=== PATIENT | female | born 1950 | race Caucasian/White ===

== ENCOUNTER → 2020-04-23 10:49 | Outpatient (BNVA) | payer MEDICARE, OTHER, SELFPAY | PROVIDERS: PCP Internal Medicine; Referring Provider Internal Medicine; Visit Provider Internal Medicine | DX: M81.0 Age-related osteoporosis without current pathological fracture (principal); E21.3 Hyperparathyroidism, unspecified; E04.2 Nontoxic multinodular goiter; E55.9 Vitamin D deficiency, unspecified | CPT/HCPCS: Q3014 ==

== ENCOUNTER 2020-04-24 13:07 | Outpatient (REF) | payer MEDICARE, OTHER, SELFPAY ==
[2020-04-24 15:12] LABS: Blood Urea Nitrogen 21 mg/dL (9-16); Calcium 9.2 mg/dL (8.4-10.2); Estimated Glomerular Filt Rate 49
[2020-04-24 15:36] LABS: Vitamin D 25-OH Total 39.5 ng/mL (>30)
[2020-04-25 20:37] LABS: Calcium (PTHI) 9.7 mg/dL (8.6-10.4); PTHI 46 pg/mL (14-64)
== END 2020-04-24 13:08 | disposition home or self-care (01) ==
LOC: HO.LAB 13:07
PROVIDERS: PCP Internal Medicine; Visit Provider Internal Medicine
DX: M81.0 Age-related osteoporosis without current pathological fracture (principal); E55.9 Vitamin D deficiency, unspecified
CPT/HCPCS: 82040; 82306; 82310; 82565; 83970; 84520

== ENCOUNTER 2020-05-16 15:36 | Outpatient (REF) | payer MEDICARE, OTHER, SELFPAY ==
--- NOTE | 2020-05-16 15:40 | MM_ITS ---
EXAMINATION: MM SCREENING DIGITAL BREAST TOMOSYNTHESIS, BILATERAL CLINICAL INFORMATION: Screening. Asymptomatic. The lifetime risk of breast cancer based on the Tyrer-Cuzick Model is 4.7%. COMPARISON: Mammography: May 11, 2019 and studies dating back to April 29, 2013 TECHNIQUE: Digital breast tomosynthesis is performed in both the craniocaudal and mediolateral oblique views along with computer-aided detection (CAD). Synthesized 2D images are generated from the tomosynthesis. FINDINGS: The breasts are extremely dense, which lowers the sensitivity of mammography (ACR BI-RADS breast composition Category d). There are no significant masses, abnormal calcifications, or other abnormalities. MM/MM tomosynthesis screening BI IMPRESSION: There are no significant changes from prior study. ASSESSMENT: BI-RADS 1: Negative RECOMMENDATION: Routine annual mammography screening. This patient's information was entered into a reminder system with a target due date for their next mammogram.
== END 2020-05-16 15:37 | disposition home or self-care (01) ==
LOC: HO.MAMMO 15:36
PROVIDERS: PCP Internal Medicine; Visit Provider Internal Medicine
DX: Z12.31 Encounter for screening mammogram for malignant neoplasm of breast (principal)
CPT/HCPCS: 77063; 77067

== ENCOUNTER 2020-05-21 12:10 | Outpatient (REF) | payer MEDICARE, OTHER, SELFPAY ==
[2020-05-21 13:12] LABS: Blood Urea Nitrogen 20 mg/dL (9-16); Estimated Glomerular Filt Rate 55
== END 2020-05-21 12:11 | disposition home or self-care (01) ==
LOC: HO.MDS 12:10
PROVIDERS: PCP Internal Medicine; Visit Provider Internal Medicine
DX: M81.0 Age-related osteoporosis without current pathological fracture (principal)
CPT/HCPCS: 82565; 84520; 96365; J3489

== ENCOUNTER 2020-10-18 10:48 | Outpatient (REF) | payer MEDICARE, OTHER, SELFPAY ==
[2020-10-18 11:32] LABS: MANUAL DIFF FLAG NO
[2020-10-18 11:36] LABS: Basophils Percent Auto 0.8 % (0-2); Eosinophils Absolute Auto 0.1 X10*3/uL (0.0-0.4); Eosinophils Percent Auto 1.6 % (0-4); Hematocrit 45.1 % (37-47); Hemoglobin 14.7 g/dl (12.0-16.0); Imm Gran Abs Auto 0.01 X10*3/uL (0.00-0.03); Imm Gran Pct Auto 0.2 % (0.0-0.4); Lymphocytes Absolute Auto 1.8 X10*3/uL (1.2-4.9); Lymphocytes Percent Auto 37.6 % (20-40); Mean Corpuscular HGB Conc 32.6 g/dl (31.0-35.0); Mean Corpuscular Hemoglobin 29.6 pg (27.0-33.0); Mean Corpuscular Volume 90.9 fL (80-98); Mean Platelet Volume 10.7 fL (9.4-12.3); Monocytes Absolute Auto 0.3 X10*3/uL (0.1-1.2); Monocytes Percent Auto 6.5 % (2-11); Neutrophils Absolute Auto 2.6 X10*3/uL (2.0-8.3); Neutrophils Percent Auto 53.3 % (45-73); Platelet Count 210 X10*3/uL (160-400); Red Blood Count 4.96 X10*6/uL (4.20-5.50); Red Cell Distribution Width 14.8 % (11.0-16.0); White Blood Count 4.9 X10*3/uL (4.8-10.8)
[2020-10-18 12:25] LABS: TSH reflex Free T4 3.83 uIU/mL (0.32-4.0)
[2020-10-18 12:27] LABS: Vitamin D 25-OH Total 35.7 ng/mL (>30)
[2020-10-18 12:40] LABS: Alanine Aminotransferase 26 U/L (0-31); Alkaline Phosphatase 75 U/L (39-117); Anion Gap 13 (12-20); Aspartate Amino Transferase 23 U/L (5-31); Bilirubin Total 0.5 mg/dL (0.0-1.0); Blood Urea Nitrogen 17 mg/dL (9-16); Calcium 9.9 mg/dL (8.4-10.2); Carbon Dioxide 29 mmol/L (22-29); Cholesterol 219 mg/dL; Estimated Glomerular Filt Rate 49; Glucose Fasting 90 mg/dL (60-99); HDL Cholesterol 58 mg/dL; LDL Cholesterol Calculated 132 mg/dl; Potassium 4.6 mmol/L (3.3-5.1); Sodium 140 mmol/L (135-145); Total Protein 7.2 g/dL (6.5-8.0); Triglycerides 145 mg/dL
[2020-10-18 12:45] LABS: Chloride 103 mmol/L (96-108); Folate > 20.0 ng/mL (> or = 4.0); Vitamin B12 1356 pg/mL (200-900)
[2020-10-19 14:22] LABS: Calcium (PTHI) 9.7 mg/dL (8.6-10.4); PTHI 51 pg/mL (14-64)
[2020-10-22 14:46] LABS: Vitamin D 25-OH, D2 <4 ng/mL; Vitamin D 25-OH, D3 40 ng/mL; Vitamin D 25-OH, Total 40 ng/mL (30-100)
== END 2020-10-18 10:49 | disposition home or self-care (01) ==
LOC: HO.LAB 10:48
PROVIDERS: Absent Provider Internal Medicine; PCP Internal Medicine; Visit Provider Internal Medicine
DX: D64.9 Anemia, unspecified (principal); M81.0 Age-related osteoporosis without current pathological fracture; E78.5 Hyperlipidemia, unspecified; E04.2 Nontoxic multinodular goiter; R53.83 Other fatigue; E55.9 Vitamin D deficiency, unspecified
CPT/HCPCS: 36415; 80053; 80061; 82306; 82607; 82746; 83970; 84100; 84443; 85025

== ENCOUNTER 2020-10-19 12:42 | Outpatient (REF) | payer MEDICARE, OTHER, SELFPAY ==
[2020-10-24 17:27] LABS: N-Telopeptide 13 (see note); NTXCreaRU 71 mg/dL (20-275)
== END 2020-10-19 12:43 | disposition home or self-care (01) ==
LOC: HO.LNP 12:42
PROVIDERS: Visit Provider Internal Medicine
DX: M81.0 Age-related osteoporosis without current pathological fracture (principal)
CPT/HCPCS: 82523

== ENCOUNTER → 2020-10-22 12:14 | Outpatient (BNVA) | payer MEDICARE, OTHER, SELFPAY | PROVIDERS: PCP Internal Medicine; Visit Provider Internal Medicine | DX: Z13.89 Encounter for screening for other disorder (principal) | CPT/HCPCS: Q3014 ==

== ENCOUNTER 2020-12-06 08:22 | Outpatient (REF) | payer MEDICARE, OTHER, SELFPAY ==
--- NOTE | ~2020-12-06 | US_ITS ---
EXAMINATION: US COMPLETE ABDOMEN WITH LIVER ELASTOGRAPHY CLINICAL INFORMATION: Abdominal distention COMPARISON: Previous CT of the abdomen and pelvis June 2018 TECHNIQUE: Real-time imaging of the abdominal viscera. Noninvasive ultrasound liver fibrosis assessment is performed using Sophia ElastPQ point quantification shear wave elastography (pSWE) with a C5-2 MHz transducer. Multiple elastography samples are obtained. FINDINGS: PANCREAS: The visualized pancreatic head and body are normal in appearance. The remainder of the pancreas is obscured from visualization by the overlying bowel gas. ABDOMINAL AORTA: The proximal, middle, and distal aortic segments are normal in caliber. INFERIOR VENA CAVA: Visualized portions are normal. LIVER: Normal. The liver demonstrates normal size, contour and echogenicity. No focal lesion or intrahepatic biliary duct dilatation. The right lobe measures 13.6 cm in length. The left lobe measures 8.5 cm in length. Portal flow is normal/hepatopedal. Shear wave liver elastography median stiffness is 1.2 m/s (reference: normal median stiffness is 1.3 m/s or less). IQR/median stiffness to assess sampling precision is 0.2 (reference: good quality data set is IQR/median stiffness of 0.15 or less). GALLBLADDER: Normal. The gallbladder is physiologically distended without evidence of stones, sludge, polyps, wall thickening or pericholecystic fluid. COMMON BILE DUCT: Normal in caliber measuring 0.4 cm in diameter. RIGHT KIDNEY: There is renal cortical thinning. There are multiple echogenic foci questionable for cyst wall interfaces 4 microcystic kidney disease.. The kidney measures 8.7 cm in maximum dimension. LEFT KIDNEY: There is renal cortical thinning. There are multiple echogenic foci questionable for cyst wall interfaces or microcystic kidney disease. The kidney measures 9.2 cm in maximum dimension. SPLEEN: Normal. The spleen measures 7.6 cm in maximum dimension. FREE FLUID: None. US/US abdomen comp w elastography IMPRESSION: 1. Impression: Normal-appearing liver. Small kidneys with bilateral renal cortical thinning and question microcystic kidney disease. Limited visualization of the pancreas. 2. Liver elastography: Slightly limited due to sampling. Normal liver stiffness. REFERENCE: Society of Radiologists in Ultrasound Liver Stiffness Thresholds (2020): LIVER STIFFNESS THRESHOLDS: *Liver Stiffness equal or less than 1.3 m/s: High probability of being normal. *Liver Stiffness less than 1.7 m/s: In the absence of other known clinical signs, rules out compensated advanced chronic liver disease. *Liver Stiffness 1.7-2.1 m/s: Suggestive of compensated advanced chronic liver disease but need further test for confirmation. *Liver Stiffness over 2.1 m/s: Rules in compensated advanced chronic liver disease. *Liver Stiffness over 2.4 m/s: Suggestive of clinically significant portal hypertension. QUALITY OF DATA SET: *IQR/Median value equal or less than 0.15 implies a quality data set. *IQR/Median value over 0.15 implies a poor quality data set. SIGNIFICANT CHANGE FROM PRIOR EXAM: Significant change if liver stiffness measurement is 10% or greater from prior exam. OTHER CONSIDERATIONS: The stage of liver fibrosis may be overestimated in the setting of acute hepatitis, liver inflammation, elevated liver function tests, hepatic vascular congestion, obstructive cholestasis, non-fasting state, and infiltrative diseases such as amyloidosis and lymphoma. In some patients with NAFLD, the liver stiffness thresholds for compensated advanced chronic liver disease may be lower. In causes other than viral hepatitis and NAFLD, liver stiffness thresholds are not well established.
== END 2020-12-06 08:23 | disposition home or self-care (01) ==
LOC: HO.US 08:22
PROVIDERS: Visit Provider Internal Medicine
DX: R14.0 Abdominal distension (gaseous) (principal)
CPT/HCPCS: 76705; 76981

== ENCOUNTER 2021-01-03 12:39 | Outpatient (REF) | payer MEDICARE, OTHER, SELFPAY ==
--- NOTE | ~2021-01-03 | MM_ITS ---
EXAMINATION: BONE DENSITOMETRY CLINICAL INDICATION: Age-related osteoporosis without current pathological fracture. Vertebral augmentation L2. COMPARISON: Previous BD dated 03/16/2018 and baseline BD dated 01/05/2000. CT lumbar spine 07/09/2018. TECHNIQUE: Using a [employer] DXA System (software version: 13.1) manufactured by [employer], dual-energy x-ray absorptiometry was performed of the lumbar spine and left hip. The images are of good technical quality. Summary results are attached. FINDINGS: AP SPINE L1-L4 (excluding L2): The data of L1-L4 has been changed to exclude the L2 vertebral body, because vertebral augmentation at this level may cause overestimation of lumbar spine density. Current: BMD 1.048 g/cm2, Z-score 0.4, T-score -1.0, normal, 11.1% increase from previous, 2.1% increase from baseline (<5% change is not significant). Prior: BMD 0.943 g/cm2. Baseline: BMD 1.026 g/cm2. LEFT FEMUR, NECK: Current: BMD 0.611 g/cm2, Z-score -1.6, T-score -3.1, osteoporosis. Prior: BMD 0.538 g/cm2. Baseline: BMD 0.602 g/cm2. LEFT FEMUR, TOTAL: Current: BMD 0.768 g/cm2, Z-score -0.7, T-score -1.9, osteopenia, 4.8% increase from previous, 0.4% decrease from baseline (<5% change is not significant). Prior: BMD 0.733 g/cm2. Baseline: BMD 0.771 g/cm2. IDENTIFIED RISK FACTORS: Osteoporosis, menopause. HISTORY OF FRACTURE: None listed. MEDICATIONS: None listed. MM/XR DEXA axial skeleton IMPRESSION: 1. DIAGNOSIS: Osteoporosis based on the lowest T-score value of -3.1 in the femoral neck applying World Health Organization criteria. 2. 10-YEAR FRACTURE RISK PREDICTION, FRAX: Major osteoporotic fracture (clinical spine, forearm, hip or shoulder) 10.4%. Hip fracture 3.3%. 3. Treatment Recommendations: NOF guidelines recommend consideration for treatment in postmenopausal women and men age 50 and older presenting with the following: -A hip or vertebral (clinical or morphometric) fracture. -T-score less than or equal to -2.5 at the femoral neck or spine after appropriate evaluation to exclude secondary causes. -Low bone mass at the hip or spine and a 10-year fracture probability by FRAX of greater than or equal to 3% for hip fracture or greater than or equal to 20% for major osteoporotic fracture based on the [place] adapted WHO algorithm. 4. Other Recommendations: All treatment decisions require clinical judgment and consideration of individual patient factors, including patient preferences, comorbidities, previous drug use, risk factors not captured in the FRAX model (e.g. frailty, falls, vitamin D deficiency, increased bone turnover, interval significant decline in bone density) and possible under or overestimation of fracture risk by FRAX. Additional medical evaluation for secondary cause of low bone mineral density may be appropriate. FUTURE SCAN RECOMMENDATION: People with diagnosed cases of osteoporosis or at high risk for fracture should have regular bone mineral density tests. For patients eligible for Medicare, routine testing is allowed once every 2 years. The testing frequency can be increased to one year for patients who have rapidly progressing disease, those who are receiving or discontinuing medical therapy to restore bone mass, or have additional risk factors.
== END 2021-01-03 12:40 | disposition home or self-care (01) ==
LOC: HO.MAMMO 12:39
PROVIDERS: Visit Provider Internal Medicine
DX: Z13.820 Encounter for screening for osteoporosis (principal); M81.0 Age-related osteoporosis without current pathological fracture; Z78.0 Asymptomatic menopausal state
CPT/HCPCS: 77080

== ENCOUNTER 2021-01-11 13:38 | Emergency (ER) | payer MEDICARE, OTHER, SELFPAY ==
--- NOTE | ~2021-01-11 | CT_ITS ---
EXAMINATION: CT BRAIN AND CT CERVICAL SPINE WITHOUT CONTRAST. CLINICAL INFORMATION: Fall, pain left side. Headache COMPARISON: None TECHNIQUE: 5 mm thin axial and reformatted 2 mm thin sagittal and coronal images of brain were obtained. Subsequently axial 3 mm thin and reformatted 2 mm thin sagittal and coronal images of cervical spine were obtained. DLP 955. FINDINGS: Brain: There is no acute intra-axial, extra-axial bleed, masses or midline shift. There is no acute infarct in evolution. There is a punctate right basal ganglia lacunar infarct of indeterminate age. The lateral ventricles are symmetrical in size and configuration without enlargement. The [place] to white matter differentiation is maintained normal. There is mild hypodensity in the periventricular white matter of both frontal lobes likely chronic small vessel ischemic changes. Bone windows reveal no calvarial abnormality. Bilateral paranasal sinuses and mastoid air cells are well-aerated. Cervical spine: There is normal cervical lordosis. The vertebral heights, alignment and disc heights are normal. The craniovertebral junction and the C1-C2 alignment is normal. There is no visible acute fracture, dislocation or lytic process seen. The prevertebral and paravertebral soft tissues are normal. A prominent left external jugular vein is noted. The left jugular vein is small and hypoblastic. There is mild left apical scarring or atelectasis. CT/CT cervical spine wo con IMPRESSION: No acute intracranial process seen. There is no acute fracture, dislocation or subluxation in cervical spine. Mild left apical pleural thickening.
--- NOTE | ~2021-01-11 | CT_ITS ---
EXAMINATION: CT BRAIN AND CT CERVICAL SPINE WITHOUT CONTRAST. CLINICAL INFORMATION: Fall, pain left side. Headache COMPARISON: None TECHNIQUE: 5 mm thin axial and reformatted 2 mm thin sagittal and coronal images of brain were obtained. Subsequently axial 3 mm thin and reformatted 2 mm thin sagittal and coronal images of cervical spine were obtained. DLP 955. FINDINGS: Brain: There is no acute intra-axial, extra-axial bleed, masses or midline shift. There is no acute infarct in evolution. There is a punctate right basal ganglia lacunar infarct of indeterminate age. The lateral ventricles are symmetrical in size and configuration without enlargement. The medina to white matter differentiation is maintained normal. There is mild hypodensity in the periventricular white matter of both frontal lobes likely chronic small vessel ischemic changes. Bone windows reveal no calvarial abnormality. Bilateral paranasal sinuses and mastoid air cells are well-aerated. Cervical spine: There is normal cervical lordosis. The vertebral heights, alignment and disc heights are normal. The craniovertebral junction and the C1-C2 alignment is normal. There is no visible acute fracture, dislocation or lytic process seen. The prevertebral and paravertebral soft tissues are normal. A prominent left external jugular vein is noted. The left jugular vein is small and hypoblastic. There is mild left apical scarring or atelectasis. CT/CT head/brain wo con IMPRESSION: No acute intracranial process seen. There is no acute fracture, dislocation or subluxation in cervical spine. Mild left apical pleural thickening.
[2021-01-11 13:57] VITALS: BP 122/82; BP 135/85; PULSE 92; PULSE 95; RESP 16; TEMP 36.6; O2SAT 96; BMI 32.1
--- NOTE | 2021-01-11 14:01 | ED_ITS ---
HPI - Fall General Chief Complaint: Fall Stated Complaint: M Fall Head lac Time Seen by Provider: 01/11/21 14:00 Source: patient and EMS Mode of arrival: EMS Limitations: no limitations History of Present Illness HPI Narrative: 70 y/o female with history of depression and osteoporosis presents to the ED from home via EMS with headache and laceration after she sustained a mechanical fall at home just [employer]. She reports tripping on the grass, falling down and hitting the left side of her head on a cement block in her yard. She reports a laceration that was bleeding initially but has since stopped. She did not lose consciousness. She is not blood thinners. She did not sustain any other injuries. She was able to get up after the fall. MD complaint: fall Onset (ago): minute(s) (30) Fall from: standing Fall witnessed: yes, by bystander Place fall occurred: home Loss of consciousness: none Prolonged down time: no Symptoms prior to fall: none Context: tripped/slipped Location of injury: head Severity: moderate Quality: aching Associated symptoms (after fall): headache Related Data Home Medications Medication Instructions Recorded Confirmed donepezil 5 mg tablet 5 mg PO BEDTIME 04/23/20 10/29/20 memantine 5 mg tablet 5 mg PO BID 04/23/20 10/29/20 doxepin 25 mg capsule 75 mg PO BEDTIME cap 10/22/20 10/29/20 lorazepam 0.5 mg tablet 1 mg PO TID PRN tab 10/22/20 10/29/20 thiamine HCl (vitamin B1) 100 mg 100 mg PO BID tab 10/22/20 10/29/20 tablet vortioxetine 10 mg tablet 20 mg PO DAILY tab 10/22/20 10/29/20 (Trintellix) zolpidem 5 mg tablet 12.5 mg PO BEDTIME PRN tab 10/22/20 10/29/20 Previous Rx's Medication Instructions Recorded zoledronic acid 5 mg/100 mL in See Rx Instructions IV ONCE #100 ml 04/26/20 mannitol 5 %-water intravenous piggybck (Reclast) nystatin 100,000 unit/gram topical 1 appl TOPICAL DAILY 30 Days #30 g 06/04/20 cream Allergies Allergy/AdvReac Type Severity Reaction Status Date / Time risperidone [From Risperdal] Allergy Intermediate UNKNOWN Verified 10/29/20 13:59 Sulfa (Sulfonamide Allergy Intermediate rash Verified 10/29/20 13:59 Antibiotics) From BENADRYL Allergy Intermediate DIZZY Uncoded 10/29/20 13:59 Review of Systems Constitutional: Constitutional: Denies chills, Denies fever(s), Denies frequent falls and Reports headache(s) Eyes: Eyes: Denies no additional eye complaints ENT: Denies vertigo, Denies dizziness, Reports headache(s), Denies mouth pain and Denies neck pain Cardiovascular: Cardiovascular: Denies chest pain and Denies syncope Respiratory: Respiratory: Denies cough and Denies pain on inspiration Gastrointestinal: Gastrointestinal: Denies abdominal pain, Denies nausea and Denies vomiting Musculoskeletal: Musculoskeletal: Denies back pain, Denies myalgias, Denies arthralgias, Denies limited range of motion and Denies neck pain Integumentary/Breasts: Skin/Breast: Denies lesions Neurologic: Denies confusion, Denies vertigo, Denies dizziness, Denies syncope, Denies frequent falls, Reports headache(s), Denies focal weakness and Denies memory loss Psychiatric: Psychiatric: Denies confusion and Denies memory loss Hematologic/Lymphatic: Hematologic/Lymphatic: Denies easy bleeding and Denies easy bruising PMFSH Past Medical History Attestation statement: The following information was validated with the patient. Medical History Abdominal distention Depression with anxiety Hyperparathyroidism Multinodular thyroid Osteoporosis Vitamin D deficiency Weight gain Surgical History Hx of section Hx of colonoscopy Hx of kyphoplasty Family History Family History Father Myocardial infarction CVD (cardiovascular disease) Mother Dementia Alzheimer disease Social History Social History Alcohol intake: never Advance Directives: No Advance Directives Information Provided: Yes Physical Exam Vital Signs: Vital Signs: Last Vital Signs Temp 98 F 01/11/21 13:57 Pulse 95 01/11/21 13:57 Resp 16 01/11/21 13:57 BP 135/85 01/11/21 13:57 Pulse Ox 96 01/11/21 13:57 Body Mass Index 32.1 Appearance: Alert. Oriented X3. No acute distress. Head: normocephalic, 1.5 cm laceration in the left parietal area without active bleeidng, no palpable skull fracture. Eyes: Pupils equal, round and reactive to light. EOMI, no nystagmus, no facial deformity, no tenderness ENT: Pharynx normal. Neck: Normal inspection. Neck supple. CVS: Normal heart rate and rhythm. Pulses normal. Respiratory: No respiratory distress. Breath sounds normal. Abdomen: Soft and nontender. +BS x4 Skin: Skin warm and dry. Normal skin color. Normal skin turgor. No rashes. Extremities: Atraumatic. No joint deformity or tenderness. pelvis is stable and nontender. No lower extremity edema. Neuro: Oriented X 3. No motor deficit. No sensory deficit. Const: General: No confusion Orientation/consciousness: No confusion Neuro: General: No confusion Course Course Course Narrative: 70 y/o female presenting with left sided headache and small scalp laceration s/p mechanical fall. Will require a few nell for closure. She is not on anticoagulation, however given headache will get CT head/neck to r/o traumatic injury. No other injuries or complaints. Reevaluation(s) Reevaluation #1: CT scan without acute traumatic injuries. C-spine cleared. No neck pain. She is stable for d/c home with outpatient follow up. Wound care d iscussed. Procedures Laceration Laceration 1: Site: scalp Side (If applicable): left Size (cm): 3 Description: linear Depth: simple, single layer Pre-repair: irrigated extensively Skin layer closed with: other (3 nell) MDM - Fall Medical Records Attestation: I reviewed the patient's medical records. Critical Care Time Critical Care Time Critical Care Time: No Discharge Plan Discharge Clinical Impression: Laceration of scalp Qualifiers: Encounter type: initial encounter Qualified Code(s): S01.01XA - Laceration without foreign body of scalp, initial encounter Fall Qualifiers: Encounter type: initial encounter Qualified Code(s): W19.XXXA - Unspecified fa ll, initial encounter Patient Disposition: Home, Self-Care Instructions: Fall Prevention for Older Adults (ED), Staple Care (ED), Head Laceration (ED) Additional Instructions: Your CT scans were normal. 3 nell were placed to close the small wound on your scalp. They will need to be removed in 10 days. Come back to the ER for this or see your doctor. Take tylenol and/or motrin as needed for pain. Use ice to the area several times per day as needed for pain. If you develop new or worsening symptoms call 911 or come back to the ER for further evaluation. Prescriptions: No Action zoledronic [id number] [Reclast] 5 mg/100 mL piggyback See Rx Instructions IV ONCE Qty: 100 RF: 0 nystatin 100,000 unit/gram cream 1 appl topical DAILY 30 Days Qty: 30 RF: 1 thiamine HCl (vitamin B1) 100 mg tablet 100 mg PO BID RF: 0 doxepin 25 mg capsule 75 mg PO BEDTIME RF: 0 donepezil 5 mg tablet 5 mg PO BEDTIME RF: 0 memantine 5 mg tablet 5 mg PO BID RF: 0 lorazepam 0.5 mg tablet 1 mg PO TID PRNRF: 0 Trintellix 10 mg tablet 20 mg PO DAILY RF: 0 zolpidem 5 mg tablet 12.5 mg PO BEDTIME PRNRF: 0
[2021-01-11] MEDS: Diphth,Pertus(ACell),Tet Adult 0.5 ML SYRINGE IM (15:59)
== END 2021-01-11 16:06 | disposition home or self-care (01) ==
PROVIDERS: Emergency Provider Emergency Medicine Emergency Medical Services; PCP Internal Medicine
DX: S01.01XA Laceration without foreign body of scalp, initial encounter (principal); R51.9 Headache, unspecified; W01.198A Fall on same level from slipping, tripping and stumbling with subsequent striking against other object, initial encounter; Y93.9 Activity, unspecified; Y92.096 Garden or yard of other non-institutional residence as the place of occurrence of the external cause; Y99.9 Unspecified external cause status
CPT/HCPCS: 12002; 70450; 72125; 90471; 90715; 99283; 99284

== ENCOUNTER 2021-01-14 14:53 | Outpatient (REF) | payer MEDICARE, OTHER, SELFPAY ==
--- NOTE | ~2021-01-14 | US_ITS ---
EXAMINATION: US THYROID CLINICAL INFORMATION: Nontoxic multinodular goiter. COMPARISON: Ultrasound soft tissue head/neck thyroid dated 01/24/2020 and 12/15/2018. TECHNIQUE: Linear transducer grayscale and color Doppler examination with attention to the region of the thyroid. FINDINGS: SIZE: Measurements of the thyroid lobes and nodules are given in sagittal, anteroposterior and transverse dimensions respectively. Right Thyroid Lobe: 4.0 x 1.3 x 1.4 cm, volume 3.9 mL. Previously 3.8 x 1.1 x 1.3 cm, volume 2.9 mL. Parenchyma: The gland echotexture is homogeneous. Thyroid vascularity is normal. Left Thyroid Lobe: 3.0 x 1.1 x 1.5 cm, volume 2.5 mL. Previously 3.7 x 1.3 x 1.3 cm, volume 3.4 mL. Parenchyma: The gland echotexture is homogeneous. Thyroid vascularity is normal. Isthmus: 0.26 cm in maximum AP dimension. Previously 0.2 cm. Estimated total number of nodules greater than or equal to 1 cm: 0. [employer] nodules are described as follows: 1. Location: Right inferior. Size: 0.16 x 0.13 x 0.20 cm, volume 0.002 mL. Previously: 0.2 x 0.2 x 0.2 cm, volume 0.004 mL. Nodule characteristics: Composition: Cystic(0). ACR TI-RADS total points: 0 Previous: n/a ACR TI-RADS category: 1 Previous: n/a Significant change in size (>/= 20% in 2 dimensions and minimal increase of 2 mm or 50% or greater increase in volume): No Change in features: No Change in ACR TI-RADS risk category: No NODES: No lymphadenopathy is seen in the tissue surrounding the thyroid gland. US/US thyroid IMPRESSION: 1. There is a normal-sized thyroid gland with normal echogenicity and echotexture. 2. There is no significant change in the right inferior thyroid nodule. TR1. ACR TI-RADS RECOMMENDATION REFERENCE: Ultrasound-guided fine-needle aspiration, followup ultrasound, no further follow up. * TR1 (0 point) and TR 2 (2 points): No FNA or follow up * TR3 (3 points): FNA if more than or equal to 2.5 cm in maximum dimension, followup ultrasound in 1, 3 and 5 years if 1.5 to 2.4 cm in maximum dimension. * TR4 (4-6 points): FNA if more than or equal to 1.5 cm in maximum dimension, followup ultrasound in 1, 2, 3 and 5 years if 1 to 1.4 cm in maximum dimension. * TR5 (more than or equal to 7 points): FNA if more than or equal to 1 cm in maximum dimension, followup ultrasound every year for 5 years if 0.5 to 0.9 cm in maximum dimension. * TR3, TR4 or TR5 nodules that are below the size threshold for follow up receive no follow up.
== END 2021-01-14 14:54 | disposition home or self-care (01) ==
LOC: HO.US 14:53
PROVIDERS: Visit Provider Internal Medicine
DX: E04.2 Nontoxic multinodular goiter (principal)
CPT/HCPCS: 76536

== ENCOUNTER → 2021-05-07 11:45 | Outpatient (REF) | payer MEDICARE, OTHER, SELFPAY ==
--- NOTE | 2021-05-07 11:52 | ECG_ITS ---
Test Reason : on cloxepin Blood Pressure : / mmHG Vent. Rate : 076 BPM Atrial Rate : 076 BPM P-R Int : 156 ms QRS Dur : 076 ms QT Int : 364 ms P-R-T Axes : 064 027 052 degrees QTc Int : 409 ms Normal sinus rhythm Normal ECG When compared with ECG of 04-MAR-2019 12:41, T wave amplitude has decreased in Lateral leads Referred By: Broderick Willett Electronically Signed By:BRENDA GRIFFIN MD
[2021-05-07 14:32] LABS: Alanine Aminotransferase 27 U/L (0-31); Albumin Level 3.9 g/dL (3.5-5.0); Alkaline Phosphatase 77 U/L (39-117); Anion Gap 13 (12-20); Aspartate Amino Transferase 23 U/L (5-31); Bilirubin Total 0.4 mg/dL (0.0-1.0); Blood Urea Nitrogen 15 mg/dL (9-16); Calcium 9.7 mg/dL (8.4-10.2); Carbon Dioxide 25 mmol/L (22-29); Chloride 104 mmol/L (96-108); Estimated Glomerular Filt Rate 48; Glucose Random 109 mg/dL (60-115); Phosphorus 2.9 mg/dL (2.7-4.5); Potassium 4.2 mmol/L (3.3-5.1); Sodium 138 mmol/L (135-145); Total Protein 7.1 g/dL (6.5-8.0)
[2021-05-07 14:38] LABS: Free T4 (Free Thyroxine) 0.89 ng/dL (0.71-1.85); Thyroid Stimulating Hormone 4.92 uIU/mL (0.32-4.0); Vitamin D 25-OH Total 37.2 ng/mL (>30)
[2021-05-08 13:41] LABS: Calcium (PTHI) 9.4 mg/dL (8.6-10.4); PTHI 39 pg/mL (14-64)
== END ==
LOC: HO.CARD 11:45
PROVIDERS: Absent Provider Psychiatry & Neurology Psychiatry; PCP Internal Medicine; Visit Provider Internal Medicine
DX: F33.41 Major depressive disorder, recurrent, in partial remission (principal); M81.0 Age-related osteoporosis without current pathological fracture; E04.2 Nontoxic multinodular goiter; E55.9 Vitamin D deficiency, unspecified; Z79.899 Other long term (current) drug therapy
CPT/HCPCS: 36415; 80053; 82306; 83970; 84100; 84439; 84443; 93005

== ENCOUNTER 2021-05-08 14:02 | Outpatient (REF) | payer MEDICARE, OTHER, SELFPAY ==
[2021-05-14 06:11] LABS: N-Telopeptide 10 (see note); NTXCreaRU 63 mg/dL (20-275)
== END 2021-05-08 14:03 | disposition home or self-care (01) ==
LOC: HO.LNP 14:02
PROVIDERS: Visit Provider Internal Medicine
DX: M81.0 Age-related osteoporosis without current pathological fracture (principal)
CPT/HCPCS: 82523

== ENCOUNTER 2021-05-21 13:24 | Outpatient (REF) | payer MEDICARE, OTHER, SELFPAY ==
--- NOTE | ~2021-05-21 | MM_ITS ---
EXAMINATION: MM SCREENING DIGITAL BREAST TOMOSYNTHESIS, BILATERAL CLINICAL INFORMATION: Screening. Asymptomatic. The lifetime risk of breast cancer based on the Tyrer-Cuzick Model is 4%. COMPARISON: Mammography: 05/16/2020, 05/11/2019, 03/20/2017 TECHNIQUE: Digital breast tomosynthesis is performed in both the craniocaudal and mediolateral oblique views along with computer-aided detection (CAD). Synthesized 2D images are generated from the tomosynthesis. FINDINGS: The breasts are heterogeneously dense, which may obscure small masses (ACR BI-RADS breast composition Category c). There are no significant masses, abnormal calcifications, or other abnormalities. Parenchymal pattern is similar to prior studies. No developing density. No significant changes. MM/MM tomosynthesis screening BI IMPRESSION: No mammographic evidence of malignancy. ASSESSMENT: BI-RADS 1: Negative RECOMMENDATION: Routine annual mammography screening. This patient's information was entered into a reminder system with a target due date for their next mammogram.
== END 2021-05-21 13:25 | disposition home or self-care (01) ==
LOC: HO.MAMMO 13:24
PROVIDERS: Visit Provider Internal Medicine
DX: Z12.31 Encounter for screening mammogram for malignant neoplasm of breast (principal)
CPT/HCPCS: 77063; 77067

== ENCOUNTER → 2021-06-05 12:43 | Outpatient (BNVA) | payer MEDICARE, OTHER, SELFPAY | PROVIDERS: PCP Internal Medicine; Visit Provider Internal Medicine | DX: Z13.89 Encounter for screening for other disorder (principal) | CPT/HCPCS: Q3014 ==

== ENCOUNTER 2021-07-19 13:51 | Outpatient (REF) | payer MEDICARE, OTHER, SELFPAY ==
[2021-07-19 15:25] LABS: Alanine Aminotransferase 29 U/L (0-31); Albumin Level 3.9 g/dL (3.5-5.0); Alkaline Phosphatase 75 U/L (39-117); Anion Gap 12 (12-20); Aspartate Amino Transferase 24 U/L (5-31); Bilirubin Total 0.4 mg/dL (0.0-1.0); Blood Urea Nitrogen 16 mg/dL (9-16); Calcium 9.7 mg/dL (8.4-10.2); Carbon Dioxide 24 mmol/L (22-29); Chloride 106 mmol/L (96-108); Estimated Glomerular Filt Rate 56; Glucose Random 120 mg/dL (60-115); Potassium 4.2 mmol/L (3.3-5.1); Sodium 138 mmol/L (135-145); Total Protein 7.2 g/dL (6.5-8.0)
[2021-07-19 15:29] LABS: Phosphorus 2.6 mg/dL (2.7-4.5)
[2021-07-19 15:47] LABS: Free T4 (Free Thyroxine) 0.94 ng/dL (0.71-1.85); Vitamin D 25-OH Total 33.5 ng/mL (>30)
[2021-07-23 13:56] LABS: Calcium (PTHI) 9.8 mg/dL (8.6-10.4); PTHI 50 pg/mL (14-64)
== END 2021-07-19 13:52 | disposition home or self-care (01) ==
LOC: HO.LAB 13:51
PROVIDERS: PCP Internal Medicine; Visit Provider Internal Medicine
DX: E55.9 Vitamin D deficiency, unspecified (principal); M81.0 Age-related osteoporosis without current pathological fracture; E03.9 Hypothyroidism, unspecified; E04.2 Nontoxic multinodular goiter
CPT/HCPCS: 36415; 80053; 82306; 83970; 84075; 84100; 84439; 84443

== ENCOUNTER 2021-07-20 09:48 | Outpatient (REF) | payer MEDICARE, OTHER, SELFPAY ==
[2021-07-24 17:45] LABS: N-Telopeptide 7 (see note); NTXCreaRU 41 mg/dL (20-275)
== END 2021-07-20 09:49 | disposition home or self-care (01) ==
LOC: HO.LNP 09:48
PROVIDERS: Visit Provider Internal Medicine
DX: E55.9 Vitamin D deficiency, unspecified (principal)
CPT/HCPCS: 82523

== ENCOUNTER → 2021-08-08 13:10 | Outpatient (BNVA) | payer MEDICARE, OTHER, SELFPAY | PROVIDERS: PCP Internal Medicine; Visit Provider Internal Medicine | DX: Z13.89 Encounter for screening for other disorder (principal) ==

== ENCOUNTER 2021-09-30 10:48 | Outpatient (REF) | payer MEDICARE, OTHER, SELFPAY ==
[2021-09-30 12:00] LABS: Estimated Average Glucose 120 mg/dL; Hemoglobin A1C 150.4791 umol/L; Hemoglobin A1c % 5.8 %
[2021-09-30 12:35] LABS: Cholesterol 226 mg/dL; Glucose Fasting 94 mg/dL (60-99); HDL Cholesterol 54 mg/dL; LDL Cholesterol Calculated 143 mg/dl; Triglycerides 149 mg/dL
== END 2021-09-30 10:49 | disposition home or self-care (01) ==
LOC: HO.LAB 10:48
PROVIDERS: PCP Internal Medicine; Visit Provider Nurse Practitioner Family
DX: Z00.00 Encounter for general adult medical examination without abnormal findings (principal); E11.9 Type 2 diabetes mellitus without complications; R63.5 Abnormal weight gain; E78.00 Pure hypercholesterolemia, unspecified
CPT/HCPCS: 36415; 80061; 82947; 83036

== ENCOUNTER 2021-10-29 11:45 | Outpatient (REF) | payer MEDICARE, OTHER, SELFPAY ==
[2021-10-29 13:51] LABS: Free T4 (Free Thyroxine) 1.01 ng/dL (0.71-1.85); Thyroid Stimulating Hormone 1.55 uIU/mL (0.32-4.0)
== END 2021-10-29 11:46 | disposition home or self-care (01) ==
LOC: HO.LAB 11:45
PROVIDERS: PCP Internal Medicine; Visit Provider Internal Medicine
DX: E03.9 Hypothyroidism, unspecified (principal); E04.2 Nontoxic multinodular goiter
CPT/HCPCS: 36415; 84439; 84443

== ENCOUNTER 2021-12-05 13:25 | Outpatient (REF) | payer MEDICARE, SELFPAY ==
[2021-12-05 15:43] LABS: Alanine Aminotransferase 26 U/L (0-31); Alkaline Phosphatase 84 U/L (39-117); Anion Gap 13 (12-20); Aspartate Amino Transferase 24 U/L (5-31); Bilirubin Total 0.4 mg/dL (0.0-1.0); Blood Urea Nitrogen 17 mg/dL (9-16); Calcium 9.7 mg/dL (8.4-10.2); Carbon Dioxide 27 mmol/L (22-29); Chloride 104 mmol/L (96-108); Estimated Glomerular Filt Rate 51; Glucose Random 89 mg/dL (60-115); Phosphorus 3.4 mg/dL (2.7-4.5); Potassium 4.5 mmol/L (3.3-5.1); Sodium 139 mmol/L (135-145); Total Protein 7.4 g/dL (6.5-8.0)
[2021-12-05 16:07] LABS: Free T4 (Free Thyroxine) 1.04 ng/dL (0.71-1.85); Thyroid Stimulating Hormone 1.66 uIU/mL (0.32-4.0); Vitamin D 25-OH Total 37.4 ng/mL (>30)
[2021-12-06 09:03] LABS: Calcium (PTHI) 9.8 mg/dL (8.6-10.4); PTHI 44 pg/mL (16-77)
[2021-12-07 22:22] LABS: Prot Elec - Albumin 3.7 g/dL (3.8-4.8); Prot Elec - Alpha1 0.3 g/dL (0.2-0.3); Prot Elec - Alpha2 0.9 g/dL (0.5-0.9); Prot Elec - Beta 1 0.5 g/dL (0.4-0.6); Prot Elec - Beta 2 0.6 g/dL (0.2-0.5); Prot Elec - Gamma 1.1 g/dL (0.8-1.7); Prot Elec - Total Protein 7.1 g/dL (6.1-8.1)
[2021-12-09 15:32] LABS: Alkaline Phosphatase Bone 9.1 mcg/L (5.6-29.0)
== END 2021-12-05 13:26 | disposition home or self-care (01) ==
LOC: HO.LAB 13:25
PROVIDERS: PCP Internal Medicine; Visit Provider Internal Medicine
DX: M81.0 Age-related osteoporosis without current pathological fracture (principal); E04.2 Nontoxic multinodular goiter; E55.9 Vitamin D deficiency, unspecified
CPT/HCPCS: 36415; 80053; 82306; 83970; 84075; 84100; 84165; 84439; 84443; Q3014

== ENCOUNTER 2021-12-12 14:07 | Outpatient (REF) | payer MEDICARE, SELFPAY ==
[2021-12-18 14:52] LABS: N-Telopeptide 22 (see note); NTXCreaRU 53 mg/dL (20-275)
== END 2021-12-12 14:08 | disposition home or self-care (01) ==
LOC: HO.LNP 14:07
PROVIDERS: Visit Provider Internal Medicine
DX: M81.0 Age-related osteoporosis without current pathological fracture (principal)
CPT/HCPCS: 82523

== ENCOUNTER 2022-01-31 15:18 | Outpatient (REF) | payer MEDICARE, SELFPAY ==
--- NOTE | 2022-01-31 15:32 | ECG_ITS ---
Test Reason : F33.41 Blood Pressure : / mmHG Vent. Rate : 075 BPM Atrial Rate : 075 BPM P-R Int : 146 ms QRS Dur : 074 ms QT Int : 384 ms P-R-T Axes : 041 011 044 degrees QTc Int : 428 ms Normal sinus rhythm Normal ECG When compared with ECG of 07-MAY-2021 11:59, No significant change was found Referred By: Broderick Willett Electronically Signed By:REMA MONTEMAYOR
[2022-01-31 16:22] LABS: Appearance Urine Clear; Color Urine Yellow; Glucose Urine UA Negative (Negative); Leukocyte Esterase Urine Trace (Negative); Nitrite Urine Negative (Negative); Specific Gravity - Urine 1.015 (1.005-1.025); Urine Blood Negative (Negative); Urine Ketones Negative (Negative); Urine Protein Negative (Neg-Trace)
[2022-01-31 16:25] LABS: Estimated Average Glucose 117 mg/dL; Hemoglobin A1c % 5.7 %
[2022-01-31 16:48] LABS: Alanine Aminotransferase 23 U/L (0-31); Albumin Level 3.8 g/dL (3.5-5.0); Alkaline Phosphatase 82 U/L (39-117); Anion Gap 17 (12-20); Aspartate Amino Transferase 21 U/L (5-31); Bilirubin Total 0.4 mg/dL (0.0-1.0); Blood Urea Nitrogen 17 mg/dL (9-16); Calcium 9.2 mg/dL (8.4-10.2); Carbon Dioxide 23 mmol/L (22-29); Chloride 105 mmol/L (96-108); Estimated Glomerular Filt Rate 54; Glucose Random 99 mg/dL (60-115); Potassium 4.5 mmol/L (3.3-5.1); Sodium 140 mmol/L (135-145); Total Protein 7.3 g/dL (6.5-8.0)
[2022-01-31 17:08] LABS: Thyroid Stimulating Hormone 1.68 uIU/mL (0.32-4.0)
[2022-01-31 17:08] LABS: Bacteria Urine None Seen (None Seen); Hyaline Casts Urine 0-2 /LPF (0-2); RBC Urine 0-2 /HPF (0-2); Squamous Epithelial Cell Urine 0-2 /HPF (0-2); WBC Urine 0-5 /HPF (0-5)
[2022-01-31 17:21] LABS: Folate > 20.0 ng/mL (> or = 4.0); Vitamin B12 1184 pg/mL (200-900)
== END 2022-01-31 15:19 | disposition home or self-care (01) ==
LOC: HO.LAB 15:18
PROVIDERS: PCP Internal Medicine; Visit Provider Psychiatry & Neurology Psychiatry
DX: F33.41 Major depressive disorder, recurrent, in partial remission (principal)
CPT/HCPCS: 36415; 80053; 81001; 81003; 82607; 82746; 83036; 84443; 93005

== ENCOUNTER → 2022-03-04 12:06 | Outpatient (BNVA) | payer MEDICARE, OTHER, SELFPAY | PROVIDERS: Visit Provider Psychiatry & Neurology Psychiatry | DX: F33.2 Major depressive disorder, recurrent severe without psychotic features (principal); Z79.899 Other long term (current) drug therapy | CPT/HCPCS: 90833; 99212 ==

== ENCOUNTER → 2022-03-25 15:06 | Outpatient (BNVA) | payer MEDICARE, OTHER, SELFPAY | PROVIDERS: PCP Internal Medicine; Visit Provider Psychiatry & Neurology Psychiatry | DX: F33.2 Major depressive disorder, recurrent severe without psychotic features (principal); F41.1 Generalized anxiety disorder | CPT/HCPCS: 90833; 99212 ==

== ENCOUNTER → 2022-04-09 13:36 | Outpatient (BNVA) | payer MEDICARE, SELFPAY | PROVIDERS: PCP Internal Medicine; Visit Provider Psychiatry & Neurology Psychiatry | DX: F41.1 Generalized anxiety disorder (principal); F33.2 Major depressive disorder, recurrent severe without psychotic features | CPT/HCPCS: 90833; 99212 ==

== ENCOUNTER → 2022-04-11 12:52 | Outpatient (REF) | payer MEDICARE, SELFPAY ==
[2022-04-11 13:06] LABS: MANUAL DIFF FLAG NO
--- NOTE | 2022-04-11 13:09 | ECG_ITS ---
Test Reason : F33.2 Blood Pressure : / mmHG Vent. Rate : 075 BPM Atrial Rate : 075 BPM P-R Int : 150 ms QRS Dur : 072 ms QT Int : 368 ms P-R-T Axes : 056 031 047 degrees QTc Int : 410 ms Normal sinus rhythm Normal ECG When compared with ECG of 31-JAN-2022 15:36, No significant change was found Referred By: Broderick Willett Electronically Signed By:BRENDA GRIFFIN MD
[2022-04-11 13:24] LABS: Basophils Percent Auto 0.5 % (0-2); Eosinophils Absolute Auto 0.1 X10*3/uL (0.0-0.4); Eosinophils Percent Auto 0.9 % (0-4); Hemoglobin 14.4 g/dl (12.0-16.0); Imm Gran Abs Auto 0.02 X10*3/uL (0.00-0.03); Imm Gran Pct Auto 0.3 % (0.0-0.4); Lymphocytes Absolute Auto 1.5 X10*3/uL (1.2-4.9); Lymphocytes Percent Auto 25.8 % (20-40); Mean Corpuscular Hemoglobin 28.6 pg (27.0-33.0); Mean Corpuscular Volume 89.5 fL (80.0-98.0); Mean Platelet Volume 10.6 fL (9.4-12.3); Monocytes Absolute Auto 0.4 X10*3/uL (0.1-1.2); Monocytes Percent Auto 6.1 % (2-11); Neutrophils Absolute Auto 3.9 x10*3/uL (2.0-8.3); Neutrophils Percent Auto 66.4 % (45-73); Platelet Count 210 X10*3/uL (160-400); Red Blood Count 5.03 X10*6/uL (4.20-5.50); Red Cell Distribution Width 15.7 % (11.0-16.0); White Blood Count 5.9 X10*3/uL (4.8-10.8)
[2022-04-11 13:37] LABS: Alanine Aminotransferase 23 U/L (0-31); Alkaline Phosphatase 81 U/L (39-117); Anion Gap 15 (12-20); Aspartate Amino Transferase 20 U/L (5-31); Bilirubin Total 0.4 mg/dL (0.0-1.0); Blood Urea Nitrogen 19 mg/dL (9-16); Calcium 9.6 mg/dL (8.4-10.2); Carbon Dioxide 23 mmol/L (22-29); Chloride 105 mmol/L (96-108); Estimated Glomerular Filt Rate 49; Glucose Random 113 mg/dL (60-115); Potassium 4.2 mmol/L (3.3-5.1); Sodium 139 mmol/L (135-145); Total Protein 7.4 g/dL (6.5-8.0)
[2022-04-11 14:03] LABS: TSH reflex Free T4 2.65 uIU/mL (0.32-4.0)
[2022-04-11 14:04] LABS: Appearance Urine Clear; Color Urine Dark Yellow; Glucose Urine UA Negative (Negative); Leukocyte Esterase Urine Small (1+) (Negative); Nitrite Urine Negative (Negative); Specific Gravity - Urine 1.025 (1.005-1.025); UMIC TRIGGER UA YES; Urine Blood Negative (Negative); Urine Ketones Trace mg/dL (Negative); Urine Protein Negative (Neg-Trace)
[2022-04-11 14:28] LABS: Bacteria Urine None Seen (None Seen); Hyaline Casts Urine 0-2 /LPF (0-2); RBC Urine 0-2 /HPF (0-2); WBC Urine 0-5 /HPF (0-5)
== END ==
LOC: HO.CARD 12:52
PROVIDERS: PCP Internal Medicine; Visit Provider Psychiatry & Neurology Psychiatry
DX: Z01.818 Encounter for other preprocedural examination (principal); F33.2 Major depressive disorder, recurrent severe without psychotic features
CPT/HCPCS: 36415; 80053; 81001; 81003; 84443; 85025; 93005

== ENCOUNTER 2022-04-17 11:25 | Outpatient (RCR) | payer MEDICARE, SELFPAY | END 2022-06-07 23:59 | disposition home or self-care (01) | LOC: HO.PTMS 11:25 | PROVIDERS: Visit Provider Psychiatry & Neurology Psychiatry | DX: F32.A Depression, unspecified (principal) ==

== ENCOUNTER → 2022-04-28 12:07 | Outpatient (BNVA) | payer MEDICARE, OTHER, SELFPAY | PROVIDERS: PCP Internal Medicine; Visit Provider Psychiatry & Neurology Psychiatry | DX: F33.2 Major depressive disorder, recurrent severe without psychotic features (principal); F41.1 Generalized anxiety disorder | CPT/HCPCS: 99212 ==

== ENCOUNTER 2022-05-22 13:41 | Outpatient (REF) | payer MEDICARE, SELFPAY ==
--- NOTE | ~2022-05-22 | MM_ITS ---
EXAMINATION: MM SCREENING DIGITAL BREAST TOMOSYNTHESIS, BILATERAL CLINICAL INFORMATION: Screening. Asymptomatic. The lifetime risk of breast cancer based on the Tyrer-Cuzick Model is 5%. COMPARISON: Mammography: May 21, 2021 and studies dating back to July 30, 2015 TECHNIQUE: Digital breast tomosynthesis is performed in both the craniocaudal and mediolateral oblique views along with computer-aided detection (CAD). Synthesized 2D images are generated from the tomosynthesis. FINDINGS: The breasts are extremely dense, which lowers the sensitivity of mammography (ACR BI-RADS breast composition Category d). There are no significant masses, abnormal calcifications, or other abnormalities. MM/MM tomosynthesis screening BI IMPRESSION: No significant changes ASSESSMENT: BI-RADS 1: Negative RECOMMENDATION: Routine annual mammography screening. This patient's information was entered into a reminder system with a target due date for their next mammogram.
== END 2022-05-22 13:42 | disposition home or self-care (01) ==
LOC: HO.MAMMO 13:41
PROVIDERS: PCP Internal Medicine; Visit Provider Internal Medicine
DX: Z12.31 Encounter for screening mammogram for malignant neoplasm of breast (principal)
CPT/HCPCS: 77063; 77067

== ENCOUNTER → 2022-05-29 13:43 | Outpatient (BNVA) | payer MEDICARE, OTHER, SELFPAY | PROVIDERS: PCP Internal Medicine; Visit Provider Psychiatry & Neurology Psychiatry | DX: F41.1 Generalized anxiety disorder (principal); F33.42 Major depressive disorder, recurrent, in full remission | CPT/HCPCS: 99212 ==

== ENCOUNTER → 2022-06-11 13:43 | Outpatient (BNVA) | payer MEDICARE, SELFPAY | PROVIDERS: PCP Internal Medicine; Visit Provider Internal Medicine | DX: M81.0 Age-related osteoporosis without current pathological fracture (principal); E04.2 Nontoxic multinodular goiter; E55.9 Vitamin D deficiency, unspecified | CPT/HCPCS: 99212 ==

== ENCOUNTER 2022-07-22 15:42 | Emergency (ER) | payer MEDICARE, OTHER, SELFPAY ==
--- NOTE | ~2022-07-22 | CT_ITS ---
EXAMINATION: CT HEAD WITHOUT CONTRAST CT CERVICAL SPINE WITHOUT CONTRAST CLINICAL INFORMATION: Fall, head strike. COMPARISON: CT head and cervical spine 01/11/2021. TECHNIQUE: Contiguous axial imaging was performed from the skull base to vertex without intravenous administration of contrast. Contiguous axial imaging was performed from the upper chest through the skull base without intravenous administration of contrast. Coronal and sagittal reformats were obtained at the acquisition workstation. This CT examination was performed using dose optimization techniques as appropriate, variously including the following: *Automated exposure control *Adjustment of mA and/or kV according to patient size (this includes techniques or standardized protocols for targeted exams where dose is matched to indication/reason for exam; i.e. extremities or head) *Use of iterative reconstruction technique DLP: 548 and 347 mGy-cm FINDINGS: Head: There is no evidence of acute intracranial hemorrhage or edematous territorial infarction. A few foci of hypoattenuation in the periventricular and deep white matter are consistent with mild microangiopathy. Pearson-white matter differentiation is preserved. Proportional prominence of the ventricles and sulcal spaces. No evidence for obstructive hydrocephalus. No abnormal mass effect or midline shift. No extra-axial fluid collections. No acute soft tissue or osseous abnormalities. The mastoid air cells and paranasal sinuses are clear. Cervical Spine: The atlantooccipital and atlantoaxial articulations remain well aligned. Straightening of the normal cervical lordosis. Otherwise, there is anatomic alignment of the vertebral bodies and posterior elements. No evidence of acute fracture or subluxation. Mild to moderate multilevel cervical spondylosis. There is no prevertebral soft tissue swelling. The thyroid gland and remaining cervical soft tissues are normal in appearance. The lung apices demonstrate no abnormalities. CT/CT cervical spine wo IV con IMPRESSION: 1. No acute intracranial pathology. 2. No acute cervical spinal fractures or traumatic subluxation.
--- NOTE | 2022-07-22 16:13 | ED.FALL ---
HPI - Fall General Chief Complaint: Fall <Gladis Sebastian CNP - Last Filed: 07/22/22 20:17> Stated Complaint: Fell yesterday/ headache <Gladis Sebastian CNP - Last Filed: 07/22/22 20:17> Time Seen by Provider: 07/22/22 16:25 <Gladis Sebastian CNP - Last Filed: 07/22/22 20:17> Source: patient <DANTE Murray - Last Filed: 07/22/22 18:54> Mode of arrival: ambulatory <DANTE Murray - Last Filed: 07/22/22 18:54> Limitations: no limitations <DANTE Murray Last Filed: 07/22/22 18:54> History of Present Illness HPI Narrative: 71 yo female presents to the ER for evaluation of right sided headache after she fell and hit her head while cleaning the bathroom yesterday. She states she slipped on uneven tile and hit her head on the sink. She did not lose consciousness. She is not on anticoagulation. She reports no other injuries. She reports a throbbing right sided headache and left sided neck pain today. Worse with movement. She did not take any meds today. No weakness, numbness, tingling or difficulty ambulating. <DANTE Murray - Last Filed: 07/22/22 18:54> MD complaint: fall <DANTE Murray - Last Filed: 07/22/22 18:54> Onset (ago): day(s) (1) <DANTE Murray - Last Filed: 07/22/22 18:54> Fall from: standing <DANTE Murray Last Filed: 07/22/22 18:54> Fall witnessed: no <DANTE Murray Last Filed: 07/22/22 18:54> Place fall occurred: home <DANTE Murray Last Filed: 07/22/22 18:54> Loss of consciousness: none <DANTE Murray Last Filed: 07/22/22 18:54> Prolonged down time: no <DANTE Murray Last Filed: 07/22/22 18:54> Symptoms prior to fall: none <DANTE Murray - Last Filed: 07/22/22 18:54> Context: tripped/slipped <DANTE Murray - Last Filed: 07/22/22 18:54> Location of injury: head <DANTE Murray Last Filed: 07/22/22 18:54> Severity: moderate <DANTE Murray Last Filed: 07/22/22 18:54> Quality: aching <DANTE Murray - Last Filed: 07/22/22 18:54> Associated symptoms (after fall): headache and neck pain <DANTE Murray Last Filed: 07/22/22 18:54> Related Data Home Medications: Home Medications Medication Instructions Recorded Confirmed memantine 5 mg tablet 5 mg PO BID 04/23/20 06/11/22 thiamine HCl (vitamin B1) 100 mg 100 mg PO BID 10/22/20 06/11/22 tablet folic acid 1 mg tablet 1 mg PO DAILY 11/18/21 06/11/22 Previous Rx's Medication Instructions Recorded denosumab 60 mg/mL subcutaneous 60 mg subcut [id number] #1 mL 06/19/21 syringe levothyroxine 25 mcg tablet 25 mcg PO DAILY 30 days #30 tabs 01/29/22 vortioxetine 20 mg tablet 20 mg PO DAILY #90 tabs 03/27/22 (Trintellix) levomefolate 15 mg-algal oil 1 cap PO DAILY #30 caps 04/09/22 90.314 mg capsule (Deplin (algal oil)) levomefolate calcium 15 mg tablet 15 mg PO DAILY #30 tabs 04/10/22 donepezil 5 mg tablet 5 mg PO BEDTIME #90 tabs 05/22/22 lumateperone 10.5 mg capsule 10.5 mg PO DAILY #30 caps 05/29/22 (Caplyta) doxepin 25 mg capsule 125 mg PO BEDTIME 30 days #150 caps 06/15/22 lorazepam 0.5 mg tablet See Rx Instructions .Route 07/07/22 .COMPLEX #90 tabs zolpidem 6.25 mg tablet,extended 6.25 mg PO BEDTIME #30 tabs 07/09/22 release,multiphase <Gladis Ingris Barcome, FITTING ROOM ASSOCIATE - Last Filed: 07/22/22 20:17> Allergies/Adverse Reactions: Allergies Allergy/AdvReac Type Severity Reaction Status Date / Time risperidone [From Risperdal] Allergy Intermediate UNKNOWN Verified 07/22/22 16:18 Sulfa (Sulfonamide Allergy Intermediate rash Verified 07/22/22 16:18 Antibiotics) From BENADRYL Allergy Intermediate DIZZY Uncoded 06/11/22 13:52 <Gladis Sebastian CNP - Last Filed: 07/22/22 20:17> Review of Systems Review of Systems: Yes all other systems are reviewed and are negative <DANTE Murray - Last Filed: 07/22/22 18:54> [facility] Past Medical History Medical History: Medical History Abdominal distention Abnormal serum protein electrophoresis Depression with anxiety Depression, major, severe recurrence POONAM (generalized anxiety disorder) Hyperparathyroidism Hypothyroidism Major depression, recurrent, full remission Mild recurrent major depression Multinodular thyroid Obesity (BMI 30-39.9) Osteoporosis Vitamin D deficiency Weight gain <Gladis Sebastian CNP - Last Filed: 07/22/22 20:17> Surgical History: Surgical History Hx of section Hx of colonoscopy Hx of kyphoplasty <Gladis Sebastian CNP - Last Filed: 07/22/22 20:17> Family History Family History: Family History Father Myocardial infarction CVD (cardiovascular disease) Mother Dementia Alzheimer disease Other Mental health disorder <Gladis Sebastian CNP - Last Filed: 07/22/22 20:17> Social History Social History: Social History Household Members: Spouse Housing: House Alcohol intake: never Patient Tobacco Use Status: Never used Tobacco e-Cigarette/Vaping Use: Never Used Second Hand Smoke Exposure: No Advance Directives: No Advance Directives Information Provided: No service: No Current occupational status: unemployed Cognitive needs: No Hearing needs: No <Gladis Sebastian CNP - Last Filed: 07/22/22 20:17> Physical Exam Vital Signs: Vital Signs: Last Vital Signs Temp 97.8 F 07/22/22 18:16 Pulse 74 07/22/22 18:16 Resp 16 07/22/22 18:16 BP 138/73 07/22/22 18:16 Pulse Ox 98 07/22/22 18:16 O2 Del Method 07/22/22 18:16 BMI result Body Mass Index 26.4 <Gladis Sebastian CNP - Last Filed: 07/22/22 20:17> Vital Signs: Last Vital Signs Temp 97.8 F 07/22/22 18:16 Pulse 74 07/22/22 18:16 Resp 16 07/22/22 18:16 BP 138/73 07/22/22 18:16 Pulse Ox 98 07/22/22 18:16 O2 Del Method 07/22/22 18:16 BMI result Body Mass Index 26.4 <DANTE Murray - Last Filed: 07/22/22 18:54> Appearance: Alert. Oriented X3. No acute distress. Head: normocephalic, atraumatic. mild tenderness to right parietal area, no swelling Eyes: Pupils equal, round and reactive to light. ENT: Pharynx normal. Neck: Normal inspection. Neck supple. soft tissue tenderness of the left lateral area, no midline tenderness CVS: Normal heart rate and rhythm. Pulses normal. Respiratory: No respiratory distress. Breath sounds normal. Abdomen: Soft and nontender. +BS x4 Skin: Skin warm and dry. Normal skin color. Normal skin turgor. No rashes. Extremities: No lower extremity edema. Neuro: Oriented X 3. No motor deficit. No sensory deficit <DANTE Murray - Last Filed: 07/22/22 18:54> Course Course Course Narrative: This is an RME: Additional HPI, ROS, PE not included below will be deferred to primary provider. Patient is a 71-year-old female who presents emergency department for evaluation after a fall. Patient states yesterday while in the bathroom, had a mechanical fall, tripped over something on the floor and she struck her head on the cabinet door. Denies any precipitating symptoms. Denies any loss of consciousness or use of anticoagulants. She has had a persistent headache, to right posterior head, since this event, denies vision changes but reports pressure behind both eyes. Diffuse neck pain. Did not take any medication to help with the pain. PE: no midline cervical spine tenderness, step-off, deformities. No focal neurological deficits at this time. Plan: CT head/ cervical spine <Gladis Sebastian CNP - Last Filed: 07/22/22 20:17> Reevaluation(s) Reevaluation #1: CT of the head reveals no acute intracranial pathology, cervical spine without fracture/subluxation. Reviewed these findings with patient. At this time she is stable for discharge home. Discussed the use of acetaminophen as needed for pain. Outpatient follow-up with primary care provider. Reviewed worrisome signs and symptoms that would warrant re-evaluation in the emergency department. <Gladis Sebastian CNP - Last Filed: 07/22/22 20:17> CT pending <DANTE Murray - Last Filed: 07/22/22 18:54> Time: 20:13 <Gladis Sebastian CNP - Last Filed: 07/22/22 20:17> Medications Administered Discontinued Medications Generic Name Dose Route Start Last Admin Trade Name Freq PRN Reason Stop Dose Admin Acetaminophen 975 mg 07/22/22 17:13 07/22/22 17:54 Acetaminophen 325 Mg Tablet PO 07/22/22 17:14 975 mg ONCE ONE Administration <Gladis Sebastian CNP - Last Filed: 07/22/22 20:17> Medications Administered Discontinued Medications Generic Name Dose Route Start Last Admin Trade Name Freq PRN Reason Stop Dose Admin Acetaminophen 975 mg 07/22/22 17:13 07/22/22 17:54 Acetaminophen 325 Mg Tablet PO 07/22/22 17:14 975 mg ONCE ONE Administration <DANTE Murray - Last Filed: 07/22/22 18:54> Medical Decision Making Differential Diagnosis Differential Diagnoses: The differential diagnosis associated with the presentation includes <DANTE Murray - Last Filed: 07/22/22 18:54> concussion without loc, close head injury, cervical strain, doubt ICH/SAH/epidural hematoma, doubt traumatic c-spine subluxation <DANTE Murray - Last Filed: 07/22/22 18:54> Independent Interpretation I performed an independent interpretation of an: CT Scan <Gladis Sebastian CNP - Last Filed: 07/22/22 20:17> Radiology Impression Discussion of test interpretation with radiology: I have reviewed the radiologist's reading. <Gladis Sebasitan CNP - Last Filed: 07/22/22 20:17> Radiologist Impression: CT/CT head/brain wo IV con IMPRESSION: 1.? No acute intracranial pathology. 2.? No acute cervical spinal fractures or traumatic subluxation. <Gladis Sebastian CNP - Last Filed: 07/22/22 20:17> External Record Review External record reviewed: Outpatient record, Prior outpatient labs and Prior outpatient radiology <DANTE Murray - Last Filed: 07/22/22 18:54> Prescription Management I considered prescription management with: Pain Medication <DANTE Murray - Last Filed: 07/22/22 18:54> Discharge Plan Discharge Clinical Impression: Closed head injury, Concussion <Gladis Sebastian CNP - Last Filed: 07/22/22 20:17> Patient Disposition: Home, Self-Care <Gladis Sebastian CNP - Last Filed: 07/22/22 20:17> Instructions: Head Injury (ED) <Gladis Sebastian CNP - Last Filed: 07/22/22 20:17> Additional Instructions: CT imaging today was normal. There is no sign of bleeding, fracture, or injury to the neck. Please be sure to rest over the next few days. You can take Tylenol 500 mg, 2 tablets (1,000mg) every 4-6 hours as needed for pain, but not to exceed 3 doses daily (3,000mg).? Contact your primary care provider to arrange for follow-up. You may return back to emergency department any new or worsening symptoms or concerns. <Gladis Sebastian CNP - Last Filed: 07/22/22 20:17> Prescriptions: No Action denosumab 60 mg/mL syringe 60 mg subcut [id number] Qty: 1 2RF levothyroxine 25 mcg tablet 25 mcg PO DAILY 30 Days Qty: 30 11RF Trintellix 20 mg tablet 20 mg PO DAILY Qty: 90 1RF levomefolate calcium 15 mg tablet 15 mg PO DAILY Qty: 30 3RF donepezil 5 mg tablet 5 mg PO BEDTIME Qty: 90 1RF doxepin 25 mg capsule 125 mg PO BEDTIME 30 Days Qty: 150 2RF lorazepam 0.5 mg tablet See Rx Instructions .ROUTE .COMPLEX Qty: 90 0RF Rx Instructions: take 1/2 to one tab up to 3 times daily as needed for anxiety, try to use only 1/2 tab; zolpidem 6.25 mg tablet,ext release multiphase 6.25 mg PO BEDTIME Qty: 30 0RF thiamine HCl (vitamin B1) 100 mg tablet 100 mg PO BID folic acid 1 mg tablet 1 mg PO DAILY memantine 5 mg tablet 5 mg PO BID levomefolate-algal oil [Deplin (algal oil)] 15-90.314 mg capsule 1 cap PO DAILY Qty: 30 2RF Caplyta 10.5 mg capsule 10.5 mg PO DAILY Qty: 30 2RF <Gladis Sebastian CNP - Last Filed: 07/22/22 20:17> Referrals: Brittany Tinajero MD [Primary Care Provider] - <Gladis Sebastian CNP - Last Filed: 07/22/22 20:17>
[2022-07-22 16:14] VITALS: BP 137/80; PULSE 92; RESP 18; TEMP 36.6; O2SAT 93; BMI 26.4
[2022-07-22] MEDS: Acetaminophen 325 MG TABLET 975 MG PO (17:54)
[2022-07-22 18:16] VITALS: BP 138/73; PULSE 74; RESP 16; TEMP 36.6; O2SAT 98
== END 2022-07-22 20:24 | disposition home or self-care (01) ==
PROVIDERS: Emergency Provider Student in an Organized Health Care Education/Training Program; PCP Internal Medicine
DX: S09.90XA Unspecified injury of head, initial encounter (principal); R51.9 Headache, unspecified; M54.2 Cervicalgia; W01.0XXA Fall on same level from slipping, tripping and stumbling without subsequent striking against object, initial encounter; Y93.9 Activity, unspecified; Y92.9 Unspecified place or not applicable; Y99.9 Unspecified external cause status; Z79.899 Other long term (current) drug therapy
CPT/HCPCS: 70450; 72125; 99283; 99284

== ENCOUNTER → 2022-07-31 13:43 | Outpatient (BNVA) | payer MEDICARE, OTHER, SELFPAY | PROVIDERS: PCP Internal Medicine; Visit Provider Psychiatry & Neurology Psychiatry | DX: F33.42 Major depressive disorder, recurrent, in full remission (principal); F41.1 Generalized anxiety disorder; G47.00 Insomnia, unspecified | CPT/HCPCS: 99212 ==

== ENCOUNTER → 2022-10-17 12:05 | Outpatient (BNVA) | payer MEDICARE, OTHER, SELFPAY | PROVIDERS: PCP Internal Medicine; Visit Provider Psychiatry & Neurology Psychiatry ==

== ENCOUNTER 2022-11-21 08:11 | Outpatient (REF) | payer MEDICARE, SELFPAY ==
[2022-11-21 08:27] LABS: MANUAL DIFF FLAG NO
--- NOTE | 2022-11-21 08:37 | ECG_ITS ---
Test Reason : ANXIETY Blood Pressure : / mmHG Vent. Rate : 083 BPM Atrial Rate : 083 BPM P-R Int : 154 ms QRS Dur : 074 ms QT Int : 356 ms P-R-T Axes : 060 019 054 degrees QTc Int : 418 ms Normal sinus rhythm Low voltage QRS Borderline ECG When compared with ECG of 11-APR-2022 13:05, No significant change was found Referred By: Broderick Willett Electronically Signed By:NIK ALBRIGHT MD
[2022-11-21 09:06] LABS: Basophils Absolute Auto 0.1 X10*3/uL (0.0-0.2); Basophils Percent Auto 0.7 % (0-2); Eosinophils Absolute Auto 0.1 X10*3/uL (0.0-0.4); Eosinophils Percent Auto 1.6 % (0-4); Hematocrit 44.8 % (37.0-47.0); Hemoglobin 14.6 g/dl (12.0-16.0); Imm Gran Abs Auto 0.02 X10*3/uL (0.00-0.03); Imm Gran Pct Auto 0.3 % (0.0-0.4); Lymphocytes Absolute Auto 2.2 X10*3/uL (1.2-4.9); Lymphocytes Percent Auto 32.3 % (20-40); Mean Corpuscular HGB Conc 32.6 g/dl (31.0-35.0); Mean Corpuscular Hemoglobin 29.3 pg (27.0-33.0); Monocytes Absolute Auto 0.4 X10*3/uL (0.1-1.2); Monocytes Percent Auto 5.7 % (2-11); Neutrophils Percent Auto 59.4 % (45-73); Platelet Count 202 X10*3/uL (160-400); Red Blood Count 4.98 X10*6/uL (4.20-5.50); Red Cell Distribution Width 15.1 % (11.0-16.0); White Blood Count 6.7 X10*3/uL (4.8-10.8)
[2022-11-21 09:26] LABS: Appearance Urine Clear; Color Urine Yellow; Glucose Urine UA Negative (Negative); Leukocyte Esterase Urine Moderate (2+) (Negative); Nitrite Urine Negative (Negative); Specific Gravity - Urine 1.015 (1.005-1.025); UMIC TRIGGER UA YES; Urine Blood Negative (Negative); Urine Ketones Negative (Negative); Urine Protein Negative (Neg-Trace)
[2022-11-21 09:31] LABS: Bacteria Urine None Seen (None Seen); Hyaline Casts Urine 0-2 /LPF (0-2); RBC Urine 0-2 /HPF (0-2); Squamous Epithelial Cell Urine 0-2 /HPF (0-2)
[2022-11-21 09:46] LABS: Alanine Aminotransferase 26 U/L (0-31); Albumin Level 3.8 g/dL (3.5-5.0); Alkaline Phosphatase 71 U/L (39-117); Anion Gap 16 (12-20); Aspartate Amino Transferase 21 U/L (5-31); Bilirubin Total 0.5 mg/dL (0.0-1.0); Blood Urea Nitrogen 17 mg/dL (9-16); Calcium 10.1 mg/dL (8.4-10.2); Carbon Dioxide 22 mmol/L (22-29); Chloride 105 mmol/L (96-108); Estimated Glomerular Filt Rate 46; Glucose Random 131 mg/dL (60-115); Potassium 3.8 mmol/L (3.3-5.1); Sodium 139 mmol/L (135-145); Total Protein 7.6 g/dL (6.5-8.0)
[2022-11-21 10:02] LABS: Valproate < 12.5 mcg/mL (50.0-100.0)
== END 2022-11-21 08:12 | disposition home or self-care (01) ==
LOC: HO.LAB 08:11
PROVIDERS: PCP Internal Medicine; Visit Provider Psychiatry & Neurology Psychiatry
DX: F33.2 Major depressive disorder, recurrent severe without psychotic features (principal); G47.00 Insomnia, unspecified; R41.0 Disorientation, unspecified; F41.1 Generalized anxiety disorder; Z79.899 Other long term (current) drug therapy
CPT/HCPCS: 36415; 80053; 80164; 81001; 85025; 93005

== ENCOUNTER 2023-01-02 11:44 | Outpatient (AMB) | payer MEDICARE, SELFPAY ==
--- NOTE | 2023-01-02 12:09 | A.OFFPSYCH_ITS ---
Intake Intake Visit Reasons: depression Allergies risperidone [From Risperdal] Allergy (Intermediate, Verified 01/29/23 12:00) UNKNOWN Sulfa (Sulfonamide Antibiotics) Allergy (Intermediate, Verified 01/29/23 12:00) rash From BENADRYL Allergy (Intermediate, Uncoded 01/29/23 12:00) DIZZY Medication List - Last Reconciled 01/02/23 by Broderick Willett MD denosumab 60 mg subcut [id number] donepezil 5 mg PO BEDTIME doxepin 125 mg (5 x 25 mg) PO BEDTIME 30 days folic acid 1 mg PO DAILY levomefolate calcium 15 mg PO DAILY levomefolate-algal oil 15-90.314 mg (Deplin (algal oil)) 1 cap PO DAILY levothyroxine 25 mcg PO DAILY 30 days lorazepam take 1/2 to one tab up to 3 times daily as needed for anxiety, try to use only 1/2 tab; lumateperone (Caplyta) 10.5 mg PO DAILY memantine 5 mg PO BID thiamine HCl (vitamin B1) 100 mg PO BID 90 days vortioxetine (Trintellix) 20 mg PO DAILY zolpidem ER 6.25 mg PO BEDTIME HPI- Psychiatric Chief Complaint: depression HPI Narrative: Patient seen in psychiatric follow-up the patient states she is feeling more like herself. Going out for walks more generally getting along well with her whom she states periodically can become crampy especially around issues related to his diabetes patient did not get her last injection of Prolia and comes with some questions about this. She does have a history of spinal fracture. Patient's mood has generally been stable good able to enjoy things more motivation and energy feeling generally much more like herself no new medical concerns according to the patient Past Psychiatric History: Patient with long history of recurrent depression with multiple prior psychiatric hospitalizations. 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 no classic bipolar symptoms past de pressive psychotic episodes not for a number of years Mental Status Exam Mental Status Exam Narrative: Mental Status Exam Narrative: Appearance: Casually dressed Behavior: Cooperative appropriate psychomotor: Within normal limits Speech: Normal volume and prosody Thought proccess logical and goal-directed Thought content: Future oriented no self-harming thoughts Mood: Euthymic Affect: Appropriate to mood full affect SI:denies HI:denies VH/AH:none Delusions: None Insight/judgment: Good insight and judgment Memory/cog: Generally intact some difficulty at times with short-term memory but generally knows her medications her conditions alert Assessment and Plan Assessment & Plan (1) Major depression, recurrent, full remission: Status: Acute Code(s): F33.42 - Major depressive disorder, recurrent, in full remission (2) POONAM (generalized anxiety disorder): Status: Acute Code(s): F41.1 - Generalized anxiety disorder (3) Osteoporosis: Status: Acute Qualifiers: Osteoporosis type: unspecified Presence of current pathological fracture: unspecified Qualified Code(s): M81.0 - Age-related osteoporosis without current pathological fracture Code(s): M81.0 - Age-related osteoporosis without current pathological fracture Plan After discussing with patient that this was not my field of expertise discussed risks since she has a history of osteoporosis history of past spinal fracture and was unable to tolerate Fosamax that Prolia was certainly an option and that she should 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 Patient was given a handout regarding this questions answered from [employer] online in asked her to discuss this further with her primary care physician but that she certainly seemed a candidate that would benefit from from treatment for osteoporosis especially given her history of spinal fracture. Continue Trintellix captyla trying again taper down on lorazepam doxepin at bedtime patient has required antipsychotics for augmentation for treatment of depression no evidence of adve rse effect on cognition prior EKG in November was unremarkable QTC unremarkable on doxepin Patient has generally been stable on a combination of Trintellix and captyla has required ECT in the past which we have been trying to avoid most recently because of cognitive side effects. 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 Patient denies gait disturbance which should be monitored on a combination of doxepin lorazepam and intermittent Ambien. When depressed she does have significant sleep disturbance and have discussed sleep hygiene Counseling and coordination of Care Pt. Self Management counseling: Med illness tx adherence and Behavior activation Medication management counseling: Effectiveness, Side effects and Dosing range Diagnosis and Prognosis Counseling: Adequacy of current interventions Details: I spent [38] minutes reviewing the record, seeing the patient and documenting in the medical record. Counseling provided to the patient/caregiver as outlined below. Addressed patient/caregiver concerns regarding current medication regime including effective adherence. Addressed patient/caregiver concerns regarding diagnosis and prognosis including accuracy of diagnosis, prognosis over time, impact of diagnosis. Addressed patient/caregiver concerns regarding impact of recent stressors. [facility] Medical History Abdominal distention Abnormal serum protein electrophoresis Depression with anxiety Depression, major, severe recurrence POONAM (generalized anxiety disorder) Hyperparathyroidism Hypothyroidism Major depression, recurrent, full remission Mild recurrent major depression Multinodular thyroid Obesity (BMI 30-39.9) Osteoporosis Preoperative examination Vitamin D deficiency Weight gain Surgical History Hx of section Hx of colonoscopy Hx of kyphoplasty Family History Father Myocardial infarction CVD (cardiovascular disease) Mother Dementia Alzheimer disease Other Mental health disorder Social History Household Members: Spouse Housing: House Alcohol intake: never Patient Tobacco Use Status: Never used Tobacco e-Cigarette/Vaping Use: Never Used Second Hand Smoke Exposure: No service: No Current occupational status: unemployed Cognitive needs: No Hearing needs: No Social History: Patient disabled has 1 son. Chronic anxiety has an intermittent difficult relationship with her mostly has not worked Substance History: None Trauma History: None noted Coding Level of Care Code Est Pt Level 3 (72634) Therapy 30m w/E&M (12072) Diagnoses Major depression, recurrent, full remission F33.42 POONAM (generalized anxiety disorder) F41.1 Osteoporosis M81.0 Osteoporosis type: unspecified Presence of current pathological fracture: unspecified
== END 2023-01-02 12:26 | disposition home or self-care (01) ==
LOC: HO.HOP 11:44
PROVIDERS: PCP Internal Medicine; Visit Provider Psychiatry & Neurology Psychiatry
DX: F33.42 Major depressive disorder, recurrent, in full remission (principal); F41.1 Generalized anxiety disorder; M81.0 Age-related osteoporosis without current pathological fracture
CPT/HCPCS: 90833; 99213

== ENCOUNTER → 2023-01-02 11:44 | Outpatient (BNVA) | payer MEDICARE, OTHER, SELFPAY | PROVIDERS: PCP Internal Medicine; Visit Provider Psychiatry & Neurology Psychiatry | DX: F33.42 Major depressive disorder, recurrent, in full remission (principal); M81.0 Age-related osteoporosis without current pathological fracture; F41.1 Generalized anxiety disorder | CPT/HCPCS: 90833; 99212 ==

== ENCOUNTER 2023-01-06 13:52 | Outpatient (REF) | payer MEDICARE, OTHER, SELFPAY ==
--- NOTE | ~2023-01-06 | MM_ITS ---
EXAMINATION: BONE DENSITOMETRY CLINICAL INDICATION: Age-related osteoporosis without current pathological fracture. COMPARISON: Previous BD dated 01/03/2021 and baseline BD dated 01/04/2009. TECHNIQUE: Using a [employer] DXA System (software version: 13.1) manufactured by [employer], dual-energy x-ray absorptiometry was performed of the lumbar spine and left hip. The images are of good technical quality. Summary results are attached. FINDINGS: LEFT FEMUR, NECK: Current: BMD 0.608 g/cm2, Z-score -1.5, T-score -3.1, osteoporosis. Prior: BMD 0.611 g/cm2. Baseline: BMD 0.602 g/cm2. LEFT FEMUR, TOTAL: Current: BMD 0.808 g/cm2, Z-score -0.3, T-score -1.6, osteopenia, 5.2% increase from previous, 4.8% increase from baseline (<5% change is not significant). Prior: BMD 0.768 g/cm2. Baseline: BMD 0.771 g/cm2. AP SPINE L1-L4 (excluding L2): The data of L1-L4 has been changed to exclude the L2 vertebral body, because metallic artifact at this level may cause overestimation of lumbar spine density. Current: BMD 1.133 g/cm2, Z-score 1.1, T-score -0.3, normal, 8.1% increase from previous, 10.4% increase from baseline (<5% change is not significant). Prior: BMD 1.048 g/cm2. Baseline: BMD 1.026 g/cm2. IDENTIFIED RISK FACTORS: Menopause, recurrent falls. HISTORY OF FRACTURE: None listed. MEDICATIONS: Calcium, vitamin D. MM/XR DEXA axial skeleton IMPRESSION: 1. DIAGNOSIS: Osteoporosis based on the lowest T-score value of -3.1 in the femoral neck applying World Health Organization criteria. 2. 10-YEAR FRACTURE RISK PREDICTION, FRAX: According to the guidelines, FRAX calculation should only be performed on patients in the osteopenia bone density category. Therefore, FRAX was not performed on this patient. 3. Treatment Recommendations: NOF guidelines recommend consideration for treatment in postmenopausal women and men age 50 and older presenting with the following: -A hip or vertebral (clinical or morphometric) fracture. -T-score less than or equal to -2.5 at the femoral neck or spine after appropriate evaluation to exclude secondary causes. -Low bone mass at the hip or spine and a 10-year fracture probability by FRAX of greater than or equal to 3% for hip fracture or greater than or equal to 20% for major osteoporotic fracture based on the [place] adapted WHO algorithm. 4. Other Recommendations: All treatment decisions require clinical judgment and consideration of individual patient factors, including patient preferences, comorbidities, previous drug use, risk factors not captured in the FRAX model (e.g. frailty, falls, vitamin D deficiency, increased bone turnover, interval significant decline in bone density) and possible under or overestimation of fracture risk by FRAX. Additional medical evaluation for secondary cause of low bone mineral density may be appropriate. FUTURE SCAN RECOMMENDATION: People with diagnosed cases of osteoporosis or at high risk for fracture should have regular bone mineral density tests. For patients eligible for Medicare, routine testing is allowed once every 2 years. The testing frequency can be increased to one year for patients who have rapidly progressing disease, those who are receiving or discontinuing medical therapy to restore bone mass, or have additional risk factors.
== END 2023-01-06 13:53 | disposition home or self-care (01) ==
LOC: HO.MAMMO 13:52
PROVIDERS: PCP Internal Medicine; Visit Provider Nurse Practitioner Family
DX: Z13.820 Encounter for screening for osteoporosis (principal); Z78.0 Asymptomatic menopausal state; M81.0 Age-related osteoporosis without current pathological fracture
CPT/HCPCS: 77080

== ENCOUNTER → 2023-01-06 14:00 | Outpatient (BNV) | payer MEDICARE, SELFPAY | PROVIDERS: PCP Internal Medicine; Visit Provider Radiology Diagnostic Radiology | DX: M81.0 Age-related osteoporosis without current pathological fracture (principal) | CPT/HCPCS: 77080 ==

== ENCOUNTER 2023-01-29 11:48 | Emergency (ER) | payer MEDICARE, OTHER, SELFPAY ==
--- NOTE | ~2023-01-29 | CT_ITS ---
EXAMINATION: CT HEAD WITHOUT CONTRAST CLINICAL INFORMATION: New onset of headache COMPARISON: 07/22/2022 TECHNIQUE: Contiguous axial imaging was performed from the skull base to vertex without intravenous administration of contrast. This CT examination was performed using dose optimization techniques as appropriate, variously including the following: *Automated exposure control *Adjustment of mA and/or kV according to patient size (this includes techniques or standardized protocols for targeted exams where dose is matched to indication/reason for exam; i.e. extremities or head) *Use of iterative reconstruction technique DLP: 519 mGy-cm FINDINGS: There is no evidence of acute intracranial hemorrhage or territorial infarction. No abnormal mass effect or midline shift is seen. Pearson to white matter differentiation is well preserved. No extra-axial fluid collections are identified. The ventricles are normal in size. 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 The osseous structures and soft tissues are normal. The mastoid air cells and visualized portions of the paranasal sinuses are well-aerated. CT/CT head/brain wo IV con IMPRESSION: No acute intracranial pathology.
--- NOTE | ~2023-01-29 | XR_ITS ---
EXAMINATION: XR CHEST CLINICAL INFORMATION: Pain COMPARISON: June 29, 2018 TECHNIQUE: 2 views of the chest were obtained. FINDINGS: There is no evidence of acute parenchymal disease, pneumothorax, or pleural effusion. Heart normal size. No evidence of pulmonary edema. Multiple vertebral body compression fractures are present which appear to have been present previously involving superior endplates of T11 and T12 as well as being status post vertebroplasty of L2. XR/XR chest 2V IMPRESSION: No acute disease.
[2023-01-29 12:00] VITALS: BP 161/80; PULSE 94; RESP 19; TEMP 36.6; O2SAT 100; BMI 30.4
--- NOTE | 2023-01-29 12:01 | ECG_ITS ---
Test Reason : PAIN Blood Pressure : / mmHG Vent. Rate : 087 BPM Atrial Rate : 087 BPM P-R Int : 156 ms QRS Dur : 074 ms QT Int : 356 ms P-R-T Axes : 042 004 032 degrees QTc Int : 428 ms Normal sinus rhythm Low voltage QRS Inferior infarct , age undetermined Abnormal ECG When compared with ECG of 21-NOV-2022 08:39, Inferior infarct is now Present Referred By: Armen Martinez Electronically Signed By:REMA MONTEMAYOR
--- NOTE | 2023-01-29 12:02 | ED_ITS ---
HPI - General Adult General Chief complaint: General Medical Stated complaint: headache 2xdays, ear pain Time Seen by Provider: 01/29/23 16:15 Source: patient Mode of arrival: ambulatory Limitations: no limitations History of Present Illness HPI narrative: 72-year-old female with history of major depression presents with headache. The headache started 3 days ago. It is generalized. Started gradually increased in significance over the course the past few days. She describes the pain as needed 10. Is a pressure pain. It does not associated with nausea vomiting, vision changes. She denies any fevers but has had some subjective chills. She has had bilateral ear pain. She has had no numbness, tingling or generalized weakness. She does describe some generalized myalgias and fatigue, in her low back and upper back. She denies any neck stiffness. Pain was not sudden in onset. She has also had a cough but no shortness of breath. She describes a chest discomfort but not pain or pressure. There is no increase in exertion. She does describe some mild photo and phonophobia. Related Data Previous Rx's Medication Instructions Recorded denosumab 60 mg/mL subcutaneous 60 mg subcut [id number] #1 mL 06/19/21 syringe levothyroxine 25 mcg tablet 25 mcg PO DAILY 30 days #30 tabs 01/29/22 levomefolate 15 mg-algal oil 1 cap PO DAILY #30 caps 04/09/22 90.314 mg capsule (Deplin (algal oil)) levomefolate calcium 15 mg tablet 15 mg PO DAILY #30 tabs 04/10/22 memantine 5 mg tablet 5 mg PO BID #180 tabs 08/29/22 lumateperone 10.5 mg capsule 10.5 mg PO DAILY #30 caps 10/31/22 (Caplyta) donepezil 5 mg tablet 5 mg PO BEDTIME #90 tabs 11/13/22 doxepin 25 mg capsule 125 mg PO BEDTIME 30 days #150 caps 11/17/22 folic acid 1 mg tablet 1 mg PO DAILY #90 tabs 11/25/22 zolpidem 6.25 mg tablet,extended 6.25 mg PO BEDTIME #30 tabs 12/05/22 release,multiphase lorazepam 0.5 mg tablet See Rx Instructions .Route 12/10/22 .COMPLEX #90 tabs thiamine HCl (vitamin B1) 100 mg 100 mg PO BID 90 days #180 tabs 12/22/22 tablet vortioxetine 20 mg tablet 20 mg PO DAILY #90 tabs 01/23/23 (Trintellix) nzzelwfnid-byxagtuaifump-kjwjowpy 1 cap PO Q8H PRN pain #7 caps 01/29/23 50 mg-300 mg-40 mg capsule (Fioricet) Allergies Allergy/AdvReac Type Severity Reaction Status Date / Time risperidone [From Risperdal] Allergy Intermediate UNKNOWN Verified 01/29/23 12:00 Sulfa (Sulfonamide Allergy Intermediate rash Verified 01/29/23 12:00 Antibiotics) From BENADRYL Allergy Intermediate DIZZY Uncoded 01/29/23 12:00 Review of Systems Review of Systems: CONSTITUTIONAL: Denies weight loss, fever + chills. HEENT: Denies changes in vision and hearing. RESPIRATORY: + SOB and cough. CV: Denies palpitations no CP. GI: Denies abdominal pain, nausea, vomiting and diarrhea. : Denies dysuria and urinary frequency. MSK: Denies myalgia and joint pain. SKIN: Denies rash and pruritus. NEUROLOGICAL: + headache - syncope. PSYCHIATRIC: Denies recent changes in mood. Denies anxiety and depression. All other ROS are negative unless in HPI PMFSH Past Medical History Medical History Abdominal distention Abnormal serum protein electrophoresis Depression with anxiety Depression, major, severe recurrence POONAM (generalized anxiety disorder) Hyperparathyroidism Hypothyroidism Major depression, recurrent, full remission Mild recurrent major depression Multinodular thyroid Obesity (BMI 30-39.9) Osteoporosis Preoperative examination Vitamin D deficiency Weight gain Surgical History Hx of section Hx of colonoscopy Hx of kyphoplasty Family History Family History Father Myocardial infarction CVD (cardiovascular disease) Mother Dementia Alzheimer disease Other Mental health disorder Social History Social History Household Members: Spouse Housing: House Alcohol intake: never Patient Tobacco Use Status: Never used Tobacco Smoked in Last 30 Days: No e-Cigarette/Vaping Use: Never Used Second Hand Smoke Exposure: No Use of substances other than those prescribed or required for medical reasons: No Advance Directives: No Advance Directives Information Provided: No service: No Current occupational status: unemployed Cognitive needs: No Hearing needs: No Physical Exam ED Vital Signs: Vital Signs - 24 hr 01/29/23 12:00 01/29/23 16:15 01/29/23 18:34 Temperature 98 F Pulse Rate 94 104 H 66 Respiratory Rate 19 18 12 Blood Pressure 161/80 H 115/79 120/66 Pulse Oximetry 100 99 95 Oxygen Delivery Method Room Air Room Air Room Air BMI result Body Mass Index 30.4 GEN: Well developed, no acute distress, alert, oriented HEENT: Normocephalic, atraumatic, normal external ears, nose appears normal, no oropharyngeal edema or exudates, TM clear bilaterally Eyes: Normal to appearance Neck: Supple, no lymphadenopathy Respiratory: Talks in complete sentences, no respiratory distress, clear to auscultation bilaterally Cardiovascular: Regular rate and rhythm, no murmurs rubs or gallops Abdomen: Soft, nontender, nondistended, no guarding, no rebound Back: No CVA tenderness Extremities: No clubbing cyanosis or edema Neurologic: No focal neurologic deficits, cranial nerves 2-12 intact, strength is 5/5 bilaterally Skin: No rash Course Course Course Narrative: RME- 72-year-old female presents for evaluation of headache cough, chest tightness. Plan for cardiac workup, chest x-ray, COVID swab. Vitals are stable, patient is well-appearing Reevaluation(s) Reevaluation #1: Patient's headache is a 4/10. Discussed all results. She will be discharged at this time. I will provide her with some headache medications. Medications Administered Discontinued Medications Generic Name Dose Route Start Last Admin Trade Name Juan PRN Reason Stop Dose Admin Acetaminophen 975 mg 01/29/23 16:21 01/29/23 17:55 Acetaminophen 325 Mg Tablet PO 01/29/23 16:22 975 mg ONCE ONE Administration Sodium Chloride 1,000 mls @ 999 mls/hr 01/29/23 16:30 01/29/23 17:55 Ns IV 01/29/23 17:30 999 mls/hr .Q1H1M BARRY Administration Ketorolac Tromethamine 15 mg 01/29/23 16:21 01/29/23 17:55 Ketorolac Tromethamine 15 Mg/Ml Vial IVPUSH 01/29/23 16:22 15 mg ONCE ONE Administration Metoclopramide HCl 10 mg 01/29/23 16:21 01/29/23 17:55 Metoclopramide Hcl 10 Mg/2 Ml Vial IVPUSH 01/29/23 16:22 10 mg ONCE ONE Administration Medical Decision Making Medical Decision Making [facility] Narrative: Patient presents with multiple complaints. One of her complaint is a headache. It is gradual in onset. She has no neck pain or stiffness. There are no meningeal signs. She is afebrile. Differential diagnosis includes tension headache, migraine headache, cluster headache, sinus headache. Doubt temporal arteritis, subarachnoid hemorrhage, meningitis. Plan will be to treat her symptomatically. She does not have a history of headaches. Will obtain a CT scan of the head to rule out mass effect is a possible other etiology. Patient does not clearly warrant an lumbar puncture. Patient also complains of some generalized myalgias, cough, sore throat, bilateral ear pain. Examination is unremarkable. This suggests that the ov erall etiology of her symptoms is likely a viral illness. I doubt COVID although that test has already been ordered. Will follow up on her routine laboratory testing and symptomatic relief. Differential Diagnosis Differential Diagnoses: The differential diagnosis associated with the presentation includes (See above) Admission/Observation Consideration of admission/observation: Escalation of care including admission/observation considered Lab Data [facility] Lab Attestation statement: I reviewed the patient's lab results. 01/29/23 12:25 01/29/23 12:25 Labs: Lab Results 01/29/23 01/29/23 01/29/23 Range/Units 12:25 12:25 12:25 WBC 6.0 (4.8-10.8) X10*3/uL RBC 5.00 (4.20-5.50) X10*6/uL Hgb 14.9 (12.0-16.0) g/dl Hct 44.5 (37.0-47.0) % MCV 89.0 (80.0-98.0) fL MCH 29.8 (27.0-33.0) pg MCHC 33.5 (31.0-35.0) g/dl RDW 14.8 (11.0-16.0) % Plt Count 190 (160-400) X10*3/uL MPV 10.6 (9.4-12.3) fL Immature Gran % (Auto) 0.5 H (0.0-0.4) % Neut % (Auto) 68.1 (45-73) % Lymph % (Auto) 23.6 (20-40) % Carolina % (Auto) 6.5 (2-11) % Eos % (Auto) 0.8 (0-4) % Baso % (Auto) 0.5 (0-2) % Lymph # (Auto) 1.4 (1.2-4.9) X10*3/uL Carolina # (Auto) 0.4 (0.1-1.2) X10*3/uL Eos # (Auto) 0.1 (0.0-0.4) X10*3/uL Baso # (Auto) 0.0 (0.0-0.2) X10*3/uL Abs Immat Gran (auto) 0.03 (0.00-0.03) X10*3/uL Absolute Neuts (auto) 4.1 (2.0-8.3) x10*3/uL Absolute Nucleated RBC 0.000 (0.0-0.012) X10*3/uL Nucleated RBC % (auto) 0.0 (0.0-0.2) /100WBC Sodium 137 (135-145) mmol/L Potassium 4.2 (3.3-5.1) mmol/L Chloride 106 (96-108) mmol/L Carbon Dioxide 25 (22-29) mmol/L Anion Gap 10 L (12-20) BUN 19 H (9-16) mg/dL Creatinine 1.11 (0.5-1.4) mg/dL Estim Creat Clear Calc 42.4 Estimated GFR 48 Random Glucose 117 H (60-115) mg/dL Calcium 10.1 (8.4-10.2) mg/dL Total Bilirubin 0.3 (0.0-1.0) mg/dL AST 21 (5-31) U/L ALT 24 (0-31) U/L Alkaline Phosphatase 71 (39-117) U/L Troponin I High Sens < 2.7 (<3.5-17.0) ng/L Total Protein 7.6 (6.5-8.0) g/dL Albumin 3.8 (3.5-5.0) g/dL Lipase 34 (8-78) U/L COVID-19 (EMILIANA) (Negative) COVID-19 Clin Com 01/29/23 Range/Units 12:25 WBC (4.8-10.8) X10*3/uL RBC (4.20-5.50) X10*6/uL Hgb (12.0-16.0) g/dl Hct (37.0-47.0) % MCV (80.0-98.0) fL MCH (27.0-33.0) pg MCHC (31.0-35.0) g/dl RDW (11.0-16.0) % Plt Count (160-400) X10*3/uL MPV (9.4-12.3) fL Immature Gran % (Auto) (0.0-0.4) % Neut % (Auto) (45-73) % Lymph % (Auto) (20-40) % Carolina % (Auto) (2-11) % Eos % (Auto) (0-4) % Baso % (Auto) (0-2) % Lymph # (Auto) (1.2-4.9) X10*3/uL Carolina # (Auto) (0.1-1.2) X10*3/uL Eos # (Auto) (0.0-0.4) X10*3/uL Baso # (Auto) (0.0-0.2) X10*3/uL Abs Immat Gran (auto) (0.00-0.03) X10*3/uL Absolute Neuts (auto) (2.0-8.3) x10*3/uL Absolute Nucleated RBC (0.0-0.012) X10*3/uL Nucleated RBC % (auto) (0.0-0.2) /100WBC Sodium (135-145) mmol/L Potassium (3.3-5.1) mmol/L Chloride (96-108) mmol/L Carbon Dioxide (22-29) mmol/L Anion Gap (12-20) BUN (9-16) mg/dL Creatinine (0.5-1.4) mg/dL Estim Creat Clear Calc Estimated GFR Random Glucose (60-115) mg/dL Calcium (8.4-10.2) mg/dL Total Bilirubin (0.0-1.0) mg/dL AST (5-31) U/L ALT (0-31) U/L Alkaline Phosphatase (39-117) U/L Troponin I High Sens (<3.5-17.0) ng/L Total Protein (6.5-8.0) g/dL Albumin (3.5-5.0) g/dL Lipase (8-78) U/L COVID-19 (EMILIANA) Negative (Negative) COVID-19 Clin Com See Note Independent Interpretation I performed an independent interpretation of an: EKG (Normal sinus rhythm heart rate 87, nonspecific T-wave changes, no acute ST elevations depressions, normal intervals, Q-waves noted in 3 and AVF suggestive of a possible old inferior wall TX), Plain X-Ray (Chest: No acute cardiopulmonary disease) and CT Scan (Head: NAD) Radiology Impression Discussion of test interpretation with radiology: I have reviewed the radio logist's reading. Radiologist Impression: CT/CT head/brain wo IV con IMPRESSION: No acute intracranial pathology. ? Dictated By: Pacheco Rodriguez MD Discharge Plan Discharge Clinical Impression: Acute headache Patient Disposition: Home, Self-Care Instructions: Acute Headache (ED) Prescriptions: New ruelwdbtrh-xsznybqkjeuqn-cfvq [Fioricet] 50-300-40 mg capsule 1 cap PO Q8H PRN (Reason: pain) Qty: 7 0RF No Action denosumab 60 mg/mL syringe 60 mg subcut [id number] Qty: 1 2RF levothyroxine 25 mcg tablet 25 mcg PO DAILY 30 Days Qty: 30 11RF levomefolate calcium 15 mg tablet 15 mg PO DAILY Qty: 30 3RF memantine 5 mg tablet 5 mg PO BID Qty: 180 1RF Caplyta 10.5 mg capsule 10.5 mg PO DAILY Qty: 30 2RF donepezil 5 mg tablet 5 mg PO BEDTIME Qty: 90 1RF doxepin 25 mg capsule 125 mg PO BEDTIME 30 Days Qty: 150 2RF folic acid 1 mg tablet 1 mg PO DAILY Qty: 90 1RF zolpidem 6.25 mg tablet,ext release multiphase 6.25 mg PO BEDTIME Qty: 30 2RF lorazepam 0.5 mg tablet See Rx Instructions .ROUTE .COMPLEX Qty: 90 1RF Rx Instructions: take 1/2 to one tab up to 3 times daily as needed for anxiety, try to use only 1/2 tab; thiamine HCl (vitamin B1) 100 mg tablet 100 mg PO BID 90 Days Qty: 180 1RF Trintellix 20 mg tablet 20 mg PO DAILY Qty: 90 1RF levomefolate-algal oil [Deplin (algal oil)] 15-90.314 mg capsule 1 cap PO DAILY Qty: 30 2RF Referrals: Brittany Tinajero MD [Primary Care Provider] - 5 days
[2023-01-29 12:34] LABS: MANUAL DIFF FLAG NO
[2023-01-29 12:42] LABS: Basophils Percent Auto 0.5 % (0-2); Eosinophils Absolute Auto 0.1 X10*3/uL (0.0-0.4); Eosinophils Percent Auto 0.8 % (0-4); Hematocrit 44.5 % (37.0-47.0); Hemoglobin 14.9 g/dl (12.0-16.0); Imm Gran Abs Auto 0.03 X10*3/uL (0.00-0.03); Imm Gran Pct Auto 0.5 % (0.0-0.4); Lymphocytes Absolute Auto 1.4 X10*3/uL (1.2-4.9); Lymphocytes Percent Auto 23.6 % (20-40); Mean Corpuscular HGB Conc 33.5 g/dl (31.0-35.0); Mean Corpuscular Hemoglobin 29.8 pg (27.0-33.0); Mean Platelet Volume 10.6 fL (9.4-12.3); Monocytes Absolute Auto 0.4 X10*3/uL (0.1-1.2); Monocytes Percent Auto 6.5 % (2-11); Neutrophils Absolute Auto 4.1 x10*3/uL (2.0-8.3); Neutrophils Percent Auto 68.1 % (45-73); Platelet Count 190 X10*3/uL (160-400); Red Cell Distribution Width 14.8 % (11.0-16.0)
[2023-01-29 12:54] LABS: Alanine Aminotransferase 24 U/L (0-31); Albumin Level 3.8 g/dL (3.5-5.0); Alkaline Phosphatase 71 U/L (39-117); Anion Gap 10 (12-20); Aspartate Amino Transferase 21 U/L (5-31); Bilirubin Total 0.3 mg/dL (0.0-1.0); Blood Urea Nitrogen 19 mg/dL (9-16); Calcium 10.1 mg/dL (8.4-10.2); Carbon Dioxide 25 mmol/L (22-29); Chloride 106 mmol/L (96-108); Creatinine Clr Calc Pharmacy 42.4; Estimated Glomerular Filt Rate 48; Glucose Random 117 mg/dL (60-115); Lipase 34 U/L (8-78); Potassium 4.2 mmol/L (3.3-5.1); Sodium 137 mmol/L (135-145); Total Protein 7.6 g/dL (6.5-8.0)
[2023-01-29 12:56] LABS: COVID-19 Test Negative (Negative); IDNOW Serial# BCCEAD1C
[2023-01-29 13:02] LABS: Troponin-I High Sensitivity < 2.7 ng/L (<3.5-17.0)
[2023-01-29 16:15] VITALS: BP 115/79; PULSE 104; RESP 18; O2SAT 99
--- NOTE | 2023-01-29 17:35 | PC.NURSE ---
pt a difficult poke. second nurse attempting IV placement at this time
[2023-01-29] MEDS: Acetaminophen 325 MG TABLET 975 MG PO (17:55)
[2023-01-29] MEDS: Metoclopramide HCl 10 MG/2 ML VIAL IVPUSH (17:55)
[2023-01-29] MEDS: 0.9 % Sodium Chloride 1,000 ML 999 ML IV (17:55)
[2023-01-29] MEDS: Ketorolac Tromethamine 15 MG/ML VIAL IVPUSH (17:55)
[2023-01-29 18:34] VITALS: BP 120/66; PULSE 66; RESP 12; O2SAT 95
== END 2023-01-29 20:40 | disposition home or self-care (01) ==
PROVIDERS: Physician Assistant; Emergency Provider Emergency Medicine; PCP Internal Medicine
DX: R51.9 Headache, unspecified (principal); Z20.822 Contact with and (suspected) exposure to COVID-19; R06.02 Shortness of breath
CPT/HCPCS: 70450; 71046; 80053; 83690; 84484; 85025; 87635; 93005; 96374; 96375; 99284; 99285; J1885; J2765

== ENCOUNTER 2023-02-14 11:29 | Emergency (ER) | payer MEDICARE, OTHER, SELFPAY ==
--- NOTE | ~2023-02-14 | CT_ITS ---
EXAMINATION: CT HEAD WITHOUT CONTRAST CLINICAL INFORMATION: Headache. COMPARISON: CT brain dated 01/29/2023. TECHNIQUE: Contiguous axial imaging was performed from the skull base to vertex without intravenous administration of contrast. Multiplanar reformatted images are submitted. This CT examination was performed using dose optimization techniques as appropriate, variously including the following: *Automated exposure control *Adjustment of mA and/or kV according to patient size (this includes techniques or standardized protocols for targeted exams where dose is matched to indication/reason for exam; i.e. extremities or head) *Use of iterative reconstruction technique DLP: 566 mGy-cm FINDINGS: There is no intracranial hemorrhage, hydrocephalus, extra-axial surface collection, midline shift, or other herniation pattern. Pearson to white matter differentiation is diffusely maintained without evidence of an evolved acute territorial infarct. There is stable mild patchy low attenuation change in the periventricular and subcortical white matter spaces. The basilar cisterns are preserved. No significant soft tissue abnormality. No acute osseous abnormality. The paranasal sinuses and the mastoid air cells are well aerated. CT/CT head/brain wo IV con IMPRESSION: 1. No acute intracranial abnormality. 2. There is stable mild patchy low attenuation change in the periventricular and subcortical white matter spaces, commonly associated with chronic microangiopathy.
--- NOTE | ~2023-02-14 | XR_ITS ---
EXAMINATION: XR CHEST CLINICAL INFORMATION: Coughing. COMPARISON: Chest radiographs dated 01/29/2023. TECHNIQUE: Frontal view of the chest was obtained. FINDINGS: The heart, great vessels, pulmonary vasculature and mediastinum are normal. Lung volumes are rather diminished, with some crowding of the bronchovascular and pulmonary parenchymal markings. There is stable mild elevation the right hemidiaphragm. There is mild pulmonary vascular congestion, without overt pulmonary edema. No infiltrate, effusion or pneumothorax is seen. There is no acute osseous abnormality. XR/XR chest 1V IMPRESSION: 1. There is mild pulmonary vascular congestion, without overt congestive pulmonary edema. 2. No focal infiltrate is seen. 3. Lung volumes are mildly diminished.
[2023-02-14 11:47] VITALS: BP 115/76; PULSE 100; RESP 19; TEMP 36.6; O2SAT 93; BMI 30.2
[2023-02-14 14:57] VITALS: BP 126/81; PULSE 90; RESP 16; TEMP 36.6; O2SAT 95
--- NOTE | 2023-02-14 15:01 | PC.NURSE ---
pt a&ox3, vss, pt comes in d/t headache that started 4 days ago. pt also verbalizing bilateral eye pain, neck stiffness, and cough. pt denies n/v/d/blurry vision. pt states that she came here a few days ago for the same issue but still doesn't feel good. pt takes tylenol w/o any relief. pt verbalizes that she has hx of depression and takes medication for it - pt states that she noticed that headache resolves after taking antidepressant but soon comes back afterwards.
--- NOTE | 2023-02-14 15:26 | ED_ITS ---
HPI - Headache General Chief Complaint: Headache Stated Complaint: headache Time Seen by Provider: 02/14/23 15:22 Source: patient Mode of arrival: ambulatory Limitations: no limitations History of Present Illness HPI Narrative: 72-year-old female with history of major depression presents with headache. The headache started 3 days ago. It is generalized. Started gradually increased in significance over the course the past few days. She describes the pain as needed 10. Is a pressure pain. It does not associated with nausea vomiting, vision changes. She denies any fevers but has had some subjective chills. She has had bilateral ear pain. She has had no numbness, tingling or generalized weakness. She does describe some generalized myalgias and fatigue, in her low back and upper back. She denies any neck stiffness. Pain was not sudden in onset. She has also had a cough but no shortness of breath. She describes a chest discomfort but not pain or pressure. There is no increase in exertion. She does describe some mild photo and phonophobia. Patient was seen and evaluated for similar presentation 2 weeks ago. Related Data Previous Rx's Medication Instructions Recorded denosumab 60 mg/mL subcutaneous 60 mg subcut [id number] #1 mL 06/19/21 syringe levothyroxine 25 mcg tablet 25 mcg PO DAILY 30 days #30 tabs 01/29/22 levomefolate 15 mg-algal oil 1 cap PO DAILY #30 caps 04/09/22 90.314 mg capsule (Deplin (algal oil)) levomefolate calcium 15 mg tablet 15 mg PO DAILY #30 tabs 04/10/22 memantine 5 mg tablet 5 mg PO BID #180 tabs 08/29/22 donepezil 5 mg tablet 5 mg PO BEDTIME #90 tabs 11/13/22 doxepin 25 mg capsule 125 mg (5 x 25 mg) PO BEDTIME 30 11/17/22 days #150 caps folic acid 1 mg tablet 1 mg PO DAILY #90 tabs 11/25/22 zolpidem 6.25 mg tablet,extended 6.25 mg PO BEDTIME #30 tabs 12/05/22 release,multiphase thiamine HCl (vitamin B1) 100 mg 100 mg PO BID 90 days #180 tabs 12/22/22 tablet vortioxetine 20 mg tablet 20 mg PO DAILY #90 tabs 01/23/23 (Trintellix) qajpdspmeo-yjkkegnkrzwic-iwbnnfsz 1 cap PO Q8H PRN pain #7 caps 01/29/23 50 mg-300 mg-40 mg capsule (Fioricet) lorazepam 0.5 mg tablet See Rx Instructions .Route 01/30/23 .COMPLEX #90 tabs lumateperone 10.5 mg capsule 10.5 mg PO DAILY #30 caps 01/30/23 (Caplyta) Allergies Allergy/AdvReac Type Severity Reaction Status Date / Time risperidone [From Risperdal] Allergy Intermediate UNKNOWN Verified 02/14/23 11:47 Sulfa (Sulfonamide Allergy Intermediate rash Verified 02/14/23 11:47 Antibiotics) From BENADRYL Allergy Intermediate DIZZY Uncoded 02/14/23 11:47 Review of Systems 2 Review of Systems: All other systems are reviewed and are negative Constitutional: Reports as per HPI and Reports no additional constitutional complaints Eyes: Reports as per HPI and Reports no additional eye complaints Reports system reviewed and no additional complaints, except as documented Cardiovascular: Reports as per HPI and Reports no additional cardiovascular complaints Respiratory: Reports as per HPI and Reports no additional respiratory complaints Gastrointestinal: Reports as per HPI and Reports no additional gastrointestinal complaints Genitourinary: Reports no additional female genitourinary complaints Musculoskeletal: Reports no additional musculoskeletal complaints Skin/Breast: Reports system reviewed and no additional complaints, except as docu Psychiatric: Reports no additional psychiatric complaints Endocrine: Reports no additional endocrine complaints Hematologic/Lymphatic: Reports no additional hematologic/lymphatic complaints Allergic/Immunologic: Reports no additional allergic/immunologic complaints Reports system reviewed and no additional complaints, except as documented and Reports Abnormal speech present [facility] Past Medical History Medical History Major depression, recurrent, full remission Obesity (BMI 30-39.9) Preoperative examination Depression, major, severe recurrence Abnormal serum protein electrophoresis POONAM (generalized anxiety disorder) Mild recurrent major depression Hypothyroidism Depression with anxiety Abdominal distention Weight gain Hyperparathyroidism Multinodular thyroid Vitamin D deficiency Osteoporosis Surgical History Hx of colonoscopy Hx of kyphoplasty Hx of section Family History Family History Father Myocardial infarction CVD (cardiovascular disease) Mother Dementia Alzheimer disease Other Mental health disorder Social History Social History Household Members: Spouse Housing: House Alcohol intake: never Patient Tobacco Use Status: Never used Tobacco Smoked in Last 30 Days: No e-Cigarette/Vaping Use: Never Used Second Hand Smoke Exposure: No Use of substances other than those prescribed or required for medical reasons: No Advance Directives: No service: No Current occupational status: unemployed Cognitive needs: No Hearing needs: No Physical Exam 2 Vital Signs: Vital Signs: Last Vital Signs Temp 97.8 F 02/14/23 14:57 Pulse 90 02/14/23 14:57 Resp 16 02/14/23 14:57 BP 126/81 02/14/23 14:57 Pulse Ox 95 02/14/23 14:57 O2 Del Method Room Air 02/14/23 14:57 BMI result Body Mass Index 30.2 Vital signs have been reviewed and appear to be correct. Blood pressure elevated. Heart rate normal. Respiratory rate normal. Temperature normal. Oxygen saturation normal. Appearance: Alert. Oriented X3. No acute distress. Head: Normal external exam. Normocephalic. Atraumatic. No Price signs noted. No raccoon eyes noted Eyes: PERRLA. EOMI. Conjunctiva and sclera normal. Eyelids normal. ENT: TM's Normal. Pharynx normal. Uvula midline. Moist mucous membranes. No trismus noted. No drooling noted. No muffled voice noted. Neck: Normal inspection. Neck supple. FROM. No adenopathy. Thyroid Normal. No meningeal signs. No neck mass noted. CVS: Normal heart rate and rhythm. Heart sound normal. No murmurs noted. Pulses normal throughout. Respiratory: No respiratory distress. Painless inspiration. Breath sounds normal. No wheezes/rales/rhonchi noted. Chest nontender. No accessory muscle usage noted or decreased air movement noted. Abdomen: Soft and nontender. Bowel sounds normal in all 4 quadrants. No distention noted. No organomegaly noted. No visible injury noted. Back: No CVA tenderness. Full range of motion noted. Skin: Skin warm and dry. Normal skin color. Normal skin turgor. No rashes/lesions/lacerations noted. Extremities: No lower extremity edema. Extremities exhibit normal range of motion. Extremities nontender. Neuro: Oriented X 3. Cranial nerve exam: II-XII are grossly intact No motor deficit. No sensory deficit. Reflexes normal. Course Course Course Narrative: A 72-year-old female came in for headache x1 week, patient was seen in the emergency department 2 weeks ago for similar symptoms, patient has a normal neuro exam, was unremarkable head CT, symptoms improved after IV fluid and 1 oxycodone. No nausea, no vomiting, no stiff neck, no photophobia now. Patient was instructed to follow up with PCP. Coughing negative viral panel and chest x-ray for pneumonia. Medications Administered Discontinued Medications Generic Name Dose Route Start Last Admin Trade Name Freq PRN Reason Stop Dose Admin Sodium Chloride 1,000 mls @ 999 mls/hr 02/14/23 15:29 02/14/23 16:50 Ns IV 02/14/23 16:29 Infused .Q1H1M ONE Infusion Medical Decision Making Differential Diagnosis Differential Diagnoses: The differential diagnosis associated with the presentation includes (Tension headache, viral syndrome, pneumonia, dehydration, electrolyte abnormality, severe anemia) Lab Data 02/14/23 15:48 02/14/23 15:47 Labs: Lab Results 02/14/23 02/14/23 Range/Units 15:47 15:48 WBC 8.2 (4.8-10.8) X10*3/uL RBC 5.32 (4.20-5.50) X10*6/uL Hgb 15.7 (12.0-16.0) g/dl Hct 47.5 H (37.0-47.0) % MCV 89.3 (80.0-98.0) fL MCH 29.5 (27.0-33.0) pg MCHC 33.1 (31.0-35.0) g/dl RDW 15.1 (11.0-16.0) % Plt Count 213 (160-400) X10*3/uL MPV 11.1 (9.4-12.3) fL Immature Gran % (Auto) 0.4 (0.0-0.4) % Neut % (Auto) 78.7 H (45-73) % Lymph % (Auto) 16.1 L (20-40) % Nelson % (Auto) 4.2 (2-11) % Eos % (Auto) 0.2 (0-4) % Baso % (Auto) 0.4 (0-2) % Lymph # (Auto) 1.3 (1.2-4.9) X10*3/uL Nelson # (Auto) 0.3 (0.1-1.2) X10*3/uL Eos # (Auto) 0.0 (0.0-0.4) X10*3/uL Baso # (Auto) 0.0 (0.0-0.2) X10*3/uL Abs Immat Gran (auto) 0.03 (0.00-0.03) X10*3/uL Absolute Neuts (auto) 6.5 (2.0-8.3) x10*3/uL Absolute Nucleated RBC 0.000 (0.0-0.012) X10*3/uL Nucleated RBC % (auto) 0.0 (0.0-0.2) /100WBC Troponin I High Sens < 2.7 (<3.5-17.0) ng/L B-Natriuretic Peptide < 10 (<100) pg/mL Independent Interpretation I performed an independent interpretation of an: EKG (Normal sinus rhythm at 75 beats per minutes, for normal intervals, no ST-T changes, no change from previous EKG.), Plain X-Ray (Chest: No acute intrathoracic pathology.) and CT Scan (Head:. No acute intracranial abnormality. 2. There is stable mild patchy low attenuation change in the periventricular and subcortical white matter spaces, commonly associated with chronic microangiopathy. ) Radiology Impression Discussion of test interpretation with radiology: I have reviewed the radiologist's reading. Discharge Plan Discharge Clinical Impression: Tension headache Patient Disposition: Home, Self-Care Instructions: Tension Headache (ED) Prescriptions: No Action denosumab 60 mg/mL syringe 60 mg subcut [id number] Qty: 1 2RF levothyroxine 25 mcg tablet 25 mcg PO DAILY 30 Days Qty: 30 11RF levomefolate calcium 15 mg tablet 15 mg PO DAILY Qty: 30 3RF memantine 5 mg tablet 5 mg PO BID Qty: 180 1RF donepezil 5 mg tablet 5 mg PO BEDTIME Qty: 90 1RF doxepin 25 mg capsule 125 mg PO BEDTIME 30 Days Qty: 150 2RF folic acid 1 mg tablet 1 mg PO DAILY Qty: 90 1RF zolpidem 6.25 mg tablet,ext release multiphase 6.25 mg PO BEDTIME Qty: 30 2RF thiamine HCl (vitamin B1) 100 mg tablet 100 mg PO BID 90 Days Qty: 180 1RF Trintellix 20 mg tablet 20 mg PO DAILY Qty: 90 1RF Caplyta 10.5 mg capsule 10.5 mg PO DAILY Qty: 30 2RF lorazepam 0.5 mg tablet See Rx Instructions .ROUTE .COMPLEX Qty: 90 1RF Rx Instructions: take 1/2 to one tab up to 3 times daily as needed for anxiety, try to use only 1/2 tab; [id number]-hwqctnqlbtazs-qnpr [Fioricet] 50-300-40 mg capsule 1 cap PO Q8H PRN (Reason: pain) Qty: 7 0RF levomefolate-algal oil [Deplin (algal oil)] 15-90.314 mg capsule 1 cap PO DAILY Qty: 30 2RF Referrals: Brittany Tinajero MD [Primary Care Provider] -
--- NOTE | 2023-02-14 15:29 | ECG_ITS ---
Test Reason : WEAKNESS Blood Pressure : / mmHG Vent. Rate : 075 BPM Atrial Rate : 075 BPM P-R Int : 156 ms QRS Dur : 076 ms QT Int : 382 ms P-R-T Axes : 052 006 038 degrees QTc Int : 426 ms Normal sinus rhythm Inferior infarct (cited on or before 29-JAN-2023) Abnormal ECG When compared with ECG of 29-JAN-2023 12:19, No significant change was found Referred By: Tee Swenson Electronically Signed By:REMA MONTEMAYOR
[2023-02-14] MEDS: 0.9 % Sodium Chloride 1,000 ML 999 ML IV (15:49)
--- NOTE | 2023-02-14 15:58 | PC.NURSE ---
22gIV placed in the right hand w/o complications - labs drawn and sent to lab. IVF administered per provider order. tech performing ekg.
[2023-02-14 16:02] LABS: MANUAL DIFF FLAG NO
[2023-02-14 16:03] LABS: Basophils Percent Auto 0.4 % (0-2); Eosinophils Percent Auto 0.2 % (0-4); Hematocrit 47.5 % (37.0-47.0); Hemoglobin 15.7 g/dl (12.0-16.0); Imm Gran Abs Auto 0.03 X10*3/uL (0.00-0.03); Imm Gran Pct Auto 0.4 % (0.0-0.4); Lymphocytes Absolute Auto 1.3 X10*3/uL (1.2-4.9); Lymphocytes Percent Auto 16.1 % (20-40); Mean Corpuscular HGB Conc 33.1 g/dl (31.0-35.0); Mean Corpuscular Hemoglobin 29.5 pg (27.0-33.0); Mean Corpuscular Volume 89.3 fL (80.0-98.0); Mean Platelet Volume 11.1 fL (9.4-12.3); Monocytes Absolute Auto 0.3 X10*3/uL (0.1-1.2); Monocytes Percent Auto 4.2 % (2-11); Neutrophils Absolute Auto 6.5 x10*3/uL (2.0-8.3); Neutrophils Percent Auto 78.7 % (45-73); Platelet Count 213 X10*3/uL (160-400); Red Blood Count 5.32 X10*6/uL (4.20-5.50); Red Cell Distribution Width 15.1 % (11.0-16.0); White Blood Count 8.2 X10*3/uL (4.8-10.8)
[2023-02-14 16:25] LABS: B Type Natriuretic Peptide < 10 pg/mL (<100)
[2023-02-14 16:26] LABS: Troponin-I High Sensitivity < 2.7 ng/L (<3.5-17.0)
[2023-02-14] MEDS: oxyCODONE HCl Immed Release 5 MG TABLET PO (18:04)
--- NOTE | 2023-02-14 18:04 | PC.NURSE ---
medication administered per provider order.
[2023-02-14 18:07] LABS: Alanine Aminotransferase 25 U/L (0-31); Albumin Level 3.8 g/dL (3.5-5.0); Alkaline Phosphatase 80 U/L (39-117); Anion Gap 11 (12-20); Aspartate Amino Transferase 22 U/L (5-31); Bilirubin Direct 0.1 mg/dL (0.0-0.5); Bilirubin Total 0.3 mg/dL (0.0-1.0); Blood Urea Nitrogen 15 mg/dL (9-16); Calcium 9.3 mg/dL (8.4-10.2); Carbon Dioxide 26 mmol/L (22-29); Chloride 108 mmol/L (96-108); Creatinine Clr Calc Pharmacy 52.8; Estimated Glomerular Filt Rate > 60; Glucose Random 106 mg/dL (60-115); Lipase 35 U/L (8-78); Sodium 141 mmol/L (135-145); Total Protein 7.5 g/dL (6.5-8.0)
[2023-02-14 18:22] LABS: Influenza A PCR NEGATIVE (Negative); Influenza B PCR NEGATIVE (Negative); Resp Syncy Virus RNA Qual PCR NEGATIVE (Negative); SARS COV2 PCR INHOUSE NEGATIVE (Negative)
== END 2023-02-14 18:58 | disposition home or self-care (01) ==
PROVIDERS: Emergency Provider Emergency Medicine; PCP Internal Medicine
DX: G44.209 Tension-type headache, unspecified, not intractable (principal); Z20.822 Contact with and (suspected) exposure to COVID-19; Z20.828 Contact with and (suspected) exposure to other viral communicable diseases
CPT/HCPCS: 0241U; 36415; 70450; 71045; 80048; 80076; 83690; 83880; 84484; 85025; 93005; 96360; 99284; 99285

== ENCOUNTER 2023-02-19 10:58 | Outpatient (AMB) | payer MEDICARE, SELFPAY ==
--- NOTE | 2023-02-19 13:35 | A.OFFPSYCH_ITS ---
Intake Intake Visit Reasons: depression Allergies risperidone [From Risperdal] Allergy (Intermediate, Verified 02/14/23 11:47) UNKNOWN Sulfa (Sulfonamide Antibiotics) Allergy (Intermediate, Verified 02/14/23 11:47) rash From BENADRYL Allergy (Intermediate, Uncoded 02/14/23 11:47) DIZZY Medication List - Last Reconciled 02/19/23 by Broderick Willett MD denosumab 60 mg subcut [id number] donepezil 5 mg PO BEDTIME doxepin 100 mg (4 x 25 mg) PO BEDTIME 30 days folic acid 1 mg PO DAILY levomefolate calcium 15 mg PO DAILY levomefolate-algal oil 15-90.314 mg (Deplin (algal oil)) 1 cap PO DAILY levothyroxine 25 mcg PO DAILY 30 days lorazepam take 1/2 to one tab up to 3 times daily as needed for anxiety, try to use only 1/2 tab; lumateperone 21 mg PO DAILY memantine 5 mg PO BID thiamine HCl (vitamin B1) 100 mg PO BID 90 days vortioxetine (Trintellix) 20 mg PO DAILY zolpidem ER 6.25 mg PO BEDTIME HPI- Psychiatric Chief Complaint: depression HPI Narrative: Patient has had an increase in depressive symptoms anxiety and rumination. She had a viral syndrome a couple weeks ago became increasingly anxious and ruminating has been to the emergency room on 2 occasions. Patient was diagnosed with a viral syndrome and dehydration was given fluids head CT scan was unremarkable. Patient has some degree of memory impairment in working attention difficulties which has been stable now for number of years and has been on Aricept and Namenda this generally has not been progressive. Head CT scan shows mild angiopathy. She has been on a combination of Trintellix dot doxepin and caplyta. there is a history of mild cycling. history of past response to ECT did not respond to TMS Past Psychiatric History: Patient with long history of recurrent depression with multiple prior psychiatric hospitalizations. 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 no classic bipolar symptoms past depressive psychotic episodes not for a number of years Mental Status Exam Mental Status Exam Narrative: Mental Status Exam Narrative: Appearance: Casually dressed said look Behavior: Cooperative appropriate psychomotor: Within normal limits Speech: Normal volume and prosody Thought proccess logical and goal-directed somewhat ruminating Thought content: Future oriented worry regarding her future and her medical condition Mood: anxious and dysphoric Affect: Appropriate to mood constrict SI:denies HI:denies VH/AH:none Delusions: None Insight/judgment: Good insight and judgment Memory/cog: Generally intact some difficulty at times with short-term memory but generally knows her medications her conditions alert Assessment and Plan Assessment & Plan (1) Depression, major, severe recurrence: Status: Acute Qualifiers: Psychotic features: without psychotic features Qualified Code(s): F33.2 - Major depressive disorder, recurrent severe without psychotic features Code(s): F33.2 - Major depressive disorder, recurrent severe without psychotic features (2) POONAM (generalized anxiety disorder): Status: Acute Code(s): F41.1 - Generalized anxiety disorder Plan increase Caplyta to 21 mg in the evening. Warned regarding potential did need dizziness unsteady gait lower doxepin to 100 mg at bedtime she has tolerated this for an extended period time and has been relatively stable and not needing psychiatric hospitalization for an extended period of time continue Trintellix patient to call within next week follow-up appointment 3 weeks warned regarding side effects risks benefits Medications: Changed From lumateperone (Caplyta) 10.5 mg PO DAILY 30 caps 2RF To lumateperone 21 mg PO DAILY 30 caps 2RF From doxepin 125 mg (5 x 25 mg) PO BEDTIME 30 days 150 caps 2RF To doxepin 100 mg (4 x 25 mg) PO BEDTIME 30 days 120 caps 2RF Discontinued havipzcjlu-powserjusmtmw-oqva 50-300-40 mg (Fioricet) Discontinued Reason: Doctor's Order 1 cap PO Q8H PRN 7 caps 0RF pain Counseling and coordination of Care Pt. Self Management counseling: Sleep hygiene and Behavior activation Details-Self Mgmt counseling: support regarding dealing with chronic mental illness Medication management counseling: Effectiveness, Side effects and Dosing range Diagnosis and Prognosis Counseling: Impact of diagnosis on life functions, Problematic behaviors secondary to diagnosis and Adequacy of current interventions Details: I spent [40] minutes reviewing the record, seeing the patient and documenting in the medical record. Counseling provided to the patient/caregiver as outlined below. Addressed patient/caregiver concerns regarding current medication regime including effective adherence. Addressed patient/caregiver concerns regarding diagnosis and prognosis including accuracy of diagnosis, prognosis over time, impact of diagnosis. Addressed patient/caregiver concerns regarding impact of recent stressors. [facility] Medical History Major depression, recurrent, full remission Obesity (BMI 30-39.9) Preoperative examination Depression, major, severe recurrence Abnormal serum protein electrophoresis POONAM (generalized anxiety disorder) Mild recurrent major depression Hypothyroidism Depression with anxiety Abdominal distention Weight gain Hyperparathyroidism Multinodular thyroid Vitamin D deficiency Osteoporosis Surgical History Hx of colonoscopy Hx of kyphoplasty Hx of section Family History Father Myocardial infarction CVD (cardiovascular disease) Mother Dementia Alzheimer disease Other Mental health disorder Social History Household Members: Spouse Housing: House Alcohol intake: never Patient Tobacco Use Status: Never used Tobacco e-Cigarette/Vaping Use: Never Used Second Hand Smoke Exposure: No service: No Current occupational status: unemployed Cognitive needs: No Hearing needs: No Social History: Patient disabled has 1 son. Chronic anxiety has an intermittent difficult relationship with her mostly has not worked Substance History: None Trauma History: None noted Coding Level of Care Code Est Pt Level 3 (51495) Therapy 30m w/E&M (42261) Diagnoses Severe episode of recurrent major depressive disorder, without psychotic features F33.2 Psychotic features: without psychotic features POONAM (generalized anxiety disorder) F41.1
== END 2023-02-19 13:13 | disposition home or self-care (01) ==
LOC: HO.HOP 10:58
PROVIDERS: PCP Internal Medicine; Visit Provider Psychiatry & Neurology Psychiatry
DX: F33.2 Major depressive disorder, recurrent severe without psychotic features (principal); F41.1 Generalized anxiety disorder
CPT/HCPCS: 90833; 99213

== ENCOUNTER → 2023-02-19 10:58 | Outpatient (BNVA) | payer MEDICARE, OTHER, SELFPAY | PROVIDERS: PCP Internal Medicine; Visit Provider Psychiatry & Neurology Psychiatry | DX: F33.2 Major depressive disorder, recurrent severe without psychotic features (principal); F41.1 Generalized anxiety disorder; Z79.899 Other long term (current) drug therapy | CPT/HCPCS: 90833; 99212 ==

== ENCOUNTER → 2023-03-20 13:32 | Outpatient (BNVA) | payer MEDICARE, SELFPAY | PROVIDERS: PCP Internal Medicine; Visit Provider Psychiatry & Neurology Psychiatry ==

== ENCOUNTER 2023-05-08 11:55 | Outpatient (AMB) | payer MEDICARE, SELFPAY ==
--- NOTE | 2023-05-08 12:43 | A.OFFPSYCH_ITS ---
Intake Intake Visit Reasons: depression Allergies risperidone [From Risperdal] Allergy (Intermediate, Verified 02/14/23 11:47) UNKNOWN Sulfa (Sulfonamide Antibiotics) Allergy (Intermediate, Verified 02/14/23 11:47) rash From BENADRYL Allergy (Intermediate, Uncoded 02/14/23 11:47) DIZZY Medication List - Last Reconciled 05/08/23 by Broderick Willett MD denosumab 60 mg subcut [id number] donepezil 5 mg PO BEDTIME doxepin 100 mg (4 x 25 mg) PO BEDTIME 30 days folic acid 1 mg PO DAILY levomefolate calcium 15 mg PO DAILY levomefolate-algal oil 15-90.314 mg (Deplin (algal oil)) 1 cap PO DAILY levothyroxine 25 mcg PO DAILY 30 days lorazepam take 1/2 to one tab up to 3 times daily as needed for anxiety, try to use only 1/2 tab; lumateperone 21 mg PO DAILY memantine 5 mg PO BID thiamine HCl (vitamin B1) 100 mg PO BID 90 days vortioxetine (Trintellix) 20 mg PO DAILY zolpidem ER 6.25 mg PO BEDTIME HPI- Psychiatric Chief Complaint: depression HPI Narrative: Pt is a 72 yo female has been doing quite well generally has done well with caplyta her h recently was dx ? MS has diabetes otherwise the pt doing well mood full able to enjoy things Past Psychiatric History: Patient with long history of recurrent depression with multiple prior psychiatric hospitalizations. 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 no classic bipolar symptoms past depressive psychotic episodes not for a number of years Mental Status Exam Mental Status Exam Narrative: Mental Status Exam Narrative: Appearance: Casually dressed said look Behavior: Cooperative appropriate psychomotor: Within normal limits Speech: Normal volume and prosody Thought proccess logical and goal-directed somewhat ruminating Thought content: Future oriented some concerns re her Mood: euthymic Affect: Appropriate to mood SI:denies HI:denies VH/AH:none Delusions: None Insight/judgment: Good insight and judgment Memory/cog: Generally intact some difficulty at times with attention but generally knows her medications her conditions alert Assessment and Plan Assessment & Plan (1) Major depression, recurrent, full remission: Status: Acute Code(s): F33.42 - Major depressive disorder, recurrent, in full remission (2) Osteoporosis: Status: Acute Qualifiers: Osteoporosis type: unspecified Presence of current pathological fracture: unspecified Qualified Code(s): M81.0 - Age-related osteoporosis without current pathological fracture Code(s): M81.0 - Age-related osteoporosis without current pathological fracture (3) POONAM (generalized anxiety disorder): Status: Acute Code(s): F41.1 - Generalized anxiety disorder Plan urged pt to taper lorazepam to help with memory cont caplyta doxepin trintellix Orders: Orders Vitamin D 25-OH (D2 and D3) 05/08/23 M81.0 - Age-related osteoporosis without current pathological fracture Counseling and coordination of Care Details: I spent [] minutes reviewing the record, seeing the patient and documenting in the medical record. Counseling provided to the patient/caregiver as outlined below. Addressed patient/caregiver concerns regarding current medication regime including effective adherence. Addressed patient/caregiver concerns regarding diagnosis and prognosis including accuracy of diagnosis, prognosis over time, impact of diagnosis. Addressed patient/caregiver concerns regarding impact of recent stressors. [facility] Medical History Major depression, recurrent, full remission Obesity (BMI 30-39.9) Preoperative examination Depression, major, severe recurrence Abnormal serum protein electrophoresis POONAM (generalized anxiety disorder) Mild recurrent major depression Hypothyroidism Depression with anxiety Abdominal distention Weight gain Hyperparathyroidism Multinodular thyroid Vitamin D deficiency Osteoporosis Surgical History Hx of colonoscopy Hx of kyphoplasty Hx of section Family History Father Myocardial infarction CVD (cardiovascular disease) Mother Dementia Alzheimer disease Other Mental health disorder Social History Household Members: Spouse Housing: House Alcohol intake: never Patient Tobacco Use Status: Never used Tobacco e-Cigarette/Vaping Use: Never Used Second Hand Smoke Exposure: No service: No Current occupational status: unemployed Cognitive needs: No Hearing needs: No Social History: Patient disabled has 1 son. Chronic anxiety has an intermittent difficult relationship with her mostly has not worked Substance History: None Trauma History: None noted Coding Level of Care Code Est Pt Level 3 (90770) Therapy 30m w/E&M (93386) Diagnoses Major depression, recurrent, full remission F33.42 Osteoporosis, unspecified osteoporosis type, unspecified pathological fracture presence M81.0 Osteoporosis type: unspecified Presence of current pathological fracture: unspecified POONAM (generalized anxiety disorder) F41.1
== END 2023-05-08 13:01 | disposition home or self-care (01) ==
LOC: HO.HOP 11:55
PROVIDERS: PCP Internal Medicine; Visit Provider Psychiatry & Neurology Psychiatry
DX: F33.42 Major depressive disorder, recurrent, in full remission (principal); M81.0 Age-related osteoporosis without current pathological fracture; F41.1 Generalized anxiety disorder
CPT/HCPCS: 90833; 99213

== ENCOUNTER → 2023-05-08 11:55 | Outpatient (BNVA) | payer MEDICARE, SELFPAY | PROVIDERS: PCP Internal Medicine; Visit Provider Psychiatry & Neurology Psychiatry | DX: F33.42 Major depressive disorder, recurrent, in full remission (principal); F41.1 Generalized anxiety disorder; M81.0 Age-related osteoporosis without current pathological fracture | CPT/HCPCS: 90833; 99212 ==

== ENCOUNTER 2023-05-11 18:57 | Emergency (ER) | payer MEDICARE, OTHER, SELFPAY ==
--- NOTE | 2023-05-11 19:46 | ED.GENADULT ---
HPI - General Adult General Chief complaint: General Medical Stated complaint: ? bladder infection, vaginal itching Source: patient Mode of arrival: ambulatory Limitations: no limitations History of Present Illness HPI narrative: Patient is a 72 year old assigned female at with a history of MDD and POONAM presenting to the emergency department today with vaginal irritation and pain with urination. Patient states that lately she has been experiencing vaginal irritation and pain with urination. Patient denies any dizziness, lightheadedness, abdominal pain, nausea, vomiting, fever, chills, blurry vision, double vision, loss of vision, chest pain, difficulty breathing, shortness of breath, back pain, night sweats, increased urinary frequency, increased urinary urgency, blood in her urine or stool, syncope or a near syncopal episode, recent trauma or falls, bowel incontinence, bladder incontinence, bowel retention, bladder retention, or any other complaints at this time. Onset (ago): day(s) Severity: mild Severity scale (1-10): 3 Relieving factors: none Exacerbating factors: none Associated symptoms: denies other symptoms Treatments prior to arrival: none Related Data Previous Rx's Medication Instructions Recorded denosumab 60 mg/mL subcutaneous 60 mg subcut [id number] #1 mL 06/19/21 syringe levothyroxine 25 mcg tablet 25 mcg PO DAILY 30 days #30 tabs 01/29/22 levomefolate 15 mg-algal oil 1 cap PO DAILY #30 caps 04/09/22 90.314 mg capsule (Deplin (algal oil)) levomefolate calcium 15 mg tablet 15 mg PO DAILY #30 tabs 04/10/22 donepezil 5 mg tablet 5 mg PO BEDTIME #90 tabs 11/13/22 folic acid 1 mg tablet 1 mg PO DAILY #90 tabs 11/25/22 thiamine HCl (vitamin B1) 100 mg 100 mg PO BID 90 days #180 tabs 12/22/22 tablet vortioxetine 20 mg tablet 20 mg PO DAILY #90 tabs 01/23/23 (Trintellix) doxepin 25 mg capsule 100 mg (4 x 25 mg) PO BEDTIME 30 02/24/23 days #120 caps zolpidem 6.25 mg tablet,extended 6.25 mg PO BEDTIME #30 tabs 03/02/23 release,multiphase memantine 5 mg tablet 5 mg PO BID #180 tabs 03/11/23 lorazepam 0.5 mg tablet See Rx Instructions .Route 03/20/23 .COMPLEX #90 tabs lumateperone 21 mg capsule 21 mg PO DAILY #30 caps 05/08/23 Allergies Allergy/AdvReac Type Severity Reaction Status Date / Time risperidone [From Risperdal] Allergy Intermediate UNKNOWN Verified 02/14/23 11:47 Sulfa (Sulfonamide Allergy Intermediate rash Verified 02/14/23 11:47 Antibiotics) From BENADRYL Allergy Intermediate DIZZY Uncoded 02/14/23 11:47 Review of Systems Constitutional: Constitutional: Reports no additional constitutional complaints, Denies chills, Denies fever(s) and Denies night sweats Eyes: Eyes: Reports no additional eye complaints, Denies blurry vision, Denies change in vision, Denies diplopia, Denies eye discharge, Denies loss of vision and Denies eye pain ENT: Denies dizziness Cardiovascular: Cardiovascular: Reports no additional cardiovascular complaints, Denies chest pain, Denies lightheadedness, Denies Loss of Consciousness and Denies dyspnea Respiratory: Respiratory: Reports no additional respiratory complaints and Denies dyspnea Gastrointestinal: Gastrointestinal: Reports no additional gastrointestinal complaints, Denies abdominal pain, Denies melena, Denies hematochezia, Denies change in bowel habits and Denies change in stool character Genitourinary: Genitourinary: Denies hematuria, Denies urinary frequency, Reports dysuria, Denies urinary incontinence, Denies urinary hesitancy and Denies urinary urgency Comments: vaginal irritation Musculoskeletal: Musculoskeletal: Reports no additional musculoskeletal complaints, Denies numbness and Denies tingling Neurologic: Denies dizziness, Denies loss of vision, Denies numbness and Denies tingling Psychiatric: Psychiatric: Reports no additional psychiatric complaints Endocrine: Endocrine: Reports no additional endocrine complaints Hematologic/Lymphatic: Hematologic/Lymphatic: Reports no additional hematologic/lymphatic complaints Allergic/Immunologic: Allergic/Immunologic: Reports no additional allergic/immunologic complaints PMFSH Past Medical History Attestation statement: The following information was validated with the patient. Source: old records reviewed and nursing notes reviewed Medical History Elevated glucose Screening for colon cancer Screening for diabetes mellitus Obesity (BMI 30-39.9) Confused but orients easily Depression, major, severe recurrence Abnormal serum protein electrophoresis Mild recurrent major depression Anxiety and depression Encounter for Medicare annual wellness exam Removal of nell Depression with anxiety Abdominal distention Weight gain Major depression, recurrent, full remission Preoperative examination POONAM (generalized anxiety disorder) Hypothyroidism Hyperparathyroidism Multinodular thyroid Vitamin D deficiency Osteoporosis Surgical History Hx of colonoscopy Hx of kyphoplasty Hx of section Family History Family History Father Myocardial infarction CVD (cardiovascular disease) Mother Dementia Alzheimer disease Other Mental health disorder Social History Social History Household Members: Spouse Housing: House Alcohol intake: never Patient Tobacco Use Status: Never used Tobacco e-Cigarette/Vaping Use: Never Used Second Hand Smoke Exposure: No Advance Directives: No service: No Current occupational status: unemployed Cognitive needs: No Hearing needs: No Physical Exam ED Vital Signs: Vital Signs - 24 hr 05/11/23 19:49 Temperature 98.0 F Pulse Rate 87 Respiratory Rate 16 Blood Pressure 124/78 Pulse Oximetry 98 Oxygen Delivery Method Room Air BMI result Body Mass Index 24.6 Const General: cooperative, no acute distress, alert and awake Nutritional Appearance: well nourished Orientation/consciousness: patient oriented x3 Limitations: no limitations HENMT Head: Yes normal to inspection and Yes atraumatic Ears: hearing grossly normal bilaterally and external ears normal General nose exam: Normal external nose present, no nasal discharge noted and no epistaxis Face and sinus: Yes normal facial exam, No abrasion and No laceration Mouth: Normal oral and palatal mucosa present, no drooling and no muffled voice Eyes General: appearance normal, both eyes and all related structures Periorbital: periorbital findings normal Eyelids: Yes eyelids normal Conjunctivae: conjunctivae normal Pupils: Equal, round and reactive pupils present EOM: EOMs intact bilaterally Neck Neck: Yes normal visual inspection, Yes full ROM and Yes no lymphadenopathy Chest Chest palpation & inspection: normal inspection of the chest Resp Effort & Inspection: normal respiratory effort and able to speak in complete sentences GI Inspection: Yes normal to inspection Neuro General: patient oriented x3 and moves all extremities Cranial nerves: Yes Equal, round and reactive pupils present Cognition (Neuro): normal cognition Motor exam (neuro): 5/5 motor strength present throughout Sensory Exam: Normal double simultaneous stimulation for sensation Coordination: [id number] test normal Extrem General: Yes normal to inspection, Yes full ROM and Yes capillary refill normal Psych Appearance: grossly normal Mental Status: mental status grossly normal Affect: normal affect Attitude: cooperative Thought process: Normal thought process present Thought content: Normal thought content present Insight: Good insight present (Psych) Course Course Course Narrative: RME performed by Homa Pompa PA-C. Patient is a 72 year old assigned female at presenting to the emergency department with vaginal irritation and dysuria. Labs ordered. Patient placed back in the waiting room pending room availability and results. Medical Decision Making Medical Decision Making MDM Narrative: Patient is a 72 year old assigned female at with a history of POONAM and MDD presenting to the emergency department today with vaginal irritation and painful urination. Patient's limited physical exam performed in triage was unremarkable. Patient left the department without completing treatment. Patient left the department before myself or any of the other emergency department clinicians could explain or review physical exam findings, need or lack there of for additional testing, treatment options, or a treatment plan. Differential Diagnosis Differential Diagnoses: The differential diagnosis associated with the presentation includes UTI Vaginal yeast BV Admission/Observation Consideration of admission/observation: Escalation of care including admission/observation considered Patient left the department without completing treatment and therefore left the department before an admission decision could be made. Discharge Plan Discharge Clinical Impression: Vaginal irritation, Dysuria Patient Disposition: Left W/O Completing Treatment Prescriptions: No Action denosumab 60 mg/mL syringe 60 mg subcut [id number] Qty: 1 2RF levothyroxine 25 mcg tablet 25 mcg PO DAILY 30 Days Qty: 30 11RF levomefolate calcium 15 mg tablet 15 mg PO DAILY Qty: 30 3RF donepezil 5 mg tablet 5 mg PO BEDTIME Qty: 90 1RF folic acid 1 mg tablet 1 mg PO DAILY Qty: 90 1RF thiamine HCl (vitamin B1) 100 mg tablet 100 mg PO BID 90 Days Qty: 180 1RF Trintellix 20 mg tablet 20 mg PO DAILY Qty: 90 1RF doxepin 25 mg capsule 100 mg PO BEDTIME 30 Days Qty: 120 2RF zolpidem 6.25 mg tablet,ext release multiphase 6.25 mg PO BEDTIME Qty: 30 2RF memantine 5 mg tablet 5 mg PO BID Qty: 180 1RF lumateperone 21 mg capsule 21 mg PO DAILY Qty: 30 2RF levomefolate-algal oil [Deplin (algal oil)] 15-90.314 mg capsule 1 cap PO DAILY Qty: 30 2RF lorazepam 0.5 mg tablet See Rx Instructions .ROUTE .COMPLEX Qty: 90 1RF Rx Instructions: take 1/2 to one tab up to 3 times daily as needed for anxiety, try to use only 1/2 tab; Discharge Date/Time: 05/11/23 22:35
[2023-05-11 19:49] VITALS: BP 124/78; PULSE 87; RESP 16; TEMP 36.7; O2SAT 98; BMI 24.6
== END 2023-05-11 22:35 | disposition left against medical advice (07) ==
LOC: HO.ED 22:11
PROVIDERS: Emergency Provider Emergency Medicine; PCP Internal Medicine
DX: N89.8 Other specified noninflammatory disorders of vagina (principal); R30.0 Dysuria
CPT/HCPCS: 99281

== ENCOUNTER 2023-05-12 13:08 | Outpatient (AMB) | payer MEDICARE, SELFPAY ==
--- NOTE | 2023-05-12 13:12 | AM.OFFWIN_ITS ---
Intake Vital Signs 05/12/23 13:13 Height 5 ft 1 in BP 122/72 Blood Pressure Location Rt brachial Position Sitting Pulse 85 Pulse Source Pulse Oximeter Temp 97.4 F Temp Source Temporal Artery Scan Pulse Oximetry (%) 97 Oxygen Delivery Method Room Air Intake Visit Reasons: EP, burning with urination Intake Note: pt is here today for burning with urination statred Patient Tobacco Use Status: Never used Tobacco Allergies risperidone [From Risperdal] Allergy (Intermediate, Verified 05/12/23 13:13) UNKNOWN Sulfa (Sulfonamide Antibiotics) Allergy (Intermediate, Verified 05/12/23 13:13) rash From BENADRYL Allergy (Intermediate, Uncoded 02/14/23 11:47) DIZZY Do you need a note to return to daycare/school/sports/work: No HPI HPI Comments History of Present Illness0 Details 1320 72 year old female history anxiety, vagi nal irritation, depression presents for evaluation of burning in groin / private area x1 week, patient reports symptoms have been worsening she reports there is a rash in the region that is red, tender to the touch and warm. Each time she urinates of any urine gets on it pain is worse. Foul smelling. Denies fevers, chills, vaginal discharge, urinary frequency, urgency Physical exam with intertrigo noted This is likely intertrigo with overlying cellulitis, unlikely fourniers gangrene or necrotizing infection. Plan at this time will treat with Keflex, fluconazole orally and nystatin powder. Educated patient on diagnosis and treatment plan, answered all question, patient verbalizes understanding. At this time patient will be discharged home, advised to return with new or worsening symptoms. Educated on worrisome signs and symptoms and when to return. At this time I feel comfortable discharge home. [facility] Medical History Elevated glucose Screening for colon cancer Screening for diabetes mellitus Obesity (BMI 30-39.9) Confused but orients easily Depression, major, severe recurrence Abnormal serum protein electrophoresis Mild recurrent major depression Anxiety and depression Encounter for Medicare annual wellness exam Removal of nell Depression with anxiety Abdominal distention Weight gain Major depression, recurrent, full remission Preoperative examination POONAM (generalized anxiety disorder) Hypothyroidism Hyperparathyroidism Multinodular thyroid Vitamin D deficiency Osteoporosis Surgical History Hx of colonoscopy Hx of kyphoplasty Hx of section Family History Father Myocardial infarction CVD (cardiovascular disease) Mother Dementia Alzheimer disease Other Mental health disorder Social History Household Members: Spouse Housing: House Alcohol intake: never Patient Tobacco Use Status: Never used Tobacco e-Cigarette/Vaping Use: Never Used Second Hand Smoke Exposure: No service: No Current occupational status: unemployed Cognitive needs: No Hearing needs: No Review of Systems Const Details: Constitutional : No Weight loss, No Fever, No Chills, No Fatigue, No Malaise ENT/Mouth : No sore throat, No Rhinorrhea Eyes: No Eye Pain, No Swelling, No Redness Cardiovascular : No Chest Pain, No SOB, No Dyspnea on Exertion, No Orthopnea, No Edema, No Palpitations Respiratory : No Cough, No Sputum, No Wheezing Gastrointestinal : No Nausea, No Vomiting, No Diarrhea, No Constipation, No abdominal Pain, No Hematochezia, No Melena Genitourinary : No Dysuria, No Urinary Frequency, No Hematuria, Musculoskeletal : No joint pain, No Myalgias, No Joint Swelling Skin : No Skin Lesions, + rash Neuro : No Weakness, No Numbness, No Dizziness, No Headache Psych : No Anxiety/Panic, No Depression All other systems reviewed and are negative All systems reviewed & are unremarkable except as noted in HPI and below Physical Exam Vital Signs: Last Vital Signs Temp 97.4 F 05/12/23 13:13 Pulse 85 05/12/23 13:13 BP 122/72 05/12/23 13:13 Pulse Ox 97 05/12/23 13:13 Oxygen Delivery Method Room Air 05/12/23 13:13 vss Appearance: Alert.? Oriented X3.? No acute distress.? Head: Normocephalic, atraumatic, no step-offs or deformities Eyes: Pupils equal, round and reactive to light.?? CVS: Normal heart rate and rhythm.? Pulses normal.? Respiratory: No respiratory distress.? Breath sounds normal.? Abdomen: Soft and nontender.? Skin: Skin warm and dry.? Normal skin color.? Normal skin turgor.? Extremities: No lower extremity edema.? No calf ttp. 5/5 strength to bilateral upper and lower extremities Back: No midline tenderness, no C-spine tenderness, full range of motion, no CVA tenderness bilaterally Neuro: Oriented X 3.? No motor deficit.? No sensory deficit. CN 2-12 intact Sensitive exam with Virgil CELAYA at bedside. Intertrigo noted to groin region with overlying erythema, warmth and areas of macerated skin. Tender to palpation. No necrosis. No crepitus Results AMB Urinalysis, Automated UA Leukoctes 0 Elvin/uL Last Edit by Kristine Pearson CMA on 05/12/23 13:31 UA Nitrite Negative Last Edit by Kristine Pearson, TAPAN on 05/12/23 13:31 UA Urobilinogen 0.2 mg/dL Last Edit by Kristine Pearson, TAPAN on 05/12/23 13:31 UA Protein 0 mg/dL Last Edit by Kristine Pearson, TAPAN on 05/12/23 13:31 UA pH 6.0 Last Edit by Kristine Pearson, TAPAN on 05/12/23 13:31 UA Blood 0 Arnold/uL Last Edit by Kristine Pearson, CAD LIBRARIAN on 05/12/23 13:31 UA Specific [place] 1.010 Last Edit by Kristine Pearson, TAPAN on 05/12/23 13:31 UA Ketone Negative Last Edit by Kristine Pearson, TAPAN on 05/12/23 13:31 UA Bilirubin 0 mg/dL Last Edit by Kristine Pearson, TAPAN on 05/12/23 13:31 UA Glucose 0 mg/dL Last Edit by Kristine Pearson, TAPAN on 05/12/23 13:31 Assessment & Plan Assessment & Plan (1) Intertrigo: Code(s): L30.4 - Erythema intertrigo Plan Take your medications as prescribed. If you were prescribed antibiotics today, it is important that you take your medication to their entirety, do not skip any doses, do not finish them early. Follow-up with your primary care provider this week. Return to the emergency department with new or worsening symptoms. Such as fevers, chills, chest pain, shortness of breath, nausea, vomiting, dizziness, headache, vision changes, lethargy In case of emergency call 911 Orders: Orders 2 AMB Urinalysis Automated Today Z13.9 - Encounter for screening, unspecified Medications: New nystatin 1 appl topical DAILY 7 days 15 grams 0RF cephalexin 500 mg PO QID 7 days 28 caps 0RF fluconazole 150 mg PO Q3D 2 doses 2 tabs 0RF Coding Level of Care Code Est Pt Level 3 (63438) Diagnoses Intertrigo L30.4
[2023-05-12 13:13] VITALS: BP 122/72; PULSE 85; TEMP 36.3; O2SAT 97
== END 2023-05-12 14:14 | disposition home or self-care (01) ==
PROVIDERS: PCP Internal Medicine; Visit Provider Physician Assistant
DX: L30.4 Erythema intertrigo (principal); R30.9 Painful micturition, unspecified
CPT/HCPCS: 81003; 99213

== ENCOUNTER 2023-05-21 15:00 | Inpatient (IN) | payer MEDICARE, SELFPAY ==
--- NOTE | 2023-05-21 15:15 | ED_ITS ---
HPI - Psych General Chief Complaint: Psychiatric Symptoms Stated Complaint: crisis eval Time Seen by Provider: 05/21/23 15:53 Source: patient Mode of arrival: ambulatory Limitations: no limitations History of Present Illness HPI Narrative: This is a 72-year-old female with history of depression taking anti depression medication and sees Dr. Willett as an outpatient. Patient is compliant with her medication, lives home with her patient stated that she has been feeling depressed for about a month, no SI, no HI, no hallucination. Otherwise patient has no headache, no photophobia, no chest pain, no abdominal pain, no dysuria or frequency urination. Related Data Home Medications Medication Instructions Recorded Confirmed lorazepam 0.5 mg tablet 0.25 - 0.5 mg PO TID PRN ANIXETY 05/21/23 Previous Rx's Medication Instructions Recorded denosumab 60 mg/mL subcutaneous 60 mg subcut [id number] #1 mL 06/19/21 syringe levothyroxine 25 mcg tablet 25 mcg PO DAILY 30 days #30 tabs 01/29/22 levomefolate calcium 15 mg tablet 15 mg PO DAILY #30 tabs 04/10/22 folic acid 1 mg tablet 1 mg PO DAILY #90 tabs 11/25/22 thiamine HCl (vitamin B1) 100 mg 100 mg PO BID 90 days #180 tabs 12/22/22 tablet vortioxetine 20 mg tablet 20 mg PO DAILY #90 tabs 01/23/23 (Trintellix) zolpidem 6.25 mg tablet,extended 6.25 mg PO BEDTIME #30 tabs 03/02/23 release,multiphase memantine 5 mg tablet 5 mg PO BID #180 tabs 03/11/23 lumateperone 21 mg capsule 21 mg PO DAILY #30 caps 05/08/23 doxepin 25 mg capsule 100 mg (4 x 25 mg) PO BEDTIME 30 05/15/23 days #120 caps donepezil 5 mg tablet 5 mg PO BEDTIME #90 tabs 05/18/23 Allergies Allergy/AdvReac Type Severity Reaction Status Date / Time risperidone [From Risperdal] Allergy Intermediate UNKNOWN Verified 05/12/23 13:13 Sulfa (Sulfonamide Allergy Intermediate rash Verified 05/12/23 13:13 Antibiotics) From BENADRYL Allergy Intermediate DIZZY Uncoded 02/14/23 11:47 Review of Systems 2 Review of Systems: All other systems are reviewed and are negative Constitutional: Reports as per HPI and Reports no additional constitutional complaints Eyes: Reports as per HPI and Reports no additional eye complaints Reports system reviewed and no additional complaints, except as documented Cardiovascular: Reports as per HPI and Reports no additional cardiovascular complaints Respiratory: Reports as per HPI and Reports no additional respiratory complaints Gastrointestinal: Reports as per HPI and Reports no additional gastrointestinal complaints Genitourinary: Reports no additional female genitourinary complaints Musculoskeletal: Reports no additional musculoskeletal complaints Skin/Breast: Reports system reviewed and no additional complaints, except as docu Psychiatric: Reports no additional psychiatric complaints Endocrine: Reports no additional endocrine complaints Hematologic/Lymphatic: Reports no additional hematologic/lymphatic complaints Allergic/Immunologic: Reports no additional allergic/immunologic complaints Reports system reviewed and no additional complaints, except as documented and Reports Abnormal speech present [facility] Past Medical History Medical History Elevated glucose Screening for colon cancer Screening for diabetes mellitus Obesity (BMI 30-39.9) Confused but orients easily Depression, major, severe recurrence Abnormal serum protein electrophoresis Mild recurrent major depression Anxiety and depression Encounter for Medicare annual wellness exam Removal of nell Depression with anxiety Abdominal distention Weight gain Major depression, recurrent, full remission Preoperative examination POONAM (generalized anxiety disorder) Hypothyroidism Hyperparathyroidism Multinodular thyroid Vitamin D deficiency Osteoporosis Surgical History Hx of colonoscopy Hx of kyphoplasty Hx of section Family History Family History Father Myocardial infarction CVD (cardiovascular disease) Mother Dementia Alzheimer disease Other Mental health disorder Social History Social History Household Members: Spouse Housing: House Alcohol intake: never Patient Tobacco Use Status: Never used Tobacco e-Cigarette/Vaping Use: Never Used Second Hand Smoke Exposure: No Advance Directives: No Advance Directives Information Provided: No service: No Current occupational status: unemployed Cognitive needs: No Hearing needs: No Physical Exam 2 Vital Signs: Vital Signs: Last Vital Signs Temp 97.2 F 05/21/23 15:17 Pulse 80 05/21/23 15:17 Resp 20 05/21/23 15:17 BP 146/76 H 05/21/23 15:17 Pulse Ox 94 05/21/23 15:17 O2 Del Method Room Air 05/21/23 15:17 BMI result Body Mass Index 26.4 Vital signs have been reviewed and appear to be correct. Blood pressure elevated. Heart rate normal. Respiratory rate normal. Temperature normal. Oxygen saturation normal. Appearance: Alert. Oriented X3. No acute distress. Head: Normal external exam. Normocephalic. Atraumatic. No Price signs noted. No raccoon eyes noted Eyes: PERRLA. EOMI. Conjunctiva and sclera normal. Eyelids normal. ENT: TM's Normal. Pharynx normal. Uvula midline. Moist mucous membranes. No trismus noted. No drooling noted. No muffled voice noted. Neck: Normal inspection. Neck supple. FROM. No adenopathy. Thyroid Normal. No meningeal signs. No neck mass noted. CVS: Normal heart rate and rhythm. Heart sound normal. No murmurs noted. Pulses normal throughout. Respiratory: No respiratory distress. Painless inspiration. Breath sounds normal. No wheezes/rales/rhonchi noted. Chest nontender. No accessory muscle usage noted or decreased air movement noted. Abdomen: Soft and nontender. Bowel sounds normal in all 4 quadrants. No distention noted. No organomegaly noted. No visible injury noted. Back: No CVA tenderness. Full range of motion noted. Skin: Skin warm and dry. Normal skin color. Normal skin turgor. No rashes/lesions/lacerations noted. Extremities: No lower extremity edema. Extremities exhibit normal range of motion. Extremities nontender. Neuro: Oriented X 3. Cranial nerve exam: II-XII are grossly intact No motor deficit. No sensory deficit. Reflexes normal. Patient Orientation: Person, Place, Time and Situation, okay hygiene and grooming. Fair eye contact, attentive, no tics or tremors. Level of Consciousness: Awake, Appropriate and Alert Patient Behavior: Appropriate, Guarded, Cooperative and Anxious Mood Description: Constricted, Blunted and Apprehensive Affect Description: Constricted, Blunted and Apprehensive Patient Cognition Impaired: No Ability to Follow Directions: Excellent Speech Pattern: Clear, Appropriate and Spontaneous Speech, nonpressured, spontaneous with regular rate and rhythm, normal volume and prosody. No dysarthria. Memory Description: Intact, Immediate Intact and Short Term Intact Hallucinations: None Delusions: Not Present Thought Process: Intact Thought Content: positive for Intact, positive for Logical, denies Suicidal Ideation and denies Homicidal Ideation. Depressive Symptoms: Not present. Judgement and Insight: Limited but adequate. Course Course Course Narrative: This is a rapid medical exam: Additional HPI, ROS, PE not included below will be deferred to primary provider. Patient is a 72-year-old female with history of MDD, POONAM, dementia, hypothyroid presenting to the ED with complaint of depression. States she has been compliant with her psychiatric medications. Reports has felt depressed, unable to sleep, decreased appetite for around 2 weeks. Also complains of headaches and chills. Denies suicidal or homicidal ideations, denies auditory or visual hallucinations. Plan: swabs for flu/covid, labs, UA, CARE team eval Reevaluation(s) Reevaluation #1: Depression, will consult care team to evaluate the patient, continue with physician observation. Time: 17:00 Medical Decision Making Differential Diagnosis Differential Diagnoses: The differential diagnosis associated with the presentation includes (Depression, suicidal ideation, hallucination medical clearance, severe anemia, electrolyte abnormalities.) Admission/Observation Consideration of admission/observation: Escalation of care including admission/observation considered Consult Healthcare Provider Management of the patient was discussed with: Control Room Technician (Care team) Lab Data MDM Lab Attestation statement: I reviewed the patient's lab results. 05/21/23 17:09 05/21/23 17:09 Labs: Lab Results 05/21/23 05/21/23 05/21/23 Range/Units 15:59 16:01 17:09 WBC 7.7 (4.8-10.8) X10*3/uL RBC 4.97 (4.20-5.50) X10*6/uL Hgb 14.9 (12.0-16.0) g/dl Hct 45.8 (37.0-47.0) % MCV 92.2 (80.0-98.0) fL MCH 30.0 (27.0-33.0) pg MCHC 32.5 (31.0-35.0) g/dl RDW 14.8 (11.0-16.0) % Plt Count 258 (160-400) X10*3/uL MPV 10.5 (9.4-12.3) fL Immature Gran % (Auto) 0.4 (0.0-0.4) % Neut % (Auto) 78.6 H (45-73) % Lymph % (Auto) 14.4 L (20-40) % [place] % (Auto) 5.1 (2-11) % Eos % (Auto) 0.8 (0-4) % Baso % (Auto) 0.7 (0-2) % Lymph # (Auto) 1.1 L (1.2-4.9) X10*3/uL [place] # (Auto) 0.4 (0.1-1.2) X10*3/uL Eos # (Auto) 0.1 (0.0-0.4) X10*3/uL Baso # (Auto) 0.1 (0.0-0.2) X10*3/uL Abs Immat Gran (auto) 0.03 (0.00-0.03) X10*3/uL Absolute Neuts (auto) 6.0 (2.0-8.3) x10*3/uL Absolute Nucleated RBC 0.000 (0.0-0.012) X10*3/uL Nucleated RBC % (auto) 0.0 (0.0-0.2) /100WBC Sodium 139 (135-145) mmol/L Potassium 4.2 (3.3-5.1) mmol/L Chloride 100 (96-108) mmol/L Carbon Dioxide 27 (22-29) mmol/L Anion Gap 16 (12-20) BUN 19 H (9-16) mg/dL Creatinine 1.01 (0.5-1.4) mg/dL Estim Creat Clear Calc 41.7 Estimated GFR 54 Random Glucose 116 H (60-115) mg/dL Calcium 10.6 H D (8.4-10.2) mg/dL Urine Color Dark Yellow Urine Appearance Clear Urine pH 5.5 (5.0-9.0) Ur Specific [place] 1.025 (1.005-1.025) Urine Protein Negative (Neg-Trace) mg/dL Urine Glucose (UA) Negative (Negative) mg/dL Urine Ketones Negative (Negative) mg/dL Urine Blood Negative (Negative) Urine Nitrite Negative (Negative) Ur Leukocyte Esterase Moderate (2+) H (Negative) Salicylates < 5.0 L (15-30) mg/dL Urine Opiates Screen Not Detected (Not Detect) Urine Fentanyl Screen Not Detected (Not Detect) Acetaminophen < 3 (<30) mcg/mL Ur Barbiturates Screen Not Detected (Not Detect) Ur Phencyclidine Scrn Not Detected (Not Detect) Ur Amphetamines Screen Not Detected (Not Detect) U Benzodiazepines Scrn Not Detected (Not Detect) Urine Cocaine Screen Not Detected (Not Detect) U Marijuana (THC) Screen Not Detected (Not Detect) Ethyl Alcohol < 10 mg/dL COVID-19 (EMILIANA) Negative (Negative) COVID-19 Clin Com See Note Influenza Type A (KARELY) Negative (Negative) Influenza Type B (KARELY) Negative (Negative) Influenza A & B Note See Note Discharge Plan Discharge Clinical Impression: Depression, Acute anxiety Patient Disposition: Still a Patient Prescriptions: No Action denosumab 60 mg/mL syringe 60 mg subcut [id number] Qty: 1 2RF levothyroxine 25 mcg tablet 25 mcg PO DAILY 30 Days Qty: 30 11RF levomefolate calcium 15 mg tablet 15 mg PO DAILY Qty: 30 3RF folic acid 1 mg tablet 1 mg PO DAILY Qty: 90 1RF thiamine HCl (vitamin B1) 100 mg tablet 100 mg PO BID 90 Days Qty: 180 1RF Trintellix 20 mg tablet 20 mg PO DAILY Qty: 90 1RF zolpidem 6.25 mg tablet,ext release multiphase 6.25 mg PO BEDTIME Qty: 30 2RF memantine 5 mg tablet 5 mg PO BID Qty: 180 1RF lumateperone 21 mg capsule 21 mg PO DAILY Qty: 30 2RF doxepin 25 mg capsule 100 mg PO BEDTIME 30 Days Qty: 120 2RF donepezil 5 mg tablet 5 mg PO BEDTIME Qty: 90 0RF lorazepam 0.5 mg tablet 0.25 - 0.5 mg PO TID PRN (Reason: ANIXETY) Rx Instructions: take 1/2 to one tab up to 3 times daily as needed for anxiety, try to use only 1/2 tab; Interventions: [place]-Suicide Risk Severity Scale Last Done: 05/21/23 18:01
[2023-05-21 15:17] VITALS: BP 146/76; PULSE 80; RESP 20; TEMP 36.2; O2SAT 94; BMI 26.4
[2023-05-21 16:19] LABS: Appearance Urine Clear; Color Urine Dark Yellow; Glucose Urine UA Negative (Negative); Leukocyte Esterase Urine Moderate (2+) (Negative); Nitrite Urine Negative (Negative); PH 5.5 (5.0-9.0); Specific Gravity - Urine 1.025 (1.005-1.025); UMIC TRIGGER UACC YES; Urine Blood Negative (Negative); Urine Ketones Negative (Negative); Urine Protein Negative (Neg-Trace)
[2023-05-21 16:31] LABS: Amphetamine Screen Urine Not Detected (Not Detect); Barbiturates, Urine Not Detected (Not Detect); Benzodiazepines Screen Urine Not Detected (Not Detect); Cannabinoid Screen Urine Not Detected (Not Detect); Cocaine Screen Urine Not Detected (Not Detect); Fentanyl, urine Not Detected (Not Detect); Opiate Screen Urine Not Detected (Not Detect); Phencyclidine Screen Urine Not Detected (Not Detect)
[2023-05-21 16:41] LABS: IDNOW Serial# 9DB6401D; Influenza A Negative (Negative); Influenza B2 Negative (Negative)
[2023-05-21 16:42] LABS: COVID-19 Test Negative (Negative); IDNOW Serial# BCCEAD1C
[2023-05-21 17:14] LABS: MANUAL DIFF FLAG NO
[2023-05-21 17:27] LABS: Basophils Absolute Auto 0.1 X10*3/uL (0.0-0.2); Basophils Percent Auto 0.7 % (0-2); Eosinophils Absolute Auto 0.1 X10*3/uL (0.0-0.4); Eosinophils Percent Auto 0.8 % (0-4); Hematocrit 45.8 % (37.0-47.0); Hemoglobin 14.9 g/dl (12.0-16.0); Imm Gran Abs Auto 0.03 X10*3/uL (0.00-0.03); Imm Gran Pct Auto 0.4 % (0.0-0.4); Lymphocytes Absolute Auto 1.1 X10*3/uL (1.2-4.9); Lymphocytes Percent Auto 14.4 % (20-40); Mean Corpuscular HGB Conc 32.5 g/dl (31.0-35.0); Mean Corpuscular Volume 92.2 fL (80.0-98.0); Mean Platelet Volume 10.5 fL (9.4-12.3); Monocytes Absolute Auto 0.4 X10*3/uL (0.1-1.2); Monocytes Percent Auto 5.1 % (2-11); Neutrophils Percent Auto 78.6 % (45-73); Platelet Count 258 X10*3/uL (160-400); Red Blood Count 4.97 X10*6/uL (4.20-5.50); Red Cell Distribution Width 14.8 % (11.0-16.0); White Blood Count 7.7 X10*3/uL (4.8-10.8)
[2023-05-21 17:37] LABS: Acetaminophen LAB < 3 mcg/mL (<30); Anion Gap 16 (12-20); Blood Urea Nitrogen 19 mg/dL (9-16); Calcium 10.6 mg/dL (8.4-10.2); Carbon Dioxide 27 mmol/L (22-29); Chloride 100 mmol/L (96-108); Creatinine Clr Calc Pharmacy 41.7; Estimated Glomerular Filt Rate 54; Ethanol < 10 mg/dL; Glucose Random 116 mg/dL (60-115); Potassium 4.2 mmol/L (3.3-5.1); Salicylate < 5.0 mg/dL (15-30); Sodium 139 mmol/L (135-145)
--- NOTE | 2023-05-21 17:52 | PC.NURSE ---
Judy wilde presented to the ED with increased depression and feeling sad . She is pleasant on admission and agreeable to the frame changer and labs. Covid neg. Judy has asked several times if she is going to get better . Visible pacing in milieu with a slow and steady gait and sitting in common area. No behavioral concerns. This teletypewriter installer asked the pharmacy to complete the patients Med Rec which is pending.
[2023-05-21 18:05] LABS: Bacteria Urine None Seen (None Seen); Hyaline Casts Urine 0-2 /LPF (0-2); RBC Urine 0-2 /HPF (0-2); Squamous Epithelial Cell Urine 0-2 /HPF (0-2); UACC Culture Trigger YES; WBC Urine 21-50 /HPF (0-5)
--- NOTE | 2023-05-21 18:18 | PHA.MEDREC ---
Pharmacy Consult ? Medication Reconciliation Pharmacy has completed the medication reconciliation. Patient confirmed medications. The only medications she did not recognize was donepezil. Donepezil was last filled 02/24/23 therefore she would still be on it so I left on the list. Patient could not clarify how she takes her lorazepam, so I left as prescriptions states. Alka Bach, PharmD
[2023-05-21] MEDS: Nitrofurantoin Monohyd/M-Cryst 100 MG CAPSULE PO (22:21)
[2023-05-21] MEDS: Memantine HCl 5 MG TABLET PO (22:21)
[2023-05-21] MEDS: Doxepin HCl 25 MG CAPSULE 100 MG PO (22:22)
[2023-05-21] MEDS: Zolpidem Tartrate 5 MG TABLET PO (22:22)
[2023-05-21] MEDS: Thiamine HCL 100 MG TABLET PO (22:22)
[2023-05-21] MEDS: Donepezil HCl 5 MG TABLET PO (22:22)
[2023-05-22] MEDS: LORazepam 0.5 MG TABLET 0.25 MG PO (04:48)
[2023-05-22 07:52] VITALS: BP 118/82; PULSE 98; RESP 16; TEMP 36.7; O2SAT 94
--- NOTE | 2023-05-22 07:52 | PC.NURSE ---
PT IS A/O NO SOB/MATT NOTED. SPEAKS IN FULL SENTENCES. PT AMB (I) GAIT STEADY. PT IS ON ABT FOR UTI, BUT DENIES ANY UTI SX AT THIS TIME. PT ATE BREAKFAST FOR 100%. PT AWARE OF PLAN OF CARE. PT STATES THAT HER HEAD DOES NOT FEEL GOOD BECAUSE I HAVE NOT SLEPT .
[2023-05-22] MEDS: Memantine HCl 5 MG TABLET PO ×2 (08:29→20:22)
[2023-05-22] MEDS: Vortioxetine Hydrobromide 20 MG TABLET PO (08:29)
[2023-05-22] MEDS: Folic Acid 1 MG TABLET PO (08:29)
[2023-05-22] MEDS: Nitrofurantoin Monohyd/M-Cryst 100 MG CAPSULE PO ×2 (08:29→20:22)
[2023-05-22] MEDS: Thiamine HCL 100 MG TABLET PO ×2 (08:30→20:22)
--- NOTE | 2023-05-22 09:08 | PC.NURSE ---
PT IS C/O SLIGHT NAUSEA AND ANXIETY. WILL MED PER AUG.
[2023-05-22] MEDS: Ondansetron ODT 4 MG TAB.RAPDIS TRANSLINGU (09:34)
--- NOTE | 2023-05-22 11:07 | PC.NURSE ---
PT IS C/O ANXIETY. PT SPOKE TO HER ON THE PHONE AND AFTERWARDS WAS A LITTLE TEARFUL. PT AMB (I) GAIT STEADY IN THE HALLWAY.
[2023-05-22] MEDS: LORazepam 1 MG TABLET PO (11:28)
--- NOTE | 2023-05-22 12:30 | PC.NURSE ---
PT SEEN BY CARE TEAM. PT AWARE OF PLAN OF CARE.
[2023-05-22 16:21] VITALS: BP 135/78; PULSE 76; RESP 16; TEMP 36.7; O2SAT 98
--- NOTE | 2023-05-22 17:00 | PC.NURSE ---
Patient sitting in chair in hallway calm and cooperative, asks staff repetitive questions but is easily redirectable. Patient with no s/s of distress noted.
[2023-05-22] MEDS: Zolpidem Tartrate 5 MG TABLET PO (20:22)
[2023-05-22] MEDS: Donepezil HCl 5 MG TABLET PO (20:22)
[2023-05-22] MEDS: Doxepin HCl 25 MG CAPSULE 100 MG PO (20:22)
--- NOTE | 2023-05-23 02:50 | PC.NURSE ---
Patient resting on bed with eyes closed at this time, chest rise equal, no s/s of distress noted.
[2023-05-23 06:36] VITALS: BP 125/70; PULSE 79; RESP 16; TEMP 36.4; O2SAT 92
[2023-05-23] MEDS: Thiamine HCL 100 MG TABLET PO ×2 (09:26→20:53)
[2023-05-23] MEDS: Vortioxetine Hydrobromide 20 MG TABLET PO (09:26)
[2023-05-23] MEDS: Nitrofurantoin Monohyd/M-Cryst 100 MG CAPSULE PO ×2 (09:26→20:53)
[2023-05-23] MEDS: Memantine HCl 5 MG TABLET PO ×2 (09:26→20:52)
[2023-05-23] MEDS: Folic Acid 1 MG TABLET PO (09:26)
--- NOTE | 2023-05-23 10:28 | PC.NURSE ---
pt dariy, sts that she spoke with her on the phone and he told her to go home but she doesn't feel good so she doesn't feel safe enough to go home. pt in room resting in bed, sts she is going to try to relax.
[2023-05-23] MEDS: LORazepam 0.5 MG TABLET 0.25 MG PO ×2 (13:01→21:01)
--- NOTE | 2023-05-23 13:25 | PC.NURSE ---
pt pacing in hallway, stating she is anxious. pt provided with prn ativan per aug and is now currently resting quietly in bed.
--- NOTE | 2023-05-23 14:05 | MHC.CARE ---
Statewide bedsearch conducted, unfortunately no beds are available, RAD Team to continue bedsearch tomorrow if deemed necessay
[2023-05-23 15:42] VITALS: BP 153/75; PULSE 86; RESP 18; TEMP 36.7; O2SAT 97
--- NOTE | 2023-05-23 16:48 | PC.RT ---
pt ordered for a sleep study polina. I spoke with Judith Leo yesterday about this. I told her it would be best for the pt. if the sleep study was done when she gets to a inpatient floor. RN from ER Pod aware.
[2023-05-23] MEDS: Donepezil HCl 5 MG TABLET PO (20:52)
[2023-05-23] MEDS: Zolpidem Tartrate 5 MG TABLET PO (20:53)
[2023-05-23] MEDS: Doxepin HCl 25 MG CAPSULE 100 MG PO (20:53)
--- NOTE | 2023-05-23 22:51 | PC.NURSE ---
PT alert and oriented. Endorsing anxiety and depress, denies SI/HI. PT medicated administered as per AUG. PT resting quiety with eyes closed. respirations even and unlabored.
[2023-05-24 05:36] VITALS: BP 120/67; PULSE 84; RESP 16; TEMP 36.5; O2SAT 94
[2023-05-24] MEDS: Folic Acid 1 MG TABLET PO (08:04)
[2023-05-24] MEDS: Memantine HCl 5 MG TABLET PO ×2 (08:04→21:29)
[2023-05-24] MEDS: Nitrofurantoin Monohyd/M-Cryst 100 MG CAPSULE PO ×2 (08:04→21:28)
[2023-05-24] MEDS: Thiamine HCL 100 MG TABLET PO ×2 (08:04→21:28)
[2023-05-24] MEDS: Vortioxetine Hydrobromide 20 MG TABLET PO (09:06)
[2023-05-24] MEDS: LORazepam 0.5 MG TABLET 0.25 MG PO ×2 (10:43→21:11)
--- NOTE | 2023-05-24 19:12 | PC.NURSE ---
patient appears to remain at rest at present respirations are even and unlabored, patient appears in no distress.
[2023-05-24 20:39] VITALS: BP 122/64; PULSE 77; RESP 18; TEMP 36.5; O2SAT 96
[2023-05-24] MEDS: Doxepin HCl 25 MG CAPSULE 100 MG PO (21:27)
[2023-05-24] MEDS: Zolpidem Tartrate 5 MG TABLET PO (21:28)
[2023-05-24] MEDS: Donepezil HCl 5 MG TABLET PO (21:29)
[2023-05-25 06:18] VITALS: BP 122/73; PULSE 90; RESP 16; TEMP 36.4; O2SAT 92
[2023-05-25] MEDS: Memantine HCl 5 MG TABLET PO ×2 (08:47→20:04)
[2023-05-25] MEDS: Thiamine HCL 100 MG TABLET PO ×2 (08:47→20:05)
[2023-05-25] MEDS: Nitrofurantoin Monohyd/M-Cryst 100 MG CAPSULE PO ×2 (08:48→20:04)
[2023-05-25] MEDS: Folic Acid 1 MG TABLET PO (08:48)
[2023-05-25] MEDS: Vortioxetine Hydrobromide 20 MG TABLET PO (08:48)
--- NOTE | 2023-05-25 09:19 | ECG_ITS ---
Test Reason : QT INTERVAL Blood Pressure : / mmHG Vent. Rate : 068 BPM Atrial Rate : 068 BPM P-R Int : 132 ms QRS Dur : 074 ms QT Int : 394 ms P-R-T Axes : 034 021 041 degrees QTc Int : 418 ms Normal sinus rhythm Normal ECG When compared with ECG of 14-FEB-2023 15:53, No significant change was found Referred By: Juan Jang Electronically Signed By:NIK ALBRIGHT MD
[2023-05-25 09:39] LABS: COVID-19 Test Negative (Negative); IDNOW Serial# 58CA691E
[2023-05-25 14:10] VITALS: BP 112/50; PULSE 69; RESP 16; TEMP 36.6; O2SAT 95
--- NOTE | 2023-05-25 15:32 | PC.NURSE ---
Judy SHEFFIELD this shift. Visible in milieu and pleasant when engaged. Steady gait and able to complete ADL's. Medication compliant. Denies SI/HI/AVH but states she feels like she needs help. Requires frequent reassurance about the process of admission. Advocating to go upstairs.
[2023-05-25] MEDS: LORazepam 0.5 MG TABLET 0.25 MG PO (16:36)
[2023-05-25 17:10] VITALS: BP 146/78; PULSE 91; RESP 18; TEMP 36.9; O2SAT 97; BMI 30.8
--- NOTE | 2023-05-25 17:51 | PC.ADMIT ---
Judy arrived at 1500 on the unit, sharps check done skin appears intact, no bruises or openings. Upon approach Judy reports endorsing anxiety and depression stated I'ts really high, when asked if she had any thoughts of wanting to hurt self stated No, I will never hurt myself, I believe in God. She reports having negative thoughts My thoughts tell me I'm never going to get better but I substitute it with a positive one, I tell myself I am going to get better. She reports having a history of osteoporosis but I haven't been getting treatment. She reports being hopeful, I believe I'll get better this hospital always takes care of me. Judy presented to the ED secondary to increasing depression over the past few months, she reported poor sleep, poor appetite, racing thoughts, headache, chills and night sweats, she was found to have a UTI.
[2023-05-25] MEDS: Doxepin HCl 25 MG CAPSULE 100 MG PO (20:03)
[2023-05-25] MEDS: Donepezil HCl 5 MG TABLET PO (20:03)
[2023-05-25] MEDS: Zolpidem Tartrate 5 MG TABLET PO (20:05)
--- NOTE | 2023-05-25 20:09 | PC.NURSE ---
PT REFUSED ORDERED SLEEP STUDY
[2023-05-26 08:23] LABS: Alanine Aminotransferase 24 U/L (0-31); Albumin Level 3.9 g/dL (3.5-5.0); Alkaline Phosphatase 69 U/L (39-117); Anion Gap 15 (12-20); Aspartate Amino Transferase 23 U/L (5-31); Bilirubin Total 0.9 mg/dL (0.0-1.0); Blood Urea Nitrogen 18 mg/dL (9-16); Calcium 9.5 mg/dL (8.4-10.2); Carbon Dioxide 25 mmol/L (22-29); Chloride 107 mmol/L (96-108); Cholesterol 203 mg/dL (<200); Creatinine Clr Calc Pharmacy 47.4; Estimated Glomerular Filt Rate 57; Glucose Fasting 98 mg/dL (60-99); HDL Cholesterol 58 mg/dL (>40); LDL Cholesterol Calculated 131 mg/dL (<100); Potassium 4.2 mmol/L (3.3-5.1); Sodium 143 mmol/L (135-145); Total Protein 7.5 g/dL (6.5-8.0); Triglycerides 73 mg/dL (<150)
[2023-05-26 08:40] VITALS: BP 115/57; PULSE 74; RESP 18; TEMP 36.3; O2SAT 95
[2023-05-26] MEDS: Memantine HCl 5 MG TABLET PO (09:04)
[2023-05-26] MEDS: Thiamine HCL 100 MG TABLET PO ×2 (09:04→20:07)
[2023-05-26] MEDS: Nitrofurantoin Monohyd/M-Cryst 100 MG CAPSULE PO ×2 (09:04→20:07)
[2023-05-26] MEDS: Vortioxetine Hydrobromide 20 MG TABLET PO (09:04)
[2023-05-26] MEDS: Folic Acid 1 MG TABLET PO (09:04)
[2023-05-26] MEDS: QUEtiapine Fumarate 25 MG TABLET PO ×2 (10:25→14:46)
--- NOTE | 2023-05-26 13:11 | PC.NURSE ---
Flu vaccine offered to patient stated I don't want it, I never had it before.
--- NOTE | 2023-05-26 14:08 | P.HPPS_ITS ---
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 PATIENT HAS A LONG HISTORY OF RECURRENT AGITATED DEPRESSION WITH HISTORY IN THE PAST OF REQUIRING ELECTROCONVULSIVE THERAPY. THE PATIENT HAS SOME DEGREE OF COGNITIVE IMPAIRMENT WHICH IS CHRONIC IT HAS NOT BEEN AGGRESSIVE. SHE HAS BEEN RELATIVELY STABLE ON A COMBINATION OF TRINTELLIX CAPLYTA AND DOXEPIN AT BEDTIME. PATIENT DOES TEND TO HAVE A SEASONAL PATTERN WORSE IN THE WINTER. SHE CAN BE MILDLY ELEVATED AT TIMES IN THE SPRING. THE PATIENT HAS BEEN EXPERIENCING SEVERE ANXIETY WITH RACING THOUGHTS INSOMNIA. WHO THERE IS BEEN OF UNCLEAR RECENT TRIGGER HER REPORTEDLY RECENTLY HAD BEEN HAVING AUDITORY HALLUCINATIONS AND MAY BEEN DIAGNOSED WITH A NEUROLOGICAL ILLNESS PATIENT HAS BEEN INCREASINGLY DESTABILIZED RUMINATING CATASTROPHIC THINKING SEVERE ANXIETY HOPELESSNESS HELPLESSNESS UNABLE TO BE STABILIZED AN OUTPATIENT Past Psychiatric History: Patient with long history of recurrent depression with multiple prior psychiatric hospitalizations. 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 no classic bipolar symptoms past depressive psychotic episodes not for a number of years Medical Evaluation Reviewed: Yes PMFSH Medical History Elevated glucose Screening for colon cancer Screening for diabetes mellitus Obesity (BMI 30-39.9) Confused but orients easily Depression, major, severe recurrence Abnormal serum protein electrophoresis Mild recurrent major depression Anxiety and depression Encounter for Medicare annual wellness exam Removal of nell Depression with anxiety Abdominal distention Weight gain Major depression, recurrent, full remission Preoperative examination POONAM (generalized anxiety disorder) Hypothyroidism Hyperparathyroidism Multinodular thyroid Vitamin D deficiency Osteoporosis Surgical History Hx of colonoscopy Hx of kyphoplasty Hx of section Social History: Patient disabled has 1 son. Chronic anxiety has an intermittent difficult relationship with her mostly has not worked Trauma History: None noted Diagnostics Vital Signs (24Hr): Vital Signs - 24 hr 05/25/23 14:10 05/25/23 17:10 Temperature 97.9 F 98.5 F Pulse Rate 69 91 Respiratory Rate 16 18 Blood Pressure 112/50 L 146/78 H Pulse Oximetry 95 97 Oxygen Delivery Method Room Air Room Air BMI result Body Mass Index 30.8 Labs 05/21/23 17:09 05/26/23 07:44 Labs: Laboratory Results - last 48 hr 05/25/23 05/26/23 08:55 07:44 Sodium 143 Potassium 4.2 Chloride 107 Carbon Dioxide 25 Anion Gap 15 BUN 18 H Creatinine 0.96 Estim Creat Clear Calc 47.4 Estimated GFR 57 Fasting Glucose 98 Calcium 9.5 D Total Bilirubin 0.9 AST 23 ALT 24 Alkaline Phosphatase 69 Total Protein 7.5 Albumin 3.9 Triglycerides 73 Cholesterol 203 H LDL Cholesterol, Calc 131 H HDL Cholesterol 58 COVID-19 (EMILIANA) Negative COVID-19 Clin Com See Note Meds/Allergies Meds Home Medications Medication Instructions Recorded Confirmed Type lorazepam 0.5 mg tablet 0.25 - 0.5 mg PO TID PRN ANIXETY 05/21/23 05/21/23 History Allergies Allergies Allergy/AdvReac Type Severity Reaction Status Date / Time risperidone [From Risperdal] Allergy Intermediate UNKNOWN Verified 05/12/23 13:13 Sulfa (Sulfonamide Allergy Intermediate rash Verified 05/12/23 13:13 Antibiotics) From BENADRYL Allergy Intermediate DIZZY Uncoded 02/14/23 11:47 Mental Status Exam Mental Status Exam Patient Appearance: Appropriate Patient Orientation: Person, Place, Time and Situation Level of Consciousness: Awake and Appropriate Patient Behavior: Appropriate Mood Description: Withdrawn, Depressed, Blunted, Flat and Apprehensive Affect Description: Appropriate, Constricted and Apprehensive Patient Cognition Impaired: Yes Ability to Follow Directions: Good Speech Pattern: Clear Memory Description: Recent Impaired and Working Impaired Hallucinations: None Delusions: Not Present Thought Process: Intact and Goal Oriented Thought Content: positive for Racing, positive for Obsessional Thoughts, positive for Goal Oriented, positive for Perseveration, positive for Preoccupation, negative for Suicidal Ideation or negative for Homicidal Ideation Depressive Symptoms: Increased Anxiety, Increased Irritability, Hopelessness, Increased Fatigue, Loss of Energy and Difficulty Concentrating Abnormal Motor Activity Signs and Symptoms: Restlessness Judgement: Fair Judgement and Insight: PATIENT RUMINATING RACING THOUGHTS EASILY AGITATED FEARFUL INTERNALLY PREOCCUPIED Assessment & Plan Assessment & Plan (1) Major depressive disorder, recurrent severe without psychotic features: Status: Acute Code(s): F33.2 - Major depressive disorder, recurrent severe without psychotic features (2) POONAM (generalized anxiety disorder): Status: Acute Code(s): F41.1 - Generalized anxiety disorder Plan PATIENT HAS A HISTORY OF RECURRENT DEPRESSION QUESTION OF MIXED STATES QUESTION OF BIPOLAR VARIANT. PATIENT COGNITIVELY HAS GENERALLY BEEN STABLE ON COMBINATION OF ARICEPT NAMENDA AND HAS NOT SHOWN ANY AGGRESSIVE DETERIORATION OF COGNITIVE FUNCTIONING HAS HISTORY OF ATTENTIONAL PROBLEMS DIFFICULTY CONCENTRATION SHORT-TERM MEMORY THIS IS EXACERBATED WHEN PATIENT IS IN AND ANXIOUS DEPRESSION. HAS REQUIRED ECT IN THE PAST. WAS GENERALLY STABLE FOR A NUMBER OF YEARS ON DOXEPIN TRINTELLIX. CAPLYTA V CURRENTLY AT 21 MG WILL INCREASE TOLERATED MONITOR RESPONSE WILL ALSO TRYING GET A SLEEP STUDY PATIENT HAS CHRONIC INTERMITTENT INSOMNIA COGNITIVE IMPAIRMENT RULE OUT OBSTRUCTIVE SLEEP APNEA QUESTION OF UTI DID NOT RESPOND COGNITIVE ANTIBIOTIC TREATMENT. CHECK TSH VITAMIN-D LEVEL CHEMISTRIES CBC UNREMARKABLE Patient educated on: diagnosis and medication risk/benefits Informed Consent: further education needed Reason for continued inpatient stay Substantial Risk for: inability to function, rapid decompensation and med/psych decompensation Statement Statement: I have reviewed the history and physical and performed a pertinent examination on my patient. No changes have occurred unless specified. If the History and Physical was not performed prior to admission, the Hospitalist's service will be consulted for completing the admission physical. Time Spent With Patient Time: Total time managing care of this patient today __60__ minutes.
[2023-05-26] MEDS: CAPLYTA 21 EACH PO (17:13)
[2023-05-26 18:00] VITALS: BP 120/60; PULSE 76; RESP 17; TEMP 36.6; O2SAT 99
[2023-05-26] MEDS: Donepezil HCl 5 MG TABLET PO (20:07)
[2023-05-26] MEDS: Zolpidem Tartrate 5 MG TABLET PO (20:08)
[2023-05-26] MEDS: Doxepin HCl 25 MG CAPSULE 100 MG PO (20:08)
[2023-05-26] MEDS: Memantine HCl 10 MG TABLET PO (20:08)
--- NOTE | 2023-05-26 23:17 | PC.RT ---
Pt started on overnight sleep study on RA with sitter at bedside. RN aware
[2023-05-27] MEDS: Vortioxetine Hydrobromide 20 MG TABLET PO (08:42)
[2023-05-27] MEDS: Thiamine HCL 100 MG TABLET PO ×2 (08:42→19:47)
[2023-05-27] MEDS: Memantine HCl 10 MG TABLET PO ×2 (08:42→19:47)
[2023-05-27] MEDS: Nitrofurantoin Monohyd/M-Cryst 100 MG CAPSULE PO ×2 (08:42→19:48)
[2023-05-27] MEDS: Folic Acid 1 MG TABLET PO (08:42)
--- NOTE | 2023-05-27 08:50 | P.PNPSI_ITS ---
Subjective Subjective Date of Service: 05/27/23 Reason For Visit: Severe Depression Agitation Subjective Notes: Conditional Voluntary Interim History: Patient depressed anxious ruminating complains of insomnia discussing how hard she finds it to deal with her when she feels like the overwhelmed poor attention concentration and memory Mental Status Exam Mental Status Exam Patient Appearance: Appropriate Patient Orientation: Person, Place, Time and Situation Level of Consciousness: Awake Patient Behavior: Appropriate Mood Description: Withdrawn, Depressed, Blunted, Flat and Apprehensive Affect Description: Appropriate, Constricted and Apprehensive Patient Cognition Impaired: Yes Ability to Follow Directions: Good Speech Pattern: Clear Memory Description: Recent Impaired and Working Impaired Hallucinations: None Delusions: Not Present Thought Process: Intact and Goal Oriented Thought Content: positive for Racing, positive for Obsessional Thoughts, positive for Goal Oriented, positive for Perseveration, positive for Preoccupation, negative for Suicidal Ideation or negative for Homicidal Ideation Depressive Symptoms: Increased Anxiety, Increased Irritability, Hopelessness, Increased Fatigue, Loss of Energy and Difficulty Concentrating Abnormal Motor Activity Signs and Symptoms: Restlessness Judgement: Fair Judgement and Insight: Racing thoughts difficulty concentrating hopeless helpless Diagnostics Vital Signs (24Hr): Vital Signs - 24 hr 05/26/23 18:00 Temperature 97.8 F Pulse Rate 76 Respiratory Rate 17 Blood Pressure 120/60 Pulse Oximetry 99 Oxygen Delivery Method Room Air BMI result Body Mass Index 30.8 Labs 05/21/23 17:09 05/26/23 07:44 Labs: Laboratory Results - last 48 hr 05/25/23 05/26/23 08:55 07:44 Sodium 143 Potassium 4.2 Chloride 107 Carbon Dioxide 25 Anion Gap 15 BUN 18 H Creatinine 0.96 Estim Creat Clear Calc 47.4 Estimated GFR 57 Fasting Glucose 98 Calcium 9.5 D Total Bilirubin 0.9 AST 23 ALT 24 Alkaline Phosphatase 69 Total Protein 7.5 Albumin 3.9 Triglycerides 73 Cholesterol 203 H LDL Cholesterol, Calc 131 H HDL Cholesterol 58 COVID-19 ([facility]) Negative COVID-19 Clin Com See Note Medications Medications Current Medications Acetaminophen (Acetaminophen 325 Mg Tablet) 650 mg PO Q6H PRN PRN Reason: Headache/Pain Mild Scale (1-3) Al Hydroxide/Mg Hydroxide (Magnesium Hydrox/Alum Hydrox 30 Ml Oral.Susp) 30 ml PO Q6H PRN PRN Reason: Heartburn/Nausea Donepezil HCl (Donepezil Hcl 5 Mg Tablet) 5 mg PO BEDTIME [facility] Last Admin: 05/26/23 20:07 Dose: 5 mg Doxepin HCl (Doxepin Hcl 25 Mg Capsule) 100 mg PO BEDTIME [facility] Last Admin: 05/26/23 20:08 Dose: 100 mg Folic Acid (Folic Acid 1 Mg Tablet) 1 mg PO DAILY [facility] Last Admin: 05/27/23 08:42 Dose: 1 mg Lorazepam (Lorazepam 0.5 Mg Tablet) 0.25 mg PO TID PRN PRN Reason: ANIXETY Last Admin: 05/25/23 16:36 Dose: 0.25 mg Magnesium Hydroxide (Milk Of Magnesia 30 Ml Oral.Susp) 30 ml PO DAILY PRN PRN Reason: Constipation Memantine (Memantine Hcl 10 Mg Tablet) 10 mg PO BID [facility] Last Admin: 05/27/23 08:42 Dose: 10 mg Nitrofurantoin Macrocrystals (Nitrofurantoin Monohyd/M-Cryst 100 Mg Capsule) 100 mg PO BID [facility] Stop: 05/29/23 08:59 Last Admin: 05/27/23 08:42 Dose: 100 mg Non-Formulary Medication ( Lumateperone 21 Mg) 31.5 mg PO DAILY [facility] Last Admin: 05/26/23 17:15 Dose: Not Given Quetiapine Fumarate (Quetiapine Fumarate 25 Mg Tablet) 25 mg PO Q4H PRN PRN Reason: anxiety/restlessness Last Admin: 05/26/23 14:46 Dose: 25 mg Thiamine HCl (Thiamine Hcl 100 Mg Tablet) 100 mg PO BID [facility] Last Admin: 05/27/23 08:42 Dose: 100 mg Vortioxetine (Vortioxetine Hydrobromide 20 Mg Tablet) 20 mg PO DAILY [facility] Last Admin: 05/27/23 08:42 Dose: 20 mg Allergies Allergies Allergy/AdvReac Type Severity Reaction Status Date / Time risperidone [From Risperdal] Allergy Intermediate UNKNOWN Verified 05/12/23 13:13 Sulfa (Sulfonamide Allergy Intermediate rash Verified 05/12/23 13:13 Antibiotics) From BENADRYL Allergy Intermediate DIZZY Uncoded 02/14/23 11:47 Assessment & Plan Assessment & Plan (1) Major depressive disorder, recurrent severe without psychotic features: Status: Acute Code(s): F33.2 - Major depressive disorder, recurrent severe without psychotic features (2) POONAM (generalized anxiety disorder): Status: Acute Code(s): F41.1 - Generalized anxiety disorder Plan 05/27/2023 Increase captyla 42 mg monitor for agitation and tolerance Seroquel 25 mg at bedtime Reason for continued inpatient stay Substantial Risk for: inability to function and rapid decompensation Time Spent With Patient Time: Total time managing care of this patient today ____ minutes.
[2023-05-27 09:00] VITALS: BP 133/67; PULSE 77; RESP 16; TEMP 36.3; O2SAT 96
[2023-05-27 18:00] VITALS: BP 136/63; PULSE 88; RESP 16; TEMP 36; O2SAT 95
[2023-05-27] MEDS: Doxepin HCl 25 MG CAPSULE 100 MG PO (19:46)
[2023-05-27] MEDS: Donepezil HCl 5 MG TABLET PO (19:48)
[2023-05-27] MEDS: QUEtiapine Fumarate 25 MG TABLET PO (19:52)
[2023-05-28 07:00] VITALS: BMI 30.7
[2023-05-28] MEDS: Nitrofurantoin Monohyd/M-Cryst 100 MG CAPSULE PO ×2 (08:05→21:49)
[2023-05-28] MEDS: Memantine HCl 10 MG TABLET PO ×2 (08:05→21:49)
[2023-05-28] MEDS: Folic Acid 1 MG TABLET PO (08:05)
[2023-05-28] MEDS: Vortioxetine Hydrobromide 20 MG TABLET PO (08:05)
[2023-05-28] MEDS: Thiamine HCL 100 MG TABLET PO ×2 (08:05→21:50)
[2023-05-28 08:09] VITALS: BP 137/77; PULSE 103; RESP 16; TEMP 36.2; O2SAT 95
--- NOTE | 2023-05-28 17:13 | P.PNPSI_ITS ---
Subjective Subjective Date of Service: 05/28/23 Reason For Visit: Severe Depression Agitation Subjective Notes: Conditional Voluntary Interim History: Patient depressed and anxious ruminating Mental Status Exam Mental Status Exam Patient Appearance: Appropriate Patient Orientation: Person, Place, Time and Situation Level of Consciousness: Awake Patient Behavior: Appropriate Mood Description: Withdrawn, Depressed, Blunted, Flat and Apprehensive Affect Description: Appropriate, Constricted and Apprehensive Patient Cognition Impaired: Yes Ability to Follow Directions: Good Speech Pattern: Clear Memory Description: Recent Impaired and Working Impaired Hallucinations: None Delusions: Not Present Thought Process: Intact and Goal Oriented Thought Content: positive for Racing, positive for Obsessional Thoughts, positive for Goal Oriented, positive for Perseveration, positive for Preoccupation, negative for Suicidal Ideation or negative for Homicidal Ideation Depressive Symptoms: Increased Anxiety, Increased Irritability, Hopelessness, Increased Fatigue, Loss of Energy and Difficulty Concentrating Abnormal Motor Activity Signs and Symptoms: Restlessness Judgement: Fair Judgement and Insight: Racing thoughts difficulty concentrating hopeless helpless Diagnostics Vital Signs (24Hr): Vital Signs - 24 hr 05/27/23 18:00 05/28/23 08:09 Temperature 96.8 F 97.2 F Pulse Rate 88 103 H Respiratory Rate 16 16 Blood Pressure 136/63 137/77 Pulse Oximetry 95 95 Oxygen Delivery Method Room Air Room Air BMI result Body Mass Index 30.7 Labs 05/21/23 17:09 05/26/23 07:44 Medications Medications Current Medications Acetaminophen (Acetaminophen 325 Mg Tablet) 650 mg PO Q6H PRN PRN Reason: Headache/Pain Mild Scale (1-3) Al Hydroxide/Mg Hydroxide (Magnesium Hydrox/Alum Hydrox 30 Ml Oral.Susp) 30 ml PO Q6H PRN PRN Reason: Heartburn/Nausea Donepezil HCl (Donepezil Hcl 5 Mg Tablet) 5 mg PO BEDTIME [facility] Last Admin: 05/27/23 19:48 Dose: 5 mg Doxepin HCl (Doxepin Hcl 25 Mg Capsule) 100 mg PO BEDTIME [facility] Last Admin: 05/27/23 19:46 Dose: 100 mg Folic Acid (Folic Acid 1 Mg Tablet) 1 mg PO DAILY [facility] Last Admin: 05/28/23 08:05 Dose: 1 mg Lorazepam (Lorazepam 0.5 Mg Tablet) 0.25 mg PO TID PRN PRN Reason: ANIXETY Last Admin: 05/25/23 16:36 Dose: 0.25 mg Magnesium Hydroxide (Milk Of Magnesia 30 Ml Oral.Susp) 30 ml PO DAILY PRN PRN Reason: Constipation Memantine (Memantine Hcl 10 Mg Tablet) 10 mg PO BID [facility] Last Admin: 05/28/23 08:05 Dose: 10 mg Nitrofurantoin Macrocrystals (Nitrofurantoin Monohyd/M-Cryst 100 Mg Capsule) 100 mg PO BID [facility] Stop: 05/29/23 08:59 Last Admin: 05/28/23 08:05 Dose: 100 mg Pt Own (Lumateperone (42 Mg)) 42 mg PO DAILY [facility] Last Admin: 05/28/23 08:05 Dose: 42 mg Quetiapine Fumarate (Quetiapine Fumarate 25 Mg Tablet) 25 mg PO Q4H PRN PRN Reason: anxiety/restlessness Last Admin: 05/27/23 19:52 Dose: 25 mg Quetiapine Fumarate (Quetiapine Fumarate 25 Mg Tablet) 25 mg PO BEDTIME [facility] Last Admin: 05/28/23 04:50 Dose: Not Given Thiamine HCl (Thiamine Hcl 100 Mg Tablet) 100 mg PO BID [facility] Last Admin: 05/28/23 08:05 Dose: 100 mg Vortioxetine (Vortioxetine Hydrobromide 20 Mg Tablet) 20 mg PO DAILY [facility] Last Admin: 05/28/23 08:05 Dose: 20 mg Allergies Allergies Allergy/AdvReac Type Severity Reaction Status Date / Time risperidone [From Risperdal] Allergy Intermediate UNKNOWN Verified 05/12/23 13:13 Sulfa (Sulfonamide Allergy Intermediate rash Verified 05/12/23 13:13 Antibiotics) From BENADRYL Allergy Intermediate DIZZY Uncoded 02/14/23 11:47 Assessment & Plan Assessment & Plan (1) Major depressive disorder, recurrent severe without psychotic features: Status: Acute Code(s): F33.2 - Major depressive disorder, recurrent severe without psychotic features (2) POONAM (generalized anxiety disorder): Status: Acute Code(s): F41.1 - Generalized anxiety disorder Plan 05/27/2023 Increase captyla 42 mg monitor for agitation and tolerance Seroquel 25 mg at bedtime 05/28/23 cont plan of care Patient educated on: diagnosis and medical condition Reason for continued inpatient stay Substantial Risk for: inability to function and rapid decompensation Time Spent With Patient Time: Total time managing care of this patient today ____ minutes.
[2023-05-28 18:00] VITALS: BP 125/59; PULSE 75; TEMP 36.3; O2SAT 96
[2023-05-28] MEDS: Donepezil HCl 5 MG TABLET PO (21:48)
[2023-05-28] MEDS: LORazepam 0.5 MG TABLET 0.25 MG PO (21:48)
[2023-05-28] MEDS: QUEtiapine Fumarate 25 MG TABLET PO (21:49)
[2023-05-28] MEDS: Doxepin HCl 25 MG CAPSULE 100 MG PO (21:50)
[2023-05-29] MEDS: Thiamine HCL 100 MG TABLET PO ×2 (08:17→20:46)
[2023-05-29] MEDS: Vortioxetine Hydrobromide 20 MG TABLET PO (08:17)
[2023-05-29] MEDS: Memantine HCl 10 MG TABLET PO ×2 (08:17→20:47)
[2023-05-29] MEDS: Folic Acid 1 MG TABLET PO (08:17)
[2023-05-29 08:36] VITALS: BP 130/59; PULSE 87; RESP 16; TEMP 37.3; O2SAT 94
[2023-05-29 17:39] VITALS: BP 133/75; PULSE 100; RESP 18; TEMP 36.4; O2SAT 95
[2023-05-29] MEDS: Doxepin HCl 25 MG CAPSULE 100 MG PO (20:46)
[2023-05-29] MEDS: QUEtiapine Fumarate 25 MG TABLET PO (20:46)
[2023-05-29] MEDS: Donepezil HCl 5 MG TABLET PO (20:46)
[2023-05-29] MEDS: LORazepam 0.5 MG TABLET 0.25 MG PO (20:46)
--- NOTE | 2023-05-29 22:20 | P.PNPSI_ITS ---
Subjective Subjective Date of Service: 05/29/23 Reason For Visit: Severe Depression Agitation Subjective Notes: Conditional Voluntary Interim History: ptanxious dysphoric ruminating Mental Status Exam Mental Status Exam Patient Appearance: Appropriate Patient Orientation: Person, Place, Time and Situation Level of Consciousness: Awake Patient Behavior: Appropriate Mood Description: Withdrawn, Depressed, Blunted, Flat and Apprehensive Affect Description: Appropriate, Constricted and Apprehensive Patient Cognition Impaired: Yes Ability to Follow Directions: Good Speech Pattern: Clear Memory Description: Recent Impaired and Working Impaired Hallucinations: None Delusions: Not Present Thought Process: Intact and Goal Oriented Thought Content: positive for Racing, positive for Obsessional Thoughts, positive for Goal Oriented, positive for Perseveration, positive for Preoccupation, negative for Suicidal Ideation or negative for Homicidal Ideation Depressive Symptoms: Increased Anxiety, Increased Irritability, Hopelessness, Increased Fatigue, Loss of Energy and Difficulty Concentrating Abnormal Motor Activity Signs and Symptoms: Restlessness Judgement: Fair Judgement and Insight: Racing thoughts difficulty concentrating hopeless helpless Diagnostics Vital Signs (24Hr): Vital Signs - 24 hr 05/29/23 08:36 05/29/23 17:39 Temperature 99.1 F 97.5 F Pulse Rate 87 100 Respiratory Rate 16 18 Blood Pressure 130/59 L 133/75 Pulse Oximetry 94 95 Oxygen Delivery Method Room Air Room Air BMI result Body Mass Index 30.7 Labs 05/21/23 17:09 05/26/23 07:44 Medications Medications Current Medications Acetaminophen (Acetaminophen 325 Mg Tablet) 650 mg PO Q6H PRN PRN Reason: Headache/Pain Mild Scale (1-3) Al Hydroxide/Mg Hydroxide (Magnesium Hydrox/Alum Hydrox 30 Ml Oral.Susp) 30 ml PO Q6H PRN PRN Reason: Heartburn/Nausea Donepezil HCl (Donepezil Hcl 5 Mg Tablet) 5 mg PO BEDTIME [facility] Last Admin: 05/29/23 20:46 Dose: 5 mg Doxepin HCl (Doxepin Hcl 25 Mg Capsule) 100 mg PO BEDTIME [facility] Last Admin: 05/29/23 20:46 Dose: 100 mg Folic Acid (Folic Acid 1 Mg Tablet) 1 mg PO DAILY [facility] Last Admin: 05/29/23 08:17 Dose: 1 mg Lorazepam (Lorazepam 0.5 Mg Tablet) 0.25 mg PO TID PRN PRN Reason: ANIXETY Last Admin: 05/29/23 20:46 Dose: 0.25 mg Magnesium Hydroxide (Milk Of Magnesia 30 Ml Oral.Susp) 30 ml PO DAILY PRN PRN Reason: Constipation Memantine (Memantine Hcl 10 Mg Tablet) 10 mg PO BID [facility] Last Admin: 05/29/23 20:47 Dose: 10 mg Pt Own (Lumateperone (42 Mg)) 42 mg PO DAILY [facility] Last Admin: 05/29/23 08:17 Dose: 42 mg Quetiapine Fumarate (Quetiapine Fumarate 25 Mg Tablet) 25 mg PO Q4H PRN PRN Reason: anxiety/restlessness Last Admin: 05/27/23 19:52 Dose: 25 mg Quetiapine Fumarate (Quetiapine Fumarate 25 Mg Tablet) 25 mg PO BEDTIME [facility] Last Admin: 05/29/23 20:46 Dose: 25 mg Thiamine HCl (Thiamine Hcl 100 Mg Tablet) 100 mg PO BID [facility] Last Admin: 05/29/23 20:46 Dose: 100 mg Vortioxetine (Vortioxetine Hydrobromide 20 Mg Tablet) 20 mg PO DAILY [facility] Last Admin: 05/29/23 08:17 Dose: 20 mg Allergies Allergies Allergy/AdvReac Type Severity Reaction Status Date / Time risperidone [From Risperdal] Allergy Intermediate UNKNOWN Verified 05/12/23 13:13 Sulfa (Sulfonamide Allergy Intermediate rash Verified 05/12/23 13:13 Antibiotics) From BENADRYL Allergy Intermediate DIZZY Uncoded 02/14/23 11:47 Assessment & Plan Assessment & Plan (1) Major depressive disorder, recurrent severe without psychotic features: Status: Acute Code(s): F33.2 - Major depressive disorder, recurrent severe without psychotic features (2) POONAM (generalized anxiety disorder): Status: Acute Code(s): F41.1 - Generalized anxiety disorder Plan 05/27/2023 Increase captyla 42 mg monitor for agitation and tolerance Seroquel 25 mg at bedtime 05/28/23 cont plan of care 05/29/23 Cont plan of care ? pulm consult hypoxia at hs ? Patient educated on: medication risk/benefits and medical condition Informed Consent: further education needed Reason for continued inpatient stay Substantial Risk for: inability to function, rapid decompensation and med/psych decompensation Time Spent With Patient Time: Total time managing care of this patient today ____ minutes.
[2023-05-30] MEDS: Folic Acid 1 MG TABLET PO (08:03)
[2023-05-30] MEDS: Memantine HCl 10 MG TABLET PO ×2 (08:03→21:01)
[2023-05-30] MEDS: Vortioxetine Hydrobromide 20 MG TABLET PO (08:03)
[2023-05-30] MEDS: Thiamine HCL 100 MG TABLET PO ×2 (08:03→21:01)
[2023-05-30 08:10] VITALS: BP 129/78; PULSE 115; RESP 16; TEMP 36.6; O2SAT 98
--- NOTE | 2023-05-30 10:14 | P.PNPSI_ITS ---
Subjective Subjective Date of Service: 05/30/23 Reason For Visit: Severe Depression Agitation Subjective Notes: Conditional Voluntary Interim History: Patient depressed withdrawn lethargic hopeless helpless Mental Status Exam Mental Status Exam Patient Appearance: Appropriate Patient Orientation: Person, Place, Time and Situation Level of Consciousness: Awake Patient Behavior: Appropriate Mood Description: Withdrawn, Depressed, Blunted, Flat and Apprehensive Affect Description: Appropriate, Constricted and Apprehensive Patient Cognition Impaired: Yes Ability to Follow Directions: Good Speech Pattern: Clear Memory Description: Recent Impaired and Working Impaired Hallucinations: None Delusions: Not Present Thought Process: Intact and Goal Oriented Thought Content: positive for Racing, positive for Obsessional Thoughts, positive for Goal Oriented, positive for Perseveration, positive for Preoccupation, negative for Suicidal Ideation or negative for Homicidal Ideation Depressive Symptoms: Increased Anxiety, Increased Irritability, Hopelessness, Increased Fatigue, Loss of Energy and Difficulty Concentrating Abnormal Motor Activity Signs and Symptoms: Restlessness Judgement: Fair Judgement and Insight: Racing thoughts difficulty concentrating hopeless helpless Diagnostics Vital Signs (24Hr): Vital Signs - 24 hr 05/29/23 17:39 05/30/23 08:10 Temperature 97.5 F 97.8 F Pulse Rate 100 115 H Respiratory Rate 18 16 Blood Pressure 133/75 129/78 Pulse Oximetry 95 98 Oxygen Delivery Method Room Air Room Air BMI result Body Mass Index 30.7 Labs 05/21/23 17:09 05/26/23 07:44 Medications Medications Current Medications Acetaminophen (Acetaminophen 325 Mg Tablet) 650 mg PO Q6H PRN PRN Reason: Headache/Pain Mild Scale (1-3) Al Hydroxide/Mg Hydroxide (Magnesium Hydrox/Alum Hydrox 30 Ml Oral.Susp) 30 ml PO Q6H PRN PRN Reason: Heartburn/Nausea Donepezil HCl (Donepezil Hcl 5 Mg Tablet) 5 mg PO BEDTIME [facility] Last Admin: 05/29/23 20:46 Dose: 5 mg Doxepin HCl (Doxepin Hcl 25 Mg Capsule) 100 mg PO BEDTIME [facility] Last Admin: 05/29/23 20:46 Dose: 100 mg Folic Acid (Folic Acid 1 Mg Tablet) 1 mg PO DAILY [facility] Last Admin: 05/30/23 08:03 Dose: 1 mg Lorazepam (Lorazepam 0.5 Mg Tablet) 0.25 mg PO TID PRN PRN Reason: ANIXETY Last Admin: 05/29/23 20:46 Dose: 0.25 mg Magnesium Hydroxide (Milk Of Magnesia 30 Ml Oral.Susp) 30 ml PO DAILY PRN PRN Reason: Constipation Memantine (Memantine Hcl 10 Mg Tablet) 10 mg PO BID [facility] Last Admin: 05/30/23 08:03 Dose: 10 mg Pt Own (Lumateperone (42 Mg)) 42 mg PO DAILY [facility] Last Admin: 05/30/23 08:03 Dose: 42 mg Quetiapine Fumarate (Quetiapine Fumarate 25 Mg Tablet) 25 mg PO Q4H PRN PRN Reason: anxiety/restlessness Last Admin: 05/27/23 19:52 Dose: 25 mg Quetiapine Fumarate (Quetiapine Fumarate 25 Mg Tablet) 25 mg PO BEDTIME [facility] Last Admin: 05/29/23 20:46 Dose: 25 mg Thiamine HCl (Thiamine Hcl 100 Mg Tablet) 100 mg PO BID [facility] Last Admin: 05/30/23 08:03 Dose: 100 mg Vortioxetine (Vortioxetine Hydrobromide 20 Mg Tablet) 20 mg PO DAILY [facility] Last Admin: 05/30/23 08:03 Dose: 20 mg Allergies Allergies Allergy/AdvReac Type Severity Reaction Status Date / Time risperidone [From Risperdal] Allergy Intermediate UNKNOWN Verified 05/12/23 13:13 Sulfa (Sulfonamide Allergy Intermediate rash Verified 05/12/23 13:13 Antibiotics) From BENADRYL Allergy Intermediate DIZZY Uncoded 02/14/23 11:47 Assessment & Plan Assessment & Plan (1) Major depressive disorder, recurrent severe without psychotic features: Status: Acute Code(s): F33.2 - Major depressive disorder, recurrent severe without psychotic features (2) POONAM (generalized anxiety disorder): Status: Acute Code(s): F41.1 - Generalized anxiety disorder Plan 05/27/2023 Increase captyla 42 mg monitor for agitation and tolerance Seroquel 25 mg at bedtime 05/28/23 cont plan of care 05/29/23 Cont plan of care ? pulm consult hypoxia at hs ? 05/30/2023 Change captyla to evening Reason for continued inpatient stay Substantial Risk for: harm to self and inability to function Time Spent With Patient Time: Total time managing care of this patient today ____ minutes.
[2023-05-30 18:00] VITALS: BP 161/81; PULSE 87; RESP 16; TEMP 36.5; O2SAT 95
[2023-05-30] MEDS: LORazepam 0.5 MG TABLET 0.25 MG PO (21:00)
[2023-05-30] MEDS: Donepezil HCl 5 MG TABLET PO (21:01)
[2023-05-30] MEDS: QUEtiapine Fumarate 25 MG TABLET PO (21:01)
[2023-05-30] MEDS: Doxepin HCl 25 MG CAPSULE 100 MG PO (21:01)
[2023-05-31 06:00] VITALS: BP 144/67; PULSE 86; RESP 16; TEMP 36.6; O2SAT 98
[2023-05-31] MEDS: Memantine HCl 10 MG TABLET PO ×2 (08:42→20:24)
[2023-05-31] MEDS: Vortioxetine Hydrobromide 20 MG TABLET PO (08:42)
[2023-05-31] MEDS: Thiamine HCL 100 MG TABLET PO ×2 (08:43→20:24)
[2023-05-31] MEDS: Folic Acid 1 MG TABLET PO (08:43)
[2023-05-31 16:55] VITALS: BP 132/70; PULSE 85; RESP 16; TEMP 36.4; O2SAT 96
--- NOTE | 2023-05-31 18:48 | HO.PM.IMCN ---
History of Present Illness Data of Consult Service Date: 05/31/23 Primary Care Provider: Brittany Medina MD [facility] Reason for consult: ECT clearance Patient is a 72-year-old female with a PMH significant for MDD and POONAM who was seen for ECT clearance. Patient states she previously underwent ECT in 2018, and she felt like it helped her quite a bit. Denies any side effects. No reported problems with anesthesia. Patient also denies a PMH of cerebral hemorrhage or stroke, CAD, space-occupying intracranial lesion, bleeding disorder, or unstable vascular aneurysm. No history of seizure disorders, TBI, or severe pulmonary condition. EKG from 05/25/2023 showed normal sinus rhythm with QTc 418 and without evidence of significant ST elevations or depressions or significant ischemic changes. Currently patient says she feels physically ?healthy?. Denies chest pain/pressure, palpitations. No shortness of breath. Denies fever, chills, nausea, vomiting, abdominal pain. No headache or acute vision changes. Review of Systems Review of Systems: Patient has no acute medical complaints at this time [facility] Medical History (Updated 05/31/23 @ 19:21 by DANTE Matias) Preoperative examination Elevated glucose Screening for colon cancer Screening for diabetes mellitus Obesity (BMI 30-39.9) Confused but orients easily Depression, major, severe recurrence Abnormal serum protein electrophoresis Mild recurrent major depression Anxiety and depression Encounter for Medicare annual wellness exam Removal of nell Depression with anxiety Abdominal distention Weight gain Major depression, recurrent, full remission POONAM (generalized anxiety disorder) Hypothyroidism Hyperparathyroidism Multinodular thyroid Vitamin D deficiency Osteoporosis Family History Father Myocardial infarction CVD (cardiovascular disease) Mother Dementia Alzheimer disease Other Mental health disorder Surgical History Hx of colonoscopy Hx of kyphoplasty Hx of section Social History Household Members: Spouse Housing: Apartment Do you presently have visiting nurse or other home services: No Alcohol intake: never Patient Tobacco Use Status: Never used Tobacco Smoked in Last 30 Days: No e-Cigarette/Vaping Use: Never Used Second Hand Smoke Exposure: No Use of substances other than those prescribed or required for medical reasons: No Currently Displaying Signs/Symptoms of Drug Intoxication Withdrawal: No Have you been hit, kicked, punched, or otherwise hurt by someone within the past year? If so, by whom?: No Do you feel safe in your current relationship?: Yes Is there a partner from a previous relationship who is making you feel unsafe now?: No Are you made to feel afraid or neglected: No Spiritual Healthcare Practices: I believe in God [facility] Healthcare Practices: I believe in God Advance Directives: No Advance Directives Information Provided: No Healthcare Proxy: Yes Guardian: No Do you have thoughts of harming others: None Do you have a plan to hurt others: No Plan Recently lost weight without trying: No How much weight loss: Not applicable Eating poorly because of decreased appetite: No Nutrition screen score: 0 Nutrition Risks: No Nutritional Risk Patient : No : No Poor oral hygiene: No service: No Current occupational status: unemployed Sexual orientation: Straight/Heterosexual Cognitive needs: No Hearing needs: No Meds Allergies Allergy/AdvReac Type Severity Reaction Status Date / Time risperidone [From Risperdal] Allergy Intermediate UNKNOWN Verified 05/12/23 13:13 Sulfa (Sulfonamide Allergy Intermediate rash Verified 05/12/23 13:13 Antibiotics) From BENADRYL Allergy Intermediate DIZZY Uncoded 02/14/23 11:47 Active Medications: Current Medications Acetaminophen (Acetaminophen 325 Mg Tablet) 650 mg PO Q6H PRN PRN Reason: Headache/Pain Mild Scale (1-3) Al Hydroxide/Mg Hydroxide (Magnesium Hydrox/Alum Hydrox 30 Ml Oral.Susp) 30 ml PO Q6H PRN PRN Reason: Heartburn/Nausea Donepezil HCl (Donepezil Hcl 5 Mg Tablet) 5 mg PO BEDTIME [facility] Last Admin: 05/30/23 21:01 Dose: 5 mg Doxepin HCl (Doxepin Hcl 25 Mg Capsule) 100 mg PO BEDTIME [facility] Last Admin: 05/30/23 21:01 Dose: 100 mg Folic Acid (Folic Acid 1 Mg Tablet) 1 mg PO DAILY [facility] Last Admin: 05/31/23 08:43 Dose: 1 mg Magnesium Hydroxide (Milk Of Magnesia 30 Ml Oral.Susp) 30 ml PO DAILY PRN PRN Reason: Constipation Memantine (Memantine Hcl 10 Mg Tablet) 10 mg PO BID [facility] Last Admin: 05/31/23 08:42 Dose: 10 mg Pt Own (Lumateperone (42 Mg)) 42 mg PO DAILY@1700 [facility] Quetiapine Fumarate (Quetiapine Fumarate 25 Mg Tablet) 25 mg PO Q4H PRN PRN Reason: anxiety/restlessness Last Admin: 05/27/23 19:52 Dose: 25 mg Quetiapine Fumarate (Quetiapine Fumarate 25 Mg Tablet) 25 mg PO BEDTIME [facility] Last Admin: 05/30/23 21:01 Dose: 25 mg Thiamine HCl (Thiamine Hcl 100 Mg Tablet) 100 mg PO BID [facility] Last Admin: 05/31/23 08:43 Dose: 100 mg Vortioxetine (Vortioxetine Hydrobromide 20 Mg Tablet) 20 mg PO DAILY [facility] Last Admin: 05/31/23 08:42 Dose: 20 mg Home Medications Medication Instructions Recorded Confirmed Last Taken Type lorazepam 0.5 mg tablet 0.25 - 0.5 mg PO TID PRN ANIXETY 05/21/23 05/21/23 Unknown History Physical Exam Vital Signs and Narrative: Vital Signs: Last Vital Signs Temp 97.6 F 05/31/23 16:55 Pulse 85 05/31/23 16:55 Resp 16 05/31/23 16:55 BP 132/70 05/31/23 16:55 Pulse Ox 96 05/31/23 16:55 O2 Del Method Room Air 05/31/23 16:55 BMI result Body Mass Index 30.7 General: AOx3, no acute distress Resp: CTA bilaterally CVS: S1, S2, RRR GI: +BS, NT, no distention Skin: Warm, dry Neuro: Cranial nerves II-XII grossly intact bilaterally. Motor grossly intact bilaterally Extremities: No edema Psych: Appropriate affect Results Labs 06/01/23 07:23 06/01/23 07:23 Assessment and Plan (1) Preoperative examination: Status: Acute Plan Patient is a 72-year-old female with a PMH significant for MDD and POONAM who was seen for ECT clearance. The patient has undergone ECT in the past without incident, says it proved beneficial. Patient has no acute medical complaints at this time. Mood disorder Plan as per Psychiatry ECT clearance Repeat EKG still pending, will evaluate when done Otherwise, no obvious medical contraindications to preclude patient from undergoing ECT clearance Thank you for allowing us to participate in the care of this patient. Still waiting on repeat EKG.
[2023-05-31] MEDS: Donepezil HCl 5 MG TABLET PO (20:24)
[2023-05-31] MEDS: Doxepin HCl 25 MG CAPSULE 100 MG PO (20:24)
[2023-05-31] MEDS: QUEtiapine Fumarate 25 MG TABLET PO (20:24)
[2023-05-31 20:55] VITALS: BP 132/63; PULSE 72; RESP 18; TEMP 36.6; O2SAT 96
--- NOTE | 2023-05-31 23:12 | HO.PSYCHPN ---
Subjective Subjective Date of Service: 05/31/23 Reason For Visit: Severe Depression Agitation Subjective Notes: Conditional Voluntary Interim History: Patient severely depressed hopeless helpless asking about ECT Mental Status Exam Mental Status Exam Patient Appearance: Appropriate Patient Orientation: Person, Place, Time and Situation Level of Consciousness: Awake Patient Behavior: Appropriate Mood Description: Withdrawn, Depressed, Blunted, Flat and Apprehensive Affect Description: Appropriate, Constricted and Apprehensive Patient Cognition Impaired: Yes Ability to Follow Directions: Good Speech Pattern: Clear Memory Description: Recent Impaired and Working Impaired Hallucinations: None Delusions: Not Present Thought Process: Intact and Goal Oriented Thought Content: positive for Racing, positive for Obsessional Thoughts, positive for Goal Oriented, positive for Perseveration, positive for Preoccupation, negative for Suicidal Ideation or negative for Homicidal Ideation Depressive Symptoms: Increased Anxiety, Increased Irritability, Hopelessness, Increased Fatigue, Loss of Energy and Difficulty Concentrating Abnormal Motor Activity Signs and Symptoms: Restlessness Judgement: Fair Judgement and Insight: Racing thoughts difficulty concentrating hopeless helpless Diagnostics Vital Signs (24Hr): Vital Signs - 24 hr 05/31/23 06:00 05/31/23 16:55 05/31/23 20:55 Temperature 97.8 F 97.6 F 97.8 F Pulse Rate 86 85 72 Respiratory Rate 16 16 18 Blood Pressure 144/67 H 132/70 132/63 Pulse Oximetry 98 96 96 Oxygen Delivery Method Room Air Room Air Room Air BMI result Body Mass Index 30.7 Labs 05/21/23 17:09 05/26/23 07:44 Medications Medications Current Medications Acetaminophen (Acetaminophen 325 Mg Tablet) 650 mg PO Q6H PRN PRN Reason: Headache/Pain Mild Scale (1-3) Al Hydroxide/Mg Hydroxide (Magnesium Hydrox/Alum Hydrox 30 Ml Oral.Susp) 30 ml PO Q6H PRN PRN Reason: Heartburn/Nausea Donepezil HCl (Donepezil Hcl 5 Mg Tablet) 5 mg PO BEDTIME [facility] Last Admin: 05/31/23 20:24 Dose: 5 mg Doxepin HCl (Doxepin Hcl 25 Mg Capsule) 100 mg PO BEDTIME [facility] Last Admin: 05/31/23 20:24 Dose: 100 mg Folic Acid (Folic Acid 1 Mg Tablet) 1 mg PO DAILY [facility] Last Admin: 05/31/23 08:43 Dose: 1 mg Magnesium Hydroxide (Milk Of Magnesia 30 Ml Oral.Susp) 30 ml PO DAILY PRN PRN Reason: Constipation Memantine (Memantine Hcl 10 Mg Tablet) 10 mg PO BID [facility] Last Admin: 05/31/23 20:24 Dose: 10 mg Pt Own (Lumateperone (42 Mg)) 42 mg PO DAILY@1700 [facility] Quetiapine Fumarate (Quetiapine Fumarate 25 Mg Tablet) 25 mg PO Q4H PRN PRN Reason: anxiety/restlessness Last Admin: 05/27/23 19:52 Dose: 25 mg Quetiapine Fumarate (Quetiapine Fumarate 25 Mg Tablet) 25 mg PO BEDTIME [facility] Last Admin: 05/31/23 20:24 Dose: 25 mg Thiamine HCl (Thiamine Hcl 100 Mg Tablet) 100 mg PO BID [facility] Last Admin: 05/31/23 20:24 Dose: 100 mg Vortioxetine (Vortioxetine Hydrobromide 20 Mg Tablet) 20 mg PO DAILY [facility] Last Admin: 05/31/23 08:42 Dose: 20 mg Allergies Allergies Allergy/AdvReac Type Severity Reaction Status Date / Time risperidone [From Risperdal] Allergy Intermediate UNKNOWN Verified 05/12/23 13:13 Sulfa (Sulfonamide Allergy Intermediate rash Verified 05/12/23 13:13 Antibiotics) From BENADRYL Allergy Intermediate DIZZY Uncoded 02/14/23 11:47 Assessment & Plan Assessment & Plan (1) Major depressive disorder, recurrent severe without psychotic features: Status: Acute Code(s): F33.2 - Major depressive disorder, recurrent severe without psychotic features (2) POONAM (generalized anxiety disorder): Status: Acute Code(s): F41.1 - Generalized anxiety disorder Plan 05/27/2023 Increase captyla 42 mg monitor for agitation and tolerance Seroquel 25 mg at bedtime 05/28/23 cont plan of care 05/29/23 Cont plan of care ? pulm consult hypoxia at hs ? 05/30/2023 Change captyla to evening 05/31/2023 Will get medical clearance for ECT Patient educated on: medication risk/benefits and ECT Informed Consent: understands Reason for continued inpatient stay Substantial Risk for: harm to self Time Spent With Patient Time: Total time managing care of this patient today ____ minutes.
[2023-06-01 07:34] LABS: MANUAL DIFF FLAG NO
[2023-06-01 07:37] LABS: Basophils Absolute Auto 0.1 X10*3/uL (0.0-0.2); Basophils Percent Auto 0.8 % (0-2); Eosinophils Absolute Auto 0.1 X10*3/uL (0.0-0.4); Eosinophils Percent Auto 1.7 % (0-4); Hematocrit 45.3 % (37.0-47.0); Hemoglobin 14.9 g/dl (12.0-16.0); Imm Gran Abs Auto 0.02 X10*3/uL (0.00-0.03); Imm Gran Pct Auto 0.3 % (0.0-0.4); Lymphocytes Absolute Auto 1.5 X10*3/uL (1.2-4.9); Lymphocytes Percent Auto 24.2 % (20-40); Mean Corpuscular HGB Conc 32.9 g/dl (31.0-35.0); Mean Corpuscular Hemoglobin 29.9 pg (27.0-33.0); Mean Platelet Volume 10.6 fL (9.4-12.3); Monocytes Absolute Auto 0.4 X10*3/uL (0.1-1.2); Monocytes Percent Auto 7.3 % (2-11); Neutrophils Percent Auto 65.7 % (45-73); Platelet Count 226 X10*3/uL (160-400); Red Blood Count 4.98 X10*6/uL (4.20-5.50)
[2023-06-01 07:53] LABS: Alanine Aminotransferase 20 U/L (0-31); Albumin Level 3.7 g/dL (3.5-5.0); Alkaline Phosphatase 68 U/L (39-117); Anion Gap 13 (12-20); Aspartate Amino Transferase 18 U/L (5-31); Bilirubin Total 0.3 mg/dL (0.0-1.0); Blood Urea Nitrogen 21 mg/dL (9-16); Calcium 9.8 mg/dL (8.4-10.2); Carbon Dioxide 27 mmol/L (22-29); Chloride 106 mmol/L (96-108); Creatinine Clr Calc Pharmacy 50.5; Estimated Glomerular Filt Rate > 60; Glucose Random 107 mg/dL (60-115); Potassium 4.3 mmol/L (3.3-5.1); Sodium 142 mmol/L (135-145); Total Protein 7.2 g/dL (6.5-8.0)
[2023-06-01] MEDS: Folic Acid 1 MG TABLET PO (08:22)
[2023-06-01] MEDS: Thiamine HCL 100 MG TABLET PO (08:23)
[2023-06-01] MEDS: Vortioxetine Hydrobromide 20 MG TABLET PO (08:23)
[2023-06-01] MEDS: Memantine HCl 10 MG TABLET PO (08:23)
[2023-06-01 08:35] VITALS: BP 128/74; PULSE 94; RESP 18; TEMP 36.6; O2SAT 93
--- NOTE | 2023-06-01 21:08 | PC.NURSE ---
AT 2104 RN ATTEMPTED TO GIVE PT HER 2100 SCHEDULED MEDICATIONS. PT WOULD NOT LOOK AT RN OR ANSWER QUESTIONS. RN ASKED THE PT IF SHE WOULD ACCEPT HER MEDS AND PT SHOOK HER HEAD NO. RN REASSURED PT TO COME SEE HER IF SHE DECIDES SHE WOULD LIKE TO TAKE THEM.
--- NOTE | 2023-06-01 22:44 | P.PNPSI_ITS ---
Subjective Subjective Date of Service: 06/01/23 Reason For Visit: Severe Depression Agitation Subjective Notes: Conditional Voluntary Interim History: Patient remains quite depressed and withdrawn hopeless helpless flat Mental Status Exam Mental Status Exam Patient Appearance: Appropriate Patient Orientation: Person, Place, Time and Situation Level of Consciousness: Awake Patient Behavior: Appropriate Mood Description: Withdrawn, Depressed, Blunted, Flat and Apprehensive Affect Description: Appropriate, Constricted and Apprehensive Patient Cognition Impaired: Yes Ability to Follow Directions: Good Speech Pattern: Clear Memory Description: Recent Impaired and Working Impaired Hallucinations: None Delusions: Not Present Thought Process: Intact and Goal Oriented Thought Content: positive for Racing, positive for Obsessional Thoughts, positive for Goal Oriented, positive for Perseveration, positive for Preoccupation, negative for Suicidal Ideation or negative for Homicidal Ideation Depressive Symptoms: Increased Anxiety, Increased Irritability, Hopelessness, Increased Fatigue, Loss of Energy and Difficulty Concentrating Abnormal Motor Activity Signs and Symptoms: Restlessness Judgement: Fair Judgement and Insight: Racing thoughts difficulty concentrating hopeless helpless Diagnostics Vital Signs (24Hr): Vital Signs - 24 hr 06/01/23 08:35 Temperature 97.8 F Pulse Rate 94 Respiratory Rate 18 Blood Pressure 128/74 Pulse Oximetry 93 Oxygen Delivery Method Room Air BMI result Body Mass Index 30.7 Labs 06/01/23 07:23 06/01/23 07:23 Labs: Laboratory Results - last 48 hr 06/01/23 07:23 WBC 6.0 RBC 4.98 Hgb 14.9 Hct 45.3 MCV 91.0 MCH 29.9 MCHC 32.9 RDW 15.0 Plt Count 226 MPV 10.6 Immature Gran % (Auto) 0.3 Neut % (Auto) 65.7 Lymph % (Auto) 24.2 Harney % (Auto) 7.3 Eos % (Auto) 1.7 Baso % (Auto) 0.8 Lymph # (Auto) 1.5 [place]ney # (Auto) 0.4 Eos # (Auto) 0.1 Baso # (Auto) 0.1 Abs Immat Gran (auto) 0.02 Absolute Neuts (auto) 4.0 Absolute Nucleated RBC 0.000 Nucleated RBC % (auto) 0.0 Sodium 142 Potassium 4.3 Chloride 106 Carbon Dioxide 27 Anion Gap 13 BUN 21 H Creatinine 0.90 Estim Creat Clear Calc 50.5 Estimated GFR > 60 Random Glucose 107 Calcium 9.8 Total Bilirubin 0.3 AST 18 ALT 20 Alkaline Phosphatase 68 Total Protein 7.2 Albumin 3.7 Medications Medications Current Medications Acetaminophen (Acetaminophen 325 Mg Tablet) 650 mg PO Q6H PRN PRN Reason: Headache/Pain Mild Scale (1-3) Al Hydroxide/Mg Hydroxide (Magnesium Hydrox/Alum Hydrox 30 Ml Oral.Susp) 30 ml PO Q6H PRN PRN Reason: Heartburn/Nausea Donepezil HCl (Donepezil Hcl 5 Mg Tablet) 5 mg PO BEDTIME [facility] Last Admin: 06/01/23 21:07 Dose: Not Given Doxepin HCl (Doxepin Hcl 25 Mg Capsule) 100 mg PO BEDTIME [facility] Last Admin: 06/01/23 21:07 Dose: Not Given Folic Acid (Folic Acid 1 Mg Tablet) 1 mg PO DAILY [facility] Last Admin: 06/01/23 08:22 Dose: 1 mg Magnesium Hydroxide (Milk Of Magnesia 30 Ml Oral.Susp) 30 ml PO DAILY PRN PRN Reason: Constipation Memantine (Memantine Hcl 10 Mg Tablet) 10 mg PO BID [facility] Last Admin: 06/01/23 21:07 Dose: Not Given Pt Own (Lumateperone (42 Mg)) 42 mg PO DAILY@1700 [facility] Last Admin: 06/01/23 18:02 Dose: Not Given Quetiapine Fumarate (Quetiapine Fumarate 25 Mg Tablet) 25 mg PO Q4H PRN PRN Reason: anxiety/restlessness Last Admin: 05/27/23 19:52 Dose: 25 mg Quetiapine Fumarate (Quetiapine Fumarate 25 Mg Tablet) 25 mg PO BEDTIME [facility] Last Admin: 06/01/23 21:08 Dose: Not Given Thiamine HCl (Thiamine Hcl 100 Mg Tablet) 100 mg PO BID [facility] Last Admin: 06/01/23 21:08 Dose: Not Given Vortioxetine (Vortioxetine Hydrobromide 20 Mg Tablet) 20 mg PO DAILY [facility] Last Admin: 06/01/23 08:23 Dose: 20 mg Allergies Allergies Allergy/AdvReac Type Severity Reaction Status Date / Time risperidone [From Risperdal] Allergy Intermediate UNKNOWN Verified 05/12/23 13:13 Sulfa (Sulfonamide Allergy Intermediate rash Verified 05/12/23 13:13 Antibiotics) From BENADRYL Allergy Intermediate DIZZY Uncoded 02/14/23 11:47 Assessment & Plan Assessment & Plan (1) Preoperative examination: Status: Acute Code(s): Z01.818 - Encounter for other preprocedural examination (2) Major depressive disorder, recurrent severe without psychotic features: Status: Acute Code(s): F33.2 - Major depressive disorder, recurrent severe without psychotic features Plan Patient is a 72-year-old female with a PMH significant for MDD and POONAM who was seen for ECT clearance. The patient has undergone ECT in the past without incident, says it proved beneficial. Patient has no acute medical complaints at this time. Mood disorder Plan as per Psychiatry ECT clearance Repeat EKG still pending Otherwise, no obvious medical contraindications to preclude patient from undergoing ECT clearance Thank you for allowing us to participate in the care of this patient. Signing off at this time. Please re-consult if any acute complaints or issues arise. 06/01/2023aplyta Change to 17:00 in case causing daytime lethargy. Patient depressed despondent hopeless helpless asking for ECT risks benefits reviewed with patient including possibility of confusion which she has had previously. Pulmonary consult for question of hypoxia at night might benefit oxygen during sleep Reason for continued inpatient stay Substantial Risk for: harm to self and rapid decompensation Time Spent With Patient Time: Total time managing care of this patient today ____ minutes.
[2023-06-02] MEDS: QUEtiapine Fumarate 25 MG TABLET PO ×3 (03:47→20:45)
[2023-06-02] MEDS: Donepezil HCl 5 MG TABLET PO (03:49)
[2023-06-02 09:10] VITALS: BP 142/70; PULSE 88; RESP 18; TEMP 36.8; O2SAT 97
[2023-06-02] MEDS: Acetaminophen 325 MG TABLET 650 MG PO (10:08)
[2023-06-02] MEDS: Folic Acid 1 MG TABLET PO (10:08)
[2023-06-02] MEDS: Vortioxetine Hydrobromide 20 MG TABLET PO (10:08)
[2023-06-02] MEDS: Memantine HCl 10 MG TABLET PO ×2 (10:08→20:45)
[2023-06-02] MEDS: Thiamine HCL 100 MG TABLET PO ×2 (10:08→20:45)
--- NOTE | 2023-06-02 12:29 | P.CONPL_ITS ---
History of Present Illness History of Present Illness Consult date: 06/02/23 Chief complaint: Severe Depression Agitation Narrative: This is an inpatient pulmonary consultation. The Patient is a 72-year-old female with a PMH significant for MDD. Patient states she previously underwent ECT in 2018, and she felt like it helped her quite a bit. Denies any side effects. No reported problems with anesthesia. Patient also denies a PMH of cerebral hemorrhage or stroke, CAD, space-occupying intracranial lesion, bleeding disorder, or unstable vascular aneurysm. No history of seizure disorders, TBI, or severe pulmonary condition. EKG from 05/25/2023 showed normal sinus rhythm with QTc 418 and without evidence of significant ST elevations or depressions or significant ischemic changes. Currently patient says she feels physically ?healthy?. Denies chest pain/pressure, palpitations. No shortness of breath. Denies fever, chills, nausea, vomiting, abdominal pain. No headache or acute vision changes. During the hospitalization the patient did undergo a the sleep study where her AHI was up to 3.1 and she was noted to be hypoxic down to 87% and she spent 40 minutes below 88%. In addition to that the heart rate have been elevated. Indeed the patient may have some underlying untreated sleep apnea. Likely, that the home sleep study was not adequate enough to make a diagnosis. I did talk to the patient about the findings. I did recommend she start oxygen. Although she is reluctant at this time. Ultimately when she does needs to have a formal in-lab sleep study when she is discharged. Review of Systems 2 Constitutional: Constitutional: Reports daytime sleepiness, Reports difficulty sleeping and Denies headache(s) Eyes: Eyes: Denies diplopia ENT: Denies headache(s) Cardiovascular: Cardiovascular: Denies chest pain Respiratory: Respiratory: Denies cough and Denies wheezing Gastrointestinal: Gastrointestinal: Reports no additional gastrointestinal complaints Musculoskeletal: Musculoskeletal: Reports no additional musculoskeletal complaints Neurologic: Denies headache(s) Psychiatric: Psychiatric: Reports as per HPI and Reports depression Hematologic/Lymphatic: Hematologic/Lymphatic: Denies easy bruising Allergic/Immunologic: Allergic/Immunologic: Denies wheezing PMFSH Past Medical History Medical History (Updated 06/02/23 @ 12:38 by Dao Melissa MD) Has daytime drowsiness Nocturnal hypoxia Preoperative examination Elevated glucose Screening for colon cancer Screening for diabetes mellitus Obesity (BMI 30-39.9) Confused but orients easily Depression, major, severe recurrence Abnormal serum protein electrophoresis Mild recurrent major depression Anxiety and depression Encounter for Medicare annual wellness exam Removal of [place] Depression with anxiety Abdominal distention Weight gain Major depression, recurrent, full remission POONAM (generalized anxiety disorder) Hypothyroidism Hyperparathyroidism Multinodular thyroid Vitamin D deficiency Osteoporosis Family History Family History Father Myocardial infarction CVD (cardiovascular disease) Mother Dementia Alzheimer disease Other Mental health disorder Surgical History Surgical History Hx of colonoscopy Hx of kyphoplasty Hx of section Social History Social History Household Members: Spouse Housing: Apartment Do you presently have visiting nurse or other home services: No Alcohol intake: never Patient Tobacco Use Status: Never used Tobacco Smoked in Last 30 Days: No e-Cigarette/Vaping Use: Never Used Second Hand Smoke Exposure: No Use of substances other than those prescribed or required for medical reasons: No Currently Displaying Signs/Symptoms of Drug Intoxication Withdrawal: No Have you been hit, kicked, punched, or otherwise hurt by someone within the past year? If so, by whom?: No Do you feel safe in your current relationship?: Yes Is there a partner from a previous relationship who is making you feel unsafe now?: No Are you made to feel afraid or neglected: No Spiritual Healthcare Practices: I believe in God Congregation Healthcare Practices: I believe in God Advance Directives: No Advance Directives Information Provided: No Healthcare Proxy: Yes Guardian: No Do you have thoughts of harming others: None Do you have a plan to hurt others: No Plan Recently lost weight without trying: No How much weight loss: Not applicable Eating poorly because of decreased appetite: No Nutrition screen score: 0 Nutrition Risks: No Nutritional Risk Patient : No : No Poor oral hygiene: No service: No Current occupational status: unemployed Sexual orientation: Straight/Heterosexual Cognitive needs: No Hearing needs: No Meds Allergies Allergy/AdvReac Type Severity Reaction Status Date / Time risperidone [From Risperdal] Allergy Intermediate UNKNOWN Verified 05/12/23 13:13 Sulfa (Sulfonamide Allergy Intermediate rash Verified 05/12/23 13:13 Antibiotics) From BENADRYL Allergy Intermediate DIZZY Uncoded 02/14/23 11:47 Active Medications: Current Medications Acetaminophen (Acetaminophen 325 Mg Tablet) 650 mg PO Q6H PRN PRN Reason: Headache/Pain Mild Scale (1-3) Last Admin: 06/02/23 10:08 Dose: 650 mg Al Hydroxide/Mg Hydroxide (Magnesium Hydrox/Alum Hydrox 30 Ml Oral.Susp) 30 ml PO Q6H PRN PRN Reason: Heartburn/Nausea Donepezil HCl (Donepezil Hcl 5 Mg Tablet) 5 mg PO BEDTIME [facility] Last Admin: 06/02/23 03:49 Dose: 5 mg Doxepin HCl (Doxepin Hcl 25 Mg Capsule) 100 mg PO BEDTIME [facility] Last Admin: 06/01/23 21:07 Dose: Not Given Folic Acid (Folic Acid 1 Mg Tablet) 1 mg PO DAILY [facility] Last Admin: 06/02/23 10:08 Dose: 1 mg Magnesium Hydroxide (Milk Of Magnesia 30 Ml Oral.Susp) 30 ml PO DAILY PRN PRN Reason: Constipation Memantine (Memantine Hcl 10 Mg Tablet) 10 mg PO BID [facility] Last Admin: 06/02/23 10:08 Dose: 10 mg Pt Own (Lumateperone (42 Mg)) 42 mg PO DAILY@1700 [facility] Last Admin: 06/01/23 18:02 Dose: Not Given Quetiapine Fumarate (Quetiapine Fumarate 25 Mg Tablet) 25 mg PO Q4H PRN PRN Reason: anxiety/restlessness Last Admin: 05/27/23 19:52 Dose: 25 mg Quetiapine Fumarate (Quetiapine Fumarate 25 Mg Tablet) 25 mg PO BEDTIME [facility] Last Admin: 06/02/23 03:47 Dose: 25 mg Thiamine HCl (Thiamine Hcl 100 Mg Tablet) 100 mg PO BID [facility] Last Admin: 06/02/23 10:08 Dose: 100 mg Vortioxetine (Vortioxetine Hydrobromide 20 Mg Tablet) 20 mg PO DAILY [facility] Last Admin: 06/02/23 10:08 Dose: 20 mg Home Medications Medication Instructions Recorded Confirmed Last Taken Type lorazepam 0.5 mg tablet 0.25 - 0.5 mg PO TID PRN ANIXETY 05/21/23 05/21/23 Unknown History Physical Exam 2 Vital Signs: Vital Signs: Last Vital Signs Temp 98.3 F 06/02/23 09:10 Pulse 88 06/02/23 09:10 Resp 18 06/02/23 09:10 BP 142/70 H 06/02/23 09:10 Pulse Ox 97 06/02/23 09:10 O2 Del Method Room Air 06/02/23 09:10 BMI result Body Mass Index 30.7 Const: General: cooperative and comfortable HEENT: Head: Yes atraumatic Neck: Neck: Yes supple Chest: Chest palpation & inspection: normal inspection of the chest Resp: Effort & Inspection: normal respiratory effort and able to speak in complete sentences Skin: General skin exam: no rashes or lesions noted Extrem: General: Yes no clubbing, cyanosis or edema Results Laboratory Findings 06/01/23 07:23 06/01/23 07:23 Abnormal lab findings: Abnormal Labs 05/21/23 05/21/23 05/26/23 15:59 17:09 07:44 Neut % (Auto) 78.6 H Lymph % (Auto) 14.4 L Lymph # (Auto) 1.1 L BUN 19 H 18 H Random Glucose 116 H Calcium 10.6 H D Cholesterol 203 H LDL Cholesterol, Calc 131 H Ur Leukocyte Esterase Moderate (2+) H Urine WBC 21-50 H Salicylates < 5.0 L 06/01/23 07:23 Neut % (Auto) Lymph % (Auto) Lymph # (Auto) BUN 21 H Random Glucose Calcium Cholesterol LDL Cholesterol, Calc Ur Leukocyte Esterase Urine WBC Salicylates Microbiology: Microbiology 05/21/23 Unknown Urine clean catch - Urine [place] top Urine Culture - Final Assessment and Plan (1) Nocturnal hypoxia: Status: Acute (2) Has daytime drowsiness: Status: Acute (3) Insomnia: Qualifiers: Insomnia type: unspecified Qualified Code(s): G47.00 - Insomnia, unspecified Status: Acute Plan The patient does have significant nocturnal hypoxia based on her simplified sleep study. She will benefit from using supplemental oxygen at nighttime at 2 L/minute. Although, the patient is reluctant at this time. I will encourage her to could reconsider. The patient needs to undergo an in-lab sleep study once she is able to do so on outpatient basis. The patient should be set up with outpatient Pulmonary in order to make the arrangements for her to have the in-lab sleep study. Procedures Date of Service Date of Service: 06/02/23
[2023-06-02] MEDS: LORazepam 1 MG TABLET PO (13:09)
--- NOTE | 2023-06-02 17:38 | P.PNPSI_ITS ---
Subjective Subjective Date of Service: 06/02/23 Reason For Visit: Severe Depression Agitation Subjective Notes: Conditional Voluntary Guardianship: No Interim History: The patient depressed anxious ruminating. Call placed to her patient keeps advocating for ECT which she did have last in 2019. [place] light will be lowered to 21 mg doxepin lower to 50 mg low-dose Ativan for anxiety attack no medical contraindication noted Mental Status Exam Mental Status Exam Patient Appearance: Appropriate Patient Orientation: Person, Place, Time and Situation Level of Consciousness: Awake and Restless Patient Behavior: Appropriate Mood Description: Withdrawn, Depressed, Anxious, Blunted, Flat and Apprehensive Affect Description: Appropriate, Constricted, Labile and Apprehensive Patient Cognition Impaired: Yes Ability to Follow Directions: Good Speech Pattern: Clear Memory Description: Recent Impaired and Working Impaired Hallucinations: None Delusions: Not Present Thought Process: Intact and Goal Oriented Thought Content: positive for Racing, positive for Obsessional Thoughts, positive for Goal Oriented, positive for Perseveration, positive for Preoccupation, negative for Suicidal Ideation or negative for Homicidal Ideation Depressive Symptoms: Increased Anxiety, Increased Irritability, Hopelessness, Increased Fatigue, Loss of Energy and Difficulty Concentrating Abnormal Motor Activity Signs and Symptoms: Psychomotor Retardation and Restlessness Judgement: Fair Judgement and Insight: Racing thoughts difficulty concentrating hopeless helpless he preoccupation related she might be dying fearful needs reassurance Diagnostics Vital Signs (24Hr): Vital Signs - 24 hr 06/02/23 09:10 Temperature 98.3 F Pulse Rate 88 Respiratory Rate 18 Blood Pressure 142/70 H Pulse Oximetry 97 Oxygen Delivery Method Room Air BMI result Body Mass Index 30.7 Labs 06/01/23 07:23 06/01/23 07:23 Labs: Laboratory Results - last 48 hr 06/01/23 07:23 WBC 6.0 RBC 4.98 Hgb 14.9 Hct 45.3 MCV 91.0 MCH 29.9 MCHC 32.9 RDW 15.0 Plt Count 226 MPV 10.6 Immature Gran % (Auto) 0.3 Neut % (Auto) 65.7 Lymph % (Auto) 24.2 [place] % (Auto) 7.3 Eos % (Auto) 1.7 Baso % (Auto) 0.8 Lymph # (Auto) 1.5 [place] # (Auto) 0.4 Eos # (Auto) 0.1 Baso # (Auto) 0.1 Abs Immat Gran (auto) 0.02 Absolute Neuts (auto) 4.0 Absolute Nucleated RBC 0.000 Nucleated RBC % (auto) 0.0 Sodium 142 Potassium 4.3 Chloride 106 Carbon Dioxide 27 Anion Gap 13 BUN 21 H Creatinine 0.90 Estim Creat Clear Calc 50.5 Estimated GFR > 60 Random Glucose 107 Calcium 9.8 Total Bilirubin 0.3 AST 18 ALT 20 Alkaline Phosphatase 68 Total Protein 7.2 Albumin 3.7 Medications Medications Current Medications Acetaminophen (Acetaminophen 325 Mg Tablet) 650 mg PO Q6H PRN PRN Reason: Headache/Pain Mild Scale (1-3) Last Admin: 06/02/23 10:08 Dose: 650 mg Al Hydroxide/Mg Hydroxide (Magnesium Hydrox/Alum Hydrox 30 Ml Oral.Susp) 30 ml PO Q6H PRN PRN Reason: Heartburn/Nausea Donepezil HCl (Donepezil Hcl 5 Mg Tablet) 5 mg PO BEDTIME [facility] Last Admin: 06/02/23 03:49 Dose: 5 mg Doxepin HCl (Doxepin Hcl 25 Mg Capsule) 100 mg PO BEDTIME [facility] Last Admin: 06/01/23 21:07 Dose: Not Given Folic Acid (Folic Acid 1 Mg Tablet) 1 mg PO DAILY [facility] Last Admin: 06/02/23 10:08 Dose: 1 mg Magnesium Hydroxide (Milk Of Magnesia 30 Ml Oral.Susp) 30 ml PO DAILY PRN PRN Reason: Constipation Memantine (Memantine Hcl 10 Mg Tablet) 10 mg PO BID [facility] Last Admin: 06/02/23 10:08 Dose: 10 mg Pt Own (Lumateperone (42 Mg)) 42 mg PO DAILY@1700 [facility] Last Admin: 06/02/23 16:18 Dose: 42 mg Quetiapine Fumarate (Quetiapine Fumarate 25 Mg Tablet) 25 mg PO Q4H PRN PRN Reason: anxiety/restlessness Last Admin: 06/02/23 12:53 Dose: 25 mg Quetiapine Fumarate (Quetiapine Fumarate 25 Mg Tablet) 25 mg PO BEDTIME [facility] Last Admin: 06/02/23 03:47 Dose: 25 mg Thiamine HCl (Thiamine Hcl 100 Mg Tablet) 100 mg PO BID [facility] Last Admin: 06/02/23 10:08 Dose: 100 mg Vortioxetine (Vortioxetine Hydrobromide 20 Mg Tablet) 20 mg PO DAILY [facility] Last Admin: 06/02/23 10:08 Dose: 20 mg Allergies Allergies Allergy/AdvReac Type Severity Reaction Status Date / Time risperidone [From Risperdal] Allergy Intermediate UNKNOWN Verified 05/12/23 13:13 Sulfa (Sulfonamide Allergy Intermediate rash Verified 05/12/23 13:13 Antibiotics) From BENADRYL Allergy Intermediate DIZZY Uncoded 02/14/23 11:47 Assessment & Plan Assessment & Plan (1) Nocturnal hypoxia: Status: Acute Code(s): G47.34 - Idiopathic sleep related nonobstructive alveolar hypoventilation (2) Has daytime drowsiness: Status: Acute Code(s): R40.0 - Somnolence (3) Insomnia: Qualifiers: Insomnia type: unspecified Qualified Code(s): G47.00 - Insomnia, unspecified Status: Acute Code(s): G47.00 - Insomnia, unspecified Plan The patient does have significant nocturnal hypoxia based on her simplified sleep study. She will benefit from using supplemental oxygen at nighttime at 2 L/minute. Although, the patient is reluctant at this time. I will encourage her to could reconsider. The patient needs to undergo an in-lab sleep study once she is able to do so on outpatient basis. The patient should be set up with outpatient Pulmonary in order to make the arrangements for her to have the in-lab sleep study. Review historical treat from the past May have slipped it in a more in study pulmonary consult Reason for continued inpatient stay Substantial Risk for: rapid decompensation Time Spent With Patient Time: Total time managing care of this patient today ____ minutes.
[2023-06-02 18:15] VITALS: BP 123/86; PULSE 93; RESP 16; TEMP 36.6; O2SAT 97
[2023-06-02] MEDS: Doxepin HCl 25 MG CAPSULE 50 MG PO (20:46)
[2023-06-03] VITALS (8 sets, daily range): BP systolic 119–175; BP diastolic 57–90; PULSE 61–110; RESP 16–20; TEMP 36.1–36.7; O2SAT 94–98
--- NOTE | 2023-06-03 07:54 | HO.PSYCHPN ---
Subjective Subjective Date of Service: 06/03/23 Reason For Visit: Severe Depression Agitation Subjective Notes: Conditional Voluntary Interim History: The patient continues to be quite depressed 1st ECT completed case reviewed with Dr. Melissa recommended nighttime oxygen Medication Compliance: Yes Mental Status Exam Mental Status Exam Patient Appearance: Appropriate Patient Orientation: Person, Place, Time and Situation Level of Consciousness: Awake and Restless Patient Behavior: Appropriate Mood Description: Withdrawn, Depressed, Anxious, Blunted, Flat and Apprehensive Affect Description: Appropriate, Constricted, Labile and Apprehensive Patient Cognition Impaired: Yes Ability to Follow Directions: Good Speech Pattern: Clear Memory Description: Recent Impaired and Working Impaired Hallucinations: None Delusions: Not Present Thought Process: Intact and Goal Oriented Thought Content: positive for Racing, positive for Obsessional Thoughts, positive for Goal Oriented, positive for Perseveration, positive for Preoccupation, negative for Suicidal Ideation or negative for Homicidal Ideation Depressive Symptoms: Increased Anxiety, Increased Irritability, Hopelessness, Increased Fatigue, Loss of Energy and Difficulty Concentrating Abnormal Motor Activity Signs and Symptoms: Psychomotor Retardation and Restlessness Judgement: Fair Judgement and Insight: Racing thoughts difficulty concentrating hopeless helpless he preoccupation related she might be dying fearful needs reassurance Diagnostics Vital Signs (24Hr): Vital Signs - 24 hr 06/02/23 09:10 06/02/23 18:15 06/03/23 06:23 Temperature 98.3 F 97.8 F 97.9 F Pulse Rate 88 93 102 H Respiratory Rate 18 16 20 Blood Pressure 142/70 H 123/86 135/73 Pulse Oximetry 97 97 94 Oxygen Delivery Method Room Air Room Air 06/03/23 06:52 Temperature 97 F Pulse Rate 81 Respiratory Rate 16 Blood Pressure 130/77 Pulse Oximetry 96 Oxygen Delivery Method Room Air BMI result Body Mass Index 30.7 Labs 06/01/23 07:23 06/01/23 07:23 Medications Medications Current Medications Acetaminophen (Acetaminophen 325 Mg Tablet) 650 mg PO Q6H PRN PRN Reason: Headache/Pain Mild Scale (1-3) Last Admin: 06/02/23 10:08 Dose: 650 mg Al Hydroxide/Mg Hydroxide (Magnesium Hydrox/Alum Hydrox 30 Ml Oral.Susp) 30 ml PO Q6H PRN PRN Reason: Heartburn/Nausea Donepezil HCl (Donepezil Hcl 5 Mg Tablet) 5 mg PO BEDTIME [facility] Last Admin: 06/02/23 20:45 Dose: 5 mg Doxepin HCl (Doxepin Hcl 25 Mg Capsule) 50 mg PO BEDTIME [facility] Last Admin: 06/02/23 20:46 Dose: 50 mg Folic Acid (Folic Acid 1 Mg Tablet) 1 mg PO DAILY [facility] Last Admin: 06/02/23 10:08 Dose: 1 mg Lorazepam (Lorazepam 0.5 Mg Tablet) 0.5 mg PO Q4H PRN PRN Reason: Anxiety Magnesium Hydroxide (Milk Of Magnesia 30 Ml Oral.Susp) 30 ml PO DAILY PRN PRN Reason: Constipation Memantine (Memantine Hcl 10 Mg Tablet) 10 mg PO BID [facility] Last Admin: 06/02/23 20:45 Dose: 10 mg Pt Own (Lumateperone (21 Mg)) 21 mg PO DAILY@1700 [facility] Quetiapine Fumarate (Quetiapine Fumarate 25 Mg Tablet) 25 mg PO Q4H PRN PRN Reason: anxiety/restlessness Last Admin: 06/02/23 12:53 Dose: 25 mg Quetiapine Fumarate (Quetiapine Fumarate 25 Mg Tablet) 25 mg PO BEDTIME [facility] Last Admin: 06/02/23 20:45 Dose: 25 mg Thiamine HCl (Thiamine Hcl 100 Mg Tablet) 100 mg PO BID [facility] Last Admin: 06/02/23 20:45 Dose: 100 mg Vortioxetine (Vortioxetine Hydrobromide 20 Mg Tablet) 20 mg PO DAILY [facility] Last Admin: 06/02/23 10:08 Dose: 20 mg Allergies Allergies Allergy/AdvReac Type Severity Reaction Status Date / Time risperidone [From Risperdal] Allergy Intermediate UNKNOWN Verified 05/12/23 13:13 Sulfa (Sulfonamide Allergy Intermediate rash Verified 05/12/23 13:13 Antibiotics) From BENADRYL Allergy Intermediate DIZZY Uncoded 02/14/23 11:47 Assessment & Plan Assessment & Plan (1) Nocturnal hypoxia: Status: Acute Code(s): G47.34 - Idiopathic sleep related nonobstructive alveolar hypoventilation (2) Has daytime drowsiness: Status: Acute Code(s): R40.0 - Somnolence (3) Insomnia: Qualifiers: Insomnia type: unspecified Qualified Code(s): G47.00 - Insomnia, unspecified Status: Acute Code(s): G47.00 - Insomnia, unspecified Plan The patient does have significant nocturnal hypoxia based on her simplified sleep study. She will benefit from using supplemental oxygen at nighttime at 2 L/minute. Although, the patient is reluctant at this time. I will encourage her to could reconsider. The patient needs to undergo an in-lab sleep study once she is able to do so on outpatient basis. The patient should be set up with outpatient Pulmonary in order to make the arrangements for her to have the in-lab sleep study. Review historical treat from the past May have slipped it in a more in study pulmonary consult 06/03/2023 1st right unilateral treatment completed monitor response cognition Reason for continued inpatient stay Substantial Risk for: harm to self, inability to function and rapid decompensation Time Spent With Patient Time: Total time managing care of this patient today ____ minutes.
--- NOTE | 2023-06-03 09:18 | MHC.SHP ---
Pre-Procedural Eval Section A Date of Service: 06/03/23 The patient is an INPATIENT: Yes Changes since office visit: Yes Changes in Medication; No Cold of Flu in the past 2 weeks and No New Medical Problems The History & Physical has been completed within 30 days and I have reviewed it.: Yes Section B Chief Complaint: Severe Depression Agitation Allergies: Allergies Allergy/AdvReac Type Severity Reaction Status Date / Time risperidone [From Risperdal] Allergy Intermediate UNKNOWN Verified 05/12/23 13:13 Sulfa (Sulfonamide Allergy Intermediate rash Verified 05/12/23 13:13 Antibiotics) From BENADRYL Allergy Intermediate DIZZY Uncoded 02/14/23 11:47 Plan I have reviewed the history and physical and performed a pertinent physical examination on my patient. No changes have occurred unless specified. Time Spent With Patient Time: Total time managing care of this patient today ____ minutes.
[2023-06-03] MEDS: Memantine HCl 10 MG TABLET PO ×2 (10:17→20:17)
[2023-06-03] MEDS: Vortioxetine Hydrobromide 20 MG TABLET PO (10:17)
[2023-06-03] MEDS: Folic Acid 1 MG TABLET PO (10:17)
[2023-06-03] MEDS: Thiamine HCL 100 MG TABLET PO ×2 (10:18→20:16)
--- NOTE | 2023-06-03 14:08 | HO.ECTPROC ---
ECT Procedure Note Diagnosis/Treatment Date of Service: 06/03/23 Diagnosis: Major Depressive Disorder Current Treatment Number: 1 Treatment: Series Interval Clinical Notes: Patient remains severely depressed and withdrawn able to give informed consent ECT has had this previously records reviewed with anesthesia Time: Total time managing care of this patient today ____ minutes. ECT Settings Device: THYMATRON DGx Electrode Placement: Right Unilateral Program/Pulse Width: 0.25 Energy Percent: 50 Seizure Duration By EEG (in seconds): 73 Medications Administration General Anesthetic: Etomidate (10) Muscle Relaxant: Succinylcholine (80) Ancillary Medications Miscillaneous Medications: Propofol Airway Management Airway Management: Bag Mask Ventilation Treatment Recommendations Energy Percent: 40 Notes: Patient has had esmolol in past did not need this time Pt Tolerated Procedure w/o Issue: Yes
--- NOTE | 2023-06-03 17:51 | PC.NURSE ---
ordered O2 2l nasal cannula overnight.
[2023-06-03] MEDS: Doxepin HCl 25 MG CAPSULE 50 MG PO (20:15)
[2023-06-03] MEDS: QUEtiapine Fumarate 25 MG TABLET PO (20:16)
[2023-06-03] MEDS: Donepezil HCl 5 MG TABLET PO (20:24)
[2023-06-04 07:00] VITALS: BMI 30.3
--- NOTE | 2023-06-04 07:03 | PC.NURSE ---
pt refused o2 sat on overnight
[2023-06-04 08:30] VITALS: BP 124/57; PULSE 84; RESP 18; TEMP 36.4; O2SAT 94
[2023-06-04] MEDS: Folic Acid 1 MG TABLET PO (08:56)
[2023-06-04] MEDS: Thiamine HCL 100 MG TABLET PO ×2 (08:57→20:31)
[2023-06-04] MEDS: Vortioxetine Hydrobromide 20 MG TABLET PO (08:57)
[2023-06-04] MEDS: Memantine HCl 10 MG TABLET PO ×2 (08:57→20:26)
--- NOTE | 2023-06-04 11:28 | P.PNPSI_ITS ---
Subjective Subjective Date of Service: 06/04/23 Reason For Visit: Severe Depression Agitation Subjective Notes: Conditional Voluntary Medical Problems Affecting Mental Status: Yes Interim History: THE PATIENT IS A 71-YEAR-OLD FEMALE STATUS POST HER 1ST ECT YESTERDAY THERE WERE NO SIDE EFFECTS NOTED PATIENT REFUSED OVERNIGHT SUPPLEMENTAL OXYGEN which is unfortunate given the fact that she has cognitive impairment which will be worsened by hypoxia when sleeping. See pulmonary note patient did not respond to higher dose of caplyta 42 mg Mental Status Exam Mental Status Exam Patient Appearance: Appropriate Patient Orientation: Person, Place, Time and Situation Level of Consciousness: Awake and Restless Patient Behavior: Appropriate Mood Description: Withdrawn, Depressed, Anxious, Blunted, Flat and Apprehensive Affect Description: Appropriate, Constricted, Labile and Apprehensive Patient Cognition Impaired: Yes Ability to Follow Directions: Good Speech Pattern: Clear Memory Description: Recent Impaired and Working Impaired Hallucinations: None Delusions: Not Present Thought Process: Intact and Goal Oriented Thought Content: positive for Racing, positive for Obsessional Thoughts, positive for Goal Oriented, positive for Perseveration, positive for Preoccupation, negative for Suicidal Ideation or negative for Homicidal Ideation Depressive Symptoms: Increased Anxiety, Increased Irritability, Hopelessness, Increased Fatigue, Loss of Energy and Difficulty Concentrating Abnormal Motor Activity Signs and Symptoms: Psychomotor Retardation and Restlessness Judgement: Fair Judgement and Insight: Racing thoughts difficulty concentrating hopeless helpless he preoccupation related she might be dying fearful needs reassurance Diagnostics Vital Signs (24Hr): Vital Signs - 24 hr 06/03/23 16:20 Temperature 98.0 F Pulse Rate 96 Blood Pressure 160/82 H Pulse Oximetry 96 Oxygen Delivery Method Room Air BMI result Body Mass Index 30.7 Labs 06/01/23 07:23 06/01/23 07:23 Medications Medications Current Medications Acetaminophen (Acetaminophen 325 Mg Tablet) 650 mg PO Q6H PRN PRN Reason: Headache/Pain Mild Scale (1-3) Last Admin: 06/02/23 10:08 Dose: 650 mg Al Hydroxide/Mg Hydroxide (Magnesium Hydrox/Alum Hydrox 30 Ml Oral.Susp) 30 ml PO Q6H PRN PRN Reason: Heartburn/Nausea Donepezil HCl (Donepezil Hcl 5 Mg Tablet) 5 mg PO BEDTIME [facility] Last Admin: 06/03/23 20:24 Dose: 5 mg Doxepin HCl (Doxepin Hcl 25 Mg Capsule) 50 mg PO BEDTIME [facility] Last Admin: 06/03/23 20:15 Dose: 50 mg Folic Acid (Folic Acid 1 Mg Tablet) 1 mg PO DAILY [facility] Last Admin: 06/04/23 08:56 Dose: 1 mg Lorazepam (Lorazepam 0.5 Mg Tablet) 0.5 mg PO Q4H PRN PRN Reason: Anxiety Magnesium Hydroxide (Milk Of Magnesia 30 Ml Oral.Susp) 30 ml PO DAILY PRN PRN Reason: Constipation Memantine (Memantine Hcl 10 Mg Tablet) 10 mg PO BID [facility] Last Admin: 06/04/23 08:57 Dose: 10 mg Pt Own (Lumateperone (21 Mg)) 21 mg PO DAILY@1700 [facility] Last Admin: 06/03/23 19:57 Dose: 21 mg Quetiapine Fumarate (Quetiapine Fumarate 25 Mg Tablet) 25 mg PO Q4H PRN PRN Reason: anxiety/restlessness Last Admin: 06/02/23 12:53 Dose: 25 mg Quetiapine Fumarate (Quetiapine Fumarate 25 Mg Tablet) 25 mg PO BEDTIME [facility] Last Admin: 06/03/23 20:16 Dose: 25 mg Thiamine HCl (Thiamine Hcl 100 Mg Tablet) 100 mg PO BID [facility] Last Admin: 06/04/23 08:57 Dose: 100 mg Vortioxetine (Vortioxetine Hydrobromide 20 Mg Tablet) 20 mg PO DAILY [facility] Last Admin: 06/04/23 08:57 Dose: 20 mg Allergies Allergies Allergy/AdvReac Type Severity Reaction Status Date / Time risperidone [From Risperdal] Allergy Intermediate UNKNOWN Verified 05/12/23 13:13 Sulfa (Sulfonamide Allergy Intermediate rash Verified 05/12/23 13:13 Antibiotics) From BENADRYL Allergy Intermediate DIZZY Uncoded 02/14/23 11:47 Assessment & Plan Assessment & Plan (1) Major depressive disorder, recurrent severe without psychotic features: Status: Acute Code(s): F33.2 - Major depressive disorder, recurrent severe without psychotic features (2) Nocturnal hypoxia: Status: Acute Code(s): G47.34 - Idiopathic sleep related nonobstructive alveolar hypoventilation (3) Has daytime drowsiness: Status: Acute Code(s): R40.0 - Somnolence Plan The patient does have significant nocturnal hypoxia based on her simplified sleep study. She will benefit from using supplemental oxygen at nighttime at 2 L/minute. Although, the patient is reluctant at this time. I will encourage her to could reconsider. The patient needs to undergo an in-lab sleep study once she is able to do so on outpatient basis. The patient should be set up with outpatient Pulmonary in order to make the arrangements for her to have the in-lab sleep study. Review historical treat from the past May have slipped it in a more in study pulmonary consult 06/03/2023 1st right unilateral treatment completed monitor response cognition 06/04/2023 Patient with history of recurrent depression had been stable for a number years on a combination of Trintellix doxepin had done well with the addition of caplyta continue ECT monitor for delirium or worsening confusion may only tolerate 2 times a week Reason for continued inpatient stay Substantial Risk for: harm to self, inability to function and rapid decompensation Time Spent With Patient Time: Total time managing care of this patient today ____ minutes.
[2023-06-04] MEDS: LORazepam 0.5 MG TABLET PO ×2 (12:44→20:25)
[2023-06-04] MEDS: QUEtiapine Fumarate 25 MG TABLET PO ×2 (15:15→20:25)
[2023-06-04 18:00] VITALS: BP 152/65; PULSE 113; RESP 16; TEMP 35.9; O2SAT 94
[2023-06-04] MEDS: Doxepin HCl 25 MG CAPSULE 50 MG PO (20:26)
[2023-06-04] MEDS: Donepezil HCl 5 MG TABLET PO (20:26)
[2023-06-05] MEDS: LORazepam 0.5 MG TABLET PO (07:00)
[2023-06-05] MEDS: QUEtiapine Fumarate 25 MG TABLET PO (07:00)
[2023-06-05 08:45] VITALS: BP 149/85; PULSE 120; RESP 18; TEMP 36.1; O2SAT 97
[2023-06-05] MEDS: Vortioxetine Hydrobromide 20 MG TABLET PO (09:19)
[2023-06-05] MEDS: Memantine HCl 10 MG TABLET PO (09:19)
[2023-06-05] MEDS: Folic Acid 1 MG TABLET PO (09:20)
[2023-06-05] MEDS: Thiamine HCL 100 MG TABLET PO (09:20)
--- NOTE | 2023-06-05 16:22 | P.PNPSI_ITS ---
Subjective Subjective Date of Service: 06/05/23 Reason For Visit: Severe Depression Agitation Interim History: Introduced self to pt in coverage for TA. Hold my hand, I am dying you know. Discussed that she feels depression is overtaking her. Refused ECT today. Encouraged to reconsider on Thursday as this has been an effective treatment in the past and she has improved. We discussed what she has to live for-, family- yes, they are worth it, but this is so hard Side effects from medications: No Attending Groups: No Review of Systems Acute medical concerns: No Review of Systems Review of Systems Yes Unobtainable due to mental status Mental Status Exam Mental Status Exam Patient Appearance: Appropriate Patient Orientation: Person, Place, Time and Situation Level of Consciousness: Awake and Restless Patient Behavior: Appropriate Mood Description: Withdrawn, Depressed, Anxious, Blunted, Flat and Apprehensive Affect Description: Appropriate, Constricted, Labile and Apprehensive Patient Cognition Impaired: Yes Ability to Follow Directions: Good Speech Pattern: Clear Memory Description: Recent Impaired and Working Impaired Hallucinations: None Delusions: Not Present Thought Process: Intact and Goal Oriented Thought Content: positive for Racing, positive for Obsessional Thoughts, positive for Goal Oriented, positive for Perseveration, positive for Preoccupation, negative for Suicidal Ideation or negative for Homicidal Ideation Depressive Symptoms: Increased Anxiety, Increased Irritability, Hopelessness, Increased Fatigue, Loss of Energy and Difficulty Concentrating Abnormal Motor Activity Signs and Symptoms: Psychomotor Retardation and Restlessness Judgement: Fair Judgement and Insight: Racing thoughts difficulty concentrating hopeless helpless he preoccupation related she might be dying fearful needs reassurance Diagnostics Vital Signs (24Hr): Vital Signs - 24 hr 06/04/23 18:00 06/05/23 08:45 Temperature 96.7 F L 96.9 F Pulse Rate 113 H 120 H Respiratory Rate 16 18 Blood Pressure 152/65 H 149/85 H Pulse Oximetry 94 97 Oxygen Delivery Method Room Air Room Air BMI result Body Mass Index 30.3 Labs 06/01/23 07:23 06/01/23 07:23 Medications Medications Current Medications Acetaminophen (Acetaminophen 325 Mg Tablet) 650 mg PO Q6H PRN PRN Reason: Headache/Pain Mild Scale (1-3) Last Admin: 06/02/23 10:08 Dose: 650 mg Al Hydroxide/Mg Hydroxide (Magnesium Hydrox/Alum Hydrox 30 Ml Oral.Susp) 30 ml PO Q6H PRN PRN Reason: Heartburn/Nausea Donepezil HCl (Donepezil Hcl 5 Mg Tablet) 5 mg PO BEDTIME [facility] Last Admin: 06/04/23 20:26 Dose: 5 mg Doxepin HCl (Doxepin Hcl 25 Mg Capsule) 50 mg PO BEDTIME [facility] Last Admin: 06/04/23 20:26 Dose: 50 mg Folic Acid (Folic Acid 1 Mg Tablet) 1 mg PO DAILY [facility] Last Admin: 06/05/23 09:20 Dose: 1 mg Lorazepam (Lorazepam 0.5 Mg Tablet) 0.5 mg PO Q4H PRN PRN Reason: Anxiety Last Admin: 06/05/23 07:00 Dose: 0.5 mg Magnesium Hydroxide (Milk Of Magnesia 30 Ml Oral.Susp) 30 ml PO DAILY PRN PRN Reason: Constipation Memantine (Memantine Hcl 10 Mg Tablet) 10 mg PO BID [facility] Last Admin: 06/05/23 09:19 Dose: 10 mg Pt Own (Lumateperone (21 Mg)) 21 mg PO DAILY@1700 [facility] Last Admin: 06/04/23 18:25 Dose: Not Given Quetiapine Fumarate (Quetiapine Fumarate 25 Mg Tablet) 25 mg PO Q4H PRN PRN Reason: anxiety/restlessness Last Admin: 06/05/23 07:00 Dose: 25 mg Quetiapine Fumarate (Quetiapine Fumarate 25 Mg Tablet) 25 mg PO BEDTIME [facility] Last Admin: 06/04/23 20:25 Dose: 25 mg Thiamine HCl (Thiamine Hcl 100 Mg Tablet) 100 mg PO BID [facility] Last Admin: 06/05/23 09:20 Dose: 100 mg Vortioxetine (Vortioxetine Hydrobromide 20 Mg Tablet) 20 mg PO DAILY [facility] Last Admin: 06/05/23 09:19 Dose: 20 mg Allergies Allergies Allergy/AdvReac Type Severity Reaction Status Date / Time risperidone [From Risperdal] Allergy Intermediate UNKNOWN Verified 05/12/23 13:13 Sulfa (Sulfonamide Allergy Intermediate rash Verified 05/12/23 13:13 Antibiotics) From BENADRYL Allergy Intermediate DIZZY Uncoded 02/14/23 11:47 Assessment & Plan Assessment & Plan (1) Nocturnal hypoxia: Status: Acute Code(s): G47.34 - Idiopathic sleep related nonobstructive alveolar hypoventilation (2) Has daytime drowsiness: Status: Acute Code(s): R40.0 - Somnolence (3) Insomnia: Qualifiers: Insomnia type: unspecified Qualified Code(s): G47.00 - Insomnia, unspecified Status: Acute Code(s): G47.00 - Insomnia, unspecified Plan The patient does have significant nocturnal hypoxia based on her simplified sleep study. She will benefit from using supplemental oxygen at nighttime at 2 L/minute. Although, the patient is reluctant at this time. I will encourage her to could reconsider. The patient needs to undergo an in-lab sleep study once she is able to do so on outpatient basis. The patient should be set up with outpatient Pulmonary in order to make the arrangements for her to have the in-lab sleep study. Review historical treat from the past May have slipped it in a more in study pulmonary consult 06/03/2023 1st right unilateral treatment completed monitor response cognition 06/05/23- Encourage pt to continue with ECT Treatment. Patient educated on: therapeutic strategies Informed Consent: further education needed Reason for continued inpatient stay Substantial Risk for: harm to self, inability to function and rapid decompensation Time Spent With Patient Time: Total time managing care of this patient today ____ minutes.
[2023-06-05 18:00] VITALS: BP 133/61; PULSE 77; TEMP 36.4; O2SAT 93
[2023-06-06] MEDS: Vortioxetine Hydrobromide 20 MG TABLET PO (08:15)
[2023-06-06] MEDS: Memantine HCl 10 MG TABLET PO ×2 (08:15→20:12)
[2023-06-06] MEDS: Folic Acid 1 MG TABLET PO (08:15)
[2023-06-06] MEDS: Thiamine HCL 100 MG TABLET PO ×2 (08:15→20:12)
[2023-06-06] MEDS: LORazepam 0.5 MG TABLET PO ×2 (08:15→12:11)
[2023-06-06 08:45] VITALS: BP 148/92; PULSE 107; RESP 18; TEMP 36.2; O2SAT 94
[2023-06-06] MEDS: QUEtiapine Fumarate 25 MG TABLET PO ×2 (10:00→13:13)
[2023-06-06 13:11] VITALS: BP 143/76; PULSE 136; RESP 20; TEMP 36.3; O2SAT 95
[2023-06-06] MEDS: Propranolol HCL 10 MG TABLET PO (13:13)
[2023-06-06 18:00] VITALS: BP 143/73; PULSE 83; RESP 17; TEMP 36.6; O2SAT 98
[2023-06-06] MEDS: Donepezil HCl 5 MG TABLET PO (20:12)
[2023-06-06] MEDS: Doxepin HCl 25 MG CAPSULE 50 MG PO (20:12)
[2023-06-06] MEDS: QUEtiapine Fumarate 50 MG TABLET PO (20:17)
--- NOTE | 2023-06-06 22:53 | P.PNPSI_ITS ---
Subjective Subjective Date of Service: 06/06/23 Reason For Visit: Severe Depression Agitation Interim History: Patient approached me in the hallway [facility], asked if i was the doctor. She appeared anxious, breathing heavily, she reports I got anxiety which she says is due to I'm gonna . SHe has difficulty artculating her thoughts. She says her medicaiton is not helping, says she doesn have medication but then says she has too much medication. I ask her about ECT (she refused yesterday) she accurately says she has had ECT once but then says this is no good . She says she is dying and ECT wont help. She has difficulty articulating her thoughts. MOod today is I'd have no feelings . She denies any SI and says I'm afraid to . She denies hearing voices. Sleep and appetite are ok. Patient also reports I feel anxious, I feel my heart racing . Per nursing patient didnt sleep. Mental Status Exam Mental Status Exam Patient Appearance: Disheveled Diagnostics Vital Signs (24Hr): Vital Signs - 24 hr 06/06/23 08:45 06/06/23 13:11 06/06/23 18:00 Temperature 97.1 F 97.3 F 97.8 F Pulse Rate 107 H 136 H 83 Respiratory Rate 18 20 17 Blood Pressure 148/92 H 143/76 H 143/73 H Pulse Oximetry 94 95 98 Oxygen Delivery Method Room Air Room Air BMI result Body Mass Index 30.3 Labs 06/14/23 16:49 06/14/23 16:49 Medications Medications Current Medications Acetaminophen (Acetaminophen 325 Mg Tablet) 650 mg PO Q6H PRN PRN Reason: Headache/Pain Mild Scale (1-3) Last Admin: 06/02/23 10:08 Dose: 650 mg Al Hydroxide/Mg Hydroxide (Magnesium Hydrox/Alum Hydrox 30 Ml Oral.Susp) 30 ml PO Q6H PRN PRN Reason: Heartburn/Nausea Donepezil HCl (Donepezil Hcl 5 Mg Tablet) 5 mg PO BEDTIME [facility] Last Admin: 06/06/23 20:12 Dose: 5 mg Doxepin HCl (Doxepin Hcl 25 Mg Capsule) 50 mg PO BEDTIME [facility] Last Admin: 06/06/23 20:12 Dose: 50 mg Folic Acid (Folic Acid 1 Mg Tablet) 1 mg PO DAILY [facility] Last Admin: 06/06/23 08:15 Dose: 1 mg Lorazepam (Lorazepam 0.5 Mg Tablet) 0.5 mg PO Q4H PRN PRN Reason: Anxiety Last Admin: 06/06/23 12:11 Dose: 0.5 mg Magnesium Hydroxide (Milk Of Magnesia 30 Ml Oral.Susp) 30 ml PO DAILY PRN PRN Reason: Constipation Memantine (Memantine Hcl 10 Mg Tablet) 10 mg PO BID [facility] Last Admin: 06/06/23 20:12 Dose: 10 mg Pt Own (Lumateperone (21 Mg)) 21 mg PO DAILY@1700 [facility] Last Admin: 06/06/23 17:43 Dose: Not Given Quetiapine Fumarate (Quetiapine Fumarate 50 Mg Tablet) 50 mg PO Q6H PRN PRN Reason: anxiety/restlessness Quetiapine Fumarate (Quetiapine Fumarate 50 Mg Tablet) 50 mg PO BEDTIME [facility] Last Admin: 06/06/23 20:17 Dose: 50 mg Thiamine HCl (Thiamine Hcl 100 Mg Tablet) 100 mg PO BID [facility] Last Admin: 06/06/23 20:12 Dose: 100 mg Vortioxetine (Vortioxetine Hydrobromide 20 Mg Tablet) 20 mg PO DAILY [facility] Last Admin: 06/06/23 08:15 Dose: 20 mg Allergies Allergies Allergy/AdvReac Type Severity Reaction Status Date / Time risperidone [From Risperdal] Allergy Intermediate UNKNOWN Verified 05/12/23 13:13 Sulfa (Sulfonamide Allergy Intermediate rash Verified 05/12/23 13:13 Antibiotics) From BENADRYL Allergy Intermediate DIZZY Uncoded 02/14/23 11:47 Assessment & Plan Assessment & Plan (1) Nocturnal hypoxia: Status: Acute Code(s): G47.34 - Idiopathic sleep related nonobstructive alveolar hypoventilation (2) Has daytime drowsiness: Status: Acute Code(s): R40.0 - Somnolence (3) Insomnia: Qualifiers: Insomnia type: unspecified Qualified Code(s): G47.00 - Insomnia, unspecified Status: Acute Code(s): G47.00 - Insomnia, unspecified Plan The patient does have significant nocturnal hypoxia based on her simplified sleep study. She will benefit from using supplemental oxygen at nighttime at 2 L/minute. Although, the patient is reluctant at this time. I will encourage her to could reconsider. The patient needs to undergo an in-lab sleep study once she is able to do so on outpatient basis. The patient should be set up with outpatient Pulmonary in order to make the arrangements for her to have the in-lab sleep study. Review historical treat from the past May have slipped it in a more in study pulmonary consult 06/03/2023 1st right unilateral treatment completed monitor response cognition 06/05/23- Encourage pt to continue with ECT Treatment. continue plan - no changes Reason for continued inpatient stay Substantial Risk for: inability to function, rapid decompensation and med/psych decompensation Time Spent With Patient Time: Total time managing care of this patient today ____ minutes.
[2023-06-07 08:00] VITALS: BP 173/79; PULSE 81; TEMP 36.6; O2SAT 96
[2023-06-07] MEDS: Thiamine HCL 100 MG TABLET PO ×2 (09:16→21:20)
[2023-06-07] MEDS: Folic Acid 1 MG TABLET PO (09:16)
[2023-06-07] MEDS: Vortioxetine Hydrobromide 20 MG TABLET PO (09:16)
[2023-06-07] MEDS: Memantine HCl 10 MG TABLET PO ×2 (09:16→21:19)
[2023-06-07] MEDS: LORazepam 0.5 MG TABLET PO ×2 (09:20→21:31)
[2023-06-07] MEDS: QUEtiapine Fumarate 50 MG TABLET PO (16:13)
[2023-06-07 17:24] LABS: Glucose, Whole Blood 131 mg/dL (60-115)
[2023-06-07 18:05] VITALS: BP 149/83; PULSE 129
[2023-06-07] MEDS: Propranolol HCL 10 MG TABLET PO ×2 (18:15→21:20)
[2023-06-07] MEDS: QUEtiapine Fumarate 25 MG TABLET PO (21:19)
[2023-06-07] MEDS: Doxepin HCl 25 MG CAPSULE 50 MG PO (21:19)
[2023-06-07] MEDS: Donepezil HCl 5 MG TABLET PO (21:19)
--- NOTE | 2023-06-07 22:45 | P.PNPSI_ITS ---
Subjective Subjective Date of Service: 06/07/23 Reason For Visit: Severe Depression Agitation Interim History: I'm dying, Look at me, look at me, I'm . Byebye I'm ! Patient charges up to me, and unexpectedly grabs my hand and holds it to her other hand and to her face and yells repeatedly that she is and that I must go away now (but makes no attempts to walk away). She is glaring at me, and through me, and does not respond to any questions by this technical document writer, but just makes odd statements, erratic movements, sliding her feet side to side, in a large quileute around this technical document writer without breaking eye contact and without blinking. She appears alert but is orientedx0, sometimes she stares off blankly unresponsive for several seconds at a time or appears tired for moments, but then is more alert and agitated again, she does not respond to her name and just keeps repeating she is and demanding to go away and stating her arms do not work because they are , as she wiggles them in the air. She was undirectable and was unable to engage in a meaningful dialogue or respond to any questions appropriately. At another point she again charges up to me unexpectedly and intensely grasps my hand to tap herself on the head and says , , again shifting back in forth in place. Staring at me and not responding for long periods of time to any questions. She continued to hold my R hand w her left and remained distracted and would not acknowledge nor even seem to notice I asked to bend her arm and took the opportunity to examine it for a minute (I did not appreciate any rigidity or cogwheeling when manipulating her L arm). Clothing is soiled, appears unkempt, lips are dry cracked with dried blood on lower lip. She is angry, demonstrating no regard for personal space and uncooperative with assessment. She postures aggressively but does not make any attempt to harm or make verbal threats against self or others. She appears restlessly shifting and concerning for delirium, and possibly akithisia. SHe is on Caplyta and low dose Seroquel. For now we will hold Caplyta, start propranolol for ?akithisia (and elevated HR, afebrile) and see if there is improvement as we also review lab work Mental Status Exam Mental Status Exam Patient Appearance: Disheveled, Inappropriate, Unkempt and Bizarre Level of Consciousness: Awake, Disoriented (unable to follow commands, or give appropriate responses to questions) and Alert Patient Behavior: Posturing, Restless, Wandering, Anxious, Fearful, Invasion - Personal Space, Confused, Uncooperative and Impulsive Mood Description: Depressed and Anxious Affect Description: Hostile and Apprehensive Patient Cognition Impaired: Yes Ability to Follow Directions: Poor Speech Pattern: Perseverating, Difficulty Finding Words, Rambling, Loud and Long Pauses Memory Description: Remote Impaired and Immediate Impaired Hallucinations: Visual (unable to obtain, but appears to be responding to internal stimuli) Delusions: Bizarre (believes she has /is ) Thought Process: Disoriented, Incoherent and Illogical Thought Content: positive for Obsessional Thoughts, positive for Poverty of Content, positive for Preoccupation and positive for Disorganized Abnormal Motor Activity Signs and Symptoms: Agitation Judgement: Poor Diagnostics Vital Signs (24Hr): Vital Signs - 24 hr 06/07/23 08:00 06/07/23 18:05 Temperature 97.9 F Pulse Rate 81 129 H Blood Pressure 173/79 H 149/83 H Pulse Oximetry 96 Oxygen Delivery Method Room Air BMI result Body Mass Index 30.3 Labs 06/14/23 16:49 06/14/23 16:49 Labs: Laboratory Results - last 48 hr 06/07/23 16:37 POC Glucose 131 H Medications Medications Current Medications Acetaminophen (Acetaminophen 325 Mg Tablet) 650 mg PO Q6H PRN PRN Reason: Headache/Pain Mild Scale (1-3) Last Admin: 06/02/23 10:08 Dose: 650 mg Al Hydroxide/Mg Hydroxide (Magnesium Hydrox/Alum Hydrox 30 Ml Oral.Susp) 30 ml PO Q6H PRN PRN Reason: Heartburn/Nausea Donepezil HCl (Donepezil Hcl 5 Mg Tablet) 5 mg PO BEDTIME [facility] Last Admin: 06/07/23 21:19 Dose: 5 mg Doxepin HCl (Doxepin Hcl 25 Mg Capsule) 50 mg PO BEDTIME [facility] Last Admin: 06/07/23 21:19 Dose: 50 mg Folic Acid (Folic Acid 1 Mg Tablet) 1 mg PO DAILY [facility] Last Admin: 06/07/23 09:16 Dose: 1 mg Lorazepam (Lorazepam 0.5 Mg Tablet) 0.5 mg PO Q4H PRN PRN Reason: Anxiety Last Admin: 06/07/23 21:31 Dose: 0.5 mg Magnesium Hydroxide (Milk Of Magnesia 30 Ml Oral.Susp) 30 ml PO DAILY PRN PRN Reason: Constipation Memantine (Memantine Hcl 10 Mg Tablet) 10 mg PO BID [facility] Last Admin: 06/07/23 21:19 Dose: 10 mg Pt Own (Lumateperone (21 Mg)) 21 mg PO DAILY@1700 [facility] Last Admin: 06/07/23 18:18 Dose: Not Given Propranolol HCl (Propranolol Hcl 10 Mg Tablet) 10 mg PO BID [facility]; Protocol Last Admin: 06/07/23 21:20 Dose: 10 mg Quetiapine Fumarate (Quetiapine Fumarate 25 Mg Tablet) 25 mg PO Q6H PRN PRN Reason: anxiety/restlessness Quetiapine Fumarate (Quetiapine Fumarate 25 Mg Tablet) 25 mg PO BEDTIME [facility] Last Admin: 06/07/23 21:19 Dose: 25 mg Thiamine HCl (Thiamine Hcl 100 Mg Tablet) 100 mg PO BID [facility] Last Admin: 06/07/23 21:20 Dose: 100 mg Vortioxetine (Vortioxetine Hydrobromide 20 Mg Tablet) 20 mg PO DAILY [facility] Last Admin: 06/07/23 09:16 Dose: 20 mg Allergies Allergies Allergy/AdvReac Type Severity Reaction Status Date / Time risperidone [From Risperdal] Allergy Intermediate UNKNOWN Verified 05/12/23 13:13 Sulfa (Sulfonamide Allergy Intermediate rash Verified 05/12/23 13:13 Antibiotics) From BENADRYL Allergy Intermediate DIZZY Uncoded 02/14/23 11:47 Assessment & Plan Assessment & Plan (1) Nocturnal hypoxia: Status: Acute Code(s): G47.34 - Idiopathic sleep related nonobstructive alveolar hypoventilation (2) Has daytime drowsiness: Status: Acute Code(s): R40.0 - Somnolence (3) Insomnia: Qualifiers: Insomnia type: unspecified Qualified Code(s): G47.00 - Insomnia, unspecified Status: Acute Code(s): G47.00 - Insomnia, unspecified Plan The patient does have significant nocturnal hypoxia based on her simplified sleep study. She will benefit from using supplemental oxygen at nighttime at 2 L/minute. Although, the patient is reluctant at this time. I will encourage her to could reconsider. The patient needs to undergo an in-lab sleep study once she is able to do so on outpatient basis. The patient should be set up with outpatient Pulmonary in order to make the arrangements for her to have the in-lab sleep study. Review historical treat from the past May have slipped it in a more in study pulmonary consult 06/03/2023 1st right unilateral treatment completed monitor response cognition 06/05/23- Encourage pt to continue with ECT Treatment. Will hold Caplyta tonight will review VS and recent lab work, considerUTI or other medical issues Patient educated on: diagnosis and medication risk/benefits Informed Consent: does not understand Reason for continued inpatient stay Substantial Risk for: harm to self, inability to function, rapid decompensation and med/psych decompensation Time Spent With Patient Time: Total time managing care of this patient today ____ minutes.
[2023-06-08 08:00] VITALS: BP 148/78; PULSE 74; TEMP 36.6; O2SAT 97
[2023-06-08] MEDS: Vortioxetine Hydrobromide 20 MG TABLET PO (08:44)
[2023-06-08] MEDS: Thiamine HCL 100 MG TABLET PO (08:44)
[2023-06-08] MEDS: Memantine HCl 10 MG TABLET PO (08:44)
[2023-06-08] MEDS: Folic Acid 1 MG TABLET PO (08:44)
[2023-06-08] MEDS: Propranolol HCL 10 MG TABLET PO (08:44)
--- NOTE | 2023-06-08 09:53 | PC.NURSE ---
Pt requested to sign a 3 day notice which was given to her. Pt then said she wanted to take it back because she thought that it meant that she could leave today. Pt has the physical paper and is refusing to give it to staff, no providers were notified.
[2023-06-08 19:20] VITALS: BP 127/90; PULSE 95; RESP 16; TEMP 36.3; O2SAT 99
--- NOTE | 2023-06-08 20:32 | PC.NURSE ---
Assumed care of pt @ 19:30. PT laying in bed, in no apparent distress, resp even and unlabored. When this nurse asked how patient is, she responded I can't eat . Plan of care ongoing.
--- NOTE | 2023-06-08 21:40 | PC.NURSE ---
PT refused evening medications after multiple attempts. PT repeatedly stated I am despite this RN pointing on many signs of life. Plan of care ongoing.
--- NOTE | 2023-06-08 21:54 | P.PNPSI_ITS ---
Subjective Subjective Date of Service: 06/08/23 Reason For Visit: Severe Depression Agitation Interim History: Last night patient remained restless. Caplyta was held. This AM patient refused AM meds but later around lunch she did take them. She is a little improved today, she is responding to questions now. Still presenting as delusional anxious and restless but is less erratic. She continues with delusional statements about being , but maintains better personal boundaries when talking and was able to respond to some questions, and repsonded to her name. She continues to be preoccupied with being , she makes demands I want to see my and I have to leave , WHen encouraged to have him visit she says okay but then asks again moments later to be let out to go home. Still appears dishevelled, hair unkempt, lips still dry nut no further blood on lip, gown clean. Still restless but less agitated no odd movements (ie sideway shifting). VS afebrile, BP and Hr improved (was high yesterday) We will hold Caplyta once again tonight, and defer to primary team tomorrow to reinstate. Mental Status Exam Mental Status Exam Narrative: In no acute physical distress Patient Appearance: Disheveled, Inappropriate, Unkempt Level of Consciousness: Awake, Disoriented and Alert Patient Behavior: Restless, Wandering, Anxious, Confused, Mood Description: Depressed and Anxious Affect Description: Apprehensive Patient Cognition Impaired: Yes Ability to Follow Directions: Fair/Poor Speech Pattern: Perseverating, Rambling Memory Description: Remote Impaired and Immediate Impaired Hallucinations: denies AH Delusions: Bizarre (believes she has /is ) Thought Process: perseverative, Illogical Thought Content: positive for Obsessional Thoughts, positive for Poverty of Content, positive for Preoccupation and positive for Disorganized Abnormal Motor Activity Signs and Symptoms: Agitation Insight/Judgement: impaired Diagnostics Vital Signs (24Hr): Vital Signs - 24 hr 06/08/23 08:00 06/08/23 19:20 Temperature 97.9 F 97.4 F Pulse Rate 74 95 Respiratory Rate 16 Blood Pressure 148/78 H 127/90 H Pulse Oximetry 97 99 Oxygen Delivery Method Room Air Room Air BMI result Body Mass Index 30.3 Labs 06/14/23 16:49 06/14/23 16:49 Labs: Laboratory Results - last 48 hr 06/07/23 16:37 POC Glucose 131 H Medications Medications Current Medications Acetaminophen (Acetaminophen 325 Mg Tablet) 650 mg PO Q6H PRN PRN Reason: Headache/Pain Mild Scale (1-3) Last Admin: 06/02/23 10:08 Dose: 650 mg Al Hydroxide/Mg Hydroxide (Magnesium Hydrox/Alum Hydrox 30 Ml Oral.Susp) 30 ml PO Q6H PRN PRN Reason: Heartburn/Nausea Donepezil HCl (Donepezil Hcl 5 Mg Tablet) 5 mg PO BEDTIME [facility] Last Admin: 06/08/23 21:39 Dose: Not Given Doxepin HCl (Doxepin Hcl 25 Mg Capsule) 50 mg PO BEDTIME [facility] Last Admin: 06/08/23 21:39 Dose: Not Given Folic Acid (Folic Acid 1 Mg Tablet) 1 mg PO DAILY [facility] Last Admin: 06/08/23 08:44 Dose: 1 mg Lorazepam (Lorazepam 0.5 Mg Tablet) 0.5 mg PO Q4H PRN PRN Reason: Anxiety Last Admin: 06/07/23 21:31 Dose: 0.5 mg Magnesium Hydroxide (Milk Of Magnesia 30 Ml Oral.Susp) 30 ml PO DAILY PRN PRN Reason: Constipation Memantine (Memantine Hcl 10 Mg Tablet) 10 mg PO BID [facility] Last Admin: 06/08/23 21:39 Dose: Not Given Pt Own (Lumateperone (21 Mg)) 21 mg PO DAILY@1700 [facility] Last Admin: 06/07/23 18:18 Dose: Not Given Propranolol HCl (Propranolol Hcl 10 Mg Tablet) 10 mg PO BID [facility]; Protocol Last Admin: 06/08/23 21:39 Dose: Not Given Quetiapine Fumarate (Quetiapine Fumarate 25 Mg Tablet) 25 mg PO Q6H PRN PRN Reason: anxiety/restlessness Quetiapine Fumarate (Quetiapine Fumarate 25 Mg Tablet) 25 mg PO BEDTIME [facility] Last Admin: 06/08/23 21:40 Dose: Not Given Thiamine HCl (Thiamine Hcl 100 Mg Tablet) 100 mg PO BID [facility] Last Admin: 06/08/23 21:40 Dose: Not Given Vortioxetine (Vortioxetine Hydrobromide 20 Mg Tablet) 20 mg PO DAILY [facility] Last Admin: 06/08/23 08:44 Dose: 20 mg Allergies Allergies Allergy/AdvReac Type Severity Reaction Status Date / Time risperidone [From Risperdal] Allergy Intermediate UNKNOWN Verified 05/12/23 13:13 Sulfa (Sulfonamide Allergy Intermediate rash Verified 05/12/23 13:13 Antibiotics) From BENADRYL Allergy Intermediate DIZZY Uncoded 02/14/23 11:47 Assessment & Plan Assessment & Plan (1) Major depressive disorder, recurrent severe without psychotic features: Status: Acute Code(s): F33.2 - Major depressive disorder, recurrent severe without psychotic features (2) Nocturnal hypoxia: Status: Acute Code(s): G47.34 - Idiopathic sleep related nonobstructive alveolar hypoventilation (3) Has daytime drowsiness: Status: Acute Code(s): R40.0 - Somnolence Plan The patient does have significant nocturnal hypoxia based on her simplified sleep study. She will benefit from using supplemental oxygen at nighttime at 2 L/minute. Although, the patient is reluctant at this time. I will encourage her to could reconsider. The patient needs to undergo an in-lab sleep study once she is able to do so on outpatient basis. The patient should be set up with outpatient Pulmonary in order to make the arrangements for her to have the in-lab sleep study. Review historical treat from the past May have slipped it in a more in study pulmonary consult 06/03/2023 1st right unilateral treatment completed monitor response cognition 06/04/2023 Patient with history of recurrent depression had been stable for a number years on a combination of Trintellix doxepin had done well with the addition of caplyta continue ECT monitor for delirium or worsening confusion may only tolerate 2 times a week continue to hold Caplyta, defer further management to primary team tomorrow Reason for continued inpatient stay Substantial Risk for: inability to function, rapid decompensation and med/psych decompensation Time Spent With Patient Time: Total time managing care of this patient today ____ minutes.
[2023-06-09 08:00] VITALS: BP 158/97; PULSE 105; RESP 18; TEMP 36.2; O2SAT 96
[2023-06-09] MEDS: Folic Acid 1 MG TABLET PO (08:14)
[2023-06-09] MEDS: LORazepam 0.5 MG TABLET PO ×3 (08:14→18:37)
[2023-06-09] MEDS: Vortioxetine Hydrobromide 20 MG TABLET PO (08:14)
[2023-06-09] MEDS: Thiamine HCL 100 MG TABLET PO ×2 (08:14→19:59)
[2023-06-09] MEDS: Memantine HCl 10 MG TABLET PO ×2 (08:14→19:59)
[2023-06-09] MEDS: Propranolol HCL 10 MG TABLET PO ×2 (08:14→19:59)
[2023-06-09] MEDS: QUEtiapine Fumarate 25 MG TABLET PO ×2 (14:03→19:59)
--- NOTE | 2023-06-09 17:20 | HO.PSYCHPN ---
Subjective Subjective Date of Service: 06/09/23 Reason For Visit: Severe Depression Agitation Subjective Notes: Conditional Voluntary Healthcare Proxy: No Guardianship: No Medical Problems Affecting Mental Status: No Interim History: Weekend team added propranolol 10 mg bid and seroquel 25 mg hs and q6 prn to regime. Met with pt. Discussed her refusal of treatment. I don't think it is worth it. Attempted discussion. Pt agrees to accept medications/ECT as this was the treatment plan she and Dr. Willett agreed to. We discussed her length of time working with Dr. Willett and her level of high trust in him. Discussed wanting to continue the plan they agreed upon to help her to improve. She agreed this is a solid plan of care. I think I am dying. Medication Compliance: Intermittent Side effects from medications: No Attending Groups: No Review of Systems Acute medical concerns: No Medical Review of Systems: unchanged Review of Systems Review of Systems Yes Unobtainable due to mental status Mental Status Exam Mental Status Exam Patient Appearance: Appropriate Patient Orientation: Person, Place, Time and Situation Level of Consciousness: Awake and Restless Patient Behavior: Appropriate Mood Description: Withdrawn, Depressed, Anxious, Blunted, Flat and Apprehensive Affect Description: Appropriate, Constricted, Labile and Apprehensive Patient Cognition Impaired: Yes Ability to Follow Directions: Good Speech Pattern: Clear Memory Description: Recent Impaired and Working Impaired Hallucinations: None Delusions: Not Present Thought Process: Intact and Goal Oriented Thought Content: positive for Racing, positive for Obsessional Thoughts, positive for Goal Oriented, positive for Perseveration, positive for Preoccupation, negative for Suicidal Ideation or negative for Homicidal Ideation Depressive Symptoms: Increased Anxiety, Increased Irritability, Hopelessness, Increased Fatigue, Loss of Energy and Difficulty Concentrating Abnormal Motor Activity Signs and Symptoms: Psychomotor Retardation and Restlessness Judgement: Fair Judgement and Insight: Racing thoughts difficulty concentrating hopeless helpless he preoccupation related she might be dying fearful needs reassurance Diagnostics Vital Signs (24Hr): Vital Signs - 24 hr 06/08/23 19:20 06/09/23 08:00 Temperature 97.4 F 97.2 F Pulse Rate 95 105 H Respiratory Rate 16 18 Blood Pressure 127/90 H 158/97 H Pulse Oximetry 99 96 Oxygen Delivery Method Room Air Room Air BMI result Body Mass Index 30.3 Labs 06/01/23 07:23 06/01/23 07:23 Labs: Laboratory Results - last 48 hr 06/07/23 16:37 POC Glucose 131 H Medications Medications Current Medications Acetaminophen (Acetaminophen 325 Mg Tablet) 650 mg PO Q6H PRN PRN Reason: Headache/Pain Mild Scale (1-3) Last Admin: 06/02/23 10:08 Dose: 650 mg Al Hydroxide/Mg Hydroxide (Magnesium Hydrox/Alum Hydrox 30 Ml Oral.Susp) 30 ml PO Q6H PRN PRN Reason: Heartburn/Nausea Donepezil HCl (Donepezil Hcl 5 Mg Tablet) 5 mg PO BEDTIME [facility] Last Admin: 06/08/23 21:39 Dose: Not Given Doxepin HCl (Doxepin Hcl 25 Mg Capsule) 50 mg PO BEDTIME [facility] Last Admin: 06/08/23 21:39 Dose: Not Given Folic Acid (Folic Acid 1 Mg Tablet) 1 mg PO DAILY [facility] Last Admin: 06/09/23 08:14 Dose: 1 mg Lorazepam (Lorazepam 0.5 Mg Tablet) 0.5 mg PO Q4H PRN PRN Reason: Anxiety Last Admin: 06/09/23 14:03 Dose: 0.5 mg Magnesium Hydroxide (Milk Of Magnesia 30 Ml Oral.Susp) 30 ml PO DAILY PRN PRN Reason: Constipation Memantine (Memantine Hcl 10 Mg Tablet) 10 mg PO BID [facility] Last Admin: 06/09/23 08:14 Dose: 10 mg Pt Own (Lumateperone (21 Mg)) 21 mg PO DAILY@1700 [facility] Last Admin: 06/07/23 18:18 Dose: Not Given Propranolol HCl (Propranolol Hcl 10 Mg Tablet) 10 mg PO BID [facility]; Protocol Last Admin: 06/09/23 08:14 Dose: 10 mg Quetiapine Fumarate (Quetiapine Fumarate 25 Mg Tablet) 25 mg PO Q6H PRN PRN Reason: anxiety/restlessness Last Admin: 06/09/23 14:03 Dose: 25 mg Quetiapine Fumarate (Quetiapine Fumarate 25 Mg Tablet) 25 mg PO BEDTIME [facility] Last Admin: 06/08/23 21:40 Dose: Not Given Thiamine HCl (Thiamine Hcl 100 Mg Tablet) 100 mg PO BID [facility] Last Admin: 06/09/23 08:14 Dose: 100 mg Vortioxetine (Vortioxetine Hydrobromide 20 Mg Tablet) 20 mg PO DAILY [facility] Last Admin: 06/08/23 08:44 Dose: 20 mg Allergies Allergies Allergy/AdvReac Type Severity Reaction Status Date / Time risperidone [From Risperdal] Allergy Intermediate UNKNOWN Verified 05/12/23 13:13 Sulfa (Sulfonamide Allergy Intermediate rash Verified 05/12/23 13:13 Antibiotics) From BENADRYL Allergy Intermediate DIZZY Uncoded 02/14/23 11:47 Assessment & Plan Assessment & Plan (1) Major depressive disorder, recurrent severe without psychotic features: Status: Acute Code(s): F33.2 - Major depressive disorder, recurrent severe without psychotic features (2) Nocturnal hypoxia: Status: Acute Code(s): G47.34 - Idiopathic sleep related nonobstructive alveolar hypoventilation (3) Has daytime drowsiness: Status: Acute Code(s): R40.0 - Somnolence Plan The patient does have significant nocturnal hypoxia based on her simplified sleep study. She will benefit from using supplemental oxygen at nighttime at 2 L/minute. Although, the patient is reluctant at this time. I will encourage her to could reconsider. The patient needs to undergo an in-lab sleep study once she is able to do so on outpatient basis. The patient should be set up with outpatient Pulmonary in order to make the arrangements for her to have the in-lab sleep study. Review historical treat from the past May have slipped it in a more in study pulmonary consult 06/03/2023 1st right unilateral treatment completed monitor response cognition 06/04/2023 Patient with history of recurrent depression had been stable for a number years on a combination of Trintellix doxepin had done well with the addition of caplyta continue ECT monitor for delirium or worsening confusion may only tolerate 2 times a week 06/09/23 Continue plan of care Should pt continue to refuse, we will need to file a Section VII and proceed for court approval of her treatment plan. Patient educated on: therapeutic strategies Informed Consent: further education needed Reason for continued inpatient stay Substantial Risk for: rapid decompensation Time Spent With Patient Time: Total time managing care of this patient today ____ minutes.
[2023-06-09 18:00] VITALS: BP 141/98; PULSE 119; RESP 18; TEMP 36.1; O2SAT 95
[2023-06-09] MEDS: Doxepin HCl 25 MG CAPSULE 50 MG PO (19:59)
[2023-06-09] MEDS: Donepezil HCl 5 MG TABLET PO (19:59)
[2023-06-09 21:22] VITALS: BP 105/73; PULSE 92; RESP 18; TEMP 36.3; O2SAT 95
--- NOTE | 2023-06-10 06:20 | PC.NURSE ---
PT REFUSED ECT THIS MORNING. PT STATED I AM . IM NOT GOING. LEAVE ME ALONE . PT THEN TURNED AWAY FROM RN IN BED. MD ENGLISH AND JULIETTE SMITH MADE AWARE. PACU ALERTED.
[2023-06-10 08:19] VITALS: BP 172/78; PULSE 70; RESP 16; TEMP 36.9; O2SAT 98
--- NOTE | 2023-06-10 17:30 | HO.PSYCHPN ---
Subjective Subjective Date of Service: 06/10/23 Reason For Visit: Severe Depression Agitation Subjective Notes: Conditional Voluntary Healthcare Proxy: No Guardianship: No Medical Problems Affecting Mental Status: No Interim History: Per team, pt is more agitated and moving away from reality. Team reports she lost continence in front of the toilet. She continues to report she is or is in the process of dying. She is intermittently refusing her medications and refused ECT this a.m. Section VII paperwork completed for review. Medication Compliance: Intermittent Side effects from medications: No Attending Groups: No Review of Systems Acute medical concerns: No Medical Review of Systems: unchanged Review of Systems Review of Systems Yes Unobtainable due to mental status Mental Status Exam Mental Status Exam Patient Appearance: Appropriate Patient Orientation: Person, Place, Time and Situation Level of Consciousness: Awake and Restless Patient Behavior: Appropriate Mood Description: Withdrawn, Depressed, Anxious, Blunted, Flat and Apprehensive Affect Description: Appropriate, Constricted, Labile and Apprehensive Patient Cognition Impaired: Yes Ability to Follow Directions: Good Speech Pattern: Clear Memory Description: Recent Impaired and Working Impaired Hallucinations: None Delusions: Not Present Thought Process: Intact and Goal Oriented Thought Content: positive for Racing, positive for Obsessional Thoughts, positive for Goal Oriented, positive for Perseveration, positive for Preoccupation, negative for Suicidal Ideation or negative for Homicidal Ideation Depressive Symptoms: Increased Anxiety, Increased Irritability, Hopelessness, Increased Fatigue, Loss of Energy and Difficulty Concentrating Abnormal Motor Activity Signs and Symptoms: Psychomotor Retardation and Restlessness Judgement: Fair Judgement and Insight: Racing thoughts difficulty concentrating hopeless helpless he preoccupation related she might be dying fearful needs reassurance Diagnostics Vital Signs (24Hr): Vital Signs - 24 hr 06/09/23 18:00 06/09/23 21:22 06/10/23 08:19 Temperature 97.0 F 97.3 F 98.5 F Pulse Rate 119 H 92 70 Respiratory Rate 18 18 16 Blood Pressure 141/98 H 105/73 172/78 H Pulse Oximetry 95 95 98 Oxygen Delivery Method Room Air Room Air Room Air BMI result Body Mass Index 30.3 Labs 06/01/23 07:23 06/01/23 07:23 Medications Medications Current Medications Acetaminophen (Acetaminophen 325 Mg Tablet) 650 mg PO Q6H PRN PRN Reason: Headache/Pain Mild Scale (1-3) Last Admin: 06/02/23 10:08 Dose: 650 mg Al Hydroxide/Mg Hydroxide (Magnesium Hydrox/Alum Hydrox 30 Ml Oral.Susp) 30 ml PO Q6H PRN PRN Reason: Heartburn/Nausea Donepezil HCl (Donepezil Hcl 5 Mg Tablet) 5 mg PO BEDTIME [facility] Last Admin: 06/09/23 19:59 Dose: 5 mg Doxepin HCl (Doxepin Hcl 25 Mg Capsule) 50 mg PO BEDTIME [facility] Last Admin: 06/09/23 19:59 Dose: 50 mg Folic Acid (Folic Acid 1 Mg Tablet) 1 mg PO DAILY [facility] Last Admin: 06/10/23 11:31 Dose: Not Given Lorazepam (Lorazepam 0.5 Mg Tablet) 0.5 mg PO Q4H PRN PRN Reason: Anxiety Last Admin: 06/09/23 18:37 Dose: 0.5 mg Magnesium Hydroxide (Milk Of Magnesia 30 Ml Oral.Susp) 30 ml PO DAILY PRN PRN Reason: Constipation Memantine (Memantine Hcl 10 Mg Tablet) 10 mg PO BID [facility] Last Admin: 06/10/23 11:31 Dose: Not Given Pt Own (Lumateperone (21 Mg)) 21 mg PO DAILY@1700 [facility] Last Admin: 06/07/23 18:18 Dose: Not Given Propranolol HCl (Propranolol Hcl 10 Mg Tablet) 10 mg PO BID [facility]; Protocol Last Admin: 06/10/23 11:31 Dose: Not Given Quetiapine Fumarate (Quetiapine Fumarate 25 Mg Tablet) 25 mg PO Q6H PRN PRN Reason: anxiety/restlessness Last Admin: 06/09/23 14:03 Dose: 25 mg Quetiapine Fumarate (Quetiapine Fumarate 25 Mg Tablet) 25 mg PO BEDTIME [facility] Last Admin: 06/09/23 19:59 Dose: 25 mg Thiamine HCl (Thiamine Hcl 100 Mg Tablet) 100 mg PO BID [facility] Last Admin: 06/10/23 11:34 Dose: Not Given Vortioxetine (Vortioxetine Hydrobromide 20 Mg Tablet) 20 mg PO DAILY [facility] Last Admin: 06/10/23 11:34 Dose: Not Given Allergies Allergies Allergy/AdvReac Type Severity Reaction Status Date / Time risperidone [From Risperdal] Allergy Intermediate UNKNOWN Verified 05/12/23 13:13 Sulfa (Sulfonamide Allergy Intermediate rash Verified 05/12/23 13:13 Antibiotics) From [facility] Allergy Intermediate DIZZY Uncoded 02/14/23 11:47 Assessment & Plan Assessment & Plan (1) Major depressive disorder, recurrent severe without psychotic features: Status: Acute Code(s): F33.2 - Major depressive disorder, recurrent severe without psychotic features (2) Nocturnal hypoxia: Status: Acute Code(s): G47.34 - Idiopathic sleep related nonobstructive alveolar hypoventilation (3) Has daytime drowsiness: Status: Acute Code(s): R40.0 - Somnolence Plan The patient does have significant nocturnal hypoxia based on her simplified sleep study. She will benefit from using supplemental oxygen at nighttime at 2 L/minute. Although, the patient is reluctant at this time. I will encourage her to could reconsider. The patient needs to undergo an in-lab sleep study once she is able to do so on outpatient basis. The patient should be set up with outpatient Pulmonary in order to make the arrangements for her to have the in-lab sleep study. Review historical treat from the past May have slipped it in a more in study pulmonary consult 06/03/2023 1st right unilateral treatment completed monitor response cognition 06/04/2023 Patient with history of recurrent depression had been stable for a number years on a combination of Trintellix doxepin had done well with the addition of caplyta continue ECT monitor for delirium or worsening confusion may only tolerate 2 times a week 06/09/23 Continue plan of care Should pt continue to refuse, we will need to file a Section VII and proceed for court approval of her treatment plan. 06/10/23 Refusal of treatment Section VII paperwork is completed. Informed Consent: does not understand Reason for continued inpatient stay Substantial Risk for: rapid decompensation Time Spent With Patient Time: Total time managing care of this patient today ____ minutes.
[2023-06-10 19:35] VITALS: BP 167/96; PULSE 124; RESP 16; TEMP 36.3; O2SAT 96
[2023-06-11 08:26] VITALS: BP 178/96; PULSE 127; RESP 18; TEMP 35.9; O2SAT 96
[2023-06-11] MEDS: Propranolol HCL 10 MG TABLET PO (09:11)
[2023-06-11] MEDS: LORazepam 0.5 MG TABLET PO (09:12)
[2023-06-11 10:44] VITALS: BP 140/81; PULSE 99
--- NOTE | 2023-06-11 17:33 | HO.PSYCHPN ---
Subjective Subjective Date of Service: 06/11/23 Reason For Visit: Severe Depression Agitation Subjective Notes: Section 7 Healthcare Proxy: No Guardianship: No Medical Problems Affecting Mental Status: No Interim History: Section 7, court 06/18/23. Refusal of meds, ECT, treatment with worsening sx. Pt is interactive today. We discussed court process. Assured she will not go to assisted, however, the armoring machine operator will be asked to decide if she is to continue with her treatment plan or if she is allowed to decline. He will want me to take medicine and do ECT . Anxious, with agitation at times. When asked what could be done to assist her in feeling better and being more comfortable, she responded she did not know, I think it has gone too far. Restless and very difficult to support. Refused to talk with her family today. Medication Compliance: Intermittent Side effects from medications: No Attending Groups: No Review of Systems Acute medical concerns: No Medical Review of Systems: unchanged Review of Systems Review of Systems Yes Unobtainable due to mental status Mental Status Exam Mental Status Exam Patient Appearance: Appropriate Patient Orientation: Person, Place, Time and Situation Level of Consciousness: Awake and Restless Patient Behavior: Appropriate Mood Description: Withdrawn, Depressed, Anxious, Blunted, Flat and Apprehensive Affect Description: Appropriate, Constricted, Labile and Apprehensive Patient Cognition Impaired: Yes Ability to Follow Directions: Good Speech Pattern: Clear Memory Description: Recent Impaired and Working Impaired Hallucinations: None Delusions: Not Present Thought Process: Intact and Goal Oriented Thought Content: positive for Racing, positive for Obsessional Thoughts, positive for Goal Oriented, positive for Perseveration, positive for Preoccupation, negative for Suicidal Ideation or negative for Homicidal Ideation Depressive Symptoms: Increased Anxiety, Increased Irritability, Hopelessness, Increased Fatigue, Loss of Energy and Difficulty Concentrating Abnormal Motor Activity Signs and Symptoms: Psychomotor Retardation and Restlessness Judgement: Fair Judgement and Insight: Racing thoughts difficulty concentrating hopeless helpless he preoccupation related she might be dying fearful needs reassurance Diagnostics Vital Signs (24Hr): Vital Signs - 24 hr 06/10/23 19:35 06/11/23 08:26 06/11/23 10:44 Temperature 97.4 F 96.7 F L Pulse Rate 124 H 127 H 99 Respiratory Rate 16 18 Blood Pressure 167/96 H 178/96 H 140/81 H Pulse Oximetry 96 96 Oxygen Delivery Method Room Air Room Air BMI result Body Mass Index 30.3 Labs 06/01/23 07:23 06/01/23 07:23 Medications Medications Current Medications Acetaminophen (Acetaminophen 325 Mg Tablet) 650 mg PO Q6H PRN PRN Reason: Headache/Pain Mild Scale (1-3) Last Admin: 06/02/23 10:08 Dose: 650 mg Al Hydroxide/Mg Hydroxide (Magnesium Hydrox/Alum Hydrox 30 Ml Oral.Susp) 30 ml PO Q6H PRN PRN Reason: Heartburn/Nausea Donepezil HCl (Donepezil Hcl 5 Mg Tablet) 5 mg PO BEDTIME [facility] Last Admin: 06/10/23 20:54 Dose: Not Given Doxepin HCl (Doxepin Hcl 25 Mg Capsule) 50 mg PO BEDTIME [facility] Last Admin: 06/10/23 20:54 Dose: Not Given Folic Acid (Folic Acid 1 Mg Tablet) 1 mg PO DAILY [facility] Last Admin: 06/11/23 09:15 Dose: Not Given Lorazepam (Lorazepam 0.5 Mg Tablet) 0.5 mg PO Q4H PRN PRN Reason: Anxiety Last Admin: 06/11/23 09:12 Dose: 0.5 mg Magnesium Hydroxide (Milk Of Magnesia 30 Ml Oral.Susp) 30 ml PO DAILY PRN PRN Reason: Constipation Memantine (Memantine Hcl 10 Mg Tablet) 10 mg PO BID [facility] Last Admin: 06/11/23 09:15 Dose: Not Given Pt Own (Lumateperone (21 Mg)) 21 mg PO DAILY@1700 [facility] Last Admin: 06/07/23 18:18 Dose: Not Given Propranolol HCl (Propranolol Hcl 10 Mg Tablet) 10 mg PO BID [facility]; Protocol Last Admin: 06/11/23 09:11 Dose: 10 mg Quetiapine Fumarate (Quetiapine Fumarate 25 Mg Tablet) 25 mg PO Q6H PRN PRN Reason: anxiety/restlessness Last Admin: 06/09/23 14:03 Dose: 25 mg Quetiapine Fumarate (Quetiapine Fumarate 25 Mg Tablet) 25 mg PO BEDTIME [facility] Last Admin: 06/10/23 20:54 Dose: Not Given Thiamine HCl (Thiamine Hcl 100 Mg Tablet) 100 mg PO BID [facility] Last Admin: 06/11/23 09:15 Dose: Not Given Vortioxetine (Vortioxetine Hydrobromide 20 Mg Tablet) 20 mg PO DAILY [facility] Last Admin: 06/11/23 09:15 Dose: Not Given Allergies Allergies Allergy/AdvReac Type Severity Reaction Status Date / Time risperidone [From Risperdal] Allergy Intermediate UNKNOWN Verified 05/12/23 13:13 Sulfa (Sulfonamide Allergy Intermediate rash Verified 05/12/23 13:13 Antibiotics) From BENADRYL Allergy Intermediate DIZZY Uncoded 02/14/23 11:47 Assessment & Plan Assessment & Plan (1) Major depressive disorder, recurrent severe without psychotic features: Status: Acute Code(s): F33.2 - Major depressive disorder, recurrent severe without psychotic features (2) Nocturnal hypoxia: Status: Acute Code(s): G47.34 - Idiopathic sleep related nonobstructive alveolar hypoventilation (3) Has daytime drowsiness: Status: Acute Code(s): R40.0 - Somnolence Plan The patient does have significant nocturnal hypoxia based on her simplified sleep study. She will benefit from using supplemental oxygen at nighttime at 2 L/minute. Although, the patient is reluctant at this time. I will encourage her to could reconsider. The patient needs to undergo an in-lab sleep study once she is able to do so on outpatient basis. The patient should be set up with outpatient Pulmonary in order to make the arrangements for her to have the in-lab sleep study. Review historical treat from the past May have slipped it in a more in study pulmonary consult 06/03/2023 1st right unilateral treatment completed monitor response cognition 06/04/2023 Patient with history of recurrent depression had been stable for a number years on a combination of Trintellix doxepin had done well with the addition of caplyta continue ECT monitor for delirium or worsening confusion may only tolerate 2 times a week 06/09/23 Continue plan of care Should pt continue to refuse, we will need to file a Section VII and proceed for court approval of her treatment plan. 06/10/23 Refusal of treatment Section VII paperwork is completed. 06/11/[address] 06/18/23. Informed Consent: does not understand Reason for continued inpatient stay Substantial Risk for: rapid decompensation and med/psych decompensation Time Spent With Patient Time: Total time managing care of this patient today ____ minutes.
[2023-06-12 09:20] VITALS: PULSE 126; TEMP 36.3
--- NOTE | 2023-06-12 14:06 | HO.PSYCHPN ---
Subjective Subjective Date of Service: 06/12/23 Reason For Visit: Severe Depression Agitation Subjective Notes: Section 7 Healthcare Proxy: No Guardianship: No Medical Problems Affecting Mental Status: No Interim History: Distracted, agitated, unable to console. Team reports pt urinated in the milieu, disrobed. She is pacing the halls, appears worried and presents with a hopeless stance. She refuses interventions. Pt's sister Hollie Collier called 06/11. When asked today if we could reach out to Hollie, pt stated NO . When asked if she would reach out to Hollie, pt smiled and stated NO . Message left for pt's , Talon Rodrigues [phone]. He returned call later in the day. We discussed Section 8 and rationale. He will come to the hospital to participate in the hearing on 06/18/23. He will contact family to update them. He discussed how quickly pt became symptomatic and this is strange for him as he usually can see signs of illness progressing, but did not in this occurrence. Medication Compliance: No Side effects from medications: No Attending Groups: No Review of Systems Acute medical concerns: No Medical Review of Systems: unchanged Review of Systems Review of Systems Yes Unobtainable due to mental status Mental Status Exam Mental Status Exam Patient Appearance: Unkempt Patient Orientation: Person, Place and Situation Level of Consciousness: Awake and Restless Patient Behavior: Guarded, Suspicious, Restless, Anxious, Resistive to Care, Fatigued, Distractible, Good Eye Contact and Uncooperative Mood Description: Withdrawn, Depressed, Anxious, Blunted, Angry, Flat and Apprehensive Affect Description: Constricted, Labile, Angry and Apprehensive Patient Cognition Impaired: Yes Ability to Follow Directions: Fair Speech Pattern: Perseverating and Spontaneous Speech Memory Description: Recent Impaired and Working Impaired Hallucinations: None Delusions: Present Thought Process: Illogical Thought Content: positive for Obsessional Thoughts, positive for Perseveration, positive for Preoccupation and positive for Suicidal Ideation (pt believes she is dying) Depressive Symptoms: Increased Anxiety, Increased Irritability, Hopelessness, Increased Fatigue, Thoughts of /Suicide (pt believes she is dying), Loss of Energy and Difficulty Concentrating Abnormal Motor Activity Signs and Symptoms: Psychomotor Retardation and Restlessness Judgement: Fair Diagnostics Vital Signs (24Hr): Vital Signs - 24 hr 06/12/23 09:20 Temperature 97.3 F Pulse Rate 126 H BMI result Body Mass Index 30.3 Labs 06/01/23 07:23 06/01/23 07:23 Medications Medications Current Medications Acetaminophen (Acetaminophen 325 Mg Tablet) 650 mg PO Q6H PRN PRN Reason: Headache/Pain Mild Scale (1-3) Last Admin: 06/02/23 10:08 Dose: 650 mg Al Hydroxide/Mg Hydroxide (Magnesium Hydrox/Alum Hydrox 30 Ml Oral.Susp) 30 ml PO Q6H PRN PRN Reason: Heartburn/Nausea Donepezil HCl (Donepezil Hcl 5 Mg Tablet) 5 mg PO BEDTIME [facility] Last Admin: 06/11/23 20:48 Dose: Not Given Doxepin HCl (Doxepin Hcl 25 Mg Capsule) 50 mg PO BEDTIME [facility] Last Admin: 06/11/23 20:48 Dose: Not Given Folic Acid (Folic Acid 1 Mg Tablet) 1 mg PO DAILY [facility] Last Admin: 06/12/23 10:35 Dose: Not Given Lorazepam (Lorazepam 0.5 Mg Tablet) 0.5 mg PO Q4H PRN PRN Reason: Anxiety Last Admin: 06/11/23 09:12 Dose: 0.5 mg Magnesium Hydroxide (Milk Of Magnesia 30 Ml Oral.Susp) 30 ml PO DAILY PRN PRN Reason: Constipation Memantine (Memantine Hcl 10 Mg Tablet) 10 mg PO BID [facility] Last Admin: 06/12/23 10:35 Dose: Not Given Pt Own (Lumateperone (21 Mg)) 21 mg PO DAILY@1700 [facility] Last Admin: 06/07/23 18:18 Dose: Not Given Propranolol HCl (Propranolol Hcl 10 Mg Tablet) 10 mg PO BID [facility]; Protocol Last Admin: 06/12/23 10:35 Dose: Not Given Quetiapine Fumarate (Quetiapine Fumarate 25 Mg Tablet) 25 mg PO Q6H PRN PRN Reason: anxiety/restlessness Last Admin: 06/09/23 14:03 Dose: 25 mg Quetiapine Fumarate (Quetiapine Fumarate 25 Mg Tablet) 25 mg PO BEDTIME [facility] Last Admin: 06/11/23 20:49 Dose: Not Given Thiamine HCl (Thiamine Hcl 100 Mg Tablet) 100 mg PO BID [facility] Last Admin: 06/12/23 10:35 Dose: Not Given Vortioxetine (Vortioxetine Hydrobromide 20 Mg Tablet) 20 mg PO DAILY [facility] Last Admin: 06/12/23 10:36 Dose: Not Given Allergies Allergies Allergy/AdvReac Type Severity Reaction Status Date / Time risperidone [From Risperdal] Allergy Intermediate UNKNOWN Verified 05/12/23 13:13 Sulfa (Sulfonamide Allergy Intermediate rash Verified 05/12/23 13:13 Antibiotics) From BENADRYL Allergy Intermediate DIZZY Uncoded 02/14/23 11:47 Assessment & Plan Assessment & Plan (1) Major depressive disorder, recurrent severe without psychotic features: Status: Acute Code(s): F33.2 - Major depressive disorder, recurrent severe without psychotic features (2) Nocturnal hypoxia: Status: Acute Code(s): G47.34 - Idiopathic sleep related nonobstructive alveolar hypoventilation (3) Has daytime drowsiness: Status: Acute Code(s): R40.0 - Somnolence Plan The patient does have significant nocturnal hypoxia based on her simplified sleep study. She will benefit from using supplemental oxygen at nighttime at 2 L/minute. Although, the patient is reluctant at this time. I will encourage her to could reconsider. The patient needs to undergo an in-lab sleep study once she is able to do so on outpatient basis. The patient should be set up with outpatient Pulmonary in order to make the arrangements for her to have the in-lab sleep study. Review historical treat from the past May have slipped it in a more in study pulmonary consult 06/03/2023 1st right unilateral treatment completed monitor response cognition 06/04/2023 Patient with history of recurrent depression had been stable for a number years on a combination of Trintellix doxepin had done well with the addition of caplyta continue ECT monitor for delirium or worsening confusion may only tolerate 2 times a week 06/09/23 Continue plan of care Should pt continue to refuse, we will need to file a Section VII and proceed for court approval of her treatment plan. 06/10/23 Refusal of treatment Section VII paperwork is completed. 06/11/[address] 06/18/23. 06/12/23 Pt will not accept treatment will testify in the hearing on 06/18/23. Reason for continued inpatient stay Substantial Risk for: rapid decompensation and med/psych decompensation Time Spent With Patient Time: Total time managing care of this patient today ____ minutes.
--- NOTE | 2023-06-12 19:45 | PC.NURSE ---
Assumed care of pt at 19:00, pt currently in bed with eyes open, resp even and unlabored, in no apparent distress. Offers no complaints at this time. Plan of care ongoing.
--- NOTE | 2023-06-13 15:45 | HO.PSYCHPN ---
Subjective Subjective Date of Service: 06/14/23 Reason For Visit: Severe Depression Agitation Subjective Notes: Section 7 Interim History: Pt now on one to one. Disrobing in milieu. Refusing food and fluid. Refusing vital signs, unsteady on her feet. Agitated, tachycardia and hypoxic this a.m. Seen by hospitalist team. Diagnostics ordered/pending. Encouraged intake. Pt without interest, watching TV with her one to one. Medication Compliance: No Attending Groups: No Review of Systems Seen by hospitalist team this a.m. Review of Systems Review of Systems Yes Unobtainable due to mental status Mental Status Exam Mental Status Exam Patient Appearance: Unkempt Patient Orientation: Person, Place and Situation Level of Consciousness: Awake and Restless Patient Behavior: Guarded, Suspicious, Restless, Anxious, Resistive to Care, Fatigued, Distractible, Good Eye Contact and Uncooperative Mood Description: Withdrawn, Depressed, Anxious, Blunted, Angry, Flat and Apprehensive Affect Description: Constricted, Labile, Angry and Apprehensive Patient Cognition Impaired: Yes Ability to Follow Directions: Fair Speech Pattern: Perseverating and Spontaneous Speech Memory Description: Recent Impaired and Working Impaired Hallucinations: None Delusions: Present Thought Process: Illogical Thought Content: positive for Obsessional Thoughts, positive for Perseveration, positive for Preoccupation and positive for Suicidal Ideation (pt believes she is dying) Depressive Symptoms: Increased Anxiety, Increased Irritability, Hopelessness, Increased Fatigue, Thoughts of /Suicide (pt believes she is dying), Loss of Energy and Difficulty Concentrating Abnormal Motor Activity Signs and Symptoms: Psychomotor Retardation and Restlessness Judgement: Fair Diagnostics Vital Signs (24Hr): BMI result Body Mass Index 30.3 Labs 06/01/23 07:23 06/01/23 07:23 Medications Medications Current Medications Acetaminophen (Acetaminophen 325 Mg Tablet) 650 mg PO Q6H PRN PRN Reason: Headache/Pain Mild Scale (1-3) Last Admin: 06/02/23 10:08 Dose: 650 mg Al Hydroxide/Mg Hydroxide (Magnesium Hydrox/Alum Hydrox 30 Ml Oral.Susp) 30 ml PO Q6H PRN PRN Reason: Heartburn/Nausea Donepezil HCl (Donepezil Hcl 5 Mg Tablet) 5 mg PO BEDTIME [facility] Last Admin: 06/12/23 21:26 Dose: Not Given Doxepin HCl (Doxepin Hcl 25 Mg Capsule) 50 mg PO BEDTIME [facility] Last Admin: 06/12/23 21:26 Dose: Not Given Folic Acid (Folic Acid 1 Mg Tablet) 1 mg PO DAILY [facility] Last Admin: 06/12/23 10:35 Dose: Not Given Lorazepam (Lorazepam 0.5 Mg Tablet) 0.5 mg PO Q4H PRN PRN Reason: Anxiety Last Admin: 06/11/23 09:12 Dose: 0.5 mg Magnesium Hydroxide (Milk Of Magnesia 30 Ml Oral.Susp) 30 ml PO DAILY PRN PRN Reason: Constipation Memantine (Memantine Hcl 10 Mg Tablet) 10 mg PO BID [facility] Last Admin: 06/12/23 21:26 Dose: Not Given Pt Own (Lumateperone (21 Mg)) 21 mg PO DAILY@1700 [facility] Last Admin: 06/07/23 18:18 Dose: Not Given Propranolol HCl (Propranolol Hcl 10 Mg Tablet) 10 mg PO BID [facility]; Protocol Last Admin: 06/12/23 21:26 Dose: Not Given Quetiapine Fumarate (Quetiapine Fumarate 25 Mg Tablet) 25 mg PO Q6H PRN PRN Reason: anxiety/restlessness Last Admin: 06/09/23 14:03 Dose: 25 mg Quetiapine Fumarate (Quetiapine Fumarate 25 Mg Tablet) 25 mg PO BEDTIME [facility] Last Admin: 06/12/23 21:26 Dose: Not Given Thiamine HCl (Thiamine Hcl 100 Mg Tablet) 100 mg PO BID [facility] Last Admin: 06/12/23 21:26 Dose: Not Given Vortioxetine (Vortioxetine Hydrobromide 20 Mg Tablet) 20 mg PO DAILY [facility] Last Admin: 06/12/23 10:36 Dose: Not Given Allergies Allergies Allergy/AdvReac Type Severity Reaction Status Date / Time risperidone [From Risperdal] Allergy Intermediate UNKNOWN Verified 05/12/23 13:13 Sulfa (Sulfonamide Allergy Intermediate rash Verified 05/12/23 13:13 Antibiotics) From BENADRYL Allergy Intermediate DIZZY Uncoded 02/14/23 11:47 Assessment & Plan Assessment & Plan (1) Major depressive disorder, recurrent severe without psychotic features: Status: Acute Code(s): F33.2 - Major depressive disorder, recurrent severe without psychotic features (2) Nocturnal hypoxia: Status: Acute Code(s): G47.34 - Idiopathic sleep related nonobstructive alveolar hypoventilation (3) Has daytime drowsiness: Status: Acute Code(s): R40.0 - Somnolence Plan The patient does have significant nocturnal hypoxia based on her simplified sleep study. She will benefit from using supplemental oxygen at nighttime at 2 L/minute. Although, the patient is reluctant at this time. I will encourage her to could reconsider. The patient needs to undergo an in-lab sleep study once she is able to do so on outpatient basis. The patient should be set up with outpatient Pulmonary in order to make the arrangements for her to have the in-lab sleep study. Review historical treat from the past May have slipped it in a more in study pulmonary consult 06/03/2023 1st right unilateral treatment completed monitor response cognition 06/04/2023 Patient with history of recurrent depression had been stable for a number years on a combination of Trintellix doxepin had done well with the addition of caplyta continue ECT monitor for delirium or worsening confusion may only tolerate 2 times a week 06/09/23 Continue plan of care Should pt continue to refuse, we will need to file a Section VII and proceed for court approval of her treatment plan. 06/10/23 Refusal of treatment Section VII paperwork is completed. 06/11/[address] 06/18/23. 06/12/23 Pt will not accept treatment will testify in the hearing on 06/18/23. 06/14/23 Pending diagnostics. Pt may require a medical admission prior to court given noncompliance, poor intake and refusal of care. Informed Consent: does not understand Reason for continued inpatient stay Substantial Risk for: med/psych decompensation Time Spent With Patient Time: Total time managing care of this patient today ____ minutes.
[2023-06-13 18:00] VITALS: BP 140/97; PULSE 108; RESP 20
[2023-06-14 06:00] VITALS: BP 207/123; PULSE 153; RESP 20; O2SAT 91
--- NOTE | 2023-06-14 07:44 | PM.EVENT ---
Event Note Date of Service: 06/14/23 Event Note: called for agitation, hypoxia, tachycardia patient appears comfortable sitting watching television, increased rigidity, tremors, not cooperative with history lungs clear, pulse rapid regular around 130 saturation 97 on room air confused no konwn medically hsitory suspect med effect check ekg, cxr, cbc, bmp, lfts, trop, ddimer, ua, flu/covid/rsv appears stable continue to monitor on M5 Time Spent With Patient Time: Total time managing care of this patient today ____ minutes.
--- NOTE | 2023-06-14 15:16 | PC.NURSE ---
PT REFUSED BLOOD WORK, VITALS, MEDICATIONS, EKG, AND XRAY.
--- NOTE | 2023-06-14 16:36 | HO.PSYCHPN ---
Subjective Subjective Date of Service: 06/13/23 Reason For Visit: Severe Depression Agitation Subjective Notes: Section 7 Interim History: Disrobing, confused, agitated, anxious, not possible to console, poor med compliance, poor intake. Five minute checks Refusing almost all care and efforts to assist her at this time. Medication Compliance: No Side effects from medications: No Attending Groups: No Review of Systems poor appetite poor hygiene refusal of efforts to provide care Medical Review of Systems: unchanged Review of Systems Review of Systems Yes Unobtainable due to mental status Mental Status Exam Mental Status Exam Patient Appearance: Unkempt Patient Orientation: Person, Place and Situation Level of Consciousness: Awake and Restless Patient Behavior: Guarded, Suspicious, Restless, Anxious, Resistive to Care, Fatigued, Distractible, Good Eye Contact and Uncooperative Mood Description: Withdrawn, Depressed, Anxious, Blunted, Angry, Flat and Apprehensive Affect Description: Constricted, Labile, Angry and Apprehensive Patient Cognition Impaired: Yes Ability to Follow Directions: Fair Speech Pattern: Perseverating and Spontaneous Speech Memory Description: Recent Impaired and Working Impaired Hallucinations: None Delusions: Present Thought Process: Illogical Thought Content: positive for Obsessional Thoughts, positive for Perseveration, positive for Preoccupation and positive for Suicidal Ideation (pt believes she is dying) Depressive Symptoms: Increased Anxiety, Increased Irritability, Hopelessness, Increased Fatigue, Thoughts of /Suicide (pt believes she is dying), Loss of Energy and Difficulty Concentrating Abnormal Motor Activity Signs and Symptoms: Psychomotor Retardation and Restlessness Judgement: Fair Diagnostics Vital Signs (24Hr): Vital Signs - 24 hr 06/13/23 18:00 06/14/23 06:00 Pulse Rate 108 H 153 H Respiratory Rate 20 20 Blood Pressure 140/97 H 207/123 H Pulse Oximetry 91 L Oxygen Delivery Method Room Air BMI result Body Mass Index 30.3 Labs 06/01/23 07:23 06/01/23 07:23 Medications Medications Current Medications Acetaminophen (Acetaminophen 325 Mg Tablet) 650 mg PO Q6H PRN PRN Reason: Headache/Pain Mild Scale (1-3) Last Admin: 06/02/23 10:08 Dose: 650 mg Al Hydroxide/Mg Hydroxide (Magnesium Hydrox/Alum Hydrox 30 Ml Oral.Susp) 30 ml PO Q6H PRN PRN Reason: Heartburn/Nausea Donepezil HCl (Donepezil Hcl 5 Mg Tablet) 5 mg PO BEDTIME [facility] Last Admin: 06/13/23 21:54 Dose: Not Given Doxepin HCl (Doxepin Hcl 25 Mg Capsule) 50 mg PO BEDTIME [facility] Last Admin: 06/13/23 21:54 Dose: Not Given Folic Acid (Folic Acid 1 Mg Tablet) 1 mg PO DAILY [facility] Last Admin: 06/14/23 10:17 Dose: Not Given Lorazepam (Lorazepam 0.5 Mg Tablet) 0.5 mg PO Q4H PRN PRN Reason: Anxiety Last Admin: 06/11/23 09:12 Dose: 0.5 mg Magnesium Hydroxide (Milk Of Magnesia 30 Ml Oral.Susp) 30 ml PO DAILY PRN PRN Reason: Constipation Memantine (Memantine Hcl 10 Mg Tablet) 10 mg PO BID [facility] Last Admin: 06/14/23 10:17 Dose: Not Given Pt Own (Lumateperone (21 Mg)) 21 mg PO DAILY@1700 [facility] Last Admin: 06/07/23 18:18 Dose: Not Given Propranolol HCl (Propranolol Hcl 10 Mg Tablet) 10 mg PO BID [facility]; Protocol Last Admin: 06/14/23 10:18 Dose: Not Given Quetiapine Fumarate (Quetiapine Fumarate 25 Mg Tablet) 25 mg PO Q6H PRN PRN Reason: anxiety/restlessness Last Admin: 06/09/23 14:03 Dose: 25 mg Quetiapine Fumarate (Quetiapine Fumarate 25 Mg Tablet) 25 mg PO BEDTIME [facility] Last Admin: 06/13/23 21:54 Dose: Not Given Thiamine HCl (Thiamine Hcl 100 Mg Tablet) 100 mg PO BID [facility] Last Admin: 06/14/23 10:18 Dose: Not Given Vortioxetine (Vortioxetine Hydrobromide 20 Mg Tablet) 20 mg PO DAILY [facility] Last Admin: 06/14/23 10:18 Dose: Not Given Allergies Allergies Allergy/AdvReac Type Severity Reaction Status Date / Time risperidone [From Risperdal] Allergy Intermediate UNKNOWN Verified 05/12/23 13:13 Sulfa (Sulfonamide Allergy Intermediate rash Verified 05/12/23 13:13 Antibiotics) From BENADRYL Allergy Intermediate DIZZY Uncoded 02/14/23 11:47 Assessment & Plan Assessment & Plan (1) Major depressive disorder, recurrent severe without psychotic features: Status: Acute Code(s): F33.2 - Major depressive disorder, recurrent severe without psychotic features (2) Nocturnal hypoxia: Status: Acute Code(s): G47.34 - Idiopathic sleep related nonobstructive alveolar hypoventilation (3) Has daytime drowsiness: Status: Acute Code(s): R40.0 - Somnolence Plan The patient does have significant nocturnal hypoxia based on her simplified sleep study. She will benefit from using supplemental oxygen at nighttime at 2 L/minute. Although, the patient is reluctant at this time. I will encourage her to could reconsider. The patient needs to undergo an in-lab sleep study once she is able to do so on outpatient basis. The patient should be set up with outpatient Pulmonary in order to make the arrangements for her to have the in-lab sleep study. Review historical treat from the past May have slipped it in a more in study pulmonary consult 06/03/2023 1st right unilateral treatment completed monitor response cognition 06/04/2023 Patient with history of recurrent depression had been stable for a number years on a combination of Trintellix doxepin had done well with the addition of caplyta continue ECT monitor for delirium or worsening confusion may only tolerate 2 times a week 06/09/23 Continue plan of care Should pt continue to refuse, we will need to file a Section VII and proceed for court approval of her treatment plan. 06/10/23 Refusal of treatment Section VII paperwork is completed. 06/11/[address] 06/18/23. 06/12/23 Pt will not accept treatment will testify in the hearing on 06/18/23. 06/13/[address] 06/18 Informed Consent: does not understand Reason for continued inpatient stay Substantial Risk for: med/psych decompensation Time Spent With Patient Time: Total time managing care of this patient today ____ minutes.
--- NOTE | 2023-06-14 17:11 | PC.NURSE ---
laboratory called to report critical lactic acid of 4.3. CAW notified via tiger text, awaiting hospitalist orders.
--- NOTE | 2023-06-14 17:27 | PC.NURSE ---
lab called with critical troponin of 70. CAW notified as well as hospitalist
[2023-06-14 17:40] VITALS: BP 133/90; PULSE 122; RESP 18; TEMP 36.2
--- NOTE | 2023-06-14 17:54 | P.DS_ITS ---
DS: Providers Provider Date of Service: 06/14/23 Date of admission: 05/25/23 14:19 Date of discharge: 06/14/23 Primary care physician: Brittany Medina MD Admitting clinician: Broderick Willett Attending physician on admission: Broderick Willett Consults: 05/31/23 16:07 Consult to Hospitalist Routine Comment: Consulting Provider: Hospitalist Reason For Exam: preop ect 06/01/23 11:18 Consult to Pulmonology Routine Consulting Provider: [facility] Pulmonology Services Reason for consultation: NIGHTTIME HYPOXIA Has provider been notified: No 06/14/23 17:11 Consult to Hospitalist Stat Comment: Seen this a.m. Consulting Provider: Hospitalist Reason For Exam: Lactic Acid 4.3, High WBC, ?need for med transfer Attending physician on discharge: Broderick Willett Discharging clinician: Unique Ramey DS: Diagnosis Discharge Diagnosis (1) Major depressive disorder, recurrent severe without psychotic features: Status: Acute (2) Nocturnal hypoxia: Status: Acute DS: Medications Discharge Medications Home Medications: Home Medications Medication Instructions Recorded Confirmed lorazepam 0.5 mg tablet 0.25 - 0.5 mg PO TID PRN ANIXETY 05/21/23 05/21/23 Previous Rx's Medication Instructions Recorded thiamine HCl (vitamin B1) 100 mg 100 mg PO BID 90 days #180 tabs 12/22/22 tablet vortioxetine 20 mg tablet 20 mg PO DAILY #90 tabs 01/23/23 (Trintellix) zolpidem 6.25 mg tablet,extended 6.25 mg PO BEDTIME #30 tabs 03/02/23 release,multiphase memantine 5 mg tablet 5 mg PO BID #180 tabs 03/11/23 lumateperone 21 mg capsule 21 mg PO DAILY #30 caps 05/08/23 doxepin 25 mg capsule 100 mg (4 x 25 mg) PO BEDTIME 30 05/15/23 days #120 caps donepezil 5 mg tablet 5 mg PO BEDTIME #90 tabs 05/18/23 lumateperone 10.5 mg capsule 10.5 mg PO DAILY #30 caps 05/26/23 (Caplyta) folic acid 1 mg tablet 1 mg PO DAILY #90 tabs 06/02/23 Mental Status Exam Mental Status Exam Patient Appearance: Unkempt Patient Orientation: Person, Place and Situation Level of Consciousness: Awake and Restless Patient Behavior: Guarded, Suspicious, Restless, Anxious, Resistive to Care, Fatigued, Distractible, Good Eye Contact and Uncooperative Mood Description: Withdrawn, Depressed, Anxious, Blunted, Angry, Flat and Apprehensive Affect Description: Constricted, Labile, Angry and Apprehensive Patient Cognition Impaired: Yes Ability to Follow Directions: Fair Speech Pattern: Perseverating and Spontaneous Speech Memory Description: Recent Impaired and Working Impaired Hallucinations: None Delusions: Present Thought Process: Illogical Thought Content: positive for Obsessional Thoughts, positive for Perseveration, positive for Preoccupation and positive for Suicidal Ideation (pt believes she is dying) Depressive Symptoms: Increased Anxiety, Increased Irritability, Hopelessness, Increased Fatigue, Thoughts of /Suicide (pt believes she is dying), Loss of Energy and Difficulty Concentrating Abnormal Motor Activity Signs and Symptoms: Psychomotor Retardation and Restlessness Judgement: Fair Data Data Completed and Pending Completed studies during hospitalization [Text1]: 06/14/23 16:49 WBC 20.7 H RBC 5.59 H Hgb 17.0 H Hct 51.3 H MCV 91.8 MCH 30.4 MCHC 33.1 RDW 15.1 Plt Count 301 D MPV 11.6 Immature Gran % (Auto) 0.6 H Neut % (Auto) 85.0 H Lymph % (Auto) 5.4 L [place] % (Auto) 8.8 Eos % (Auto) 0.1 Baso % (Auto) 0.1 Lymph # (Auto) 1.1 L [place] # (Auto) 1.8 H Eos # (Auto) 0.0 Baso # (Auto) 0.0 Abs Immat Gran (auto) 0.12 H Absolute Neuts (auto) 17.6 H Absolute Nucleated RBC 0.000 Nucleated RBC % (auto) 0.0 Smear Tech's Comments VERIFIED D-Dimer High Sensitivty 574 Sodium 150 H Potassium 4.8 Chloride 108 Carbon Dioxide 22 Anion Gap 25 H BUN 59 H Creatinine 1.66 H Estim Creat Clear Calc 27.1 Estimated GFR 30 Random Glucose 120 H Estimat Average Glucose 111 Hemoglobin A1c % 5.5 Lactic Acid 4.3 H* Calcium 11.2 H D Magnesium Pending Total Bilirubin 1.3 H Direct Bilirubin 0.4 AST 54 H ALT 66 H Alkaline Phosphatase 75 Troponin I High Sens 70.0 H* D Total Protein 8.5 H Albumin 4.2 TSH Pending Free T4 Pending 05/21/23 Unknown Urine clean catch - Urine medina top Urine Culture - Final DS: Summary Hospital Course Hospital Course: 72 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 By history, ECT, Trintellix, Doxepin, Caplyta combination have been helpful. Pt admitted with anxiety, racing thoughts and insomnia. She was ruminating, having catastrophic thoughts, feeling hopeless, helpless and more anxious along with racing thoughts and insomnia. She identified a possible stressor as her having a new symptoms of auditory perceptual alterations and being in process of having an assessment for a neurological illness. Pt was admitted to Dr. Willett's service. Medications were reviewed and adjusted. ECT clearance was obtained and pt had her first treatment on 06/03/23. After this, Dr. Willett initiated an BRISA and pt became distressed that others were covering for him. She refused ECT on 06/05/23 and thereafter and began to refuse medications, food, fluids and care. TW filed Section 7 [address] was [address] a [address] date for committment heariing on 06/18/23. Pt has had persistant worsening of her symptoms since that time with medical complications this weekend. She was seen by Dr. Parkinson this a.m. Diagnostics were completed with great resistance by patient and when they returned it was decided to transfer pt to [facility]. Time spent discussing smoking cessation with patient: 3 to 10 minutes Status at Discharge Functional status at discharge: bed bound Overall status at discharge: patient is not back to baseline Time Spent with Patient Time attestation: Total time managing care of this patient today ____ minutes. Time spent: Greater than 30 minutes Discharge Plan Discharge Anticipated Discharge Date/Time: 06/14/23 17:43 Patient Disposition: Xfer Acute Care Hospital Discharge Diagnosis: Elevated lactic acid/troponin levels, R/O Sepsis Referrals: Brittany Tinajero MD [Primary Care Provider] - 1 Week Discharge Medications: New quetiapine 25 mg Tablet 25 mg PO BEDTIME Qty: 0 0RF quetiapine 25 mg Tablet 25 mg PO Q6H PRN (Reason: Anxiety/Restlessness) Qty: 0 0RF acetaminophen 325 mg Tablet 650 mg PO Q6H PRN (Reason: Headache/Pain Mild Scale (1-3)) Qty: 0 0RF donepezil 5 mg Tablet 5 mg PO BEDTIME Qty: 0 0RF propranolol 10 mg Tablet 10 mg PO BID Qty: 0 0RF Protocol: Hold for SBP/HR < HOLD for SBP < : 90 HOLD for HR < : 60 lorazepam 0.5 mg Tablet 0.5 mg PO Q4H PRN (Reason: Anxiety) Qty: 0 0RF magnesium hydroxide [Milk of Magnesia] 400 mg/5 mL Suspension 30 ml PO DAILY PRN (Reason: Constipation) Qty: 0 0RF nystatin 100,000 unit/gram Cream 1 appl topical BID Qty: 0 0RF Protocol: Apply to: Apply to: affected areas behind her knees MAG-AL 200-200 mg/5 mL Suspension 30 ml PO Q6H PRN (Reason: Heartburn/Nausea) Qty: 0 0RF thiamine mononitrate (vit B1) 100 mg Tablet 100 mg PO BID Qty: 0 0RF Continued Trintellix 20 mg tablet 20 mg PO DAILY Qty: 90 1RF zolpidem 6.25 mg tablet,ext release multiphase 6.25 mg PO BEDTIME Qty: 30 2RF memantine 5 mg tablet 5 mg PO BID Qty: 180 1RF lumateperone 21 mg capsule 21 mg PO DAILY Qty: 30 2RF doxepin 25 mg capsule 100 mg PO BEDTIME 30 Days Qty: 120 2RF Caplyta 10.5 mg capsule 10.5 mg PO DAILY Qty: 30 2RF Rx Instructions: 1 daily added to 21 mg dose folic acid 1 mg tablet 1 mg PO DAILY Qty: 90 1RF Discontinued thiamine HCl (vitamin B1) 100 mg tablet 100 mg PO BID 90 Days Qty: 180 1RF donepezil 5 mg tablet 5 mg PO BEDTIME Qty: 90 0RF lorazepam 0.5 mg tablet 0.25 - 0.5 mg PO TID PRN (Reason: ANIXETY) Rx Instructions: take 1/2 to one tab up to 3 times daily as needed for anxiety, try to use only 1/2 tab; Discharge Orders: Discharge Order (Routine); Ordered 06/14/23 Ordered By: Unique Ramey Diet: Advance to usual diet Activity on Discharge: No Restrictions Stand Alone Forms: Patient Portal Discharge page, Community Support Care Plan Goals: Medical Stabilization Health Concerns: Elevated labs, critical lactic acid and troponins this evening. Refusal of medications and treatment for several days. Refusal of ECT which had started last week. Hypoxia Tachycardia Plan of Treatment: Medical transfer Assessment: On one to one special for safety and support. Refusing of care and treatment. Refuses food/fluids Intermittent agitation, disrobing Critical labs returned this evening.
--- NOTE | 2023-06-14 17:56 | PC.NURSE ---
critical magnesium thad called in by lab of 3.6 - CAW & Ling Rojo made aware
== END 2023-06-14 18:31 | disposition short-term general hospital (02) | DRG 885 ==
LOC: HO.ED 05-22 13:36 → HO.PM5 05-25 14:27
PROVIDERS: Registered Nurse Emergency; Admitting Provider Psychiatry & Neurology Psychiatry; Emergency Provider Emergency Medicine Emergency Medical Services; PCP Internal Medicine; Visit Provider Clinical Nurse Specialist Psychiatric/Mental Health, Adult
PROC: GZB4ZZZ Other Electroconvulsive Therapy (ICD-10-PCS; CPT 90870; principal; 2023-06-03 09:00)
DX: F33.2 Major depressive disorder, recurrent severe without psychotic features (principal); G47.00 Insomnia, unspecified; R40.0 Somnolence; G47.34 Idiopathic sleep related nonobstructive alveolar hypoventilation; R00.0 Tachycardia, unspecified; F41.1 Generalized anxiety disorder; Z20.822 Contact with and (suspected) exposure to COVID-19; Z79.899 Other long term (current) drug therapy
CPT/HCPCS: 36415; 72100; 80048; 80053; 80061; 80076; 80143; 80179; 80307; 81001; 82947; 83036; 83605; 83735; 84439; 84443; 84484; 85025; 85379; 87086; 87088; 87186; 87502; 87635; 90870; 93005; 95806; 99285; J0330; J1805; J2704; J7120; S9485

== ENCOUNTER → 2023-05-23 21:00 | Outpatient (BNV) | payer MEDICARE, SELFPAY | PROVIDERS: Admitting Provider Psychiatry & Neurology Psychiatry; Emergency Provider Emergency Medicine Emergency Medical Services; PCP Internal Medicine; Visit Provider Internal Medicine | DX: R06.83 Snoring (principal) | CPT/HCPCS: 95806 ==

== ENCOUNTER → 2023-05-25 09:19 | Outpatient (BNV) | payer MEDICARE, SELFPAY | PROVIDERS: Emergency Provider Emergency Medicine Emergency Medical Services; PCP Internal Medicine; Visit Provider Internal Medicine Cardiovascular Disease | DX: R94.31 Abnormal electrocardiogram [ECG] [EKG] (principal) | CPT/HCPCS: 93010 ==

== ENCOUNTER → 2023-05-25 14:19 | Outpatient (BNV) | payer MEDICARE, SELFPAY | PROVIDERS: Admitting Provider Psychiatry & Neurology Psychiatry; Emergency Provider Emergency Medicine Emergency Medical Services; PCP Internal Medicine; Visit Provider Hospitalist | DX: G47.34 Idiopathic sleep related nonobstructive alveolar hypoventilation (principal); R40.0 Somnolence; G47.00 Insomnia, unspecified | CPT/HCPCS: 99223 ==

== ENCOUNTER → 2023-05-25 14:19 | Outpatient (BNV) | payer MEDICARE, SELFPAY | PROVIDERS: Admitting Provider Psychiatry & Neurology Psychiatry; Emergency Provider Emergency Medicine Emergency Medical Services; PCP Internal Medicine; Visit Provider Student in an Organized Health Care Education/Training Program | DX: Z01.818 Encounter for other preprocedural examination (principal) | CPT/HCPCS: 99429; 99499 ==

== ENCOUNTER → 2023-05-25 14:19 | Outpatient (BNV) | payer MEDICARE, SELFPAY | PROVIDERS: Admitting Provider Psychiatry & Neurology Psychiatry; Emergency Provider Emergency Medicine Emergency Medical Services; PCP Internal Medicine; Visit Provider Psychiatry & Neurology Psychiatry | DX: F33.2 Major depressive disorder, recurrent severe without psychotic features (principal); G47.34 Idiopathic sleep related nonobstructive alveolar hypoventilation; R40.0 Somnolence | CPT/HCPCS: 90792; 90870; 99231; 99232 ==

== ENCOUNTER → 2023-05-25 14:19 | Outpatient (BNV) | payer MEDICARE, SELFPAY, MEDICAID | PROVIDERS: Admitting Provider Psychiatry & Neurology Psychiatry; Emergency Provider Emergency Medicine Emergency Medical Services; PCP Internal Medicine; Visit Provider Clinical Nurse Specialist Psychiatric/Mental Health, Adult | DX: F33.2 Major depressive disorder, recurrent severe without psychotic features (principal); G47.34 Idiopathic sleep related nonobstructive alveolar hypoventilation | CPT/HCPCS: 99231; 99232; 99239; 99499 ==

== ENCOUNTER 2023-06-14 18:14 | Inpatient (IN) | payer MEDICARE, SELFPAY ==
--- NOTE | ~2023-06-14 | CT_ITS ---
EXAMINATION: CT HEAD WITHOUT CONTRAST CLINICAL INFORMATION: Toxic metabolic encephalopathy COMPARISON: None available. TECHNIQUE: Contiguous axial imaging was performed from the skull base to vertex without intravenous administration of contrast. This CT examination was performed using dose optimization techniques as appropriate, variously including the following: *Automated exposure control *Adjustment of mA and/or kV according to patient size (this includes techniques or standardized protocols for targeted exams where dose is matched to indication/reason for exam; i.e. extremities or head) *Use of iterative reconstruction technique DLP: 1344 mGy-cm FINDINGS: There is no acute intra-axial, extra-axial bleed, masses or midline shift. There is no acute infarction evolution. There is no edema. The lateral ventricles are symmetrical in size and configuration but enlarged. Bone windows reveal no calvarial abnormality. There is no scalp soft tissue abnormality. Bilateral paranasal sinuses and mastoid air cells are well-aerated. CT/CT head/brain wo IV con IMPRESSION: 1. No acute intracranial process seen. 2. Age-related cerebral volume loss.
--- NOTE | 2023-06-14 18:28 | PM.IMHP ---
History of Present Illness Date of Service: 06/14/23 Attending physician on admission: [facility] Chief Complaint: AMS, LAYO, abnormal labs Pt is a 72-year-old female with a PMH significant for?unspecified mild dementia/cognitive impairment, MDD, and POONAM who was admitted to psych unit?for increasing depression and agitation. On the unit patient has been steadily declining for the past week. Has been refusing medications, ECT treatment, and becoming more agitated and hopeless, and moving away from reality. Patient has been noted to be incontinent of urine in the bathroom, repeatedly stating that ?I am dying? or ?I am ?, an inappropriately urinated and disrobed in the milieu. For the past few days patient has been refusing food and fluid. Was noted to be agitated and tachycardic. Hospitalist consult was made and labs and imaging were ordered this morning, but patient refused all treatment or diagnostics. Labs were finally obtained this evening which were significant for leukocytosis of 20.7, elevated D-dimer, sodium of 150, BUN 59, creatinine 1.66, lactic acid 4.3, magnesium 3.6, bilirubin 1.3, AST 54, ALT 66, and troponin 70.0. Pt seen and examined beside where she appears agitated and altered, alert and oriented to self and place only, not to time or situation. Pt was occasionally moaning and kicking out her legs, unable to provide accurate HPI. She complained about her bones but could not further clarify her complaint. Pt will be brought to the medical floor for treatment and further evaluation of altered mental status, LAYO, and other abnormal labs. Review of Systems Review of Systems: Unable to obtain due to patient's mentation [facility] Medical History (Updated 06/14/23 @ 19:22 by DANTE Matias) Has daytime drowsiness Nocturnal hypoxia Preoperative examination Elevated glucose Screening for colon cancer Screening for diabetes mellitus Obesity (BMI 30-39.9) Confused but orients easily Depression, major, severe recurrence Abnormal serum protein electrophoresis Mild recurrent major depression Anxiety and depression Encounter for Medicare annual wellness exam Removal of nell Depression with anxiety Abdominal distention Weight gain Major depression, recurrent, full remission POONAM (generalized anxiety disorder) Hypothyroidism Hyperparathyroidism Multinodular thyroid Vitamin D deficiency Osteoporosis Family History Father Myocardial infarction CVD (cardiovascular disease) Mother Dementia Alzheimer disease Other Mental health disorder Surgical History Hx of colonoscopy Hx of kyphoplasty Hx of section Social History Household Members: Spouse Housing: House Do you presently have visiting nurse or other home services: No Alcohol intake: never Comment: sitter at bedside Patient Tobacco Use Status: Never used Tobacco e-Cigarette/Vaping Use: Never Used Second Hand Smoke Exposure: No Use of substances other than those prescribed or required for medical reasons: No Currently Displaying Signs/Symptoms of Drug Intoxication Withdrawal: No Have you been hit, kicked, punched, or otherwise hurt by someone within the past year? If so, by whom?: No Do you feel safe in your current relationship?: Yes Is there a partner from a previous relationship who is making you feel unsafe now?: No Are you made to feel afraid or neglected: No Advance Directives: No Advance Directives Information Provided: No Do you have thoughts of harming others: None Do you have a plan to hurt others: No Plan Recently lost weight without trying: No Patient : No service: No Current occupational status: unemployed Sexual orientation: Straight/Heterosexual Cognitive needs: No Hearing needs: No Meds Allergies Allergy/AdvReac Type Severity Reaction Status Date / Time risperidone [From Risperdal] Allergy Intermediate UNKNOWN Verified 05/12/23 13:13 Sulfa (Sulfonamide Allergy Intermediate rash Verified 05/12/23 13:13 Antibiotics) From BENADRYL Allergy Intermediate DIZZY Uncoded 02/14/23 11:47 Active Medications: Current Medications Docusate Sodium (Docusate Sodium 100 Mg Capsule) 100 mg PO DAILY PRN PRN Reason: Constipation Heparin Sodium (Porcine) (Heparin Sodium,Porcine 5,000 Unit/Ml Vial) 5,000 unit SUBCUT Q8H BARRY Dextrose (D5w) 1,000 mls @ 150 mls/hr IVCONT .Q6H40M BARRY Sodium Chloride (0.9 % Sodium Chloride Flush 3 Ml Syringe) 3 ml IVFLUSH QSHIFT [facility] Home Medications Medication Instructions Recorded Confirmed Last Taken Type doxepin 25 mg capsule 50 mg PO BEDTIME 06/15/23 06/15/23 Unknown History lumateperone 21 mg capsule 21 mg PO DAILY@1700 06/15/23 06/15/23 Unknown History memantine 5 mg tablet 10 mg PO BID 06/15/23 06/15/23 Unknown History Physical Exam Vital Signs and Narrative: Constitutional: Alert, agitated, restless, confused, constantly kicking out legs. In no acute distress. Mental Status: Oriented to person and place, not to time or situation. Eyes: Pupils are equal, round, and reactive to light. Ear, Nose, and Throat: Oropharynx clear, mucous membranes dry. Ears and nose without deformities. Trachea midline. Respiratory: Clear to auscultation bilaterally. No wheezing, rales, or rhonchi. Cardiovascular: S1, S2, tachycardic. No murmurs, rubs, or gallops. Gastrointestinal: Abdomen soft, non-tender, non-distended. Normal bowel sounds. Neurologic: Cranial nerves II-XII are grossly intact bilaterally. No focal neurological deficits. Moves all extremities spontaneously. Skin: Warm, dry. Musculoskeletal: No cyanosis or clubbing. Extremities: No edema. Psychiatric: Confused, agitated, restless. Results Labs 06/15/23 10:53 06/15/23 10:53 Assessment and Plan (1) Altered mental status: Status: Acute (2) Lactic acidosis: Status: Acute (3) LAYO (acute kidney injury): Status: Acute Plan Pt is a 72-year-old female with a PMH significant for?unspecified mild dementia/cognitive impairment, MDD, and POONAM who was admitted to [facility] psych unit?for increasing depression and agitation. On the unit patient has been steadily declining for the past week. Has been refusing medications, ECT treatment, and becoming more agitated and hopeless, and moving away from reality. Pt will be brought to the medical floor for treatment and further evaluation of altered mental status, LAYO, and other abnormal labs. LAYO Patient's creatinine 1.66, up from 0.90 on 06/01/2023 Likely secondary to dehydration from decreased p.o. intake Patient has not been eating or drinking much for the past few days on the psych unit Patient will be placed on D5W 150 mls/hr Follow BMP Altered mental status Pt with some degree of cognitive impairment on memantine and donepezil Has been more confused, refusing meds, treatment, imaging, vitals, food and drink, etc past few days Unclear etiology: will check UA, CXR, COVID/Flu/RSV, TSH, liver panel, ammonia Continue donepezil, memantine SIRS criteria Pt meets SIRS criteria but no sepsis: currently no clear source of infection Tachycardia, taqchypnea, leukocytosis secondary to LAYO and dehydration, not infection; pt afebrile Will place on IVF Will check UA, CXR, COVID/Flu/RSV Lactic acidosis Lactic acid elevated at 4.3 Likely secondary to dehydration, not sepsis: No clear source of infection Patient placed on D5W 150 mls/hr Will follow lactic acid Hypernatremia Likely secondary to dehydration Will treat with D5W 150 mls/hr Follow BNP Hypermagnesmia Likely secondary to hemoconcentration secondary to dehydration Follow Mag Elevated troponin Troponin 70.0 Likely type 2 in the setting of increased demand due to LAYO/dehydration Check EKG Will repeat troponin Monitor on telemetry Transaminitis AST 54, ALT 66 Likely secondary to LAYO/dehydration Follow CMP Mood disorder Continue home meds HTN Continue home meds Full Code Attending:?Dr. Silver DVT Prophylaxis: Heparin Pt will require a hospitalization of at least two nights for treatment of?altered mental status, LAYO, numerous other lab abnormalities, and failure to thrive. Patient be treated with IVF, further imaging and testing, and close monitoring of labs. Quality Stroke Does the patient have a stroke diagnosis?: No VTE Prior VTE?: No VTE Risk Level:: Medical - moderate - high VTE Device Contraindication: Treatment Not Indicated VTE Drug Contraindication: N/A - Med Ordered
[2023-06-14 20:00] VITALS: BP 125/60; PULSE 120; RESP 19; TEMP 37.6; O2SAT 95
[2023-06-15] VITALS (7 sets, daily range): BP systolic 138–162; BP diastolic 68–92; PULSE 95–134; RESP 18–26; TEMP 36.3–36.7; O2SAT 92–98
--- NOTE | 2023-06-15 | ECG_ITS ---
Test Reason : tachycardia Blood Pressure : / mmHG Vent. Rate : 126 BPM Atrial Rate : 126 BPM P-R Int : 128 ms QRS Dur : 070 ms QT Int : 330 ms P-R-T Axes : 058 000 080 degrees QTc Int : 477 ms Sinus tachycardia Possible Inferior infarct , age undetermined Abnormal ECG When compared with ECG of 25-MAY-2023 09:38, Vent. rate has increased BY 58 BPM Nonspecific T wave abnormality now evident in Inferior leads Referred By: Cabrera Silver Electronically Signed By:NIK ALBRIGHT MD
--- NOTE | 2023-06-15 09:45 | PHA.MEDREC ---
Pharmacy Consult ? Medication Reconciliation Pharmacy has completed the medication reconciliation. Patient transferred from , entered meds that were discontinued upon discharge in former profile
--- NOTE | 2023-06-15 09:48 | MHC.CM.PN ---
Patient has a diagnosis of Dementia and Cognitive Impairment; CM spoke with /HCP/Boris @ [phone] and addressed IMM with him (original will be mailed certified letter to Boris and a copy has been placed on the chart). Patient's plan is to return to [facility]/ once medically cleared for dc; CM has initiated and will follow for dc planing. PCP is Dr. Brittany Milan.
[2023-06-15 11:13] LABS: Anion Gap 16 (12-20); Blood Urea Nitrogen 47 mg/dL (9-16); Calcium 10.1 mg/dL (8.4-10.2); Carbon Dioxide 29 mmol/L (22-29); Chloride 103 mmol/L (96-108); Estimated Glomerular Filt Rate 35; Glucose Random 186 mg/dL (60-115); Magnesium 2.9 mg/dL (1.6-2.6); Potassium 3.2 mmol/L (3.3-5.1); Sodium 145 mmol/L (135-145)
--- NOTE | 2023-06-15 13:01 | HO.PM.IMPN ---
Subjective Subjective Date of Service: 06/15/23 Interval History: Patient was trasfered out of the Psych unit due to abnormal labs, tachycardia, dehydration, elevated troponin Patient has continued to be confused with periods of agiation. Her labs have improved with IVF, has no fever. Physical Exam Vital Signs: Vital Signs: Last Vital Signs Temp 98.0 F 06/15/23 11:05 Pulse 118 H 06/15/23 11:05 Resp 20 06/15/23 11:05 BP 142/82 H 06/15/23 11:05 Pulse Ox 92 06/15/23 11:05 O2 Del Method Room Air 06/15/23 11:05 Constitutional: Alert, agitated, restless, Mental Status: Oriented to person and place, not to time or situation. Respiratory: Clear to auscultation bilaterally. No wheezing, rales, or rhonchi. Cardiovascular: S1, S2, tachycardic. No murmurs, rubs, or gallops. Gastrointestinal: Abdomen soft, non-tender, non-distended. Normal bowel sounds. Neurologic: Cranial nerves II-XII are grossly intact bilaterally. No focal neurological deficits. Moves all extremities spontaneously. Skin: Warm, dry. Musculoskeletal: No cyanosis or clubbing. Extremities: No edema. Psychiatric: Confused, agitated, restless . Objective Data Active Medications Docusate Sodium (Docusate Sodium 100 Mg Capsule) 100 mg PO DAILY PRN PRN Reason: Constipation Heparin Sodium (Porcine) (Heparin Sodium,Porcine 5,000 Unit/Ml Vial) 5,000 unit SUBCUT Q8H [facility] Last Admin: 06/15/23 12:26 Dose: 5,000 unit Documented By: VALENTE Dextrose (D5w) 1,000 mls @ 150 mls/hr IVCONT .Q6H40M [facility] Last Admin: 06/15/23 08:50 Dose: 150 mls/hr Documented By: VALENTE Ceftriaxone Sodium 1 gm/ (Sodium Chloride) 50 mls @ 100 mls/hr IV Q24H [facility] Lorazepam (Lorazepam 0.5 Mg Tablet) 0.5 mg PO BEDTIME PRN PRN Reason: Insomnia Sodium Chloride (0.9 % Sodium Chloride Flush 3 Ml Syringe) 3 ml IVFLUSH QSHIFT [facility] Last Admin: 06/15/23 07:34 Dose: Not Given Documented By: VALENTE Non-Admin Reason: IV Running Labs 06/15/23 10:53 06/15/23 10:53 Labs: Laboratory Results - last 24 hr 06/14/23 06/14/23 06/15/23 19:30 19:31 10:53 MCV 91.1 MCH 30.5 MCHC 33.5 RDW 15.2 Plt Count 281 MPV 11.3 Absolute Nucleated RBC 0.000 Nucleated RBC % (auto) 0.0 Anion Gap 16 Estim Creat Clear Calc TNP Estimated GFR 35 Random Glucose 186 H Lactic Acid Cancelled Calcium 10.1 D Magnesium 2.9 H Ammonia 23 Urine Color Yellow Urine Appearance Clear Urine pH 6.0 Ur Specific [place] 1.025 Urine Protein 30 (1+) H Urine Glucose (UA) Negative Urine Ketones 40 Urine Blood Negative Urine Nitrite Negative Ur Leukocyte Esterase Moderate (2+) H Urine RBC 0-2 Urine WBC 11-20 H Ur Squamous Epith Cells 0-2 Urine Bacteria None Seen Hyaline Casts 3-5 Influenza Type A (PCR) NEGATIVE Influenza Type B (PCR) NEGATIVE RSV RNA Qual (PCR) NEGATIVE SARS-CoV-2 RNA (RT-PCR) NEGATIVE Microbiology Microbiology Results: Microbiology 06/14/23 19:30 Urine Culture - Preliminary Urine Catheterized - Straight Catheter No growth to date. Assessment and Plan (1) LAYO (acute kidney injury): Status: Acute (2) Lactic acidosis: Status: Acute (3) Altered mental status: Status: Acute Plan Pt is a 72-year-old female with a PMH significant for?unspecified mild dementia/cognitive impairment, MDD, and POONAM who was admitted to [facility] psych unit?for increasing depression and agitation. On the unit patient has been steadily declining for the past week. Has been refusing medications, ECT treatment, and becoming more agitated and hopeless, and moving away from reality. Pt brought to the medical floor for treatment and further evaluation of altered mental status, LAYO, and other abnormal labs. LAYO due to dehydration and improving with IVF continue IVF and monitor BMP Altered mental status, patient underlying cognitive impairment and takes Namenda and Aricept, more confused due to dehydration, medications, renal failyre and hypernatremia. Treat underlying illness. Psych consult SIRS criteria --elevated WBC and tachycardia not due infection but rather from dehydration and leukoconcentration as evident by all CBC parameter being high and further significantly coming down with no Abx but IVF alone. Continue IVF and follow the cultures Acute lactic acidosis--not due to sepsis rather due to dehydation, renal failure and as expected came down with IVF Hypernatremia--due to dehydration and resolved with IVF Tachycardia d/t dehydration, improving Hypermagnesemia--follow Elevated troponin--likely from renal failure/dehydration, no chest pain and no ischemic changes on ecg.. and has come down, No further testing at this time. Transaminitis AST 54, ALT 66 Likely secondary to LAYO/dehydration Follow CMP Mood disorder Continue home meds, consult Psych HTN Continue home meds +UA with elevated leuk esterase that is chronic, no bacteria.. Since patient is confused and not able to say if symptomatic or not, will give ceftriaxone and if culture is negative will stop it Full Code DVT Prophylaxis: Heparin Pt will require a hospitalization of at least two nights for treatment of?altered mental status, LAYO, numerous other lab abnormalities, and failure to thrive. Patient be treated with IVF, further imaging and testing, and close monitoring of labs. Quality Stroke Does the patient have a stroke diagnosis?: No VTE Prior VTE?: No VTE Risk Level:: Medical - moderate - high VTE Device Contraindication: Treatment Not Indicated VTE Drug Contraindication: N/A - Med Ordered
[2023-06-15] MEDS: Heparin Sodium,Porcine 5,000 UNIT/ML VIAL 5000 UNIT SUBCUT (21:26)
[2023-06-15 21:34] LABS: Anion Gap 19 (12-20); Blood Urea Nitrogen 33 mg/dL (9-16); Calcium 9.9 mg/dL (8.4-10.2); Carbon Dioxide 25 mmol/L (22-29); Chloride 108 mmol/L (96-108); Estimated Glomerular Filt Rate 47; Glucose Random 161 mg/dL (60-115); Potassium 3.4 mmol/L (3.3-5.1); Sodium 149 mmol/L (135-145)
[2023-06-15] MEDS: Dextrose 5 % 1,000 ML 125 ML IVCONT (22:26)
[2023-06-16] MEDS: LORazepam 2 MG/ML VIAL 1 MG IVPUSH (02:14)
[2023-06-16 04:00] VITALS: BP 150/72; PULSE 112; RESP 20; TEMP 36.2; O2SAT 97
[2023-06-16 07:42] VITALS: BP 159/88; PULSE 125; RESP 20; TEMP 37; O2SAT 93
[2023-06-16] MEDS: Dextrose 5 % 1,000 ML 125 ML IVCONT ×3 (08:28→23:43)
[2023-06-16 10:33] LABS: Hematocrit 47.5 % (37.0-47.0); Hemoglobin 15.6 g/dl (12.0-16.0); Mean Corpuscular HGB Conc 32.8 g/dl (31.0-35.0); Mean Corpuscular Hemoglobin 29.7 pg (27.0-33.0); Mean Corpuscular Volume 90.5 fL (80.0-98.0); Mean Platelet Volume 11.1 fL (9.4-12.3); Platelet Count 309 X10*3/uL (160-400); Red Blood Count 5.25 X10*6/uL (4.20-5.50); White Blood Count 14.9 X10*3/uL (4.8-10.8)
[2023-06-16 10:49] LABS: Anion Gap 15 (12-20); Blood Urea Nitrogen 25 mg/dL (9-16); Calcium 9.6 mg/dL (8.4-10.2); Carbon Dioxide 26 mmol/L (22-29); Chloride 108 mmol/L (96-108); Estimated Glomerular Filt Rate 49; Glucose Random 159 mg/dL (60-115); Potassium 3.1 mmol/L (3.3-5.1); Sodium 146 mmol/L (135-145)
[2023-06-16 11:21] VITALS: BP 189/83; PULSE 122; RESP 20; TEMP 36.8; O2SAT 94
[2023-06-16] MEDS: Potassium Chloride/H20 10 MEQ/100 ML PIGGYBACK 100 MEQ IV ×2 (12:46→14:47)
--- NOTE | 2023-06-16 14:42 | P.PNIM_ITS ---
Subjective Subjective Date of Service: 06/16/23 Interval History: trasfered out of the Psych unit due to abnormal labs, tachycardia, dehydration Review of Systems refused po meds ,food no fevers Physical Exam 2 Vital Signs: Vital Signs: Last Vital Signs Temp 98.3 F 06/16/23 11:21 Pulse 122 H 06/16/23 11:21 Resp 20 06/16/23 11:21 BP 189/83 H 06/16/23 11:21 Pulse Ox 94 06/16/23 11:21 O2 Del Method Room Air 06/16/23 11:21 physical exam: Objective Data Active Medications Carvedilol (Carvedilol 6.25 Mg Tablet) 6.25 mg PO BID [facility]; Protocol Last Admin: 06/16/23 12:47 Dose: Not Given Documented By: LOVE Non-Admin Reason: Patient Refused Docusate Sodium (Docusate Sodium 100 Mg Capsule) 100 mg PO DAILY PRN PRN Reason: Constipation Heparin Sodium (Porcine) (Heparin Sodium,Porcine 5,000 Unit/Ml Vial) 5,000 unit SUBCUT Q8H [facility] Last Admin: 06/16/23 12:49 Dose: Not Given Documented By: LOVE Non-Admin Reason: Patient Refused Hydralazine HCl (Hydralazine Hcl 20 Mg/Ml Vial) 10 mg IVPUSH Q6H PRN; Protocol PRN Reason: Htn Ceftriaxone Sodium 1 gm/ (Sodium Chloride) 50 mls @ 100 mls/hr IV Q24H [facility] Last Infusion: 06/16/23 13:22 Dose: Infused Documented By: LOVE Dextrose (D5w) 1,000 mls @ 125 mls/hr IVCONT .Q8H [facility] Last Admin: 06/16/23 12:55 Dose: Not Given Documented By: LOVE Non-Admin Reason: IV Running Lorazepam (Lorazepam 0.5 Mg Tablet) 0.5 mg PO BEDTIME PRN PRN Reason: Insomnia Sodium Chloride (0.9 % Sodium Chloride Flush 3 Ml Syringe) 3 ml IVFLUSH QSHIFT [facility] Last Admin: 06/16/23 11:40 Dose: Not Given Documented By: LOVE Non-Admin Reason: IV Running Tamsulosin HCl (Tamsulosin Hcl 0.4 Mg Capsule) 0.4 mg PO DAILY [facility] Last Admin: 06/16/23 12:50 Dose: Not Given Documented By: LOVE Non-Admin Reason: Patient Refused Labs 06/16/23 10:08 06/16/23 10:08 Labs: Laboratory Results - last 24 hr 06/15/23 06/16/23 20:31 10:08 MCV 90.5 MCH 29.7 MCHC 32.8 RDW 15.0 Plt Count 309 MPV 11.1 Absolute Nucleated RBC 0.000 Nucleated RBC % (auto) 0.0 Anion Gap 19 15 Estim Creat Clear Calc TNP TNP Estimated GFR 47 49 Random Glucose 161 H 159 H Calcium 9.9 9.6 Microbiology Microbiology Results: Microbiology 06/14/23 19:30 Urine Culture - Final Urine Catheterized - Straight Catheter No growth. Assessment and Plan (1) LAYO (acute kidney injury): Status: Acute Plan 72-year-old female with a PMH significant for?unspecified mild dementia/cognitive impairment, MDD, and POONAM who was admitted to [facility] psych unit?for increasing depression and agitation. On the unit patient has been steadily declining for the past week. Has been refusing medications, ECT treatment, and becoming more agitated and hopeless, and moving away from reality. Pt brought to the medical floor for treatment and further evaluation of altered mental status, LAYO, and other abnormal labs. LAYO due to dehydration and improving with IVF continue IVF and monitor BMP Altered mental status, patient underlying cognitive impairment and takes Namenda and Aricept, more confused due to dehydration, medications, renal failyre and hypernatremia. Treat underlying illness. ct head neg,ammonia fine ,sats also fine in 90's (roomair ) layo and hyponatremia slowly improving continue supportive care -hydration ,encouraged for po intake , neuro and Psych consult SIRS criteria --elevated WBC and tachycardia not due infection but rather from dehydration and leukoconcentration as evident by all CBC parameter being high and further significantly coming down with no Abx but IVF alone. urine cultures negative, Continue IVF Acute lactic acidosis--not due to sepsis rather due to dehydation, renal failure and as expected came down with IVF Hypernatremia--due to dehydration and resolved with IVF Tachycardia d/t dehydration, improving Transaminitis AST 54, ALT 66 Likely secondary to LAYO/dehydration Mood disorder Continue home meds, consult Psych HTN Continue home meds Full Code DVT Prophylaxis: Heparin In my opinion ongoing hospitalization need: for treatment of?altered mental status, LAYO, numerous other lab abnormalities, and failure to thrive. Patient be treated with IVF, further imaging and testing, and close monitoring of labsas well as need expert consulations . Quality Stroke Does the patient have a stroke diagnosis?: No VTE Prior VTE?: No VTE Risk Level:: Medical - moderate - high VTE Device Contraindication: Treatment Not Indicated VTE Drug Contraindication: N/A - Med Ordered
[2023-06-16] MEDS: cloNIDine 0.2 MG PATCH.TDWK TRANSDERMA (14:47)
--- NOTE | 2023-06-16 15:17 | P.CNPS_ITS ---
History of Present Illness Date of Service: 06/16/2023 Chief Complaint: LAYO, AMS, failure to thrive Reason for Consult: Psychiatry follow up. Transfer from . 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 By history, ECT, Trintellix, Doxepin, Caplyta combination have been helpful. Admitted to with anxiety, racing of thoughts and insomnia, ruminations, catastrophic thinking, hopeless, helpless. A possible stressor identified was having an eval for a neurological illness (family tells me today this has been ruled out). Pt was admitted to Dr. Willett's service, medications were adjusted. ECT clearance was obtained and pt had her first treatment on 06/03/23. Dr. Willett had BRISA after this which distressed pt and she refused further ECT and thereafter began to refuse medications, food, fluids and care. Section seven was filed and a court date was scheduled for 06/18/22 for commitment consideration. Pt continued with worsening of sx, with resulting medical complications over the weekend, refusal of diagnostics for several hours on 06/14/23 until she was convinced they were needed. Pt transferred to [facility] [place] with LAYO, transaminitis. She is receiving IVF. Nursing reports she continues to refuse treatment, tells team she is dying, has and wants to , refusing food/fluids and not wanting po medications. Legally it appears at this time pt's consumer attorney will order JESSICA and postpone court on 06/18/22. Family is calling from [place], has called to check in today. They will all attempt to call pt if she will talk with them. Pt is with her one to one when seen, she has good eye contact, smiles when greeted, is talkative, attentive when tw tells her sister Tayla has called to check on her as well as her . She is comfortable and appears less agitated. She is encouraged to accept care, told her MD will return next week. She tells tw she is dying. Attempted to explain the pain of her depression and that treatment will bring relief as it has in the past given her long history of care. Encouraged pt to re-start regime, eat and drink. Past Psychiatric History: Patient with long history of recurrent depression with multiple prior psychiatric hospitalizations. 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 no classic bipolar symptoms past depressive psychotic episodes not for a number of years Medical Evaluation Reviewed: Yes Review of Systems Review of Systems Yes Unobtainable due to mental status [facility] Medical History (Updated 06/16/23 @ 15:42 by Unique Ramey APRN) Severe recurrent major depression w/psychotic features, mood-congruent Has daytime drowsiness Nocturnal hypoxia Preoperative examination Elevated glucose Screening for colon cancer Screening for diabetes mellitus Obesity (BMI 30-39.9) Confused but orients easily Depression, major, severe recurrence Abnormal serum protein electrophoresis Mild recurrent major depression Anxiety and depression Encounter for Medicare annual wellness exam Removal of nell Depression with anxiety Abdominal distention Weight gain Major depression, recurrent, full remission POONAM (generalized anxiety disorder) Hypothyroidism Hyperparathyroidism Multinodular thyroid Vitamin D deficiency Osteoporosis Surgical History Hx of colonoscopy Hx of kyphoplasty Hx of section Social History: Patient disabled has 1 son. Chronic anxiety has an intermittent difficult relationship with her mostly has not worked Trauma History: None noted Diagnostics Vital Signs (24Hr): Vital Signs - 24 hr 06/15/23 19:30 06/15/23 23:20 06/16/23 04:00 Temperature 97.8 F 98 F 97.2 F Pulse Rate 130 H 121 H 112 H Respiratory Rate 26 H 20 20 Blood Pressure 144/85 H 150/72 H Pulse Oximetry 92 96 97 Oxygen Delivery Method Room Air Room Air Room Air 06/16/23 07:42 06/16/23 11:21 Temperature 98.6 F 98.3 F Pulse Rate 125 H 122 H Respiratory Rate 20 20 Blood Pressure 159/88 H 189/83 H Pulse Oximetry 93 94 Oxygen Delivery Method Room Air Room Air Labs 06/16/23 10:08 06/16/23 10:08 Labs: Laboratory Results - last 48 hr 06/14/23 06/14/23 06/15/23 19:30 19:31 10:53 WBC 15.6 H RBC 5.51 H Hgb 16.8 H Hct 50.2 H MCV 91.1 MCH 30.5 MCHC 33.5 RDW 15.2 Plt Count 281 MPV 11.3 Absolute Nucleated RBC 0.000 Nucleated RBC % (auto) 0.0 Sodium 145 Potassium 3.2 L D Chloride 103 Carbon Dioxide 29 Anion Gap 16 BUN 47 H Creatinine 1.48 H Estim Creat Clear Calc TNP Estimated GFR 35 Random Glucose 186 H Lactic Acid Cancelled Calcium 10.1 D Magnesium 2.9 H Ammonia 23 Troponin I High Sens 67.4 H* Urine Color Yellow Urine Appearance Clear Urine pH 6.0 Ur Specific [place] 1.025 Urine Protein 30 (1+) H Urine Glucose (UA) Negative Urine Ketones 40 Urine Blood Negative Urine Nitrite Negative Ur Leukocyte Esterase Moderate (2+) H Urine RBC 0-2 Urine WBC 11-20 H Ur Squamous Epith Cells 0-2 Urine Bacteria None Seen Hyaline Casts 3-5 Influenza Type A (PCR) NEGATIVE Influenza Type B (PCR) NEGATIVE RSV RNA Qual (PCR) NEGATIVE SARS-CoV-2 RNA (RT-PCR) NEGATIVE 06/15/23 06/16/23 20:31 10:08 WBC 14.9 H RBC 5.25 Hgb 15.6 Hct 47.5 H MCV 90.5 MCH 29.7 MCHC 32.8 RDW 15.0 Plt Count 309 MPV 11.1 Absolute Nucleated RBC 0.000 Nucleated RBC % (auto) 0.0 Sodium 149 H 146 H Potassium 3.4 3.1 L Chloride 108 108 Carbon Dioxide 25 26 Anion Gap 19 15 BUN 33 H 25 H Creatinine 1.15 1.09 Estim Creat Clear Calc TNP TNP Estimated GFR 47 49 Random Glucose 161 H 159 H Lactic Acid Calcium 9.9 9.6 Magnesium Ammonia Troponin I High Sens Urine Color Urine Appearance Urine pH Ur Specific [place] Urine Protein Urine Glucose (UA) Urine Ketones Urine Blood Urine Nitrite Ur Leukocyte Esterase Urine RBC Urine WBC Ur Squamous Epith Cells Urine Bacteria Hyaline Casts Influenza Type A (PCR) Influenza Type B (PCR) RSV RNA Qual (PCR) SARS-CoV-2 RNA (RT-PCR) Imaging Radiology Impressions: ITS Impressions Chest X-Ray 06/15/23 09:23 IMPRESSION: 1. No significant change when compared to 02/14/2023. 2. Minimal streaky opacities in the retrocardiac region, likely subsegmental atelectasis. 3. Unchanged diffuse interstitial prominence. Head CT 06/16/23 11:00 IMPRESSION: 1. No acute intracranial process seen. 2. Age-related cerebral volume loss. Mental Status Exam Mental Status Exam Patient Appearance: Fatigued Patient Orientation: Person and Place Level of Consciousness: Awake and Alert Patient Behavior: Appropriate, Talkative, Passive, Anxious, Fearful, Resistive to Care, Avoidant, Fatigued, Distractible, Confused, Isolative, Good Eye Contact and Uncooperative Mood Description: Withdrawn, Depressed, Fearful, Anxious, Angry, Sad, Nervous and Apprehensive Affect Description: Depressed Patient Cognition Impaired: Yes Ability to Follow Directions: Fair Speech Pattern: Clear, Perseverating, Impoverished, Spontaneous Speech, Soft- Spoken and Long Pauses Memory Description: Remote Impaired Hallucinations: None Delusions: Paranoid Ideation and Present Perceptual Disturbances: Derealization Thought Process: Illogical, Distracted, Rumination, Evasive, Slowed Thinking and Confusion Thought Content: positive for [place], positive for Obsessional Thoughts, positive for Circumstantial, positive for Perseveration, positive for Poverty of Content, positive for Preoccupation, positive for Evasive and positive for Suicidal Ideation (passive) Depressive Symptoms: Increased Anxiety, Changes in Appetite, Loss of Int. in Activity, Hopelessness, Isolating-Friends/Family, Unhappiness, Increased Fatigue, Thoughts of /Suicide (passive), Loss of Energy and Difficulty Concentrating Judgement: Poor Medications Medications Current Medications Carvedilol (Carvedilol 6.25 Mg Tablet) 6.25 mg PO BID [facility]; Protocol Last Admin: 06/16/23 12:47 Dose: Not Given Docusate Sodium (Docusate Sodium 100 Mg Capsule) 100 mg PO DAILY PRN PRN Reason: Constipation Heparin Sodium (Porcine) (Heparin Sodium,Porcine 5,000 Unit/Ml Vial) 5,000 unit SUBCUT Q8H [facility] Last Admin: 06/16/23 12:49 Dose: Not Given Hydralazine HCl (Hydralazine Hcl 20 Mg/Ml Vial) 10 mg IVPUSH Q6H PRN; Protocol PRN Reason: Htn Ceftriaxone Sodium 1 gm/ (Sodium Chloride) 50 mls @ 100 mls/hr IV Q24H [facility] Last Infusion: 06/16/23 13:22 Dose: Infused Dextrose (D5w) 1,000 mls @ 125 mls/hr IVCONT .Q8H [facility] Last Admin: 06/16/23 12:55 Dose: Not Given Lorazepam (Lorazepam 0.5 Mg Tablet) 0.5 mg PO BEDTIME PRN PRN Reason: Insomnia Sodium Chloride (0.9 % Sodium Chloride Flush 3 Ml Syringe) 3 ml IVFLUSH QSHIFT [facility] Last Admin: 06/16/23 11:40 Dose: Not Given Tamsulosin HCl (Tamsulosin Hcl 0.4 Mg Capsule) 0.4 mg PO DAILY [facility] Last Admin: 06/16/23 12:50 Dose: Not Given Allergies Allergies Allergy/AdvReac Type Severity Reaction Status Date / Time risperidone [From Risperdal] Allergy Intermediate UNKNOWN Verified 05/12/23 13:13 Sulfa (Sulfonamide Allergy Intermediate rash Verified 05/12/23 13:13 Antibiotics) From BENADRYL Allergy Intermediate DIZZY Uncoded 02/14/23 11:47 Assessment & Plan Assessment & Plan (1) Severe recurrent major depression w/psychotic features, mood-congruent: Status: Acute Code(s): F33.3 - Major depressive disorder, recurrent, severe with psychotic symptoms Plan Pt has been refusing medications for a significant time currently. Section [address] pending court hearing. Suggest 1. Seroquel 25 mg po bid if she will accept it. If she will not, suggest 2. Zydis 10 mg, 2.5 mg bid if she will accept it. If she will not, suggest 3. Haldol concentrate, 1 mg po bid if she will accept it. If not we will need to wait for the court decision. Pt may accept a po preparation in a different form (pill, dissolvable tablet or liquid). Total time managing care of this patient today ____ minutes. Informed Consent: does not understand
[2023-06-16 15:22] VITALS: BP 155/97; PULSE 129; RESP 20; TEMP 37.3; O2SAT 94
[2023-06-16 15:25] LABS: Alanine Aminotransferase 67 U/L (0-31); Albumin Level 3.6 g/dL (3.5-5.0); Alkaline Phosphatase 66 U/L (39-117); Aspartate Amino Transferase 52 U/L (5-31); Bilirubin Direct 0.4 mg/dL (0.0-0.5); Total Protein 7.2 g/dL (6.5-8.0)
--- NOTE | 2023-06-16 16:58 | P.CNNE_ITS ---
History of Present Illness Data of Consult Service Date: 06/16/23 Primary Care Provider: Brittany Medina MD HPI Reason for consult: Altered mental status This is a 72-year-old female with mild dementia/cognitive impairment, MDD, and POONAM who was admitted to M5 psych unit?for increasing depression and agitation. On the unit patient has been steadily declining for the past week. Has been refusing medications, and ECT treatment, and becoming more agitated and hopeless, and moving away from reality. Transferred to the medical floor for treatment and further evaluation of altered mental status, LAYO, and other abnormal labs.primarily due to dehydration and improving with IVF . She takes Namenda and Aricept, She rarely verbalizes and israel snot follow commands. Looks staright ahead and avoids eye contact. refuses food and water. Review of Systems 2 Review of Systems: refused po meds ,food no fevers Yes Unobtainable due to mental status PMFSH Past Medical History Medical History (Updated 06/16/23 @ 17:27 by Shahana Alberts MD) Dementia Severe recurrent major depression w/psychotic features, mood-congruent Has daytime drowsiness Nocturnal hypoxia Preoperative examination Elevated glucose Screening for colon cancer Screening for diabetes mellitus Obesity (BMI 30-39.9) Confused but orients easily Depression, major, severe recurrence Abnormal serum protein electrophoresis Mild recurrent major depression Anxiety and depression Encounter for Medicare annual wellness exam Removal of nell Depression with anxiety Abdominal distention Weight gain Major depression, recurrent, full remission POONAM (generalized anxiety disorder) Hypothyroidism Hyperparathyroidism Multinodular thyroid Vitamin D deficiency Osteoporosis Family History Family History Father Myocardial infarction CVD (cardiovascular disease) Mother Dementia Alzheimer disease Other Mental health disorder Surgical History Surgical History Hx of colonoscopy Hx of kyphoplasty Hx of section Social History Social History Household Members: Spouse Housing: House Do you presently have visiting nurse or other home services: No Alcohol intake: never Comment: SITTER Patient Tobacco Use Status: Never used Tobacco e-Cigarette/Vaping Use: Never Used Second Hand Smoke Exposure: No Use of substances other than those prescribed or required for medical reasons: No Currently Displaying Signs/Symptoms of Drug Intoxication Withdrawal: No Have you been hit, kicked, punched, or otherwise hurt by someone within the past year? If so, by whom?: No Do you feel safe in your current relationship?: Yes Is there a partner from a previous relationship who is making you feel unsafe now?: No Are you made to feel afraid or neglected: No Advance Directives: No Advance Directives Information Provided: No Do you have thoughts of harming others: None Do you have a plan to hurt others: No Plan Recently lost weight without trying: No Patient : No service: No Current occupational status: unemployed Sexual orientation: Straight/Heterosexual Cognitive needs: No Hearing needs: No Meds Allergies Allergy/AdvReac Type Severity Reaction Status Date / Time risperidone [From Risperdal] Allergy Intermediate UNKNOWN Verified 05/12/23 13:13 Sulfa (Sulfonamide Allergy Intermediate rash Verified 05/12/23 13:13 Antibiotics) From BENADRYL Allergy Intermediate DIZZY Uncoded 02/14/23 11:47 Active Medications: Current Medications Carvedilol (Carvedilol 6.25 Mg Tablet) 6.25 mg PO BID [facility]; Protocol Last Admin: 06/16/23 12:47 Dose: Not Given Docusate Sodium (Docusate Sodium 100 Mg Capsule) 100 mg PO DAILY PRN PRN Reason: Constipation Heparin Sodium (Porcine) (Heparin Sodium,Porcine 5,000 Unit/Ml Vial) 5,000 unit SUBCUT Q8H [facility] Last Admin: 06/16/23 12:49 Dose: Not Given Hydralazine HCl (Hydralazine Hcl 20 Mg/Ml Vial) 10 mg IVPUSH Q6H PRN; Protocol PRN Reason: Htn Ceftriaxone Sodium 1 gm/ (Sodium Chloride) 50 mls @ 100 mls/hr IV Q24H [facility] Last Infusion: 06/16/23 13:22 Dose: Infused Dextrose (D5w) 1,000 mls @ 125 mls/hr IVCONT .Q8H [facility] Last Admin: 06/16/23 16:17 Dose: 125 mls/hr Lorazepam (Lorazepam 0.5 Mg Tablet) 0.5 mg PO BEDTIME PRN PRN Reason: Insomnia Sodium Chloride (0.9 % Sodium Chloride Flush 3 Ml Syringe) 3 ml IVFLUSH QSHIFT [facility] Last Admin: 06/16/23 11:40 Dose: Not Given Tamsulosin HCl (Tamsulosin Hcl 0.4 Mg Capsule) 0.4 mg PO DAILY [facility] Last Admin: 06/16/23 12:50 Dose: Not Given Home Medications Medication Instructions Recorded Confirmed Last Taken Type doxepin 25 mg capsule 50 mg PO BEDTIME 06/15/23 06/15/23 Unknown History lumateperone 21 mg capsule 21 mg PO DAILY@1700 06/15/23 06/15/23 Unknown History memantine 5 mg tablet 10 mg PO BID 06/15/23 06/15/23 Unknown History Physical Exam 2 Vital Signs: Vital Signs: Last Vital Signs Temp 99.2 F 06/16/23 15:22 Pulse 129 H 06/16/23 15:22 Resp 20 06/16/23 15:22 BP 155/97 H 06/16/23 15:22 Pulse Ox 94 06/16/23 15:22 O2 Del Method Room Air 06/16/23 15:22 Neuro: Other: She is awake looking straight ahead. She does not make eye contact, does not follow commands. She'll occasionally say a word sometimes inappropriately. She keeps picking at her lips. Refuses to eat or drink, or cooperate. Moves all 4 extremities against gravity and is constantly flexing and extending both legs restlessly in bed. She keeps picking at her lip which is quite dry and bleeding. Neck is supple Results Labs 06/16/23 10:08 06/16/23 10:08 Labs: Short CBC 06/16/23 Range/Units 10:08 WBC 14.9 H (4.8-10.8) X10*3/uL Hgb 15.6 (12.0-16.0) g/dl Hct 47.5 H (37.0-47.0) % Plt Count 309 (160-400) X10*3/uL BMP 06/15/23 06/16/23 20:31 10:08 Sodium 149 H 146 H Potassium 3.4 3.1 L Chloride 108 108 Carbon Dioxide 25 26 BUN 33 H 25 H Creatinine 1.15 1.09 Calcium 9.9 9.6 Liver Function 06/16/23 Range/Units 10:08 Total Bilirubin 1.0 (0.0-1.0) mg/dL Direct Bilirubin 0.4 (0.0-0.5) mg/dL AST 52 H (5-31) U/L ALT 67 H (0-31) U/L Alkaline Phosphatase 66 (39-117) U/L Albumin 3.6 (3.5-5.0) g/dL Microbiology Microbiology Results: Microbiology 06/14/23 19:30 Urine Catheterized - Straight Catheter Urine Culture - Final No growth. Assessment and Plan (1) Severe recurrent major depression w/psychotic features, mood-congruent: Status: Acute She also appears to have a dementia of uncertain duration. She's already being treated with Namenda and donepezil. Her CT scan shows age-related atrophy and microvascular changes. Recommendations: Check thyroid profile, serum ammonia levels, RPR, EEG.Hydration. Plan Pt has been refusing medications for a significant time currently. [place] pending court hearing. Suggest 1. Seroquel 25 mg po bid if she will accept it. If she will not, suggest 2. Zydis 10 mg, 2.5 mg bid if she will accept it. If she will not, suggest 3. Haldol concentrate, 1 mg po bid if she will accept it. If not we will need to wait for the court decision. Pt may accept a po preparation in a different form (pill, dissolvable tablet or liquid). Procedures Date of Service Date of Service: 06/16/23
--- NOTE | 2023-06-16 18:23 | PC.NURSE ---
md informed of pts blader scan at 1200 and 1800. pt str cath at 1200. bladder scan at 1800 445ml. per Md, no str cath or gunn, continue to assess
[2023-06-16 20:00] VITALS: BP 162/109; PULSE 112; RESP 20; TEMP 36.7; O2SAT 97
[2023-06-16 23:40] VITALS: BP 196/111; PULSE 120; RESP 20; TEMP 36.4; O2SAT 94
[2023-06-16] MEDS: hydrALAZINE HCl 20 MG/ML VIAL 10 MG IVPUSH (23:41)
[2023-06-16] MEDS: LORazepam 0.5 MG TABLET PO (23:41)
[2023-06-17] VITALS (7 sets, daily range): BP systolic 136–180; BP diastolic 68–118; PULSE 105–123; RESP 15–20; TEMP 36.1–36.7; O2SAT 94–99
[2023-06-17] MEDS: LORazepam 2 MG/ML VIAL 0.5 MG IVPUSH (00:34)
[2023-06-17 07:31] LABS: Hemoglobin 15.2 g/dl (12.0-16.0); Mean Corpuscular Volume 90.7 fL (80.0-98.0); Mean Platelet Volume 11.7 fL (9.4-12.3); Platelet Count 287 X10*3/uL (160-400); Red Blood Count 5.07 X10*6/uL (4.20-5.50)
[2023-06-17 08:07] LABS: Anion Gap 17 (12-20); Blood Urea Nitrogen 13 mg/dL (9-16); Calcium 9.1 mg/dL (8.4-10.2); Carbon Dioxide 24 mmol/L (22-29); Chloride 104 mmol/L (96-108); Estimated Glomerular Filt Rate > 60; Glucose Random 146 mg/dL (60-115); Sodium 142 mmol/L (135-145)
[2023-06-17 08:38] LABS: Phosphorus 1.7 mg/dL (2.7-4.5)
[2023-06-17] MEDS: Dextrose 5 % 1,000 ML 125 ML IVCONT (09:08)
[2023-06-17] MEDS: Potassium Phosphate/NS 15 MMOL/250 ML PLAST..BAG 62.5 MMOL IV ×2 (09:14→13:16)
--- NOTE | 2023-06-17 10:21 | MHC.CM.PN ---
Per ROUNDS discussion, Patient is medically cleared for dc today and needs to be seen by Psych to assist with disposition. CM will follow.
[2023-06-17 12:03] LABS: Syphilis Screen Nonreactive (Nonreactive)
[2023-06-17 12:25] LABS: Potassium 2.7 mmol/L (3.3-5.1)
--- NOTE | 2023-06-17 15:37 | P.PNIM_ITS ---
Subjective Subjective Date of Service: 06/17/23 Interval History: trasfered out of the Psych unit due to abnormal labs, tachycardia, dehydration Review of Systems refused po meds ,food no fevers Physical Exam 2 Vital Signs: Vital Signs: Last Vital Signs Temp 97.5 F 06/17/23 11:37 Pulse 114 H 06/17/23 11:37 Resp 15 06/17/23 11:37 BP 149/90 H 06/17/23 11:37 Pulse Ox 95 06/17/23 11:37 O2 Del Method Room Air 06/17/23 11:37 Appearance: alert,agaitated intermittent. cvs: rrr, [id number] . res:air entry fair ,no rales or wheezing abd: no rebound or guarding ,nt, bs present. ext pulses present , no cyanosis . neuro:nonfocal. Objective Data Active Medications Carvedilol (Carvedilol 6.25 Mg Tablet) 6.25 mg PO BID [facility]; Protocol Last Admin: 06/17/23 09:19 Dose: Not Given Documented By: JAMEE Non-Admin Reason: Patient Refused Docusate Sodium (Docusate Sodium 100 Mg Capsule) 100 mg PO DAILY PRN PRN Reason: Constipation Heparin Sodium (Porcine) (Heparin Sodium,Porcine 5,000 Unit/Ml Vial) 5,000 unit SUBCUT Q8H [facility] Last Admin: 06/17/23 13:11 Dose: Not Given Documented By: LOVE Non-Admin Reason: Patient Refused Hydralazine HCl (Hydralazine Hcl 20 Mg/Ml Vial) 10 mg IVPUSH Q6H PRN; Protocol PRN Reason: Htn Last Admin: 06/16/23 23:41 Dose: 10 mg Documented By: BUSTER Ceftriaxone Sodium 1 gm/ (Sodium Chloride) 50 mls @ 100 mls/hr IV Q24H [facility] Last Infusion: 06/17/23 15:32 Dose: Infused Documented By: JAMEE Potassium Phosphate (Kphos) 15 mmol in 250 mls @ 62.5 mls/hr IV Q4H [facility] Stop: 06/18/23 00:14 Last Admin: 06/17/23 13:16 Dose: 62.5 mls/hr Documented By: LOVE Dextrose (D5w) 1,000 mls @ 125 mls/hr IVCONT .Q8H [facility] Last Admin: 06/17/23 09:08 Dose: 125 mls/hr Documented By: JAMEE Lorazepam (Lorazepam 0.5 Mg Tablet) 0.5 mg PO BEDTIME PRN PRN Reason: Insomnia Last Admin: 06/16/23 23:41 Dose: 0.5 mg Documented By: BUSTER Sodium Chloride (0.9 % Sodium Chloride Flush 3 Ml Syringe) 3 ml IVFLUSH QSHIFT [facility] Last Admin: 06/17/23 09:16 Dose: Not Given Documented By: JAMEE Non-Admin Reason: IV Running Tamsulosin HCl (Tamsulosin Hcl 0.4 Mg Capsule) 0.4 mg PO DAILY [facility] Last Admin: 06/17/23 09:20 Dose: Not Given Documented By: JAMEE Non-Admin Reason: Patient Refused Labs 06/17/23 06:11 06/17/23 06:11 Labs: Laboratory Results - last 24 hr 06/17/23 06/17/23 06:11 11:25 MCV 90.7 MCH 30.0 MCHC 33.0 RDW 15.0 Plt Count 287 MPV 11.7 Absolute Nucleated RBC 0.000 Nucleated RBC % (auto) 0.0 Anion Gap 17 Estim Creat Clear Calc TNP Estimated GFR > 60 Random Glucose 146 H Calcium 9.1 Phosphorus 1.7 L T.pallidum Ab (EIA) Nonreactive Assessment and Plan (1) Dementia: Status: Acute (2) Severe recurrent major depression w/psychotic features, mood-congruent: Status: Acute (3) Hypokalemia: Status: Acute Plan 72-year-old female with a PMH significant for?unspecified mild dementia/cognitive impairment, MDD, and POONAM who was admitted to M5 psych unit?for increasing depression and agitation. On the unit patient has been steadily declining for the past week. Has been refusing medications, ECT treatment, and becoming more agitated and hopeless, and moving away from reality. Pt brought to the medical floor for treatment and further evaluation of altered mental status, LAYO, and other abnormal labs. LAYO due to dehydration and improving with IVF improved . Hypokalemia/hypophos: added kphos moniter renal function/electrolytes. possible metabolic encephalopathy,multifactorial:Altered mental status, patient underlying cognitive impairment and takes Namenda and Aricept, more confused due to dehydration, medications, renal failyre and hypernatremia. Treat underlying illness. ct head neg,ammonia fine ,sats fine ,tsh fine layo and hyponatremia slowly improved. continue supportive care -hydration ,encouraged for po intake neuro evthomas noted -her symptoms Severe recurrent major depression w/psychotic features, mood-congruent: added rpr and eeg . SIRS criteria --elevated WBC and tachycardia not due infection but rather from dehydration and leukoconcentration as evident by all CBC parameter being high and further significantly coming down with no Abx but IVF alone. urine cultures negative,cxr grossly fine . Continue IVF ,stop antibiotics,moniter off antibiotics. id eval Acute lactic acidosis--not due to sepsis rather due to dehydation, renal failure and as expected came down with IVF Hypernatremia--due to dehydration and resolved with IVF Tachycardia d/t dehydration, flactauting ( multifactorial dehydration ,not taking bb-propanalol) continue ivf . Transaminitis AST 54, ALT 66 Likely secondary to LAYO/dehydration Mood disorder Continue home meds, consult Psych HTN: refuses po meds Continue home meds Full Code DVT Prophylaxis: Heparin In my opinion ongoing hospitalization need: for treatment of?altered mental status, LAYO, numerous other lab abnormalities, and failure to thrive. Patient be treated with IVF, further imaging and testing, and close monitoring of labsas well as need expert consulations . Quality Stroke Does the patient have a stroke diagnosis?: No VTE Prior VTE?: No VTE Risk Level:: Medical - moderate - high VTE Device Contraindication: Treatment Not Indicated VTE Drug Contraindication: N/A - Med Ordered
--- NOTE | 2023-06-17 15:49 | P.CDIM_ITS ---
PROVIDER RESPONSE TEXT: To clarify, the appropriate diagnosis supported by the clinical indicators: Encephalopathy: metabolic QUERY TEXT: PHYSICIAN'S DOCUMENTATION REQUEST Date of Query: 06/17/2023 09:48 AM EST Patient Name: Judy Rodrigues Admit Date: 06/14/2023 Dear Lory Paz, A review of the medical record indicates additional documentation may be needed. Please review below and update the documentation accordingly. Clinical Indicators: PN: Altered mental status, confused, refusing medications, more confused due to dehydration Abnormal labs IVF LAYO and hyponatremia improving Based on the above, could you clarify if any of the following, is the most likely etiology of the con fusion/altered mental status? Encephalopathy Indicate type such as metabolic, toxic, septic, alcoholic, hypertensive, etc. Dementia Indicate type of dementia, such as Alzheimer's, senile, vascular, Lewy body, etc. Baseline dementia Indicate type, such as Alzheimer's, senile, vascular, Lewy body, etc., and any associated behavioral disturbances (aggressive, combative, or violent behavior) Other (explain) Clinically unable to determine (explain) Thank you, Delphine Sunshine, CCS, CDIS Use of terms such as suspected, likely, concern for, or probable (associated with a specific diagnosi s that is being evaluated, monitored, or treated as if it exists) are acceptable and can be coded in the inpatient se tting, when documented at the time of discharge. Please use your independent medical judgment in providing your response. THIS QUERY IS PART OF THE PERMANENT MEDICAL RECORD
--- NOTE | 2023-06-17 16:08 | PM.PSYCN ---
History of Present Illness Date of Service: 06/17/2023 Chief Complaint: LAYO, AMS, failure to thrive Reason for Consult: Follow up, depression with psychotic features, FTT, refusal of food, fluids, medications and treatment Requesting physician: Lory Paz Sources of Information: patient interviewed and chart reviewed HPI Narrative: Pt awake, alert in bed, team is working on changing her linens. She has good eye contact, is minimally verbal, calm and continues to refuse food, fluids, medications. Anuja Romero, nursing home manager for Dr. Willett, knows pt and visited her today. For Anuja, pt ate a small amount of pudding. Team reports all po meds are refused. She continues with IVF. Today she is hypokalemic with kphos replacement. Seen by neuro, EEG, RPR pending. Of note, pt has been refusing Aricept/Namenda for a significant period of time which may lead to increase in cognitive decline. Legally, court is rescheduled to 06/23/23 as pt's trust and estates attorney will schedule an JESSICA. Past Psychiatric History: Patient with long history of recurrent depression with multiple prior psychiatric hospitalizations. 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 IVF Did eat a small amount of pudding today for Dr. Tamie Patel's nursing home manager. [facility] Medical History Dementia Severe recurrent major depression w/psychotic features, mood-congruent Has daytime drowsiness Nocturnal hypoxia Preoperative examination Elevated glucose Screening for colon cancer Screening for diabetes mellitus Obesity (BMI 30-39.9) Confused but orients easily Depression, major, severe recurrence Abnormal serum protein electrophoresis Mild recurrent major depression Anxiety and depression Encounter for Medicare annual wellness exam Removal of nell Depression with anxiety Abdominal distention Weight gain Major depression, recurrent, full remission POONAM (generalized anxiety disorder) Hypothyroidism Hyperparathyroidism Multinodular thyroid Vitamin D deficiency Osteoporosis Surgical History Hx of colonoscopy Hx of kyphoplasty Hx of section Social History: Patient disabled has 1 son. Chronic anxiety has an intermittent difficult relationship with her mostly has not worked Trauma History: None noted Diagnostics Vital Signs (24Hr): Vital Signs - 24 hr 06/16/23 20:00 06/16/23 23:40 06/17/23 03:16 Temperature 98.1 F 97.6 F 97.3 F Pulse Rate 112 H 120 H 110 H Respiratory Rate 20 20 20 Blood Pressure 162/109 H 196/111 H 136/76 Pulse Oximetry 97 94 99 Oxygen Delivery Method Room Air Room Air Room Air 06/17/23 07:41 06/17/23 11:37 06/17/23 15:37 Temperature 97.5 F 97.5 F 96.9 F Pulse Rate 105 H 114 H 123 H Respiratory Rate 15 15 20 Blood Pressure 141/74 H 149/90 H 180/97 H Pulse Oximetry 96 95 94 Oxygen Delivery Method Room Air Room Air Room Air Labs 06/17/23 06:11 06/17/23 06:11 Labs: Laboratory Results - last 48 hr 06/15/23 06/16/23 06/17/23 20:31 10:08 06:11 WBC 14.9 H 15.0 H RBC 5.25 5.07 Hgb 15.6 15.2 Hct 47.5 H 46.0 MCV 90.5 90.7 MCH 29.7 30.0 MCHC 32.8 33.0 RDW 15.0 15.0 Plt Count 309 287 MPV 11.1 11.7 Absolute Nucleated RBC 0.000 0.000 Nucleated RBC % (auto) 0.0 0.0 Sodium 149 H 146 H 142 Potassium 3.4 3.1 L 2.7 L* Chloride 108 108 104 Carbon Dioxide 25 26 24 Anion Gap 19 15 17 BUN 33 H 25 H 13 Creatinine 1.15 1.09 0.86 Estim Creat Clear Calc TNP TNP TNP Estimated GFR 47 49 > 60 Random Glucose 161 H 159 H 146 H Calcium 9.9 9.6 9.1 Phosphorus 1.7 L Total Bilirubin 1.0 Direct Bilirubin 0.4 AST 52 H ALT 67 H Alkaline Phosphatase 66 Total Protein 7.2 Albumin 3.6 T.pallidum Ab (EIA) 06/17/23 11:25 WBC RBC Hgb Hct MCV MCH MCHC RDW Plt Count MPV Absolute Nucleated RBC Nucleated RBC % (auto) Sodium Potassium Chloride Carbon Dioxide Anion Gap BUN Creatinine Estim Creat Clear Calc Estimated GFR Random Glucose Calcium Phosphorus Total Bilirubin Direct Bilirubin AST ALT Alkaline Phosphatase Total Protein Albumin T.pallidum Ab (EIA) Nonreactive Imaging Radiology Impressions: ITS Impressions Chest X-Ray 06/15/23 09:23 IMPRESSION: 1. No significant change when compared to 02/14/2023. 2. Minimal streaky opacities in the retrocardiac region, likely subsegmental atelectasis. 3. Unchanged diffuse interstitial prominence. Head CT 06/16/23 11:00 IMPRESSION: 1. No acute intracranial process seen. 2. Age-related cerebral volume loss. Mental Status Exam Mental Status Exam Patient Appearance: Fatigued Patient Orientation: Person and Place Level of Consciousness: Awake and Alert Patient Behavior: Appropriate, Talkative, Passive, Anxious, Fearful, Resistive to Care, Avoidant, Fatigued, Distractible, Confused, Isolative, Good Eye Contact and Uncooperative Mood Description: Withdrawn, Depressed, Fearful, Anxious, Angry, Sad, Nervous and Apprehensive Affect Description: Depressed Patient Cognition Impaired: Yes Ability to Follow Directions: Fair Speech Pattern: Clear, Perseverating, Impoverished, Spontaneous Speech, Soft-Spoken and Long Pauses Memory Description: Remote Impaired Hallucinations: None Delusions: Paranoid Ideation and Present Perceptual Disturbances: Derealization Thought Process: Illogical, Distracted, Rumination, Evasive, Slowed Thinking and Confusion Thought Content: positive for [place], positive for Obsessional Thoughts, positive for Circumstantial, positive for Perseveration, positive for Poverty of Content, positive for Preoccupation, positive for Evasive and positive for Suicidal Ideation (passive) Depressive Symptoms: Increased Anxiety, Changes in Appetite, Loss of Int. in Activity, Hopelessness, Isolating-Friends/Family, Unhappiness, Increased Fatigue, Thoughts of /Suicide (passive), Loss of Energy and Difficulty Concentrating Judgement: Poor Medications Medications Current Medications Clonidine (Clonidine 0.2 Mg Patch.Tdwk) 0.2 mg TRANSDERMA We@0900 [facility]; Protocol Docusate Sodium (Docusate Sodium 100 Mg Capsule) 100 mg PO DAILY PRN PRN Reason: Constipation Heparin Sodium (Porcine) (Heparin Sodium,Porcine 5,000 Unit/Ml Vial) 5,000 unit SUBCUT Q8H [facility] Last Admin: 06/17/23 13:11 Dose: Not Given Hydralazine HCl (Hydralazine Hcl 20 Mg/Ml Vial) 10 mg IVPUSH Q6H PRN; Protocol PRN Reason: Htn Last Admin: 06/16/23 23:41 Dose: 10 mg Ceftriaxone Sodium 1 gm/ (Sodium Chloride) 50 mls @ 100 mls/hr IV Q24H [facility] Last Infusion: 06/17/23 15:32 Dose: Infused Potassium Phosphate (Kphos) 15 mmol in 250 mls @ 62.5 mls/hr IV Q4H [facility] Stop: 06/18/23 00:14 Last Admin: 06/17/23 13:16 Dose: 62.5 mls/hr Dextrose/Sodium Chloride (D51/2ns) 1,000 mls @ 70 mls/hr IVCONT .[id number] [facility] Lorazepam (Lorazepam 0.5 Mg Tablet) 0.5 mg PO BEDTIME PRN PRN Reason: Insomnia Last Admin: 06/16/23 23:41 Dose: 0.5 mg Quetiapine Fumarate (Quetiapine Fumarate 25 Mg Tablet) 25 mg PO BID [facility] Sodium Chloride (0.9 % Sodium Chloride Flush 3 Ml Syringe) 3 ml IVFLUSH QSHIFT [facility] Last Admin: 06/17/23 09:16 Dose: Not Given Tamsulosin HCl (Tamsulosin Hcl 0.4 Mg Capsule) 0.4 mg PO DAILY [facility] Last Admin: 06/17/23 09:20 Dose: Not Given Allergies Allergies Allergy/AdvReac Type Severity Reaction Status Date / Time risperidone [From Risperdal] Allergy Intermediate UNKNOWN Verified 05/12/23 13:13 Sulfa (Sulfonamide Allergy Intermediate rash Verified 05/12/23 13:13 Antibiotics) From BENADRYL Allergy Intermediate DIZZY Uncoded 02/14/23 11:47 Assessment & Plan Assessment & Plan (1) Severe recurrent major depression w/psychotic features, mood-congruent: Status: Acute Code(s): F33.3 - Major depressive disorder, recurrent, severe with psychotic symptoms (2) Dementia: Qualifiers: Dementia type: unspecified type Dementia severity: mild Dementia behavioral or psychological symptom: unspecified whether behavioral, psychotic, or mood disturbance or anxiety Qualified Code(s): F03.A0 - Unspecified dementia, mild, without behavioral disturbance, psychotic disturbance, mood disturbance, and anxiety Status: Acute Code(s): F03.90 - Unspecified dementia, unspecified severity, without behavioral disturbance, psychotic disturbance, mood disturbance, and anxiety Plan Continue current plan. Medication suggestions from 06/16 continue if she will accept one of them (pill, liquid, dissovable offered) JESSICA to be scheduled Court 06/23/23. Total time managing care of this patient today ____ minutes. Informed Consent: does not understand
[2023-06-17 16:23] LABS: Potassium 4.8 mmol/L (3.3-5.1)
[2023-06-17] MEDS: hydrALAZINE HCl 20 MG/ML VIAL 10 MG IVPUSH (16:29)
[2023-06-17] MEDS: Dextrose 5 % and 0.45 % NaCl 1,000 ML 70 ML IVCONT (16:30)
[2023-06-17] MEDS: OLANZapine 10 MG VIAL 5 MG IM (19:57)
--- NOTE | 2023-06-17 21:02 | PC.NURSE ---
This nurse was notified at 20:00 by 1:1 sitter Pt is having increased agitation, combativeness, resisting care and vital signs, attempting to pull at IV line, Pt had scheduled PO seroquel due, Pt refusing all PO mediations, MD Dr Gorman made aware, IM Zyprexa ordered, Medicaiton given per AUG, upon reassessent of Pt at 21:00 Pt resting comfortably in bed, respirations are even and unlabored, 1:[address], call vasquez within reach.
[2023-06-18 03:06] VITALS: BP 147/63; PULSE 99; RESP 20; TEMP 36.2; O2SAT 94
[2023-06-18] MEDS: Dextrose 5 % and 0.45 % NaCl 1,000 ML 70 ML IVCONT (03:20)
--- NOTE | 2023-06-18 06:33 | PC.NURSE ---
Pt has 0ml urine output overnight, Pt has IV fluids running and is taking PO fluids, bladder scanned for 566ml, MD Dr Gorman made aware, new order for gunn catheter, Gunn inserted by die repairer trimmer dies with immediate output of 800ml, Gunn insertion and output documented, Pt tolerated well, Pt resting in bed with call vasquez in reach and 1:1 sitter at bedside, no signs of distress, respirations even and unlabored.
[2023-06-18 07:02] VITALS: BP 126/64; PULSE 87; RESP 18; TEMP 36.6; O2SAT 95
[2023-06-18] MEDS: Tamsulosin HCL 0.4 MG CAPSULE PO (09:13)
[2023-06-18] MEDS: QUEtiapine Fumarate 25 MG TABLET PO (09:13)
[2023-06-18 10:20] LABS: Anion Gap 14 (12-20); Blood Urea Nitrogen 11 mg/dL (9-16); Calcium 8.9 mg/dL (8.4-10.2); Carbon Dioxide 24 mmol/L (22-29); Chloride 108 mmol/L (96-108); Estimated Glomerular Filt Rate > 60; Glucose Random 149 mg/dL (60-115); Sodium 143 mmol/L (135-145)
--- NOTE | 2023-06-18 10:21 | MHC.CM.PN ---
CM left a detailed message for Patient's /HCP/Boris @ listed #, again requesting a copy of Patient's HCP. CM will follow.
--- NOTE | 2023-06-18 10:33 | MHC.CM.PN ---
CM spoke with PCP/Dr. Brittany Middleton's office; there is no HCP at that office. CM will follow.
[2023-06-18 10:56] VITALS: BP 120/56; PULSE 94; RESP 18; TEMP 36.2; O2SAT 96
--- NOTE | 2023-06-18 13:18 | MHC.CARE ---
RAD Team conducted statewide [place] bed[place], unfortunately no beds available. RAD Team will continue bedsearch tomorrow (06/19) if deemed appropriate
--- NOTE | 2023-06-18 14:47 | P.PNIM_ITS ---
Subjective Subjective Date of Service: 06/19/23 Interval History: abnormal labs, tachycardia, dehydration Review of Systems ate breakfast and lunch, no fevers Physical Exam 2 Vital Signs: Vital Signs: Last Vital Signs Temp 97.2 F 06/18/23 10:56 Pulse 94 06/18/23 10:56 Resp 18 06/18/23 10:56 BP 120/56 L 06/18/23 10:56 Pulse Ox 96 06/18/23 10:56 O2 Del Method Room Air 06/18/23 10:56 Appearance: alert,more calm cvs: rrr, [id number] . res:air entry fair ,no rales or wheezing abd: no rebound or guarding ,nt, bs present. ext pulses present , no cyanosis . neuro:nonfoca Objective Data Active Medications Clonidine (Clonidine 0.2 Mg Patch.Tdwk) 0.2 mg TRANSDERMA We@0900 [facility]; Protocol Docusate Sodium (Docusate Sodium 100 Mg Capsule) 100 mg PO DAILY PRN PRN Reason: Constipation Heparin Sodium (Porcine) (Heparin Sodium,Porcine 5,000 Unit/Ml Vial) 5,000 unit SUBCUT Q8H [facility] Last Admin: 06/18/23 11:25 Dose: Not Given Documented By: TED Non-Admin Reason: Patient Refused Hydralazine HCl (Hydralazine Hcl 20 Mg/Ml Vial) 10 mg IVPUSH Q6H PRN; Protocol PRN Reason: Htn Last Admin: 06/17/23 16:29 Dose: 10 mg Documented By: JAMEE Ceftriaxone Sodium 1 gm/ (Sodium Chloride) 50 mls @ 100 mls/hr IV Q24H [facility] Last Infusion: 06/18/23 13:37 Dose: Infused Documented By: TED Lorazepam (Lorazepam 0.5 Mg Tablet) 0.5 mg PO BEDTIME PRN PRN Reason: Insomnia Last Admin: 06/16/23 23:41 Dose: 0.5 mg Documented By: BUSTER Quetiapine Fumarate (Quetiapine Fumarate 25 Mg Tablet) 25 mg PO BID [facility] Last Admin: 06/18/23 09:13 Dose: 25 mg Documented By: TED Sodium Chloride (0.9 % Sodium Chloride Flush 3 Ml Syringe) 3 ml IVFLUSH QSHIFT [facility] Last Admin: 06/18/23 09:04 Dose: 3 ml Documented By: TED Tamsulosin HCl (Tamsulosin Hcl 0.4 Mg Capsule) 0.4 mg PO DAILY [facility] Last Admin: 06/18/23 09:13 Dose: 0.4 mg Documented By: TED Labs 06/17/23 06:11 06/18/23 22:07 Labs: Laboratory Results - last 24 hr 06/18/23 09:50 Anion Gap 14 Estim Creat Clear Calc TNP Estimated GFR > 60 Random Glucose 149 H Calcium 8.9 Assessment and Plan (1) Severe recurrent major depression w/psychotic features, mood-congruent: Status: Acute Plan 72-year-old female with a PMH significant for?unspecified mild dementia/cognitive impairment, MDD, and POONAM who was admitted to M5 psych unit?for increasing depression and agitation. On the unit patient has been steadily declining for the past week. Has been refusing medications, ECT treatment, and becoming more agitated and hopeless, and moving away from reality. Pt brought to the medical floor for treatment and further evaluation of altered mental status, LAYO, and other abnormal labs. LAYO due to dehydration and improving with IVF improved. Hypokalemia/hypophos:improving moniter renal function/electrolytes. possible metabolic encephalopathy,multifactorial:Altered mental status, patient underlying cognitive impairment and takes Namenda and Aricept, more confused due to dehydration, medications, renal failure and hypernatremia. Treat underlying illness. ct head neg,ammonia fine ,sats fine ,tsh,rpr fine layo and hyponatremia slowly improved. refused eeg. continue supportive care -encouraged for po hydration and intake. neuro eval noted -her symptoms Severe recurrent major depression w/psychotic features, mood-congruent:,eeg can be done when patient more accepatble. SIRS criteria --elevated WBC and tachycardia not due infection but rather from dehydration and leuko concentration as evident by all CBC parameter being high and further significantly coming down with no Abx but IVF alone. urine cultures negative,cxr grossly fine . stop IVF ,moniter off antibiotics. above is reviewed with ID-above workup neg ,leucocytosis /tachycardia improving ( likely reactive ) , no further workup. also seen by neuro-please see above. Acute lactic acidosis--not due to sepsis rather due to dehydationand layo -given hydration-renal function seems to be improved. Hypernatremia--due to dehydration and resolved with IVF. Tachycardia d/t dehydration, flactauting ( multifactorial dehydration ,not taking bb-propanalol) tachycardia improving ,stop ivf. Transaminitis AST 54, ALT 66 Likely secondary to LAYO/dehydration moniter Mood disorder Continue home meds, consult Psych HTN: refuses po meds Continue home meds Full Code DVT Prophylaxis: Heparin In my opinion ongoing hospitalization need:need psych place ment. Quality Stroke Does the patient have a stroke diagnosis?: No VTE Prior VTE?: No VTE Risk Level:: Medical - moderate - high VTE Device Contraindication: Treatment Not Indicated VTE Drug Contraindication: N/A - Med Ordered
[2023-06-18 15:26] VITALS: BP 99/53; PULSE 100; RESP 18; TEMP 36.3; O2SAT 93
--- NOTE | 2023-06-18 15:40 | P.CNPS_ITS ---
History of Present Illness Date of Service: 06/18/23 Chief Complaint: LAYO, AMS, failure to thrive Reason for Consult: Follow up, Section 7, Psychotic Depression and decompensation Requesting physician: Lory Paz Discussed with referring provider: Yes (text) Sources of Information: patient interviewed (pt seen, sleeping soundly at 1530) and chart reviewed Additional Sources of Information: Nursing Team HPI Narrative: Pt sleeping soundly, calm, peaceful. One to one with her who reports she believes pt to be improved from when she was last seen. K+ replacement continues Olanzapine 5 mg IM 06/17/231956. Accepted Quetiapine 06/18 a.m. Ate 75% of breakfast and lunch today. Care discussed with Dr. Willett on 06/17/23 evening. Pt has a long history of psychotic depression-requiring urgent ECT interventions in the past. She can decompensate quickly, refusing medications and become very agitated. Dr. Willett suggests emergent ECT from the medical floor as by history she is unable to accept direction, care given her level of psychosis. Also, IV Lorazepam has helped in the past with sx mgt. Independent medical eval from the court is pending. Court scheduled for 06/23/23. Contact with Vesta/Samir for advisement regarding pursuit of ECT prior to JESSICA from medicine. They advise to continue the course with medical treatment and not begin psychiatric treatment if she refuses until court authorizes this. Past Psychiatric History: Patient with long history of recurrent depression with multiple prior psychiatric hospitalizations. 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 [facility] Medical History Dementia Severe recurrent major depression w/psychotic features, mood-congruent Has daytime drowsiness Nocturnal hypoxia Preoperative examination Elevated glucose Screening for colon cancer Screening for diabetes mellitus Obesity (BMI 30-39.9) Confused but orients easily Depression, major, severe recurrence Abnormal serum protein electrophoresis Mild recurrent major depression Anxiety and depression Encounter for Medicare annual wellness exam Removal of nell Depression with anxiety Abdominal distention Weight gain Major depression, recurrent, full remission POONAM (generalized anxiety disorder) Hypothyroidism Hyperparathyroidism Multinodular thyroid Vitamin D deficiency Osteoporosis Surgical History Hx of colonoscopy Hx of kyphoplasty Hx of section Social History: Patient disabled has 1 son. Chronic anxiety has an intermittent difficult relationship with her mostly has not worked Trauma History: None noted Diagnostics Vital Signs (24Hr): Vital Signs - 24 hr 06/17/23 18:23 06/17/23 19:34 06/17/23 22:58 Temperature 98.0 F Pulse Rate 120 H Respiratory Rate 20 20 Blood Pressure 148/118 H 155/68 H 153/69 H Pulse Oximetry 96 95 Oxygen Delivery Method Room Air Room Air 06/18/23 03:06 06/18/23 07:02 06/18/23 10:56 Temperature 97.2 F 97.9 F 97.2 F Pulse Rate 99 87 94 Respiratory Rate 20 18 18 Blood Pressure 147/63 H 126/64 120/56 L Pulse Oximetry 94 95 96 Oxygen Delivery Method Room Air Room Air Room Air 06/18/23 15:26 Temperature 97.4 F Pulse Rate 100 Respiratory Rate 18 Blood Pressure 99/53 L Pulse Oximetry 93 Oxygen Delivery Method Room Air Labs 06/17/23 06:11 06/18/23 09:50 Labs: Laboratory Results - last 48 hr 06/17/23 06/17/23 06/17/23 06:11 11:25 15:54 WBC 15.0 H RBC 5.07 Hgb 15.2 Hct 46.0 MCV 90.7 MCH 30.0 MCHC 33.0 RDW 15.0 Plt Count 287 MPV 11.7 Absolute Nucleated RBC 0.000 Nucleated RBC % (auto) 0.0 Sodium 142 Potassium 2.7 L* 4.8 D Chloride 104 Carbon Dioxide 24 Anion Gap 17 BUN 13 Creatinine 0.86 Estim Creat Clear Calc TNP Estimated GFR > 60 Random Glucose 146 H Calcium 9.1 Phosphorus 1.7 L T.pallidum Ab (EIA) Nonreactive 06/18/23 09:50 WBC RBC Hgb Hct MCV MCH MCHC RDW Plt Count MPV Absolute Nucleated RBC Nucleated RBC % (auto) Sodium 143 Potassium 3.0 L D Chloride 108 Carbon Dioxide 24 Anion Gap 14 BUN 11 Creatinine 0.83 Estim Creat Clear Calc TNP Estimated GFR > 60 Random Glucose 149 H Calcium 8.9 Phosphorus T.pallidum Ab (EIA) Imaging Radiology Impressions: ITS Impressions Chest X-Ray 06/15/23 09:23 IMPRESSION: 1. No significant change when compared to 02/14/2023. 2. Minimal streaky opacities in the retrocardiac region, likely subsegmental atelectasis. 3. Unchanged diffuse interstitial prominence. Head CT 06/16/23 11:00 IMPRESSION: 1. No acute intracranial process seen. 2. Age-related cerebral volume loss. Mental Status Exam Mental Status Exam Patient Appearance: Fatigued Level of Consciousness: Drowsy (sleeping) Patient Behavior: Asleep, Sedated and Fatigued Mood Description: Withdrawn and Relaxed Affect Description: Calm, Withdrawn and Relaxed Patient Cognition Impaired: Yes Ability to Follow Directions: Fair Speech Pattern: No Speech Memory Description: Remote Impaired Depressive Symptoms: Increased Anxiety, Increased Irritability, Changes in Appetite, Loss of Int. in Activity, Hopelessness, Isolating-Friends/Family, Unhappiness, Increased Fatigue and Loss of Energy Judgement: Poor Medications Medications Current Medications Clonidine (Clonidine 0.2 Mg Patch.Tdwk) 0.2 mg TRANSDERMA We@0900 [facility]; Protocol Docusate Sodium (Docusate Sodium 100 Mg Capsule) 100 mg PO DAILY PRN PRN Reason: Constipation Heparin Sodium (Porcine) (Heparin Sodium,Porcine 5,000 Unit/Ml Vial) 5,000 unit SUBCUT Q8H [facility] Last Admin: 06/18/23 11:25 Dose: Not Given Hydralazine HCl (Hydralazine Hcl 20 Mg/Ml Vial) 10 mg IVPUSH Q6H [facility]N; Protocol PRN Reason: Htn Last Admin: 06/17/23 16:29 Dose: 10 mg Ceftriaxone Sodium 1 gm/ (Sodium Chloride) 50 mls @ 100 mls/hr IV Q24H [facility] Last Infusion: 06/18/23 13:37 Dose: Infused Lorazepam (Lorazepam 0.5 Mg Tablet) 0.5 mg PO BEDTIME PRN PRN Reason: Insomnia Last Admin: 06/16/23 23:41 Dose: 0.5 mg Potassium Chloride (Potassium Chloride Packet 20 Meq Packet) 40 meq PO DAILY [facility] Quetiapine Fumarate (Quetiapine Fumarate 25 Mg Tablet) 25 mg PO BID [facility] Last Admin: 06/18/23 09:13 Dose: 25 mg Sodium Chloride (0.9 % Sodium Chloride Flush 3 Ml Syringe) 3 ml IVFLUSH QSHIFT [facility] Last Admin: 06/18/23 09:04 Dose: 3 ml Tamsulosin HCl (Tamsulosin Hcl 0.4 Mg Capsule) 0.4 mg PO DAILY [facility] Last Admin: 06/18/23 09:13 Dose: 0.4 mg Allergies Allergies Allergy/AdvReac Type Severity Reaction Status Date / Time risperidone [From Risperdal] Allergy Intermediate UNKNOWN Verified 05/12/23 13:13 Sulfa (Sulfonamide Allergy Intermediate rash Verified 05/12/23 13:13 Antibiotics) From BENADRYL Allergy Intermediate DIZZY Uncoded 02/14/23 11:47 Assessment & Plan Assessment & Plan (1) Severe recurrent major depression w/psychotic features, mood-congruent: Status: Acute Code(s): F33.3 - Major depressive disorder, recurrent, severe with psychotic symptoms (2) Dementia: Qualifiers: Dementia type: unspecified type Dementia severity: mild Dementia behavioral or psychological symptom: unspecified whether behavioral, psychotic, or mood disturbance or anxiety Qualified Code(s): F03.A0 - Unspecified dementia, mild, without behavioral disturbance, psychotic disturbance, mood disturbance, and anxiety Status: Acute Code(s): F03.90 - Unspecified dementia, unspecified severity, without behavioral disturbance, psychotic disturbance, mood disturbance, and anxiety Plan 06/18/23- Continue current plan of care, medical support until court decides if psychiatric treatment plan may be continued. Independent medical evaluation pending Court 06/23/23 Total time managing care of this patient today ____ minutes. Informed Consent: does not understand
--- NOTE | 2023-06-18 16:10 | P.CDIM_ITS ---
PROVIDER RESPONSE TEXT: To clarify, the appropriate diagnosis supported by the clinical indicators: Hypokalemia QUERY TEXT: PHYSICIAN'S DOCUMENTATION REQUEST Date of Query: 06/17/2023 09:55 AM EST Patient Name: Judy Rodrigues Admit Date: 06/14/2023 Dear Lory Paz, A review of the medical record indicates additional documentation may be needed. Please review below and update the documentation accordingly. Clinical Indicators: LAB FINDINGS: potassium 3.1 L 2.7 L Fluids Based on the above, is there a diagnosis that correlates with these lab findings: Hypokalemia Labs indicate a diagnosis of (please specify) Other (explain) Clinically unable to determine (explain) Thank you, Delphine Sunshine, CCS, CDIS Use of terms such as suspected, likely, concern for, or probable (associated with a specific diagnosi s that is being evaluated, monitored, or treated as if it exists) are acceptable and can be coded in the inpatient se tting, when documented at the time of discharge. Please use your independent medical judgment in providing your response. THIS QUERY IS PART OF THE PERMANENT MEDICAL RECORD
[2023-06-18] MEDS: Potassium Chloride Packet 20 MEQ PACKET 40 MEQ PO (17:36)
[2023-06-18 20:00] VITALS: BP 154/76; PULSE 82; RESP 20; TEMP 36.6; O2SAT 94
[2023-06-18] MEDS: Potassium Phosphate/NS 15 MMOL/250 ML PLAST..BAG 62.5 MMOL IV (21:12)
[2023-06-18] MEDS: OLANZapine 10 MG VIAL 5 MG IM (21:26)
[2023-06-18] MEDS: Heparin Sodium,Porcine 5,000 UNIT/ML VIAL 5000 UNIT SUBCUT (21:28)
[2023-06-18 22:20] LABS: Potassium 3.1 mmol/L (3.3-5.1)
[2023-06-18 23:06] VITALS: BP 132/72; PULSE 82; RESP 18; TEMP 36.6; O2SAT 98
[2023-06-19] MEDS: Heparin Sodium,Porcine 5,000 UNIT/ML VIAL 5000 UNIT SUBCUT ×2 (03:55→21:53)
[2023-06-19 04:00] VITALS: BP 126/64; PULSE 114; RESP 20; TEMP 36.4; O2SAT 96
[2023-06-19 08:00] VITALS: BP 164/83; PULSE 97; RESP 20; TEMP 37.1; O2SAT 97
--- NOTE | 2023-06-19 09:15 | MHC.CM.PN ---
Patient s medically cleared for dc; RAD Team is conducting a statewide [place] bedsearch. CM will follow.
[2023-06-19] MEDS: Potassium Phosphate/NS 15 MMOL/250 ML PLAST..BAG 62.5 MMOL IV (10:16)
--- NOTE | 2023-06-19 11:02 | P.CNUR_ITS ---
History of Present Illness Consult details Consult date: 06/19/23 Requesting physician: Lory Paz Narrative: 72-year-old female with a PMH significant for?unspecified mild dementia/cognitive impairment, MDD, and POONAM who was admitted to M5 psych unit?for increasing depression and agitation. Hospitalist consult was made Labs were obtained noting abnormalities significant for leukocytosis of 20.7, BUN 59, creatinine 1.66, lactic acid 4.3, and the patient was brought to the medical floor for treatment and further evaluation of altered mental status, LAYO, and other abnormal labs. Consult requested for urinary retention: Gunn currently in place, urine c/s 06/14/23 - no growth. Review of Systems 2 Review of Systems: as per H & P. Unable to obbtain from patient due to pt confused PMFSH Past Medical History Medical History Dementia Severe recurrent major depression w/psychotic features, mood-congruent Has daytime drowsiness Nocturnal hypoxia Preoperative examination Elevated glucose Screening for colon cancer Screening for diabetes mellitus Obesity (BMI 30-39.9) Confused but orients easily Depression, major, severe recurrence Abnormal serum protein electrophoresis Mild recurrent major depression Anxiety and depression Encounter for Medicare annual wellness exam Removal of nell Depression with anxiety Abdominal distention Weight gain Major depression, recurrent, full remission POONAM (generalized anxiety disorder) Hypothyroidism Hyperparathyroidism Multinodular thyroid Vitamin D deficiency Osteoporosis Family History Family History Father Myocardial infarction CVD (cardiovascular disease) Mother Dementia Alzheimer disease Other Mental health disorder Surgical History Surgical History Hx of colonoscopy Hx of kyphoplasty Hx of section Social History Social History Household Members: Spouse Housing: House Do you presently have visiting nurse or other home services: No Alcohol intake: never Comment: 1:1 sitter Patient Tobacco Use Status: Never used Tobacco e-Cigarette/Vaping Use: Never Used Second Hand Smoke Exposure: No Use of substances other than those prescribed or required for medical reasons: No Currently Displaying Signs/Symptoms of Drug Intoxication Withdrawal: No Have you been hit, kicked, punched, or otherwise hurt by someone within the past year? If so, by whom?: No Do you feel safe in your current relationship?: Yes Is there a partner from a previous relationship who is making you feel unsafe now?: No Are you made to feel afraid or neglected: No Advance Directives: No Advance Directives Information Provided: No Guardian: No Do you have thoughts of harming others: None Do you have a plan to hurt others: No Plan Recently lost weight without trying: No Patient : No service: No Current occupational status: unemployed Sexual orientation: Straight/Heterosexual Cognitive needs: No Hearing needs: No Meds Allergies Allergy/AdvReac Type Severity Reaction Status Date / Time risperidone [From Risperdal] Allergy Intermediate UNKNOWN Verified 05/12/23 13:13 Sulfa (Sulfonamide Allergy Intermediate rash Verified 05/12/23 13:13 Antibiotics) From BENADRYL Allergy Intermediate DIZZY Uncoded 02/14/23 11:47 Active Medications: Current Medications Clonidine (Clonidine 0.2 Mg Patch.Tdwk) 0.2 mg TRANSDERMA We@0900 [facility]; Protocol Docusate Sodium (Docusate Sodium 100 Mg Capsule) 100 mg PO DAILY PRN PRN Reason: Constipation Heparin Sodium (Porcine) (Heparin Sodium,Porcine 5,000 Unit/Ml Vial) 5,000 unit SUBCUT Q8H [facility] Last Admin: 06/19/23 03:55 Dose: 5,000 unit Hydralazine HCl (Hydralazine Hcl 20 Mg/Ml Vial) 10 mg IVPUSH Q6H [facility]N; Protocol PRN Reason: Htn Last Admin: 06/17/23 16:29 Dose: 10 mg Ceftriaxone Sodium 1 gm/ (Sodium Chloride) 50 mls @ 100 mls/hr IV Q24H [facility] Last Infusion: 06/18/23 13:37 Dose: Infused Potassium Phosphate (Kphos) 15 mmol in 250 mls @ 62.5 mls/hr IV ONCE ONE Stop: 06/19/23 11:37 Last Admin: 06/19/23 10:16 Dose: 62.5 mls/hr Lorazepam (Lorazepam 0.5 Mg Tablet) 0.5 mg PO BEDTIME PRN PRN Reason: Insomnia Last Admin: 06/16/23 23:41 Dose: 0.5 mg Potassium Chloride (Potassium Chloride Packet 20 Meq Packet) 40 meq PO DAILY [facility] Last Admin: 06/19/23 10:16 Dose: 40 meq Quetiapine Fumarate (Quetiapine Fumarate 25 Mg Tablet) 25 mg PO BID [facility] Last Admin: 06/19/23 10:17 Dose: 25 mg Sodium Chloride (0.9 % Sodium Chloride Flush 3 Ml Syringe) 3 ml IVFLUSH QSHIFT [facility] Last Admin: 06/19/23 10:17 Dose: 3 ml Tamsulosin HCl (Tamsulosin Hcl 0.4 Mg Capsule) 0.4 mg PO DAILY [facility] Last Admin: 06/19/23 10:17 Dose: 0.4 mg Home Medications Medication Instructions Recorded Confirmed Last Taken Type doxepin 25 mg capsule 50 mg PO BEDTIME 06/15/23 06/15/23 Unknown History lumateperone 21 mg capsule 21 mg PO DAILY@1700 06/15/23 06/15/23 Unknown History memantine 5 mg tablet 10 mg PO BID 06/15/23 06/15/23 Unknown History Physical Exam 2 Vital Signs: Vital Signs: Last Vital Signs Temp 98.7 F 06/19/23 08:00 Pulse 97 06/19/23 08:00 Resp 20 06/19/23 08:00 BP 164/83 H 06/19/23 08:00 Pulse Ox 97 06/19/23 08:00 O2 Del Method Room Air 06/19/23 08:00 Const: General: cooperative, healthy appearing and no acute distress O rientation/consciousness: patient oriented x3 HEENT: Head: Yes normal to inspection, Yes normocephalic and Yes atraumatic Eyes: Conjunctivae: conjunctivae normal Neck: Neck: Yes normal visual inspection and Yes trachea midline Chest: Chest palpation & inspection: normal inspection of the chest Resp: Effort & Inspection: normal respiratory effort Cardio: Rate: regular rate GI: Inspection: Yes normal to inspection Palpation (GI): Soft to palpation : Other: gunn in place Skin: General skin exam: no rashes or lesions noted Neuro: General: patient oriented x3 Extrem: General: No edema Psych: Appearance: grossly normal Results Labs 06/17/23 06:11 06/18/23 22:07 Labs: Abnormal lab results 06/18/23 Range/Units 22:07 Potassium 3.1 L (3.3-5.1) mmol/L BMP 06/18/23 22:07 Potassium 3.1 L Urine 06/14/23 Range/Units 19:30 Urine Color Yellow Urine Appearance Clear Urine pH 6.0 (5.0-9.0) Ur Specific [place] 1.025 (1.005-1.025) Urine Protein 30 (1+) H (Neg-Trace) mg/dL Urine Glucose (UA) Negative (Negative) mg/dL All other labs normal. Assessment and Plan (1) Dementia: Qualifiers: Dementia type: unspecified type Dementia severity: mild Dementia behavioral or psychological symptom: unspecified whether behavioral, psychotic, or mood disturbance or anxiety Qualified Code(s): F03.A0 - Unspecified dementia, mild, without behavioral disturbance, psychotic disturbance, mood disturbance, and anxiety Status: Acute (2) Urinary retention: Status: Acute Plan Flomax started Cont gunn for now. Procedures Date of Service Date of Service: 06/19/23
[2023-06-19 12:00] VITALS: BP 144/84; PULSE 104; RESP 22; TEMP 37.2; O2SAT 98
--- NOTE | 2023-06-19 14:12 | HO.PM.IMPN ---
Subjective Subjective Date of Service: 06/19/23 Interval History: depression ,agitation electrolyte abnormalities Review of Systems ate breakfast and lunch, no fevers Physical Exam Vital Signs: Vital Signs: Last Vital Signs Temp 99.0 F 06/19/23 12:00 Pulse 104 H 06/19/23 12:00 Resp 22 H 06/19/23 12:00 BP 144/84 H 06/19/23 12:00 Pulse Ox 98 06/19/23 12:00 O2 Del Method Room Air 06/19/23 12:00 Appearance: alert,more calm cvs: rrr, [id number] . res:air entry fair ,no rales or wheezing abd: no rebound or guarding ,nt, bs present. ext pulses present , no cyanosis . neuro:nonfocal Objective Data Active Medications Clonidine (Clonidine 0.2 Mg Patch.Tdwk) 0.2 mg TRANSDERMA We@0900 [facility]; Protocol Docusate Sodium (Docusate Sodium 100 Mg Capsule) 100 mg PO DAILY PRN PRN Reason: Constipation Heparin Sodium (Porcine) (Heparin Sodium,Porcine 5,000 Unit/Ml Vial) 5,000 unit SUBCUT Q8H [facility] Last Admin: 06/19/23 13:04 Dose: Not Given Documented By: TED Non-Admin Reason: Patient Refused Hydralazine HCl (Hydralazine Hcl 20 Mg/Ml Vial) 10 mg IVPUSH Q6H PRN; Protocol PRN Reason: Htn Last Admin: 06/17/23 16:29 Dose: 10 mg Documented By: JAMEE Ceftriaxone Sodium 1 gm/ (Sodium Chloride) 50 mls @ 100 mls/hr IV Q24H [facility] Last Infusion: 06/18/23 13:37 Dose: Infused Documented By: TED Lorazepam (Lorazepam 0.5 Mg Tablet) 0.5 mg PO BEDTIME PRN PRN Reason: Insomnia Last Admin: 06/16/23 23:41 Dose: 0.5 mg Documented By: BUSTER Potassium Chloride (Potassium Chloride Packet 20 Meq Packet) 40 meq PO DAILY [facility] Last Admin: 06/19/23 13:22 Dose: Not Given Documented By: TED Non-Admin Reason: Patient Refused Quetiapine Fumarate (Quetiapine Fumarate 25 Mg Tablet) 25 mg PO BID [facility] Last Admin: 06/19/23 13:22 Dose: Not Given Documented By: TED Non-Admin Reason: Patient Refused Sodium Chloride (0.9 % Sodium Chloride Flush 3 Ml Syringe) 3 ml IVFLUSH QSHIFT [facility] Last Admin: 06/19/23 10:17 Dose: 3 ml Documented By: TED Tamsulosin HCl (Tamsulosin Hcl 0.4 Mg Capsule) 0.4 mg PO DAILY [facility] Last Admin: 06/19/23 13:22 Dose: Not Given Documented By: TED Non-Admin Reason: Patient Refused Labs 06/17/23 06:11 06/18/23 22:07 Assessment and Plan (1) Urinary retention: Status: Acute (2) Hypokalemia: Status: Acute Plan 72-year-old female with a PMH significant for?unspecified mild dementia/cognitive impairment, MDD, and POONAM who was admitted to M5 psych unit?for increasing depression and agitation. On the unit patient has been steadily declining for the past week. Has been refusing medications, ECT treatment, and becoming more agitated and hopeless, and moving away from reality. Pt brought to the medical floor for treatment and further evaluation of altered mental status, LAYO, and other abnormal labs. LAYO due to dehydration and improving with IVF improved. Hypokalemia/hypophos:improving moniter renal function/electrolytes. possible metabolic encephalopathy,multifactorial:Altered mental status, patient underlying cognitive impairment and takes Namenda and Aricept, more confused due to dehydration, medications, renal failure and hypernatremia. Treat underlying illness. ct head neg,ammonia fine ,sats fine ,tsh,rpr fine layo and hyponatremia slowly improved. refused eeg. continue supportive care -encouraged for po hydration and intake. neuro eval noted -her symptoms Severe recurrent major depression w/psychotic features, mood-congruent:,eeg can be done when patient more accepatble,has intermittent agitation. SIRS criteria --elevated WBC and tachycardia not due infection but rather from dehydration and leuko concentration as evident by all CBC parameter being high and further significantly coming down with no Abx but IVF alone. urine cultures negative,cxr grossly fine . stop IVF ,moniter off antibiotics. above is reviewed with ID-above workup neg ,leucocytosis /tachycardia improving ( likely reactive ) , no further workup. also seen by neuro-please see above. Acute lactic acidosis--not due to sepsis rather due to dehydationand layo -given hydration-renal function seems to be improved. Hypernatremia--due to dehydration and resolved with IVF. Tachycardia d/t dehydration, flactauting ( multifactorial dehydration ,not taking bb-propanalol) tachycardia improving ,stop ivf. Transaminitis AST 54, ALT 66 Likely secondary to LAYO/dehydration moniter Mood disorder Continue home meds, consult Psych HTN: refuses po meds Continue home meds urinary retention: flomax , urology eval-placed gunn. Full Code DVT Prophylaxis: Heparin In my opinion ongoing hospitalization need:need psych place ment.psych is aware to follow up. Quality Stroke Does the patient have a stroke diagnosis?: No VTE Prior VTE?: No VTE Risk Level:: Medical - moderate - high VTE Device Contraindication: Treatment Not Indicated VTE Drug Contraindication: N/A - Med Ordered
--- NOTE | 2023-06-19 16:57 | HO.PSYCHPN ---
Subjective Subjective Date of Service: 06/19/23 Reason For Visit: LAYO, AMS, failure to thrive Interim History: Met?with?patient;?discussed?with?nursing;?discussed?with?hospitalist Patient?remains?psychotic. pt agitated, delusional, trying to pull out gunn catheter...asking for help, please help me... Carver Hand offered medication to help and she nodded yes, again asking to please help. -ordered Zyprexa 5mg IM since pt too disorganized to take PO -considered Haldol since pt has IV, however Haldol?presents?greater?risk?for QTc?prolongation?so?will use zyprexa for now -also added Ativan 0.5mg daily prn for anxiety/agitation which can also be ordered IV Mental Status Exam Mental Status Exam Patient Appearance: Unkempt Level of Consciousness: Awake, Restless and Combative Patient Behavior: Combative and Confused Mood Description: Fearful Affect Description: Anxious Patient Cognition Impaired: Yes Ability to Follow Directions: Poor Speech Pattern: Rambling Memory Description: Remote Impaired Delusions: Present Thought Process: Disoriented and Goal Oriented Thought Content: positive for Obsessional Thoughts Depressive Symptoms: Increased Anxiety, Increased Irritability, Changes in Appetite, Loss of Int. in Activity, Hopelessness, Isolating-Friends/Family, Unhappiness, Increased Fatigue and Loss of Energy Judgement: Poor Diagnostics Vital Signs (24Hr): Vital Signs - 24 hr 06/18/23 20:00 06/18/23 23:06 06/19/23 04:00 Temperature 97.8 F 97.8 F 97.5 F Pulse Rate 82 82 114 H Respiratory Rate 20 18 20 Blood Pressure 154/76 H 132/72 126/64 Pulse Oximetry 94 98 96 Oxygen Delivery Method Room Air Room Air Room Air 06/19/23 08:00 06/19/23 12:00 Temperature 98.7 F 99.0 F Pulse Rate 97 104 H Respiratory Rate 20 22 H Blood Pressure 164/83 H 144/84 H Pulse Oximetry 97 98 Oxygen Delivery Method Room Air Room Air Labs 06/17/23 06:11 06/18/23 22:07 Labs: Laboratory Results - last 48 hr 06/18/23 06/18/23 09:50 22:07 Sodium 143 Potassium 3.0 L D 3.1 L Chloride 108 Carbon Dioxide 24 Anion Gap 14 BUN 11 Creatinine 0.83 Estim Creat Clear Calc TNP Estimated GFR > 60 Random Glucose 149 H Calcium 8.9 Imaging Radiology Impressions: ITS Impressions Chest X-Ray 06/15/23 09:23 IMPRESSION: 1. No significant change when compared to 02/14/2023. 2. Minimal streaky opacities in the retrocardiac region, likely subsegmental atelectasis. 3. Unchanged diffuse interstitial prominence. Head CT 06/16/23 11:00 IMPRESSION: 1. No acute intracranial process seen. 2. Age-related cerebral volume loss. Medications Medications Current Medications Clonidine (Clonidine 0.2 Mg Patch.Tdwk) 0.2 mg TRANSDERMA We@0900 [facility]; Protocol Docusate Sodium (Docusate Sodium 100 Mg Capsule) 100 mg PO DAILY PRN PRN Reason: Constipation Heparin Sodium (Porcine) (Heparin Sodium,Porcine 5,000 Unit/Ml Vial) 5,000 unit SUBCUT Q8H [facility] Last Admin: 06/19/23 13:04 Dose: Not Given Hydralazine HCl (Hydralazine Hcl 20 Mg/Ml Vial) 10 mg IVPUSH Q6H PRN; Protocol PRN Reason: Htn Last Admin: 06/17/23 16:29 Dose: 10 mg Ceftriaxone Sodium 1 gm/ (Sodium Chloride) 50 mls @ 100 mls/hr IV Q24H [facility] Last Infusion: 06/19/23 15:03 Dose: Infused Lorazepam (Lorazepam 0.5 Mg Tablet) 0.5 mg PO BEDTIME PRN PRN Reason: Insomnia Last Admin: 06/16/23 23:41 Dose: 0.5 mg Lorazepam (Lorazepam 0.5 Mg Tablet) 0.5 mg PO DAILY PRN PRN Reason: anxiety/agitation Potassium Chloride (Potassium Chloride Packet 20 Meq Packet) 40 meq PO DAILY [facility] Last Admin: 06/19/23 13:22 Dose: Not Given Quetiapine Fumarate (Quetiapine Fumarate 25 Mg Tablet) 25 mg PO BID [facility] Last Admin: 06/19/23 13:22 Dose: Not Given Sodium Chloride (0.9 % Sodium Chloride Flush 3 Ml Syringe) 3 ml IVFLUSH QSHIFT [facility] Last Admin: 06/19/23 14:34 Dose: 3 ml Tamsulosin HCl (Tamsulosin Hcl 0.4 Mg Capsule) 0.4 mg PO DAILY [facility] Last Admin: 06/19/23 13:22 Dose: Not Given Allergies Allergies Allergy/AdvReac Type Severity Reaction Status Date / Time risperidone [From Risperdal] Allergy Intermediate UNKNOWN Verified 05/12/23 13:13 Sulfa (Sulfonamide Allergy Intermediate rash Verified 05/12/23 13:13 Antibiotics) From BENADRYL Allergy Intermediate DIZZY Uncoded 02/14/23 11:47 Assessment & Plan Assessment & Plan (1) Psychotic depression: Status: Acute Code(s): F32.3 - Major depressive disorder, single episode, severe with psychotic features (2) Dementia: Qualifiers: Dementia behavioral or psychological symptom: unspecified whether behavioral, psychotic, or mood disturbance or anxiety Dementia severity: mild Dementia type: unspecified type Qualified Code(s): F03.A0 - Unspecified dementia, mild, without behavioral disturbance, psychotic disturbance, mood disturbance, and anxiety Status: Acute Code(s): F03.90 - Unspecified dementia, unspecified severity, without behavioral disturbance, psychotic disturbance, mood disturbance, and anxiety (3) Urinary retention: Status: Acute Code(s): R33.9 - Retention of urine, unspecified (4) Hypokalemia: Status: Acute Code(s): E87.6 - Hypokalemia Plan Patient?remains?psychotic. pt agitated, delusional, trying to pull out gunn catheter...asking for help, please help me... Carver Hand offered medication to help and she nodded yes, again asking to please help. plan: -ordered Zyprexa 5mg IM since pt too disorganized to take PO -considered Haldol since pt has IV, however Haldol?presents?greater?risk?for QTc?prolongation?so?will use zyprexa for now -also added Ativan 0.5mg daily prn for anxiety/agitation which can also be ordered IV continue supportive care -encouraged for po hydration and intake. neuro eval noted -her symptoms Severe recurrent major depression w/psychotic features, mood-congruent:,eeg can be done when patient more accepatble,has intermittent agitation. Patient educated on: diagnosis and medication risk/benefits Informed Consent: understands, does not understand and further education needed Reason for continued inpatient stay Substantial Risk for: inability to function Time Spent With Patient Time: Total time managing care of this patient today ____ minutes.
[2023-06-19 19:50] VITALS: BP 160/82; PULSE 111; RESP 19; TEMP 36.3; O2SAT 97
[2023-06-19] MEDS: LORazepam 0.5 MG TABLET PO (21:50)
[2023-06-19] MEDS: QUEtiapine Fumarate 25 MG TABLET PO (21:50)
[2023-06-19 23:09] VITALS: BP 137/59; PULSE 95; RESP 16; TEMP 37.1; O2SAT 97
[2023-06-20 03:27] VITALS: BP 157/67; PULSE 87; RESP 14; TEMP 36.4; O2SAT 99
[2023-06-20 06:51] VITALS: BP 160/70; PULSE 80; RESP 20; TEMP 36.7; O2SAT 100
[2023-06-20] MEDS: Potassium Chloride Packet 20 MEQ PACKET 40 MEQ PO (08:26)
[2023-06-20] MEDS: Dextrose 5 % and 0.45 % NaCl 1,000 ML 80 ML IVCONT ×2 (08:28→20:33)
[2023-06-20] MEDS: QUEtiapine Fumarate 25 MG TABLET PO ×2 (08:32→19:23)
[2023-06-20 11:15] VITALS: BP 148/72; PULSE 97; RESP 18; TEMP 36.8; O2SAT 99
--- NOTE | 2023-06-20 11:55 | P.PNIM_ITS ---
Subjective Subjective Date of Service: 06/20/23 Interval History: mostly calm today Review of Systems offered food again ,she declined no new overnight evants Physical Exam 2 Vital Signs: Vital Signs: Last Vital Signs Temp 98.3 F 06/20/23 11:15 Pulse 97 06/20/23 11:15 Resp 18 06/20/23 11:15 BP 148/72 H 06/20/23 11:15 Pulse Ox 99 06/20/23 11:15 O2 Del Method Room Air 06/20/23 11:15 Appearance: alert,more calm cvs: rrr, [id number] . res:air entry fair ,no rales or wheezing abd: no rebound or guarding ,nt, bs present. ext pulses present , no cyanosis . neuro:nonfocal Objective Data Active Medications Clonidine (Clonidine 0.2 Mg Patch.Tdwk) 0.2 mg TRANSDERMA We@0900 [facility]; Protocol Docusate Sodium (Docusate Sodium 100 Mg Capsule) 100 mg PO DAILY PRN PRN Reason: Constipation Heparin Sodium (Porcine) (Heparin Sodium,Porcine 5,000 Unit/Ml Vial) 5,000 unit SUBCUT Q8H [facility] Last Admin: 06/20/23 04:45 Dose: Not Given Documented By: FAUSTINO Non-Admin Reason: Patient Refused Hydralazine HCl (Hydralazine Hcl 20 Mg/Ml Vial) 10 mg IVPUSH Q6H PRN; Protocol PRN Reason: Htn Last Admin: 06/17/23 16:29 Dose: 10 mg Documented By: JAMEE Ceftriaxone Sodium 1 gm/ (Sodium Chloride) 50 mls @ 100 mls/hr IV Q24H [facility] Last Infusion: 06/19/23 15:03 Dose: Infused Documented By: TED Dextrose/Sodium Chloride (D51/2ns) 1,000 mls @ 80 mls/hr IVCONT .[id number] [facility] Last Admin: 06/20/23 08:28 Dose: 80 mls/hr Documented By: DIWGHT Lorazepam (Lorazepam 0.5 Mg Tablet) 0.5 mg PO BEDTIME PRN PRN Reason: Insomnia Last Admin: 06/19/23 21:50 Dose: 0.5 mg Documented By: FAUSTINO Lorazepam (Lorazepam 0.5 Mg Tablet) 0.5 mg PO DAILY PRN PRN Reason: anxiety/agitation Potassium Chloride (Potassium Chloride Packet 20 Meq Packet) 40 meq PO DAILY [facility] Last Admin: 06/20/23 08:26 Dose: 40 meq Documented By: DWIGHT Quetiapine Fumarate (Quetiapine Fumarate 25 Mg Tablet) 25 mg PO BID [facility] Last Admin: 06/20/23 08:32 Dose: 25 mg Documented By: DWIGHT Sodium Chloride (0.9 % Sodium Chloride Flush 3 Ml Syringe) 3 ml IVFLUSH QSHIFT [facility] Last Admin: 06/20/23 08:38 Dose: 3 ml Documented By: DWIGHT Tamsulosin HCl (Tamsulosin Hcl 0.4 Mg Capsule) 0.4 mg PO DAILY [facility] Last Admin: 06/20/23 08:38 Dose: Not Given Documented By: DWIGHT Non-Admin Reason: Patient Refused Labs 06/17/23 06:11 06/18/23 22:07 Assessment and Plan (1) Psychotic depression: Status: Acute (2) Urinary retention: Status: Acute (3) Hypokalemia: Status: Acute Plan 72-year-old female with a PMH significant for?unspecified mild dementia/cognitive impairment, MDD, and POONAM who was admitted to M5 psych unit?for increasing depression and agitation. On the unit patient has been steadily declining for the past week. Has been refusing medications, ECT treatment, and becoming more agitated and hopeless, and moving away from reality. Pt brought to the medical floor for treatment and further evaluation of altered mental status, LAYO, and other abnormal labs. LAYO due to dehydration and improving with IVF improved. Hypokalemia/hypophos:improving moniter renal function/electrolytes. possible metabolic encephalopathy,multifactorial:Altered mental status, patient underlying cognitive impairment and takes Namenda and Aricept, more confused due to dehydration, medications, renal failure and hypernatremia. Treat underlying illness. ct head neg,ammonia fine ,sats fine ,tsh,rpr fine layo and hyponatremia slowly improved. refused eeg. continue supportive care -encouraged for po hydration and intake. neuro eval noted -her symptoms Severe recurrent major depression w/psychotic features, mood-congruent:,eeg can be done when patient more accepatble,has intermittent agitation. SIRS criteria --elevated WBC and tachycardia not due infection but rather from dehydration and leuko concentration as evident by all CBC parameter being high and further significantly coming down with no Abx but IVF alone. urine cultures negative,cxr grossly fine . stop IVF ,moniter off antibiotics. above is reviewed with ID-above workup neg ,leucocytosis /tachycardia improving ( likely reactive ) , no further workup. also seen by neuro-please see above. Acute lactic acidosis--not due to sepsis rather due to dehydationand layo -given hydration-renal function seems to be improved. Hypernatremia--due to dehydration and resolved with IVF. hypokalemia repleted and improving Tachycardia d/t dehydration, flactauting ( multifactorial dehydration ,not taking bb-propanalol) tachycardia improving ,stop ivf. Transaminitis AST 54, ALT 66 Likely secondary to LAYO/dehydration moniter Mood disorder Continue home meds, consult Psych HTN: refuses po meds Continue home meds urinary retention: flomax , urology eval-placed gunn. Full Code DVT Prophylaxis: Heparin In my opinion ongoing hospitalization need:need psych place ment.psych is aware to follow up. Quality Stroke Does the patient have a stroke diagnosis?: No VTE Prior VTE?: No VTE Risk Level:: Medical - moderate - high VTE Device Contraindication: Treatment Not Indicated VTE Drug Contraindication: N/A - Med Ordered
[2023-06-20] MEDS: LORazepam 0.5 MG TABLET PO ×2 (13:01→19:23)
--- NOTE | 2023-06-20 13:50 | P.CNPS_ITS ---
History of Present Illness Date of Service: 06/20/2023 Chief Complaint: LAYO, AMS, failure to thrive Reason for Consult: follow up Requesting physician: Lory Paz HPI Narrative: Judy had been transferred from in 5 to telemetry because of lack of food and fluid intake, cardiac arrhythmia and transferred yesterday to the medical floor. She continues to be psychotic, very disorganized and having some episodes of agitation, wanting to pull at her IV and tubes. Yesterday she was seen and Zyprexa 5 mg IM was ordered for agitation but she did end up not needing it. She is on one-to-one level of observation. She has not able to respond appropriately to questions. Past Psychiatric History: Patient with long history of recurrent depression with multiple prior psychiatric hospitalizations. 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 no classic bipolar symptoms past depressive psychotic episodes not for a number of years Review of Systems Review of Systems Yes Unobtainable due to mental status PMFSH Medical History Dementia Severe recurrent major depression w/psychotic features, mood-congruent Has daytime drowsiness Nocturnal hypoxia Preoperative examination Elevated glucose Screening for colon cancer Screening for diabetes mellitus Obesity (BMI 30-39.9) Confused but orients easily Depression, major, severe recurrence Abnormal serum protein electrophoresis Mild recurrent major depression Anxiety and depression Encounter for Medicare annual wellness exam Removal of nell Depression with anxiety Abdominal distention Weight gain Major depression, recurrent, full remission POONAM (generalized anxiety disorder) Hypothyroidism Hyperparathyroidism Multinodular thyroid Vitamin D deficiency Osteoporosis Surgical History Hx of colonoscopy Hx of kyphoplasty Hx of section Social History: Patient disabled has 1 son. Chronic anxiety has an intermittent difficult relationship with her mostly has not worked Trauma History: None noted Diagnostics Vital Signs (24Hr): Vital Signs - 24 hr 06/19/23 19:50 06/19/23 23:09 06/20/23 03:27 Temperature 97.4 F 98.8 F 97.5 F Pulse Rate 111 H 95 87 Respiratory Rate 19 16 14 Blood Pressure 160/82 H 137/59 L 157/67 H Pulse Oximetry 97 97 99 Oxygen Delivery Method Room Air Room Air Room Air 06/20/23 06:51 06/20/23 11:15 Temperature 98.1 F 98.3 F Pulse Rate 80 97 Respiratory Rate 20 18 Blood Pressure 160/70 H 148/72 H Pulse Oximetry 100 99 Oxygen Delivery Method Room Air Room Air Labs 06/17/23 06:11 06/18/23 22:07 Labs: Laboratory Results - last 48 hr 06/18/23 22:07 Potassium 3.1 L Imaging Radiology Impressions: ITS Impressions Chest X-Ray 06/15/23 09:23 IMPRESSION: 1. No significant change when compared to 02/14/2023. 2. Minimal streaky opacities in the retrocardiac region, likely subsegmental atelectasis. 3. Unchanged diffuse interstitial prominence. Head CT 06/16/23 11:00 IMPRESSION: 1. No acute intracranial process seen. 2. Age-related cerebral volume loss. Mental Status Exam Mental Status Exam Narrative: In today's visit she is laying in bed but is arousable. She is able to state that she is not doing good. No agitation. She has not been pulling at her tubes and IV. She continues to be disorganized and probably psychotic. Medications Medications Current Medications Clonidine (Clonidine 0.2 Mg Patch.Tdwk) 0.2 mg TRANSDERMA We@0900 [facility]; Protocol Docusate Sodium (Docusate Sodium 100 Mg Capsule) 100 mg PO DAILY PRN PRN Reason: Constipation Heparin Sodium (Porcine) (Heparin Sodium,Porcine 5,000 Unit/Ml Vial) 5,000 unit SUBCUT Q8H [facility] Last Admin: 06/20/23 12:21 Dose: Not Given Hydralazine HCl (Hydralazine Hcl 20 Mg/Ml Vial) 10 mg IVPUSH Q6H PRN; Protocol PRN Reason: Htn Last Admin: 06/17/23 16:29 Dose: 10 mg Ceftriaxone Sodium 1 gm/ (Sodium Chloride) 50 mls @ 100 mls/hr IV Q24H [facility] Last Infusion: 06/20/23 13:00 Dose: Infused Dextrose/Sodium Chloride (D51/2ns) 1,000 mls @ 80 mls/hr IVCONT .[id number] [facility] Last Admin: 06/20/23 08:28 Dose: 80 mls/hr Lorazepam (Lorazepam 0.5 Mg Tablet) 0.5 mg PO BEDTIME PRN PRN Reason: Insomnia Last Admin: 06/19/23 21:50 Dose: 0.5 mg Lorazepam (Lorazepam 0.5 Mg Tablet) 0.5 mg PO DAILY PRN PRN Reason: anxiety/agitation Last Admin: 06/20/23 13:01 Dose: 0.5 mg Potassium Chloride (Potassium Chloride Packet 20 Meq Packet) 40 meq PO DAILY [facility] Last Admin: 06/20/23 08:26 Dose: 40 meq Quetiapine Fumarate (Quetiapine Fumarate 25 Mg Tablet) 25 mg PO BID [facility] Last Admin: 06/20/23 08:32 Dose: 25 mg Sodium Chloride (0.9 % Sodium Chloride Flush 3 Ml Syringe) 3 ml IVFLUSH QSHIFT [facility] Last Admin: 06/20/23 08:38 Dose: 3 ml Tamsulosin HCl (Tamsulosin Hcl 0.4 Mg Capsule) 0.4 mg PO DAILY [facility] Last Admin: 06/20/23 08:38 Dose: Not Given Allergies Allergies Allergy/AdvReac Type Severity Reaction Status Date / Time risperidone [From Risperdal] Allergy Intermediate UNKNOWN Verified 05/12/23 13:13 Sulfa (Sulfonamide Allergy Intermediate rash Verified 05/12/23 13:13 Antibiotics) From BENADRYL Allergy Intermediate DIZZY Uncoded 02/14/23 11:47 Assessment & Plan Assessment & Plan (1) Psychotic depression: Status: Acute Code(s): F32.3 - Major depressive disorder, single episode, severe with psychotic features (2) Dementia: Qualifiers: Dementia type: unspecified type Dementia severity: mild Dementia behavioral or psychological symptom: unspecified whether behavioral, psychotic, or mood disturbance or anxiety Qualified Code(s): F03.A0 - Unspecified dementia, mild, without behavioral disturbance, psychotic disturbance, mood disturbance, and anxiety Status: Acute Code(s): F03.90 - Unspecified dementia, unspecified severity, without behavioral disturbance, psychotic disturbance, mood disturbance, and anxiety Plan Continue current regimen and plans. Continue to use Zyprexa 5 mg IM for agitation. Total time managing care of this patient today ____ minutes. Patient educated on: medication risk/benefits
[2023-06-20 15:37] VITALS: BP 141/73; PULSE 91; RESP 18; TEMP 36.8; O2SAT 98
[2023-06-20 19:14] VITALS: BP 135/65; PULSE 94; RESP 18; TEMP 37.1; O2SAT 99
[2023-06-20] MEDS: Heparin Sodium,Porcine 5,000 UNIT/ML VIAL 5000 UNIT SUBCUT (19:23)
[2023-06-20 23:29] VITALS: BP 116/59; PULSE 78; RESP 18; TEMP 36.6; O2SAT 97
[2023-06-21 04:00] VITALS: BP 118/63; PULSE 82; RESP 18; TEMP 37.2; O2SAT 97
[2023-06-21] MEDS: Dextrose 5 % and 0.45 % NaCl 1,000 ML 80 ML IVCONT (07:37)
[2023-06-21 07:40] VITALS: BP 115/62; PULSE 77; RESP 14; TEMP 36.1; O2SAT 97
[2023-06-21] MEDS: Potassium Chloride Packet 20 MEQ PACKET 40 MEQ PO (08:06)
[2023-06-21] MEDS: QUEtiapine Fumarate 25 MG TABLET PO ×2 (08:06→22:21)
[2023-06-21] MEDS: Tamsulosin HCL 0.4 MG CAPSULE PO (08:06)
[2023-06-21 08:35] LABS: Anion Gap 12 (12-20); Blood Urea Nitrogen 10 mg/dL (9-16); Calcium 8.8 mg/dL (8.4-10.2); Carbon Dioxide 23 mmol/L (22-29); Chloride 110 mmol/L (96-108); Estimated Glomerular Filt Rate > 60; Glucose Random 127 mg/dL (60-115); Potassium 3.7 mmol/L (3.3-5.1); Sodium 141 mmol/L (135-145)
[2023-06-21] MEDS: LORazepam 0.5 MG TABLET PO (09:52)
--- NOTE | 2023-06-21 10:29 | PC.NURSE ---
929: When this RN entered the room, gunn found on the bed with balloon still inflated. While in the room, pt stated I dont want this anymore and pulled her IV out. Attyempted to restart but pt resistent. Po Ativan given with pending result. Will attempt IV if pt cooperative. Dr Paz aware. Will leave gunn out at this time and pt DTV 1500. Plan to monitor bladder scan
[2023-06-21 11:48] VITALS: BP 106/60; PULSE 84; RESP 14; TEMP 36.3; O2SAT 99
[2023-06-21] MEDS: Acetaminophen 325 MG TABLET 650 MG PO (12:02)
[2023-06-21] MEDS: Lidocaine 4 % Patch ADH..PATCH 1 PATCH TRANSDERMA (12:03)
--- NOTE | 2023-06-21 13:31 | P.PNIM_ITS ---
Subjective Subjective Date of Service: 06/21/23 Interval History: seems more awake asking for chicken soup she taken gunn and iv out Review of Systems no new overnight evants Physical Exam 2 Vital Signs: Vital Signs: Last Vital Signs Temp 97.3 F 06/21/23 11:48 Pulse 84 06/21/23 11:48 Resp 14 06/21/23 11:48 BP 106/60 06/21/23 11:48 Pulse Ox 99 06/21/23 11:48 O2 Del Method Room Air 06/21/23 11:48 Appearance: alert,more calm cvs: rrr, [id number] . res:air entry fair ,no rales or wheezing abd: no rebound or guarding ,nt, bs present. ext pulses present , no cyanosis . neuro:nonfocal Objective Data Active Medications Clonidine (Clonidine 0.2 Mg Patch.Tdwk) 0.2 mg TRANSDERMA We@0900 [facility]; Protocol Docusate Sodium (Docusate Sodium 100 Mg Capsule) 100 mg PO DAILY PRN PRN Reason: Constipation Heparin Sodium (Porcine) (Heparin Sodium,Porcine 5,000 Unit/Ml Vial) 5,000 unit SUBCUT Q8H [facility] Last Admin: 06/21/23 11:50 Dose: Not Given Documented By: DWIGHT Non-Admin Reason: Patient Refused Hydralazine HCl (Hydralazine Hcl 20 Mg/Ml Vial) 10 mg IVPUSH Q6H PRN; Protocol PRN Reason: Htn Last Admin: 06/17/23 16:29 Dose: 10 mg Documented By: JAMEE Dextrose/Sodium Chloride (D51/2ns) 1,000 mls @ 80 mls/hr IVCONT .[id number] [facility] Last Admin: 06/21/23 07:37 Dose: 80 mls/hr Documented By: DWIGHT Lidocaine (Lidocaine 4 % Patch Adh..Patch) 1 patch TRANSDERMA DAILY [facility]; Protocol Last Admin: 06/21/23 12:03 Dose: 1 patch Documented By: DWIGHT Lorazepam (Lorazepam 0.5 Mg Tablet) 0.5 mg PO BEDTIME PRN PRN Reason: Insomnia Last Admin: 06/20/23 19:23 Dose: 0.5 mg Documented By: FAUSTINO Lorazepam (Lorazepam 0.5 Mg Tablet) 0.5 mg PO DAILY PRN PRN Reason: anxiety/agitation Last Admin: 06/21/23 09:52 Dose: 0.5 mg Documented By: DWIGHT Potassium Chloride (Potassium Chloride Packet 20 Meq Packet) 40 meq PO DAILY [facility] Last Admin: 06/21/23 08:06 Dose: 40 meq Documented By: DWIGHT Quetiapine Fumarate (Quetiapine Fumarate 25 Mg Tablet) 25 mg PO BID [facility] Last Admin: 06/21/23 08:06 Dose: 25 mg Documented By: DWIGHT Sodium Chloride (0.9 % Sodium Chloride Flush 3 Ml Syringe) 3 ml IVFLUSH QSHIFT [facility] Last Admin: 06/21/23 07:37 Dose: Not Given Documented By: DWIGHT Non-Admin Reason: IV Running Tamsulosin HCl (Tamsulosin Hcl 0.4 Mg Capsule) 0.4 mg PO DAILY [facility] Last Admin: 06/21/23 08:06 Dose: 0.4 mg Documented By: DWIGHT Labs 06/17/23 06:11 06/21/23 07:54 Labs: Laboratory Results - last 24 hr 06/21/23 07:54 Anion Gap 12 Estim Creat Clear Calc TNP Estimated GFR > 60 Random Glucose 127 H Calcium 8.8 Assessment and Plan (1) Urinary retention: Status: Acute (2) Severe recurrent major depression w/psychotic features, mood-congruent: Status: Acute Plan 72-year-old female with a PMH significant for?unspecified mild dementia/cognitive impairment, MDD, and POONAM who was admitted to M5 psych unit?for increasing depression and agitation. On the unit patient has been steadily declining for the past week. Has been refusing medications, ECT treatment, and becoming more agitated and hopeless, and moving away from reality. Pt brought to the medical floor for treatment and further evaluation of altered mental status, LAYO, and other abnormal labs. LAYO due to dehydration and improving with IVF improved. Hypokalemia/hypophos:improving moniter renal function/electrolytes. possible metabolic encephalopathy,multifactorial:Altered mental status, patient underlying cognitive impairment and takes Namenda and Aricept, more confused due to dehydration, medications, renal failure and hypernatremia. Treat underlying illness. ct head neg,ammonia fine ,sats fine ,tsh,rpr fine layo and hyponatremia slowly improved. refused eeg. continue supportive care -encouraged for po hydration and intake. neuro eval noted -her symptoms Severe recurrent major depression w/psychotic features, mood-congruent:,eeg can be done when patient more accepatble,has intermittent agitation. SIRS criteria --elevated WBC and tachycardia not due infection but rather from dehydration and leuko concentration as evident by all CBC parameter being high and further significantly coming down with no Abx but IVF alone. urine cultures negative,cxr grossly fine . stop IVF ,moniter off antibiotics. above is reviewed with ID-above workup neg ,leucocytosis /tachycardia improving ( likely reactive ) , no further workup. also seen by neuro-please see above. Acute lactic acidosis--not due to sepsis rather due to dehydationand layo -given hydration-renal function seems to be improved. Hypernatremia--due to dehydration and resolved with IVF. hypokalemia repleted and improving Tachycardia d/t dehydration, flactauting ( multifactorial dehydration ,not taking bb-propanalol) tachycardia improving ,stop ivf. Transaminitis AST 54, ALT 66 -repeated similar Likely secondary to LAYO/dehydration moniter in 1 week ,consider further workup if still elevated. Mood disorder Continue home meds, consult Psych HTN: refuses po meds Continue home meds urinary retention: flomax , urology eval-taken off gunn. pvr ,use staright cath if 350 ml . Full Code DVT Prophylaxis: Heparin In my opinion ongoing hospitalization need:need psych place ment.psych is aware to follow up. Quality Stroke Does the patient have a stroke diagnosis?: No VTE Prior VTE?: No VTE Risk Level:: Medical - moderate - high VTE Device Contraindication: Treatment Not Indicated VTE Drug Contraindication: N/A - Med Ordered
--- NOTE | 2023-06-21 14:54 | PC.NURSE ---
Pt unable to void after gunn removal. Bladder scanned for >673ml. Dr Paz notified. Straight cathed pt for 700ml yellow urine DTV @2030
[2023-06-21 15:00] VITALS: BP 102/68; PULSE 90; RESP 14; TEMP 36.8; O2SAT 99
[2023-06-21] MEDS: Sodium,Potassium Phosphates POWD.PACK 1 PACKET PO ×2 (16:16→22:21)
--- NOTE | 2023-06-21 16:20 | PC.NURSE ---
Dr Paz aware unable to restart IV at this time. OK to leave out
[2023-06-21 19:19] VITALS: BP 122/60; PULSE 89; RESP 18; TEMP 36.3; O2SAT 98
[2023-06-21] MEDS: Heparin Sodium,Porcine 5,000 UNIT/ML VIAL 5000 UNIT SUBCUT (19:57)
[2023-06-22] VITALS (7 sets, daily range): BP systolic 121–132; BP diastolic 59–78; PULSE 83–99; RESP 16–18; TEMP 36.1–36.8; O2SAT 95–99
[2023-06-22] MEDS: Heparin Sodium,Porcine 5,000 UNIT/ML VIAL 5000 UNIT SUBCUT ×3 (04:43→20:22)
[2023-06-22 06:18] LABS: Estimated Average Glucose 114 mg/dL; Hemoglobin A1c % 5.6 % (<6.0)
[2023-06-22] MEDS: Lidocaine 4 % Patch ADH..PATCH 1 PATCH TRANSDERMA (08:40)
[2023-06-22] MEDS: Sodium,Potassium Phosphates POWD.PACK 1 PACKET PO ×4 (08:41→20:22)
[2023-06-22] MEDS: Tamsulosin HCL 0.4 MG CAPSULE PO (08:42)
[2023-06-22] MEDS: QUEtiapine Fumarate 25 MG TABLET PO ×2 (08:42→20:24)
--- NOTE | 2023-06-22 10:16 | P.PNIM_ITS ---
Subjective Subjective Date of Service: 06/22/23 Interval History: more awake,asking for icecream Review of Systems no new c/o Physical Exam 2 Vital Signs: Vital Signs: Last Vital Signs Temp 98.2 F 06/22/23 07:07 Pulse 97 06/22/23 07:07 Resp 16 06/22/23 07:07 BP 121/78 06/22/23 07:07 Pulse Ox 97 06/22/23 07:07 O2 Del Method Room Air 06/22/23 07:07 Objective Data Active Medications Clonidine (Clonidine 0.2 Mg Patch.Tdwk) 0.2 mg TRANSDERMA We@0900 [facility]; Protocol Docusate Sodium (Docusate Sodium 100 Mg Capsule) 100 mg PO DAILY PRN PRN Reason: Constipation Heparin Sodium (Porcine) (Heparin Sodium,Porcine 5,000 Unit/Ml Vial) 5,000 unit SUBCUT Q8H [facility] Last Admin: 06/22/23 04:43 Dose: 5,000 unit Documented By: HALLIE Hydralazine HCl (Hydralazine Hcl 20 Mg/Ml Vial) 10 mg IVPUSH Q6H PRN; Protocol PRN Reason: Htn Last Admin: 06/17/23 16:29 Dose: 10 mg Documented By: JAMEE Lidocaine (Lidocaine 4 % Patch Adh..Patch) 1 patch TRANSDERMA DAILY [facility]; Protocol Last Admin: 06/22/23 08:40 Dose: 1 patch Documented By: BON Lorazepam (Lorazepam 0.5 Mg Tablet) 0.5 mg PO BEDTIME PRN PRN Reason: Insomnia Last Admin: 06/20/23 19:23 Dose: 0.5 mg Documented By: FAUSTINO Lorazepam (Lorazepam 0.5 Mg Tablet) 0.5 mg PO DAILY PRN PRN Reason: anxiety/agitation Last Admin: 06/21/23 09:52 Dose: 0.5 mg Documented By: DWIGHT Potassium Phos/Sodium Phos (Sodium,Potassium Phosphates Powd.Pack) 1 packet PO QID [facility] Last Admin: 06/22/23 08:41 Dose: 1 packet Documented By: BON Quetiapine Fumarate (Quetiapine Fumarate 25 Mg Tablet) 25 mg PO BID [facility] Last Admin: 06/22/23 08:42 Dose: 25 mg Documented By: BON Sodium Chloride (0.9 % Sodium Chloride Flush 3 Ml Syringe) 3 ml IVFLUSH QSHIFT [facility] Last Admin: 06/22/23 08:43 Dose: Not Given Documented By: BON Non-Admin Reason: No Access Tamsulosin HCl (Tamsulosin Hcl 0.4 Mg Capsule) 0.4 mg PO DAILY [facility] Last Admin: 06/22/23 08:42 Dose: 0.4 mg Documented By: BON Labs 06/17/23 06:11 06/21/23 07:54 Labs: Laboratory Results - last 24 hr 06/22/23 04:37 Estimat Average Glucose 114 Hemoglobin A1c % 5.6 Assessment and Plan (1) Urinary retention: Status: Acute (2) Severe recurrent major depression w/psychotic features, mood-congruent: Status: Acute Plan 72-year-old female with a PMH significant for?unspecified mild dementia/cognitive impairment, MDD, and POONAM who was admitted to M5 psych unit?for increasing depression and agitation. On the unit patient has been steadily declining for the past week. Has been refusing medications, ECT treatment, and becoming more agitated and hopeless, and moving away from reality. Pt brought to the medical floor for treatment and further evaluation of altered mental status, LAYO, and other abnormal labs. LAYO due to dehydration and improving with IVF improved. Hypokalemia/hypophos:improving moniter renal function/electrolytes. possible metabolic encephalopathy,multifactorial:Altered mental status, patient underlying cognitive impairment and takes Namenda and Aricept, more confused due to dehydration, medications, renal failure and hypernatremia. Treat underlying illness. ct head neg,ammonia fine ,sats fine ,tsh,rpr fine layo and hyponatremia slowly improved. refused eeg. continue supportive care -encouraged for po hydration and intake. neuro eval noted -her symptoms Severe recurrent major depression w/psychotic features, mood-congruent:,eeg can be done when patient more accepatble,has intermittent agitation. SIRS criteria --elevated WBC and tachycardia not due infection but rather from dehydration and leuko concentration as evident by all CBC parameter being high and further significantly coming down with no Abx but IVF alone. urine cultures negative,cxr grossly fine . stop IVF ,moniter off antibiotics. above is reviewed with ID-above workup neg ,leucocytosis /tachycardia improving ( likely reactive ) , no further workup. also seen by neuro-please see above. Acute lactic acidosis--not due to sepsis rather due to dehydationand layo -given hydration-renal function seems to be improved. Hypernatremia--due to dehydration and resolved with IVF. hypokalemia repleted and improving Tachycardia d/t dehydration, flactauting ( multifactorial dehydration ,not taking bb-propanalol) tachycardia improving ,stop ivf. Transaminitis AST 54, ALT 66 -repeated similar Likely secondary to LAYO/dehydration moniter in 1 week ,consider further workup if still elevated. Mood disorder Continue home meds, consult Psych HTN: refuses po meds Continue home meds urinary retention: flomax , urology eval-taken off gunn. pvr ,use staright cath if 350 ml . Full Code DVT Prophylaxis: Heparin In my opinion ongoing hospitalization need:need psych place ment.psych is aware to follow up. Quality Stroke Does the patient have a stroke diagnosis?: No VTE Prior VTE?: No VTE Risk Level:: Medical - moderate - high VTE Device Contraindication: Treatment Not Indicated VTE Drug Contraindication: N/A - Med Ordered
--- NOTE | 2023-06-22 12:35 | MHC.CM.PN ---
EMR REVIEWED AND PER MD ROUNDS, PT WILL NEED [facility], BED SEARCH IN PROCESS. CM WILL CONTINUE TO FOLLOW FOR ANY CHANGE IN PLAN.
--- NOTE | 2023-06-22 12:51 | MHC.CARE ---
Rad Team completed a statewide [facility] bed search (see bed search sheet for details). There are no [facility] beds available and no d/c's expected today. Bed search will resume tomorrow if needed.
--- NOTE | 2023-06-22 16:00 | P.CDIM_ITS ---
PROVIDER RESPONSE TEXT: To clarify, the appropriate diagnosis supported by the clinical indicators: Hyponatremia QUERY TEXT: PHYSICIAN'S DOCUMENTATION REQUEST Date of Query: 06/19/2023 08:22 AM EST Patient Name: Judy Rodrigues Admit Date: 06/14/2023 Dear Lory Paz, A review of the medical record indicates additional documentation may be needed. Please review below and update the documentation accordingly. Clinical Indicators: Progress note dated 06/16 - PLAN: patient more confused due to dehydration, medications, renal failure and hypernatremia. tang and hyponatremia slowly improving sodium: 150 H 149 H 146 H 142 Based on the above, clarity of a documented diagnosis within the medical record: Hyponatremia Other (explain) Clinically unable to determine (explain) Thank you, Delphine Sunshine, CCS, CDIS Use of terms such as suspected, likely, concern for, or probable (associated with a specific diagnosi s that is being evaluated, monitored, or treated as if it exists) are acceptable and can be coded in the inpatient se tting, when documented at the time of discharge. Please use your independent medical judgment in providing your response. THIS QUERY IS PART OF THE PERMANENT MEDICAL RECORD
--- NOTE | 2023-06-22 22:38 | PC.NURSE ---
2000 bladder scanned for [address]cath for 700 ML clear yellow urine.
--- NOTE | 2023-06-22 23:01 | P.CNPS_ITS ---
History of Present Illness Date of Service: 06/22/2023 Chief Complaint: LAYO, AMS severe depression with psychosis HPI Narrative: Patient seen in psychiatric follow-up transferred to the medical floor from the psychiatric unit after refusing food and fluids. Patient taking in minimal amount of food some improved fluids. Has had urinary retention requiring straight catheterization question etiology patient with history of psychotic depression responsive to ECT. Has had delusional preoccupation that God wants her and that she is . Court filing for civil commitment and treatment plan was filed. Patient intermittently with severe agitation difficulty with basic ADLs food and fluid intake difficulty with basic ambulation. Past Psychiatric History: Patient with long history of recurrent depression with multiple prior psychiatric hospitalizations. 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 no classic bipolar symptoms past depressive psychotic episodes not for a number of years Patient on straight cath for retention Personal & Social History: See previous lives with [facility] Medical History Dementia Severe recurrent major depression w/psychotic features, mood-congruent Has daytime drowsiness Nocturnal hypoxia Preoperative examination Elevated glucose Screening for colon cancer Screening for diabetes mellitus Obesity (BMI 30-39.9) Confused but orients easily Depression, major, severe recurrence Abnormal serum protein electrophoresis Mild recurrent major depression Anxiety and depression Encounter for Medicare annual wellness exam Removal of nell Depression with anxiety Abdominal distention Weight gain Major depression, recurrent, full remission POONAM (generalized anxiety disorder) Hypothyroidism Hyperparathyroidism Multinodular thyroid Vitamin D deficiency Osteoporosis Surgical History Hx of colonoscopy Hx of kyphoplasty Hx of section Social History: Patient disabled has 1 son. Chronic anxiety has an intermittent difficult relationship with her mostly has not worked Trauma History: None noted Diagnostics Vital Signs (24Hr): Vital Signs - 24 hr 06/22/23 00:00 06/22/23 03:07 06/22/23 07:07 Temperature 97.6 F 98.2 F Pulse Rate 99 97 Respiratory Rate 18 16 16 Blood Pressure 130/74 121/78 Pulse Oximetry 97 97 Oxygen Delivery Method Room Air Room Air 06/22/23 11:58 06/22/23 15:06 06/22/23 19:23 Temperature 97.2 F 97.6 F 96.9 F Pulse Rate 83 90 90 Respiratory Rate 16 17 18 Blood Pressure 121/59 L 122/66 132/64 Pulse Oximetry 99 96 95 Oxygen Delivery Method Room Air Room Air Room Air Labs 06/23/23 08:04 06/23/23 08:04 Labs: Laboratory Results - last 48 hr 06/21/23 06/22/23 07:54 04:37 Sodium 141 Potassium 3.7 Chloride 110 H Carbon Dioxide 23 Anion Gap 12 BUN 10 Creatinine 0.86 Estim Creat Clear Calc TNP Estimated GFR > 60 Random Glucose 127 H Estimat Average Glucose 114 Hemoglobin A1c % 5.6 Calcium 8.8 Imaging Radiology Impressions: ITS Impressions Chest X-Ray 06/15/23 09:23 IMPRESSION: 1. No significant change when compared to 02/14/2023. 2. Minimal streaky opacities in the retrocardiac region, likely subsegmental atelectasis. 3. Unchanged diffuse interstitial prominence. Head CT 06/16/23 11:00 IMPRESSION: 1. No acute intracranial process seen. 2. Age-related cerebral volume loss. Mental Status Exam Mental Status Exam Patient Appearance: Unkempt Level of Consciousness: Awake and Restless Patient Behavior: Distractible and Confused Mood Description: Depressed, Fearful and Labile Affect Description: Anxious Patient Cognition Impaired: Yes Ability to Follow Directions: Fair Speech Pattern: Rambling Memory Description: Remote Impaired Thought Process: Disoriented and Goal Oriented Thought Content: positive for Obsessional Thoughts Depressive Symptoms: Increased Anxiety, Increased Irritability, Changes in Appetite, Loss of Int. in Activity, Hopelessness, Isolating-Friends/Family, Unhappiness, Increased Fatigue and Loss of Energy Judgement: Poor Judgement and Insight: Severe anxiety thought that God wants her or that she is mood depressed anxious labile she did recognize this travel writer knew she was in the hospital could not explain her behavior why she was not eating fearful easily agitated Medications Medications Current Medications Clonidine (Clonidine 0.2 Mg Patch.Tdwk) 0.2 mg TRANSDERMA We@0900 [facility]; Protocol Docusate Sodium (Docusate Sodium 100 Mg Capsule) 100 mg PO DAILY PRN PRN Reason: Constipation Heparin Sodium (Porcine) (Heparin Sodium,Porcine 5,000 Unit/Ml Vial) 5,000 unit SUBCUT Q8H [facility] Last Admin: 06/22/23 20:22 Dose: 5,000 unit Hydralazine HCl (Hydralazine Hcl 20 Mg/Ml Vial) 10 mg IVPUSH Q6H PRN; Protocol PRN Reason: Htn Last Admin: 06/17/23 16:29 Dose: 10 mg Lidocaine (Lidocaine 4 % Patch Adh..Patch) 1 patch TRANSDERMA DAILY [facility]; Protocol Last Admin: 06/22/23 08:40 Dose: 1 patch Lorazepam (Lorazepam 0.5 Mg Tablet) 0.5 mg PO BEDTIME PRN PRN Reason: Insomnia Last Admin: 06/20/23 19:23 Dose: 0.5 mg Lorazepam (Lorazepam 0.5 Mg Tablet) 0.5 mg PO DAILY PRN PRN Reason: anxiety/agitation Last Admin: 06/21/23 09:52 Dose: 0.5 mg Potassium Phos/Sodium Phos (Sodium,Potassium Phosphates Powd.Pack) 1 packet PO QID [facility] Last Admin: 06/22/23 20:22 Dose: 1 packet Quetiapine Fumarate (Quetiapine Fumarate 25 Mg Tablet) 25 mg PO BID [facility] Last Admin: 06/22/23 20:24 Dose: 25 mg Sodium Chloride (0.9 % Sodium Chloride Flush 3 Ml Syringe) 3 ml IVFLUSH QSHIFT [facility] Last Admin: 06/22/23 20:25 Dose: Not Given Tamsulosin HCl (Tamsulosin Hcl 0.4 Mg Capsule) 0.4 mg PO DAILY [facility] Last Admin: 06/22/23 08:42 Dose: 0.4 mg Allergies Allergies Allergy/AdvReac Type Severity Reaction Status Date / Time risperidone [From Risperdal] Allergy Intermediate UNKNOWN Verified 05/12/23 13:13 Sulfa (Sulfonamide Allergy Intermediate rash Verified 05/12/23 13:13 Antibiotics) From BENADRYL Allergy Intermediate DIZZY Uncoded 02/14/23 11:47 Assessment & Plan Assessment & Plan (1) Severe recurrent major depression w/psychotic features, mood-congruent: Status: Acute Code(s): F33.3 - Major depressive disorder, recurrent, severe with psychotic symptoms (2) LAYO (acute kidney injury): Status: Acute Code(s): N17.9 - Acute kidney failure, unspecified (3) Urinary retention: Status: Acute Code(s): R33.9 - Retention of urine, unspecified Plan PATIENT is fearful anxious labile and psychotic she has history of psychotic depression unclear any contribution from discontinuation Trintellix and doxepin which she had been stable on for a couple of years. Caplyta discontinued Will check CBC and electrolytes patient on hospitalist service presently for stability had needed IV fluids continue civil commitment treatment plan and eventual transfer back to psychiatric unit coordinate with hospitalist service head CT scan no acute changes chart reviewed patient seen Total time managing care of this patient today _60___ minutes.
[2023-06-23] MEDS: Heparin Sodium,Porcine 5,000 UNIT/ML VIAL 5000 UNIT SUBCUT ×3 (03:00→19:30)
[2023-06-23 03:09] VITALS: BP 134/89; PULSE 99; RESP 17; TEMP 36.2; O2SAT 96
[2023-06-23 07:14] VITALS: BP 119/64; PULSE 89; RESP 16; TEMP 36; O2SAT 96
[2023-06-23] MEDS: Sodium,Potassium Phosphates POWD.PACK 1 PACKET PO ×3 (08:15→19:30)
[2023-06-23] MEDS: QUEtiapine Fumarate 25 MG TABLET PO ×2 (08:15→19:29)
[2023-06-23] MEDS: Tamsulosin HCL 0.4 MG CAPSULE PO (08:15)
[2023-06-23] MEDS: Lidocaine 4 % Patch ADH..PATCH 1 PATCH TRANSDERMA (08:19)
[2023-06-23 08:20] LABS: MANUAL DIFF FLAG NO
[2023-06-23 08:41] LABS: Basophils Percent Auto 0.4 % (0-2); Eosinophils Absolute Auto 0.1 X10*3/uL (0.0-0.4); Eosinophils Percent Auto 0.8 % (0-4); Hematocrit 44.4 % (37.0-47.0); Hemoglobin 14.6 g/dl (12.0-16.0); Imm Gran Abs Auto 0.16 X10*3/uL (0.00-0.03); Imm Gran Pct Auto 1.4 % (0.0-0.4); Lymphocytes Absolute Auto 1.3 X10*3/uL (1.2-4.9); Lymphocytes Percent Auto 11.7 % (20-40); Mean Corpuscular HGB Conc 32.9 g/dl (31.0-35.0); Mean Corpuscular Hemoglobin 30.2 pg (27.0-33.0); Mean Corpuscular Volume 91.7 fL (80.0-98.0); Mean Platelet Volume 11.6 fL (9.4-12.3); Monocytes Absolute Auto 0.6 X10*3/uL (0.1-1.2); Monocytes Percent Auto 5.3 % (2-11); Neutrophils Percent Auto 80.4 % (45-73); Platelet Count 225 X10*3/uL (160-400); Red Blood Count 4.84 X10*6/uL (4.20-5.50); Red Cell Distribution Width 15.4 % (11.0-16.0); White Blood Count 11.1 X10*3/uL (4.8-10.8)
[2023-06-23 08:50] LABS: Alanine Aminotransferase 46 U/L (0-31); Albumin Level 3.2 g/dL (3.5-5.0); Alkaline Phosphatase 66 U/L (39-117); Anion Gap 14 (12-20); Aspartate Amino Transferase 23 U/L (5-31); Bilirubin Total 0.6 mg/dL (0.0-1.0); Blood Urea Nitrogen 8 mg/dL (9-16); Calcium 9.2 mg/dL (8.4-10.2); Carbon Dioxide 24 mmol/L (22-29); Chloride 104 mmol/L (96-108); Estimated Glomerular Filt Rate > 60; Glucose Fasting 99 mg/dL (60-99); Potassium 4.1 mmol/L (3.3-5.1); Sodium 138 mmol/L (135-145); Total Protein 6.7 g/dL (6.5-8.0)
[2023-06-23 08:59] LABS: Anion Gap 13 (12-20); Blood Urea Nitrogen 8 mg/dL (9-16); Calcium 9.2 mg/dL (8.4-10.2); Carbon Dioxide 24 mmol/L (22-29); Chloride 104 mmol/L (96-108); Estimated Glomerular Filt Rate > 60; Glucose Random 96 mg/dL (60-115); Magnesium 2.2 mg/dL (1.6-2.6); Potassium 4.1 mmol/L (3.3-5.1); Sodium 137 mmol/L (135-145)
--- NOTE | 2023-06-23 09:24 | HO.PM.IMPN ---
Subjective Subjective Date of Service: 06/23/23 Interval History: f/u on metabolic encephalopathy, LAYO, dedhydration while on Psych floor Encephalopathy, dehydration, LAYO resolved, still with unstable mood Physical Exam Vital Signs: Vital Signs: Last Vital Signs Temp 96.8 F 06/23/23 07:14 Pulse 89 06/23/23 07:14 Resp 16 06/23/23 07:14 BP 119/64 06/23/23 07:14 Pulse Ox 96 06/23/23 07:14 O2 Del Method Room Air 06/23/23 07:14 Const: Other: General: AO X 2, no acute distress Resp: CTA bilateral CVS: S1,S2,RRR GI: +BS, NT, no distention Skin: No rash Neuro: motor grossly intact Psych: appropriate affect Objective Data Active Medications Clonidine (Clonidine 0.2 Mg Patch.Tdwk) 0.2 mg TRANSDERMA We@0900 [facility]; Protocol Docusate Sodium (Docusate Sodium 100 Mg Capsule) 100 mg PO DAILY PRN PRN Reason: Constipation Heparin Sodium (Porcine) (Heparin Sodium,Porcine 5,000 Unit/Ml Vial) 5,000 unit SUBCUT Q8H [facility] Last Admin: 06/23/23 03:00 Dose: 5,000 unit Documented By: SO Hydralazine HCl (Hydralazine Hcl 20 Mg/Ml Vial) 10 mg IVPUSH Q6H PRN; Protocol PRN Reason: Htn Last Admin: 06/17/23 16:29 Dose: 10 mg Documented By: JAMEE Lidocaine (Lidocaine 4 % Patch Adh..Patch) 1 patch TRANSDERMA DAILY [facility]; Protocol Last Admin: 06/23/23 08:19 Dose: 1 patch Documented By: BON Lorazepam (Lorazepam 0.5 Mg Tablet) 0.5 mg PO BEDTIME PRN PRN Reason: Insomnia Last Admin: 06/20/23 19:23 Dose: 0.5 mg Documented By: FAUSTINO Lorazepam (Lorazepam 0.5 Mg Tablet) 0.5 mg PO DAILY PRN PRN Reason: anxiety/agitation Last Admin: 06/21/23 09:52 Dose: 0.5 mg Documented By: DWIGHT Potassium Phos/Sodium Phos (Sodium,Potassium Phosphates Powd.Pack) 1 packet PO QID [facility] Last Admin: 06/23/23 08:15 Dose: 1 packet Documented By: BON Quetiapine Fumarate (Quetiapine Fumarate 25 Mg Tablet) 25 mg PO BID [facility] Last Admin: 06/23/23 08:15 Dose: 25 mg Documented By: BON Sodium Chloride (0.9 % Sodium Chloride Flush 3 Ml Syringe) 3 ml IVFLUSH QSHIFT [facility] Last Admin: 06/23/23 08:19 Dose: Not Given Documented By: BON Non-Admin Reason: No Access Tamsulosin HCl (Tamsulosin Hcl 0.4 Mg Capsule) 0.4 mg PO DAILY [facility] Last Admin: 06/23/23 08:15 Dose: 0.4 mg Documented By: BON Labs 06/23/23 08:04 06/23/23 08:04 Labs: Laboratory Results - last 24 hr 06/23/23 06/23/23 06/23/23 08:04 08:04 08:04 MCV 91.7 MCH 30.2 MCHC 32.9 RDW 15.4 Plt Count 225 MPV 11.6 Immature Gran % (Auto) 1.4 H Neut % (Auto) 80.4 H Lymph % (Auto) 11.7 L Harrison % (Auto) 5.3 Eos % (Auto) 0.8 Baso % (Auto) 0.4 Lymph # (Auto) 1.3 Harrison # (Auto) 0.6 Eos # (Auto) 0.1 Baso # (Auto) 0.0 Abs Immat Gran (auto) 0.16 H Absolute Neuts (auto) 9.0 H Absolute Nucleated RBC 0.000 Nucleated RBC % (auto) 0.0 Anion Gap 14 13 Estim Creat Clear Calc TNP TNP Estimated GFR > 60 Random Glucose Fasting Glucose Calcium Magnesium Total Bilirubin AST ALT Alkaline Phosphatase Total Protein Albumin 06/23/23 06/23/23 08:04 08:04 MCV MCH MCHC RDW Plt Count MPV Immature Gran % (Auto) Neut % (Auto) Lymph % (Auto) Harrison % (Auto) Eos % (Auto) Baso % (Auto) Lymph # (Auto) Harrison # (Auto) Eos # (Auto) Baso # (Auto) Abs Immat Gran (auto) Absolute Neuts (auto) Absolute Nucleated RBC Nucleated RBC % (auto) Anion Gap Estim Creat Clear Calc Estimated GFR > 60 Random Glucose 96 Fasting Glucose 99 Calcium 9.2 9.2 Magnesium 2.2 Total Bilirubin 0.6 AST 23 ALT 46 H Alkaline Phosphatase 66 Total Protein 6.7 Albumin 3.2 L Assessment and Plan (1) Urinary retention: Status: Acute (2) Severe recurrent major depression w/psychotic features, mood-congruent: Status: Acute Plan 72-year-old female with a PMH significant for?unspecified mild dementia/cognitive impairment, MDD, and POONAM who was admitted to [facility] psych unit?for increasing depression and agitation. On the unit patient was steadily declining, refusing meds, ECT, agitated and hopeless, and moving away from reality. Was transfered to med floor for management of Layo, electrolytes abnormalities, dehydration, and SIRS causing metabolic encephalopathy LAYO d/t dehydration, resolved with IVF Hypokalemia/hypophos: resolved with replacement Metabolic encephalopathy: multifactorial (dehydration, renal failure, med interaction on top of underlying cognitive impairment). CT ok, NH3 nl. Back to her baseline SIRS criteria (elevated WBC, tachycardia) d/t dehydration, resolved Acute lactic acidosis--d/t dehyration, LAYO NOT sepsis, resolved with IVF HypErnatremia--due to dehydration and resolved with IVF. Tachycardia d/t dehydration--resolved Transaminitis--mild and nearly resolved, AST 23 normal , ALT 46, monitor routines Mood disorder/Depression--Seroquel, clonidine, Psych following and to decide on further treatement HTN: nl BP, no indication for meds at this time urinary retention: seen by uro, Continue Flomax, Almaraz dc, SC with PVR > 350 Full Code DVT Prophylaxis: Heparin need for hospitalization: needs placement, medically ready for discharge Quality Stroke Does the patient have a stroke diagnosis?: No VTE Prior VTE?: No VTE Risk Level:: Medical - moderate - high VTE Device Contraindication: Treatment Not Indicated VTE Drug Contraindication: N/A - Med Ordered
[2023-06-23 12:00] VITALS: BP 112/57; PULSE 100; RESP 16; TEMP 36.6; O2SAT 94
--- NOTE | 2023-06-23 14:55 | MHC.CM.PN ---
Pt is awaiting available [facility] bed, CARE team has initiated search, no available beds yet.
[2023-06-23 15:35] VITALS: BP 134/65; PULSE 100; RESP 18; TEMP 36.1; O2SAT 96
[2023-06-23] MEDS: LORazepam 0.5 MG TABLET PO ×2 (17:58→19:29)
[2023-06-23 19:39] VITALS: BP 115/66; PULSE 105; RESP 20; TEMP 36.1; O2SAT 94
[2023-06-23] MEDS: Acetaminophen 325 MG TABLET 650 MG PO (20:59)
[2023-06-23] MEDS: Melatonin 3 MG TABLET 6 MG PO (20:59)
--- NOTE | 2023-06-23 21:46 | P.CNPS_ITS ---
History of Present Illness Date of Service: 06/23/2023 Chief Complaint: LAYO, AMS severe depression with psychosis Requesting physician: Cabrera Silver Discussed with referring provider: Yes Sources of Information: patient interviewed and chart reviewed HPI Narrative: Patient had court court hearing civil commitment and treatment plan have been accepted by the court case reviewed with Dr. Silver. Feels most symptoms were related to patient not eating drinking or taking medication. Somewhat better food intake now on ensure improved ambulation was able to urinate without straight cath mood anxious and dysphoric Past Psychiatric History: Patient with long history of recurrent depression with multiple prior psychiatric hospitalizations. 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 no classic bipolar symptoms past depressive psychotic episodes not for a number of years [facility] Medical History Dementia Severe recurrent major depression w/psychotic features, mood-congruent Has daytime drowsiness Nocturnal hypoxia Preoperative examination Elevated glucose Screening for colon cancer Screening for diabetes mellitus Obesity (BMI 30-39.9) Confused but orients easily Depression, major, severe recurrence Abnormal serum protein electrophoresis Mild recurrent major depression Anxiety and depression Encounter for Medicare annual wellness exam Removal of nell Depression with anxiety Abdominal distention Weight gain Major depression, recurrent, full remission POONAM (generalized anxiety disorder) Hypothyroidism Hyperparathyroidism Multinodular thyroid Vitamin D deficiency Osteoporosis Surgical History Hx of colonoscopy Hx of kyphoplasty Hx of section Social History: Patient disabled has 1 son. Chronic anxiety has an intermittent difficult relationship with her mostly has not worked Trauma History: None noted Diagnostics Vital Signs (24Hr): Vital Signs - 24 hr 06/22/23 23:42 06/23/23 03:09 06/23/23 07:14 Temperature 97 F 97.1 F 96.8 F Pulse Rate 97 99 89 Respiratory Rate 18 17 16 Blood Pressure 131/75 134/89 119/64 Pulse Oximetry 95 96 96 Oxygen Delivery Method Room Air Room Air Room Air 06/23/23 12:00 06/23/23 15:35 06/23/23 19:39 Temperature 97.8 F 97.0 F 97.0 F Pulse Rate 100 100 105 H Respiratory Rate 16 18 20 Blood Pressure 112/57 L 134/65 115/66 Pulse Oximetry 94 96 94 Oxygen Delivery Method Room Air Room Air Room Air Labs 06/23/23 08:04 06/23/23 08:04 Labs: Laboratory Results - last 48 hr 06/22/23 06/23/23 06/23/23 04:37 08:04 08:04 WBC 11.1 H RBC 4.84 Hgb 14.6 Hct 44.4 MCV 91.7 MCH 30.2 MCHC 32.9 RDW 15.4 Plt Count 225 MPV 11.6 Immature Gran % (Auto) 1.4 H Neut % (Auto) 80.4 H Lymph % (Auto) 11.7 L Gray % (Auto) 5.3 Eos % (Auto) 0.8 Baso % (Auto) 0.4 Lymph # (Auto) 1.3 Gray # (Auto) 0.6 Eos # (Auto) 0.1 Baso # (Auto) 0.0 Abs Immat Gran (auto) 0.16 H Absolute Neuts (auto) 9.0 H Absolute Nucleated RBC 0.000 Nucleated RBC % (auto) 0.0 Sodium 138 137 Potassium 4.1 Chloride Carbon Dioxide Anion Gap BUN Creatinine Estim Creat Clear Calc Estimated GFR Random Glucose Fasting Glucose Estimat Average Glucose 114 Hemoglobin A1c % 5.6 Calcium Magnesium Total Bilirubin AST ALT Alkaline Phosphatase Total Protein Albumin 06/23/23 06/23/23 06/23/23 08:04 08:04 08:04 WBC RBC Hgb Hct MCV MCH MCHC RDW Plt Count MPV Immature Gran % (Auto) Neut % (Auto) Lymph % (Auto) Gray % (Auto) Eos % (Auto) Baso % (Auto) Lymph # (Auto) Gray # (Auto) Eos # (Auto) Baso # (Auto) Abs Immat Gran (auto) Absolute Neuts (auto) Absolute Nucleated RBC Nucleated RBC % (auto) Sodium Potassium 4.1 Chloride 104 104 Carbon Dioxide 24 24 Anion Gap 14 BUN Creatinine Estim Creat Clear Calc Estimated GFR Random Glucose Fasting Glucose Estimat Average Glucose Hemoglobin A1c % Calcium Magnesium Total Bilirubin AST ALT Alkaline Phosphatase Total Protein Albumin 06/23/23 06/23/23 06/23/23 08:04 08:04 08:04 WBC RBC Hgb Hct MCV MCH MCHC RDW Plt Count MPV Immature Gran % (Auto) Neut % (Auto) Lymph % (Auto) Gray % (Auto) Eos % (Auto) Baso % (Auto) Lymph # (Auto) Gray # (Auto) Eos # (Auto) Baso # (Auto) Abs Immat Gran (auto) Absolute Neuts (auto) Absolute Nucleated RBC Nucleated RBC % (auto) Sodium Potassium Chloride Carbon Dioxide Anion Gap 13 BUN 8 L 8 L Creatinine 0.82 0.86 Estim Creat Clear Calc TNP Estimated GFR Random Glucose Fasting Glucose Estimat Average Glucose Hemoglobin A1c % Calcium Magnesium Total Bilirubin AST ALT Alkaline Phosphatase Total Protein Albumin 06/23/23 06/23/23 06/23/23 08:04 08:04 08:04 WBC RBC Hgb Hct MCV MCH MCHC RDW Plt Count MPV Immature Gran % (Auto) Neut % (Auto) Lymph % (Auto) Gray % (Auto) Eos % (Auto) Baso % (Auto) Lymph # (Auto) Gray # (Auto) Eos # (Auto) Baso # (Auto) Abs Immat Gran (auto) Absolute Neuts (auto) Absolute Nucleated RBC Nucleated RBC % (auto) Sodium Potassium Chloride Carbon Dioxide Anion Gap BUN Creatinine Estim Creat Clear Calc TNP Estimated GFR > 60 > 60 Random Glucose 96 Fasting Glucose 99 Estimat Average Glucose Hemoglobin A1c % Calcium 9.2 9.2 Magnesium 2.2 Total Bilirubin 0.6 AST 23 ALT 46 H Alkaline Phosphatase 66 Total Protein 6.7 Albumin 3.2 L Imaging Radiology Impressions: ITS Impressions Chest X-Ray 06/15/23 09:23 IMPRESSION: 1. No significant change when compared to 02/14/2023. 2. Minimal streaky opacities in the retrocardiac region, likely subsegmental atelectasis. 3. Unchanged diffuse interstitial prominence. Head CT 06/16/23 11:00 IMPRESSION: 1. No acute intracranial process seen. 2. Age-related cerebral volume loss. Mental Status Exam Mental Status Exam Patient Appearance: Unkempt Level of Consciousness: Awake Patient Behavior: Distractible and Confused Mood Description: Depressed, Fearful, Labile and Apprehensive Affect Description: Anxious Patient Cognition Impaired: Yes Ability to Follow Directions: Fair Speech Pattern: Rambling Memory Description: Remote Impaired Thought Process: Disoriented and Distracted Thought Content: positive for Obsessional Thoughts Depressive Symptoms: Increased Anxiety, Increased Irritability, Changes in Appetite, Loss of Int. in Activity, Hopelessness, Isolating-Friends/Family, Unhappiness, Increased Fatigue and Loss of Energy Abnormal Motor Activity Signs and Symptoms: Tremors Judgement: Poor Judgement and Insight: Irrational thinking continues she does know where she is who this rfp writer is that she has depressed not thinking clearly irrational related to God wanting her or she is some ability to reality test Medications Medications Current Medications Acetaminophen (Acetaminophen 325 Mg Tablet) 650 mg PO Q6H PRN PRN Reason: Pain, Mild (Pain Scale 1-3) Last Admin: 06/23/23 20:59 Dose: 650 mg Clonidine (Clonidine 0.2 Mg Patch.Tdwk) 0.2 mg TRANSDERMA We@0900 [facility]; Protocol Docusate Sodium (Docusate Sodium 100 Mg Capsule) 100 mg PO DAILY PRN PRN Reason: Constipation Heparin Sodium (Porcine) (Heparin Sodium,Porcine 5,000 Unit/Ml Vial) 5,000 unit SUBCUT Q8H [facility] Last Admin: 06/23/23 19:30 Dose: 5,000 unit Hydralazine HCl (Hydralazine Hcl 20 Mg/Ml Vial) 10 mg IVPUSH Q6H PRN; Protocol PRN Reason: Htn Last Admin: 06/17/23 16:29 Dose: 10 mg Lidocaine (Lidocaine 4 % Patch Adh..Patch) 1 patch TRANSDERMA DAILY [facility]; Protocol Last Admin: 06/23/23 08:19 Dose: 1 patch Lorazepam (Lorazepam 0.5 Mg Tablet) 0.5 mg PO BEDTIME PRN PRN Reason: Insomnia Last Admin: 06/23/23 17:58 Dose: 0.5 mg Lorazepam (Lorazepam 0.5 Mg Tablet) 0.5 mg PO DAILY PRN PRN Reason: anxiety/agitation Last Admin: 06/23/23 19:29 Dose: 0.5 mg Melatonin (Melatonin 3 Mg Tablet) 6 mg PO BEDTIME PRN PRN Reason: Insomnia Last Admin: 06/23/23 20:59 Dose: 6 mg Potassium Phos/Sodium Phos (Sodium,Potassium Phosphates Powd.Pack) 1 packet PO QID [facility] Last Admin: 06/23/23 19:30 Dose: 1 packet Quetiapine Fumarate (Quetiapine Fumarate 25 Mg Tablet) 25 mg PO BID [facility] Last Admin: 06/23/23 19:29 Dose: 25 mg Sodium Chloride (0.9 % Sodium Chloride Flush 3 Ml Syringe) 3 ml IVFLUSH QSHIFT [facility] Last Admin: 06/23/23 19:34 Dose: Not Given Tamsulosin HCl (Tamsulosin Hcl 0.4 Mg Capsule) 0.4 mg PO DAILY [facility] Last Admin: 06/23/23 08:15 Dose: 0.4 mg Allergies Allergies Allergy/AdvReac Type Severity Reaction Status Date / Time risperidone [From Risperdal] Allergy Intermediate UNKNOWN Verified 05/12/23 13:13 Sulfa (Sulfonamide Allergy Intermediate rash Verified 05/12/23 13:13 Antibiotics) From BENADRYL Allergy Intermediate DIZZY Uncoded 02/14/23 11:47 Assessment & Plan Assessment & Plan (1) Severe recurrent major depression w/psychotic features, mood-congruent: Status: Acute Code(s): F33.3 - Major depressive disorder, recurrent, severe with psychotic symptoms (2) Altered mental status: Status: Acute Code(s): R41.82 - Altered mental status, unspecified Plan CBC chemistries from today have normalized consider transfer to [facility] psych unit will need help ADLs ambulation to some degree did not need straight cath today discussed Dr. Silver regarding potential transfer and continuation ECT Total time managing care of this patient today _30___ minutes. Patient educated on: diagnosis and medication risk/benefits Informed Consent: does not understand
--- NOTE | 2023-06-24 | ECG_ITS ---
Test Reason : elevated trop Blood Pressure : / mmHG Vent. Rate : 106 BPM Atrial Rate : 106 BPM P-R Int : 134 ms QRS Dur : 070 ms QT Int : 314 ms P-R-T Axes : 058 -04 041 degrees QTc Int : 417 ms Sinus tachycardia Inferior infarct (cited on or before 15-JUN-2023) Abnormal ECG When compared with ECG of 15-JUN-2023 20:54, No significant changes seen Referred By: Cabrera Silver Electronically Signed By:ELISE WEI
[2023-06-24] MEDS: Heparin Sodium,Porcine 5,000 UNIT/ML VIAL 5000 UNIT SUBCUT ×2 (03:59→12:29)
[2023-06-24 04:00] VITALS: BP 106/65; PULSE 94; RESP 16; TEMP 36.1; O2SAT 98
--- NOTE | 2023-06-24 07:00 | CA_ITS ---
Transthoracic Echocardiogram Patient (Last, First, Middle): Judy Rodrigues, Gender: Female Date of : 1950 Age: 72 Procedure Date: 06/24/2023 Procedure Type: Transthoracic Echocardiogram Location: S3E Height: 147.32 cm Weight: 68.95 kg BSA: 1.62 m2 Heart Rate: bpm BP: 124 / 68 mmHg Senior Nuclear Medicine Technologist: Referring MD: Cabrera Silver MD Symptoms: elevated trop Study Quality: Technically Difficult ECG Rhythm: Sinus Conclusions: - Incomplete and suboptimal study. Tech asked to leave by patient. - The left ventricular systolic function is normal. The calculated ejection fraction is 55% by biplane method. Findings Left Ventricle Normal left ventricular cavity size. The left ventricular systolic function is normal. The calculated ejection fraction is 55% by biplane method. There is no evidence of regional wall motion abnormalities. Prior Study Comparison No significant change compared to prior study dated: 08/18/2018. Measurements 2D Systolic Function EF 4C: 50.90 >55% EF 2C: 59.20 >55% EF BiP: 54.70 >55% Updated in Other Vendor System with Status of Final Eh Miranda MD electronically signed on 06/24/2023 11:38:38 AM with status of Final
[2023-06-24 07:58] VITALS: BP 124/68; PULSE 87; RESP 16; TEMP 36.4; O2SAT 95
[2023-06-24] MEDS: QUEtiapine Fumarate 25 MG TABLET PO (09:21)
[2023-06-24] MEDS: Sodium,Potassium Phosphates POWD.PACK 1 PACKET PO ×3 (09:21→16:53)
[2023-06-24] MEDS: Tamsulosin HCL 0.4 MG CAPSULE PO (09:21)
[2023-06-24] MEDS: Lidocaine 4 % Patch ADH..PATCH 1 PATCH TRANSDERMA (09:21)
[2023-06-24 09:22] VITALS: BMI 29.7
--- NOTE | 2023-06-24 09:25 | MHC.CLN ---
NUTRITION PATIENT WITH USUALLY POOR PO. ENSURE BID ORDERED. SUPPLEMENT PROVIDES [address], [address] TO MONITOR WEEKLY.
--- NOTE | 2023-06-24 10:42 | MHC.CM.PN ---
Addendum entered by Frida Anders RN 06/24/23 14:10: Notified patient's of transfer per patient request. Addendum entered by Frida Anders RN 06/24/23 11:06: Per CARE team patient has a bed on S1 at [facility] today. IMM delivered. Original Note: EMR reviewed. Per MD rounds dc pending available [facility] bed. Message sent to CARE team for update. CM will continue to follow.
[2023-06-24] MEDS: LORazepam 0.5 MG TABLET PO (12:30)
--- NOTE | 2023-06-24 12:47 | PM.DS ---
DS: Providers Provider Date of Service: 06/24/23 Date of admission: 06/14/23 18:14 Primary care physician: Brittany Medina MD Consults: 06/15/23 07:41 Consult to Psychiatry Routine Consulting Provider: Psych Covering Reason for consultation: mental illness 06/16/23 08:49 Consult to Neurology Routine Consulting Provider: [facility] Reason for consultation: encpehalopathy unclear etiology 06/18/23 08:00 Consult to Urology Routine Consulting Provider: [facility] Urology Services Reason for consultation: urinary retention Has provider been notified: No 06/24/23 08:47 Consult to Cardiology Routine Consulting Provider: [facility] Cardiovascular Services Reason for consultation: elevated troponin Has provider been notified: Yes DS: Diagnosis Discharge Diagnosis (1) Severe recurrent major depression w/psychotic features, mood-congruent: Status: Acute (2) Altered mental status: Status: Resolved DS: Summary Hospital Course Hospital Course: Admission Hpi Chief Complaint: AMS, LAYO, abnormal labs Pt is a 72-year-old female with a PMH significant for?unspecified mild dementia/cognitive impairment, MDD, and POONAM who was admitted to M5 psych unit?for increasing depression and agitation. On the unit patient has been steadily declining for the past week. Has been refusing medications, ECT treatment, and becoming more agitated and hopeless, and moving away from reality. Patient has been noted to be incontinent of urine in the bathroom, repeatedly stating that ?I am dying? or ?I am ?, an inappropriately urinated and disrobed in the milieu. For the past few days patient has been refusing food and fluid. Was noted to be agitated and tachycardic. Hospitalist consult was made and labs and imaging were ordered this morning, but patient refused all treatment or diagnostics. Labs were finally obtained this evening which were significant for leukocytosis of 20.7, elevated D-dimer, sodium of 150, BUN 59, creatinine 1.66, lactic acid 4.3, magnesium 3.6, bilirubin 1.3, AST 54, ALT 66, and troponin 70.0. Pt seen and examined beside where she appears agitated and altered, alert and oriented to self and place only, not to time or situation. Pt was occasionally moaning and kicking out her legs, unable to provide accurate HPI. She complained about her bones but could not further clarify her complaint. Pt will be brought to the medical floor for treatment and further evaluation of altered mental status, LAYO, and other abnormal labs. Hospital course: 72-year-old female with a PMH significant for?unspecified mild dementia/cognitive impairment, MDD, and POONAM who was admitted to M5 psych unit?for increasing depression and agitation. On the unit patient was steadily declining, refusing meds, ECT, agitated and hopeless, and moving away from reality. Was transfered to med floor for management of Layo, electrolytes abnormalities, dehydration, and SIRS causing metabolic encephalopathy LAYO d/t dehydration, resolved with IVF Hypokalemia/hypophos: resolved with replacement Metabolic encephalopathy: multifactorial (dehydration, renal failure, med interaction on top of underlying cognitive impairment). CT ok, NH3 nl. Back to her baseline SIRS criteria (elevated WBC, tachycardia) d/t dehydration, resolved Acute lactic acidosis--d/t dehyration, LAYO NOT sepsis, resolved with IVF HypErnatremia--due to dehydration and resolved with IVF. Tachycardia d/t dehydration--resolved Transaminitis--mild and nearly resolved, AST 23 normal , ALT 46, monitor routines Mild Elevated troponin with no chest pain and ECG changes, likely from renal failure, tachycardia at that time.. Repeat troponin I went downe, no ischemic changes on ECG Echocardiogram today show normal EF,no regional wall motion abnormalities, not a full study as she asked tech to leave.. At this time further cardiac testing indicated before ECT. Child Development Professor attempted to assess patient but she would not participate but based on the available information and the need for ECT to improve patient's condition, no further testing at this point Mood disorder/Depression--Seroquel, clonidine, Psych following and to decide on further treatement HTN: nl BP, no indication for meds at this time urinary retention: seen by uro, Rufina Saba dc, BERNARDO with PVR > 350 Time Attestation Discharge coordination time: Greater than 30 minutes Quality: Safe Use of Opioids Does Pt have an Active Cancer Diagnosis on the Problem List?: No Quality: Stroke Does the patient have a stroke diagnosis?: No Physical Exam Vital Signs: Vital Signs: Last Vital Signs Temp 97.5 F 06/24/23 07:58 Pulse 87 06/24/23 07:58 Resp 16 06/24/23 07:58 BP 124/68 06/24/23 07:58 Pulse Ox 95 06/24/23 07:58 O2 Del Method Room Air 06/24/23 07:58 BMI result Body Mass Index 29.7 DS: Data Data Completed and Pending Completed studies during hospitalization [Text1]: Procedures Other Electroconvulsive Therapy (05/25/23) Discharge Plan Discharge Anticipated Discharge Date/Time: 06/24/23 13:43 Patient Disposition: Xfer Psychiatric Hosp Discharge Diagnosis: Major Depression Referrals: Brittany Tinajero MD [Primary Care Provider] - 1 Week Discharge Medications: New lorazepam 0.5 mg Tablet 0.5 mg PO DAILY PRN (Reason: anxiety/agitation) Qty: 14 0RF clonidine 0.2 mg/24 hr Patch Weekly 0.2 mg transdermal We@0900 Qty: 15 0RF Protocol: Hold for SBP< HOLD for SBP < : 90 acetaminophen 325 mg Tablet 650 mg PO Q6H PRN (Reason: Pain, Mild (Pain Scale 1-3)) Qty: 30 0RF melatonin 3 mg Tablet 6 mg PO BEDTIME PRN (Reason: Insomnia) Qty: 30 0RF docusate sodium 100 mg Capsule 100 mg PO DAILY PRN (Reason: Constipation) Qty: 15 0RF tamsulosin 0.4 mg Capsule 0.4 mg PO DAILY Qty: 30 0RF quetiapine 25 mg Tablet 25 mg PO BID Qty: 30 0RF lidocaine [Lidocaine Pain Relief] 4 % Adhesive Patch,Medicated 1 patch transdermal DAILY Qty: 15 0RF Protocol: Apply to: Apply to: affected pain area Continued donepezil 5 mg Tablet 5 mg PO BEDTIME Qty: 0 0RF magnesium hydroxide [Milk of Magnesia] 400 mg/5 mL Suspension 30 ml PO DAILY PRN (Reason: Constipation) Qty: 0 0RF nystatin 100,000 unit/gram Cream 1 appl topical BID Qty: 0 0RF Protocol: Apply to: Apply to: affected areas behind her knees MAG-AL 200-200 mg/5 mL Suspension 30 ml PO Q6H PRN (Reason: Heartburn/Nausea) Qty: 0 0RF memantine 5 mg tablet 10 mg PO BID Discontinued Trintellix 20 mg tablet 20 mg PO DAILY Qty: 90 1RF folic acid 1 mg tablet 1 mg PO DAILY Qty: 90 1RF quetiapine 25 mg Tablet 25 mg PO BEDTIME Qty: 0 0RF quetiapine 25 mg Tablet 25 mg PO Q6H PRN (Reason: Anxiety/Restlessness) Qty: 0 0RF acetaminophen 325 mg Tablet 650 mg PO Q6H PRN (Reason: Headache/Pain Mild Scale (1-3)) Qty: 0 0RF propranolol 10 mg Tablet 10 mg PO BID Qty: 0 0RF Protocol: Hold for SBP/HR < HOLD for SBP < : 90 HOLD for HR < : 60 lorazepam 0.5 mg Tablet 0.5 mg PO Q4H PRN (Reason: Anxiety) Qty: 0 0RF thiamine mononitrate (vit B1) 100 mg Tablet 100 mg PO BID Qty: 0 0RF doxepin 25 mg capsule 50 mg PO BEDTIME lumateperone 21 mg capsule 21 mg PO DAILY@1700 Discharge Orders: Discharge Order (Routine); Ordered 06/24/23 Ordered By: Cabrera Silver Diet: Advance to usual diet Activity on Discharge: As tolerated Stand Alone Forms: Patient Portal Discharge page Discharge Date/Time: 06/24/23 17:48
[2023-06-24 16:00] VITALS: BP 107/60; PULSE 112; RESP 18; TEMP 36.9; O2SAT 94
--- NOTE | 2023-06-24 16:23 | HO.PM.IMPN ---
Subjective Subjective Date of Service: 06/24/23 Interval History: Uncooperative, not as communicative as yesterday Physical Exam Vital Signs: Vital Signs: Last Vital Signs Temp 97.5 F 06/24/23 07:58 Pulse 87 06/24/23 07:58 Resp 16 06/24/23 07:58 BP 124/68 06/24/23 07:58 Pulse Ox 95 06/24/23 07:58 O2 Del Method Room Air 06/24/23 07:58 BMI result Body Mass Index 29.7 Const: Other: General: AO X , no acute distress Resp: CTA bilateral CVS: S1,S2,RRR GI: +BS, NT, no distention Skin: No rash Neuro: motor grossly intact Psych: appropriate affect Objective Data Active Medications Acetaminophen (Acetaminophen 325 Mg Tablet) 650 mg PO Q6H PRN PRN Reason: Pain, Mild (Pain Scale 1-3) Last Admin: 06/23/23 20:59 Dose: 650 mg Documented By: SO Clonidine (Clonidine 0.2 Mg Patch.Tdwk) 0.2 mg TRANSDERMA We@0900 [facility]; Protocol Last Admin: 06/24/23 09:25 Dose: Not Given Documented By: COLE Non-Admin Reason: Med Not Available Docusate Sodium (Docusate Sodium 100 Mg Capsule) 100 mg PO DAILY PRN PRN Reason: Constipation Heparin Sodium (Porcine) (Heparin Sodium,Porcine 5,000 Unit/Ml Vial) 5,000 unit SUBCUT Q8H [facility] Last Admin: 06/24/23 12:29 Dose: 5,000 unit Documented By: COLE Hydralazine HCl (Hydralazine Hcl 20 Mg/Ml Vial) 10 mg IVPUSH Q6H PRN; Protocol PRN Reason: Htn Last Admin: 06/17/23 16:29 Dose: 10 mg Documented By: JAMEE Lidocaine (Lidocaine 4 % Patch Adh..Patch) 1 patch TRANSDERMA DAILY [facility]; Protocol Last Admin: 06/24/23 09:21 Dose: 1 patch Documented By: COLE Lorazepam (Lorazepam 0.5 Mg Tablet) 0.5 mg PO DAILY PRN PRN Reason: anxiety/agitation Last Admin: 06/24/23 12:30 Dose: 0.5 mg Documented By: COLE Melatonin (Melatonin 3 Mg Tablet) 6 mg PO BEDTIME PRN PRN Reason: Insomnia Last Admin: 06/23/23 20:59 Dose: 6 mg Documented By: SO Potassium Phos/Sodium Phos (Sodium,Potassium Phosphates Powd.Pack) 1 packet PO QID [facility] Last Admin: 06/24/23 12:29 Dose: 1 packet Documented By: COLE Quetiapine Fumarate (Quetiapine Fumarate 25 Mg Tablet) 25 mg PO BID [facility] Last Admin: 06/24/23 09:21 Dose: 25 mg Documented By: COLE Sodium Chloride (0.9 % Sodium Chloride Flush 3 Ml Syringe) 3 ml IVFLUSH QSHIFT [facility] Last Admin: 06/24/23 16:17 Dose: Not Given Documented By: COLE Non-Admin Reason: No Access Tamsulosin HCl (Tamsulosin Hcl 0.4 Mg Capsule) 0.4 mg PO DAILY [facility] Last Admin: 06/24/23 09:21 Dose: 0.4 mg Documented By: COLE Labs 06/23/23 08:04 06/23/23 08:04 Assessment and Plan (1) Urinary retention: Status: Acute (2) Severe recurrent major depression w/psychotic features, mood-congruent: Status: Acute Plan 72-year-old female with a PMH significant for?unspecified mild dementia/cognitive impairment, MDD, and POONAM who was admitted to M5 psych unit?for increasing depression and agitation. On the unit patient was steadily declining, refusing meds, ECT, agitated and hopeless, and moving away from reality. Was transfered to med floor for management of Layo, electrolytes abnormalities, dehydration, and SIRS causing metabolic encephalopathy LAYO d/t dehydration, resolved with IVF Hypokalemia/hypophos: resolved with replacement Metabolic encephalopathy: multifactorial (dehydration, renal failure, med interaction on top of underlying cognitive impairment). CT ok, NH3 nl. Back to her baseline SIRS criteria (elevated WBC, tachycardia) d/t dehydration, resolved Acute lactic acidosis--d/t dehyration, LAYO NOT sepsis, resolved with IVF HypErnatremia--due to dehydration and resolved with IVF. Tachycardia d/t dehydration--resolved Transaminitis--mild and nearly resolved, AST 23 normal , ALT 46, monitor routines Mild Elevated troponin with no chest pain and ECG changes, likely from renal failure, tachycardia at that time.. Repeat troponin I went downe, no ischemic changes on ECG Echocardiogram today show normal EF,no regional wall motion abnormalities, not a full study as she asked tech to leave.. At this time further cardiac testing indicated before ECT. Webbing Supervisor attempted to assess patient but she would not participate but based on the available information and the need for ECT to improve patient's condition, no further testing at this point Mood disorder/Depression--Seroquel, clonidine, Psych following and to decide on further treatement HTN: nl BP, no indication for meds at this time urinary retention: seen by uro, Continue Flomax, Almaraz dc, SC with PVR > 350 To Psych when bed available Quality Stroke Does the patient have a stroke diagnosis?: No VTE Prior VTE?: No VTE Risk Level:: Medical - moderate - high VTE Device Contraindication: Treatment Not Indicated VTE Drug Contraindication: N/A - Med Ordered
== END 2023-06-24 17:48 | DRG 640 ==
LOC: HO.IMC 06-17 10:12 → HO.S3 06-19 13:45
PROVIDERS: Internal Medicine; Psychiatry & Neurology Psychiatry; Student in an Organized Health Care Education/Training Program; Admitting Provider Internal Medicine; PCP Internal Medicine; Visit Provider Internal Medicine
DX: E86.0 Dehydration (principal); G93.41 Metabolic encephalopathy; N17.9 Acute kidney failure, unspecified; R65.10 Systemic inflammatory response syndrome (SIRS) of non-infectious origin without acute organ dysfunction; F33.3 Major depressive disorder, recurrent, severe with psychotic symptoms; R33.9 Retention of urine, unspecified; F41.1 Generalized anxiety disorder; E87.6 Hypokalemia; I10 Essential (primary) hypertension; E87.21 Acute metabolic acidosis; E87.0 Hyperosmolality and hypernatremia; E87.20 Acidosis, unspecified; F03.A0 Unspecified dementia, mild, without behavioral disturbance, psychotic disturbance, mood disturbance, and anxiety; E83.41 Hypermagnesemia; Z20.822 Contact with and (suspected) exposure to COVID-19; Z91.199 Patient's noncompliance with other medical treatment and regimen due to unspecified reason; Z91.148 Patient's other noncompliance with medication regimen for other reason; Z79.899 Other long term (current) drug therapy
CPT/HCPCS: 0241U; 36415; 70450; 71045; 80048; 80053; 80076; 81001; 82140; 83036; 83735; 84100; 84132; 84484; 85025; 85027; 86780; 87086; 93005; 93308; C1758; J0360; J0696; J1644; J2060; J2359; J3480; Q9957; S9485

== ENCOUNTER 2023-06-14 18:14 | Outpatient (BNV) | payer MEDICARE, MEDICAID, SELFPAY | END 2023-06-15 20:54 | PROVIDERS: Admitting Provider Internal Medicine; PCP Internal Medicine; Visit Provider Internal Medicine Cardiovascular Disease | DX: R00.0 Tachycardia, unspecified (principal) | CPT/HCPCS: 93010 ==

== ENCOUNTER 2023-06-14 18:14 | Outpatient (BNV) | payer MEDICARE, MEDICAID, SELFPAY | END 2023-06-24 07:00 | PROVIDERS: Admitting Provider Internal Medicine; PCP Internal Medicine; Visit Provider Internal Medicine | DX: R00.0 Tachycardia, unspecified (principal); R94.31 Abnormal electrocardiogram [ECG] [EKG] | CPT/HCPCS: 93010; 93308 ==

== ENCOUNTER → 2023-06-14 18:14 | Outpatient (BNV) | payer MEDICARE, MEDICAID, SELFPAY | PROVIDERS: Admitting Provider Internal Medicine; PCP Internal Medicine; Visit Provider Student in an Organized Health Care Education/Training Program | DX: F33.3 Major depressive disorder, recurrent, severe with psychotic symptoms (principal); R41.82 Altered mental status, unspecified | CPT/HCPCS: 99223; 99231; 99232; 99239 ==

== ENCOUNTER → 2023-06-14 18:14 | Outpatient (BNV) | payer MEDICARE, MEDICAID, SELFPAY | PROVIDERS: Admitting Provider Internal Medicine; PCP Internal Medicine; Visit Provider Urology | DX: R33.9 Retention of urine, unspecified (principal); F03.A0 Unspecified dementia, mild, without behavioral disturbance, psychotic disturbance, mood disturbance, and anxiety | CPT/HCPCS: 99232 ==

== ENCOUNTER → 2023-06-14 18:14 | Outpatient (BNV) | payer MEDICARE, MEDICAID, SELFPAY | PROVIDERS: Admitting Provider Internal Medicine; PCP Internal Medicine; Visit Provider Psychiatry & Neurology Psychiatry | DX: F33.3 Major depressive disorder, recurrent, severe with psychotic symptoms (principal); R41.82 Altered mental status, unspecified | CPT/HCPCS: 99232; 99233 ==

== ENCOUNTER → 2023-06-14 18:14 | Outpatient (BNV) | payer MEDICARE, MEDICAID, SELFPAY | PROVIDERS: Admitting Provider Internal Medicine; PCP Internal Medicine; Visit Provider Psychiatry & Neurology Psychiatry | DX: F33.3 Major depressive disorder, recurrent, severe with psychotic symptoms (principal); F03.A0 Unspecified dementia, mild, without behavioral disturbance, psychotic disturbance, mood disturbance, and anxiety | CPT/HCPCS: 99231; 99232 ==

== ENCOUNTER 2023-06-24 17:54 | Outpatient (BNV) | payer MEDICARE, SELFPAY | END 2023-06-25 18:14 | PROVIDERS: Admitting Provider Psychiatry & Neurology Psychiatry; Visit Provider Internal Medicine | DX: R00.0 Tachycardia, unspecified (principal); R94.31 Abnormal electrocardiogram [ECG] [EKG] | CPT/HCPCS: 93010 ==

== ENCOUNTER 2023-06-24 17:54 | Inpatient (IN) | payer MEDICARE, MEDICAID, SELFPAY ==
--- NOTE | ~2023-06-24 | XR_ITS ---
EXAMINATION: XR LUMBOSACRAL SPINE CLINICAL INFORMATION: Low back pain. History of vertebral fracture/osteoporosis. COMPARISON: Chest x-ray 01/29/2023 TECHNIQUE: Three views of the lumbosacral spine. FINDINGS: There is maintained lumbar lordosis. There is loss of L2 vertebral height with cement augmentation. Also visualized is loss of L1, T12 and T11 vertebral heights, likely old. XR/XR lumbar spine 2-3V IMPRESSION: 1. No acute fracture or dislocation. 2. There is loss of L2 vertebral height with remote cement augmentation. 3. There is loss of L1, T12 and T11 vertebral heights, likely old.
--- NOTE | 2023-06-24 14:37 | P.HPPS_ITS ---
ANNABEL Date of Service: 06/24/23 Chief Complaint: Severe depression with psychotic features Sources of Information: patient interviewed and chart reviewed Additional Sources of Information: Patient well known to this song writer doc to doc completed with Dr. Silver patient seen at noon case reviewed with Dr. Silver HPI Subjective Notes: Section 8 Narrative: The patient is a 72-year-old female with a history of psychotic depression with history of mixed states initially admitted to the psychiatric unit on M 5 secondary to severe depression and patient had been agreeable to ECT. She had been treated outpatient had been stable for an extended period of time on Trintellix doxepin caplyta. Patient became increasingly depressed perhaps in the context of seasonal effects and also recently here had been diagnosed with some neurological illness. The patient while on the psych unit had 1 unilateral ECT treatment and after this song writer went on vacation the patient began to refuse food and fluids and refused medication. She was noted to have an acute change in renal function required IV fluids and also had an episode of urinary retention. Patient was treated on the medical floor and stabilized began to eat and drink again and had been off almost all of her medications which also included Aricept and Namenda. Civil commitment and treatment order paperwork had been filed and was approved this includes electroconvulsive therapy. In general by history when the patient has had a psychotic depression she generally only responded to the addition of ECT which she has had multiple times in the past we have type try to use unilateral The patient also had had an episode of hypokalemia she on the medical floor CBC chemistries generally unremarkable seems to have stabilized patient delusional concerned that God wants her or that she is and given that she was refusing food fluid and medication self commitment and treatment order were obtained Past Psychiatric History: Patient with long history of recurrent depression with multiple prior psychiatric hospitalizations. 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 no classic bipolar symptoms past depressive psychotic episodes not for a number of years Medical Evaluation Reviewed: Yes [facility] Medical History Dementia Severe recurrent major depression w/psychotic features, mood-congruent Has daytime drowsiness Nocturnal hypoxia Preoperative examination Elevated glucose Screening for colon cancer Screening for diabetes mellitus Obesity (BMI 30-39.9) Confused but orients easily Depression, major, severe recurrence Abnormal serum protein electrophoresis Mild recurrent major depression Anxiety and depression Encounter for Medicare annual wellness exam Removal of nell Depression with anxiety Abdominal distention Weight gain Major depression, recurrent, full remission POONAM (generalized anxiety disorder) Hypothyroidism Hyperparathyroidism Multinodular thyroid Vitamin D deficiency Osteoporosis Surgical History Hx of colonoscopy Hx of kyphoplasty Hx of section Social History: Patient disabled has 1 son. Chronic anxiety has an intermittent difficult relationship with her mostly has not worked Trauma History: None noted Meds/Allergies Meds Home Medications Medication Instructions Recorded Confirmed Type doxepin 25 mg capsule 50 mg PO BEDTIME 06/15/23 06/15/23 History lumateperone 21 mg capsule 21 mg PO DAILY@1700 06/15/23 06/15/23 History memantine 5 mg tablet 10 mg PO BID 06/15/23 06/15/23 History Allergies Allergies Allergy/AdvReac Type Severity Reaction Status Date / Time risperidone [From Risperdal] Allergy Intermediate UNKNOWN Verified 05/12/23 13:13 Sulfa (Sulfonamide Allergy Intermediate rash Verified 05/12/23 13:13 Antibiotics) From BENADRYL Allergy Intermediate DIZZY Uncoded 02/14/23 11:47 Mental Status Exam Mental Status Exam Narrative: The patient is seen in her room she is wearing hospital garb she has an obvious withdrawal oral facial dyskinesia. Her mood is depressed and anxious her attention variable. At times she is able to say that she is quite depressed and what is going help her at other times saying that she is that she is short of breath and dying and becomes illogical and confused she does seem supported thought of being on the psychiatric unit again she goes back and forth regarding the possibility of ECT although she is able to take in the reminder that she has responded quite well in the past to ECT she is complaining of some back pain impulse control judgment severely impaired Assessment & Plan Patient educated on: diagnosis, medication risk/benefits, substance abuse, ECT and medical condition Informed Consent: does not understand Reason for continued inpatient stay Substantial Risk for: harm to self, inability to function and med/psych decompensation Statement Statement: I have reviewed the history and physical and performed a pertinent examination on my patient. No changes have occurred unless specified. If the History and Physical was not performed prior to admission, the Hospitalist's service will be consulted for completing the admission physical. Time Spent With Patient Time: Total time managing care of this patient today 60____ minutes.06/24/23
[2023-06-24 18:30] VITALS: BP 108/75; PULSE 114; RESP 16; TEMP 36.3; O2SAT 97
--- NOTE | 2023-06-24 18:45 | PC.NURSE ---
Arrived to the unit at 1830 via wheelchair. Skin check completed. Legals signed. Placed on 1:1. Vitals obtained. Oriented to unit. Admission needs to be completed.
[2023-06-24] MEDS: hydrOXYzine HCL 25 MG TABLET PO (21:56)
[2023-06-24] MEDS: Acetaminophen 325 MG TABLET 650 MG PO (21:56)
[2023-06-24 21:59] VITALS: BP 118/68; PULSE 105; RESP 18; TEMP 35.8; O2SAT 94
--- NOTE | 2023-06-24 22:04 | PC.ADMIT ---
Addendum entered by Enamnuel Bills RN 06/25/23 07:04: pt arrived on unit 06/24/23 at 1830 Original Note: pt arrived via stretcher on @830 Legal Status 7&8 per report, need to obtain legal documents. pt is a transfer from medical, pt presents with depression, hopelessness and dementia, pt had previously been on psych floor for anxiety, agitation and medication noncompliance, pt is A&O to person and place, pt [place] speaking but understands some Czech, pt denies SI, HI, AH, VH. pt is known to [facility] psych, pt is a 1:1 for safety, pt is unsteady and impulsive. pt reports poor sleep and appetite
--- NOTE | 2023-06-25 | ECG_ITS ---
Test Reason : PREOP Blood Pressure : / mmHG Vent. Rate : 108 BPM Atrial Rate : 108 BPM P-R Int : 138 ms QRS Dur : 070 ms QT Int : 312 ms P-R-T Axes : 061 002 061 degrees QTc Int : 418 ms Sinus tachycardia Possible Inferior infarct (cited on or before 15-JUN-2023) Abnormal ECG When compared with ECG of 24-JUN-2023 12:56, No significant changes seen Referred By: Broderick Willett Electronically Signed By:ELISE WEI
[2023-06-25] MEDS: LORazepam 0.5 MG TABLET PO ×2 (00:47→17:41)
[2023-06-25] MEDS: Donepezil HCl 5 MG TABLET PO (00:48)
[2023-06-25] MEDS: Melatonin 3 MG TABLET 6 MG PO (00:48)
[2023-06-25] MEDS: Memantine HCl 5 MG TABLET PO ×2 (00:49→10:22)
[2023-06-25 07:00] VITALS: BMI 28.5
[2023-06-25 09:14] VITALS: BP 110/77; PULSE 93; RESP 16; TEMP 36.8; O2SAT 97
[2023-06-25] MEDS: Sodium,Potassium Phosphates POWD.PACK 1 PACKET PO ×3 (10:20→17:13)
[2023-06-25] MEDS: Acetaminophen 325 MG TABLET 650 MG PO (10:20)
[2023-06-25] MEDS: Cariprazine HCl 1.5 MG CAPSULE PO (10:22)
[2023-06-25] MEDS: Vortioxetine Hydrobromide 5 MG TABLET PO (10:22)
[2023-06-25] MEDS: Thiamine HCL 100 MG TABLET PO (10:22)
[2023-06-25] MEDS: Lidocaine 4 % Patch ADH..PATCH 1 PATCH TRANSDERMA (10:23)
[2023-06-25 11:33] LABS: COVID-19 Test Negative (Negative); IDNOW Serial# 58CA691E
[2023-06-25 12:26] VITALS: BMI 29.7
[2023-06-25] MEDS: Tamsulosin HCL 0.4 MG CAPSULE PO (17:13)
--- NOTE | 2023-06-25 17:25 | P.PNPSI_ITS ---
Subjective Subjective Date of Service: 06/25/23 Reason For Visit: Severe depression with psychotic features Subjective Notes: Section 8 Guardianship: No Medical Problems Affecting Mental Status: Yes Interim History: Patient severely depressed alert and improved ambulation has been more accepting of medication. Patient is severely depressed with bizarre delusions thinks she is that all of us are knows her name knows my name know she is at [facility] Medication Compliance: Intermittent Mental Status Exam Mental Status Exam Narrative: Patient is seen in her room she is somewhat disheveled looks distressed. Some improvement in oral facial dyskinesia mood depressed anxious apprehensive. 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 where she lives easily distracted internally preoccupied Diagnostics Vital Signs (24Hr): Vital Signs - 24 hr 06/24/23 18:30 06/24/23 21:59 06/25/23 09:14 Temperature 97.4 F 96.5 F L 98.3 F Pulse Rate 114 H 105 H 93 Respiratory Rate 16 18 16 Blood Pressure 108/75 118/68 110/77 Pulse Oximetry 97 94 97 Oxygen Delivery Method Room Air Room Air Room Air BMI result Body Mass Index 29.7 Labs Labs: Laboratory Results - last 48 hr 06/25/23 10:35 COVID-19 ([facility]) Negative COVID-19 Clin Com See Note EKG EKG Comment: Recent echo unremarkable Medications Medications Current Medications Acetaminophen (Acetaminophen 325 Mg Tablet) 650 mg PO Q6H PRN PRN Reason: Headache/Pain Mild Scale (1-3) Last Admin: 06/25/23 10:20 Dose: 650 mg Al Hydroxide/Mg Hydroxide (Magnesium Hydrox/Alum Hydrox 30 Ml Oral.Susp) 30 ml PO Q6H PRN PRN Reason: Heartburn/Nausea Cariprazine (Cariprazine Hcl 1.5 Mg Capsule) 1.5 mg PO DAILY [facility] Last Admin: 06/25/23 10:22 Dose: 1.5 mg Clonidine (Clonidine 0.2 Mg Patch.Tdwk) 0.2 mg TRANSDERMA We@0900 [facility]; Protocol Docusate Sodium (Docusate Sodium 100 Mg Capsule) 100 mg PO DAILY PRN PRN Reason: Constipation Donepezil HCl (Donepezil Hcl 5 Mg Tablet) 5 mg PO BEDTIME [facility] Last Admin: 06/25/23 00:48 Dose: 5 mg Hydralazine HCl (Hydralazine Hcl 20 Mg/Ml Vial) 10 mg IVPUSH Q6H PRN; Protocol PRN Reason: SBP > 160 Hydroxyzine HCl (Hydroxyzine Hcl 25 Mg Tablet) 25 mg PO Q6H PRN PRN Reason: Anxiety Last Admin: 06/24/23 21:56 Dose: 25 mg Ibuprofen (Ibuprofen 200 Mg Tablet) 200 mg PO Q6H PRN PRN Reason: Pain, Moderate(Pain Scale 4-6) Lidocaine (Lidocaine 4 % Patch Adh..Patch) 1 patch TRANSDERMA DAILY [facility]; Protocol Last Admin: 06/25/23 10:23 Dose: 1 patch Lorazepam (Lorazepam 0.5 Mg Tablet) 0.5 mg PO Q4H PRN PRN Reason: Anxiety Last Admin: 06/25/23 00:47 Dose: 0.5 mg Magnesium Hydroxide (Milk Of Magnesia 30 Ml Oral.Susp) 30 ml PO DAILY PRN PRN Reason: Constipation Melatonin (Melatonin 3 Mg Tablet) 6 mg PO BEDTIME PRN PRN Reason: Insomnia Last Admin: 06/25/23 00:48 Dose: 6 mg Memantine (Memantine Hcl 5 Mg Tablet) 5 mg PO BID [facility] Last Admin: 06/25/23 10:22 Dose: 5 mg Nystatin (Nystatin Cream 15 Gm Tube) 1 appl TOPICAL BID [facility]; Protocol Last Admin: 06/25/23 00:45 Dose: Not Given Potassium Phos/Sodium Phos (Sodium,Potassium Phosphates Powd.Pack) 1 packet PO QID [facility] Last Admin: 06/25/23 13:28 Dose: 1 packet Quetiapine Fumarate (Quetiapine Fumarate 25 Mg Tablet) 25 mg PO BEDTIME [facility] Tamsulosin HCl (Tamsulosin Hcl 0.4 Mg Capsule) 0.4 mg PO DAILY@1730 [facility] Thiamine HCl (Thiamine Hcl 100 Mg Tablet) 100 mg PO BID [facility] Last Admin: 06/25/23 10:22 Dose: 100 mg Vortioxetine (Vortioxetine Hydrobromide 5 Mg Tablet) 5 mg PO DAILY [facility] Last Admin: 06/25/23 10:22 Dose: 5 mg Allergies Allergies Allergy/AdvReac Type Severity Reaction Status Date / Time risperidone [From Risperdal] Allergy Intermediate UNKNOWN Verified 05/12/23 13:13 Sulfa (Sulfonamide Allergy Intermediate rash Verified 05/12/23 13:13 Antibiotics) From BENADRYL Allergy Intermediate DIZZY Uncoded 02/14/23 11:47 Assessment & Plan Assessment & Plan (1) Severe recurrent major depression w/psychotic features, mood-congruent: Status: Acute Code(s): F33.3 - Major depressive disorder, recurrent, severe with psychotic symptoms Plan Patient is severely depressed depressive psychotic symptoms thinking she is that God wants her labile mood thought disorganization scheduled for ECT in am has generally done well with ECT. 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 Patient educated on: diagnosis and ECT Informed Consent: does not understand and further education needed Reason for continued inpatient stay Substantial Risk for: harm to self, inability to function and med/psych decompensation Time Spent With Patient Time: Total time managing care of this patient today __35__ minutes.
[2023-06-25] MEDS: QUEtiapine Fumarate 25 MG TABLET PO (17:41)
[2023-06-25] MEDS: Nystatin Cream 15 GM TUBE 1 APPL TOPICAL (17:44)
[2023-06-26] VITALS (10 sets, daily range): BP systolic 114–184; BP diastolic 67–93; PULSE 96–136; RESP 16–27; TEMP 17.9–36.9; O2SAT 95–100
--- NOTE | 2023-06-26 09:24 | HO.ANESPROP2 ---
[facility] Active Problems Active Problems: All Active Problems (Updated 06/22/23 @ 00:01 by Tasha Loyola) Psychotic depression (Acute) Urinary retention (Acute) Hypokalemia (Acute) Dementia (Acute) Severe recurrent major depression w/psychotic features, mood-congruent (Acute) LAYO (acute kidney injury) (Acute) Lactic acidosis (Acute) Altered mental status (Acute) Major depressive disorder, recurrent severe without psychotic features (Acute) Major depression, recurrent, full remission (Acute) Insomnia (Acute) POONAM (generalized anxiety disorder) (Acute) Hypothyroidism (Acute) Multinodular thyroid (Acute) Vitamin D deficiency (Acute) Osteoporosis (Acute) Past Medical History Medical History Dementia Severe recurrent major depression w/psychotic features, mood-congruent Has daytime drowsiness Nocturnal hypoxia Preoperative examination Elevated glucose Screening for colon cancer Screening for diabetes mellitus Obesity (BMI 30-39.9) Confused but orients easily Depression, major, severe recurrence Abnormal serum protein electrophoresis Mild recurrent major depression Anxiety and depression Encounter for Medicare annual wellness exam Removal of nell Depression with anxiety Abdominal distention Weight gain Major depression, recurrent, full remission POONAM (generalized anxiety disorder) Hypothyroidism Hyperparathyroidism Multinodular thyroid Vitamin D deficiency Osteoporosis Family History Family History Father Myocardial infarction CVD (cardiovascular disease) Mother Dementia Alzheimer disease Other Mental health disorder Family history of problems with anesthesia: No Surgical History Surgical History Hx of colonoscopy Hx of kyphoplasty Hx of section History of Problems with Anesthesia: No Social History Social History Household Members: Spouse Housing: House Do you presently have visiting nurse or other home services: Yes Alcohol intake: never Comment: 1:1 sitter at bedside Patient Tobacco Use Status: Never used Tobacco Smoked in Last 30 Days: No e-Cigarette/Vaping Use: Never Used Patient Interested in Nicotine Replacement: No Patient Given Instructions on How to Stop Smoking: No Second Hand Smoke Exposure: No Use of substances other than those prescribed or required for medical reasons: No Currently Displaying Signs/Symptoms of Drug Intoxication Withdrawal: No Any prior treatment program specific to substance use: No Have you been hit, kicked, punched, or otherwise hurt by someone within the past year? If so, by whom?: No Do you feel safe in your current relationship?: Yes Is there a partner from a previous relationship who is making you feel unsafe now?: No Are you made to feel afraid or neglected: No Advance Directives: No Do you have thoughts of harming others: None Do you have a plan to hurt others: No Plan Recently lost weight without trying: No Nutrition Risks: No Nutritional Risk Patient : No : No Poor oral hygiene: No service: No Current occupational status: unemployed Sexual orientation: Straight/Heterosexual Cognitive needs: No Hearing needs: No Meds Allergies Allergy/AdvReac Type Severity Reaction Status Date / Time risperidone [From Risperdal] Allergy Intermediate UNKNOWN Verified 05/12/23 13:13 Sulfa (Sulfonamide Allergy Intermediate rash Verified 05/12/23 13:13 Antibiotics) From BENADRYL Allergy Intermediate DIZZY Uncoded 02/14/23 11:47 Active Medications: Current Medications Acetaminophen (Acetaminophen 325 Mg Tablet) 650 mg PO Q6H PRN PRN Reason: Headache/Pain Mild Scale (1-3) Last Admin: 06/25/23 10:20 Dose: 650 mg Al Hydroxide/Mg Hydroxide (Magnesium Hydrox/Alum Hydrox 30 Ml Oral.Susp) 30 ml PO Q6H PRN PRN Reason: Heartburn/Nausea Cariprazine (Cariprazine Hcl 1.5 Mg Capsule) 1.5 mg PO DAILY [facility] Last Admin: 06/25/23 10:22 Dose: 1.5 mg Clonidine (Clonidine 0.2 Mg Patch.Tdwk) 0.2 mg TRANSDERMA We@0900 [facility]; Protocol Docusate Sodium (Docusate Sodium 100 Mg Capsule) 100 mg PO DAILY PRN PRN Reason: Constipation Donepezil HCl (Donepezil Hcl 5 Mg Tablet) 5 mg PO BEDTIME [facility] Last Admin: 06/25/23 23:28 Dose: Not Given Hydralazine HCl (Hydralazine Hcl 20 Mg/Ml Vial) 10 mg IVPUSH Q6H PRN; Protocol PRN Reason: SBP > 160 Hydroxyzine HCl (Hydroxyzine Hcl 25 Mg Tablet) 25 mg PO Q6H PRN PRN Reason: Anxiety Last Admin: 06/24/23 21:56 Dose: 25 mg Lactated Ringer's (Lr) 1,000 mls @ 50 mls/hr IVCONT .Q20H [facility] Ibuprofen (Ibuprofen 200 Mg Tablet) 200 mg PO Q6H PRN PRN Reason: Pain, Moderate(Pain Scale 4-6) Lidocaine (Lidocaine 4 % Patch Adh..Patch) 1 patch TRANSDERMA DAILY [facility]; Protocol Last Admin: 06/25/23 10:23 Dose: 1 patch Lorazepam (Lorazepam 0.5 Mg Tablet) 0.5 mg PO Q4H PRN PRN Reason: Anxiety Last Admin: 06/25/23 00:47 Dose: 0.5 mg Magnesium Hydroxide (Milk Of Magnesia 30 Ml Oral.Susp) 30 ml PO DAILY PRN PRN Reason: Constipation Melatonin (Melatonin 3 Mg Tablet) 6 mg PO BEDTIME PRN PRN Reason: Insomnia Last Admin: 06/25/23 00:48 Dose: 6 mg Memantine (Memantine Hcl 5 Mg Tablet) 5 mg PO BID [facility] Last Admin: 06/25/23 23:29 Dose: Not Given Nystatin (Nystatin Cream 15 Gm Tube) 1 appl TOPICAL BID [facility]; Protocol Last Admin: 06/25/23 23:29 Dose: Not Given Potassium Phos/Sodium Phos (Sodium,Potassium Phosphates Powd.Pack) 1 packet PO QID [facility] Last Admin: 06/25/23 23:30 Dose: Not Given Quetiapine Fumarate (Quetiapine Fumarate 25 Mg Tablet) 25 mg PO BEDTIME [facility] Last Admin: 06/25/23 23:29 Dose: Not Given Tamsulosin HCl (Tamsulosin Hcl 0.4 Mg Capsule) 0.4 mg PO DAILY@1730 [facility] Last Admin: 06/25/23 17:13 Dose: 0.4 mg Thiamine HCl (Thiamine Hcl 100 Mg Tablet) 100 mg PO BID [facility] Last Admin: 06/25/23 23:30 Dose: Not Given Vortioxetine (Vortioxetine Hydrobromide 5 Mg Tablet) 5 mg PO DAILY [facility] Last Admin: 06/25/23 10:22 Dose: 5 mg Home Medications Medication Instructions Recorded Confirmed Last Taken Type doxepin 25 mg capsule 50 mg PO BEDTIME 06/15/23 06/15/23 Unknown History lumateperone 21 mg capsule 21 mg PO DAILY@1700 06/15/23 06/15/23 Unknown History memantine 5 mg tablet 10 mg PO BID 06/15/23 06/15/23 Unknown History Exam Height,Weight and Vital Signs: Height 5 ft Weight 69.1 kg Last Vital Signs Temp 97.1 F 06/26/23 08:52 Pulse 111 H 06/26/23 08:52 Resp 20 06/26/23 08:52 BP 114/81 06/26/23 08:52 Pulse Ox 96 06/26/23 08:52 O2 Del Method Room Air 06/26/23 08:52 Pertinent Lab Results Pertinent Lab Results: Laboratory Tests 06/25/23 10:35 COVID-19 ([facility]) Negative COVID-19 Clin Com See Note Airway Mallampati Class: II (missing multiple teeth) TM Dist: >3cm Neck ROM: Full Heart: rrr Lungs: cta Assessment and Plan Assessment Anesthesia Assessment: Anesthesia Plan Discussed and Chart Reviewed Final Anesthetic Review Family History of Problems with Anesthesia: No History of Problems with Anesthesia: No NPO: Yes ASA Class: III Final Preanesthetic Review: No Changes in Pt Med Stat and Meds/Allgs Chart Reviewed Patient Risk: Intermediate Procedure Risk: Intermediate Anesthetic Plan Anesthetic Plan: GA Disposition: Standard PACU
--- NOTE | 2023-06-26 10:27 | MHC.SHP ---
Pre-Procedural Eval Section A Date of Service: 06/26/23 The patient is an INPATIENT: Yes Changes since office visit: Yes New Medical Problems and Yes Changes in Medication; No Cold of Flu in the past 2 weeks and No Patient answered all questions The History & Physical has been completed within 30 days and I have reviewed it.: Yes Section B Chief Complaint: Severe depression with psychotic features Allergies: Allergies Allergy/AdvReac Type Severity Reaction Status Date / Time risperidone [From Risperdal] Allergy Intermediate UNKNOWN Verified 05/12/23 13:13 Sulfa (Sulfonamide Allergy Intermediate rash Verified 05/12/23 13:13 Antibiotics) From BENADRYL Allergy Intermediate DIZZY Uncoded 02/14/23 11:47 Plan I have reviewed the history and physical and performed a pertinent physical examination on my patient. No changes have occurred unless specified. Time Spent With Patient Time: Total time managing care of this patient today ____ minutes.
--- NOTE | 2023-06-26 10:45 | HO.ECTPROC ---
ECT Procedure Note Diagnosis/Treatment Date of Service: 06/26/23 Diagnosis: Major Depressive Disorder Current Treatment Number: 1 Treatment: Series Interval Clinical Notes: Pt had first ect court ordered for tx resistant depression monitor for confusion may need two x wk not 3 Time: Total time managing care of this patient today __30__ minutes. ECT Settings Device: THYMATRON DGx Electrode Placement: Right Unilateral Program/Pulse Width: 0.25 Energy Percent: 40 Seizure Duration By EEG (in seconds): 42 Medications Administration General Anesthetic: Etomidate (10) Muscle Relaxant: Succinylcholine (80) Ancillary Medications Anti-emetics: Zofran - Pre ECT Miscillaneous Medications: Propofol Airway Management Airway Management: Bag Mask Ventilation Treatment Recommendations Electrode Placement: Right Unilateral Program/Pulse Width: 0.25 Energy Percent: 25 Notes: Patient has had esmolol in past did not need this time ? had extended delerium Pt Tolerated Procedure w/o Issue: Yes
[2023-06-26] MEDS: Sodium,Potassium Phosphates POWD.PACK 1 PACKET PO ×3 (11:33→17:10)
[2023-06-26] MEDS: Memantine HCl 5 MG TABLET PO (11:33)
[2023-06-26] MEDS: Lidocaine 4 % Patch ADH..PATCH 1 PATCH TRANSDERMA (11:33)
[2023-06-26] MEDS: Vortioxetine Hydrobromide 5 MG TABLET PO (11:33)
[2023-06-26] MEDS: Cariprazine HCl 1.5 MG CAPSULE PO (11:33)
[2023-06-26] MEDS: Thiamine HCL 100 MG TABLET PO (11:33)
[2023-06-26] MEDS: Nystatin Cream 15 GM TUBE 1 APPL TOPICAL (14:38)
[2023-06-26] MEDS: Tamsulosin HCL 0.4 MG CAPSULE PO (17:10)
--- NOTE | 2023-06-26 17:31 | P.PNPSI_ITS ---
Subjective Subjective Date of Service: 06/26/23 Reason For Visit: Severe depression with psychotic features Subjective Notes: Section 8 Interim History: Patient completed ECT 1. New series patient acute confusional psychotically depressed state thinks she is in the world is unreal had increased confusion post ECT she will be more prone to post ECT delirium consider holding off on 06/29/2023 treatment depending on her clearing from ECT Mental Status Exam Mental Status Exam Narrative: Patient is seen in her room she is somewhat disheveled looks perplexed improvement in oral facial dyskinesia mood depressed anxious apprehensive. 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 easily distracted internally preoccupied Diagnostics Vital Signs (24Hr): Vital Signs - 24 hr 06/26/23 08:00 06/26/23 08:37 06/26/23 08:52 Temperature 97.2 F 97.2 F 97.1 F Pulse Rate 109 H 109 H 111 H Respiratory Rate 18 18 20 Blood Pressure 130/67 130/67 114/81 Pulse Oximetry 95 96 Oxygen Delivery Method Room Air Room Air Oxygen Flow Rate 06/26/23 10:54 06/26/23 10:59 06/26/23 11:04 Temperature 64.2 F L Pulse Rate 132 H 136 H 126 H Respiratory Rate 27 H 25 H 23 H Blood Pressure 170/90 H 184/91 H 159/88 H Pulse Oximetry 100 99 98 Oxygen Delivery Method Nasal Cannula with ETCO2 Nasal Cannula with ETCO2 Nasal Cannula with ETCO2 Oxygen Flow Rate 3 3 2 06/26/23 11:09 06/26/23 11:24 06/26/23 11:30 Temperature 98.4 F 97.7 F Pulse Rate 115 H 112 H 128 H Respiratory Rate 20 20 18 Blood Pressure 142/88 H 145/89 H 153/84 H Pulse Oximetry 97 99 95 Oxygen Delivery Method Room Air Room Air Oxygen Flow Rate BMI result Body Mass Index 29.7 Labs Labs: Laboratory Results - last 48 hr 06/25/23 10:35 COVID-19 ([facility]) Negative COVID-19 Clin Com See Note Medications Medications Current Medications Acetaminophen (Acetaminophen 325 Mg Tablet) 650 mg PO Q6H PRN PRN Reason: Headache/Pain Mild Scale (1-3) Last Admin: 06/25/23 10:20 Dose: 650 mg Al Hydroxide/Mg Hydroxide (Magnesium Hydrox/Alum Hydrox 30 Ml Oral.Susp) 30 ml PO Q6H PRN PRN Reason: Heartburn/Nausea Cariprazine (Cariprazine Hcl 1.5 Mg Capsule) 1.5 mg PO DAILY [facility] Last Admin: 06/26/23 11:33 Dose: 1.5 mg Clonidine (Clonidine 0.2 Mg Patch.Tdwk) 0.2 mg TRANSDERMA We@0900 [facility]; Protocol Docusate Sodium (Docusate Sodium 100 Mg Capsule) 100 mg PO DAILY PRN PRN Reason: Constipation Donepezil HCl (Donepezil Hcl 5 Mg Tablet) 5 mg PO BEDTIME [facility] Last Admin: 06/25/23 23:28 Dose: Not Given Hydralazine HCl (Hydralazine Hcl 20 Mg/Ml Vial) 10 mg IVPUSH Q6H PRN; Protocol PRN Reason: SBP > 160 Hydroxyzine HCl (Hydroxyzine Hcl 25 Mg Tablet) 25 mg PO Q6H PRN PRN Reason: Anxiety Last Admin: 06/24/23 21:56 Dose: 25 mg Lactated Ringer's (Lr) 1,000 mls @ 50 mls/hr IVCONT .Q20H [facility] Last Admin: 06/26/23 11:40 Dose: Not Given Ibuprofen (Ibuprofen 200 Mg Tablet) 200 mg PO Q6H PRN PRN Reason: Pain, Moderate(Pain Scale 4-6) Lidocaine (Lidocaine 4 % Patch Adh..Patch) 1 patch TRANSDERMA DAILY [facility]; Protocol Last Admin: 06/26/23 11:33 Dose: 1 patch Lorazepam (Lorazepam 0.5 Mg Tablet) 0.5 mg PO Q4H PRN PRN Reason: Anxiety Last Admin: 06/25/23 00:47 Dose: 0.5 mg Magnesium Hydroxide (Milk Of Magnesia 30 Ml Oral.Susp) 30 ml PO DAILY PRN PRN Reason: Constipation Melatonin (Melatonin 3 Mg Tablet) 6 mg PO BEDTIME PRN PRN Reason: Insomnia Last Admin: 06/25/23 00:48 Dose: 6 mg Memantine (Memantine Hcl 5 Mg Tablet) 5 mg PO BID [facility] Last Admin: 06/26/23 11:33 Dose: 5 mg Nystatin (Nystatin Cream 15 Gm Tube) 1 appl TOPICAL BID [facility]; Protocol Last Admin: 06/26/23 14:38 Dose: 1 appl Potassium Phos/Sodium Phos (Sodium,Potassium Phosphates Powd.Pack) 1 packet PO QID [facility] Last Admin: 06/26/23 17:10 Dose: 1 packet Quetiapine Fumarate (Quetiapine Fumarate 25 Mg Tablet) 25 mg PO BEDTIME [facility] Last Admin: 06/25/23 23:29 Dose: Not Given Tamsulosin HCl (Tamsulosin Hcl 0.4 Mg Capsule) 0.4 mg PO DAILY@1730 [facility] Last Admin: 06/26/23 17:10 Dose: 0.4 mg Thiamine HCl (Thiamine Hcl 100 Mg Tablet) 100 mg PO BID [facility] Last Admin: 06/26/23 11:33 Dose: 100 mg Vortioxetine (Vortioxetine Hydrobromide 5 Mg Tablet) 5 mg PO DAILY [facility] Last Admin: 06/26/23 11:33 Dose: 5 mg Allergies Allergies Allergy/AdvReac Type Severity Reaction Status Date / Time risperidone [From Risperdal] Allergy Intermediate UNKNOWN Verified 05/12/23 13:13 Sulfa (Sulfonamide Allergy Intermediate rash Verified 05/12/23 13:13 Antibiotics) From BENADRYL Allergy Intermediate DIZZY Uncoded 02/14/23 11:47 Assessment & Plan Assessment & Plan (1) Severe recurrent major depression w/psychotic features, mood-congruent: Status: Acute Code(s): F33.3 - Major depressive disorder, recurrent, severe with psychotic symptoms Plan Patient is severely depressed depressive psychotic symptoms thinking she is that God wants her labile mood thought disorganization scheduled for ECT in am has generally done well with ECT. 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 06/26/2023 Patient had ECT some confusion post ECT monitor for residual symptoms and clearing encourage food and fluids Informed Consent: does not understand Reason for continued inpatient stay Substantial Risk for: inability to function, rapid decompensation and med/psych decompensation Time Spent With Patient Time: Total time managing care of this patient today ____ minutes.
[2023-06-26] MEDS: LORazepam 0.5 MG TABLET PO (20:39)
[2023-06-27] MEDS: Acetaminophen 325 MG TABLET 650 MG PO (00:19)
[2023-06-27] MEDS: Melatonin 3 MG TABLET 6 MG PO ×2 (00:20→21:04)
[2023-06-27] MEDS: Ibuprofen 200 MG TABLET PO (00:20)
[2023-06-27] MEDS: hydrOXYzine HCL 25 MG TABLET PO (00:21)
[2023-06-27 08:18] VITALS: BP 113/61; PULSE 100; RESP 16; TEMP 36.1; O2SAT 97
[2023-06-27] MEDS: Lidocaine 4 % Patch ADH..PATCH 1 PATCH TRANSDERMA (09:34)
[2023-06-27] MEDS: Cariprazine HCl 1.5 MG CAPSULE PO (09:36)
[2023-06-27] MEDS: Vortioxetine Hydrobromide 5 MG TABLET PO (09:36)
[2023-06-27] MEDS: Memantine HCl 5 MG TABLET PO ×2 (09:36→21:05)
[2023-06-27] MEDS: Thiamine HCL 100 MG TABLET PO ×2 (09:36→21:05)
[2023-06-27] MEDS: LORazepam 0.5 MG TABLET PO ×2 (11:12→21:04)
[2023-06-27] MEDS: Sodium,Potassium Phosphates POWD.PACK 1 PACKET PO (16:48)
[2023-06-27] MEDS: Tamsulosin HCL 0.4 MG CAPSULE PO (16:49)
--- NOTE | 2023-06-27 17:15 | P.PNPSI_ITS ---
Subjective Subjective Date of Service: 06/27/23 Reason For Visit: Severe depression with psychotic features Interim History: Met with patient; discussed with team; reviewed chart Patient lying in bed, awake and alert on approach. She said that she had had ECT, which scenario writer acknowledged. She said afterwards she had no respiration; scenario writer could not discern what she meant. Staff reports that she has been calm, though isolative, but without any behavioral incidents. Mental Status Exam Mental Status Exam Narrative: Pt is alert and oriented; behavior is cooperative, but with also some disorganization; calm; patient is not in distress; dressed in casual attire with unkempt hair but adequate hygiene; mood is described as I had ECT and affect constricted; eye contact appropriate; Speech is normal rate, volume and prosody and not pressured; some psychomotor retardation present; thought process confused; Thought content is on ECT; intermittent paranoid delusions; no e xpressed SI/HI. Patients insight and judgment impaired Diagnostics Vital Signs (24Hr): Vital Signs - 24 hr 06/26/23 18:00 06/27/23 08:18 Temperature 96 F L 97.0 F Pulse Rate 96 100 Respiratory Rate 16 16 Blood Pressure 163/93 H 113/61 Pulse Oximetry 95 97 Oxygen Delivery Method Room Air Room Air BMI result Body Mass Index 29.7 Medications Medications Current Medications Acetaminophen (Acetaminophen 325 Mg Tablet) 650 mg PO Q6H PRN PRN Reason: Headache/Pain Mild Scale (1-3) Last Admin: 06/27/23 00:19 Dose: 650 mg Al Hydroxide/Mg Hydroxide (Magnesium Hydrox/Alum Hydrox 30 Ml Oral.Susp) 30 ml PO Q6H PRN PRN Reason: Heartburn/Nausea Cariprazine (Cariprazine Hcl 1.5 Mg Capsule) 1.5 mg PO DAILY [facility] Last Admin: 06/27/23 09:36 Dose: 1.5 mg Clonidine (Clonidine 0.2 Mg Patch.Tdwk) 0.2 mg TRANSDERMA We@0900 [facility]; Protocol Docusate Sodium (Docusate Sodium 100 Mg Capsule) 100 mg PO DAILY PRN PRN Reason: Constipation Donepezil HCl (Donepezil Hcl 10 Mg Tablet) 10 mg PO BEDTIME [facility] Hydralazine HCl (Hydralazine Hcl 20 Mg/Ml Vial) 10 mg IVPUSH Q6H PRN; Protocol PRN Reason: SBP > 160 Hydroxyzine HCl (Hydroxyzine Hcl 25 Mg Tablet) 25 mg PO Q6H PRN PRN Reason: Anxiety Last Admin: 06/27/23 00:21 Dose: 25 mg Ibuprofen (Ibuprofen 200 Mg Tablet) 200 mg PO Q6H PRN PRN Reason: Pain, Moderate(Pain Scale 4-6) Last Admin: 06/27/23 00:20 Dose: 200 mg Lidocaine (Lidocaine 4 % Patch Adh..Patch) 1 patch TRANSDERMA DAILY [facility]; Protocol Last Admin: 06/27/23 09:34 Dose: 1 patch Lorazepam (Lorazepam 0.5 Mg Tablet) 0.5 mg PO Q4H PRN PRN Reason: Anxiety Last Admin: 06/27/23 11:12 Dose: 0.5 mg Magnesium Hydroxide (Milk Of Magnesia 30 Ml Oral.Susp) 30 ml PO DAILY PRN PRN Reason: Constipation Melatonin (Melatonin 3 Mg Tablet) 6 mg PO BEDTIME PRN PRN Reason: Insomnia Last Admin: 06/27/23 00:20 Dose: 6 mg Memantine (Memantine Hcl 5 Mg Tablet) 5 mg PO BID [facility] Last Admin: 06/27/23 09:36 Dose: 5 mg Nystatin (Nystatin Cream 15 Gm Tube) 1 appl TOPICAL BID [facility]; Protocol Last Admin: 06/27/23 09:39 Dose: Not Given Ondansetron HCl (Ondansetron Odt 4 Mg Tab.Rapdis) 4 mg TRANSLINGU Q6H PRN PRN Reason: Nausea and Vomiting Potassium Phos/Sodium Phos (Sodium,Potassium Phosphates Powd.Pack) 1 packet PO QID [facility] Last Admin: 06/27/23 16:48 Dose: 1 packet Quetiapine Fumarate (Quetiapine Fumarate 25 Mg Tablet) 25 mg PO BEDTIME [facility] Last Admin: 06/26/23 20:42 Dose: Not Given Tamsulosin HCl (Tamsulosin Hcl 0.4 Mg Capsule) 0.4 mg PO DAILY@1730 [facility] Last Admin: 06/27/23 16:49 Dose: 0.4 mg Thiamine HCl (Thiamine Hcl 100 Mg Tablet) 100 mg PO BID [facility] Last Admin: 06/27/23 09:36 Dose: 100 mg Vortioxetine (Vortioxetine Hydrobromide 5 Mg Tablet) 5 mg PO DAILY [facility] Last Admin: 06/27/23 09:36 Dose: 5 mg Allergies Allergies Allergy/AdvReac Type Severity Reaction Status Date / Time risperidone [From Risperdal] Allergy Intermediate UNKNOWN Verified 05/12/23 13:13 Sulfa (Sulfonamide Allergy Intermediate rash Verified 05/12/23 13:13 Antibiotics) From BENADRYL Allergy Intermediate DIZZY Uncoded 02/14/23 11:47 Assessment & Plan Assessment & Plan (1) Severe recurrent major depression w/psychotic features, mood-congruent: Status: Acute Code(s): F33.3 - Major depressive disorder, recurrent, severe with psychotic symptoms Plan Patient is severely depressed depressive psychotic symptoms thinking she is that God wants her labile mood thought disorganization scheduled for ECT in am has generally done well with ECT. 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 06/26/2023 Patient had ECT some confusion post ECT monitor for residual symptoms and clearing encourage food and fluids 06/27 continue current treatment plan Patient educated on: diagnosis and ECT Informed Consent: does not understand Reason for continued inpatient stay Substantial Risk for: inability to function Time Spent With Patient Time: Total time managing care of this patient today ____ minutes.
[2023-06-27 18:00] VITALS: BP 135/90; PULSE 97; RESP 16; TEMP 36.8; O2SAT 97
[2023-06-27] MEDS: Donepezil HCl 10 MG TABLET PO (21:05)
[2023-06-27] MEDS: QUEtiapine Fumarate 25 MG TABLET PO (21:06)
[2023-06-28 06:00] VITALS: BP 110/61; PULSE 100; RESP 18; TEMP 36.8; O2SAT 98
[2023-06-28] MEDS: Sodium,Potassium Phosphates POWD.PACK 1 PACKET PO ×4 (08:20→22:22)
[2023-06-28] MEDS: Cariprazine HCl 1.5 MG CAPSULE PO (08:20)
[2023-06-28] MEDS: Vortioxetine Hydrobromide 5 MG TABLET PO (08:20)
[2023-06-28] MEDS: Memantine HCl 5 MG TABLET PO ×2 (08:20→22:20)
[2023-06-28] MEDS: Thiamine HCL 100 MG TABLET PO ×2 (08:20→22:19)
[2023-06-28] MEDS: Lidocaine 4 % Patch ADH..PATCH 1 PATCH TRANSDERMA (08:20)
[2023-06-28] MEDS: Nystatin Cream 15 GM TUBE 1 APPL TOPICAL (09:35)
[2023-06-28] MEDS: Tamsulosin HCL 0.4 MG CAPSULE PO (16:35)
[2023-06-28 18:00] VITALS: BP 147/67; PULSE 110; RESP 16; TEMP 35.9; O2SAT 97
[2023-06-28] MEDS: Melatonin 3 MG TABLET 6 MG PO (22:20)
[2023-06-28] MEDS: QUEtiapine Fumarate 25 MG TABLET PO (22:21)
[2023-06-28] MEDS: Donepezil HCl 10 MG TABLET PO (22:21)
--- NOTE | 2023-06-28 23:55 | HO.PSYCHPN ---
Subjective Subjective Date of Service: 06/28/23 Reason For Visit: Severe depression with psychotic features Interim History: Met with patient; discussed with team Patient again lying in bed awake and alert. Patient did not eat dinner; refuses any PRNs. Records Officer broached the topic of ECT and she yes to continuing with it. Mental Status Exam Mental Status Exam Narrative: Pt is alert and oriented; behavior is cooperative, but with also some disorganization; calm; patient is not in distress; dressed in casual attire with unkempt hair but adequate hygiene; mood is described as withdrawn and affect congruent; eye contact appropriate; Speech is normal rate, volume and prosody and not pressured; some psychomotor retardation present; thought process confused; Thought content is on ECT; intermittent paranoid delusions; no expressed SI/HI. Patients insight and judgment impaired Diagnostics Vital Signs (24Hr): Vital Signs - 24 hr 06/28/23 06:00 06/28/23 18:00 Temperature 98.2 F 96.6 F L Pulse Rate 100 110 H Respiratory Rate 18 16 Blood Pressure 110/61 147/67 H Pulse Oximetry 98 97 Oxygen Delivery Method Room Air Room Air BMI result Body Mass Index 29.7 Medications Medications Current Medications Acetaminophen (Acetaminophen 325 Mg Tablet) 650 mg PO Q6H PRN PRN Reason: Headache/Pain Mild Scale (1-3) Last Admin: 06/27/23 00:19 Dose: 650 mg Al Hydroxide/Mg Hydroxide (Magnesium Hydrox/Alum Hydrox 30 Ml Oral.Susp) 30 ml PO Q6H PRN PRN Reason: Heartburn/Nausea Cariprazine (Cariprazine Hcl 1.5 Mg Capsule) 1.5 mg PO DAILY [facility] Last Admin: 06/28/23 08:20 Dose: 1.5 mg Clonidine (Clonidine 0.2 Mg Patch.Tdwk) 0.2 mg TRANSDERMA We@0900 [facility]; Protocol Docusate Sodium (Docusate Sodium 100 Mg Capsule) 100 mg PO DAILY PRN PRN Reason: Constipation Donepezil HCl (Donepezil Hcl 10 Mg Tablet) 10 mg PO BEDTIME [facility] Last Admin: 06/28/23 22:21 Dose: 10 mg Hydralazine HCl (Hydralazine Hcl 20 Mg/Ml Vial) 10 mg IVPUSH Q6H PRN; Protocol PRN Reason: SBP > 160 Hydroxyzine HCl (Hydroxyzine Hcl 25 Mg Tablet) 25 mg PO Q6H PRN PRN Reason: Anxiety Last Admin: 06/27/23 00:21 Dose: 25 mg Ibuprofen (Ibuprofen 200 Mg Tablet) 200 mg PO Q6H PRN PRN Reason: Pain, Moderate(Pain Scale 4-6) Last Admin: 06/27/23 00:20 Dose: 200 mg Lidocaine (Lidocaine 4 % Patch Adh..Patch) 1 patch TRANSDERMA DAILY [facility]; Protocol Last Admin: 06/28/23 08:20 Dose: 1 patch Lorazepam (Lorazepam 0.5 Mg Tablet) 0.5 mg PO Q4H PRN PRN Reason: Anxiety Last Admin: 06/27/23 21:04 Dose: 0.5 mg Magnesium Hydroxide (Milk Of Magnesia 30 Ml Oral.Susp) 30 ml PO DAILY PRN PRN Reason: Constipation Melatonin (Melatonin 3 Mg Tablet) 6 mg PO BEDTIME PRN PRN Reason: Insomnia Last Admin: 06/28/23 22:20 Dose: 6 mg Memantine (Memantine Hcl 5 Mg Tablet) 5 mg PO BID [facility] Last Admin: 06/28/23 22:20 Dose: 5 mg Nystatin (Nystatin Cream 15 Gm Tube) 1 appl TOPICAL BID [facility]; Protocol Last Admin: 06/28/23 22:23 Dose: Not Given Ondansetron HCl (Ondansetron Odt 4 Mg Tab.Rapdis) 4 mg TRANSLINGU Q6H PRN PRN Reason: Nausea and Vomiting Potassium Phos/Sodium Phos (Sodium,Potassium Phosphates Powd.Pack) 1 packet PO QID [facility] Last Admin: 06/28/23 22:22 Dose: 1 packet Quetiapine Fumarate (Quetiapine Fumarate 25 Mg Tablet) 25 mg PO BEDTIME [facility] Last Admin: 06/28/23 22:21 Dose: 25 mg Tamsulosin HCl (Tamsulosin Hcl 0.4 Mg Capsule) 0.4 mg PO DAILY@1730 [facility] Last Admin: 06/28/23 16:35 Dose: 0.4 mg Thiamine HCl (Thiamine Hcl 100 Mg Tablet) 100 mg PO BID [facility] Last Admin: 06/28/23 22:19 Dose: 100 mg Vortioxetine (Vortioxetine Hydrobromide 5 Mg Tablet) 5 mg PO DAILY [facility] Last Admin: 06/28/23 08:20 Dose: 5 mg Allergies Allergies Allergy/AdvReac Type Severity Reaction Status Date / Time risperidone [From Risperdal] Allergy Intermediate UNKNOWN Verified 05/12/23 13:13 Sulfa (Sulfonamide Allergy Intermediate rash Verified 05/12/23 13:13 Antibiotics) From BENADRYL Allergy Intermediate DIZZY Uncoded 02/14/23 11:47 Assessment & Plan Assessment & Plan (1) Severe recurrent major depression w/psychotic features, mood-congruent: Status: Acute Code(s): F33.3 - Major depressive disorder, recurrent, severe with psychotic symptoms Plan Patient is severely depressed depressive psychotic symptoms thinking she is that God wants her labile mood thought disorganization scheduled for ECT in am has generally done well with ECT. 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 06/26/2023 Patient had ECT some confusion post ECT monitor for residual symptoms and clearing encourage food and fluids 06/27 continue current treatment plan 06/28 continue current treatment plan; ECT scheduled for Thursday Patient educated on: diagnosis and ECT Informed Consent: does not understand Reason for continued inpatient stay Substantial Risk for: inability to function Time Spent With Patient Time: Total time managing care of this patient today ____ minutes.
[2023-06-29 06:00] VITALS: BP 141/69; PULSE 96; RESP 16; TEMP 36.2; O2SAT 96
--- NOTE | 2023-06-29 06:25 | PC.NURSE ---
pt exited room in agitated state stating i m not going to ect . i will fight and fight . give me some water i'm not going . plan 1. pt returned to room after assurance that dr cardenas would be called 2. pt kept npo 3. newspaper photojournalist brionna issa notified of developing situation 4. pacu will contact dr cardenas and will get back to [facility] on how to proceed khari issa newspaper photojournalist returned call and procedure to be held today per dr cardenas.
--- NOTE | 2023-06-29 06:55 | MHC.SHP ---
Pre-Procedural Eval Section A Date of Service: 06/29/23 The patient is an INPATIENT: Yes Changes since office visit: No Cold of Flu in the past 2 weeks, No New Medical Problems, No Changes in Medication and No Patient answered all questions The History & Physical has been completed within 30 days and I have reviewed it.: Yes Section B Chief Complaint: Severe depression with psychotic features Allergies: Allergies Allergy/AdvReac Type Severity Reaction Status Date / Time risperidone [From Risperdal] Allergy Intermediate UNKNOWN Verified 05/12/23 13:13 Sulfa (Sulfonamide Allergy Intermediate rash Verified 05/12/23 13:13 Antibiotics) From BENADRYL Allergy Intermediate DIZZY Uncoded 02/14/23 11:47 Plan I have reviewed the history and physical and performed a pertinent physical examination on my patient. No changes have occurred unless specified. Time Spent With Patient Time: Total time managing care of this patient today ____ minutes.
--- NOTE | 2023-06-29 06:56 | HO.ECTPROC ---
ECT Procedure Note Diagnosis/Treatment Date of Service: 06/29/23 Diagnosis: Major Depressive Disorder Previous ECT Date: 06/26/23 Current Treatment Number: 2 Treatment: Series Interval Clinical Notes: The patient had a court order for ECT due to resistant depression. No complications with the first ECT court order, she was delirious post procedure and Dr. Willett suggested to lower the percentage of energy. ECT done without complications Time: Total time managing care of this patient today _30___ minutes. ECT Settings Device: THYMATRON DGx Electrode Placement: Right Unilateral Program/Pulse Width: 0.25 Energy Percent: 25 Medications Administration General Anesthetic: Etomidate (10) Muscle Relaxant: Succinylcholine (80) Ancillary Medications Miscillaneous Medications: Propofol Airway Management Airway Management: Bag Mask Ventilation Treatment Recommendations No Changes Recommended: No change Pt Tolerated Procedure w/o Issue: Yes
[2023-06-29] MEDS: Lidocaine 4 % Patch ADH..PATCH 1 PATCH TRANSDERMA (09:23)
[2023-06-29] MEDS: Memantine HCl 5 MG TABLET PO ×2 (09:23→19:57)
[2023-06-29] MEDS: Vortioxetine Hydrobromide 5 MG TABLET PO (09:23)
[2023-06-29] MEDS: Sodium,Potassium Phosphates POWD.PACK 1 PACKET PO ×4 (09:23→19:56)
[2023-06-29] MEDS: Thiamine HCL 100 MG TABLET PO ×2 (09:23→19:57)
[2023-06-29] MEDS: Cariprazine HCl 1.5 MG CAPSULE PO (09:23)
[2023-06-29 11:20] LABS: COVID-19 Test Invalid (Negative); IDNOW Serial# 152EDE1D
[2023-06-29 12:10] LABS: COVID-19 Test Negative (Negative); IDNOW Serial# 152EDE1D
--- NOTE | 2023-06-29 15:54 | P.PNPSI_ITS ---
Subjective Subjective Date of Service: 06/29/23 Reason For Visit: Severe depression with psychotic features Subjective Notes: Section 8 Interim History: Patient seen psychiatric follow-up patient did not receive ECT today. Patient has a flores range of affect to some degree less confused needs much encouragement to eat passive mostly withdrawn depressed Mental Status Exam Mental Status Exam Narrative: Patient is seen in her room she is somewhat disheveled looks perplexed improvement in oral facial dyskinesia mood depressed anxious apprehensive. 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 easily distracted internally preoccupied Diagnostics Vital Signs (24Hr): Vital Signs - 24 hr 06/28/23 18:00 06/29/23 06:00 Temperature 96.6 F L 97.1 F Pulse Rate 110 H 96 Respiratory Rate 16 16 Blood Pressure 147/67 H 141/69 H Pulse Oximetry 97 96 Oxygen Delivery Method Room Air Room Air BMI result Body Mass Index 29.7 Labs Labs: Laboratory Results - last 48 hr 06/29/23 06/29/23 10:40 11:30 COVID-19 ([facility]) Invalid Negative COVID-19 Clin Com See Note See Note Medications Medications Current Medications Acetaminophen (Acetaminophen 325 Mg Tablet) 650 mg PO Q6H PRN PRN Reason: Headache/Pain Mild Scale (1-3) Last Admin: 06/27/23 00:19 Dose: 650 mg Al Hydroxide/Mg Hydroxide (Magnesium Hydrox/Alum Hydrox 30 Ml Oral.Susp) 30 ml PO Q6H PRN PRN Reason: Heartburn/Nausea Cariprazine (Cariprazine Hcl 1.5 Mg Capsule) 1.5 mg PO DAILY [facility] Last Admin: 06/29/23 09:23 Dose: 1.5 mg Clonidine (Clonidine 0.2 Mg Patch.Tdwk) 0.2 mg TRANSDERMA We@0900 [facility]; Protocol Docusate Sodium (Docusate Sodium 100 Mg Capsule) 100 mg PO DAILY PRN PRN Reason: Constipation Donepezil HCl (Donepezil Hcl 10 Mg Tablet) 10 mg PO BEDTIME [facility] Last Admin: 06/28/23 22:21 Dose: 10 mg Hydralazine HCl (Hydralazine Hcl 20 Mg/Ml Vial) 10 mg IVPUSH Q6H PRN; Protocol PRN Reason: SBP > 160 Hydroxyzine HCl (Hydroxyzine Hcl 25 Mg Tablet) 25 mg PO Q6H PRN PRN Reason: Anxiety Last Admin: 06/27/23 00:21 Dose: 25 mg Ibuprofen (Ibuprofen 200 Mg Tablet) 200 mg PO Q6H PRN PRN Reason: Pain, Moderate(Pain Scale 4-6) Last Admin: 06/27/23 00:20 Dose: 200 mg Lidocaine (Lidocaine 4 % Patch Adh..Patch) 1 patch TRANSDERMA DAILY [facility]; Protocol Last Admin: 06/29/23 09:23 Dose: 1 patch Lorazepam (Lorazepam 0.5 Mg Tablet) 0.5 mg PO Q4H PRN PRN Reason: Anxiety Last Admin: 06/27/23 21:04 Dose: 0.5 mg Magnesium Hydroxide (Milk Of Magnesia 30 Ml Oral.Susp) 30 ml PO DAILY PRN PRN Reason: Constipation Melatonin (Melatonin 3 Mg Tablet) 6 mg PO BEDTIME PRN PRN Reason: Insomnia Last Admin: 06/28/23 22:20 Dose: 6 mg Memantine (Memantine Hcl 5 Mg Tablet) 5 mg PO BID [facility] Last Admin: 06/29/23 09:23 Dose: 5 mg Nystatin (Nystatin Cream 15 Gm Tube) 1 appl TOPICAL BID [facility]; Protocol Last Admin: 06/29/23 10:04 Dose: Not Given Ondansetron HCl (Ondansetron Odt 4 Mg Tab.Rapdis) 4 mg TRANSLINGU Q6H PRN PRN Reason: Nausea and Vomiting Potassium Phos/Sodium Phos (Sodium,Potassium Phosphates Powd.Pack) 1 packet PO QID [facility] Last Admin: 06/29/23 12:12 Dose: 1 packet Quetiapine Fumarate (Quetiapine Fumarate 25 Mg Tablet) 25 mg PO BEDTIME [facility] Last Admin: 06/28/23 22:21 Dose: 25 mg Tamsulosin HCl (Tamsulosin Hcl 0.4 Mg Capsule) 0.4 mg PO DAILY@1730 [facility] Last Admin: 06/28/23 16:35 Dose: 0.4 mg Thiamine HCl (Thiamine Hcl 100 Mg Tablet) 100 mg PO BID [facility] Last Admin: 06/29/23 09:23 Dose: 100 mg Vortioxetine (Vortioxetine Hydrobromide 5 Mg Tablet) 5 mg PO DAILY [facility] Last Admin: 01/22/24 09:23 Dose: 5 mg Allergies Allergies Allergy/AdvReac Type Severity Reaction Status Date / Time risperidone [From Risperdal] Allergy Intermediate UNKNOWN Verified 05/12/23 13:13 Sulfa (Sulfonamide Allergy Intermediate rash Verified 05/12/23 13:13 Antibiotics) From BENADRYL Allergy Intermediate DIZZY Uncoded 02/14/23 11:47 Assessment & Plan Assessment & Plan (1) Severe recurrent major depression w/psychotic features, mood-congruent: Status: Acute Code(s): F33.3 - Major depressive disorder, recurrent, severe with psychotic symptoms Plan Patient is severely depressed depressive psychotic symptoms thinking she is that God wants her labile mood thought disorganization scheduled for ECT in am has generally done well with ECT. 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 06/26/2023 Continue to encourage ECT Namenda Aricept restarted on Vraylar 1.5 mg encourage food and fluid Reason for continued inpatient stay Substantial Risk for: inability to function, rapid decompensation and med/psych decompensation Time Spent With Patient Time: Total time managing care of this patient today ____ minutes.
[2023-06-29] MEDS: Tamsulosin HCL 0.4 MG CAPSULE PO (17:58)
[2023-06-29] MEDS: Donepezil HCl 10 MG TABLET PO (19:57)
[2023-06-29] MEDS: QUEtiapine Fumarate 25 MG TABLET PO (19:57)
[2023-06-29 20:09] VITALS: BP 117/71; PULSE 88; RESP 16; TEMP 36.9; O2SAT 95
[2023-06-30 09:55] VITALS: BP 97/68; PULSE 106; RESP 18; TEMP 36.6; O2SAT 94
[2023-06-30] MEDS: Sodium,Potassium Phosphates POWD.PACK 1 PACKET PO ×3 (09:58→19:58)
[2023-06-30] MEDS: Memantine HCl 5 MG TABLET PO ×2 (09:59→19:58)
[2023-06-30] MEDS: Vortioxetine Hydrobromide 5 MG TABLET PO (09:59)
[2023-06-30] MEDS: Thiamine HCL 100 MG TABLET PO ×2 (09:59→19:58)
[2023-06-30] MEDS: Cariprazine HCl 1.5 MG CAPSULE PO (09:59)
[2023-06-30] MEDS: Lidocaine 4 % Patch ADH..PATCH 1 PATCH TRANSDERMA (09:59)
[2023-06-30] MEDS: Tamsulosin HCL 0.4 MG CAPSULE PO (16:47)
[2023-06-30] MEDS: QUEtiapine Fumarate 25 MG TABLET PO (19:58)
[2023-06-30] MEDS: Donepezil HCl 10 MG TABLET PO (19:58)
[2023-06-30 20:26] VITALS: BP 131/70; PULSE 98; RESP 16; TEMP 36.6; O2SAT 93
--- NOTE | 2023-06-30 20:37 | P.PNPSI_ITS ---
Subjective Subjective Date of Service: 06/30/23 Reason For Visit: Severe depression with psychotic features Subjective Notes: Section 8 Interim History: Patient is depressed withdrawn need encouragement to get out of her room and to eat ECT scheduled for had missed 06/29/2023 ECT Patient has done well with ECT previously Medication Compliance: Intermittent Attending Groups: No Review of Systems Acute medical concerns: No Mental Status Exam Mental Status Exam Narrative: Pt is alert and oriented; behavior is cooperative, but with also some disorganization; calm; patient is not in distress; dressed in casual attire with unkempt hair but adequate hygiene; mood is described as depressedand affect congruent blunted; eye contact appropriate; Speech slowed, volume and prosody and not pressured; some psychomotor retardation present; thought process confused; Thought content is on ECT; intermittent paranoid delusions; no expressed SI/HI. Patients insight and judgment impaired Diagnostics Vital Signs (24Hr): Vital Signs - 24 hr 06/30/23 09:55 06/30/23 20:26 Temperature 97.8 F 98 F Pulse Rate 106 H 98 Respiratory Rate 18 16 Blood Pressure 97/68 131/70 Pulse Oximetry 94 93 Oxygen Delivery Method Room Air Room Air BMI result Body Mass Index 29.7 Labs Labs: Laboratory Results - last 48 hr 06/29/23 06/29/23 10:40 11:30 COVID-19 ([facility]) Invalid Negative COVID-19 Clin Com See Note See Note Medications Medications Current Medications Acetaminophen (Acetaminophen 325 Mg Tablet) 650 mg PO Q6H PRN PRN Reason: Headache/Pain Mild Scale (1-3) Last Admin: 06/27/23 00:19 Dose: 650 mg Al Hydroxide/Mg Hydroxide (Magnesium Hydrox/Alum Hydrox 30 Ml Oral.Susp) 30 ml PO Q6H PRN PRN Reason: Heartburn/Nausea Cariprazine (Cariprazine Hcl 1.5 Mg Capsule) 1.5 mg PO DAILY [facility] Last Admin: 06/30/23 09:59 Dose: 1.5 mg Clonidine (Clonidine 0.2 Mg Patch.Tdwk) 0.2 mg TRANSDERMA We@0900 [facility]; Protocol Docusate Sodium (Docusate Sodium 100 Mg Capsule) 100 mg PO DAILY PRN PRN Reason: Constipation Donepezil HCl (Donepezil Hcl 10 Mg Tablet) 10 mg PO BEDTIME [facility] Last Admin: 06/30/23 19:58 Dose: 10 mg Hydralazine HCl (Hydralazine Hcl 20 Mg/Ml Vial) 10 mg IVPUSH Q6H PRN; Protocol PRN Reason: SBP > 160 Hydroxyzine HCl (Hydroxyzine Hcl 25 Mg Tablet) 25 mg PO Q6H PRN PRN Reason: Anxiety Last Admin: 06/27/23 00:21 Dose: 25 mg Ibuprofen (Ibuprofen 200 Mg Tablet) 200 mg PO Q6H PRN PRN Reason: Pain, Moderate(Pain Scale 4-6) Last Admin: 06/27/23 00:20 Dose: 200 mg Lidocaine (Lidocaine 4 % Patch Adh..Patch) 1 patch TRANSDERMA DAILY [facility]; Protocol Last Admin: 06/30/23 09:59 Dose: 1 patch Lorazepam (Lorazepam 0.5 Mg Tablet) 0.5 mg PO Q4H PRN PRN Reason: Anxiety Last Admin: 06/27/23 21:04 Dose: 0.5 mg Magnesium Hydroxide (Milk Of Magnesia 30 Ml Oral.Susp) 30 ml PO DAILY PRN PRN Reason: Constipation Melatonin (Melatonin 3 Mg Tablet) 6 mg PO BEDTIME PRN PRN Reason: Insomnia Last Admin: 06/28/23 22:20 Dose: 6 mg Memantine (Memantine Hcl 5 Mg Tablet) 5 mg PO BID [facility] Last Admin: 06/30/23 19:58 Dose: 5 mg Nystatin (Nystatin Cream 15 Gm Tube) 1 appl TOPICAL BID [facility]; Protocol Last Admin: 06/30/23 20:01 Dose: Not Given Ondansetron HCl (Ondansetron Odt 4 Mg Tab.Rapdis) 4 mg TRANSLINGU Q6H PRN PRN Reason: Nausea and Vomiting Potassium Phos/Sodium Phos (Sodium,Potassium Phosphates Powd.Pack) 1 packet PO QID [facility] Last Admin: 06/30/23 19:58 Dose: 1 packet Quetiapine Fumarate (Quetiapine Fumarate 25 Mg Tablet) 25 mg PO BEDTIME [facility] Last Admin: 06/30/23 19:58 Dose: 25 mg Tamsulosin HCl (Tamsulosin Hcl 0.4 Mg Capsule) 0.4 mg PO DAILY@1730 [facility] Last Admin: 06/30/23 16:47 Dose: 0.4 mg Thiamine HCl (Thiamine Hcl 100 Mg Tablet) 100 mg PO BID [facility] Last Admin: 06/30/23 19:58 Dose: 100 mg Vortioxetine (Vortioxetine Hydrobromide 5 Mg Tablet) 5 mg PO DAILY [facility] Last Admin: 06/30/23 09:59 Dose: 5 mg Allergies Allergies Allergy/AdvReac Type Severity Reaction Status Date / Time risperidone [From Risperdal] Allergy Intermediate UNKNOWN Verified 05/12/23 13:13 Sulfa (Sulfonamide Allergy Intermediate rash Verified 05/12/23 13:13 Antibiotics) From BENADRYL Allergy Intermediate DIZZY Uncoded 02/14/23 11:47 Assessment & Plan Assessment & Plan (1) Severe recurrent major depression w/psychotic features, mood-congruent: Status: Acute Code(s): F33.3 - Major depressive disorder, recurrent, severe with psychotic symptoms Plan Patient is severely depressed depressive psychotic symptoms thinking she is that God wants her labile mood thought disorganization scheduled for ECT in am has generally done well with ECT. 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 06/26/2023 Patient had ECT some confusion post ECT monitor for residual symptoms and clearing encourage food and fluids 06/27 continue current treatment plan 06/28 continue current treatment plan; ECT scheduled for Thursday06/30/2023 Patient remains severely depressed had missed doses of Namenda and Aricept which may have worsened confusion has been restarted encourage continue medication acceptance scheduled for unilateral ECT tomorrow has generally done well with ECT in the past Informed Consent: does not understand and further education needed Reason for continued inpatient stay Substantial Risk for: inability to function, rapid decompensation and med/psych decompensation Time Spent With Patient Time: Total time managing care of this patient today _20___ minutes.
[2023-07-01] VITALS (10 sets, daily range): BP systolic 118–155; BP diastolic 58–81; PULSE 62–122; RESP 16–18; TEMP 36.4–36.9; O2SAT 94–100; BMI 29.7
--- NOTE | 2023-07-01 08:17 | P.CONAN_ITS ---
[facility] Active Problems Active Problems: All Active Problems (Updated 06/22/23 @ 00:01 by Tasha Loyola) Psychotic depression (Acute) Urinary retention (Acute) Hypokalemia (Acute) Dementia (Acute) Severe recurrent major depression w/psychotic features, mood-congruent (Acute) LAYO (acute kidney injury) (Acute) Lactic acidosis (Acute) Altered mental status (Acute) Major depressive disorder, recurrent severe without psychotic features (Acute) Major depression, recurrent, full remission (Acute) Insomnia (Acute) POONAM (generalized anxiety disorder) (Acute) Hypothyroidism (Acute) Multinodular thyroid (Acute) Vitamin D deficiency (Acute) Osteoporosis (Acute) Past Medical History Medical History Dementia Severe recurrent major depression w/psychotic features, mood-congruent Has daytime drowsiness Nocturnal hypoxia Preoperative examination Elevated glucose Screening for colon cancer Screening for diabetes mellitus Obesity (BMI 30-39.9) Confused but orients easily Depression, major, severe recurrence Abnormal serum protein electrophoresis Mild recurrent major depression Anxiety and depression Encounter for Medicare annual wellness exam Removal of nell Depression with anxiety Abdominal distention Weight gain Major depression, recurrent, full remission POONAM (generalized anxiety disorder) Hypothyroidism Hyperparathyroidism Multinodular thyroid Vitamin D deficiency Osteoporosis Family History Family History Father Myocardial infarction CVD (cardiovascular disease) Mother Dementia Alzheimer disease Other Mental health disorder Family history of problems with anesthesia: No Surgical History Surgical History Hx of colonoscopy Hx of kyphoplasty Hx of section History of Problems with Anesthesia: No Social History Social History Household Members: Spouse Housing: House Do you presently have visiting nurse or other home services: Yes Alcohol intake: never Comment: 1:1 sitter at bedside Patient Tobacco Use Status: Never used Tobacco e-Cigarette/Vaping Use: Never Used Second Hand Smoke Exposure: No service: No Current occupational status: unemployed Sexual orientation: Straight/Heterosexual Cognitive needs: No Hearing needs: No Meds Allergies Allergy/AdvReac Type Severity Reaction Status Date / Time risperidone [From Risperdal] Allergy Intermediate UNKNOWN Verified 05/12/23 13:13 Sulfa (Sulfonamide Allergy Intermediate rash Verified 05/12/23 13:13 Antibiotics) From BENADRYL Allergy Intermediate DIZZY Uncoded 02/14/23 11:47 Active Medications: Current Medications Acetaminophen (Acetaminophen 325 Mg Tablet) 650 mg PO Q6H PRN PRN Reason: Headache/Pain Mild Scale (1-3) Last Admin: 06/27/23 00:19 Dose: 650 mg Al Hydroxide/Mg Hydroxide (Magnesium Hydrox/Alum Hydrox 30 Ml Oral.Susp) 30 ml PO Q6H PRN PRN Reason: Heartburn/Nausea Cariprazine (Cariprazine Hcl 1.5 Mg Capsule) 1.5 mg PO DAILY [facility] Last Admin: 06/30/23 09:59 Dose: 1.5 mg Clonidine (Clonidine 0.2 Mg Patch.Tdwk) 0.2 mg TRANSDERMA We@0900 [facility]; Protocol Docusate Sodium (Docusate Sodium 100 Mg Capsule) 100 mg PO DAILY PRN PRN Reason: Constipation Donepezil HCl (Donepezil Hcl 10 Mg Tablet) 10 mg PO BEDTIME [facility]ARRY Last Admin: 06/30/23 19:58 Dose: 10 mg Hydralazine HCl (Hydralazine Hcl 20 Mg/Ml Vial) 10 mg IVPUSH Q6H PRN; Protocol PRN Reason: SBP > 160 Hydroxyzine HCl (Hydroxyzine Hcl 25 Mg Tablet) 25 mg PO Q6H PRN PRN Reason: Anxiety Last Admin: 06/27/23 00:21 Dose: 25 mg Ibuprofen (Ibuprofen 200 Mg Tablet) 200 mg PO Q6H PRN PRN Reason: Pain, Moderate(Pain Scale 4-6) Last Admin: 06/27/23 00:20 Dose: 200 mg Lidocaine (Lidocaine 4 % Patch Adh..Patch) 1 patch TRANSDERMA DAILY [facility]; Protocol Last Admin: 06/30/23 09:59 Dose: 1 patch Lorazepam (Lorazepam 0.5 Mg Tablet) 0.5 mg PO Q4H PRN PRN Reason: Anxiety Last Admin: 06/27/23 21:04 Dose: 0.5 mg Magnesium Hydroxide (Milk Of Magnesia 30 Ml Oral.Susp) 30 ml PO DAILY PRN PRN Reason: Constipation Melatonin (Melatonin 3 Mg Tablet) 6 mg PO BEDTIME PRN PRN Reason: Insomnia Last Admin: 06/28/23 22:20 Dose: 6 mg Memantine (Memantine Hcl 5 Mg Tablet) 5 mg PO BID [facility] Last Admin: 06/30/23 19:58 Dose: 5 mg Nystatin (Nystatin Cream 15 Gm Tube) 1 appl TOPICAL BID [facility]; Protocol Last Admin: 06/30/23 20:01 Dose: Not Given Ondansetron HCl (Ondansetron Odt 4 Mg Tab.Rapdis) 4 mg TRANSLINGU Q6H PRN PRN Reason: Nausea and Vomiting Potassium Phos/Sodium Phos (Sodium,Potassium Phosphates Powd.Pack) 1 packet PO QID [facility] Last Admin: 06/30/23 19:58 Dose: 1 packet Quetiapine Fumarate (Quetiapine Fumarate 25 Mg Tablet) 25 mg PO BEDTIME [facility] Last Admin: 06/30/23 19:58 Dose: 25 mg Tamsulosin HCl (Tamsulosin Hcl 0.4 Mg Capsule) 0.4 mg PO DAILY@1730 [facility] Last Admin: 06/30/23 16:47 Dose: 0.4 mg Thiamine HCl (Thiamine Hcl 100 Mg Tablet) 100 mg PO BID [facility] Last Admin: 06/30/23 19:58 Dose: 100 mg Vortioxetine (Vortioxetine Hydrobromide 5 Mg Tablet) 5 mg PO DAILY [facility] Last Admin: 06/30/23 09:59 Dose: 5 mg Home Medications Medication Instructions Recorded Confirmed Last Taken Type doxepin 25 mg capsule 50 mg PO BEDTIME 06/15/23 06/29/23 Unknown History lumateperone 21 mg capsule 21 mg PO DAILY@1700 06/15/23 06/29/23 Unknown History memantine 5 mg tablet 10 mg PO BID 06/15/23 06/29/23 Unknown History Exam Height,Weight and Vital Signs: Height 5 ft Weight 69.1 kg Last Vital Signs Temp 98.2 F 07/01/23 07:22 Pulse 110 H 07/01/23 07:22 Resp 16 07/01/23 07:22 BP 128/81 07/01/23 07:22 Pulse Ox 94 07/01/23 07:22 O2 Del Method Room Air 07/01/23 07:22 O2 Flow Rate 97 06/27/23 18:00 Pertinent Lab Results Pertinent Lab Results: Laboratory Tests 06/25/23 06/29/23 06/29/23 10:35 10:40 11:30 COVID-19 (EMILIANA) Negative Invalid Negative COVID-19 Clin Com See Note See Note See Note Airway Mallampati Class: II TM Dist: >3cm Neck ROM: Full Denture: Upper Heart: rrr Lungs: cta Assessment and Plan Assessment Anesthesia Assessment: Anesthesia Plan Discussed and Chart Reviewed Final Anesthetic Review Family History of Problems with Anesthesia: No History of Problems with Anesthesia: No NPO: Yes ASA Class: III Final Preanesthetic Review: No Changes in Pt Med Stat, Meds/Allgs Chart Reviewed and Consent Obtained/Reviewed Patient Risk: Intermediate Procedure Risk: Intermediate Anesthetic Plan Anesthetic Plan: GA Disposition: Standard PACU
--- NOTE | 2023-07-01 08:38 | MHC.SHP ---
Pre-Procedural Eval Section A Date of Service: 07/01/23 Changes since office visit: Yes Changes in Medication and Yes Patient answered all questions; No Cold of Flu in the past 2 weeks and No New Medical Problems The History & Physical has been completed within 30 days and I have reviewed it.: Yes Section B Chief Complaint: Severe depression with psychotic features Allergies: Allergies Allergy/AdvReac Type Severity Reaction Status Date / Time risperidone [From Risperdal] Allergy Intermediate UNKNOWN Verified 05/12/23 13:13 Sulfa (Sulfonamide Allergy Intermediate rash Verified 05/12/23 13:13 Antibiotics) From BENADRYL Allergy Intermediate DIZZY Uncoded 02/14/23 11:47 Plan I have reviewed the history and physical and performed a pertinent physical examination on my patient. No changes have occurred unless specified. Time Spent With Patient Time: Total time managing care of this patient today ____ minutes.
--- NOTE | 2023-07-01 08:57 | HO.ECTPROC ---
ECT Procedure Note Diagnosis/Treatment Date of Service: 07/01/23 Diagnosis: Major Depressive Disorder Previous ECT Date: 06/26/23 Current Treatment Number: 2 Treatment: Series Interval Clinical Notes: Patient seems clear less depressed less agitated remains ruminating agreeable to ECT has been eating and drinking better Time: Total time managing care of this patient today _30___ minutes. ECT Settings Device: THYMATRON DGx Electrode Placement: Right Unilateral Program/Pulse Width: 0.25 Energy Percent: 40 Seizure Duration By EEG (in seconds): 60 Medications Administration General Anesthetic: Etomidate (10) Muscle Relaxant: Succinylcholine (80) Ancillary Medications Anti-emetics: Zofran - Pre ECT Miscillaneous Medications: Propofol (30) Airway Management Airway Management: Bag Mask Ventilation Treatment Recommendations Electrode Placement: Right Unilateral Program/Pulse Width: 0.25 Energy Percent: 30 Notes: Pt Tolerated Procedure w/o Issue: Yes
[2023-07-01] MEDS: Lidocaine 4 % Patch ADH..PATCH 1 PATCH TRANSDERMA (10:13)
[2023-07-01] MEDS: Vortioxetine Hydrobromide 5 MG TABLET PO (10:13)
[2023-07-01] MEDS: Cariprazine HCl 1.5 MG CAPSULE PO (10:13)
[2023-07-01] MEDS: Memantine HCl 5 MG TABLET PO ×2 (10:15→20:11)
[2023-07-01] MEDS: Sodium,Potassium Phosphates POWD.PACK 1 PACKET PO ×4 (10:15→20:10)
[2023-07-01] MEDS: Thiamine HCL 100 MG TABLET PO ×2 (10:15→20:11)
[2023-07-01 11:14] LABS: COVID-19 Test Negative (Negative); IDNOW Serial# 152EDE1D
[2023-07-01] MEDS: Nystatin Cream 15 GM TUBE 1 APPL TOPICAL (11:29)
[2023-07-01] MEDS: cloNIDine 0.2 MG PATCH.TDWK TRANSDERMA (11:30)
[2023-07-01] MEDS: Acetaminophen 325 MG TABLET 650 MG PO (15:22)
[2023-07-01] MEDS: Tamsulosin HCL 0.4 MG CAPSULE PO (17:37)
[2023-07-01] MEDS: Donepezil HCl 10 MG TABLET PO (20:11)
[2023-07-01] MEDS: Melatonin 3 MG TABLET 6 MG PO (20:11)
[2023-07-01] MEDS: QUEtiapine Fumarate 25 MG TABLET PO (20:11)
--- NOTE | 2023-07-01 21:31 | HO.PSYCHPN ---
Subjective Subjective Date of Service: 07/01/23 Reason For Visit: Severe depression with psychotic features Subjective Notes: Section 8 Interim History: Patient seems somewhat improved less depressed periods of anxiety needs reassurance has been more accepting of medication and food no active SI Mental Status Exam Mental Status Exam Narrative: Pt is alert and oriented; behavior is cooperative, but with also some disorganization; calm; patient is not in distress; dressed in casual attire with unkempt hair but adequate hygiene; mood is described as depressedand affect congruent blunted; eye contact appropriate; Speech slowed, volume and prosody and not pressured; some psychomotor retardation present; thought process confused; Thought content is on ECT; intermittent paranoia; no expressed SI/HI. Patients insight and judgment impaired but improving Diagnostics Vital Signs (24Hr): Vital Signs - 24 hr 07/01/23 05:42 07/01/23 07:22 07/01/23 08:55 Temperature 97.6 F 98.2 F 97.5 F Pulse Rate 102 H 110 H 67 Respiratory Rate 16 16 16 Blood Pressure 137/76 128/81 133/58 L Pulse Oximetry 96 94 100 Oxygen Delivery Method Room Air Nasal Cannula with ETCO2 Oxygen Flow Rate 2 07/01/23 09:00 07/01/23 09:05 07/01/23 09:10 Temperature Pulse Rate 62 120 H 117 H Respiratory Rate 16 16 16 Blood Pressure 133/58 L 155/73 H 144/76 H Pulse Oximetry 96 96 96 Oxygen Delivery Method Nasal Cannula with ETCO2 Nasal Cannula with ETCO2 Room Air Oxygen Flow Rate 2 2 07/01/23 09:25 07/01/23 10:00 07/01/23 13:30 Temperature 98.2 F 98.5 F 98.1 F Pulse Rate 112 H 122 H 97 Respiratory Rate 16 18 18 Blood Pressure 139/81 118/65 121/66 Pulse Oximetry 96 94 95 Oxygen Delivery Method Room Air Room Air Room Air Oxygen Flow Rate 07/01/23 19:48 Temperature 97.8 F Pulse Rate 94 Respiratory Rate 17 Blood Pressure 139/69 Pulse Oximetry 95 Oxygen Delivery Method Room Air Oxygen Flow Rate BMI result Body Mass Index 29.7 Labs Labs: Laboratory Results - last 48 hr 07/01/23 10:35 COVID-19 (EMILIANA) Negative COVID-19 Clin Com See Note Medications Medications Current Medications Acetaminophen (Acetaminophen 325 Mg Tablet) 650 mg PO Q6H PRN PRN Reason: Headache/Pain Mild Scale (1-3) Last Admin: 07/01/23 15:22 Dose: 650 mg Al Hydroxide/Mg Hydroxide (Magnesium Hydrox/Alum Hydrox 30 Ml Oral.Susp) 30 ml PO Q6H PRN PRN Reason: Heartburn/Nausea Cariprazine (Cariprazine Hcl 1.5 Mg Capsule) 1.5 mg PO DAILY [facility] Last Admin: 07/01/23 10:13 Dose: 1.5 mg Clonidine (Clonidine 0.2 Mg Patch.Tdwk) 0.2 mg TRANSDERMA We@0900 [facility]; Protocol Last Admin: 07/01/23 11:30 Dose: 0.2 mg Donepezil HCl (Donepezil Hcl 10 Mg Tablet) 10 mg PO BEDTIME [facility] Last Admin: 07/01/23 20:11 Dose: 10 mg Hydralazine HCl (Hydralazine Hcl 20 Mg/Ml Vial) 10 mg IVPUSH Q6H PRN; Protocol PRN Reason: SBP > 160 Ibuprofen (Ibuprofen 200 Mg Tablet) 200 mg PO Q6H PRN PRN Reason: Pain, Moderate(Pain Scale 4-6) Last Admin: 06/27/23 00:20 Dose: 200 mg Lidocaine (Lidocaine 4 % Patch Adh..Patch) 1 patch TRANSDERMA DAILY [facility]; Protocol Last Admin: 07/01/23 10:13 Dose: 1 patch Lorazepam (Lorazepam 0.5 Mg Tablet) 0.5 mg PO Q4H PRN PRN Reason: Anxiety Last Admin: 06/27/23 21:04 Dose: 0.5 mg Magnesium Hydroxide (Milk Of Magnesia 30 Ml Oral.Susp) 30 ml PO DAILY PRN PRN Reason: Constipation Melatonin (Melatonin 3 Mg Tablet) 6 mg PO BEDTIME PRN PRN Reason: Insomnia Last Admin: 07/01/23 20:11 Dose: 6 mg Memantine (Memantine Hcl 5 Mg Tablet) 5 mg PO BID [facility] Last Admin: 07/01/23 20:11 Dose: 5 mg Nystatin (Nystatin Cream 15 Gm Tube) 1 appl TOPICAL BID [facility]; Protocol Last Admin: 07/01/23 20:11 Dose: Not Given Potassium Phos/Sodium Phos (Sodium,Potassium Phosphates Powd.Pack) 1 packet PO QID [facility] Last Admin: 07/01/23 20:10 Dose: 1 packet Quetiapine Fumarate (Quetiapine Fumarate 25 Mg Tablet) 25 mg PO BEDTIME [facility] Last Admin: 07/01/23 20:11 Dose: 25 mg Tamsulosin HCl (Tamsulosin Hcl 0.4 Mg Capsule) 0.4 mg PO DAILY@1730 [facility] Last Admin: 07/01/23 17:37 Dose: 0.4 mg Thiamine HCl (Thiamine Hcl 100 Mg Tablet) 100 mg PO BID [facility] Last Admin: 07/01/23 20:11 Dose: 100 mg Vortioxetine (Vortioxetine Hydrobromide 5 Mg Tablet) 5 mg PO DAILY [facility] Last Admin: 07/01/23 10:13 Dose: 5 mg Allergies Allergies Allergy/AdvReac Type Severity Reaction Status Date / Time risperidone [From Risperdal] Allergy Intermediate UNKNOWN Verified 05/12/23 13:13 Sulfa (Sulfonamide Allergy Intermediate rash Verified 05/12/23 13:13 Antibiotics) From BENADRYL Allergy Intermediate DIZZY Uncoded 02/14/23 11:47 Assessment & Plan Assessment & Plan (1) Severe recurrent major depression w/psychotic features, mood-congruent: Status: Acute Code(s): F33.3 - Major depressive disorder, recurrent, severe with psychotic symptoms Plan Patient is severely depressed depressive psychotic symptoms thinking she is that God wants her labile mood thought disorganization scheduled for ECT in am has generally done well with ECT. 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 06/26/2023 Patient had ECT some confusion post ECT monitor for residual symptoms and clearing encourage food and fluids 06/27 continue current treatment plan 06/28 continue current treatment plan; ECT scheduled for Thursday06/30/2023 Patient remains severely depressed had missed doses of Namenda and Aricept which may have worsened confusion has been restarted encourage continue medication acceptance scheduled for unilateral ECT tomorrow has generally done well with ECT in the past 07/01/23 see ect note monitor for worsening delerium or confusion Reason for continued inpatient stay Substantial Risk for: inability to function, rapid decompensation and med/psych decompensation Time Spent With Patient Time: Total time managing care of this patient today ____ minutes.
[2023-07-02 09:35] VITALS: BP 151/69; PULSE 92; RESP 16; TEMP 36.8; O2SAT 95
[2023-07-02] MEDS: Memantine HCl 5 MG TABLET PO ×2 (09:36→19:56)
[2023-07-02] MEDS: Lidocaine 4 % Patch ADH..PATCH 1 PATCH TRANSDERMA (09:36)
[2023-07-02] MEDS: Cariprazine HCl 1.5 MG CAPSULE PO (09:36)
[2023-07-02] MEDS: Thiamine HCL 100 MG TABLET PO ×2 (09:36→19:55)
[2023-07-02] MEDS: Vortioxetine Hydrobromide 5 MG TABLET PO (09:36)
[2023-07-02] MEDS: Sodium,Potassium Phosphates POWD.PACK 1 PACKET PO ×3 (13:02→19:57)
[2023-07-02] MEDS: Tamsulosin HCL 0.4 MG CAPSULE PO (16:31)
[2023-07-02 19:51] VITALS: BP 125/59; PULSE 119; RESP 18; TEMP 36; O2SAT 95
[2023-07-02] MEDS: Donepezil HCl 10 MG TABLET PO (19:55)
[2023-07-02] MEDS: QUEtiapine Fumarate 25 MG TABLET PO (19:56)
--- NOTE | 2023-07-02 21:19 | HO.PSYCHPN ---
Subjective Subjective Date of Service: 07/02/23 Reason For Visit: Severe depression with psychotic features Subjective Notes: Section 8 Interim History: Patient more alert less depressed somewhat flat knows place home address year Seeming more like herself more alert encourage food and fluid Mental Status Exam Mental Status Exam Narrative: Pt is alert and oriented; behavior is cooperative, but with also some disorganization; calm; patient is not in distress; dressed in casual attire with unkempt hair but adequate hygiene; mood is described as depressedand affect congruent blunted; eye contact appropriate; Speech slowed, volume and prosody and not pressured; some psychomotor retardation present; thought process slowed more organized; Thought content is ongoing home; intermittent paranoia; no expressed SI/HI. Patients insight and judgment improving Diagnostics Vital Signs (24Hr): Vital Signs - 24 hr 07/02/23 09:35 07/02/23 19:51 Temperature 98.2 F 96.8 F Pulse Rate 92 119 H Respiratory Rate 16 18 Blood Pressure 151/69 H 125/59 L Pulse Oximetry 95 95 Oxygen Delivery Method Room Air Room Air BMI result Body Mass Index 29.7 Labs Labs: Laboratory Results - last 48 hr 07/01/23 10:35 COVID-19 ([facility]IL[facility]NA) Negative COVID-19 Clin Com See Note Medications Medications Current Medications Acetaminophen (Acetaminophen 325 Mg Tablet) 650 mg PO Q6H PRN PRN Reason: Headache/Pain Mild Scale (1-3) Last Admin: 07/01/23 15:22 Dose: 650 mg Al Hydroxide/Mg Hydroxide (Magnesium Hydrox/Alum Hydrox 30 Ml Oral.Susp) 30 ml PO Q6H PRN PRN Reason: Heartburn/Nausea Cariprazine (Cariprazine Hcl 1.5 Mg Capsule) 1.5 mg PO DAILY [facility] Last Admin: 07/02/23 09:36 Dose: 1.5 mg Clonidine (Clonidine 0.2 Mg Patch.Tdwk) 0.2 mg TRANSDERMA We@0900 [facility]; Protocol Last Admin: 07/01/23 11:30 Dose: 0.2 mg Donepezil HCl (Donepezil Hcl 10 Mg Tablet) 10 mg PO BEDTIME [facility] Last Admin: 07/02/23 19:55 Dose: 10 mg Hydralazine HCl (Hydralazine Hcl 20 Mg/Ml Vial) 10 mg IVPUSH Q6H PRN; Protocol PRN Reason: SBP > 160 Ibuprofen (Ibuprofen 200 Mg Tablet) 200 mg PO Q6H PRN PRN Reason: Pain, Moderate(Pain Scale 4-6) Last Admin: 06/27/23 00:20 Dose: 200 mg Lidocaine (Lidocaine 4 % Patch Adh..Patch) 1 patch TRANSDERMA DAILY [facility]; Protocol Last Admin: 07/02/23 09:36 Dose: 1 patch Lorazepam (Lorazepam 0.5 Mg Tablet) 0.5 mg PO Q4H PRN PRN Reason: Anxiety Last Admin: 06/27/23 21:04 Dose: 0.5 mg Magnesium Hydroxide (Milk Of Magnesia 30 Ml Oral.Susp) 30 ml PO DAILY PRN PRN Reason: Constipation Melatonin (Melatonin 3 Mg Tablet) 6 mg PO BEDTIME PRN PRN Reason: Insomnia Last Admin: 07/01/23 20:11 Dose: 6 mg Memantine (Memantine Hcl 5 Mg Tablet) 5 mg PO BID [facility] Last Admin: 07/02/23 19:56 Dose: 5 mg Nystatin (Nystatin Cream 15 Gm Tube) 1 appl TOPICAL BID [facility]; Protocol Last Admin: 07/02/23 20:10 Dose: Not Given Potassium Phos/Sodium Phos (Sodium,Potassium Phosphates Powd.Pack) 1 packet PO QID [facility] Last Admin: 07/02/23 19:57 Dose: 1 packet Quetiapine Fumarate (Quetiapine Fumarate 25 Mg Tablet) 25 mg PO BEDTIME [facility] Last Admin: 07/02/23 19:56 Dose: 25 mg Tamsulosin HCl (Tamsulosin Hcl 0.4 Mg Capsule) 0.4 mg PO DAILY@1730 [facility] Last Admin: 07/02/23 16:31 Dose: 0.4 mg Thiamine HCl (Thiamine Hcl 100 Mg Tablet) 100 mg PO BID [facility] Last Admin: 07/02/23 19:55 Dose: 100 mg Vortioxetine (Vortioxetine Hydrobromide 5 Mg Tablet) 5 mg PO DAILY [facility] Last Admin: 07/02/23 09:36 Dose: 5 mg Allergies Allergies Allergy/AdvReac Type Severity Reaction Status Date / Time risperidone [From Risperdal] Allergy Intermediate UNKNOWN Verified 05/12/23 13:13 Sulfa (Sulfonamide Allergy Intermediate rash Verified 05/12/23 13:13 Antibiotics) From BENADRYL Allergy Intermediate DIZZY Uncoded 02/14/23 11:47 Assessment & Plan Assessment & Plan (1) Severe recurrent major depression w/psychotic features, mood-congruent: Status: Acute Code(s): F33.3 - Major depressive disorder, recurrent, severe with psychotic symptoms Plan Patient is severely depressed depressive psychotic symptoms thinking she is that God wants her labile mood thought disorganization scheduled for ECT in am has generally done well with ECT. 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 06/26/2023 Patient had ECT some confusion post ECT monitor for residual symptoms and clearing encourage food and fluids 06/27 continue current treatment plan 06/28 continue current treatment plan; ECT scheduled for Thursday06/30/2023 Patient remains severely depressed had missed doses of Namenda and Aricept which may have worsened confusion has been restarted encourage continue medication acceptance scheduled for unilateral ECT tomorrow has generally done well with ECT in the past 07/01/23 see ect note monitor for worsening delerium or confusion 07/02/2023 Continue ECT discharge planning monitor for worsening confusion Reason for continued inpatient stay Substantial Risk for: inability to function and med/psych decompensation Time Spent With Patient Time: Total time managing care of this patient today ____ minutes.
[2023-07-03] VITALS (10 sets, daily range): BP systolic 119–173; BP diastolic 65–92; PULSE 79–123; RESP 15–20; TEMP 36.2–36.8; O2SAT 95–100
--- NOTE | 2023-07-03 07:22 | MHC.SHP ---
Pre-Procedural Eval Section A Date of Service: 07/03/23 The patient is an INPATIENT: Yes Changes since office visit: No Cold of Flu in the past 2 weeks, No New Medical Problems, No Changes in Medication and No Patient answered all questions The History & Physical has been completed within 30 days and I have reviewed it.: Yes Section B Chief Complaint: Severe depression with psychotic features Allergies: Allergies Allergy/AdvReac Type Severity Reaction Status Date / Time risperidone [From Risperdal] Allergy Intermediate UNKNOWN Verified 05/12/23 13:13 Sulfa (Sulfonamide Allergy Intermediate rash Verified 05/12/23 13:13 Antibiotics) From BENADRYL Allergy Intermediate DIZZY Uncoded 02/14/23 11:47 Plan I have reviewed the history and physical and performed a pertinent physical examination on my patient. No changes have occurred unless specified. Time Spent With Patient Time: Total time managing care of this patient today ____ minutes.
--- NOTE | 2023-07-03 08:34 | HO.ECTPROC ---
ECT Procedure Note Diagnosis/Treatment Date of Service: 07/03/23 Diagnosis: Major Depressive Disorder Previous ECT Date: 07/01/23 Current Treatment Number: 3 Treatment: Series Interval Clinical Notes: Patient seems clear less depressed less agitated remains ruminating agreeable to ECT has been eating and drinking better ongoing alert knows yr month address no adi e effects noted to this pt Time: Total time managing care of this patient today ____ minutes. ECT Settings Device: THYMATRON DGx Electrode Placement: Right Unilateral Program/Pulse Width: 0.25 Energy Percent: 40 Seizure Duration By EEG (in seconds): 40 Medications Administration General Anesthetic: Etomidate (10) Muscle Relaxant: Succinylcholine (80) Ancillary Medications Anti-emetics: Zofran - Pre ECT Miscillaneous Medications: Propofol (30) Airway Management Airway Management: Bag Mask Ventilation Treatment Recommendations Electrode Placement: Right Unilateral Program/Pulse Width: 0.25 Energy Percent: 30 Notes: Pt Tolerated Procedure w/o Issue: Yes
--- NOTE | 2023-07-03 08:41 | HO.ANESPROP2 ---
[facility] [place] Active Problems Active Problems: All Active Problems (Updated 07/02/23 @ 00:03 by Background Milla) Psychotic depression (Acute) Severe recurrent major depression w/psychotic features, mood-congruent (Acute) Major depressive disorder, recurrent severe without psychotic features (Acute) Major depression, recurrent, full remission (Acute) Insomnia (Acute) POONAM (generalized anxiety disorder) (Acute) Hypothyroidism (Acute) Multinodular thyroid (Acute) Vitamin D deficiency (Acute) Osteoporosis (Acute) Past Medical History Medical History Dementia Severe recurrent major depression w/psychotic features, mood-congruent Has daytime drowsiness Nocturnal hypoxia Preoperative examination Elevated glucose Screening for colon cancer Screening for diabetes mellitus Obesity (BMI 30-39.9) Confused but orients easily Depression, major, severe recurrence Abnormal serum protein electrophoresis Mild recurrent major depression Anxiety and depression Encounter for Medicare annual wellness exam Removal of nell Depression with anxiety Abdominal distention Weight gain Major depression, recurrent, full remission POONAM (generalized anxiety disorder) Hypothyroidism Hyperparathyroidism Multinodular thyroid Vitamin D deficiency Osteoporosis Family History Family History Father Myocardial infarction CVD (cardiovascular disease) Mother Dementia Alzheimer disease Other Mental health disorder Family history of problems with anesthesia: No Surgical History Surgical History Hx of colonoscopy Hx of kyphoplasty Hx of section History of Problems with Anesthesia: No Social History Social History Household Members: Spouse Housing: House Do you presently have visiting nurse or other home services: Yes Alcohol intake: never Comment: 1:1 sitter at bedside Patient Tobacco Use Status: Never used Tobacco e-Cigarette/Vaping Use: Never Used Second Hand Smoke Exposure: No service: No Current occupational status: unemployed Sexual orientation: Straight/Heterosexual Cognitive needs: No Hearing needs: No Meds Allergies Allergy/AdvReac Type Severity Reaction Status Date / Time risperidone [From Risperdal] Allergy Intermediate UNKNOWN Verified 05/12/23 13:13 Sulfa (Sulfonamide Allergy Intermediate rash Verified 05/12/23 13:13 Antibiotics) From BENADRYL Allergy Intermediate DIZZY Uncoded 02/14/23 11:47 Active Medications: Current Medications Acetaminophen (Acetaminophen 325 Mg Tablet) 650 mg PO Q6H PRN PRN Reason: Headache/Pain Mild Scale (1-3) Last Admin: 07/01/23 15:22 Dose: 650 mg Al Hydroxide/Mg Hydroxide (Magnesium Hydrox/Alum Hydrox 30 Ml Oral.Susp) 30 ml PO Q6H PRN PRN Reason: Heartburn/Nausea Cariprazine (Cariprazine Hcl 1.5 Mg Capsule) 1.5 mg PO DAILY [facility] Last Admin: 07/02/23 09:36 Dose: 1.5 mg Clonidine (Clonidine 0.2 Mg Patch.Tdwk) 0.2 mg TRANSDERMA We@0900 [facility]; Protocol Last Admin: 07/01/23 11:30 Dose: 0.2 mg Donepezil HCl (Donepezil Hcl 10 Mg Tablet) 10 mg PO BEDTIME [facility] Last Admin: 07/02/23 19:55 Dose: 10 mg Hydralazine HCl (Hydralazine Hcl 20 Mg/Ml Vial) 10 mg IVPUSH Q6H PRN; Protocol PRN Reason: SBP > 160 Lactated Ringer's (Lr) 1,000 mls @ 50 mls/hr IVCONT .Q20H BARRY Ibuprofen (Ibuprofen 200 Mg Tablet) 200 mg PO Q6H PRN PRN Reason: Pain, Moderate(Pain Scale 4-6) Last Admin: 06/27/23 00:20 Dose: 200 mg Lidocaine (Lidocaine 4 % Patch Adh..Patch) 1 patch TRANSDERMA DAILY [facility]; Protocol Last Admin: 07/02/23 09:36 Dose: 1 patch Lorazepam (Lorazepam 0.5 Mg Tablet) 0.5 mg PO Q4H PRN PRN Reason: Anxiety Last Admin: 06/27/23 21:04 Dose: 0.5 mg Magnesium Hydroxide (Milk Of Magnesia 30 Ml Oral.Susp) 30 ml PO DAILY PRN PRN Reason: Constipation Melatonin (Melatonin 3 Mg Tablet) 6 mg PO BEDTIME PRN PRN Reason: Insomnia Last Admin: 07/01/23 20:11 Dose: 6 mg Memantine (Memantine Hcl 5 Mg Tablet) 5 mg PO BID [facility] Last Admin: 07/02/23 19:56 Dose: 5 mg Potassium Phos/Sodium Phos (Sodium,Potassium Phosphates Powd.Pack) 1 packet PO QID [facility] Last Admin: 07/02/23 19:57 Dose: 1 packet Quetiapine Fumarate (Quetiapine Fumarate 25 Mg Tablet) 25 mg PO BEDTIME [facility] Last Admin: 07/02/23 19:56 Dose: 25 mg Tamsulosin HCl (Tamsulosin Hcl 0.4 Mg Capsule) 0.4 mg PO DAILY@1730 [facility] Last Admin: 07/02/23 16:31 Dose: 0.4 mg Thiamine HCl (Thiamine Hcl 100 Mg Tablet) 100 mg PO BID [facility] Last Admin: 07/02/23 19:55 Dose: 100 mg Vortioxetine (Vortioxetine Hydrobromide 5 Mg Tablet) 5 mg PO DAILY [facility] Last Admin: 07/02/23 09:36 Dose: 5 mg Home Medications Medication Instructions Recorded Confirmed Last Taken Type doxepin 25 mg capsule 50 mg PO BEDTIME 06/15/23 06/29/23 Unknown History lumateperone 21 mg capsule 21 mg PO DAILY@1700 06/15/23 06/29/23 Unknown History memantine 5 mg tablet 10 mg PO BID 06/15/23 06/29/23 Unknown History Exam Height,Weight and Vital Signs: Height 5 ft Weight 69.1 kg Last Vital Signs Temp 97.3 F 07/03/23 07:02 Pulse 102 H 07/03/23 07:02 Resp 20 07/03/23 07:02 BP 137/86 07/03/23 07:02 Pulse Ox 96 07/03/23 07:02 O2 Del Method Room Air 07/03/23 07:02 O2 Flow Rate 2 07/01/23 09:05 Pertinent Lab Results Pertinent Lab Results: Laboratory Tests 06/25/23 06/29/23 06/29/23 10:35 10:40 11:30 COVID-19 (EMILIANA) Negative Invalid Negative COVID-19 Clin Com See Note See Note See Note 07/01/23 10:35 COVID-19 (EMILIANA) Negative COVID-19 Clin Com See Note Airway Mallampati Class: II (edentulous on top) TM Dist: >3cm Neck ROM: Full Heart: rrr Lungs: cta Assessment and Plan Assessment Anesthesia Assessment: Anesthesia Plan Discussed and Chart Reviewed Final Anesthetic Review Family History of Problems with Anesthesia: No History of Problems with Anesthesia: No NPO: Yes ASA Class: III Final Preanesthetic Review: No Changes in Pt Med Stat, Meds/Allgs Chart Reviewed and Consent Obtained/Reviewed Patient Risk: Intermediate Procedure Risk: Intermediate Anesthetic Plan Anesthetic Plan: GA Disposition: Standard PACU
[2023-07-03] MEDS: Memantine HCl 5 MG TABLET PO ×2 (10:18→20:05)
[2023-07-03] MEDS: Sodium,Potassium Phosphates POWD.PACK 1 PACKET PO ×4 (10:18→20:05)
[2023-07-03] MEDS: Cariprazine HCl 1.5 MG CAPSULE PO (10:18)
[2023-07-03] MEDS: Vortioxetine Hydrobromide 5 MG TABLET PO (10:18)
[2023-07-03] MEDS: Thiamine HCL 100 MG TABLET PO ×2 (10:18→20:05)
[2023-07-03] MEDS: Lidocaine 4 % Patch ADH..PATCH 1 PATCH TRANSDERMA (10:19)
[2023-07-03] MEDS: Tamsulosin HCL 0.4 MG CAPSULE PO (16:36)
[2023-07-03] MEDS: QUEtiapine Fumarate 25 MG TABLET PO (20:05)
[2023-07-03] MEDS: Donepezil HCl 10 MG TABLET PO (20:05)
--- NOTE | 2023-07-03 22:52 | P.PNPSI_ITS ---
Subjective Subjective Date of Service: 07/07/23 Reason For Visit: Severe depression with psychotic features Subjective Notes: Section 8 Interim History: Patient seen in psychiatric follow-up her sensorium was clear alert was able to converse about possibility of discharge. She was able to taken different options discussed continuing ECT for tomorrow possibly trying to transition to outpatient treatment Medication Compliance: Yes Mental Status Exam Mental Status Exam Narrative: Casually dressed alert understands she is in the hospital that she is getting ECT knows year and month home address concrete improving judgment and impulsivity mood described as okay some lability no hallucinations delusional material Diagnostics Vital Signs (24Hr): Vital Signs - 24 hr 07/03/23 06:02 07/03/23 06:36 07/03/23 07:02 Temperature 97.3 F 97.3 F 97.3 F Pulse Rate 96 96 102 H Respiratory Rate 16 16 20 Blood Pressure 130/65 130/65 137/86 Pulse Oximetry 95 97 96 Oxygen Delivery Method Room Air Room Air Oxygen Flow Rate 07/03/23 08:51 07/03/23 08:56 07/03/23 09:01 Temperature 98.3 F Pulse Rate 79 121 H 123 H Respiratory Rate 16 16 16 Blood Pressure 173/81 H 155/92 H 155/92 H Pulse Oximetry 100 96 97 Oxygen Delivery Method Nasal Cannula with ETCO2 Nasal Cannula with ETCO2 Nasal Cannula with ETCO2 Oxygen Flow Rate 2 2 2 07/03/23 09:06 07/03/23 09:21 07/03/23 10:17 Temperature 98.3 F 97.1 F Pulse Rate 113 H 107 H 89 Respiratory Rate 16 16 15 Blood Pressure 164/82 H 119/71 140/69 H Pulse Oximetry 97 97 95 Oxygen Delivery Method Nasal Cannula with ETCO2 Room Air Room Air Oxygen Flow Rate 2 07/03/23 19:35 Temperature 97.4 F Pulse Rate 98 Respiratory Rate 16 Blood Pressure 150/84 H Pulse Oximetry 96 Oxygen Delivery Method Room Air Oxygen Flow Rate BMI result Body Mass Index 29.7 Medications Medications Current Medications Acetaminophen (Acetaminophen 325 Mg Tablet) 650 mg PO Q6H PRN PRN Reason: Headache/Pain Mild Scale (1-3) Last Admin: 07/01/23 15:22 Dose: 650 mg Al Hydroxide/Mg Hydroxide (Magnesium Hydrox/Alum Hydrox 30 Ml Oral.Susp) 30 ml PO Q6H PRN PRN Reason: Heartburn/Nausea Cariprazine (Cariprazine Hcl 1.5 Mg Capsule) 1.5 mg PO DAILY [facility] Last Admin: 07/03/23 10:18 Dose: 1.5 mg Clonidine (Clonidine 0.2 Mg Patch.Tdwk) 0.2 mg TRANSDERMA We@0900 [facility]; Protocol Last Admin: 07/01/23 11:30 Dose: 0.2 mg Donepezil HCl (Donepezil Hcl 10 Mg Tablet) 10 mg PO BEDTIME [facility] Last Admin: 07/03/23 20:05 Dose: 10 mg Hydralazine HCl (Hydralazine Hcl 20 Mg/Ml Vial) 10 mg IVPUSH Q6H PRN; Protocol PRN Reason: SBP > 160 Ibuprofen (Ibuprofen 200 Mg Tablet) 200 mg PO Q6H PRN PRN Reason: Pain, Moderate(Pain Scale 4-6) Last Admin: 06/27/23 00:20 Dose: 200 mg Lidocaine (Lidocaine 4 % Patch Adh..Patch) 1 patch TRANSDERMA DAILY [facility]; Protocol Last Admin: 07/03/23 10:19 Dose: 1 patch Lorazepam (Lorazepam 0.5 Mg Tablet) 0.5 mg PO Q4H PRN PRN Reason: Anxiety Last Admin: 06/27/23 21:04 Dose: 0.5 mg Magnesium Hydroxide (Milk Of Magnesia 30 Ml Oral.Susp) 30 ml PO DAILY PRN PRN Reason: Constipation Melatonin (Melatonin 3 Mg Tablet) 6 mg PO BEDTIME PRN PRN Reason: Insomnia Last Admin: 07/01/23 20:11 Dose: 6 mg Memantine (Memantine Hcl 5 Mg Tablet) 5 mg PO BID [facility] Last Admin: 07/03/23 20:05 Dose: 5 mg Potassium Phos/Sodium Phos (Sodium,Potassium Phosphates Powd.Pack) 1 packet PO QID [facility] Last Admin: 07/03/23 20:05 Dose: 1 packet Quetiapine Fumarate (Quetiapine Fumarate 25 Mg Tablet) 25 mg PO BEDTIME [facility] Last Admin: 07/03/23 20:05 Dose: 25 mg Tamsulosin HCl (Tamsulosin Hcl 0.4 Mg Capsule) 0.4 mg PO DAILY@1730 [facility] Last Admin: 07/03/23 16:36 Dose: 0.4 mg Thiamine HCl (Thiamine Hcl 100 Mg Tablet) 100 mg PO BID [facility] Last Admin: 07/03/23 20:05 Dose: 100 mg Vortioxetine (Vortioxetine Hydrobromide 5 Mg Tablet) 5 mg PO DAILY [facility] Last Admin: 07/03/23 10:18 Dose: 5 mg Allergies Allergies Allergy/AdvReac Type Severity Reaction Status Date / Time risperidone [From Risperdal] Allergy Intermediate UNKNOWN Verified 05/12/23 13:13 Sulfa (Sulfonamide Allergy Intermediate rash Verified 05/12/23 13:13 Antibiotics) From BENADRYL Allergy Intermediate DIZZY Uncoded 02/14/23 11:47 Assessment & Plan Assessment & Plan (1) Severe recurrent major depression w/psychotic features, mood-congruent: Status: Acute Code(s): F33.3 - Major depressive disorder, recurrent, severe with psychotic symptoms Plan Patient is severely depressed depressive psychotic symptoms thinking she is that God wants her labile mood thought disorganization scheduled for ECT in am has generally done well with ECT. 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 06/26/2023 Patient had ECT some confusion post ECT monitor for residual symptoms and clearing encourage food and fluids 06/27 continue current treatment plan 06/28 continue current treatment plan; ECT scheduled for Thursday06/30/2023 Patient remains severely depressed had missed doses of Namenda and Aricept which may have worsened confusion has been restarted encourage continue medication acceptance scheduled for unilateral ECT tomorrow has generally done well with ECT in the past 07/01/23 see ect note monitor for worsening delerium or confusion 07/02/2023 Continue ECT discharge planning monitor for worsening confusion 07/07/2023 Continue ECT re-evaluate continue discharge planning Radha Anderson Reason for continued inpatient stay Substantial Risk for: inability to function and rapid decompensation Time Spent With Patient Time: Total time managing care of this patient today ____ minutes.
[2023-07-04 08:45] VITALS: BP 124/62; PULSE 105; RESP 18; TEMP 36.4; O2SAT 97
[2023-07-04] MEDS: Sodium,Potassium Phosphates POWD.PACK 1 PACKET PO ×4 (08:59→20:00)
[2023-07-04] MEDS: Thiamine HCL 100 MG TABLET PO ×2 (08:59→20:01)
[2023-07-04] MEDS: Memantine HCl 5 MG TABLET PO ×2 (08:59→20:01)
[2023-07-04] MEDS: Vortioxetine Hydrobromide 5 MG TABLET PO (08:59)
[2023-07-04] MEDS: Cariprazine HCl 1.5 MG CAPSULE PO (08:59)
[2023-07-04] MEDS: Tamsulosin HCL 0.4 MG CAPSULE PO (16:48)
--- NOTE | 2023-07-04 17:51 | P.PNPSI_ITS ---
Subjective Subjective Date of Service: 07/04/23 Reason For Visit: Severe depression with psychotic features Interim History: Per staff patient more visible on the unit and less depressed. Patient feels ECT is helping. She denies any SI. Denies perceptual disturbances. Mental Status Exam Mental Status Exam Narrative: Pt is alert and oriented; behavior is cooperative, but with also some disorganization; calm; patient is not in distress; dressed in casual attire with unkempt hair but adequate hygiene; mood is described as depressedand affect congruent blunted; eye contact appropriate; Speech slowed, volume and prosody and not pressured; some psychomotor retardation present; thought process slowed more organized; Thought content is ongoing home; intermittent paranoia; no expressed SI/HI. Patients insight and judgment improving Diagnostics Vital Signs (24Hr): Vital Signs - 24 hr 07/03/23 19:35 07/04/23 08:45 Temperature 97.4 F 97.5 F Pulse Rate 98 105 H Respiratory Rate 16 18 Blood Pressure 150/84 H 124/62 Pulse Oximetry 96 97 Oxygen Delivery Method Room Air Room Air BMI result Body Mass Index 29.7 Medications Medications Current Medications Acetaminophen (Acetaminophen 325 Mg Tablet) 650 mg PO Q6H PRN PRN Reason: Headache/Pain Mild Scale (1-3) Last Admin: 07/01/23 15:22 Dose: 650 mg Al Hydroxide/Mg Hydroxide (Magnesium Hydrox/Alum Hydrox 30 Ml Oral.Susp) 30 ml PO Q6H PRN PRN Reason: Heartburn/Nausea Cariprazine (Cariprazine Hcl 1.5 Mg Capsule) 1.5 mg PO DAILY [facility] Last Admin: 07/04/23 08:59 Dose: 1.5 mg Clonidine (Clonidine 0.2 Mg Patch.Tdwk) 0.2 mg TRANSDERMA We@0900 [facility]; Protocol Last Admin: 07/01/23 11:30 Dose: 0.2 mg Donepezil HCl (Donepezil Hcl 10 Mg Tablet) 10 mg PO BEDTIME [facility] Last Admin: 07/03/23 20:05 Dose: 10 mg Hydralazine HCl (Hydralazine Hcl 20 Mg/Ml Vial) 10 mg IVPUSH Q6H PRN; Protocol PRN Reason: SBP > 160 Ibuprofen (Ibuprofen 200 Mg Tablet) 200 mg PO Q6H PRN PRN Reason: Pain, Moderate(Pain Scale 4-6) Last Admin: 06/27/23 00:20 Dose: 200 mg Lidocaine (Lidocaine 4 % Patch Adh..Patch) 1 patch TRANSDERMA DAILY [facility]; Protocol Last Admin: 07/04/23 09:41 Dose: Not Given Lorazepam (Lorazepam 0.5 Mg Tablet) 0.5 mg PO Q4H PRN PRN Reason: Anxiety Last Admin: 06/27/23 21:04 Dose: 0.5 mg Magnesium Hydroxide (Milk Of Magnesia 30 Ml Oral.Susp) 30 ml PO DAILY PRN PRN Reason: Constipation Melatonin (Melatonin 3 Mg Tablet) 6 mg PO BEDTIME PRN PRN Reason: Insomnia Last Admin: 07/01/23 20:11 Dose: 6 mg Memantine (Memantine Hcl 5 Mg Tablet) 5 mg PO BID [facility] Last Admin: 07/04/23 08:59 Dose: 5 mg Potassium Phos/Sodium Phos (Sodium,Potassium Phosphates Powd.Pack) 1 packet PO QID [facility] Last Admin: 07/04/23 16:48 Dose: 1 packet Quetiapine Fumarate (Quetiapine Fumarate 25 Mg Tablet) 25 mg PO BEDTIME [facility] Last Admin: 07/03/23 20:05 Dose: 25 mg Tamsulosin HCl (Tamsulosin Hcl 0.4 Mg Capsule) 0.4 mg PO DAILY@1730 [facility] Last Admin: 07/04/23 16:48 Dose: 0.4 mg Thiamine HCl (Thiamine Hcl 100 Mg Tablet) 100 mg PO BID [facility] Last Admin: 07/04/23 08:59 Dose: 100 mg Vortioxetine (Vortioxetine Hydrobromide 5 Mg Tablet) 5 mg PO DAILY [facility] Last Admin: 07/04/23 08:59 Dose: 5 mg Allergies Allergies Allergy/AdvReac Type Severity Reaction Status Date / Time risperidone [From Risperdal] Allergy Intermediate UNKNOWN Verified 05/12/23 13:13 Sulfa (Sulfonamide Allergy Intermediate rash Verified 05/12/23 13:13 Antibiotics) From BENADRYL Allergy Intermediate DIZZY Uncoded 02/14/23 11:47 Assessment & Plan Assessment & Plan (1) Severe recurrent major depression w/psychotic features, mood-congruent: Status: Acute Code(s): F33.3 - Major depressive disorder, recurrent, severe with psychotic symptoms Plan Patient is severely depressed depressive psychotic symptoms thinking she is that God wants her labile mood thought disorganization scheduled for ECT in am has generally done well with ECT. 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 06/26/2023 Patient had ECT some confusion post ECT monitor for residual symptoms and clearing encourage food and fluids 06/27 continue current treatment plan 06/28 continue current treatment plan; ECT scheduled for Thursday06/30/2023 Patient remains severely depressed had missed doses of Namenda and Aricept which may have worsened confusion has been restarted encourage continue medication acceptance scheduled for unilateral ECT tomorrow has generally done well with ECT in the past 07/01/23 see ect note monitor for worsening delerium or confusion 07/02/2023 Continue ECT discharge planning monitor for worsening confusion 07/04: Continue current management and treatment plan. Reason for continued inpatient stay Substantial Risk for: harm to self, inability to function and rapid decompensation Time Spent With Patient Time: Total time managing care of this patient today ____ minutes.
[2023-07-04 19:40] VITALS: BP 138/68; PULSE 74; RESP 18; TEMP 36.6; O2SAT 96
[2023-07-04] MEDS: QUEtiapine Fumarate 25 MG TABLET PO (20:01)
[2023-07-04] MEDS: Donepezil HCl 10 MG TABLET PO (20:01)
[2023-07-05 09:24] VITALS: BP 111/77; PULSE 107; RESP 18; TEMP 36.2; O2SAT 96
[2023-07-05] MEDS: Vortioxetine Hydrobromide 5 MG TABLET PO (09:26)
[2023-07-05] MEDS: Thiamine HCL 100 MG TABLET PO ×2 (09:26→21:18)
[2023-07-05] MEDS: Memantine HCl 5 MG TABLET PO ×2 (09:26→21:17)
[2023-07-05] MEDS: Sodium,Potassium Phosphates POWD.PACK 1 PACKET PO ×4 (09:26→21:18)
[2023-07-05] MEDS: Cariprazine HCl 1.5 MG CAPSULE PO (09:26)
[2023-07-05] MEDS: Tamsulosin HCL 0.4 MG CAPSULE PO (16:44)
--- NOTE | 2023-07-05 16:57 | P.PNPSI_ITS ---
Subjective Subjective Date of Service: 07/05/23 Reason For Visit: Severe depression with psychotic features Interim History: Per staff patient more visible on the unit and less depressed. Nursing report she is more interactive, accepted a shower, affect more reactive. Patient feels ECT is helping. She denies any SI. Denies perceptual disturbances. Mental Status Exam Mental Status Exam Narrative: Pt is alert and oriented; behavior is cooperative, but with also some disorganization; calm; patient is not in distress; dressed in casual attire with unkempt hair but adequate hygiene; mood is described as depressedand affect congruent blunted; eye contact appropriate; Speech slowed, volume and prosody and not pressured; some psychomotor retardation present; thought process slowed more organized; Thought content is ongoing home; intermittent paranoia; no expressed SI/HI. Patients insight and judgment improving Diagnostics Vital Signs (24Hr): Vital Signs - 24 hr 07/04/23 19:40 07/05/23 09:24 Temperature 97.9 F 97.1 F Pulse Rate 74 107 H Respiratory Rate 18 18 Blood Pressure 138/68 111/77 Pulse Oximetry 96 96 Oxygen Delivery Method Room Air Room Air BMI result Body Mass Index 29.7 Medications Medications Current Medications Acetaminophen (Acetaminophen 325 Mg Tablet) 650 mg PO Q6H PRN PRN Reason: Headache/Pain Mild Scale (1-3) Last Admin: 07/01/23 15:22 Dose: 650 mg Al Hydroxide/Mg Hydroxide (Magnesium Hydrox/Alum Hydrox 30 Ml Oral.Susp) 30 ml PO Q6H PRN PRN Reason: Heartburn/Nausea Cariprazine (Cariprazine Hcl 1.5 Mg Capsule) 1.5 mg PO DAILY [facility] Last Admin: 07/05/23 09:26 Dose: 1.5 mg Clonidine (Clonidine 0.2 Mg Patch.Tdwk) 0.2 mg TRANSDERMA We@0900 [facility]; Protocol Last Admin: 07/01/23 11:30 Dose: 0.2 mg Donepezil HCl (Donepezil Hcl 10 Mg Tablet) 10 mg PO BEDTIME [facility] Last Admin: 07/04/23 20:01 Dose: 10 mg Hydralazine HCl (Hydralazine Hcl 20 Mg/Ml Vial) 10 mg IVPUSH Q6H PRN; Protocol PRN Reason: SBP > 160 Ibuprofen (Ibuprofen 200 Mg Tablet) 200 mg PO Q6H PRN PRN Reason: Pain, Moderate(Pain Scale 4-6) Last Admin: 06/27/23 00:20 Dose: 200 mg Lidocaine (Lidocaine 4 % Patch Adh..Patch) 1 patch TRANSDERMA DAILY [facility]; Protocol Last Admin: 07/05/23 09:27 Dose: Not Given Lorazepam (Lorazepam 0.5 Mg Tablet) 0.5 mg PO Q4H PRN PRN Reason: Anxiety Last Admin: 06/27/23 21:04 Dose: 0.5 mg Magnesium Hydroxide (Milk Of Magnesia 30 Ml Oral.Susp) 30 ml PO DAILY PRN PRN Reason: Constipation Melatonin (Melatonin 3 Mg Tablet) 6 mg PO BEDTIME PRN PRN Reason: Insomnia Last Admin: 07/01/23 20:11 Dose: 6 mg Memantine (Memantine Hcl 5 Mg Tablet) 5 mg PO BID [facility] Last Admin: 07/05/23 09:26 Dose: 5 mg Potassium Phos/Sodium Phos (Sodium,Potassium Phosphates Powd.Pack) 1 packet PO QID [facility] Last Admin: 07/05/23 16:44 Dose: 1 packet Quetiapine Fumarate (Quetiapine Fumarate 25 Mg Tablet) 25 mg PO BEDTIME [facility] Last Admin: 07/04/23 20:01 Dose: 25 mg Tamsulosin HCl (Tamsulosin Hcl 0.4 Mg Capsule) 0.4 mg PO DAILY@1730 [facility] Last Admin: 07/05/23 16:44 Dose: 0.4 mg Thiamine HCl (Thiamine Hcl 100 Mg Tablet) 100 mg PO BID [facility] Last Admin: 07/05/23 09:26 Dose: 100 mg Vortioxetine (Vortioxetine Hydrobromide 5 Mg Tablet) 5 mg PO DAILY [facility] Last Admin: 07/05/23 09:26 Dose: 5 mg Allergies Allergies Allergy/AdvReac Type Severity Reaction Status Date / Time risperidone [From Risperdal] Allergy Intermediate UNKNOWN Verified 05/12/23 13:13 Sulfa (Sulfonamide Allergy Intermediate rash Verified 05/12/23 13:13 Antibiotics) From BENADRYL Allergy Intermediate DIZZY Uncoded 02/14/23 11:47 Assessment & Plan Assessment & Plan (1) Severe recurrent major depression w/psychotic features, mood-congruent: Status: Acute Code(s): F33.3 - Major depressive disorder, recurrent, severe with psychotic symptoms Plan Patient is severely depressed depressive psychotic symptoms thinking she is that God wants her labile mood thought disorganization scheduled for ECT in am has generally done well with ECT. 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 06/26/2023 Patient had ECT some confusion post ECT monitor for residual symptoms and cl earing encourage food and fluids 06/27 continue current treatment plan 06/28 continue current treatment plan; ECT scheduled for Thursday06/30/2023 Patient remains severely depressed had missed doses of Namenda and Aricept which may have worsened confusion has been restarted encourage continue medication acceptance scheduled for unilateral ECT tomorrow has generally done well with ECT in the past 07/01/23 see ect note monitor for worsening delerium or confusion 07/02/2023 Continue ECT discharge planning monitor for worsening confusion 07/04: Continue current management and treatment plan. 07/05: Continue current management and treatment plan. Reason for continued inpatient stay Substantial Risk for: inability to function, rapid decompensation and med/psych decompensation Time Spent With Patient Time: Total time managing care of this patient today ____ minutes.
[2023-07-05 18:00] VITALS: BP 122/68; PULSE 112; RESP 18; TEMP 36.4; O2SAT 95
[2023-07-05] MEDS: Donepezil HCl 10 MG TABLET PO (21:17)
[2023-07-05] MEDS: Acetaminophen 325 MG TABLET 650 MG PO (21:18)
[2023-07-05] MEDS: QUEtiapine Fumarate 25 MG TABLET PO (21:18)
[2023-07-06] VITALS (9 sets, daily range): BP systolic 104–157; BP diastolic 56–90; PULSE 91–124; RESP 16–20; TEMP 35.8–36.6; O2SAT 92–98
--- NOTE | 2023-07-06 06:34 | HO.ANESPROP2 ---
[facility] Active Problems Active Problems: All Active Problems (Updated 07/02/23 @ 00:03 by Background Milla) Psychotic depression (Acute) Severe recurrent major depression w/psychotic features, mood-congruent (Acute) Major depressive disorder, recurrent severe without psychotic features (Acute) Major depression, recurrent, full remission (Acute) Insomnia (Acute) POONAM (generalized anxiety disorder) (Acute) Hypothyroidism (Acute) Multinodular thyroid (Acute) Vitamin D deficiency (Acute) Osteoporosis (Acute) Past Medical History Medical History Dementia Severe recurrent major depression w/psychotic features, mood-congruent Has daytime drowsiness Nocturnal hypoxia Preoperative examination Elevated glucose Screening for colon cancer Screening for diabetes mellitus Obesity (BMI 30-39.9) Confused but orients easily Depression, major, severe recurrence Abnormal serum protein electrophoresis Mild recurrent major depression Anxiety and depression Encounter for Medicare annual wellness exam Removal of nell Depression with anxiety Abdominal distention Weight gain Major depression, recurrent, full remission POONAM (generalized anxiety disorder) Hypothyroidism Hyperparathyroidism Multinodular thyroid Vitamin D deficiency Osteoporosis Family History Family History Father Myocardial infarction CVD (cardiovascular disease) Mother Dementia Alzheimer disease Other Mental health disorder Family history of problems with anesthesia: No Surgical History Surgical History Hx of colonoscopy Hx of kyphoplasty Hx of section History of Problems with Anesthesia: No Social History Social History Household Members: Spouse Housing: House Do you presently have visiting nurse or other home services: Yes Alcohol intake: never Comment: 1:1 sitter at bedside Patient Tobacco Use Status: Never used Tobacco e-Cigarette/Vaping Use: Never Used Second Hand Smoke Exposure: No service: No Current occupational status: unemployed Sexual orientation: Straight/Heterosexual Cognitive needs: No Hearing needs: No Meds Allergies Allergy/AdvReac Type Severity Reaction Status Date / Time risperidone [From Risperdal] Allergy Intermediate UNKNOWN Verified 05/12/23 13:13 Sulfa (Sulfonamide Allergy Intermediate rash Verified 05/12/23 13:13 Antibiotics) From BENADRYL Allergy Intermediate DIZZY Uncoded 02/14/23 11:47 Active Medications: Current Medications Acetaminophen (Acetaminophen 325 Mg Tablet) 650 mg PO Q6H PRN PRN Reason: Headache/Pain Mild Scale (1-3) Last Admin: 07/05/23 21:18 Dose: 650 mg Al Hydroxide/Mg Hydroxide (Magnesium Hydrox/Alum Hydrox 30 Ml Oral.Susp) 30 ml PO Q6H PRN PRN Reason: Heartburn/Nausea Cariprazine (Cariprazine Hcl 1.5 Mg Capsule) 1.5 mg PO DAILY [facility] Last Admin: 07/05/23 09:26 Dose: 1.5 mg Clonidine (Clonidine 0.2 Mg Patch.Tdwk) 0.2 mg TRANSDERMA We@0900 [facility]; Protocol Last Admin: 07/01/23 11:30 Dose: 0.2 mg Donepezil HCl (Donepezil Hcl 10 Mg Tablet) 10 mg PO BEDTIME [facility] Last Admin: 07/05/23 21:17 Dose: 10 mg Hydralazine HCl (Hydralazine Hcl 20 Mg/Ml Vial) 10 mg IVPUSH Q6H PRN; Protocol PRN Reason: SBP > 160 Ibuprofen (Ibuprofen 200 Mg Tablet) 200 mg PO Q6H PRN PRN Reason: Pain, Moderate(Pain Scale 4-6) Last Admin: 06/27/23 00:20 Dose: 200 mg Lidocaine (Lidocaine 4 % Patch Adh..Patch) 1 patch TRANSDERMA DAILY [facility]; Protocol Last Admin: 07/05/23 09:27 Dose: Not Given Lorazepam (Lorazepam 0.5 Mg Tablet) 0.5 mg PO Q4H PRN PRN Reason: Anxiety Last Admin: 06/27/23 21:04 Dose: 0.5 mg Magnesium Hydroxide (Milk Of Magnesia 30 Ml Oral.Susp) 30 ml PO DAILY PRN PRN Reason: Constipation Melatonin (Melatonin 3 Mg Tablet) 6 mg PO BEDTIME PRN PRN Reason: Insomnia Last Admin: 07/01/23 20:11 Dose: 6 mg Memantine (Memantine Hcl 5 Mg Tablet) 5 mg PO BID [facility] Last Admin: 07/05/23 21:17 Dose: 5 mg Potassium Phos/Sodium Phos (Sodium,Potassium Phosphates Powd.Pack) 1 packet PO QID [facility] Last Admin: 07/05/23 21:18 Dose: 1 packet Quetiapine Fumarate (Quetiapine Fumarate 25 Mg Tablet) 25 mg PO BEDTIME [facility] Last Admin: 07/05/23 21:18 Dose: 25 mg Tamsulosin HCl (Tamsulosin Hcl 0.4 Mg Capsule) 0.4 mg PO DAILY@1730 [facility] Last Admin: 07/05/23 16:44 Dose: 0.4 mg Thiamine HCl (Thiamine Hcl 100 Mg Tablet) 100 mg PO BID [facility] Last Admin: 07/05/23 21:18 Dose: 100 mg Vortioxetine (Vortioxetine Hydrobromide 5 Mg Tablet) 5 mg PO DAILY [facility] Last Admin: 07/05/23 09:26 Dose: 5 mg Home Medications Medication Instructions Recorded Confirmed Last Taken Type doxepin 25 mg capsule 50 mg PO BEDTIME 06/15/23 06/29/23 Unknown History lumateperone 21 mg capsule 21 mg PO DAILY@1700 06/15/23 06/29/23 Unknown History memantine 5 mg tablet 10 mg PO BID 06/15/23 06/29/23 Unknown History Exam Height,Weight and Vital Signs: Height 5 ft Weight 69.1 kg Last Vital Signs Temp 97.6 F 07/05/23 18:00 Pulse 112 H 07/05/23 18:00 Resp 18 07/05/23 18:00 BP 122/68 07/05/23 18:00 Pulse Ox 95 07/05/23 18:00 O2 Del Method Room Air 07/05/23 18:00 O2 Flow Rate 2 07/03/23 09:06 Pertinent Lab Results Pertinent Lab Results: Laboratory Tests 06/25/23 06/29/23 06/29/23 10:35 10:40 11:30 COVID-19 ([facility]IL[facility]NA) Negative Invalid Negative COVID-19 Clin Com See Note See Note See Note 07/01/23 10:35 COVID-19 (EMILIANA) Negative COVID-19 Clin Com See Note Airway Mallampati Class: II TM Dist: >3cm Neck ROM: Full Heart: RRR Lungs: CTA Assessment and Plan Assessment Anesthesia Assessment: Anesthesia Plan Discussed Final Anesthetic Review Family History of Problems with Anesthesia: No History of Problems with Anesthesia: No ASA Class: III Final Preanesthetic Review: Meds/Allgs Chart Reviewed, Consent Obtained/Reviewed and Anes Risks/Benef Reviewed Patient Risk: Low Procedure Risk: Low Anesthetic Plan Anesthetic Plan: GA Disposition: Standard PACU
--- NOTE | 2023-07-06 06:58 | MHC.SHP ---
Pre-Procedural Eval Section A - 24 Hr Update-Section A only Date of Service: 07/06/23 The patient is an INPATIENT: Yes Changes since office visit: No Cold of Flu in the past 2 weeks, No New Medical Problems, No Changes in Medication and No Patient answered all questions The patient has been examined within 24 hours of the surgical procedure. The History & Physical has been completed within 30 days and I have reviewed it.: Yes Section B - Complete if H&P > 30 days Chief Complaint: Severe depression with psychotic features Allergies: Allergies Allergy/AdvReac Type Severity Reaction Status Date / Time risperidone [From Risperdal] Allergy Intermediate UNKNOWN Verified 05/12/23 13:13 Sulfa (Sulfonamide Allergy Intermediate rash Verified 05/12/23 13:13 Antibiotics) From BENADRYL Allergy Intermediate DIZZY Uncoded 02/14/23 11:47 Plan I have reviewed the history and physical and performed a pertinent physical examination on my patient. No changes have occurred unless specified. Time Spent With Patient Time: Total time managing care of this patient today ____ minutes.
--- NOTE | 2023-07-06 07:10 | HO.ECTPROC ---
ECT Procedure Note Diagnosis/Treatment Date of Service: 07/06/23 Diagnosis: Major Depressive Disorder Previous ECT Date: 07/03/23 Current Treatment Number: 3 Treatment: Series Interval Clinical Notes: The patient reports mild dysphoria, affect brighter since ECT was started. No side effects with the previous ECT. ECT ecci as usual, no complications, woke up well. Time: Total time managing care of this patient today _30___ minutes. ECT Settings Device: THYMATRON DGx Electrode Placement: Right Unilateral Program/Pulse Width: 0.25 Energy Percent: 40 Seizure Duration By EEG (in seconds): 50 By Motor Observation (in seconds): 0 Medications Administration General Anesthetic: Etomidate (10) Muscle Relaxant: Succinylcholine (80) Ancillary Medications Anti-emetics: Zofran - Pre ECT Miscillaneous Medications: Propofol (30) Airway Management Airway Management: Bag Mask Ventilation Treatment Recommendations No Changes Recommended: No change Pt Tolerated Procedure w/o Issue: Yes
[2023-07-06] MEDS: Thiamine HCL 100 MG TABLET PO ×2 (09:01→21:13)
[2023-07-06] MEDS: Vortioxetine Hydrobromide 5 MG TABLET PO (09:01)
[2023-07-06] MEDS: Cariprazine HCl 1.5 MG CAPSULE PO (09:01)
[2023-07-06] MEDS: Memantine HCl 5 MG TABLET PO ×2 (09:01→21:12)
[2023-07-06] MEDS: Sodium,Potassium Phosphates POWD.PACK 1 PACKET PO ×3 (09:02→16:56)
[2023-07-06] MEDS: Lidocaine 4 % Patch ADH..PATCH 1 PATCH TRANSDERMA (09:04)
[2023-07-06] MEDS: Tamsulosin HCL 0.4 MG CAPSULE PO (16:56)
[2023-07-06] MEDS: Propranolol HCL 10 MG TABLET PO (21:12)
[2023-07-06] MEDS: QUEtiapine Fumarate 25 MG TABLET PO (21:12)
[2023-07-06] MEDS: Donepezil HCl 10 MG TABLET PO (21:12)
[2023-07-07 06:00] VITALS: BP 116/66; PULSE 92; RESP 16; TEMP 36.1; O2SAT 97
[2023-07-07] MEDS: Propranolol HCL 10 MG TABLET PO ×2 (09:57→20:53)
[2023-07-07] MEDS: Memantine HCl 5 MG TABLET PO ×2 (09:57→20:53)
[2023-07-07] MEDS: Cariprazine HCl 1.5 MG CAPSULE PO (09:57)
[2023-07-07] MEDS: Sodium,Potassium Phosphates POWD.PACK 1 PACKET PO ×3 (09:57→20:53)
[2023-07-07] MEDS: Vortioxetine Hydrobromide 5 MG TABLET PO (09:57)
[2023-07-07] MEDS: Lidocaine 4 % Patch ADH..PATCH 1 PATCH TRANSDERMA (09:57)
[2023-07-07] MEDS: Thiamine HCL 100 MG TABLET PO ×2 (09:57→20:53)
[2023-07-07] MEDS: Tamsulosin HCL 0.4 MG CAPSULE PO (17:01)
[2023-07-07 20:00] VITALS: BP 106/61; PULSE 68; RESP 16; TEMP 37; O2SAT 97
[2023-07-07] MEDS: QUEtiapine Fumarate 25 MG TABLET PO (20:53)
[2023-07-07] MEDS: Donepezil HCl 10 MG TABLET PO (20:53)
[2023-07-08] VITALS (9 sets, daily range): BP systolic 128–159; BP diastolic 68–101; PULSE 78–105; RESP 12–20; TEMP 36.2–36.4; O2SAT 95–97
--- NOTE | 2023-07-08 07:00 | HO.ANESPROP2 ---
[facility] Active Problems Active Problems: All Active Problems (Updated 07/02/23 @ 00:03 by Background Milla) Psychotic depression (Acute) Severe recurrent major depression w/psychotic features, mood-congruent (Acute) Major depressive disorder, recurrent severe without psychotic features (Acute) Major depression, recurrent, full remission (Acute) Insomnia (Acute) POONAM (generalized anxiety disorder) (Acute) Hypothyroidism (Acute) Multinodular thyroid (Acute) Vitamin D deficiency (Acute) Osteoporosis (Acute) Past Medical History Medical History Dementia Severe recurrent major depression w/psychotic features, mood-congruent Has daytime drowsiness Nocturnal hypoxia Preoperative examination Elevated glucose Screening for colon cancer Screening for diabetes mellitus Obesity (BMI 30-39.9) Confused but orients easily Depression, major, severe recurrence Abnormal serum protein electrophoresis Mild recurrent major depression Anxiety and depression Encounter for Medicare annual wellness exam Removal of nell Depression with anxiety Abdominal distention Weight gain Major depression, recurrent, full remission POONAM (generalized anxiety disorder) Hypothyroidism Hyperparathyroidism Multinodular thyroid Vitamin D deficiency Osteoporosis Family History Family History Father Myocardial infarction CVD (cardiovascular disease) Mother Dementia Alzheimer disease Other Mental health disorder Family history of problems with anesthesia: No Surgical History Surgical History Hx of colonoscopy Hx of kyphoplasty Hx of section History of Problems with Anesthesia: No Social History Social History Household Members: Spouse Housing: House Do you presently have visiting nurse or other home services: Yes Alcohol intake: never Comment: 1:1 sitter at bedside Patient Tobacco Use Status: Never used Tobacco e-Cigarette/Vaping Use: Never Used Second Hand Smoke Exposure: No service: No Current occupational status: unemployed Sexual orientation: Straight/Heterosexual Cognitive needs: No Hearing needs: No Meds Allergies Allergy/AdvReac Type Severity Reaction Status Date / Time risperidone [From Risperdal] Allergy Intermediate UNKNOWN Verified 05/12/23 13:13 Sulfa (Sulfonamide Allergy Intermediate rash Verified 05/12/23 13:13 Antibiotics) From BENADRYL Allergy Intermediate DIZZY Uncoded 02/14/23 11:47 Active Medications: Current Medications Acetaminophen (Acetaminophen 325 Mg Tablet) 650 mg PO Q6H PRN PRN Reason: Headache/Pain Mild Scale (1-3) Last Admin: 07/05/23 21:18 Dose: 650 mg Al Hydroxide/Mg Hydroxide (Magnesium Hydrox/Alum Hydrox 30 Ml Oral.Susp) 30 ml PO Q6H PRN PRN Reason: Heartburn/Nausea Cariprazine (Cariprazine Hcl 1.5 Mg Capsule) 1.5 mg PO DAILY [facility] Last Admin: 07/07/23 09:57 Dose: 1.5 mg Clonidine (Clonidine 0.2 Mg Patch.Tdwk) 0.2 mg TRANSDERMA We@0900 [facility]; Protocol Last Admin: 07/01/23 11:30 Dose: 0.2 mg Donepezil HCl (Donepezil Hcl 10 Mg Tablet) 10 mg PO BEDTIME [facility] Last Admin: 07/07/23 20:53 Dose: 10 mg Hydralazine HCl (Hydralazine Hcl 20 Mg/Ml Vial) 10 mg IVPUSH Q6H PRN; Protocol PRN Reason: SBP > 160 Ibuprofen (Ibuprofen 200 Mg Tablet) 200 mg PO Q6H PRN PRN Reason: Pain, Moderate(Pain Scale 4-6) Last Admin: 06/27/23 00:20 Dose: 200 mg Lidocaine (Lidocaine 4 % Patch Adh..Patch) 1 patch TRANSDERMA DAILY [facility]; Protocol Last Admin: 07/07/23 09:57 Dose: 1 patch Lorazepam (Lorazepam 0.5 Mg Tablet) 0.5 mg PO Q4H PRN PRN Reason: Anxiety Last Admin: 06/27/23 21:04 Dose: 0.5 mg Magnesium Hydroxide (Milk Of Magnesia 30 Ml Oral.Susp) 30 ml PO DAILY PRN PRN Reason: Constipation Melatonin (Melatonin 3 Mg Tablet) 6 mg PO BEDTIME PRN PRN Reason: Insomnia Last Admin: 07/01/23 20:11 Dose: 6 mg Memantine (Memantine Hcl 5 Mg Tablet) 5 mg PO BID [facility] Last Admin: 07/07/23 20:53 Dose: 5 mg Potassium Phos/Sodium Phos (Sodium,Potassium Phosphates Powd.Pack) 1 packet PO QID [facility] Last Admin: 07/07/23 20:53 Dose: 1 packet Propranolol HCl (Propranolol Hcl 10 Mg Tablet) 10 mg PO BID [facility]; Protocol Last Admin: 07/07/23 20:53 Dose: 10 mg Quetiapine Fumarate (Quetiapine Fumarate 25 Mg Tablet) 25 mg PO BEDTIME [facility] Last Admin: 07/07/23 20:53 Dose: 25 mg Quetiapine Fumarate (Quetiapine Fumarate 25 Mg Tablet) 25 mg PO Q6H PRN PRN Reason: Anxiety/Restlessness Tamsulosin HCl (Tamsulosin Hcl 0.4 Mg Capsule) 0.4 mg PO DAILY@1730 [facility] Last Admin: 07/07/23 17:01 Dose: 0.4 mg Thiamine HCl (Thiamine Hcl 100 Mg Tablet) 100 mg PO BID [facility] Last Admin: 07/07/23 20:53 Dose: 100 mg Vortioxetine (Vortioxetine Hydrobromide 5 Mg Tablet) 5 mg PO DAILY [facility] Last Admin: 07/07/23 09:57 Dose: 5 mg Home Medications Medication Instructions Recorded Confirmed Last Taken Type doxepin 25 mg capsule 50 mg PO BEDTIME 06/15/23 06/29/23 Unknown History lumateperone 21 mg capsule 21 mg PO DAILY@1700 06/15/23 06/29/23 Unknown History memantine 5 mg tablet 10 mg PO BID 06/15/23 06/29/23 Unknown History Exam Height,Weight and Vital Signs: Height 5 ft Weight 69.1 kg Last Vital Signs Temp 97.3 F 07/08/23 06:55 Pulse 90 07/08/23 06:55 Resp 18 07/08/23 06:55 BP 136/81 07/08/23 06:55 Pulse Ox 96 07/08/23 06:55 O2 Del Method Room Air 07/08/23 06:55 O2 Flow Rate 2 07/06/23 07:32 Pertinent Lab Results Pertinent Lab Results: Laboratory Tests 06/25/23 06/29/23 06/29/23 10:35 10:40 11:30 COVID-19 ([facility]ILIANA) Negative Invalid Negative COVID-19 Clin Com See Note See Note See Note 07/01/23 10:35 COVID-19 (EMILIANA) Negative COVID-19 Clin Com See Note Airway Mallampati Class: II (4 teeth on bottom) TM Dist: >3cm Neck ROM: Full Heart: rrr Lungs: cta Assessment and Plan Assessment Anesthesia Assessment: Anesthesia Plan Discussed and Chart Reviewed Final Anesthetic Review Family History of Problems with Anesthesia: No History of Problems with Anesthesia: No NPO: Yes ASA Class: III Final Preanesthetic Review: No Changes in Pt Med Stat, Meds/Allgs Chart Reviewed and Consent Obtained/Reviewed Patient Risk: Intermediate Procedure Risk: Intermediate Anesthetic Plan Anesthetic Plan: GA Disposition: Standard PACU
[2023-07-08] MEDS: Lactated Ringers 1,000 ML 50 ML IVCONT (07:09)
--- NOTE | 2023-07-08 07:13 | HO.ECTPROC ---
ECT Procedure Note Diagnosis/Treatment Date of Service: 07/08/23 Diagnosis: Major Depressive Disorder Previous ECT Date: 07/06/23 Current Treatment Number: 4 Treatment: Series Interval Clinical Notes: The patient reports mild dysphoria, affect brighter since ECT was started.future oriented Time: Total time managing care of this patient today ____ minutes. ECT Settings Device: THYMATRON DGx Electrode Placement: Right Unilateral Program/Pulse Width: 0.25 Energy Percent: 40 Seizure Duration By EEG (in seconds): 42 Medications Administration General Anesthetic: Etomidate (10) Muscle Relaxant: Succinylcholine (80) Ancillary Medications Anti-emetics: Zofran - Pre ECT Miscillaneous Medications: Propofol (30) Airway Management Airway Management: Bag Mask Ventilation Treatment Recommendations No Changes Recommended: No change Notes: cont tx series no c/o adi e effects Pt Tolerated Procedure w/o Issue: Yes
--- NOTE | 2023-07-08 07:49 | MHC.SHP ---
Pre-Procedural Eval Section A - 24 Hr Update-Section A only Date of Service: 07/08/23 The patient is an INPATIENT: Yes Changes since office visit: Yes Changes in Medication and Yes Patient answered all questions; No Cold of Flu in the past 2 weeks and No New Medical Problems Section B - Complete if H&P > 30 days Chief Complaint: Severe depression with psychotic features Details of Present Illness: recurrent depression Relevant Social History: None Present Medications: see Short Stay Collaborative assessment Medical History: Significant History (ect mild dementia) Allergies: Allergies Allergy/AdvReac Type Severity Reaction Status Date / Time risperidone [From Risperdal] Allergy Intermediate UNKNOWN Verified 05/12/23 13:13 Sulfa (Sulfonamide Allergy Intermediate rash Verified 05/12/23 13:13 Antibiotics) From BENADRYL Allergy Intermediate DIZZY Uncoded 02/14/23 11:47 Review of Systems Sugical H&P ROS: Negative: Cardiovascular and Respiratory Exam Surgical H&P Exam: Normal: Heart and Normal: Lungs (clear) Plan Diagnosis/Plan: Unchanged I have reviewed the history and physical and performed a pertinent physical examination on my patient. No changes have occurred unless specified. Time Spent With Patient Time: Total time managing care of this patient today _30___ minutes.
[2023-07-08] MEDS: Thiamine HCL 100 MG TABLET PO ×2 (09:24→19:49)
[2023-07-08] MEDS: Propranolol HCL 10 MG TABLET PO ×2 (09:24→19:50)
[2023-07-08] MEDS: Sodium,Potassium Phosphates POWD.PACK 1 PACKET PO ×3 (09:24→19:50)
[2023-07-08] MEDS: Cariprazine HCl 1.5 MG CAPSULE PO (09:24)
[2023-07-08] MEDS: Vortioxetine Hydrobromide 5 MG TABLET PO (09:25)
[2023-07-08] MEDS: Memantine HCl 5 MG TABLET PO ×2 (09:25→19:49)
[2023-07-08] MEDS: Lidocaine 4 % Patch ADH..PATCH 1 PATCH TRANSDERMA (09:34)
[2023-07-08] MEDS: cloNIDine 0.2 MG PATCH.TDWK TRANSDERMA (11:38)
--- NOTE | 2023-07-08 13:49 | MHC.CLN ---
NUTRITION REVIEW OF MEAL INTAKE DOCUMENTATION SHOWS POOR PO INTAKE. ASKED PATIENT IF THERE WAS SOMETHING SHE WOULD LIKE TO EAT. DISCUSSED ICE CREAM AND AGREED. ADDING MAGIC CUP BID (580 KCALS, 18G PROTEIN) TO PROMOTE PO INTAKE. ADVISED STAFF THAT OK TO PROVIDE ENSURE PLUS DESIRED BY PATIENT. ENSURE PLUS HAS 350 KCALS, 20 G PROTEIN PER SERVING.
[2023-07-08] MEDS: Tamsulosin HCL 0.4 MG CAPSULE PO (16:15)
[2023-07-08] MEDS: Donepezil HCl 10 MG TABLET PO (19:49)
[2023-07-08] MEDS: QUEtiapine Fumarate 25 MG TABLET PO (19:50)
--- NOTE | 2023-07-08 22:14 | HO.PSYCHPN ---
Subjective Subjective Date of Service: 07/08/23 Reason For Visit: Severe depression with psychotic features Subjective Notes: Section 8 Interim History: pt continues to improve Mental Status Exam Mental Status Exam Narrative: Pt is alert and oriented; behavior is cooperative, but with also some disorganization; calm; patient is not in distress; dressed in casual attire with unkempt hair but adequate hygiene; mood is described as depressedand affect congruent blunted; eye contact appropriate; Speech slowed, volume and prosody and not pressured; some psychomotor retardation present; thought process slowed more organized; Thought content is ongoing home; intermittent paranoia; no expressed SI/HI. Patients insight and judgment improving Diagnostics Vital Signs (24Hr): Vital Signs - 24 hr 07/08/23 05:27 07/08/23 06:55 07/08/23 08:07 Temperature 97.2 F 97.3 F 97.1 F Pulse Rate 78 90 92 Respiratory Rate 16 18 16 Blood Pressure 129/75 136/81 149/87 H Pulse Oximetry 95 96 95 Oxygen Delivery Method Room Air Room Air Nasal Cannula with ETCO2 Oxygen Flow Rate 2 07/08/23 08:12 07/08/23 08:17 07/08/23 08:22 Temperature Pulse Rate 102 H 102 H 105 H Respiratory Rate 16 12 20 Blood Pressure 155/91 H 150/88 H 159/101 H Pulse Oximetry 97 96 95 Oxygen Delivery Method Nasal Cannula with ETCO2 Nasal Cannula with ETCO2 Nasal Cannula with ETCO2 Oxygen Flow Rate 2 2 2 07/08/23 08:37 07/08/23 08:52 07/08/23 18:00 Temperature 97.1 F 97.6 F Pulse Rate 98 95 79 Respiratory Rate 20 16 20 Blood Pressure 145/84 H 145/83 H 128/68 Pulse Oximetry 96 96 95 Oxygen Delivery Method Room Air Room Air Room Air Oxygen Flow Rate 2 BMI result Body Mass Index 29.7 Medications Medications Current Medications Acetaminophen (Acetaminophen 325 Mg Tablet) 650 mg PO Q6H PRN PRN Reason: Headache/Pain Mild Scale (1-3) Last Admin: 07/05/23 21:18 Dose: 650 mg Al Hydroxide/Mg Hydroxide (Magnesium Hydrox/Alum Hydrox 30 Ml Oral.Susp) 30 ml PO Q6H PRN PRN Reason: Heartburn/Nausea Cariprazine (Cariprazine Hcl 1.5 Mg Capsule) 1.5 mg PO DAILY [facility] Last Admin: 07/08/23 09:24 Dose: 1.5 mg Clonidine (Clonidine 0.2 Mg Patch.Tdwk) 0.2 mg TRANSDERMA We@0900 [facility]; Protocol Last Admin: 07/08/23 11:38 Dose: 0.2 mg Donepezil HCl (Donepezil Hcl 10 Mg Tablet) 10 mg PO BEDTIME [facility] Last Admin: 07/08/23 19:49 Dose: 10 mg Hydralazine HCl (Hydralazine Hcl 20 Mg/Ml Vial) 10 mg IVPUSH Q6H PRN; Protocol PRN Reason: SBP > 160 Ibuprofen (Ibuprofen 200 Mg Tablet) 200 mg PO Q6H PRN PRN Reason: Pain, Moderate(Pain Scale 4-6) Last Admin: 06/27/23 00:20 Dose: 200 mg Lidocaine (Lidocaine 4 % Patch Adh..Patch) 1 patch TRANSDERMA DAILY [facility]; Protocol Last Admin: 07/08/23 09:34 Dose: 1 patch Lorazepam (Lorazepam 0.5 Mg Tablet) 0.5 mg PO Q4H PRN PRN Reason: Anxiety Last Admin: 06/27/23 21:04 Dose: 0.5 mg Magnesium Hydroxide (Milk Of Magnesia 30 Ml Oral.Susp) 30 ml PO DAILY PRN PRN Reason: Constipation Melatonin (Melatonin 3 Mg Tablet) 6 mg PO BEDTIME PRN PRN Reason: Insomnia Last Admin: 07/01/23 20:11 Dose: 6 mg Memantine (Memantine Hcl 5 Mg Tablet) 5 mg PO BID [facility] Last Admin: 07/08/23 19:49 Dose: 5 mg Potassium Phos/Sodium Phos (Sodium,Potassium Phosphates Powd.Pack) 1 packet PO QID [facility] Last Admin: 07/08/23 19:50 Dose: 1 packet Propranolol HCl (Propranolol Hcl 10 Mg Tablet) 10 mg PO BID [facility]; Protocol Last Admin: 07/08/23 19:50 Dose: 10 mg Quetiapine Fumarate (Quetiapine Fumarate 25 Mg Tablet) 25 mg PO BEDTIME [facility] Last Admin: 07/08/23 19:50 Dose: 25 mg Quetiapine Fumarate (Quetiapine Fumarate 25 Mg Tablet) 25 mg PO Q6H PRN PRN Reason: Anxiety/Restlessness Tamsulosin HCl (Tamsulosin Hcl 0.4 Mg Capsule) 0.4 mg PO DAILY@1730 [facility] Last Admin: 07/08/23 16:15 Dose: 0.4 mg Thiamine HCl (Thiamine Hcl 100 Mg Tablet) 100 mg PO BID [facility] Last Admin: 07/08/23 19:49 Dose: 100 mg Vortioxetine (Vortioxetine Hydrobromide 5 Mg Tablet) 5 mg PO DAILY [facility] Last Admin: 07/08/23 09:25 Dose: 5 mg Allergies Allergies Allergy/AdvReac Type Severity Reaction Status Date / Time risperidone [From Risperdal] Allergy Intermediate UNKNOWN Verified 05/12/23 13:13 Sulfa (Sulfonamide Allergy Intermediate rash Verified 05/12/23 13:13 Antibiotics) From BENADRYL Allergy Intermediate DIZZY Uncoded 02/14/23 11:47 Assessment & Plan Assessment & Plan (1) Severe recurrent major depression w/psychotic features, mood-congruent: Status: Acute Code(s): F33.3 - Major depressive disorder, recurrent, severe with psychotic symptoms Plan Patient is severely depressed depressive psychotic symptoms thinking she is that God wants her labile mood thought disorganization scheduled for ECT in am has generally done well with ECT. 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 06/26/2023 Patient had ECT some confusion post ECT monitor for residual symptoms and clearing encourage food and fluids 06/27 continue current treatment plan 06/28 continue current treatment plan; ECT scheduled for Thursday06/30/2023 Patient remains severely depressed had missed doses of Namenda and Aricept which may have worsened confusion has been restarted encourage continue medication acceptance scheduled for unilateral ECT tomorrow has generally done well with ECT in the past 07/01/23 see ect note monitor for worsening delerium or confusion 07/02/2023 Continue ECT discharge planning monitor for worsening confusion 07/07/2023 Continue ECT re-evaluate continue discharge planning Radha Anderson 07/08/23 cont plan of care Reason for continued inpatient stay Substantial Risk for: inability to function, rapid decompensation and med/psych decompensation Time Spent With Patient Time: Total time managing care of this patient today ____ minutes.
[2023-07-09 07:00] VITALS: BMI 27.7
[2023-07-09] MEDS: Propranolol HCL 10 MG TABLET PO ×2 (08:11→21:14)
[2023-07-09] MEDS: Sodium,Potassium Phosphates POWD.PACK 1 PACKET PO ×4 (08:11→21:13)
[2023-07-09] MEDS: Thiamine HCL 100 MG TABLET PO ×2 (08:12→21:14)
[2023-07-09] MEDS: Cariprazine HCl 1.5 MG CAPSULE PO (08:12)
[2023-07-09] MEDS: Memantine HCl 5 MG TABLET PO ×2 (08:12→21:13)
[2023-07-09] MEDS: Vortioxetine Hydrobromide 5 MG TABLET PO (08:12)
[2023-07-09] MEDS: Lidocaine 4 % Patch ADH..PATCH 1 PATCH TRANSDERMA (08:12)
[2023-07-09 08:35] VITALS: BP 112/62; PULSE 98; RESP 16; TEMP 36.5; O2SAT 95
[2023-07-09] MEDS: Tamsulosin HCL 0.4 MG CAPSULE PO (16:27)
--- NOTE | 2023-07-09 16:30 | P.PNPSI_ITS ---
Subjective Subjective Date of Service: 07/09/23 Reason For Visit: Severe depression with psychotic features Subjective Notes: Section 8 Interim History: Pt with much flores affect alert no si not psychotic ect held for tmm eating well c/o back pain Medication Compliance: Yes Mental Status Exam Mental Status Exam Narrative: Pt is alert and oriented; behavior is cooperative calm; dressed in casual attire with unkempt hair but adequate hygiene; mood is described as much improved ; eye contact appropriate; Speech clear goal directed concrete Thought content is ongoing home; no PI; no expressed SI/HI. Patients insight and judgment much improved Diagnostics Vital Signs (24Hr): Vital Signs - 24 hr 07/08/23 18:00 07/09/23 08:35 Temperature 97.6 F 97.7 F Pulse Rate 79 98 Respiratory Rate 20 16 Blood Pressure 128/68 112/62 Pulse Oximetry 95 95 Oxygen Delivery Method Room Air Room Air BMI result Body Mass Index 27.7 Medications Medications Current Medications Acetaminophen (Acetaminophen 325 Mg Tablet) 650 mg PO Q6H PRN PRN Reason: Headache/Pain Mild Scale (1-3) Last Admin: 07/05/23 21:18 Dose: 650 mg Al Hydroxide/Mg Hydroxide (Magnesium Hydrox/Alum Hydrox 30 Ml Oral.Susp) 30 ml PO Q6H PRN PRN Reason: Heartburn/Nausea Cariprazine (Cariprazine Hcl 1.5 Mg Capsule) 1.5 mg PO DAILY [facility] Last Admin: 07/09/23 08:12 Dose: 1.5 mg Clonidine (Clonidine 0.2 Mg Patch.Tdwk) 0.2 mg TRANSDERMA We@0900 [facility]; Protocol Last Admin: 07/08/23 11:38 Dose: 0.2 mg Donepezil HCl (Donepezil Hcl 10 Mg Tablet) 10 mg PO BEDTIME [facility] Last Admin: 07/08/23 19:49 Dose: 10 mg Hydralazine HCl (Hydralazine Hcl 20 Mg/Ml Vial) 10 mg IVPUSH Q6H PRN; Protocol PRN Reason: SBP > 160 Ibuprofen (Ibuprofen 200 Mg Tablet) 200 mg PO Q6H PRN PRN Reason: Pain, Moderate(Pain Scale 4-6) Last Admin: 06/27/23 00:20 Dose: 200 mg Lidocaine (Lidocaine 4 % Patch Adh..Patch) 1 patch TRANSDERMA DAILY [facility]; Protocol Last Admin: 07/09/23 08:12 Dose: 1 patch Lorazepam (Lorazepam 0.5 Mg Tablet) 0.5 mg PO Q4H PRN PRN Reason: Anxiety Last Admin: 06/27/23 21:04 Dose: 0.5 mg Magnesium Hydroxide (Milk Of Magnesia 30 Ml Oral.Susp) 30 ml PO DAILY PRN PRN Reason: Constipation Melatonin (Melatonin 3 Mg Tablet) 6 mg PO BEDTIME PRN PRN Reason: Insomnia Last Admin: 07/01/23 20:11 Dose: 6 mg Memantine (Memantine Hcl 5 Mg Tablet) 5 mg PO BID [facility] Last Admin: 07/09/23 08:12 Dose: 5 mg Potassium Phos/Sodium Phos (Sodium,Potassium Phosphates Powd.Pack) 1 packet PO QID [facility] Last Admin: 07/09/23 16:26 Dose: 1 packet Propranolol HCl (Propranolol Hcl 10 Mg Tablet) 10 mg PO BID [facility]; Protocol Last Admin: 07/09/23 08:11 Dose: 10 mg Quetiapine Fumarate (Quetiapine Fumarate 25 Mg Tablet) 25 mg PO BEDTIME [facility] Last Admin: 07/08/23 19:50 Dose: 25 mg Quetiapine Fumarate (Quetiapine Fumarate 25 Mg Tablet) 25 mg PO Q6H PRN PRN Reason: Anxiety/Restlessness Tamsulosin HCl (Tamsulosin Hcl 0.4 Mg Capsule) 0.4 mg PO DAILY@1730 [facility] Last Admin: 07/09/23 16:27 Dose: 0.4 mg Thiamine HCl (Thiamine Hcl 100 Mg Tablet) 100 mg PO BID [facility] Last Admin: 07/09/23 08:12 Dose: 100 mg Vortioxetine (Vortioxetine Hydrobromide 5 Mg Tablet) 5 mg PO DAILY [facility] Last Admin: 07/09/23 08:12 Dose: 5 mg Allergies Allergies Allergy/AdvReac Type Severity Reaction Status Date / Time risperidone [From Risperdal] Allergy Intermediate UNKNOWN Verified 05/12/23 13:13 Sulfa (Sulfonamide Allergy Intermediate rash Verified 05/12/23 13:13 Antibiotics) From BENADRYL Allergy Intermediate DIZZY Uncoded 02/14/23 11:47 Assessment & Plan Assessment & Plan (1) Severe recurrent major depression w/psychotic features, mood-congruent: Status: Acute Code(s): F33.3 - Major depressive disorder, recurrent, severe with psychotic symptoms (2) POONAM (generalized anxiety disorder): Status: Acute Code(s): F41.1 - Generalized anxiety disorder Plan Patient is severely depressed depressive psychotic symptoms thinking she is that God wants her labile mood thought disorganization scheduled for ECT in am has generally done well with ECT. 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 06/26/2023 Patient had ECT some confusion post ECT monitor for residual symptoms and clearing encourage food and fluids 06/27 continue current treatment plan 06/28 continue current treatment plan; ECT scheduled for Thursday06/30/2023 Patient remains severely depressed had missed doses of Namenda and Aricept which may have worsened confusion has been restarted encourage continue medication acceptance scheduled for unilateral ECT tomorrow has generally done well with ECT in the past 07/01/23 see ect note monitor for worsening delerium or confusion 07/02/2023 Continue ECT discharge planning monitor for worsening confusion 07/07/2023 Continue ECT re-evaluate continue discharge planning Vraylar Marissatellix 07/08/23 cont plan of care 07/09/23 reval need for further ect ls xr no acute fx might benefit from pt outpt inc namenda d/c planning Reason for continued inpatient stay Substantial Risk for: inability to function and rapid decompensation Time Spent With Patient Time: Total time managing care of this patient today ____ minutes.
[2023-07-09 18:00] VITALS: BP 134/74; PULSE 80; RESP 16; TEMP 36.6; O2SAT 95
[2023-07-09] MEDS: QUEtiapine Fumarate 25 MG TABLET PO (21:13)
[2023-07-09] MEDS: Donepezil HCl 10 MG TABLET PO (21:13)
[2023-07-10 08:06] VITALS: BP 107/70; PULSE 85; RESP 18; TEMP 36.2; O2SAT 98
[2023-07-10] MEDS: Sodium,Potassium Phosphates POWD.PACK 1 PACKET PO ×4 (08:09→20:00)
[2023-07-10] MEDS: Thiamine HCL 100 MG TABLET PO ×2 (08:10→20:01)
[2023-07-10] MEDS: Vortioxetine Hydrobromide 5 MG TABLET PO (08:10)
[2023-07-10] MEDS: Propranolol HCL 10 MG TABLET PO ×2 (08:10→20:01)
[2023-07-10] MEDS: Cariprazine HCl 1.5 MG CAPSULE PO (08:11)
[2023-07-10] MEDS: Lidocaine 4 % Patch ADH..PATCH 1 PATCH TRANSDERMA (08:11)
[2023-07-10] MEDS: Memantine HCl 10 MG TABLET PO ×2 (08:11→20:02)
--- NOTE | 2023-07-10 14:05 | HO.PSYCHPN ---
Subjective Subjective Date of Service: 07/10/23 Reason For Visit: Severe depression with psychotic features Interim History: Pt pleasant and cooperative; she has flores affect; she dneies feeling depressed; alert no si not psychotic. eating well. reports wanting to go home. Medication Compliance: Yes Side effects from medications: No Attending Groups: Yes Review of Systems Acute medical concerns: No Medical Review of Systems: unchanged Review of Systems Review of Systems no changes Mental Status Exam Mental Status Exam Narrative: Pt is alert and oriented; behavior is cooperative calm; dressed in casual attire and kempt with adequate hygiene; mood is described as good with no depression. eye contact appropriate; Speech clear goal directed concrete Thought content is ongoing home; no PI; no expressed SI/HI. Patients insight and judgment much improved Diagnostics Vital Signs (24Hr): Vital Signs - 24 hr 07/09/23 18:00 07/10/23 08:06 Temperature 97.8 F 97.1 F Pulse Rate 80 85 Respiratory Rate 16 18 Blood Pressure 134/74 107/70 Pulse Oximetry 95 98 Oxygen Delivery Method Room Air Room Air BMI result Body Mass Index 27.7 Imaging Radiology Impressions: ITS Impressions Lumbar Spine X-Ray 07/09/23 17:14 IMPRESSION: 1. No acute fracture or dislocation. 2. There is loss of L2 vertebral height with remote cement augmentation. 3. There is loss of L1, T12 and T11 vertebral heights, likely old. Medications Medications Current Medications Acetaminophen (Acetaminophen 325 Mg Tablet) 650 mg PO Q6H PRN PRN Reason: Headache/Pain Mild Scale (1-3) Last Admin: 07/05/23 21:18 Dose: 650 mg Al Hydroxide/Mg Hydroxide (Magnesium Hydrox/Alum Hydrox 30 Ml Oral.Susp) 30 ml PO Q6H PRN PRN Reason: Heartburn/Nausea Cariprazine (Cariprazine Hcl 1.5 Mg Capsule) 1.5 mg PO DAILY [facility] Last Admin: 07/10/23 08:11 Dose: 1.5 mg Clonidine (Clonidine 0.2 Mg Patch.Tdwk) 0.2 mg TRANSDERMA We@0900 [facility]; Protocol Last Admin: 07/08/23 11:38 Dose: 0.2 mg Donepezil HCl (Donepezil Hcl 10 Mg Tablet) 10 mg PO BEDTIME [facility] Last Admin: 07/09/23 21:13 Dose: 10 mg Hydralazine HCl (Hydralazine Hcl 20 Mg/Ml Vial) 10 mg IVPUSH Q6H PRN; Protocol PRN Reason: SBP > 160 Ibuprofen (Ibuprofen 200 Mg Tablet) 200 mg PO Q6H PRN PRN Reason: Pain, Moderate(Pain Scale 4-6) Last Admin: 06/27/23 00:20 Dose: 200 mg Lidocaine (Lidocaine 4 % Patch Adh..Patch) 1 patch TRANSDERMA DAILY [facility]; Protocol Last Admin: 07/10/23 08:11 Dose: 1 patch Lorazepam (Lorazepam 0.5 Mg Tablet) 0.5 mg PO Q4H PRN PRN Reason: Anxiety Last Admin: 06/27/23 21:04 Dose: 0.5 mg Magnesium Hydroxide (Milk Of Magnesia 30 Ml Oral.Susp) 30 ml PO DAILY PRN PRN Reason: Constipation Melatonin (Melatonin 3 Mg Tablet) 6 mg PO BEDTIME PRN PRN Reason: Insomnia Last Admin: 07/01/23 20:11 Dose: 6 mg Memantine (Memantine Hcl 10 Mg Tablet) 10 mg PO BID [facility] Last Admin: 07/10/23 08:11 Dose: 10 mg Potassium Phos/Sodium Phos (Sodium,Potassium Phosphates Powd.Pack) 1 packet PO QID [facility] Last Admin: 07/10/23 13:18 Dose: 1 packet Propranolol HCl (Propranolol Hcl 10 Mg Tablet) 10 mg PO BID [facility]; Protocol Last Admin: 07/10/23 08:10 Dose: 10 mg Quetiapine Fumarate (Quetiapine Fumarate 25 Mg Tablet) 25 mg PO BEDTIME [facility] Last Admin: 07/09/23 21:13 Dose: 25 mg Quetiapine Fumarate (Quetiapine Fumarate 25 Mg Tablet) 25 mg PO Q6H PRN PRN Reason: Anxiety/Restlessness Tamsulosin HCl (Tamsulosin Hcl 0.4 Mg Capsule) 0.4 mg PO DAILY@1730 [facility] Last Admin: 07/09/23 16:27 Dose: 0.4 mg Thiamine HCl (Thiamine Hcl 100 Mg Tablet) 100 mg PO BID [facility] Last Admin: 07/10/23 08:10 Dose: 100 mg Vortioxetine (Vortioxetine Hydrobromide 5 Mg Tablet) 5 mg PO DAILY [facility] Last Admin: 07/10/23 08:10 Dose: 5 mg Allergies Allergies Allergy/AdvReac Type Severity Reaction Status Date / Time risperidone [From Risperdal] Allergy Intermediate UNKNOWN Verified 05/12/23 13:13 Sulfa (Sulfonamide Allergy Intermediate rash Verified 05/12/23 13:13 Antibiotics) From BENADRYL Allergy Intermediate DIZZY Uncoded 02/14/23 11:47 Assessment & Plan Assessment & Plan (1) Severe recurrent major depression w/psychotic features, mood-congruent: Status: Acute Code(s): F33.3 - Major depressive disorder, recurrent, severe with psychotic symptoms (2) POONAM (generalized anxiety disorder): Status: Acute Code(s): F41.1 - Generalized anxiety disorder Plan Patient is severely depressed depressive psychotic symptoms thinking she is that God wants her labile mood thought disorganization scheduled for ECT in am has generally done well with ECT. 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 06/26/2023 Patient had ECT some confusion post ECT monitor for residual symptoms and clearing encourage food and fluids 06/27 continue current treatment plan 06/28 continue current treatment plan; ECT scheduled for Thursday06/30/2023 Patient remains severely depressed had missed doses of Namenda and Aricept which may have worsened confusion has been restarted encourage continue medication acceptance scheduled for unilateral ECT tomorrow has generally done well with ECT in the past 07/01/23 see ect note monitor for worsening delerium or confusion 07/02/2023 Continue ECT discharge planning monitor for worsening confusion 07/07/2023 Continue ECT re-evaluate continue discharge planning Radha Annterani 07/08/23 cont plan of care 07/09/23 reval need for further ect ls xr no acute fx might benefit from pt outpt inc namenda d/c planning 07/10/23 no changes continue with tx plan Reason for continued inpatient stay Substantial Risk for: harm to self and inability to function Time Spent With Patient Time: Total time managing care of this patient today ____ minutes.
[2023-07-10] MEDS: Tamsulosin HCL 0.4 MG CAPSULE PO (16:46)
[2023-07-10 18:00] VITALS: BP 126/58; PULSE 78; RESP 18; TEMP 36.1; O2SAT 97
[2023-07-10] MEDS: QUEtiapine Fumarate 25 MG TABLET PO (20:00)
[2023-07-10] MEDS: Donepezil HCl 10 MG TABLET PO (20:01)
[2023-07-10] MEDS: LORazepam 0.5 MG TABLET PO (20:02)
[2023-07-11 08:20] VITALS: BP 103/64; PULSE 100; RESP 16; TEMP 36.4; O2SAT 98
[2023-07-11] MEDS: Sodium,Potassium Phosphates POWD.PACK 1 PACKET PO ×4 (09:05→20:23)
[2023-07-11] MEDS: Memantine HCl 10 MG TABLET PO ×2 (09:06→20:25)
[2023-07-11] MEDS: Propranolol HCL 10 MG TABLET PO ×2 (09:06→20:26)
[2023-07-11] MEDS: Cariprazine HCl 1.5 MG CAPSULE PO (09:07)
[2023-07-11] MEDS: Vortioxetine Hydrobromide 5 MG TABLET PO (09:07)
[2023-07-11] MEDS: Thiamine HCL 100 MG TABLET PO ×2 (09:08→20:25)
[2023-07-11] MEDS: Lidocaine 4 % Patch ADH..PATCH 1 PATCH TRANSDERMA (09:10)
--- NOTE | 2023-07-11 11:17 | P.PNPSI_ITS ---
Subjective Subjective Date of Service: 07/11/23 Reason For Visit: Severe depression with psychotic features Interim History: feeling improved, done with ECT, planning to discharge thursday. no complaints or requests. per staff, medication and meal compliant. no issues. Mental Status Exam Mental Status Exam Narrative: Pt is alert and oriented; behavior is cooperative calm; dressed in casual attire and kempt with adequate hygiene; mood is described as good with no depression. eye contact appropriate; Speech clear goal directed concrete Thought content is ongoing home; no PI; no expressed SI/HI. Patients insight and judgment much improved Diagnostics Vital Signs (24Hr): Vital Signs - 24 hr 07/10/23 18:00 07/11/23 08:20 Temperature 97 F 97.6 F Pulse Rate 78 100 Respiratory Rate 18 16 Blood Pressure 126/58 L 103/64 Pulse Oximetry 97 98 Oxygen Delivery Method Room Air Room Air BMI result Body Mass Index 27.7 Imaging Radiology Impressions: ITS Impressions Lumbar Spine X-Ray 07/09/23 17:14 IMPRESSION: 1. No acute fracture or dislocation. 2. There is loss of L2 vertebral height with remote cement augmentation. 3. There is loss of L1, T12 and T11 vertebral heights, likely old. Medications Medications Current Medications Acetaminophen (Acetaminophen 325 Mg Tablet) 650 mg PO Q6H PRN PRN Reason: Headache/Pain Mild Scale (1-3) Last Admin: 07/05/23 21:18 Dose: 650 mg Al Hydroxide/Mg Hydroxide (Magnesium Hydrox/Alum Hydrox 30 Ml Oral.Susp) 30 ml PO Q6H PRN PRN Reason: Heartburn/Nausea Cariprazine (Cariprazine Hcl 1.5 Mg Capsule) 1.5 mg PO DAILY [facility] Last Admin: 07/11/23 09:07 Dose: 1.5 mg Clonidine (Clonidine 0.2 Mg Patch.Tdwk) 0.2 mg TRANSDERMA We@0900 [facility]; Protocol Last Admin: 07/08/23 11:38 Dose: 0.2 mg Donepezil HCl (Donepezil Hcl 10 Mg Tablet) 10 mg PO BEDTIME [facility] Last Admin: 07/10/23 20:01 Dose: 10 mg Hydralazine HCl (Hydralazine Hcl 20 Mg/Ml Vial) 10 mg IVPUSH Q6H PRN; Protocol PRN Reason: SBP > 160 Ibuprofen (Ibuprofen 200 Mg Tablet) 200 mg PO Q6H PRN PRN Reason: Pain, Moderate(Pain Scale 4-6) Last Admin: 06/27/23 00:20 Dose: 200 mg Lidocaine (Lidocaine 4 % Patch Adh..Patch) 1 patch TRANSDERMA DAILY [facility]; Protocol Last Admin: 07/11/23 09:10 Dose: 1 patch Lorazepam (Lorazepam 0.5 Mg Tablet) 0.5 mg PO Q4H PRN PRN Reason: Anxiety Last Admin: 07/10/23 20:02 Dose: 0.5 mg Magnesium Hydroxide (Milk Of Magnesia 30 Ml Oral.Susp) 30 ml PO DAILY PRN PRN Reason: Constipation Melatonin (Melatonin 3 Mg Tablet) 6 mg PO BEDTIME PRN PRN Reason: Insomnia Last Admin: 07/01/23 20:11 Dose: 6 mg Memantine (Memantine Hcl 10 Mg Tablet) 10 mg PO BID [facility] Last Admin: 07/11/23 09:06 Dose: 10 mg Potassium Phos/Sodium Phos (Sodium,Potassium Phosphates Powd.Pack) 1 packet PO QID [facility] Last Admin: 07/11/23 09:05 Dose: 1 packet Propranolol HCl (Propranolol Hcl 10 Mg Tablet) 10 mg PO BID [facility]; Protocol Last Admin: 07/11/23 09:06 Dose: 10 mg Quetiapine Fumarate (Quetiapine Fumarate 25 Mg Tablet) 25 mg PO BEDTIME [facility] Last Admin: 07/10/23 20:00 Dose: 25 mg Quetiapine Fumarate (Quetiapine Fumarate 25 Mg Tablet) 25 mg PO Q6H PRN PRN Reason: Anxiety/Restlessness Tamsulosin HCl (Tamsulosin Hcl 0.4 Mg Capsule) 0.4 mg PO DAILY@1730 [facility] Last Admin: 07/10/23 16:46 Dose: 0.4 mg Thiamine HCl (Thiamine Hcl 100 Mg Tablet) 100 mg PO BID [facility] Last Admin: 07/11/23 09:08 Dose: 100 mg Vortioxetine (Vortioxetine Hydrobromide 5 Mg Tablet) 5 mg PO DAILY [facility] Last Admin: 07/11/23 09:07 Dose: 5 mg Allergies Allergies Allergy/AdvReac Type Severity Reaction Status Date / Time risperidone [From Risperdal] Allergy Intermediate UNKNOWN Verified 05/12/23 13:13 Sulfa (Sulfonamide Allergy Intermediate rash Verified 05/12/23 13:13 Antibiotics) From BENADRYL Allergy Intermediate DIZZY Uncoded 09/09/23 11:47 Assessment & Plan Assessment & Plan (1) Severe recurrent major depression w/psychotic features, mood-congruent: Status: Acute Code(s): F33.3 - Major depressive disorder, recurrent, severe with psychotic symptoms (2) POONAM (generalized anxiety disorder): Status: Acute Code(s): F41.1 - Generalized anxiety disorder Plan Patient is severely depressed depressive psychotic symptoms thinking she is that God wants her labile mood thought disorganization scheduled for ECT in am has generally done well with ECT. 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 06/26/2023 Patient had ECT some confusion post ECT monitor for residual symptoms and clearing encourage food and fluids 06/27 continue current treatment plan 06/28 continue current treatment plan; ECT scheduled for Thursday06/30/2023 Patient remains severely depressed had missed doses of Namenda and Aricept which may have worsened confusion has been restarted encourage continue medication acceptance scheduled for unilateral ECT tomorrow has generally done well with ECT in the past 07/01/23 see ect note monitor for worsening delerium or confusion 07/02/2023 Continue ECT discharge planning monitor for worsening confusion 07/07/2023 Continue ECT re-evaluate continue discharge planning Vraylar Trintellix 07/08/23 cont plan of care 07/09/23 reval need for further ect ls xr no acute fx might benefit from pt outpt inc namenda d/c planning 07/11: stable, continue current mgmt. Reason for continued inpatient stay Substantial Risk for: rapid decompensation Time Spent With Patient Time: Total time managing care of this patient today ____ minutes.
[2023-07-11] MEDS: Tamsulosin HCL 0.4 MG CAPSULE PO (16:29)
[2023-07-11 18:00] VITALS: BP 134/72; PULSE 83; RESP 18; TEMP 36.2; O2SAT 97
[2023-07-11] MEDS: QUEtiapine Fumarate 25 MG TABLET PO (20:25)
[2023-07-11] MEDS: LORazepam 0.5 MG TABLET PO (20:25)
[2023-07-11] MEDS: Donepezil HCl 10 MG TABLET PO (20:26)
[2023-07-12 08:00] VITALS: BP 118/76; PULSE 101; RESP 18; TEMP 36.1; O2SAT 96
[2023-07-12] MEDS: Sodium,Potassium Phosphates POWD.PACK 1 PACKET PO ×4 (08:25→19:40)
[2023-07-12] MEDS: Vortioxetine Hydrobromide 5 MG TABLET PO (08:25)
[2023-07-12] MEDS: Cariprazine HCl 1.5 MG CAPSULE PO (08:26)
[2023-07-12] MEDS: Thiamine HCL 100 MG TABLET PO ×2 (08:26→22:20)
[2023-07-12] MEDS: Propranolol HCL 10 MG TABLET PO ×2 (08:26→19:41)
[2023-07-12] MEDS: Memantine HCl 10 MG TABLET PO ×2 (08:27→19:40)
[2023-07-12] MEDS: Lidocaine 4 % Patch ADH..PATCH 1 PATCH TRANSDERMA (08:27)
--- NOTE | 2023-07-12 10:20 | P.PNPSI_ITS ---
Subjective Subjective Date of Service: 07/12/23 Reason For Visit: Severe depression with psychotic features Interim History: pleasant, cooperative. no requests or complaints. per staff, no issues. pleasant, coop. had ativan for sleep last NOC. Mental Status Exam Mental Status Exam Narrative: Pt is alert and oriented; behavior is cooperative calm; dressed in casual attire and kempt with adequate hygiene; mood is described as good with no depression. eye contact appropriate; Speech clear goal directed concrete Thought content is ongoing home; no expressed SI/HI. Patients insight and judgment much improved Diagnostics Vital Signs (24Hr): Vital Signs - 24 hr 07/11/23 18:00 07/12/23 08:00 Temperature 97.2 F 96.9 F Pulse Rate 83 101 H Respiratory Rate 18 18 Blood Pressure 134/72 118/76 Pulse Oximetry 97 96 Oxygen Delivery Method Room Air Room Air BMI result Body Mass Index 27.7 Imaging Radiology Impressions: ITS Impressions Lumbar Spine X-Ray 07/09/23 17:14 IMPRESSION: 1. No acute fracture or dislocation. 2. There is loss of L2 vertebral height with remote cement augmentation. 3. There is loss of L1, T12 and T11 vertebral heights, likely old. Medications Medications Current Medications Acetaminophen (Acetaminophen 325 Mg Tablet) 650 mg PO Q6H PRN PRN Reason: Headache/Pain Mild Scale (1-3) Last Admin: 07/05/23 21:18 Dose: 650 mg Al Hydroxide/Mg Hydroxide (Magnesium Hydrox/Alum Hydrox 30 Ml Oral.Susp) 30 ml PO Q6H PRN PRN Reason: Heartburn/Nausea Cariprazine (Cariprazine Hcl 1.5 Mg Capsule) 1.5 mg PO DAILY [facility] Last Admin: 07/12/23 08:26 Dose: 1.5 mg Clonidine (Clonidine 0.2 Mg Patch.Tdwk) 0.2 mg TRANSDERMA We@0900 [facility]; Protocol Last Admin: 07/08/23 11:38 Dose: 0.2 mg Donepezil HCl (Donepezil Hcl 10 Mg Tablet) 10 mg PO BEDTIME [facility] Last Admin: 07/11/23 20:26 Dose: 10 mg Hydralazine HCl (Hydralazine Hcl 20 Mg/Ml Vial) 10 mg IVPUSH Q6H PRN; Protocol PRN Reason: SBP > 160 Ibuprofen (Ibuprofen 200 Mg Tablet) 200 mg PO Q6H PRN PRN Reason: Pain, Moderate(Pain Scale 4-6) Last Admin: 06/27/23 00:20 Dose: 200 mg Lidocaine (Lidocaine 4 % Patch Adh..Patch) 1 patch TRANSDERMA DAILY [facility]; Anel col Last Admin: 07/12/23 08:27 Dose: 1 patch Magnesium Hydroxide (Milk Of Magnesia 30 Ml Oral.Susp) 30 ml PO DAILY PRN PRN Reason: Constipation Melatonin (Melatonin 3 Mg Tablet) 6 mg PO BEDTIME PRN PRN Reason: Insomnia Last Admin: 07/01/23 20:11 Dose: 6 mg Memantine (Memantine Hcl 10 Mg Tablet) 10 mg PO BID [facility] Last Admin: 07/12/23 08:27 Dose: 10 mg Potassium Phos/Sodium Phos (Sodium,Potassium Phosphates Powd.Pack) 1 packet PO QID [facility] Last Admin: 07/12/23 08:25 Dose: 1 packet Propranolol HCl (Propranolol Hcl 10 Mg Tablet) 10 mg PO BID [facility]; Protocol Last Admin: 07/12/23 08:26 Dose: 10 mg Quetiapine Fumarate (Quetiapine Fumarate 25 Mg Tablet) 25 mg PO BEDTIME [facility] Last Admin: 07/11/23 20:25 Dose: 25 mg Quetiapine Fumarate (Quetiapine Fumarate 25 Mg Tablet) 25 mg PO Q6H PRN PRN Reason: Anxiety/Restlessness Tamsulosin HCl (Tamsulosin Hcl 0.4 Mg Capsule) 0.4 mg PO DAILY@1730 [facility] Last Admin: 07/11/23 16:29 Dose: 0.4 mg Thiamine HCl (Thiamine Hcl 100 Mg Tablet) 100 mg PO BID [facility] Last Admin: 07/12/23 08:26 Dose: 100 mg Vortioxetine (Vortioxetine Hydrobromide 5 Mg Tablet) 5 mg PO DAILY [facility] Last Admin: 07/12/23 08:25 Dose: 5 mg Allergies Allergies Allergy/AdvReac Type Severity Reaction Status Date / Time risperidone [From Risperdal] Allergy Intermediate UNKNOWN Verified 05/12/23 13:13 Sulfa (Sulfonamide Allergy Intermediate rash Verified 05/12/23 13:13 Antibiotics) From BENADRYL Allergy Intermediate DIZZY Uncoded 02/14/23 11:47 Assessment & Plan Assessment & Plan (1) Severe recurrent major depression w/psychotic features, mood-congruent: Status: Acute Code(s): F33.3 - Major depressive disorder, recurrent, severe with psychotic symptoms (2) POONAM (generalized anxiety disorder): Status: Acute Code(s): F41.1 - Generalized anxiety disorder Plan Patient is severely depressed depressive psychotic symptoms thinking she is that God wants her labile mood thought disorganization scheduled for ECT in am has generally done well with ECT. 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 06/26/2023 Patient had ECT some confusion post ECT monitor for residual symptoms and clearing encourage food and fluids 06/27 continue current treatment plan 06/28 continue current treatment plan; ECT scheduled for Thursday06/30/2023 Patient remains severely depressed had missed doses of Namenda and Aricept which may have worsened confusion has been restarted encourage continue medication acceptance scheduled for unilateral ECT tomorrow has generally done well with ECT in the past 07/01/23 see ect note monitor for worsening delerium or confusion 07/02/2023 Continue ECT discharge planning monitor for worsening confusion 07/07/2023 Continue ECT re-evaluate continue discharge planning Radha Anderson 07/08/23 cont plan of care 07/09/23 reval need for further ect ls xr no acute fx might benefit from pt outpt inc namenda d/c planning 07/11: stable, continue current mgmt. 07/12: no change, continue current mgmt. Reason for continued inpatient stay Substantial Risk for: rapid decompensation Time Spent With Patient Time: Total time managing care of this patient today ____ minutes.
[2023-07-12] MEDS: Tamsulosin HCL 0.4 MG CAPSULE PO (16:31)
[2023-07-12 18:00] VITALS: BP 134/60; PULSE 96; RESP 18; TEMP 36; O2SAT 94
[2023-07-12] MEDS: Melatonin 3 MG TABLET 6 MG PO (19:40)
[2023-07-12] MEDS: Donepezil HCl 10 MG TABLET PO (19:41)
[2023-07-12] MEDS: QUEtiapine Fumarate 25 MG TABLET PO (19:41)
[2023-07-13 08:23] VITALS: BP 128/62; PULSE 101; RESP 18; TEMP 36.1; O2SAT 98
[2023-07-13] MEDS: Cariprazine HCl 1.5 MG CAPSULE PO (08:28)
[2023-07-13] MEDS: Vortioxetine Hydrobromide 5 MG TABLET PO (08:28)
[2023-07-13] MEDS: Memantine HCl 10 MG TABLET PO ×2 (08:28→20:45)
[2023-07-13] MEDS: Lidocaine 4 % Patch ADH..PATCH 1 PATCH TRANSDERMA (08:28)
[2023-07-13] MEDS: Propranolol HCL 10 MG TABLET PO ×2 (08:28→20:45)
[2023-07-13] MEDS: Sodium,Potassium Phosphates POWD.PACK 1 PACKET PO ×4 (08:28→20:45)
[2023-07-13] MEDS: Thiamine HCL 100 MG TABLET PO ×2 (08:28→20:45)
[2023-07-13] MEDS: Tamsulosin HCL 0.4 MG CAPSULE PO (18:04)
[2023-07-13 19:45] VITALS: BP 134/81; PULSE 97; RESP 18; TEMP 36.4; O2SAT 96
[2023-07-13] MEDS: QUEtiapine Fumarate 25 MG TABLET PO (20:45)
[2023-07-13] MEDS: Donepezil HCl 10 MG TABLET PO (20:45)
--- NOTE | 2023-07-13 22:49 | HO.PSYCHPN ---
Subjective Subjective Date of Service: 07/13/23 Reason For Visit: Severe depression with psychotic features Subjective Notes: Section 8 Interim History: The patient is future oriented mild dysphoria no self-harming thoughts no psychosis Medication Compliance: Yes Mental Status Exam Mental Status Exam Narrative: Pt is alert and oriented; behavior is cooperative calm; dressed in casual attire and kempt with adequate hygiene; mood is described as good with no depression. eye contact appropriate; Speech clear goal directed concrete Thought content is ongoing home; no expressed SI/HI. Patients insight and judgment much improved Diagnostics Vital Signs (24Hr): Vital Signs - 24 hr 07/13/23 08:23 07/13/23 19:45 Temperature 97 F 97.6 F Pulse Rate 101 H 97 Respiratory Rate 18 18 Blood Pressure 128/62 134/81 Pulse Oximetry 98 96 Oxygen Delivery Method Room Air Room Air BMI result Body Mass Index 27.7 Labs 07/14/23 10:57 Imaging Radiology Impressions: ITS Impressions Lumbar Spine X-Ray 07/09/23 17:14 IMPRESSION: 1. No acute fracture or dislocation. 2. There is loss of L2 vertebral height with remote cement augmentation. 3. There is loss of L1, T12 and T11 vertebral heights, likely old. Medications Medications Current Medications Acetaminophen (Acetaminophen 325 Mg Tablet) 650 mg PO Q6H PRN PRN Reason: Headache/Pain Mild Scale (1-3) Last Admin: 07/05/23 21:18 Dose: 650 mg Al Hydroxide/Mg Hydroxide (Magnesium Hydrox/Alum Hydrox 30 Ml Oral.Susp) 30 ml PO Q6H PRN PRN Reason: Heartburn/Nausea Cariprazine (Cariprazine Hcl 1.5 Mg Capsule) 1.5 mg PO DAILY [facility] Last Admin: 07/13/23 08:28 Dose: 1.5 mg Clonidine (Clonidine 0.2 Mg Patch.Tdwk) 0.2 mg TRANSDERMA We@0900 [facility]; Protocol Last Admin: 07/08/23 11:38 Dose: 0.2 mg Donepezil HCl (Donepezil Hcl 10 Mg Tablet) 10 mg PO BEDTIME [facility] Last Admin: 07/13/23 20:45 Dose: 10 mg Hydralazine HCl (Hydralazine Hcl 20 Mg/Ml Vial) 10 mg IVPUSH Q6H PRN; Protocol PRN Reason: SBP > 160 Ibuprofen (Ibuprofen 200 Mg Tablet) 200 mg PO Q6H PRN PRN Reason: Pain, Moderate(Pain Scale 4-6) Last Admin: 06/27/23 00:20 Dose: 200 mg Lidocaine (Lidocaine 4 % Patch Adh..Patch) 1 patch TRANSDERMA DAILY [facility]; Protocol Last Admin: 07/13/23 08:28 Dose: 1 patch Lorazepam (Lorazepam 0.5 Mg Tablet) 0.5 mg PO Q8H PRN PRN Reason: moderate, anxiety Magnesium Hydroxide (Milk Of Magnesia 30 Ml Oral.Susp) 30 ml PO DAILY PRN PRN Reason: Constipation Melatonin (Melatonin 3 Mg Tablet) 6 mg PO BEDTIME PRN PRN Reason: Insomnia Last Admin: 07/12/23 19:40 Dose: 6 mg Memantine (Memantine Hcl 10 Mg Tablet) 10 mg PO BID [facility] Last Admin: 07/13/23 20:45 Dose: 10 mg Potassium Phos/Sodium Phos (Sodium,Potassium Phosphates Powd.Pack) 1 packet PO QID [facility] Last Admin: 07/13/23 20:45 Dose: 1 packet Propranolol HCl (Propranolol Hcl 10 Mg Tablet) 10 mg PO BID [facility]; Protocol Last Admin: 07/13/23 20:45 Dose: 10 mg Quetiapine Fumarate (Quetiapine Fumarate 25 Mg Tablet) 25 mg PO BEDTIME [facility] Last Admin: 07/13/23 20:45 Dose: 25 mg Quetiapine Fumarate (Quetiapine Fumarate 25 Mg Tablet) 25 mg PO Q6H PRN PRN Reason: Anxiety/Restlessness Tamsulosin HCl (Tamsulosin Hcl 0.4 Mg Capsule) 0.4 mg PO DAILY@1730 [facility] Last Admin: 07/13/23 18:04 Dose: 0.4 mg Thiamine HCl (Thiamine Hcl 100 Mg Tablet) 100 mg PO BID [facility] Last Admin: 07/13/23 20:45 Dose: 100 mg Vortioxetine (Vortioxetine Hydrobromide 5 Mg Tablet) 5 mg PO DAILY [facility] Last Admin: 07/13/23 08:28 Dose: 5 mg Allergies Allergies Allergy/AdvReac Type Severity Reaction Status Date / Time risperidone [From Risperdal] Allergy Intermediate UNKNOWN Verified 05/12/23 13:13 Sulfa (Sulfonamide Allergy Intermediate rash Verified 05/12/23 13:13 Antibiotics) From BENADRYL Allergy Intermediate DIZZY Uncoded 02/14/23 11:47 Assessment & Plan Assessment & Plan (1) Severe recurrent major depression w/psychotic features, mood-congruent: Status: Acute Code(s): F33.3 - Major depressive disorder, recurrent, severe with psychotic symptoms (2) POONAM (generalized anxiety disorder): Status: Acute Code(s): F41.1 - Generalized anxiety disorder Plan Patient is severely depressed depressive psychotic symptoms thinking she is that God wants her labile mood thought disorganization scheduled for ECT in am has generally done well with ECT. 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 06/26/2023 Patient had ECT some confusion post ECT monitor for residual symptoms and clearing encourage food and fluids 06/27 continue current treatment plan 06/28 continue current treatment plan; ECT scheduled for Thursday06/30/2023 Patient remains severely depressed had missed doses of Namenda and Aricept which may have worsened confusion has been restarted encourage continue medication acceptance scheduled for unilateral ECT tomorrow has generally done well with ECT in the past 07/01/23 see ect note monitor for worsening delerium or confusion 07/02/2023 Continue ECT discharge planning monitor for worsening confusion 07/07/2023 Continue ECT re-evaluate continue discharge planning Vraylar Marissatellix 07/08/23 cont plan of care 07/09/23 reval need for further ect ls xr no acute fx might benefit from pt outpt inc namenda d/c planning 07/11: stable, continue current mgmt. 07/12: no change, continue current mgmt. 07/13/2023 Patient seems stable for discharge in a.m. will try to transition to outpatient ECT Reason for continued inpatient stay Substantial Risk for: inability to function and rapid decompensation Time Spent With Patient Time: Total time managing care of this patient today ____ minutes.
[2023-07-14 08:15] VITALS: BP 125/74; PULSE 96; RESP 18; TEMP 36.1; O2SAT 97
[2023-07-14] MEDS: Sodium,Potassium Phosphates POWD.PACK 1 PACKET PO (08:24)
[2023-07-14] MEDS: Propranolol HCL 10 MG TABLET PO (08:25)
[2023-07-14] MEDS: Lidocaine 4 % Patch ADH..PATCH 1 PATCH TRANSDERMA (08:25)
[2023-07-14] MEDS: Vortioxetine Hydrobromide 10 MG TABLET PO (08:25)
[2023-07-14] MEDS: Cariprazine HCl 1.5 MG CAPSULE PO (08:25)
[2023-07-14] MEDS: Memantine HCl 10 MG TABLET PO (08:25)
[2023-07-14] MEDS: Thiamine HCL 100 MG TABLET PO (08:25)
[2023-07-14 11:24] LABS: Alanine Aminotransferase 28 U/L (0-31); Albumin Level 3.7 g/dL (3.5-5.0); Alkaline Phosphatase 94 U/L (39-117); Anion Gap 15 (12-20); Aspartate Amino Transferase 18 U/L (5-31); Bilirubin Total 0.5 mg/dL (0.0-1.0); Blood Urea Nitrogen 9 mg/dL (9-16); Carbon Dioxide 29 mmol/L (22-29); Chloride 102 mmol/L (96-108); Estimated Glomerular Filt Rate > 60; Glucose Random 101 mg/dL (60-115); Potassium 4.5 mmol/L (3.3-5.1); Sodium 141 mmol/L (135-145); Total Protein 7.8 g/dL (6.5-8.0)
--- NOTE | 2023-07-14 12:16 | PC.NURSE ---
Pt. A & O to person, place an time. Aware of situation, but has poor insight into how improved she is and how decompensated she was. Denies anxiety/depression/SI/HI/perceptual disturbances. Discharge instructions and medications reviewed with pt. and . Written instructions provided in Thai and German. Pt. and report that medication regimen is too complicated for them to manage. notified. 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, but pt. lost [facility] insurance. Label Drier provided pt. and with resource for assistance with re establishing [facility], and this RN re wrote medication regimen in simplified format, which pt. and verbalized they understood. Pt. escorted off of unit and to car accompanied by this story writer and at 11:35.
--- NOTE | 2023-07-14 20:12 | P.DS_ITS ---
DS: Providers Provider Date of Service: 07/14/23 Date of admission: 06/24/23 17:54 Date of discharge: 07/14/23 Primary care physician: Unknown Physician Admitting clinician: Broderick Willett Attending physician on admission: Broderick Willett Attending physician on discharge: Broderick Willett DS: Diagnosis Discharge Diagnosis (1) Severe recurrent major depression w/psychotic features, mood-congruent: Status: Acute (2) POONAM (generalized anxiety disorder): Status: Acute (3) Dementia: Status: Acute (4) Spondylosis without myelopathy or radiculopathy, lumbar region: Status: Acute DS: Medications Discharge Medications Home Medications: Previous Rx's Medication Instructions Recorded acetaminophen 325 mg tablet 650 mg (2 x 325 mg) PO Q6H PRN 06/14/23 Headache/Pain Mild Scale (1-3) #0 tabs aluminum-magnesium hydroxide 200 30 ml PO Q6H PRN Heartburn/Nausea 06/14/23 mg-200 mg/5 mL oral suspension #0 mL (MAG-AL) magnesium hydroxide 400 mg/5 mL 30 ml PO DAILY PRN Constipation #0 06/14/23 oral suspension (Milk of Magnesia) mL cariprazine 1.5 mg capsule 1.5 mg PO DAILY 30 days #30 caps 07/14/23 (Vraylar) clonidine 0.2 mg/24 hr weekly 0.2 mg transdermal We@0900 30 days 07/14/23 transdermal patch #4 ea donepezil 10 mg tablet 10 mg PO BEDTIME 30 days #30 tabs 07/14/23 folic acid 1 mg tablet 1 mg PO DAILY #90 tabs 07/14/23 lidocaine 4 % topical patch 1 patch transdermal DAILY 30 days 07/14/23 (Lidocaine Pain Relief) #30 ea lorazepam 0.5 mg tablet 0.5 mg PO BID PRN Anxiety 30 days 07/14/23 #60 tabs melatonin 3 mg tablet 6 mg (2 x 3 mg) PO BEDTIME PRN 07/14/23 Insomnia 30 days #60 tabs memantine 10 mg tablet (Namenda) 10 mg PO BID 30 days #60 tabs 07/14/23 quetiapine 25 mg tablet 25 mg PO DIRECTED 30 days #60 07/14/23 tabs tamsulosin 0.4 mg capsule 0.4 mg PO DAILY@1730 30 days #30 07/14/23 caps thiamine mononitrate (vit B1) 100 100 mg PO BID #60 tabs 07/14/23 mg tablet vortioxetine 10 mg tablet 10 mg PO DAILY 30 days #30 tabs 07/14/23 (Trintellix) Mental Status Exam Mental Status Exam Narrative: groomed, and dressed in bed good eye contact Patient Appearance: Appropriate Patient Orientation: Person and Place Level of Consciousness: Awake Patient Behavior: Dependent and Passive Mood Description: Withdrawn Affect Description: Flat Patient Cognition Impaired: Yes Ability to Follow Directions: Fair Speech Pattern: Clear and Impoverished Hallucinations: None Thought Process: Intact Thought Content: positive for [place] and positive for Poverty of Content Depressive Symptoms: Back Pain Judgement: Poor Data Data Completed and Pending Completed studies during hospitalization [Text1]: 07/14/23 10:57 Sodium 141 Potassium 4.5 Chloride 102 Carbon Dioxide 29 Anion Gap 15 BUN 9 Creatinine 0.83 Estim Creat Clear Calc 52.0 Estimated GFR > 60 Random Glucose 101 Calcium 10.0 D Total Bilirubin 0.5 AST 18 ALT 28 Alkaline Phosphatase 94 Total Protein 7.8 Albumin 3.7 Imaging Diagnostic Imaging Impressions Lumbar Spine X-Ray 07/09/23 17:14 IMPRESSION: 1. No acute fracture or dislocation. 2. There is loss of L2 vertebral height with remote cement augmentation. 3. There is loss of L1, T12 and T11 vertebral heights, likely old. DS: Summary Hospital Course Hospital Course: Psychiatry Admission Note (In) Signed Patient: Judy Rodrigues MR#: [id number] : 1950 Acct:[id number] Age/Sex: 72 / F Loc: HO.PGERI 181-[address]: Broderick Willett MD cc: Broderick Willett MD~ [facility] Date of Service: 06/24/23 Chief Complaint: Severe depression with psychotic features Sources of Information: patient interviewed and chart reviewed Additional Sources of Information: Patient well known to this aligner typewriter doc to doc completed with Dr. Silver patient seen at noon case reviewed with Dr. Silver HPI Subjective Notes: Section 8 Narrative: The patient is a 72-year-old female with a history of psychotic depression with history of mixed states initially admitted to the psychiatric unit on M 5 secondary to severe depression and patient had been agreeable to ECT. She had been treated outpatient had been stable for an extended period of time on Trintellix doxepin caplyta. Patient became increasingly depressed perhaps in the context of seasonal effects and also recently here had been diagnosed with some neurological illness. The patient while on the psych unit had 1 unilateral ECT treatment and after this aligner typewriter went on vacation the patient began to refuse food and fluids and refused medication. She was noted to have an acute change in renal function required IV fluids and also had an episode of urinary retention. Patient was treated on the medical floor and stabilized began to eat and drink again and had been off almost all of her medications which also included Aricept and Namenda. Civil commitment and treatment order paperwork had been filed and was approved this includes electroconvulsive therapy. In general by history when the patient has had a psychotic depression she generally only responded to the addition of ECT which she has had multiple times in the past we have type try to use unilateral The patient also had had an episode of hypokalemia she on the medical floor CBC chemistries generally unremarkable seems to have stabilized patient delusional concerned that God wants her or that she is and given that she was refusing food fluid and medication self commitment and treatment order were obtained Past Psychiatric History: Patient with long history of recurrent depression with multiple prior psychiatric hospitalizations. 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 no classic bipolar symptoms past depressive psychotic episodes not for a number of years Medical Evaluation Reviewed: Yes FOR[facility]LY [facility] Medical History Dementia Severe recurrent major depression w/psychotic features, mood-congruent Has daytime drowsiness Nocturnal hypoxia Preoperative examination Elevated glucose Screening for colon cancer Screening for diabetes mellitus Obesity (BMI 30-39.9) Confused but orients easily Depression, major, severe recurrence Abnormal serum protein electrophoresis Mild recurrent major depression Anxiety and depression Encounter for Medicare annual wellness exam Removal of nell Depression with anxiety Abdominal distention Weight gain Major depression, recurrent, full remission POONAM (generalized anxiety disorder) Hypothyroidism Hyperparathyroidism Multinodular thyroid Vitamin D deficiency Osteoporosis Surgical History Hx of colonoscopy Hx of kyphoplasty Hx of section Social History: Patient disabled has 1 son. Chronic anxiety has an intermittent difficult relationship with her mostly has not worked Trauma History: None noted Meds/Allergies Meds Home Medications Medication Instructions Recorded Confirmed Type doxepin 25 mg capsule 50 mg PO BEDTIME 06/15/23 06/15/23 History lumateperone 21 mg capsule 21 mg PO DAILY@1700 06/15/23 06/15/23 History memantine 5 mg tablet 10 mg PO BID 06/15/23 06/15/23 History Allergies Allergies Allergy/AdvReac Type Severity Reaction Status Date / Time risperidone [From Risperdal] Allergy Intermediate UNKNOWN Verified 05/12/23 13:13 Sulfa (Sulfonamide Allergy Intermediate rash Verified 05/12/23 13:13 Antibiotics) From BENADRYL Allergy Intermediate DIZZY Uncoded 02/14/23 11:47 Mental Status Exam Mental Status Exam Narrative: The patient is seen in her room she is wearing hospital garb she has an obvious withdrawal oral facial dyskinesia. Her mood is depressed and anxious her attention variable. At times she is able to say that she is quite depressed and what is going help her at other times saying that she is that she is short of breath and dying and becomes illogical and confused she does seem supported thought of being on the psychiatric unit again she goes back and forth regarding the possibility of ECT although she is able to take in the reminder that she has responded quite well in the past to ECT she is complaining of some back pain impulse control judgment severely impaired Assessment & Plan Patient educated on: diagnosis, medication risk/benefits, substance abuse, ECT and medical condition Informed Consent: does not understand Reason for continued inpatient stay Substantial Risk for: harm to self, inability to function and med/psych decompensation Statement Statement: I have reviewed the history and physical and performed a pertinent examination on my patient. No changes have occurred unless specified. If the History and Physical was not performed prior to admission, the Hospitalist's service will be consulted for completing the admission physical. Time Spent With Patient Time: Total time managing care of this patient today 60____ minutes.06/24/23 HOSPITAL COURSE Allergy/AdvReac Type Severity Reaction Status Date / Time risperidone [From Risperdal] Allergy Intermediate UNKNOWN Verified 05/12/23 13:13 Sulfa (Sulfonamide Allergy Intermediate rash Verified 05/12/23 13:13 Antibiotics) From BENADRYL Allergy Intermediate DIZZY Uncoded 02/14/23 11:47 Assessment & Plan Assessment & Plan (1) Severe recurrent major depression w/psychotic features, mood-congruent: Status: Acute Code(s): F33.3 - Major depressive disorder, recurrent, severe with psychotic symptoms (2) POONAM (generalized anxiety disorder): Status: Acute Code(s): F41.1 - Generalized anxiety disorder Plan Patient is severely depressed depressive psychotic symptoms thinking she is that God wants her labile mood thought disorganization scheduled for ECT in am has generally done well with ECT. 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 06/26/2023 Patient had ECT some confusion post ECT monitor for residual symptoms and clearing encourage food and fluids 06/27 continue current treatment plan 06/28 continue current treatment plan; ECT scheduled for Thursday06/30/2023 Patient remains severely depressed had missed doses of Namenda and Aricept which may have worsened confusion has been restarted encourage continue medication acceptance scheduled for unilateral ECT tomorrow has generally done well with ECT in the past 07/01/23 see ect note monitor for worsening delerium or confusion 07/02/2023 Continue ECT discharge planning monitor for worsening confusion 07/07/2023 Continue ECT re-evaluate continue discharge planning Vraylar Trintellix 07/08/23 cont plan of care 07/09/23 reval need for further ect ls xr no acute fx might benefit from pt outpt inc namenda d/c planning 07/11: stable, continue current mgmt. 07/12: no change, continue current mgmt. 07/13/2023 Patient seems stable for discharge in a.m. will try to transition to outpatient ECT The same patient seem to be able to self-care was able to dress and feed herself. She clearly had had a deterioration cognitive status has attention short-term memory. She did seem to be able to understand and make basic decisions her was reportedly going to manage her medications patient unfortunately did not quarterly qualify for VNA the patient's has been visiting regularly. We were able to avoid regular ECT she seemed to stabilize on a combination of Trintellix and Vraylar maintenance ect scheduled Status at Discharge Cognitive/behavioral status at discharge: Patient flat somewhat blunted she was alert ambulating on her own on the unit Functional status at discharge: independent ambulation Overall status at discharge: patient is not back to baseline Time Spent with Patient Time attestation: Total time managing care of this patient today ____ minutes. Discharge Plan Discharge Anticipated Discharge Date/Time: 07/14/23 11:26 Patient Disposition: Home, Self-Care Discharge Diagnosis: major depression with psychotic fx mixed states Hypertension Generalized anxiety Dementia complicated by severe depression Referrals: Dr. Rodriguez - PCP [Other] - 07/27/23 9:00 am (Appointment in-person. 07/27/2023 @ 9am ) Broderick Willett MD [Physician] - 07/23/23 3:30 pm Discharge Medications: New clonidine 0.2 mg/24 hr Patch Weekly 0.2 mg transdermal We@0900 30 Days Qty: 4 3RF Protocol: Hold for SBP< HOLD for SBP < : 90 donepezil 10 mg Tablet 10 mg PO BEDTIME 30 Days Qty: 30 3RF tamsulosin 0.4 mg Capsule 0.4 mg PO DAILY@1730 30 Days Qty: 30 3RF quetiapine 25 mg Tablet 25 mg PO DIRECTED 30 Days Qty: 60 3RF Rx Instructions: 1 tab bedtime may take one extra tablets daily for severe anxiety/ insomnia lidocaine [Lidocaine Pain Relief] 4 % Adhesive Patch,Medicated 1 patch transdermal DAILY 30 Days Qty: 30 3RF Protocol: Apply to: Apply to: affected pain area melatonin 3 mg Tablet 6 mg PO BEDTIME PRN (Reason: Insomnia) 30 Days Qty: 60 0RF memantine [Namenda] 10 mg Tablet 10 mg PO BID 30 Days Qty: 60 3RF Trintellix 10 mg Tablet 10 mg PO DAILY 30 Days Qty: 30 3RF Vraylar 1.5 mg Capsule 1.5 mg PO DAILY 30 Days Qty: 30 3RF Continued acetaminophen 325 mg Tablet 650 mg PO Q6H PRN (Reason: Headache/Pain Mild Scale (1-3)) Qty: 0 0RF magnesium hydroxide [Milk of Magnesia] 400 mg/5 mL Suspension 30 ml PO DAILY PRN (Reason: Constipation) Qty: 0 0RF MAG-AL 200-200 mg/5 mL Suspension 30 ml PO Q6H PRN (Reason: Heartburn/Nausea) Qty: 0 0RF folic acid 1 mg tablet 1 mg PO DAILY Qty: 90 1RF thiamine mononitrate (vit B1) 100 mg Tablet 100 mg PO BID Qty: 60 3RF Changed lorazepam 0.5 mg Tablet 0.5 mg PO BID PRN (Reason: Anxiety) 30 Days Qty: 60 1RF Discontinued Trintellix 20 mg tablet 20 mg PO DAILY Qty: 90 1RF quetiapine 25 mg Tablet 25 mg PO BEDTIME Qty: 0 0RF quetiapine 25 mg Tablet 25 mg PO Q6H PRN (Reason: Anxiety/Restlessness) Qty: 0 0RF donepezil 5 mg Tablet 5 mg PO BEDTIME Qty: 0 0RF propranolol 10 mg Tablet 10 mg PO BID Qty: 0 0RF Protocol: Hold for SBP/HR < HOLD for SBP < : 90 HOLD for HR < : 60 nystatin 100,000 unit/gram Cream 1 appl topical BID Qty: 0 0RF Protocol: Apply to: Apply to: affected areas behind her knees doxepin 25 mg capsule 50 mg PO BEDTIME memantine 5 mg tablet 10 mg PO BID lumateperone 21 mg capsule 21 mg PO DAILY@1700 lorazepam 0.5 mg Tablet 0.5 mg PO DAILY PRN (Reason: anxiety/agitation) Qty: 14 0RF Discharge Orders: Discharge Order (Routine); Ordered 07/14/23 Ordered By: Broderick Willett Diet: Advance to usual diet Activity on Discharge: As tolerated Stand Alone Forms: Patient Portal Discharge page, Community Support Print Language: Lebanese Care Plan Goals: stable mood maintain nutrition limit confusion Health Concerns: depression with psychosis Hypertension Dementia memory disorder Osteoporosis Plan of Treatment: Follow-up psychiatrist and primary care physician Take medication as prescribed Outpatient ECT Next ECT this ThursdayJuly 17 Assessment: Future oriented alert not grossly confused mood some anxiety mild dysphoria No SI no psychosis Discharge Date/Time: 07/14/23 12:16
== END 2023-07-14 12:16 | disposition home or self-care (01) | DRG 885 ==
PROVIDERS: Psychiatry & Neurology Psychiatry; Social Worker; Admitting Provider Psychiatry & Neurology Psychiatry; Visit Provider Psychiatry & Neurology Psychiatry
PROC: GZB4ZZZ Other Electroconvulsive Therapy (ICD-10-PCS; CPT 90870; principal; 2023-06-26 16:00)
DX: F33.3 Major depressive disorder, recurrent, severe with psychotic symptoms (principal); I10 Essential (primary) hypertension; F03.90 Unspecified dementia, unspecified severity, without behavioral disturbance, psychotic disturbance, mood disturbance, and anxiety; F41.1 Generalized anxiety disorder; Z20.822 Contact with and (suspected) exposure to COVID-19; Z79.899 Other long term (current) drug therapy
CPT/HCPCS: 36415; 72100; 80048; 80053; 80061; 80076; 80307; 81001; 83735; 84443; 85025; 87086; 87088; 87186; 87635; 90870; 93005; 99285; J0330; J1596; J1805; J2704; J7120

== ENCOUNTER → 2023-06-24 17:54 | Outpatient (BNV) | payer MEDICARE, SELFPAY | PROVIDERS: Admitting Provider Psychiatry & Neurology Psychiatry; Visit Provider Psychiatry & Neurology Psychiatry | DX: F33.3 Major depressive disorder, recurrent, severe with psychotic symptoms (principal); F41.1 Generalized anxiety disorder | CPT/HCPCS: 90870; 99231 ==

== ENCOUNTER → 2023-06-24 17:54 | Outpatient (BNV) | payer MEDICARE, MEDICAID, SELFPAY | PROVIDERS: Admitting Provider Psychiatry & Neurology Psychiatry; Visit Provider Psychiatry & Neurology Psychiatry | DX: F33.3 Major depressive disorder, recurrent, severe with psychotic symptoms (principal); F41.1 Generalized anxiety disorder; F03.A0 Unspecified dementia, mild, without behavioral disturbance, psychotic disturbance, mood disturbance, and anxiety; M47.816 Spondylosis without myelopathy or radiculopathy, lumbar region | CPT/HCPCS: 90792; 90870; 99231; 99232; 99238 ==

== ENCOUNTER → 2023-07-15 17:46 | Outpatient (BNVA) | payer MEDICARE, OTHER, SELFPAY | PROVIDERS: PCP Internal Medicine; Visit Provider Psychiatry & Neurology Psychiatry ==

== ENCOUNTER 2023-07-16 09:55 | Inpatient (IN) | payer MEDICARE, OTHER, SELFPAY ==
[2023-07-16 10:09] VITALS: BP 132/87; PULSE 129; RESP 18; TEMP 36.3; O2SAT 95; BMI 23.8
--- NOTE | 2023-07-16 10:15 | ECG_ITS ---
Test Reason : qt interval Blood Pressure : / mmHG Vent. Rate : 101 BPM Atrial Rate : 101 BPM P-R Int : 132 ms QRS Dur : 068 ms QT Int : 330 ms P-R-T Axes : 064 015 051 degrees QTc Int : 427 ms Sinus tachycardia Otherwise normal ECG When compared with ECG of 25-JUN-2023 18:14, No significant changes seen Referred By: Sarah Mendoza Electronically Signed By:ELISE WEI
--- NOTE | 2023-07-16 10:30 | PC.NURSE ---
Judy was BIBA after recent discharge home from [facility]. Judy's family reports she is having increased anxiety and is not sleeping. They are concerned she was prematurely discharged and needs more services in place to be able to be successful at home. Judy is cooperative with casino change attendant and labs. Gait appears slow but steady.
[2023-07-16 10:39] LABS: MANUAL DIFF FLAG NO
[2023-07-16 10:42] LABS: Basophils Absolute Auto 0.1 X10*3/uL (0.0-0.2); Basophils Percent Auto 0.4 % (0-2); Hematocrit 44.9 % (37.0-47.0); Hemoglobin 14.7 g/dl (12.0-16.0); Imm Gran Abs Auto 0.12 X10*3/uL (0.00-0.03); Imm Gran Pct Auto 0.9 % (0.0-0.4); Lymphocytes Percent Auto 7.4 % (20-40); Mean Corpuscular HGB Conc 32.7 g/dl (31.0-35.0); Mean Corpuscular Hemoglobin 30.2 pg (27.0-33.0); Mean Corpuscular Volume 92.2 fL (80.0-98.0); Mean Platelet Volume 9.5 fL (9.4-12.3); Monocytes Absolute Auto 0.7 X10*3/uL (0.1-1.2); Monocytes Percent Auto 5.2 % (2-11); Neutrophils Percent Auto 86.1 % (45-73); Platelet Count 437 X10*3/uL (160-400); Red Blood Count 4.87 X10*6/uL (4.20-5.50); Red Cell Distribution Width 15.9 % (11.0-16.0); White Blood Count 13.9 X10*3/uL (4.8-10.8)
[2023-07-16 10:43] LABS: Appearance Urine Cloudy; Color Urine Yellow; Glucose Urine UA Negative (Negative); Leukocyte Esterase Urine Large (3+) (Negative); Nitrite Urine Negative (Negative); PH 6.5 (5.0-9.0); Specific Gravity - Urine 1.015 (1.005-1.025); UMIC TRIGGER UACC YES; Urine Blood Negative (Negative); Urine Ketones Negative (Negative); Urine Protein Trace mg/dL (Neg-Trace)
[2023-07-16 10:47] LABS: Amphetamine Screen Urine Not Detected (Not Detect); Barbiturates, Urine Not Detected (Not Detect); Benzodiazepines Screen Urine Not Detected (Not Detect); Cannabinoid Screen Urine Not Detected (Not Detect); Cocaine Screen Urine Not Detected (Not Detect); Fentanyl, urine Not Detected (Not Detect); Opiate Screen Urine Not Detected (Not Detect); Phencyclidine Screen Urine Not Detected (Not Detect)
[2023-07-16 10:51] LABS: Bacteria Urine 1+ (None Seen); Hyaline Casts Urine 0-2 /LPF (0-2); RBC Urine 0-2 /HPF (0-2); UACC Culture Trigger YES; WBC Urine >50 /HPF (0-5)
[2023-07-16 10:53] LABS: COVID-19 Test Negative (Negative); IDNOW Serial# 152EDE1D
--- NOTE | 2023-07-16 10:57 | ED_ITS ---
HPI - Psych General Chief Complaint: Psychiatric Symptoms Stated Complaint: ANXIETY,DEPRESSED,NO SLEEP X'S DAYS PER EMS Time Seen by Provider: 07/16/23 10:00 Source: patient and old records reviewed Mode of arrival: EMS Limitations: no limitations History of Present Illness HPI Narrative: 72 yo female with PMH of anxiety, hypothyroidism, cognitive impairment, depression now here with c/o increased anxiety stating she cannot sleep no SI. reportedly patient is to be re-admitted for further care. Just left inpatient MD complaint: anxiety Onset (ago): week(s) Duration: intermittent History of same: Yes Relieving factors: none Exacerbating factors: other Associated psychiatric symptoms: depression Associated symptoms: denies other symptoms Treatments prior to arrival: none Related Data Previous Rx's Medication Instructions Recorded acetaminophen 325 mg tablet 650 mg (2 x 325 mg) PO Q6H PRN 06/14/23 Headache/Pain Mild Scale (1-3) #0 tabs aluminum-magnesium hydroxide 200 30 ml PO Q6H PRN Heartburn/Nausea 06/14/23 mg-200 mg/5 mL oral suspension #0 mL (MAG-AL) magnesium hydroxide 400 mg/5 mL 30 ml PO DAILY PRN Constipation #0 06/14/23 oral suspension (Milk of Magnesia) mL cariprazine 1.5 mg capsule 1.5 mg PO DAILY 30 days #30 caps 07/14/23 (Vraylar) clonidine 0.2 mg/24 hr weekly 0.2 mg transdermal We@0900 30 days 07/14/23 transdermal patch #4 ea donepezil 10 mg tablet 10 mg PO BEDTIME 30 days #30 tabs 07/14/23 folic acid 1 mg tablet 1 mg PO DAILY #90 tabs 07/14/23 lidocaine 4 % topical patch 1 patch transdermal DAILY 30 days 07/14/23 (Lidocaine Pain Relief) #30 ea lorazepam 0.5 mg tablet 0.5 mg PO BID PRN Anxiety 30 days 07/14/23 #60 tabs melatonin 3 mg tablet 6 mg (2 x 3 mg) PO BEDTIME PRN 07/14/23 Insomnia 30 days #60 tabs memantine 10 mg tablet (Namenda) 10 mg PO BID 30 days #60 tabs 07/14/23 quetiapine 25 mg tablet 25 mg PO DIRECTED 30 days #60 07/14/23 tabs tamsulosin 0.4 mg capsule 0.4 mg PO DAILY@1730 30 days #30 07/14/23 caps thiamine mononitrate (vit B1) 100 100 mg PO BID #60 tabs 07/14/23 mg tablet vortioxetine 10 mg tablet 10 mg PO DAILY 30 days #30 tabs 07/14/23 (Trintellix) Allergies Allergy/AdvReac Type Severity Reaction Status Date / Time risperidone [From Risperdal] Allergy Intermediate UNKNOWN Verified 05/12/23 13:13 Sulfa (Sulfonamide Allergy Intermediate rash Verified 05/12/23 13:13 Antibiotics) From BENADRYL Allergy Intermediate DIZZY Uncoded 02/14/23 11:47 Review of Systems 2 Review of Systems: Constitutional : No Fever, No Chills ENT/Mouth : No Ear Pain, No Nasal Congestion, No sore throat Eyes: No Eye Pain, No Swelling, No Redness Cardiovascular : No Chest Pain, No SOB Respiratory : No Cough, No Sputum, No Dyspnea Gastrointestinal : No Nausea, No Vomiting, No Diarrhea, No Hematochezia, No Melena Genitourinary : No Dysuria, No Urinary Frequency, No Hematuria Musculoskeletal : No Myalgias Skin : No Skin Lesions, No rash Neuro : No Weakness, No Numbness, No Paresthesias, No Dizziness, No Headache Psych : positive Anxiety, positive Depression, no SI/HI All other systems reviewed and are negative PMFSH Past Medical History Medical History Dementia Severe recurrent major depression w/psychotic features, mood-congruent Has daytime drowsiness Nocturnal hypoxia Preoperative examination Elevated glucose Screening for colon cancer Screening for diabetes mellitus Obesity (BMI 30-39.9) Confused but orients easily Depression, major, severe recurrence Abnormal serum protein electrophoresis Mild recurrent major depression Anxiety and depression Encounter for Medicare annual wellness exam Removal of nell Depression with anxiety Abdominal distention Weight gain Major depression, recurrent, full remission POONAM (generalized anxiety disorder) Hypothyroidism Hyperparathyroidism Multinodular thyroid Vitamin D deficiency Osteoporosis Surgical History Hx of colonoscopy Hx of kyphoplasty Hx of section Family History Family History Father Myocardial infarction CVD (cardiovascular disease) Mother Dementia Alzheimer disease Other Mental health disorder Social History Social History Household Members: Spouse Housing: House Do you presently have visiting nurse or other home services: Yes Alcohol intake: never Comment: 1:1 sitter at bedside Patient Tobacco Use Status: Never used Tobacco e-Cigarette/Vaping Use: Never Used Second Hand Smoke Exposure: No Advance Directives: No Advance Directives Information Provided: No Healthcare Proxy: Yes service: No Current occupational status: unemployed Sexual orientation: Straight/Heterosexual Cognitive needs: No Hearing needs: No Physical Exam 2 Vital Signs: Vital Signs: Last Vital Signs Temp 97.4 F 07/16/23 10:09 Pulse 129 H 07/16/23 10:09 Resp 18 07/16/23 10:09 BP 132/87 07/16/23 10:09 Pulse Ox 95 07/16/23 10:09 O2 Del Method Room Air 07/16/23 10:09 BMI result Body Mass Index 23.8 Appearance: Alert. Oriented X2. No acute distress. Eyes: Pupils equal, round and reactive to light. ENT: Pharynx normal. Neck: Normal inspection. Neck supple. CVS: Normal heart rate and rhythm. Pulses normal. Respiratory: No respiratory distress. Breath sounds normal. Abdomen: Soft and nontender. Skin: Skin warm and dry. Normal skin color. Normal skin turgor. Extremities: No lower extremity edema. No calf ttp Neuro: Oriented X 2. No motor deficit. No sensory deficit. CN2-12 intact Course Course Course Narrative: Physician observation started at 1109am Patient placed in physician observation because the patient needed more time for work up and admission to psychiatric floor. At the time observation was started the patient's vitals were stable, patient is alert and oriented x 2, anxiousNeuro: nonfocal, CV RRR, Lungs clear Reevaluation(s) Reevaluation #1: Physician observation ended at 2pm patient to be admitted Medications Administered Generic Name Dose Route Start Last Admin Trade Name Freq PRN Reason Stop Dose Admin Cefuroxime Axetil 250 mg 07/16/23 11:00 07/16/23 11:02 Cefuroxime Axetil 250 Mg Tablet PO 07/22/23 21:01 250 mg BID BARRY Administration Medical Decision Making Medical Decision Making MDM Narrative: 72 yo female with PMH of anxiety, hypothyroidism, cognitive impairment, depression just discharged 1.5 days ago from inpatient adult psychiatric care here with c/o anxiety and difficulty sleeping at this time will need basic labs UA and reportedly plan is to admit once medically cleared Differential Diagnosis Differential Diagnoses: The differential diagnosis associated with the presentation includes anxiety, depression, UTI Admission/Observation Consideration of admission/observation: Escalation of care including admission/observation considered admit for inpatient psychiatry Consult Healthcare Provider Management of the patient was discussed with: Behavioral Health Provider Lab Data MDM Lab Attestation statement: I reviewed the patient's lab results. 07/16/23 10:34 07/16/23 10:34 Labs: Lab Results 07/16/23 07/16/23 Range/Units 10:30 10:34 WBC 13.9 H (4.8-10.8) X10*3/uL RBC 4.87 (4.20-5.50) X10*6/uL Hgb 14.7 (12.0-16.0) g/dl Hct 44.9 (37.0-47.0) % MCV 92.2 (80.0-98.0) fL MCH 30.2 (27.0-33.0) pg MCHC 32.7 (31.0-35.0) g/dl RDW 15.9 (11.0-16.0) % Plt Count 437 H D (160-400) X10*3/uL MPV 9.5 (9.4-12.3) fL Immature Gran % (Auto) 0.9 H (0.0-0.4) % Neut % (Auto) 86.1 H (45-73) % Lymph % (Auto) 7.4 L (20-40) % [place] % (Auto) 5.2 (2-11) % Eos % (Auto) 0.0 (0-4) % Baso % (Auto) 0.4 (0-2) % Lymph # (Auto) 1.0 L (1.2-4.9) X10*3/uL [place] # (Auto) 0.7 (0.1-1.2) X10*3/uL Eos # (Auto) 0.0 (0.0-0.4) X10*3/uL Baso # (Auto) 0.1 (0.0-0.2) X10*3/uL Abs Immat Gran (auto) 0.12 H (0.00-0.03) X10*3/uL Absolute Neuts (auto) 12.0 H (2.0-8.3) x10*3/uL Absolute Nucleated RBC 0.000 (0.0-0.012) X10*3/uL Nucleated RBC % (auto) 0.0 (0.0-0.2) /100WBC Sodium 139 (135-145) mmol/L Potassium 4.1 (3.3-5.1) mmol/L Chloride 103 (96-108) mmol/L Carbon Dioxide 25 (22-29) mmol/L Anion Gap 15 (12-20) BUN 13 (9-16) mg/dL Creatinine 0.89 (0.5-1.4) mg/dL Estim Creat Clear Calc 45.8 Estimated GFR > 60 Random Glucose 160 H (60-115) mg/dL Calcium 10.1 (8.4-10.2) mg/dL Magnesium 1.9 (1.6-2.6) mg/dL Total Bilirubin 0.3 (0.0-1.0) mg/dL Direct Bilirubin 0.1 (0.0-0.5) mg/dL AST 16 (5-31) U/L ALT 22 (0-31) U/L Alkaline Phosphatase 86 (39-117) U/L Total Protein 7.5 (6.5-8.0) g/dL Albumin 3.7 (3.5-5.0) g/dL TSH 2.05 (0.32-4.0) uIU/mL Urine Color Yellow Urine Appearance Cloudy Urine pH 6.5 (5.0-9.0) Ur Specific [place] 1.015 (1.005-1.025) Urine Protein Trace (Neg-Trace) mg/dL Urine Glucose (UA) Negative (Negative) mg/dL Urine Ketones Negative (Negative) mg/dL Urine Blood Negative (Negative) Urine Nitrite Negative (Negative) Ur Leukocyte Esterase Large (3+) H (Negative) Urine RBC 0-2 (0-2) /HPF Urine WBC >50 H (0-5) /HPF Ur Squamous Epith Cells 6-10 (0-2) /HPF Urine Bacteria 1+ (None Seen) Hyaline Casts 0-2 (0-2) /LPF Urine Opiates Screen Not Detected (Not Detect) Urine Fentanyl Screen Not Detected (Not Detect) Ur Barbiturates Screen Not Detected (Not Detect) Ur Phencyclidine Scrn Not Detected (Not Detect) Ur Amphetamines Screen Not Detected (Not Detect) U Benzodiazepines Scrn Not Detected (Not Detect) Urine Cocaine Screen Not Detected (Not Detect) U Marijuana (THC) Screen Not Detected (Not Detect) Ethyl Alcohol < 10 mg/dL COVID-19 (EMILIANA) Negative (Negative) COVID-19 Clin Com See Note Independent Interpretation I performed an independent interpretation of an: EKG Interpretation: Rate: 101 Rhythm: sinus tachycardia [place]: normal Normal P waves. Normal JOY. Normal QRS complex. ST T wave : no KARRIE qTC: 427 prior studies: no acute ischemia The study has been interpreted contemporaneously by me. . Discharge Plan Discharge Clinical Impression: Anxiety, Acute UTI Patient Disposition: Admitted As Inpatient Interventions: [place]-Suicide Risk Severity Scale Last Done: 07/16/23 14:08 Admission Worksheet (ED) Last Done: 07/16/23 14:11 Discharge Date/Time: 07/16/23 14:12
[2023-07-16] MEDS: cefuroxime axetiL 250 MG TABLET PO ×2 (11:02→21:05)
[2023-07-16 11:04] LABS: Alanine Aminotransferase 22 U/L (0-31); Albumin Level 3.7 g/dL (3.5-5.0); Alkaline Phosphatase 86 U/L (39-117); Anion Gap 15 (12-20); Aspartate Amino Transferase 16 U/L (5-31); Bilirubin Direct 0.1 mg/dL (0.0-0.5); Bilirubin Total 0.3 mg/dL (0.0-1.0); Blood Urea Nitrogen 13 mg/dL (9-16); Calcium 10.1 mg/dL (8.4-10.2); Carbon Dioxide 25 mmol/L (22-29); Chloride 103 mmol/L (96-108); Creatinine Clr Calc Pharmacy 45.8; Estimated Glomerular Filt Rate > 60; Ethanol < 10 mg/dL; Glucose Random 160 mg/dL (60-115); Magnesium 1.9 mg/dL (1.6-2.6); Potassium 4.1 mmol/L (3.3-5.1); Sodium 139 mmol/L (135-145); Total Protein 7.5 g/dL (6.5-8.0)
[2023-07-16 11:14] LABS: TSH reflex Free T4 2.05 uIU/mL (0.32-4.0)
[2023-07-16 14:15] VITALS: BP 125/84; PULSE 130; RESP 18; TEMP 36.3; O2SAT 96
[2023-07-16 14:37] VITALS: BMI 26.0
--- NOTE | 2023-07-16 15:41 | P.HPPS_ITS ---
HPI Chief Complaint: mood disorder HPI Past Psychiatric History: Patient with long history of recurrent depression with multiple prior psychiatric hospitalizations. 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 no classic bipolar symptoms past depressive psychotic episodes not for a number of years PENDING SALE TO [facility] Medical History Dementia Severe recurrent major depression w/psychotic features, mood-congruent Has daytime drowsiness Nocturnal hypoxia Preoperative examination Elevated glucose Screening for colon cancer Screening for diabetes mellitus Obesity (BMI 30-39.9) Confused but orients easily Depression, major, severe recurrence Abnormal serum protein electrophoresis Mild recurrent major depression Anxiety and depression Encounter for Medicare annual wellness exam Removal of nell Depression with anxiety Abdominal distention Weight gain Major depression, recurrent, full remission POONAM (generalized anxiety disorder) Hypothyroidism Hyperparathyroidism Multinodular thyroid Vitamin D deficiency Osteoporosis Surgical History Hx of colonoscopy Hx of kyphoplasty Hx of section Social History: Patient disabled has 1 son. Chronic anxiety has an intermittent difficult relationship with her mostly has not worked Trauma History: None noted Diagnostics Vital Signs (24Hr): Vital Signs - 24 hr 07/16/23 10:09 Temperature 97.4 F Pulse Rate 129 H Respiratory Rate 18 Blood Pressure 132/87 Pulse Oximetry 95 Oxygen Delivery Method Room Air BMI result Body Mass Index 26.0 Labs 07/16/23 10:34 07/16/23 10:34 Labs: Laboratory Results - last 48 hr 07/16/23 07/16/23 10:30 10:34 WBC 13.9 H RBC 4.87 Hgb 14.7 Hct 44.9 MCV 92.2 MCH 30.2 MCHC 32.7 RDW 15.9 Plt Count 437 H D MPV 9.5 Immature Gran % (Auto) 0.9 H Neut % (Auto) 86.1 H Lymph % (Auto) 7.4 L [place] % (Auto) 5.2 Eos % (Auto) 0.0 Baso % (Auto) 0.4 Lymph # (Auto) 1.0 L [place] # (Auto) 0.7 Eos # (Auto) 0.0 Baso # (Auto) 0.1 Abs Immat Gran (auto) 0.12 H Absolute Neuts (auto) 12.0 H Absolute Nucleated RBC 0.000 Nucleated RBC % (auto) 0.0 Sodium 139 Potassium 4.1 Chloride 103 Carbon Dioxide 25 Anion Gap 15 BUN 13 Creatinine 0.89 Estim Creat Clear Calc 45.8 Estimated GFR > 60 Random Glucose 160 H Calcium 10.1 Magnesium 1.9 Total Bilirubin 0.3 Direct Bilirubin 0.1 AST 16 ALT 22 Alkaline Phosphatase 86 Total Protein 7.5 Albumin 3.7 TSH 2.05 Urine Color Yellow Urine Appearance Cloudy Urine pH 6.5 Ur Specific [place] 1.015 Urine Protein Trace Urine Glucose (UA) Negative Urine Ketones Negative Urine Blood Negative Urine Nitrite Negative Ur Leukocyte Esterase Large (3+) H Urine RBC 0-2 Urine WBC >50 H Ur Squamous Epith Cells 6-10 Urine Bacteria 1+ Hyaline Casts 0-2 Urine Opiates Screen Not Detected Urine Fentanyl Screen Not Detected Ur Barbiturates Screen Not Detected Ur Phencyclidine Scrn Not Detected Ur Amphetamines Screen Not Detected U Benzodiazepines Scrn Not Detected Urine Cocaine Screen Not Detected U Marijuana (THC) Screen Not Detected Ethyl Alcohol < 10 COVID-19 (EMILIANA) Negative COVID-19 Clin Com See Note Meds/Allergies Allergies Allergies Allergy/AdvReac Type Severity Reaction Status Date / Time risperidone [From Risperdal] Allergy Intermediate UNKNOWN Verified 05/12/23 13:13 Sulfa (Sulfonamide Allergy Intermediate rash Verified 05/12/23 13:13 Antibiotics) From BENADRYL Allergy Intermediate DIZZY Uncoded 02/14/23 11:47 Assessment & Plan Statement Statement: I have reviewed the history and physical and performed a pertinent examination on my patient. No changes have occurred unless specified. If the History and Physical was not performed prior to admission, the Hospitalist's service will be consulted for completing the admission physical. Time Spent With Patient Time: Total time managing care of this patient today ____ minutes.
[2023-07-16] MEDS: cloNIDine HCL 0.1 MG TABLET PO ×2 (16:07→21:05)
[2023-07-16] MEDS: Tamsulosin HCL 0.4 MG CAPSULE PO (17:29)
--- NOTE | 2023-07-16 17:39 | PC.NURSE ---
Patient arrived to the unit at 14:15 via w/c from ED [facility]. Alert, oriented x4 to person, place, date, situation. Patient admitted to the unit d/t inability to attend her ADLs, anxiety/ depression symptoms and insomnia. Pt had previous psych admissions at [facility]. Was discharged home recently on 07/14/23. Upon admission BP 125/84, P 130, T 97.3, O2sat 96% on RA. Dr Willett notified of increased HR, new order for Clonidine 0.1mg x1. Re-check for P 99. Patient ambulatory, gait steady. Skin check completed and intact. Pt on a conditional voluntary basis.
[2023-07-16 18:00] VITALS: BP 122/65; PULSE 94; RESP 17; TEMP 36.7; O2SAT 96
[2023-07-16] MEDS: Thiamine HCL 100 MG TABLET PO (21:06)
[2023-07-16] MEDS: Memantine HCl 10 MG TABLET PO (21:06)
[2023-07-16] MEDS: Propranolol HCL 10 MG TABLET PO (21:06)
[2023-07-16] MEDS: Donepezil HCl 10 MG TABLET PO (21:06)
[2023-07-16] MEDS: QUEtiapine Fumarate 25 MG TABLET PO (21:07)
[2023-07-16] MEDS: traZODone HCL 50 MG TABLET PO (21:49)
[2023-07-17 06:00] VITALS: BP 122/66; PULSE 91; RESP 18; TEMP 36.2; O2SAT 96
[2023-07-17] MEDS: cefuroxime axetiL 250 MG TABLET PO ×2 (08:44→21:22)
[2023-07-17] MEDS: cloNIDine HCL 0.1 MG TABLET PO ×3 (08:45→21:23)
[2023-07-17] MEDS: Propranolol HCL 10 MG TABLET PO ×2 (08:45→21:23)
[2023-07-17] MEDS: Cariprazine HCl 1.5 MG CAPSULE PO (08:45)
[2023-07-17] MEDS: Thiamine HCL 100 MG TABLET PO ×2 (08:45→21:22)
[2023-07-17] MEDS: Vortioxetine Hydrobromide 10 MG TABLET PO (08:45)
[2023-07-17] MEDS: Memantine HCl 10 MG TABLET PO ×2 (08:45→21:23)
[2023-07-17] MEDS: Folic Acid 1 MG TABLET PO (08:45)
[2023-07-17] MEDS: Lidocaine 4 % Patch ADH..PATCH 1 PATCH TRANSDERMA (08:46)
[2023-07-17 09:04] LABS: Alanine Aminotransferase 24 U/L (0-31); Albumin Level 3.5 g/dL (3.5-5.0); Alkaline Phosphatase 83 U/L (39-117); Anion Gap 18 (12-20); Aspartate Amino Transferase 21 U/L (5-31); Bilirubin Total 0.5 mg/dL (0.0-1.0); Blood Urea Nitrogen 11 mg/dL (9-16); Calcium 9.8 mg/dL (8.4-10.2); Carbon Dioxide 22 mmol/L (22-29); Chloride 101 mmol/L (96-108); Cholesterol 187 mg/dL (<200); Creatinine Clr Calc Pharmacy 51.6; Estimated Glomerular Filt Rate > 60; Glucose Fasting 131 mg/dL (60-99); HDL Cholesterol 46 mg/dL (>40); LDL Cholesterol Calculated 117 mg/dL (<100); Potassium 4.3 mmol/L (3.3-5.1); Sodium 137 mmol/L (135-145); Total Protein 7.3 g/dL (6.5-8.0); Triglycerides 120 mg/dL (<150)
[2023-07-17 11:25] VITALS: BMI 26.0
--- NOTE | 2023-07-17 11:58 | MHC.CLN ---
NUTRITION DIET=REGULAR. KNOWN FROM PRIOR ADMIT. HX POOR/FAIR PO INTAKE. ADDING MAGIC CUP BID TO INCREASE NUTRITIONAL INTAKE. PROVIDES 580 KCALS, 18 G PROTEIN. SIGNIFICANT WEIGHT LOSS X 6 MONTHS, -11.8%. FOLLOW FOR INTAKE AND WEIGHT. RD TO FOLLOW WEEKLY. SEE CLINICAL NUTRITION ASSESSMENT 07/17/23.
--- NOTE | 2023-07-17 13:12 | HO.PS.ADMOP ---
HPI Date of Service: 07/17/23 Chief Complaint: mood disorder Sources of Information: patient interviewed, chart reviewed and crisis/core team assessment reviewed Additional Sources of Information: Patient seen and evaluated 11:00 this morning HPI Subjective Notes: Conditional Voluntary Past Psychiatric History: Patient with long history of recurrent depression with multiple prior psychiatric hospitalizations. 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 no classic bipolar symptoms past depressive psychotic episodes not for a number of years Medical Evaluation Reviewed: Yes uti PMFSH Medical History Dementia Severe recurrent major depression w/psychotic features, mood-congruent Has daytime drowsiness Nocturnal hypoxia Preoperative examination Elevated glucose Screening for colon cancer Screening for diabetes mellitus Obesity (BMI 30-39.9) Confused but orients easily Depression, major, severe recurrence Abnormal serum protein electrophoresis Mild recurrent major depression Anxiety and depression Encounter for Medicare annual wellness exam Removal of nell Depression with anxiety Abdominal distention Weight gain Major depression, recurrent, full remission POONAM (generalized anxiety disorder) Hypothyroidism Hyperparathyroidism Multinodular thyroid Vitamin D deficiency Osteoporosis Surgical History Hx of colonoscopy Hx of kyphoplasty Hx of section Social History: Patient disabled has 1 son. Chronic anxiety has an intermittent difficult relationship with her mostly has not worked Trauma History: None noted Diagnostics Vital Signs (24Hr): Vital Signs - 24 hr 07/16/23 14:15 07/16/23 18:00 07/17/23 06:00 Temperature 97.3 F 98.1 F 97.2 F Pulse Rate 130 H 94 91 Respiratory Rate 18 17 18 Blood Pressure 125/84 122/65 122/66 Pulse Oximetry 96 96 96 Oxygen Delivery Method Room Air Room Air Room Air BMI result Body Mass Index 26.0 Labs 07/16/23 10:34 07/17/23 08:12 Labs: Laboratory Results - last 48 hr 07/16/23 07/16/23 07/17/23 10:30 10:34 08:12 WBC 13.9 H RBC 4.87 Hgb 14.7 Hct 44.9 MCV 92.2 MCH 30.2 MCHC 32.7 RDW 15.9 Plt Count 437 H D MPV 9.5 Immature Gran % (Auto) 0.9 H Neut % (Auto) 86.1 H Lymph % (Auto) 7.4 L [place] % (Auto) 5.2 Eos % (Auto) 0.0 Baso % (Auto) 0.4 Lymph # (Auto) 1.0 L [place] # (Auto) 0.7 Eos # (Auto) 0.0 Baso # (Auto) 0.1 Abs Immat Gran (auto) 0.12 H Absolute Neuts (auto) 12.0 H Absolute Nucleated RBC 0.000 Nucleated RBC % (auto) 0.0 Sodium 139 137 Potassium 4.1 4.3 Chloride 103 101 Carbon Dioxide 25 22 Anion Gap 15 18 BUN 13 11 Creatinine 0.89 0.88 Estim Creat Clear Calc 45.8 51.6 Estimated GFR > 60 > 60 Random Glucose 160 H Fasting Glucose 131 H Calcium 10.1 9.8 Magnesium 1.9 Total Bilirubin 0.3 0.5 Direct Bilirubin 0.1 AST 16 21 ALT 22 24 Alkaline Phosphatase 86 83 Total Protein 7.5 7.3 Albumin 3.7 3.5 Triglycerides 120 Cholesterol 187 LDL Cholesterol, Calc 117 H HDL Cholesterol 46 TSH 2.05 Urine Color Yellow Urine Appearance Cloudy Urine pH 6.5 Ur Specific [place] 1.015 Urine Protein Trace Urine Glucose (UA) Negative Urine Ketones Negative Urine Blood Negative Urine Nitrite Negative Ur Leukocyte Esterase Large (3+) H Urine RBC 0-2 Urine WBC >50 H Ur Squamous Epith Cells 6-10 Urine Bacteria 1+ Hyaline Casts 0-2 Urine Opiates Screen Not Detected Urine Fentanyl Screen Not Detected Ur Barbiturates Screen Not Detected Ur Phencyclidine Scrn Not Detected Ur Amphetamines Screen Not Detected U Benzodiazepines Scrn Not Detected Urine Cocaine Screen Not Detected U Marijuana (THC) Screen Not Detected Ethyl Alcohol < 10 COVID-19 (EMILIANA) Negative COVID-19 Clin Com See Note Meds/Allergies Allergies Allergies Allergy/AdvReac Type Severity Reaction Status Date / Time risperidone [From Risperdal] Allergy Intermediate UNKNOWN Verified 05/12/23 13:13 Sulfa (Sulfonamide Allergy Intermediate rash Verified 05/12/23 13:13 Antibiotics) From BENADRYL Allergy Intermediate DIZZY Uncoded 02/14/23 11:47 Assessment & Plan Time Spent With Patient Time: Total time managing care of this patient today ____ minutes.
--- NOTE | 2023-07-17 16:32 | HO.PSYADMNOT ---
HPI Date of Service: 07/17/23 Chief Complaint: Major depression with psychotic features HPI Narrative: Spoke with heidi Past Psychiatric History: Patient with long history of recurrent depression with multiple prior psychiatric hospitalizations. 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 no classic bipolar symptoms past depressive psychotic episodes not for a number of years [facility] Medical History Dementia Severe recurrent major depression w/psychotic features, mood-congruent Has daytime drowsiness Nocturnal hypoxia Preoperative examination Elevated glucose Screening for colon cancer Screening for diabetes mellitus Obesity (BMI 30-39.9) Confused but orients easily Depression, major, severe recurrence Abnormal serum protein electrophoresis Mild recurrent major depression Anxiety and depression Encounter for Medicare annual wellness exam Removal of nell Depression with anxiety Abdominal distention Weight gain Major depression, recurrent, full remission POONAM (generalized anxiety disorder) Hypothyroidism Hyperparathyroidism Multinodular thyroid Vitamin D deficiency Osteoporosis Surgical History Hx of colonoscopy Hx of kyphoplasty Hx of section Social History: Patient disabled has 1 son. Chronic anxiety has an intermittent difficult relationship with her mostly has not worked Trauma History: None noted Diagnostics Vital Signs (24Hr): Vital Signs - 24 hr 07/16/23 18:00 07/17/23 06:00 Temperature 98.1 F 97.2 F Pulse Rate 94 91 Respiratory Rate 17 18 Blood Pressure 122/65 122/66 Pulse Oximetry 96 96 Oxygen Delivery Method Room Air Room Air BMI result Body Mass Index 26.0 Labs 07/16/23 10:34 07/17/23 08:12 Labs: Laboratory Results - last 48 hr 07/16/23 07/16/23 07/17/23 10:30 10:34 08:12 WBC 13.9 H RBC 4.87 Hgb 14.7 Hct 44.9 MCV 92.2 MCH 30.2 MCHC 32.7 RDW 15.9 Plt Count 437 H D MPV 9.5 Immature Gran % (Auto) 0.9 H Neut % (Auto) 86.1 H Lymph % (Auto) 7.4 L [place] % (Auto) 5.2 Eos % (Auto) 0.0 Baso % (Auto) 0.4 Lymph # (Auto) 1.0 L [place] # (Auto) 0.7 Eos # (Auto) 0.0 Baso # (Auto) 0.1 Abs Immat Gran (auto) 0.12 H Absolute Neuts (auto) 12.0 H Absolute Nucleated RBC 0.000 Nucleated RBC % (auto) 0.0 Sodium 139 137 Potassium 4.1 4.3 Chloride 103 101 Carbon Dioxide 25 22 Anion Gap 15 18 BUN 13 11 Creatinine 0.89 0.88 Estim Creat Clear Calc 45.8 51.6 Estimated GFR > 60 > 60 Random Glucose 160 H Fasting Glucose 131 H Calcium 10.1 9.8 Magnesium 1.9 Total Bilirubin 0.3 0.5 Direct Bilirubin 0.1 AST 16 21 ALT 22 24 Alkaline Phosphatase 86 83 Total Protein 7.5 7.3 Albumin 3.7 3.5 Triglycerides 120 Cholesterol 187 LDL Cholesterol, Calc 117 H HDL Cholesterol 46 TSH 2.05 Urine Color Yellow Urine Appearance Cloudy Urine pH 6.5 Ur Specific [place] 1.015 Urine Protein Trace Urine Glucose (UA) Negative Urine Ketones Negative Urine Blood Negative Urine Nitrite Negative Ur Leukocyte Esterase Large (3+) H Urine RBC 0-2 Urine WBC >50 H Ur Squamous Epith Cells 6-10 Urine Bacteria 1+ Hyaline Casts 0-2 Urine Opiates Screen Not Detected Urine Fentanyl Screen Not Detected Ur Barbiturates Screen Not Detected Ur Phencyclidine Scrn Not Detected Ur Amphetamines Screen Not Detected U Benzodiazepines Scrn Not Detected Urine Cocaine Screen Not Detected U Marijuana (THC) Screen Not Detected Ethyl Alcohol < 10 COVID-19 (EMILIANA) Negative COVID-19 Clin Com See Note Meds/Allergies Allergies Allergies Allergy/AdvReac Type Severity Reaction Status Date / Time risperidone [From Risperdal] Allergy Intermediate UNKNOWN Verified 05/12/23 13:13 Sulfa (Sulfonamide Allergy Intermediate rash Verified 05/12/23 13:13 Antibiotics) From BENADRYL Allergy Intermediate DIZZY Uncoded 02/14/23 11:47 Assessment & Plan Statement Statement: I have reviewed the history and physical and performed a pertinent examination on my patient. No changes have occurred unless specified. If the History and Physical was not performed prior to admission, the Hospitalist's service will be consulted for completing the admission physical. Time Spent With Patient Time: Total time managing care of this patient today ____ minutes.
--- NOTE | 2023-07-17 16:33 | HO.PSYADMNOT ---
HPI Date of Service: 07/17/23 Chief Complaint: Major depression with psychotic features Sources of Information: patient interviewed, chart reviewed and crisis/core team assessment reviewed Additional Sources of Information: Spoke with and stepson Patient seen and evaluated 07/17/2023 10:30 am HPI Subjective Notes: Conditional Voluntary Guardianship: No Medical Problems Affecting Mental Status: Yes (UTI recent ECT) Narrative: The patient was discharged from the psychiatric unit after an extensive admission on 07/14/2023. The patient has had a significant cognitive decline over the past 2-3 months some of which may relate to her refusing medication for a period of time including Aricept and Namenda and was treated for a psychotic depression. Ultimately she was taken off caplyta and doxepin and eventually responded to a combination of Vraylar Trintellix in a brief course of unilateral ECT. The patient was flat but future oriented at the time of discharge. Unfortunately she and her were unable to picker and packer her medication there appeared to be some insurance change and patient previously had been able to self medicate. She did have some problems with ambulation. 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 no classic bipolar symptoms past depressive psychotic episodes not for a number of years Medical Evaluation Reviewed: Yes UTI recent tachycardia restart clonidine restart beta-theresa PMFSH Medical History (Updated 07/17/23 @ 16:45 by Broderick Willett MD) Nocturnal hypoxia Dementia Severe recurrent major depression w/psychotic features, mood-congruent Has daytime drowsiness Preoperative examination Elevated glucose Screening for colon cancer Screening for diabetes mellitus Obesity (BMI 30-39.9) Confused but orients easily Depression, major, severe recurrence Abnormal serum protein electrophoresis Mild recurrent major depression Anxiety and depression Encounter for Medicare annual wellness exam Removal of [place] Depression with anxiety Abdominal distention Weight gain Major depression, recurrent, full remission POONAM (generalized anxiety disorder) Hypothyroidism Hyperparathyroidism Multinodular thyroid Vitamin D deficiency Osteoporosis Surgical History Hx of colonoscopy Hx of kyphoplasty Hx of section Family History: Depression Social History: Patient disabled has 1 son. Chronic anxiety has an intermittent difficult relationship with her mostly has not worked Substance History: None noted Trauma History: None noted Diagnostics Vital Signs (24Hr): Vital Signs - 24 hr 07/16/23 18:00 07/17/23 06:00 Temperature 98.1 F 97.2 F Pulse Rate 94 91 Respiratory Rate 17 18 Blood Pressure 122/65 122/66 Pulse Oximetry 96 96 Oxygen Delivery Method Room Air Room Air BMI result Body Mass Index 26.0 Labs 07/16/23 10:34 07/17/23 08:12 Labs: Laboratory Results - last 48 hr 07/16/23 07/16/23 07/17/23 10:30 10:34 08:12 WBC 13.9 H RBC 4.87 Hgb 14.7 Hct 44.9 MCV 92.2 MCH 30.2 MCHC 32.7 RDW 15.9 Plt Count 437 H D MPV 9.5 Immature Gran % (Auto) 0.9 H Neut % (Auto) 86.1 H Lymph % (Auto) 7.4 L [place] % (Auto) 5.2 Eos % (Auto) 0.0 Baso % (Auto) 0.4 Lymph # (Auto) 1.0 L [place] # (Auto) 0.7 Eos # (Auto) 0.0 Baso # (Auto) 0.1 Abs Immat Gran (auto) 0.12 H Absolute Neuts (auto) 12.0 H Absolute Nucleated RBC 0.000 Nucleated RBC % (auto) 0.0 Sodium 139 137 Potassium 4.1 4.3 Chloride 103 101 Carbon Dioxide 25 22 Anion Gap 15 18 BUN 13 11 Creatinine 0.89 0.88 Estim Creat Clear Calc 45.8 51.6 Estimated GFR > 60 > 60 Random Glucose 160 H Fasting Glucose 131 H Calcium 10.1 9.8 Magnesium 1.9 Total Bilirubin 0.3 0.5 Direct Bilirubin 0.1 AST 16 21 ALT 22 24 Alkaline Phosphatase 86 83 Total Protein 7.5 7.3 Albumin 3.7 3.5 Triglycerides 120 Cholesterol 187 LDL Cholesterol, Calc 117 H HDL Cholesterol 46 TSH 2.05 Urine Color Yellow Urine Appearance Cloudy Urine pH 6.5 Ur Specific [place] 1.015 Urine Protein Trace Urine Glucose (UA) Negative Urine Ketones Negative Urine Blood Negative Urine Nitrite Negative Ur Leukocyte Esterase Large (3+) H Urine RBC 0-2 Urine WBC >50 H Ur Squamous Epith Cells 6-10 Urine Bacteria 1+ Hyaline Casts 0-2 Urine Opiates Screen Not Detected Urine Fentanyl Screen Not Detected Ur Barbiturates Screen Not Detected Ur Phencyclidine Scrn Not Detected Ur Amphetamines Screen Not Detected U Benzodiazepines Scrn Not Detected Urine Cocaine Screen Not Detected U Marijuana (THC) Screen Not Detected Ethyl Alcohol < 10 COVID-19 ([facility]ILIANA) Negative COVID-19 Clin Com See Note Meds/Allergies Allergies Allergies Allergy/AdvReac Type Severity Reaction Status Date / Time risperidone [From Risperdal] Allergy Intermediate UNKNOWN Verified 05/12/23 13:13 Sulfa (Sulfonamide Allergy Intermediate rash Verified 05/12/23 13:13 Antibiotics) From BENADRYL Allergy Intermediate DIZZY Uncoded 02/14/23 11:47 Mental Status Exam Mental Status Exam Narrative: Pt is alert and oriented; behavior is cooperative, but with also some disorganization; calm; patient is not in distress; dressed in casual attire with unkempt hair but adequate hygiene; mood is described as depressedand affect congruent blunted; eye contact appropriate; Speech slowed, volume and prosody and not pressured; some psychomotor retardation present; thought process slowed more organized some perplexity some poverty of content; Thought content not clear exactly what happened at home; no paranoia; no expressed SI/HI. Difficulty with short-term memory Seems perplexed does know that she has on a psychiatric unit that she has a psychiatric illness that she is being treated by Dr. Willett knows the year and the month home address that she is at [facility] some difficulty with balance and ambulation mood depressed constricted no SI Judgement: Fair Assessment & Plan Assessment & Plan (1) Major depressive disorder, recurrent severe without psychotic features: Status: Acute Code(s): F33.2 - Major depressive disorder, recurrent severe without psychotic features (2) POONAM (generalized anxiety disorder): Status: Acute Code(s): F41.1 - Generalized anxiety disorder (3) Acute UTI: Status: Acute Code(s): N39.0 - Urinary tract infection, site not specified Assessment and Plan: On antibiotics Plan Patient requires inpatient treatment for safety and stabilization depressed confused will change clonidine to p.o. Namenda and Aricept recently restarted consider increase Trintellix to 20 mg has been increased to 10 mg continue Vraylar 1.5 mg monitor for akathisia propranolol should help with those failed trial of caplyta Patient has had a clear deterioration in mentation cognition and memory some of this may relate to UTI and recent ECT would benefit from retesting initial [place] quite decreased may also do better testing in [place] OT evaluation PT will get medical clearance for ECT given patient's cognitive changes question of hypoxia at night re-evaluate need for nighttime O2 will get hospitalist consult Patient educated on: diagnosis and medication risk/benefits Guardian/Caregiver educated on: diagnosis, medication risk/benefits and medical condition Informed Consent: further education needed Reason for continued inpatient stay Substantial Risk for: inability to function and rapid decompensation Statement Statement: I have reviewed the history and physical and performed a pertinent examination on my patient. No changes have occurred unless specified. If the History and Physical was not performed prior to admission, the Hospitalist's service will be consulted for completing the admission physical. Time Spent With Patient Time: Total time managing care of this patient today _50___ minutes.
[2023-07-17] MEDS: Tamsulosin HCL 0.4 MG CAPSULE PO (17:41)
[2023-07-17 18:00] VITALS: BP 133/79; PULSE 86; RESP 18; TEMP 36.4; O2SAT 97
[2023-07-17] MEDS: Donepezil HCl 10 MG TABLET PO (21:23)
[2023-07-17] MEDS: traZODone HCL 50 MG TABLET PO (21:23)
[2023-07-17] MEDS: QUEtiapine Fumarate 25 MG TABLET PO (21:23)
[2023-07-18] MEDS: Melatonin 3 MG TABLET 6 MG PO ×2 (00:37→21:35)
[2023-07-18 04:53] VITALS: BP 135/77; PULSE 93; RESP 16; TEMP 36.4; O2SAT 93
[2023-07-18 06:00] VITALS: BP 107/60; PULSE 70; RESP 18; TEMP 36.5; O2SAT 97
[2023-07-18] MEDS: Cariprazine HCl 1.5 MG CAPSULE PO (08:39)
[2023-07-18] MEDS: Memantine HCl 10 MG TABLET PO ×2 (08:39→20:53)
[2023-07-18] MEDS: cloNIDine HCL 0.1 MG TABLET PO ×3 (08:39→20:53)
[2023-07-18] MEDS: Thiamine HCL 100 MG TABLET PO ×2 (08:39→20:53)
[2023-07-18] MEDS: cefuroxime axetiL 250 MG TABLET PO ×2 (08:39→20:53)
[2023-07-18] MEDS: Propranolol HCL 10 MG TABLET PO ×2 (08:39→20:53)
[2023-07-18] MEDS: Vortioxetine Hydrobromide 10 MG TABLET PO (08:39)
[2023-07-18] MEDS: Folic Acid 1 MG TABLET PO (08:39)
--- NOTE | 2023-07-18 10:23 | HO.PSYCHPN ---
Subjective Subjective Date of Service: 07/18/23 Reason For Visit: Major depression with psychotic features Interim History: Pt seen, discussed with the team. Recent discharge/readmission. Team reports pt/ were confused about discharge instructions and med minder was not in place. Pt talking about being unable to help her with care. Pt sleeping when seen. Awakens easily, spontaneous smile, no distress noted, asks for something to eat/drink. Medication Compliance: Yes Side effects from medications: No Attending Groups: Intermittent Review of Systems Acute medical concerns: No Medical Review of Systems: unchanged Review of Systems Review of Systems Yes Unobtainable due to mental status Mental Status Exam Mental Status Exam Patient Appearance: Appropriate Patient Orientation: Person Level of Consciousness: Alert Patient Behavior: Appropriate, Talkative and Good Eye Contact Mood Description: Flat Affect Description: Flat Patient Cognition Impaired: Yes Ability to Follow Directions: Fair Speech Pattern: Spontaneous Speech Memory Description: Remote Impaired Hallucinations: None Delusions: Not Present Thought Process: Distracted Thought Content: positive for Circumstantial Depressive Symptoms: Increased Anxiety Judgement: Fair Diagnostics Vital Signs (24Hr): Vital Signs - 24 hr 07/17/23 18:00 07/18/23 04:53 07/18/23 06:00 Temperature 97.6 F 97.6 F 97.7 F Pulse Rate 86 93 70 Respiratory Rate 18 16 18 Blood Pressure 133/79 135/77 107/60 Pulse Oximetry 97 93 97 Oxygen Delivery Method Room Air Room Air Room Air BMI result Body Mass Index 26.0 Labs 07/16/23 10:34 07/17/23 08:12 Labs: Laboratory Results - last 48 hr 07/16/23 07/16/23 07/17/23 10:30 10:34 08:12 WBC 13.9 H RBC 4.87 Hgb 14.7 Hct 44.9 MCV 92.2 MCH 30.2 MCHC 32.7 RDW 15.9 Plt Count 437 H D MPV 9.5 Immature Gran % (Auto) 0.9 H Neut % (Auto) 86.1 H Lymph % (Auto) 7.4 L [place] % (Auto) 5.2 Eos % (Auto) 0.0 Baso % (Auto) 0.4 Lymph # (Auto) 1.0 L [place] # (Auto) 0.7 Eos # (Auto) 0.0 Baso # (Auto) 0.1 Abs Immat Gran (auto) 0.12 H Absolute Neuts (auto) 12.0 H Absolute Nucleated RBC 0.000 Nucleated RBC % (auto) 0.0 Sodium 139 137 Potassium 4.1 4.3 Chloride 103 101 Carbon Dioxide 25 22 Anion Gap 15 18 BUN 13 11 Creatinine 0.89 0.88 Estim Creat Clear Calc 45.8 51.6 Estimated GFR > 60 > 60 Random Glucose 160 H Fasting Glucose 131 H Calcium 10.1 9.8 Magnesium 1.9 Total Bilirubin 0.3 0.5 Direct Bilirubin 0.1 AST 16 21 ALT 22 24 Alkaline Phosphatase 86 83 Total Protein 7.5 7.3 Albumin 3.7 3.5 Triglycerides 120 Cholesterol 187 LDL Cholesterol, Calc 117 H HDL Cholesterol 46 TSH 2.05 Urine Color Yellow Urine Appearance Cloudy Urine pH 6.5 Ur Specific [place] 1.015 Urine Protein Trace Urine Glucose (UA) Negative Urine Ketones Negative Urine Blood Negative Urine Nitrite Negative Ur Leukocyte Esterase Large (3+) H Urine RBC 0-2 Urine WBC >50 H Ur Squamous Epith Cells 6-10 Urine Bacteria 1+ Hyaline Casts 0-2 Urine Opiates Screen Not Detected Urine Fentanyl Screen Not Detected Ur Barbiturates Screen Not Detected Ur Phencyclidine Scrn Not Detected Ur Amphetamines Screen Not Detected U Benzodiazepines Scrn Not Detected Urine Cocaine Screen Not Detected U Marijuana (THC) Screen Not Detected Ethyl Alcohol < 10 COVID-19 ([facility]IL[facility]NA) Negative COVID-19 Clin Com See Note Medications Medications Current Medications Acetaminophen (Acetaminophen 325 Mg Tablet) 650 mg PO Q6H PRN PRN Reason: Headache/Pain Mild Scale (1-3) Al Hydroxide/Mg Hydroxide (Magnesium Hydrox/Alum Hydrox 30 Ml Oral.Susp) 30 ml PO Q6H PRN PRN Reason: Heartburn/Nausea Al Hydroxide/Mg Hydroxide (Magnesium Hydrox/Alum Hydrox 30 Ml Oral.Susp) 30 ml PO Q6H PRN PRN Reason: Heartburn/Nausea Cariprazine (Cariprazine Hcl 1.5 Mg Capsule) 1.5 mg PO DAILY [facility] Last Admin: 07/18/23 08:39 Dose: 1.5 mg Cefuroxime Axetil (Cefuroxime Axetil 250 Mg Tablet) 250 mg PO BID [facility] Stop: 07/22/23 21:01 Last Admin: 07/18/23 08:39 Dose: 250 mg Clonidine HCl (Clonidine Hcl 0.1 Mg Tablet) 0.1 mg PO TID [facility]; Protocol Last Admin: 07/18/23 08:39 Dose: 0.1 mg Donepezil HCl (Donepezil Hcl 10 Mg Tablet) 10 mg PO BEDTIME [facility] Last Admin: 07/17/23 21:23 Dose: 10 mg Folic Acid (Folic Acid 1 Mg Tablet) 1 mg PO DAILY [facility] Last Admin: 07/18/23 08:39 Dose: 1 mg Lidocaine (Lidocaine 4 % Patch Adh..Patch) 1 patch TRANSDERMA DAILY [facility]; Protocol Last Admin: 07/18/23 08:39 Dose: Not Given Lorazepam (Lorazepam 0.5 Mg Tablet) 0.5 mg PO BID PRN PRN Reason: Anxiety Magnesium Hydroxide (Milk Of Magnesia 30 Ml Oral.Susp) 30 ml PO DAILY PRN PRN Reason: Constipation Magnesium Hydroxide (Milk Of Magnesia 30 Ml Oral.Susp) 30 ml PO DAILY PRN PRN Reason: Constipation Melatonin (Melatonin 3 Mg Tablet) 6 mg PO BEDTIME PRN PRN Reason: Insomnia Last Admin: 07/18/23 00:37 Dose: 6 mg Memantine (Memantine Hcl 10 Mg Tablet) 10 mg PO BID [facility] Last Admin: 07/18/23 08:39 Dose: 10 mg Propranolol HCl (Propranolol Hcl 10 Mg Tablet) 10 mg PO BID [facility]; Protocol Last Admin: 07/18/23 08:39 Dose: 10 mg Quetiapine Fumarate (Quetiapine Fumarate 25 Mg Tablet) 25 mg PO BEDTIME MRX1 [facility] Last Admin: 07/17/23 21:26 Dose: 25 mg Tamsulosin HCl (Tamsulosin Hcl 0.4 Mg Capsule) 0.4 mg PO DAILY@1730 [facility] Last Admin: 07/17/23 17:41 Dose: 0.4 mg Thiamine HCl (Thiamine Hcl 100 Mg Tablet) 100 mg PO BID [facility] Last Admin: 07/18/23 08:39 Dose: 100 mg Trazodone HCl (Trazodone Hcl 50 Mg Tablet) 50 mg PO BEDTIME MRX1 PRN PRN Reason: Insomnia Last Admin: 07/17/23 21:23 Dose: 50 mg Vortioxetine (Vortioxetine Hydrobromide 10 Mg Tablet) 10 mg PO DAILY [facility] Last Admin: 07/18/23 08:39 Dose: 10 mg Allergies Allergies Allergy/AdvReac Type Severity Reaction Status Date / Time risperidone [From Risperdal] Allergy Intermediate UNKNOWN Verified 05/12/23 13:13 Sulfa (Sulfonamide Allergy Intermediate rash Verified 05/12/23 13:13 Antibiotics) From BENADRYL Allergy Intermediate DIZZY Uncoded 02/14/23 11:47 Assessment & Plan Assessment & Plan (1) Major depressive disorder, recurrent severe without psychotic features: Status: Acute Code(s): F33.2 - Major depressive disorder, recurrent severe without psychotic features Assessment and Plan: 07/18/23: Continue current treatment plan. (2) POONAM (generalized anxiety disorder): Status: Acute Code(s): F41.1 - Generalized anxiety disorder (3) Acute UTI: Status: Acute Code(s): N39.0 - Urinary tract infection, site not specified Assessment and Plan: On antibiotics Plan Patient requires inpatient treatment for safety and stabilization depressed confused will change clonidine to p.o. Namenda and Aricept recently restarted consider increase Trintellix to 20 mg has been increased to 10 mg continue Vraylar 1.5 mg monitor for akathisia propranolol should help with those failed trial of caplyta Patient has had a clear deterioration in mentation cognition and memory some of this may relate to UTI and recent ECT would benefit from retesting initial [place] quite decreased may also do better testing in [place] OT evaluation PT will get medical clearance for ECT given patient's cognitive changes question of hypoxia at night re-evaluate need for nighttime O2 will get hospitalist consult Informed Consent: does not understand and further education needed Reason for continued inpatient stay Substantial Risk for: rapid decompensation Time Spent With Patient Time: Total time managing care of this patient today ____ minutes.
[2023-07-18] MEDS: Lidocaine 4 % Patch ADH..PATCH 1 PATCH TRANSDERMA (11:19)
[2023-07-18] MEDS: Acetaminophen 325 MG TABLET 650 MG PO (11:20)
[2023-07-18] MEDS: LORazepam 0.5 MG TABLET PO (13:56)
[2023-07-18 14:42] VITALS: BP 122/63
[2023-07-18] MEDS: Tamsulosin HCL 0.4 MG CAPSULE PO (17:05)
[2023-07-18 18:00] VITALS: BP 120/70; PULSE 79; RESP 18; TEMP 36.4; O2SAT 95
[2023-07-18] MEDS: Donepezil HCl 10 MG TABLET PO (20:53)
[2023-07-18] MEDS: QUEtiapine Fumarate 25 MG TABLET PO (20:53)
[2023-07-19 07:30] VITALS: BP 118/69; PULSE 94; RESP 18; TEMP 36.5; O2SAT 96
[2023-07-19] MEDS: cefuroxime axetiL 250 MG TABLET PO ×2 (10:00→21:01)
[2023-07-19] MEDS: cloNIDine HCL 0.1 MG TABLET PO ×3 (10:00→21:01)
[2023-07-19] MEDS: Propranolol HCL 10 MG TABLET PO ×2 (10:00→21:01)
[2023-07-19] MEDS: Folic Acid 1 MG TABLET PO (10:00)
[2023-07-19] MEDS: Vortioxetine Hydrobromide 10 MG TABLET PO (10:00)
[2023-07-19] MEDS: Lidocaine 4 % Patch ADH..PATCH 1 PATCH TRANSDERMA (10:00)
[2023-07-19] MEDS: Cariprazine HCl 1.5 MG CAPSULE PO (10:00)
[2023-07-19] MEDS: Memantine HCl 10 MG TABLET PO ×2 (10:00→21:01)
[2023-07-19] MEDS: Thiamine HCL 100 MG TABLET PO ×2 (10:00→21:01)
[2023-07-19 15:08] VITALS: BP 127/66
[2023-07-19] MEDS: Tamsulosin HCL 0.4 MG CAPSULE PO (17:15)
--- NOTE | 2023-07-19 17:18 | P.PNPSI_ITS ---
Subjective Subjective Date of Service: 07/19/23 Reason For Visit: Major depression with psychotic features Interim History: Pt seen, discussed with the team. Team reports pt is grieving and was tearful last night as is not able to care for her. She is sleeping, eating and taking medicines Today, she is visable in milieu, interactive and attentive to activity. Medication Compliance: Yes Side effects from medications: No Attending Groups: No Review of Systems Acute medical concerns: No Medical Review of Systems: unchanged Review of Systems Review of Systems Yes all other systems are reviewed and are negative Mental Status Exam Mental Status Exam Patient Appearance: Appropriate Patient Orientation: Person Level of Consciousness: Alert Patient Behavior: Appropriate, Talkative and Good Eye Contact Mood Description: Flat Affect Description: Flat Patient Cognition Impaired: Yes Ability to Follow Directions: Fair Speech Pattern: Spontaneous Speech Memory Description: Remote Impaired Hallucinations: None Delusions: Not Present Thought Process: Distracted Thought Content: positive for Circumstantial Depressive Symptoms: Increased Anxiety Judgement: Fair Diagnostics Vital Signs (24Hr): Vital Signs - 24 hr 07/18/23 18:00 07/19/23 07:30 07/19/23 15:08 Temperature 97.6 F 97.7 F Pulse Rate 79 94 Respiratory Rate 18 18 Blood Pressure 120/70 118/69 127/66 Pulse Oximetry 95 96 Oxygen Delivery Method Room Air Room Air BMI result Body Mass Index 26.0 Labs 07/16/23 10:34 07/17/23 08:12 Medications Medications Current Medications Acetaminophen (Acetaminophen 325 Mg Tablet) 650 mg PO Q6H PRN PRN Reason: Headache/Pain Mild Scale (1-3) Last Admin: 07/18/23 11:20 Dose: 650 mg Al Hydroxide/Mg Hydroxide (Magnesium Hydrox/Alum Hydrox 30 Ml Oral.Susp) 30 ml PO Q6H PRN PRN Reason: Heartburn/Nausea Al Hydroxide/Mg Hydroxide (Magnesium Hydrox/Alum Hydrox 30 Ml Oral.Susp) 30 ml PO Q6H PRN PRN Reason: Heartburn/Nausea Cariprazine (Cariprazine Hcl 1.5 Mg Capsule) 1.5 mg PO DAILY [facility] Last Admin: 07/19/23 10:00 Dose: 1.5 mg Cefuroxime Axetil (Cefuroxime Axetil 250 Mg Tablet) 250 mg PO BID [facility] Stop: 07/22/23 21:01 Last Admin: 07/19/23 10:00 Dose: 250 mg Clonidine HCl (Clonidine Hcl 0.1 Mg Tablet) 0.1 mg PO TID [facility]; Protocol Last Admin: 07/19/23 15:14 Dose: 0.1 mg Donepezil HCl (Donepezil Hcl 10 Mg Tablet) 10 mg PO BEDTIME [facility] Last Admin: 07/18/23 20:53 Dose: 10 mg Folic Acid (Folic Acid 1 Mg Tablet) 1 mg PO DAILY [facility] Last Admin: 07/19/23 10:00 Dose: 1 mg Lidocaine (Lidocaine 4 % Patch Adh..Patch) 1 patch TRANSDERMA DAILY [facility]; Protocol Last Admin: 07/19/23 10:00 Dose: 1 patch Lorazepam (Lorazepam 0.5 Mg Tablet) 0.5 mg PO BID PRN PRN Reason: Anxiety Last Admin: 07/18/23 13:56 Dose: 0.5 mg Magnesium Hydroxide (Milk Of Magnesia 30 Ml Oral.Susp) 30 ml PO DAILY PRN PRN Reason: Constipation Magnesium Hydroxide (Milk Of Magnesia 30 Ml Oral.Susp) 30 ml PO DAILY PRN PRN Reason: Constipation Melatonin (Melatonin 3 Mg Tablet) 6 mg PO BEDTIME PRN PRN Reason: Insomnia Last Admin: 07/18/23 21:35 Dose: 6 mg Memantine (Memantine Hcl 10 Mg Tablet) 10 mg PO BID [facility] Last Admin: 07/19/23 10:00 Dose: 10 mg Propranolol HCl (Propranolol Hcl 10 Mg Tablet) 10 mg PO BID [facility]; Protocol Last Admin: 07/19/23 10:00 Dose: 10 mg Quetiapine Fumarate (Quetiapine Fumarate 25 Mg Tablet) 25 mg PO BEDTIME MRX1 [facility] Last Admin: 07/18/23 21:40 Dose: Not Given Tamsulosin HCl (Tamsulosin Hcl 0.4 Mg Capsule) 0.4 mg PO DAILY@1730 [facility] Last Admin: 07/18/23 17:05 Dose: 0.4 mg Thiamine HCl (Thiamine Hcl 100 Mg Tablet) 100 mg PO BID [facility] Last Admin: 07/19/23 10:00 Dose: 100 mg Trazodone HCl (Trazodone Hcl 50 Mg Tablet) 50 mg PO BEDTIME MRX1 PRN PRN Reason: Insomnia Last Admin: 07/17/23 21:23 Dose: 50 mg Vortioxetine (Vortioxetine Hydrobromide 10 Mg Tablet) 10 mg PO DAILY [facility] Last Admin: 07/19/23 10:00 Dose: 10 mg Allergies Allergies Allergy/AdvReac Type Severity Reaction Status Date / Time risperidone [From Risperdal] Allergy Intermediate UNKNOWN Verified 05/12/23 13:13 Sulfa (Sulfonamide Allergy Intermediate rash Verified 05/12/23 13:13 Antibiotics) From BENADRYL Allergy Intermediate DIZZY Uncoded 02/14/23 11:47 Assessment & Plan Assessment & Plan (1) Major depressive disorder, recurrent severe without psychotic features: Status: Acute Code(s): F33.2 - Major depressive disorder, recurrent severe without psychotic features Assessment and Plan: 07/18/23: Continue current treatment plan. 07/19/23: Continue current treatment plan. (2) POONAM (generalized anxiety disorder): Status: Acute Code(s): F41.1 - Generalized anxiety disorder (3) Acute UTI: Status: Acute Code(s): N39.0 - Urinary tract infection, site not specified Assessment and Plan: On antibiotics Plan Patient requires inpatient treatment for safety and stabilization depressed confused will change clonidine to p.o. Namenda and Aricept recently restarted consider increase Trintellix to 20 mg has been increased to 10 mg continue Vraylar 1.5 mg monitor for akathisia propranolol should help with those failed trial of caplyta Patient has had a clear deterioration in mentation cognition and memory some of this may relate to UTI and recent ECT would benefit from retesting initial [place] quite decreased may also do better testing in [place] OT evaluation PT will get medical clearance for ECT given patient's cognitive changes question of hypoxia at night re-evaluate need for nighttime O2 will get hospitalist consult Informed Consent: further education needed Reason for continued inpatient stay Substantial Risk for: rapid decompensation Time Spent With Patient Time: Total time managing care of this patient today ____ minutes.
[2023-07-19 19:40] VITALS: BP 126/59; PULSE 78; RESP 18; TEMP 36.6; O2SAT 98
[2023-07-19] MEDS: Donepezil HCl 10 MG TABLET PO (21:01)
[2023-07-19] MEDS: QUEtiapine Fumarate 25 MG TABLET PO (21:01)
[2023-07-20 08:00] VITALS: BP 96/52; PULSE 70; RESP 18; TEMP 35.8; O2SAT 96
[2023-07-20] MEDS: Vortioxetine Hydrobromide 10 MG TABLET PO (08:45)
[2023-07-20] MEDS: cloNIDine HCL 0.1 MG TABLET PO ×3 (08:45→20:19)
[2023-07-20] MEDS: Memantine HCl 10 MG TABLET PO ×2 (08:45→20:20)
[2023-07-20] MEDS: Cariprazine HCl 1.5 MG CAPSULE PO (08:45)
[2023-07-20] MEDS: Thiamine HCL 100 MG TABLET PO ×2 (08:45→20:20)
[2023-07-20] MEDS: Folic Acid 1 MG TABLET PO (08:45)
[2023-07-20] MEDS: Propranolol HCL 10 MG TABLET PO ×2 (08:45→20:20)
[2023-07-20] MEDS: cefuroxime axetiL 250 MG TABLET PO ×2 (08:45→20:19)
[2023-07-20] MEDS: Lidocaine 4 % Patch ADH..PATCH 1 PATCH TRANSDERMA (08:46)
[2023-07-20 14:00] VITALS: BP 114/71; PULSE 69
[2023-07-20] MEDS: LORazepam 0.5 MG TABLET PO (14:48)
--- NOTE | 2023-07-20 15:40 | P.PNPSI_ITS ---
Subjective Subjective Date of Service: 07/20/23 Reason For Visit: Major depression with psychotic features Subjective Notes: Conditional Voluntary Guardianship: No Interim History: the pt is seen in psych f/u seen pt depressed flat poor concentration attention st memory not psychotic but quite depressed Medication Compliance: Yes Attending Groups: No Mental Status Exam Mental Status Exam Patient Appearance: Disheveled Patient Orientation: Person and Place Level of Consciousness: Restless and Alert Patient Behavior: Talkative and Good Eye Contact Mood Description: Constricted, Depressed and Flat Affect Description: Flat Patient Cognition Impaired: Yes Ability to Follow Directions: Fair Speech Pattern: Spontaneous Speech Memory Description: Remote Impaired Hallucinations: None Delusions: Not Present Thought Process: Distracted Thought Content: positive for Circumstantial Depressive Symptoms: Increased Anxiety Abnormal Motor Activity Signs and Symptoms: Restlessness Judgement: Fair Judgement and Insight: no active si Diagnostics Vital Signs (24Hr): Vital Signs - 24 hr 07/19/23 19:40 07/20/23 08:00 07/20/23 14:00 Temperature 97.8 F 96.4 F L Pulse Rate 78 70 69 Respiratory Rate 18 18 Blood Pressure 126/59 L 96/52 L 114/71 Pulse Oximetry 98 96 Oxygen Delivery Method Room Air Room Air BMI result Body Mass Index 26.0 Labs 07/16/23 10:34 07/17/23 08:12 Medications Medications Current Medications Acetaminophen (Acetaminophen 325 Mg Tablet) 650 mg PO Q6H PRN PRN Reason: Headache/Pain Mild Scale (1-3) Last Admin: 07/18/23 11:20 Dose: 650 mg Al Hydroxide/Mg Hydroxide (Magnesium Hydrox/Alum Hydrox 30 Ml Oral.Susp) 30 ml PO Q6H PRN PRN Reason: Heartburn/Nausea Al Hydroxide/Mg Hydroxide (Magnesium Hydrox/Alum Hydrox 30 Ml Oral.Susp) 30 ml PO Q6H PRN PRN Reason: Heartburn/Nausea Cariprazine (Cariprazine Hcl 3 Mg Capsule) 3 mg PO DAILY [facility] Cefuroxime Axetil (Cefuroxime Axetil 250 Mg Tablet) 250 mg PO BID [facility] Stop: 07/22/23 21:01 Last Admin: 07/20/23 08:45 Dose: 250 mg Clonidine HCl (Clonidine Hcl 0.1 Mg Tablet) 0.1 mg PO TID [facility]; Protocol Last Admin: 07/20/23 14:03 Dose: 0.1 mg Donepezil HCl (Donepezil Hcl 10 Mg Tablet) 10 mg PO BEDTIME [facility] Last Admin: 07/19/23 21:01 Dose: 10 mg Folic Acid (Folic Acid 1 Mg Tablet) 1 mg PO DAILY [facility] Last Admin: 07/20/23 08:45 Dose: 1 mg Lidocaine (Lidocaine 4 % Patch Adh..Patch) 1 patch TRANSDERMA DAILY [facility]; Protocol Last Admin: 07/20/23 08:46 Dose: 1 patch Lorazepam (Lorazepam 0.5 Mg Tablet) 0.5 mg PO BID PRN PRN Reason: Anxiety Last Admin: 07/20/23 14:48 Dose: 0.5 mg Magnesium Hydroxide (Milk Of Magnesia 30 Ml Oral.Susp) 30 ml PO DAILY PRN PRN Reason: Constipation Magnesium Hydroxide (Milk Of Magnesia 30 Ml Oral.Susp) 30 ml PO DAILY PRN PRN Reason: Constipation Melatonin (Melatonin 3 Mg Tablet) 6 mg PO BEDTIME PRN PRN Reason: Insomnia Last Admin: 07/18/23 21:35 Dose: 6 mg Memantine (Memantine Hcl 10 Mg Tablet) 10 mg PO BID [facility] Last Admin: 07/20/23 08:45 Dose: 10 mg Propranolol HCl (Propranolol Hcl 10 Mg Tablet) 10 mg PO BID [facility]; Protocol Last Admin: 07/20/23 08:45 Dose: 10 mg Quetiapine Fumarate (Quetiapine Fumarate 25 Mg Tablet) 25 mg PO BEDTIME MRX1 [facility] Last Admin: 07/19/23 22:25 Dose: Not Given Tamsulosin HCl (Tamsulosin Hcl 0.4 Mg Capsule) 0.4 mg PO DAILY@1730 [facility] Last Admin: 07/19/23 17:15 Dose: 0.4 mg Thiamine HCl (Thiamine Hcl 100 Mg Tablet) 100 mg PO BID [facility] Last Admin: 07/20/23 08:45 Dose: 100 mg Trazodone HCl (Trazodone Hcl 50 Mg Tablet) 50 mg PO BEDTIME MRX1 PRN PRN Reason: Insomnia Last Admin: 07/17/23 21:23 Dose: 50 mg Vortioxetine (Vortioxetine Hydrobromide 10 Mg Tablet) 10 mg PO DAILY [facility] Last Admin: 07/20/23 08:45 Dose: 10 mg Allergies Allergies Allergy/AdvReac Type Severity Reaction Status Date / Time risperidone [From Risperdal] Allergy Intermediate UNKNOWN Verified 05/12/23 13:13 Sulfa (Sulfonamide Allergy Intermediate rash Verified 05/12/23 13:13 Antibiotics) From BENADRYL Allergy Intermediate DIZZY Uncoded 02/14/23 11:47 Assessment & Plan Assessment & Plan (1) Major depressive disorder, recurrent severe without psychotic features: Status: Acute Code(s): F33.2 - Major depressive disorder, recurrent severe without psychotic features Assessment and Plan: 07/18/23: Continue current treatment plan. 07/19/23: Continue current treatment plan. (2) POONAM (generalized anxiety disorder): Status: Acute Code(s): F41.1 - Generalized anxiety disorder (3) Acute UTI: Status: Acute Code(s): N39.0 - Urinary tract infection, site not specified Assessment and Plan: On antibiotics Plan Patient requires inpatient treatment for safety and stabilization depressed confused will change clonidine to p.o. Namenda and Aricept recently restarted consider increase Trintellix to 20 mg has been increased to 10 mg continue Vraylar 1.5 mg monitor for akathisia propranolol should help with those failed trial of caplyta Patient has had a clear deterioration in mentation cognition and memory some of this may relate to UTI and recent ECT would benefit from retesting initial [place] quite decreased may also do better testing in [place] OT evaluation PT will get medical clearance for ECT given patient's cognitive changes question of hypoxia at night re-evaluate need for nighttime O2 will get hospitalist consult 07/20/23 Poor cognition much worse past 3 months ? hypoxia at hs inc vraylar inc trintellix ? o 2 at hs Patient educated on: diagnosis Guardian/Caregiver educated on: diagnosis and medication risk/benefits Informed Consent: further education needed Reason for continued inpatient stay Substantial Risk for: inability to function, rapid decompensation and med/psych decompensation Time Spent With Patient Time: Total time managing care of this patient today ____ minutes.
[2023-07-20] MEDS: Tamsulosin HCL 0.4 MG CAPSULE PO (16:31)
[2023-07-20 18:00] VITALS: BP 101/51; PULSE 67; RESP 16; TEMP 36.3; O2SAT 96
[2023-07-20] MEDS: QUEtiapine Fumarate 25 MG TABLET PO (20:20)
[2023-07-20] MEDS: Donepezil HCl 10 MG TABLET PO (20:20)
[2023-07-21] MEDS: Acetaminophen 325 MG TABLET 650 MG PO (06:31)
[2023-07-21 07:50] VITALS: BP 112/68; PULSE 74; RESP 18; TEMP 36.4; O2SAT 95
[2023-07-21] MEDS: Memantine HCl 10 MG TABLET PO ×2 (08:38→20:01)
[2023-07-21] MEDS: cloNIDine HCL 0.1 MG TABLET PO ×3 (08:38→20:02)
[2023-07-21] MEDS: Vortioxetine Hydrobromide 10 MG TABLET PO (08:38)
[2023-07-21] MEDS: Cariprazine HCl 3 MG CAPSULE PO (08:39)
[2023-07-21] MEDS: Folic Acid 1 MG TABLET PO (08:39)
[2023-07-21] MEDS: Thiamine HCL 100 MG TABLET PO ×2 (08:39→20:01)
[2023-07-21] MEDS: cefuroxime axetiL 250 MG TABLET PO ×2 (08:39→20:01)
[2023-07-21] MEDS: Propranolol HCL 10 MG TABLET PO ×2 (08:39→20:02)
--- NOTE | 2023-07-21 13:05 | PM.EVENT ---
Event Note Date of Service: 07/21/23 Event Note: Pt admitted to geriatric psychiatry with consult placed to hospitalist service for evaluation of abnormal sleep study results from 05/30. Pt follows with Dr. Melissa in pulmonology and had home lseep study performed on 05/28/23 without evidence of FARNAZ but showed nocturnal hypxemia with average O2 sat 90% with O2 sat <88% for [address] Melissa recommends oxygen and reported patient needs formal in-lab sleep study to better evaluate for sleep apnea as home study was inadequate to make diagnosis of sleep apnea. As pulmonology recommended, patient would benefit from 2L supplemental O2 at bedtime though patient was reluctant. Would encourage patient to comply with pulmonogy recommendations while hospitalized and use 2L supplemental O2 at bedtime. Needs in-lab sleep study on discharge. Thank you for allowing me to participate in this consult. Signing off at this time. Please do not hesitate to call for further questions or for any acute medical issues. Time Spent With Patient Time: Total time managing care of this patient today ____ minutes.
[2023-07-21 14:10] VITALS: BP 116/73; PULSE 82
[2023-07-21] MEDS: LORazepam 0.5 MG TABLET PO (14:14)
--- NOTE | 2023-07-21 15:12 | HO.PSYCHPN ---
Subjective Subjective Date of Service: 07/21/23 Reason For Visit: Major depression with psychotic features Subjective Notes: Conditional Voluntary Interim History: pts reportedly feels he is not capable of caring for pt she is depressed flat helpless isolative not going to grps aware that h has concerns regarding taking her home Mental Status Exam Mental Status Exam Patient Appearance: Disheveled Patient Orientation: Person and Place Level of Consciousness: Awake and Restless Patient Behavior: Talkative, Passive, Distractible and Isolative Mood Description: Constricted, Depressed and Flat Affect Description: Flat Patient Cognition Impaired: Yes Ability to Follow Directions: Fair Speech Pattern: Spontaneous Speech Memory Description: Remote Impaired Hallucinations: None Delusions: Not Present Thought Process: Distracted Thought Content: positive for Circumstantial Depressive Symptoms: Increased Anxiety Abnormal Motor Activity Signs and Symptoms: Restlessness Judgement: Fair Judgement and Insight: no active si Diagnostics Vital Signs (24Hr): Vital Signs - 24 hr 07/20/23 18:00 07/21/23 07:50 07/21/23 14:10 Temperature 97.3 F 97.5 F Pulse Rate 67 74 82 Respiratory Rate 16 18 Blood Pressure 101/51 L 112/68 116/73 Pulse Oximetry 96 95 Oxygen Delivery Method Room Air Room Air BMI result Body Mass Index 26.0 Labs 07/16/23 10:34 07/17/23 08:12 Medications Medications Current Medications Acetaminophen (Acetaminophen 325 Mg Tablet) 650 mg PO Q6H PRN PRN Reason: Headache/Pain Mild Scale (1-3) Last Admin: 07/21/23 06:31 Dose: 650 mg Al Hydroxide/Mg Hydroxide (Magnesium Hydrox/Alum Hydrox 30 Ml Oral.Susp) 30 ml PO Q6H PRN PRN Reason: Heartburn/Nausea Al Hydroxide/Mg Hydroxide (Magnesium Hydrox/Alum Hydrox 30 Ml Oral.Susp) 30 ml PO Q6H PRN PRN Reason: Heartburn/Nausea Cariprazine (Cariprazine Hcl 3 Mg Capsule) 3 mg PO DAILY [facility] Last Admin: 07/21/23 08:39 Dose: 3 mg Cefuroxime Axetil (Cefuroxime Axetil 250 Mg Tablet) 250 mg PO BID [facility] Stop: 07/22/23 21:01 Last Admin: 07/21/23 08:39 Dose: 250 mg Clonidine HCl (Clonidine Hcl 0.1 Mg Tablet) 0.1 mg PO TID [facility]; Protocol Last Admin: 07/21/23 14:14 Dose: 0.1 mg Donepezil HCl (Donepezil Hcl 10 Mg Tablet) 10 mg PO BEDTIME [facility] Last Admin: 07/20/23 20:20 Dose: 10 mg Folic Acid (Folic Acid 1 Mg Tablet) 1 mg PO DAILY [facility] Last Admin: 07/21/23 08:39 Dose: 1 mg Lidocaine (Lidocaine 4 % Patch Adh..Patch) 1 patch TRANSDERMA DAILY [facility]; Protocol Last Admin: 07/21/23 09:36 Dose: Not Given Lorazepam (Lorazepam 0.5 Mg Tablet) 0.5 mg PO BID PRN PRN Reason: Anxiety Last Admin: 07/21/23 14:14 Dose: 0.5 mg Magnesium Hydroxide (Milk Of Magnesia 30 Ml Oral.Susp) 30 ml PO DAILY PRN PRN Reason: Constipation Magnesium Hydroxide (Milk Of Magnesia 30 Ml Oral.Susp) 30 ml PO DAILY PRN PRN Reason: Constipation Melatonin (Melatonin 3 Mg Tablet) 6 mg PO BEDTIME PRN PRN Reason: Insomnia Last Admin: 07/18/23 21:35 Dose: 6 mg Memantine (Memantine Hcl 10 Mg Tablet) 10 mg PO BID [facility] Last Admin: 07/21/23 08:38 Dose: 10 mg Propranolol HCl (Propranolol Hcl 10 Mg Tablet) 10 mg PO BID [facility]; Protocol Last Admin: 07/21/23 08:39 Dose: 10 mg Quetiapine Fumarate (Quetiapine Fumarate 25 Mg Tablet) 25 mg PO BEDTIME MRX1 [facility] Last Admin: 07/20/23 22:22 Dose: Not Given Tamsulosin HCl (Tamsulosin Hcl 0.4 Mg Capsule) 0.4 mg PO DAILY@1730 [facility] Last Admin: 07/20/23 16:31 Dose: 0.4 mg Thiamine HCl (Thiamine Hcl 100 Mg Tablet) 100 mg PO BID [facility] Last Admin: 07/21/23 08:39 Dose: 100 mg Trazodone HCl (Trazodone Hcl 50 Mg Tablet) 50 mg PO BEDTIME MRX1 PRN PRN Reason: Insomnia Last Admin: 07/17/23 21:23 Dose: 50 mg Vortioxetine (Vortioxetine Hydrobromide 10 Mg Tablet) 10 mg PO DAILY [facility] Last Admin: 07/21/23 08:38 Dose: 10 mg Allergies Allergies Allergy/AdvReac Type Severity Reaction Status Date / Time risperidone [From Risperdal] Allergy Intermediate UNKNOWN Verified 05/12/23 13:13 Sulfa (Sulfonamide Allergy Intermediate rash Verified 05/12/23 13:13 Antibiotics) From BENADRYL Allergy Intermediate DIZZY Uncoded 02/14/23 11:47 Assessment & Plan Assessment & Plan (1) Major depressive disorder, recurrent severe without psychotic features: Status: Acute Code(s): F33.2 - Major depressive disorder, recurrent severe without psychotic features Assessment and Plan: 07/18/23: Continue current treatment plan. 07/19/23: Continue current treatment plan. (2) POONAM (generalized anxiety disorder): Status: Acute Code(s): F41.1 - Generalized anxiety disorder (3) Acute UTI: Status: Acute Code(s): N39.0 - Urinary tract infection, site not specified Assessment and Plan: On antibiotics Plan Patient requires inpatient treatment for safety and stabilization depressed confused will change clonidine to p.o. Namenda and Aricept recently restarted consider increase Trintellix to 20 mg has been increased to 10 mg continue Vraylar 1.5 mg monitor for akathisia propranolol should help with those failed trial of caplyta Patient has had a clear deterioration in mentation cognition and memory some of this may relate to UTI and recent ECT would benefit from retesting initial [place] quite decreased may also do better testing in [place] OT evaluation PT will get medical clearance for ECT given patient's cognitive changes question of hypoxia at night re-evaluate need for nighttime O2 will get hospitalist consult 07/20/23 Poor cognition much worse past 3 months ? hypoxia at hs inc vraylar inc trintellix ? o 2 at hs 07/21/23 Pt s h feels he will not e able to take care of pt she remains depressed withdrawn vraylar inc to 3 mg daily Reason for continued inpatient stay Substantial Risk for: inability to function, rapid decompensation and med/psych decompensation Time Spent With Patient Time: Total time managing care of this patient today ____ minutes.
[2023-07-21] MEDS: Tamsulosin HCL 0.4 MG CAPSULE PO (16:30)
[2023-07-21 18:00] VITALS: BP 102/63; PULSE 80; RESP 18; TEMP 36; O2SAT 94
[2023-07-21] MEDS: Donepezil HCl 10 MG TABLET PO (20:01)
[2023-07-21] MEDS: QUEtiapine Fumarate 25 MG TABLET PO ×2 (20:02→21:13)
[2023-07-22 06:00] VITALS: BP 109/58; PULSE 67; RESP 17; TEMP 36.5; O2SAT 94
[2023-07-22] MEDS: Propranolol HCL 10 MG TABLET PO ×2 (08:53→21:15)
[2023-07-22] MEDS: Thiamine HCL 100 MG TABLET PO ×2 (08:53→21:15)
[2023-07-22] MEDS: Memantine HCl 10 MG TABLET PO ×2 (08:54→21:15)
[2023-07-22] MEDS: cloNIDine HCL 0.1 MG TABLET PO ×3 (08:54→21:16)
[2023-07-22] MEDS: Folic Acid 1 MG TABLET PO (08:54)
[2023-07-22] MEDS: Vortioxetine Hydrobromide 10 MG TABLET PO (08:54)
[2023-07-22] MEDS: Cariprazine HCl 3 MG CAPSULE PO (08:54)
[2023-07-22] MEDS: cefuroxime axetiL 250 MG TABLET PO ×2 (08:54→21:16)
[2023-07-22 14:08] VITALS: BP 135/62; PULSE 72; RESP 16; TEMP 36.6; O2SAT 98
--- NOTE | 2023-07-22 15:13 | MHC.CLN ---
F/U DIET=REGULAR. MAGIC CUP BID TO INCREASE NUTRITIONAL INTAKE. PROVIDES 580 KCALS, 18 G PROTEIN. INTAKE USUALLY POOR/FAIR. USUALLY ACCEPTS OATMEAL AND YOGURT AT BREAKFAST. LUNCH AND SUPPER USUALLY MASHED POTATOES AND GRILLED CHEESE. FOLLOW FOR INTAKE AND WEIGHT. RD TO FOLLOW WEEKLY.
[2023-07-22 18:00] VITALS: BP 111/60; PULSE 66; RESP 18; TEMP 35.9; O2SAT 93
[2023-07-22] MEDS: LORazepam 0.5 MG TABLET PO (18:29)
[2023-07-22] MEDS: Acetaminophen 325 MG TABLET 650 MG PO (18:29)
[2023-07-22] MEDS: Tamsulosin HCL 0.4 MG CAPSULE PO (18:29)
--- NOTE | 2023-07-22 20:22 | P.PNPSI_ITS ---
Subjective Subjective Date of Service: 07/22/23 Reason For Visit: Major depression with psychotic features Subjective Notes: Conditional Voluntary Interim History: Patient seen psychiatric follow-up patient seems resigned to going to a custodial facility mood continues to be flat but some improved range more alert tolerating Vraylar 3 mg Trintellix Mental Status Exam Mental Status Exam Patient Appearance: Disheveled Patient Orientation: Person and Place Level of Consciousness: Awake and Restless Patient Behavior: Talkative, Passive, Distractible and Isolative Mood Description: Constricted, Depressed and Flat Affect Description: Flat Patient Cognition Impaired: Yes Ability to Follow Directions: Fair Speech Pattern: Spontaneous Speech Memory Description: Remote Impaired Hallucinations: None Delusions: Not Present Thought Process: Distracted Thought Content: positive for Slowed Thinking, negative for Suicidal Ideation or negative for Homicidal Ideation Depressive Symptoms: Increased Anxiety Abnormal Motor Activity Signs and Symptoms: Restlessness Judgement: Fair Judgement and Insight: no active si Diagnostics Vital Signs (24Hr): Vital Signs - 24 hr 07/22/23 06:00 07/22/23 14:08 Temperature 97.7 F 97.8 F Pulse Rate 67 72 Respiratory Rate 17 16 Blood Pressure 109/58 L 135/62 Pulse Oximetry 94 98 Oxygen Delivery Method Room Air Room Air BMI result Body Mass Index 26.0 Labs 07/16/23 10:34 07/17/23 08:12 Medications Medications Current Medications Acetaminophen (Acetaminophen 325 Mg Tablet) 650 mg PO Q6H PRN PRN Reason: Headache/Pain Mild Scale (1-3) Last Admin: 07/22/23 18:29 Dose: 650 mg Al Hydroxide/Mg Hydroxide (Magnesium Hydrox/Alum Hydrox 30 Ml Oral.Susp) 30 ml PO Q6H PRN PRN Reason: Heartburn/Nausea Al Hydroxide/Mg Hydroxide (Magnesium Hydrox/Alum Hydrox 30 Ml Oral.Susp) 30 ml PO Q6H PRN PRN Reason: Heartburn/Nausea Cariprazine (Cariprazine Hcl 3 Mg Capsule) 3 mg PO DAILY [facility] Last Admin: 07/22/23 08:54 Dose: 3 mg Cefuroxime Axetil (Cefuroxime Axetil 250 Mg Tablet) 250 mg PO BID [facility] Stop: 07/22/23 21:01 Last Admin: 07/22/23 08:54 Dose: 250 mg Clonidine HCl (Clonidine Hcl 0.1 Mg Tablet) 0.1 mg PO TID [facility]; Protocol Last Admin: 07/22/23 14:04 Dose: 0.1 mg Donepezil HCl (Donepezil Hcl 10 Mg Tablet) 10 mg PO BEDTIME [facility] Last Admin: 07/21/23 20:01 Dose: 10 mg Folic Acid (Folic Acid 1 Mg Tablet) 1 mg PO DAILY [facility] Last Admin: 07/22/23 08:54 Dose: 1 mg Lidocaine (Lidocaine 4 % Patch Adh..Patch) 1 patch TRANSDERMA DAILY [facility]; Protocol Last Admin: 07/22/23 08:55 Dose: Not Given Lorazepam (Lorazepam 0.5 Mg Tablet) 0.5 mg PO BID PRN PRN Reason: Anxiety Last Admin: 07/22/23 18:29 Dose: 0.5 mg Magnesium Hydroxide (Milk Of Magnesia 30 Ml Oral.Susp) 30 ml PO DAILY PRN PRN Reason: Constipation Magnesium Hydroxide (Milk Of Magnesia 30 Ml Oral.Susp) 30 ml PO DAILY PRN PRN Reason: Constipation Melatonin (Melatonin 3 Mg Tablet) 6 mg PO BEDTIME PRN PRN Reason: Insomnia Last Admin: 07/18/23 21:35 Dose: 6 mg Memantine (Memantine Hcl 10 Mg Tablet) 10 mg PO BID [facility] Last Admin: 07/22/23 08:54 Dose: 10 mg Propranolol HCl (Propranolol Hcl 10 Mg Tablet) 10 mg PO BID [facility]; Protocol Last Admin: 07/22/23 08:53 Dose: 10 mg Quetiapine Fumarate (Quetiapine Fumarate 25 Mg Tablet) 25 mg PO BEDTIME MRX1 [facility] Last Admin: 07/21/23 21:13 Dose: 25 mg Tamsulosin HCl (Tamsulosin Hcl 0.4 Mg Capsule) 0.4 mg PO DAILY@1730 [facility] Last Admin: 07/22/23 18:29 Dose: 0.4 mg Thiamine HCl (Thiamine Hcl 100 Mg Tablet) 100 mg PO BID [facility] Last Admin: 07/22/23 08:53 Dose: 100 mg Trazodone HCl (Trazodone Hcl 50 Mg Tablet) 50 mg PO BEDTIME MRX1 PRN PRN Reason: Insomnia Last Admin: 07/17/23 21:23 Dose: 50 mg Vortioxetine (Vortioxetine Hydrobromide 10 Mg Tablet) 10 mg PO DAILY [facility] Last Admin: 07/22/23 08:54 Dose: 10 mg Allergies Allergies Allergy/AdvReac Type Severity Reaction Status Date / Time risperidone [From Risperdal] Allergy Intermediate UNKNOWN Verified 05/12/23 13:13 Sulfa (Sulfonamide Allergy Intermediate rash Verified 05/12/23 13:13 Antibiotics) From BENADRYL Allergy Intermediate DIZZY Uncoded 02/14/23 11:47 Assessment & Plan Assessment & Plan (1) Major depressive disorder, recurrent severe without psychotic features: Status: Acute Code(s): F33.2 - Major depressive disorder, recurrent severe without psychotic features Assessment and Plan: 07/18/23: Continue current treatment plan. 07/19/23: Continue current treatment plan. (2) POONAM (generalized anxiety disorder): Status: Acute Code(s): F41.1 - Generalized anxiety disorder (3) Acute UTI: Status: Acute Code(s): N39.0 - Urinary tract infection, site not specified Assessment and Plan: On antibiotics Plan Patient requires inpatient treatment for safety and stabilization depressed confused will change clonidine to p.o. Namenda and Aricept recently restarted consider increase Trintellix to 20 mg has been increased to 10 mg continue Vraylar 1.5 mg monitor for akathisia propranolol should help with those failed trial of caplyta Patient has had a clear deterioration in mentation cognition and memory some of this may relate to UTI and recent ECT would benefit from retesting initial [place] quite decreased may also do better testing in [place] OT evaluation PT will get medical clearance for ECT given patient's cognitive changes question of hypoxia at night re-evaluate need for nighttime O2 will get hospitalist consult 07/20/23 Poor cognition much worse past 3 months ? hypoxia at inc vraylar inc trintellix ? o 2 at 07/21/23 Pt s h feels he will not e able to take care of pt she remains depressed withdrawn vraylar inc to 3 mg daily 07/22/2023 Patient flat depressed has tentatively accepted possibility of custodial facility referral did not think her son in [place] would be very helpful in this situation Reason for continued inpatient stay Substantial Risk for: inability to function, rapid decompensation and med/psych decompensation Time Spent With Patient Time: Total time managing care of this patient today ____ minutes.
[2023-07-22] MEDS: QUEtiapine Fumarate 25 MG TABLET PO ×2 (21:15→21:29)
[2023-07-22] MEDS: Donepezil HCl 10 MG TABLET PO (21:15)
[2023-07-23 07:30] VITALS: BP 121/64; PULSE 92; RESP 18; TEMP 36.2; O2SAT 96
[2023-07-23] MEDS: Lidocaine 4 % Patch ADH..PATCH 1 PATCH TRANSDERMA (08:02)
[2023-07-23] MEDS: Vortioxetine Hydrobromide 10 MG TABLET PO (08:02)
[2023-07-23] MEDS: Cariprazine HCl 3 MG CAPSULE PO (08:03)
[2023-07-23] MEDS: Folic Acid 1 MG TABLET PO (08:03)
[2023-07-23] MEDS: Propranolol HCL 10 MG TABLET PO ×2 (08:03→20:29)
[2023-07-23] MEDS: cloNIDine HCL 0.1 MG TABLET PO ×2 (08:03→20:29)
[2023-07-23] MEDS: Thiamine HCL 100 MG TABLET PO ×2 (08:03→20:30)
[2023-07-23] MEDS: Memantine HCl 10 MG TABLET PO ×2 (08:03→20:29)
[2023-07-23] MEDS: Acetaminophen 325 MG TABLET 650 MG PO (10:33)
[2023-07-23] MEDS: LORazepam 0.5 MG TABLET PO (10:33)
[2023-07-23 10:45] VITALS: BMI 26.1
[2023-07-23 14:41] VITALS: BP 100/55; PULSE 66; RESP 16; O2SAT 95
[2023-07-23] MEDS: Tamsulosin HCL 0.4 MG CAPSULE PO (16:40)
[2023-07-23 19:35] VITALS: BP 118/57; PULSE 74; RESP 18; TEMP 36.2; O2SAT 95
[2023-07-23] MEDS: Donepezil HCl 10 MG TABLET PO (20:29)
[2023-07-23] MEDS: QUEtiapine Fumarate 25 MG TABLET PO (20:30)
--- NOTE | 2023-07-23 21:28 | HO.PSYCHPN ---
Subjective Subjective Date of Service: 07/23/23 Reason For Visit: Major depression with psychotic features Subjective Notes: Conditional Voluntary Interim History: The patient is somewhat passive and dysphoric limited engagement is felt not capable caring for her at home Medication Compliance: Yes Mental Status Exam Mental Status Exam Patient Appearance: Appropriate Patient Orientation: Person and Place Level of Consciousness: Awake and Restless Patient Behavior: Talkative, Passive, Distractible and Isolative Mood Description: Constricted, Depressed and Flat Affect Description: Flat Patient Cognition Impaired: Yes Ability to Follow Directions: Fair Speech Pattern: Impoverished and Spontaneous Speech Memory Description: Remote Impaired Hallucinations: None Delusions: Not Present Thought Process: Distracted Thought Content: positive for Slowed Thinking, negative for Suicidal Ideation or negative for Homicidal Ideation Depressive Symptoms: Increased Anxiety Abnormal Motor Activity Signs and Symptoms: Restlessness Judgement: Fair Judgement and Insight: no active si Diagnostics Vital Signs (24Hr): Vital Signs - 24 hr 07/23/23 07:30 07/23/23 14:41 07/23/23 19:35 Temperature 97.1 F 97.2 F Pulse Rate 92 66 74 Respiratory Rate 18 16 18 Blood Pressure 121/64 100/55 L 118/57 L Pulse Oximetry 96 95 95 Oxygen Delivery Method Room Air Room Air Room Air BMI result Body Mass Index 26.1 Labs 07/16/23 10:34 07/17/23 08:12 Medications Medications Current Medications Acetaminophen (Acetaminophen 325 Mg Tablet) 650 mg PO Q6H PRN PRN Reason: Headache/Pain Mild Scale (1-3) Last Admin: 07/23/23 10:33 Dose: 650 mg Al Hydroxide/Mg Hydroxide (Magnesium Hydrox/Alum Hydrox 30 Ml Oral.Susp) 30 ml PO Q6H PRN PRN Reason: Heartburn/Nausea Al Hydroxide/Mg Hydroxide (Magnesium Hydrox/Alum Hydrox 30 Ml Oral.Susp) 30 ml PO Q6H PRN PRN Reason: Heartburn/Nausea Cariprazine (Cariprazine Hcl 3 Mg Capsule) 3 mg PO DAILY [facility] Last Admin: 07/23/23 08:03 Dose: 3 mg Clonidine HCl (Clonidine Hcl 0.1 Mg Tablet) 0.1 mg PO TID [facility]; Protocol Last Admin: 07/23/23 20:29 Dose: 0.1 mg Donepezil HCl (Donepezil Hcl 10 Mg Tablet) 10 mg PO BEDTIME [facility] Last Admin: 07/23/23 20:29 Dose: 10 mg Folic Acid (Folic Acid 1 Mg Tablet) 1 mg PO DAILY [facility] Last Admin: 07/23/23 08:03 Dose: 1 mg Lidocaine (Lidocaine 4 % Patch Adh..Patch) 1 patch TRANSDERMA DAILY [facility]; Protocol Last Admin: 07/23/23 08:02 Dose: 1 patch Lorazepam (Lorazepam 0.5 Mg Tablet) 0.5 mg PO BID PRN PRN Reason: Anxiety Last Admin: 07/23/23 10:33 Dose: 0.5 mg Magnesium Hydroxide (Milk Of Magnesia 30 Ml Oral.Susp) 30 ml PO DAILY PRN PRN Reason: Constipation Magnesium Hydroxide (Milk Of Magnesia 30 Ml Oral.Susp) 30 ml PO DAILY PRN PRN Reason: Constipation Melatonin (Melatonin 3 Mg Tablet) 6 mg PO BEDTIME PRN PRN Reason: Insomnia Last Admin: 07/18/23 21:35 Dose: 6 mg Memantine (Memantine Hcl 10 Mg Tablet) 10 mg PO BID [facility] Last Admin: 07/23/23 20:29 Dose: 10 mg Propranolol HCl (Propranolol Hcl 10 Mg Tablet) 10 mg PO BID [facility]; Protocol Last Admin: 07/23/23 20:29 Dose: 10 mg Quetiapine Fumarate (Quetiapine Fumarate 25 Mg Tablet) 25 mg PO BEDTIME MRX1 [facility] Last Admin: 07/23/23 20:30 Dose: 25 mg Tamsulosin HCl (Tamsulosin Hcl 0.4 Mg Capsule) 0.4 mg PO DAILY@1730 [facility] Last Admin: 07/23/23 16:40 Dose: 0.4 mg Thiamine HCl (Thiamine Hcl 100 Mg Tablet) 100 mg PO BID [facility] Last Admin: 07/23/23 20:30 Dose: 100 mg Trazodone HCl (Trazodone Hcl 50 Mg Tablet) 50 mg PO BEDTIME MRX1 PRN PRN Reason: Insomnia Last Admin: 07/17/23 21:23 Dose: 50 mg Vortioxetine (Vortioxetine Hydrobromide 10 Mg Tablet) 10 mg PO DAILY [facility] Last Admin: 07/23/23 08:02 Dose: 10 mg Allergies Allergies Allergy/AdvReac Type Severity Reaction Status Date / Time risperidone [From Risperdal] Allergy Intermediate UNKNOWN Verified 05/12/23 13:13 Sulfa (Sulfonamide Allergy Intermediate rash Verified 05/12/23 13:13 Antibiotics) From BENADRYL Allergy Intermediate DIZZY Uncoded 02/14/23 11:47 Assessment & Plan Assessment & Plan (1) Major depressive disorder, recurrent severe without psychotic features: Status: Acute Code(s): F33.2 - Major depressive disorder, recurrent severe without psychotic features Assessment and Plan: 07/18/23: Continue current treatment plan. 07/19/23: Continue current treatment plan. (2) POONAM (generalized anxiety disorder): Status: Acute Code(s): F41.1 - Generalized anxiety disorder (3) Acute UTI: Status: Acute Code(s): N39.0 - Urinary tract infection, site not specified Assessment and Plan: On antibiotics Plan Patient requires inpatient treatment for safety and stabilization depressed confused will change clonidine to p.o. Namenda and Aricept recently restarted consider increase Trintellix to 20 mg has been increased to 10 mg continue Vraylar 1.5 mg monitor for akathisia propranolol should help with those failed trial of caplyta Patient has had a clear deterioration in mentation cognition and memory some of this may relate to UTI and recent ECT would benefit from retesting initial [place] quite decreased may also do better testing in [place] OT evaluation PT will get medical clearance for ECT given patient's cognitive changes question of hypoxia at night re-evaluate need for nighttime O2 will get hospitalist consult 07/20/23 Poor cognition much worse past 3 months ? hypoxia at hs inc vraylar inc trintellix ? o 2 at hs 07/21/23 Pt s h feels he will not e able to take care of pt she remains depressed withdrawn vraylar inc to 3 mg daily 07/22/2023 Patient flat depressed has tentatively accepted possibility of detention facility referral did not think her son in [place] would be very helpful in this situation 07/23/22 pt depressed withdrawn poor mentation inc trintellix 15 Patient educated on: medication risk/benefits Reason for continued inpatient stay Substantial Risk for: inability to function and rapid decompensation Time Spent With Patient Time: Total time managing care of this patient today ____ minutes.
[2023-07-24 06:00] VITALS: BP 114/62; PULSE 98; RESP 16; TEMP 36.5; O2SAT 97
[2023-07-24] MEDS: Propranolol HCL 10 MG TABLET PO ×2 (08:04→20:48)
[2023-07-24] MEDS: Vortioxetine Hydrobromide 5 MG TABLET 15 MG PO (08:04)
[2023-07-24] MEDS: cloNIDine HCL 0.1 MG TABLET PO ×3 (08:04→20:47)
[2023-07-24] MEDS: Thiamine HCL 100 MG TABLET PO ×2 (08:05→20:48)
[2023-07-24] MEDS: Lidocaine 4 % Patch ADH..PATCH 1 PATCH TRANSDERMA (08:05)
[2023-07-24] MEDS: Folic Acid 1 MG TABLET PO (08:05)
[2023-07-24] MEDS: Cariprazine HCl 3 MG CAPSULE PO (08:05)
[2023-07-24] MEDS: Memantine HCl 10 MG TABLET PO ×2 (08:05→20:48)
[2023-07-24 14:29] VITALS: BP 112/63
[2023-07-24] MEDS: Tamsulosin HCL 0.4 MG CAPSULE PO (16:56)
[2023-07-24 18:00] VITALS: BP 129/60; PULSE 72; RESP 17; TEMP 36.3; O2SAT 99
[2023-07-24] MEDS: Donepezil HCl 10 MG TABLET PO (20:47)
[2023-07-24] MEDS: QUEtiapine Fumarate 25 MG TABLET PO (20:48)
[2023-07-25 09:05] VITALS: BP 120/59; PULSE 108; RESP 18; TEMP 35.9; O2SAT 100
[2023-07-25] MEDS: Vortioxetine Hydrobromide 5 MG TABLET 15 MG PO (09:07)
[2023-07-25] MEDS: Cariprazine HCl 3 MG CAPSULE PO (09:07)
[2023-07-25] MEDS: cloNIDine HCL 0.1 MG TABLET PO ×3 (09:07→21:21)
[2023-07-25] MEDS: Thiamine HCL 100 MG TABLET PO ×2 (09:08→21:22)
[2023-07-25] MEDS: Folic Acid 1 MG TABLET PO (09:08)
[2023-07-25] MEDS: Lidocaine 4 % Patch ADH..PATCH 1 PATCH TRANSDERMA (09:08)
[2023-07-25] MEDS: Memantine HCl 10 MG TABLET PO ×2 (09:08→21:21)
[2023-07-25] MEDS: Propranolol HCL 10 MG TABLET PO ×2 (09:08→21:22)
[2023-07-25 14:42] VITALS: BP 116/71; PULSE 70
[2023-07-25] MEDS: Tamsulosin HCL 0.4 MG CAPSULE PO (16:38)
--- NOTE | 2023-07-25 17:23 | P.PNPSI_ITS ---
Subjective Subjective Date of Service: 07/25/23 Reason For Visit: Major depression with psychotic features Subjective Notes: Conditional Voluntary Interim History: pt slept most of the night. She reports doing well. She denies any SI/HI. She does report feeling anxious but when asked to elaborate she would say I don't know. She has been visible on the unit, good hygiene. No behavioral concerns. Medication Compliance: Yes Review of Systems Review of Systems Constitutional : No Fever, No Chills ENT/Mouth : No Ear Pain, No Nasal Congestion, No sore throat Eyes: No Eye Pain, No Swelling, No Redness Cardiovascular : No Chest Pain, No SOB Respiratory : No Cough, No Sputum, No Dyspnea Gastrointestinal : No Nausea, No Vomiting, No Diarrhea, No Hematochezia, No Melena Genitourinary : No Dysuria, No Urinary Frequency, No Hematuria Musculoskeletal : No Myalgias Skin : No Skin Lesions, No rash Neuro : No Weakness, No Numbness, No Paresthesias, No Dizziness, No Headache Psych : positive Anxiety, positive Depression, no SI/HI All other systems reviewed and are negative Yes all other systems are reviewed and are negative and Unobtainable due to mental status Mental Status Exam Mental Status Exam Patient Appearance: Appropriate Patient Orientation: Person and Place Level of Consciousness: Awake and Restless Patient Behavior: Talkative, Passive, Distractible and Isolative Mood Description: Constricted, Depressed and Flat Affect Description: Flat Patient Cognition Impaired: Yes Ability to Follow Directions: Fair Speech Pattern: Impoverished and Spontaneous Speech Memory Description: Remote Impaired Diagnostics Vital Signs (24Hr): Vital Signs - 24 hr 07/24/23 18:00 07/25/23 09:05 07/25/23 14:42 Temperature 97.3 F 96.6 F L Pulse Rate 72 108 H 70 Respiratory Rate 17 18 Blood Pressure 129/60 120/59 L 116/71 Pulse Oximetry 99 100 Oxygen Delivery Method Room Air Room Air BMI result Body Mass Index 26.1 Labs 07/16/23 10:34 07/17/23 08:12 Medications Medications Current Medications Acetaminophen (Acetaminophen 325 Mg Tablet) 650 mg PO Q6H PRN PRN Reason: Headache/Pain Mild Scale (1-3) Last Admin: 07/23/23 10:33 Dose: 650 mg Al Hydroxide/Mg Hydroxide (Magnesium Hydrox/Alum Hydrox 30 Ml Oral.Susp) 30 ml PO Q6H PRN PRN Reason: Heartburn/Nausea Al Hydroxide/Mg Hydroxide (Magnesium Hydrox/Alum Hydrox 30 Ml Oral.Susp) 30 ml PO Q6H PRN PRN Reason: Heartburn/Nausea Cariprazine (Cariprazine Hcl 3 Mg Capsule) 3 mg PO DAILY [facility] Last Admin: 07/25/23 09:07 Dose: 3 mg Clonidine HCl (Clonidine Hcl 0.1 Mg Tablet) 0.1 mg PO TID [facility]; Protocol Last Admin: 07/25/23 14:47 Dose: 0.1 mg Donepezil HCl (Donepezil Hcl 10 Mg Tablet) 10 mg PO BEDTIME [facility] Last Admin: 07/24/23 20:47 Dose: 10 mg Folic Acid (Folic Acid 1 Mg Tablet) 1 mg PO DAILY [facility] Last Admin: 07/25/23 09:08 Dose: 1 mg Lidocaine (Lidocaine 4 % Patch Adh..Patch) 1 patch TRANSDERMA DAILY [facility]; Protocol Last Admin: 07/25/23 09:08 Dose: 1 patch Lorazepam (Lorazepam 0.5 Mg Tablet) 0.5 mg PO BID PRN PRN Reason: Anxiety Last Admin: 07/23/23 10:33 Dose: 0.5 mg Magnesium Hydroxide (Milk Of Magnesia 30 Ml Oral.Susp) 30 ml PO DAILY PRN PRN Reason: Constipation Magnesium Hydroxide (Milk Of Magnesia 30 Ml Oral.Susp) 30 ml PO DAILY PRN PRN Reason: Constipation Melatonin (Melatonin 3 Mg Tablet) 6 mg PO BEDTIME PRN PRN Reason: Insomnia Last Admin: 07/18/23 21:35 Dose: 6 mg Memantine (Memantine Hcl 10 Mg Tablet) 10 mg PO BID [facility] Last Admin: 07/25/23 09:08 Dose: 10 mg Propranolol HCl (Propranolol Hcl 10 Mg Tablet) 10 mg PO BID [facility]; Protocol Last Admin: 07/25/23 09:08 Dose: 10 mg Quetiapine Fumarate (Quetiapine Fumarate 25 Mg Tablet) 25 mg PO BEDTIME MRX1 [facility] Last Admin: 07/24/23 23:08 Dose: Not Given Tamsulosin HCl (Tamsulosin Hcl 0.4 Mg Capsule) 0.4 mg PO DAILY@1730 [facility] Last Admin: 07/25/23 16:38 Dose: 0.4 mg Thiamine HCl (Thiamine Hcl 100 Mg Tablet) 100 mg PO BID [facility] Last Admin: 07/25/23 09:08 Dose: 100 mg Trazodone HCl (Trazodone Hcl 50 Mg Tablet) 50 mg PO BEDTIME MRX1 PRN PRN Reason: Insomnia Last Admin: 07/17/23 21:23 Dose: 50 mg Vortioxetine (Vortioxetine Hydrobromide 5 Mg Tablet) 15 mg PO DAILY [facility] Last Admin: 07/25/23 09:07 Dose: 15 mg Allergies Allergies Allergy/AdvReac Type Severity Reaction Status Date / Time risperidone [From Risperdal] Allergy Intermediate UNKNOWN Verified 05/12/23 13:13 Sulfa (Sulfonamide Allergy Intermediate rash Verified 05/12/23 13:13 Antibiotics) From BENADRYL Allergy Intermediate DIZZY Uncoded 02/14/23 11:47 Assessment & Plan Assessment & Plan (1) Major depressive disorder, recurrent severe without psychotic features: Status: Acute Code(s): F33.2 - Major depressive disorder, recurrent severe without psychotic features Assessment and Plan: 07/18/23: Continue current treatment plan. 07/19/23: Continue current treatment plan. (2) POONAM (generalized anxiety disorder): Status: Acute Code(s): F41.1 - Generalized anxiety disorder (3) Acute UTI: Status: Acute Code(s): N39.0 - Urinary tract infection, site not specified Assessment and Plan: On antibiotics Plan Patient requires inpatient treatment for safety and stabilization depressed confused will change clonidine to p.o. Namenda and Aricept recently restarted consider increase Trintellix to 20 mg has been increased to 10 mg continue Vraylar 1.5 mg monitor for akathisia propranolol should help with those failed trial of caplyta Patient has had a clear deterioration in mentation cognition and memory some of this may relate to UTI and recent ECT would benefit from retesting initial [place] quite decreased may also do better testing in [place] OT evaluation PT will get medical clearance for ECT given patient's cognitive changes question of hypoxia at night re-evaluate need for nighttime O2 will get hospitalist consult 07/20/23 Poor cognition much worse past 3 months ? hypoxia at hs inc vraylar inc trintellix ? o 2 at hs 07/21/23 Pt s h feels he will not e able to take care of pt she remains depressed withdrawn vraylar inc to 3 mg daily 07/22/2023 Patient flat depressed has tentatively accepted possibility of fdc facility referral did not think her son in [place] would be very helpful in this situation 07/23/22 pt depressed withdrawn poor mentation inc rennytellix 15 07/25 continue tx. Reason for continued inpatient stay Substantial Risk for: inability to function Time Spent With Patient Time: Total time managing care of this patient today ____ minutes.
[2023-07-25 18:00] VITALS: BP 113/65; PULSE 75; RESP 18; TEMP 36.1; O2SAT 95
[2023-07-25] MEDS: Donepezil HCl 10 MG TABLET PO (21:21)
[2023-07-25] MEDS: QUEtiapine Fumarate 25 MG TABLET PO (21:21)
[2023-07-25] MEDS: Melatonin 3 MG TABLET 6 MG PO (21:21)
[2023-07-26 08:05] VITALS: BP 136/71; PULSE 69; RESP 18; TEMP 36.1; O2SAT 98
[2023-07-26] MEDS: Cariprazine HCl 3 MG CAPSULE PO (08:57)
[2023-07-26] MEDS: Memantine HCl 10 MG TABLET PO ×2 (08:57→20:17)
[2023-07-26] MEDS: Vortioxetine Hydrobromide 5 MG TABLET 15 MG PO (08:57)
[2023-07-26] MEDS: Propranolol HCL 10 MG TABLET PO (08:57)
[2023-07-26] MEDS: cloNIDine HCL 0.1 MG TABLET PO ×2 (08:58→15:37)
[2023-07-26] MEDS: Thiamine HCL 100 MG TABLET PO ×2 (08:58→20:17)
[2023-07-26] MEDS: Folic Acid 1 MG TABLET PO (08:58)
[2023-07-26] MEDS: Lidocaine 4 % Patch ADH..PATCH 1 PATCH TRANSDERMA (08:58)
[2023-07-26 15:22] VITALS: BP 121/70; PULSE 72
[2023-07-26] MEDS: Tamsulosin HCL 0.4 MG CAPSULE PO (17:31)
[2023-07-26 19:30] VITALS: BP 100/56; PULSE 70; RESP 18; TEMP 35.9; O2SAT 93
[2023-07-26] MEDS: Donepezil HCl 10 MG TABLET PO (20:17)
[2023-07-26] MEDS: QUEtiapine Fumarate 25 MG TABLET PO (20:17)
--- NOTE | 2023-07-26 20:20 | PC.NURSE ---
Assumed care of patient at 19:00. Patient is alert and oriented to self, place, and month but unsure of year. Reoriented. BP soft this evening. Pt asymptomatic. Covering Dr. Venkatesh Whitten notified. Written order to hold scheduled evening propranolol and clonidine.
--- NOTE | 2023-07-26 23:51 | PC.NURSE ---
Handoff report given to RN assuming care at 23:00.
[2023-07-27] MEDS: LORazepam 0.5 MG TABLET PO ×2 (04:32→12:13)
[2023-07-27 06:00] VITALS: BP 140/76; PULSE 105; RESP 18; TEMP 36.1; O2SAT 97
[2023-07-27] MEDS: Folic Acid 1 MG TABLET PO (09:28)
[2023-07-27] MEDS: Lidocaine 4 % Patch ADH..PATCH 1 PATCH TRANSDERMA (09:28)
[2023-07-27] MEDS: Thiamine HCL 100 MG TABLET PO ×2 (09:28→20:33)
[2023-07-27] MEDS: cloNIDine HCL 0.1 MG TABLET PO ×3 (09:28→20:32)
[2023-07-27] MEDS: Vortioxetine Hydrobromide 5 MG TABLET 15 MG PO (09:28)
[2023-07-27] MEDS: Memantine HCl 10 MG TABLET PO ×2 (09:28→20:32)
[2023-07-27] MEDS: Cariprazine HCl 3 MG CAPSULE PO (09:29)
[2023-07-27] MEDS: Propranolol HCL 10 MG TABLET PO ×2 (09:33→20:32)
[2023-07-27 13:53] VITALS: BP 120/67
[2023-07-27] MEDS: Tamsulosin HCL 0.4 MG CAPSULE PO (16:30)
[2023-07-27 18:00] VITALS: BP 109/72; PULSE 89; RESP 17; TEMP 36; O2SAT 94
[2023-07-27] MEDS: Donepezil HCl 10 MG TABLET PO (20:32)
[2023-07-27] MEDS: QUEtiapine Fumarate 25 MG TABLET PO (20:33)
--- NOTE | 2023-07-28 07:10 | HO.PSYCHPN ---
Subjective Subjective Date of Service: 07/26/23 Reason For Visit: Major depression with psychotic features Subjective Notes: Conditional Voluntary Interim History: pt slept most of the night. No significant change. She continues to report doing well. She denies any SI/HI. She does report feeling anxious but when asked to elaborate she would say I don't know. She has been visible on the unit, good hygiene. No behavioral concerns. Review of Systems Review of Systems Constitutional : No Fever, No Chills ENT/Mouth : No Ear Pain, No Nasal Congestion, No sore throat Eyes: No Eye Pain, No Swelling, No Redness Cardiovascular : No Chest Pain, No SOB Respiratory : No Cough, No Sputum, No Dyspnea Gastrointestinal : No Nausea, No Vomiting, No Diarrhea, No Hematochezia, No Melena Genitourinary : No Dysuria, No Urinary Frequency, No Hematuria Musculoskeletal : No Myalgias Skin : No Skin Lesions, No rash Neuro : No Weakness, No Numbness, No Paresthesias, No Dizziness, No Headache Psych : positive Anxiety, positive Depression, no SI/HI All other systems reviewed and are negative Yes all other systems are reviewed and are negative and Unobtainable due to mental status Mental Status Exam Mental Status Exam Patient Appearance: Appropriate Patient Orientation: Person and Place Level of Consciousness: Awake and Restless Patient Behavior: Talkative, Passive, Distractible and Isolative Mood Description: Constricted, Depressed and Flat Affect Description: Flat Patient Cognition Impaired: Yes Ability to Follow Directions: Fair Speech Pattern: Impoverished and Spontaneous Speech Memory Description: Remote Impaired Diagnostics Vital Signs (24Hr): Vital Signs - 24 hr 07/27/23 13:53 07/27/23 18:00 Temperature 96.8 F Pulse Rate 89 Respiratory Rate 17 Blood Pressure 120/67 109/72 Pulse Oximetry 94 Oxygen Delivery Method Room Air BMI result Body Mass Index 26.1 Labs 07/16/23 10:34 07/17/23 08:12 Medications Medications Current Medications Acetaminophen (Acetaminophen 325 Mg Tablet) 650 mg PO Q6H PRN PRN Reason: Headache/Pain Mild Scale (1-3) Last Admin: 07/23/23 10:33 Dose: 650 mg Al Hydroxide/Mg Hydroxide (Magnesium Hydrox/Alum Hydrox 30 Ml Oral.Susp) 30 ml PO Q6H PRN PRN Reason: Heartburn/Nausea Al Hydroxide/Mg Hydroxide (Magnesium Hydrox/Alum Hydrox 30 Ml Oral.Susp) 30 ml PO Q6H PRN PRN Reason: Heartburn/Nausea Cariprazine (Cariprazine Hcl 3 Mg Capsule) 3 mg PO DAILY [facility] Last Admin: 07/27/23 09:29 Dose: 3 mg Clonidine HCl (Clonidine Hcl 0.1 Mg Tablet) 0.1 mg PO TID [facility]; Protocol Last Admin: 07/27/23 20:32 Dose: 0.1 mg Donepezil HCl (Donepezil Hcl 10 Mg Tablet) 10 mg PO BEDTIME [facility] Last Admin: 07/27/23 20:32 Dose: 10 mg Folic Acid (Folic Acid 1 Mg Tablet) 1 mg PO DAILY [facility] Last Admin: 07/27/23 09:28 Dose: 1 mg Lidocaine (Lidocaine 4 % Patch Adh..Patch) 1 patch TRANSDERMA DAILY [facility]; Protocol Last Admin: 07/27/23 09:28 Dose: 1 patch Lorazepam (Lorazepam 0.5 Mg Tablet) 0.5 mg PO BID PRN PRN Reason: Anxiety Last Admin: 07/27/23 12:13 Dose: 0.5 mg Magnesium Hydroxide (Milk Of Magnesia 30 Ml Oral.Susp) 30 ml PO DAILY PRN PRN Reason: Constipation Magnesium Hydroxide (Milk Of Magnesia 30 Ml Oral.Susp) 30 ml PO DAILY PRN PRN Reason: Constipation Melatonin (Melatonin 3 Mg Tablet) 6 mg PO BEDTIME PRN PRN Reason: Insomnia Last Admin: 07/25/23 21:21 Dose: 6 mg Memantine (Memantine Hcl 10 Mg Tablet) 10 mg PO BID [facility] Last Admin: 07/27/23 20:32 Dose: 10 mg Propranolol HCl (Propranolol Hcl 10 Mg Tablet) 10 mg PO BID [facility]; Protocol Last Admin: 07/27/23 20:32 Dose: 10 mg Quetiapine Fumarate (Quetiapine Fumarate 25 Mg Tablet) 25 mg PO BEDTIME MRX1 [facility] Last Admin: 07/27/23 22:16 Dose: Not Given Tamsulosin HCl (Tamsulosin Hcl 0.4 Mg Capsule) 0.4 mg PO DAILY@1730 [facility] Last Admin: 07/27/23 16:30 Dose: 0.4 mg Thiamine HCl (Thiamine Hcl 100 Mg Tablet) 100 mg PO BID [facility] Last Admin: 07/27/23 20:33 Dose: 100 mg Trazodone HCl (Trazodone Hcl 50 Mg Tablet) 50 mg PO BEDTIME MRX1 PRN PRN Reason: Insomnia Last Admin: 07/17/23 21:23 Dose: 50 mg Vortioxetine (Vortioxetine Hydrobromide 5 Mg Tablet) 15 mg PO DAILY [facility] Last Admin: 07/27/23 09:28 Dose: 15 mg Allergies Allergies Allergy/AdvReac Type Severity Reaction Status Date / Time risperidone [From Risperdal] Allergy Intermediate UNKNOWN Verified 05/12/23 13:13 Sulfa (Sulfonamide Allergy Intermediate rash Verified 05/12/23 13:13 Antibiotics) From BENADRYL Allergy Intermediate DIZZY Uncoded 02/14/23 11:47 Assessment & Plan Assessment & Plan (1) Major depressive disorder, recurrent severe without psychotic features: Status: Acute Code(s): F33.2 - Major depressive disorder, recurrent severe without psychotic features Assessment and Plan: 07/18/23: Continue current treatment plan. 07/19/23: Continue current treatment plan. (2) POONAM (generalized anxiety disorder): Status: Acute Code(s): F41.1 - Generalized anxiety disorder (3) Acute UTI: Status: Acute Code(s): N39.0 - Urinary tract infection, site not specified Assessment and Plan: On antibiotics Plan Patient requires inpatient treatment for safety and stabilization depressed confused will change clonidine to p.o. Namenda and Aricept recently restarted consider increase Trintellix to 20 mg has been increased to 10 mg continue Vraylar 1.5 mg monitor for akathisia propranolol should help with those failed trial of caplyta Patient has had a clear deterioration in mentation cognition and memory some of this may relate to UTI and recent ECT would benefit from retesting initial [place] quite decreased may also do better testing in [place] OT evaluation PT will get medical clearance for ECT given patient's cognitive changes question of hypoxia at night re-evaluate need for nighttime O2 will get hospitalist consult 07/20/23 Poor cognition much worse past 3 months ? hypoxia at hs inc vraylar inc trintellix ? o 2 at hs 07/21/23 Pt s h feels he will not e able to take care of pt she remains depressed withdrawn vraylar inc to 3 mg daily 07/22/2023 Patient flat depressed has tentatively accepted possibility of assisted facility referral did not think her son in [place] would be very helpful in this situation 07/23/22 pt depressed withdrawn poor mentation inc trintellix 15 07/25 continue tx. 07/26 continue tx. Reason for continued inpatient stay Substantial Risk for: inability to function Time Spent With Patient Time: Total time managing care of this patient today ____ minutes.
--- NOTE | 2023-07-28 07:11 | HO.PSYCHPN ---
Subjective Subjective Date of Service: 07/27/23 Reason For Visit: Major depression with psychotic features Subjective Notes: Conditional Voluntary Interim History: pt slept most of the night. No significant change. She continues to report doing well. She denies any SI/HI. She does report feeling anxious but when asked to elaborate she would say I don't know. She has been visible on the unit, good hygiene. No behavioral concerns. VS on low end of normal- monitor orth hotn Medication Compliance: Yes Review of Systems Review of Systems Constitutional : No Fever, No Chills ENT/Mouth : No Ear Pain, No Nasal Congestion, No sore throat Eyes: No Eye Pain, No Swelling, No Redness Cardiovascular : No Chest Pain, No SOB Respiratory : No Cough, No Sputum, No Dyspnea Gastrointestinal : No Nausea, No Vomiting, No Diarrhea, No Hematochezia, No Melena Genitourinary : No Dysuria, No Urinary Frequency, No Hematuria Musculoskeletal : No Myalgias Skin : No Skin Lesions, No rash Neuro : No Weakness, No Numbness, No Paresthesias, No Dizziness, No Headache Psych : positive Anxiety, positive Depression, no SI/HI All other systems reviewed and are negative Yes all other systems are reviewed and are negative and Unobtainable due to mental status Mental Status Exam Mental Status Exam Patient Appearance: Appropriate Patient Orientation: Person and Place Level of Consciousness: Awake and Restless Patient Behavior: Talkative, Passive, Distractible and Isolative Mood Description: Constricted, Depressed and Flat Affect Description: Flat Patient Cognition Impaired: Yes Ability to Follow Directions: Fair Speech Pattern: Impoverished and Spontaneous Speech Memory Description: Remote Impaired Diagnostics Vital Signs (24Hr): Vital Signs - 24 hr 07/27/23 13:53 07/27/23 18:00 Temperature 96.8 F Pulse Rate 89 Respiratory Rate 17 Blood Pressure 120/67 109/72 Pulse Oximetry 94 Oxygen Delivery Method Room Air BMI result Body Mass Index 26.1 Labs 07/16/23 10:34 07/17/23 08:12 Medications Medications Current Medications Acetaminophen (Acetaminophen 325 Mg Tablet) 650 mg PO Q6H PRN PRN Reason: Headache/Pain Mild Scale (1-3) Last Admin: 07/23/23 10:33 Dose: 650 mg Al Hydroxide/Mg Hydroxide (Magnesium Hydrox/Alum Hydrox 30 Ml Oral.Susp) 30 ml PO Q6H PRN PRN Reason: Heartburn/Nausea Al Hydroxide/Mg Hydroxide (Magnesium Hydrox/Alum Hydrox 30 Ml Oral.Susp) 30 ml PO Q6H PRN PRN Reason: Heartburn/Nausea Cariprazine (Cariprazine Hcl 3 Mg Capsule) 3 mg PO DAILY [facility] Last Admin: 07/27/23 09:29 Dose: 3 mg Clonidine HCl (Clonidine Hcl 0.1 Mg Tablet) 0.1 mg PO TID [facility]; Protocol Last Admin: 07/27/23 20:32 Dose: 0.1 mg Donepezil HCl (Donepezil Hcl 10 Mg Tablet) 10 mg PO BEDTIME [facility] Last Admin: 07/27/23 20:32 Dose: 10 mg Folic Acid (Folic Acid 1 Mg Tablet) 1 mg PO DAILY [facility] Last Admin: 07/27/23 09:28 Dose: 1 mg Lidocaine (Lidocaine 4 % Patch Adh..Patch) 1 patch TRANSDERMA DAILY [facility]; Protocol Last Admin: 07/27/23 09:28 Dose: 1 patch Lorazepam (Lorazepam 0.5 Mg Tablet) 0.5 mg PO BID PRN PRN Reason: Anxiety Last Admin: 07/27/23 12:13 Dose: 0.5 mg Magnesium Hydroxide (Milk Of Magnesia 30 Ml Oral.Susp) 30 ml PO DAILY PRN PRN Reason: Constipation Magnesium Hydroxide (Milk Of Magnesia 30 Ml Oral.Susp) 30 ml PO DAILY PRN PRN Reason: Constipation Melatonin (Melatonin 3 Mg Tablet) 6 mg PO BEDTIME PRN PRN Reason: Insomnia Last Admin: 07/25/23 21:21 Dose: 6 mg Memantine (Memantine Hcl 10 Mg Tablet) 10 mg PO BID [facility] Last Admin: 07/27/23 20:32 Dose: 10 mg Propranolol HCl (Propranolol Hcl 10 Mg Tablet) 10 mg PO BID [facility]; Protocol Last Admin: 07/27/23 20:32 Dose: 10 mg Quetiapine Fumarate (Quetiapine Fumarate 25 Mg Tablet) 25 mg PO BEDTIME MRX1 [facility] Last Admin: 07/27/23 22:16 Dose: Not Given Tamsulosin HCl (Tamsulosin Hcl 0.4 Mg Capsule) 0.4 mg PO DAILY@1730 [facility] Last Admin: 07/27/23 16:30 Dose: 0.4 mg Thiamine HCl (Thiamine Hcl 100 Mg Tablet) 100 mg PO BID [facility] Last Admin: 07/27/23 20:33 Dose: 100 mg Trazodone HCl (Trazodone Hcl 50 Mg Tablet) 50 mg PO BEDTIME MRX1 PRN PRN Reason: Insomnia Last Admin: 07/17/23 21:23 Dose: 50 mg Vortioxetine (Vortioxetine Hydrobromide 5 Mg Tablet) 15 mg PO DAILY [facility] Last Admin: 07/27/23 09:28 Dose: 15 mg Allergies Allergies Allergy/AdvReac Type Severity Reaction Status Date / Time risperidone [From Risperdal] Allergy Intermediate UNKNOWN Verified 05/12/23 13:13 Sulfa (Sulfonamide Allergy Intermediate rash Verified 05/12/23 13:13 Antibiotics) From BENADRYL Allergy Intermediate DIZZY Uncoded 02/14/23 11:47 Assessment & Plan Assessment & Plan (1) Major depressive disorder, recurrent severe without psychotic features: Status: Acute Code(s): F33.2 - Major depressive disorder, recurrent severe without psychotic features Assessment and Plan: 07/18/23: Continue current treatment plan. 07/19/23: Continue current treatment plan. (2) POONAM (generalized anxiety disorder): Status: Acute Code(s): F41.1 - Generalized anxiety disorder (3) Acute UTI: Status: Acute Code(s): N39.0 - Urinary tract infection, site not specified Assessment and Plan: On antibiotics Plan Patient requires inpatient treatment for safety and stabilization depressed confused will change clonidine to p.o. Namenda and Aricept recently restarted consider increase Trintellix to 20 mg has been increased to 10 mg continue Vraylar 1.5 mg monitor for akathisia propranolol should help with those failed trial of caplyta Patient has had a clear deterioration in mentation cognition and memory some of this may relate to UTI and recent ECT would benefit from retesting initial [place] quite decreased may also do better testing in [place] OT evaluation PT will get medical clearance for ECT given patient's cognitive changes question of hypoxia at night re-evaluate need for nighttime O2 will get hospitalist consult 07/20/23 Poor cognition much worse past 3 months ? hypoxia at hs inc vraylar inc trintellix ? o 2 at hs 07/21/23 Pt s h feels he will not e able to take care of pt she remains depressed withdrawn vraylar inc to 3 mg daily 07/22/2023 Patient flat depressed has tentatively accepted possibility of nursing home facility referral did not think her son in [place] would be very helpful in this situation 07/23/22 pt depressed withdrawn poor mentation inc [place] 15 07/25 continue tx. 07/26 continue tx. 07/27 continue tx. Reason for continued inpatient stay Substantial Risk for: inability to function Time Spent With Patient Time: Total time managing care of this patient today ____ minutes.
[2023-07-28 08:15] VITALS: BP 107/63; PULSE 106; RESP 18; TEMP 36.6; O2SAT 95
[2023-07-28] MEDS: Lidocaine 4 % Patch ADH..PATCH 1 PATCH TRANSDERMA (08:28)
[2023-07-28] MEDS: Memantine HCl 10 MG TABLET PO ×2 (08:29→20:53)
[2023-07-28] MEDS: Vortioxetine Hydrobromide 5 MG TABLET 15 MG PO (08:29)
[2023-07-28] MEDS: Cariprazine HCl 3 MG CAPSULE PO (08:29)
[2023-07-28] MEDS: cloNIDine HCL 0.1 MG TABLET PO ×3 (08:29→20:53)
[2023-07-28] MEDS: Propranolol HCL 10 MG TABLET PO ×2 (08:30→20:53)
[2023-07-28] MEDS: Thiamine HCL 100 MG TABLET PO ×2 (08:30→20:54)
[2023-07-28] MEDS: Folic Acid 1 MG TABLET PO (08:30)
[2023-07-28] MEDS: LORazepam 0.5 MG TABLET PO (13:16)
[2023-07-28] MEDS: Tamsulosin HCL 0.4 MG CAPSULE PO (16:45)
[2023-07-28 18:00] VITALS: BP 129/64; PULSE 85; RESP 18; TEMP 36.3; O2SAT 96
[2023-07-28] MEDS: Donepezil HCl 10 MG TABLET PO (20:53)
[2023-07-28] MEDS: QUEtiapine Fumarate 25 MG TABLET PO ×2 (20:54→22:27)
[2023-07-28] MEDS: traZODone HCL 50 MG TABLET PO (22:27)
--- NOTE | 2023-07-28 23:41 | HO.PSYCHPN ---
Subjective Subjective Date of Service: 07/28/23 Reason For Visit: Major depression with psychotic features Subjective Notes: Conditional Voluntary Interim History: pt flat dysphoric hopeless helpless eating ambulating some back pain quite depressed at times Medication Compliance: Yes Mental Status Exam Mental Status Exam Patient Appearance: Appropriate Patient Orientation: Person and Place Level of Consciousness: Awake and Restless Patient Behavior: Talkative, Passive, Distractible and Isolative Mood Description: Constricted, Depressed and Flat Affect Description: Flat Patient Cognition Impaired: Yes Ability to Follow Directions: Fair Speech Pattern: Impoverished and Spontaneous Speech Memory Description: Remote Impaired Thought Content: positive for Slowed Thinking Diagnostics Vital Signs (24Hr): Vital Signs - 24 hr 07/28/23 08:15 07/28/23 18:00 Temperature 98 F 97.3 F Pulse Rate 106 H 85 Respiratory Rate 18 18 Blood Pressure 107/63 129/64 Pulse Oximetry 95 96 Oxygen Delivery Method Room Air Room Air BMI result Body Mass Index 26.1 Labs 07/16/23 10:34 07/17/23 08:12 Medications Medications Current Medications Acetaminophen (Acetaminophen 325 Mg Tablet) 650 mg PO Q6H PRN PRN Reason: Headache/Pain Mild Scale (1-3) Last Admin: 07/23/23 10:33 Dose: 650 mg Al Hydroxide/Mg Hydroxide (Magnesium Hydrox/Alum Hydrox 30 Ml Oral.Susp) 30 ml PO Q6H PRN PRN Reason: Heartburn/Nausea Al Hydroxide/Mg Hydroxide (Magnesium Hydrox/Alum Hydrox 30 Ml Oral.Susp) 30 ml PO Q6H PRN PRN Reason: Heartburn/Nausea Cariprazine (Cariprazine Hcl 3 Mg Capsule) 3 mg PO DAILY [facility] Last Admin: 07/28/23 08:29 Dose: 3 mg Clonidine HCl (Clonidine Hcl 0.1 Mg Tablet) 0.1 mg PO TID [facility]; Protocol Last Admin: 07/28/23 20:53 Dose: 0.1 mg Donepezil HCl (Donepezil Hcl 10 Mg Tablet) 10 mg PO BEDTIME [facility] Last Admin: 07/28/23 20:53 Dose: 10 mg Folic Acid (Folic Acid 1 Mg Tablet) 1 mg PO DAILY [facility] Last Admin: 07/28/23 08:30 Dose: 1 mg Lidocaine (Lidocaine 4 % Patch Adh..Patch) 1 patch TRANSDERMA DAILY [facility]; Protocol Last Admin: 07/28/23 08:28 Dose: 1 patch Lorazepam (Lorazepam 0.5 Mg Tablet) 0.5 mg PO BID PRN PRN Reason: Anxiety Last Admin: 07/28/23 13:16 Dose: 0.5 mg Magnesium Hydroxide (Milk Of Magnesia 30 Ml Oral.Susp) 30 ml PO DAILY PRN PRN Reason: Constipation Magnesium Hydroxide (Milk Of Magnesia 30 Ml Oral.Susp) 30 ml PO DAILY PRN PRN Reason: Constipation Melatonin (Melatonin 3 Mg Tablet) 6 mg PO BEDTIME PRN PRN Reason: Insomnia Last Admin: 07/25/23 21:21 Dose: 6 mg Memantine (Memantine Hcl 10 Mg Tablet) 10 mg PO BID [facility] Last Admin: 07/28/23 20:53 Dose: 10 mg Propranolol HCl (Propranolol Hcl 10 Mg Tablet) 10 mg PO BID [facility]; Protocol Last Admin: 07/28/23 20:53 Dose: 10 mg Quetiapine Fumarate (Quetiapine Fumarate 25 Mg Tablet) 25 mg PO BEDTIME MRX1 [facility] Last Admin: 07/28/23 22:27 Dose: 25 mg Tamsulosin HCl (Tamsulosin Hcl 0.4 Mg Capsule) 0.4 mg PO DAILY@1730 [facility] Last Admin: 07/28/23 16:45 Dose: 0.4 mg Thiamine HCl (Thiamine Hcl 100 Mg Tablet) 100 mg PO BID [facility] Last Admin: 07/28/23 20:54 Dose: 100 mg Trazodone HCl (Trazodone Hcl 50 Mg Tablet) 50 mg PO BEDTIME MRX1 PRN PRN Reason: Insomnia Last Admin: 07/28/23 22:27 Dose: 50 mg Vortioxetine (Vortioxetine Hydrobromide 5 Mg Tablet) 15 mg PO DAILY [facility] Last Admin: 07/28/23 08:29 Dose: 15 mg Allergies Allergies Allergy/AdvReac Type Severity Reaction Status Date / Time risperidone [From Risperdal] Allergy Intermediate UNKNOWN Verified 05/12/23 13:13 Sulfa (Sulfonamide Allergy Intermediate rash Verified 05/12/23 13:13 Antibiotics) From BENADRYL Allergy Intermediate DIZZY Uncoded 02/14/23 11:47 Assessment & Plan Assessment & Plan (1) Major depressive disorder, recurrent severe without psychotic features: Status: Acute Code(s): F33.2 - Major depressive disorder, recurrent severe without psychotic features Assessment and Plan: 07/18/23: Continue current treatment plan. 07/19/23: Continue current treatment plan. (2) POONAM (generalized anxiety disorder): Status: Acute Code(s): F41.1 - Generalized anxiety disorder (3) Acute UTI: Status: Acute Code(s): N39.0 - Urinary tract infection, site not specified Assessment and Plan: On antibiotics Plan Patient requires inpatient treatment for safety and stabilization depressed confused will change clonidine to p.o. Namenda and Aricept recently restarted consider increase Trintellix to 20 mg has been increased to 10 mg continue Vraylar 1.5 mg monitor for akathisia propranolol should help with those failed trial of caplyta Patient has had a clear deterioration in mentation cognition and memory some of this may relate to UTI and recent ECT would benefit from retesting initial [place] quite decreased may also do better testing in [place] OT evaluation PT will get medical clearance for ECT given patient's cognitive changes question of hypoxia at night re-evaluate need for nighttime O2 will get hospitalist consult 07/20/23 Poor cognition much worse past 3 months ? hypoxia at hs inc vraylar inc trintellix ? o 2 at hs 07/21/23 Pt s h feels he will not e able to take care of pt she remains depressed withdrawn vraylar inc to 3 mg daily 07/22/2023 Patient flat depressed has tentatively accepted possibility of senior living facility referral did not think her son in [place] would be very helpful in this situation 07/23/22 pt depressed withdrawn poor mentation inc trintellix 15 07/25 continue tx. 07/26 continue tx. 07/27 continue tx. 07/28/22 cont vraylar trintellix needs much reassurance d/c planning Patient educated on: diagnosis and medication risk/benefits Informed Consent: understands Reason for continued inpatient stay Substantial Risk for: harm to self, inability to function and rapid decompensation Time Spent With Patient Time: Total time managing care of this patient today ____ minutes.
[2023-07-29] MEDS: Acetaminophen 325 MG TABLET 650 MG PO ×2 (06:36→14:37)
[2023-07-29 08:25] VITALS: BP 99/55; PULSE 90; RESP 17; TEMP 36.5; O2SAT 94
[2023-07-29] MEDS: Thiamine HCL 100 MG TABLET PO ×2 (08:58→20:03)
[2023-07-29] MEDS: Cariprazine HCl 3 MG CAPSULE PO (08:58)
[2023-07-29] MEDS: Folic Acid 1 MG TABLET PO (08:58)
[2023-07-29] MEDS: Memantine HCl 10 MG TABLET PO ×2 (08:58→20:03)
[2023-07-29] MEDS: Vortioxetine Hydrobromide 5 MG TABLET 15 MG PO (08:59)
[2023-07-29] MEDS: Propranolol HCL 10 MG TABLET PO ×2 (09:31→20:03)
--- NOTE | 2023-07-29 09:35 | PC.NURSE ---
Patient's BP this morning read 99/55, pulse 90. No complaints were observed or reported by patient, Dr. Willett notified via tiger text and per provider, patients Propanolol was given and her Clonidine was held.
--- NOTE | 2023-07-29 14:39 | MHC.CLN ---
F/U DIET=REGULAR. MAGIC CUP BID TO INCREASE NUTRITIONAL INTAKE. PROVIDES 580 KCALS, 18 G PROTEIN. REVIEW OF INTAKE X ONE WEEK SHOWS VARIABLE PO. INTAKE RANGES FROM 0-100% WITH MANY MEALS >50%. STAFF AWARE OF FOOD PREFERENCES. FOLLOW FOR INTAKE AND WEIGHT. RD TO FOLLOW WEEKLY.
[2023-07-29 15:07] VITALS: BP 111/62; PULSE 65; RESP 17; O2SAT 93
[2023-07-29] MEDS: cloNIDine HCL 0.1 MG TABLET PO ×2 (15:08→20:03)
--- NOTE | 2023-07-29 16:05 | HO.PSYCHPN ---
Subjective Subjective Date of Service: 07/29/23 Reason For Visit: Major depression with psychotic features Subjective Notes: Conditional Voluntary Interim History: Pt depressed withdrawn isolated does come out of her room at times discouraged Mental Status Exam Mental Status Exam Patient Appearance: Appropriate Patient Orientation: Person, Place and Situation Level of Consciousness: Awake and Restless Patient Behavior: Talkative, Passive, Distractible and Isolative Mood Description: Constricted, Depressed and Flat Affect Description: Flat Patient Cognition Impaired: Yes Ability to Follow Directions: Fair Speech Pattern: Impoverished and Spontaneous Speech Memory Description: Remote Impaired Thought Content: positive for Slowed Thinking Depressive Symptoms: Increased Anxiety, Changes in Appetite, Loss of Int. in Activity and Feelings of Worthlessness Diagnostics Vital Signs (24Hr): Vital Signs - 24 hr 07/28/23 18:00 07/29/23 08:25 07/29/23 15:07 Temperature 97.3 F 97.7 F Pulse Rate 85 90 65 Respiratory Rate 18 17 17 Blood Pressure 129/64 99/55 L 111/62 Pulse Oximetry 96 94 93 Oxygen Delivery Method Room Air Room Air Room Air BMI result Body Mass Index 26.1 Labs 07/16/23 10:34 07/17/23 08:12 Medications Medications Current Medications Acetaminophen (Acetaminophen 325 Mg Tablet) 650 mg PO Q6H PRN PRN Reason: Headache/Pain Mild Scale (1-3) Last Admin: 07/29/23 14:37 Dose: 650 mg Al Hydroxide/Mg Hydroxide (Magnesium Hydrox/Alum Hydrox 30 Ml Oral.Susp) 30 ml PO Q6H PRN PRN Reason: Heartburn/Nausea Al Hydroxide/Mg Hydroxide (Magnesium Hydrox/Alum Hydrox 30 Ml Oral.Susp) 30 ml PO Q6H PRN PRN Reason: Heartburn/Nausea Cariprazine (Cariprazine Hcl 3 Mg Capsule) 3 mg PO DAILY [facility] Last Admin: 07/29/23 08:58 Dose: 3 mg Clonidine HCl (Clonidine Hcl 0.1 Mg Tablet) 0.1 mg PO TID [facility]; Protocol Last Admin: 07/29/23 15:08 Dose: 0.1 mg Donepezil HCl (Donepezil Hcl 10 Mg Tablet) 10 mg PO BEDTIME [facility] Last Admin: 07/28/23 20:53 Dose: 10 mg Folic Acid (Folic Acid 1 Mg Tablet) 1 mg PO DAILY [facility] Last Admin: 07/29/23 08:58 Dose: 1 mg Lidocaine (Lidocaine 4 % Patch Adh..Patch) 1 patch TRANSDERMA DAILY [facility]; Protocol Last Admin: 07/29/23 09:02 Dose: Not Given Magnesium Hydroxide (Milk Of Magnesia 30 Ml Oral.Susp) 30 ml PO DAILY PRN PRN Reason: Constipation Magnesium Hydroxide (Milk Of Magnesia 30 Ml Oral.Susp) 30 ml PO DAILY PRN PRN Reason: Constipation Melatonin (Melatonin 3 Mg Tablet) 6 mg PO BEDTIME PRN PRN Reason: Insomnia Last Admin: 07/25/23 21:21 Dose: 6 mg Memantine (Memantine Hcl 10 Mg Tablet) 10 mg PO BID [facility] Last Admin: 07/29/23 08:58 Dose: 10 mg Propranolol HCl (Propranolol Hcl 10 Mg Tablet) 10 mg PO BID [facility]; Protocol Last Admin: 07/29/23 09:31 Dose: 10 mg Quetiapine Fumarate (Quetiapine Fumarate 25 Mg Tablet) 25 mg PO BEDTIME MRX1 [facility] Last Admin: 07/28/23 22:27 Dose: 25 mg Tamsulosin HCl (Tamsulosin Hcl 0.4 Mg Capsule) 0.4 mg PO DAILY@1730 [facility] Last Admin: 07/28/23 16:45 Dose: 0.4 mg Thiamine HCl (Thiamine Hcl 100 Mg Tablet) 100 mg PO BID [facility] Last Admin: 07/29/23 08:58 Dose: 100 mg Trazodone HCl (Trazodone Hcl 50 Mg Tablet) 50 mg PO BEDTIME MRX1 PRN PRN Reason: Insomnia Last Admin: 07/28/23 22:27 Dose: 50 mg Vortioxetine (Vortioxetine Hydrobromide 5 Mg Tablet) 15 mg PO DAILY [facility] Last Admin: 07/29/23 08:59 Dose: 15 mg Allergies Allergies Allergy/AdvReac Type Severity Reaction Status Date / Time risperidone [From Risperdal] Allergy Intermediate UNKNOWN Verified 05/12/23 13:13 Sulfa (Sulfonamide Allergy Intermediate rash Verified 05/12/23 13:13 Antibiotics) From BENADRYL Allergy Intermediate DIZZY Uncoded 02/14/23 11:47 Assessment & Plan Assessment & Plan (1) Major depressive disorder, recurrent severe without psychotic features: Status: Acute Code(s): F33.2 - Major depressive disorder, recurrent severe without psychotic features Assessment and Plan: 07/18/23: Continue current treatment plan. 07/19/23: Continue current treatment plan. (2) POONAM (generalized anxiety disorder): Status: Acute Code(s): F41.1 - Generalized anxiety disorder (3) Acute UTI: Status: Acute Code(s): N39.0 - Urinary tract infection, site not specified Assessment and Plan: On antibiotics Plan Patient requires inpatient treatment for safety and stabilization depressed confused will change clonidine to p.o. Namenda and Aricept recently restarted consider increase Trintellix to 20 mg has been increased to 10 mg continue Vraylar 1.5 mg monitor for akathisia propranolol should help with those failed trial of caplyta Patient has had a clear deterioration in mentation cognition and memory some of this may relate to UTI and recent ECT would benefit from retesting initial [place] quite decreased may also do better testing in [place] OT evaluation PT will get medical clearance for ECT given patient's cognitive changes question of hypoxia at night re-evaluate need for nighttime O2 will get hospitalist consult 07/20/23 Poor cognition much worse past 3 months ? hypoxia at hs inc vraylar inc trintellix ? o 2 at hs 07/21/23 Pt s h feels he will not e able to take care of pt she remains depressed withdrawn vraylar inc to 3 mg daily 07/22/2023 Patient flat depressed has tentatively accepted possibility of [facility] facility referral did not think her son in [place] would be very helpful in this situation 07/23/22 pt depressed withdrawn poor mentation inc trintellix 15 07/25 continue tx. 07/26 continue tx. 07/27 continue tx. 07/28/23 cont vraylar trintellix needs much reassurance d/c planning 07/29/23 cont plan of care d/c planning Reason for continued inpatient stay Substantial Risk for: inability to function and med/psych decompensation Time Spent With Patient Time: Total time managing care of this patient today ____ minutes.
[2023-07-29] MEDS: Tamsulosin HCL 0.4 MG CAPSULE PO (17:01)
[2023-07-29 20:00] VITALS: BP 126/64; PULSE 81; RESP 18; TEMP 36.4; O2SAT 96
[2023-07-29] MEDS: Melatonin 3 MG TABLET 6 MG PO (20:03)
[2023-07-29] MEDS: traZODone HCL 50 MG TABLET PO (20:03)
[2023-07-29] MEDS: Donepezil HCl 10 MG TABLET PO (20:03)
[2023-07-29] MEDS: QUEtiapine Fumarate 25 MG TABLET PO (20:03)
[2023-07-30] MEDS: Acetaminophen 325 MG TABLET 650 MG PO ×2 (06:05→13:11)
[2023-07-30 07:00] VITALS: BMI 26.0
[2023-07-30 07:30] VITALS: BP 104/57; PULSE 75; RESP 15; TEMP 36.8; O2SAT 94
[2023-07-30] MEDS: Cariprazine HCl 3 MG CAPSULE PO (09:11)
[2023-07-30] MEDS: Vortioxetine Hydrobromide 5 MG TABLET 15 MG PO (09:11)
[2023-07-30] MEDS: Thiamine HCL 100 MG TABLET PO ×2 (09:12→20:38)
[2023-07-30] MEDS: Folic Acid 1 MG TABLET PO (09:12)
[2023-07-30] MEDS: Memantine HCl 10 MG TABLET PO ×2 (09:12→20:38)
[2023-07-30] MEDS: Propranolol HCL 10 MG TABLET PO ×2 (09:21→20:37)
[2023-07-30] MEDS: cloNIDine HCL 0.1 MG TABLET PO ×3 (09:21→20:37)
--- NOTE | 2023-07-30 14:45 | P.PNPSI_ITS ---
Subjective Subjective Date of Service: 07/30/23 Reason For Visit: Major depression with psychotic features Subjective Notes: Conditional Voluntary Interim History: Patient seen in psychiatric follow-up patient's mood anxious and dysphoric. Complains of pain in her back Trintellix increased to 20 mg Medication Compliance: Yes Mental Status Exam Mental Status Exam Patient Appearance: Appropriate Patient Orientation: Person, Place and Situation Level of Consciousness: Awake and Restless Patient Behavior: Talkative, Passive, Distractible and Isolative Mood Description: Constricted, Depressed and Flat Affect Description: Flat Patient Cognition Impaired: Yes Ability to Follow Directions: Fair Speech Pattern: Impoverished and Spontaneous Speech Memory Description: Remote Impaired Thought Content: positive for Slowed Thinking Depressive Symptoms: Increased Anxiety, Changes in Appetite, Loss of Int. in Activity and Feelings of Worthlessness Diagnostics Vital Signs (24Hr): Vital Signs - 24 hr 07/29/23 15:07 07/29/23 20:00 07/30/23 07:30 Temperature 97.6 F 98.2 F Pulse Rate 65 81 75 Respiratory Rate 17 18 15 Blood Pressure 111/62 126/64 104/57 L Pulse Oximetry 93 96 94 Oxygen Delivery Method Room Air Room Air Room Air BMI result Body Mass Index 26.1 Labs 07/16/23 10:34 07/17/23 08:12 Medications Medications Current Medications Acetaminophen (Acetaminophen 325 Mg Tablet) 650 mg PO Q6H PRN PRN Reason: Headache/Pain Mild Scale (1-3) Last Admin: 07/30/23 13:11 Dose: 650 mg Al Hydroxide/Mg Hydroxide (Magnesium Hydrox/Alum Hydrox 30 Ml Oral.Susp) 30 ml PO Q6H PRN PRN Reason: Heartburn/Nausea Al Hydroxide/Mg Hydroxide (Magnesium Hydrox/Alum Hydrox 30 Ml Oral.Susp) 30 ml PO Q6H PRN PRN Reason: Heartburn/Nausea Cariprazine (Cariprazine Hcl 3 Mg Capsule) 3 mg PO DAILY [facility] Last Admin: 07/30/23 09:11 Dose: 3 mg Clonidine HCl (Clonidine Hcl 0.1 Mg Tablet) 0.1 mg PO TID [facility]; Protocol Last Admin: 07/30/23 09:21 Dose: 0.1 mg Donepezil HCl (Donepezil Hcl 10 Mg Tablet) 10 mg PO BEDTIME [facility] Last Admin: 07/29/23 20:03 Dose: 10 mg Folic Acid (Folic Acid 1 Mg Tablet) 1 mg PO DAILY [facility] Last Admin: 07/30/23 09:12 Dose: 1 mg Lidocaine (Lidocaine 4 % Patch Adh..Patch) 1 patch TRANSDERMA DAILY [facility]; Protocol Last Admin: 07/30/23 09:11 Dose: Not Given Magnesium Hydroxide (Milk Of Magnesia 30 Ml Oral.Susp) 30 ml PO DAILY PRN PRN Reason: Constipation Magnesium Hydroxide (Milk Of Magnesia 30 Ml Oral.Susp) 30 ml PO DAILY PRN PRN Reason: Constipation Melatonin (Melatonin 3 Mg Tablet) 6 mg PO BEDTIME PRN PRN Reason: Insomnia Last Admin: 07/29/23 20:03 Dose: 6 mg Memantine (Memantine Hcl 10 Mg Tablet) 10 mg PO BID [facility] Last Admin: 07/30/23 09:12 Dose: 10 mg Propranolol HCl (Propranolol Hcl 10 Mg Tablet) 10 mg PO BID [facility]; Protocol Last Admin: 07/30/23 09:21 Dose: 10 mg Quetiapine Fumarate (Quetiapine Fumarate 25 Mg Tablet) 25 mg PO BEDTIME MRX1 [facility] Last Admin: 07/30/23 03:50 Dose: Not Given Tamsulosin HCl (Tamsulosin Hcl 0.4 Mg Capsule) 0.4 mg PO DAILY@1730 [facility] Last Admin: 07/29/23 17:01 Dose: 0.4 mg Thiamine HCl (Thiamine Hcl 100 Mg Tablet) 100 mg PO BID [facility] Last Admin: 07/30/23 09:12 Dose: 100 mg Trazodone HCl (Trazodone Hcl 50 Mg Tablet) 50 mg PO BEDTIME MRX1 PRN PRN Reason: Insomnia Last Admin: 07/29/23 20:03 Dose: 50 mg Vortioxetine (Vortioxetine Hydrobromide 20 Mg Tablet) 20 mg PO DAILY [facility] Allergies Allergies Allergy/AdvReac Type Severity Reaction Status Date / Time risperidone [From Risperdal] Allergy Intermediate UNKNOWN Verified 05/12/23 13:13 Sulfa (Sulfonamide Allergy Intermediate rash Verified 05/12/23 13:13 Antibiotics) From BENADRYL Allergy Intermediate DIZZY Uncoded 02/14/23 11:47 Assessment & Plan Assessment & Plan (1) Major depressive disorder, recurrent severe without psychotic features: Status: Acute Code(s): F33.2 - Major depressive disorder, recurrent severe without psychotic features Assessment and Plan: 07/18/23: Continue current treatment plan. 07/19/23: Continue current treatment plan. (2) POONAM (generalized anxiety disorder): Status: Acute Code(s): F41.1 - Generalized anxiety disorder (3) Acute UTI: Status: Acute Code(s): N39.0 - Urinary tract infection, site not specified Assessment and Plan: On antibiotics Plan Patient requires inpatient treatment for safety and stabilization depressed confused will change clonidine to p.o. Namenda and Aricept recently restarted consider increase Trintellix to 20 mg has been increased to 10 mg continue Vraylar 1.5 mg monitor for akathisia propranolol should help with those failed trial of caplyta Patient has had a clear deterioration in mentation cognition and memory some of this may relate to UTI and recent ECT would benefit from retesting initial [place] quite decreased may also do better testing in [place] OT evaluation PT will get medical clearance for ECT given patient's cognitive changes question of hypoxia at night re-evaluate need for nighttime O2 will get hospitalist consult 07/20/23 Poor cognition much worse past 3 months ? hypoxia at hs inc vraylar inc trintellix ? o 2 at hs 07/21/23 Pt s h feels he will not e able to take care of pt she remains depressed withdrawn vraylar inc to 3 mg daily 07/22/2023 Patient flat depressed has tentatively accepted possibility of [facility] facility referral did not think her son in [place] would be very helpful in this situation 07/23/22 pt depressed withdrawn poor mentation inc trintellix 15 07/25 continue tx. 07/26 continue tx. 07/27 continue tx. 07/28/23 cont vraylar trintellix needs much reassurance d/c planning 07/29/23 cont plan of care d/c planning 07/30/2023 Trintellix increased to 20 mg Reason for continued inpatient stay Substantial Risk for: inability to function, rapid decompensation and med/psych decompensation Time Spent With Patient Time: Total time managing care of this patient today ____ minutes.
[2023-07-30] MEDS: Lidocaine 4 % Patch ADH..PATCH 1 PATCH TRANSDERMA (15:14)
[2023-07-30 16:35] VITALS: BP 128/69; PULSE 73
[2023-07-30] MEDS: Tamsulosin HCL 0.4 MG CAPSULE PO (16:35)
[2023-07-30 18:00] VITALS: BP 121/70; PULSE 78; TEMP 36.2; O2SAT 94
[2023-07-30] MEDS: QUEtiapine Fumarate 25 MG TABLET PO ×2 (20:37→22:06)
[2023-07-30] MEDS: Donepezil HCl 10 MG TABLET PO (20:38)
[2023-07-30] MEDS: traZODone HCL 50 MG TABLET PO (20:39)
[2023-07-31 08:11] VITALS: BP 96/58; PULSE 108; RESP 15; TEMP 36.9; O2SAT 96
[2023-07-31] MEDS: Folic Acid 1 MG TABLET PO (08:15)
[2023-07-31] MEDS: Thiamine HCL 100 MG TABLET PO ×2 (08:15→20:49)
[2023-07-31] MEDS: Cariprazine HCl 3 MG CAPSULE PO (08:15)
[2023-07-31] MEDS: Vortioxetine Hydrobromide 20 MG TABLET PO (08:15)
[2023-07-31] MEDS: Lidocaine 4 % Patch ADH..PATCH 1 PATCH TRANSDERMA (08:15)
[2023-07-31] MEDS: Memantine HCl 10 MG TABLET PO ×2 (08:15→20:49)
[2023-07-31] MEDS: cloNIDine HCL 0.1 MG TABLET PO ×2 (15:08→20:49)
[2023-07-31 18:00] VITALS: BP 133/73; PULSE 72; RESP 16; TEMP 36.6; O2SAT 93
[2023-07-31] MEDS: traZODone HCL 50 MG TABLET PO (20:49)
[2023-07-31] MEDS: QUEtiapine Fumarate 25 MG TABLET PO (20:49)
[2023-07-31] MEDS: Donepezil HCl 10 MG TABLET PO (20:49)
[2023-07-31] MEDS: Propranolol HCL 10 MG TABLET PO (20:49)
--- NOTE | 2023-07-31 23:06 | P.PNPSI_ITS ---
Subjective Subjective Date of Service: 07/31/23 Reason For Visit: Major depression with psychotic features Subjective Notes: Conditional Voluntary Interim History: pt flat dysphoric isolative on inc trintellix 20 mg Mental Status Exam Mental Status Exam Patient Appearance: Appropriate Patient Orientation: Person, Place and Situation Level of Consciousness: Awake and Restless Patient Behavior: Talkative, Passive, Distractible and Isolative Mood Description: Constricted, Depressed and Flat Affect Description: Flat Patient Cognition Impaired: Yes Ability to Follow Directions: Fair Speech Pattern: Impoverished and Spontaneous Speech Memory Description: Remote Impaired Thought Content: positive for Slowed Thinking Depressive Symptoms: Increased Anxiety, Changes in Appetite, Loss of Int. in Activity and Feelings of Worthlessness Diagnostics Vital Signs (24Hr): Vital Signs - 24 hr 07/31/23 08:11 07/31/23 18:00 Temperature 98.4 F 97.8 F Pulse Rate 108 H 72 Respiratory Rate 15 16 Blood Pressure 96/58 L 133/73 Pulse Oximetry 96 93 Oxygen Delivery Method Room Air Room Air BMI result Body Mass Index 26.0 Labs 07/16/23 10:34 07/17/23 08:12 Medications Medications Current Medications Acetaminophen (Acetaminophen 325 Mg Tablet) 650 mg PO Q6H PRN PRN Reason: Headache/Pain Mild Scale (1-3) Last Admin: 07/30/23 13:11 Dose: 650 mg Al Hydroxide/Mg Hydroxide (Magnesium Hydrox/Alum Hydrox 30 Ml Oral.Susp) 30 ml PO Q6H PRN PRN Reason: Heartburn/Nausea Al Hydroxide/Mg Hydroxide (Magnesium Hydrox/Alum Hydrox 30 Ml Oral.Susp) 30 ml PO Q6H PRN PRN Reason: Heartburn/Nausea Cariprazine (Cariprazine Hcl 3 Mg Capsule) 3 mg PO DAILY [facility] Last Admin: 07/31/23 08:15 Dose: 3 mg Clonidine HCl (Clonidine Hcl 0.1 Mg Tablet) 0.1 mg PO TID [facility]; Protocol Last Admin: 07/31/23 20:49 Dose: 0.1 mg Donepezil HCl (Donepezil Hcl 10 Mg Tablet) 10 mg PO BEDTIME [facility] Last Admin: 07/31/23 20:49 Dose: 10 mg Folic Acid (Folic Acid 1 Mg Tablet) 1 mg PO DAILY [facility] Last Admin: 07/31/23 08:15 Dose: 1 mg Ibuprofen (Ibuprofen 200 Mg Tablet) 200 mg PO Q6H PRN PRN Reason: Pain, Moderate(Pain Scale 4-6) Lidocaine (Lidocaine 4 % Patch Adh..Patch) 1 patch TRANSDERMA DAILY [facility]; Protocol Last Admin: 07/31/23 08:15 Dose: 1 patch Magnesium Hydroxide (Milk Of Magnesia 30 Ml Oral.Susp) 30 ml PO DAILY PRN PRN Reason: Constipation Magnesium Hydroxide (Milk Of Magnesia 30 Ml Oral.Susp) 30 ml PO DAILY PRN PRN Reason: Constipation Melatonin (Melatonin 3 Mg Tablet) 6 mg PO BEDTIME PRN PRN Reason: Insomnia Last Admin: 07/29/23 20:03 Dose: 6 mg Memantine (Memantine Hcl 10 Mg Tablet) 10 mg PO BID [facility] Last Admin: 07/31/23 20:49 Dose: 10 mg Propranolol HCl (Propranolol Hcl 10 Mg Tablet) 10 mg PO BID [facility]; Protocol Last Admin: 07/31/23 20:49 Dose: 10 mg Quetiapine Fumarate (Quetiapine Fumarate 25 Mg Tablet) 25 mg PO BEDTIME MRX1 [facility] Last Admin: 07/31/23 21:18 Dose: Not Given Tamsulosin HCl (Tamsulosin Hcl 0.4 Mg Capsule) 0.4 mg PO DAILY@1730 [facility] Last Admin: 07/31/23 17:29 Dose: Not Given Thiamine HCl (Thiamine Hcl 100 Mg Tablet) 100 mg PO BID [facility] Last Admin: 07/31/23 20:49 Dose: 100 mg Trazodone HCl (Trazodone Hcl 50 Mg Tablet) 50 mg PO BEDTIME MRX1 PRN PRN Reason: Insomnia Last Admin: 07/31/23 20:49 Dose: 50 mg Vortioxetine (Vortioxetine Hydrobromide 20 Mg Tablet) 20 mg PO DAILY [facility] Last Admin: 07/31/23 08:15 Dose: 20 mg Allergies Allergies Allergy/AdvReac Type Severity Reaction Status Date / Time risperidone [From Risperdal] Allergy Intermediate UNKNOWN Verified 05/12/23 13:13 Sulfa (Sulfonamide Allergy Intermediate rash Verified 05/12/23 13:13 Antibiotics) From BENADRYL Allergy Intermediate DIZZY Uncoded 02/14/23 11:47 Assessment & Plan Assessment & Plan (1) Major depressive disorder, recurrent severe without psychotic features: Status: Acute Code(s): F33.2 - Major depressive disorder, recurrent severe without psychotic features Assessment and Plan: 07/18/23: Continue current treatment plan. 2/11/24: Continue current treatment plan. (2) POONAM (generalized anxiety disorder): Status: Acute Code(s): F41.1 - Generalized anxiety disorder (3) Acute UTI: Status: Acute Code(s): N39.0 - Urinary tract infection, site not specified Assessment and Plan: On antibiotics Plan Patient requires inpatient treatment for safety and stabilization depressed confused will change clonidine to p.o. Namenda and Aricept recently restarted consider increase Trintellix to 20 mg has been increased to 10 mg continue Vraylar 1.5 mg monitor for akathisia propranolol should help with those failed trial of caplyta Patient has had a clear deterioration in mentation cognition and memory some of this may relate to UTI and recent ECT would benefit from retesting initial [place] quite decreased may also do better testing in [place] OT evaluation PT will get medical clearance for ECT given patient's cognitive changes question of hypoxia at night re-evaluate need for nighttime O2 will get hospitalist consult 07/20/23 Poor cognition much worse past 3 months ? hypoxia at hs inc vraylar inc trintellix ? o 2 at hs 07/21/23 Pt s h feels he will not e able to take care of pt she remains depressed withdrawn vraylar inc to 3 mg daily 07/22/2023 Patient flat depressed has tentatively accepted possibility of [facility] facility referral did not think her son in [place] would be very helpful in this situation 07/23/22 pt depressed withdrawn poor mentation inc trintellix 15 07/25 continue tx. 07/26 continue tx. 07/27 continue tx. 07/28/23 cont vraylar trintellix needs much reassurance d/c planning 07/29/23 cont plan of care d/c planning 07/30/2023 Trintellix increased to 20 mg 07/31/23 Cont tx plan d/c planning Reason for continued inpatient stay Substantial Risk for: harm to self, inability to function and rapid decompensation Time Spent With Patient Time: Total time managing care of this patient today ____ minutes.
[2023-07-31 23:18] VITALS: O2SAT 95
[2023-08-01 03:07] VITALS: O2SAT 94
[2023-08-01 08:14] VITALS: BP 144/76; PULSE 101; RESP 18; TEMP 36.5; O2SAT 97
[2023-08-01] MEDS: Cariprazine HCl 3 MG CAPSULE PO (08:23)
[2023-08-01] MEDS: Thiamine HCL 100 MG TABLET PO ×2 (08:23→20:32)
[2023-08-01] MEDS: Propranolol HCL 10 MG TABLET PO ×2 (08:23→20:31)
[2023-08-01] MEDS: Vortioxetine Hydrobromide 20 MG TABLET PO (08:23)
[2023-08-01] MEDS: Memantine HCl 10 MG TABLET PO ×2 (08:23→20:31)
[2023-08-01] MEDS: Folic Acid 1 MG TABLET PO (08:23)
[2023-08-01] MEDS: cloNIDine HCL 0.1 MG TABLET PO ×3 (08:23→20:30)
--- NOTE | 2023-08-01 10:12 | HO.PSYCHPN ---
Subjective Subjective Date of Service: 08/01/23 Reason For Visit: Major depression with psychotic features Subjective Notes: Conditional Voluntary Interim History: The nursing staff reported the patient had been compliant with treatment, confused at times but easily redirectable. On interview the patient denies new symptoms besides depression.. Mental Status Exam Mental Status Exam Patient Appearance: Appropriate Patient Orientation: Person and Situation Level of Consciousness: Awake and Alert Patient Behavior: Guarded and Passive Affect Description: Withdrawn Patient Cognition Impaired: Yes Ability to Follow Directions: Good Speech Pattern: Clear Hallucinations: None Delusions: Not Present Thought Process: Distracted and Slowed Thinking Thought Content: positive for [place] and positive for Poverty of Content Judgement: Fair Diagnostics Vital Signs (24Hr): Vital Signs - 24 hr 07/31/23 18:00 07/31/23 23:18 08/01/23 03:07 Temperature 97.8 F Pulse Rate 72 Respiratory Rate 16 Blood Pressure 133/73 Pulse Oximetry 93 95 94 Oxygen Delivery Method Room Air Room Air Room Air BMI result Body Mass Index 26.0 Labs 07/16/23 10:34 07/17/23 08:12 Medications Medications Current Medications Acetaminophen (Acetaminophen 325 Mg Tablet) 650 mg PO Q6H PRN PRN Reason: Headache/Pain Mild Scale (1-3) Last Admin: 07/30/23 13:11 Dose: 650 mg Al Hydroxide/Mg Hydroxide (Magnesium Hydrox/Alum Hydrox 30 Ml Oral.Susp) 30 ml PO Q6H PRN PRN Reason: Heartburn/Nausea Al Hydroxide/Mg Hydroxide (Magnesium Hydrox/Alum Hydrox 30 Ml Oral.Susp) 30 ml PO Q6H PRN PRN Reason: Heartburn/Nausea Cariprazine (Cariprazine Hcl 3 Mg Capsule) 3 mg PO DAILY [facility] Last Admin: 08/01/23 08:23 Dose: 3 mg Clonidine HCl (Clonidine Hcl 0.1 Mg Tablet) 0.1 mg PO TID [facility]; Protocol Last Admin: 08/01/23 08:23 Dose: 0.1 mg Donepezil HCl (Donepezil Hcl 10 Mg Tablet) 10 mg PO BEDTIME [facility] Last Admin: 07/31/23 20:49 Dose: 10 mg Folic Acid (Folic Acid 1 Mg Tablet) 1 mg PO DAILY [facility] Last Admin: 08/01/23 08:23 Dose: 1 mg Ibuprofen (Ibuprofen 200 Mg Tablet) 200 mg PO Q6H PRN PRN Reason: Pain, Moderate(Pain Scale 4-6) Lidocaine (Lidocaine 4 % Patch Adh..Patch) 1 patch TRANSDERMA DAILY [facility]; Protocol Last Admin: 08/01/23 08:24 Dose: Not Given Magnesium Hydroxide (Milk Of Magnesia 30 Ml Oral.Susp) 30 ml PO DAILY PRN PRN Reason: Constipation Magnesium Hydroxide (Milk Of Magnesia 30 Ml Oral.Susp) 30 ml PO DAILY PRN PRN Reason: Constipation Melatonin (Melatonin 3 Mg Tablet) 6 mg PO BEDTIME PRN PRN Reason: Insomnia Last Admin: 07/29/23 20:03 Dose: 6 mg Memantine (Memantine Hcl 10 Mg Tablet) 10 mg PO BID [facility] Last Admin: 08/01/23 08:23 Dose: 10 mg Propranolol HCl (Propranolol Hcl 10 Mg Tablet) 10 mg PO BID [facility]; Protocol Last Admin: 08/01/23 08:23 Dose: 10 mg Quetiapine Fumarate (Quetiapine Fumarate 25 Mg Tablet) 25 mg PO BEDTIME MRX1 [facility] Last Admin: 07/31/23 21:18 Dose: Not Given Tamsulosin HCl (Tamsulosin Hcl 0.4 Mg Capsule) 0.4 mg PO DAILY@1730 [facility] Last Admin: 07/31/23 17:29 Dose: Not Given Thiamine HCl (Thiamine Hcl 100 Mg Tablet) 100 mg PO BID [facility] Last Admin: 08/01/23 08:23 Dose: 100 mg Trazodone HCl (Trazodone Hcl 50 Mg Tablet) 50 mg PO BEDTIME MRX1 PRN PRN Reason: Insomnia Last Admin: 07/31/23 20:49 Dose: 50 mg Vortioxetine (Vortioxetine Hydrobromide 20 Mg Tablet) 20 mg PO DAILY [facility] Last Admin: 08/01/23 08:23 Dose: 20 mg Allergies Allergies Allergy/AdvReac Type Severity Reaction Status Date / Time risperidone [From Risperdal] Allergy Intermediate UNKNOWN Verified 05/12/23 13:13 Sulfa (Sulfonamide Allergy Intermediate rash Verified 05/12/23 13:13 Antibiotics) From BENADRYL Allergy Intermediate DIZZY Uncoded 02/14/23 11:47 Assessment & Plan Assessment & Plan (1) Major depressive disorder, recurrent severe without psychotic features: Status: Acute Code(s): F33.2 - Major depressive disorder, recurrent severe without psychotic features Assessment and Plan: 07/18/23: Continue current treatment plan. 07/19/23: Continue current treatment plan. (2) POONAM (generalized anxiety disorder): Status: Acute Code(s): F41.1 - Generalized anxiety disorder (3) Acute UTI: Status: Acute Code(s): N39.0 - Urinary tract infection, site not specified Assessment and Plan: On antibiotics Plan Patient requires inpatient treatment for safety and stabilization depressed confused will change clonidine to p.o. Namenda and Aricept recently restarted consider increase Trintellix to 20 mg has been increased to 10 mg continue Vraylar 1.5 mg monitor for akathisia propranolol should help with those failed trial of caplyta Patient has had a clear deterioration in mentation cognition and memory some of this may relate to UTI and recent ECT would benefit from retesting initial [place] quite decreased may also do better testing in [place] OT evaluation PT will get medical clearance for ECT given patient's cognitive changes question of hypoxia at night re-evaluate need for nighttime O2 will get hospitalist consult 07/20/23 Poor cognition much worse past 3 months ? hypoxia at hs inc vraylar inc trintellix ? o 2 at hs 07/21/23 Pt s h feels he will not e able to take care of pt she remains depressed withdrawn vraylar inc to 3 mg daily 07/22/2023 Patient flat depressed has tentatively accepted possibility of correction facility referral did not think her son in [place] would be very helpful in this situation 07/23/22 pt depressed withdrawn poor mentation inc trintellix 15 07/25 continue tx. 07/26 continue tx. 07/27 continue tx. 07/28/23 cont vraylar trintellix needs much reassurance d/c planning 07/29/23 cont plan of care d/c planning 07/30/2023 Trintellix increased to 20 mg 07/31/23 Cont tx plan d/c planning Plan 1. Continue with same treatment. 2. Waiting for placement. Reason for continued inpatient stay Substantial Risk for: inability to function, rapid decompensation and med/psych decompensation Time Spent With Patient Time: Total time managing care of this patient today __20__ minutes.
[2023-08-01 14:55] VITALS: BP 141/81
[2023-08-01] MEDS: Tamsulosin HCL 0.4 MG CAPSULE PO (16:50)
[2023-08-01] MEDS: Acetaminophen 325 MG TABLET 650 MG PO (17:08)
[2023-08-01 18:00] VITALS: BP 161/70; PULSE 77; RESP 18; TEMP 36.8; O2SAT 93
[2023-08-01] MEDS: Donepezil HCl 10 MG TABLET PO (20:31)
[2023-08-01] MEDS: traZODone HCL 50 MG TABLET PO (20:32)
[2023-08-01] MEDS: QUEtiapine Fumarate 25 MG TABLET PO (20:32)
[2023-08-02 07:59] VITALS: BP 113/63; PULSE 83; RESP 18; TEMP 36.4; O2SAT 95
[2023-08-02] MEDS: Vortioxetine Hydrobromide 20 MG TABLET PO (08:02)
[2023-08-02] MEDS: Memantine HCl 10 MG TABLET PO ×2 (08:02→20:44)
[2023-08-02] MEDS: Folic Acid 1 MG TABLET PO (08:02)
[2023-08-02] MEDS: Thiamine HCL 100 MG TABLET PO ×2 (08:02→20:44)
[2023-08-02] MEDS: Propranolol HCL 10 MG TABLET PO ×2 (08:02→20:45)
[2023-08-02] MEDS: cloNIDine HCL 0.1 MG TABLET PO ×3 (08:03→20:44)
[2023-08-02] MEDS: Lidocaine 4 % Patch ADH..PATCH 1 PATCH TRANSDERMA (08:03)
[2023-08-02] MEDS: Cariprazine HCl 3 MG CAPSULE PO (08:03)
--- NOTE | 2023-08-02 11:06 | HO.PSYCHPN ---
Subjective Subjective Date of Service: 08/02/23 Reason For Visit: Major depression with psychotic features Subjective Notes: Conditional Voluntary Interim History: The nursing staff reported no changes in her mental status, she reported that she had been dysphoric but easily redirectable. She complained of back pain. She slept 7 hours. On interview the patient reports that she feels depressed but she was seen active in the unit. Mental Status Exam Mental Status Exam Patient Appearance: Well Grooomed and Appropriate Patient Orientation: Person and Situation Level of Consciousness: Awake and Appropriate Patient Behavior: Guarded and Passive Mood Description: Withdrawn Affect Description: Constricted Patient Cognition Impaired: Yes Ability to Follow Directions: Good Speech Pattern: Clear Hallucinations: None Delusions: Ideas of Reference Thought Process: Distracted and Slowed Thinking Thought Content: positive for [place] and positive for Poverty of Content Judgement: Poor Diagnostics Vital Signs (24Hr): Vital Signs - 24 hr 08/01/23 14:55 08/01/23 18:00 08/02/23 07:59 Temperature 98.2 F 97.5 F Pulse Rate 77 83 Respiratory Rate 18 18 Blood Pressure 141/81 H 161/70 H 113/63 Pulse Oximetry 93 95 Oxygen Delivery Method Room Air Room Air BMI result Body Mass Index 26.0 Labs 07/16/23 10:34 07/17/23 08:12 Medications Medications Current Medications Acetaminophen (Acetaminophen 325 Mg Tablet) 650 mg PO Q6H PRN PRN Reason: Headache/Pain Mild Scale (1-3) Last Admin: 08/01/23 17:08 Dose: 650 mg Al Hydroxide/Mg Hydroxide (Magnesium Hydrox/Alum Hydrox 30 Ml Oral.Susp) 30 ml PO Q6H PRN PRN Reason: Heartburn/Nausea Al Hydroxide/Mg Hydroxide (Magnesium Hydrox/Alum Hydrox 30 Ml Oral.Susp) 30 ml PO Q6H PRN PRN Reason: Heartburn/Nausea Cariprazine (Cariprazine Hcl 3 Mg Capsule) 3 mg PO DAILY [facility] Last Admin: 08/02/23 08:03 Dose: 3 mg Clonidine HCl (Clonidine Hcl 0.1 Mg Tablet) 0.1 mg PO TID [facility]; Protocol Last Admin: 08/02/23 08:03 Dose: 0.1 mg Donepezil HCl (Donepezil Hcl 10 Mg Tablet) 10 mg PO BEDTIME [facility] Last Admin: 08/01/23 20:31 Dose: 10 mg Folic Acid (Folic Acid 1 Mg Tablet) 1 mg PO DAILY [facility] Last Admin: 08/02/23 08:02 Dose: 1 mg Ibuprofen (Ibuprofen 200 Mg Tablet) 200 mg PO Q6H PRN PRN Reason: Pain, Moderate(Pain Scale 4-6) Lidocaine (Lidocaine 4 % Patch Adh..Patch) 1 patch TRANSDERMA DAILY [facility]; Protocol Last Admin: 08/02/23 08:03 Dose: 1 patch Magnesium Hydroxide (Milk Of Magnesia 30 Ml Oral.Susp) 30 ml PO DAILY PRN PRN Reason: Constipation Magnesium Hydroxide (Milk Of Magnesia 30 Ml Oral.Susp) 30 ml PO DAILY PRN PRN Reason: Constipation Melatonin (Melatonin 3 Mg Tablet) 6 mg PO BEDTIME PRN PRN Reason: Insomnia Last Admin: 07/29/23 20:03 Dose: 6 mg Memantine (Memantine Hcl 10 Mg Tablet) 10 mg PO BID [facility] Last Admin: 08/02/23 08:02 Dose: 10 mg Propranolol HCl (Propranolol Hcl 10 Mg Tablet) 10 mg PO BID [facility]; Protocol Last Admin: 08/02/23 08:02 Dose: 10 mg Quetiapine Fumarate (Quetiapine Fumarate 25 Mg Tablet) 25 mg PO BEDTIME MRX1 [facility] Last Admin: 08/01/23 23:31 Dose: Not Given Tamsulosin HCl (Tamsulosin Hcl 0.4 Mg Capsule) 0.4 mg PO DAILY@1730 [facility] Last Admin: 08/01/23 16:50 Dose: 0.4 mg Thiamine HCl (Thiamine Hcl 100 Mg Tablet) 100 mg PO BID [facility] Last Admin: 08/02/23 08:02 Dose: 100 mg Trazodone HCl (Trazodone Hcl 50 Mg Tablet) 50 mg PO BEDTIME MRX1 PRN PRN Reason: Insomnia Last Admin: 08/01/23 20:32 Dose: 50 mg Vortioxetine (Vortioxetine Hydrobromide 20 Mg Tablet) 20 mg PO DAILY [facility] Last Admin: 08/02/23 08:02 Dose: 20 mg Allergies Allergies Allergy/AdvReac Type Severity Reaction Status Date / Time risperidone [From Risperdal] Allergy Intermediate UNKNOWN Verified 05/12/23 13:13 Sulfa (Sulfonamide Allergy Intermediate rash Verified 05/12/23 13:13 Antibiotics) From BENADRYL Allergy Intermediate DIZZY Uncoded 02/14/23 11:47 Assessment & Plan Assessment & Plan (1) Major depressive disorder, recurrent severe without psychotic features: Status: Acute Code(s): F33.2 - Major depressive disorder, recurrent severe without psychotic features Assessment and Plan: 07/18/23: Continue current treatment plan. 07/19/23: Continue current treatment plan. (2) POONAM (generalized anxiety disorder): Status: Acute Code(s): F41.1 - Generalized anxiety disorder (3) Acute UTI: Status: Acute Code(s): N39.0 - Urinary tract infection, site not specified Assessment and Plan: On antibiotics Plan Patient requires inpatient treatment for safety and stabilization depressed confused will change clonidine to p.o. Namenda and Aricept recently restarted consider increase Trintellix to 20 mg has been increased to 10 mg continue Vraylar 1.5 mg monitor for akathisia propranolol should help with those failed trial of caplyta Patient has had a clear deterioration in mentation cognition and memory some of this may relate to UTI and recent ECT would benefit from retesting initial [place] quite decreased may also do better testing in [place] OT evaluation PT will get medical clearance for ECT given patient's cognitive changes question of hypoxia at night re-evaluate need for nighttime O2 will get hospitalist consult 07/20/23 Poor cognition much worse past 3 months ? hypoxia at hs inc vraylar inc trintellix ? o 2 at hs 07/21/23 Pt s h feels he will not e able to take care of pt she remains depressed withdrawn vraylar inc to 3 mg daily 07/22/2023 Patient flat depressed has tentatively accepted possibility of half-way facility referral did not think her son in [place] would be very helpful in this situation 07/23/22 pt depressed withdrawn poor mentation inc trintellix 15 07/25 continue tx. 07/26 continue tx. 07/27 continue tx. 07/28/23 cont vraylar trintellix needs much reassurance d/c planning 07/29/23 cont plan of care d/c planning 07/30/2023 Trintellix increased to 20 mg 07/31/23 Cont tx plan d/c planning Plan 1. Continue with same treatment. 2. Waiting for placement. Reason for continued inpatient stay Substantial Risk for: inability to function, rapid decompensation and med/psych decompensation Time Spent With Patient Time: Total time managing care of this patient today ___20_ minutes.
[2023-08-02 15:11] VITALS: BP 146/77
[2023-08-02] MEDS: Tamsulosin HCL 0.4 MG CAPSULE PO (15:14)
[2023-08-02 18:00] VITALS: BP 120/68; PULSE 75; RESP 17; TEMP 36.5; O2SAT 97
[2023-08-02] MEDS: Ibuprofen 200 MG TABLET PO (18:42)
[2023-08-02] MEDS: QUEtiapine Fumarate 25 MG TABLET PO (20:44)
[2023-08-02] MEDS: Melatonin 3 MG TABLET 6 MG PO (20:44)
[2023-08-02] MEDS: Donepezil HCl 10 MG TABLET PO (20:44)
[2023-08-03 08:00] VITALS: BP 134/66; PULSE 73; RESP 16; TEMP 36.3; O2SAT 94
[2023-08-03] MEDS: Vortioxetine Hydrobromide 20 MG TABLET PO (08:50)
[2023-08-03] MEDS: Cariprazine HCl 3 MG CAPSULE PO (08:50)
[2023-08-03] MEDS: Folic Acid 1 MG TABLET PO (08:51)
[2023-08-03] MEDS: cloNIDine HCL 0.1 MG TABLET PO ×3 (08:51→20:27)
[2023-08-03] MEDS: Thiamine HCL 100 MG TABLET PO ×2 (08:51→20:27)
[2023-08-03] MEDS: Propranolol HCL 10 MG TABLET PO ×2 (08:51→20:27)
[2023-08-03] MEDS: Memantine HCl 10 MG TABLET PO ×2 (08:52→20:26)
[2023-08-03 14:08] VITALS: BP 109/56; PULSE 71
[2023-08-03] MEDS: Tamsulosin HCL 0.4 MG CAPSULE PO (16:35)
[2023-08-03 18:00] VITALS: BP 116/56; PULSE 68; RESP 18; TEMP 36.2; O2SAT 97
--- NOTE | 2023-08-03 19:19 | P.PNPSI_ITS ---
Subjective Subjective Date of Service: 08/03/23 Reason For Visit: Major depression with psychotic features Subjective Notes: Conditional Voluntary Interim History: Patient depressed anxious ruminating observed to be tremulous restless Mental Status Exam Mental Status Exam Patient Appearance: Well Grooomed and Appropriate Patient Orientation: Person and Situation Level of Consciousness: Awake and Appropriate Patient Behavior: Guarded and Passive Mood Description: Withdrawn Affect Description: Constricted Patient Cognition Impaired: Yes Ability to Follow Directions: Good Speech Pattern: Clear Hallucinations: None Delusions: Ideas of Reference Thought Process: Distracted and Slowed Thinking Thought Content: positive for [place] and positive for Poverty of Content Judgement: Poor Diagnostics Vital Signs (24Hr): Vital Signs - 24 hr 08/03/23 08:00 08/03/23 14:08 Temperature 97.4 F Pulse Rate 73 71 Respiratory Rate 16 Blood Pressure 134/66 109/56 L Pulse Oximetry 94 Oxygen Delivery Method Room Air BMI result Body Mass Index 26.0 Labs 07/16/23 10:34 07/17/23 08:12 Medications Medications Current Medications Acetaminophen (Acetaminophen 325 Mg Tablet) 650 mg PO Q6H PRN PRN Reason: Headache/Pain Mild Scale (1-3) Last Admin: 08/01/23 17:08 Dose: 650 mg Al Hydroxide/Mg Hydroxide (Magnesium Hydrox/Alum Hydrox 30 Ml Oral.Susp) 30 ml PO Q6H PRN PRN Reason: Heartburn/Nausea Al Hydroxide/Mg Hydroxide (Magnesium Hydrox/Alum Hydrox 30 Ml Oral.Susp) 30 ml PO Q6H PRN PRN Reason: Heartburn/Nausea Cariprazine (Cariprazine Hcl 1.5 Mg Capsule) 1.5 mg PO DAILY [facility] Clonidine HCl (Clonidine Hcl 0.1 Mg Tablet) 0.1 mg PO TID [facility]; Protocol Last Admin: 08/03/23 14:12 Dose: 0.1 mg Donepezil HCl (Donepezil Hcl 10 Mg Tablet) 10 mg PO BEDTIME [facility] Last Admin: 08/02/23 20:44 Dose: 10 mg Folic Acid (Folic Acid 1 Mg Tablet) 1 mg PO DAILY [facility] Last Admin: 08/03/23 08:51 Dose: 1 mg Ibuprofen (Ibuprofen 200 Mg Tablet) 200 mg PO Q6H PRN PRN Reason: Pain, Moderate(Pain Scale 4-6) Last Admin: 08/02/23 18:42 Dose: 200 mg Lidocaine (Lidocaine 4 % Patch Adh..Patch) 1 patch TRANSDERMA DAILY [facility]; Protocol Last Admin: 08/03/23 08:54 Dose: Not Given Magnesium Hydroxide (Milk Of Magnesia 30 Ml Oral.Susp) 30 ml PO DAILY PRN PRN Reason: Constipation Magnesium Hydroxide (Milk Of Magnesia 30 Ml Oral.Susp) 30 ml PO DAILY PRN PRN Reason: Constipation Melatonin (Melatonin 3 Mg Tablet) 6 mg PO BEDTIME PRN PRN Reason: Insomnia Last Admin: 08/02/23 20:44 Dose: 6 mg Memantine (Memantine Hcl 10 Mg Tablet) 10 mg PO BID [facility] Last Admin: 08/03/23 08:52 Dose: 10 mg Propranolol HCl (Propranolol Hcl 10 Mg Tablet) 10 mg PO BID [facility]; Protocol Last Admin: 08/03/23 08:51 Dose: 10 mg Quetiapine Fumarate (Quetiapine Fumarate 25 Mg Tablet) 25 mg PO BEDTIME MRX1 [facility] Last Admin: 08/02/23 22:15 Dose: Not Given Tamsulosin HCl (Tamsulosin Hcl 0.4 Mg Capsule) 0.4 mg PO DAILY@1730 [facility] Last Admin: 08/03/23 16:35 Dose: 0.4 mg Thiamine HCl (Thiamine Hcl 100 Mg Tablet) 100 mg PO BID [facility] Last Admin: 08/03/23 08:51 Dose: 100 mg Trazodone HCl (Trazodone Hcl 50 Mg Tablet) 50 mg PO BEDTIME MRX1 PRN PRN Reason: Insomnia Last Admin: 08/01/23 20:32 Dose: 50 mg Vortioxetine (Vortioxetine Hydrobromide 20 Mg Tablet) 20 mg PO DAILY [facility] Last Admin: 08/03/23 08:50 Dose: 20 mg Allergies Allergies Allergy/AdvReac Type Severity Reaction Status Date / Time risperidone [From Risperdal] Allergy Intermediate UNKNOWN Verified 05/12/23 13:13 Sulfa (Sulfonamide Allergy Intermediate rash Verified 05/12/23 13:13 Antibiotics) From BENADRYL Allergy Intermediate DIZZY Uncoded 02/14/23 11:47 Assessment & Plan Assessment & Plan (1) Major depressive disorder, recurrent severe without psychotic features: Status: Acute Code(s): F33.2 - Major depressive disorder, recurrent severe without psychotic features Assessment and Plan: 07/18/23: Continue current treatment plan. 07/19/23: Continue current treatment plan. (2) POONAM (generalized anxiety disorder): Status: Acute Code(s): F41.1 - Generalized anxiety disorder (3) Acute UTI: Status: Acute Code(s): N39.0 - Urinary tract infection, site not specified Assessment and Plan: On antibiotics Plan Patient requires inpatient treatment for safety and stabilization depressed confused will change clonidine to p.o. Namenda and Aricept recently restarted consider increase Trintellix to 20 mg has been increased to 10 mg continue Vraylar 1.5 mg monitor for akathisia propranolol should help with those failed trial of caplyta Patient has had a clear deterioration in mentation cognition and memory some of this may relate to UTI and recent ECT would benefit from retesting initial [place] quite decreased may also do better testing in [place] OT evaluation PT will get medical clearance for ECT given patient's cognitive changes question of hypoxia at night re-evaluate need for nighttime O2 will get hospitalist consult 07/20/23 Poor cognition much worse past 3 months ? hypoxia at hs inc vraylar inc trintellix ? o 2 at hs 07/21/23 Pt s h feels he will not e able to take care of pt she remains depressed withdrawn vraylar inc to 3 mg daily 07/22/2023 Patient flat depressed has tentatively accepted possibility of alf facility referral did not think her son in [place] would be very helpful in this situation 07/23/22 pt depressed withdrawn poor mentation inc trintellix 15 07/25 continue tx. 07/26 continue tx. 07/27 continue tx. 07/28/23 cont vraylar trintellix needs much reassurance d/c planning 07/29/23 cont plan of care d/c planning 07/30/2023 Trintellix increased to 20 mg 07/31/23 Cont tx plan d/c planning 08/03/2023 Lower Vraylar to 1.5 mg patient needs much reassurance and support. Reason for continued inpatient stay Substantial Risk for: harm to self, inability to function and rapid decompensation Time Spent With Patient Time: Total time managing care of this patient today ____ minutes.
[2023-08-03] MEDS: Donepezil HCl 10 MG TABLET PO (20:26)
[2023-08-03] MEDS: traZODone HCL 50 MG TABLET PO (20:26)
[2023-08-03] MEDS: QUEtiapine Fumarate 25 MG TABLET PO (20:27)
[2023-08-04 06:00] VITALS: BP 141/79; PULSE 106; RESP 18; TEMP 36.1; O2SAT 94
[2023-08-04] MEDS: Thiamine HCL 100 MG TABLET PO ×2 (08:01→21:43)
[2023-08-04] MEDS: Cariprazine HCl 1.5 MG CAPSULE PO (08:01)
[2023-08-04] MEDS: Propranolol HCL 10 MG TABLET PO ×2 (08:01→21:43)
[2023-08-04] MEDS: Folic Acid 1 MG TABLET PO (08:01)
[2023-08-04] MEDS: cloNIDine HCL 0.1 MG TABLET PO ×3 (08:02→21:44)
[2023-08-04] MEDS: Vortioxetine Hydrobromide 20 MG TABLET PO (08:02)
[2023-08-04] MEDS: Memantine HCl 10 MG TABLET PO ×2 (08:02→21:43)
--- NOTE | 2023-08-04 13:45 | P.PNPSI_ITS ---
Subjective Subjective Date of Service: 08/04/23 Reason For Visit: Major depression with psychotic features Subjective Notes: Conditional Voluntary Interim History: pt seen remains depressed but less agitated on lower dose vraylar pain management consult was ordered Medication Compliance: Yes Side effects from medications: Yes Review of Systems Medical Review of Systems: unchanged Mental Status Exam Mental Status Exam Patient Appearance: Appropriate Patient Orientation: Person, Place and Situation Level of Consciousness: Awake and Appropriate Patient Behavior: Cooperative, Passive, Anxious and Avoidant Mood Description: Withdrawn Affect Description: Constricted Patient Cognition Impaired: Yes Ability to Follow Directions: Good Speech Pattern: Clear and [place] Memory Description: Episodic Impaired Hallucinations: None Delusions: Ideas of Reference Thought Process: Distracted and Slowed Thinking Thought Content: positive for [place] and positive for Poverty of Content Judgement: Poor Diagnostics Vital Signs (24Hr): Vital Signs - 24 hr 08/03/23 14:08 08/03/23 18:00 08/04/23 06:00 Temperature 97.2 F 97 F Pulse Rate 71 68 106 H Respiratory Rate 18 18 Blood Pressure 109/56 L 116/56 L 141/79 H Pulse Oximetry 97 94 Oxygen Delivery Method Room Air Room Air BMI result Body Mass Index 26.0 Labs 07/16/23 10:34 07/17/23 08:12 Medications Medications Current Medications Acetaminophen (Acetaminophen 325 Mg Tablet) 650 mg PO Q6H PRN PRN Reason: Headache/Pain Mild Scale (1-3) Last Admin: 08/01/23 17:08 Dose: 650 mg Al Hydroxide/Mg Hydroxide (Magnesium Hydrox/Alum Hydrox 30 Ml Oral.Susp) 30 ml PO Q6H PRN PRN Reason: Heartburn/Nausea Al Hydroxide/Mg Hydroxide (Magnesium Hydrox/Alum Hydrox 30 Ml Oral.Susp) 30 ml PO Q6H PRN PRN Reason: Heartburn/Nausea Cariprazine (Cariprazine Hcl 1.5 Mg Capsule) 1.5 mg PO DAILY [facility] Last Admin: 08/04/23 08:01 Dose: 1.5 mg Clonidine HCl (Clonidine Hcl 0.1 Mg Tablet) 0.1 mg PO TID [facility]; Protocol Last Admin: 08/04/23 08:02 Dose: 0.1 mg Donepezil HCl (Donepezil Hcl 10 Mg Tablet) 10 mg PO BEDTIME [facility] Last Admin: 08/03/23 20:26 Dose: 10 mg Folic Acid (Folic Acid 1 Mg Tablet) 1 mg PO DAILY [facility] Last Admin: 08/04/23 08:01 Dose: 1 mg Ibuprofen (Ibuprofen 200 Mg Tablet) 200 mg PO Q6H PRN PRN Reason: Pain, Moderate(Pain Scale 4-6) Last Admin: 08/02/23 18:42 Dose: 200 mg Lidocaine (Lidocaine 4 % Patch Adh..Patch) 1 patch TRANSDERMA DAILY [facility]; Protocol Last Admin: 08/04/23 08:01 Dose: Not Given Magnesium Hydroxide (Milk Of Magnesia 30 Ml Oral.Susp) 30 ml PO DAILY PRN PRN Reason: Constipation Magnesium Hydroxide (Milk Of Magnesia 30 Ml Oral.Susp) 30 ml PO DAILY PRN PRN Reason: Constipation Melatonin (Melatonin 3 Mg Tablet) 6 mg PO BEDTIME PRN PRN Reason: Insomnia Last Admin: 08/02/23 20:44 Dose: 6 mg Memantine (Memantine Hcl 10 Mg Tablet) 10 mg PO BID [facility] Last Admin: 08/04/23 08:02 Dose: 10 mg Propranolol HCl (Propranolol Hcl 10 Mg Tablet) 10 mg PO BID [facility]; Protocol Last Admin: 08/04/23 08:01 Dose: 10 mg Quetiapine Fumarate (Quetiapine Fumarate 25 Mg Tablet) 25 mg PO BEDTIME MRX1 [facility] Last Admin: 08/04/23 01:53 Dose: Not Given Tamsulosin HCl (Tamsulosin Hcl 0.4 Mg Capsule) 0.4 mg PO DAILY@1730 [facility] Last Admin: 08/03/23 16:35 Dose: 0.4 mg Thiamine HCl (Thiamine Hcl 100 Mg Tablet) 100 mg PO BID [facility] Last Admin: 08/04/23 08:01 Dose: 100 mg Trazodone HCl (Trazodone Hcl 50 Mg Tablet) 50 mg PO BEDTIME MRX1 PRN PRN Reason: Insomnia Last Admin: 08/03/23 20:26 Dose: 50 mg Vortioxetine (Vortioxetine Hydrobromide 20 Mg Tablet) 20 mg PO DAILY [facility] Last Admin: 08/04/23 08:02 Dose: 20 mg Allergies Allergies Allergy/AdvReac Type Severity Reaction Status Date / Time risperidone [From Risperdal] Allergy Intermediate UNKNOWN Verified 05/12/23 13:13 Sulfa (Sulfonamide Allergy Intermediate rash Verified 05/12/23 13:13 Antibiotics) From BENADRYL Allergy Intermediate DIZZY Uncoded 02/14/23 11:47 Assessment & Plan Assessment & Plan (1) Major depressive disorder, recurrent severe without psychotic features: Status: Acute Code(s): F33.2 - Major depressive disorder, recurrent severe without psychotic features Assessment and Plan: 07/18/23: Continue current treatment plan. 07/19/23: Continue current treatment plan. (2) POONAM (generalized anxiety disorder): Status: Acute Code(s): F41.1 - Generalized anxiety disorder Plan Patient requires inpatient treatment for safety and stabilization depressed confused will change clonidine to p.o. Namenda and Aricept recently restarted consider increase Trintellix to 20 mg has been increased to 10 mg continue Vraylar 1.5 mg monitor for akathisia propranolol should help with those failed trial of caplyta Patient has had a clear deterioration in mentation cognition and memory some of this may relate to UTI and recent ECT would benefit from retesting initial [place] quite decreased may also do better testing in [place] OT evaluation PT will get medical clearance for ECT given patient's cognitive changes question of hypoxia at night re-evaluate need for nighttime O2 will get hospitalist consult 07/20/23 Poor cognition much worse past 3 months ? hypoxia at hs inc vraylar inc trintellix ? o 2 at hs 07/21/23 Pt s h feels he will not e able to take care of pt she remains depressed withdrawn vraylar inc to 3 mg daily 07/22/2023 Patient flat depressed has tentatively accepted possibility of assisted facility referral did not think her son in [place] would be very helpful in this situation 07/23/22 pt depressed withdrawn poor mentation inc trintellix 15 07/25 continue tx. 07/26 continue tx. 07/27 continue tx. 07/28/23 cont vraylar trintellix needs much reassurance d/c planning 07/29/23 cont plan of care d/c planning 07/30/2023 Trintellix increased to 20 mg 07/31/23 Cont tx plan d/c planning 08/03/2023 Lower Vraylar to 1.5 mg patient needs much reassurance and support. 08/04/23 Pain consult d/c planning montor respose to dec vraylar Informed Consent: further education needed Reason for continued inpatient stay Substantial Risk for: inability to function, rapid decompensation and med/psych decompensation Time Spent With Patient Time: Total time managing care of this patient today ____ minutes.
[2023-08-04] MEDS: Tamsulosin HCL 0.4 MG CAPSULE PO (16:20)
[2023-08-04 20:22] VITALS: BP 133/63; PULSE 81; RESP 16; TEMP 36.3; O2SAT 95
--- NOTE | 2023-08-04 20:31 | PM.EVENT ---
Event Note Date of Service: 08/04/23 Event Note: Rapid response was called as patient apparently seemed to lower herself and fall on her knees while coming into the room from the hallway. Vital signs within normal limits. No focal deficits on neurological examination. Patient did not pass out and did not have any jerking movement of extremities. No concern for syncope or seizure. No swelling or injury of the knees. No external injury to the legs. Patient denies chest pain or palpitations. Patient did not hit her head. The patient thinks that she tripped on something and fell. The nursing staff states that the patient occasionally seems to act out and lowers herself to mimic a fall. No further investigation or evaluation warranted. Fall likely mechanical versus behavioral. Time Spent With Patient Time: Total time managing care of this patient today ____ minutes.
[2023-08-04] MEDS: Melatonin 3 MG TABLET 6 MG PO (21:43)
[2023-08-04] MEDS: QUEtiapine Fumarate 25 MG TABLET PO (21:44)
[2023-08-04] MEDS: Donepezil HCl 10 MG TABLET PO (21:44)
[2023-08-04] MEDS: Acetaminophen 325 MG TABLET 650 MG PO (22:27)
[2023-08-05] MEDS: Ibuprofen 200 MG TABLET PO ×2 (00:26→21:27)
[2023-08-05] MEDS: traZODone HCL 50 MG TABLET PO (00:27)
--- NOTE | 2023-08-05 06:19 | PC.NURSE ---
Patient was observed by staff in the evening lowering herself to the floor, ambulated out of room and kneeled at the door. Patient was redirected by this RN and assisted back to bed. Hospitalist notified and adverse findings noted upon assessment. Will continue to monitor for safety.
[2023-08-05 08:50] VITALS: BP 113/78; PULSE 70; RESP 17; TEMP 36.5; O2SAT 96
[2023-08-05] MEDS: Vortioxetine Hydrobromide 20 MG TABLET PO (08:51)
[2023-08-05] MEDS: Memantine HCl 10 MG TABLET PO ×2 (08:52→21:27)
[2023-08-05] MEDS: cloNIDine HCL 0.1 MG TABLET PO ×3 (08:52→21:27)
[2023-08-05] MEDS: Thiamine HCL 100 MG TABLET PO ×2 (08:52→21:27)
[2023-08-05] MEDS: Folic Acid 1 MG TABLET PO (08:52)
[2023-08-05] MEDS: Propranolol HCL 10 MG TABLET PO ×2 (08:52→21:27)
[2023-08-05] MEDS: Cariprazine HCl 1.5 MG CAPSULE PO (08:52)
--- NOTE | 2023-08-05 13:00 | P.CNPAIN_ITS ---
Review of Systems Review of Systems: Constitutional : No Fever, No Chills ENT/Mouth : No Ear Pain, No Nasal Congestion, No sore throat Eyes: No Eye Pain, No Swelling, No Redness Cardiovascular : No Chest Pain, No SOB Respiratory : No Cough, No Sputum, No Dyspnea Gastrointestinal : No Nausea, No Vomiting, No Diarrhea, No Hematochezia, No Melena Genitourinary : No Dysuria, No Urinary Frequency, No Hematuria Musculoskeletal : No Myalgias Skin : No Skin Lesions, No rash Neuro : No Weakness, No Numbness, No Paresthesias, No Dizziness, No Headache Psych : positive Anxiety, positive Depression, no SI/HI All other systems reviewed and are negative Yes all other systems are reviewed and are negative and Unobtainable due to mental status Musculoskeletal: Musculoskeletal: Reports back pain, Reports atrophy and Denies radiating pain into limb PMFSH Past Medical History Medical History (Updated 08/06/23 @ 07:59 by Naveen Avina MD) Nocturnal hypoxia Dementia Severe recurrent major depression w/psychotic features, mood-congruent Has daytime drowsiness Preoperative examination Elevated glucose Screening for colon cancer Screening for diabetes mellitus Obesity (BMI 30-39.9) Confused but orients easily Depression, major, severe recurrence Abnormal serum protein electrophoresis Mild recurrent major depression Anxiety and depression Encounter for Medicare annual wellness exam Removal of [place] Depression with anxiety Abdominal distention Weight gain Major depression, recurrent, full remission POONAM (generalized anxiety disorder) Hypothyroidism Hyperparathyroidism Multinodular thyroid Vitamin D deficiency Osteoporosis Surgical History Hx of colonoscopy Hx of kyphoplasty Hx of section Family History Family History Father Myocardial infarction CVD (cardiovascular disease) Mother Dementia Alzheimer disease Other Mental health disorder Social History Social History Household Members: Spouse Housing: Apartment Do you presently have visiting nurse or other home services: No Alcohol intake: never Comment: 1:1 sitter at bedside Patient Tobacco Use Status: Never used Tobacco e-Cigarette/Vaping Use: Never Used Second Hand Smoke Exposure: No Use of substances other than those prescribed or required for medical reasons: No Currently Displaying Signs/Symptoms of Drug Intoxication Withdrawal: No Have you been hit, kicked, punched, or otherwise hurt by someone within the past year? If so, by whom?: No Do you feel safe in your current relationship?: Yes Is there a partner from a previous relationship who is making you feel unsafe now?: No Are you made to feel afraid or neglected: No Spiritual Healthcare Practices: I believe in God Advance Directives: No Advance Directives Information Provided: No Healthcare Proxy: Yes Do you have thoughts of harming others: None Do you have a plan to hurt others: No Plan Recently lost weight without trying: No How much weight loss: Not applicable Eating poorly because of decreased appetite: No Nutrition screen score: 0 Nutrition Risks: No Nutritional Risk Patient : No : No Poor oral hygiene: No service: No Current occupational status: unemployed Sexual orientation: Straight/Heterosexual Cognitive needs: No Hearing needs: No Physical Exam Vital Signs: Vital Signs: Last Vital Signs Temp 97.7 F 08/05/23 08:50 Pulse 70 08/05/23 08:50 Resp 17 08/05/23 08:50 BP 113/78 08/05/23 08:50 Pulse Ox 96 08/05/23 08:50 O2 Del Method Room Air 08/05/23 08:50 BMI result Body Mass Index 26.0 Const: General: no acute distress Eyes: General: appearance normal, both eyes and all related structures EOM: EOMs intact bilaterally Neck: Neck: Yes full ROM Chest: Chest palpation & inspection: normal inspection of the chest Resp: Effort & Inspection: normal respiratory effort, able to speak in complete sentences, normal respiratory pattern, no audible wheezes and no cough Cardio: Jugular venous distension: no JVD GI: Inspection: Yes normal to inspection Back/Spine/Pelvis: Other: Shuffling gait, denies radiation of the pain into bilateral lower extremities. Denies lower extremities weakness or numbness. Tenderness on palpation in the projection of T12-L1 and L2 vertebra. Extrem: General: No pedal edema Psych: Appearance: grossly normal Mental Status: mental status grossly normal Speech and movement: Clear speech present Affect: Indifferent affect present Attitude: cooperative Thought content: Normal thought content present Insight: Fair insight present (Psych) Judgement: Fair j udgement present (Psych) Assessment and Plan (1) Spondylosis without myelopathy or radiculopathy, lumbar region: Status: Acute (2) Psychotic depression: Status: Acute (3) Severe recurrent major depression w/psychotic features, mood-congruent: Status: Acute (4) Major depressive disorder, recurrent severe without psychotic features: Status: Acute Plan This patient suffering from spondylosis of lumbar spine and multiple old compression fractures of the lumbar spine. There is tenderness on palpation in the projection of L1-L2 and L3 vertebras. She denies radiation of the pain. Most likely her pain is secondary to spondylosis and facet joint arthropathy. Due to her mental status I do not think that neuromodulation would be a good way of treating this patient's pain, this is why I offered to her therapeutic T12-L1 L2 L3 bilateral medial branch block. It is not clear for me whether the patient can sign her own consent. It is also remains to be seen whether she can tolerate the procedure without sedation. With history of psychotic depression she might not be able to stand still on the operating table without anesthesia assistance. We will schedule this procedure as soon as this issue will be clarified. Total time managing care of this patient today: 30 minutes.
--- NOTE | 2023-08-05 13:26 | MHC.CLN ---
F/U DIET=REGULAR. MAGIC CUP BID TO INCREASE NUTRITIONAL INTAKE. PROVIDES 580 KCALS, 18 G PROTEIN. INTAKE CONTINUES VARIABLE, 0-100% WITH MOST MEALS >50%. STAFF AWARE OF FOOD PREFERENCES. FOLLOW FOR INTAKE AND WEIGHT. RD TO FOLLOW WEEKLY.
[2023-08-05 14:46] VITALS: BP 123/60; PULSE 64
[2023-08-05] MEDS: Tamsulosin HCL 0.4 MG CAPSULE PO (17:07)
[2023-08-05 18:00] VITALS: BP 112/70; PULSE 64; RESP 18; TEMP 36.4; O2SAT 93
--- NOTE | 2023-08-05 21:25 | P.PNPSI_ITS ---
Subjective Subjective Date of Service: 08/05/23 Reason For Visit: Major depression with psychotic features Subjective Notes: Conditional Voluntary Interim History: Patient seen in psychiatric patient's mood depressed flat with periods of anxiety Tends to be isolative Mental Status Exam Mental Status Exam Patient Appearance: Appropriate Patient Orientation: Person, Place and Situation Level of Consciousness: Awake and Appropriate Patient Behavior: Cooperative, Passive, Anxious and Avoidant Mood Description: Withdrawn Affect Description: Constricted Patient Cognition Impaired: Yes Ability to Follow Directions: Good Speech Pattern: Clear and Monotone Memory Description: Episodic Impaired Hallucinations: None Delusions: Ideas of Reference Thought Process: Distracted and Slowed Thinking Thought Content: positive for [place] and positive for Poverty of Content Judgement: Poor Diagnostics Vital Signs (24Hr): Vital Signs - 24 hr 08/05/23 08:50 08/05/23 14:46 Temperature 97.7 F Pulse Rate 70 64 Respiratory Rate 17 Blood Pressure 113/78 123/60 Pulse Oximetry 96 Oxygen Delivery Method Room Air BMI result Body Mass Index 26.0 Labs 07/16/23 10:34 07/17/23 08:12 Medications Medications Current Medications Acetaminophen (Acetaminophen 325 Mg Tablet) 650 mg PO Q6H PRN PRN Reason: Headache/Pain Mild Scale (1-3) Last Admin: 08/04/23 22:27 Dose: 650 mg Al Hydroxide/Mg Hydroxide (Magnesium Hydrox/Alum Hydrox 30 Ml Oral.Susp) 30 ml PO Q6H PRN PRN Reason: Heartburn/Nausea Al Hydroxide/Mg Hydroxide (Magnesium Hydrox/Alum Hydrox 30 Ml Oral.Susp) 30 ml PO Q6H PRN PRN Reason: Heartburn/Nausea Cariprazine (Cariprazine Hcl 1.5 Mg Capsule) 1.5 mg PO DAILY [facility] Last Admin: 08/05/23 08:52 Dose: 1.5 mg Clonidine HCl (Clonidine Hcl 0.1 Mg Tablet) 0.1 mg PO TID [facility]; Protocol Last Admin: 08/05/23 14:48 Dose: 0.1 mg Donepezil HCl (Donepezil Hcl 10 Mg Tablet) 10 mg PO BEDTIME [facility] Last Admin: 08/04/23 21:44 Dose: 10 mg Folic Acid (Folic Acid 1 Mg Tablet) 1 mg PO DAILY [facility] Last Admin: 08/05/23 08:52 Dose: 1 mg Ibuprofen (Ibuprofen 200 Mg Tablet) 200 mg PO Q6H PRN PRN Reason: Pain, Moderate(Pain Scale 4-6) Last Admin: 08/05/23 00:26 Dose: 200 mg Lidocaine (Lidocaine 4 % Patch Adh..Patch) 1 patch TRANSDERMA DAILY [facility]; Protocol Last Admin: 08/05/23 08:55 Dose: Not Given Magnesium Hydroxide (Milk Of Magnesia 30 Ml Oral.Susp) 30 ml PO DAILY PRN PRN Reason: Constipation Magnesium Hydroxide (Milk Of Magnesia 30 Ml Oral.Susp) 30 ml PO DAILY PRN PRN Reason: Constipation Melatonin (Melatonin 3 Mg Tablet) 6 mg PO BEDTIME PRN PRN Reason: Insomnia Last Admin: 08/04/23 21:43 Dose: 6 mg Memantine (Memantine Hcl 10 Mg Tablet) 10 mg PO BID [facility] Last Admin: 08/05/23 08:52 Dose: 10 mg Propranolol HCl (Propranolol Hcl 10 Mg Tablet) 10 mg PO BID [facility]; Protocol Last Admin: 08/05/23 08:52 Dose: 10 mg Quetiapine Fumarate (Quetiapine Fumarate 25 Mg Tablet) 25 mg PO BEDTIME MRX1 [facility] Last Admin: 08/04/23 21:50 Dose: Not Given Tamsulosin HCl (Tamsulosin Hcl 0.4 Mg Capsule) 0.4 mg PO DAILY@1730 [facility] Last Admin: 08/05/23 17:07 Dose: 0.4 mg Thiamine HCl (Thiamine Hcl 100 Mg Tablet) 100 mg PO BID [facility] Last Admin: 08/05/23 08:52 Dose: 100 mg Trazodone HCl (Trazodone Hcl 50 Mg Tablet) 50 mg PO BEDTIME MRX1 PRN PRN Reason: Insomnia Last Admin: 08/05/23 00:27 Dose: 50 mg Vortioxetine (Vortioxetine Hydrobromide 20 Mg Tablet) 20 mg PO DAILY [facility] Last Admin: 08/05/23 08:51 Dose: 20 mg Allergies Allergies Allergy/AdvReac Type Severity Reaction Status Date / Time risperidone [From Risperdal] Allergy Intermediate UNKNOWN Verified 05/12/23 13:13 Sulfa (Sulfonamide Allergy Intermediate rash Verified 05/12/23 13:13 Antibiotics) From BENADRYL Allergy Intermediate DIZZY Uncoded 02/14/23 11:47 Assessment & Plan Assessment & Plan (1) Major depressive disorder, recurrent severe without psychotic features: Status: Acute Code(s): F33.2 - Major depressive disorder, recurrent severe without psychotic features (2) POONAM (generalized anxiety disorder): Status: Acute Code(s): F41.1 - Generalized anxiety disorder Plan This patient suffering from spondylosis of lumbar spine and multiple old compression fractures of the lumbar spine. There is tenderness on palpation in the projection of L1-L2 and L3 vertebras. She denies radiation of the pain. Most likely her pain is secondary to spondylosis and facet joint arthropathy. Due to her mental status I do not think that neuromodulation would be a good way of treating this patient's pain, this is why I offered to her therapeutic T12-L1 L2 L3 bilateral medial branch block. Informed Consent: further education needed Reason for continued inpatient stay Substantial Risk for: inability to function and rapid decompensation Time Spent With Patient Time: Total time managing care of this patient today ____ minutes.
[2023-08-05] MEDS: Melatonin 3 MG TABLET 6 MG PO (21:27)
[2023-08-05] MEDS: QUEtiapine Fumarate 25 MG TABLET PO (21:27)
[2023-08-05] MEDS: Donepezil HCl 10 MG TABLET PO (21:27)
[2023-08-06 07:00] VITALS: BMI 25.0
[2023-08-06 07:55] VITALS: BP 110/70; PULSE 87; RESP 18; TEMP 36; O2SAT 94
[2023-08-06] MEDS: Memantine HCl 10 MG TABLET PO ×2 (08:07→21:31)
[2023-08-06] MEDS: cloNIDine HCL 0.1 MG TABLET PO ×3 (08:07→21:31)
[2023-08-06] MEDS: Propranolol HCL 10 MG TABLET PO ×2 (08:07→21:31)
[2023-08-06] MEDS: Cariprazine HCl 1.5 MG CAPSULE PO (08:07)
[2023-08-06] MEDS: Folic Acid 1 MG TABLET PO (08:07)
[2023-08-06] MEDS: Thiamine HCL 100 MG TABLET PO ×2 (08:08→21:31)
[2023-08-06] MEDS: Acetaminophen 325 MG TABLET 650 MG PO (08:08)
[2023-08-06] MEDS: Vortioxetine Hydrobromide 20 MG TABLET PO (08:08)
[2023-08-06] MEDS: LORazepam 0.5 MG TABLET PO (13:27)
[2023-08-06] MEDS: Ibuprofen 200 MG TABLET PO ×2 (13:27→21:39)
[2023-08-06 15:56] VITALS: BP 128/72
[2023-08-06] MEDS: Tamsulosin HCL 0.4 MG CAPSULE PO (16:50)
[2023-08-06 19:30] VITALS: BP 107/56; PULSE 60; RESP 18; TEMP 36.7; O2SAT 94
[2023-08-06] MEDS: Donepezil HCl 10 MG TABLET PO (21:31)
[2023-08-06] MEDS: QUEtiapine Fumarate 25 MG TABLET PO (21:31)
--- NOTE | 2023-08-06 22:41 | HO.PSYCHPN ---
Subjective Subjective Date of Service: 08/06/23 Reason For Visit: Major depression with psychotic features Subjective Notes: Conditional Voluntary Interim History: Patient is apathetic with periods of anxiety Vraylar discontinued pain consult completed Medication Compliance: Yes Mental Status Exam Mental Status Exam Patient Appearance: Appropriate Patient Orientation: Person, Place and Situation Level of Consciousness: Awake and Appropriate Patient Behavior: Cooperative, Passive, Anxious and Avoidant Mood Description: Withdrawn Affect Description: Constricted Patient Cognition Impaired: Yes Ability to Follow Directions: Good Speech Pattern: Clear and Monotone Memory Description: Episodic Impaired Hallucinations: None Delusions: Ideas of Reference Thought Process: Distracted and Slowed Thinking Thought Content: positive for [place] and positive for Poverty of Content Judgement: Poor Diagnostics Vital Signs (24Hr): Vital Signs - 24 hr 08/06/23 07:55 08/06/23 15:56 08/06/23 19:30 Temperature 96.8 F 98.0 F Pulse Rate 87 60 Respiratory Rate 18 18 Blood Pressure 110/70 128/72 107/56 L Pulse Oximetry 94 94 Oxygen Delivery Method Room Air Room Air BMI result Body Mass Index 25.0 Labs 07/16/23 10:34 07/17/23 08:12 Medications Medications Current Medications Acetaminophen (Acetaminophen 325 Mg Tablet) 650 mg PO Q6H PRN PRN Reason: Headache/Pain Mild Scale (1-3) Last Admin: 08/06/23 08:08 Dose: 650 mg Al Hydroxide/Mg Hydroxide (Magnesium Hydrox/Alum Hydrox 30 Ml Oral.Susp) 30 ml PO Q6H PRN PRN Reason: Heartburn/Nausea Al Hydroxide/Mg Hydroxide (Magnesium Hydrox/Alum Hydrox 30 Ml Oral.Susp) 30 ml PO Q6H PRN PRN Reason: Heartburn/Nausea Clonidine HCl (Clonidine Hcl 0.1 Mg Tablet) 0.1 mg PO TID [facility]; Protocol Last Admin: 08/06/23 21:31 Dose: 0.1 mg Donepezil HCl (Donepezil Hcl 10 Mg Tablet) 10 mg PO BEDTIME [facility] Last Admin: 08/06/23 21:31 Dose: 10 mg Folic Acid (Folic Acid 1 Mg Tablet) 1 mg PO DAILY [facility] Last Admin: 08/06/23 08:07 Dose: 1 mg Ibuprofen (Ibuprofen 200 Mg Tablet) 200 mg PO Q6H PRN PRN Reason: Pain, Moderate(Pain Scale 4-6) Last Admin: 08/06/23 21:39 Dose: 200 mg Lidocaine (Lidocaine 4 % Patch Adh..Patch) 1 patch TRANSDERMA DAILY [facility]; Protocol Last Admin: 08/06/23 08:10 Dose: Not Given Lorazepam (Lorazepam 0.5 Mg Tablet) 0.5 mg PO Q8H PRN PRN Reason: anxiety/restlessness Last Admin: 08/06/23 13:27 Dose: 0.5 mg Magnesium Hydroxide (Milk Of Magnesia 30 Ml Oral.Susp) 30 ml PO DAILY PRN PRN Reason: Constipation Magnesium Hydroxide (Milk Of Magnesia 30 Ml Oral.Susp) 30 ml PO DAILY PRN PRN Reason: Constipation Melatonin (Melatonin 3 Mg Tablet) 6 mg PO BEDTIME PRN PRN Reason: Insomnia Last Admin: 08/05/23 21:27 Dose: 6 mg Memantine (Memantine Hcl 10 Mg Tablet) 10 mg PO BID [facility] Last Admin: 08/06/23 21:31 Dose: 10 mg Propranolol HCl (Propranolol Hcl 10 Mg Tablet) 10 mg PO BID [facility]; Protocol Last Admin: 08/06/23 21:31 Dose: 10 mg Quetiapine Fumarate (Quetiapine Fumarate 25 Mg Tablet) 25 mg PO BEDTIME MRX1 [facility] Last Admin: 08/06/23 21:31 Dose: 25 mg Tamsulosin HCl (Tamsulosin Hcl 0.4 Mg Capsule) 0.4 mg PO DAILY@1730 [facility] Last Admin: 08/06/23 16:50 Dose: 0.4 mg Thiamine HCl (Thiamine Hcl 100 Mg Tablet) 100 mg PO BID [facility] Last Admin: 08/06/23 21:31 Dose: 100 mg Trazodone HCl (Trazodone Hcl 50 Mg Tablet) 50 mg PO BEDTIME MRX1 PRN PRN Reason: Insomnia Last Admin: 08/05/23 00:27 Dose: 50 mg Vortioxetine (Vortioxetine Hydrobromide 20 Mg Tablet) 20 mg PO DAILY [facility] Last Admin: 08/06/23 08:08 Dose: 20 mg Allergies Allergies Allergy/AdvReac Type Severity Reaction Status Date / Time risperidone [From Risperdal] Allergy Intermediate UNKNOWN Verified 05/12/23 13:13 Sulfa (Sulfonamide Allergy Intermediate rash Verified 05/12/23 13:13 Antibiotics) From BENADRYL Allergy Intermediate DIZZY Uncoded 02/14/23 11:47 Assessment & Plan Assessment & Plan (1) Psychotic depression: Status: Acute Code(s): F32.3 - Major depressive disorder, single episode, severe with psychotic features (2) Spondylosis without myelopathy or radiculopathy, lumbar region: Status: Acute Code(s): M47.816 - Spondylosis without myelopathy or radiculopathy, lumbar region (3) Major depressive disorder, recurrent severe without psychotic features: Status: Acute Code(s): F33.2 - Major depressive disorder, recurrent severe without psychotic features Plan This patient suffering from spondylosis of lumbar spine and multiple old compression fractures of the lumbar spine. There is tenderness on palpation in the projection of L1-L2 and L3 vertebras. She denies radiation of the pain. Most likely her pain is secondary to spondylosis and facet joint arthropathy. Due to her mental status I do not think that neuromodulation would be a good way of treating this patient's pain, this is why I offered to her therapeutic T12-L1 L2 L3 bilateral medial branch block. It is not clear for me whether the patient can sign her own consent. It is also remains to be seen whether she can tolerate the procedure without sedation. With history of psychotic depression she might not be able to stand still on the operating table without anesthesia assistance. We will schedule this procedure as soon as this issue will be clarified. 08/06/2023 Pain management note reviewed and appreciated. Patient remains depressed demoralized over not returning home does seem to understand situation and why it appears she can not. The patient generally is able to give consent however may need help to consent to above procedure need to clarify healthcare proxy issues Patient educated on: medication risk/benefits and medical condition Informed Consent: further education needed Reason for continued inpatient stay Substantial Risk for: inability to function, rapid decompensation and med/psych decompensation Time Spent With Patient Time: Total time managing care of this patient today ____ minutes.
[2023-08-07] MEDS: Ibuprofen 200 MG TABLET PO (05:42)
[2023-08-07 07:35] VITALS: BP 108/66; PULSE 104; RESP 16; TEMP 36.2; O2SAT 96
[2023-08-07] MEDS: Folic Acid 1 MG TABLET PO (07:40)
[2023-08-07] MEDS: Memantine HCl 10 MG TABLET PO ×2 (07:40→20:51)
[2023-08-07] MEDS: Thiamine HCL 100 MG TABLET PO ×2 (07:40→20:52)
[2023-08-07] MEDS: Propranolol HCL 10 MG TABLET PO ×2 (07:40→20:51)
[2023-08-07] MEDS: cloNIDine HCL 0.1 MG TABLET PO ×3 (07:40→20:50)
[2023-08-07] MEDS: Vortioxetine Hydrobromide 20 MG TABLET PO (07:41)
[2023-08-07] MEDS: LORazepam 0.5 MG TABLET PO (13:23)
[2023-08-07 14:49] VITALS: BP 130/67
[2023-08-07] MEDS: Tamsulosin HCL 0.4 MG CAPSULE PO (17:10)
[2023-08-07 18:00] VITALS: BP 131/63; PULSE 79; RESP 17; TEMP 36.5; O2SAT 94
[2023-08-07] MEDS: Donepezil HCl 10 MG TABLET PO (20:51)
[2023-08-07] MEDS: QUEtiapine Fumarate 25 MG TABLET PO (20:52)
--- NOTE | 2023-08-07 21:17 | HO.PSYCHPN ---
Subjective Subjective Date of Service: 08/07/23 Reason For Visit: Major depression with psychotic features Subjective Notes: Conditional Voluntary Guardianship: No Interim History: pt seen in psych f/u pain cont continue plan of care Mental Status Exam Mental Status Exam Patient Appearance: Appropriate Patient Orientation: Person, Place and Situation Level of Consciousness: Awake and Appropriate Patient Behavior: Cooperative, Passive, Anxious and Avoidant Mood Description: Withdrawn Affect Description: Constricted Patient Cognition Impaired: Yes Ability to Follow Directions: Good Speech Pattern: Clear and Monotone Memory Description: Episodic Impaired Hallucinations: None Delusions: Ideas of Reference Thought Process: Distracted and Slowed Thinking Thought Content: positive for [place] and positive for Poverty of Content Judgement: Poor Diagnostics Vital Signs (24Hr): Vital Signs - 24 hr 08/07/23 07:35 08/07/23 14:49 Temperature 97.1 F Pulse Rate 104 H Respiratory Rate 16 Blood Pressure 108/66 130/67 Pulse Oximetry 96 Oxygen Delivery Method Room Air BMI result Body Mass Index 25.0 Labs 07/16/23 10:34 07/17/23 08:12 Medications Medications Current Medications Acetaminophen (Acetaminophen 325 Mg Tablet) 650 mg PO Q6H PRN PRN Reason: Headache/Pain Mild Scale (1-3) Last Admin: 08/06/23 08:08 Dose: 650 mg Al Hydroxide/Mg Hydroxide (Magnesium Hydrox/Alum Hydrox 30 Ml Oral.Susp) 30 ml PO Q6H PRN PRN Reason: Heartburn/Nausea Al Hydroxide/Mg Hydroxide (Magnesium Hydrox/Alum Hydrox 30 Ml Oral.Susp) 30 ml PO Q6H PRN PRN Reason: Heartburn/Nausea Clonidine HCl (Clonidine Hcl 0.1 Mg Tablet) 0.1 mg PO TID [facility]; Protocol Last Admin: 08/07/23 20:50 Dose: 0.1 mg Donepezil HCl (Donepezil Hcl 10 Mg Tablet) 10 mg PO BEDTIME [facility] Last Admin: 08/07/23 20:51 Dose: 10 mg Folic Acid (Folic Acid 1 Mg Tablet) 1 mg PO DAILY [facility] Last Admin: 08/07/23 07:40 Dose: 1 mg Ibuprofen (Ibuprofen 200 Mg Tablet) 200 mg PO Q6H PRN PRN Reason: Pain, Moderate(Pain Scale 4-6) Last Admin: 08/07/23 05:42 Dose: 200 mg Lidocaine (Lidocaine 4 % Patch Adh..Patch) 1 patch TRANSDERMA DAILY [facility]; Protocol Last Admin: 08/07/23 07:44 Dose: Not Given Lorazepam (Lorazepam 0.5 Mg Tablet) 0.5 mg PO Q8H PRN PRN Reason: anxiety/restlessness Last Admin: 08/07/23 13:23 Dose: 0.5 mg Magnesium Hydroxide (Milk Of Magnesia 30 Ml Oral.Susp) 30 ml PO DAILY PRN PRN Reason: Constipation Magnesium Hydroxide (Milk Of Magnesia 30 Ml Oral.Susp) 30 ml PO DAILY PRN PRN Reason: Constipation Melatonin (Melatonin 3 Mg Tablet) 6 mg PO BEDTIME PRN PRN Reason: Insomnia Last Admin: 08/05/23 21:27 Dose: 6 mg Memantine (Memantine Hcl 10 Mg Tablet) 10 mg PO BID [facility] Last Admin: 08/07/23 20:51 Dose: 10 mg Propranolol HCl (Propranolol Hcl 10 Mg Tablet) 10 mg PO BID [facility]; Protocol Last Admin: 08/07/23 20:51 Dose: 10 mg Quetiapine Fumarate (Quetiapine Fumarate 25 Mg Tablet) 25 mg PO BEDTIME MRX1 [facility] Last Admin: 08/07/23 20:52 Dose: 25 mg Tamsulosin HCl (Tamsulosin Hcl 0.4 Mg Capsule) 0.4 mg PO DAILY@1730 [facility] Last Admin: 08/07/23 17:10 Dose: 0.4 mg Thiamine HCl (Thiamine Hcl 100 Mg Tablet) 100 mg PO BID [facility] Last Admin: 08/07/23 20:52 Dose: 100 mg Trazodone HCl (Trazodone Hcl 50 Mg Tablet) 50 mg PO BEDTIME MRX1 PRN PRN Reason: Insomnia Last Admin: 08/05/23 00:27 Dose: 50 mg Vortioxetine (Vortioxetine Hydrobromide 20 Mg Tablet) 20 mg PO DAILY [facility] Last Admin: 08/07/23 07:41 Dose: 20 mg Allergies Allergies Allergy/AdvReac Type Severity Reaction Status Date / Time risperidone [From Risperdal] Allergy Intermediate UNKNOWN Verified 05/12/23 13:13 Sulfa (Sulfonamide Allergy Intermediate rash Verified 05/12/23 13:13 Antibiotics) From BENADRYL Allergy Intermediate DIZZY Uncoded 02/14/23 11:47 Assessment & Plan Assessment & Plan (1) Major depressive disorder, recurrent severe without psychotic features: Status: Acute Code(s): F33.2 - Major depressive disorder, recurrent severe without psychotic features (2) Spondylosis without myelopathy or radiculopathy, lumbar region: Status: Acute Code(s): M47.816 - Spondylosis without myelopathy or radiculopathy, lumbar region (3) Insomnia: Qualifiers: Insomnia type: unspecified Qualified Code(s): G47.00 - Insomnia, unspecified Status: Acute Code(s): G47.00 - Insomnia, unspecified Plan This patient suffering from spondylosis of lumbar spine and multiple old compression fractures of the lumbar spine. There is tenderness on palpation in the projection of L1-L2 and L3 vertebras. She denies radiation of the pain. Most likely her pain is secondary to spondylosis and facet joint arthropathy. Due to her mental status I do not think that neuromodulation would be a good way of treating this patient's pain, this is why I offered to her therapeutic T12-L1 L2 L3 bilateral medial branch block. It is not clear for me whether the patient can sign her own consent. It is also remains to be seen whether she can tolerate the procedure without sedation. With history of psychotic depression she might not be able to stand still on the operating table without anesthesia assistance. We will schedule this procedure as soon as this issue will be clarified. 08/06/2023 Pain management note reviewed and appreciated. Patient remains depressed demoralized over not returning home does seem to understand situation and why it appears she can not. The patient generally is able to give consent however may need help to consent to above procedure need to clarify healthcare proxy issues 08/07/23 Will need to involve healthcare proxy and decision for surgery cont namena aricept less restlessness with vraylar d/c Patient educated on: medication risk/benefits and medical condition Informed Consent: further education needed Reason for continued inpatient stay Substantial Risk for: harm to self, inability to function, rapid decompensation and med/psych decompensation Time Spent With Patient Time: Total time managing care of this patient today ____ minutes.
[2023-08-08 08:16] VITALS: BP 100/65; PULSE 95; RESP 17; TEMP 36.2; O2SAT 99
[2023-08-08] MEDS: Memantine HCl 10 MG TABLET PO ×2 (08:18→20:23)
[2023-08-08] MEDS: Vortioxetine Hydrobromide 20 MG TABLET PO (08:18)
[2023-08-08] MEDS: Folic Acid 1 MG TABLET PO (08:18)
[2023-08-08] MEDS: Propranolol HCL 10 MG TABLET PO ×2 (08:18→20:23)
[2023-08-08] MEDS: Thiamine HCL 100 MG TABLET PO ×2 (08:18→20:23)
[2023-08-08] MEDS: cloNIDine HCL 0.1 MG TABLET PO ×3 (08:18→20:23)
--- NOTE | 2023-08-08 14:11 | P.PNPSI_ITS ---
Subjective Subjective Date of Service: 08/08/23 Reason For Visit: Major depression with psychotic features Subjective Notes: Conditional Voluntary Healthcare Proxy: No Guardianship: No Medical Problems Affecting Mental Status: No Interim History: Pt lying in bed, med compliant, some mild TD around mouth- denies [place] nursing reports slept and eating Medication Compliance: Yes Side effects from medications: Yes (some TD) Attending Groups: Intermittent Review of Systems Acute medical concerns: No Medical Review of Systems: unchanged Mental Status Exam Mental Status Exam Patient Appearance: Well Grooomed and Fatigued Patient Orientation: Person, Place and Situation Level of Consciousness: Awake Patient Behavior: Appropriate and Dependent Mood Description: Calm Affect Description: Blunted Patient Cognition Impaired: Yes Ability to Follow Directions: Fair Speech Pattern: Clear Thought Process: Intact Thought Content: positive for [place] and positive for Poverty of Content Diagnostics Vital Signs (24Hr): Vital Signs - 24 hr 08/07/23 14:49 08/07/23 18:00 08/08/23 08:16 Temperature 97.7 F 97.1 F Pulse Rate 79 95 Respiratory Rate 17 17 Blood Pressure 130/67 131/63 100/65 Pulse Oximetry 94 99 Oxygen Delivery Method Room Air Room Air BMI result Body Mass Index 25.0 Labs 07/16/23 10:34 07/17/23 08:12 Medications Medications Current Medications Acetaminophen (Acetaminophen 325 Mg Tablet) 650 mg PO Q6H PRN PRN Reason: Headache/Pain Mild Scale (1-3) Last Admin: 08/06/23 08:08 Dose: 650 mg Al Hydroxide/Mg Hydroxide (Magnesium Hydrox/Alum Hydrox 30 Ml Oral.Susp) 30 ml PO Q6H PRN PRN Reason: Heartburn/Nausea Al Hydroxide/Mg Hydroxide (Magnesium Hydrox/Alum Hydrox 30 Ml Oral.Susp) 30 ml PO Q6H PRN PRN Reason: Heartburn/Nausea Clonidine HCl (Clonidine Hcl 0.1 Mg Tablet) 0.1 mg PO TID [facility]; Protocol Last Admin: 08/08/23 08:18 Dose: 0.1 mg Donepezil HCl (Donepezil Hcl 10 Mg Tablet) 10 mg PO BEDTIME [facility] Last Admin: 08/07/23 20:51 Dose: 10 mg Folic Acid (Folic Acid 1 Mg Tablet) 1 mg PO DAILY [facility] Last Admin: 08/08/23 08:18 Dose: 1 mg Ibuprofen (Ibuprofen 200 Mg Tablet) 200 mg PO Q6H PRN PRN Reason: Pain, Moderate(Pain Scale 4-6) Last Admin: 08/07/23 05:42 Dose: 200 mg Lidocaine (Lidocaine 4 % Patch Adh..Patch) 1 patch TRANSDERMA DAILY [facility]; Protocol Last Admin: 08/08/23 08:21 Dose: Not Given Lorazepam (Lorazepam 0.5 Mg Tablet) 0.5 mg PO Q8H PRN PRN Reason: anxiety/restlessness Last Admin: 08/07/23 13:23 Dose: 0.5 mg Magnesium Hydroxide (Milk Of Magnesia 30 Ml Oral.Susp) 30 ml PO DAILY PRN PRN Reason: Constipation Magnesium Hydroxide (Milk Of Magnesia 30 Ml Oral.Susp) 30 ml PO DAILY PRN PRN Reason: Constipation Melatonin (Melatonin 3 Mg Tablet) 6 mg PO BEDTIME PRN PRN Reason: Insomnia Last Admin: 08/05/23 21:27 Dose: 6 mg Memantine (Memantine Hcl 10 Mg Tablet) 10 mg PO BID [facility] Last Admin: 08/08/23 08:18 Dose: 10 mg Propranolol HCl (Propranolol Hcl 10 Mg Tablet) 10 mg PO BID [facility]; Protocol Last Admin: 08/08/23 08:18 Dose: 10 mg Quetiapine Fumarate (Quetiapine Fumarate 25 Mg Tablet) 25 mg PO BEDTIME MRX1 [facility] Last Admin: 08/07/23 22:28 Dose: Not Given Tamsulosin HCl (Tamsulosin Hcl 0.4 Mg Capsule) 0.4 mg PO DAILY@1730 [facility] Last Admin: 08/07/23 17:10 Dose: 0.4 mg Thiamine HCl (Thiamine Hcl 100 Mg Tablet) 100 mg PO BID [facility] Last Admin: 08/08/23 08:18 Dose: 100 mg Trazodone HCl (Trazodone Hcl 50 Mg Tablet) 50 mg PO BEDTIME MRX1 PRN PRN Reason: Insomnia Last Admin: 08/05/23 00:27 Dose: 50 mg Vortioxetine (Vortioxetine Hydrobromide 20 Mg Tablet) 20 mg PO DAILY [facility] Last Admin: 08/08/23 08:18 Dose: 20 mg Allergies Allergies Allergy/AdvReac Type Severity Reaction Status Date / Time risperidone [From Risperdal] Allergy Intermediate UNKNOWN Verified 05/12/23 13:13 Sulfa (Sulfonamide Allergy Intermediate rash Verified 05/12/23 13:13 Antibiotics) From BENADRYL Allergy Intermediate DIZZY Uncoded 02/14/23 11:47 Assessment & Plan Assessment & Plan (1) Major depressive disorder, recurrent severe without psychotic features: Status: Acute Code(s): F33.2 - Major depressive disorder, recurrent severe without psychotic features (2) Spondylosis without myelopathy or radiculopathy, lumbar region: Status: Acute Code(s): M47.816 - Spondylosis without myelopathy or radiculopathy, lumbar region (3) Insomnia: Qualifiers: Insomnia type: unspecified Qualified Code(s): G47.00 - Insomnia, unspecified Status: Acute Code(s): G47.00 - Insomnia, unspecified Plan This patient suffering from spondylosis of lumbar spine and multiple old compression fractures of the lumbar spine. There is tenderness on palpation in the projection of L1-L2 and L3 vertebras. She denies radiation of the pain. Most likely her pain is secondary to spondylosis and facet joint arthropathy. Due to her mental status I do not think that neuromodulation would be a good way of treating this patient's pain, this is why I offered to her therapeutic T12-L1 L2 L3 bilateral medial branch block. It is not clear for me whether the patient can sign her own consent. It is also remains to be seen whether she can tolerate the procedure without sedation. With history of psychotic depression she might not be able to stand still on the operating table without anesthesia assistance. We will schedule this procedure as soon as this issue will be clarified. 08/06/2023 Pain management note reviewed and appreciated. Patient remains depressed demoralized over not returning home does seem to understand situation and why it appears she can not. The patient generally is able to give consent however may need help to consent to above procedure need to clarify healthcare proxy issues 08/07/23 Will need to involve healthcare proxy and decision for surgery cont namena aricept less restlessness with vraylar d/c 08/08/23 CTP Informed Consent: further education needed Reason for continued inpatient stay Substantial Risk for: rapid decompensation and med/psych decompensation Time Spent With Patient Time: Total time managing care of this patient today ____ minutes.
[2023-08-08 14:33] VITALS: BP 144/71; PULSE 68
[2023-08-08] MEDS: Tamsulosin HCL 0.4 MG CAPSULE PO (17:17)
[2023-08-08 18:00] VITALS: BP 126/66; PULSE 85; RESP 18; TEMP 36; O2SAT 97
[2023-08-08] MEDS: QUEtiapine Fumarate 25 MG TABLET PO (20:23)
[2023-08-08] MEDS: Donepezil HCl 10 MG TABLET PO (20:23)
[2023-08-08] MEDS: Acetaminophen 325 MG TABLET 650 MG PO (20:49)
[2023-08-08] MEDS: Melatonin 3 MG TABLET 6 MG PO (20:50)
[2023-08-08] MEDS: Ibuprofen 200 MG TABLET PO (20:52)
[2023-08-08] MEDS: LORazepam 0.5 MG TABLET PO (20:52)
[2023-08-08] MEDS: traZODone HCL 50 MG TABLET PO (20:53)
--- NOTE | 2023-08-09 07:07 | PC.NURSE ---
2100 08-08-23 late entry pt instructed to stay in bed while staff assembled to ready for bed. soon after instructions to stay in bed, pt was noted to be wandering around nurses station. myself and staff member assisted pt down hallway. when returning to bed pt intentionally buckled her legs and attempted to drop to floor. fortunately myself and staff member where able to intervene and stop pt from falling to the floor. pt returned to bed and bed alarms turned on.
[2023-08-09 07:55] VITALS: BP 86/57; PULSE 87; RESP 17; TEMP 36.4; O2SAT 93
[2023-08-09] MEDS: Memantine HCl 10 MG TABLET PO ×2 (08:02→19:57)
[2023-08-09] MEDS: Thiamine HCL 100 MG TABLET PO ×2 (08:02→19:59)
[2023-08-09] MEDS: Folic Acid 1 MG TABLET PO (08:02)
[2023-08-09] MEDS: Vortioxetine Hydrobromide 20 MG TABLET PO (08:02)
[2023-08-09 08:54] VITALS: BP 93/51; PULSE 62
--- NOTE | 2023-08-09 11:12 | HO.PSYCHPN ---
Subjective Subjective Date of Service: 08/09/23 Reason For Visit: Major depression with psychotic features Subjective Notes: Conditional Voluntary Interim History: 72 yo with depression/anxiety - lying in bed feeling better- she says- nursing reports pt complaining of 10/10 depression/anxiety and back pain - today 6-8 better than her usual 10. BP running really low- in past has been higher- but am bp meds held=- a second time this week Medication Compliance: Yes Side effects from medications: Yes (? low daniel) Attending Groups: Intermittent Review of Systems Acute medical concerns: Yes low bp ongoing co back pain Review of Systems: TD around mouth vs no dentures or ill fitting dentures? and dry mouth Mental Status Exam Mental Status Exam Narrative: groomed, and dressed in bed good eye contact Patient Appearance: Appropriate Patient Orientation: Person and Place Level of Consciousness: Awake Patient Behavior: Dependent and Passive Mood Description: Withdrawn Affect Description: Flat Patient Cognition Impaired: Yes Ability to Follow Directions: Fair Speech Pattern: Clear and Impoverished Hallucinations: None Thought Process: Intact Thought Content: positive for [place] and positive for Poverty of Content Depressive Symptoms: Back Pain Judgement: Poor Diagnostics Vital Signs (24Hr): Vital Signs - 24 hr 08/08/23 14:33 08/08/23 18:00 08/09/23 07:55 Temperature 96.8 F 97.5 F Pulse Rate 68 85 87 Respiratory Rate 18 17 Blood Pressure 144/71 H 126/66 86/57 L Pulse Oximetry 97 93 Oxygen Delivery Method Room Air Room Air 08/09/23 08:54 Temperature Pulse Rate 62 Respiratory Rate Blood Pressure 93/51 L Pulse Oximetry Oxygen Delivery Method BMI result Body Mass Index 25.0 Labs 07/16/23 10:34 07/17/23 08:12 Medications Medications Current Medications Acetaminophen (Acetaminophen 325 Mg Tablet) 650 mg PO Q6H PRN PRN Reason: Headache/Pain Mild Scale (1-3) Last Admin: 08/08/23 20:49 Dose: 650 mg Al Hydroxide/Mg Hydroxide (Magnesium Hydrox/Alum Hydrox 30 Ml Oral.Susp) 30 ml PO Q6H PRN PRN Reason: Heartburn/Nausea Al Hydroxide/Mg Hydroxide (Magnesium Hydrox/Alum Hydrox 30 Ml Oral.Susp) 30 ml PO Q6H PRN PRN Reason: Heartburn/Nausea Clonidine HCl (Clonidine Hcl 0.1 Mg Tablet) 0.1 mg PO TID [facility]; Protocol Last Admin: 08/09/23 09:16 Dose: Not Given Donepezil HCl (Donepezil Hcl 10 Mg Tablet) 10 mg PO BEDTIME [facility] Last Admin: 08/08/23 20:23 Dose: 10 mg Folic Acid (Folic Acid 1 Mg Tablet) 1 mg PO DAILY [facility] Last Admin: 08/09/23 08:02 Dose: 1 mg Ibuprofen (Ibuprofen 200 Mg Tablet) 200 mg PO Q6H PRN PRN Reason: Pain, Moderate(Pain Scale 4-6) Last Admin: 08/08/23 20:52 Dose: 200 mg Lidocaine (Lidocaine 4 % Patch Adh..Patch) 1 patch TRANSDERMA DAILY [facility]; Protocol Last Admin: 08/09/23 08:04 Dose: Not Given Lorazepam (Lorazepam 0.5 Mg Tablet) 0.5 mg PO Q8H PRN PRN Reason: anxiety/restlessness Last Admin: 08/08/23 20:52 Dose: 0.5 mg Magnesium Hydroxide (Milk Of Magnesia 30 Ml Oral.Susp) 30 ml PO DAILY PRN PRN Reason: Constipation Magnesium Hydroxide (Milk Of Magnesia 30 Ml Oral.Susp) 30 ml PO DAILY PRN PRN Reason: Constipation Melatonin (Melatonin 3 Mg Tablet) 6 mg PO BEDTIME PRN PRN Reason: Insomnia Last Admin: 08/08/23 20:50 Dose: 6 mg Memantine (Memantine Hcl 10 Mg Tablet) 10 mg PO BID [facility] Last Admin: 08/09/23 08:02 Dose: 10 mg Propranolol HCl (Propranolol Hcl 10 Mg Tablet) 10 mg PO BID [facility]; Protocol Last Admin: 08/09/23 09:16 Dose: Not Given Quetiapine Fumarate (Quetiapine Fumarate 25 Mg Tablet) 25 mg PO BEDTIME MRX1 [facility] Last Admin: 08/08/23 22:17 Dose: Not Given Tamsulosin HCl (Tamsulosin Hcl 0.4 Mg Capsule) 0.4 mg PO DAILY@1730 [facility] Last Admin: 08/08/23 17:17 Dose: 0.4 mg Thiamine HCl (Thiamine Hcl 100 Mg Tablet) 100 mg PO BID [facility] Last Admin: 08/09/23 08:02 Dose: 100 mg Trazodone HCl (Trazodone Hcl 50 Mg Tablet) 50 mg PO BEDTIME MRX1 PRN PRN Reason: Insomnia Last Admin: 03/02/24 20:53 Dose: 50 mg Vortioxetine (Vortioxetine Hydrobromide 20 Mg Tablet) 20 mg PO DAILY [facility] Last Admin: 08/09/23 08:02 Dose: 20 mg Allergies Allergies Allergy/AdvReac Type Severity Reaction Status Date / Time risperidone [From Risperdal] Allergy Intermediate UNKNOWN Verified 05/12/23 13:13 Sulfa (Sulfonamide Allergy Intermediate rash Verified 05/12/23 13:13 Antibiotics) From BENADRYL Allergy Intermediate DIZZY Uncoded 02/14/23 11:47 Assessment & Plan Assessment & Plan (1) Major depressive disorder, recurrent severe without psychotic features: Status: Acute Code(s): F33.2 - Major depressive disorder, recurrent severe without psychotic features (2) Spondylosis without myelopathy or radiculopathy, lumbar region: Status: Acute Code(s): M47.816 - Spondylosis without myelopathy or radiculopathy, lumbar region (3) Insomnia: Qualifiers: Insomnia type: unspecified Qualified Code(s): G47.00 - Insomnia, unspecified Status: Acute Code(s): G47.00 - Insomnia, unspecified Plan This patient suffering from spondylosis of lumbar spine and multiple old compression fractures of the lumbar spine. There is tenderness on palpation in the projection of L1-L2 and L3 vertebras. She denies radiation of the pain. Most likely her pain is secondary to spondylosis and facet joint arthropathy. Due to her mental status I do not think that neuromodulation would be a good way of treating this patient's pain, this is why I offered to her therapeutic T12-L1 L2 L3 bilateral medial branch block. It is not clear for me whether the patient can sign her own consent. It is also remains to be seen whether she can tolerate the procedure without sedation. With history of psychotic depression she might not be able to stand still on the operating table without anesthesia assistance. We will schedule this procedure as soon as this issue will be clarified. 08/06/2023 Pain management note reviewed and appreciated. Patient remains depressed demoralized over not returning home does seem to understand situation and why it appears she can not. The patient generally is able to give consent however may need help to consent to above procedure need to clarify healthcare proxy issues 08/07/23 Will need to involve healthcare proxy and decision for surgery cont namena aricept less restlessness with vraylar d/c 08/08/23 CTP 08/09/23 CTP watch bp meds and bp - ? lower dosing Patient educated on: medication risk/benefits and medical condition Informed Consent: further education needed Reason for continued inpatient stay Substantial Risk for: rapid decompensation and med/psych decompensation Time Spent With Patient Time: Total time managing care of this patient today ____ minutes.
[2023-08-09 15:56] VITALS: BP 146/75; PULSE 98
[2023-08-09] MEDS: cloNIDine HCL 0.1 MG TABLET PO ×2 (15:58→19:59)
[2023-08-09] MEDS: Tamsulosin HCL 0.4 MG CAPSULE PO (17:49)
[2023-08-09 18:00] VITALS: BP 112/71; PULSE 98; RESP 18; TEMP 36.2; O2SAT 94
[2023-08-09] MEDS: Donepezil HCl 10 MG TABLET PO (19:58)
[2023-08-09] MEDS: LORazepam 0.5 MG TABLET PO (19:58)
[2023-08-09] MEDS: Acetaminophen 325 MG TABLET 650 MG PO (19:58)
[2023-08-09] MEDS: QUEtiapine Fumarate 25 MG TABLET PO (19:59)
[2023-08-09] MEDS: Propranolol HCL 10 MG TABLET PO (20:00)
[2023-08-10] MEDS: Ibuprofen 200 MG TABLET PO ×2 (04:33→20:33)
[2023-08-10 08:35] VITALS: BP 116/66; PULSE 92; RESP 20; TEMP 36.1; O2SAT 93
[2023-08-10] MEDS: Thiamine HCL 100 MG TABLET PO ×2 (08:36→20:33)
[2023-08-10] MEDS: Vortioxetine Hydrobromide 20 MG TABLET PO (08:36)
[2023-08-10] MEDS: Propranolol HCL 10 MG TABLET PO (08:36)
[2023-08-10] MEDS: Folic Acid 1 MG TABLET PO (08:37)
[2023-08-10] MEDS: Memantine HCl 10 MG TABLET PO ×2 (08:37→20:32)
[2023-08-10] MEDS: cloNIDine HCL 0.1 MG TABLET PO (08:37)
[2023-08-10 14:39] VITALS: BP 96/54
[2023-08-10] MEDS: Tamsulosin HCL 0.4 MG CAPSULE PO (16:49)
[2023-08-10 18:00] VITALS: BP 120/85; PULSE 86; RESP 18; TEMP 36.4; O2SAT 96
[2023-08-10] MEDS: cloNIDine HCL 0.1 MG TABLET 0.05 MG PO (20:32)
[2023-08-10] MEDS: QUEtiapine Fumarate 25 MG TABLET PO (20:33)
[2023-08-10] MEDS: Donepezil HCl 10 MG TABLET PO (20:33)
[2023-08-10] MEDS: LORazepam 0.5 MG TABLET PO (20:33)
[2023-08-10] MEDS: Melatonin 3 MG TABLET 6 MG PO (20:34)
--- NOTE | 2023-08-10 20:35 | P.PNPSI_ITS ---
Subjective Subjective Date of Service: 08/10/23 Reason For Visit: Major depression with psychotic features Subjective Notes: Conditional Voluntary Interim History: Pt seems less depressed has had periodic lower bp gets visit by her daily. Mental Status Exam Mental Status Exam Narrative: groomed, and dressed in bed good eye contact Patient Appearance: Appropriate Patient Orientation: Person and Place Level of Consciousness: Awake Patient Behavior: Dependent and Passive Mood Description: Withdrawn Affect Description: Flat Patient Cognition Impaired: Yes Ability to Follow Directions: Fair Speech Pattern: Clear and Impoverished Hallucinations: None Thought Process: Intact Thought Content: positive for [place] and positive for Poverty of Content Depressive Symptoms: Back Pain Judgement: Poor Diagnostics Vital Signs (24Hr): Vital Signs - 24 hr 08/10/23 08:35 08/10/23 14:39 Temperature 97 F Pulse Rate 92 Respiratory Rate 20 Blood Pressure 116/66 96/54 L Pulse Oximetry 93 Oxygen Delivery Method Room Air BMI result Body Mass Index 25.0 Labs 07/16/23 10:34 07/17/23 08:12 Medications Medications Current Medications Acetaminophen (Acetaminophen 325 Mg Tablet) 650 mg PO Q6H PRN PRN Reason: Headache/Pain Mild Scale (1-3) Last Admin: 08/09/23 19:58 Dose: 650 mg Al Hydroxide/Mg Hydroxide (Magnesium Hydrox/Alum Hydrox 30 Ml Oral.Susp) 30 ml PO Q6H PRN PRN Reason: Heartburn/Nausea Al Hydroxide/Mg Hydroxide (Magnesium Hydrox/Alum Hydrox 30 Ml Oral.Susp) 30 ml PO Q6H PRN PRN Reason: Heartburn/Nausea Clonidine HCl (Clonidine Hcl 0.1 Mg Tablet) 0.05 mg PO TID [facility]; Protocol Donepezil HCl (Donepezil Hcl 10 Mg Tablet) 10 mg PO BEDTIME [facility] Last Admin: 08/09/23 19:58 Dose: 10 mg Folic Acid (Folic Acid 1 Mg Tablet) 1 mg PO DAILY [facility] Last Admin: 08/10/23 08:37 Dose: 1 mg Ibuprofen (Ibuprofen 200 Mg Tablet) 200 mg PO Q6H PRN PRN Reason: Pain, Moderate(Pain Scale 4-6) Last Admin: 08/10/23 04:33 Dose: 200 mg Lidocaine (Lidocaine 4 % Patch Adh..Patch) 1 patch TRANSDERMA DAILY [facility]; Protocol Last Admin: 08/10/23 08:37 Dose: Not Given Lorazepam (Lorazepam 0.5 Mg Tablet) 0.5 mg PO Q8H PRN PRN Reason: anxiety/restlessness Last Admin: 08/09/23 19:58 Dose: 0.5 mg Magnesium Hydroxide (Milk Of Magnesia 30 Ml Oral.Susp) 30 ml PO DAILY PRN PRN Reason: Constipation Magnesium Hydroxide (Milk Of Magnesia 30 Ml Oral.Susp) 30 ml PO DAILY PRN PRN Reason: Constipation Melatonin (Melatonin 3 Mg Tablet) 6 mg PO BEDTIME PRN PRN Reason: Insomnia Last Admin: 08/08/23 20:50 Dose: 6 mg Memantine (Memantine Hcl 10 Mg Tablet) 10 mg PO BID [facility] Last Admin: 08/10/23 08:37 Dose: 10 mg Quetiapine Fumarate (Quetiapine Fumarate 25 Mg Tablet) 25 mg PO BEDTIME MRX1 [facility] Last Admin: 08/09/23 21:32 Dose: Not Given Tamsulosin HCl (Tamsulosin Hcl 0.4 Mg Capsule) 0.4 mg PO DAILY@1730 [facility] Last Admin: 08/10/23 16:49 Dose: 0.4 mg Thiamine HCl (Thiamine Hcl 100 Mg Tablet) 100 mg PO BID [facility] Last Admin: 08/10/23 08:36 Dose: 100 mg Trazodone HCl (Trazodone Hcl 50 Mg Tablet) 50 mg PO BEDTIME MRX1 PRN PRN Reason: Insomnia Last Admin: 08/08/23 20:53 Dose: 50 mg Vortioxetine (Vortioxetine Hydrobromide 20 Mg Tablet) 20 mg PO DAILY [facility] Last Admin: 08/10/23 08:36 Dose: 20 mg Allergies Allergies Allergy/AdvReac Type Severity Reaction Status Date / Time risperidone [From Risperdal] Allergy Intermediate UNKNOWN Verified 05/12/23 13:13 Sulfa (Sulfonamide Allergy Intermediate rash Verified 05/12/23 13:13 Antibiotics) From BENADRYL Allergy Intermediate DIZZY Uncoded 02/14/23 11:47 Assessment & Plan Assessment & Plan (1) Major depressive disorder, recurrent severe without psychotic features: Status: Acute Code(s): F33.2 - Major depressive disorder, recurrent severe without psychotic features (2) Spondylosis without myelopathy or radiculopathy, lumbar region: Status: Acute Code(s): M47.816 - Spondylosis without myelopathy or radiculopathy, lumbar region (3) Insomnia: Qualifiers: Insomnia type: unspecified Qualified Code(s): G47.00 - Insomnia, unspecified Status: Acute Code(s): G47.00 - Insomnia, unspecified Plan This patient suffering from spondylosis of lumbar spine and multiple old compression fractures of the lumbar spine. There is tenderness on palpation in the projection of L1-L2 and L3 vertebras. She denies radiation of the pain. Most likely her pain is secondary to spondylosis and facet joint arthropathy. Due to her mental status I do not think that neuromodulation would be a good way of treating this patient's pain, this is why I offered to her therapeutic T12-L1 L2 L3 bilateral medial branch block. It is not clear for me whether the patient can sign her own consent. It is also remains to be seen whether she can tolerate the procedure without sedation. With history of psychotic depression she might not be able to stand still on the operating table without anesthesia assistance. We will schedule this procedure as soon as this issue will be clarified. 08/06/2023 Pain management note reviewed and appreciated. Patient remains depressed demoralized over not returning home does seem to understand situation and why it appears she can not. The patient generally is able to give consent however may need help to consent to above procedure need to clarify healthcare proxy issues 08/07/23 Will need to involve healthcare proxy and decision for surgery cont namena aricept less restlessness with vraylar d/c 08/08/23 CTP 08/09/23 CTP watch bp meds and bp - ? lower dosing 08/10/23 cont [id number] low dose seroquel lower clonidine Reason for continued inpatient stay Substantial Risk for: inability to function, rapid decompensation and med/psych decompensation Time Spent With Patient Time: Total time managing care of this patient today ____ minutes.
[2023-08-11] MEDS: Ibuprofen 200 MG TABLET PO ×2 (03:15→21:23)
[2023-08-11 08:09] VITALS: BP 119/67; PULSE 95; RESP 18; TEMP 36.4; O2SAT 97
[2023-08-11] MEDS: Thiamine HCL 100 MG TABLET PO ×2 (09:28→21:23)
[2023-08-11] MEDS: cloNIDine HCL 0.1 MG TABLET 0.05 MG PO ×3 (09:28→21:21)
[2023-08-11] MEDS: Folic Acid 1 MG TABLET PO (09:29)
[2023-08-11] MEDS: Memantine HCl 10 MG TABLET PO ×2 (09:29→21:22)
[2023-08-11] MEDS: Vortioxetine Hydrobromide 20 MG TABLET PO (09:29)
[2023-08-11 16:09] VITALS: BP 115/75
[2023-08-11] MEDS: Tamsulosin HCL 0.4 MG CAPSULE PO (16:16)
[2023-08-11 18:00] VITALS: BP 95/56; PULSE 85; RESP 17; TEMP 36.2; O2SAT 92
--- NOTE | 2023-08-11 21:18 | HO.PSYCHPN ---
Subjective Subjective Date of Service: 08/11/23 Reason For Visit: Major depression with psychotic features Subjective Notes: Conditional Voluntary Interim History: pt generally flat dysphoric periods of anxiety behavrioral dyscontrol Medication Compliance: Yes Mental Status Exam Mental Status Exam Narrative: groomed, and dressed in bed good eye contact Patient Appearance: Appropriate Patient Orientation: Person and Place Level of Consciousness: Awake Patient Behavior: Dependent and Passive Mood Description: Withdrawn Affect Description: Flat Patient Cognition Impaired: Yes Ability to Follow Directions: Fair Speech Pattern: Clear and Impoverished Hallucinations: None Thought Process: Intact Thought Content: positive for [place] and positive for Poverty of Content Depressive Symptoms: Back Pain Judgement: Poor Diagnostics Vital Signs (24Hr): Vital Signs - 24 hr 08/11/23 08:09 08/11/23 16:09 Temperature 97.5 F Pulse Rate 95 Respiratory Rate 18 Blood Pressure 119/67 115/75 Pulse Oximetry 97 Oxygen Delivery Method Nasal Cannula BMI result Body Mass Index 25.0 Labs 07/16/23 10:34 07/17/23 08:12 Medications Medications Current Medications Acetaminophen (Acetaminophen 325 Mg Tablet) 650 mg PO Q6H PRN PRN Reason: Headache/Pain Mild Scale (1-3) Last Admin: 08/09/23 19:58 Dose: 650 mg Al Hydroxide/Mg Hydroxide (Magnesium Hydrox/Alum Hydrox 30 Ml Oral.Susp) 30 ml PO Q6H PRN PRN Reason: Heartburn/Nausea Al Hydroxide/Mg Hydroxide (Magnesium Hydrox/Alum Hydrox 30 Ml Oral.Susp) 30 ml PO Q6H PRN PRN Reason: Heartburn/Nausea Clonidine HCl (Clonidine Hcl 0.1 Mg Tablet) 0.05 mg PO TID [facility]; Protocol Last Admin: 08/11/23 16:15 Dose: 0.05 mg Donepezil HCl (Donepezil Hcl 10 Mg Tablet) 10 mg PO BEDTIME [facility] Last Admin: 08/10/23 20:33 Dose: 10 mg Folic Acid (Folic Acid 1 Mg Tablet) 1 mg PO DAILY [facility] Last Admin: 08/11/23 09:29 Dose: 1 mg Ibuprofen (Ibuprofen 200 Mg Tablet) 200 mg PO Q6H PRN PRN Reason: Pain, Moderate(Pain Scale 4-6) Last Admin: 08/11/23 03:15 Dose: 200 mg Lidocaine (Lidocaine 4 % Patch Adh..Patch) 1 patch TRANSDERMA DAILY [facility]; Protocol Last Admin: 08/11/23 09:30 Dose: Not Given Lorazepam (Lorazepam 0.5 Mg Tablet) 0.5 mg PO Q8H PRN PRN Reason: anxiety/restlessness Last Admin: 08/10/23 20:33 Dose: 0.5 mg Magnesium Hydroxide (Milk Of Magnesia 30 Ml Oral.Susp) 30 ml PO DAILY PRN PRN Reason: Constipation Magnesium Hydroxide (Milk Of Magnesia 30 Ml Oral.Susp) 30 ml PO DAILY PRN PRN Reason: Constipation Melatonin (Melatonin 3 Mg Tablet) 6 mg PO BEDTIME PRN PRN Reason: Insomnia Last Admin: 08/10/23 20:34 Dose: 6 mg Memantine (Memantine Hcl 10 Mg Tablet) 10 mg PO BID [facility] Last Admin: 08/11/23 09:29 Dose: 10 mg Quetiapine Fumarate (Quetiapine Fumarate 25 Mg Tablet) 25 mg PO BEDTIME MRX1 [facility] Last Admin: 08/10/23 21:07 Dose: Not Given Tamsulosin HCl (Tamsulosin Hcl 0.4 Mg Capsule) 0.4 mg PO DAILY@1730 [facility] Last Admin: 08/11/23 16:16 Dose: 0.4 mg Thiamine HCl (Thiamine Hcl 100 Mg Tablet) 100 mg PO BID [facility] Last Admin: 08/11/23 09:28 Dose: 100 mg Trazodone HCl (Trazodone Hcl 50 Mg Tablet) 50 mg PO BEDTIME MRX1 PRN PRN Reason: Insomnia Last Admin: 08/08/23 20:53 Dose: 50 mg Vortioxetine (Vortioxetine Hydrobromide 20 Mg Tablet) 20 mg PO DAILY [facility] Last Admin: 08/11/23 09:29 Dose: 20 mg Allergies Allergies Allergy/AdvReac Type Severity Reaction Status Date / Time risperidone [From Risperdal] Allergy Intermediate UNKNOWN Verified 05/12/23 13:13 Sulfa (Sulfonamide Allergy Intermediate rash Verified 05/12/23 13:13 Antibiotics) From BENADRYL Allergy Intermediate DIZZY Uncoded 02/14/23 11:47 Assessment & Plan Assessment & Plan (1) Major depressive disorder, recurrent severe without psychotic features: Status: Acute Code(s): F33.2 - Major depressive disorder, recurrent severe without psychotic features (2) Spondylosis without myelopathy or radiculopathy, lumbar region: Status: Acute Code(s): M47.816 - Spondylosis without myelopathy or radiculopathy, lumbar region (3) Insomnia: Qualifiers: Insomnia type: unspecified Qualified Code(s): G47.00 - Insomnia, unspecified Status: Acute Code(s): G47.00 - Insomnia, unspecified Plan This patient suffering from spondylosis of lumbar spine and multiple old compression fractures of the lumbar spine. There is tenderness on palpation in the projection of L1-L2 and L3 vertebras. She denies radiation of the pain. Most likely her pain is secondary to spondylosis and facet joint arthropathy. Due to her mental status I do not think that neuromodulation would be a good way of treating this patient's pain, this is why I offered to her therapeutic T12-L1 L2 L3 bilateral medial branch block. It is not clear for me whether the patient can sign her own consent. It is also remains to be seen whether she can tolerate the procedure without sedation. With history of psychotic depression she might not be able to stand still on the operating table without anesthesia assistance. We will schedule this procedure as soon as this issue will be clarified. 08/06/2023 Pain management note reviewed and appreciated. Patient remains depressed demoralized over not returning home does seem to understand situation and why it appears she can not. The patient generally is able to give consent however may need help to consent to above procedure need to clarify healthcare proxy issues 08/07/23 Will need to involve healthcare proxy and decision for surgery cont namena aricept less restlessness with vraylar d/c 08/08/23 CTP 08/09/23 CTP watch bp meds and bp - ? lower dosing 08/10/23 cont [id number] low dose seroquel lower clonidine 08/11/23 Cont beharioral plan of care d/c planning Reason for continued inpatient stay Substantial Risk for: inability to function, rapid decompensation and med/psych decompensation Time Spent With Patient Time: Total time managing care of this patient today ____ minutes.
[2023-08-11] MEDS: Donepezil HCl 10 MG TABLET PO (21:22)
[2023-08-11] MEDS: QUEtiapine Fumarate 25 MG TABLET PO (21:23)
[2023-08-11] MEDS: traZODone HCL 50 MG TABLET PO (21:23)
[2023-08-11] MEDS: LORazepam 0.5 MG TABLET PO (21:23)
[2023-08-11] MEDS: Melatonin 3 MG TABLET 6 MG PO (21:23)
[2023-08-12 08:30] VITALS: BP 104/60; PULSE 77; RESP 16; TEMP 36.5; O2SAT 94
[2023-08-12] MEDS: Thiamine HCL 100 MG TABLET PO ×2 (08:53→20:57)
[2023-08-12] MEDS: cloNIDine HCL 0.1 MG TABLET 0.05 MG PO ×3 (08:53→20:53)
[2023-08-12] MEDS: Memantine HCl 10 MG TABLET PO ×2 (08:53→20:57)
[2023-08-12] MEDS: Vortioxetine Hydrobromide 20 MG TABLET PO (08:53)
[2023-08-12] MEDS: Folic Acid 1 MG TABLET PO (08:53)
[2023-08-12 12:57] LABS: Appearance Urine Turbid; Color Urine RED; Glucose Urine UA Negative (Negative); PH 6.5 (5.0-9.0); Specific Gravity - Urine >= 1.030 (1.005-1.025); UMIC TRIGGER UACC YES; Urine Blood Large (3+) (Negative)
[2023-08-12 13:08] LABS: Bacteria Urine Trace (None Seen); Hyaline Casts Urine 0-2 /LPF (0-2); RBC Urine >20 /HPF (0-2); Squamous Epithelial Cell Urine 0-2 /HPF (0-2); UACC Culture Trigger YES; WBC Urine >50 /HPF (0-5)
[2023-08-12 13:09] LABS: WBC Clumps Urine Present
[2023-08-12] MEDS: Acetaminophen 325 MG TABLET 650 MG PO (15:54)
[2023-08-12] MEDS: Tamsulosin HCL 0.4 MG CAPSULE PO (16:06)
[2023-08-12] MEDS: cefuroxime axetiL 500 MG TABLET PO ×2 (17:59→20:53)
[2023-08-12 18:00] VITALS: BP 114/59; PULSE 84; RESP 18; TEMP 36.6; O2SAT 96
--- NOTE | 2023-08-12 20:38 | HO.PSYCHPN ---
Subjective Subjective Date of Service: 08/12/23 Reason For Visit: Major depression with psychotic features Subjective Notes: Conditional Voluntary Interim History: THE PATIENT HAS NOT BEEN FEELING WELL NOTICES BURNING ON URINATION ONGOING BACK PAIN MOOD FLAT UA SHOWED BLOOD Mental Status Exam Mental Status Exam Narrative: SEEN IN HER ROOM SAD LOOKING Patient Appearance: Appropriate Patient Orientation: Person and Place Level of Consciousness: Awake Patient Behavior: Dependent and Passive Mood Description: Withdrawn Affect Description: Flat Patient Cognition Impaired: Yes Ability to Follow Directions: Fair Speech Pattern: Clear and Impoverished Hallucinations: None Thought Process: Intact Thought Content: positive for [place] and positive for Poverty of Content Depressive Symptoms: Back Pain Judgement: Poor Diagnostics Vital Signs (24Hr): Vital Signs - 24 hr 08/12/23 08:30 Temperature 97.7 F Pulse Rate 77 Respiratory Rate 16 Blood Pressure 104/60 Pulse Oximetry 94 Oxygen Delivery Method Room Air BMI result Body Mass Index 25.0 Labs 07/16/23 10:34 07/17/23 08:12 Labs: Laboratory Results - last 48 hr 08/12/23 12:33 Urine Color RED Urine Appearance Turbid Urine pH 6.5 Ur Specific [place] >= 1.030 H Urine Protein See Note Urine Glucose (UA) Negative Urine Ketones See Note Urine Blood Large (3+) H Urine Nitrite See Note Ur Leukocyte Esterase See Note Urine RBC >20 H Urine WBC >50 H Urine WBC Clumps Present Ur Squamous Epith Cells 0-2 Urine Bacteria Trace Hyaline Casts 0-2 Medications Medications Current Medications Acetaminophen (Acetaminophen 325 Mg Tablet) 650 mg PO Q6H PRN PRN Reason: Headache/Pain Mild Scale (1-3) Last Admin: 08/12/23 15:54 Dose: 650 mg Al Hydroxide/Mg Hydroxide (Magnesium Hydrox/Alum Hydrox 30 Ml Oral.Susp) 30 ml PO Q6H PRN PRN Reason: Heartburn/Nausea Al Hydroxide/Mg Hydroxide (Magnesium Hydrox/Alum Hydrox 30 Ml Oral.Susp) 30 ml PO Q6H PRN PRN Reason: Heartburn/Nausea Cefuroxime Axetil (Cefuroxime Axetil 500 Mg Tablet) 500 mg PO BID [facility] Stop: 08/18/23 21:01 Last Admin: 08/12/23 17:59 Dose: 500 mg Clonidine HCl (Clonidine Hcl 0.1 Mg Tablet) 0.05 mg PO TID [facility]; Protocol Last Admin: 08/12/23 16:06 Dose: 0.05 mg Donepezil HCl (Donepezil Hcl 10 Mg Tablet) 10 mg PO BEDTIME [facility] Last Admin: 08/11/23 21:22 Dose: 10 mg Folic Acid (Folic Acid 1 Mg Tablet) 1 mg PO DAILY [facility] Last Admin: 08/12/23 08:53 Dose: 1 mg Ibuprofen (Ibuprofen 200 Mg Tablet) 200 mg PO Q6H PRN PRN Reason: Pain, Moderate(Pain Scale 4-6) Last Admin: 08/11/23 21:23 Dose: 200 mg Lidocaine (Lidocaine 4 % Patch Adh..Patch) 1 patch TRANSDERMA DAILY [facility]; Protocol Last Admin: 08/12/23 08:53 Dose: Not Given Lorazepam (Lorazepam 0.5 Mg Tablet) 0.5 mg PO Q8H PRN PRN Reason: anxiety/restlessness Last Admin: 08/11/23 21:23 Dose: 0.5 mg Magnesium Hydroxide (Milk Of Magnesia 30 Ml Oral.Susp) 30 ml PO DAILY PRN PRN Reason: Constipation Magnesium Hydroxide (Milk Of Magnesia 30 Ml Oral.Susp) 30 ml PO DAILY PRN PRN Reason: Constipation Melatonin (Melatonin 3 Mg Tablet) 6 mg PO BEDTIME PRN PRN Reason: Insomnia Last Admin: 08/11/23 21:23 Dose: 6 mg Memantine (Memantine Hcl 10 Mg Tablet) 10 mg PO BID [facility] Last Admin: 08/12/23 08:53 Dose: 10 mg Quetiapine Fumarate (Quetiapine Fumarate 25 Mg Tablet) 25 mg PO BEDTIME MRX1 [facility] Last Admin: 08/11/23 22:33 Dose: Not Given Tamsulosin HCl (Tamsulosin Hcl 0.4 Mg Capsule) 0.4 mg PO DAILY@1730 [facility] Last Admin: 08/12/23 16:06 Dose: 0.4 mg Thiamine HCl (Thiamine Hcl 100 Mg Tablet) 100 mg PO BID [facility] Last Admin: 08/12/23 08:53 Dose: 100 mg Trazodone HCl (Trazodone Hcl 50 Mg Tablet) 50 mg PO BEDTIME MRX1 PRN PRN Reason: Insomnia Last Admin: 08/11/23 21:23 Dose: 50 mg Vortioxetine (Vortioxetine Hydrobromide 20 Mg Tablet) 20 mg PO DAILY [facility] Last Admin: 08/12/23 08:53 Dose: 20 mg Allergies Allergies Allergy/AdvReac Type Severity Reaction Status Date / Time risperidone [From Risperdal] Allergy Intermediate UNKNOWN Verified 05/12/23 13:13 Sulfa (Sulfonamide Allergy Intermediate rash Verified 05/12/23 13:13 Antibiotics) From BENADRYL Allergy Intermediate DIZZY Uncoded 02/14/23 11:47 Assessment & Plan Assessment & Plan (1) Major depressive disorder, recurrent severe without psychotic features: Status: Acute Code(s): F33.2 - Major depressive disorder, recurrent severe without psychotic features (2) Spondylosis without myelopathy or radiculopathy, lumbar region: Status: Acute Code(s): M47.816 - Spondylosis without myelopathy or radiculopathy, lumbar region (3) Insomnia: Qualifiers: Insomnia type: unspecified Qualified Code(s): G47.00 - Insomnia, unspecified Status: Acute Code(s): G47.00 - Insomnia, unspecified Plan This patient suffering from spondylosis of lumbar spine and multiple old compression fractures of the lumbar spine. There is tenderness on palpation in the projection of L1-L2 and L3 vertebras. She denies radiation of the pain. Most likely her pain is secondary to spondylosis and facet joint arthropathy. Due to her mental status I do not think that neuromodulation would be a good way of treating this patient's pain, this is why I offered to her therapeutic T12-L1 L2 L3 bilateral medial branch block. It is not clear for me whether the patient can sign her own consent. It is also remains to be seen whether she can tolerate the procedure without sedation. With history of psychotic depression she might not be able to stand still on the operating table without anesthesia assistance. We will schedule this procedure as soon as this issue will be clarified. 08/06/2023 Pain management note reviewed and appreciated. Patient remains depressed demoralized over not returning home does seem to understand situation and why it appears she can not. The patient generally is able to give consent however may need help to consent to above procedure need to clarify healthcare proxy issues 08/07/23 Will need to involve healthcare proxy and decision for surgery cont namena aricept less restlessness with vraylar d/c 08/08/23 CTP 08/09/23 CTP watch bp meds and bp - ? lower dosing 08/10/23 cont [id number] low dose seroquel lower clonidine 08/11/23 Cont beharioral plan of care d/c planning 08/12/2023 STARTED ON CEFTIN BURNING ON URINATION NOTED NO NOTED KIDNEY STONES ON RECENT PLAIN FILMS ENCOURAGE FLUIDS CONTINUE DISCHARGE PLANNING Patient educated on: diagnosis and medical condition Informed Consent: further education needed Reason for continued inpatient stay Substantial Risk for: inability to function and rapid decompensation Time Spent With Patient Time: Total time managing care of this patient today ____ minutes.
[2023-08-12] MEDS: Donepezil HCl 10 MG TABLET PO (20:56)
[2023-08-12] MEDS: QUEtiapine Fumarate 25 MG TABLET PO ×2 (20:57→23:13)
[2023-08-12] MEDS: Melatonin 3 MG TABLET 6 MG PO (23:00)
[2023-08-12] MEDS: LORazepam 0.5 MG TABLET PO (23:15)
[2023-08-13 07:00] VITALS: BMI 25.4
[2023-08-13 07:40] VITALS: BP 108/56; PULSE 120; RESP 16; TEMP 36.2; O2SAT 95
[2023-08-13] MEDS: Folic Acid 1 MG TABLET PO (09:00)
[2023-08-13] MEDS: Memantine HCl 10 MG TABLET PO ×2 (09:00→21:01)
[2023-08-13] MEDS: cefuroxime axetiL 500 MG TABLET PO ×2 (09:00→21:01)
[2023-08-13] MEDS: cloNIDine HCL 0.1 MG TABLET 0.05 MG PO ×2 (09:00→21:00)
[2023-08-13] MEDS: Vortioxetine Hydrobromide 20 MG TABLET PO (09:01)
[2023-08-13] MEDS: Thiamine HCL 100 MG TABLET PO ×2 (09:02→21:01)
[2023-08-13 12:20] VITALS: PULSE 110; O2SAT 98
--- NOTE | 2023-08-13 12:42 | P.PNPSI_ITS ---
Subjective Subjective Date of Service: 08/13/23 Reason For Visit: Major depression with psychotic features Subjective Notes: Conditional Voluntary Interim History: pt anxious dysphoric pacing tx for uti Mental Status Exam Mental Status Exam Patient Appearance: Appropriate Patient Orientation: Person and Place Level of Consciousness: Awake Patient Behavior: Dependent and Passive Mood Description: Withdrawn Affect Description: Flat Patient Cognition Impaired: Yes Ability to Follow Directions: Fair Speech Pattern: Clear and Impoverished Hallucinations: None Thought Process: Intact Thought Content: positive for [place] and positive for Poverty of Content Depressive Symptoms: Back Pain Judgement: Poor Diagnostics Vital Signs (24Hr): Vital Signs - 24 hr 08/12/23 18:00 08/13/23 07:40 08/13/23 12:20 Temperature 97.9 F 97.2 F Pulse Rate 84 120 H 110 H Respiratory Rate 18 16 Blood Pressure 114/59 L 108/56 L Pulse Oximetry 96 95 98 Oxygen Delivery Method Room Air Room Air Room Air BMI result Body Mass Index 25.0 Labs 07/16/23 10:34 07/17/23 08:12 Labs: Laboratory Results - last 48 hr 08/12/23 12:33 Urine Color RED Urine Appearance Turbid Urine pH 6.5 Ur Specific [place] >= 1.030 H Urine Protein See Note Urine Glucose (UA) Negative Urine Ketones See Note Urine Blood Large (3+) H Urine Nitrite See Note Ur Leukocyte Esterase See Note Urine RBC >20 H Urine WBC >50 H Urine WBC Clumps Present Ur Squamous Epith Cells 0-2 Urine Bacteria Trace Hyaline Casts 0-2 Medications Medications Current Medications Acetaminophen (Acetaminophen 325 Mg Tablet) 650 mg PO Q6H PRN PRN Reason: Headache/Pain Mild Scale (1-3) Last Admin: 08/12/23 15:54 Dose: 650 mg Al Hydroxide/Mg Hydroxide (Magnesium Hydrox/Alum Hydrox 30 Ml Oral.Susp) 30 ml PO Q6H PRN PRN Reason: Heartburn/Nausea Al Hydroxide/Mg Hydroxide (Magnesium Hydrox/Alum Hydrox 30 Ml Oral.Susp) 30 ml PO Q6H PRN PRN Reason: Heartburn/Nausea Cefuroxime Axetil (Cefuroxime Axetil 500 Mg Tablet) 500 mg PO BID [facility] Stop: 08/18/23 21:01 Last Admin: 08/13/23 09:00 Dose: 500 mg Clonidine HCl (Clonidine Hcl 0.1 Mg Tablet) 0.05 mg PO TID [facility]; Protocol Last Admin: 08/13/23 09:00 Dose: 0.05 mg Donepezil HCl (Donepezil Hcl 10 Mg Tablet) 10 mg PO BEDTIME [facility] Last Admin: 08/12/23 20:56 Dose: 10 mg Folic Acid (Folic Acid 1 Mg Tablet) 1 mg PO DAILY [facility] Last Admin: 08/13/23 09:00 Dose: 1 mg Ibuprofen (Ibuprofen 200 Mg Tablet) 200 mg PO Q6H PRN PRN Reason: Pain, Moderate(Pain Scale 4-6) Last Admin: 08/11/23 21:23 Dose: 200 mg Lidocaine (Lidocaine 4 % Patch Adh..Patch) 1 patch TRANSDERMA DAILY [facility]; Protocol Last Admin: 08/13/23 09:03 Dose: Not Given Lorazepam (Lorazepam 0.5 Mg Tablet) 0.5 mg PO Q8H PRN PRN Reason: anxiety/restlessness Last Admin: 08/12/23 23:15 Dose: 0.5 mg Magnesium Hydroxide (Milk Of Magnesia 30 Ml Oral.Susp) 30 ml PO DAILY PRN PRN Reason: Constipation Magnesium Hydroxide (Milk Of Magnesia 30 Ml Oral.Susp) 30 ml PO DAILY PRN PRN Reason: Constipation Melatonin (Melatonin 3 Mg Tablet) 6 mg PO BEDTIME PRN PRN Reason: Insomnia Last Admin: 08/12/23 23:00 Dose: 6 mg Memantine (Memantine Hcl 10 Mg Tablet) 10 mg PO BID [facility] Last Admin: 08/13/23 09:00 Dose: 10 mg Quetiapine Fumarate (Quetiapine Fumarate 25 Mg Tablet) 25 mg PO BEDTIME MRX1 [facility] Last Admin: 08/12/23 23:20 Dose: Not Given Tamsulosin HCl (Tamsulosin Hcl 0.4 Mg Capsule) 0.4 mg PO DAILY@1730 [facility] Last Admin: 08/12/23 16:06 Dose: 0.4 mg Thiamine HCl (Thiamine Hcl 100 Mg Tablet) 100 mg PO BID [facility] Last Admin: 08/13/23 09:02 Dose: 100 mg Trazodone HCl (Trazodone Hcl 50 Mg Tablet) 50 mg PO BEDTIME MRX1 PRN PRN Reason: Insomnia Last Admin: 08/11/23 21:23 Dose: 50 mg Vortioxetine (Vortioxetine Hydrobromide 20 Mg Tablet) 20 mg PO DAILY [facility] Last Admin: 08/13/23 09:01 Dose: 20 mg Allergies Allergies Allergy/AdvReac Type Severity Reaction Status Date / Time risperidone [From Risperdal] Allergy Intermediate UNKNOWN Verified 05/12/23 13:13 Sulfa (Sulfonamide Allergy Intermediate rash Verified 05/12/23 13:13 Antibiotics) From BENADRYL Allergy Intermediate DIZZY Uncoded 02/14/23 11:47 Assessment & Plan Assessment & Plan (1) Major depressive disorder, recurrent severe without psychotic features: Status: Acute Code(s): F33.2 - Major depressive disorder, recurrent severe without psychotic features (2) Spondylosis without myelopathy or radiculopathy, lumbar region: Status: Acute Code(s): M47.816 - Spondylosis without myelopathy or radiculopathy, lumbar region (3) Insomnia: Qualifiers: Insomnia type: unspecified Qualified Code(s): G47.00 - Insomnia, unspecified Status: Acute Code(s): G47.00 - Insomnia, unspecified Plan This patient suffering from spondylosis of lumbar spine and multiple old compression fractures of the lumbar spine. There is tenderness on palpation in the projection of L1-L2 and L3 vertebras. She denies radiation of the pain. Most likely her pain is secondary to spondylosis and facet joint arthropathy. Due to her mental status I do not think that neuromodulation would be a good way of treating this patient's pain, this is why I offered to her therapeutic T12-L1 L2 L3 bilateral medial branch block. It is not clear for me whether the patient can sign her own consent. It is also remains to be seen whether she can tolerate the procedure without sedation. With history of psychotic depression she might not be able to stand still on the operating table without anesthesia assistance. We will schedule this procedure as soon as this issue will be clarified. 08/06/2023 Pain management note reviewed and appreciated. Patient remains depressed demoralized over not returning home does seem to understand situation and why it appears she can not. The patient generally is able to give consent however may need help to consent to above procedure need to clarify healthcare proxy issues 08/07/23 Will need to involve healthcare proxy and decision for surgery cont namena aricept less restlessness with vraylar d/c 08/08/23 CTP 08/09/23 CTP watch bp meds and bp - ? lower dosing 08/10/23 cont [id number] low dose seroquel lower clonidine 08/11/23 Cont beharioral plan of care d/c planning 08/12/2023 STARTED ON CEFTIN BURNING ON URINATION NOTED NO NOTED KIDNEY STONES ON RECENT PLAIN FILMS ENCOURAGE FLUIDS CONTINUE DISCHARGE PLANNING 08/13/2023 Continue discharge plan continue Ceftin Reason for continued inpatient stay Substantial Risk for: inability to function and rapid decompensation Time Spent With Patient Time: Total time managing care of this patient today ____ minutes.
[2023-08-13] MEDS: Propranolol HCL 10 MG TABLET PO ×2 (12:56→21:01)
[2023-08-13 12:59] VITALS: BP 96/60; PULSE 92
--- NOTE | 2023-08-13 13:36 | PC.NURSE ---
Patient on antibiotics for a UTI, culture is pending. Mucous membranes are moist and her skin turgor is good. Patient with elevated pulse before and after medications 120/110. Dr Willett updated and new orders obtained. Propranolol started today. visited and updated on UTI, treatment and new medication which she had been on previously for her elevated pulse. Patient denies chest pain/discomfort.
[2023-08-13 14:28] VITALS: BP 100/55; PULSE 68
[2023-08-13] MEDS: Tamsulosin HCL 0.4 MG CAPSULE PO (16:41)
[2023-08-13] MEDS: Acetaminophen 325 MG TABLET 650 MG PO (18:37)
[2023-08-13 19:49] VITALS: BP 126/72; PULSE 92; RESP 18; TEMP 35.7; O2SAT 96
[2023-08-13] MEDS: traZODone HCL 50 MG TABLET PO (21:01)
[2023-08-13] MEDS: Donepezil HCl 10 MG TABLET PO (21:01)
[2023-08-13] MEDS: QUEtiapine Fumarate 25 MG TABLET PO (21:01)
[2023-08-14 00:55] VITALS: O2SAT 98
[2023-08-14] MEDS: QUEtiapine Fumarate 25 MG TABLET PO ×2 (01:01→20:08)
[2023-08-14] MEDS: LORazepam 0.5 MG TABLET PO ×2 (01:01→20:08)
[2023-08-14 07:45] VITALS: BP 95/61; PULSE 84; RESP 18; TEMP 36.2; O2SAT 97
[2023-08-14] MEDS: cefuroxime axetiL 500 MG TABLET PO ×2 (09:07→20:08)
[2023-08-14] MEDS: Vortioxetine Hydrobromide 20 MG TABLET PO (09:07)
[2023-08-14] MEDS: Memantine HCl 10 MG TABLET PO ×2 (09:07→20:08)
[2023-08-14] MEDS: Thiamine HCL 100 MG TABLET PO ×2 (09:07→20:07)
[2023-08-14] MEDS: Folic Acid 1 MG TABLET PO (09:07)
--- NOTE | 2023-08-14 13:54 | HO.PSYCHPN ---
Subjective Subjective Date of Service: 08/14/23 Reason For Visit: Major depression with psychotic features Interim History: PATIENT COOPERATIVE some engagement on the unit mood Flattening depressed no active SI gets regular visits by her discussed wanting to go to assisted living no clear funding source no current active urinary symptoms Mental Status Exam Mental Status Exam Patient Appearance: Appropriate Patient Orientation: Person and Place Level of Consciousness: Awake Patient Behavior: Dependent and Passive Mood Description: Withdrawn Affect Description: Flat Patient Cognition Impaired: Yes Ability to Follow Directions: Fair Speech Pattern: Clear and Impoverished Hallucinations: None Thought Process: Intact Thought Content: positive for [place] and positive for Poverty of Content Depressive Symptoms: Back Pain Judgement: Poor Diagnostics Vital Signs (24Hr): Vital Signs - 24 hr 08/13/23 14:28 08/13/23 19:49 08/14/23 00:55 Temperature 96.2 F L Pulse Rate 68 92 Respiratory Rate 18 Blood Pressure 100/55 L 126/72 Pulse Oximetry 96 98 Oxygen Delivery Method Room Air Nasal Cannula Oxygen Flow Rate 2 08/14/23 07:45 Temperature 97.2 F Pulse Rate 84 Respiratory Rate 18 Blood Pressure 95/61 Pulse Oximetry 97 Oxygen Delivery Method Room Air Oxygen Flow Rate BMI result Body Mass Index 25.4 Labs 07/16/23 10:34 07/17/23 08:12 Medications Medications Current Medications Acetaminophen (Acetaminophen 325 Mg Tablet) 650 mg PO Q6H PRN PRN Reason: Headache/Pain Mild Scale (1-3) Last Admin: 08/13/23 18:37 Dose: 650 mg Al Hydroxide/Mg Hydroxide (Magnesium Hydrox/Alum Hydrox 30 Ml Oral.Susp) 30 ml PO Q6H PRN PRN Reason: Heartburn/Nausea Al Hydroxide/Mg Hydroxide (Magnesium Hydrox/Alum Hydrox 30 Ml Oral.Susp) 30 ml PO Q6H PRN PRN Reason: Heartburn/Nausea Cefuroxime Axetil (Cefuroxime Axetil 500 Mg Tablet) 500 mg PO BID [facility] Stop: 08/18/23 21:01 Last Admin: 08/14/23 09:07 Dose: 500 mg Clonidine HCl (Clonidine Hcl 0.1 Mg Tablet) 0.05 mg PO TID [facility]; Protocol Last Admin: 08/14/23 09:07 Dose: Not Given Donepezil HCl (Donepezil Hcl 10 Mg Tablet) 10 mg PO BEDTIME [facility] Last Admin: 08/13/23 21:01 Dose: 10 mg Folic Acid (Folic Acid 1 Mg Tablet) 1 mg PO DAILY [facility] Last Admin: 08/14/23 09:07 Dose: 1 mg Ibuprofen (Ibuprofen 200 Mg Tablet) 200 mg PO Q6H PRN PRN Reason: Pain, Moderate(Pain Scale 4-6) Last Admin: 08/11/23 21:23 Dose: 200 mg Lidocaine (Lidocaine 4 % Patch Adh..Patch) 1 patch TRANSDERMA DAILY [facility]; Protocol Last Admin: 08/14/23 09:07 Dose: Not Given Lorazepam (Lorazepam 0.5 Mg Tablet) 0.5 mg PO Q8H PRN PRN Reason: anxiety/restlessness Last Admin: 08/14/23 01:01 Dose: 0.5 mg Magnesium Hydroxide (Milk Of Magnesia 30 Ml Oral.Susp) 30 ml PO DAILY PRN PRN Reason: Constipation Magnesium Hydroxide (Milk Of Magnesia 30 Ml Oral.Susp) 30 ml PO DAILY PRN PRN Reason: Constipation Melatonin (Melatonin 3 Mg Tablet) 6 mg PO BEDTIME PRN PRN Reason: Insomnia Last Admin: 08/12/23 23:00 Dose: 6 mg Memantine (Memantine Hcl 10 Mg Tablet) 10 mg PO BID [facility] Last Admin: 08/14/23 09:07 Dose: 10 mg Propranolol HCl (Propranolol Hcl 10 Mg Tablet) 10 mg PO TID [facility]; Protocol Last Admin: 08/14/23 09:08 Dose: Not Given Quetiapine Fumarate (Quetiapine Fumarate 25 Mg Tablet) 25 mg PO BEDTIME MRX1 [facility] Last Admin: 08/14/23 01:01 Dose: 25 mg Tamsulosin HCl (Tamsulosin Hcl 0.4 Mg Capsule) 0.4 mg PO DAILY@1730 [facility] Last Admin: 08/13/23 16:41 Dose: 0.4 mg Thiamine HCl (Thiamine Hcl 100 Mg Tablet) 100 mg PO BID [facility] Last Admin: 08/14/23 09:07 Dose: 100 mg Trazodone HCl (Trazodone Hcl 50 Mg Tablet) 50 mg PO BEDTIME MRX1 PRN PRN Reason: Insomnia Last Admin: 08/13/23 21:01 Dose: 50 mg Vortioxetine (Vortioxetine Hydrobromide 20 Mg Tablet) 20 mg PO DAILY [facility] Last Admin: 08/14/23 09:07 Dose: 20 mg Allergies Allergies Allergy/AdvReac Type Severity Reaction Status Date / Time risperidone [From Risperdal] Allergy Intermediate UNKNOWN Verified 05/12/23 13:13 Sulfa (Sulfonamide Allergy Intermediate rash Verified 05/12/23 13:13 Antibiotics) From BENADRYL Allergy Intermediate DIZZY Uncoded 02/14/23 11:47 Assessment & Plan Assessment & Plan (1) Major depressive disorder, recurrent severe without psychotic features: Status: Acute Code(s): F33.2 - Major depressive disorder, recurrent severe without psychotic features (2) Spondylosis without myelopathy or radiculopathy, lumbar region: Status: Acute Code(s): M47.816 - Spondylosis without myelopathy or radiculopathy, lumbar region (3) Insomnia: Qualifiers: Insomnia type: unspecified Qualified Code(s): G47.00 - Insomnia, unspecified Status: Acute Code(s): G47.00 - Insomnia, unspecified Plan This patient suffering from spondylosis of lumbar spine and multiple old compression fractures of the lumbar spine. There is tenderness on palpation in the projection of L1-L2 and L3 vertebras. She denies radiation of the pain. Most likely her pain is secondary to spondylosis and facet joint arthropathy. Due to her mental status I do not think that neuromodulation would be a good way of treating this patient's pain, this is why I offered to her therapeutic T12-L1 L2 L3 bilateral medial branch block. It is not clear for me whether the patient can sign her own consent. It is also remains to be seen whether she can tolerate the procedure without sedation. With history of psychotic depression she might not be able to stand still on the operating table without anesthesia assistance. We will schedule this procedure as soon as this issue will be clarified. 08/06/2023 Pain management note reviewed and appreciated. Patient remains depressed demoralized over not returning home does seem to understand situation and why it appears she can not. The patient generally is able to give consent however may need help to consent to above procedure need to clarify healthcare proxy issues 08/07/23 Will need to involve healthcare proxy and decision for surgery cont namena aricept less restlessness with vraylar d/c 08/08/23 CTP 08/09/23 CTP watch bp meds and bp - ? lower dosing 08/10/23 cont [id number] low dose seroquel lower clonidine 08/11/23 Cont beharioral plan of care d/c planning 08/12/2023 STARTED ON CEFTIN BURNING ON URINATION NOTED NO NOTED KIDNEY STONES ON RECENT PLAIN FILMS ENCOURAGE FLUIDS CONTINUE DISCHARGE PLANNING 08/13/2023 Continue discharge plan continue Ceftin 01/29 Continue current treatment plan discharge planning Reason for continued inpatient stay Substantial Risk for: inability to function and rapid decompensation Time Spent With Patient Time: Total time managing care of this patient today ____ minutes.
[2023-08-14 14:19] VITALS: BP 122/75; PULSE 113
[2023-08-14] MEDS: cloNIDine HCL 0.1 MG TABLET 0.05 MG PO ×2 (14:26→20:07)
[2023-08-14] MEDS: Propranolol HCL 10 MG TABLET PO ×2 (14:27→20:07)
[2023-08-14] MEDS: Tamsulosin HCL 0.4 MG CAPSULE PO (16:53)
[2023-08-14 18:00] VITALS: BP 128/83; PULSE 102; RESP 18; TEMP 36.1; O2SAT 96
[2023-08-14] MEDS: traZODone HCL 50 MG TABLET PO (20:07)
[2023-08-14] MEDS: Donepezil HCl 10 MG TABLET PO (20:08)
[2023-08-15 08:20] VITALS: BP 113/58; PULSE 97; RESP 20; TEMP 36.3; O2SAT 93
[2023-08-15] MEDS: Vortioxetine Hydrobromide 20 MG TABLET PO (08:28)
[2023-08-15] MEDS: Memantine HCl 10 MG TABLET PO ×2 (08:28→20:32)
[2023-08-15] MEDS: cefuroxime axetiL 500 MG TABLET PO ×2 (08:28→20:31)
[2023-08-15] MEDS: Thiamine HCL 100 MG TABLET PO ×2 (08:28→20:33)
[2023-08-15] MEDS: Propranolol HCL 10 MG TABLET PO ×3 (08:28→20:33)
[2023-08-15] MEDS: Ibuprofen 200 MG TABLET PO (08:28)
[2023-08-15] MEDS: Folic Acid 1 MG TABLET PO (08:29)
[2023-08-15] MEDS: cloNIDine HCL 0.1 MG TABLET 0.05 MG PO ×3 (08:29→20:31)
--- NOTE | 2023-08-15 10:51 | P.PNPSI_ITS ---
Subjective Subjective Date of Service: 08/15/23 Reason For Visit: Major depression with psychotic features Subjective Notes: Conditional Voluntary Interim History: Met with patient. Discussed with Nursing. On antibiotics for UTI. Not requiring lidocaine patch. 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 Reports staff for treating her well. Denies depression. Does endorse not having motivation however. Self-care is okay. In bed and preferred to isolate Medication Compliance: Yes Side effects from medications: No Attending Groups: Intermittent Review of Systems Acute medical concerns: No Review of Systems Review of Systems unremarkable Mental Status Exam Mental Status Exam Narrative: in bed. Self-care okay. Isolative. Denies depression. Does report poor motivation. No SI, HI or psychosis evident. Insight and judgment fair Diagnostics Vital Signs (24Hr): Vital Signs - 24 hr 08/14/23 14:19 08/14/23 18:00 08/15/23 08:20 Temperature 97 F 97.3 F Pulse Rate 113 H 102 H 97 Respiratory Rate 18 20 Blood Pressure 122/75 128/83 113/58 L Pulse Oximetry 96 93 Oxygen Delivery Method Room Air Room Air BMI result Body Mass Index 25.4 Labs 07/16/23 10:34 07/17/23 08:12 Medications Medications Current Medications Acetaminophen (Acetaminophen 325 Mg Tablet) 650 mg PO Q6H PRN PRN Reason: Headache/Pain Mild Scale (1-3) Last Admin: 08/13/23 18:37 Dose: 650 mg Al Hydroxide/Mg Hydroxide (Magnesium Hydrox/Alum Hydrox 30 Ml Oral.Susp) 30 ml PO Q6H PRN PRN Reason: Heartburn/Nausea Al Hydroxide/Mg Hydroxide (Magnesium Hydrox/Alum Hydrox 30 Ml Oral.Susp) 30 ml PO Q6H PRN PRN Reason: Heartburn/Nausea Cefuroxime Axetil (Cefuroxime Axetil 500 Mg Tablet) 500 mg PO BID [facility] Stop: 08/18/23 21:01 Last Admin: 08/15/23 08:28 Dose: 500 mg Clonidine HCl (Clonidine Hcl 0.1 Mg Tablet) 0.05 mg PO TID [facility]; Protocol Last Admin: 08/15/23 08:29 Dose: 0.05 mg Donepezil HCl (Donepezil Hcl 10 Mg Tablet) 10 mg PO BEDTIME [facility] Last Admin: 08/14/23 20:08 Dose: 10 mg Folic Acid (Folic Acid 1 Mg Tablet) 1 mg PO DAILY [facility] Last Admin: 08/15/23 08:29 Dose: 1 mg Ibuprofen (Ibuprofen 200 Mg Tablet) 200 mg PO Q6H PRN PRN Reason: Pain, Moderate(Pain Scale 4-6) Last Admin: 08/15/23 08:28 Dose: 200 mg Lorazepam (Lorazepam 0.5 Mg Tablet) 0.5 mg PO Q8H PRN PRN Reason: anxiety/restlessness Last Admin: 08/14/23 20:08 Dose: 0.5 mg Magnesium Hydroxide (Milk Of Magnesia 30 Ml Oral.Susp) 30 ml PO DAILY PRN PRN Reason: Constipation Magnesium Hydroxide (Milk Of Magnesia 30 Ml Oral.Susp) 30 ml PO DAILY PRN PRN Reason: Constipation Melatonin (Melatonin 3 Mg Tablet) 6 mg PO BEDTIME PRN PRN Reason: Insomnia Last Admin: 08/12/23 23:00 Dose: 6 mg Memantine (Memantine Hcl 10 Mg Tablet) 10 mg PO BID [facility] Last Admin: 08/15/23 08:28 Dose: 10 mg Propranolol HCl (Propranolol Hcl 10 Mg Tablet) 10 mg PO TID [facility]; Protocol Last Admin: 08/15/23 08:28 Dose: 10 mg Quetiapine Fumarate (Quetiapine Fumarate 25 Mg Tablet) 25 mg PO BEDTIME MRX1 [facility] Last Admin: 08/14/23 21:08 Dose: Not Given Tamsulosin HCl (Tamsulosin Hcl 0.4 Mg Capsule) 0.4 mg PO DAILY@1730 [facility] Last Admin: 08/14/23 16:53 Dose: 0.4 mg Thiamine HCl (Thiamine Hcl 100 Mg Tablet) 100 mg PO BID [facility] Last Admin: 08/15/23 08:28 Dose: 100 mg Trazodone HCl (Trazodone Hcl 50 Mg Tablet) 50 mg PO BEDTIME MRX1 PRN PRN Reason: Insomnia Last Admin: 08/14/23 20:07 Dose: 50 mg Vortioxetine (Vortioxetine Hydrobromide 20 Mg Tablet) 20 mg PO DAILY [facility] Last Admin: 08/15/23 08:28 Dose: 20 mg Allergies Allergies Allergy/AdvReac Type Severity Reaction Status Date / Time risperidone [From Risperdal] Allergy Intermediate UNKNOWN Verified 05/12/23 13:13 Sulfa (Sulfonamide Allergy Intermediate rash Verified 05/12/23 13:13 Antibiotics) From BENADRYL Allergy Intermediate DIZZY Uncoded 02/14/23 11:47 Assessment & Plan Assessment & Plan (1) Major depressive disorder, recurrent severe without psychotic features: Status: Acute Code(s): F33.2 - Major depressive disorder, recurrent severe without psychotic features (2) Spondylosis without myelopathy or radiculopathy, lumbar region: Status: Acute Code(s): M47.816 - Spondylosis without myelopathy or radiculopathy, lumbar region (3) Insomnia: Qualifiers: Insomnia type: unspecified Qualified Code(s): G47.00 - Insomnia, unspecified Status: Acute Code(s): G47.00 - Insomnia, unspecified Plan This patient suffering from spondylosis of lumbar spine and multiple old compression fractures of the lumbar spine. There is tenderness on palpation in the projection of L1-L2 and L3 vertebras. She denies radiation of the pain. Most likely her pain is secondary to spondylosis and facet joint arthropathy. Due to her mental status I do not think that neuromodulation would be a good way of treating this patient's pain, this is why I offered to her therapeutic T12-L1 L2 L3 bilateral medial branch block. It is not clear for me whether the patient can sign her own consent. It is also remains to be seen whether she can tolerate the procedure without sedation. With history of psychotic depression she might not be able to stand still on the operating table without anesthesia assistance. We will schedule this procedure as soon as this issue will be clarified. 08/06/2023 Pain management note reviewed and appreciated. Patient remains depressed demoralized over not returning home does seem to understand situation and why it appears she can not. The patient generally is able to give consent however may need help to consent to above procedure need to clarify healthcare proxy issues 08/07/23 Will need to involve healthcare proxy and decision for surgery cont namena aricept less restlessness with vraylar d/c 08/08/23 CTP 08/09/23 CTP watch bp meds and bp - ? lower dosing 08/10/23 cont [id number] low dose seroquel lower clonidine 08/11/23 Cont beharioral plan of care d/c planning 08/12/2023 STARTED ON CEFTIN BURNING ON URINATION NOTED NO NOTED KIDNEY STONES ON RECENT PLAIN FILMS ENCOURAGE FLUIDS CONTINUE DISCHARGE PLANNING 08/13/2023 Continue discharge plan continue Ceftin 08/15/2023: No changes to current plan Reason for continued inpatient stay Substantial Risk for: rapid decompensation Time Spent With Patient Time: Total time managing care of this patient today ____ minutes.
[2023-08-15 15:00] VITALS: BP 107/53
[2023-08-15] MEDS: Tamsulosin HCL 0.4 MG CAPSULE PO (16:47)
[2023-08-15 18:00] VITALS: BP 117/55; PULSE 18; RESP 18; TEMP 36.4; O2SAT 95
[2023-08-15] MEDS: Donepezil HCl 10 MG TABLET PO (20:32)
[2023-08-15] MEDS: LORazepam 0.5 MG TABLET PO (20:32)
[2023-08-15] MEDS: traZODone HCL 50 MG TABLET PO (20:32)
[2023-08-15] MEDS: QUEtiapine Fumarate 25 MG TABLET PO (20:33)
[2023-08-16 08:51] VITALS: BP 126/67; PULSE 97; RESP 20; TEMP 36.2; O2SAT 95
[2023-08-16] MEDS: Thiamine HCL 100 MG TABLET PO ×2 (08:53→21:00)
[2023-08-16] MEDS: Vortioxetine Hydrobromide 20 MG TABLET PO (08:53)
[2023-08-16] MEDS: Propranolol HCL 10 MG TABLET PO ×3 (08:53→21:00)
[2023-08-16] MEDS: cefuroxime axetiL 500 MG TABLET PO ×2 (08:53→20:55)
[2023-08-16] MEDS: Folic Acid 1 MG TABLET PO (08:53)
[2023-08-16] MEDS: cloNIDine HCL 0.1 MG TABLET 0.05 MG PO ×3 (08:54→20:56)
[2023-08-16] MEDS: Memantine HCl 10 MG TABLET PO ×2 (08:57→21:00)
--- NOTE | 2023-08-16 14:08 | HO.PSYCHPN ---
Subjective Subjective Date of Service: 08/16/23 Reason For Visit: Major depression with psychotic features Subjective Notes: Conditional Voluntary Interim History: Met with patient. Discussed with Nursing. Reports she is doing okay. Reports staff treating her well. Denies depression. Self-care is okay. In bed and preferred to isolate Medication Compliance: Yes Side effects from medications: No Attending Groups: No Review of Systems Review of Systems unremarkable Mental Status Exam Mental Status Exam Narrative: in bed. Self-care okay. Isolative. Denies depression. No SI, HI or psychosis evident. Insight and judgment fair Diagnostics Vital Signs (24Hr): Vital Signs - 24 hr 08/15/23 15:00 08/15/23 18:00 08/16/23 08:51 Temperature 97.6 F 97.2 F Pulse Rate 18 L 97 Respiratory Rate 18 20 Blood Pressure 107/53 L 117/55 L 126/67 Pulse Oximetry 95 95 Oxygen Delivery Method Room Air Room Air BMI result Body Mass Index 25.4 Labs 07/16/23 10:34 07/17/23 08:12 Medications Medications Current Medications Acetaminophen (Acetaminophen 325 Mg Tablet) 650 mg PO Q6H PRN PRN Reason: Headache/Pain Mild Scale (1-3) Last Admin: 08/13/23 18:37 Dose: 650 mg Al Hydroxide/Mg Hydroxide (Magnesium Hydrox/Alum Hydrox 30 Ml Oral.Susp) 30 ml PO Q6H PRN PRN Reason: Heartburn/Nausea Al Hydroxide/Mg Hydroxide (Magnesium Hydrox/Alum Hydrox 30 Ml Oral.Susp) 30 ml PO Q6H PRN PRN Reason: Heartburn/Nausea Cefuroxime Axetil (Cefuroxime Axetil 500 Mg Tablet) 500 mg PO BID [facility] BEDS AT [facility] Stop: 08/18/23 21:01 Last Admin: 08/16/23 08:53 Dose: 500 mg Clonidine HCl (Clonidine Hcl 0.1 Mg Tablet) 0.05 mg PO TID [facility] 234 BEDS [facility]; Protocol Last Admin: 08/16/23 08:54 Dose: 0.05 mg Donepezil HCl (Donepezil Hcl 10 Mg Tablet) 10 mg PO BEDTIME [facility] 234 BEDS AT [facility] Last Admin: 08/15/23 20:32 Dose: 10 mg Folic Acid (Folic Acid 1 Mg Tablet) 1 mg PO DAILY [facility] 234 BEDS AT [facility] Last Admin: 08/16/23 08:53 Dose: 1 mg Ibuprofen (Ibuprofen 200 Mg Tablet) 200 mg PO Q6H PRN PRN Reason: Pain, Moderate(Pain Scale 4-6) Last Admin: 08/15/23 08:28 Dose: 200 mg Lorazepam (Lorazepam 0.5 Mg Tablet) 0.5 mg PO Q8H PRN PRN Reason: anxiety/restlessness Last Admin: 08/15/23 20:32 Dose: 0.5 mg Magnesium Hydroxide (Milk Of Magnesia 30 Ml Oral.Susp) 30 ml PO DAILY PRN PRN Reason: Constipation Magnesium Hydroxide (Milk Of Magnesia 30 Ml Oral.Susp) 30 ml PO DAILY PRN PRN Reason: Constipation Melatonin (Melatonin 3 Mg Tablet) 6 mg PO BEDTIME PRN PRN Reason: Insomnia Last Admin: 08/12/23 23:00 Dose: 6 mg Memantine (Memantine Hcl 10 Mg Tablet) 10 mg PO BID [facility] 234 BEDS AT [facility] Last Admin: 08/16/23 08:57 Dose: 10 mg Propranolol HCl (Propranolol Hcl 10 Mg Tablet) 10 mg PO TID [facility] 234 BEDS AT [facility]; Protocol Last Admin: 08/16/23 08:53 Dose: 10 mg Quetiapine Fumarate (Quetiapine Fumarate 25 Mg Tablet) 25 mg PO BEDTIME MRX1 [facility] 234 BEDS AT [facility] Last Admin: 08/15/23 22:34 Dose: Not Given Tamsulosin HCl (Tamsulosin Hcl 0.4 Mg Capsule) 0.4 mg PO DAILY@1730 [facility] 234 BEDS AT [facility] Last Admin: 08/15/23 16:47 Dose: 0.4 mg Thiamine HCl (Thiamine Hcl 100 Mg Tablet) 100 mg PO BID [facility] 234 BEDS AT [facility] Last Admin: 08/16/23 08:53 Dose: 100 mg Trazodone HCl (Trazodone Hcl 50 Mg Tablet) 50 mg PO BEDTIME MRX1 PRN PRN Reason: Insomnia Last Admin: 08/15/23 20:32 Dose: 50 mg Vortioxetine (Vortioxetine Hydrobromide 20 Mg Tablet) 20 mg PO DAILY [facility]S [facility]CLUDE 234 BEDS AT [facility] Last Admin: 08/16/23 08:53 Dose: 20 mg Allergies Allergies Allergy/AdvReac Type Severity Reaction Status Date / Time risperidone [From Risperdal] Allergy Intermediate UNKNOWN Verified 05/12/23 13:13 Sulfa (Sulfonamide Allergy Intermediate rash Verified 05/12/23 13:13 Antibiotics) From BENADRYL Allergy Intermediate DIZZY Uncoded 02/14/23 11:47 Assessment & Plan Assessment & Plan (1) Major depressive disorder, recurrent severe without psychotic features: Status: Acute Code(s): F33.2 - Major depressive disorder, recurrent severe without psychotic features (2) Spondylosis without myelopathy or radiculopathy, lumbar region: Status: Acute Code(s): M47.816 - Spondylosis without myelopathy or radiculopathy, lumbar region (3) Insomnia: Qualifiers: Insomnia type: unspecified Qualified Code(s): G47.00 - Insomnia, unspecified Status: Acute Code(s): G47.00 - Insomnia, unspecified Plan This patient suffering from spondylosis of lumbar spine and multiple old compression fractures of the lumbar spine. There is tenderness on palpation in the projection of L1-L2 and L3 vertebras. She denies radiation of the pain. Most likely her pain is secondary to spondylosis and facet joint arthropathy. Due to her mental status I do not think that neuromodulation would be a good way of treating this patient's pain, this is why I offered to her therapeutic T12-L1 L2 L3 bilateral medial branch block. It is not clear for me whether the patient can sign her own consent. It is also remains to be seen whether she can tolerate the procedure without sedation. With history of psychotic depression she might not be able to stand still on the operating table without anesthesia assistance. We will schedule this procedure as soon as this issue will be clarified. 08/06/2023 Pain management note reviewed and appreciated. Patient remains depressed demoralized over not returning home does seem to understand situation and why it appears she can not. The patient generally is able to give consent however may need help to consent to above procedure need to clarify healthcare proxy issues 08/07/23 Will need to involve healthcare proxy and decision for surgery cont namena aricept less restlessness with vraylar d/c 08/08/23 CTP 08/09/23 CTP watch bp meds and bp - ? lower dosing 08/10/23 cont [id number] low dose seroquel lower clonidine 08/11/23 Cont beharioral plan of care d/c planning 08/12/2023 STARTED ON CEFTIN BURNING ON URINATION NOTED NO NOTED KIDNEY STONES ON RECENT PLAIN FILMS ENCOURAGE FLUIDS CONTINUE DISCHARGE PLANNING 08/13/2023 Continue discharge plan continue Ceftin 08/16/23 Continue current treatment plan discharge planning Reason for continued inpatient stay Substantial Risk for: inability to function and rapid decompensation Time Spent With Patient Time: Total time managing care of this patient today ____ minutes.
[2023-08-16 15:28] VITALS: BP 113/86
[2023-08-16] MEDS: Tamsulosin HCL 0.4 MG CAPSULE PO (16:45)
[2023-08-16 18:00] VITALS: BP 111/58; PULSE 66; RESP 18; TEMP 36.5; O2SAT 92
[2023-08-16] MEDS: Donepezil HCl 10 MG TABLET PO (20:59)
[2023-08-16] MEDS: traZODone HCL 50 MG TABLET PO (21:00)
[2023-08-16] MEDS: QUEtiapine Fumarate 25 MG TABLET PO ×2 (21:00→23:20)
[2023-08-16] MEDS: Melatonin 3 MG TABLET 6 MG PO (21:01)
[2023-08-16] MEDS: Acetaminophen 325 MG TABLET 650 MG PO (21:01)
[2023-08-16] MEDS: LORazepam 0.5 MG TABLET PO (23:20)
[2023-08-17 08:05] VITALS: BP 100/56; PULSE 70; RESP 16; TEMP 35.9; O2SAT 93
[2023-08-17] MEDS: cefuroxime axetiL 500 MG TABLET PO ×2 (09:00→20:23)
[2023-08-17] MEDS: Folic Acid 1 MG TABLET PO (09:00)
[2023-08-17] MEDS: cloNIDine HCL 0.1 MG TABLET 0.05 MG PO ×3 (09:00→20:24)
[2023-08-17] MEDS: Propranolol HCL 10 MG TABLET PO ×3 (09:00→20:24)
[2023-08-17] MEDS: Memantine HCl 10 MG TABLET PO ×2 (09:00→20:23)
[2023-08-17] MEDS: Thiamine HCL 100 MG TABLET PO ×2 (09:02→20:23)
[2023-08-17] MEDS: Vortioxetine Hydrobromide 20 MG TABLET PO (09:02)
--- NOTE | 2023-08-17 10:14 | HO.PSYCHPN ---
Subjective Subjective Date of Service: 08/17/23 Reason For Visit: Major depression with psychotic features Interim History: Met with patient. Discussed with Nursing. PT Reports not having a good day but vague about why. States she is tired. Reports staff treating her well. Denies depression. Self-care is okay. In bed and states she preferred to isolate Medication Compliance: Yes Side effects from medications: No Attending Groups: Intermittent Review of Systems Acute medical concerns: No Medical Review of Systems: unchanged Review of Systems Review of Systems unremarkable Yes all other systems are reviewed and are negative and Unobtainable due to mental status Musculoskeletal: Reports back pain, Reports atrophy and Denies radiating pain into limb Mental Status Exam Mental Status Exam Narrative: in bed. Self-care okay. Isolative. Denies depression. No SI, HI or psychosis evident. Insight and judgment fair Patient Appearance: Appropriate Patient Orientation: Person and Place Level of Consciousness: Awake Patient Behavior: Dependent and Passive Mood Description: Withdrawn Affect Description: Flat Patient Cognition Impaired: Yes Ability to Follow Directions: Fair Speech Pattern: Clear and Impoverished Memory Description: Episodic Impaired Diagnostics Vital Signs (24Hr): Vital Signs - 24 hr 08/16/23 15:28 08/16/23 18:00 08/17/23 08:05 Temperature 97.7 F 96.6 F L Pulse Rate 66 70 Respiratory Rate 18 16 Blood Pressure 113/86 111/58 L 100/56 L Pulse Oximetry 92 93 Oxygen Delivery Method Room Air Room Air BMI result Body Mass Index 25.4 Labs 07/16/23 10:34 07/17/23 08:12 Medications Medications Current Medications Acetaminophen (Acetaminophen 325 Mg Tablet) 650 mg PO Q6H PRN PRN Reason: Headache/Pain Mild Scale (1-3) Last Admin: 08/16/23 21:01 Dose: 650 mg Al Hydroxide/Mg Hydroxide (Magnesium Hydrox/Alum Hydrox 30 Ml Oral.Susp) 30 ml PO Q6H PRN PRN Reason: Heartburn/Nausea Al Hydroxide/Mg Hydroxide (Magnesium Hydrox/Alum Hydrox 30 Ml Oral.Susp) 30 ml PO Q6H PRN PRN Reason: Heartburn/Nausea Cefuroxime Axetil (Cefuroxime Axetil 500 Mg Tablet) 500 mg PO BID [facility] Stop: 08/18/23 21:01 Last Admin: 08/17/23 09:00 Dose: 500 mg Clonidine HCl (Clonidine Hcl 0.1 Mg Tablet) 0.05 mg PO TID [facility]; Protocol Last Admin: 08/17/23 09:00 Dose: 0.05 mg Donepezil HCl (Donepezil Hcl 10 Mg Tablet) 10 mg PO BEDTIME [facility] Last Admin: 08/16/23 20:59 Dose: 10 mg Folic Acid (Folic Acid 1 Mg Tablet) 1 mg PO DAILY [facility] Last Admin: 08/17/23 09:00 Dose: 1 mg Ibuprofen (Ibuprofen 200 Mg Tablet) 200 mg PO Q6H PRN PRN Reason: Pain, Moderate(Pain Scale 4-6) Last Admin: 08/15/23 08:28 Dose: 200 mg Lorazepam (Lorazepam 0.5 Mg Tablet) 0.5 mg PO Q8H PRN PRN Reason: anxiety/restlessness Last Admin: 08/16/23 23:20 Dose: 0.5 mg Magnesium Hydroxide (Milk Of Magnesia 30 Ml Oral.Susp) 30 ml PO DAILY PRN PRN Reason: Constipation Magnesium Hydroxide (Milk Of Magnesia 30 Ml Oral.Susp) 30 ml PO DAILY PRN PRN Reason: Constipation Melatonin (Melatonin 3 Mg Tablet) 6 mg PO BEDTIME PRN PRN Reason: Insomnia Last Admin: 08/16/23 21:01 Dose: 6 mg Memantine (Memantine Hcl 10 Mg Tablet) 10 mg PO BID [facility] Last Admin: 08/17/23 09:00 Dose: 10 mg Propranolol HCl (Propranolol Hcl 10 Mg Tablet) 10 mg PO TID [facility]; Protocol Last Admin: 08/17/23 09:00 Dose: 10 mg Quetiapine Fumarate (Quetiapine Fumarate 25 Mg Tablet) 25 mg PO BEDTIME MRX1 [facility] Last Admin: 08/16/23 23:26 Dose: Not Given Tamsulosin HCl (Tamsulosin Hcl 0.4 Mg Capsule) 0.4 mg PO DAILY@1730 [facility] Last Admin: 08/16/23 16:45 Dose: 0.4 mg Thiamine HCl (Thiamine Hcl 100 Mg Tablet) 100 mg PO BID [facility] Last Admin: 08/17/23 09:02 Dose: 100 mg Trazodone HCl (Trazodone Hcl 50 Mg Tablet) 50 mg PO BEDTIME MRX1 PRN PRN Reason: Insomnia Last Admin: 08/16/23 21:00 Dose: 50 mg Vortioxetine (Vortioxetine Hydrobromide 20 Mg Tablet) 20 mg PO DAILY [facility] Last Admin: 08/17/23 09:02 Dose: 20 mg Allergies Allergies Allergy/AdvReac Type Severity Reaction Status Date / Time risperidone [From Risperdal] Allergy Intermediate UNKNOWN Verified 05/12/23 13:13 Sulfa (Sulfonamide Allergy Intermediate rash Verified 05/12/23 13:13 Antibiotics) From BENADRYL Allergy Intermediate DIZZY Uncoded 02/14/23 11:47 Assessment & Plan Assessment & Plan (1) Major depressive disorder, recurrent severe without psychotic features: Status: Acute Code(s): F33.2 - Major depressive disorder, recurrent severe without psychotic features (2) Spondylosis without myelopathy or radiculopathy, lumbar region: Status: Acute Code(s): M47.816 - Spondylosis without myelopathy or radiculopathy, lumbar region (3) Insomnia: Qualifiers: Insomnia type: unspecified Qualified Code(s): G47.00 - Insomnia, unspecified Status: Acute Code(s): G47.00 - Insomnia, unspecified Plan This patient suffering from spondylosis of lumbar spine and multiple old compression fractures of the lumbar spine. There is tenderness on palpation in the projection of L1-L2 and L3 vertebras. She denies radiation of the pain. Most likely her pain is secondary to spondylosis and facet joint arthropathy. Due to her mental status I do not think that neuromodulation would be a good way of treating this patient's pain, this is why I offered to her therapeutic T12-L1 L2 L3 bilateral medial branch block. It is not clear for me whether the patient can sign her own consent. It is also remains to be seen whether she can tolerate the procedure without sedation. With history of psychotic depression she might not be able to stand still on the operating table without anesthesia assistance. We will schedule this procedure as soon as this issue will be clarified. 08/06/2023 Pain management note reviewed and appreciated. Patient remains depressed demoralized over not returning home does seem to understand situation and why it appears she can not. The patient generally is able to give consent however may need help to consent to above procedure need to clarify healthcare proxy issues 08/07/23 Will need to involve healthcare proxy and decision for surgery cont namena aricept less restlessness with vraylar d/c 08/08/23 CTP 08/09/23 CTP watch bp meds and bp - ? lower dosing 08/10/23 cont [id number] low dose seroquel lower clonidine 08/11/23 Cont beharioral plan of care d/c planning 08/12/2023 STARTED ON CEFTIN BURNING ON URINATION NOTED NO NOTED KIDNEY STONES ON RECENT PLAIN FILMS ENCOURAGE FLUIDS CONTINUE DISCHARGE PLANNING 08/13/2023 Continue discharge plan continue Ceftin 08/16/23 Continue current treatment plan discharge planning 08/17/23 CONTINUE TX PLAN Patient educated on: medication risk/benefits and therapeutic strategies Informed Consent: further education needed Reason for continued inpatient stay Substantial Risk for: inability to function and rapid decompensation Time Spent With Patient Time: Total time managing care of this patient today ____ minutes.
[2023-08-17 14:27] VITALS: BP 107/60; PULSE 74
[2023-08-17] MEDS: Tamsulosin HCL 0.4 MG CAPSULE PO (16:46)
[2023-08-17 18:00] VITALS: BP 112/57; PULSE 76; RESP 18; TEMP 36.6; O2SAT 96
[2023-08-17] MEDS: Donepezil HCl 10 MG TABLET PO (20:23)
[2023-08-17] MEDS: QUEtiapine Fumarate 25 MG TABLET PO (20:23)
[2023-08-17] MEDS: traZODone HCL 50 MG TABLET PO (21:06)
[2023-08-17] MEDS: LORazepam 0.5 MG TABLET PO (21:06)
[2023-08-17] MEDS: Melatonin 3 MG TABLET 6 MG PO (21:06)
[2023-08-18 08:10] VITALS: BP 115/64; PULSE 76; RESP 18; TEMP 36.4; O2SAT 96
[2023-08-18] MEDS: Propranolol HCL 10 MG TABLET PO ×3 (08:40→20:52)
[2023-08-18] MEDS: cefuroxime axetiL 500 MG TABLET PO ×2 (08:40→20:53)
[2023-08-18] MEDS: Folic Acid 1 MG TABLET PO (08:40)
[2023-08-18] MEDS: Memantine HCl 10 MG TABLET PO ×2 (08:40→20:52)
[2023-08-18] MEDS: cloNIDine HCL 0.1 MG TABLET 0.05 MG PO ×3 (08:41→20:50)
[2023-08-18] MEDS: Thiamine HCL 100 MG TABLET PO ×2 (08:41→20:52)
[2023-08-18] MEDS: Vortioxetine Hydrobromide 20 MG TABLET PO (08:41)
--- NOTE | 2023-08-18 10:09 | P.PNPSI_ITS ---
Subjective Subjective Date of Service: 08/18/23 Reason For Visit: Major depression with psychotic features Interim History: Met with patient. Discussed with Nursing. Pt denies complaints today. Reports staff treating her well. Denies depression. Self-care is okay. slept 8 hours Medication Compliance: Yes Side effects from medications: No Attending Groups: Intermittent Review of Systems Acute medical concerns: No Medical Review of Systems: unchanged Review of Systems Review of Systems unremarkable Yes all other systems are reviewed and are negative and Unobtainable due to mental status Musculoskeletal: Reports back pain, Reports atrophy and Denies radiating pain into limb Mental Status Exam Mental Status Exam Narrative: in bed. Self-care okay. Isolative. Denies depression. No SI, HI or psychosis evident. Insight and judgment fair Patient Appearance: Appropriate Patient Orientation: Person and Place Level of Consciousness: Awake Patient Behavior: Dependent and Passive Mood Description: Withdrawn Affect Description: Flat Patient Cognition Impaired: Yes Ability to Follow Directions: Fair Speech Pattern: Clear and Impoverished Memory Description: Episodic Impaired Thought Process: Intact Thought Content: positive for Intact Judgement: Fair Diagnostics Vital Signs (24Hr): Vital Signs - 24 hr 08/17/23 14:27 08/17/23 18:00 08/18/23 08:10 Temperature 98 F 97.5 F Pulse Rate 74 76 76 Respiratory Rate 18 18 Blood Pressure 107/60 112/57 L 115/64 Pulse Oximetry 96 96 Oxygen Delivery Method Room Air Room Air BMI result Body Mass Index 25.4 Labs 07/16/23 10:34 07/17/23 08:12 Medications Medications Current Medications Acetaminophen (Acetaminophen 325 Mg Tablet) 650 mg PO Q6H PRN PRN Reason: Headache/Pain Mild Scale (1-3) Last Admin: 08/16/23 21:01 Dose: 650 mg Al Hydroxide/Mg Hydroxide (Magnesium Hydrox/Alum Hydrox 30 Ml Oral.Susp) 30 ml PO Q6H PRN PRN Reason: Heartburn/Nausea Al Hydroxide/Mg Hydroxide (Magnesium Hydrox/Alum Hydrox 30 Ml Oral.Susp) 30 ml PO Q6H PRN PRN Reason: Heartburn/Nausea Cefuroxime Axetil (Cefuroxime Axetil 500 Mg Tablet) 500 mg PO BID [facility] Stop: 08/18/23 21:01 Last Admin: 08/18/23 08:40 Dose: 500 mg Clonidine HCl (Clonidine Hcl 0.1 Mg Tablet) 0.05 mg PO TID [facility]; Protocol Last Admin: 08/18/23 08:41 Dose: 0.05 mg Donepezil HCl (Donepezil Hcl 10 Mg Tablet) 10 mg PO BEDTIME [facility] Last Admin: 08/17/23 20:23 Dose: 10 mg Folic Acid (Folic Acid 1 Mg Tablet) 1 mg PO DAILY [facility] Last Admin: 08/18/23 08:40 Dose: 1 mg Ibuprofen (Ibuprofen 200 Mg Tablet) 200 mg PO Q6H PRN PRN Reason: Pain, Moderate(Pain Scale 4-6) Last Admin: 08/15/23 08:28 Dose: 200 mg Lorazepam (Lorazepam 0.5 Mg Tablet) 0.5 mg PO Q8H PRN PRN Reason: anxiety/restlessness Last Admin: 08/17/23 21:06 Dose: 0.5 mg Magnesium Hydroxide (Milk Of Magnesia 30 Ml Oral.Susp) 30 ml PO DAILY PRN PRN Reason: Constipation Magnesium Hydroxide (Milk Of Magnesia 30 Ml Oral.Susp) 30 ml PO DAILY PRN PRN Reason: Constipation Melatonin (Melatonin 3 Mg Tablet) 6 mg PO BEDTIME PRN PRN Reason: Insomnia Last Admin: 08/17/23 21:06 Dose: 6 mg Memantine (Memantine Hcl 10 Mg Tablet) 10 mg PO BID [facility] Last Admin: 08/18/23 08:40 Dose: 10 mg Propranolol HCl (Propranolol Hcl 10 Mg Tablet) 10 mg PO TID [facility]; Protocol Last Admin: 08/18/23 08:40 Dose: 10 mg Quetiapine Fumarate (Quetiapine Fumarate 25 Mg Tablet) 25 mg PO BEDTIME MRX1 [facility] Last Admin: 08/17/23 23:09 Dose: Not Given Tamsulosin HCl (Tamsulosin Hcl 0.4 Mg Capsule) 0.4 mg PO DAILY@1730 [facility] Last Admin: 08/17/23 16:46 Dose: 0.4 mg Thiamine HCl (Thiamine Hcl 100 Mg Tablet) 100 mg PO BID [facility] Last Admin: 08/18/23 08:41 Dose: 100 mg Trazodone HCl (Trazodone Hcl 50 Mg Tablet) 50 mg PO BEDTIME MRX1 PRN PRN Reason: Insomnia Last Admin: 08/17/23 21:06 Dose: 50 mg Vortioxetine (Vortioxetine Hydrobromide 20 Mg Tablet) 20 mg PO DAILY [facility] Last Admin: 08/18/23 08:41 Dose: 20 mg Allergies Allergies Allergy/AdvReac Type Severity Reaction Status Date / Time risperidone [From Risperdal] Allergy Intermediate UNKNOWN Verified 05/12/23 13:13 Sulfa (Sulfonamide Allergy Intermediate rash Verified 05/12/23 13:13 Antibiotics) From BENADRYL Allergy Intermediate DIZZY Uncoded 02/14/23 11:47 Assessment & Plan Assessment & Plan (1) Major depressive disorder, recurrent severe without psychotic features: Status: Acute Code(s): F33.2 - Major depressive disorder, recurrent severe without psychotic features (2) Spondylosis without myelopathy or radiculopathy, lumbar region: Status: Acute Code(s): M47.816 - Spondylosis without myelopathy or radiculopathy, lumbar region (3) Insomnia: Qualifiers: Insomnia type: unspecified Qualified Code(s): G47.00 - Insomnia, unspecified Status: Acute Code(s): G47.00 - Insomnia, unspecified Plan This patient suffering from spondylosis of lumbar spine and multiple old compression fractures of the lumbar spine. There is tenderness on palpation in the projection of L1-L2 and L3 vertebras. She denies radiation of the pain. Most likely her pain is secondary to spondylosis and facet joint arthropathy. Due to her mental status I do not think that neuromodulation would be a good way of treating this patient's pain, this is why I offered to her therapeutic T12-L1 L2 L3 bilateral medial branch block. It is not clear for me whether the patient can sign her own consent. It is also remains to be seen whether she can tolerate the procedure without sedation. With history of psychotic depression she might not be able to stand still on the operating table without anesthesia assistance. We will schedule this procedure as soon as this issue will be clarified. 08/06/2023 Pain management note reviewed and appreciated. Patient remains depressed demoralized over not returning home does seem to understand situation and why it appears she can not. The patient generally is able to give consent however may need help to consent to above procedure need to clarify healthcare proxy issues 08/07/23 Will need to involve healthcare proxy and decision for surgery cont namena aricept less restlessness with vraylar d/c 08/08/23 CTP 08/09/23 CTP watch bp meds and bp - ? lower dosing 08/10/23 cont [id number] low dose seroquel lower clonidine 08/11/23 Cont beharioral plan of care d/c planning 08/12/2023 STARTED ON CEFTIN BURNING ON URINATION NOTED NO NOTED KIDNEY STONES ON RECENT PLAIN FILMS ENCOURAGE FLUIDS CONTINUE DISCHARGE PLANNING 08/13/2023 Continue discharge plan continue Ceftin 08/16/23 Continue current treatment plan discharge planning 08/17/23 CONTINUE TX PLAN 08/18/23 no changes continue treatment plan Reason for continued inpatient stay Substantial Risk for: inability to function and rapid decompensation Time Spent With Patient Time: Total time managing care of this patient today ____ minutes.
[2023-08-18 14:20] VITALS: BP 118/63; PULSE 71
[2023-08-18] MEDS: Tamsulosin HCL 0.4 MG CAPSULE PO (16:27)
[2023-08-18 18:00] VITALS: BP 116/57; PULSE 65; RESP 16; TEMP 36.2; O2SAT 96
[2023-08-18] MEDS: Donepezil HCl 10 MG TABLET PO (20:51)
[2023-08-18] MEDS: LORazepam 0.5 MG TABLET PO (20:52)
[2023-08-18] MEDS: QUEtiapine Fumarate 25 MG TABLET PO (20:53)
[2023-08-18 22:55] VITALS: O2SAT 91
[2023-08-18 23:16] VITALS: O2SAT 96
[2023-08-19 07:52] VITALS: BP 116/60; PULSE 76; RESP 16; TEMP 35.9; O2SAT 94
[2023-08-19] MEDS: Thiamine HCL 100 MG TABLET PO ×2 (08:57→20:56)
[2023-08-19] MEDS: cloNIDine HCL 0.1 MG TABLET 0.05 MG PO ×3 (08:57→20:56)
[2023-08-19] MEDS: Folic Acid 1 MG TABLET PO (08:57)
[2023-08-19] MEDS: Memantine HCl 10 MG TABLET PO ×2 (08:57→20:55)
[2023-08-19] MEDS: Propranolol HCL 10 MG TABLET PO ×3 (08:57→20:55)
[2023-08-19] MEDS: Vortioxetine Hydrobromide 20 MG TABLET PO (08:57)
--- NOTE | 2023-08-19 10:45 | P.PNPSI_ITS ---
Subjective Subjective Date of Service: 08/19/23 Reason For Visit: Major depression with psychotic features Subjective Notes: Conditional Voluntary Healthcare Proxy: Yes Interim History: Patient seen psychiatric follow-up. The patient's mood is flat somewhat apathetic does brighten up on approach no gross psychotic process she is visited regularly by her Medication Compliance: Yes Mental Status Exam Mental Status Exam Narrative: in bed. Self-care okay. Isolative. Denies depression. No SI, HI or psychosis evident. Insight and judgment fair Patient Appearance: Appropriate Patient Orientation: Person and Place Level of Consciousness: Awake Patient Behavior: Dependent and Passive Mood Description: Withdrawn Affect Description: Flat Patient Cognition Impaired: Yes Ability to Follow Directions: Fair Speech Pattern: Clear and Impoverished Memory Description: Episodic Impaired Thought Process: Intact Thought Content: positive for Intact Judgement: Fair Diagnostics Vital Signs (24Hr): Vital Signs - 24 hr 08/18/23 14:20 08/18/23 18:00 08/18/23 22:55 Temperature 97.1 F Pulse Rate 71 65 Respiratory Rate 16 Blood Pressure 118/63 116/57 L Pulse Oximetry 96 91 L Oxygen Delivery Method Room Air Room Air Oxygen Flow Rate 08/18/23 23:16 08/19/23 07:52 Temperature 96.7 F L Pulse Rate 76 Respiratory Rate 16 Blood Pressure 116/60 Pulse Oximetry 96 94 Oxygen Delivery Method Nasal Cannula Room Air Oxygen Flow Rate 2 BMI result Body Mass Index 25.4 Labs 07/16/23 10:34 07/17/23 08:12 Medications Medications Current Medications Acetaminophen (Acetaminophen 325 Mg Tablet) 650 mg PO Q6H PRN PRN Reason: Headache/Pain Mild Scale (1-3) Last Admin: 08/16/23 21:01 Dose: 650 mg Al Hydroxide/Mg Hydroxide (Magnesium Hydrox/Alum Hydrox 30 Ml Oral.Susp) 30 ml PO Q6H PRN PRN Reason: Heartburn/Nausea Al Hydroxide/Mg Hydroxide (Magnesium Hydrox/Alum Hydrox 30 Ml Oral.Susp) 30 ml PO Q6H PRN PRN Reason: Heartburn/Nausea Clonidine HCl (Clonidine Hcl 0.1 Mg Tablet) 0.05 mg PO TID [facility]; Protocol Last Admin: 08/19/23 08:57 Dose: 0.05 mg Donepezil HCl (Donepezil Hcl 10 Mg Tablet) 10 mg PO BEDTIME [facility] Last Admin: 08/18/23 20:51 Dose: 10 mg Folic Acid (Folic Acid 1 Mg Tablet) 1 mg PO DAILY [facility] Last Admin: 08/19/23 08:57 Dose: 1 mg Ibuprofen (Ibuprofen 200 Mg Tablet) 200 mg PO Q6H PRN PRN Reason: Pain, Moderate(Pain Scale 4-6) Last Admin: 08/15/23 08:28 Dose: 200 mg Lorazepam (Lorazepam 0.5 Mg Tablet) 0.5 mg PO Q8H PRN PRN Reason: anxiety/restlessness Last Admin: 08/18/23 20:52 Dose: 0.5 mg Magnesium Hydroxide (Milk Of Magnesia 30 Ml Oral.Susp) 30 ml PO DAILY PRN PRN Reason: Constipation Magnesium Hydroxide (Milk Of Magnesia 30 Ml Oral.Susp) 30 ml PO DAILY PRN PRN Reason: Constipation Melatonin (Melatonin 3 Mg Tablet) 6 mg PO BEDTIME PRN PRN Reason: Insomnia Last Admin: 08/17/23 21:06 Dose: 6 mg Memantine (Memantine Hcl 10 Mg Tablet) 10 mg PO BID [facility] Last Admin: 08/19/23 08:57 Dose: 10 mg Propranolol HCl (Propranolol Hcl 10 Mg Tablet) 10 mg PO TID [facility]; Protocol Last Admin: 08/19/23 08:57 Dose: 10 mg Quetiapine Fumarate (Quetiapine Fumarate 25 Mg Tablet) 25 mg PO BEDTIME MRX1 [facility] Last Admin: 08/18/23 22:41 Dose: Not Given Tamsulosin HCl (Tamsulosin Hcl 0.4 Mg Capsule) 0.4 mg PO DAILY@1730 [facility] Last Admin: 08/18/23 16:27 Dose: 0.4 mg Thiamine HCl (Thiamine Hcl 100 Mg Tablet) 100 mg PO BID [facility] Last Admin: 08/19/23 08:57 Dose: 100 mg Trazodone HCl (Trazodone Hcl 50 Mg Tablet) 50 mg PO BEDTIME MRX1 PRN PRN Reason: Insomnia Last Admin: 08/17/23 21:06 Dose: 50 mg Vortioxetine (Vortioxetine Hydrobromide 20 Mg Tablet) 20 mg PO DAILY [facility] Last Admin: 08/19/23 08:57 Dose: 20 mg Allergies Allergies Allergy/AdvReac Type Severity Reaction Status Date / Time risperidone [From Risperdal] Allergy Intermediate UNKNOWN Verified 05/12/23 13:13 Sulfa (Sulfonamide Allergy Intermediate rash Verified 05/12/23 13:13 Antibiotics) From BENADRYL Allergy Intermediate DIZZY Uncoded 02/14/23 11:47 Assessment & Plan Assessment & Plan (1) Major depressive disorder, recurrent severe without psychotic features: Status: Acute Code(s): F33.2 - Major depressive disorder, recurrent severe without psychotic features (2) Spondylosis without myelopathy or radiculopathy, lumbar region: Status: Acute Code(s): M47.816 - Spondylosis without myelopathy or radiculopathy, lumbar region (3) Insomnia: Qualifiers: Insomnia type: unspecified Qualified Code(s): G47.00 - Insomnia, unspecified Status: Acute Code(s): G47.00 - Insomnia, unspecified Plan This patient suffering from spondylosis of lumbar spine and multiple old compression fractures of the lumbar spine. There is tenderness on palpation in the projection of L1-L2 and L3 vertebras. She denies radiation of the pain. Most likely her pain is secondary to spondylosis and facet joint arthropathy. Due to her mental status I do not think that neuromodulation would be a good way of treating this patient's pain, this is why I offered to her therapeutic T12-L1 L2 L3 bilateral medial branch block. It is not clear for me whether the patient can sign her own consent. It is also remains to be seen whether she can tolerate the procedure without sedation. With history of psychotic depression she might not be able to stand still on the operating table without anesthesia assistance. We will schedule this procedure as soon as this issue will be clarified. 08/06/2023 Pain management note reviewed and appreciated. Patient remains depressed demoralized over not returning home does seem to understand situation and why it appears she can not. The patient generally is able to give consent however may need help to consent to above procedure need to clarify healthcare proxy issues 08/07/23 Will need to involve healthcare proxy and decision for surgery cont namena aricept less restlessness with vraylar d/c 08/08/23 CTP 08/09/23 CTP watch bp meds and bp - ? lower dosing 08/10/23 cont [id number] low dose seroquel lower clonidine 08/11/23 Cont beharioral plan of care d/c planning 08/12/2023 STARTED ON CEFTIN BURNING ON URINATION NOTED NO NOTED KIDNEY STONES ON RECENT PLAIN FILMS ENCOURAGE FLUIDS CONTINUE DISCHARGE PLANNING 08/13/2023 Continue discharge plan continue Ceftin 08/16/23 Continue current treatment plan discharge planning 08/17/23 CONTINUE TX PLAN 08/18/23 no changes continue treatment plan 08/19/2023 Continue plan of care discharge planning consider ECT patient had previously been on L methyl folate consider citocholine Reason for continued inpatient stay Substantial Risk for: inability to function, rapid decompensation and med/psych decompensation Time Spent With Patient Time: Total time managing care of this patient today ____ minutes.
--- NOTE | 2023-08-19 14:10 | MHC.CLN ---
F/U DIET=REGULAR. MAGIC CUP BID TO INCREASE NUTRITIONAL INTAKE. PROVIDES 580 KCALS, 18 G PROTEIN. INTAKE CONTINUES VARIABLE, WITH MANY MEALS 75-100%. WEIGHT OVERALL STABLE X ONE MONTH. FOLLOW FOR INTAKE AND WEIGHT. RD TO FOLLOW WEEKLY.
[2023-08-19 15:14] VITALS: BP 128/75; PULSE 77
[2023-08-19] MEDS: Tamsulosin HCL 0.4 MG CAPSULE PO (16:43)
[2023-08-19 18:00] VITALS: BP 129/78; PULSE 73; RESP 16; TEMP 36.1; O2SAT 94
[2023-08-19] MEDS: Donepezil HCl 10 MG TABLET PO (20:55)
[2023-08-19] MEDS: Melatonin 3 MG TABLET 6 MG PO (20:55)
[2023-08-19] MEDS: QUEtiapine Fumarate 25 MG TABLET PO (20:56)
[2023-08-19] MEDS: LORazepam 0.5 MG TABLET PO (20:56)
[2023-08-20 07:00] VITALS: BMI 25.2
[2023-08-20 08:05] VITALS: BP 111/70; PULSE 100; RESP 16; TEMP 36.6; O2SAT 95
[2023-08-20] MEDS: Folic Acid 1 MG TABLET PO (08:21)
[2023-08-20] MEDS: Thiamine HCL 100 MG TABLET PO ×2 (08:21→21:12)
[2023-08-20] MEDS: Propranolol HCL 10 MG TABLET PO ×3 (08:21→21:12)
[2023-08-20] MEDS: Memantine HCl 10 MG TABLET PO ×2 (08:21→21:10)
[2023-08-20] MEDS: cloNIDine HCL 0.1 MG TABLET 0.05 MG PO ×3 (08:21→21:11)
[2023-08-20] MEDS: Vortioxetine Hydrobromide 20 MG TABLET PO (08:22)
[2023-08-20 14:12] VITALS: BP 110/56; PULSE 72
--- NOTE | 2023-08-20 14:22 | PC.NURSE ---
BP 110/56, HR 72, Judy is asymptomatic. Paged Dr. Willett and asked if he would like me to hold 1500 Clonidine 0.05mg and/or Propranolol 10mg, per Dr. Willett administer medications as ordered.
[2023-08-20] MEDS: Tamsulosin HCL 0.4 MG CAPSULE PO (16:58)
[2023-08-20] MEDS: Ibuprofen 200 MG TABLET PO (17:57)
[2023-08-20] MEDS: LORazepam 0.5 MG TABLET PO (17:57)
[2023-08-20 18:00] VITALS: BP 105/59; PULSE 73; RESP 18; TEMP 36.8; O2SAT 94
[2023-08-20] MEDS: traZODone HCL 50 MG TABLET PO (21:10)
[2023-08-20] MEDS: QUEtiapine Fumarate 25 MG TABLET PO (21:10)
[2023-08-20] MEDS: Melatonin 3 MG TABLET 6 MG PO (21:10)
[2023-08-20] MEDS: Donepezil HCl 10 MG TABLET PO (21:11)
--- NOTE | 2023-08-20 21:51 | P.PNPSI_ITS ---
Subjective Subjective Date of Service: 08/20/23 Reason For Visit: Major depression with psychotic features Subjective Notes: Conditional Voluntary Interim History: Patient has been flat does enjoy visits with her . He is having some thoughts about whether or not the patient could possibly be managed at home but ambivalent around this and his children does not supported. Patient has flat she does brighten up at times often isolated not very social Mental Status Exam Mental Status Exam Patient Appearance: Appropriate Patient Orientation: Person and Place Level of Consciousness: Awake Patient Behavior: Dependent and Passive Mood Description: Withdrawn Affect Description: Flat Patient Cognition Impaired: Yes Ability to Follow Directions: Fair Speech Pattern: Clear and Impoverished Memory Description: Episodic Impaired Thought Process: Intact Thought Content: positive for Intact Judgement: Fair Diagnostics Vital Signs (24Hr): Vital Signs - 24 hr 08/20/23 08:05 08/20/23 14:12 Temperature 97.9 F Pulse Rate 100 72 Respiratory Rate 16 Blood Pressure 111/70 110/56 L Pulse Oximetry 95 Oxygen Delivery Method Room Air BMI result Body Mass Index 25.2 Labs 07/16/23 10:34 07/17/23 08:12 Medications Medications Current Medications Acetaminophen (Acetaminophen 325 Mg Tablet) 650 mg PO Q6H PRN PRN Reason: Headache/Pain Mild Scale (1-3) Last Admin: 08/16/23 21:01 Dose: 650 mg Al Hydroxide/Mg Hydroxide (Magnesium Hydrox/Alum Hydrox 30 Ml Oral.Susp) 30 ml PO Q6H PRN PRN Reason: Heartburn/Nausea Al Hydroxide/Mg Hydroxide (Magnesium Hydrox/Alum Hydrox 30 Ml Oral.Susp) 30 ml PO Q6H PRN PRN Reason: Heartburn/Nausea Clonidine HCl (Clonidine Hcl 0.1 Mg Tablet) 0.05 mg PO TID [facility]; Protocol Last Admin: 08/20/23 21:11 Dose: 0.05 mg Donepezil HCl (Donepezil Hcl 10 Mg Tablet) 10 mg PO BEDTIME [facility] Last Admin: 08/20/23 21:11 Dose: 10 mg Folic Acid (Folic Acid 1 Mg Tablet) 1 mg PO DAILY [facility] Last Admin: 08/20/23 08:21 Dose: 1 mg Ibuprofen (Ibuprofen 200 Mg Tablet) 200 mg PO Q6H PRN PRN Reason: Pain, Moderate(Pain Scale 4-6) Last Admin: 08/20/23 17:57 Dose: 200 mg Lorazepam (Lorazepam 0.5 Mg Tablet) 0.5 mg PO Q8H PRN PRN Reason: anxiety/restlessness Last Admin: 08/20/23 17:57 Dose: 0.5 mg Magnesium Hydroxide (Milk Of Magnesia 30 Ml Oral.Susp) 30 ml PO DAILY PRN PRN Reason: Constipation Magnesium Hydroxide (Milk Of Magnesia 30 Ml Oral.Susp) 30 ml PO DAILY PRN PRN Reason: Constipation Melatonin (Melatonin 3 Mg Tablet) 6 mg PO BEDTIME PRN PRN Reason: Insomnia Last Admin: 08/20/23 21:10 Dose: 6 mg Memantine (Memantine Hcl 10 Mg Tablet) 10 mg PO BID [facility] Last Admin: 08/20/23 21:10 Dose: 10 mg Propranolol HCl (Propranolol Hcl 10 Mg Tablet) 10 mg PO TID [facility]; Protocol Last Admin: 08/20/23 21:12 Dose: 10 mg Quetiapine Fumarate (Quetiapine Fumarate 25 Mg Tablet) 25 mg PO BEDTIME MRX1 [facility] Last Admin: 08/20/23 21:14 Dose: Not Given Tamsulosin HCl (Tamsulosin Hcl 0.4 Mg Capsule) 0.4 mg PO DAILY@1730 [facility] Last Admin: 08/20/23 16:58 Dose: 0.4 mg Thiamine HCl (Thiamine Hcl 100 Mg Tablet) 100 mg PO BID [facility] Last Admin: 08/20/23 21:12 Dose: 100 mg Trazodone HCl (Trazodone Hcl 50 Mg Tablet) 50 mg PO BEDTIME MRX1 PRN PRN Reason: Insomnia Last Admin: 08/20/23 21:10 Dose: 50 mg Vortioxetine (Vortioxetine Hydrobromide 20 Mg Tablet) 20 mg PO DAILY [facility] Last Admin: 08/20/23 08:22 Dose: 20 mg Allergies Allergies Allergy/AdvReac Type Severity Reaction Status Date / Time risperidone [From Risperdal] Allergy Intermediate UNKNOWN Verified 05/12/23 13:13 Sulfa (Sulfonamide Allergy Intermediate rash Verified 05/12/23 13:13 Antibiotics) From BENADRYL Allergy Intermediate DIZZY Uncoded 02/14/23 11:47 Assessment & Plan Assessment & Plan (1) Major depressive disorder, recurrent severe without psychotic features: Status: Acute Code(s): F33.2 - Major depressive disorder, recurrent severe without psychotic features (2) Spondylosis without myelopathy or radiculopathy, lumbar region: Status: Acute Code(s): M47.816 - Spondylosis without myelopathy or radiculopathy, lumbar region (3) Insomnia: Qualifiers: Insomnia type: unspecified Qualified Code(s): G47.00 - Insomnia, unspecified Status: Acute Code(s): G47.00 - Insomnia, unspecified Plan This patient suffering from spondylosis of lumbar spine and multiple old compression fractures of the lumbar spine. There is tenderness on palpation in the projection of L1-L2 and L3 vertebras. She denies radiation of the pain. Most likely her pain is secondary to spondylosis and facet joint arthropathy. Due to her mental status I do not think that neuromodulation would be a good way of treating this patient's pain, this is why I offered to her therapeutic T12-L1 L2 L3 bilateral medial branch block. It is not clear for me whether the patient can sign her own consent. It is also remains to be seen whether she can tolerate the procedure without sedation. With history of psychotic depression she might not be able to stand still on the operating table without anesthesia assistance. We will schedule this procedure as soon as this issue will be clarified. 08/06/2023 Pain management note reviewed and appreciated. Patient remains depressed demoralized over not returning home does seem to understand situation and why it appears she can not. The patient generally is able to give consent however may need help to consent to above procedure need to clarify healthcare proxy issues 08/07/23 Will need to involve healthcare proxy and decision for surgery cont namena aricept less restlessness with vraylar d/c 08/08/23 CTP 08/09/23 CTP watch bp meds and bp - ? lower dosing 08/10/23 cont [id number] low dose seroquel lower clonidine 08/11/23 Cont beharioral plan of care d/c planning 08/12/2023 STARTED ON CEFTIN BURNING ON URINATION NOTED NO NOTED KIDNEY STONES ON RECENT PLAIN FILMS ENCOURAGE FLUIDS CONTINUE DISCHARGE PLANNING 08/13/2023 Continue discharge plan continue Ceftin 08/16/23 Continue current treatment plan discharge planning 08/17/23 CONTINUE TX PLAN 08/18/23 no changes continue treatment plan 08/19/2023 Continue plan of care discharge planning consider ECT patient had previously been on L methyl folate consider citocholine 08/20/2019 Continue plan of care discussed pain management options Reason for continued inpatient stay Substantial Risk for: inability to function, rapid decompensation and med/psych decompensation Time Spent With Patient Time: Total time managing care of this patient today ____ minutes.
[2023-08-21 09:55] VITALS: BP 95/52; PULSE 78; RESP 20; TEMP 36.6; O2SAT 96
[2023-08-21] MEDS: Vortioxetine Hydrobromide 20 MG TABLET PO (09:56)
[2023-08-21] MEDS: Folic Acid 1 MG TABLET PO (09:56)
[2023-08-21] MEDS: Thiamine HCL 100 MG TABLET PO ×2 (09:56→20:59)
[2023-08-21] MEDS: Memantine HCl 10 MG TABLET PO ×2 (09:57→20:59)
[2023-08-21 16:01] VITALS: BP 131/81
[2023-08-21] MEDS: cloNIDine HCL 0.1 MG TABLET 0.05 MG PO ×2 (16:02→20:58)
[2023-08-21] MEDS: Tamsulosin HCL 0.4 MG CAPSULE PO (16:03)
[2023-08-21] MEDS: Propranolol HCL 10 MG TABLET PO ×2 (16:03→20:59)
--- NOTE | 2023-08-21 17:05 | HO.PSYCHPN ---
Subjective Subjective Date of Service: 08/21/23 Reason For Visit: Major depression with psychotic features Subjective Notes: Conditional Voluntary Interim History: Patient seen psychiatric follow-up mood depressed somewhat flat cooperative Mental Status Exam Mental Status Exam Patient Appearance: Appropriate Patient Orientation: Person and Place Level of Consciousness: Awake Patient Behavior: Dependent and Passive Mood Description: Withdrawn Affect Description: Flat Patient Cognition Impaired: Yes Ability to Follow Directions: Fair Speech Pattern: Clear and Impoverished Memory Description: Episodic Impaired Thought Process: Intact Thought Content: positive for Intact Judgement: Fair Diagnostics Vital Signs (24Hr): Vital Signs - 24 hr 08/20/23 18:00 08/21/23 09:55 08/21/23 16:01 Temperature 98.3 F 98 F Pulse Rate 73 78 Respiratory Rate 18 20 Blood Pressure 105/59 L 95/52 L 131/81 Pulse Oximetry 94 96 Oxygen Delivery Method Room Air Room Air BMI result Body Mass Index 25.2 Labs 07/16/23 10:34 07/17/23 08:12 Medications Medications Current Medications Acetaminophen (Acetaminophen 325 Mg Tablet) 650 mg PO Q6H PRN PRN Reason: Headache/Pain Mild Scale (1-3) Last Admin: 08/16/23 21:01 Dose: 650 mg Al Hydroxide/Mg Hydroxide (Magnesium Hydrox/Alum Hydrox 30 Ml Oral.Susp) 30 ml PO Q6H PRN PRN Reason: Heartburn/Nausea Al Hydroxide/Mg Hydroxide (Magnesium Hydrox/Alum Hydrox 30 Ml Oral.Susp) 30 ml PO Q6H PRN PRN Reason: Heartburn/Nausea Clonidine HCl (Clonidine Hcl 0.1 Mg Tablet) 0.05 mg PO TID REPLACED BY [facility]; Protocol Last Admin: 08/21/23 16:02 Dose: 0.05 mg Donepezil HCl (Donepezil Hcl 10 Mg Tablet) 10 mg PO BEDTIME REPLACED BY [facility] Last Admin: 08/20/23 21:11 Dose: 10 mg Folic Acid (Folic Acid 1 Mg Tablet) 1 mg PO DAILY REPLACED BY [facility] Last Admin: 08/21/23 09:56 Dose: 1 mg Ibuprofen (Ibuprofen 200 Mg Tablet) 200 mg PO Q6H PRN PRN Reason: Pain, Moderate(Pain Scale 4-6) Last Admin: 08/20/23 17:57 Dose: 200 mg Lorazepam (Lorazepam 0.5 Mg Tablet) 0.5 mg PO Q8H PRN PRN Reason: anxiety/restlessness Last Admin: 08/20/23 17:57 Dose: 0.5 mg Magnesium Hydroxide (Milk Of Magnesia 30 Ml Oral.Susp) 30 ml PO DAILY PRN PRN Reason: Constipation Magnesium Hydroxide (Milk Of Magnesia 30 Ml Oral.Susp) 30 ml PO DAILY PRN PRN Reason: Constipation Melatonin (Melatonin 3 Mg Tablet) 6 mg PO BEDTIME PRN PRN Reason: Insomnia Last Admin: 08/20/23 21:10 Dose: 6 mg Memantine (Memantine Hcl 10 Mg Tablet) 10 mg PO BID REPLACED BY [facility] Last Admin: 08/21/23 09:57 Dose: 10 mg Propranolol HCl (Propranolol Hcl 10 Mg Tablet) 10 mg PO TID REPLACED BY [facility]; Protocol Last Admin: 08/21/23 16:03 Dose: 10 mg Quetiapine Fumarate (Quetiapine Fumarate 25 Mg Tablet) 25 mg PO BEDTIME MRX1 REPLACED BY [facility] Last Admin: 08/20/23 21:14 Dose: Not Given Tamsulosin HCl (Tamsulosin Hcl 0.4 Mg Capsule) 0.4 mg PO DAILY@1730 REPLACED BY [facility] Last Admin: 08/21/23 16:03 Dose: 0.4 mg Thiamine HCl (Thiamine Hcl 100 Mg Tablet) 100 mg PO BID REPLACED BY [facility] Last Admin: 08/21/23 09:56 Dose: 100 mg Trazodone HCl (Trazodone Hcl 50 Mg Tablet) 50 mg PO BEDTIME MRX1 PRN PRN Reason: Insomnia Last Admin: 08/20/23 21:10 Dose: 50 mg Vortioxetine (Vortioxetine Hydrobromide 20 Mg Tablet) 20 mg PO DAILY REPLACED BY [facility] Last Admin: 08/21/23 09:56 Dose: 20 mg Allergies Allergies Allergy/AdvReac Type Severity Reaction Status Date / Time risperidone [From Risperdal] Allergy Intermediate UNKNOWN Verified 05/12/23 13:13 Sulfa (Sulfonamide Allergy Intermediate rash Verified 05/12/23 13:13 Antibiotics) From BENADRYL Allergy Intermediate DIZZY Uncoded 02/14/23 11:47 Assessment & Plan Assessment & Plan (1) Major depressive disorder, recurrent severe without psychotic features: Status: Acute Code(s): F33.2 - Major depressive disorder, recurrent severe without psychotic features (2) Spondylosis without myelopathy or radiculopathy, lumbar region: Status: Acute Code(s): M47.816 - Spondylosis without myelopathy or radiculopathy, lumbar region (3) Insomnia: Qualifiers: Insomnia type: unspecified Qualified Code(s): G47.00 - Insomnia, unspecified Status: Acute Code(s): G47.00 - Insomnia, unspecified Plan This patient suffering from spondylosis of lumbar spine and multiple old compression fractures of the lumbar spine. There is tenderness on palpation in the projection of L1-L2 and L3 vertebras. She denies radiation of the pain. Most likely her pain is secondary to spondylosis and facet joint arthropathy. Due to her mental status I do not think that neuromodulation would be a good way of treating this patient's pain, this is why I offered to her therapeutic T12-L1 L2 L3 bilateral medial branch block. It is not clear for me whether the patient can sign her own consent. It is also remains to be seen whether she can tolerate the procedure without sedation. With history of psychotic depression she might not be able to stand still on the operating table without anesthesia assistance. We will schedule this procedure as soon as this issue will be clarified. 08/06/2023 Pain management note reviewed and appreciated. Patient remains depressed demoralized over not returning home does seem to understand situation and why it appears she can not. The patient generally is able to give consent however may need help to consent to above procedure need to clarify healthcare proxy issues 08/07/23 Will need to involve healthcare proxy and decision for surgery cont namena aricept less restlessness with vraylar d/c 08/08/23 CTP 08/09/23 CTP watch bp meds and bp - ? lower dosing 08/10/23 cont [id number] low dose seroquel lower clonidine 08/11/23 Cont beharioral plan of care d/c planning 08/12/2023 STARTED ON CEFTIN BURNING ON URINATION NOTED NO NOTED KIDNEY STONES ON RECENT PLAIN FILMS ENCOURAGE FLUIDS CONTINUE DISCHARGE PLANNING 08/13/2023 Continue discharge plan continue Ceftin 08/16/23 Continue current treatment plan discharge planning 08/17/23 CONTINUE TX PLAN 08/18/23 no changes continue treatment plan 08/19/2023 Continue plan of care discharge planning consider ECT patient had previously been on L methyl folate consider citocholine 08/20/2019 Continue plan of care discussed pain management options 08/21/2023 Continue plan of care also spoke with patient's Reason for continued inpatient stay Substantial Risk for: rapid decompensation and med/psych decompensation Time Spent With Patient Time: Total time managing care of this patient today ____ minutes.
[2023-08-21 18:00] VITALS: BP 122/63; PULSE 71; RESP 16; TEMP 36.6; O2SAT 92
[2023-08-21] MEDS: traZODone HCL 50 MG TABLET PO (20:58)
[2023-08-21] MEDS: QUEtiapine Fumarate 25 MG TABLET PO ×2 (20:59→22:13)
[2023-08-21] MEDS: Donepezil HCl 10 MG TABLET PO (20:59)
[2023-08-22 08:10] VITALS: BP 112/59; PULSE 67; RESP 20; TEMP 35.8; O2SAT 94
[2023-08-22] MEDS: cloNIDine HCL 0.1 MG TABLET 0.05 MG PO ×3 (08:43→20:35)
[2023-08-22] MEDS: Memantine HCl 10 MG TABLET PO ×2 (08:43→20:36)
[2023-08-22] MEDS: Vortioxetine Hydrobromide 20 MG TABLET PO (08:45)
[2023-08-22] MEDS: Thiamine HCL 100 MG TABLET PO ×2 (08:45→20:35)
[2023-08-22] MEDS: Propranolol HCL 10 MG TABLET PO ×3 (08:45→20:36)
[2023-08-22] MEDS: Folic Acid 1 MG TABLET PO (08:45)
--- NOTE | 2023-08-22 11:26 | P.PNPSI_ITS ---
Subjective Subjective Date of Service: 08/22/23 Reason For Visit: Major depression with psychotic features Subjective Notes: Conditional Voluntary Interim History: Patient was seen and discussed in rounds today. Records and plans were reviewed. She continues to be mostly isolative, in her room, complaining of back pain. Eating and sleeping mostly adequately. No other complaints. No changes were made today Review of Systems Review of Systems unremarkable Yes all other systems are reviewed and are negative and Unobtainable due to mental status Musculoskeletal: Reports back pain, Reports atrophy and Denies radiating pain into limb Mental Status Exam Mental Status Exam Narrative: In today's visit she is alert, pleasant and interactive within her means. Soft- spoken speech. Moderate eye contact. Affect is constricted and flat. No signs of psychosis. No dangerous behaviors. No SI. Cognitively has slow thought processes. Judgment is fair. Diagnostics Vital Signs (24Hr): Vital Signs - 24 hr 08/21/23 16:01 08/21/23 18:00 08/22/23 08:10 Temperature 97.8 F 96.4 F L Pulse Rate 71 67 Respiratory Rate 16 20 Blood Pressure 131/81 122/63 112/59 L Pulse Oximetry 92 94 Oxygen Delivery Method Room Air Room Air BMI result Body Mass Index 25.2 Labs 07/16/23 10:34 07/17/23 08:12 Medications Medications Current Medications Acetaminophen (Acetaminophen 325 Mg Tablet) 650 mg PO Q6H PRN PRN Reason: Headache/Pain Mild Scale (1-3) Last Admin: 08/16/23 21:01 Dose: 650 mg Al Hydroxide/Mg Hydroxide (Magnesium Hydrox/Alum Hydrox 30 Ml Oral.Susp) 30 ml PO Q6H PRN PRN Reason: Heartburn/Nausea Al Hydroxide/Mg Hydroxide (Magnesium Hydrox/Alum Hydrox 30 Ml Oral.Susp) 30 ml PO Q6H PRN PRN Reason: Heartburn/Nausea Clonidine HCl (Clonidine Hcl 0.1 Mg Tablet) 0.05 mg PO TID [facility]; Protocol Last Admin: 08/22/23 08:43 Dose: 0.05 mg Donepezil HCl (Donepezil Hcl 10 Mg Tablet) 10 mg PO BEDTIME [facility] Last Admin: 08/21/23 20:59 Dose: 10 mg Folic Acid (Folic Acid 1 Mg Tablet) 1 mg PO DAILY [facility] Last Admin: 08/22/23 08:45 Dose: 1 mg Ibuprofen (Ibuprofen 200 Mg Tablet) 200 mg PO Q6H PRN PRN Reason: Pain, Moderate(Pain Scale 4-6) Last Admin: 08/20/23 17:57 Dose: 200 mg Lorazepam (Lorazepam 0.5 Mg Tablet) 0.5 mg PO Q8H PRN PRN Reason: anxiety/restlessness Last Admin: 08/20/23 17:57 Dose: 0.5 mg Magnesium Hydroxide (Milk Of Magnesia 30 Ml Oral.Susp) 30 ml PO DAILY PRN PRN Reason: Constipation Magnesium Hydroxide (Milk Of Magnesia 30 Ml Oral.Susp) 30 ml PO DAILY PRN PRN Reason: Constipation Melatonin (Melatonin 3 Mg Tablet) 6 mg PO BEDTIME PRN PRN Reason: Insomnia Last Admin: 08/20/23 21:10 Dose: 6 mg Memantine (Memantine Hcl 10 Mg Tablet) 10 mg PO BID [facility] Last Admin: 08/22/23 08:43 Dose: 10 mg Propranolol HCl (Propranolol Hcl 10 Mg Tablet) 10 mg PO TID [facility]; Protocol Last Admin: 08/22/23 08:45 Dose: 10 mg Quetiapine Fumarate (Quetiapine Fumarate 25 Mg Tablet) 25 mg PO BEDTIME MRX1 [facility] Last Admin: 08/21/23 22:13 Dose: 25 mg Tamsulosin HCl (Tamsulosin Hcl 0.4 Mg Capsule) 0.4 mg PO DAILY@1730 [facility] Last Admin: 08/21/23 16:03 Dose: 0.4 mg Thiamine HCl (Thiamine Hcl 100 Mg Tablet) 100 mg PO BID [facility] Last Admin: 08/22/23 08:45 Dose: 100 mg Trazodone HCl (Trazodone Hcl 50 Mg Tablet) 50 mg PO BEDTIME MRX1 PRN PRN Reason: Insomnia Last Admin: 08/21/23 20:58 Dose: 50 mg Vortioxetine (Vortioxetine Hydrobromide 20 Mg Tablet) 20 mg PO DAILY [facility] Last Admin: 08/22/23 08:45 Dose: 20 mg Allergies Allergies Allergy/AdvReac Type Severity Reaction Status Date / Time risperidone [From Risperdal] Allergy Intermediate UNKNOWN Verified 05/12/23 13:13 Sulfa (Sulfonamide Allergy Intermediate rash Verified 05/12/23 13:13 Antibiotics) From BENADRYL Allergy Intermediate DIZZY Uncoded 02/14/23 11:47 Assessment & Plan Assessment & Plan (1) Major depressive disorder, recurrent severe without psychotic features: Status: Acute Code(s): F33.2 - Major depressive disorder, recurrent severe without psychotic features (2) Spondylosis without myelopathy or radiculopathy, lumbar region: Status: Acute Code(s): M47.816 - Spondylosis without myelopathy or radiculopathy, lumbar region (3) Insomnia: Qualifiers: Insomnia type: unspecified Qualified Code(s): G47.00 - Insomnia, unspecified Status: Acute Code(s): G47.00 - Insomnia, unspecified Plan This patient suffering from spondylosis of lumbar spine and multiple old compression fractures of the lumbar spine. There is tenderness on palpation in the projection of L1-L2 and L3 vertebras. She denies radiation of the pain. Most likely her pain is secondary to spondylosis and facet joint arthropathy. Due to her mental status I do not think that neuromodulation would be a good way of treating this patient's pain, this is why I offered to her therapeutic T12-L1 L2 L3 bilateral medial branch block. It is not clear for me whether the patient can sign her own consent. It is also remains to be seen whether she can tolerate the procedure without sedation. With history of psychotic depression she might not be able to stand still on the operating table without anesthesia assistance. We will schedule this procedure as soon as this issue will be clarified. 08/06/2023 Pain management note reviewed and appreciated. Patient remains depressed demoralized over not returning home does seem to understand situation and why it appears she can not. The patient generally is able to give consent however may need help to consent to above procedure need to clarify healthcare proxy issues 08/07/23 Will need to involve healthcare proxy and decision for surgery cont namena aricept less restlessness with vraylar d/c 08/08/23 CTP 08/09/23 CTP watch bp meds and bp - ? lower dosing 08/10/23 cont [id number] low dose seroquel lower clonidine 08/11/23 Cont beharioral plan of care d/c planning 08/12/2023 STARTED ON CEFTIN BURNING ON URINATION NOTED NO NOTED KIDNEY STONES ON RECENT PLAIN FILMS ENCOURAGE FLUIDS CONTINUE DISCHARGE PLANNING 08/13/2023 Continue discharge plan continue Ceftin 08/16/23 Continue current treatment plan discharge planning 08/17/23 CONTINUE TX PLAN 08/18/23 no changes continue treatment plan 08/19/2023 Continue plan of care discharge planning consider ECT patient had previously been on L methyl folate consider citocholine 08/20/2019 Continue plan of care discussed pain management options 08/21/2023 Continue plan of care also spoke with patient's 08/22/2023: Continue current regimen and plans Reason for continued inpatient stay Substantial Risk for: inability to function and med/psych decompensation Time Spent With Patient Time: Total time managing care of this patient today ____ minutes.
--- NOTE | 2023-08-22 11:30 | HO.PSYCHPN ---
Subjective Subjective Date of Service: 08/22/23 Reason For Visit: Major depression with psychotic features Diagnostics Vital Signs (24Hr): Vital Signs - 24 hr 08/21/23 16:01 08/21/23 18:00 08/22/23 08:10 Temperature 97.8 F 96.4 F L Pulse Rate 71 67 Respiratory Rate 16 20 Blood Pressure 131/81 122/63 112/59 L Pulse Oximetry 92 94 Oxygen Delivery Method Room Air Room Air BMI result Body Mass Index 25.2 Labs 07/16/23 10:34 07/17/23 08:12 Medications Medications Current Medications Acetaminophen (Acetaminophen 325 Mg Tablet) 650 mg PO Q6H PRN PRN Reason: Headache/Pain Mild Scale (1-3) Last Admin: 08/16/23 21:01 Dose: 650 mg Al Hydroxide/Mg Hydroxide (Magnesium Hydrox/Alum Hydrox 30 Ml Oral.Susp) 30 ml PO Q6H PRN PRN Reason: Heartburn/Nausea Al Hydroxide/Mg Hydroxide (Magnesium Hydrox/Alum Hydrox 30 Ml Oral.Susp) 30 ml PO Q6H PRN PRN Reason: Heartburn/Nausea Clonidine HCl (Clonidine Hcl 0.1 Mg Tablet) 0.05 mg PO TID COUNTS INCLUDE 234 BEDS AT THE [facility]; Protocol Last Admin: 08/22/23 08:43 Dose: 0.05 mg Donepezil HCl (Donepezil Hcl 10 Mg Tablet) 10 mg PO BEDTIME COUNTS INCLUDE 234 BEDS AT THE [facility] Last Admin: 08/21/23 20:59 Dose: 10 mg Folic Acid (Folic Acid 1 Mg Tablet) 1 mg PO DAILY [facility] Last Admin: 08/22/23 08:45 Dose: 1 mg Ibuprofen (Ibuprofen 200 Mg Tablet) 200 mg PO Q6H PRN PRN Reason: Pain, Moderate(Pain Scale 4-6) Last Admin: 08/20/23 17:57 Dose: 200 mg Lorazepam (Lorazepam 0.5 Mg Tablet) 0.5 mg PO Q8H PRN PRN Reason: anxiety/restlessness Last Admin: 08/20/23 17:57 Dose: 0.5 mg Magnesium Hydroxide (Milk Of Magnesia 30 Ml Oral.Susp) 30 ml PO DAILY PRN PRN Reason: Constipation Magnesium Hydroxide (Milk Of Magnesia 30 Ml Oral.Susp) 30 ml PO DAILY PRN PRN Reason: Constipation Melatonin (Melatonin 3 Mg Tablet) 6 mg PO BEDTIME PRN PRN Reason: Insomnia Last Admin: 08/20/23 21:10 Dose: 6 mg Memantine (Memantine Hcl 10 Mg Tablet) 10 mg PO BID COUNTS INCLUDE 234 BEDS AT THE [facility] Last Admin: 08/22/23 08:43 Dose: 10 mg Propranolol HCl (Propranolol Hcl 10 Mg Tablet) 10 mg PO TID COUNTS INCLUDE 234 BEDS AT THE [facility]; Protocol Last Admin: 08/22/23 08:45 Dose: 10 mg Quetiapine Fumarate (Quetiapine Fumarate 25 Mg Tablet) 25 mg PO BEDTIME MRX1 COUNTS INCLUDE 234 BEDS AT THE [facility] Last Admin: 08/21/23 22:13 Dose: 25 mg Tamsulosin HCl (Tamsulosin Hcl 0.4 Mg Capsule) 0.4 mg PO DAILY@1730 COUNTS INCLUDE 234 BEDS AT THE [facility] Last Admin: 08/21/23 16:03 Dose: 0.4 mg Thiamine HCl (Thiamine Hcl 100 Mg Tablet) 100 mg PO BID COUNTS INCLUDE 234 BEDS AT THE [facility] Last Admin: 08/22/23 08:45 Dose: 100 mg Trazodone HCl (Trazodone Hcl 50 Mg Tablet) 50 mg PO BEDTIME MRX1 PRN PRN Reason: Insomnia Last Admin: 08/21/23 20:58 Dose: 50 mg Vortioxetine (Vortioxetine Hydrobromide 20 Mg Tablet) 20 mg PO DAILY COUNTS INCLUDE 234 BEDS AT THE [facility] Last Admin: 08/22/23 08:45 Dose: 20 mg Allergies Allergies Allergy/AdvReac Type Severity Reaction Status Date / Time risperidone [From Risperdal] Allergy Intermediate UNKNOWN Verified 05/12/23 13:13 Sulfa (Sulfonamide Allergy Intermediate rash Verified 05/12/23 13:13 Antibiotics) From BENADRYL Allergy Intermediate DIZZY Uncoded 02/14/23 11:47 Assessment & Plan Assessment & Plan (1) Major depressive disorder, recurrent severe without psychotic features: Status: Acute Code(s): F33.2 - Major depressive disorder, recurrent severe without psychotic features (2) Spondylosis without myelopathy or radiculopathy, lumbar region: Status: Acute Code(s): M47.816 - Spondylosis without myelopathy or radiculopathy, lumbar region (3) Insomnia: Qualifiers: Insomnia type: unspecified Qualified Code(s): G47.00 - Insomnia, unspecified Status: Acute Code(s): G47.00 - Insomnia, unspecified Plan This patient suffering from spondylosis of lumbar spine and multiple old compression fractures of the lumbar spine. There is tenderness on palpation in the projection of L1-L2 and L3 vertebras. She denies radiation of the pain. Most likely her pain is secondary to spondylosis and facet joint arthropathy. Due to her mental status I do not think that neuromodulation would be a good way of treating this patient's pain, this is why I offered to her therapeutic T12-L1 L2 L3 bilateral medial branch block. It is not clear for me whether the patient can sign her own consent. It is also remains to be seen whether she can tolerate the procedure without sedation. With history of psychotic depression she might not be able to stand still on the operating table without anesthesia assistance. We will schedule this procedure as soon as this issue will be clarified. 08/06/2023 Pain management note reviewed and appreciated. Patient remains depressed demoralized over not returning home does seem to understand situation and why it appears she can not. The patient generally is able to give consent however may need help to consent to above procedure need to clarify healthcare proxy issues 08/07/23 Will need to involve healthcare proxy and decision for surgery cont namena aricept less restlessness with vraylar d/c 08/08/23 CTP 08/09/23 CTP watch bp meds and bp - ? lower dosing 08/10/23 cont [id number] low dose seroquel lower clonidine 08/11/23 Cont beharioral plan of care d/c planning 08/12/2023 STARTED ON CEFTIN BURNING ON URINATION NOTED NO NOTED KIDNEY STONES ON RECENT PLAIN FILMS ENCOURAGE FLUIDS CONTINUE DISCHARGE PLANNING 08/13/2023 Continue discharge plan continue Ceftin 08/16/23 Continue current treatment plan discharge planning 08/17/23 CONTINUE TX PLAN 08/18/23 no changes continue treatment plan 08/19/2023 Continue plan of care discharge planning consider ECT patient had previously been on L methyl folate consider citocholine 08/20/2019 Continue plan of care discussed pain management options 08/21/2023 Continue plan of care also spoke with patient's 08/22/2023: Continue current regimen and plans Reason for continued inpatient stay Substantial Risk for: inability to function Time Spent With Patient Time: Total time managing care of this patient today ____ minutes.
[2023-08-22 14:24] VITALS: BP 97/55; PULSE 60
[2023-08-22] MEDS: Tamsulosin HCL 0.4 MG CAPSULE PO (16:30)
[2023-08-22 19:30] VITALS: BP 115/59; PULSE 58; RESP 16; TEMP 35.9; O2SAT 98
[2023-08-22] MEDS: QUEtiapine Fumarate 25 MG TABLET PO ×2 (20:35→23:07)
[2023-08-22] MEDS: Donepezil HCl 10 MG TABLET PO (20:36)
[2023-08-23 08:09] VITALS: BP 108/56; PULSE 67; RESP 18; TEMP 36.3; O2SAT 94
[2023-08-23] MEDS: Propranolol HCL 10 MG TABLET PO ×3 (08:28→21:13)
[2023-08-23] MEDS: cloNIDine HCL 0.1 MG TABLET 0.05 MG PO ×3 (08:28→21:13)
[2023-08-23] MEDS: Vortioxetine Hydrobromide 20 MG TABLET PO (08:29)
[2023-08-23] MEDS: Folic Acid 1 MG TABLET PO (08:29)
[2023-08-23] MEDS: Thiamine HCL 100 MG TABLET PO ×2 (08:29→21:13)
[2023-08-23] MEDS: Memantine HCl 10 MG TABLET PO ×2 (08:29→21:13)
--- NOTE | 2023-08-23 10:53 | HO.PSYCHPN ---
Subjective Subjective Date of Service: 08/23/23 Reason For Visit: Major depression with psychotic features Interim History: Patient was seen and discussed in rounds today. Records and plans were reviewed. She has been doing about the same, continues to be in her room, in the bed. Eating and sleeping adequately. No complaints or side effects. No behavioral issues. No changes were made today Review of Systems Review of Systems Yes Unobtainable due to mental status Mental Status Exam Mental Status Exam Narrative: In today's visit she is alert, pleasant and interactive within her means. Soft-spoken speech. Moderate eye contact. Affect is constricted and flat. No signs of psychosis. No dangerous behaviors. No SI. Cognitively has slow thought processes. Judgment is fair. Diagnostics Vital Signs (24Hr): Vital Signs - 24 hr 08/22/23 14:24 08/22/23 19:30 08/23/23 08:09 Temperature 96.7 F L 97.4 F Pulse Rate 60 58 67 Respiratory Rate 16 18 Blood Pressure 97/55 L 115/59 L 108/56 L Pulse Oximetry 98 94 Oxygen Delivery Method Room Air Room Air BMI result Body Mass Index 25.2 Labs 07/16/23 10:34 07/17/23 08:12 Medications Medications Current Medications Acetaminophen (Acetaminophen 325 Mg Tablet) 650 mg PO Q6H PRN PRN Reason: Headache/Pain Mild Scale (1-3) Last Admin: 08/16/23 21:01 Dose: 650 mg Al Hydroxide/Mg Hydroxide (Magnesium Hydrox/Alum Hydrox 30 Ml Oral.Susp) 30 ml PO Q6H PRN PRN Reason: Heartburn/Nausea Al Hydroxide/Mg Hydroxide (Magnesium Hydrox/Alum Hydrox 30 Ml Oral.Susp) 30 ml PO Q6H PRN PRN Reason: Heartburn/Nausea Clonidine HCl (Clonidine Hcl 0.1 Mg Tablet) 0.05 mg PO TID [facility]; Protocol Last Admin: 08/23/23 08:28 Dose: 0.05 mg Donepezil HCl (Donepezil Hcl 10 Mg Tablet) 10 mg PO BEDTIME [facility] Last Admin: 08/22/23 20:36 Dose: 10 mg Folic Acid (Folic Acid 1 Mg Tablet) 1 mg PO DAILY [facility] Last Admin: 08/23/23 08:29 Dose: 1 mg Ibuprofen (Ibuprofen 200 Mg Tablet) 200 mg PO Q6H PRN PRN Reason: Pain, Moderate(Pain Scale 4-6) Last Admin: 08/20/23 17:57 Dose: 200 mg Lorazepam (Lorazepam 0.5 Mg Tablet) 0.5 mg PO Q8H PRN PRN Reason: anxiety/restlessness Last Admin: 08/20/23 17:57 Dose: 0.5 mg Magnesium Hydroxide (Milk Of Magnesia 30 Ml Oral.Susp) 30 ml PO DAILY PRN PRN Reason: Constipation Magnesium Hydroxide (Milk Of Magnesia 30 Ml Oral.Susp) 30 ml PO DAILY PRN PRN Reason: Constipation Melatonin (Melatonin 3 Mg Tablet) 6 mg PO BEDTIME PRN PRN Reason: Insomnia Last Admin: 08/20/23 21:10 Dose: 6 mg Memantine (Memantine Hcl 10 Mg Tablet) 10 mg PO BID [facility] Last Admin: 08/23/23 08:29 Dose: 10 mg Propranolol HCl (Propranolol Hcl 10 Mg Tablet) 10 mg PO TID [facility]; Protocol Last Admin: 08/23/23 08:28 Dose: 10 mg Quetiapine Fumarate (Quetiapine Fumarate 25 Mg Tablet) 25 mg PO BEDTIME MRX1 [facility] Last Admin: 08/22/23 23:09 Dose: Not Given Tamsulosin HCl (Tamsulosin Hcl 0.4 Mg Capsule) 0.4 mg PO DAILY@1730 [facility] Last Admin: 08/22/23 16:30 Dose: 0.4 mg Thiamine HCl (Thiamine Hcl 100 Mg Tablet) 100 mg PO BID [facility] Last Admin: 08/23/23 08:29 Dose: 100 mg Trazodone HCl (Trazodone Hcl 50 Mg Tablet) 50 mg PO BEDTIME MRX1 PRN PRN Reason: Insomnia Last Admin: 08/21/23 20:58 Dose: 50 mg Vortioxetine (Vortioxetine Hydrobromide 20 Mg Tablet) 20 mg PO DAILY [facility] Last Admin: 08/23/23 08:29 Dose: 20 mg Allergies Allergies Allergy/AdvReac Type Severity Reaction Status Date / Time risperidone [From Risperdal] Allergy Intermediate UNKNOWN Verified 05/12/23 13:13 Sulfa (Sulfonamide Allergy Intermediate rash Verified 05/12/23 13:13 Antibiotics) From BENADRYL Allergy Intermediate DIZZY Uncoded 02/14/23 11:47 Assessment & Plan Assessment & Plan (1) Major depressive disorder, recurrent severe without psychotic features: Status: Acute Code(s): F33.2 - Major depressive disorder, recurrent severe without psychotic features (2) Spondylosis without myelopathy or radiculopathy, lumbar region: Status: Acute Code(s): M47.816 - Spondylosis without myelopathy or radiculopathy, lumbar region (3) Insomnia: Qualifiers: Insomnia type: unspecified Qualified Code(s): G47.00 - Insomnia, unspecified Status: Acute Code(s): G47.00 - Insomnia, unspecified Plan This patient suffering from spondylosis of lumbar spine and multiple old compression fractures of the lumbar spine. There is tenderness on palpation in the projection of L1-L2 and L3 vertebras. She denies radiation of the pain. Most likely her pain is secondary to spondylosis and facet joint arthropathy. Due to her mental status I do not think that neuromodulation would be a good way of treating this patient's pain, this is why I offered to her therapeutic T12-L1 L2 L3 bilateral medial branch block. It is not clear for me whether the patient can sign her own consent. It is also remains to be seen whether she can tolerate the procedure without sedation. With history of psychotic depression she might not be able to stand still on the operating table without anesthesia assistance. We will schedule this procedure as soon as this issue will be clarified. 08/06/2023 Pain management note reviewed and appreciated. Patient remains depressed demoralized over not returning home does seem to understand situation and why it appears she can not. The patient generally is able to give consent however may need help to consent to above procedure need to clarify healthcare proxy issues 08/07/23 Will need to involve healthcare proxy and decision for surgery cont namena aricept less restlessness with vraylar d/c 08/08/23 CTP 08/09/23 CTP watch bp meds and bp - ? lower dosing 08/10/23 cont [id number] low dose seroquel lower clonidine 08/11/23 Cont beharioral plan of care d/c planning 08/12/2023 STARTED ON CEFTIN BURNING ON URINATION NOTED NO NOTED KIDNEY STONES ON RECENT PLAIN FILMS ENCOURAGE FLUIDS CONTINUE DISCHARGE PLANNING 08/13/2023 Continue discharge plan continue Ceftin 08/16/23 Continue current treatment plan discharge planning 08/17/23 CONTINUE TX PLAN 08/18/23 no changes continue treatment plan 08/19/2023 Continue plan of care discharge planning consider ECT patient had previously been on L methyl folate consider citocholine 08/20/2019 Continue plan of care discussed pain management options 08/21/2023 Continue plan of care also spoke with patient's 08/22/2023: Continue current regimen and plans Reason for continued inpatient stay Substantial Risk for: inability to function and med/psych decompensation Time Spent With Patient Time: Total time managing care of this patient today ____ minutes.
[2023-08-23 14:45] VITALS: BP 104/58
[2023-08-23] MEDS: Tamsulosin HCL 0.4 MG CAPSULE PO (16:41)
[2023-08-23] MEDS: Donepezil HCl 10 MG TABLET PO (21:13)
[2023-08-23] MEDS: QUEtiapine Fumarate 25 MG TABLET PO (21:13)
[2023-08-23] MEDS: traZODone HCL 50 MG TABLET PO (21:13)
[2023-08-23 21:35] VITALS: BP 125/57; PULSE 63; RESP 18; TEMP 36; O2SAT 98
[2023-08-24] MEDS: Melatonin 3 MG TABLET 6 MG PO ×2 (01:43→21:09)
[2023-08-24] MEDS: traZODone HCL 50 MG TABLET PO ×2 (01:43→21:08)
[2023-08-24] MEDS: LORazepam 0.5 MG TABLET PO (01:43)
[2023-08-24] MEDS: QUEtiapine Fumarate 25 MG TABLET PO ×2 (01:43→21:08)
[2023-08-24 06:00] VITALS: BP 100/61; PULSE 61; RESP 18; TEMP 36.6; O2SAT 97
[2023-08-24] MEDS: cloNIDine HCL 0.1 MG TABLET 0.05 MG PO ×3 (08:38→21:07)
[2023-08-24] MEDS: Thiamine HCL 100 MG TABLET PO ×2 (08:39→21:08)
[2023-08-24] MEDS: Vortioxetine Hydrobromide 20 MG TABLET PO (08:39)
[2023-08-24] MEDS: Propranolol HCL 10 MG TABLET PO ×3 (08:39→21:08)
[2023-08-24] MEDS: Memantine HCl 10 MG TABLET PO ×2 (08:39→21:08)
[2023-08-24] MEDS: Folic Acid 1 MG TABLET PO (08:39)
--- NOTE | 2023-08-24 13:46 | HO.PSYCHPN ---
Subjective Subjective Date of Service: 08/24/23 Reason For Visit: Major depression with psychotic features Subjective Notes: Conditional Voluntary Interim History: Patient's case reviewed in treatment planning chart review patient seen. Patient with flores affect she and her reportedly are considering how she might be able to return home. 's post to discuss this with family previous discharge had centered around care home facility Mental Status Exam Mental Status Exam Narrative: In today's visit she is alert, pleasant and interactive within her means. Soft-spoken speech. Moderate eye contact. Affect is constricted and flat. Mood described as okay No signs of psychosis. No dangerous behaviors. Patient is alert flores affect No SI. Cognitively has slow thought processes. Judgment is fair. Diagnostics Vital Signs (24Hr): Vital Signs - 24 hr 08/23/23 14:45 08/23/23 21:35 08/24/23 06:00 Temperature 96.8 F 97.8 F Pulse Rate 63 61 Respiratory Rate 18 18 Blood Pressure 104/58 L 125/57 L 100/61 Pulse Oximetry 98 97 Oxygen Delivery Method Room Air Room Air BMI result Body Mass Index 25.2 Labs 07/16/23 10:34 07/17/23 08:12 Medications Medications Current Medications Acetaminophen (Acetaminophen 325 Mg Tablet) 650 mg PO Q6H PRN PRN Reason: Headache/Pain Mild Scale (1-3) Last Admin: 08/16/23 21:01 Dose: 650 mg Al Hydroxide/Mg Hydroxide (Magnesium Hydrox/Alum Hydrox 30 Ml Oral.Susp) 30 ml PO Q6H PRN PRN Reason: Heartburn/Nausea Al Hydroxide/Mg Hydroxide (Magnesium Hydrox/Alum Hydrox 30 Ml Oral.Susp) 30 ml PO Q6H PRN PRN Reason: Heartburn/Nausea Clonidine HCl (Clonidine Hcl 0.1 Mg Tablet) 0.05 mg PO TID [facility]; Protocol Last Admin: 08/24/23 08:38 Dose: 0.05 mg Donepezil HCl (Donepezil Hcl 10 Mg Tablet) 10 mg PO BEDTIME [facility] Last Admin: 08/23/23 21:13 Dose: 10 mg Folic Acid (Folic Acid 1 Mg Tablet) 1 mg PO DAILY [facility] Last Admin: 08/24/23 08:39 Dose: 1 mg Ibuprofen (Ibuprofen 200 Mg Tablet) 200 mg PO Q6H PRN PRN Reason: Pain, Moderate(Pain Scale 4-6) Last Admin: 08/20/23 17:57 Dose: 200 mg Lorazepam (Lorazepam 0.5 Mg Tablet) 0.5 mg PO Q8H PRN PRN Reason: anxiety/restlessness Last Admin: 08/24/23 01:43 Dose: 0.5 mg Magnesium Hydroxide (Milk Of Magnesia 30 Ml Oral.Susp) 30 ml PO DAILY PRN PRN Reason: Constipation Magnesium Hydroxide (Milk Of Magnesia 30 Ml Oral.Susp) 30 ml PO DAILY PRN PRN Reason: Constipation Melatonin (Melatonin 3 Mg Tablet) 6 mg PO BEDTIME PRN PRN Reason: Insomnia Last Admin: 08/24/23 01:43 Dose: 6 mg Memantine (Memantine Hcl 10 Mg Tablet) 10 mg PO BID [facility] Last Admin: 08/24/23 08:39 Dose: 10 mg Propranolol HCl (Propranolol Hcl 10 Mg Tablet) 10 mg PO TID [facility]; Protocol Last Admin: 08/24/23 08:39 Dose: 10 mg Quetiapine Fumarate (Quetiapine Fumarate 25 Mg Tablet) 25 mg PO BEDTIME MRX1 [facility] Last Admin: 08/24/23 01:43 Dose: 25 mg Tamsulosin HCl (Tamsulosin Hcl 0.4 Mg Capsule) 0.4 mg PO DAILY@1730 [facility] Last Admin: 08/23/23 16:41 Dose: 0.4 mg Thiamine HCl (Thiamine Hcl 100 Mg Tablet) 100 mg PO BID [facility] Last Admin: 08/24/23 08:39 Dose: 100 mg Trazodone HCl (Trazodone Hcl 50 Mg Tablet) 50 mg PO BEDTIME MRX1 PRN PRN Reason: Insomnia Last Admin: 08/24/23 01:43 Dose: 50 mg Vortioxetine (Vortioxetine Hydrobromide 20 Mg Tablet) 20 mg PO DAILY [facility] Last Admin: 08/24/23 08:39 Dose: 20 mg Allergies Allergies Allergy/AdvReac Type Severity Reaction Status Date / Time risperidone [From Risperdal] Allergy Intermediate UNKNOWN Verified 05/12/23 13:13 Sulfa (Sulfonamide Allergy Intermediate rash Verified 05/12/23 13:13 Antibiotics) From BENADRYL Allergy Intermediate DIZZY Uncoded 02/14/23 11:47 Assessment & Plan Assessment & Plan (1) Major depressive disorder, recurrent severe without psychotic features: Status: Acute Code(s): F33.2 - Major depressive disorder, recurrent severe without psychotic features (2) Spondylosis without myelopathy or radiculopathy, lumbar region: Status: Acute Code(s): M47.816 - Spondylosis without myelopathy or radiculopathy, lumbar region (3) Insomnia: Qualifiers: Insomnia type: unspecified Qualified Code(s): G47.00 - Insomnia, unspecified Status: Acute Code(s): G47.00 - Insomnia, unspecified Plan This patient suffering from spondylosis of lumbar spine and multiple old compression fractures of the lumbar spine. There is tenderness on palpation in the projection of L1-L2 and L3 vertebras. She denies radiation of the pain. Most likely her pain is secondary to spondylosis and facet joint arthropathy. Due to her mental status I do not think that neuromodulation would be a good way of treating this patient's pain, this is why I offered to her therapeutic T12-L1 L2 L3 bilateral medial branch block. It is not clear for me whether the patient can sign her own consent. It is also remains to be seen whether she can tolerate the procedure without sedation. With history of psychotic depression she might not be able to stand still on the operating table without anesthesia assistance. We will schedule this procedure as soon as this issue will be clarified. 08/06/2023 Pain management note reviewed and appreciated. Patient remains depressed demoralized over not returning home does seem to understand situation and why it appears she can not. The patient generally is able to give consent however may need help to consent to above procedure need to clarify healthcare proxy issues 08/07/23 Will need to involve healthcare proxy and decision for surgery cont namena aricept less restlessness with vraylar d/c 08/08/23 CTP 08/09/23 CTP watch bp meds and bp - ? lower dosing 08/10/23 cont [id number] low dose seroquel lower clonidine 08/11/23 Cont beharioral plan of care d/c planning 08/12/2023 STARTED ON CEFTIN BURNING ON URINATION NOTED NO NOTED KIDNEY STONES ON RECENT PLAIN FILMS ENCOURAGE FLUIDS CONTINUE DISCHARGE PLANNING 08/13/2023 Continue discharge plan continue Ceftin 08/16/23 Continue current treatment plan discharge planning 08/17/23 CONTINUE TX PLAN 08/18/23 no changes continue treatment plan 08/19/2023 Continue plan of care discharge planning consider ECT patient had previously been on L methyl folate consider citocholine 08/20/2019 Continue plan of care discussed pain management options 08/21/2023 Continue plan of care also spoke with patient's 08/22/2023: Continue current regimen and plans 08/24/2023 Continue plan of care patient with flores affect seems to be functioning at a somewhat improved level patient's family reconsidering discharge options. Case reviewed with OT and social work. This needs extensive consideration prior discharge plan home went quickly awry Reason for continued inpatient stay Substantial Risk for: inability to function and rapid decompensation Time Spent With Patient Time: Total time managing care of this patient today ____ minutes.
[2023-08-24 15:37] VITALS: BP 123/72
[2023-08-24] MEDS: Tamsulosin HCL 0.4 MG CAPSULE PO (17:35)
[2023-08-24 18:00] VITALS: BP 110/62; PULSE 64; RESP 18; TEMP 35.8; O2SAT 94
[2023-08-24] MEDS: Donepezil HCl 10 MG TABLET PO (21:08)
--- NOTE | 2023-08-24 23:16 | PC.NURSE ---
Patient refused HS oxygen, O2 sat 94 % on room air, denied any resp discomfort.
[2023-08-25 08:00] VITALS: BP 126/58; PULSE 93; RESP 18; TEMP 36.6; O2SAT 94
[2023-08-25] MEDS: Folic Acid 1 MG TABLET PO (08:52)
[2023-08-25] MEDS: Propranolol HCL 10 MG TABLET PO ×2 (08:52→21:09)
[2023-08-25] MEDS: cloNIDine HCL 0.1 MG TABLET 0.05 MG PO ×2 (08:52→21:08)
[2023-08-25] MEDS: Memantine HCl 10 MG TABLET PO ×2 (08:52→21:09)
[2023-08-25] MEDS: Thiamine HCL 100 MG TABLET PO ×2 (08:52→21:09)
[2023-08-25] MEDS: Vortioxetine Hydrobromide 20 MG TABLET PO (08:52)
[2023-08-25 15:00] VITALS: BP 84/47; PULSE 65
[2023-08-25 15:05] VITALS: BP 109/57; PULSE 66; RESP 18
--- NOTE | 2023-08-25 15:51 | PC.NURSE ---
15:00 Propranolol and Clonidine held d/t decreased BP. Dr Rueda notified. Will continue to monitor.
[2023-08-25] MEDS: Tamsulosin HCL 0.4 MG CAPSULE PO (17:26)
[2023-08-25] MEDS: QUEtiapine Fumarate 25 MG TABLET PO (21:09)
[2023-08-25] MEDS: Donepezil HCl 10 MG TABLET PO (21:09)
--- NOTE | 2023-08-25 21:31 | HO.PSYCHPN ---
Subjective Subjective Date of Service: 08/25/23 Reason For Visit: Major depression with psychotic features Subjective Notes: Conditional Voluntary Interim History: Patient case reviewed in treatment planning chart reviewed patient seen. Patient shows somewhat variable mood with periods where she is somewhat more withdrawn passive and flat. She does socially interact on the unit but generally has not been attending groups intermittently refusing O2 referral made to correction facility with filing for long-term care [facility] application unclear patient's and patient's care could be managed in home setting. Recently patient were not able to manage her in outpatient home setting Mental Status Exam Mental Status Exam Narrative: In today's visit she is alert, somewhat flat withdrawn Soft-spoken speech. Moderate eye contact. Affect is constricted and flat. Mood described as okay No signs of psychosis. No dangerous behaviors. Patient is alert flores affect No SI. No delusional material Cognitively has slow thought processes. She is alert and oriented Judgment is fair. Diagnostics Vital Signs (24Hr): Vital Signs - 24 hr 08/25/23 08:00 08/25/23 15:00 08/25/23 15:05 Temperature 97.8 F Pulse Rate 93 65 66 Respiratory Rate 18 18 Blood Pressure 126/58 L 84/47 L 109/57 L Pulse Oximetry 94 Oxygen Delivery Method Room Air BMI result Body Mass Index 25.2 Labs 07/16/23 10:34 07/17/23 08:12 Medications Medications Current Medications Acetaminophen (Acetaminophen 325 Mg Tablet) 650 mg PO Q6H PRN PRN Reason: Headache/Pain Mild Scale (1-3) Last Admin: 08/16/23 21:01 Dose: 650 mg Al Hydroxide/Mg Hydroxide (Magnesium Hydrox/Alum Hydrox 30 Ml Oral.Susp) 30 ml PO Q6H PRN PRN Reason: Heartburn/Nausea Al Hydroxide/Mg Hydroxide (Magnesium Hydrox/Alum Hydrox 30 Ml Oral.Susp) 30 ml PO Q6H PRN PRN Reason: Heartburn/Nausea Clonidine HCl (Clonidine Hcl 0.1 Mg Tablet) 0.05 mg PO TID [facility]; Protocol Last Admin: 08/25/23 21:08 Dose: 0.05 mg Donepezil HCl (Donepezil Hcl 10 Mg Tablet) 10 mg PO BEDTIME [facility] Last Admin: 08/25/23 21:09 Dose: 10 mg Folic Acid (Folic Acid 1 Mg Tablet) 1 mg PO DAILY [facility] Last Admin: 08/25/23 08:52 Dose: 1 mg Ibuprofen (Ibuprofen 200 Mg Tablet) 200 mg PO Q6H PRN PRN Reason: Pain, Moderate(Pain Scale 4-6) Last Admin: 08/20/23 17:57 Dose: 200 mg Lorazepam (Lorazepam 0.5 Mg Tablet) 0.5 mg PO Q8H PRN PRN Reason: anxiety/restlessness Last Admin: 08/24/23 01:43 Dose: 0.5 mg Magnesium Hydroxide (Milk Of Magnesia 30 Ml Oral.Susp) 30 ml PO DAILY PRN PRN Reason: Constipation Magnesium Hydroxide (Milk Of Magnesia 30 Ml Oral.Susp) 30 ml PO DAILY PRN PRN Reason: Constipation Melatonin (Melatonin 3 Mg Tablet) 6 mg PO BEDTIME PRN PRN Reason: Insomnia Last Admin: 08/24/23 21:09 Dose: 6 mg Memantine (Memantine Hcl 10 Mg Tablet) 10 mg PO BID [facility] Last Admin: 08/25/23 21:09 Dose: 10 mg Propranolol HCl (Propranolol Hcl 10 Mg Tablet) 10 mg PO TID [facility]; Protocol Last Admin: 08/25/23 21:09 Dose: 10 mg Quetiapine Fumarate (Quetiapine Fumarate 25 Mg Tablet) 25 mg PO BEDTIME MRX1 [facility] Last Admin: 08/25/23 21:09 Dose: 25 mg Tamsulosin HCl (Tamsulosin Hcl 0.4 Mg Capsule) 0.4 mg PO DAILY@1730 [facility] Last Admin: 08/25/23 17:26 Dose: 0.4 mg Thiamine HCl (Thiamine Hcl 100 Mg Tablet) 100 mg PO BID [facility] Last Admin: 08/25/23 21:09 Dose: 100 mg Trazodone HCl (Trazodone Hcl 50 Mg Tablet) 50 mg PO BEDTIME MRX1 PRN PRN Reason: Insomnia Last Admin: 08/24/23 21:08 Dose: 50 mg Vortioxetine (Vortioxetine Hydrobromide 20 Mg Tablet) 20 mg PO DAILY [facility] Last Admin: 08/25/23 08:52 Dose: 20 mg Allergies Allergies Allergy/AdvReac Type Severity Reaction Status Date / Time risperidone [From Risperdal] Allergy Intermediate UNKNOWN Verified 05/12/23 13:13 Sulfa (Sulfonamide Allergy Intermediate rash Verified 05/12/23 13:13 Antibiotics) From BENADRYL Allergy Intermediate DIZZY Uncoded 02/14/23 11:47 Assessment & Plan Assessment & Plan (1) Major depressive disorder, recurrent severe without psychotic features: Status: Acute Code(s): F33.2 - Major depressive disorder, recurrent severe without psychotic features (2) Spondylosis without myelopathy or radiculopathy, lumbar region: Status: Acute Code(s): M47.816 - Spondylosis without myelopathy or radiculopathy, lumbar region (3) Insomnia: Qualifiers: Insomnia type: unspecified Qualified Code(s): G47.00 - Insomnia, unspecified Status: Acute Code(s): G47.00 - Insomnia, unspecified Plan This patient suffering from spondylosis of lumbar spine and multiple old compression fractures of the lumbar spine. There is tenderness on palpation in the projection of L1-L2 and L3 vertebras. She denies radiation of the pain. Most likely her pain is secondary to spondylosis and facet joint arthropathy. Due to her mental status I do not think that neuromodulation would be a good way of treating this patient's pain, this is why I offered to her therapeutic T12-L1 L2 L3 bilateral medial branch block. It is not clear for me whether the patient can sign her own consent. It is also remains to be seen whether she can tolerate the procedure without sedation. With history of psychotic depression she might not be able to stand still on the operating table without anesthesia assistance. We will schedule this procedure as soon as this issue will be clarified. 08/06/2023 Pain management note reviewed and appreciated. Patient remains depressed demoralized over not returning home does seem to understand situation and why it appears she can not. The patient generally is able to give consent however may need help to consent to above procedure need to clarify healthcare proxy issues 08/07/23 Will need to involve healthcare proxy and decision for surgery cont namena aricept less restlessness with vraylar d/c 08/08/23 CTP 08/09/23 CTP watch bp meds and bp - ? lower dosing 08/10/23 cont [id number] low dose seroquel lower clonidine 08/11/23 Cont beharioral plan of care d/c planning 08/12/2023 STARTED ON CEFTIN BURNING ON URINATION NOTED NO NOTED KIDNEY STONES ON RECENT PLAIN FILMS ENCOURAGE FLUIDS CONTINUE DISCHARGE PLANNING 08/13/2023 Continue discharge plan continue Ceftin 08/16/23 Continue current treatment plan discharge planning 08/17/23 CONTINUE TX PLAN 08/18/23 no changes continue treatment plan 08/19/2023 Continue plan of care discharge planning consider ECT patient had previously been on L methyl folate consider citocholine 08/20/2019 Continue plan of care discussed pain management options 08/21/2023 Continue plan of care also spoke with patient's 08/22/2023: Continue current regimen and plans 08/24/2023 Continue plan of care patient with flores affect seems to be functioning at a somewhat improved level patient's family reconsidering discharge options. Case reviewed with OT and social work. This needs extensive consideration prior discharge plan home went quickly awry 08/25/23 Patient with somewhat variable baseline. Some periods of improved mood and energy at other times more withdrawn flat and bed. Question if can be managed in home setting continue to evaluate. Patient's discussed talking with his family patient did have discrepancy in left and right arm blood pressures today reviewed with Dr. Silver no chest pain noted will follow otherwise continue plan of care Reason for continued inpatient stay Substantial Risk for: inability to function, rapid decompensation and med/psych decompensation Time Spent With Patient Time: Total time managing care of this patient today ____ minutes.
[2023-08-25 22:32] VITALS: BP 120/57; PULSE 66; RESP 18; TEMP 36.3; O2SAT 100
[2023-08-26 08:00] VITALS: BP 139/62; PULSE 60; RESP 18; TEMP 36.1; O2SAT 98
[2023-08-26] MEDS: Folic Acid 1 MG TABLET PO (08:22)
[2023-08-26] MEDS: Propranolol HCL 10 MG TABLET PO ×3 (08:22→21:33)
[2023-08-26] MEDS: Memantine HCl 10 MG TABLET PO ×2 (08:22→21:33)
[2023-08-26] MEDS: Vortioxetine Hydrobromide 20 MG TABLET PO (08:22)
[2023-08-26] MEDS: Thiamine HCL 100 MG TABLET PO ×2 (08:22→21:33)
[2023-08-26] MEDS: cloNIDine HCL 0.1 MG TABLET 0.05 MG PO ×3 (08:26→21:32)
[2023-08-26 15:00] VITALS: BP 120/62; PULSE 65; RESP 18
[2023-08-26] MEDS: Tamsulosin HCL 0.4 MG CAPSULE PO (16:34)
[2023-08-26 18:00] VITALS: BP 118/57; PULSE 63; RESP 17; TEMP 36; O2SAT 93
[2023-08-26] MEDS: Donepezil HCl 10 MG TABLET PO (21:33)
[2023-08-26] MEDS: QUEtiapine Fumarate 25 MG TABLET PO ×2 (21:33→22:59)
[2023-08-27 07:55] VITALS: BP 107/58; PULSE 68; RESP 18; TEMP 36.1; O2SAT 94
[2023-08-27] MEDS: Vortioxetine Hydrobromide 20 MG TABLET PO (08:40)
[2023-08-27] MEDS: Thiamine HCL 100 MG TABLET PO ×2 (08:40→20:09)
[2023-08-27] MEDS: cloNIDine HCL 0.1 MG TABLET 0.05 MG PO ×3 (08:40→20:07)
[2023-08-27] MEDS: Memantine HCl 10 MG TABLET PO ×2 (08:41→20:07)
[2023-08-27] MEDS: Propranolol HCL 10 MG TABLET PO ×3 (08:41→20:07)
[2023-08-27] MEDS: Folic Acid 1 MG TABLET PO (08:41)
[2023-08-27 10:03] VITALS: BMI 25.5
[2023-08-27] MEDS: Tamsulosin HCL 0.4 MG CAPSULE PO (16:33)
--- NOTE | 2023-08-27 17:07 | HO.PSYCHPN ---
Subjective Subjective Date of Service: 08/27/23 Reason For Visit: Major depression with psychotic features Subjective Notes: Conditional Voluntary Interim History: pt flat dysphoric some anxiety Medication Compliance: Yes Mental Status Exam Mental Status Exam Narrative: In today's visit she is alert, somewhat flat withdrawn Soft-spoken speech. Moderate eye contact. Affect is constricted and flat. Mood described as okay No signs of psychosis. No dangerous behaviors. Patient is alert flores affect No SI. No delusional material Cognitively has slow thought processes. She is alert and oriented Judgment is fair. Diagnostics Vital Signs (24Hr): Vital Signs - 24 hr 08/26/23 18:00 08/27/23 07:55 Temperature 96.8 F 97 F Pulse Rate 63 68 Respiratory Rate 17 18 Blood Pressure 118/57 L 107/58 L Pulse Oximetry 93 94 Oxygen Delivery Method Room Air Room Air BMI result Body Mass Index 25.5 Labs 07/16/23 10:34 07/17/23 08:12 Medications Medications Current Medications Acetaminophen (Acetaminophen 325 Mg Tablet) 650 mg PO Q6H PRN PRN Reason: Headache/Pain Mild Scale (1-3) Last Admin: 08/16/23 21:01 Dose: 650 mg Al Hydroxide/Mg Hydroxide (Magnesium Hydrox/Alum Hydrox 30 Ml Oral.Susp) 30 ml PO Q6H PRN PRN Reason: Heartburn/Nausea Al Hydroxide/Mg Hydroxide (Magnesium Hydrox/Alum Hydrox 30 Ml Oral.Susp) 30 ml PO Q6H PRN PRN Reason: Heartburn/Nausea Clonidine HCl (Clonidine Hcl 0.1 Mg Tablet) 0.05 mg PO TID [facility]; Protocol Last Admin: 08/27/23 14:54 Dose: 0.05 mg Donepezil HCl (Donepezil Hcl 10 Mg Tablet) 10 mg PO BEDTIME [facility] Last Admin: 08/26/23 21:33 Dose: 10 mg Folic Acid (Folic Acid 1 Mg Tablet) 1 mg PO DAILY [facility] Last Admin: 08/27/23 08:41 Dose: 1 mg Ibuprofen (Ibuprofen 200 Mg Tablet) 200 mg PO Q6H PRN PRN Reason: Pain, Moderate(Pain Scale 4-6) Last Admin: 08/20/23 17:57 Dose: 200 mg Lorazepam (Lorazepam 0.5 Mg Tablet) 0.5 mg PO Q8H PRN PRN Reason: anxiety/restlessness Last Admin: 08/24/23 01:43 Dose: 0.5 mg Magnesium Hydroxide (Milk Of Magnesia 30 Ml Oral.Susp) 30 ml PO DAILY PRN PRN Reason: Constipation Magnesium Hydroxide (Milk Of Magnesia 30 Ml Oral.Susp) 30 ml PO DAILY PRN PRN Reason: Constipation Melatonin (Melatonin 3 Mg Tablet) 6 mg PO BEDTIME PRN PRN Reason: Insomnia Last Admin: 08/24/23 21:09 Dose: 6 mg Memantine (Memantine Hcl 10 Mg Tablet) 10 mg PO BID [facility] Last Admin: 08/27/23 08:41 Dose: 10 mg Propranolol HCl (Propranolol Hcl 10 Mg Tablet) 10 mg PO TID [facility]; Protocol Last Admin: 08/27/23 14:54 Dose: 10 mg Quetiapine Fumarate (Quetiapine Fumarate 25 Mg Tablet) 25 mg PO BEDTIME MRX1 [facility] Last Admin: 08/26/23 22:59 Dose: 25 mg Tamsulosin HCl (Tamsulosin Hcl 0.4 Mg Capsule) 0.4 mg PO DAILY@1730 [facility] Last Admin: 08/27/23 16:33 Dose: 0.4 mg Thiamine HCl (Thiamine Hcl 100 Mg Tablet) 100 mg PO BID [facility] Last Admin: 08/27/23 08:40 Dose: 100 mg Trazodone HCl (Trazodone Hcl 50 Mg Tablet) 50 mg PO BEDTIME MRX1 PRN PRN Reason: Insomnia Last Admin: 08/24/23 21:08 Dose: 50 mg Vortioxetine (Vortioxetine Hydrobromide 20 Mg Tablet) 20 mg PO DAILY [facility] Last Admin: 08/27/23 08:40 Dose: 20 mg Allergies Allergies Allergy/AdvReac Type Severity Reaction Status Date / Time risperidone [From Risperdal] Allergy Intermediate UNKNOWN Verified 05/12/23 13:13 Sulfa (Sulfonamide Allergy Intermediate rash Verified 05/12/23 13:13 Antibiotics) From BENADRYL Allergy Intermediate DIZZY Uncoded 02/14/23 11:47 Assessment & Plan Assessment & Plan (1) Major depressive disorder, recurrent severe without psychotic features: Status: Acute Code(s): F33.2 - Major depressive disorder, recurrent severe without psychotic features (2) Spondylosis without myelopathy or radiculopathy, lumbar region: Status: Acute Code(s): M47.816 - Spondylosis without myelopathy or radiculopathy, lumbar region (3) Insomnia: Qualifiers: Insomnia type: unspecified Qualified Code(s): G47.00 - Insomnia, unspecified Status: Acute Code(s): G47.00 - Insomnia, unspecified Plan This patient suffering from spondylosis of lumbar spine and multiple old compression fractures of the lumbar spine. There is tenderness on palpation in the projection of L1-L2 and L3 vertebras. She denies radiation of the pain. Most likely her pain is secondary to spondylosis and facet joint arthropathy. Due to her mental status I do not think that neuromodulation would be a good way of treating this patient's pain, this is why I offered to her therapeutic T12-L1 L2 L3 bilateral medial branch block. It is not clear for me whether the patient can sign her own consent. It is also remains to be seen whether she can tolerate the procedure without sedation. With history of psychotic depression she might not be able to stand still on the operating table without anesthesia assistance. We will schedule this procedure as soon as this issue will be clarified. 08/06/2023 Pain management note reviewed and appreciated. Patient remains depressed demoralized over not returning home does seem to understand situation and why it appears she can not. The patient generally is able to give consent however may need help to consent to above procedure need to clarify healthcare proxy issues 08/07/23 Will need to involve healthcare proxy and decision for surgery cont namena aricept less restlessness with vraylar d/c 08/08/23 CTP 08/09/23 CTP watch bp meds and bp - ? lower dosing 08/10/23 cont [id number] low dose seroquel lower clonidine 08/11/23 Cont beharioral plan of care d/c planning 08/12/2023 STARTED ON CEFTIN BURNING ON URINATION NOTED NO NOTED KIDNEY STONES ON RECENT PLAIN FILMS ENCOURAGE FLUIDS CONTINUE DISCHARGE PLANNING 08/13/2023 Continue discharge plan continue Ceftin 08/16/23 Continue current treatment plan discharge planning 08/17/23 CONTINUE TX PLAN 08/18/23 no changes continue treatment plan 08/19/2023 Continue plan of care discharge planning consider ECT patient had previously been on L methyl folate consider citocholine 08/20/2019 Continue plan of care discussed pain management options 08/21/2023 Continue plan of care also spoke with patient's 08/22/2023: Continue current regimen and plans 08/24/2023 Continue plan of care patient with flores affect seems to be functioning at a somewhat improved level patient's family reconsidering discharge options. Case reviewed with OT and social work. This needs extensive consideration prior discharge plan home went quickly awry 08/25/23 Patient with somewhat variable baseline. Some periods of improved mood and energy at other times more withdrawn flat and bed. Question if can be managed in home setting continue to evaluate. Patient's discussed talking with his family patient did have discrepancy in left and right arm blood pressures today reviewed with Dr. Silver no chest pain noted will follow otherwise continue plan of care 08/27/23 Pt seen case reviewed with staff pts mood stable h figuring out if he can take care of referrals made trying to involve family support Patient educated on: medication risk/benefits and medical condition Informed Consent: understands Reason for continued inpatient stay Substantial Risk for: stable for discharge, rapid decompensation and med/psych decompensation Time Spent With Patient Time: Total time managing care of this patient today _28___ minutes.
[2023-08-27 18:00] VITALS: BP 133/83; PULSE 70; RESP 16; TEMP 36.4; O2SAT 98
[2023-08-27] MEDS: Melatonin 3 MG TABLET 6 MG PO (20:08)
[2023-08-27] MEDS: LORazepam 0.5 MG TABLET PO (20:09)
[2023-08-27] MEDS: QUEtiapine Fumarate 25 MG TABLET PO (20:09)
[2023-08-27] MEDS: Donepezil HCl 10 MG TABLET PO (20:09)
[2023-08-28] MEDS: QUEtiapine Fumarate 25 MG TABLET PO ×3 (02:39→21:11)
--- NOTE | 2023-08-28 05:33 | PC.NURSE ---
2400- pt refused to wear o2. states i dont want that tonight.
[2023-08-28 07:50] VITALS: BP 112/63; PULSE 98; RESP 18; TEMP 36.6; O2SAT 96
[2023-08-28] MEDS: Memantine HCl 10 MG TABLET PO ×2 (08:33→20:36)
[2023-08-28] MEDS: Vortioxetine Hydrobromide 20 MG TABLET PO (08:33)
[2023-08-28] MEDS: Propranolol HCL 10 MG TABLET PO ×3 (08:33→20:36)
[2023-08-28] MEDS: Thiamine HCL 100 MG TABLET PO ×2 (08:33→20:36)
[2023-08-28] MEDS: Folic Acid 1 MG TABLET PO (08:33)
[2023-08-28] MEDS: cloNIDine HCL 0.1 MG TABLET 0.05 MG PO (08:33)
--- NOTE | 2023-08-28 16:57 | P.PNPSI_ITS ---
Subjective Subjective Date of Service: 08/28/23 Reason For Visit: Major depression with psychotic features Subjective Notes: Conditional Voluntary Interim History: The patient is hoping to go home social work therapist arranging discharge services patient's to this point still consistent wanting take his back home. She does appear independent her dressing feeding herself self toileting Mental Status Exam Mental Status Exam Narrative: In today's visit she is alert, somewhat flat withdrawn Soft-spoken speech. Moderate eye contact. Affect is constricted and flat. Mood described as okay No signs of psychosis. No unusual behaviors tends to be somewhat isolative Patient is alert flores affect No SI. No delusional material Cognitively has slow thought processes. She is alert and oriented Judgment is fair. Diagnostics Vital Signs (24Hr): Vital Signs - 24 hr 08/27/23 18:00 08/28/23 07:50 Temperature 97.6 F 97.9 F Pulse Rate 70 98 Respiratory Rate 16 18 Blood Pressure 133/83 112/63 Pulse Oximetry 98 96 Oxygen Delivery Method Room Air Room Air BMI result Body Mass Index 25.5 Labs 07/16/23 10:34 07/17/23 08:12 Medications Medications Current Medications Acetaminophen (Acetaminophen 325 Mg Tablet) 650 mg PO Q6H PRN PRN Reason: Headache/Pain Mild Scale (1-3) Last Admin: 08/16/23 21:01 Dose: 650 mg Al Hydroxide/Mg Hydroxide (Magnesium Hydrox/Alum Hydrox 30 Ml Oral.Susp) 30 ml PO Q6H PRN PRN Reason: Heartburn/Nausea Al Hydroxide/Mg Hydroxide (Magnesium Hydrox/Alum Hydrox 30 Ml Oral.Susp) 30 ml PO Q6H PRN PRN Reason: Heartburn/Nausea Donepezil HCl (Donepezil Hcl 10 Mg Tablet) 10 mg PO BEDTIME [facility] Last Admin: 08/27/23 20:09 Dose: 10 mg Folic Acid (Folic Acid 1 Mg Tablet) 1 mg PO DAILY [facility] Last Admin: 08/28/23 08:33 Dose: 1 mg Ibuprofen (Ibuprofen 200 Mg Tablet) 200 mg PO Q6H PRN PRN Reason: Pain, Moderate(Pain Scale 4-6) Last Admin: 08/20/23 17:57 Dose: 200 mg Lorazepam (Lorazepam 0.5 Mg Tablet) 0.5 mg PO Q8H PRN PRN Reason: anxiety/restlessness Last Admin: 08/27/23 20:09 Dose: 0.5 mg Magnesium Hydroxide (Milk Of Magnesia 30 Ml Oral.Susp) 30 ml PO DAILY PRN PRN Reason: Constipation Magnesium Hydroxide (Milk Of Magnesia 30 Ml Oral.Susp) 30 ml PO DAILY PRN PRN Reason: Constipation Melatonin (Melatonin 3 Mg Tablet) 6 mg PO BEDTIME PRN PRN Reason: Insomnia Last Admin: 08/27/23 20:08 Dose: 6 mg Memantine (Memantine Hcl 10 Mg Tablet) 10 mg PO BID [facility] Last Admin: 08/28/23 08:33 Dose: 10 mg Propranolol HCl (Propranolol Hcl 10 Mg Tablet) 10 mg PO TID [facility]; Protocol Last Admin: 08/28/23 14:34 Dose: 10 mg Quetiapine Fumarate (Quetiapine Fumarate 25 Mg Tablet) 25 mg PO BEDTIME MRX1 [facility] Last Admin: 08/28/23 02:39 Dose: 25 mg Tamsulosin HCl (Tamsulosin Hcl 0.4 Mg Capsule) 0.4 mg PO DAILY@1730 [facility] Last Admin: 08/27/23 16:33 Dose: 0.4 mg Thiamine HCl (Thiamine Hcl 100 Mg Tablet) 100 mg PO BID [facility] Last Admin: 08/28/23 08:33 Dose: 100 mg Trazodone HCl (Trazodone Hcl 50 Mg Tablet) 50 mg PO BEDTIME MRX1 PRN PRN Reason: Insomnia Last Admin: 08/24/23 21:08 Dose: 50 mg Vortioxetine (Vortioxetine Hydrobromide 20 Mg Tablet) 20 mg PO DAILY [facility] Last Admin: 08/28/23 08:33 Dose: 20 mg Allergies Allergies Allergy/AdvReac Type Severity Reaction Status Date / Time risperidone [From Risperdal] Allergy Intermediate UNKNOWN Verified 05/12/23 13:13 Sulfa (Sulfonamide Allergy Intermediate rash Verified 05/12/23 13:13 Antibiotics) From BENADRYL Allergy Intermediate DIZZY Uncoded 02/14/23 11:47 Assessment & Plan Assessment & Plan (1) Major depressive disorder, recurrent severe without psychotic features: Status: Acute Code(s): F33.2 - Major depressive disorder, recurrent severe without psychotic features (2) Spondylosis without myelopathy or radiculopathy, lumbar region: Status: Acute Code(s): M47.816 - Spondylosis without myelopathy or radiculopathy, lumbar region (3) Insomnia: Qualifiers: Insomnia type: unspecified Qualified Code(s): G47.00 - Insomnia, unspecified Status: Acute Code(s): G47.00 - Insomnia, unspecified Plan This patient suffering from spondylosis of lumbar spine and multiple old compression fractures of the lumbar spine. There is tenderness on palpation in the projection of L1-L2 and L3 vertebras. She denies radiation of the pain. Most likely her pain is secondary to spondylosis and facet joint arthropathy. Due to her mental status I do not think that neuromodulation would be a good way of treating this patient's pain, this is why I offered to her therapeutic T12-L1 L2 L3 bilateral medial branch block. It is not clear for me whether the patient can sign her own consent. It is also remains to be seen whether she can tolerate the procedure without sedation. With history of psychotic depression she might not be able to stand still on the operating table without anesthesia assistance. We will schedule this procedure as soon as this issue will be clarified. 08/06/2023 Pain management note reviewed and appreciated. Patient remains depressed demoralized over not returning home does seem to understand situation and why it appears she can not. The patient generally is able to give consent however may need help to consent to above procedure need to clarify healthcare proxy issues 08/07/23 Will need to involve healthcare proxy and decision for surgery cont namena aricept less restlessness with vraylar d/c 08/08/23 CTP 08/09/23 CTP watch bp meds and bp - ? lower dosing 08/10/23 cont [id number] low dose seroquel lower clonidine 08/11/23 Cont beharioral plan of care d/c planning 08/12/2023 STARTED ON CEFTIN BURNING ON URINATION NOTED NO NOTED KIDNEY STONES ON RECENT PLAIN FILMS ENCOURAGE FLUIDS CONTINUE DISCHARGE PLANNING 08/13/2023 Continue discharge plan continue Ceftin 08/16/23 Continue current treatment plan discharge planning 08/17/23 CONTINUE TX PLAN 08/18/23 no changes continue treatment plan 08/19/2023 Continue plan of care discharge planning consider ECT patient had previously been on L methyl folate consider citocholine 08/20/2019 Continue plan of care discussed pain management options 08/21/2023 Continue plan of care also spoke with patient's 08/22/2023: Continue current regimen and plans 08/24/2023 Continue plan of care patient with flores affect seems to be functioning at a somewhat improved level patient's family reconsidering discharge options. Case reviewed with OT and social work. This needs extensive consideration prior discharge plan home went quickly awry 08/25/23 Patient with somewhat variable baseline. Some periods of improved mood and energy at other times more withdrawn flat and bed. Question if can be managed in home setting continue to evaluate. Patient's discussed talking with his family patient did have discrepancy in left and right arm blood pressures today reviewed with Dr. Silver no chest pain noted will follow otherwise continue plan of care 08/27/23 Pt seen case reviewed with staff pts mood stable h figuring out if he can take care of referrals made trying to involve family support 08/28/23 Patient seen psychiatric follow-up. Patient's mood stable patient remains calm future oriented some degree of poverty of content planning for discharge home Reason for continued inpatient stay Substantial Risk for: inability to function, rapid decompensation and med/psych decompensation Time Spent With Patient Time: Total time managing care of this patient today ____ minutes.
[2023-08-28 18:00] VITALS: BP 132/64; PULSE 71; RESP 18; O2SAT 95
[2023-08-28] MEDS: Donepezil HCl 10 MG TABLET PO (20:36)
[2023-08-28] MEDS: traZODone HCL 50 MG TABLET PO (20:36)
[2023-08-28 20:43] VITALS: TEMP 36.1
[2023-08-28] MEDS: Melatonin 3 MG TABLET 6 MG PO (21:11)
[2023-08-29 08:00] VITALS: BP 106/56; PULSE 69; RESP 18; TEMP 36.1; O2SAT 94
[2023-08-29] MEDS: LORazepam 0.5 MG TABLET PO (08:09)
[2023-08-29] MEDS: Memantine HCl 10 MG TABLET PO ×2 (08:46→20:20)
[2023-08-29] MEDS: Thiamine HCL 100 MG TABLET PO ×2 (08:46→20:20)
[2023-08-29] MEDS: Folic Acid 1 MG TABLET PO (08:46)
[2023-08-29] MEDS: Propranolol HCL 10 MG TABLET PO ×3 (08:46→20:19)
[2023-08-29] MEDS: Vortioxetine Hydrobromide 20 MG TABLET PO (09:20)
[2023-08-29] MEDS: Donepezil HCl 10 MG TABLET PO (20:20)
[2023-08-29] MEDS: QUEtiapine Fumarate 25 MG TABLET PO ×2 (20:20→20:48)
[2023-08-29] MEDS: traZODone HCL 50 MG TABLET PO (20:20)
[2023-08-29] MEDS: Tamsulosin HCL 0.4 MG CAPSULE PO (20:20)
[2023-08-29 21:29] VITALS: BP 128/70; PULSE 77; RESP 18; TEMP 36.4; O2SAT 95
--- NOTE | 2023-08-29 23:23 | P.PNPSI_ITS ---
Subjective Subjective Date of Service: 08/29/23 Reason For Visit: Major depression with psychotic features Subjective Notes: Conditional Voluntary Interim History: Patient pleasant ambulatory less depressed calm future oriented hoping for discharge home Mental Status Exam Mental Status Exam Narrative: Patient is alert cooperative future oriented casually dressed appropriately groomed. Ambulating independently. Mood euthymic affect appropriate no hallucinations or delusional material no SI or HI some degree of poverty of content Diagnostics Vital Signs (24Hr): Vital Signs - 24 hr 08/29/23 08:00 08/29/23 21:29 Temperature 96.9 F 97.6 F Pulse Rate 69 77 Respiratory Rate 18 18 Blood Pressure 106/56 L 128/70 Pulse Oximetry 94 95 Oxygen Delivery Method Room Air Room Air BMI result Body Mass Index 25.5 Labs 07/16/23 10:34 07/17/23 08:12 Medications Medications Current Medications Acetaminophen (Acetaminophen 325 Mg Tablet) 650 mg PO Q6H PRN PRN Reason: Headache/Pain Mild Scale (1-3) Last Admin: 08/16/23 21:01 Dose: 650 mg Al Hydroxide/Mg Hydroxide (Magnesium Hydrox/Alum Hydrox 30 Ml Oral.Susp) 30 ml PO Q6H PRN PRN Reason: Heartburn/Nausea Al Hydroxide/Mg Hydroxide (Magnesium Hydrox/Alum Hydrox 30 Ml Oral.Susp) 30 ml PO Q6H PRN PRN Reason: Heartburn/Nausea Donepezil HCl (Donepezil Hcl 10 Mg Tablet) 10 mg PO BEDTIME [facility] Last Admin: 08/29/23 20:20 Dose: 10 mg Folic Acid (Folic Acid 1 Mg Tablet) 1 mg PO DAILY [facility] Last Admin: 08/29/23 08:46 Dose: 1 mg Ibuprofen (Ibuprofen 200 Mg Tablet) 200 mg PO Q6H PRN PRN Reason: Pain, Moderate(Pain Scale 4-6) Last Admin: 08/20/23 17:57 Dose: 200 mg Lorazepam (Lorazepam 0.5 Mg Tablet) 0.5 mg PO Q8H PRN PRN Reason: anxiety/restlessness Last Admin: 08/29/23 08:09 Dose: 0.5 mg Magnesium Hydroxide (Milk Of Magnesia 30 Ml Oral.Susp) 30 ml PO DAILY PRN PRN Reason: Constipation Magnesium Hydroxide (Milk Of Magnesia 30 Ml Oral.Susp) 30 ml PO DAILY PRN PRN Reason: Constipation Melatonin (Melatonin 3 Mg Tablet) 6 mg PO BEDTIME PRN PRN Reason: Insomnia Last Admin: 08/28/23 21:11 Dose: 6 mg Memantine (Memantine Hcl 10 Mg Tablet) 10 mg PO BID [facility] Last Admin: 08/29/23 20:20 Dose: 10 mg Propranolol HCl (Propranolol Hcl 10 Mg Tablet) 10 mg PO TID [facility]; Protocol Last Admin: 08/29/23 20:19 Dose: 10 mg Quetiapine Fumarate (Quetiapine Fumarate 25 Mg Tablet) 25 mg PO BEDTIME MRX1 [facility] Last Admin: 08/29/23 20:48 Dose: 25 mg Tamsulosin HCl (Tamsulosin Hcl 0.4 Mg Capsule) 0.4 mg PO DAILY@1730 [facility] Last Admin: 08/29/23 20:20 Dose: 0.4 mg Thiamine HCl (Thiamine Hcl 100 Mg Tablet) 100 mg PO BID [facility] Last Admin: 08/29/23 20:20 Dose: 100 mg Trazodone HCl (Trazodone Hcl 50 Mg Tablet) 50 mg PO BEDTIME MRX1 PRN PRN Reason: Insomnia Last Admin: 08/29/23 20:20 Dose: 50 mg Vortioxetine (Vortioxetine Hydrobromide 20 Mg Tablet) 20 mg PO DAILY [facility] Last Admin: 08/29/23 09:20 Dose: 20 mg Allergies Allergies Allergy/AdvReac Type Severity Reaction Status Date / Time risperidone [From Risperdal] Allergy Intermediate UNKNOWN Verified 05/12/23 13:13 Sulfa (Sulfonamide Allergy Intermediate rash Verified 05/12/23 13:13 Antibiotics) From BENADRYL Allergy Intermediate DIZZY Uncoded 02/14/23 11:47 Assessment & Plan Assessment & Plan (1) Major depressive disorder, recurrent severe without psychotic features: Status: Acute Code(s): F33.2 - Major depressive disorder, recurrent severe without psychotic features (2) Spondylosis without myelopathy or radiculopathy, lumbar region: Status: Acute Code(s): M47.816 - Spondylosis without myelopathy or radiculopathy, lumbar region (3) Insomnia: Qualifiers: Insomnia type: unspecified Qualified Code(s): G47.00 - Insomnia, unspecified Status: Acute Code(s): G47.00 - Insomnia, unspecified Plan This patient suffering from spondylosis of lumbar spine and multiple old compression fractures of the lumbar spine. There is tenderness on palpation in the projection of L1-L2 and L3 vertebras. She denies radiation of the pain. Most likely her pain is secondary to spondylosis and facet joint arthropathy. Due to her mental status I do not think that neuromodulation would be a good way of treating this patient's pain, this is why I offered to her therapeutic T12-L1 L2 L3 bilateral medial branch block. It is not clear for me whether the patient can sign her own consent. It is also remains to be seen whether she can tolerate the procedure without sedation. With history of psychotic depression she might not be able to stand still on the operating table without anesthesia assistance. We will schedule this procedure as soon as this issue will be clarified. 08/06/2023 Pain management note reviewed and appreciated. Patient remains depressed demoralized over not returning home does seem to understand situation and why it appears she can not. The patient generally is able to give consent however may need help to consent to above procedure need to clarify healthcare proxy issues 08/07/23 Will need to involve healthcare proxy and decision for surgery cont namena aricept less restlessness with vraylar d/c 08/08/23 CTP 08/09/23 CTP watch bp meds and bp - ? lower dosing 08/10/23 cont [id number] low dose seroquel lower clonidine 08/11/23 Cont beharioral plan of care d/c planning 08/12/2023 STARTED ON CEFTIN BURNING ON URINATION NOTED NO NOTED KIDNEY STONES ON RECENT PLAIN FILMS ENCOURAGE FLUIDS CONTINUE DISCHARGE PLANNING 08/13/2023 Continue discharge plan continue Ceftin 08/16/23 Continue current treatment plan discharge planning 08/17/23 CONTINUE TX PLAN 08/18/23 no changes continue treatment plan 08/19/2023 Continue plan of care discharge planning consider ECT patient had previously been on L methyl folate consider citocholine 08/20/2019 Continue plan of care discussed pain management options 08/21/2023 Continue plan of care also spoke with patient's 08/22/2023: Continue current regimen and plans 08/24/2023 Continue plan of care patient with flores affect seems to be functioning at a somewhat improved level patient's family reconsidering discharge options. Case reviewed with OT and social work. This needs extensive consideration prior discharge plan home went quickly awry 08/25/23 Patient with somewhat variable baseline. Some periods of improved mood and energy at other times more withdrawn flat and bed. Question if can be managed in home setting continue to evaluate. Patient's discussed talking with his family patient did have discrepancy in left and right arm blood pressures today reviewed with Dr. Silver no chest pain noted will follow otherwise continue plan of care 08/27/23 Pt seen case reviewed with staff pts mood stable h figuring out if he can take care of referrals made trying to involve family support 08/28/23 Patient seen psychiatric follow-up. Patient's mood stable patient remains calm future oriented some degree of poverty of content planning for discharge home 08/29/2023 Continue plan of care discharge planning patient has been increasingly stable ambulating without difficulty able to [place] herself toileting Reason for continued inpatient stay Substantial Risk for: inability to function and rapid decompensation Time Spent With Patient Time: Total time managing care of this patient today ____ minutes.
[2023-08-30 07:30] VITALS: BP 112/69; PULSE 74; RESP 18; TEMP 36.3; O2SAT 95
[2023-08-30] MEDS: Thiamine HCL 100 MG TABLET PO ×2 (08:24→20:19)
[2023-08-30] MEDS: Folic Acid 1 MG TABLET PO (08:25)
[2023-08-30] MEDS: Propranolol HCL 10 MG TABLET PO ×3 (08:25→20:19)
[2023-08-30] MEDS: Memantine HCl 10 MG TABLET PO ×2 (08:25→20:19)
[2023-08-30] MEDS: Vortioxetine Hydrobromide 20 MG TABLET PO (08:39)
--- NOTE | 2023-08-30 10:32 | P.PNPSI_ITS ---
Subjective Subjective Date of Service: 08/30/23 Reason For Visit: Major depression with psychotic features Subjective Notes: Conditional Voluntary Interim History: Patient seen psychiatric follow-up. Continues to do well future oriented cooperative Self grooming and self-care had markedly improved Flomax discontinued Medication Compliance: Yes Mental Status Exam Mental Status Exam Narrative: Patient is alert cooperative future oriented casually dressed appropriately groomed. Ambulating independently. Mood euthymic affect appropriate no hallucinations or delusional material no SI or HI some degree of poverty of content no hallucination judgment intact Diagnostics Vital Signs (24Hr): Vital Signs - 24 hr 08/29/23 21:29 08/30/23 07:30 Temperature 97.6 F 97.3 F Pulse Rate 77 74 Respiratory Rate 18 18 Blood Pressure 128/70 112/69 Pulse Oximetry 95 95 Oxygen Delivery Method Room Air Room Air BMI result Body Mass Index 25.5 Labs 07/16/23 10:34 07/17/23 08:12 Medications Medications Current Medications Acetaminophen (Acetaminophen 325 Mg Tablet) 650 mg PO Q6H PRN PRN Reason: Headache/Pain Mild Scale (1-3) Last Admin: 08/16/23 21:01 Dose: 650 mg Al Hydroxide/Mg Hydroxide (Magnesium Hydrox/Alum Hydrox 30 Ml Oral.Susp) 30 ml PO Q6H PRN PRN Reason: Heartburn/Nausea Al Hydroxide/Mg Hydroxide (Magnesium Hydrox/Alum Hydrox 30 Ml Oral.Susp) 30 ml PO Q6H PRN PRN Reason: Heartburn/Nausea Donepezil HCl (Donepezil Hcl 10 Mg Tablet) 10 mg PO BEDTIME [facility] Last Admin: 08/29/23 20:20 Dose: 10 mg Folic Acid (Folic Acid 1 Mg Tablet) 1 mg PO DAILY [facility] Last Admin: 08/30/23 08:25 Dose: 1 mg Ibuprofen (Ibuprofen 200 Mg Tablet) 200 mg PO Q6H PRN PRN Reason: Pain, Moderate(Pain Scale 4-6) Last Admin: 08/20/23 17:57 Dose: 200 mg Lorazepam (Lorazepam 0.5 Mg Tablet) 0.5 mg PO Q8H PRN PRN Reason: anxiety/restlessness Last Admin: 08/29/23 08:09 Dose: 0.5 mg Magnesium Hydroxide (Milk Of Magnesia 30 Ml Oral.Susp) 30 ml PO DAILY PRN PRN Reason: Constipation Magnesium Hydroxide (Milk Of Magnesia 30 Ml Oral.Susp) 30 ml PO DAILY PRN PRN Reason: Constipation Melatonin (Melatonin 3 Mg Tablet) 6 mg PO BEDTIME PRN PRN Reason: Insomnia Last Admin: 08/28/23 21:11 Dose: 6 mg Memantine (Memantine Hcl 10 Mg Tablet) 10 mg PO BID [facility] Last Admin: 08/30/23 08:25 Dose: 10 mg Propranolol HCl (Propranolol Hcl 10 Mg Tablet) 10 mg PO TID [facility]; Protocol Last Admin: 08/30/23 08:25 Dose: 10 mg Quetiapine Fumarate (Quetiapine Fumarate 25 Mg Tablet) 25 mg PO BEDTIME MRX[facility] Last Admin: 08/29/23 20:48 Dose: 25 mg Tamsulosin HCl (Tamsulosin Hcl 0.4 Mg Capsule) 0.4 mg PO DAILY@1730 [facility] Last Admin: 08/29/23 20:20 Dose: 0.4 mg Thiamine HCl (Thiamine Hcl 100 Mg Tablet) 100 mg PO BID [facility] Last Admin: 08/30/23 08:24 Dose: 100 mg Trazodone HCl (Trazodone Hcl 50 Mg Tablet) 50 mg PO BEDTIME MRX1 PRN PRN Reason: Insomnia Last Admin: 08/29/23 20:20 Dose: 50 mg Vortioxetine (Vortioxetine Hydrobromide 20 Mg Tablet) 20 mg PO DAILY [facility] Last Admin: 08/30/23 08:39 Dose: 20 mg Allergies Allergies Allergy/AdvReac Type Severity Reaction Status Date / Time risperidone [From Risperdal] Allergy Intermediate UNKNOWN Verified 05/12/23 13:13 Sulfa (Sulfonamide Allergy Intermediate rash Verified 05/12/23 13:13 Antibiotics) From BENADRYL Allergy Intermediate DIZZY Uncoded 02/14/23 11:47 Assessment & Plan Assessment & Plan (1) Major depressive disorder, recurrent severe without psychotic features: Status: Acute Code(s): F33.2 - Major depressive disorder, recurrent severe without psychotic features (2) Spondylosis without myelopathy or radiculopathy, lumbar region: Status: Acute Code(s): M47.816 - Spondylosis without myelopathy or radiculopathy, lumbar region (3) Insomnia: Qualifiers: Insomnia type: unspecified Qualified Code(s): G47.00 - Insomnia, unspecified Status: Acute Code(s): G47.00 - Insomnia, unspecified Plan This patient suffering from spondylosis of lumbar spine and multiple old compression fractures of the lumbar spine. There is tenderness on palpation in the projection of L1-L2 and L3 vertebras. She denies radiation of the pain. Most likely her pain is secondary to spondylosis and facet joint arthropathy. Due to her mental status I do not think that neuromodulation would be a good way of treating this patient's pain, this is why I offered to her therapeutic T12-L1 L2 L3 bilateral medial branch block. It is not clear for me whether the patient can sign her own consent. It is also remains to be seen whether she can tolerate the procedure without sedation. With history of psychotic depression she might not be able to stand still on the operating table without anesthesia assistance. We will schedule this procedure as soon as this issue will be clarified. 08/06/2023 Pain management note reviewed and appreciated. Patient remains depressed demoralized over not returning home does seem to understand situation and why it appears she can not. The patient generally is able to give consent however may need help to consent to above procedure need to clarify healthcare proxy issues 08/07/23 Will need to involve healthcare proxy and decision for surgery cont namena aricept less restlessness with vraylar d/c 08/08/23 CTP 08/09/23 CTP watch bp meds and bp - ? lower dosing 08/10/23 cont [id number] low dose seroquel lower clonidine 08/11/23 Cont beharioral plan of care d/c planning 08/12/2023 STARTED ON CEFTIN BURNING ON URINATION NOTED NO NOTED KIDNEY STONES ON RECENT PLAIN FILMS ENCOURAGE FLUIDS CONTINUE DISCHARGE PLANNING 08/13/2023 Continue discharge plan continue Ceftin 08/16/23 Continue current treatment plan discharge planning 08/17/23 CONTINUE TX PLAN 08/18/23 no changes continue treatment plan 08/19/2023 Continue plan of care discharge planning consider ECT patient had previously been on L methyl folate consider citocholine 08/20/2019 Continue plan of care discussed pain management options 08/21/2023 Continue plan of care also spoke with patient's 08/22/2023: Continue current regimen and plans 08/24/2023 Continue plan of care patient with flores affect seems to be functioning at a somewhat improved level patient's family reconsidering discharge options. Case reviewed with OT and social work. This needs extensive consideration prior discharge plan home went quickly awry 08/25/23 Patient with somewhat variable baseline. Some periods of improved mood and energy at other times more withdrawn flat and bed. Question if can be managed in home setting continue to evaluate. Patient's discussed talking with his family patient did have discrepancy in left and right arm blood pressures today reviewed with Dr. Silver no chest pain noted will follow otherwise continue plan of care 08/27/23 Pt seen case reviewed with staff pts mood stable h figuring out if he can take care of referrals made trying to involve family support 08/28/23 Patient seen psychiatric follow-up. Patient's mood stable patient remains calm future oriented some degree of poverty of content planning for discharge home 08/30/2023 Continue plan of care discharge planning. Flomax Reason for continued inpatient stay Substantial Risk for: inability to function and rapid decompensation Time Spent With Patient Time: Total time managing care of this patient today ____ minutes.
[2023-08-30 19:30] VITALS: BP 144/75; PULSE 73; RESP 18; TEMP 36.1; O2SAT 93
[2023-08-30] MEDS: traZODone HCL 50 MG TABLET PO (20:19)
[2023-08-30] MEDS: Donepezil HCl 10 MG TABLET PO (20:19)
[2023-08-30] MEDS: QUEtiapine Fumarate 25 MG TABLET PO ×2 (20:19→20:52)
[2023-08-31 07:45] VITALS: BP 120/81; PULSE 93; RESP 18; TEMP 36.7; O2SAT 95
[2023-08-31] MEDS: Propranolol HCL 10 MG TABLET PO ×3 (08:16→20:17)
[2023-08-31] MEDS: Memantine HCl 10 MG TABLET PO ×2 (08:17→20:18)
[2023-08-31] MEDS: Vortioxetine Hydrobromide 20 MG TABLET PO (08:17)
[2023-08-31] MEDS: Thiamine HCL 100 MG TABLET PO ×2 (08:17→20:18)
[2023-08-31] MEDS: Folic Acid 1 MG TABLET PO (08:17)
[2023-08-31 15:28] VITALS: BP 146/79; PULSE 80
[2023-08-31] MEDS: QUEtiapine Fumarate 25 MG TABLET PO (20:17)
[2023-08-31] MEDS: Donepezil HCl 10 MG TABLET PO (20:17)
[2023-08-31] MEDS: traZODone HCL 50 MG TABLET PO (20:17)
--- NOTE | 2023-08-31 20:32 | P.PNPSI_ITS ---
Subjective Subjective Date of Service: 08/31/23 Reason For Visit: Major depression with psychotic features Subjective Notes: Conditional Voluntary Interim History: Patient seen psychiatric follow-up chart review patient seen case reviewed in treatment planning Patient seen with her discussed issues related to discharge patient's still hoping for patient to return home Mental Status Exam Mental Status Exam Narrative: Patient is alert cooperative future oriented casually dressed appropriately groomed. Ambulating independently. Mood euthymic affect appropriate no hallucinations or delusional material no SI or HI some degree of poverty of content no hallucination judgment intact Diagnostics Vital Signs (24Hr): Vital Signs - 24 hr 08/31/23 07:45 08/31/23 15:28 Temperature 98.0 F Pulse Rate 93 80 Respiratory Rate 18 Blood Pressure 120/81 146/79 H Pulse Oximetry 95 Oxygen Delivery Method Room Air BMI result Body Mass Index 25.5 Labs 07/16/23 10:34 07/17/23 08:12 Medications Medications Current Medications Acetaminophen (Acetaminophen 325 Mg Tablet) 650 mg PO Q6H PRN PRN Reason: Headache/Pain Mild Scale (1-3) Last Admin: 08/16/23 21:01 Dose: 650 mg Al Hydroxide/Mg Hydroxide (Magnesium Hydrox/Alum Hydrox 30 Ml Oral.Susp) 30 ml PO Q6H PRN PRN Reason: Heartburn/Nausea Al Hydroxide/Mg Hydroxide (Magnesium Hydrox/Alum Hydrox 30 Ml Oral.Susp) 30 ml PO Q6H PRN PRN Reason: Heartburn/Nausea Donepezil HCl (Donepezil Hcl 10 Mg Tablet) 10 mg PO BEDTIME [facility] Last Admin: 08/31/23 20:17 Dose: 10 mg Folic Acid (Folic Acid 1 Mg Tablet) 1 mg PO DAILY [facility] Last Admin: 08/31/23 08:17 Dose: 1 mg Ibuprofen (Ibuprofen 200 Mg Tablet) 200 mg PO Q6H PRN PRN Reason: Pain, Moderate(Pain Scale 4-6) Last Admin: 08/20/23 17:57 Dose: 200 mg Lorazepam (Lorazepam 0.5 Mg Tablet) 0.5 mg PO Q8H PRN PRN Reason: anxiety/restlessness Last Admin: 08/29/23 08:09 Dose: 0.5 mg Magnesium Hydroxide (Milk Of Magnesia 30 Ml Oral.Susp) 30 ml PO DAILY PRN PRN Reason: Constipation Magnesium Hydroxide (Milk Of Magnesia 30 Ml Oral.Susp) 30 ml PO DAILY PRN PRN Reason: Constipation Melatonin (Melatonin 3 Mg Tablet) 6 mg PO BEDTIME PRN PRN Reason: Insomnia Last Admin: 08/28/23 21:11 Dose: 6 mg Memantine (Memantine Hcl 10 Mg Tablet) 10 mg PO BID [facility] Last Admin: 08/31/23 20:18 Dose: 10 mg Propranolol HCl (Propranolol Hcl 10 Mg Tablet) 10 mg PO TID [facility]; Protocol Last Admin: 08/31/23 20:17 Dose: 10 mg Quetiapine Fumarate (Quetiapine Fumarate 25 Mg Tablet) 25 mg PO BEDTIME MRX1 [facility] Last Admin: 08/31/23 20:17 Dose: 25 mg Thiamine HCl (Thiamine Hcl 100 Mg Tablet) 100 mg PO BID [facility] Last Admin: 08/31/23 20:18 Dose: 100 mg Trazodone HCl (Trazodone Hcl 50 Mg Tablet) 50 mg PO BEDTIME MRX1 PRN PRN Reason: Insomnia Last Admin: 08/31/23 20:17 Dose: 50 mg Vortioxetine (Vortioxetine Hydrobromide 20 Mg Tablet) 20 mg PO DAILY [facility] Last Admin: 08/31/23 08:17 Dose: 20 mg Allergies Allergies Allergy/AdvReac Type Severity Reaction Status Date / Time risperidone [From Risperdal] Allergy Intermediate UNKNOWN Verified 05/12/23 13:13 Sulfa (Sulfonamide Allergy Intermediate rash Verified 05/12/23 13:13 Antibiotics) From BENADRYL Allergy Intermediate DIZZY Uncoded 02/14/23 11:47 Assessment & Plan Assessment & Plan (1) Major depressive disorder, recurrent severe without psychotic features: Status: Acute Code(s): F33.2 - Major depressive disorder, recurrent severe without psychotic features (2) Spondylosis without myelopathy or radiculopathy, lumbar region: Status: Acute Code(s): M47.816 - Spondylosis without myelopathy or radiculopathy, lumbar region (3) Insomnia: Qualifiers: Insomnia type: unspecified Qualified Code(s): G47.00 - Insomnia, unspecified Status: Acute Code(s): G47.00 - Insomnia, unspecified Plan This patient suffering from spondylosis of lumbar spine and multiple old compression fractures of the lumbar spine. There is tenderness on palpation in the projection of L1-L2 and L3 vertebras. She denies radiation of the pain. Most likely her pain is secondary to spondylosis and facet joint arthropathy. Due to her mental status I do not think that neuromodulation would be a good way of treating this patient's pain, this is why I offered to her therapeutic T12-L1 L2 L3 bilateral medial branch block. It is not clear for me whether the patient can sign her own consent. It is also remains to be seen whether she can tolerate the procedure without sedation. With history of psychotic depression she might not be able to stand still on the operating table without anesthesia assistance. We will schedule this procedure as soon as this issue will be clarified. 08/06/2023 Pain management note reviewed and appreciated. Patient remains depressed demoralized over not returning home does seem to understand situation and why it appears she can not. The patient generally is able to give consent however may need help to consent to above procedure need to clarify healthcare proxy issues 08/07/23 Will need to involve healthcare proxy and decision for surgery cont namena aricept less restlessness with vraylar d/c 08/08/23 CTP 08/09/23 CTP watch bp meds and bp - ? lower dosing 08/10/23 cont [id number] low dose seroquel lower clonidine 08/11/23 Cont beharioral plan of care d/c planning 08/12/2023 STARTED ON CEFTIN BURNING ON URINATION NOTED NO NOTED KIDNEY STONES ON RECENT PLAIN FILMS ENCOURAGE FLUIDS CONTINUE DISCHARGE PLANNING 08/13/2023 Continue discharge plan continue Ceftin 08/16/23 Continue current treatment plan discharge planning 08/17/23 CONTINUE TX PLAN 08/18/23 no changes continue treatment plan 08/19/2023 Continue plan of care discharge planning consider ECT patient had previously been on L methyl folate consider citocholine 08/20/2019 Continue plan of care discussed pain management options 08/21/2023 Continue plan of care also spoke with patient's 08/22/2023: Continue current regimen and plans 08/24/2023 Continue plan of care patient with flores affect seems to be functioning at a somewhat improved level patient's family reconsidering discharge options. Case reviewed with OT and social work. This needs extensive consideration prior discharge plan home went quickly awry 08/25/23 Patient with somewhat variable baseline. Some periods of improved mood and energy at other times more withdrawn flat and bed. Question if can be managed in home setting continue to evaluate. Patient's discussed talking with his family patient did have discrepancy in left and right arm blood pressures today reviewed with Dr. Silver no chest pain noted will follow otherwise continue plan of care 08/27/23 Pt seen case reviewed with staff pts mood stable h figuring out if he can take care of referrals made trying to involve family support 08/28/23 Patient seen psychiatric follow-up. Patient's mood stable patient remains calm future oriented some degree of poverty of content planning for discharge home 08/30/2023 Continue plan of care discharge planning. Flomax 08/31/23 d/c preparation simplify medication Reason for continued inpatient stay Substantial Risk for: harm to self, inability to function and rapid decompensation Time Spent With Patient Time: Total time managing care of this patient today ____ minutes.
[2023-09-01 06:00] VITALS: BP 162/70; PULSE 82; RESP 18; TEMP 35.9; O2SAT 96
[2023-09-01] MEDS: Propranolol HCL 10 MG TABLET PO ×3 (07:57→20:22)
[2023-09-01] MEDS: Folic Acid 1 MG TABLET PO (07:58)
[2023-09-01] MEDS: Memantine HCl 10 MG TABLET PO ×2 (07:58→20:22)
[2023-09-01] MEDS: Vortioxetine Hydrobromide 20 MG TABLET PO (07:58)
[2023-09-01] MEDS: Thiamine HCL 100 MG TABLET PO ×2 (07:58→20:22)
[2023-09-01] MEDS: LORazepam 0.5 MG TABLET PO ×2 (08:05→20:22)
[2023-09-01 14:28] VITALS: BP 125/74; PULSE 92
[2023-09-01 18:00] VITALS: BP 122/58; PULSE 63; RESP 18; TEMP 36; O2SAT 96
[2023-09-01] MEDS: Melatonin 3 MG TABLET 6 MG PO (20:22)
[2023-09-01] MEDS: QUEtiapine Fumarate 25 MG TABLET PO (20:22)
[2023-09-01] MEDS: Donepezil HCl 10 MG TABLET PO (20:22)
--- NOTE | 2023-09-01 21:40 | P.PNPSI_ITS ---
Subjective Subjective Date of Service: 09/01/23 Reason For Visit: Major depression with psychotic features Subjective Notes: Conditional Voluntary Interim History: Patient seen in psychiatric follow-up the patient's mood pleasant full affect when seen some anxiety in the morning Otherwise looking forward to discharge mood stable continues to care for grooming and toileting Medication Compliance: Yes Review of Systems Acute medical concerns: No Mental Status Exam Mental Status Exam Narrative: Patient is alert cooperative future oriented casually dressed appropriately groomed. Ambulating independently. Mood euthymic affect some anxiety no hallucinations or delusional material no SI or HI some degree of poverty of content no hallucination judgment intact impulse control intact Diagnostics Vital Signs (24Hr): Vital Signs - 24 hr 09/01/23 06:00 09/01/23 14:28 09/01/23 18:00 Temperature 96.6 F L 96.8 F Pulse Rate 82 92 63 Respiratory Rate 18 18 Blood Pressure 162/70 H 125/74 122/58 L Pulse Oximetry 96 96 Oxygen Delivery Method Room Air Room Air BMI result Body Mass Index 25.5 Labs 07/16/23 10:34 07/17/23 08:12 Medications Medications Current Medications Acetaminophen (Acetaminophen 325 Mg Tablet) 650 mg PO Q6H PRN PRN Reason: Headache/Pain Mild Scale (1-3) Last Admin: 08/16/23 21:01 Dose: 650 mg Al Hydroxide/Mg Hydroxide (Magnesium Hydrox/Alum Hydrox 30 Ml Oral.Susp) 30 ml PO Q6H PRN PRN Reason: Heartburn/Nausea Al Hydroxide/Mg Hydroxide (Magnesium Hydrox/Alum Hydrox 30 Ml Oral.Susp) 30 ml PO Q6H PRN PRN Reason: Heartburn/Nausea Donepezil HCl (Donepezil Hcl 10 Mg Tablet) 10 mg PO BEDTIME [facility] Last Admin: 09/01/23 20:22 Dose: 10 mg Folic Acid (Folic Acid 1 Mg Tablet) 1 mg PO DAILY [facility] Last Admin: 09/01/23 07:58 Dose: 1 mg Ibuprofen (Ibuprofen 200 Mg Tablet) 200 mg PO Q6H PRN PRN Reason: Pain, Moderate(Pain Scale 4-6) Last Admin: 08/20/23 17:57 Dose: 200 mg Lorazepam (Lorazepam 0.5 Mg Tablet) 0.5 mg PO BID [facility] Last Admin: 09/01/23 20:22 Dose: 0.5 mg Magnesium Hydroxide (Milk Of Magnesia 30 Ml Oral.Susp) 30 ml PO DAILY PRN PRN Reason: Constipation Magnesium Hydroxide (Milk Of Magnesia 30 Ml Oral.Susp) 30 ml PO DAILY PRN PRN Reason: Constipation Melatonin (Melatonin 3 Mg Tablet) 6 mg PO BEDTIME PRN PRN Reason: Insomnia Last Admin: 09/01/23 20:22 Dose: 6 mg Memantine (Memantine Hcl 10 Mg Tablet) 10 mg PO BID [facility] Last Admin: 09/01/23 20:22 Dose: 10 mg Propranolol HCl (Propranolol Hcl 10 Mg Tablet) 10 mg PO TID [facility]; Protocol Last Admin: 09/01/23 20:22 Dose: 10 mg Quetiapine Fumarate (Quetiapine Fumarate 25 Mg Tablet) 25 mg PO BEDTIME MRX1 [facility] Last Admin: 09/01/23 21:04 Dose: Not Given Thiamine HCl (Thiamine Hcl 100 Mg Tablet) 100 mg PO BID [facility] Last Admin: 09/01/23 20:22 Dose: 100 mg Trazodone HCl (Trazodone Hcl 50 Mg Tablet) 50 mg PO BEDTIME MRX1 PRN PRN Reason: Insomnia Last Admin: 08/31/23 20:17 Dose: 50 mg Vortioxetine (Vortioxetine Hydrobromide 20 Mg Tablet) 20 mg PO DAILY [facility] Last Admin: 09/01/23 07:58 Dose: 20 mg Allergies Allergies Allergy/AdvReac Type Severity Reaction Status Date / Time risperidone [From Risperdal] Allergy Intermediate UNKNOWN Verified 05/12/23 13:13 Sulfa (Sulfonamide Allergy Intermediate rash Verified 05/12/23 13:13 Antibiotics) From BENADRYL Allergy Intermediate DIZZY Uncoded 02/14/23 11:47 Assessment & Plan Assessment & Plan (1) Major depressive disorder, recurrent severe without psychotic features: Status: Acute Code(s): F33.2 - Major depressive disorder, recurrent severe without psychotic features (2) Spondylosis without myelopathy or radiculopathy, lumbar region: Status: Acute Code(s): M47.816 - Spondylosis without myelopathy or radiculopathy, lumbar region (3) Insomnia: Qualifiers: Insomnia type: unspecified Qualified Code(s): G47.00 - Insomnia, unspecified Status: Acute Code(s): G47.00 - Insomnia, unspecified Plan This patient suffering from spondylosis of lumbar spine and multiple old compression fractures of the lumbar spine. There is tenderness on palpation in the projection of L1-L2 and L3 vertebras. She denies radiation of the pain. Most likely her pain is secondary to spondylosis and facet joint arthropathy. Due to her mental status I do not think that neuromodulation would be a good way of treating this patient's pain, this is why I offered to her therapeutic T12-L1 L2 L3 bilateral medial branch block. It is not clear for me whether the patient can sign her own consent. It is also remains to be seen whether she can tolerate the procedure without sedation. With history of psychotic depression she might not be able to stand still on the operating table without anesthesia assistance. We will schedule this procedure as soon as this issue will be clarified. 08/06/2023 Pain management note reviewed and appreciated. Patient remains depressed demoralized over not returning home does seem to understand situation and why it appears she can not. The patient generally is able to give consent however may need help to consent to above procedure need to clarify healthcare proxy issues 08/07/23 Will need to involve healthcare proxy and decision for surgery cont namena aricept less restlessness with vraylar d/c 08/08/23 CTP 08/09/23 CTP watch bp meds and bp - ? lower dosing 08/10/23 cont [id number] low dose seroquel lower clonidine 08/11/23 Cont beharioral plan of care d/c planning 08/12/2023 STARTED ON CEFTIN BURNING ON URINATION NOTED NO NOTED KIDNEY STONES ON RECENT PLAIN FILMS ENCOURAGE FLUIDS CONTINUE DISCHARGE PLANNING 08/13/2023 Continue discharge plan continue Ceftin 08/16/23 Continue current treatment plan discharge planning 08/17/23 CONTINUE TX PLAN 08/18/23 no changes continue treatment plan 08/19/2023 Continue plan of care discharge planning consider ECT patient had previously been on L methyl folate consider citocholine 08/20/2019 Continue plan of care discussed pain management options 08/21/2023 Continue plan of care also spoke with patient's 08/22/2023: Continue current regimen and plans 08/24/2023 Continue plan of care patient with flores affect seems to be functioning at a somewhat improved level patient's family reconsidering discharge options. Case reviewed with OT and social work. This needs extensive consideration prior discharge plan home went quickly awry 08/25/23 Patient with somewhat variable baseline. Some periods of improved mood and energy at other times more withdrawn flat and bed. Question if can be managed in home setting continue to evaluate. Patient's discussed talking with his family patient did have discrepancy in left and right arm blood pressures today reviewed with Dr. Silver no chest pain noted will follow otherwise continue plan of care 08/27/23 Pt seen case reviewed with staff pts mood stable h figuring out if he can take care of referrals made trying to involve family support 08/28/23 Patient seen psychiatric follow-up. Patient's mood stable patient remains calm future oriented some degree of poverty of content planning for discharge home 08/30/2023 Continue plan of care discharge planning. Flomax 08/31/23 d/c preparation simplify medication 09/01/2023 Continue plan of care continue discharge planning medications sent to pharmacy Reason for continued inpatient stay Substantial Risk for: inability to function and rapid decompensation Time Spent With Patient Time: Total time managing care of this patient today ____ minutes.
[2023-09-02 06:00] VITALS: BP 115/58; PULSE 61; RESP 18; TEMP 36.3; O2SAT 94
[2023-09-02] MEDS: Memantine HCl 10 MG TABLET PO ×2 (08:24→20:50)
[2023-09-02] MEDS: Thiamine HCL 100 MG TABLET PO ×2 (08:24→20:51)
[2023-09-02] MEDS: LORazepam 0.5 MG TABLET PO ×2 (08:24→20:50)
[2023-09-02] MEDS: Folic Acid 1 MG TABLET PO (08:24)
[2023-09-02] MEDS: Vortioxetine Hydrobromide 20 MG TABLET PO (08:24)
[2023-09-02] MEDS: Propranolol HCL 10 MG TABLET PO ×3 (08:24→20:50)
--- NOTE | 2023-09-02 12:38 | MHC.CLN ---
F/U DIET=REGULAR. MAGIC CUP BID TO INCREASE NUTRITIONAL INTAKE. PROVIDES 580 KCALS, 18 G PROTEIN. INTAKE USUALLY GOOD. FOLLOW FOR INTAKE AND WEIGHT. RD TO FOLLOW WEEKLY.
[2023-09-02 14:00] VITALS: BP 143/70; PULSE 80; RESP 18; TEMP 36.2; O2SAT 98
[2023-09-02 18:00] VITALS: BP 141/75; PULSE 69; RESP 18; TEMP 36; O2SAT 95
[2023-09-02] MEDS: Donepezil HCl 10 MG TABLET PO (20:50)
[2023-09-02] MEDS: QUEtiapine Fumarate 25 MG TABLET PO ×2 (20:51→22:18)
[2023-09-02] MEDS: traZODone HCL 50 MG TABLET PO (20:51)
[2023-09-03 07:38] VITALS: BP 130/67; PULSE 108; RESP 18; TEMP 36.9; O2SAT 97
[2023-09-03] MEDS: Folic Acid 1 MG TABLET PO (08:03)
[2023-09-03] MEDS: Vortioxetine Hydrobromide 20 MG TABLET PO (08:04)
[2023-09-03] MEDS: Propranolol HCL 10 MG TABLET PO (08:04)
[2023-09-03] MEDS: LORazepam 0.5 MG TABLET PO (08:04)
[2023-09-03] MEDS: Thiamine HCL 100 MG TABLET PO (08:04)
[2023-09-03] MEDS: Memantine HCl 10 MG TABLET PO (08:04)
[2023-09-03 08:54] VITALS: BMI 25.2
--- NOTE | 2023-09-03 10:09 | P.DS_ITS ---
DS: Providers Provider Date of Service: 09/03/23 Date of admission: 07/16/23 13:47 Date of discharge: 09/03/23 Primary care physician: Unknown Physician Attending physician on admission: Broderick Willett Consults: 07/20/23 21:55 Consult to Hospitalist Routine Comment: Consulting Provider: Hospitalist Reason For Exam: advice regarding o 2 at hs see past resp eval 08/04/23 12:46 Consult to Pain Management Routine Consulting Provider: Naveen Avina Reason for consultation: HX VERTEBROPLASTY CHONIC BACK PAIN INTERFERING QOL Has provider been notified: No Attending physician on discharge: Broderick Willett Discharging clinician: Broderick Willett DS: Diagnosis Discharge Diagnosis (1) Major depressive disorder, recurrent severe without psychotic features: Status: Acute (2) Spondylosis without myelopathy or radiculopathy, lumbar region: Status: Acute (3) Insomnia: Status: Acute (4) POONAM (generalized anxiety disorder): Status: Acute (5) Dementia: Status: Acute DS: Medications Discharge Medications Home Medications: Previous Rx's Medication Instructions Recorded acetaminophen 325 mg tablet 650 mg (2 x 325 mg) PO Q6H PRN 06/14/23 Headache/Pain Mild Scale (1-3) #0 tabs aluminum-magnesium hydroxide 200 30 ml PO Q6H PRN Heartburn/Nausea 06/14/23 mg-200 mg/5 mL oral suspension #0 mL (MAG-AL) magnesium hydroxide 400 mg/5 mL 30 ml PO DAILY PRN Constipation #0 06/14/23 oral suspension (Milk of Magnesia) mL donepezil 10 mg tablet 10 mg PO BEDTIME 30 days #30 tabs 09/01/23 folic acid 1 mg tablet 1 mg PO DAILY #90 tabs 09/01/23 ibuprofen 200 mg tablet 200 mg PO Q6H PRN Pain, 09/01/23 Moderate(Pain Scale 4-6) #90 tabs lidocaine 4 % topical patch 1 patch transdermal DAILY 30 days 09/01/23 (Lidocaine Pain Relief) #30 ea lorazepam 0.5 mg tablet 0.5 mg PO BID Anxiety 30 days #60 09/01/23 tabs melatonin 5 mg capsule 5 mg PO BEDTIME #30 caps 09/01/23 memantine 10 mg tablet 10 mg PO BID 90 days #180 tabs 09/01/23 propranolol 10 mg tablet 10 mg PO TID 90 days #270 tabs 09/01/23 quetiapine 25 mg tablet 25 mg PO DIRECTED 30 days #60 09/01/23 tabs thiamine mononitrate (vit B1) 100 100 mg PO BID #60 tabs 09/01/23 mg tablet trazodone 50 mg tablet 50 mg PO BEDTIME PRN Insomnia 90 09/01/23 days #90 tabs vortioxetine 20 mg tablet 20 mg PO DAILY 90 days #90 tabs 09/01/23 (Trintellix) Mental Status Exam Mental Status Exam Narrative: Patient is alert cooperative future oriented casually dressed appropriately groomed. Ambulating independently. Mood euthymic affect some anxiety no hallucinations or delusional material no SI or HI some degree of poverty of content no hallucination judgment intact impulse control intact Data Data Completed and Pending Completed studies during hospitalization [Text1]: 08/12/23 12:33 Urine clean catch - Urine medina top Urine Culture - Final Proteus mirabilis 07/16/23 Unknown Urine clean catch - Urine medina top Urine Culture - Final DS: Summary Hospital Course Hospital Course: Signed Patient: Judy Rodrigues MR#: [id number] : 1950 Acct:[id number] Age/Sex: 72 / F Loc: [id number].PGERI 175-[address]: Noé Aly cc: Broderick Willett MD~ HPI Date of Service: 07/17/23 Chief Complaint: Major depression with psychotic features Sources of Information: patient interviewed, chart reviewed and crisis/core team assessment reviewed Additional Sources of Information: Spoke with and stepson Patient seen and evaluated 07/17/2023 10:30 am HPI Subjective Notes: Conditional Voluntary Guardianship: No Medical Problems Affecting Mental Status: Yes (UTI recent ECT) Narrative: The patient was discharged from the psychiatric unit after an extensive admission on 07/14/2023. The patient has had a significant cognitive decline over the past 2-3 months some of which may relate to her refusing medication for a period of time including Aricept and Namenda and was treated for a psychotic depression. Ultimately she was taken off caplyta and doxepin and eventually responded to a combination of Vraylar Trintellix in a brief course of unilateral ECT. The patient was flat but future oriented at the time of discharge. Unfortunately she and her were unable to pick pack worker her medication there appeared to be some insurance change and patient previously had been able to self medicate. She did have some problems with ambulation. She was seen the day after discharge with her and stepson arrangements were made have more intensive out region support patient became increasingly confused periods of agitation depression and was referred for inpatient psychiatric readmission She has a long history of treatment resistant depression question mixed states in the past has required ECT intermittently Past Psychiatric History: Patient with long history of recurrent depression with multiple prior psychiatric hospitalizations. 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 no classic bipolar symptoms past depr essive psychotic episodes not for a number of years Medical Evaluation Reviewed: Yes UTI recent tachycardia restart clonidine restart beta-theresa [facility] Medical History (Updated 07/17/23 @ 16:45 by Broderick Willett MD) Nocturnal hypoxia Dementia Severe recurrent major depression w/psychotic features, mood-congruent Has daytime drowsiness Preoperative examination Elevated glucose Screening for colon cancer Screening for diabetes mellitus Obesity (BMI 30-39.9) Confused but orients easily Depression, major, severe recurrence Abnormal serum protein electrophoresis Mild recurrent major depression Anxiety and depression Encounter for Medicare annual wellness exam Removal of nell Depression with anxiety Abdominal distention Weight gain Major depression, recurrent, full remission POONAM (generalized anxiety disorder) Hypothyroidism Hyperparathyroidism Multinodular thyroid Vitamin D deficiency Osteoporosis Surgical History Hx of colonoscopy Hx of kyphoplasty Hx of section Family History: Depression Social History: Patient disabled has 1 son. Chronic anxiety has an intermittent difficult relationship with her mostly has not worked Substance History: None noted Trauma History: None noted Diagnostics Vital Signs (24Hr): Vital Signs - 24 hr 07/16/23 18:00 07/17/23 06:00 Temperature 98.1 F 97.2 F Pulse Rate 94 91 Respiratory Rate 17 18 Blood Pressure 122/65 122/66 Pulse Oximetry 96 96 Oxygen Delivery Method Room Air Room Air BMI result Body Mass Index 26.0 Labs 07/16/23 10:34 document embedded image 07/17/23 08:12 document embedded image Labs: Laboratory Results - last 48 hr 07/16/23 07/16/23 07/17/23 10:30 10:34 08:12 WBC 13.9 H RBC 4.87 Hgb 14.7 Hct 44.9 MCV 92.2 MCH 30.2 MCHC 32.7 RDW 15.9 Plt Count 437 H D MPV 9.5 Immature Gran % (Auto) 0.9 H Neut % (Auto) 86.1 H Lymph % (Auto) 7.4 L [place] % (Auto) 5.2 Eos % (Auto) 0.0 Baso % (Auto) 0.4 Lymph # (Auto) 1.0 L [place] # (Auto) 0.7 Eos # (Auto) 0.0 Baso # (Auto) 0.1 Abs Immat Gran (auto) 0.12 H Absolute Neuts (auto) 12.0 H Absolute Nucleated RBC 0.000 Nucleated RBC % (auto) 0.0 Sodium 139 137 Potassium 4.1 4.3 Chloride 103 101 Carbon Dioxide 25 22 Anion Gap 15 18 BUN 13 11 Creatinine 0.89 0.88 Estim Creat Clear Calc 45.8 51.6 Estimated GFR > 60 > 60 Random Glucose 160 H Fasting Glucose 131 H Calcium 10.1 9.8 Magnesium 1.9 Total Bilirubin 0.3 0.5 Direct Bilirubin 0.1 AST 16 21 ALT 22 24 Alkaline Phosphatase 86 83 Total Protein 7.5 7.3 Albumin 3.7 3.5 Triglycerides 120 Cholesterol 187 LDL Cholesterol, Calc 117 H HDL Cholesterol 46 TSH 2.05 Urine Color Yellow Urine Appearance Cloudy Urine pH 6.5 Ur Specific [place] 1.015 Urine Protein Trace Urine Glucose (UA) Negative Urine Ketones Negative Urine Blood Negative Urine Nitrite Negative Ur Leukocyte Esterase Large (3+) H Urine RBC 0-2 Urine WBC >50 H Ur Squamous Epith Cells 6-10 Urine Bacteria 1+ Hyaline Casts 0-2 Urine Opiates Screen Not Detected Urine Fentanyl Screen Not Detected Ur Barbiturates Screen Not Detected Ur Phencyclidine Scrn Not Detected Ur Amphetamines Screen Not Detected U Benzodiazepines Scrn Not Detected Urine Cocaine Screen Not Detected U Marijuana (THC) Screen Not Detected Ethyl Alcohol < 10 COVID-19 (EMILIANA) Negative COVID-19 Clin Com See Note Meds/Allergies Allergies Allergies Allergy/AdvReac Type Severity Reaction Status Date / Time risperidone [From Risperdal] Allergy Intermediate UNKNOWN Verified 05/12/23 13:13 Sulfa (Sulfonamide Allergy Intermediate rash Verified 05/12/23 13:13 Antibiotics) From BENADRYL Allergy Intermediate DIZZY Uncoded 02/14/23 11:47 Mental Status Exam Mental Status Exam Narrative: Pt is alert and oriented; behavior is cooperative, but with also some disorganization; calm; patient is not in distress; dressed in casual attire with unkempt hair but adequate hygiene; mood is described as depressedand affect congruent blunted; eye contact appropriate; Speech slowed, volume and prosody and not pressured; some psychomotor retardation present; thought process slowed more organized some perplexity some poverty of content; Thought content not clear exactly what happened at home; no paranoia; no expressed SI/HI. Difficulty with short-term memory Seems perplexed does know that she has on a psychiatric unit that she has a psychiatric illness that she is being treated by Dr. Willett knows the year and the month home address that she is at [facility] some difficulty with balance and ambulation mood depressed constricted no SI Judgement: Fair Assessment & Plan Assessment & Plan (1) Major depressive disorder, recurrent severe without psychotic features: Status: Acute Code(s): F33.2 - Major depressive disorder, recurrent severe without psychotic features (2) POONAM (generalized anxiety disorder): Status: Acute Code(s): F41.1 - Generalized anxiety disorder (3) Acute UTI: Status: Acute Code(s): N39.0 - Urinary tract infection, site not specified Assessment and Plan: On antibiotics Plan Patient requires inpatient treatment for safety and stabilization depressed confused will change clonidine to p.o. Namenda and Aricept recently restarted consider increase Trintellix to 20 mg has been increased to 10 mg continue Vraylar 1.5 mg monitor for akathisia propranolol should help with those failed trial of caplyta Patient has had a clear deterioration in mentation cognition and memory some of this may relate to UTI and recent ECT would benefit from retesting initial [place] quite decreased may also do better testing in Somali OT evaluation PT will get medical clearance for ECT given patient's cognitive changes question of hypoxia at night re-evaluate need for nighttime O2 will get hospitalist consult Patient educated on: diagnosis and medication risk/benefits Guardian/Caregiver educated on: diagnosis, medication risk/benefits and medical condition Informed Consent: further education needed Reason for continued inpatient stay Substantial Risk for: inability to function and rapid decompensation Statement Statement: I have reviewed the history and physical and performed a pertinent examination on my patient. No changes have occurred unless specified. If the History and Physical was not performed prior to admission, the Hospitalist's service will be consulted for completing the admission physical. Time Spent With Patient Time: Total time managing care of this patient today _50___ minutes. HOSPITAL COURSE THE PATIENT WAS ADMITTED AFTER A failed discharge the patient was readmitted she was depressed cognitively dulled having difficulties with ADL motivation and energy and was somewhat hopeless helpless. Attempts were made with the patient's and family members to see if additional services could be set up that would help with medication be able to help caring for the patient at home and became clear after while that the patient's felt overwhelmed the patient had suffered a clear cognitive decline over the past few months that required much more attention. Previously she had been able to maintain her own medication. Patient requires inpatient treatment for safety and stabilization depressed confused will change clonidine to p.o. Namenda and Aricept recently restarted consider increase Trintellix to 20 mg has been increased to 10 mg continue Vraylar 1.5 mg monitor for akathisia propranolol should help with those failed trial of caplyta Patient has had a clear deterioration in mentation cognition and memory some of this may relate to UTI and recent ECT would benefit from retesting initial [place] quite decreased may also do better testing in Somali OT evaluation PT will get medical clearance for ECT given patient's cognitive changes question of hypoxia at night re-evaluate need for nighttime O2 will get hospitalist consult 07/20/23 Poor cognition much worse past 3 months ? hypoxia at hs inc vraylar inc trintellix ? o 2 at hs 07/21/23 Pt s h feels he will not e able to take care of pt she remains depressed withdrawn vraylar inc to 3 mg daily 07/22/2023 Patient flat depressed has tentatively accepted possibility of shelter facility referral did not think her son in [place] would be very helpful in this situation 07/23/22 pt depressed withdrawn poor mentation inc trintellix 15 . 07/28/22 cont vraylar trintellix needs much reassurance d/c planning This health technical writer did have some hope that with restarting Namenda and Aricept which the patient had refused for a period of time might help eventually re stabilize the patient who had been refusing all medication previously when in a psychotic state There were no psychotic symptoms during this hospitalization but she was quite demoralized depressed But was reassured by her 's generally daily visits. There was a lot of work on trying to get the patient on [facility] shelter facility this did take an extended period of time and the family did help with some the financial pieces. 08/06/2023 Pain management note reviewed and appreciated. Patient remains depressed demoralized over not returning home does seem to understand situation and why it appears she can not. The patient generally is able to give consent however may need help to consent to above procedure need to clarify healthcare proxy issues 08/07/23 Will need to involve healthcare proxy and decision for surgery cont namena aricept less restlessness with vraylar d/c 08/08/23 CTP 08/09/23 CTP watch bp meds and bp - ? lower dosing 08/10/23 cont [id number] low dose seroquel lower clonidine 08/11/23 Cont beharioral plan of care d/c planning 08/12/2023 STARTED ON CEFTIN BURNING ON URINATION NOTED NO NOTED KIDNEY STONES ON RECENT PLAIN FILMS ENCOURAGE FLUIDS CONTINUE DISCHARGE PLANNING 08/13/2023 Continue discharge plan continue Ceftin 08/16/23 Continue current treatment plan discharge planning 08/17/23 CONTINUE TX PLAN 08/18/23 no changes continue treatment plan 08/19/2023 Continue plan of care discharge planning consider ECT patient had previously been on L methyl folate consider citocholine 08/20/2019 Continue plan of care discussed pain management options 08/21/2023 Continue plan of care also spoke with patient's 08/22/2023: Continue current regimen and plans 08/24/2023 Continue plan of care patient with flores affect seems to be functioning at a somewhat improved level patient's family reconsidering discharge options. Case reviewed with OT and social work. This needs extensive consideration prior discharge plan home went quickly awry 08/25/23 Patient with somewhat variable baseline. Some periods of improved mood and energy at other times more withdrawn flat and bed. Question if can be managed in home setting continue to evaluate. Patient's discussed talking with his family patient did have discrepancy in left and right arm blood pressures today reviewed with Dr. Silver no chest pain noted will follow otherwise continue plan of care 08/27/23 Pt seen case reviewed with staff pts mood stable h figuring out if he can take care of referrals made trying to involve family support 08/28/23 Patient seen psychiatric follow-up. Patient's mood stable patient remains calm future oriented some degree of poverty of content planning for discharge home 08/30/2023 Continue plan of care discharge planning. Flomax 08/31/23 d/c preparation simplify medication 09/01/2023 Continue plan of care continue discharge planning medications sent to pharmacy The patient on a combination of Trintellix Namenda Aricept did begin to show extensive improvement in mood energy ambition and activity. She began to come out of her room much more and she and her had regular contacts which were going quite well. Eventually the did ask if perhaps his could go home as long as there were extensive services help with care medication and that the who had his own medical problems would not be overly burden to a degree he could not handle. Social work worked with [facility] to help set up outpatient support services for the patient and her and continue to be quite connected with each other and clearly the very much wanted the patient to come home she had a much flores affect was less withdrawn taking care of her grooming and self-care in significantly improved way Vraylar was discon tinued has appeared to cause significant akathisia the patient seems stable for discharge 328 was future oriented she and her were happy she was going home there was no psychosis no SI Should be noted that the patient did have a pain management consultation which did recommend an elective procedure for the patient's chronic back pain and this was recommended to be continued on an outpatient basis and we assessed by the patient and her Patient will be seen by this health technical writer Dr. Willett in outpatient psychiatric follow-up Status at Discharge Cognitive/behavioral status at discharge: Alert and oriented no gross confusion Functional status at discharge: independent ambulation Overall status at discharge: patient is not back to baseline (Significantly improved) Time Spent with Patient Time attestation: Total time managing care of this patient today ____ minutes. Discharge Plan Discharge Anticipated Discharge Date/Time: 09/03/23 11:01 Patient Disposition: Home Health Service Discharge Diagnosis: major depression recurrent with psychotic features Dementia Referrals: [facility] Home program [Other] - 09/03/23 ([facility] home care for personal care and homemaking as well as [facility] and weekly RN visits to begin following discharge. ) [facility] [Other] - 09/04/23 ([facility] to schedule time for home assessment following discharge. Yazan Alvarado will contact you on 09/04/23 and schedule home visit. ) [facility] [Other] - 09/04/23 ([facility] for medication teaching to begin on 09/04/23. ) Dr Middleton [Other] - 1 Week (The office will contact you to schedule a follow up appointment. ) Broderick Willett MD [Physician] - 09/17/23 1:30 pm () Discharge Medications: New ibuprofen 200 mg Tablet 200 mg PO Q6H PRN (Reason: Pain, Moderate(Pain Scale 4-6)) Qty: 90 2RF memantine 10 mg Tablet 10 mg PO BID 90 Days Qty: 180 1RF Trintellix 20 mg Tablet 20 mg PO DAILY 90 Days Qty: 90 1RF trazodone 50 mg Tablet 50 mg PO BEDTIME PRN (Reason: Insomnia) 90 Days Qty: 90 1RF propranolol 10 mg Tablet 10 mg PO TID 90 Days Qty: 270 1RF Protocol: Hold for SBP/HR < HOLD for SBP < : 90 HOLD for HR < : 60 Continued acetaminophen 325 mg Tablet 650 mg PO Q6H PRN (Reason: Headache/Pain Mild Scale (1-3)) Qty: 0 0RF magnesium hydroxide [Milk of Magnesia] 400 mg/5 mL Suspension 30 ml PO DAILY PRN (Reason: Constipation) Qty: 0 0RF MAG-AL 200-200 mg/5 mL Suspension 30 ml PO Q6H PRN (Reason: Heartburn/Nausea) Qty: 0 0RF quetiapine 25 mg Tablet 25 mg PO DIRECTED 30 Days Qty: 60 3RF Rx Instructions: 1 tab bedtime may take one extra tablets daily for severe anxiety/ insomnia lidocaine [Lidocaine Pain Relief] 4 % Adhesive Patch,Medicated 1 patch transdermal DAILY 30 Days Qty: 30 3RF Protocol: Apply to: Apply to: affected pain area donepezil 10 mg Tablet 10 mg PO BEDTIME 30 Days Qty: 30 3RF folic acid 1 mg tablet 1 mg PO DAILY Qty: 90 1RF thiamine mononitrate (vit B1) 100 mg Tablet 100 mg PO BID Qty: 60 3RF Changed lorazepam 0.5 mg Tablet 0.5 mg PO BID 30 Days Qty: 60 2RF melatonin 5 mg capsule 5 mg PO BEDTIME Qty: 30 3RF Discontinued clonidine 0.2 mg/24 hr Patch Weekly 0.2 mg transdermal We@0900 30 Days Qty: 4 3RF Protocol: Hold for SBP< HOLD for SBP < : 90 tamsulosin 0.4 mg Capsule 0.4 mg PO DAILY@1730 30 Days Qty: 30 3RF memantine [Namenda] 10 mg Tablet 10 mg PO BID 30 Days Qty: 60 3RF Trintellix 10 mg Tablet 10 mg PO DAILY 30 Days Qty: 30 3RF Vraylar 1.5 mg Capsule 1.5 mg PO DAILY 30 Days Qty: 30 3RF Discharge Orders: Discharge Order (Routine); Ordered 09/03/23 Ordered By: Broderick Willett Diet: Advance to usual diet Activity on Discharge: As tolerated Stand Alone Forms: Patient Portal Discharge page, Community Support Print Language: Somali Care Plan Goals: Stabilize mood maintain nutrition and self-care Health Concerns: Recurrent depression Memory disorder Chronic pain Low oxygen at night Hypertension Plan of Treatment: Psychiatric medication Trintellix low-dose lorazepam for anxiety trazodone for sleep Oxygen at night Follow-up with pain management Clinic dr Avina Assessment: Patient pleasant future oriented has been managing self-care dressing and feeding Discharge Date/Time: 09/03/23 11:15
== END 2023-09-03 11:15 | disposition home health service (06) | DRG 885 ==
LOC: HO.ED 11:01 → HO.PGERI 13:50
PROVIDERS: Psychiatry & Neurology Psychiatry; Admitting Provider Psychiatry & Neurology Psychiatry; Emergency Provider Emergency Medicine; Visit Provider Psychiatry & Neurology Psychiatry
DX: F33.3 Major depressive disorder, recurrent, severe with psychotic symptoms (principal); N39.0 Urinary tract infection, site not specified; F03.90 Unspecified dementia, unspecified severity, without behavioral disturbance, psychotic disturbance, mood disturbance, and anxiety; M47.816 Spondylosis without myelopathy or radiculopathy, lumbar region; G47.00 Insomnia, unspecified; E03.9 Hypothyroidism, unspecified; F41.1 Generalized anxiety disorder; Z20.822 Contact with and (suspected) exposure to COVID-19; Z79.899 Other long term (current) drug therapy
CPT/HCPCS: 36415; 80048; 80053; 80061; 80076; 80307; 81001; 83735; 84443; 85025; 87086; 87088; 87186; 87635; 92950; 93005; 99285; S9485

== ENCOUNTER → 2023-07-16 10:15 | Outpatient (BNV) | payer MEDICARE, MEDICAID, SELFPAY | PROVIDERS: Admitting Provider Psychiatry & Neurology Psychiatry; Emergency Provider Emergency Medicine; Visit Provider Internal Medicine | DX: R00.0 Tachycardia, unspecified (principal) | CPT/HCPCS: 93010 ==

== ENCOUNTER → 2023-07-16 13:47 | Outpatient (BNV) | payer MEDICARE, MEDICAID, SELFPAY | PROVIDERS: Admitting Provider Psychiatry & Neurology Psychiatry; Emergency Provider Emergency Medicine; Visit Provider Anesthesiology | DX: M47.816 Spondylosis without myelopathy or radiculopathy, lumbar region (principal); F33.2 Major depressive disorder, recurrent severe without psychotic features | CPT/HCPCS: 99222 ==

== ENCOUNTER → 2023-07-16 13:47 | Outpatient (BNV) | payer MEDICARE, MEDICAID, SELFPAY | PROVIDERS: Admitting Provider Psychiatry & Neurology Psychiatry; Emergency Provider Emergency Medicine; Visit Provider Psychiatry & Neurology Psychiatry | DX: F33.2 Major depressive disorder, recurrent severe without psychotic features (principal); F41.1 Generalized anxiety disorder; N39.0 Urinary tract infection, site not specified | CPT/HCPCS: 90792; 99231; 99232; 99239 ==

== ENCOUNTER → 2023-07-16 13:47 | Outpatient (BNV) | payer MEDICARE, MEDICAID, SELFPAY | PROVIDERS: Admitting Provider Psychiatry & Neurology Psychiatry; Emergency Provider Emergency Medicine; Visit Provider Clinical Nurse Specialist Psychiatric/Mental Health, Adult | DX: F33.2 Major depressive disorder, recurrent severe without psychotic features (principal); M47.816 Spondylosis without myelopathy or radiculopathy, lumbar region; G47.00 Insomnia, unspecified | CPT/HCPCS: 99231; 99232 ==

== ENCOUNTER 2023-09-17 13:26 | Outpatient (AMB) | payer MEDICARE, MEDICAID, SELFPAY ==
--- NOTE | 2023-09-17 17:39 | MHC.OFFVISPS ---
Intake Intake Visit Reasons: depression Allergies risperidone [From Risperdal] Allergy (Intermediate, Verified 05/12/23 13:13) UNKNOWN Sulfa (Sulfonamide Antibiotics) Allergy (Intermediate, Verified 05/12/23 13:13) rash From BENADRYL Allergy (Intermediate, Uncoded 02/14/23 11:47) DIZZY Medication List - Last Reconciled 09/21/23 by Broderick Willett MD acetaminophen 650 mg (2 x 325 mg) PO Q6H PRN aluminum-magnesium hydroxide 200-200 mg/5 mL (MAG-AL) 30 mL PO Q6H PRN donepezil 10 mg PO BEDTIME 30 days folic acid 1 mg PO DAILY ibuprofen 200 mg PO Q6H PRN lidocaine 4% (Lidocaine Pain Relief) 1 patch See Protocol transdermal DAILY 30 days lorazepam 0.5 mg PO BID 30 days magnesium hydroxide (Milk of Magnesia) 30 mL PO DAILY PRN melatonin 5 mg PO BEDTIME memantine 10 mg PO BID 90 days propranolol 10 mg See Protocol PO TID 90 days quetiapine 25 mg PO DIRECTED 30 days thiamine mononitrate (vit B1) 100 mg PO BID trazodone 50 mg PO BEDTIME PRN 90 days vortioxetine (Trintellix) 20 mg PO DAILY 90 days HPI- Psychiatric Chief Complaint: depression HPI Narrative: The the patient is seen with her they both appreciate that she has been able to go home she has been eating well doing self-care dressing and feeding herself. They do have supports and patient will be getting a med reminder Past Psychiatric History: Patient with long history of recurrent depression with multiple prior psychiatric hospitalizations. 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 no classic bipolar symptoms past depressive psychotic episodes not for a number of years Mental Status Exam Mental Status Exam Narrative: Patient is alert cooperative future oriented casually dressed appropriately groomed. Ambulating independently. 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 knows some of her medications appropriate behavior with her both seem pleased then connected Assessment and Plan Assessment & Plan (1) Major depression, recurrent, full remission: Status: Acute Code(s): F33.42 - Major depressive disorder, recurrent, in full remission (2) Dementia: Status: Acute Qualifiers: Dementia type: unspecified type Dementia severity: mild Dementia behavioral or psychological symptom: unspecified whether behavioral, psychotic, or mood disturbance or anxiety Qualified Code(s): F03.A0 - Unspecified dementia, mild, without behavioral disturbance, psychotic disturbance, mood disturbance, and anxiety Code(s): F03.90 - Unspecified dementia, unspecified severity, without behavioral disturbance, psychotic disturbance, mood disturbance, and anxiety (3) POONAM (generalized anxiety disorder): Status: Acute Code(s): F41.1 - Generalized anxiety disorder Plan Patient seems generally stable on a combination of propranolol lorazepam Trintellix Seroquel at bedtime patient has extensive supports in place doing well with her will be having med reminder not confused behavior appropriate alert Discussed option to go to pain management Counseling and coordination of Care Medication management counseling: Effectiveness, Side effects and Dosing range Diagnosis and Prognosis Counseling: Impact of diagnosis on life functions, Impact of family relationship and Adequacy of current interventions Details-Diagnosis/Prognosis counseling: Discussed with patient and her Details: I spent [38] minutes reviewing the record, seeing the patient and documenting in the medical record. Counseling provided to the patient/caregiver as outlined below. Addressed patient/caregiver concerns regarding current medication regime including effective adherence. Addressed patient/caregiver concerns regarding diagnosis and prognosis including accuracy of diagnosis, prognosis over time, impact of diagnosis. Addressed patient/caregiver concerns regarding impact of recent stressors. [facility] Medical History (Updated 09/11/23 @ 00:03 by Background Daemon) Dementia Nocturnal hypoxia Severe recurrent major depression w/psychotic features, mood-congruent Has daytime drowsiness Preoperative examination Elevated glucose Screening for colon cancer Screening for diabetes mellitus Obesity (BMI 30-39.9) Confused but orients easily Depression, major, severe recurrence Abnormal serum protein electrophoresis Mild recurrent major depression Anxiety and depression Encounter for Medicare annual wellness exam Removal of nell Depression with anxiety Abdominal distention Weight gain Major depression, recurrent, full remission POONAM (generalized anxiety disorder) Hypothyroidism Hyperparathyroidism Multinodular thyroid Vitamin D deficiency Osteoporosis Surgical History Hx of colonoscopy Hx of kyphoplasty Hx of section Family History Father Myocardial infarction CVD (cardiovascular disease) Mother Dementia Alzheimer disease Other Mental health disorder Social History Household Members: Spouse Housing: Apartment Do you presently have visiting nurse or other home services: No Alcohol intake: never Comment: 1:1 sitter at bedside Patient Tobacco Use Status: Never used Tobacco e-Cigarette/Vaping Use: Never Used Second Hand Smoke Exposure: No service: No Current occupational status: unemployed Sexual orientation: Straight/Heterosexual Cognitive needs: No Hearing needs: No Social History: Patient disabled has 1 son. Chronic anxiety has an intermittent difficult relationship with her mostly has not worked Substance History: None noted Trauma History: None noted Coding Level of Care Code Est Pt Level 3 (14160) Therapy 30m w/E&M (41660) Diagnoses Major depression, recurrent, full remission F33.42 Mild dementia, unspecified dementia type, unspecified whether behavioral, psychotic, or mood disturbance or anxiety F03.A0 Dementia type: unspecified type Dementia severity: mild Dementia behavioral or psychological symptom: unspecified whether behavioral, psychotic, or mood disturbance or anxiety POONAM (generalized anxiety disorder) F41.1
== END 2023-09-17 16:50 | disposition home or self-care (01) ==
LOC: HO.HOP 13:26
PROVIDERS: Visit Provider Psychiatry & Neurology Psychiatry
DX: F33.42 Major depressive disorder, recurrent, in full remission (principal); F03.A0 Unspecified dementia, mild, without behavioral disturbance, psychotic disturbance, mood disturbance, and anxiety; F41.1 Generalized anxiety disorder
CPT/HCPCS: 90833; 99213

== ENCOUNTER → 2023-09-17 13:26 | Outpatient (BNVA) | payer MEDICARE, OTHER, SELFPAY | PROVIDERS: Visit Provider Psychiatry & Neurology Psychiatry | DX: F33.42 Major depressive disorder, recurrent, in full remission (principal); F03.A0 Unspecified dementia, mild, without behavioral disturbance, psychotic disturbance, mood disturbance, and anxiety; F41.1 Generalized anxiety disorder | CPT/HCPCS: 99212 ==

== ENCOUNTER 2023-10-05 11:38 | Outpatient (AMB) | payer MEDICARE, MEDICAID, SELFPAY ==
--- NOTE | 2023-10-05 11:49 | MHC.OFFVIS ---
Vital Signs 10/05/23 11:58 Height 5 ft Weight 141 lb 4 oz BMI 27.6 BP 114/68 Blood Pressure Location Lt brachial Position Sitting Respiration 14 Pulse 68 Pulse Source Pulse Oximeter Pulse Oximetry (%) 97 Oxygen Delivery Method Room Air Intake Visit Reasons: follow up Intake Note: Patient comes in for follow up appointment. Reports pain 03/17. Allergies risperidone [From Risperdal] Allergy (Intermediate, Verified 10/05/23 11:58) UNKNOWN Sulfa (Sulfonamide Antibiotics) Allergy (Intermediate, Verified 10/05/23 11:58) rash From BENADRYL Allergy (Intermediate, Uncoded 02/14/23 11:47) DIZZY HPI Comments Details: Judy is very pleasant 73 years old female mostly Wallisian-speaking however with good grasp of [place] Irish. She was seen by me in the psychiatry unit when she was admitted for exacerbation of the depression. She was offered by then diagnostic T12-L1 L2 medial branch block to treat the lower thoracic upper lumbar pain of this patient. She came today to the office for the re-evaluation. I offered her again the same injection. She agreed to go for the procedure. I will schedule her for the diagnostic medial branch block as above, however the levels of the injection will be established after the examination under fluoroscopy. [facility] Medical History (Updated 09/11/23 @ 00:03 by Tasha Loyola) Dementia Nocturnal hypoxia Severe recurrent major depression w/psychotic features, mood-congruent Has daytime drowsiness Preoperative examination Elevated glucose Screening for colon cancer Screening for diabetes mellitus Obesity (BMI 30-39.9) Confused but orients easily Depression, major, severe recurrence Abnormal serum protein electrophoresis Mild recurrent major depression Anxiety and depression Encounter for Medicare annual wellness exam Removal of nell Depression with anxiety Abdominal distention Weight gain Major depression, recurrent, full remission POONAM (generalized anxiety disorder) Hypothyroidism Hyperparathyroidism Multinodular thyroid Vitamin D deficiency Osteoporosis Surgical History Hx of colonoscopy Hx of kyphoplasty Hx of section Family History Father Myocardial infarction CVD (cardiovascular disease) Mother Dementia Alzheimer disease Other Mental health disorder Social History Household Members: Spouse Housing: Apartment Do you presently have visiting nurse or other home services: No Alcohol intake: never Comment: 1:1 sitter at bedside Patient Tobacco Use Status: Never used Tobacco e-Cigarette/Vaping Use: Never Used Second Hand Smoke Exposure: No service: No Current occupational status: unemployed Sexual orientation: Straight/Heterosexual Cognitive needs: No Hearing needs: No Review of Systems Const All systems reviewed & are unremarkable except as noted in HPI and below Physical Exam Vital Signs: Last Vital Signs Pulse 68 10/05/23 11:58 Resp 14 10/05/23 11:58 BP 114/68 10/05/23 11:58 Pulse Ox 97 10/05/23 11:58 Oxygen Delivery Method Room Air 10/05/23 11:58 BMI result Body Mass Index 27.6 Last Vital Signs Temp 97.7 F 08/05/23 08:50 Pulse 70 08/05/23 08:50 Resp 17 08/05/23 08:50 BP 113/78 08/05/23 08:50 Pulse Ox 96 08/05/23 08:50 O2 Del Method Room Air 08/05/23 08:50 BMI result Body Mass Index 26.0 Const General: no acute distress Eyes General: appearance normal, both eyes and all related structures EOM: EOMs intact bilaterally Neck Neck: Yes full ROM Chest Chest palpation & inspection: normal inspection of the chest Resp Effort & Inspection: normal respiratory effort, able to speak in complete sentences, normal respiratory pattern, no audible wheezes and no cough Cardio Jugular venous distension: no JVD GI Inspection: Yes normal to inspection Back/Spine/Pelvis Other: Shuffling gait, denies radiation of the pain into bilateral lower extremities. Denies lower extremities weakness or numbness. Tenderness on palpation in the projection of T12-L1 and L2 vertebra. Extrem General: No pedal edema Psych Appearance: grossly normal Mental Status: mental status grossly normal Speech and movement: Clear speech present Affect: Indifferent affect present Attitude: cooperative Thought content: Normal thought content present Insight: Fair insight present (Psych) Judgement: Fair judgement present (Psych) Assessment & Plan Assessment & Plan (1) Spondylosis without myelopathy or radiculopathy, lumbar region: Code(s): M47.816 - Spondylosis without myelopathy or radiculopathy, lumbar region Category: Medical (2) Dementia: Code(s): F03.90 - Unspecified dementia, unspecified severity, without behavioral disturbance, psychotic disturbance, mood disturbance, and anxiety Category: Medical Qualifiers: Dementia type: unspecified type Dementia severity: mild Dementia behavioral or psychological symptom: unspecified whether behavioral, psychotic, or mood disturbance or anxiety Qualified Code(s): F03.A0 - Unspecified dementia, mild, without behavioral disturbance, psychotic disturbance, mood disturbance, and anxiety Plan I will schedule this patient for diagnostic medial branch block T12-L1 L2 with possible change of the level depending on the results of the fluoroscopic examination. We will see this patient again after the procedure and we will discuss the possibilities of further treatment. Coding Level of Care Code Est Pt Level 3 (29604) Diagnoses Spondylosis without myelopathy or radiculopathy, lumbar region M47.816 Mild dementia, unspecified dementia type, unspecified whether behavioral, psychotic, or mood disturbance or anxiety F03.A0 Dementia type: unspecified type Dementia severity: mild Dementia behavioral or psychological symptom: unspecified whether behavioral, psychotic, or mood disturbance or anxiety
[2023-10-05 11:58] VITALS: BP 114/68; PULSE 68; RESP 14; O2SAT 97; BMI 27.6
== END 2023-10-05 12:06 | disposition home or self-care (01) ==
PROVIDERS: PCP Internal Medicine; Visit Provider Anesthesiology
DX: M47.816 Spondylosis without myelopathy or radiculopathy, lumbar region (principal); F03.A0 Unspecified dementia, mild, without behavioral disturbance, psychotic disturbance, mood disturbance, and anxiety
CPT/HCPCS: 99213

== ENCOUNTER → 2023-10-05 11:38 | Outpatient (BNVA) | payer MEDICARE, MEDICAID, SELFPAY | PROVIDERS: PCP Internal Medicine; Visit Provider Anesthesiology | DX: M47.816 Spondylosis without myelopathy or radiculopathy, lumbar region (principal); F03.A0 Unspecified dementia, mild, without behavioral disturbance, psychotic disturbance, mood disturbance, and anxiety | CPT/HCPCS: 99212 ==

== ENCOUNTER 2023-10-14 16:30 | Outpatient (AMB) | payer MEDICARE, MEDICAID, SELFPAY ==
--- NOTE | 2023-10-14 11:36 | A.OFFPSYCH_ITS ---
Intake Intake Visit Reasons: depression Allergies risperidone [From Risperdal] Allergy (Intermediate, Verified 10/05/23 11:58) UNKNOWN Sulfa (Sulfonamide Antibiotics) Allergy (Intermediate, Verified 10/05/23 11:58) rash From BENADRYL Allergy (Intermediate, Uncoded 02/14/23 11:47) DIZZY HPI- Psychiatric Chief Complaint: depression HPI Narrative: Patient seen psychiatric follow-up with her . She has been more withdrawn and depressed. states she has low motivation difficulty getting out of bed does not go for walks has difficulty with appetite. She has been on Trintellix. Past Psychiatric History: Patient with long history of recurrent depression with multiple prior psychiatric hospitalizations. 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 no classic bipolar symptoms past depressive psychotic episodes not for a number of years Mental Status Exam Mental Status Exam Patient Appearance: Well Grooomed and Fatigued Patient Orientation: Person, Place, Time and Situation Level of Consciousness: Awake and Appropriate Mood Description: Depressed and Blunted Affect Description: Appropriate and Constricted Patient Cognition Impaired: No Ability to Follow Directions: Good Speech Pattern: Clear and Soft-Spoken Memory Description: Intact Hallucinations: None Delusions: Not Present Thought Process: Intact and Goal Oriented Thought Content: positive for Goal Oriented, positive for Poverty of Content, positive for Preoccupation, positive for Slowed Thinking, negative for Suicidal Ideation or negative for Homicidal Ideation Depressive Symptoms: Increased Anxiety, Increased Irritability, Hopelessness, Increased Fatigue, Loss of Energy and Difficulty Concentrating Judgement: Fair Judgement and Insight: Encouraged to get out of bed more walk discussed the addition of mirtazapine for augmentation and insomnia patient needs more energy in the morning and light exposure Assessment and Plan Assessment & Plan (1) Major depressive disorder, recurrent severe without psychotic features: Status: Acute Code(s): F33.2 - Major depressive disorder, recurrent severe without psychotic features (2) POONAM (generalized anxiety disorder): Status: Acute Code(s): F41.1 - Generalized anxiety disorder Plan Patient has failed TMS previously was on latuda caplyta vraylar previous start mirtazapine have tried to send L methyl folate risks benefits alternatives reviewed patient seen with her who remains quite supportive Medications: New mirtazapine 7.5 mg PO BEDTIME 30 tabs 1RF Counseling and coordination of Care Pt. Self Management counseling: Med illness tx adherence and Behavior activation Details-Self Mgmt counseling: Patient is getting some supportive services she and her are getting along well Medication management counseling: Effectiveness and Side effects Diagnosis and Prognosis Counseling: Adequacy of current interventions Details: I spent [38] minutes reviewing the record, seeing the patient and documenting in the medical record. Counseling provided to the patient/caregiver as outlined below. Addressed patient/caregiver concerns regarding current medication regime including effective adherence. Addressed patient/caregiver concerns regarding diagnosis and prognosis including accuracy of diagnosis, prognosis over time, impact of diagnosis. Addressed patient/caregiver concerns regarding impact of recent stressors. [facility] Medical History (Updated 10/24/23 @ 22:25 by Broderick Willett MD) Dementia Nocturnal hypoxia Severe recurrent major depression w/psychotic features, mood-congruent Has daytime drowsiness Preoperative examination Elevated glucose Screening for colon cancer Screening for diabetes mellitus Obesity (BMI 30-39.9) Confused but orients easily Depression, major, severe recurrence Abnormal serum protein electrophoresis Mild recurrent major depression Anxiety and depression Encounter for Medicare annual wellness exam Removal of nell Depression with anxiety Abdominal distention Weight gain Major depression, recurrent, full remission POONAM (generalized anxiety disorder) Hypothyroidism Hyperparathyroidism Multinodular thyroid Vitamin D deficiency Osteoporosis Surgical History Hx of colonoscopy Hx of kyphoplasty Hx of section Family History Father Myocardial infarction CVD (cardiovascular disease) Mother Dementia Alzheimer disease Other Mental health disorder Social History Household Members: Spouse Housing: Apartment Do you presently have visiting nurse or other home services: No Alcohol intake: never Comment: 1:1 sitter at bedside Patient Tobacco Use Status: Never used Tobacco e-Cigarette/Vaping Use: Never Used Second Hand Smoke Exposure: No service: No Current occupational status: unemployed Sexual orientation: Straight/Heterosexual Cognitive needs: No Hearing needs: No Social History: Patient disabled has 1 son. Chronic anxiety has an intermittent difficult relationship with her mostly has not worked Substance History: None noted Trauma History: None noted Coding Level of Care Code Est Pt Level 3 (05756) Therapy 30m w/E&M (90650) Diagnoses Major depressive disorder, recurrent severe without psychotic features F33.2 POONAM (generalized anxiety disorder) F41.1
== END 2023-10-14 16:31 | disposition home or self-care (01) ==
LOC: HO.HOP 16:31
PROVIDERS: PCP Internal Medicine; Visit Provider Psychiatry & Neurology Psychiatry
DX: F33.2 Major depressive disorder, recurrent severe without psychotic features (principal); F41.1 Generalized anxiety disorder
CPT/HCPCS: 90833; 99213

== ENCOUNTER → 2023-10-14 16:30 | Outpatient (BNVA) | payer MEDICARE, OTHER, SELFPAY | PROVIDERS: PCP Internal Medicine; Visit Provider Psychiatry & Neurology Psychiatry | DX: F33.2 Major depressive disorder, recurrent severe without psychotic features (principal); F41.1 Generalized anxiety disorder | CPT/HCPCS: 99212 ==

== ENCOUNTER 2023-10-21 14:42 | Outpatient (AMB) | payer MEDICARE, MEDICAID, SELFPAY ==
--- NOTE | 2023-10-21 22:54 | MHC.OFFVISPS ---
Intake Intake Visit Reasons: depression Allergies risperidone [From Risperdal] Allergy (Intermediate, Verified 10/05/23 11:58) UNKNOWN Sulfa (Sulfonamide Antibiotics) Allergy (Intermediate, Verified 10/05/23 11:58) rash From BENADRYL Allergy (Intermediate, Uncoded 02/14/23 11:47) DIZZY HPI- Psychiatric Chief Complaint: depression HPI Narrative: Patient seen psychiatric follow-up. She was seen last week and started on mirtazapine 7.5 mg. Patient continues to be depressed with low energy poor appetite. No physical symptoms she is lethargic with no interest in anything. No hallucinations or delusional material she and her are getting along well Past Psychiatric History: Patient with long history of recurrent depression with multiple prior psychiatric hospitalizations. 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 no classic bipolar symptoms past depressive psychotic episodes not for a number of years Mental Status Exam Mental Status Exam Patient Appearance: Well Grooomed Patient Orientation: Person, Place, Time and Situation Level of Consciousness: Awake and Appropriate Mood Description: Depressed and Blunted Affect Description: Appropriate and Constricted Patient Cognition Impaired: No Ability to Follow Directions: Good Speech Pattern: Clear Memory Description: Intact Hallucinations: None Delusions: Not Present Thought Process: Intact and Goal Oriented Thought Content: positive for Goal Oriented, positive for Poverty of Content, positive for Preoccupation, positive for Slowed Thinking, negative for Suicidal Ideation or negative for Homicidal Ideation Depressive Symptoms: Increased Anxiety, Increased Irritability, Hopelessness, Increased Fatigue, Loss of Energy and Difficulty Concentrating Judgement: Good Assessment and Plan Assessment & Plan (1) Major depressive disorder, recurrent severe without psychotic features: Status: Acute Code(s): F33.2 - Major depressive disorder, recurrent severe without psychotic features (2) POONAM (generalized anxiety disorder): Status: Acute Code(s): F41.1 - Generalized anxiety disorder Plan The patient has relapsed into depression increase mirtazapine to 15 mg start Rexulti 0.5 mg daily no hallucinations or delusional material Patient has cycled into depression not psychotic commands by God or the devil to not eat or not take medication no burning on urination encourage daily walk improve nutrition consider hospitalization if needed she and her are getting along okay she does have visiting nurse Medications: New brexpiprazole (Rexulti) 0.5 mg PO DAILY 30 tabs 1RF Changed From mirtazapine 7.5 mg PO BEDTIME 30 tabs 1RF To mirtazapine 15 mg PO BEDTIME 30 tabs 1RF Counseling and coordination of Care Details: I spent [] minutes reviewing the record, seeing the patient and documenting in the medical record. Counseling provided to the patient/caregiver as outlined below. Addressed patient/caregiver concerns regarding current medication regime including effective adherence. Addressed patient/caregiver concerns regarding diagnosis and prognosis including accuracy of diagnosis, prognosis over time, impact of diagnosis. Addressed patient/caregiver concerns regarding impact of recent stressors. [facility] Medical History (Updated 09/11/23 @ 00:03 by Background Dachivo) Dementia Nocturnal hypoxia Severe recurrent major depression w/psychotic features, mood-congruent Has daytime drowsiness Preoperative examination Elevated glucose Screening for colon cancer Screening for diabetes mellitus Obesity (BMI 30-39.9) Confused but orients easily Depression, major, severe recurrence Abnormal serum protein electrophoresis Mild recurrent major depression Anxiety and depression Encounter for Medicare annual wellness exam Removal of nell Depression with anxiety Abdominal distention Weight gain Major depression, recurrent, full remission POONAM (generalized anxiety disorder) Hypothyroidism Hyperparathyroidism Multinodular thyroid Vitamin D deficiency Osteoporosis Surgical History Hx of colonoscopy Hx of kyphoplasty Hx of section Family History Father Myocardial infarction CVD (cardiovascular disease) Mother Dementia Alzheimer disease Other Mental health disorder Social History Household Members: Spouse Housing: Apartment Do you presently have visiting nurse or other home services: No Alcohol intake: never Comment: 1:1 sitter at bedside Patient Tobacco Use Status: Never used Tobacco e-Cigarette/Vaping Use: Never Used Second Hand Smoke Exposure: No service: No Current occupational status: unemployed Sexual orientation: Straight/Heterosexual Cognitive needs: No Hearing needs: No Social History: Patient disabled has 1 son. Chronic anxiety has an intermittent difficult relationship with her mostly has not worked Substance History: None noted Trauma History: None noted Coding Level of Care Code Est Pt Level 4 (20793) Diagnoses Major depressive disorder, recurrent severe without psychotic features F33.2 POONAM (generalized anxiety disorder) F41.1
== END 2023-10-21 15:13 | disposition home or self-care (01) ==
LOC: HO.HOP 14:42
PROVIDERS: Visit Provider Psychiatry & Neurology Psychiatry
DX: F33.2 Major depressive disorder, recurrent severe without psychotic features (principal); F41.1 Generalized anxiety disorder
CPT/HCPCS: 99214

== ENCOUNTER → 2023-10-21 14:42 | Outpatient (BNVA) | payer MEDICARE, OTHER, SELFPAY | PROVIDERS: Visit Provider Psychiatry & Neurology Psychiatry | DX: F33.2 Major depressive disorder, recurrent severe without psychotic features (principal); F41.1 Generalized anxiety disorder | CPT/HCPCS: 99212 ==

== ENCOUNTER 2023-11-04 12:49 | Inpatient (IN) | payer MEDICARE, MEDICAID, SELFPAY ==
--- NOTE | ~2023-11-04 | XR_ITS ---
EXAMINATION: XR LUMBOSACRAL SPINE WITH OBLIQUES CLINICAL INFORMATION: Back pain COMPARISON: Lumbar spine radiograph 07/09/2023, CT abdomen/pelvis 06/30/2018 TECHNIQUE: AP, both oblique, and lateral views of the lumbar spine. Lateral view of the lumbosacral junction. FINDINGS: Transitional anatomy with lumbarization of the S1 vertebral body. Vertebroplasty cement within the L3 vertebral body. Compression deformity of the L2 vertebral body with loss of 40-50% vertebral body height is increased from previous height loss of 20-30% on 07/09/2023. Chronic compression deformities of L1 and T12 vertebral bodies, similar to prior. Vertebral body heights are otherwise maintained. Normal lumbar lordosis and sagittal alignment is maintained. No spondylolisthesis. Multilevel facet arthropathy. Intervertebral disc heights maintained. No significant degenerative disc disease. Diffuse osteopenia. Arterial calcifications noted. Paraspinal soft tissues are unremarkable. Sacroiliac joints are maintained. XR/XR lumbar spine 4V min IMPRESSION: 1. Compression deformity of the L2 vertebral body with loss of 40-50% vertebral body height is increased from previous height loss of 20-30% on 07/09/2023. 2. Chronic compression deformities of L1 and T12 vertebral bodies, similar to prior. 3. Transitional anatomy with lumbarization of the S1 vertebral body.
[2023-11-04 12:51] VITALS: BP 172/80; PULSE 64; RESP 17; TEMP 36.6; O2SAT 98; BMI 27.6
--- NOTE | 2023-11-04 12:51 | ED_ITS ---
HPI - General Adult General Chief complaint: Psychiatric Symptoms Stated complaint: Crisis Time Seen by Provider: 11/04/23 13:58 Source: patient Mode of arrival: ambulatory Limitations: no limitations History of Present Illness ED Provider: Homa Pompa PA-C HPI narrative: Patient is a 73 year old assigned female at with a history of dementia, MDD, and POONAM presenting to the emergency department today with increased anxiety and requesting inpatient psychiatric care. Patient states that she was recently admitted, discharged, and had another mental breakdown. Patient states that she is feeling increasingly unsafe but denies any thoughts of harming herself or others. Patient states that she'd like to be admitted. Patient denies any dizziness, lightheadedness, abdominal pain, nausea, vomiting, fever, chills, blurry vision, double vision, loss of vision, chest pain, difficulty breathing, shortness of breath, back pain, night sweats, pain with urination, increased urinary frequency, increased urinary urgency, blood in her urine or stool, syncope or a near syncopal episode, recent trauma or falls, bowel incontinence, bladder incontinence, bowel retention, bladder retention, or any other complaints at this time. Relieving factors: none Exacerbating factors: none Associated symptoms: denies other symptoms Treatments prior to arrival: none Related Data Previous Rx's ?Medication ?Instructions ?Recorded donepezil 10 mg tablet 10 mg PO BEDTIME 30 days #30 tabs 09/01/23 folic acid 1 mg tablet 1 mg PO DAILY #90 tabs 09/01/23 ibuprofen 200 mg tablet 200 mg PO Q6H PRN Pain, 09/01/23 Moderate(Pain Scale 4-6) #90 tabs lorazepam 0.5 mg tablet 0.5 mg PO BID Anxiety 30 days #60 09/01/23 tabs melatonin 5 mg capsule 5 mg PO BEDTIME #30 caps 09/01/23 memantine 10 mg tablet 10 mg PO BID 90 days #180 tabs 09/01/23 propranolol 10 mg tablet 10 mg PO TID 90 days #270 tabs 09/01/23 quetiapine 25 mg tablet 25 mg PO DIRECTED 30 days #60 09/01/23 tabs thiamine mononitrate (vit B1) 100 100 mg PO BID #60 tabs 09/01/23 mg tablet trazodone 50 mg tablet 50 mg PO BEDTIME PRN Insomnia 90 09/01/23 days #90 tabs vortioxetine 20 mg tablet 20 mg PO DAILY 90 days #90 tabs 09/01/23 (Trintellix) brexpiprazole 0.5 mg tablet 0.5 mg PO DAILY #30 tabs 10/21/23 (Rexulti) mirtazapine 15 mg tablet 15 mg PO BEDTIME #30 tabs 10/21/23 Allergies Allergy/AdvReac Type Severity Reaction Status Date / Time risperidone [From Risperdal] Allergy Intermediate UNKNOWN Verified 11/04/23 12:53 Sulfa (Sulfonamide Allergy Intermediate rash Verified 11/04/23 12:53 Antibiotics) From BENADRYL Allergy Intermediate DIZZY Uncoded 11/04/23 12:53 Review of Systems 2 Constitutional: Constitutional: Reports no additional constitutional complaints, Denies chills, Denies fever(s) and Denies night sweats Eyes: Eyes: Reports no additional eye complaints, Denies blurry vision, Denies change in vision, Denies diplopia, Denies eye discharge, Denies loss of vision and Denies eye pain ENT: Denies dizziness Cardiovascular: Cardiovascular: Reports no additional cardiovascular complaints, Denies chest pain, Denies lightheadedness, Denies Loss of Consciousness and Denies dyspnea Respiratory: Respiratory: Reports no additional respiratory complaints and Denies dyspnea Gastrointestinal: Gastrointestinal: Reports no additional gastrointestinal complaints, Denies abdominal pain, Denies melena, Denies hematochezia, Denies change in bowel habits and Denies change in stool character Genitourinary: Genitourinary: Denies hematuria, Denies urinary frequency, Denies dysuria, Denies urinary incontinence, Denies urinary hesitancy and Denies urinary urgency Musculoskeletal: Musculoskeletal: Reports no additional musculoskeletal complaints, Denies numbness and Denies tingling Neurologic: Denies dizziness, Denies loss of vision, Denies numbness and Denies tingling Psychiatric: Psychiatric: Reports anxiety, Reports depression, Denies homicidal ideation and Denies suicidal ideation Endocrine: Endocrine: Reports no additional endocrine complaints Hematologic/Lymphatic: Hematologic/Lymphatic: Reports no additional hematologic/lymphatic complaints Allergic/Immunologic: Allergic/Immunologic: Reports no additional allergic/immunologic complaints PMFSH Past Medical History Attestation statement: The following information was validated with the patient. Source: old records reviewed and nursing notes reviewed Medical History Dementia Nocturnal hypoxia Severe recurrent major depression w/psychotic features, mood-congruent Has daytime drowsiness Preoperative examination Elevated glucose Screening for colon cancer Screening for diabetes mellitus Obesity (BMI 30-39.9) Confused but orients easily Depression, major, severe recurrence Abnormal serum protein electrophoresis Mild recurrent major depression Anxiety and depression Encounter for Medicare annual wellness exam Removal of nell Depression with anxiety Abdominal distention Weight gain Major depression, recurrent, full remission POONAM (generalized anxiety disorder) Hypothyroidism Hyperparathyroidism Multinodular thyroid Vitamin D deficiency Osteoporosis Surgical History Hx of colonoscopy Hx of kyphoplasty Hx of section Family History Family History Father Myocardial infarction CVD (cardiovascular disease) Mother Dementia Alzheimer disease Other Mental health disorder Social History Social History Household Members: Spouse Housing: Apartment Do you presently have visiting nurse or other home services: No Alcohol intake: never Comment: 1:1 sitter at bedside Patient Tobacco Use Status: Never used Tobacco Smoked in Last 30 Days: No e-Cigarette/Vaping Use: Never Used Second Hand Smoke Exposure: No Use of substances other than those prescribed or required for medical reasons: No Advance Directives: No Advance Directives Information Provided: Yes service: No Current occupational status: unemployed Sexual orientation: Straight/Heterosexual Cognitive needs: No Hearing needs: No Physical Exam ED Vital Signs: Vital Signs - 24 hr 11/04/23 12:51 11/04/23 14:18 11/04/23 20:22 Temperature 98 F 97.6 F Pulse Rate 64 63 Respiratory Rate 17 16 18 Blood Pressure 172/80 H 117/52 L Pulse Oximetry 98 96 Oxygen Delivery Method Room Air Room Air 11/05/23 06:11 Temperature 97.6 F Pulse Rate 83 Respiratory Rate 16 Blood Pressure 114/84 Pulse Oximetry 95 Oxygen Delivery Method Room Air BMI result Body Mass Index 27.6 Const General: cooperative, no acute distress, alert and awake Nutritional Appearance: well nourished Orientation/consciousness: patient oriented x3 Limitations: no limitations HENMT Head: Yes normal to inspection and Yes atraumatic Ears: hearing grossly normal bilaterally and external ears normal General nose exam: Normal external nose present, no nasal discharge noted and no epistaxis Face and sinus: Yes normal facial exam, No abrasion and No laceration Mouth: Normal oral and palatal mucosa present, no drooling and no muffled voice Eyes General: appearance normal, both eyes and all related structures Periorbital: periorbital findings normal Eyelids: Yes eyelids normal Conjunctivae: conjunctivae normal Pupils: Equal, round and reactive pupils present EOM: EOMs intact bilaterally Neck Neck: Yes normal visual inspection, Yes full ROM and Yes no lymphadenopathy Chest Chest palpation & inspection: normal inspection of the chest Resp Effort & Inspection: normal respiratory effort and able to speak in complete sentences GI Inspection: Yes normal to inspection Neuro General: patient oriented x3 and moves all extremities Cranial nerves: Yes Equal, round and reactive pupils present Cognition (Neuro): normal cognition Motor exam (neuro): 5/5 motor strength present throughout Sensory Exam: Normal double simultaneous stimulation for sensation Coordination: [id number] test normal Extrem General: Yes normal to inspection, Yes full ROM and Yes capillary refill normal Psych Appearance: grossly normal Mental Status: mental status grossly normal Speech and movement: Normal speech and movement present Affect: Labile affect present Attitude: cooperative Thought process: Circumstantial thought process present Course Course Course Narrative: This is an RME done by DANTE Mars: Additional HPI, ROS, PE not included below will be deferred to primary provider. 73 year old femal hx dementia, anxiety, depression, psychosis presents w/ concernes that shes having a nervous break down. No SI or HI. No medical complaints Appearance: Alert.? Oriented X3.? No acute cardiopulmonary distress distress.?+ anxiety , tearful Head: Normocephalic, atraumatic, no step-offs or deformities Neck: Normal inspection.? Neck supple.? CVS: Pulses normal.? Respiratory: No respiratory distress.? Skin: ? Normal skin color. Extremities: 5/5 strength to bilateral upper and lower extremities Neuro: Oriented X 3.? No motor deficit.? No sensory deficit. Reevaluation(s) Reevaluation #1: observation continued VS stabe no acute events reported overnight UA has no bacteria will follow up on culture, nitrate negative. pending CARE team Medications Administered Generic Name Dose Route Start Last Admin Trade Name Freq PRN Reason Stop Dose Admin Donepezil HCl 10 mg 11/04/23 21:00 11/04/23 20:52 Donepezil Hcl 10 Mg Tablet PO 10 mg BEDTIME BARRY Administration Lorazepam 0.5 mg 11/04/23 21:00 11/04/23 20:52 Lorazepam 0.5 Mg Tablet PO 0.5 mg BID BARRY Administration Melatonin 6 mg 11/04/23 21:00 11/04/23 20:52 Melatonin 3 Mg Tablet PO 6 mg BEDTIME BARRY Administration Memantine 10 mg 11/04/23 21:00 11/04/23 20:52 Memantine Hcl 10 Mg Tablet PO 10 mg BID BRARY Administration Mirtazapine 15 mg 11/04/23 21:00 11/04/23 20:52 Mirtazapine 15 Mg Tablet PO 15 mg BEDTIME BARRY Administration Propranolol HCl 10 mg 11/04/23 21:00 11/04/23 20:51 Propranolol Hcl 10 Mg Tablet PO 10 mg TID BARRY Administration Protocol Quetiapine Fumarate 25 mg 11/04/23 21:00 11/04/23 20:52 Quetiapine Fumarate 25 Mg Tablet PO 25 mg BEDTIME BARRY Administration Thiamine HCl 100 mg 11/04/23 21:00 11/04/23 20:52 Thiamine Hcl 100 Mg Tablet PO 100 mg BID BARRY Administration Medical Decision Making Medical Decision Making MDM Narrative: Patient is a 73 year old assigned female at with a history of dementia, MDD, and POONAM presenting to the emergency department today with a mental health emergency. Patient's physical exam was as noted in the physical exam portion of this note. Patient's blood work was unremarkable. Patient's urine showed a possible UTI however, given no nitrites or bacteria, will await culture before initiating treatment. Patient's EKG was unremarkable. I explained my physical exam findings as well as all test results to the patient. I answered all questions asked by the patient. Patient is currently awaiting CARE team evaluation. Patient's disposition will be determined after CARE team evaluation. 17:57 Physician observation continued: Dr. Jang's Note Patient was evaluated by the care team provider, Angel Noble. I did discuss this plan over tiger text and he has requesting that the patient be kept overnight for re-evaluation in the morning. Therefore the patient's will remain in the emergency department Behavioral Health Unit until disposition can be determined or until patient's symptoms improve over time. Differential Diagnosis Differential Diagnoses: The differential diagnosis associated with the presentation includes Depression Feeling unsafe Anxiety Crisis Admission/Observation Consideration of admission/observation: Escalation of care including admission/observation considered Patient's dispostion will be determined after CARE team evaluation. Lab Data [facility] Lab Attestation statement: I reviewed the patient's lab results. My interpretation of these results are in the MDM Rationale portion of this note. 11/04/23 13:12 11/04/23 13:12 Labs: Lab Results 11/04/23 11/04/23 Range/Units 13:12 14:23 WBC 6.6 (4.8-10.8) X10*3/uL RBC 4.97 (4.20-5.50) X10*6/uL Hgb 15.3 (12.0-16.0) g/dl Hct 46.5 (37.0-47.0) % MCV 93.6 (80.0-98.0) fL MCH 30.8 (27.0-33.0) pg MCHC 32.9 (31.0-35.0) g/dl RDW 13.5 (11.0-16.0) % Plt Count 232 D (160-400) X10*3/uL MPV 10.3 (9.4-12.3) fL Immature Gran % (Auto) 0.3 (0.0-0.4) % Neut % (Auto) 66.9 (45-73) % Lymph % (Auto) 23.2 (20-40) % [place] % (Auto) 7.9 (2-11) % Eos % (Auto) 1.2 (0-4) % Baso % (Auto) 0.5 (0-2) % Lymph # (Auto) 1.5 (1.2-4.9) X10*3/uL [place] # (Auto) 0.5 (0.1-1.2) X10*3/uL Eos # (Auto) 0.1 (0.0-0.4) X10*3/uL Baso # (Auto) 0.0 (0.0-0.2) X10*3/uL Abs Immat Gran (auto) 0.02 (0.00-0.03) X10*3/uL Absolute Neuts (auto) 4.4 (2.0-8.3) x10*3/uL Absolute Nucleated RBC 0.000 (0.0-0.012) X10*3/uL Nucleated RBC % (auto) 0.0 (0.0-0.2) /100WBC Sodium 143 (135-145) mmol/L Potassium 4.3 (3.3-5.1) mmol/L Chloride 106 (96-108) mmol/L Carbon Dioxide 27 (22-29) mmol/L Anion Gap 14 (12-20) BUN 18 H (9-16) mg/dL Creatinine 0.92 (0.5-1.4) mg/dL Estim Creat Clear Calc 46.2 Estimated GFR > 60 Random Glucose 97 (60-115) mg/dL Calcium 10.2 (8.4-10.2) mg/dL Magnesium 2.1 (1.6-2.6) mg/dL Total Bilirubin 0.3 (0.0-1.0) mg/dL AST 23 (5-31) U/L ALT 24 (0-31) U/L Alkaline Phosphatase 94 (39-117) U/L Total Protein 7.8 (6.5-8.0) g/dL Albumin 4.0 (3.5-5.0) g/dL TSH 2.84 (0.32-4.0) uIU/mL Urine Color Yellow Urine Appearance Clear Urine pH 7.0 (5.0-9.0) Ur Specific [place] 1.015 (1.005-1.025) Urine Protein Negative (Neg-Trace) mg/dL Urine Glucose (UA) Negative (Negative) mg/dL Urine Ketones Negative (Negative) mg/dL Urine Blood Negative (Negative) Urine Nitrite Negative (Negative) Ur Leukocyte Esterase Moderate (2+) H (Negative) Urine RBC 0-2 (0-2) /HPF Urine WBC 11-20 H (0-5) /HPF Ur Squamous Epith Cells 0-2 (0-2) /HPF Urine Bacteria None Seen (None Seen) Hyaline Casts 0-2 (0-2) /LPF Salicylates < 5.0 L (15-30) mg/dL Urine Opiates Screen Not Detected (Not Detect) Ur Buprenorphine Scrn Not Detected (Not Detect) ng/mL Ur Oxycodone Screen Not Detected (Not Detect) ng/mL Urine Methadone Screen Not Detected (Not Detect) ng/mL Urine Fentanyl Screen Not Detected (Not Detect) Acetaminophen < 3 (<30) mcg/mL Ur Barbiturates Screen Not Detected (Not Detect) Ur Phencyclidine Scrn Not Detected (Not Detect) Ur Amphetamines Screen Not Detected (Not Detect) U Benzodiazepines Scrn Not Detected (Not Detect) Urine Cocaine Screen Not Detected (Not Detect) U Marijuana (THC) Screen Not Detected (Not Detect) Ethyl Alcohol < 10 mg/dL Independent Interpretation I performed an independent interpretation of an: EKG Interpretation: Vent. Rate: 057 BPM Atrial Rate: 057 BPM P-R Int: 140 ms QRS Dur: 074 ms QT Int: 414 ms P-R-T Axes: 038 029 044 degrees QTc Int: 402 ms Sinus bradycardia T wave abnormality, consider anterior ischemia Abnormal ECG When compared with ECG of 16-JUL-2023 10:42, Vent. rate has decreased BY 44 BPM T wave inversion now evident in Anterior leads DD/ 1413 Critical Care Time Critical Care Time Critical Care Time: Yes Total Critical Care Time: 34 Attestation: I spent 34 minutes of Critical Care Time with this patient. This does not include time spent on separately reported billable procedures. Discharge Plan Discharge Clinical Impression: Anxiety, Depression Patient Disposition: Still a Patient Prescriptions: No Action ibuprofen 200 mg Tablet 200 mg PO Q6H PRN (Reason: Pain, Moderate(Pain Scale 4-6)) Qty: 90 2RF memantine 10 mg Tablet 10 mg PO BID 90 Days Qty: 180 1RF Trintellix 20 mg Tablet 20 mg PO DAILY 90 Days Qty: 90 1RF trazodone 50 mg Tablet 50 mg PO BEDTIME PRN (Reason: Insomnia) 90 Days Qty: 90 1RF propranolol 10 mg Tablet 10 mg PO TID 90 Days Qty: 270 1RF Protocol: Hold for SBP/HR < HOLD for SBP < : 90 HOLD for HR < : 60 quetiapine 25 mg Tablet 25 mg PO DIRECTED 30 Days Qty: 60 3RF Rx Instructions: 1 tab bedtime may take one extra tablets daily for severe anxiety/ insomnia donepezil 10 mg Tablet 10 mg PO BEDTIME 30 Days Qty: 30 3RF lorazepam 0.5 mg Tablet 0.5 mg PO BID 30 Days Qty: 60 2RF folic acid 1 mg tablet 1 mg PO DAILY Qty: 90 1RF melatonin 5 mg capsule 5 mg PO BEDTIME Qty: 30 3RF thiamine mononitrate (vit B1) 100 mg Tablet 100 mg PO BID Qty: 60 3RF mirtazapine 15 mg tablet 15 mg PO BEDTIME Qty: 30 1RF Rexulti 0.5 mg tablet 0.5 mg PO DAILY Qty: 30 1RF Interventions: [place]-Suicide Risk Severity Scale Last Done: 11/04/23 14:18 Print Language: Sami
[2023-11-04 13:17] LABS: MANUAL DIFF FLAG NO
[2023-11-04 13:19] LABS: Basophils Percent Auto 0.5 % (0-2); Eosinophils Absolute Auto 0.1 X10*3/uL (0.0-0.4); Eosinophils Percent Auto 1.2 % (0-4); Hematocrit 46.5 % (37.0-47.0); Hemoglobin 15.3 g/dl (12.0-16.0); Imm Gran Abs Auto 0.02 X10*3/uL (0.00-0.03); Imm Gran Pct Auto 0.3 % (0.0-0.4); Lymphocytes Absolute Auto 1.5 X10*3/uL (1.2-4.9); Lymphocytes Percent Auto 23.2 % (20-40); Mean Corpuscular HGB Conc 32.9 g/dl (31.0-35.0); Mean Corpuscular Hemoglobin 30.8 pg (27.0-33.0); Mean Corpuscular Volume 93.6 fL (80.0-98.0); Mean Platelet Volume 10.3 fL (9.4-12.3); Monocytes Absolute Auto 0.5 X10*3/uL (0.1-1.2); Monocytes Percent Auto 7.9 % (2-11); Neutrophils Absolute Auto 4.4 x10*3/uL (2.0-8.3); Neutrophils Percent Auto 66.9 % (45-73); Platelet Count 232 X10*3/uL (160-400); Red Blood Count 4.97 X10*6/uL (4.20-5.50); Red Cell Distribution Width 13.5 % (11.0-16.0); White Blood Count 6.6 X10*3/uL (4.8-10.8)
[2023-11-04 13:33] LABS: Acetaminophen LAB < 3 mcg/mL (<30); Salicylate < 5.0 mg/dL (15-30)
[2023-11-04 13:34] LABS: Alanine Aminotransferase 24 U/L (0-31); Alkaline Phosphatase 94 U/L (39-117); Anion Gap 14 (12-20); Aspartate Amino Transferase 23 U/L (5-31); Bilirubin Total 0.3 mg/dL (0.0-1.0); Blood Urea Nitrogen 18 mg/dL (9-16); Calcium 10.2 mg/dL (8.4-10.2); Carbon Dioxide 27 mmol/L (22-29); Chloride 106 mmol/L (96-108); Creatinine Clr Calc Pharmacy 46.2; Estimated Glomerular Filt Rate > 60; Ethanol < 10 mg/dL; Glucose Random 97 mg/dL (60-115); Magnesium 2.1 mg/dL (1.6-2.6); Potassium 4.3 mmol/L (3.3-5.1); Sodium 143 mmol/L (135-145); Total Protein 7.8 g/dL (6.5-8.0)
--- NOTE | 2023-11-04 13:59 | ECG_ITS ---
Test Reason : MEDICAL DEARANCE Blood Pressure : / mmHG Vent. Rate : 057 BPM Atrial Rate : 057 BPM P-R Int : 140 ms QRS Dur : 074 ms QT Int : 414 ms P-R-T Axes : 038 029 044 degrees QTc Int : 402 ms Sinus bradycardia T wave abnormality, consider anterior ischemia Abnormal ECG When compared with ECG of 16-JUL-2023 10:42, Vent. rate has decreased BY 44 BPM T wave inversion now evident in Anterior leads Referred By: Homa Pompa Electronically Signed By:ELISE WEI
[2023-11-04 14:18] VITALS: RESP 16
[2023-11-04 14:33] LABS: Appearance Urine Clear; Color Urine Yellow; Glucose Urine UA Negative (Negative); Leukocyte Esterase Urine Moderate (2+) (Negative); Nitrite Urine Negative (Negative); Specific Gravity - Urine 1.015 (1.005-1.025); UMIC TRIGGER UACC YES; Urine Blood Negative (Negative); Urine Ketones Negative (Negative); Urine Protein Negative (Neg-Trace)
[2023-11-04 14:36] LABS: TSH reflex Free T4 2.84 uIU/mL (0.32-4.0)
[2023-11-04 14:38] LABS: Bacteria Urine None Seen (None Seen); Hyaline Casts Urine 0-2 /LPF (0-2); RBC Urine 0-2 /HPF (0-2); Squamous Epithelial Cell Urine 0-2 /HPF (0-2); UACC Culture Trigger YES
[2023-11-04 14:43] LABS: Amphetamine Screen Urine Not Detected (Not Detect); Barbiturates, Urine Not Detected (Not Detect); Benzodiazepines Screen Urine Not Detected (Not Detect); Buprenorphine Scr Not Detected (Not Detect); Cannabinoid Screen Urine Not Detected (Not Detect); Cocaine Screen Urine Not Detected (Not Detect); Fentanyl, urine Not Detected (Not Detect); Methadone Screen, Urine Not Detected (Not Detect); Opiate Screen Urine Not Detected (Not Detect); Oxycodone Screen Urine Not Detected (Not Detect); Phencyclidine Screen Urine Not Detected (Not Detect)
[2023-11-04] MEDS: LORazepam 0.5 MG TABLET PO ×2 (15:45→20:52)
--- NOTE | 2023-11-04 15:45 | PC.NURSE ---
per DANTE Luther give 0.5mg Ativan unscheduled for anxiety at this time
--- NOTE | 2023-11-04 19:04 | PC.NURSE ---
patient appears in no distress, ambulated ad stella to desk and introduced herself at beginning of shift patient social w other peers ion unit. paitent appears in no distress.
[2023-11-04 20:22] VITALS: BP 117/52; PULSE 63; RESP 18; TEMP 36.4; O2SAT 96
[2023-11-04] MEDS: Propranolol HCL 10 MG TABLET PO (20:51)
[2023-11-04] MEDS: Memantine HCl 10 MG TABLET PO (20:52)
[2023-11-04] MEDS: Melatonin 3 MG TABLET 6 MG PO (20:52)
[2023-11-04] MEDS: Mirtazapine 15 MG TABLET PO (20:52)
[2023-11-04] MEDS: Thiamine HCL 100 MG TABLET PO (20:52)
[2023-11-04] MEDS: Donepezil HCl 10 MG TABLET PO (20:52)
[2023-11-04] MEDS: QUEtiapine Fumarate 25 MG TABLET PO (20:52)
[2023-11-05 06:11] VITALS: BP 114/84; PULSE 83; RESP 16; TEMP 36.4; O2SAT 95
[2023-11-05] MEDS: Thiamine HCL 100 MG TABLET PO ×2 (08:31→19:58)
[2023-11-05] MEDS: Folic Acid 1 MG TABLET PO (08:31)
[2023-11-05] MEDS: Propranolol HCL 10 MG TABLET PO ×3 (08:31→19:56)
[2023-11-05] MEDS: Memantine HCl 10 MG TABLET PO ×2 (08:31→19:58)
[2023-11-05] MEDS: LORazepam 0.5 MG TABLET PO ×2 (08:31→19:56)
--- NOTE | 2023-11-05 08:35 | PC.NURSE ---
awaiting care team consult, medicated per the MAR.
[2023-11-05] MEDS: QUEtiapine Fumarate 25 MG TABLET PO ×2 (09:16→20:11)
[2023-11-05] MEDS: Vortioxetine Hydrobromide 20 MG TABLET PO (09:28)
--- NOTE | 2023-11-05 13:55 | PM.PSYCN ---
History of Present Illness Date of Service: t Chief Complaint: Crisis Discussed with referring provider: Yes Sources of Information: patient interviewed, chart reviewed and crisis/core team assessment reviewed HPI Narrative: The patient is a 73-year-old female, , very well known by this prescriber since she had been in the unit before with major depressive disorder recurrent episode severe, dementia and other medical comorbidities who self presented to the emergency room for exacerbation of depression elicited by increased depressed mood, anhedonia, lack of energy and passive suicidal thoughts. She adamantly denies psychotic symptoms. The patient was assessed with her who corroborate the symptoms that worsened in the last weeks. Apparently the patient saw her outpatient psychiatrist Dr. Willett 1 week ago and medications were not changed since the patient stated that she was doing well. Historically the patient has improved with a combination of several medications and ECT. Recently her case was discussed with the anesthesiology team since the patient had medical problems. The anesthesiology team was doubtful of the safety of this procedure. On interview the patient reports that she is feeling more depressed she is feeling that she has not safe to go back to the community and she is willing to contract for safety. Past Psychiatric History: Patient with long history of recurrent depression with multiple prior psychiatric hospitalizations. 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 no classic bipolar symptoms past depressive psychotic episodes not for a number of years Medical Evaluation Reviewed: Yes Review of Systems Review of Systems Yes all other systems are reviewed and are negative PMFSH Medical History Dementia Nocturnal hypoxia Severe recurrent major depression w/psychotic features, mood-congruent Has daytime drowsiness Preoperative examination Elevated glucose Screening for colon cancer Screening for diabetes mellitus Obesity (BMI 30-39.9) Confused but orients easily Depression, major, severe recurrence Abnormal serum protein electrophoresis Mild recurrent major depression Anxiety and depression Encounter for Medicare annual wellness exam Removal of nell Depression with anxiety Abdominal distention Weight gain Major depression, recurrent, full remission POONAM (generalized anxiety disorder) Hypothyroidism Hyperparathyroidism Multinodular thyroid Vitamin D deficiency Osteoporosis Surgical History Hx of colonoscopy Hx of kyphoplasty Hx of section Family History: Depression Social History: Patient disabled has 1 son. Chronic anxiety has an intermittent difficult relationship with her mostly has not worked Substance History: Denies Trauma History: None noted Diagnostics Vital Signs (24Hr): Vital Signs - 24 hr 11/04/23 14:18 11/04/23 20:22 11/05/23 06:11 Temperature 97.6 F 97.6 F Pulse Rate 63 83 Respiratory Rate 16 18 16 Blood Pressure 117/52 L 114/84 Pulse Oximetry 96 95 Oxygen Delivery Method Room Air Room Air BMI result Body Mass Index 27.6 Labs 11/04/23 13:12 11/04/23 13:12 Labs: Laboratory Results - last 48 hr 11/04/23 11/04/23 13:12 14:23 WBC 6.6 RBC 4.97 Hgb 15.3 Hct 46.5 MCV 93.6 MCH 30.8 MCHC 32.9 RDW 13.5 Plt Count 232 D MPV 10.3 Immature Gran % (Auto) 0.3 Neut % (Auto) 66.9 Lymph % (Auto) 23.2 [place] % (Auto) 7.9 Eos % (Auto) 1.2 Baso % (Auto) 0.5 Lymph # (Auto) 1.5 [place] # (Auto) 0.5 Eos # (Auto) 0.1 Baso # (Auto) 0.0 Abs Immat Gran (auto) 0.02 Absolute Neuts (auto) 4.4 Absolute Nucleated RBC 0.000 Nucleated RBC % (auto) 0.0 Sodium 143 Potassium 4.3 Chloride 106 Carbon Dioxide 27 Anion Gap 14 BUN 18 H Creatinine 0.92 Estim Creat Clear Calc 46.2 Estimated GFR > 60 Random Glucose 97 Calcium 10.2 Magnesium 2.1 Total Bilirubin 0.3 AST 23 ALT 24 Alkaline Phosphatase 94 Total Protein 7.8 Albumin 4.0 TSH 2.84 Urine Color Yellow Urine Appearance Clear Urine pH 7.0 Ur Specific [place] 1.015 Urine Protein Negative Urine Glucose (UA) Negative Urine Ketones Negative Urine Blood Negative Urine Nitrite Negative Ur Leukocyte Esterase Moderate (2+) H Urine RBC 0-2 Urine WBC 11-20 H Ur Squamous Epith Cells 0-2 Urine Bacteria None Seen Hyaline Casts 0-2 Salicylates < 5.0 L Urine Opiates Screen Not Detected Ur Buprenorphine Scrn Not Detected Ur Oxycodone Screen Not Detected Urine Methadone Screen Not Detected Urine Fentanyl Screen Not Detected Acetaminophen < 3 Ur Barbiturates Screen Not Detected Ur Phencyclidine Scrn Not Detected Ur Amphetamines Screen Not Detected U Benzodiazepines Scrn Not Detected Urine Cocaine Screen Not Detected U Marijuana (THC) Screen Not Detected Ethyl Alcohol < 10 Mental Status Exam Mental Status Exam Patient Appearance: Appropriate (On hospital gowns) Patient Orientation: Person and Situation Level of Consciousness: Awake Patient Behavior: Guarded and Passive Mood Description: Withdrawn Affect Description: Constricted Patient Cognition Impaired: Yes Ability to Follow Directions: Good Speech Pattern: Clear Hallucinations: None Delusions: Not Present Thought Process: Distracted and Slowed Thinking Thought Content: positive for [place] and positive for Poverty of Content Judgement: Fair Medications Medications Current Medications Donepezil HCl (Donepezil Hcl 10 Mg Tablet) 10 mg PO BEDTIME [facility] Last Admin: 11/04/23 20:52 Dose: 10 mg Folic Acid (Folic Acid 1 Mg Tablet) 1 mg PO DAILY [facility] Last Admin: 11/05/23 08:31 Dose: 1 mg Ibuprofen (Ibuprofen 200 Mg Tablet) 200 mg PO Q6H PRN PRN Reason: Pain, Moderate(Pain Scale 4-6) Lorazepam (Lorazepam 0.5 Mg Tablet) 0.5 mg PO BID [facility] Last Admin: 11/05/23 08:31 Dose: 0.5 mg Melatonin (Melatonin 3 Mg Tablet) 6 mg PO BEDTIME [facility] Last Admin: 11/04/23 20:52 Dose: 6 mg Memantine (Memantine Hcl 10 Mg Tablet) 10 mg PO BID [facility] Last Admin: 11/05/23 08:31 Dose: 10 mg Mirtazapine (Mirtazapine 15 Mg Tablet) 15 mg PO BEDTIME [facility] Last Admin: 11/04/23 20:52 Dose: 15 mg Non-Formulary Medication (Brexpiprazole [Rexulti]) 0.5 mg PO DAILY [facility] Propranolol HCl (Propranolol Hcl 10 Mg Tablet) 10 mg PO TID [facility]; Protocol Last Admin: 11/05/23 08:31 Dose: 10 mg Quetiapine Fumarate (Quetiapine Fumarate 25 Mg Tablet) 25 mg PO BEDTIME [facility] Last Admin: 11/04/23 20:52 Dose: 25 mg Quetiapine Fumarate (Quetiapine Fumarate 25 Mg Tablet) 25 mg PO DAILY PRN PRN Reason: Anxiety Last Admin: 11/05/23 09:16 Dose: 25 mg Thiamine HCl (Thiamine Hcl 100 Mg Tablet) 100 mg PO BID [facility] Last Admin: 11/05/23 08:31 Dose: 100 mg Trazodone HCl (Trazodone Hcl 50 Mg Tablet) 50 mg PO BEDTIME PRN PRN Reason: Insomnia Vortioxetine (Vortioxetine Hydrobromide 20 Mg Tablet) 20 mg PO DAILY [facility] Last Admin: 11/05/23 09:28 Dose: 20 mg Allergies Allergies Allergy/AdvReac Type Severity Reaction Status Date / Time risperidone [From Risperdal] Allergy Intermediate UNKNOWN Verified 11/04/23 12:53 Sulfa (Sulfonamide Allergy Intermediate rash Verified 11/04/23 12:53 Antibiotics) From BENADRYL Allergy Intermediate DIZZY Uncoded 11/04/23 12:53 Assessment & Plan Assessment & Plan (1) Major depressive disorder, recurrent severe without psychotic features: Status: Acute Code(s): F33.2 - Major depressive disorder, recurrent severe without psychotic features (2) POONAM (generalized anxiety disorder): Status: Acute Code(s): F41.1 - Generalized anxiety disorder (3) Dementia: Qualifiers: Dementia type: unspecified type Dementia severity: mild Dementia behavioral or psychological symptom: unspecified whether behavioral, psychotic, or mood disturbance or anxiety Qualified Code(s): F03.A0 - Unspecified dementia, mild, without behavioral disturbance, psychotic disturbance, mood disturbance, and anxiety Status: Acute Code(s): F03.90 - Unspecified dementia, unspecified severity, without behavioral disturbance, psychotic disturbance, mood disturbance, and anxiety Plan The patient is an elderly female with a past history of major depressive disorder GED, dementia and other medical comorbidities who self presented to the emergency room since she had feeling more depressed with exacerbation of neurovegetative symptoms. The patient at this moment she does not feel safe to go back home. Plan 1. Continue with medical workout. 2. The patient at this moment needs inpatient level of care. Start bed search Total time managing care of this patient today __30__ minutes. Patient educated on: diagnosis Informed Consent: understands
[2023-11-05 14:00] VITALS: BP 110/65; PULSE 67; RESP 18; TEMP 36.3; O2SAT 98
--- NOTE | 2023-11-05 14:15 | PC.NURSE ---
plan for admission to inpatient psych, potentially tomorrow pending beds
--- NOTE | 2023-11-05 16:05 | MHC.CARE ---
Director Automotive informed by Dominic Cantor RN that patient will be admitted to unit tomorrow. Patient and POD staff updated.
[2023-11-05] MEDS: Acetaminophen 325 MG TABLET 650 MG PO (16:59)
[2023-11-05 17:48] VITALS: BP 121/80; PULSE 66; RESP 18; TEMP 36.4; O2SAT 97
--- NOTE | 2023-11-05 18:37 | PC.ADMIT ---
Judy arrived to the unit at 1715 from [facility], signed Conditional Voluntary, sharps check done by freelance copywriter and female RN. She is calm and pleasant, when asked how she felt stated Not good, she reports I left this place too early, I wasn't ready. She reports endorsing 10/10 anxiety and depression, she denied AVH, when asked if she had any thoughts of wanting to hurt self stated No, verbalized to look for staff if thoughts occur. She reports poor appetite I ate just because, reports I have no energy to do anything. Per assessment Judy self presented reporting she was having a mental breakdown and increasing feelings of being unsafe. Judy is diagnosed with anxiety, depression, and dementia, she is currently on 15 minute checks.
[2023-11-05 19:49] VITALS: BMI 20.1
[2023-11-05] MEDS: traZODone HCL 50 MG TABLET PO (19:57)
[2023-11-05] MEDS: Donepezil HCl 10 MG TABLET PO (19:57)
[2023-11-05] MEDS: Melatonin 3 MG TABLET 6 MG PO (19:57)
[2023-11-05] MEDS: Mirtazapine 15 MG TABLET PO (19:57)
[2023-11-05 20:00] VITALS: BP 118/78; PULSE 66
[2023-11-06 08:00] VITALS: BP 126/68; PULSE 69; RESP 18; TEMP 36.4; O2SAT 97
[2023-11-06 08:09] LABS: Estimated Average Glucose 117 mg/dL; Hemoglobin A1c % 5.7 % (<6.0)
[2023-11-06 08:23] LABS: Cholesterol 208 mg/dL (<200); HDL Cholesterol 57 mg/dL (>40); LDL Cholesterol Calculated 128 mg/dL (<100); Triglycerides 116 mg/dL (<150)
[2023-11-06 08:40] LABS: Free T4 (Free Thyroxine) 0.93 ng/dL (0.71-1.85)
[2023-11-06] MEDS: Memantine HCl 10 MG TABLET PO ×2 (08:47→20:42)
[2023-11-06] MEDS: Propranolol HCL 10 MG TABLET PO ×3 (08:47→20:42)
[2023-11-06] MEDS: Thiamine HCL 100 MG TABLET PO ×2 (08:47→20:43)
[2023-11-06] MEDS: LORazepam 0.5 MG TABLET PO ×2 (08:47→20:41)
[2023-11-06] MEDS: Folic Acid 1 MG TABLET PO (08:47)
[2023-11-06] MEDS: Vortioxetine Hydrobromide 20 MG TABLET PO (08:47)
[2023-11-06 08:52] LABS: Vitamin B12 1618 pg/mL (200-900)
[2023-11-06 09:15] LABS: Thyroid Stimulating Hormone 2.18 uIU/mL (0.32-4.0)
--- NOTE | 2023-11-06 10:27 | HO.PSYADMNOT ---
HPI Date of Service: 11/06/23 Chief Complaint: Depression, Dementia Sources of Information: patient interviewed, chart reviewed and crisis/core team assessment reviewed HPI Subjective Notes: Qureshi Warning and Conditional Voluntary Healthcare Proxy: No Guardianship: No Medical Problems Affecting Mental Status: No Narrative: 73 yo female, recent discharge from [facility], history of recurrent major depression with psychotic features, anxiety, dementia, multiple medical comorbidities, to ER per her request. Pt reports she is having a mental breakdown with increased feelings of lack of safety. She reports since she left the hospital symptoms have intensified. She reports medicine compliance and questions if she was ready to leave the hospital after her previous admission. It is hard to know, I thought I was ready, but when I got home I knew I was not and I tried and it just kept getting worse. Reports racing thoughts, decrease in sleep, having very poor appetite (asks for Ensure). Denies SI/HI/AH/VH. but I want you to take care of it before it gets bad, because the last time it was very bad. Past Psychiatric History: Patient with long history of recurrent depression with multiple prior psychiatric hospitalizations. 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 no classic bipolar symptoms past depressive psychotic episodes not for a number of years Medical Evaluation Reviewed: Yes [facility] Medical History Dementia Nocturnal hypoxia Severe recurrent major depression w/psychotic features, mood-congruent Has daytime drowsiness Preoperative examination Elevated glucose Screening for colon cancer Screening for diabetes mellitus Obesity (BMI 30-39.9) Confused but orients easily Depression, major, severe recurrence Abnormal serum protein electrophoresis Mild recurrent major depression Anxiety and depression Encounter for Medicare annual wellness exam Removal of nell Depression with anxiety Abdominal distention Weight gain Major depression, recurrent, full remission POONAM (generalized anxiety disorder) Hypothyroidism Hyperparathyroidism Multinodular thyroid Vitamin D deficiency Osteoporosis Surgical History Hx of colonoscopy Hx of kyphoplasty Hx of section Family History: Depression Social History: Patient disabled has 1 son. Chronic anxiety has an intermittent difficult relationship with her mostly has not worked Substance History: Denies Trauma History: None noted Diagnostics Vital Signs (24Hr): Vital Signs - 24 hr 11/05/23 14:00 11/05/23 17:48 11/05/23 20:00 Temperature 97.3 F 97.5 F Pulse Rate 67 66 66 Respiratory Rate 18 18 Blood Pressure 110/65 121/80 118/78 Pulse Oximetry 98 97 Oxygen Delivery Method Room Air Room Air 11/06/23 08:00 Temperature 97.6 F Pulse Rate 69 Respiratory Rate 18 Blood Pressure 126/68 Pulse Oximetry 97 Oxygen Delivery Method Room Air BMI result Body Mass Index 20.1 Labs 11/04/23 13:12 11/04/23 13:12 Labs: Laboratory Results - last 48 hr 11/04/23 11/04/23 11/06/23 13:12 14:23 07:53 WBC 6.6 RBC 4.97 Hgb 15.3 Hct 46.5 MCV 93.6 MCH 30.8 MCHC 32.9 RDW 13.5 Plt Count 232 D MPV 10.3 Immature Gran % (Auto) 0.3 Neut % (Auto) 66.9 Lymph % (Auto) 23.2 [place] % (Auto) 7.9 Eos % (Auto) 1.2 Baso % (Auto) 0.5 Lymph # (Auto) 1.5 [place] # (Auto) 0.5 Eos # (Auto) 0.1 Baso # (Auto) 0.0 Abs Immat Gran (auto) 0.02 Absolute Neuts (auto) 4.4 Absolute Nucleated RBC 0.000 Nucleated RBC % (auto) 0.0 Sodium 143 Potassium 4.3 Chloride 106 Carbon Dioxide 27 Anion Gap 14 BUN 18 H Creatinine 0.92 Estim Creat Clear Calc 46.2 Estimated GFR > 60 Random Glucose 97 Estimat Average Glucose 117 Hemoglobin A1c % 5.7 Calcium 10.2 Magnesium 2.1 2.0 Total Bilirubin 0.3 AST 23 ALT 24 Alkaline Phosphatase 94 Total Protein 7.8 Albumin 4.0 Triglycerides 116 Cholesterol 208 H LDL Cholesterol, Calc 128 H HDL Cholesterol 57 Vitamin B12 1618 H Folate 15.0 TSH 2.84 2.18 Free T4 0.93 Urine Color Yellow Urine Appearance Clear Urine pH 7.0 Ur Specific [place] 1.015 Urine Protein Negative Urine Glucose (UA) Negative Urine Ketones Negative Urine Blood Negative Urine Nitrite Negative Ur Leukocyte Esterase Moderate (2+) H Urine RBC 0-2 Urine WBC 11-20 H Ur Squamous Epith Cells 0-2 Urine Bacteria None Seen Hyaline Casts 0-2 Salicylates < 5.0 L Urine Opiates Screen Not Detected Ur Buprenorphine Scrn Not Detected Ur Oxycodone Screen Not Detected Urine Methadone Screen Not Detected Urine Fentanyl Screen Not Detected Acetaminophen < 3 Ur Barbiturates Screen Not Detected Ur Phencyclidine Scrn Not Detected Ur Amphetamines Screen Not Detected U Benzodiazepines Scrn Not Detected Urine Cocaine Screen Not Detected U Marijuana (THC) Screen Not Detected Ethyl Alcohol < 10 Meds/Allergies Allergies Allergies Allergy/AdvReac Type Severity Reaction Status Date / Time risperidone [From Risperdal] Allergy Intermediate UNKNOWN Verified 11/04/23 12:53 Sulfa (Sulfonamide Allergy Intermediate rash Verified 11/04/23 12:53 Antibiotics) From BENADRYL Allergy Intermediate DIZZY Uncoded 11/04/23 12:53 Mental Status Exam Mental Status Exam Patient Appearance: Appropriate Patient Orientation: Person and Situation Level of Consciousness: Awake Patient Behavior: Talkative, Passive and Good Eye Contact Mood Description: Depressed Affect Description: Flat Patient Cognition Impaired: Yes Ability to Follow Directions: Good Speech Pattern: Clear Memory Description: Episodic Impaired Hallucinations: None Delusions: Not Present Thought Process: Distracted and Slowed Thinking Thought Content: positive for [place] and positive for Circumstantial Judgement: Fair Assessment & Plan Assessment & Plan (1) Depression: Status: Acute Code(s): F32.A - Depression, unspecified (2) Dementia: Status: Acute Qualifiers: Dementia behavioral or psychological symptom: unspecified whether behavioral, psychotic, or mood disturbance or anxiety Dementia severity: mild Dementia type: unspecified type Qualified Code(s): F03.A0 - Unspecified dementia, mild, without behavioral disturbance, psychotic disturbance, mood disturbance, and anxiety Code(s): F03.90 - Unspecified dementia, unspecified severity, without behavioral disturbance, psychotic disturbance, mood disturbance, and anxiety Plan 73 yo female, history of recurrent major depression with psychotic features, dementia, and multiple medical comorbidities. Recent discharge from [facility] she reports (09/03/23), with increasing symptoms of depression. Pt reports poor sleep, appetite. She reports she has been taking medications is willing to make any changes that are needed and will help. Plan: CV 15 minute checks Collateral contact with family Increase Rexulti to 1 mg daily from 0.5 mg daily Diagnostics as needed Patient educated on: medication risk/benefits, therapeutic strategies and other Reason for continued inpatient stay Substantial Risk for: rapid decompensation Statement Statement: I have reviewed the history and physical and performed a pertinent examination on my patient. No changes have occurred unless specified. If the History and Physical was not performed prior to admission, the Hospitalist's service will be consulted for completing the admission physical. Time Spent With Patient Time: Total time managing care of this patient today ____ minutes.
[2023-11-06 16:15] VITALS: BP 112/65; PULSE 70; RESP 18
[2023-11-06 20:00] VITALS: BP 120/77; PULSE 86; RESP 20; TEMP 36.4; O2SAT 98
[2023-11-06] MEDS: Donepezil HCl 10 MG TABLET PO (20:41)
[2023-11-06 20:42] VITALS: BP 120/77; PULSE 86
[2023-11-06] MEDS: Mirtazapine 15 MG TABLET PO (20:42)
[2023-11-06] MEDS: Melatonin 3 MG TABLET 6 MG PO (20:42)
[2023-11-06] MEDS: QUEtiapine Fumarate 25 MG TABLET PO (20:43)
[2023-11-07 08:00] VITALS: BP 135/67; PULSE 66; RESP 18; TEMP 36.6; O2SAT 95
[2023-11-07] MEDS: Propranolol HCL 10 MG TABLET PO ×3 (08:00→20:45)
[2023-11-07] MEDS: Vortioxetine Hydrobromide 20 MG TABLET PO (08:44)
[2023-11-07] MEDS: Thiamine HCL 100 MG TABLET PO ×2 (08:44→20:46)
[2023-11-07] MEDS: Folic Acid 1 MG TABLET PO (08:44)
[2023-11-07] MEDS: LORazepam 0.5 MG TABLET PO ×2 (08:44→20:44)
[2023-11-07] MEDS: Memantine HCl 10 MG TABLET PO ×2 (08:44→20:44)
[2023-11-07] MEDS: Ibuprofen 200 MG TABLET PO (13:49)
[2023-11-07 15:20] VITALS: BP 114/83; PULSE 80
--- NOTE | 2023-11-07 18:31 | HO.PSYCHPN ---
Subjective Subjective Date of Service: 11/07/23 Reason For Visit: Depression, Dementia Subjective Notes: Conditional Voluntary Healthcare Proxy: No Guardianship: No Medical Problems Affecting Mental Status: No Interim History: Pt seen, reviewed with team. Reports low back pain. Urine culture-negative x 2 Spinal xrays-L2 compression deformity. L1, T12 chronic compression deformity, S1 lumbarization. Anxious. The milieu is loud, caustic and without opportunity for healing currently. Discussed with team a transfer to S[facility] where pt has flourished in the past. Targeted by a peer, however, managed this very well and was kind to him. Very connected with the team who are supportive of her. Also connected with her room-mate. Medication Compliance: Yes Side effects from medications: No Attending Groups: Intermittent Review of Systems Acute medical concerns: No Medical Review of Systems: unchanged Review of Systems Review of Systems Back pain-lower. Mental Status Exam Mental Status Exam Patient Appearance: Appropriate Patient Orientation: Person and Situation Level of Consciousness: Awake Patient Behavior: Talkative, Passive and Good Eye Contact Mood Description: Depressed Affect Description: Flat Patient Cognition Impaired: Yes Ability to Follow Directions: Good Speech Pattern: Clear Memory Description: Episodic Impaired Hallucinations: None Delusions: Not Present Thought Process: Distracted and Slowed Thinking Thought Content: positive for [place] and positive for Circumstantial Judgement: Fair Diagnostics Vital Signs (24Hr): Vital Signs - 24 hr 11/06/23 20:00 11/06/23 20:42 11/07/23 08:00 Temperature 97.5 F 97.9 F Pulse Rate 86 86 66 Respiratory Rate 20 18 Blood Pressure 120/77 120/77 135/67 Pulse Oximetry 98 95 Oxygen Delivery Method Room Air Room Air 11/07/23 08:00 11/07/23 15:20 Temperature Pulse Rate 66 80 Respiratory Rate Blood Pressure 135/67 114/83 Pulse Oximetry Oxygen Delivery Method BMI result Body Mass Index 20.1 Labs 11/04/23 13:12 11/04/23 13:12 Labs: Laboratory Results - last 48 hr 11/06/23 07:53 Estimat Average Glucose 117 Hemoglobin A1c % 5.7 Magnesium 2.0 Triglycerides 116 Cholesterol 208 H LDL Cholesterol, Calc 128 H HDL Cholesterol 57 Vitamin B12 1618 H Folate 15.0 TSH 2.18 Free T4 0.93 Medications Medications Current Medications Acetaminophen (Acetaminophen 325 Mg Tablet) 650 mg PO Q6H PRN PRN Reason: Headache/Pain Mild Scale (1-3) Last Admin: 11/05/23 16:59 Dose: 650 mg Al Hydroxide/Mg Hydroxide (Magnesium Hydrox/Alum Hydrox 30 Ml Oral.Susp) 30 ml PO Q6H PRN PRN Reason: Heartburn/Nausea Donepezil HCl (Donepezil Hcl 10 Mg Tablet) 10 mg PO BEDTIME [facility] Last Admin: 11/06/23 20:41 Dose: 10 mg Folic Acid (Folic Acid 1 Mg Tablet) 1 mg PO DAILY [facility] Last Admin: 11/07/23 08:44 Dose: 1 mg Hydroxyzine HCl (Hydroxyzine Hcl 25 Mg Tablet) 25 mg PO Q6H PRN PRN Reason: Anxiety Ibuprofen (Ibuprofen 200 Mg Tablet) 200 mg PO Q6H PRN PRN Reason: Pain, Moderate(Pain Scale 4-6) Last Admin: 11/07/23 13:49 Dose: 200 mg Lorazepam (Lorazepam 0.5 Mg Tablet) 0.5 mg PO BID [facility] Last Admin: 11/07/23 08:44 Dose: 0.5 mg Magnesium Hydroxide (Milk Of Magnesia 30 Ml Oral.Susp) 30 ml PO DAILY PRN PRN Reason: Constipation Melatonin (Melatonin 3 Mg Tablet) 6 mg PO BEDTIME [facility] Last Admin: 11/06/23 20:42 Dose: 6 mg Memantine (Memantine Hcl 10 Mg Tablet) 10 mg PO BID [facility] Last Admin: 11/07/23 08:44 Dose: 10 mg Mirtazapine (Mirtazapine 15 Mg Tablet) 15 mg PO BEDTIME [facility] Last Admin: 11/06/23 20:42 Dose: 15 mg Non-Formulary Medication (Brexpiprazole [Rexulti]) 1 mg PO DAILY [facility] Propranolol HCl (Propranolol Hcl 10 Mg Tablet) 10 mg PO TID [facility]; Protocol Last Admin: 11/07/23 15:20 Dose: 10 mg Quetiapine Fumarate (Quetiapine Fumarate 25 Mg Tablet) 25 mg PO BEDTIME [facility] Last Admin: 11/06/23 20:43 Dose: 25 mg Quetiapine Fumarate (Quetiapine Fumarate 25 Mg Tablet) 25 mg PO DAILY PRN PRN Reason: Anxiety Last Admin: 11/05/23 09:16 Dose: 25 mg Thiamine HCl (Thiamine Hcl 100 Mg Tablet) 100 mg PO BID [facility] Last Admin: 11/07/23 08:44 Dose: 100 mg Trazodone HCl (Trazodone Hcl 50 Mg Tablet) 50 mg PO BEDTIME PRN PRN Reason: Insomnia Last Admin: 11/05/23 19:57 Dose: 50 mg Trazodone HCl (Trazodone Hcl 50 Mg Tablet) 50 mg PO BEDTIME [facility] PRN PRN Reason: Insomnia Vortioxetine (Vortioxetine Hydrobromide 20 Mg Tablet) 20 mg PO DAILY [facility] Last Admin: 11/07/23 08:44 Dose: 20 mg Allergies Allergies Allergy/AdvReac Type Severity Reaction Status Date / Time risperidone [From Risperdal] Allergy Intermediate UNKNOWN Verified 11/04/23 12:53 Sulfa (Sulfonamide Allergy Intermediate rash Verified 11/04/23 12:53 Antibiotics) From BENADRYL Allergy Intermediate DIZZY Uncoded 11/04/23 12:53 Assessment & Plan Assessment & Plan (1) Depression: Status: Acute Code(s): F32.A - Depression, unspecified (2) Dementia: Qualifiers: Dementia behavioral or psychological symptom: unspecified whether behavioral, psychotic, or mood disturbance or anxiety Dementia severity: mild Dementia type: unspecified type Qualified Code(s): F03.A0 - Unspecified dementia, mild, without behavioral disturbance, psychotic disturbance, mood disturbance, and anxiety Status: Acute Code(s): F03.90 - Unspecified dementia, unspecified severity, without behavioral disturbance, psychotic disturbance, mood disturbance, and anxiety Plan 73 yo female, history of recurrent major depression with psychotic features, dementia, and multiple medical comorbidities. Recent discharge from [facility] she reports (09/03/23), with increasing symptoms of depression. Pt reports poor sleep, appetite. She reports she has been taking medications is willing to make any changes that are needed and will help. Plan: CV 15 minute checks Collateral contact with family Increase Rexulti to 1 mg daily from 0.5 mg daily Diagnostics as needed 11/06 Repeat urine culture-negative Spinal x rays-compression deformity L2; Chronic compression deformity L1, T12, Lumbarization S1. Reason for continued inpatient stay Substantial Risk for: rapid decompensation and med/psych decompensation Time Spent With Patient Time: Total time managing care of this patient today ____ minutes.
[2023-11-07 20:00] VITALS: BP 135/65; PULSE 80; RESP 18; TEMP 36.5; O2SAT 96
[2023-11-07] MEDS: Melatonin 3 MG TABLET 6 MG PO (20:44)
[2023-11-07] MEDS: Donepezil HCl 10 MG TABLET PO (20:44)
[2023-11-07 20:45] VITALS: BP 133/65; PULSE 80
[2023-11-07] MEDS: Mirtazapine 15 MG TABLET PO (20:45)
[2023-11-07] MEDS: traZODone HCL 50 MG TABLET PO (20:46)
[2023-11-07] MEDS: QUEtiapine Fumarate 25 MG TABLET PO (20:46)
[2023-11-08 08:00] VITALS: BP 133/72; PULSE 72; RESP 16; TEMP 36.1; O2SAT 94
[2023-11-08] MEDS: Vortioxetine Hydrobromide 20 MG TABLET PO (09:33)
[2023-11-08] MEDS: LORazepam 0.5 MG TABLET PO ×2 (09:33→20:26)
[2023-11-08] MEDS: Folic Acid 1 MG TABLET PO (09:33)
[2023-11-08] MEDS: Thiamine HCL 100 MG TABLET PO ×2 (09:33→20:26)
[2023-11-08] MEDS: Memantine HCl 10 MG TABLET PO ×2 (09:36→20:26)
[2023-11-08] MEDS: Propranolol HCL 10 MG TABLET PO ×3 (09:36→20:26)
--- NOTE | 2023-11-08 11:00 | P.PNPSI_ITS ---
Subjective Subjective Date of Service: 11/08/23 Reason For Visit: Depression, Dementia Subjective Notes: Conditional Voluntary Healthcare Proxy: No Guardianship: No Medical Problems Affecting Mental Status: No Interim History: Pt seen, discussed with team. Anxious today, most likely due to milieu activity. Social, visable in milieu and engaged in activity. Reports depressive/anxious sx along with back pain. Medication Compliance: Yes Side effects from medications: No Attending Groups: Yes Review of Systems Acute medical concerns: No Medical Review of Systems: unchanged Review of Systems Review of Systems Back pain Mental Status Exam Mental Status Exam Patient Appearance: Appropriate Patient Orientation: Person and Situation Level of Consciousness: Awake Patient Behavior: Talkative, Passive and Good Eye Contact Mood Description: Depressed Affect Description: Flat Patient Cognition Impaired: Yes Ability to Follow Directions: Good Speech Pattern: Clear Memory Description: Episodic Impaired Hallucinations: None Delusions: Not Present Thought Process: Distracted and Slowed Thinking Thought Content: positive for Ruth and positive for Circumstantial Judgement: Fair Diagnostics Vital Signs (24Hr): Vital Signs - 24 hr 11/07/23 15:20 11/07/23 20:00 11/07/23 20:45 Temperature 97.7 F Pulse Rate 80 80 80 Respiratory Rate 18 Blood Pressure 114/83 135/65 133/65 Pulse Oximetry 96 Oxygen Delivery Method Room Air BMI result Body Mass Index 20.1 Labs 11/04/23 13:12 11/04/23 13:12 Medications Medications Current Medications Acetaminophen (Acetaminophen 325 Mg Tablet) 650 mg PO Q6H PRN PRN Reason: Headache/Pain Mild Scale (1-3) Last Admin: 11/05/23 16:59 Dose: 650 mg Al Hydroxide/Mg Hydroxide (Magnesium Hydrox/Alum Hydrox 30 Ml Oral.Susp) 30 ml PO Q6H PRN PRN Reason: Heartburn/Nausea Donepezil HCl (Donepezil Hcl 10 Mg Tablet) 10 mg PO BEDTIME [facility] Last Admin: 11/07/23 20:44 Dose: 10 mg Folic Acid (Folic Acid 1 Mg Tablet) 1 mg PO DAILY [facility] Last Admin: 11/08/23 09:33 Dose: 1 mg Hydroxyzine HCl (Hydroxyzine Hcl 25 Mg Tablet) 25 mg PO Q6H PRN PRN Reason: Anxiety Ibuprofen (Ibuprofen 200 Mg Tablet) 200 mg PO Q6H PRN PRN Reason: Pain, Moderate(Pain Scale 4-6) Last Admin: 11/07/23 13:49 Dose: 200 mg Lorazepam (Lorazepam 0.5 Mg Tablet) 0.5 mg PO BID [facility] Last Admin: 11/08/23 09:33 Dose: 0.5 mg Magnesium Hydroxide (Milk Of Magnesia 30 Ml Oral.Susp) 30 ml PO DAILY PRN PRN Reason: Constipation Melatonin (Melatonin 3 Mg Tablet) 6 mg PO BEDTIME [facility] Last Admin: 11/07/23 20:44 Dose: 6 mg Memantine (Memantine Hcl 10 Mg Tablet) 10 mg PO BID [facility] Last Admin: 11/08/23 09:36 Dose: 10 mg Mirtazapine (Mirtazapine 15 Mg Tablet) 15 mg PO BEDTIME [facility] Last Admin: 11/07/23 20:45 Dose: 15 mg Non-Formulary Medication (Brexpiprazole [Rexulti]) 1 mg PO DAILY [facility] Propranolol HCl (Propranolol Hcl 10 Mg Tablet) 10 mg PO TID [facility]; Protocol Last Admin: 11/08/23 09:36 Dose: 10 mg Quetiapine Fumarate (Quetiapine Fumarate 25 Mg Tablet) 25 mg PO BEDTIME [facility] Last Admin: 11/07/23 20:46 Dose: 25 mg Quetiapine Fumarate (Quetiapine Fumarate 25 Mg Tablet) 25 mg PO DAILY PRN PRN Reason: Anxiety Last Admin: 11/05/23 09:16 Dose: 25 mg Thiamine HCl (Thiamine Hcl 100 Mg Tablet) 100 mg PO BID [facility] Last Admin: 11/08/23 09:33 Dose: 100 mg Trazodone HCl (Trazodone Hcl 50 Mg Tablet) 50 mg PO BEDTIME PRN PRN Reason: Insomnia Last Admin: 11/07/23 20:46 Dose: 50 mg Trazodone HCl (Trazodone Hcl 50 Mg Tablet) 50 mg PO BEDTIME MRX1 PRN PRN Reason: Insomnia Vortioxetine (Vortioxetine Hydrobromide 20 Mg Tablet) 20 mg PO DAILY [facility] Last Admin: 11/08/23 09:33 Dose: 20 mg Allergies Allergies Allergy/AdvReac Type Severity Reaction Status Date / Time risperidone [From Risperdal] Allergy Intermediate UNKNOWN Verified 11/04/23 12:53 Sulfa (Sulfonamide Allergy Intermediate rash Verified 11/04/23 12:53 Antibiotics) From BENADRYL Allergy Intermediate DIZZY Uncoded 11/04/23 12:53 Assessment & Plan Assessment & Plan (1) Depression: Status: Acute Code(s): F32.A - Depression, unspecified (2) Dementia: Qualifiers: Dementia behavioral or psychological symptom: unspecified whether behavioral, psychotic, or mood disturbance or anxiety Dementia severity: mild Dementia type: unspecified type Qualified Code(s): F03.A0 - Unspecified dementia, mild, without behavioral disturbance, psychotic disturbance, mood disturbance, and anxiety Status: Acute Code(s): F03.90 - Unspecified dementia, unspecified severity, without behavioral disturbance, psychotic disturbance, mood disturbance, and anxiety Plan 73 yo female, history of recurrent major depression with psychotic features, dementia, and multiple medical comorbidities. [place] [facility] [place]), with increasing symptoms of depression. Pt reports poor sleep, appetite. She reports she has been taking medications is willing to make any changes that are needed and will help. Plan: CV 15 minute checks Collateral contact with family Increase Rexulti to 1 mg daily from 0.5 mg daily Diagnostics as needed 11/07: Continue tx. Reason for continued inpatient stay Substantial Risk for: rapid decompensation Time Spent With Patient Time: Total time managing care of this patient today ____ minutes.
[2023-11-08 14:27] VITALS: BP 121/64; PULSE 72
[2023-11-08 20:00] VITALS: BP 109/59; PULSE 69; RESP 18; TEMP 36.4; O2SAT 95
[2023-11-08 20:26] VITALS: BP 109/59; PULSE 69
[2023-11-08] MEDS: Melatonin 3 MG TABLET 6 MG PO (20:26)
[2023-11-08] MEDS: Donepezil HCl 10 MG TABLET PO (20:26)
[2023-11-08] MEDS: traZODone HCL 50 MG TABLET PO (20:26)
[2023-11-08] MEDS: QUEtiapine Fumarate 25 MG TABLET PO (20:26)
[2023-11-08] MEDS: Mirtazapine 15 MG TABLET PO (20:26)
[2023-11-09 09:08] VITALS: BP 132/65; PULSE 71; RESP 17; TEMP 36.9; O2SAT 97
[2023-11-09] MEDS: Memantine HCl 10 MG TABLET PO ×2 (09:11→20:59)
[2023-11-09] MEDS: LORazepam 0.5 MG TABLET PO ×2 (09:11→20:58)
[2023-11-09] MEDS: Folic Acid 1 MG TABLET PO (09:11)
[2023-11-09] MEDS: Vortioxetine Hydrobromide 20 MG TABLET PO (09:11)
[2023-11-09 09:12] VITALS: BP 132/65; PULSE 71
[2023-11-09] MEDS: Propranolol HCL 10 MG TABLET PO ×3 (09:12→20:56)
[2023-11-09] MEDS: Thiamine HCL 100 MG TABLET PO ×2 (09:12→20:59)
--- NOTE | 2023-11-09 09:46 | HO.PSYCHPN ---
Subjective Subjective Date of Service: 11/09/23 Reason For Visit: Depression, Dementia Subjective Notes: Conditional Voluntary Interim History: Reviewed with Judy results of her urine culture and back xray. She reports she was supposed to have an MRI of her spine per PCP report, however this has not been scheduled to her knowledge. She reports anxiety in current milieu. Several questions about peers who are struggling currently. Discussed some of the symptoms she was experiencing at home prior to admission- depression , feeling lost sometimes , not knowing what to do. Medication Compliance: Yes Side effects from medications: No Attending Groups: Intermittent Review of Systems Back pain Denies sx of UTI Medical Review of Systems: unchanged Review of Systems Review of Systems Back pain Denies sx of UTI Mental Status Exam Mental Status Exam Patient Appearance: Appropriate Patient Orientation: Person and Situation Level of Consciousness: Awake Patient Behavior: Talkative, Passive and Good Eye Contact Mood Description: Depressed Affect Description: Flat Patient Cognition Impaired: Yes Ability to Follow Directions: Good Speech Pattern: Clear Memory Description: Episodic Impaired Hallucinations: None Delusions: Not Present Thought Process: Distracted and Slowed Thinking Thought Content: positive for [place] and positive for Circumstantial Judgement: Fair Diagnostics Vital Signs (24Hr): Vital Signs - 24 hr 11/08/23 14:27 11/08/23 20:00 11/08/23 20:26 Temperature 97.5 F Pulse Rate 72 69 69 Respiratory Rate 18 Blood Pressure 121/64 109/59 L 109/59 L Pulse Oximetry 95 Oxygen Delivery Method Room Air 11/09/23 09:08 11/09/23 09:12 Temperature 98.4 F Pulse Rate 71 71 Respiratory Rate 17 Blood Pressure 132/65 132/65 Pulse Oximetry 97 Oxygen Delivery Method Room Air BMI result Body Mass Index 20.1 Labs 11/04/23 13:12 11/04/23 13:12 Imaging Radiology Impressions: ITS Impressions Lumbar Spine X-Ray 11/07/23 14:05 IMPRESSION: 1. Compression deformity of the L2 vertebral body with loss of 40-50% vertebral body height is increased from previous height loss of 20-30% on 07/09/2023. 2. Chronic compression deformities of L1 and T12 vertebral bodies, similar to prior. 3. Transitional anatomy with lumbarization of the S1 vertebral body. Medications Medications Current Medications Acetaminophen (Acetaminophen 325 Mg Tablet) 650 mg PO Q6H PRN PRN Reason: Headache/Pain Mild Scale (1-3) Last Admin: 11/05/23 16:59 Dose: 650 mg Al Hydroxide/Mg Hydroxide (Magnesium Hydrox/Alum Hydrox 30 Ml Oral.Susp) 30 ml PO Q6H PRN PRN Reason: Heartburn/Nausea Donepezil HCl (Donepezil Hcl 10 Mg Tablet) 10 mg PO BEDTIME [facility] Last Admin: 11/08/23 20:26 Dose: 10 mg Folic Acid (Folic Acid 1 Mg Tablet) 1 mg PO DAILY [facility] Last Admin: 11/09/23 09:11 Dose: 1 mg Hydroxyzine HCl (Hydroxyzine Hcl 25 Mg Tablet) 25 mg PO Q6H PRN PRN Reason: Anxiety Ibuprofen (Ibuprofen 200 Mg Tablet) 200 mg PO Q6H PRN PRN Reason: Pain, Moderate(Pain Scale 4-6) Last Admin: 11/07/23 13:49 Dose: 200 mg Lorazepam (Lorazepam 0.5 Mg Tablet) 0.5 mg PO BID [facility] Last Admin: 11/09/23 09:11 Dose: 0.5 mg Magnesium Hydroxide (Milk Of Magnesia 30 Ml Oral.Susp) 30 ml PO DAILY PRN PRN Reason: Constipation Melatonin (Melatonin 3 Mg Tablet) 6 mg PO BEDTIME [facility] Last Admin: 11/08/23 20:26 Dose: 6 mg Memantine (Memantine Hcl 10 Mg Tablet) 10 mg PO BID [facility] Last Admin: 11/09/23 09:11 Dose: 10 mg Mirtazapine (Mirtazapine 15 Mg Tablet) 15 mg PO BEDTIME [facility] Last Admin: 11/08/23 20:26 Dose: 15 mg Non-Formulary Medication (Brexpiprazole [Rexulti]) 1 mg PO DAILY [facility] Propranolol HCl (Propranolol Hcl 10 Mg Tablet) 10 mg PO TID [facility]; Protocol Last Admin: 11/09/23 09:12 Dose: 10 mg Quetiapine Fumarate (Quetiapine Fumarate 25 Mg Tablet) 25 mg PO BEDTIME [facility] Last Admin: 11/08/23 20:26 Dose: 25 mg Quetiapine Fumarate (Quetiapine Fumarate 25 Mg Tablet) 25 mg PO DAILY PRN PRN Reason: Anxiety Last Admin: 11/05/23 09:16 Dose: 25 mg Thiamine HCl (Thiamine Hcl 100 Mg Tablet) 100 mg PO BID [facility] Last Admin: 11/09/23 09:12 Dose: 100 mg Trazodone HCl (Trazodone Hcl 50 Mg Tablet) 50 mg PO BEDTIME PRN PRN Reason: Insomnia Last Admin: 11/08/23 20:26 Dose: 50 mg Trazodone HCl (Trazodone Hcl 50 Mg Tablet) 50 mg PO BEDTIME MRX1 PRN PRN Reason: Insomnia Vortioxetine (Vortioxetine Hydrobromide 20 Mg Tablet) 20 mg PO DAILY [facility] Last Admin: 11/09/23 09:11 Dose: 20 mg Allergies Allergies Allergy/AdvReac Type Severity Reaction Status Date / Time risperidone [From Risperdal] Allergy Intermediate UNKNOWN Verified 11/04/23 12:53 Sulfa (Sulfonamide Allergy Intermediate rash Verified 11/04/23 12:53 Antibiotics) From BENADRYL Allergy Intermediate DIZZY Uncoded 11/04/23 12:53 Assessment & Plan Assessment & Plan (1) Depression: Status: Acute Code(s): F32.A - Depression, unspecified (2) Dementia: Qualifiers: Dementia behavioral or psychological symptom: unspecified whether behavioral, psychotic, or mood disturbance or anxiety Dementia severity: mild Dementia type: unspecified type Qualified Code(s): F03.A0 - Unspecified dementia, mild, without behavioral disturbance, psychotic disturbance, mood disturbance, and anxiety Status: Acute Code(s): F03.90 - Unspecified dementia, unspecified severity, without behavioral disturbance, psychotic disturbance, mood disturbance, and anxiety Plan 73 yo female, history of recurrent major depression with psychotic features, dementia, and multiple medical comorbidities. [place] [facility] [place]), with increasing symptoms of depression. Pt reports poor sleep, appetite. She reports she has been taking medications is willing to make any changes that are needed and will help. Plan: CV 15 minute checks Collateral contact with family Increase Rexulti to 1 mg daily from 0.5 mg daily Diagnostics as needed 11/07: Continue tx. 11/08: Reports no real change from Rexulti increase. Sleep appears to be intact since her admission Appetite is fair. We did order Ensure/Boost as she enjoys this as a snack. Reason for continued inpatient stay Substantial Risk for: rapid decompensation Time Spent With Patient Time: Total time managing care of this patient today ____ minutes.
[2023-11-09 14:28] VITALS: BP 105/63; PULSE 79
[2023-11-09 20:45] VITALS: BP 129/71; PULSE 77; TEMP 36.8
[2023-11-09] MEDS: QUEtiapine Fumarate 25 MG TABLET PO (20:57)
[2023-11-09] MEDS: Donepezil HCl 10 MG TABLET PO (20:57)
[2023-11-09] MEDS: Melatonin 3 MG TABLET 6 MG PO (20:58)
[2023-11-09] MEDS: traZODone HCL 50 MG TABLET PO (20:58)
[2023-11-09] MEDS: Mirtazapine 15 MG TABLET PO (20:59)
[2023-11-10 08:00] VITALS: BP 114/62; PULSE 70; RESP 18; TEMP 36.2; O2SAT 94
[2023-11-10] MEDS: Folic Acid 1 MG TABLET PO (08:59)
[2023-11-10] MEDS: Memantine HCl 10 MG TABLET PO ×2 (08:59→21:08)
[2023-11-10] MEDS: Propranolol HCL 10 MG TABLET PO ×3 (08:59→21:11)
[2023-11-10] MEDS: Vortioxetine Hydrobromide 20 MG TABLET PO (08:59)
[2023-11-10] MEDS: LORazepam 0.5 MG TABLET PO ×2 (08:59→21:07)
[2023-11-10] MEDS: Thiamine HCL 100 MG TABLET PO ×2 (08:59→21:06)
--- NOTE | 2023-11-10 16:29 | HO.PSYCHPN ---
Subjective Subjective Date of Service: 11/10/23 Reason For Visit: Depression, Dementia Subjective Notes: Conditional Voluntary Interim History: Mild confusion. Reports she did not sleep-team reports she was observed to have slept. States appetite is intact. Today, using the phone, calling family to bring in clothing, visiting with , very social with room-mate, as both are mutually supportive of each other. States she is still feeling depressed, however, with some improvement as there is less anxiety. Engages with staff and peers. Brightens when connected. Medication Compliance: Yes Side effects from medications: No Attending Groups: Intermittent Review of Systems Acute medical concerns: No Back pain Medical Review of Systems: unchanged Review of Systems Review of Systems Back pain Mental Status Exam Mental Status Exam Patient Appearance: Appropriate Patient Orientation: Person and Situation Level of Consciousness: Awake Patient Behavior: Talkative, Passive and Good Eye Contact Mood Description: Depressed Affect Description: Flat Patient Cognition Impaired: Yes Ability to Follow Directions: Good Speech Pattern: Clear Memory Description: Episodic Impaired Hallucinations: None Delusions: Not Present Thought Process: Distracted and Slowed Thinking Thought Content: positive for [place] and positive for Circumstantial Judgement: Fair Diagnostics Vital Signs (24Hr): Vital Signs - 24 hr 11/09/23 20:45 11/10/23 08:00 Temperature 98.2 F 97.2 F Pulse Rate 77 70 Respiratory Rate 18 Blood Pressure 129/71 114/62 Pulse Oximetry 94 Oxygen Delivery Method Room Air BMI result Body Mass Index 20.1 Labs 11/04/23 13:12 11/04/23 13:12 Imaging Radiology Impressions: ITS Impressions Lumbar Spine X-Ray 11/07/23 14:05 IMPRESSION: 1. Compression deformity of the L2 vertebral body with loss of 40-50% vertebral body height is increased from previous height loss of 20-30% on 07/09/2023. 2. Chronic compression deformities of L1 and T12 vertebral bodies, similar to prior. 3. Transitional anatomy with lumbarization of the S1 vertebral body. Medications Medications Current Medications Acetaminophen (Acetaminophen 325 Mg Tablet) 650 mg PO Q6H PRN PRN Reason: Headache/Pain Mild Scale (1-3) Last Admin: 11/05/23 16:59 Dose: 650 mg Al Hydroxide/Mg Hydroxide (Magnesium Hydrox/Alum Hydrox 30 Ml Oral.Susp) 30 ml PO Q6H PRN PRN Reason: Heartburn/Nausea Donepezil HCl (Donepezil Hcl 10 Mg Tablet) 10 mg PO BEDTIME [facility] Last Admin: 11/09/23 20:57 Dose: 10 mg Folic Acid (Folic Acid 1 Mg Tablet) 1 mg PO DAILY [facility] Last Admin: 11/10/23 08:59 Dose: 1 mg Hydroxyzine HCl (Hydroxyzine Hcl 25 Mg Tablet) 25 mg PO Q6H PRN PRN Reason: Anxiety Ibuprofen (Ibuprofen 200 Mg Tablet) 200 mg PO Q6H PRN PRN Reason: Pain, Moderate(Pain Scale 4-6) Last Admin: 11/07/23 13:49 Dose: 200 mg Lorazepam (Lorazepam 0.5 Mg Tablet) 0.5 mg PO BID [facility] Last Admin: 11/10/23 08:59 Dose: 0.5 mg Magnesium Hydroxide (Milk Of Magnesia 30 Ml Oral.Susp) 30 ml PO DAILY PRN PRN Reason: Constipation Melatonin (Melatonin 3 Mg Tablet) 6 mg PO BEDTIME [facility] Last Admin: 11/09/23 20:58 Dose: 6 mg Memantine (Memantine Hcl 10 Mg Tablet) 10 mg PO BID [facility] Last Admin: 11/10/23 08:59 Dose: 10 mg Mirtazapine (Mirtazapine 15 Mg Tablet) 15 mg PO BEDTIME [facility] Last Admin: 11/09/23 20:59 Dose: 15 mg Non-Formulary Medication (Brexpiprazole [Rexulti]) 1 mg PO DAILY [facility] Propranolol HCl (Propranolol Hcl 10 Mg Tablet) 10 mg PO TID [facility]; Protocol Last Admin: 11/10/23 15:39 Dose: 10 mg Quetiapine Fumarate (Quetiapine Fumarate 25 Mg Tablet) 25 mg PO BEDTIME [facility] Last Admin: 11/09/23 20:57 Dose: 25 mg Quetiapine Fumarate (Quetiapine Fumarate 25 Mg Tablet) 25 mg PO DAILY PRN PRN Reason: Anxiety Last Admin: 11/05/23 09:16 Dose: 25 mg Thiamine HCl (Thiamine Hcl 100 Mg Tablet) 100 mg PO BID [facility] Last Admin: 11/10/23 08:59 Dose: 100 mg Trazodone HCl (Trazodone Hcl 50 Mg Tablet) 50 mg PO BEDTIME PRN PRN Reason: Insomnia Last Admin: 11/09/23 20:58 Dose: 50 mg Trazodone HCl (Trazodone Hcl 50 Mg Tablet) 50 mg PO BEDTIME MRX1 PRN PRN Reason: Insomnia Vortioxetine (Vortioxetine Hydrobromide 20 Mg Tablet) 20 mg PO DAILY [facility] Last Admin: 11/10/23 08:59 Dose: 20 mg Allergies Allergies Allergy/AdvReac Type Severity Reaction Status Date / Time risperidone [From Risperdal] Allergy Intermediate UNKNOWN Verified 11/04/23 12:53 Sulfa (Sulfonamide Allergy Intermediate rash Verified 11/04/23 12:53 Antibiotics) From BENADRYL Allergy Intermediate DIZZY Uncoded 11/04/23 12:53 Assessment & Plan Assessment & Plan (1) Depression: Status: Acute Code(s): F32.A - Depression, unspecified (2) Dementia: Qualifiers: Dementia behavioral or psychological symptom: unspecified whether behavioral, psychotic, or mood disturbance or anxiety Dementia severity: mild Dementia type: unspecified type Qualified Code(s): F03.A0 - Unspecified dementia, mild, without behavioral disturbance, psychotic disturbance, mood disturbance, and anxiety Status: Acute Code(s): F03.90 - Unspecified dementia, unspecified severity, without behavioral disturbance, psychotic disturbance, mood disturbance, and anxiety Plan 73 yo female, history of recurrent major depression with psychotic features, dementia, and multiple medical comorbidities. Recent discharge from [facility] she reports (09/03/23), with increasing symptoms of depression. Pt reports poor sleep, appetite. She reports she has been taking medications is willing to make any changes that are needed and will help. Plan: CV 15 minute checks Collateral contact with family Increase Rexulti to 1 mg daily from 0.5 mg daily Diagnostics as needed 11/07: Continue tx. 11/09: Continue tx Reason for continued inpatient stay Substantial Risk for: rapid decompensation Time Spent With Patient Time: Total time managing care of this patient today ____ minutes.
[2023-11-10 20:00] VITALS: BP 133/62; PULSE 73; TEMP 36.4
[2023-11-10] MEDS: Melatonin 3 MG TABLET 6 MG PO (21:07)
[2023-11-10] MEDS: QUEtiapine Fumarate 50 MG TABLET PO (21:07)
[2023-11-10] MEDS: Donepezil HCl 10 MG TABLET PO (21:07)
[2023-11-10] MEDS: Mirtazapine 15 MG TABLET PO (21:08)
[2023-11-10] MEDS: traZODone HCL 50 MG TABLET PO (21:17)
--- NOTE | 2023-11-10 23:00 | HO.PSYCHPN ---
Subjective Subjective Date of Service: 11/10/23 Reason For Visit: Depression, Dementia Subjective Notes: Conditional Voluntary Interim History: The patient is depressed and ruminating. Complains of lack of happen appetite hopeless helpless has not been taking Rexulti On Trintellix Ativan b.i.d. Seroquel at bedtime Medication Compliance: Yes Review of Systems Medical Review of Systems: unchanged Mental Status Exam Mental Status Exam Patient Appearance: Appropriate Patient Orientation: Person and Situation Level of Consciousness: Awake Patient Behavior: Talkative, Passive and Good Eye Contact Mood Description: Depressed and Apprehensive Affect Description: Flat Patient Cognition Impaired: Yes Ability to Follow Directions: Good Speech Pattern: Clear Memory Description: Episodic Impaired Hallucinations: None Delusions: Not Present Thought Process: Distracted and Slowed Thinking Thought Content: positive for [place] and positive for Circumstantial Depressive Symptoms: Increased Anxiety, Hopelessness, Increased Fatigue and Low Self Esteem Judgement: Fair Diagnostics Vital Signs (24Hr): Vital Signs - 24 hr 11/10/23 08:00 Temperature 97.2 F Pulse Rate 70 Respiratory Rate 18 Blood Pressure 114/62 Pulse Oximetry 94 Oxygen Delivery Method Room Air BMI result Body Mass Index 20.1 Labs 11/04/23 13:12 11/04/23 13:12 Imaging Radiology Impressions: ITS Impressions Lumbar Spine X-Ray 11/07/23 14:05 IMPRESSION: 1. Compression deformity of the L2 vertebral body with loss of 40-50% vertebral body height is increased from previous height loss of 20-30% on 07/09/2023. 2. Chronic compression deformities of L1 and T12 vertebral bodies, similar to prior. 3. Transitional anatomy with lumbarization of the S1 vertebral body. Medications Medications Current Medications Acetaminophen (Acetaminophen 325 Mg Tablet) 650 mg PO Q6H PRN PRN Reason: Headache/Pain Mild Scale (1-3) Last Admin: 11/05/23 16:59 Dose: 650 mg Al Hydroxide/Mg Hydroxide (Magnesium Hydrox/Alum Hydrox 30 Ml Oral.Susp) 30 ml PO Q6H PRN PRN Reason: Heartburn/Nausea Donepezil HCl (Donepezil Hcl 10 Mg Tablet) 10 mg PO BEDTIME [facility] Last Admin: 11/10/23 21:07 Dose: 10 mg Folic Acid (Folic Acid 1 Mg Tablet) 1 mg PO DAILY [facility] Last Admin: 11/10/23 08:59 Dose: 1 mg Hydroxyzine HCl (Hydroxyzine Hcl 25 Mg Tablet) 25 mg PO Q6H PRN PRN Reason: Anxiety Ibuprofen (Ibuprofen 200 Mg Tablet) 200 mg PO Q6H PRN PRN Reason: Pain, Moderate(Pain Scale 4-6) Last Admin: 11/07/23 13:49 Dose: 200 mg Lorazepam (Lorazepam 0.5 Mg Tablet) 0.5 mg PO BID [facility] Last Admin: 11/10/23 21:07 Dose: 0.5 mg Magnesium Hydroxide (Milk Of Magnesia 30 Ml Oral.Susp) 30 ml PO DAILY PRN PRN Reason: Constipation Melatonin (Melatonin 3 Mg Tablet) 6 mg PO BEDTIME [facility] Last Admin: 11/10/23 21:07 Dose: 6 mg Memantine (Memantine Hcl 10 Mg Tablet) 10 mg PO BID [facility] Last Admin: 11/10/23 21:08 Dose: 10 mg Mirtazapine (Mirtazapine 15 Mg Tablet) 15 mg PO BEDTIME [facility] Last Admin: 11/10/23 21:08 Dose: 15 mg Non-Formulary Medication (Brexpiprazole [Rexulti]) 1 mg PO DAILY [facility] Propranolol HCl (Propranolol Hcl 10 Mg Tablet) 10 mg PO TID [facility]; Protocol Last Admin: 11/10/23 21:11 Dose: 10 mg Quetiapine Fumarate (Quetiapine Fumarate 25 Mg Tablet) 25 mg PO DAILY PRN PRN Reason: Anxiety Last Admin: 11/05/23 09:16 Dose: 25 mg Quetiapine Fumarate (Quetiapine Fumarate 50 Mg Tablet) 50 mg PO BEDTIME [facility] Last Admin: 11/10/23 21:07 Dose: 50 mg Thiamine HCl (Thiamine Hcl 100 Mg Tablet) 100 mg PO BID [facility] Last Admin: 11/10/23 21:06 Dose: 100 mg Trazodone HCl (Trazodone Hcl 50 Mg Tablet) 50 mg PO BEDTIME PRN PRN Reason: Insomnia Last Admin: 11/10/23 21:17 Dose: 50 mg Vortioxetine (Vortioxetine Hydrobromide 20 Mg Tablet) 20 mg PO DAILY [facility] Last Admin: 11/10/23 08:59 Dose: 20 mg Allergies Allergies Allergy/AdvReac Type Severity Reaction Status Date / Time risperidone [From Risperdal] Allergy Intermediate UNKNOWN Verified 11/04/23 12:53 Sulfa (Sulfonamide Allergy Intermediate rash Verified 11/04/23 12:53 Antibiotics) From BENADRYL Allergy Intermediate DIZZY Uncoded 11/04/23 12:53 Assessment & Plan Assessment & Plan (1) Depression: Status: Acute Code(s): F32.A - Depression, unspecified (2) Dementia: Qualifiers: Dementia behavioral or psychological symptom: unspecified whether behavioral, psychotic, or mood disturbance or anxiety Dementia severity: mild Dementia type: unspecified type Qualified Code(s): F03.A0 - Unspecified dementia, mild, without behavioral disturbance, psychotic disturbance, mood disturbance, and anxiety Status: Acute Code(s): F03.90 - Unspecified dementia, unspecified severity, without behavioral disturbance, psychotic disturbance, mood disturbance, and anxiety Plan 73 yo female, history of recurrent major depression with psychotic features, dementia, and multiple medical comorbidities. Recent discharge from [facility] [place] she reports (09/03/23), with increasing symptoms of depression. Pt reports poor sleep, appetite. She reports she has been taking medications is willing to make any changes that are needed and will help. Plan: CV 15 minute checks Collateral contact with family Increase Rexulti to 1 mg daily from 0.5 mg daily Diagnostics as needed 11/07: Continue tx. 11/09: Continue tx 11/10/2023 Increase Seroquel to 50 mg at bedtime restart Rexulti 1 mg in the morning Guardian/Caregiver educated on: medication risk/benefits and therapeutic strategies Informed Consent: further education needed Reason for continued inpatient stay Substantial Risk for: inability to function, rapid decompensation and med/psych decompensation Time Spent With Patient Time: Total time managing care of this patient today _30__ minutes.
[2023-11-11 09:00] VITALS: BP 128/75; PULSE 78; RESP 18; TEMP 36.3; O2SAT 94
[2023-11-11] MEDS: Vortioxetine Hydrobromide 20 MG TABLET PO (09:00)
[2023-11-11] MEDS: Memantine HCl 10 MG TABLET PO ×2 (09:00→20:48)
[2023-11-11] MEDS: Folic Acid 1 MG TABLET PO (09:00)
[2023-11-11] MEDS: LORazepam 0.5 MG TABLET PO ×2 (09:00→20:48)
[2023-11-11] MEDS: Propranolol HCL 10 MG TABLET PO ×3 (09:00→20:48)
[2023-11-11] MEDS: Thiamine HCL 100 MG TABLET PO ×2 (09:00→20:48)
[2023-11-11] MEDS: Brexpiprazole 1 MG TABLET PO (09:50)
--- NOTE | 2023-11-11 09:59 | P.PNPSI_ITS ---
Subjective Subjective Date of Service: 11/11/23 Reason For Visit: Depression, Dementia Subjective Notes: Conditional Voluntary Interim History: The patient withdrawn depressed lethargic complains of decreased appetite feeling empty depressed hopeless Rexulti mirtazapine augmentation no gross hallucinations needs encouragement to stay out of her room Mental Status Exam Mental Status Exam Patient Appearance: Appropriate Patient Orientation: Person, Place and Situation Level of Consciousness: Awake Patient Behavior: Talkative, Passive and Good Eye Contact Mood Description: Depressed and Apprehensive Affect Description: Flat Patient Cognition Impaired: Yes Ability to Follow Directions: Good Speech Pattern: Clear Memory Description: Episodic Impaired Hallucinations: None Delusions: Not Present Thought Process: Distracted and Slowed Thinking Thought Content: positive for [place] and positive for Circumstantial Depressive Symptoms: Increased Anxiety, Hopelessness, Increased Fatigue and Low Self Esteem Judgement: Fair Diagnostics Vital Signs (24Hr): Vital Signs - 24 hr 11/10/23 20:00 11/11/23 09:00 Temperature 97.5 F 97.3 F Pulse Rate 73 78 Respiratory Rate 18 Blood Pressure 133/62 128/75 Pulse Oximetry 94 Oxygen Delivery Method Room Air BMI result Body Mass Index 20.1 Labs 11/04/23 13:12 11/04/23 13:12 Imaging Radiology Impressions: ITS Impressions Lumbar Spine X-Ray 11/07/23 14:05 IMPRESSION: 1. Compression deformity of the L2 vertebral body with loss of 40-50% vertebral body height is increased from previous height loss of 20-30% on 07/09/2023. 2. Chronic compression deformities of L1 and T12 vertebral bodies, similar to prior. 3. Transitional anatomy with lumbarization of the S1 vertebral body. Medications Medications Current Medications Acetaminophen (Acetaminophen 325 Mg Tablet) 650 mg PO Q6H PRN PRN Reason: Headache/Pain Mild Scale (1-3) Last Admin: 11/05/23 16:59 Dose: 650 mg Al Hydroxide/Mg Hydroxide (Magnesium Hydrox/Alum Hydrox 30 Ml Oral.Susp) 30 ml PO Q6H PRN PRN Reason: Heartburn/Nausea Brexpiprazole (Brexpiprazole 1 Mg Tablet) 1 mg PO DAILY [facility] Last Admin: 11/11/23 09:50 Dose: 1 mg Donepezil HCl (Donepezil Hcl 10 Mg Tablet) 10 mg PO BEDTIME [facility] Last Admin: 11/10/23 21:07 Dose: 10 mg Folic Acid (Folic Acid 1 Mg Tablet) 1 mg PO DAILY [facility] Last Admin: 11/11/23 09:00 Dose: 1 mg Hydroxyzine HCl (Hydroxyzine Hcl 25 Mg Tablet) 25 mg PO Q6H PRN PRN Reason: Anxiety Ibuprofen (Ibuprofen 200 Mg Tablet) 200 mg PO Q6H PRN PRN Reason: Pain, Moderate(Pain Scale 4-6) Last Admin: 11/07/23 13:49 Dose: 200 mg Lorazepam (Lorazepam 0.5 Mg Tablet) 0.5 mg PO BID [facility] Last Admin: 11/11/23 09:00 Dose: 0.5 mg Magnesium Hydroxide (Milk Of Magnesia 30 Ml Oral.Susp) 30 ml PO DAILY PRN PRN Reason: Constipation Melatonin (Melatonin 3 Mg Tablet) 6 mg PO BEDTIME [facility] Last Admin: 11/10/23 21:07 Dose: 6 mg Memantine (Memantine Hcl 10 Mg Tablet) 10 mg PO BID [facility] Last Admin: 11/11/23 09:00 Dose: 10 mg Mirtazapine (Mirtazapine 15 Mg Tablet) 15 mg PO BEDTIME [facility] Last Admin: 11/10/23 21:08 Dose: 15 mg Propranolol HCl (Propranolol Hcl 10 Mg Tablet) 10 mg PO TID [facility]; Protocol Last Admin: 11/11/23 09:00 Dose: 10 mg Quetiapine Fumarate (Quetiapine Fumarate 25 Mg Tablet) 25 mg PO DAILY PRN PRN Reason: Anxiety Last Admin: 11/05/23 09:16 Dose: 25 mg Quetiapine Fumarate (Quetiapine Fumarate 50 Mg Tablet) 50 mg PO BEDTIME [facility] Last Admin: 11/10/23 21:07 Dose: 50 mg Thiamine HCl (Thiamine Hcl 100 Mg Tablet) 100 mg PO BID [facility] Last Admin: 11/11/23 09:00 Dose: 100 mg Trazodone HCl (Trazodone Hcl 50 Mg Tablet) 50 mg PO BEDTIME PRN PRN Reason: Insomnia Last Admin: 11/10/23 21:17 Dose: 50 mg Vortioxetine (Vortioxetine Hydrobromide 20 Mg Tablet) 20 mg PO DAILY [facility] Last Admin: 11/11/23 09:00 Dose: 20 mg Allergies Allergies Allergy/AdvReac Type Severity Reaction Status Date / Time risperidone [From Risperdal] Allergy Intermediate UNKNOWN Verified 11/04/23 12:53 Sulfa (Sulfonamide Allergy Intermediate rash Verified 11/04/23 12:53 Antibiotics) From BENADRYL Allergy Intermediate DIZZY Uncoded 11/04/23 12:53 Assessment & Plan Assessment & Plan (1) Major depressive disorder, recurrent severe without psychotic features: Status: Acute Code(s): F33.2 - Major depressive disorder, recurrent severe without psychotic features (2) Dementia: Qualifiers: Dementia behavioral or psychological symptom: unspecified whether behavioral, psychotic, or mood disturbance or anxiety Dementia severity: mild Dementia type: unspecified type Qualified Code(s): F03.A0 - Unspecified dementia, mild, without behavioral disturbance, psychotic disturbance, mood disturbance, and anxiety Status: Acute Code(s): F03.90 - Unspecified dementia, unspecified severity, without behavioral disturbance, psychotic disturbance, mood disturbance, and anxiety Plan 73 yo female, history of recurrent major depression with psychotic features, dementia, and multiple medical comorbidities. Recent discharge from [facility] [place] she reports (09/03/23), with increasing symptoms of depression. Pt reports poor sleep, appetite. She reports she has been taking medications is willing to make any changes that are needed and will help. Plan: CV 15 minute checks Collateral contact with family Increase Rexulti to 1 mg daily from 0.5 mg daily Diagnostics as needed 11/07: Continue tx. 11/09: Continue tx 11/10/2023 Increase Seroquel to 50 mg at bedtime restart Rexulti 1 mg in the morning 11/11/2023 Continue Rexulti monitor for over-sedation encourage food and fluids encourage out of bed Reason for continued inpatient stay Substantial Risk for: inability to function and rapid decompensation Time Spent With Patient Time: Total time managing care of this patient today ____ minutes.
[2023-11-11 15:26] VITALS: BP 108/59; PULSE 72
[2023-11-11 19:57] VITALS: BP 129/73; PULSE 73; RESP 16; TEMP 36.3; O2SAT 97
[2023-11-11] MEDS: Donepezil HCl 10 MG TABLET PO (20:48)
[2023-11-11] MEDS: QUEtiapine Fumarate 50 MG TABLET PO (20:48)
[2023-11-11] MEDS: Melatonin 3 MG TABLET 6 MG PO (20:48)
[2023-11-11] MEDS: Mirtazapine 15 MG TABLET PO (20:48)
[2023-11-11] MEDS: traZODone HCL 50 MG TABLET PO (20:53)
--- NOTE | 2023-11-11 23:24 | HO.PSYCHPN ---
Subjective Subjective Date of Service: 11/12/23 Reason For Visit: Depression, Dementia Subjective Notes: Conditional Voluntary Interim History: The patient continues to be withdrawn some brightening when engaged with. thinning of emotions needsherself to get out of her room to eat drink remains significantly depressed but no psychotic symptoms Mental Status Exam Mental Status Exam Patient Appearance: Appropriate Patient Orientation: Person, Place and Situation Level of Consciousness: Awake Patient Behavior: Talkative, Passive and Good Eye Contact Mood Description: Depressed and Apprehensive Affect Description: Flat Patient Cognition Impaired: Yes Ability to Follow Directions: Good Speech Pattern: Clear Memory Description: Episodic Impaired Hallucinations: None Delusions: Not Present Thought Process: Distracted and Slowed Thinking Thought Content: positive for [place] and positive for Circumstantial Depressive Symptoms: Increased Anxiety, Hopelessness, Increased Fatigue and Low Self Esteem Judgement: Fair Diagnostics Vital Signs (24Hr): Vital Signs - 24 hr 11/11/23 09:00 11/11/23 15:26 11/11/23 19:57 Temperature 97.3 F 97.4 F Pulse Rate 78 72 73 Respiratory Rate 18 16 Blood Pressure 128/75 108/59 L 129/73 Pulse Oximetry 94 97 Oxygen Delivery Method Room Air Room Air BMI result Body Mass Index 20.1 Labs 11/04/23 13:12 11/04/23 13:12 Imaging Radiology Impressions: ITS Impressions Lumbar Spine X-Ray 11/07/23 14:05 IMPRESSION: 1. Compression deformity of the L2 vertebral body with loss of 40-50% vertebral body height is increased from previous height loss of 20-30% on 07/09/2023. 2. Chronic compression deformities of L1 and T12 vertebral bodies, similar to prior. 3. Transitional anatomy with lumbarization of the S1 vertebral body. Medications Medications Current Medications Acetaminophen (Acetaminophen 325 Mg Tablet) 650 mg PO Q6H PRN PRN Reason: Headache/Pain Mild Scale (1-3) Last Admin: 11/05/23 16:59 Dose: 650 mg Al Hydroxide/Mg Hydroxide (Magnesium Hydrox/Alum Hydrox 30 Ml Oral.Susp) 30 ml PO Q6H PRN PRN Reason: Heartburn/Nausea Brexpiprazole (Brexpiprazole 1 Mg Tablet) 1 mg PO DAILY [facility] Last Admin: 11/11/23 09:50 Dose: 1 mg Donepezil HCl (Donepezil Hcl 10 Mg Tablet) 10 mg PO BEDTIME [facility] Last Admin: 11/11/23 20:48 Dose: 10 mg Folic Acid (Folic Acid 1 Mg Tablet) 1 mg PO DAILY [facility] Last Admin: 11/11/23 09:00 Dose: 1 mg Hydroxyzine HCl (Hydroxyzine Hcl 25 Mg Tablet) 25 mg PO Q6H PRN PRN Reason: Anxiety Ibuprofen (Ibuprofen 200 Mg Tablet) 200 mg PO Q6H PRN PRN Reason: Pain, Moderate(Pain Scale 4-6) Last Admin: 11/07/23 13:49 Dose: 200 mg Lorazepam (Lorazepam 0.5 Mg Tablet) 0.5 mg PO BID [facility] Last Admin: 11/11/23 20:48 Dose: 0.5 mg Magnesium Hydroxide (Milk Of Magnesia 30 Ml Oral.Susp) 30 ml PO DAILY PRN PRN Reason: Constipation Melatonin (Melatonin 3 Mg Tablet) 6 mg PO BEDTIME [facility] Last Admin: 11/11/23 20:48 Dose: 6 mg Memantine (Memantine Hcl 10 Mg Tablet) 10 mg PO BID [facility] Last Admin: 11/11/23 20:48 Dose: 10 mg Mirtazapine (Mirtazapine 15 Mg Tablet) 15 mg PO BEDTIME [facility] Last Admin: 11/11/23 20:48 Dose: 15 mg Propranolol HCl (Propranolol Hcl 10 Mg Tablet) 10 mg PO TID [facility]; Protocol Last Admin: 11/11/23 20:48 Dose: 10 mg Quetiapine Fumarate (Quetiapine Fumarate 25 Mg Tablet) 25 mg PO DAILY PRN PRN Reason: Anxiety Last Admin: 11/05/23 09:16 Dose: 25 mg Quetiapine Fumarate (Quetiapine Fumarate 50 Mg Tablet) 50 mg PO BEDTIME [facility] Last Admin: 11/11/23 20:48 Dose: 50 mg Thiamine HCl (Thiamine Hcl 100 Mg Tablet) 100 mg PO BID [facility] Last Admin: 11/11/23 20:48 Dose: 100 mg Trazodone HCl (Trazodone Hcl 50 Mg Tablet) 50 mg PO BEDTIME PRN PRN Reason: Insomnia Last Admin: 11/11/23 20:53 Dose: 50 mg Vortioxetine (Vortioxetine Hydrobromide 20 Mg Tablet) 20 mg PO DAILY [facility] Last Admin: 11/11/23 09:00 Dose: 20 mg Allergies Allergies Allergy/AdvReac Type Severity Reaction Status Date / Time risperidone [From Risperdal] Allergy Intermediate UNKNOWN Verified 11/04/23 12:53 Sulfa (Sulfonamide Allergy Intermediate rash Verified 11/04/23 12:53 Antibiotics) From BENADRYL Allergy Intermediate DIZZY Uncoded 11/04/23 12:53 Assessment & Plan Assessment & Plan (1) Depression: Status: Acute Code(s): F32.A - Depression, unspecified (2) Dementia: Qualifiers: Dementia behavioral or psychological symptom: unspecified whether behavioral, psychotic, or mood disturbance or anxiety Dementia severity: mild Dementia type: unspecified type Qualified Code(s): F03.A0 - Unspecified dementia, mild, without behavioral disturbance, psychotic disturbance, mood disturbance, and anxiety Status: Acute Code(s): F03.90 - Unspecified dementia, unspecified severity, without behavioral disturbance, psychotic disturbance, mood disturbance, and anxiety Plan 73 yo female, history of recurrent major depression with psychotic features, dementia, and multiple medical comorbidities. [place] [facility] [place] with increasing symptoms of depression. Pt reports poor sleep, appetite. She reports she has been taking medications is willing to make any changes that are needed and will help. Plan: CV 15 minute checks Collateral contact with family Increase Rexulti to 1 mg daily from 0.5 mg daily Diagnostics as needed 11/07: Continue tx. 11/09: Continue tx 11/10/2023 Increase Seroquel to 50 mg at bedtime restart Rexulti 1 mg in the morning Inc rexulti as tolerated encourage oob Reason for continued inpatient stay Substantial Risk for: inability to function, rapid decompensation and med/psych decompensation Time Spent With Patient Time: Total time managing care of this patient today ____ minutes.
[2023-11-12 08:00] VITALS: BP 138/72; PULSE 68; RESP 16; TEMP 36.1; O2SAT 93
[2023-11-12] MEDS: Propranolol HCL 10 MG TABLET PO ×3 (09:00→21:01)
[2023-11-12] MEDS: Memantine HCl 10 MG TABLET PO ×2 (09:01→21:01)
[2023-11-12] MEDS: Brexpiprazole 1 MG TABLET PO (09:01)
[2023-11-12] MEDS: Vortioxetine Hydrobromide 20 MG TABLET PO (09:01)
[2023-11-12] MEDS: Thiamine HCL 100 MG TABLET PO ×2 (09:01→21:01)
[2023-11-12] MEDS: LORazepam 0.5 MG TABLET PO ×2 (09:01→21:01)
[2023-11-12] MEDS: Folic Acid 1 MG TABLET PO (09:01)
[2023-11-12 17:16] VITALS: BP 113/69; PULSE 85
[2023-11-12 19:56] VITALS: BP 115/56; PULSE 69; RESP 18; TEMP 36.4; O2SAT 95
[2023-11-12 21:01] VITALS: BP 115/56; PULSE 69
[2023-11-12] MEDS: Melatonin 3 MG TABLET 6 MG PO (21:01)
[2023-11-12] MEDS: Mirtazapine 15 MG TABLET PO (21:01)
[2023-11-12] MEDS: traZODone HCL 50 MG TABLET PO (21:01)
[2023-11-12] MEDS: QUEtiapine Fumarate 50 MG TABLET PO (21:01)
[2023-11-12] MEDS: Donepezil HCl 10 MG TABLET PO (21:02)
[2023-11-13 08:00] VITALS: BP 117/56; PULSE 69; RESP 16; TEMP 36.4
[2023-11-13] MEDS: Propranolol HCL 10 MG TABLET PO ×3 (09:01→20:54)
[2023-11-13] MEDS: Brexpiprazole 1 MG TABLET PO (09:01)
[2023-11-13] MEDS: Memantine HCl 10 MG TABLET PO ×2 (09:01→20:54)
[2023-11-13] MEDS: LORazepam 0.5 MG TABLET PO ×2 (09:01→20:55)
[2023-11-13] MEDS: Folic Acid 1 MG TABLET PO (09:01)
[2023-11-13] MEDS: Thiamine HCL 100 MG TABLET PO ×2 (09:01→20:54)
[2023-11-13] MEDS: Vortioxetine Hydrobromide 20 MG TABLET PO (09:01)
[2023-11-13 14:13] VITALS: BP 119/65; PULSE 75
[2023-11-13 19:25] VITALS: BP 131/70; PULSE 66; TEMP 36.3; O2SAT 96
[2023-11-13] MEDS: Donepezil HCl 5 MG TABLET PO (20:53)
[2023-11-13] MEDS: Mirtazapine 7.5 MG TABLET 22.5 MG PO (20:53)
[2023-11-13 20:54] VITALS: BP 131/70; PULSE 66
[2023-11-13] MEDS: Melatonin 3 MG TABLET 6 MG PO (20:55)
[2023-11-13] MEDS: QUEtiapine Fumarate 50 MG TABLET PO (20:55)
[2023-11-13] MEDS: Brexpiprazole 1 MG TABLET 0.5 MG PO (21:01)
[2023-11-14 08:22] VITALS: BP 102/60; PULSE 68; RESP 17; TEMP 36.4; O2SAT 97
--- NOTE | 2023-11-14 09:07 | P.PNPSI_ITS ---
Subjective Subjective Date of Service: 11/14/23 Reason For Visit: Depression, Dementia Subjective Notes: Conditional Voluntary Interim History: Pt slept most of the night. She reports feeling very depressed, no SI/HI. She has been visible on the unit, social and pleasant on approach. Review of Systems Review of Systems Back pain Yes all other systems are reviewed and are negative Constitutional: Reports no additional constitutional complaints, Denies chills, Denies fever(s) and Denies night sweats Eyes: Reports no additional eye complaints, Denies blurry vision, Denies change in vision, Denies diplopia, Denies eye discharge, Denies loss of vision and Denies eye pain Denies dizziness Cardiovascular: Reports no additional cardiovascular complaints, Denies chest pain, Denies lightheadedness, Denies Loss of Consciousness and Denies dyspnea Respiratory: Reports no additional respiratory complaints and Denies dyspnea Gastrointestinal: Reports no additional gastrointestinal complaints, Denies abdominal pain, Denies melena, Denies hematochezia, Denies change in bowel habits and Denies change in stool character Musculoskeletal: Reports no additional musculoskeletal complaints, Denies numbness and Denies tingling Denies dizziness, Denies loss of vision, Denies numbness and Denies tingling Psychiatric: Reports anxiety, Reports depression, Denies homicidal ideation and Denies suicidal ideation Endocrine: Reports no additional endocrine complaints Hematologic/Lymphatic: Reports no additional hematologic/lymphatic complaints Allergic/Immunologic: Reports no additional allergic/immunologic complaints Mental Status Exam Mental Status Exam Patient Appearance: Appropriate Patient Orientation: Person, Place and Situation Level of Consciousness: Awake Patient Behavior: Talkative, Passive and Good Eye Contact Mood Description: Depressed and Apprehensive Affect Description: Flat Patient Cognition Impaired: Yes Ability to Follow Directions: Good Speech Pattern: Clear Memory Description: Episodic Impaired Diagnostics Vital Signs (24Hr): Vital Signs - 24 hr 11/13/23 14:13 11/13/23 19:25 11/13/23 20:54 Temperature 97.4 F Pulse Rate 75 66 66 Respiratory Rate Blood Pressure 119/65 131/70 131/70 Pulse Oximetry 96 Oxygen Delivery Method Room Air 11/14/23 08:22 Temperature 97.6 F Pulse Rate 68 Respiratory Rate 17 Blood Pressure 102/60 Pulse Oximetry 97 Oxygen Delivery Method Room Air BMI result Body Mass Index 20.1 Labs 11/04/23 13:12 11/04/23 13:12 Imaging Radiology Impressions: ITS Impressions Lumbar Spine X-Ray 11/07/23 14:05 IMPRESSION: 1. Compression deformity of the L2 vertebral body with loss of 40-50% vertebral body height is increased from previous height loss of 20-30% on 07/09/2023. 2. Chronic compression deformities of L1 and T12 vertebral bodies, similar to prior. 3. Transitional anatomy with lumbarization of the S1 vertebral body. Medications Medications Current Medications Acetaminophen (Acetaminophen 325 Mg Tablet) 650 mg PO Q6H PRN PRN Reason: Headache/Pain Mild Scale (1-3) Last Admin: 11/05/23 16:59 Dose: 650 mg Al Hydroxide/Mg Hydroxide (Magnesium Hydrox/Alum Hydrox 30 Ml Oral.Susp) 30 ml PO Q6H PRN PRN Reason: Heartburn/Nausea Brexpiprazole (Brexpiprazole 1 Mg Tablet) 0.5 mg PO BID [facility] Last Admin: 11/13/23 21:01 Dose: 0.5 mg Donepezil HCl (Donepezil Hcl 5 Mg Tablet) 5 mg PO BEDTIME [facility] Last Admin: 11/13/23 20:53 Dose: 5 mg Folic Acid (Folic Acid 1 Mg Tablet) 1 mg PO DAILY [facility] Last Admin: 11/13/23 09:01 Dose: 1 mg Hydroxyzine HCl (Hydroxyzine Hcl 25 Mg Tablet) 25 mg PO Q6H PRN PRN Reason: Anxiety Ibuprofen (Ibuprofen 200 Mg Tablet) 200 mg PO Q6H PRN PRN Reason: Pain, Moderate(Pain Scale 4-6) Last Admin: 11/07/23 13:49 Dose: 200 mg Lorazepam (Lorazepam 0.5 Mg Tablet) 0.5 mg PO BID [facility] Last Admin: 11/13/23 20:55 Dose: 0.5 mg Magnesium Hydroxide (Milk Of Magnesia 30 Ml Oral.Susp) 30 ml PO DAILY PRN PRN Reason: Constipation Melatonin (Melatonin 3 Mg Tablet) 6 mg PO BEDTIME [facility] Last Admin: 11/13/23 20:55 Dose: 6 mg Memantine (Memantine Hcl 10 Mg Tablet) 10 mg PO BID [facility] Last Admin: 11/13/23 20:54 Dose: 10 mg Mirtazapine (Mirtazapine 7.5 Mg Tablet) 22.5 mg PO BEDTIME [facility] Last Admin: 11/13/23 20:53 Dose: 22.5 mg Propranolol HCl (Propranolol Hcl 10 Mg Tablet) 10 mg PO TID [facility]; Protocol Last Admin: 11/13/23 20:54 Dose: 10 mg Quetiapine Fumarate (Quetiapine Fumarate 25 Mg Tablet) 25 mg PO DAILY PRN PRN Reason: Anxiety Last Admin: 11/05/23 09:16 Dose: 25 mg Quetiapine Fumarate (Quetiapine Fumarate 50 Mg Tablet) 50 mg PO BEDTIME [facility] Last Admin: 11/13/23 20:55 Dose: 50 mg Thiamine HCl (Thiamine Hcl 100 Mg Tablet) 100 mg PO BID [facility] Last Admin: 11/13/23 20:54 Dose: 100 mg Trazodone HCl (Trazodone Hcl 50 Mg Tablet) 50 mg PO BEDTIME PRN PRN Reason: Insomnia Last Admin: 11/12/23 21:01 Dose: 50 mg Vortioxetine (Vortioxetine Hydrobromide 20 Mg Tablet) 20 mg PO DAILY [facility] Last Admin: 11/13/23 09:01 Dose: 20 mg Allergies Allergies Allergy/AdvReac Type Severity Reaction Status Date / Time risperidone [From Risperdal] Allergy Intermediate UNKNOWN Verified 11/04/23 12:53 Sulfa (Sulfonamide Allergy Intermediate rash Verified 11/04/23 12:53 Antibiotics) From BENADRYL Allergy Intermediate DIZZY Uncoded 11/04/23 12:53 Assessment & Plan Assessment & Plan (1) Depression: Status: Acute Code(s): F32.A - Depression, unspecified (2) Dementia: Qualifiers: Dementia behavioral or psychological symptom: unspecified whether behavioral, psychotic, or mood disturbance or anxiety Dementia severity: mild Dementia type: unspecified type Qualified Code(s): F03.A0 - Unspecified dementia, mild, without behavioral disturbance, psychotic disturbance, mood disturbance, and anxiety Status: Acute Code(s): F03.90 - Unspecified dementia, unspecified severity, without behavioral disturbance, psychotic disturbance, mood disturbance, and anxiety Plan 73 yo female, history of recurrent major depression with psychotic features, dementia, and multiple medical comorbidities. Recent discharge from [facility] [place] she reports (09/03/23), with increasing symptoms of depression. Pt reports poor sleep, appetite. She reports she has been taking medications is willing to make any changes that are needed and will help. Plan: CV 15 minute checks Collateral contact with family Increase Rexulti to 1 mg daily from 0.5 mg daily Diagnostics as needed 6/2: Continue tx. 11/09: Continue tx 11/10/2023 Increase Seroquel to 50 mg at bedtime restart Rexulti 1 mg in the morning Inc rexulti as tolerated encourage oob 11/13 continue tx. Reason for continued inpatient stay Substantial Risk for: inability to function Time Spent With Patient Time: Total time managing care of this patient today ____ minutes.
[2023-11-14] MEDS: Thiamine HCL 100 MG TABLET PO ×2 (09:23→21:01)
[2023-11-14] MEDS: Brexpiprazole 1 MG TABLET 0.5 MG PO ×2 (09:23→21:01)
[2023-11-14] MEDS: Folic Acid 1 MG TABLET PO (09:23)
[2023-11-14 09:24] VITALS: BP 102/60; PULSE 68
[2023-11-14] MEDS: Propranolol HCL 10 MG TABLET PO ×3 (09:24→21:01)
[2023-11-14] MEDS: Vortioxetine Hydrobromide 20 MG TABLET PO (09:24)
[2023-11-14] MEDS: LORazepam 0.5 MG TABLET PO ×2 (09:25→21:01)
[2023-11-14] MEDS: Memantine HCl 10 MG TABLET PO ×2 (09:26→21:01)
[2023-11-14 16:23] VITALS: BP 105/66; PULSE 88
[2023-11-14 20:00] VITALS: BP 107/60; PULSE 70; RESP 16; TEMP 36.3; O2SAT 97
[2023-11-14] MEDS: Mirtazapine 7.5 MG TABLET 22.5 MG PO (21:00)
[2023-11-14 21:01] VITALS: BP 107/60; PULSE 70
[2023-11-14] MEDS: QUEtiapine Fumarate 50 MG TABLET PO (21:01)
[2023-11-14] MEDS: Donepezil HCl 5 MG TABLET PO (21:01)
[2023-11-14] MEDS: Melatonin 3 MG TABLET 6 MG PO (21:01)
[2023-11-15 09:00] VITALS: BP 137/79; PULSE 78; RESP 20; TEMP 36.7; O2SAT 95
[2023-11-15] MEDS: Memantine HCl 10 MG TABLET PO ×2 (09:26→20:55)
[2023-11-15] MEDS: LORazepam 0.5 MG TABLET PO ×2 (09:26→20:55)
[2023-11-15] MEDS: Brexpiprazole 1 MG TABLET 0.5 MG PO ×2 (09:27→20:55)
[2023-11-15] MEDS: Vortioxetine Hydrobromide 20 MG TABLET PO (09:27)
[2023-11-15] MEDS: Folic Acid 1 MG TABLET PO (09:27)
[2023-11-15] MEDS: Thiamine HCL 100 MG TABLET PO ×2 (09:27→20:54)
[2023-11-15] MEDS: Propranolol HCL 10 MG TABLET PO ×3 (09:27→20:54)
[2023-11-15 16:28] VITALS: BP 119/65; PULSE 97
--- NOTE | 2023-11-15 19:26 | P.PNPSI_ITS ---
Subjective Subjective Date of Service: 11/15/23 Reason For Visit: Depression, Dementia Interim History: Pt slept most of the night. She reports feeling very depressed, no SI/HI. She has been visible on the unit, social and pleasant on approach. Review of Systems Review of Systems Back pain Yes all other systems are reviewed and are negative Constitutional: Reports no additional constitutional complaints, Denies chills, Denies fever(s) and Denies night sweats Eyes: Reports no additional eye complaints, Denies blurry vision, Denies change in vision, Denies diplopia, Denies eye discharge, Denies loss of vision and Denies eye pain Denies dizziness Cardiovascular: Reports no additional cardiovascular complaints, Denies chest pain, Denies lightheadedness, Denies Loss of Consciousness and Denies dyspnea Respiratory: Reports no additional respiratory complaints and Denies dyspnea Gastrointestinal: Reports no additional gastrointestinal complaints, Denies abdominal pain, Denies melena, Denies hematochezia, Denies change in bowel habits and Denies change in stool character Musculoskeletal: Reports no additional musculoskeletal complaints, Denies numbness and Denies tingling Denies dizziness, Denies loss of vision, Denies numbness and Denies tingling Psychiatric: Reports anxiety, Reports depression, Denies homicidal ideation and Denies suicidal ideation Endocrine: Reports no additional endocrine complaints Hematologic/Lymphatic: Reports no additional hematologic/lymphatic complaints Allergic/Immunologic: Reports no additional allergic/immunologic complaints Mental Status Exam Mental Status Exam Patient Appearance: Appropriate Patient Orientation: Person, Place and Situation Level of Consciousness: Awake Patient Behavior: Talkative, Passive and Good Eye Contact Mood Description: Depressed and Apprehensive Affect Description: Flat Patient Cognition Impaired: Yes Ability to Follow Directions: Good Speech Pattern: Clear Memory Description: Episodic Impaired Diagnostics Vital Signs (24Hr): Vital Signs - 24 hr 11/14/23 20:00 11/14/23 21:01 11/15/23 09:00 Temperature 97.4 F 98.0 F Pulse Rate 70 70 78 Respiratory Rate 16 20 Blood Pressure 107/60 107/60 137/79 Pulse Oximetry 97 95 Oxygen Delivery Method Room Air Room Air 11/15/23 16:28 Temperature Pulse Rate 97 Respiratory Rate Blood Pressure 119/65 Pulse Oximetry Oxygen Delivery Method BMI result Body Mass Index 20.1 Labs 11/04/23 13:12 11/04/23 13:12 Imaging Radiology Impressions: ITS Impressions Lumbar Spine X-Ray 11/07/23 14:05 IMPRESSION: 1. Compression deformity of the L2 vertebral body with loss of 40-50% vertebral body height is increased from previous height loss of 20-30% on 07/09/2023. 2. Chronic compression deformities of L1 and T12 vertebral bodies, similar to prior. 3. Transitional anatomy with lumbarization of the S1 vertebral body. Medications Medications Current Medications Acetaminophen (Acetaminophen 325 Mg Tablet) 650 mg PO Q6H PRN PRN Reason: Headache/Pain Mild Scale (1-3) Last Admin: 11/05/23 16:59 Dose: 650 mg Al Hydroxide/Mg Hydroxide (Magnesium Hydrox/Alum Hydrox 30 Ml Oral.Susp) 30 ml PO Q6H PRN PRN Reason: Heartburn/Nausea Brexpiprazole (Brexpiprazole 1 Mg Tablet) 0.5 mg PO BID [facility] Last Admin: 11/15/23 09:27 Dose: 0.5 mg Donepezil HCl (Donepezil Hcl 5 Mg Tablet) 5 mg PO BEDTIME [facility] Last Admin: 11/14/23 21:01 Dose: 5 mg Folic Acid (Folic Acid 1 Mg Tablet) 1 mg PO DAILY [facility] Last Admin: 11/15/23 09:27 Dose: 1 mg Hydroxyzine HCl (Hydroxyzine Hcl 25 Mg Tablet) 25 mg PO Q6H PRN PRN Reason: Anxiety Ibuprofen (Ibuprofen 200 Mg Tablet) 200 mg PO Q6H PRN PRN Reason: Pain, Moderate(Pain Scale 4-6) Last Admin: 11/07/23 13:49 Dose: 200 mg Lorazepam (Lorazepam 0.5 Mg Tablet) 0.5 mg PO BID [facility] Last Admin: 11/15/23 09:26 Dose: 0.5 mg Magnesium Hydroxide (Milk Of Magnesia 30 Ml Oral.Susp) 30 ml PO DAILY PRN PRN Reason: Constipation Melatonin (Melatonin 3 Mg Tablet) 6 mg PO BEDTIME [facility] Last Admin: 11/14/23 21:01 Dose: 6 mg Memantine (Memantine Hcl 10 Mg Tablet) 10 mg PO BID [facility] Last Admin: 11/15/23 09:26 Dose: 10 mg Mirtazapine (Mirtazapine 7.5 Mg Tablet) 22.5 mg PO BEDTIME [facility] Last Admin: 11/14/23 21:00 Dose: 22.5 mg Propranolol HCl (Propranolol Hcl 10 Mg Tablet) 10 mg PO TID [facility]; Protocol Last Admin: 11/15/23 16:28 Dose: 10 mg Quetiapine Fumarate (Quetiapine Fumarate 25 Mg Tablet) 25 mg PO DAILY PRN PRN Reason: Anxiety Last Admin: 11/05/23 09:16 Dose: 25 mg Quetiapine Fumarate (Quetiapine Fumarate 50 Mg Tablet) 50 mg PO BEDTIME [facility] Last Admin: 11/14/23 21:01 Dose: 50 mg Thiamine HCl (Thiamine Hcl 100 Mg Tablet) 100 mg PO BID [facility] Last Admin: 11/15/23 09:27 Dose: 100 mg Trazodone HCl (Trazodone Hcl 50 Mg Tablet) 50 mg PO BEDTIME PRN PRN Reason: Insomnia Last Admin: 11/12/23 21:01 Dose: 50 mg Vortioxetine (Vortioxetine Hydrobromide 20 Mg Tablet) 20 mg PO DAILY [facility] Last Admin: 11/15/23 09:27 Dose: 20 mg Allergies Allergies Allergy/AdvReac Type Severity Reaction Status Date / Time risperidone [From Risperdal] Allergy Intermediate UNKNOWN Verified 11/04/23 12:53 Sulfa (Sulfonamide Allergy Intermediate rash Verified 11/04/23 12:53 Antibiotics) From BENADRYL Allergy Intermediate DIZZY Uncoded 11/04/23 12:53 Assessment & Plan Assessment & Plan (1) Depression: Status: Acute Code(s): F32.A - Depression, unspecified (2) Dementia: Qualifiers: Dementia behavioral or psychological symptom: unspecified whether behavioral, psychotic, or mood disturbance or anxiety Dementia severity: mild Dementia type: unspecified type Qualified Code(s): F03.A0 - Unspecified dementia, mild, without behavioral disturbance, psychotic disturbance, mood disturbance, and anxiety Status: Acute Code(s): F03.90 - Unspecified dementia, unspecified severity, without behavioral disturbance, psychotic disturbance, mood disturbance, and anxiety Plan 73 yo female, history of recurrent major depression with psychotic features, dementia, and multiple medical comorbidities. Recent discharge from [facility] [place] [place] she reports (09/03/23), with increasing symptoms of depression. Pt reports poor sleep, appetite. She reports she has been taking medications is willing to make any changes that are needed and will help. Plan: CV 15 minute checks Collateral contact with family Increase Rexulti to 1 mg daily from 0.5 mg daily Diagnostics as needed 11/07: Continue tx. 11/09: Continue tx 11/10/2023 Increase Seroquel to 50 mg at bedtime restart Rexulti 1 mg in the morning 11/11 Inc rexulti as tolerated encourage oob 11/14 continue tx. Reason for continued inpatient stay Substantial Risk for: inability to function Time Spent With Patient Time: Total time managing care of this patient today ____ minutes.
[2023-11-15 20:00] VITALS: BP 111/58; PULSE 70; RESP 18; TEMP 36.4; O2SAT 96
[2023-11-15] MEDS: Mirtazapine 7.5 MG TABLET 22.5 MG PO (20:53)
[2023-11-15] MEDS: QUEtiapine Fumarate 50 MG TABLET PO (20:54)
[2023-11-15] MEDS: Melatonin 3 MG TABLET 6 MG PO (20:54)
[2023-11-15] MEDS: Donepezil HCl 5 MG TABLET PO (20:55)
[2023-11-16 08:56] VITALS: BP 123/54; PULSE 73
[2023-11-16] MEDS: Memantine HCl 10 MG TABLET PO ×2 (08:56→20:37)
[2023-11-16] MEDS: Vortioxetine Hydrobromide 20 MG TABLET PO (08:56)
[2023-11-16] MEDS: LORazepam 0.5 MG TABLET PO ×2 (08:56→20:37)
[2023-11-16] MEDS: Propranolol HCL 10 MG TABLET PO ×3 (08:56→20:35)
[2023-11-16] MEDS: Folic Acid 1 MG TABLET PO (08:56)
[2023-11-16] MEDS: Thiamine HCL 100 MG TABLET PO ×2 (08:57→20:37)
[2023-11-16] MEDS: Brexpiprazole 1 MG TABLET 0.5 MG PO ×2 (08:57→20:36)
[2023-11-16 09:15] VITALS: BP 123/54; PULSE 77; RESP 20; TEMP 36.4; O2SAT 97
[2023-11-16 16:00] VITALS: BP 115/58; PULSE 78
[2023-11-16 20:00] VITALS: BP 119/70; PULSE 77; RESP 18; TEMP 36.7; O2SAT 94
[2023-11-16 20:35] VITALS: BP 119/70; PULSE 77
[2023-11-16] MEDS: QUEtiapine Fumarate 50 MG TABLET PO (20:35)
[2023-11-16] MEDS: Mirtazapine 7.5 MG TABLET 22.5 MG PO (20:36)
[2023-11-16] MEDS: Melatonin 3 MG TABLET 6 MG PO (20:36)
[2023-11-16] MEDS: Donepezil HCl 5 MG TABLET PO (20:37)
--- NOTE | 2023-11-16 22:12 | HO.PSYCHPN ---
Subjective Subjective Date of Service: 11/16/23 Reason For Visit: Depression, Dementia Diagnostics Vital Signs (24Hr): Vital Signs - 24 hr 11/16/23 08:56 11/16/23 09:15 11/16/23 16:00 Temperature 97.6 F Pulse Rate 73 77 78 Respiratory Rate 20 Blood Pressure 123/54 L 123/54 L 115/58 L Pulse Oximetry 97 Oxygen Delivery Method Room Air 11/16/23 20:00 11/16/23 20:35 Temperature 98.0 F Pulse Rate 77 77 Respiratory Rate 18 Blood Pressure 119/70 119/70 Pulse Oximetry 94 Oxygen Delivery Method Room Air BMI result Body Mass Index 20.1 Labs 11/04/23 13:12 11/04/23 13:12 Imaging Radiology Impressions: ITS Impressions Lumbar Spine X-Ray 11/07/23 14:05 IMPRESSION: 1. Compression deformity of the L2 vertebral body with loss of 40-50% vertebral body height is increased from previous height loss of 20-30% on 07/09/2023. 2. Chronic compression deformities of L1 and T12 vertebral bodies, similar to prior. 3. Transitional anatomy with lumbarization of the S1 vertebral body. Medications Medications Current Medications Acetaminophen (Acetaminophen 325 Mg Tablet) 650 mg PO Q6H PRN PRN Reason: Headache/Pain Mild Scale (1-3) Last Admin: 11/05/23 16:59 Dose: 650 mg Al Hydroxide/Mg Hydroxide (Magnesium Hydrox/Alum Hydrox 30 Ml Oral.Susp) 30 ml PO Q6H PRN PRN Reason: Heartburn/Nausea Brexpiprazole (Brexpiprazole 1 Mg Tablet) 0.5 mg PO BID [facility] Last Admin: 11/16/23 20:36 Dose: 0.5 mg Donepezil HCl (Donepezil Hcl 5 Mg Tablet) 5 mg PO BEDTIME [facility] Last Admin: 11/16/23 20:37 Dose: 5 mg Folic Acid (Folic Acid 1 Mg Tablet) 1 mg PO DAILY [facility] Last Admin: 11/16/23 08:56 Dose: 1 mg Hydroxyzine HCl (Hydroxyzine Hcl 25 Mg Tablet) 25 mg PO Q6H PRN PRN Reason: Anxiety Ibuprofen (Ibuprofen 200 Mg Tablet) 200 mg PO Q6H PRN PRN Reason: Pain, Moderate(Pain Scale 4-6) Last Admin: 11/07/23 13:49 Dose: 200 mg Lorazepam (Lorazepam 0.5 Mg Tablet) 0.5 mg PO BID [facility] Last Admin: 11/16/23 20:37 Dose: 0.5 mg Magnesium Hydroxide (Milk Of Magnesia 30 Ml Oral.Susp) 30 ml PO DAILY PRN PRN Reason: Constipation Melatonin (Melatonin 3 Mg Tablet) 6 mg PO BEDTIME [facility] Last Admin: 11/16/23 20:36 Dose: 6 mg Memantine (Memantine Hcl 10 Mg Tablet) 10 mg PO BID [facility] Last Admin: 11/16/23 20:37 Dose: 10 mg Mirtazapine (Mirtazapine 7.5 Mg Tablet) 22.5 mg PO BEDTIME [facility] Last Admin: 11/16/23 20:36 Dose: 22.5 mg Propranolol HCl (Propranolol Hcl 10 Mg Tablet) 10 mg PO TID [facility]; Protocol Last Admin: 11/16/23 20:35 Dose: 10 mg Quetiapine Fumarate (Quetiapine Fumarate 25 Mg Tablet) 25 mg PO DAILY PRN PRN Reason: Anxiety Last Admin: 11/05/23 09:16 Dose: 25 mg Quetiapine Fumarate (Quetiapine Fumarate 50 Mg Tablet) 50 mg PO BEDTIME [facility] Last Admin: 11/16/23 20:35 Dose: 50 mg Thiamine HCl (Thiamine Hcl 100 Mg Tablet) 100 mg PO BID [facility] Last Admin: 11/16/23 20:37 Dose: 100 mg Trazodone HCl (Trazodone Hcl 50 Mg Tablet) 50 mg PO BEDTIME PRN PRN Reason: Insomnia Last Admin: 11/12/23 21:01 Dose: 50 mg Vortioxetine (Vortioxetine Hydrobromide 20 Mg Tablet) 20 mg PO DAILY [facility] Last Admin: 11/16/23 08:56 Dose: 20 mg Allergies Allergies Allergy/AdvReac Type Severity Reaction Status Date / Time risperidone [From Risperdal] Allergy Intermediate UNKNOWN Verified 11/04/23 12:53 Sulfa (Sulfonamide Allergy Intermediate rash Verified 11/04/23 12:53 Antibiotics) From BENADRYL Allergy Intermediate DIZZY Uncoded 11/04/23 12:53 Assessment & Plan Assessment & Plan (1) Depression: Qualifiers: Depression Type: major depressive disorder Major depression recurrence: recurrent Active/Remission status: currently active Major depression episode severity: severe Psychotic features: without psychotic features Qualified Code(s): F33.2 - Major depressive disorder, recurrent severe without psychotic features Status: Acute Code(s): F32.A - Depression, unspecified (2) Dementia: Qualifiers: Dementia behavioral or psychological symptom: unspecified whether behavioral, psychotic, or mood disturbance or anxiety Dementia severity: mild Dementia type: unspecified type Qualified Code(s): F03.A0 - Unspecified dementia, mild, without behavioral disturbance, psychotic disturbance, mood disturbance, and anxiety Status: Acute Code(s): F03.90 - Unspecified dementia, unspecified severity, without behavioral disturbance, psychotic disturbance, mood disturbance, and anxiety Plan 73 yo female, history of recurrent major depression with psychotic features, dementia, and multiple medical comorbidities. Recent discharge from [facility] [place] she reports (09/03/23), with increasing symptoms of depression. Pt reports poor sleep, appetite. She reports she has been taking medications is willing to make any changes that are needed and will help. Plan: CV 15 minute checks Collateral contact with family Increase Rexulti to 1 mg daily from 0.5 mg daily Diagnostics as needed 11/07: Continue tx. 11/09: Continue tx 11/10/2023 Increase Seroquel to 50 mg at bedtime restart Rexulti 1 mg in the morning 11/11 Inc rexulti as tolerated encourage oob 11/14 continue tx. 11/16/23 Continue Rexulti mirtazapine encourage out of bed and food intake. Consider Latuda Reason for continued inpatient stay Substantial Risk for: inability to function, rapid decompensation and med/psych decompensation Time Spent With Patient Time: Total time managing care of this patient today ____ minutes.
[2023-11-17 08:00] VITALS: BP 136/92; PULSE 75; RESP 18; TEMP 36.3; O2SAT 96
[2023-11-17 08:36] VITALS: BP 136/92; PULSE 75
[2023-11-17] MEDS: Propranolol HCL 10 MG TABLET PO ×3 (08:36→20:31)
[2023-11-17] MEDS: Folic Acid 1 MG TABLET PO (08:37)
[2023-11-17] MEDS: LORazepam 0.5 MG TABLET PO ×2 (08:37→20:31)
[2023-11-17] MEDS: Brexpiprazole 1 MG TABLET 0.5 MG PO ×2 (08:37→20:29)
[2023-11-17] MEDS: Memantine HCl 10 MG TABLET PO ×2 (08:37→20:32)
[2023-11-17] MEDS: Thiamine HCL 100 MG TABLET PO ×2 (08:37→20:30)
[2023-11-17] MEDS: Vortioxetine Hydrobromide 20 MG TABLET PO (08:37)
[2023-11-17 14:39] VITALS: BP 125/65; PULSE 85
[2023-11-17 20:00] VITALS: BP 118/63; PULSE 79; RESP 16; TEMP 36.4; O2SAT 99
[2023-11-17] MEDS: Donepezil HCl 5 MG TABLET PO (20:30)
[2023-11-17] MEDS: QUEtiapine Fumarate 50 MG TABLET PO (20:30)
[2023-11-17] MEDS: Melatonin 3 MG TABLET 6 MG PO (20:30)
[2023-11-17 20:31] VITALS: BP 118/63; PULSE 79
[2023-11-17] MEDS: Mirtazapine 7.5 MG TABLET 22.5 MG PO (20:31)
--- NOTE | 2023-11-17 22:08 | P.PNPSI_ITS ---
Subjective Subjective Date of Service: 11/17/23 Reason For Visit: Depression, Dementia Subjective Notes: Conditional Voluntary Interim History: pt depressed ruminating c/o dec appetite can brighten Mental Status Exam Mental Status Exam Patient Appearance: Appropriate Patient Orientation: Person, Place and Situation Level of Consciousness: Awake Patient Behavior: Talkative, Passive and Good Eye Contact Mood Description: Depressed, Anxious and Apprehensive Affect Description: Withdrawn and Flat Patient Cognition Impaired: Yes Ability to Follow Directions: Good Speech Pattern: Clear Memory Description: Episodic Impaired Diagnostics Vital Signs (24Hr): Vital Signs - 24 hr 11/17/23 08:00 11/17/23 08:36 11/17/23 14:39 Temperature 97.3 F Pulse Rate 75 75 85 Respiratory Rate 18 Blood Pressure 136/92 H 136/92 H 125/65 Pulse Oximetry 96 Oxygen Delivery Method Room Air 11/17/23 20:31 Temperature Pulse Rate 79 Respiratory Rate Blood Pressure 118/63 Pulse Oximetry Oxygen Delivery Method BMI result Body Mass Index 20.1 Labs 11/04/23 13:12 11/04/23 13:12 Imaging Radiology Impressions: ITS Impressions Lumbar Spine X-Ray 11/07/23 14:05 IMPRESSION: 1. Compression deformity of the L2 vertebral body with loss of 40-50% vertebral body height is increased from previous height loss of 20-30% on 07/09/2023. 2. Chronic compression deformities of L1 and T12 vertebral bodies, similar to prior. 3. Transitional anatomy with lumbarization of the S1 vertebral body. Medications Medications Current Medications Acetaminophen (Acetaminophen 325 Mg Tablet) 650 mg PO Q6H PRN PRN Reason: Headache/Pain Mild Scale (1-3) Last Admin: 11/05/23 16:59 Dose: 650 mg Al Hydroxide/Mg Hydroxide (Magnesium Hydrox/Alum Hydrox 30 Ml Oral.Susp) 30 ml PO Q6H PRN PRN Reason: Heartburn/Nausea Brexpiprazole (Brexpiprazole 1 Mg Tablet) 0.5 mg PO BID [facility] Last Admin: 11/17/23 20:29 Dose: 0.5 mg Donepezil HCl (Donepezil Hcl 5 Mg Tablet) 5 mg PO BEDTIME [facility] Last Admin: 11/17/23 20:30 Dose: 5 mg Folic Acid (Folic Acid 1 Mg Tablet) 1 mg PO DAILY [facility] Last Admin: 11/17/23 08:37 Dose: 1 mg Hydroxyzine HCl (Hydroxyzine Hcl 25 Mg Tablet) 25 mg PO Q6H PRN PRN Reason: Anxiety Ibuprofen (Ibuprofen 200 Mg Tablet) 200 mg PO Q6H PRN PRN Reason: Pain, Moderate(Pain Scale 4-6) Last Admin: 11/07/23 13:49 Dose: 200 mg Lorazepam (Lorazepam 0.5 Mg Tablet) 0.5 mg PO BID [facility] Last Admin: 11/17/23 20:31 Dose: 0.5 mg Magnesium Hydroxide (Milk Of Magnesia 30 Ml Oral.Susp) 30 ml PO DAILY PRN PRN Reason: Constipation Melatonin (Melatonin 3 Mg Tablet) 6 mg PO BEDTIME [facility] Last Admin: 11/17/23 20:30 Dose: 6 mg Memantine (Memantine Hcl 10 Mg Tablet) 10 mg PO BID [facility] Last Admin: 11/17/23 20:32 Dose: 10 mg Mirtazapine (Mirtazapine 7.5 Mg Tablet) 22.5 mg PO BEDTIME [facility] Last Admin: 11/17/23 20:31 Dose: 22.5 mg Propranolol HCl (Propranolol Hcl 10 Mg Tablet) 10 mg PO TID [facility]; Protocol Last Admin: 11/17/23 20:31 Dose: 10 mg Quetiapine Fumarate (Quetiapine Fumarate 25 Mg Tablet) 25 mg PO DAILY PRN PRN Reason: Anxiety Last Admin: 11/05/23 09:16 Dose: 25 mg Quetiapine Fumarate (Quetiapine Fumarate 50 Mg Tablet) 50 mg PO BEDTIME [facility] Last Admin: 11/17/23 20:30 Dose: 50 mg Thiamine HCl (Thiamine Hcl 100 Mg Tablet) 100 mg PO BID [facility] Last Admin: 11/17/23 20:30 Dose: 100 mg Trazodone HCl (Trazodone Hcl 50 Mg Tablet) 50 mg PO BEDTIME PRN PRN Reason: Insomnia Last Admin: 11/12/23 21:01 Dose: 50 mg Vortioxetine (Vortioxetine Hydrobromide 20 Mg Tablet) 20 mg PO DAILY [facility] Last Admin: 11/17/23 08:37 Dose: 20 mg Allergies Allergies Allergy/AdvReac Type Severity Reaction Status Date / Time risperidone [From Risperdal] Allergy Intermediate UNKNOWN Verified 11/04/23 12:53 Sulfa (Sulfonamide Allergy Intermediate rash Verified 11/04/23 12:53 Antibiotics) From BENADRYL Allergy Intermediate DIZZY Uncoded 11/04/23 12:53 Assessment & Plan Assessment & Plan (1) Depression: Qualifiers: Active/Remission status: currently active Depression Type: major depressive disorder Major depression episode severity: severe Major depression recurrence: recurrent Psychotic features: without psychotic features Qualified Code(s): F33.2 - Major depressive disorder, recurrent severe without psychotic features Status: Acute Code(s): F32.A - Depression, unspecified (2) Dementia: Qualifiers: Dementia behavioral or psychological symptom: unspecified whether behavioral, psychotic, or mood disturbance or anxiety Dementia severity: mild Dementia type: unspecified type Qualified Code(s): F03.A0 - Unspecified dementia, mild, without behavioral disturbance, psychotic disturbance, mood disturbance, and anxiety Status: Acute Code(s): F03.90 - Unspecified dementia, unspecified severity, without behavioral disturbance, psychotic disturbance, mood disturbance, and anxiety Plan 73 yo female, history of recurrent major depression with psychotic features, dementia, and multiple medical comorbidities. Recent discharge [place] [facility] [place] reports (09/03/23), with increasing symptoms of depression. Pt reports poor sleep, appetite. She reports she has been taking medications is willing to make any changes that are needed and will help. Plan: CV 15 minute checks Collateral contact with family Increase Rexulti to 1 mg daily from 0.5 mg daily Diagnostics as needed 11/07: Continue tx. 11/09: Continue tx 11/10/2023 Increase Seroquel to 50 mg at bedtime restart Rexulti 1 mg in the morning 11/11 Inc rexulti as tolerated encourage oob 11/14 continue tx. 11/16/23 Continue Rexulti mirtazapine encourage out of bed and food intake. Consider Latuda 11/17/23 Pt with depression poor bryn not a candidate for ect may be candidate for tms mirtazapine inc 30 mg bedtime Reason for continued inpatient stay Substantial Risk for: inability to function and rapid decompensation Time Spent With Patient Time: Total time managing care of this patient today ____ minutes.
[2023-11-18 08:00] VITALS: BP 119/57; PULSE 72; RESP 18; TEMP 36.6; O2SAT 95
[2023-11-18] MEDS: Brexpiprazole 1 MG TABLET 0.5 MG PO ×2 (08:42→20:32)
[2023-11-18] MEDS: Folic Acid 1 MG TABLET PO (08:42)
[2023-11-18] MEDS: LORazepam 0.5 MG TABLET PO ×2 (08:43→20:32)
[2023-11-18] MEDS: Vortioxetine Hydrobromide 20 MG TABLET PO (08:43)
[2023-11-18] MEDS: Thiamine HCL 100 MG TABLET PO ×2 (08:43→20:32)
[2023-11-18] MEDS: Memantine HCl 10 MG TABLET PO ×2 (08:43→20:32)
[2023-11-18] MEDS: Propranolol HCL 10 MG TABLET PO ×3 (08:43→20:32)
[2023-11-18 15:48] VITALS: BP 101/60; PULSE 87
[2023-11-18 20:00] VITALS: BP 139/63; PULSE 72; RESP 16; O2SAT 96
[2023-11-18 20:32] VITALS: BP 139/63; PULSE 72
[2023-11-18] MEDS: QUEtiapine Fumarate 50 MG TABLET PO (20:32)
[2023-11-18] MEDS: Melatonin 3 MG TABLET 6 MG PO (20:32)
[2023-11-18] MEDS: Donepezil HCl 5 MG TABLET PO (20:32)
[2023-11-18] MEDS: Mirtazapine 30 MG TABLET PO (20:32)
--- NOTE | 2023-11-18 23:19 | P.PNPSI_ITS ---
Subjective Subjective Date of Service: 11/18/23 Reason For Visit: Depression, Dementia Subjective Notes: Conditional Voluntary Interim History: pt with sig depressive sx focused on poor bryn flat amotivational Mental Status Exam Mental Status Exam Patient Appearance: Appropriate Patient Orientation: Person, Place and Situation Level of Consciousness: Awake Patient Behavior: Talkative, Passive and Good Eye Contact Mood Description: Depressed, Anxious and Apprehensive Affect Description: Withdrawn and Flat Patient Cognition Impaired: Yes Ability to Follow Directions: Good Speech Pattern: Clear Memory Description: Episodic Impaired Diagnostics Vital Signs (24Hr): Vital Signs - 24 hr 11/18/23 08:00 11/18/23 15:48 11/18/23 20:00 Temperature 98 F Pulse Rate 72 87 72 Respiratory Rate 18 16 Blood Pressure 119/57 L 101/60 139/63 Pulse Oximetry 95 96 Oxygen Delivery Method Room Air Room Air 11/18/23 20:32 Temperature Pulse Rate 72 Respiratory Rate Blood Pressure 139/63 Pulse Oximetry Oxygen Delivery Method BMI result Body Mass Index 20.1 Labs 11/04/23 13:12 11/04/23 13:12 Imaging Radiology Impressions: ITS Impressions Lumbar Spine X-Ray 11/07/23 14:05 IMPRESSION: 1. Compression deformity of the L2 vertebral body with loss of 40-50% vertebral body height is increased from previous height loss of 20-30% on 07/09/2023. 2. Chronic compression deformities of L1 and T12 vertebral bodies, similar to prior. 3. Transitional anatomy with lumbarization of the S1 vertebral body. Medications Medications Current Medications Acetaminophen (Acetaminophen 325 Mg Tablet) 650 mg PO Q6H PRN PRN Reason: Headache/Pain Mild Scale (1-3) Last Admin: 11/05/23 16:59 Dose: 650 mg Al Hydroxide/Mg Hydroxide (Magnesium Hydrox/Alum Hydrox 30 Ml Oral.Susp) 30 ml PO Q6H PRN PRN Reason: Heartburn/Nausea Brexpiprazole (Brexpiprazole 1 Mg Tablet) 0.5 mg PO BID [facility] Last Admin: 11/18/23 20:32 Dose: 0.5 mg Donepezil HCl (Donepezil Hcl 5 Mg Tablet) 5 mg PO BEDTIME [facility] Last Admin: 11/18/23 20:32 Dose: 5 mg Folic Acid (Folic Acid 1 Mg Tablet) 1 mg PO DAILY [facility] Last Admin: 06/12/24 08:42 Dose: 1 mg Hydroxyzine HCl (Hydroxyzine Hcl 25 Mg Tablet) 25 mg PO Q6H PRN PRN Reason: Anxiety Ibuprofen (Ibuprofen 200 Mg Tablet) 200 mg PO Q6H PRN PRN Reason: Pain, Moderate(Pain Scale 4-6) Last Admin: 11/07/23 13:49 Dose: 200 mg Lorazepam (Lorazepam 0.5 Mg Tablet) 0.5 mg PO BID [facility] Last Admin: 11/18/23 20:32 Dose: 0.5 mg Magnesium Hydroxide (Milk Of Magnesia 30 Ml Oral.Susp) 30 ml PO DAILY PRN PRN Reason: Constipation Melatonin (Melatonin 3 Mg Tablet) 6 mg PO BEDTIME [facility] Last Admin: 11/18/23 20:32 Dose: 6 mg Memantine (Memantine Hcl 10 Mg Tablet) 10 mg PO BID [facility] Last Admin: 11/18/23 20:32 Dose: 10 mg Mirtazapine (Mirtazapine 30 Mg Tablet) 30 mg PO BEDTIME [facility] Last Admin: 11/18/23 20:32 Dose: 30 mg Propranolol HCl (Propranolol Hcl 10 Mg Tablet) 10 mg PO TID [facility]; Protocol Last Admin: 11/18/23 20:32 Dose: 10 mg Quetiapine Fumarate (Quetiapine Fumarate 25 Mg Tablet) 25 mg PO DAILY PRN PRN Reason: Anxiety Last Admin: 11/05/23 09:16 Dose: 25 mg Quetiapine Fumarate (Quetiapine Fumarate 50 Mg Tablet) 50 mg PO BEDTIME [facility] Last Admin: 11/18/23 20:32 Dose: 50 mg Thiamine HCl (Thiamine Hcl 100 Mg Tablet) 100 mg PO BID [facility] Last Admin: 11/18/23 20:32 Dose: 100 mg Trazodone HCl (Trazodone Hcl 50 Mg Tablet) 50 mg PO BEDTIME PRN PRN Reason: Insomnia Last Admin: 11/12/23 21:01 Dose: 50 mg Vortioxetine (Vortioxetine Hydrobromide 20 Mg Tablet) 20 mg PO DAILY [facility] Last Admin: 11/18/23 08:43 Dose: 20 mg Allergies Allergies Allergy/AdvReac Type Severity Reaction Status Date / Time risperidone [From Risperdal] Allergy Intermediate UNKNOWN Verified 11/04/23 12:53 Sulfa (Sulfonamide Allergy Intermediate rash Verified 11/04/23 12:53 Antibiotics) From BENADRYL Allergy Intermediate DIZZY Uncoded 11/04/23 12:53 Assessment & Plan Assessment & Plan (1) Depression: Qualifiers: Active/Remission status: currently active Depression Type: major depressive disorder Major depression episode severity: severe Major depression recurrence: recurrent Psychotic features: without psychotic features Qualified Code(s): F33.2 - Major depressive disorder, recurrent severe without psychotic features Status: Acute Code(s): F32.A - Depression, unspecified (2) Dementia: Qualifiers: Dementia type: unspecified type Dementia severity: mild Dementia behavioral or psychological symptom: unspecified whether behavioral, psychotic, or mood disturbance or anxiety Qualified Code(s): F03.A0 - Unspecified dementia, mild, without behavioral disturbance, psychotic disturbance, mood disturbance, and anxiety Status: Acute Code(s): F03.90 - Unspecified dementia, unspecified severity, without behavioral disturbance, psychotic disturbance, mood disturbance, and anxiety Plan 73 yo female, history of recurrent major depression with psychotic features, dementia, and multiple medical comorbidities. Recent discharge from [facility] [place] she reports (09/03/23), with increasing symptoms of depression. Pt reports poor sleep, appetite. She reports she has been taking medications is willing to make any changes that are needed and will help. Plan: CV 15 minute checks Collateral contact with family Increase Rexulti to 1 mg daily from 0.5 mg daily Diagnostics as needed 11/07: Continue tx. 11/09: Continue tx 11/10/2023 Increase Seroquel to 50 mg at bedtime restart Rexulti 1 mg in the morning 11/11 Inc rexulti as tolerated encourage oob 11/14 continue tx. 11/16/23 Continue Rexulti mirtazapine encourage out of bed and food intake. Consider Latuda 11/17/23 Pt with depression poor bryn not a candidate for ect may be candidate for tms mirtazapine inc 30 mg bedtime 11/17 Aricept lowwered sec to dec bryn seroquel remeron for dep appetite ? unclear if stable for d/c Reason for continued inpatient stay Substantial Risk for: inability to function, rapid decompensation and med/psych decompensation Time Spent With Patient Time: Total time managing care of this patient today ____ minutes.
[2023-11-19 07:00] VITALS: BMI 29.2
[2023-11-19] MEDS: Memantine HCl 10 MG TABLET PO (08:10)
[2023-11-19] MEDS: LORazepam 0.5 MG TABLET PO (08:10)
[2023-11-19] MEDS: Folic Acid 1 MG TABLET PO (08:10)
[2023-11-19] MEDS: Vortioxetine Hydrobromide 20 MG TABLET PO (08:10)
[2023-11-19] MEDS: Thiamine HCL 100 MG TABLET PO (08:10)
[2023-11-19 09:02] VITALS: BP 105/55; PULSE 72; RESP 20; TEMP 36.7; O2SAT 95
[2023-11-19 09:07] VITALS: BP 105/55; PULSE 72
[2023-11-19] MEDS: Propranolol HCL 10 MG TABLET PO (09:07)
[2023-11-19] MEDS: Brexpiprazole 1 MG TABLET 0.5 MG PO (09:07)
--- NOTE | 2023-11-19 10:43 | P.DS_ITS ---
DS: Providers Provider Date of Service: 11/19/23 Date of admission: 11/05/23 16:02 Date of discharge: 11/19/23 Primary care physician: Brittany Medina MD Admitting clinician: Unique Ramey Attending physician on discharge: Broderick Willett Discharging clinician: Broderick Willett DS: Diagnosis Discharge Diagnosis (1) Major depressive disorder, recurrent severe without psychotic features: Status: Acute (2) Dementia: Status: Acute DS: Medications Discharge Medications Home Medications: Previous Rx's ?Medication ?Instructions ?Recorded donepezil 10 mg tablet 10 mg PO BEDTIME 30 days #30 tabs 09/01/23 folic acid 1 mg tablet 1 mg PO DAILY #90 tabs 09/01/23 ibuprofen 200 mg tablet 200 mg PO Q6H PRN Pain, 09/01/23 Moderate(Pain Scale 4-6) #90 tabs melatonin 5 mg capsule 5 mg PO BEDTIME #30 caps 09/01/23 memantine 10 mg tablet 10 mg PO BID 90 days #180 tabs 09/01/23 propranolol 10 mg tablet 10 mg PO TID 90 days #270 tabs 09/01/23 thiamine mononitrate (vit B1) 100 100 mg PO BID #60 tabs 09/01/23 mg tablet trazodone 50 mg tablet 50 mg PO BEDTIME PRN Insomnia 90 09/01/23 days #90 tabs Rexulti 1 mg tablet (brexpiprazole) See Rx Instructions .Route 11/19/23 .COMPLEX 30 days #45 tabs lorazepam 0.5 mg tablet 0.5 mg PO BID Anxiety 30 days #60 11/19/23 tabs mirtazapine 30 mg tablet 30 mg PO BEDTIME 30 days #30 tabs 11/19/23 quetiapine 50 mg tablet 50 mg PO BEDTIME 30 days #30 tabs 11/19/23 vortioxetine 20 mg tablet 20 mg PO DAILY@1730 90 days #90 11/19/23 (Trintellix) tabs Mental Status Exam Mental Status Exam Patient Appearance: Appropriate Patient Orientation: Person, Place and Situation Level of Consciousness: Awake Patient Behavior: Talkative, Passive and Good Eye Contact Mood Description: Depressed, Anxious and Apprehensive Affect Description: Withdrawn and Flat Patient Cognition Impaired: Yes Ability to Follow Directions: Good Speech Pattern: Clear Memory Description: Episodic Impaired Depressive Symptoms: Unhappiness, Increased Fatigue and Loss of Energy Judgement and Insight: Reasoning and judgment remains intact future oriented no SI no psychosis sleep improved Data Data Completed and Pending Completed studies during hospitalization [Text1]: 11/07/23 18:10 Urine clean catch - Clean Catch Midstream Urine Culture - Final 11/04/23 Unknown Urine clean catch - Urine medina top Urine Culture - Final No growth. Imaging Diagnostic Imaging Impressions Lumbar Spine X-Ray 11/07/23 14:05 IMPRESSION: 1. Compression deformity of the L2 vertebral body with loss of 40-50% vertebral body height is increased from previous height loss of 20-30% on 07/09/2023. 2. Chronic compression deformities of L1 and T12 vertebral bodies, similar to prior. 3. Transitional anatomy with lumbarization of the S1 vertebral body. DS: Summary Hospital Course Hospital Course: Signed Patient: Judy Rodrigues MR#: [id number] : 1950 Acct:[id number] Age/Sex: 73 / F Loc: [facility] 517-[address]: Unique Ramey APRN cc: Broderick Willett MD; Unique Ramey APRN~ HPI Date of Service: 11/06/23 Chief Complaint: Depression, Dementia Sources of Information: patient interviewed, chart reviewed and crisis/core team assessment reviewed HPI Subjective Notes: Qureshi Warning and Conditional Voluntary Healthcare Proxy: No Guardianship: No Medical Problems Affecting Mental Status: No Narrative: 73 yo female, [place] [facility] [place] history of recurrent major depression with psychotic features, anxiety, dementia, multiple medical comorbidities, to ER per her request. Pt reports she is having a mental breakdown with increased feelings of lack of safety. She reports since she left the hospital symptoms have intensified. She reports medicine compliance and questions if she was ready to leave the hospital after her previous admission. It is hard to know, I thought I was ready, but when I got home I knew I was not and I tried and it just kept getting worse. Reports racing thoughts, decrease in sleep, having very poor appetite (asks for Ensure). Denies SI/HI/AH/VH. but I want you to take care of it before it gets bad, because the last time it was very bad. Past Psychiatric History: Patient with long history of recurrent depression with multiple prior psychiatric hospitalizations. 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 no classic bipolar symptoms past depressive psychotic episodes not for a number of years Medical Evaluation Reviewed: Yes [facility] Medical History Dementia Nocturnal hypoxia Severe recurrent major depression w/psychotic features, mood-congruent Has daytime drowsiness Preoperative examination Elevated glucose Screening for colon cancer Screening for diabetes mellitus Obesity (BMI 30-39.9) Confused but orients easily Depression, major, severe recurrence Abnormal serum protein electrophoresis Mild recurrent major depression Anxiety and depression Encounter for Medicare annual wellness exam Removal of nell Depression with anxiety Abdominal distention Weight gain Major depression, recurrent, full remission POONAM (generalized anxiety disorder) Hypothyroidism Hyperparathyroidism Multinodular thyroid Vitamin D deficiency Osteoporosis Surgical History Hx of colonoscopy Hx of kyphoplasty Hx of section Family History: Depression Social History: Patient disabled has 1 son. Chronic anxiety has an intermittent difficult relationship with her mostly has not worked Substance History: Denies Trauma History: None noted Diagnostics Vital Signs (24Hr): Vital Signs - 24 hr 11/05/23 14:00 11/05/23 17:48 11/05/23 20:00 Temperature 97.3 F 97.5 F Pulse Rate 67 66 66 Respiratory Rate 18 18 Blood Pressure 110/65 121/80 118/78 Pulse Oximetry 98 97 Oxygen Delivery Method Room Air Room Air 11/06/23 08:00 Temperature 97.6 F Pulse Rate 69 Respiratory Rate 18 Blood Pressure 126/68 Pulse Oximetry 97 Oxygen Delivery Method Room Air BMI result Body Mass Index 20.1 Labs 11/04/23 13:12 document embedded image 11/04/23 13:12 document embedded image Labs: Laboratory Results - last 48 hr 11/04/23 11/04/23 11/06/23 13:12 14:23 07:53 WBC 6.6 RBC 4.97 Hgb 15.3 Hct 46.5 MCV 93.6 MCH 30.8 MCHC 32.9 RDW 13.5 Plt Count 232 D MPV 10.3 Immature Gran % (Auto) 0.3 Neut % (Auto) 66.9 Lymph % (Auto) 23.2 [place] % (Auto) 7.9 Eos % (Auto) 1.2 Baso % (Auto) 0.5 Lymph # (Auto) 1.5 [place] # (Auto) 0.5 Eos # (Auto) 0.1 Baso # (Auto) 0.0 Abs Immat Gran (auto) 0.02 Absolute Neuts (auto) 4.4 Absolute Nucleated RBC 0.000 Nucleated RBC % (auto) 0.0 Sodium 143 Potassium 4.3 Chloride 106 Carbon Dioxide 27 Anion Gap 14 BUN 18 H Creatinine 0.92 Estim Creat Clear Calc 46.2 Estimated GFR > 60 Random Glucose 97 Estimat Average Glucose 117 Hemoglobin A1c % 5.7 Calcium 10.2 Magnesium 2.1 2.0 Total Bilirubin 0.3 AST 23 ALT 24 Alkaline Phosphatase 94 Total Protein 7.8 Albumin 4.0 Triglycerides 116 Cholesterol 208 H LDL Cholesterol, Calc 128 H HDL Cholesterol 57 Vitamin B12 1618 H Folate 15.0 TSH 2.84 2.18 Free T4 0.93 Urine Color Yellow Urine Appearance Clear Urine pH 7.0 Ur Specific [place] 1.015 Urine Protein Negative Urine Glucose (UA) Negative Urine Ketones Negative Urine Blood Negative Urine Nitrite Negative Ur Leukocyte Esterase Moderate (2+) H Urine RBC 0-2 Urine WBC 11-20 H Ur Squamous Epith Cells 0-2 Urine Bacteria None Seen Hyaline Casts 0-2 Salicylates < 5.0 L Urine Opiates Screen Not Detected Ur Buprenorphine Scrn Not Detected Ur Oxycodone Screen Not Detected Urine Methadone Screen Not Detected Urine Fentanyl Screen Not Detected Acetaminophen < 3 Ur Barbiturates Screen Not Detected Ur Phencyclidine Scrn Not Detected Ur Amphetamines Screen Not Detected U Benzodiazepines Scrn Not Detected Urine Cocaine Screen Not Detected U Marijuana (THC) Screen Not Detected Ethyl Alcohol < 10 Meds/Allergies Allergies Allergies Allergy/AdvReac Type Severity Reaction Status Date / Time risperidone [From Risperdal] Allergy Intermediate UNKNOWN Verified 11/04/23 12:53 Sulfa (Sulfonamide Allergy Intermediate rash Verified 11/04/23 12:53 Antibiotics) From BENADRYL Allergy Intermediate DIZZY Uncoded 11/04/23 12:53 Mental Status Exam Mental Status Exam Patient Appearance: Appropriate Patient Orientation: Person and Situation Level of Consciousness: Awake Patient Behavior: Talkative, Passive and Good Eye Contact Mood Description: Depressed Affect Description: Flat Patient Cognition Impaired: Yes Ability to Follow Directions: Good Speech Pattern: Clear Memory Description: Episodic Impaired Hallucinations: None Delusions: Not Present Thought Process: Distracted and Slowed Thinking Thought Content: positive for [place] and positive for Circumstantial Judgement: Fair Assessment & Plan Assessment & Plan (1) Depression: Status: Acute Code(s): F32.A - Depression, unspecified (2) Dementia: Status: Acute Qualifiers: Dementia behavioral or psychological symptom: unspecified whether behavioral, psychotic, or mood disturbance or anxiety Dementia severity: mild Dementia type: unspecified type Qualified Code(s): F03.A0 - Unspecified dementia, mild, without behavioral disturbance, psychotic disturbance, mood disturbance, and anxiety Code(s): F03.90 - Unspecified dementia, unspecified severity, without behavioral disturbance, psychotic disturbance, mood disturbance, and anxiety Plan 73 yo female, history of recurrent major depression with psychotic features, dementia, and multiple medical comorbidities. [place] [facility] [place]), with increasing symptoms of depression. Pt reports poor sleep, appetite. She reports she has been taking medications is willing to make any changes that are needed and will help. Plan: CV 15 minute checks Collateral contact with family Increase Rexulti to 1 mg daily from 0.5 mg daily Diagnostics as needed Patient educated on: medication risk/benefits, therapeutic strategies and other Reason for continued inpatient stay Substantial Risk for: rapid decompensation Statement Statement: I have reviewed the history and physical and performed a pertinent examination on my patient. No changes have occurred unless specified. If the History and Physical was not performed prior to admission, the Hospitalist's service will be consulted for completing the admission physical. Time Spent With Patient Time: Total time managing care of this patient today ____ minutes. 11/07: Continue tx. 11/09: Continue tx 11/10/2023 Increase Seroquel to 50 mg at bedtime restart Rexulti 1 mg in the morning 11/11 Inc rexulti as tolerated encourage oob 11/14 continue tx. 11/16/23 Continue Rexulti mirtazapine encourage out of bed and food intake. Consider Latuda 11/17/23 Pt with depression poor bryn not a candidate for ect may be candidate for tms mirtazapine inc 30 mg bedtime 11/17 Aricept lowwered sec to dec bryn appetite seroquel remeron for dep appetite ? unclear if stable for d/c The patient seems stable for discharge by 11/19/2023 She continued to have some difficulty with appetite Rexulti was increased to 1.5 mg day Seroquel 50 mg at bedtime Aricept time of discharge was increased back to 10 mg so as to prevent a cognitive deterioration Trintellix 20 mg plan to start TMS mirtazapine at 30 mg patient had been on doxepin previously will consider tapering mirtazapine outpatient in restarting doxepin if needed Patient would benefit from TMS referral given recurrent depression without psychosis treatment resistant depression history of good response to ECT however has had cognitive difficulties last time we attempted TNS TMS would be a more benign therapy Patient is going back to living with her there had been some consideration of half-way facility during last hospital cessation eventually the patient has sufficient recovery and she has done well with visiting nurse service not tracking her own medication. She and her appear quite committed to each other Status at Discharge Cognitive/behavioral status at discharge: Patient alert independent ambulating independently able to perform ADLs Functional status at discharge: independent ambulation Overall status at discharge: patient is progressing back to baseline Time Spent with Patient Time attestation: Total time managing care of this patient today 25___ minutes. Time spent: Less than 30 minutes Discharge Plan Discharge Anticipated Discharge Date/Time: 11/19/23 11:30 Patient Disposition: Home Health Service Discharge Diagnosis: major depression recurrent severe generalized anxiety disorder vascular dementia Referrals: [facility]: TMS [Other] - 11/23/23 12:30 pm (Scheduled TMS Appointment ) Dr Broderick Willett (psychiatry) [Other] - 1 Week (Hospital Discharge appointment with psychiatric medication provider.) Brittany Tinajero MD [Primary Care Provider] - 1 Week (Dr. Rodriguez's office will call you to schedule an appointment to be seen in 1 week) Discharge Medications: New Rexulti 1 mg Tablet See Rx Instructions .ROUTE .COMPLEX 30 Days Qty: 45 2RF Rx Instructions: 1 tab in the am 1/2 tab bedtime mirtazapine 30 mg Tablet 30 mg PO BEDTIME 30 Days Qty: 30 2RF quetiapine 50 mg Tablet 50 mg PO BEDTIME 30 Days Qty: 30 3RF Continued ibuprofen 200 mg Tablet 200 mg PO Q6H PRN (Reason: Pain, Moderate(Pain Scale 4-6)) Qty: 90 2RF memantine 10 mg Tablet 10 mg PO BID 90 Days Qty: 180 1RF trazodone 50 mg Tablet 50 mg PO BEDTIME PRN (Reason: Insomnia) 90 Days Qty: 90 1RF propranolol 10 mg Tablet 10 mg PO TID 90 Days Qty: 270 1RF Protocol: Hold for SBP/HR < HOLD for SBP < : 90 HOLD for HR < : 60 donepezil 10 mg Tablet 10 mg PO BEDTIME 30 Days Qty: 30 3RF folic acid 1 mg tablet 1 mg PO DAILY Qty: 90 1RF melatonin 5 mg capsule 5 mg PO BEDTIME Qty: 30 3RF thiamine mononitrate (vit B1) 100 mg Tablet 100 mg PO BID Qty: 60 3RF lorazepam 0.5 mg Tablet 0.5 mg PO BID 30 Days Qty: 60 2RF Changed Trintellix 20 mg Tablet 20 mg PO DAILY@1730 90 Days Qty: 90 1RF Discontinued quetiapine 25 mg Tablet 25 mg PO DIRECTED 30 Days Qty: 60 3RF Rx Instructions: 1 tab bedtime may take one extra tablets daily for severe anxiety/ insomnia mirtazapine 15 mg tablet 15 mg PO BEDTIME Qty: 30 1RF Rexulti 0.5 mg tablet 0.5 mg PO DAILY Qty: 30 1RF Discharge Orders: Discharge Order (Routine); Ordered 11/19/23 Ordered By: Broderick Willett Diet: Advance to usual diet Activity on Discharge: As tolerated Stand Alone Forms: Patient Portal Discharge page, Community Support Print Language: Upper Sorbian Care Plan Goals: improve mood maintain nutrition increase activity Health Concerns: depression hypertension memory disorder Plan of Treatment: medication visiting nurse do daily walk stay out of bed Assessment: future oriented Discharge Date/Time: 11/19/23 11:12
== END 2023-11-19 11:12 | disposition home health service (06) | DRG 885 ==
LOC: HO.ED 17:24 → HO.PM5 11-05 16:33
PROVIDERS: Physician Assistant; Physician Assistant Medical; Admitting Provider Clinical Nurse Specialist Psychiatric/Mental Health, Adult; Emergency Provider Emergency Medicine; PCP Internal Medicine; Visit Provider Psychiatry & Neurology Psychiatry
DX: F33.2 Major depressive disorder, recurrent severe without psychotic features (principal); F41.1 Generalized anxiety disorder; F01.C0 Vascular dementia, severe, without behavioral disturbance, psychotic disturbance, mood disturbance, and anxiety; Z79.899 Other long term (current) drug therapy
CPT/HCPCS: 36415; 72110; 80053; 80061; 80143; 80179; 80307; 81001; 82607; 82746; 83036; 83735; 84439; 84443; 85025; 87086; 93005; 99285; S9485

== ENCOUNTER → 2023-11-04 12:58 | Outpatient (BNV) | payer MEDICARE, MEDICAID, SELFPAY | PROVIDERS: Emergency Provider Emergency Medicine; PCP Internal Medicine; Visit Provider Psychiatry & Neurology Psychiatry | DX: F33.2 Major depressive disorder, recurrent severe without psychotic features (principal); F03.A0 Unspecified dementia, mild, without behavioral disturbance, psychotic disturbance, mood disturbance, and anxiety | CPT/HCPCS: 90792; 99231; 99232 ==

== ENCOUNTER → 2023-11-04 13:59 | Outpatient (BNV) | payer MEDICARE, MEDICAID, SELFPAY | PROVIDERS: Emergency Provider Emergency Medicine; PCP Internal Medicine; Visit Provider Internal Medicine | DX: R94.31 Abnormal electrocardiogram [ECG] [EKG] (principal) | CPT/HCPCS: 93010 ==

== ENCOUNTER → 2023-11-05 16:02 | Outpatient (BNV) | payer MEDICARE, MEDICAID, SELFPAY | PROVIDERS: Admitting Provider Clinical Nurse Specialist Psychiatric/Mental Health, Adult; Emergency Provider Emergency Medicine; PCP Internal Medicine; Visit Provider Psychiatry & Neurology Psychiatry | DX: F33.2 Major depressive disorder, recurrent severe without psychotic features (principal); F03.A0 Unspecified dementia, mild, without behavioral disturbance, psychotic disturbance, mood disturbance, and anxiety | CPT/HCPCS: 99231; 99232; 99238; 99499 ==

== ENCOUNTER → 2023-11-23 13:18 | Outpatient (BNV) | payer MEDICARE, MEDICAID, SELFPAY | PROVIDERS: Visit Provider Psychiatry & Neurology Psychiatry | DX: F33.2 Major depressive disorder, recurrent severe without psychotic features (principal) | CPT/HCPCS: 90867; 90868 ==

== ENCOUNTER 2023-12-08 15:00 | Outpatient (AMB) | payer MEDICARE, MEDICAID, SELFPAY ==
--- NOTE | 2023-12-08 15:14 | A.OFFPSYCH_ITS ---
Intake Intake Visit Reasons: Depression Allergies risperidone [From Risperdal] Allergy (Intermediate, Verified 11/04/23 12:53) UNKNOWN Sulfa (Sulfonamide Antibiotics) Allergy (Intermediate, Verified 11/04/23 12:53) rash From BENADRYL Allergy (Intermediate, Uncoded 11/04/23 12:53) DIZZY Medication List - Last Reconciled 12/08/23 by Broderick Willett MD donepezil 10 mg PO BEDTIME 30 days folic acid 1 mg PO DAILY ibuprofen 200 mg PO Q6H PRN lorazepam 0.5 mg PO BID 30 days melatonin 5 mg PO BEDTIME memantine 10 mg PO BID 90 days mirtazapine 30 mg PO BEDTIME 30 days propranolol 10 mg See Protocol PO TID 90 days quetiapine 50 mg PO BEDTIME 30 days Rexulti (brexpiprazole) 1 tab in the am 1/2 tab bedtime 30 days NS thiamine mononitrate (vit B1) 100 mg PO BID trazodone 50 mg PO BEDTIME PRN 90 days vortioxetine (Trintellix) 20 mg PO DAILY@1730 90 days HPI- Psychiatric Chief Complaint: Depression HPI Narrative: Patient has started TMS she goes with her on a daily basis mood seems generally stable mildly flat but can brighten future oriented getting along well with . Somewhat passive withdrawn have encouraged daily walks other activity Past Psychiatric History: Patient with long history of recurrent depression with multiple prior psychiatric hospitalizations. 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 no classic bipolar symptoms past depressive psychotic episodes not for a number of years Mental Status Exam Mental Status Exam Patient Appearance: Appropriate Patient Orientation: Person, Place and Situation Level of Consciousness: Awake Patient Behavior: Talkative, Passive and Good Eye Contact Mood Description: Depressed and Flat Affect Description: Flat Patient Cognition Impaired: Yes Ability to Follow Directions: Good Speech Pattern: Clear Memory Description: Episodic Impaired Depressive Symptoms: Increased Anxiety, Changes in Appetite and Difficulty Concentrating Judgement and Insight: Reasoning and judgment ok no SI no psychosis sleep improved improved mood Assessment and Plan Assessment & Plan (1) Major depressive disorder, recurrent severe without psychotic features: Status: Acute Code(s): F33.2 - Major depressive disorder, recurrent severe without psychotic features (2) POONAM (generalized anxiety disorder): Status: Acute Code(s): F41.1 - Generalized anxiety disorder Plan Patient seems to be responding to TMS continue plan of care continue Rexulti augmentation Counseling and coordination of Care Pt. Self Management counseling: Breathing, Light exposure and Maintenance-social rhythm Medication management counseling: Effectiveness and Side effects Diagnosis and Prognosis Counseling: Adequacy of current interventions Details-Diagnosis/Prognosis counseling: Patient seen with her seems to be doing better TMS also significant c hange in characterization their relationship seems much more mutually supportive and kind no abnormal movements noted on exam continue TMS continue medication patient significantly improved Details: I spent [27] minutes reviewing the record, seeing the patient and documenting in the medical record. Counseling provided to the patient/caregiver as outlined below. Addressed patient/caregiver concerns regarding current medication regime including effective adherence. Addressed patient/caregiver concerns regarding diagnosis and prognosis including accuracy of diagnosis, prognosis over time, impact of diagnosis. Addressed patient/caregiver concerns regarding impact of recent stressors. [facility] Medical History (Updated 01/06/24 @ 11:18 by Broderick Willett MD) Dementia Nocturnal hypoxia Severe recurrent major depression w/psychotic features, mood-congruent Has daytime drowsiness Preoperative examination Elevated glucose Screening for colon cancer Screening for diabetes mellitus Obesity (BMI 30-39.9) Confused but orients easily Depression, major, severe recurrence Abnormal serum protein electrophoresis Mild recurrent major depression Anxiety and depression Encounter for Medicare annual wellness exam Removal of nell Depression with anxiety Abdominal distention Weight gain Major depression, recurrent, full remission POONAM (generalized anxiety disorder) Hypothyroidism Hyperparathyroidism Multinodular thyroid Vitamin D deficiency Osteoporosis Surgical History Hx of colonoscopy Hx of kyphoplasty Hx of section Family History Father Myocardial infarction CVD (cardiovascular disease) Mother Dementia Alzheimer disease Other Mental health disorder Social History Household Members: Spouse Housing: Apartment Do you presently have visiting nurse or other home services: No Alcohol intake: never Comment: 1:1 sitter at bedside Patient Tobacco Use Status: Never used Tobacco e-Cigarette/Vaping Use: Never Used Second Hand Smoke Exposure: No service: No Current occupational status: unemployed Sexual orientation: Straight/Heterosexual Cognitive needs: No Hearing needs: No Social History: Patient disabled has 1 son. Chronic anxiety has an intermittent difficult relationship with her mostly has not worked Substance History: Denies Trauma History: None noted Coding Level of Care Code Est Pt Level 4 (73844) Diagnoses Major depressive disorder, recurrent severe without psychotic features F33.2 POONAM (generalized anxiety disorder) F41.1
== END 2023-12-08 16:11 | disposition home or self-care (01) ==
LOC: HO.HOP 15:00
PROVIDERS: Visit Provider Psychiatry & Neurology Psychiatry
DX: F33.2 Major depressive disorder, recurrent severe without psychotic features (principal); F41.1 Generalized anxiety disorder
CPT/HCPCS: 99214

== ENCOUNTER → 2023-12-08 15:00 | Outpatient (BNVA) | payer MEDICARE, MEDICAID, SELFPAY | PROVIDERS: Visit Provider Psychiatry & Neurology Psychiatry | DX: F41.9 Anxiety disorder, unspecified (principal); F32.A Depression, unspecified | CPT/HCPCS: 99212 ==

== ENCOUNTER → 2024-01-06 14:40 | Outpatient (BNVA) | payer MEDICARE, MEDICAID, SELFPAY | PROVIDERS: Visit Provider Psychiatry & Neurology Psychiatry ==

== ENCOUNTER 2024-01-18 14:30 | Outpatient (RCR) | payer MEDICARE, MEDICAID, SELFPAY ==
--- NOTE | 2023-11-23 11:13 | W.PM.TMSCONS ---
History of Present Illness General Data Date of Service: 11/23/23 Reason for consult: tms History of Present Illness Pt just d/c from psych unit hx of recurrent dep was admitted with tx resistant depression has failed multiple med trials supportive tx with this chief underwriter hx of good response to ect but now has had confusion have discussed tms patient currently on mirtazapine Rexulti for augmentation Trintellix recent trials of augmentation Vraylar has had doxepin Seroquel. Patient living with her when significantly depressed they both have greater degree of maintaining her as an outpatient she does have VNA PHQ-9 elevated also failure of caplyta doxepin significance and symptoms of depressed mood decreased appetite difficulty concentrating and enjoying things problems motivation energy. She and her are generally getting along better than they have previously he is quite supportive Past Psychiatric History/Medication Trials: History of recurrent depression re status post recent hospitalization has some degree of cognitive impairment PMFSH Medical History Dementia Nocturnal hypoxia Severe recurrent major depression w/psychotic features, mood-congruent Has daytime drowsiness Preoperative examination Elevated glucose Screening for colon cancer Screening for diabetes mellitus Obesity (BMI 30-39.9) Confused but orients easily Depression, major, severe recurrence Abnormal serum protein electrophoresis Mild recurrent major depression Anxiety and depression Encounter for Medicare annual wellness exam Removal of nell Depression with anxiety Abdominal distention Weight gain Major depression, recurrent, full remission POONAM (generalized anxiety disorder) Hypothyroidism Hyperparathyroidism Multinodular thyroid Vitamin D deficiency Osteoporosis Surgical History Hx of colonoscopy Hx of kyphoplasty Hx of section Family History: Depression Social History: Patient disabled has 1 son. Chronic anxiety has an intermittent difficult relationship with her mostly has not worked Trauma History: None noted Meds/Allergies Meds Narrative: Current medications include Rexulti 1.5 mg Trintellix 5 mg daily lorazepam 0.5 mg p.o. b.i.d. Seroquel 25-50 mg at bedtime mirtazapine 30 mg at bedtime donepezil 10 mg bedtime Namenda 10 mg b.i.d. propranolol 10 t.i.d. Trintellix 20 mg daily Allergies Allergies Allergy/AdvReac Type Severity Reaction Status Date / Time risperidone [From Risperdal] Allergy Intermediate UNKNOWN Verified 11/04/23 12:53 Sulfa (Sulfonamide Allergy Intermediate rash Verified 11/04/23 12:53 Antibiotics) From BENADRYL Allergy Intermediate DIZZY Uncoded 11/04/23 12:53 Mental Status Exam Mental Status Exam Patient Appearance: Appropriate Patient Orientation: Person, Place and Situation Level of Consciousness: Awake Patient Behavior: Talkative, Passive and Good Eye Contact Mood Description: Depressed, Anxious and Apprehensive Affect Description: Withdrawn and Flat Patient Cognition Impaired: Yes Ability to Follow Directions: Good Speech Pattern: Clear Memory Description: Episodic Impaired Depressive Symptoms: Increased Anxiety, Diff. Making Decisions, Changes in Appetite, Loss of Int. in Activity, Isolating-Friends/Family, Unhappiness, Increased Fatigue, Loss of Energy and Difficulty Concentrating Judgement and Insight: Reasoning and judgment ok no SI no psychosis sleep improved Assessment & Plan Assessment & Plan (1) Major depressive disorder, recurrent severe without psychotic features: Status: Acute Code(s): F33.2 - Major depressive disorder, recurrent severe without psychotic features Plan Patient with history of treatment resistant depression has failed multiple medication trials discussed with patient TMS as alternative to ECT which did cause confusion previously this has been the go to in the past. Multiple medications in different classes tried supportive therapy patient would benefit from TMS trial if need be reconsider ECT Total time managing care of this patient today ____ minutes. Patient educated on: diagnosis, medication risk/benefits and TMS Informed Consent: further education needed
--- NOTE | 2023-11-23 22:16 | HO.TMSDAILY2 ---
TMS Daily Progress Note Daily TMS Progress Note Date of Service: 11/23/23 Week #: 1 Treatment #(07-07): 1 PHQ-9 Pre-Treatment (07-04): 16 PHQ-9 Most Recent (07-04): 16 Reviewed: TMS Mapping/Re-mapping completed Verification: I have reviewed the TMS Operating Systems Programmer Note and agree with the contents. The patient remains a candidate to continue TMS treatment per protocol. Assessment and Plan (1) Major depressive disorder, recurrent severe without psychotic features: Status: Acute Plan 1 st tx completed some neck discomfort pre tx
--- NOTE | 2024-01-06 11:08 | HO.TMSDAILY2 ---
TMS Daily Progress Note Daily TMS Progress Note Date of Service: 11/24/23 Week #: 1 Treatment #(07-07): 2 PHQ-9 Pre-Treatment (07-04): 16 PHQ-9 Most Recent (07-04): 16 Reviewed: TMS Tech Note Reviewed Verification: I have reviewed the TMS Personal Financial Representative Note and agree with the contents. The patient remains a candidate to continue TMS treatment per protocol. Assessment and Plan (1) Major depressive disorder, recurrent severe without psychotic features: Status: Acute Plan Patient with some discomfort MT was increased 80%
--- NOTE | 2024-01-06 11:16 | HO.TMSDAILY2 ---
TMS Daily Progress Note Daily TMS Progress Note Date of Service: 11/25/23 Week #: 1 Treatment #(30): 3 PHQ-9 Pre-Treatment (-): 16 PHQ-9 Most Recent (07-04): 16 POONAM-7 Pre-Treatment (0-21): 15 POONAM-7 Most Recent (0-21): 15 Reviewed: TMS Tech Note Reviewed Verification: I have reviewed the TMS County Coroner Note and agree with the contents. The patient remains a candidate to continue TMS treatment per protocol. Assessment and Plan (1) Major depressive disorder, recurrent severe without psychotic features: Status: Acute Plan Patient is somewhat flat seen with tolerating treatment future oriented
--- NOTE | 2024-01-06 11:19 | P.PNPS_ITS ---
TMS Daily Progress Note Daily TMS Progress Note Date of Service: 11/26/23 Week #: 1 Treatment #(07-07): 4 PHQ-9 Pre-Treatment (-): 16 PHQ-9 Most Recent (07-04): 16 POONAM-7 Pre-Treatment (0-21): 15 POONAM-7 Most Recent (0-21): 15 Reviewed: TMS Tech Note Reviewed Verification: I have reviewed the TMS Chief Petroleum Engineer Note and agree with the contents. The patient remains a candidate to continue TMS treatment per protocol. Assessment and Plan (1) Major depressive disorder, recurrent severe without psychotic features: Status: Acute Plan Patient seen with her somewhat flat tolerating treatment does brighten
--- NOTE | 2024-01-06 11:21 | HO.TMSDAILY2 ---
TMS Daily Progress Note Daily TMS Progress Note Date of Service: 11/27/23 Week #: 1 Treatment #(07-07): 5 PHQ-9 Pre-Treatment (07-04): 16 PHQ-9 Most Recent (07-04): 16 POONAM-7 Pre-Treatment (0-): 15 POONAM-7 Most Recent (0-): 15 Reviewed: TMS Tech Note Reviewed Verification: I have reviewed the TMS Blade Bender Furnace Tender Note and agree with the contents. The patient remains a candidate to continue TMS treatment per protocol. Assessment and Plan (1) Major depressive disorder, recurrent severe without psychotic features: Status: Acute Plan Patient seen with her somewhat flat tolerating treatment does brighten. Has some complaints of back pain which are chronic has been seen by pain management in the past
--- NOTE | 2024-01-06 11:22 | P.PNPS_ITS ---
TMS Daily Progress Note Daily TMS Progress Note Date of Service: 11/30/23 Week #: 2 Treatment #(-30): 6 PHQ-9 Pre-Treatment (-): 16 PHQ-9 Most Recent (07-04): 15 POONAM-7 Pre-Treatment (0-21): 15 POONAM-7 Most Recent (0-21): 15 Reviewed: TMS Tech Note Reviewed Verification: I have reviewed the TMS Lithograph Press Feeder Note and agree with the contents. The patient remains a candidate to continue TMS treatment per protocol. Assessment and Plan (1) Major depressive disorder, recurrent severe without psychotic features: Status: Acute Plan Improved appetite MT increased to 95 % generally tolerating treatment can brighten less flat than normal appetite has improved
--- NOTE | 2024-01-06 11:28 | P.PNPS_ITS ---
TMS Daily Progress Note Daily TMS Progress Note Date of Service: 12/01/23 Week #: 2 Treatment #(-30): 7 PHQ-9 Pre-Treatment (-): 16 PHQ-9 Most Recent (07-04): 15 POONAM-7 Pre-Treatment (0-21): 15 POONAM-7 Most Recent (0-21): 15 Reviewed: TMS Tech Note Reviewed Verification: I have reviewed the TMS Recordings Librarian Note and agree with the contents. The patient remains a candidate to continue TMS treatment per protocol. Assessment and Plan (1) Major depressive disorder, recurrent severe without psychotic features: Status: Acute Plan Patient continues to tolerate treatment comes in with her regularly no significant side effects noted
--- NOTE | 2024-01-06 11:32 | HO.TMSDAILY2 ---
TMS Daily Progress Note Daily TMS Progress Note Date of Service: 12/02/23 Week #: 2 Treatment #(-30): 8 PHQ-9 Pre-Treatment (-): 16 PHQ-9 Most Recent (07-04): 15 POONAM-7 Pre-Treatment (0-21): 15 POONAM-7 Most Recent (0-21): 15 Reviewed: TMS Tech Note Reviewed Verification: I have reviewed the TMS Senior Sales Associate Note and agree with the contents. The patient remains a candidate to continue TMS treatment per protocol. Assessment and Plan (1) Major depressive disorder, recurrent severe without psychotic features: Status: Acute Plan MILD GRIJALVA NOTED PRE TX Patient continues to tolerate treatment comes in with her regularly no significant side effects noted
--- NOTE | 2024-01-06 11:33 | HO.TMSDAILY2 ---
TMS Daily Progress Note Daily TMS Progress Note Date of Service: 12/03/23 Week #: 2 Treatment #(07-07): 9 PHQ-9 Pre-Treatment (07-04): 16 PHQ-9 Most Recent (07-04): 15 POONAM-7 Pre-Treatment (0-): 15 POONAM-7 Most Recent (0-): 15 Reviewed: TMS Tech Note Reviewed Verification: I have reviewed the TMS Almond Pan Finisher Note and agree with the contents. The patient remains a candidate to continue TMS treatment per protocol. Assessment and Plan (1) Major depressive disorder, recurrent severe without psychotic features: Status: Acute Plan Patient continues to tolerate treatment comes in with her regularly no significant side effects noted seems brighter
--- NOTE | 2024-01-21 22:35 | P.PNPS_ITS ---
TMS Daily Progress Note Daily TMS Progress Note Date of Service: 12/04/23 Week #: 2 Treatment #(07-07): 10 PHQ-9 Pre-Treatment (-): 16 PHQ-9 Most Recent (07-04): 15 POONAM-7 Pre-Treatment (0-): 15 POONAM-7 Most Recent (0-): 15 Reviewed: TMS Tech Note Reviewed Verification: I have reviewed the TMS Technical Assistant Note and agree with the contents. The patient remains a candidate to continue TMS treatment per protocol. Assessment and Plan (1) Major depressive disorder, recurrent severe without psychotic features: Status: Acute Plan Patient continues to tolerate treatment comes in with her regularly no significant side effects noted seems brighter ongoing
--- NOTE | 2024-01-21 22:37 | P.PNPS_ITS ---
TMS Daily Progress Note Daily TMS Progress Note Date of Service: 12/07/23 Week #: 3 Treatment #(07-07): 11 PHQ-9 Pre-Treatment (-): 16 PHQ-9 Most Recent (07-04): 15 POONAM-7 Pre-Treatment (0-): 15 POONAM-7 Most Recent (0-): 15 Reviewed: TMS Tech Note Reviewed Verification: I have reviewed the TMS Student Development Specialist Note and agree with the contents. The patient remains a candidate to continue TMS treatment per protocol. Assessment and Plan (1) Major depressive disorder, recurrent severe without psychotic features: Status: Acute Plan Patient continues to tolerate treatment comes in with her regularly no significant side effects noted seems brighter ongoing
--- NOTE | 2024-01-21 22:38 | P.PNPS_ITS ---
TMS Daily Progress Note Daily TMS Progress Note Date of Service: 12/08/23 Week #: 3 Treatment #(-30): 12 PHQ-9 Pre-Treatment (-): 16 PHQ-9 Most Recent (07-04): 15 POONAM-7 Pre-Treatment (0-21): 15 POONAM-7 Most Recent (0-21): 15 Reviewed: TMS Tech Note Reviewed Verification: I have reviewed the TMS Central Station Operator Note and agree with the contents. The patient remains a candidate to continue TMS treatment per protocol. Assessment and Plan (1) Major depressive disorder, recurrent severe without psychotic features: Status: Acute Plan pt seen flores affect eating improved
--- NOTE | 2024-01-21 22:39 | P.PNPS_ITS ---
TMS Daily Progress Note Daily TMS Progress Note Date of Service: 12/09/23 Week #: 3 Treatment #(-30): 13 PHQ-9 Pre-Treatment (-): 16 PHQ-9 Most Recent (07-04): 7 POONAM-7 Pre-Treatment (0-21): 15 POONAM-7 Most Recent (0-21): 15 Reviewed: TMS Tech Note Reviewed Verification: I have reviewed the TMS Per Diem Physical Therapist Note and agree with the contents. The patient remains a candidate to continue TMS treatment per protocol. Assessment and Plan (1) Major depressive disorder, recurrent severe without psychotic features: Status: Acute Plan cont plan of care improving
--- NOTE | 2024-01-21 22:45 | P.PNPS_ITS ---
TMS Daily Progress Note Daily TMS Progress Note Date of Service: 12/11/23 Week #: 3 Treatment #(30): 14 PHQ-9 Pre-Treatment (-): 16 PHQ-9 Most Recent (07-04): 7 POONAM-7 Pre-Treatment (0-21): 15 POONAM-7 Most Recent (0-21): 15 Reviewed: TMS Tech Note Reviewed Verification: I have reviewed the TMS Corporate Administrative Assistant Note and agree with the contents. The patient remains a candidate to continue TMS treatment per protocol. Assessment and Plan (1) Major depressive disorder, recurrent severe without psychotic features: Status: Acute Plan cont plan of care feeling better
--- NOTE | 2024-01-21 22:49 | P.PNPS_ITS ---
TMS Daily Progress Note Daily TMS Progress Note Date of Service: 12/14/23 Week #: 3 Treatment #(-30): 15 PHQ-9 Pre-Treatment (-): 16 PHQ-9 Most Recent (07-04): 6 POONAM-7 Pre-Treatment (0-21): 15 POONAM-7 Most Recent (0-21): 15 Reviewed: TMS Tech Note Reviewed Verification: I have reviewed the TMS Shotblast Equipment Operator Note and agree with the contents. The patient remains a candidate to continue TMS treatment per protocol. Assessment and Plan (1) Major depressive disorder, recurrent severe without psychotic features: Status: Acute Plan cont plan of care feeling better
--- NOTE | 2024-01-21 22:54 | P.PNPS_ITS ---
TMS Daily Progress Note Daily TMS Progress Note Date of Service: 12/15/23 Week #: 4 Treatment #(30): 16 PHQ-9 Pre-Treatment (-): 16 PHQ-9 Most Recent (07-04): 6 POONAM-7 Pre-Treatment (0-21): 15 POONAM-7 Most Recent (0-21): 15 Reviewed: TMS Tech Note Reviewed Verification: I have reviewed the TMS Patient Financial Advocate Note and agree with the contents. The patient remains a candidate to continue TMS treatment per protocol. Assessment and Plan (1) Major depressive disorder, recurrent severe without psychotic features: Status: Acute Plan cont plan of care feeling better
--- NOTE | 2024-01-21 23:01 | P.PNPS_ITS ---
TMS Daily Progress Note Daily TMS Progress Note Date of Service: 12/16/23 Week #: 4 Treatment #(-30): 17 PHQ-9 Pre-Treatment (-): 6 PHQ-9 Most Recent (07-04): 6 POONAM-7 Pre-Treatment (0-21): 15 POONAM-7 Most Recent (0-21): 15 Reviewed: TMS Tech Note Reviewed Verification: I have reviewed the TMS Java Portal Developer Note and agree with the contents. The patient remains a candidate to continue TMS treatment per protocol. Assessment and Plan (1) Major depressive disorder, recurrent severe without psychotic features: Status: Acute Plan cont plan of care feeling better
--- NOTE | 2024-01-21 23:03 | P.PNPS_ITS ---
TMS Daily Progress Note Daily TMS Progress Note Date of Service: 12/17/23 Week #: 4 Treatment #(-30): 18 PHQ-9 Pre-Treatment (-): 6 PHQ-9 Most Recent (07-04): 6 POONAM-7 Pre-Treatment (0-21): 15 POONAM-7 Most Recent (0-21): 15 Reviewed: TMS Tech Note Reviewed Verification: I have reviewed the TMS Client Business Manager Note and agree with the contents. The patient remains a candidate to continue TMS treatment per protocol. Assessment and Plan (1) Major depressive disorder, recurrent severe without psychotic features: Status: Acute Plan cont plan of care feeling better
--- NOTE | 2024-01-21 23:05 | P.PNPS_ITS ---
TMS Daily Progress Note Daily TMS Progress Note Date of Service: 12/18/23 Week #: 4 Treatment #(-30): 19 PHQ-9 Pre-Treatment (-): 6 PHQ-9 Most Recent (07-04): 6 POONAM-7 Pre-Treatment (0-21): 15 POONAM-7 Most Recent (0-21): 15 Reviewed: TMS Tech Note Reviewed Verification: I have reviewed the TMS Hand Woodworking Sander Note and agree with the contents. The patient remains a candidate to continue TMS treatment per protocol. Assessment and Plan (1) Major depressive disorder, recurrent severe without psychotic features: Status: Acute Plan cont plan of care
--- NOTE | 2024-01-21 23:07 | HO.TMSDAILY2 ---
TMS Daily Progress Note Daily TMS Progress Note Date of Service: 12/21/23 Week #: 4 Treatment #(-30): 20 PHQ-9 Pre-Treatment (-): 18 PHQ-9 Most Recent (07-04): 9 POONAM-7 Pre-Treatment (0-21): 15 POONAM-7 Most Recent (0-21): 15 Reviewed: TMS Tech Note Reviewed Verification: I have reviewed the TMS Emotionally Impaired Teacher Note and agree with the contents. The patient remains a candidate to continue TMS treatment per protocol.
--- NOTE | 2024-01-21 23:13 | P.PNPS_ITS ---
TMS Daily Progress Note Daily TMS Progress Note Date of Service: 01/21/24 Week #: 5 Treatment #(-30): 21 PHQ-9 Pre-Treatment (-): 16 PHQ-9 Most Recent (07-04): 9 POONAM-7 Pre-Treatment (0-21): 15 POONAM-7 Most Recent (0-21): 15 Reviewed: TMS Tech Note Reviewed Verification: I have reviewed the TMS Interior Assemblies Installer Note and agree with the contents. The patient remains a candidate to continue TMS treatment per protocol. Assessment and Plan (1) Major depressive disorder, recurrent severe without psychotic features: Status: Acute Plan cont plan of care
--- NOTE | 2024-01-21 23:16 | P.PNPS_ITS ---
TMS Daily Progress Note Daily TMS Progress Note Date of Service: 12/22/23 Week #: 5 Treatment #(-30): 21 PHQ-9 Pre-Treatment (-): 16 PHQ-9 Most Recent (07-04): 9 POONAM-7 Pre-Treatment (0-21): 15 POONAM-7 Most Recent (0-21): 15 Reviewed: TMS Tech Note Reviewed Verification: I have reviewed the TMS Airplane Technician Note and agree with the contents. The patient remains a candidate to continue TMS treatment per protocol.
--- NOTE | 2024-01-21 23:19 | P.PNPS_ITS ---
TMS Daily Progress Note Daily TMS Progress Note Date of Service: 12/23/23 Week #: 5 Treatment #(-30): 22 PHQ-9 Pre-Treatment (-): 16 PHQ-9 Most Recent (07-04): 9 POONAM-7 Pre-Treatment (0-21): 15 POONAM-7 Most Recent (0-21): 15 Reviewed: TMS Tech Note Reviewed Verification: I have reviewed the TMS Furnace Operator Oil Or Gas Note and agree with the contents. The patient remains a candidate to continue TMS treatment per protocol. Assessment and Plan (1) Major depressive disorder, recurrent severe without psychotic features: Status: Acute Plan cont plan of care
--- NOTE | 2024-01-21 23:21 | HO.TMSDAILY2 ---
TMS Daily Progress Note Daily TMS Progress Note Date of Service: 12/24/23 Week #: 5 Treatment #(-30): 23 PHQ-9 Pre-Treatment (-): 16 PHQ-9 Most Recent (07-04): 9 POONAM-7 Pre-Treatment (0-21): 15 POONAM-7 Most Recent (0-21): 15 Reviewed: TMS Tech Note Reviewed Verification: I have reviewed the TMS Social Worker Delinquency Prevention Note and agree with the contents. The patient remains a candidate to continue TMS treatment per protocol. Assessment and Plan (1) Major depressive disorder, recurrent severe without psychotic features: Status: Acute Plan cont plan of care
--- NOTE | 2024-01-21 23:23 | HO.TMSDAILY2 ---
TMS Daily Progress Note Daily TMS Progress Note Date of Service: 12/25/23 Week #: 5 Treatment #(-30): 24 PHQ-9 Pre-Treatment (-): 16 PHQ-9 Most Recent (07-04): 9 POONAM-7 Pre-Treatment (0-21): 15 POONAM-7 Most Recent (0-21): 15 Reviewed: TMS Tech Note Reviewed Verification: I have reviewed the TMS Manager Career Note and agree with the contents. The patient remains a candidate to continue TMS treatment per protocol. Assessment and Plan (1) Major depressive disorder, recurrent severe without psychotic features: Status: Acute Plan cont plan of care
--- NOTE | 2024-01-21 23:26 | P.PNPS_ITS ---
TMS Daily Progress Note Daily TMS Progress Note Date of Service: 01/21/24 Week #: 5 Treatment #(-30): 25 PHQ-9 Pre-Treatment (1-): 16 PHQ-9 Most Recent (-): 9 POONAM-7 Pre-Treatment (0-21): 15 POONAM-7 Most Recent (0-21): 15 Reviewed: TMS Tech Note Reviewed Verification: I have reviewed the TMS Sales Support Rep Note and agree with the contents. The patient remains a candidate to continue TMS treatment per protocol. Assessment and Plan (1) Major depressive disorder, recurrent severe without psychotic features: Status: Acute Plan cont plan of care
--- NOTE | 2024-01-21 23:28 | P.PNPS_ITS ---
TMS Daily Progress Note Daily TMS Progress Note Date of Service: 12/29/23 Week #: 6 Treatment #(-30): 26 PHQ-9 Pre-Treatment (-): 16 PHQ-9 Most Recent (07-04): 9 POONAM-7 Pre-Treatment (0-21): 15 POONAM-7 Most Recent (0-21): 15 Reviewed: TMS Tech Note Reviewed Verification: I have reviewed the TMS Subcontract Administrator Note and agree with the contents. The patient remains a candidate to continue TMS treatment per protocol.
--- NOTE | 2024-01-21 23:29 | P.PNPS_ITS ---
TMS Daily Progress Note Daily TMS Progress Note Date of Service: 12/30/23 Week #: 6 Treatment #(-30): 27 PHQ-9 Pre-Treatment (-): 16 PHQ-9 Most Recent (07-04): 9 POONAM-7 Pre-Treatment (0-21): 15 POONAM-7 Most Recent (0-21): 15 Reviewed: TMS Tech Note Reviewed Verification: I have reviewed the TMS Desizing Machine Operator Head End Note and agree with the contents. The patient remains a candidate to continue TMS treatment per protocol. Assessment and Plan (1) Major depressive disorder, recurrent severe without psychotic features: Status: Acute Plan cont plan of care
--- NOTE | 2024-01-21 23:30 | P.PNPS_ITS ---
TMS Daily Progress Note Daily TMS Progress Note Date of Service: 12/31/23 Week #: 6 Treatment #(-30): 28 PHQ-9 Pre-Treatment (-): 16 PHQ-9 Most Recent (07-04): 9 POONAM-7 Pre-Treatment (0-21): 15 POONAM-7 Most Recent (0-21): 15 Reviewed: TMS Tech Note Reviewed Verification: I have reviewed the TMS Slitter Cut Off Operator Note and agree with the contents. The patient remains a candidate to continue TMS treatment per protocol.
--- NOTE | 2024-01-21 23:31 | HO.TMSDAILY2 ---
TMS Daily Progress Note Daily TMS Progress Note Date of Service: 01/01/24 Week #: 6 Treatment #(-30): 29 PHQ-9 Pre-Treatment (-): 16 PHQ-9 Most Recent (07-04): 5 POONAM-7 Pre-Treatment (0-21): 15 POONAM-7 Most Recent (0-21): 15 Reviewed: TMS Tech Note Reviewed Verification: I have reviewed the TMS Teletype Technician Note and agree with the contents. The patient remains a candidate to continue TMS treatment per protocol. Assessment and Plan (1) Major depressive disorder, recurrent severe without psychotic features: Status: Acute Plan cont plan of care shows clear improvement
--- NOTE | 2024-01-21 23:33 | HO.TMSDAILY2 ---
TMS Daily Progress Note Daily TMS Progress Note Date of Service: 01/04/24 Week #: 6 Treatment #(-30): 30 PHQ-9 Pre-Treatment (-): 16 PHQ-9 Most Recent (07-04): 5 POONAM-7 Pre-Treatment (0-21): 15 POONAM-7 Most Recent (0-21): 15 Reviewed: TMS Tech Note Reviewed Verification: I have reviewed the TMS Manager Report Note and agree with the contents. The patient remains a candidate to continue TMS treatment per protocol. Assessment and Plan (1) Major depressive disorder, recurrent severe without psychotic features: Status: Acute Plan cont plan of care shows clear improvement
--- NOTE | 2024-01-21 23:35 | HO.TMSDAILY2 ---
TMS Daily Progress Note Daily TMS Progress Note Date of Service: 01/06/24 Week #: 7 Treatment #(-30): 31 PHQ-9 Pre-Treatment (-): 16 PHQ-9 Most Recent (07-04): 5 POONAM-7 Pre-Treatment (0-21): 15 POONAM-7 Most Recent (0-21): 15 Reviewed: TMS Tech Note Reviewed Verification: I have reviewed the TMS Leaflet Or Newspaper Deliverer Note and agree with the contents. The patient remains a candidate to continue TMS treatment per protocol.
== END 2024-01-20 12:50 | disposition home or self-care (01) ==
LOC: HO.PTMS 14:30
PROVIDERS: Visit Provider Psychiatry & Neurology Psychiatry
DX: F33.2 Major depressive disorder, recurrent severe without psychotic features (principal)
CPT/HCPCS: 90867; 90868; 99213

== ENCOUNTER 2024-02-16 13:53 | Outpatient (AMB) | payer MEDICARE, MEDICAID, SELFPAY ==
--- NOTE | 2024-02-16 14:35 | MHC.OFFVISPS ---
Intake Intake Visit Reasons: depression Allergies risperidone [From Risperdal] Allergy (Intermediate, Verified 11/04/23 12:53) UNKNOWN Sulfa (Sulfonamide Antibiotics) Allergy (Intermediate, Verified 11/04/23 12:53) rash From BENADRYL Allergy (Intermediate, Uncoded 11/04/23 12:53) DIZZY Medication List - Last Reconciled 03/29/24 by Broderick Willett MD donepezil 10 mg PO BEDTIME 30 days folic acid 1 mg PO DAILY ibuprofen 200 mg PO Q6H PRN lorazepam 0.5 mg PO BID 30 days melatonin 5 mg PO BEDTIME memantine 10 mg PO BID 90 days mirtazapine 30 mg PO BEDTIME 30 days propranolol 10 mg See Protocol PO TID 90 days quetiapine 50 mg PO BEDTIME 30 days Rexulti (brexpiprazole) 1 mg PO DAILY 30 days NS Rexulti (brexpiprazole) 0.5 mg PO DAILY 30 days NS thiamine mononitrate (vit B1) 100 mg PO BID trazodone 50 mg PO BEDTIME PRN 90 days vortioxetine (Trintellix) 20 mg PO DAILY@1730 90 days HPI- Psychiatric Chief Complaint: depression Intake Note: Patient seen with her HPI Narrative: Patient seen with her . Patient has generally doing well she and her have been getting along in a significant manner and having the home-based help has been quite effective. The patient denies any abnormal movements that she has noticed she remains on Rexulti Trintellix mirtazapine with good effect no psychotic breakthroughs no severe depressions with loss of appetite sleep generally okay Past Psychiatric History: Patient with long history of recurrent depression with multiple prior psychiatric hospitalizations. 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 no classic bipolar symptoms past depressive psychotic episodes not for a number of years Mental Status Exam Mental Status Exam Narrative: Mental Status Exam Narrative: Appearance: Casually dressed Behavior: Cooperative appropriate psychomotor: Within normal limits Speech: Normal volume and prosody Thought proccess logical and goal-directed Thought content: Future oriented no self-harming thoughts Mood:ok some anxiety Affect: Appropriate to mood full affect SI:denies HI:denies VH/AH:none Delusions: None Insight/judgment: Good insight and judgment Memory/cog: Intact Assessment and Plan Assessment & Plan (1) Major depression, recurrent, full remission: Status: Acute Code(s): F33.42 - Major depressive disorder, recurrent, in full remission (2) POONAM (generalized anxiety disorder): Status: Acute Code(s): F41.1 - Generalized anxiety disorder Plan Encouraged daily walking increase activity. Patient doing significantly better since she and her are significantly getting along and she has had home-based services which appears to be a quite significant help PHQ-9 not elevated no evidence of cycling sleep and appetite okay no new medical concerns noted by patient no evidence of orofacial dyskinesia or other abnormal movement on exam Discussed need to maintain medical care including treatment for osteoporosis Otherwise continue current plan of care Counseling and coordination of Care Pt. Self Management counseling: Exercise, Light exposure and Behavior activation Details-Self Mgmt counseling: Encouraged daily walk and other where he has to increase activation Medication management counseling: Effectiveness, Side effects and Dosing range Diagnosis and Prognosis Counseling: Impact of family relationship and Adequacy of current interventions Details: I spent [43] minutes reviewing the record, seeing the patient and documenting in the medical record. Counseling provided to the patient/caregiver as outlined below. Addressed patient/caregiver concerns regarding current medication regime including effective adherence. Addressed patient/caregiver concerns regarding diagnosis and prognosis including accuracy of diagnosis, prognosis over time, impact of diagnosis. Addressed patient/caregiver concerns regarding impact of recent stressors. [facility] Medical History (Updated 01/06/24 @ 11:18 by Broderick Willett MD) Dementia Nocturnal hypoxia Severe recurrent major depression w/psychotic features, mood-congruent Has daytime drowsiness Preoperative examination Elevated glucose Screening for colon cancer Screening for diabetes mellitus Obesity (BMI 30-39.9) Confused but orients easily Depression, major, severe recurrence Abnormal serum protein electrophoresis Mild recurrent major depression Anxiety and depression Encounter for Medicare annual wellness exam Removal of nell Depression with anxiety Abdominal distention Weight gain Major depression, recurrent, full remission POONAM (generalized anxiety disorder) Hypothyroidism Hyperparathyroidism Multinodular thyroid Vitamin D deficiency Osteoporosis Surgical History Hx of colonoscopy Hx of kyphoplasty Hx of section Family History Father Myocardial infarction CVD (cardiovascular disease) Mother Dementia Alzheimer disease Other Mental health disorder Social History Household Members: Spouse Housing: Apartment Do you presently have visiting nurse or other home services: No Alcohol intake: never Comment: 1:1 sitter at bedside Patient Tobacco Use Status: Never used Tobacco e-Cigarette/Vaping Use: Never Used Second Hand Smoke Exposure: No service: No Current occupational status: unemployed Sexual orientation: Straight/Heterosexual Cognitive needs: No Hearing needs: No Social History: Patient disabled has 1 son. Chronic anxiety has an intermittent difficult relationship with her mostly has not worked Substance History: Denies Trauma History: None noted Coding Level of Care Code Est Pt Level 3 (26516) Therapy 30m w/E&M (32288) Diagnoses Major depression, recurrent, full remission F33.42 POONAM (generalized anxiety disorder) F41.1
== END 2024-02-16 14:43 | disposition home or self-care (01) ==
LOC: HO.HOP 13:53
PROVIDERS: PCP Internal Medicine; Visit Provider Psychiatry & Neurology Psychiatry
DX: F33.42 Major depressive disorder, recurrent, in full remission (principal); F41.1 Generalized anxiety disorder
CPT/HCPCS: 90833; 99213

== ENCOUNTER → 2024-02-16 13:53 | Outpatient (BNVA) | payer MEDICARE, SELFPAY | PROVIDERS: PCP Internal Medicine; Visit Provider Psychiatry & Neurology Psychiatry | DX: F33.42 Major depressive disorder, recurrent, in full remission (principal); F41.1 Generalized anxiety disorder | CPT/HCPCS: 99212 ==

== ENCOUNTER 2024-05-25 09:43 | Outpatient (AMB) | payer MEDICARE, SELFPAY ==
--- OUTSIDE RECORDS SUMMARY | 2024-05-25 09:45 | XMS_ITS | Continuity of Care Document ---
Author Organization [employer] [facility] Address [address] [address] Phone Care Team Providers Care Reporting Specialist Name Role Phone Ananda TREE KILLER Liss Unavailable Unavailab le Allergies, Adverse Reactions, Alerts Substance Reaction Status Criticality risperidone Active No Information Sulfa (Sulfonamide Antibiotics) Rash Active No Information DIPHENHYDRAMINE HCL Dizziness Active Unable t o Assess Medications Medication Instructions Dosage Effective Dates (start - stop) Status Comments donepezil 10 mg tablet Take 1 tablet by mouth once daily at bedtime. - Active Per pre-enrollment, script per Dr. Willett (psychiatry). atorvastatin 20 mg tablet Take 1 tablet by mouth once daily at night. - Active Shingrix (PF) 50 mcg/0.5 mL intramuscular suspension, kit Inject 0.5 milliliter by intramuscular route once, then repeat in 2-6 months. - Active trazodone 50 mg tablet Take 1 tablet by mouth once daily at bedtime for sleep. - Active Per pre-enrollment, script per Dr. Willett (psychiatry). lidocaine 4 % topical patch Apply 1 patch topically NEEDED, leave on for 12 hours and off for 12 hours. - Active 02/17/24: Per pre-enrollment. folic acid 1 mg tablet Take 1 tablet by mouth once daily. - Active Per pre-enrollment. lorazepam 0.5 mg tablet Take 1 tablet by mouth twice daily as needed for anxiety. - Active Per pre-enrollment, script per Dr. Willett (psychiatry). Last filled 01/18/24 per [employer], for quantity 60 (30 day supply if used BID). melatonin 5 mg tablet Take 1 tablet by mouth once daily at bedtime. - Active Per pre-enrollment, Dr. Willett (psychiatry). memantine 10 mg tablet Take 1 tablet by mouth twice daily. - Active Per pre-enrollment, script per Dr. Willett (psychiatry). mirtazapine 30 mg tablet Take 1 tablet by mouth once daily at bedtime. - Active Per pre-enrollment, script per Dr. Willett (psychiatry). propranolol 10 mg tablet Take 1 tablet by mouth 3 times daily. - Active Per pre-enrollment, Dr. Willett (psychiatry). quetiapine 50 mg tablet Take 1 tablet by mouth once daily at bedtime. - Active Per pre-enrollment, script per Dr. Willett (psychiatry). Rexulti 0.5 mg tablet Take 1 tablet by mouth once daily. - Active Per pre-enrollment, script per Dr. Willett (psychiatry). Rexulti 1 mg tablet Take 1 tablet by mouth once daily. - Active Per pre-enrollment, script per Dr. Willett (psychiatry). Trintellix 20 mg tablet Take 1 tablet by mouth once daily at 5:30PM. - Active Per pre-enrollment, script per Dr. Willett (psychiatry). Vitamin B-1 100 mg tablet Take 1 tablet by mouth twice daily. - Active Per pre-enrollment, script per Dr. Willett (psychiatry). Procedures Procedure Date OFFICE/OUTPATIENT VISIT EST IMMUNIZATION ADMIN HZV VACC RECOMBINANT IM OFFICE/OUTPATIENT VISIT EST IMMUNIZATION ADMIN IIV NO PRSV INCREASED AG IM OFFICE/OUTPATIENT VISIT EST OT EVAL LOW COMPLEX 30 MIN PT EVAL LOW COMPLEX 20 MIN MEDICAL NUTRITION INDIV IN OFFICE/OUTPATIENT VISIT EST Advance Directives Directive Yes / No Effective Date File Name No Information Encounters Encounter Description Practice Location Reason(s) For Visit Diagnoses Date Provider Providers Copied on Encounter [facility], [address] [address], [place], [place], [id number], [place] tel:[phone] [place] No Information [address] [place], [place], [id number], [place]. tel:[phone] OFFICE/OUTPA TIENT VISIT EST [facility], [address] [address], [place], [place], [id number], [place] tel:[phone] [place] Acute Visit (chief complaint) Genitourinary syndrome of menopause [address] [place], [place], [id number], [place]. tel:[phone] [facility], [address] [address], [place], [place], [id number], [place] tel:[phone] [place] No Information [address] [place], [place], [id number], [place]. tel:[phone] OFFICE/OUTPA TIENT VISIT EST [facility], [address] [address], [place], [place], [id number], [place] tel:[phone] [place] Follow-up (chief complaint) Shortness of breathRecurre nt major depressive disorder, in partial remissionGAD (generalized anxiety disorder)Inso mnia, unspecified type [address] [place], [place], [id number], [place]. tel:[phone] OFFICE/OUTPA TIENT VISIT EST [facility], [address] [address], [place], [place], [id number], [place] tel:[phone] [place] Follow-up (chief complaint) Mixed hyperlipidemi aOsteoporosis without current pathological fracture, unspecified osteoporosis typeAdvanced directives, counseling/di scussion [address], [place], [place], [id number], [place]. tel:[phone] [facility], [address], [place], [place], [id number], [place] tel:[phone] [place] Other specified personal risk factors, not elsewhere classifiedUns pecified visual disturbance Sep- 4 [address], [place], [place], [id number], [place]. tel:[phone] [facility], [address], [place], [place], [id number], [place] tel:[phone] [place] No Information Sep-1 [address], [place], [place], [id number], [place]. tel:[phone] [facility], [address] [facility] [address] [facility], [place], [place], [id number], [place] tel:[phone] [place] [address] No Information Sep-1 [address] [place], [place], [id number], [place]. tel:[phone] [facility], [address] [facility], [place], [place], [id number], [place] tel:[phone] [place] Major depressive disorder, recurrent, in partial remission Sep-1 [address], [place], [place], [id number], [place]. tel:[phone] [facility], [address] [facility], [place], [place], [id number], [place] tel:[phone] [place] Encounter for rehabilitatio n evaluation Sep-0 4 Javier Mak[address]. [address], [place], [place], [id number], [place]. tel:[phone] [facility], [address] [facility], [place], [place], [id number], [place] tel:[phone] [place] Encounter for rehabilitatio n evaluation Sep-0 4 Gerardo Steve[address], [place], [address]. tel:[phone] [facility], [address] [address], [place], [place], [id number], [place] tel:[phone] [place] Encounter for nutritional assessmentCla ss 1 obesity with serious comorbidity and body mass index (BMI) of 32.0 to 32.9 in adult, unspecified obesity typeBody mass index [BMI] 32.0-32.9, adult Sep-0 4 [address] [place], [place], [id number], [place]. tel:[phone] OFFICE/OUTPA TIENT VISIT EST [facility], [address] [address], [place], [place], [id number], [place] tel:[phone] [place] Post Enrollment Evaluation (chief complaint) History of mammogramStag e 3a chronic kidney diseasePredia betesRecurren t major depressive disorder, in partial remissionHypo thyroidism, unspecified typeVitamin D deficiencyHyp erparathyroid ismHistory of UTIGAD (generalized anxiety disorder)Mixe d hyperlipidemi aObesity, Class I, BMI 30.0-34.9 (see actual BMI)BMI 32.0-32.9,dave ltLumbar spondylosisMi ld dementia with other behavioral disturbance, unspecified dementia typeOsteoporo sis without current pathological fracture, unspecified osteoporosis type Sep-0 4 [address], [id number], [place]. tel:[phone] [facility], [address] [address], [place], [place], [id number], [place] tel:[phone] [place] No Information Sep-0 4 Norm[address] [place], [place], [id number], [place]. tel:[phone] Family History Family Member Type Diagnosis Age At Onset No Information Immunizations Vaccine Date Status Comments Zoster recombinant subunit administered S ource: New Immunization Record Fluzone High Dose administered So urce: New Immunization Record PCV20 administered Source: Other R egistry COVID-19 Pfizer 12+ administered Source: Other Registry COVID-19 Pfizer administered Source: [place] [facility] Tdap administered Source: Other R egistry COVID-19 Pfizer administered Source: [place] [facility] COVID-19 Pfizer administered Source: [place] [facility] Payers Payer name Insurance type Covered constitution party ID Tremaine stokes(s) [employer] 16 [id number] [employer] 16 [id number] [employer] 16 [id number] Social History Type Description Quantity Date Captured Comments Sex Female Smoking Status No Information Chief Complaint And Reason For Visit No Information Reason For Referral Reason For Referral No Information Plan Of Treatment Date Type Action Status Referral Ordered: Dentistry (related to Need for dental care) ordered Referral Ordered: Bracelet Former (related to Visual changes) ordered Referral Ordered: Referrals: Dentistry. Evaluate and treat ordered Referral Ordered: Referrals: Bracelet Former. Evaluate and treat ordered Referral Referred To: Dr. Willett Ordered: Referrals: Psychiatry. Dr. Willett Appointment date/timeframe: 02/16/2024 ordered Appointment Judy Rodrigues BOOKED Future Order: Lab Order Urinalys is, Macroscopic ([id number]), Ordered on: Ordered History Of Present Illness Encounter Date Complaint History Of Prese nt Illness Acute Visit Judy is a 73 ye ar old female who is seen today for an acute visit.Judy reported to nursing on 05/09/24 that she is having vulvovaginal pruritus. She reports this has been more than 2 weeks. No discharge. She says she uses a Dove soap all the time' to wash down there. She takes showers. No bath. She is having pain and chills when she urinates. On exam, there is no vulvar discharge, erythema, excoriation. It is notably dry. We obtained a urine dip in the office showing 3+ leuks but otherwise reassuring. Urine will be sent for formal UA with reflex culture. I counseled her to avoid using any Dove soap for daily cleaning of the vulvovaginal area as it can cause worsening dryness, irritation, and removal of any beneficial genital pérez. Follow-up Judy is a 73 ye ar old female who is seen today for a 60-day post-enrollment follow up. She enrolled in our program as of February 2024 and was last seen by myself in early March. She is accompanied today by her .Judy and her have no specific concerns today. She received her new medication, the atorvastatin, after our last visit and is tolerating it well without any significant side effects.She is having no pain including chest or abdominal pain. She has mild intermittent shortness of breath on exertion. She is somewhat deconditioned due to lack of activity for some time. Encouraged her to do light weight-bearing activity as tolerated but to report if symptoms worsen with this. She and her have noticed a worsening left leg tick that has become more frequent. This has happened before and Dr. Willett, her psychiatrist, will sometimes adjust medications to help with it and it has reportedly been felt to be related to her psychiatric medications. They have follow up with him next week 04/21. We will request records again as we still do not have them. Lastly, Judy is having some trouble sleeping still at night. It has been felt to be related to her psychiatric illness/medications and they plan to talk to Dr. Willett about it. We also discussed possible relation to undiagnosed sleep apnea as has been suggested in her pre-enrollment medical records that I reviewed. Discussed that we could repeat sleep study, likely a home sleep study in the future to help determine if this is a problem for her. They will think about it and we will talk again at the next visit about it. Follow-up Judy is a 73 ye ar old female who is seen today for a post-enrollment 30 day follow up. She is accompanied by her . Overall Judy is doing well today and has no concerns. Her 's blood sugar was low in the office; he was given a snack and was doing well before leaving. He expressed wishing he could be part of the program as well but he did not qualify. Hyperlipidemia: Judy's lipid panel last month came back showing an elevated LDL of 131. We discussed the meaning and importance of this findings. He believes she has been told before that her cholesterol is high but he doesn't think she has ever been on medication for it. It is possible some of her medications are playing a role in this as well. She and her are agreeable to starting a statin. I will send for atorvastatin 20mg daily. We will recheck lipids in about 3 months.Osteoporosis: Judy has a history of osteoporosis listed in her pre-enrollment records and per her report. Her last DEXA appears to have been in 2021. Ordered a repeat. Her recent labs showed normal Vit D/Ca; will hold off on prescribing a supplement until we have a repeat DEXA. Encouraged weight bearing activity as tolerated.Advanced directives: We discussed the meaning and importance of a MOLST form today. We discussed each question on the form and completed the form together. Her acknowledged he himself does not have a MOLST; he was given a blank copy to discuss with his own provider. A copy was made and the original was sent with Judy and her family. Post Enrollment Evaluation Judy is a 73-year-old female who presents today for a post-enrollment exam. She is accompanied by her (Rahul). Judy enrolled in the [facility] program as of 02/07/24. Prior to this, she was following with Dr. Brittany Milan as her PCP. Allergies: Benadryl; gets dizzy. No anaphylaxis. She has never been advised to carry an Epi pen. Discussed that this is likely not a true allergy. Immunizations: PCV, Tdap UTD. She will get her seasonal flu vaccine this season and is also due for a shingles series; ordered today.History of ER visits/Falls/SNF/Hospitalizations:-05/25/23 -06/14/23: Inpatient at [facility]. No other hospitalizations, ER visits since then. -Before COVID, was on 5th floor x 1.5 years at [place] on their psychiatric unit. Then was for a few months on 1st floor in a unit x few months for psychiatric concerns. Specialists:-Dr. Fausto Willett at [facility]. Seeing him tomorrow. He is a psychiatrist. Has been with him for 20 years. I only have inpatient notes from him from her last hospitalizations. She also sees him outpatient. I have sent a request to the office to try to obtain records. -No other specialists. Advanced directives:-HCP on file dated 08/07/2023 indicating her primary HCP is Boris Rodrigues (spouse and secondary is Cristela Rodrigues (son). HCP not invoked as far as patient and spouse are aware.-MOLST: No MOLST on file at this time. Briefly discussed with plan to complete form at E follow up visit in 1 month. Social: Judy lives in the community in [place] with her , just the 2 of them. They have always lived in the area. They have family in [place] and [place]. Herve has a son and daughter from a previous relationship and they also have one son together. No alcohol or smoking now or in the past. Mammogram: Per pre-enrollment documents, last performed 05/22/2022 with results stating, major james breasts are extremely dense, which lowers the sensitivity of mammography . No significant abnormalities seen. Will discuss at follow up visit if she would like to continue these screenings. Colonoscopy: Judy and her are unsure when her last colonoscopy was; they think possibly 1 year ago at [facility]. Bone density: Unclear when her last DEXA was. Not seen in pre-enrollment records from [facility]. Osteoporosis listed in her problem list with unclear treatment history. DEXA ordered. Diet: No specific diet. She reports she is eating well. Mobility: Walks independently. She says her last fall was in the hospital in late 2022/early 2023.Dental: Judy has upper dentures. They are very old and not fitting well. She has some teeth left on the bottom. She would like to see a dentist. I have entered a referral. Hearing: No concerns. No hearing aids. Vision: Uses glasses for reading only, working okay. She would a routine eye exam. Referral has been entered. Skin: No concerns. No history of wounds.Sleep: Judy reports difficulty sleeping; sometimes sleeps well and other times she is not able to sleep at all. She says her psychiatrist helps with this and adjusts her medications as needed. She is seeing him tomorrow. Functional Status Date Functional Assessmen t No Information Instructions Date Instruction Additional Tiana harris -2 weeks of worsenin g vulvovaginal itching, pain, pain with urination. Judy has been cleaning the area with Dove soap daily for a long time . Exam reveals dryness but otherwise unremarkable. -Advised against daily cleaning with soap. Water only. -Urine dip shows + leuks, otherwise reassuring, will send for formal UA reflex cx. -If she continues to have dryness, itching, pain will trial vaginal moisturizer or vagina estrogen. Related to Genitourinary syndrome of menopause -Continued difficult y sleeping of unknown etiology. -Per pre-enrollment (01/31/22 page 23) states ???indeed the patient may have some underlying untreated sleep apnea. Likely, that the home sleep study was not adequate enough to make a diagnosis???. It was recommended by pulmonary inpatient that she use oxygen overnight given hypoxia however patient declined. It was mentioned that she should have another sleep study outpatient. -04/11/24: Discussed this history with patient and family which they do recall. They are unsure if Judy snores as they sleep in separate parts of the house. Her will try to take note if she snores. They feels her difficulty sleeping is r/t her psychiatric medications which is possible however the history in the [facility] records suggests possible FARNAZ. Will explore possibility of repeat sleep study over the next couple of visits. Related to Insomnia, unspecified type -Per pre-enrollment (01/31/22 page 24) described as generalized anxiety disorder. She has a complicated psychiatric history and follows closely with her psychiatrist Dr. Willett. Per pre-enrollment, has been treated in the past with ECT, Trintellix, Doxepin, Caplyta. Admitted in early 2023 to [facility] with ???anxiety, racing thoughts, insomnia???. Underwent ECT while there. She was then transferred to medical service for medical concerns after refusing her medications for several days.-She reports more recent treatment with TMS, supposed to be every 6 months, finished around January 2024.-Continue following with Dr. Willett given complex psychiatric history. Next appt scheduled for 04/21 per patient. KENDALL assisted with signing of new release today to try to obtain outpatient records from Dr. Willett's office. -Continue PRN lorazepam, mirtazapine 30mg daily, Seroquel 50mg at bedtime, trazodone 50mg at bedtime, Trintellix 20mg daily.-Baseline ECG ordered today as she is at risk for QT prolongation with her medications. -Encouraged her to report new or worsening symptoms so that we can facilitate timely treatment and follow up with psychiatry or an alternative plan. Related to POONAM (generalized anxiety disorder) -Per pre-enrollment (01/31/22 page 16) described as MDD, recurrent severe without psychotic features. Per pre-enrollment, has been treated in the past with ECT, Trintellix, Doxepin, Caplyta. Admitted in early 2023 to [place] with ???anxiety, racing thoughts, insomnia???. Underwent ECT while there. She was then transferred to medical service for medical concerns after refusing her medications for several days. -Says she got ECT 3x/week for months. Don't want to do anymore due to age. She feels mood is stable, feels anxious ???not every day???. No SI/HI; no history of SI. -She reports more recent treatment with TMS, supposed to be every 6 months, finished around January.-Continue following with Dr. Willett given complex psychiatric history. Next appt scheduled for 04/21 per patient. KENDALL assisted with having them sign another release today to obtain outpatient records by Dr. Willett. -Continue PRN lorazepam, mirtazapine 30mg daily, Seroquel 50mg at bedtime, trazodone 50mg at bedtime, Trintellix 20mg daily.-Baseline ECG ordered today as she is at risk for QT prolongation with her medications. Related to Recurrent major depressive disorder, in partial remission -Per spouse, intermi ttent shortness of breath mostly with activity. She is overall deconditioned, limited physical activity. -LSCTAB, not short of breath in the office.-ECG ordered to obtain baseline. Related to Shortness of breath -Reviewed importance and meaning of MOLST form. Completed together, signed by patient and myself. Copy made, original given to patient/spouse. Will scan in. Advanced directives form updated. Related to Advanced directives, counseling/discussion -Per pre-enrollment (01/31/22 page 24), on problem list and patient reports this history as well. -Fractures when younger and not noted as fragility fractures. Doesn't appear to be currently receiving treatment. She believes she had an IV infusion a long time ago. We have limited records. -She is on some medications that increase her risk for fragility fractures including Trintellix.-Not on Vit D/Ca; she is willing to start on something if needed however labs done today show levels are WNL. -Unclear to me when her last DEXA scan was. Order placed for updated DEXA; once results are received we will determine next steps. She and her are agreeable to this. Related to Osteoporosis without current pathological fracture, unspecified osteoporosis type -02/2024 TC 224, HDL 67, LDL 131, TG 151 (non-fasting).-HLD not listed on pre-enrollment records. She is on some psychiatric medications that increase her risk of HLD including Seroquel, Rexulti. her believes she has been told before that her cholesterol is high but says she has never been on medication because of it. They are agreeable to starting one.-Start atorvastatin 20mg once daily in the evening. -Recheck labs in 3 months. Related to Mixed hyperlipidemia -Per pre-enrollment (01/31/22 page 24), on problem list and patient reports this history as well. -Fractures when younger and not noted as fragility fractures. Doesn't appear to be currently receiving treatment. She believes she had an IV infusion a long time ago. We have limited records. -She is on some medications that increase her risk for fragility fractures including Trintellix.-Not on Vit D/Ca; she is willing to start on something if needed however labs done today show levels are WNL. -Unclear to me when her last DEXA scan was. Order placed for updated DEXA; once results are received we will determine next steps. Related to Osteoporosis without current pathological fracture, unspecified osteoporosis type -Per pre-enrollment (01/31/22 page 38) states ???dementia??? as a discharge diagnosis and further in the record (page 44) states ???mild vascular dementia??? however I do not have access to any imaging to support cause of this. Records have been requested from Dr. Willett's office. Significant psychiatric history with behaviors documented in pre-enrollment documents including intermittent agitation, refusal of medications and care, disrobing. Behaviors well managed at present per patient and per spouse. Last inpatient psychiatric stay was early 2023. -HCP is not currently invoked but will likely need to be at some point.-Continue donepezil 10mg daily, memantine 10mg twice daily, as well as trazodone, melatonin, and Seroquel at bedtime. Judy will continue to follow closely with her psychiatrist given her complex history. 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 Lumbar spine xray 07/2023 in pre-enrollment records states there is loss of L2 vertebral height with remote cement augmentation, loss of L1, T12 and T11 vertebral heights, likely old. -Patient reports a ???surgery or procedure??? years ago, not sure exactly what it was however suspect it was a vertebral augmentation based on the imaging results above. -Mild intermittent back pain, takes Tylenol occasionally. No radiation or paresthesias. -Encouraged her to report new or worsening symptoms. Report all falls. Related to Lumbar spondylosis -Per pre-enrollment (01/31/22 pg 30).-BMI 32.2 today. -Several comorbidities including HLD, pre-diabetes, on multiple psychiatric medications, hypothyroidism. -Routine screening labs. Periodic weights. Rn Infusion to see her for screening and counseling if indicated. Related to BMI 32.0-32.9,adult -Per pre-enrollment (01/31/22 pg 30).-BMI 32.2 today. -Routine screening labs. Periodic weights. Rn Infusion to see her for screening and counseling if indicated. Related to Obesity, Class I, BMI 30.0-34.9 (see actual BMI) -02/2024 TC 224, HDL 67, LDL 131, TG 151 (non-fasting).-She is not currently on a statin. Unclear if she was ever on one. HLD not listed on pre-enrollment records. She is on some psychiatric medications that increase her risk of HLD including Seroquel, Rexulti.-Will discuss at follow up visit if patient and family would like to start a statin. Related to Mixed hyperlipidemia -Per pre-enrollment (01/31/22 page 24) described as generalized anxiety disorder. She has a complicated psychiatric history and follows closely with her psychiatrist Dr. Willett. Per pre-enrollment, has been treated in the past with ECT, Trintellix, Doxepin, Caplyta. Admitted in early 2023 to [place] with ???anxiety, racing thoughts, insomnia???. Underwent ECT while there. She was then transferred to medical service for medical concerns after refusing her medications for several days.-She reports more recent treatment with TMS, supposed to be every 6 months, finished 1 month ago. She has follow up with her psychiatrist Dr. Willett tomorrow. We will request records. -Continue following with Dr. Willett given complex psychiatric history. -Continue PRN lorazepam, mirtazapine 30mg daily, Seroquel 50mg at bedtime, trazodone 50mg at bedtime, Trintellix 20mg daily.-Encouraged her to report new or worsening symptoms so that we can facilitate timely treatment and follow up with psychiatry or an alternative plan. Related to POONAM (generalized anxiety disorder) -At [facility] appt, jinny t and spouse report she had a UTI not too long ago and it was ???very bad??? per pt/spouse. They say she was treated with antibiotics and improved. She has no symptoms now aside from urinary incontinence overnight which has been going on for some time. Related to History of UTI -Per pre-enrollment (01/31/22 page 24), noted in problem list. Unclear if primary versus secondary. She did have parathyroid imaging in 03/2019 ([facility]) with results stating There is homogeneous uptake within the thyroid gland. There is symmetric washout within the neck with no residual focus of radiotracer activity to suggest the location of a parathyroid adenoma. No substernal or mediastinal abnormal activity identified. Negative study for localization of the etiology of hyperparathyroidism .-She has co-existing CKD3A on labs today. PTH 02/15/24 at 59, Ca 9.5. -Continue routine labs. Consider [facility] consult as needed for treatment recommendations. Related to Hyperparathyroidism -Per pre-enrollment (01/31/22 page 24), noted in problem list. -Goal Vitamin D level >30. -02/2024 Vit D 47.-She is not currently on any supplementation, and given her level is over 30 there would be limited benefit to starting one right now. Will continue routine labs. Related to Vitamin D deficiency -Per pre-enrollment (01/31/22 page 24), history of hypothyroidism on problem list. Unclear etiology. -04/11/22 TSH 2.65.-I do not see that she is on levothyroxine. Unclear if she was ever on it in the past.-Labs done today show TSH 3.15.-Continue routine thyroid labs every 6-12 months or sooner for symptoms. Related to Hypothyroidism, unspecified type -Per pre-enrollment (01/31/22 page 16) described as MDD, recurrent severe without psychotic features. Per pre-enrollment, has been treated in the past with ECT, Trintellix, Doxepin, Caplyta. Admitted in early 2023 to [facility] with ???anxiety, racing thoughts, insomnia???. Underwent ECT while there. She was then transferred to medical service for medical concerns after refusing her medications for several days. -Says she got ECT 3x/week for months. Don't want to do anymore due to age. She feels mood is stable, feels anxious ???not every day???. No SI/HI; no history of SI. -She reports more recent treatment with TMS, supposed to be every 6 months, finished 1 month ago. She has follow up with her psychiatrist Dr. Willett tomorrow. We will request records. -Continue following with Dr. Willett given complex psychiatric history. -Continue PRN lorazepam, mirtazapine 30mg daily, Seroquel 50mg at bedtime, trazodone 50mg at bedtime, Trintellix 20mg daily. Related to Recurrent major depressive disorder, in partial remission -Per pre-enrollment (01/31/22 page 3); labs show HbA1c 5.7%. Never been diagnosed with diabetes.-Labs done today showing HbA1c 6.1%, glucose 80 (non-fasting).-Continue routine screening. Lifestyle management. Related to Prediabetes -Per pre-enrollment (01/31/22 page 2); labs show eGFR 54, creatinine 1.01. 04/11/22 eGFR 49, creatinine 1.11. 11/2022 eGFR 46, creatinine 1.17. -Labs done today showing eGFR 58, creatinine 1.02. -Avoid nephrotoxins, encourage hydrations, BP management. Related to Stage 3a chronic kidney disease -Per pre-enrollment, last performed 05/22/2022 with results stating ???the breasts are extremely dense, with lowers the sensitivity of mammography???. No significant abnormalities seen. Related to History of mammogram Assessments Type Assessment Date No Information Goals Health Concern Goal Type Priority Status Date Judy is at risk for hospitalization related to depression, mental health issues Judy will remain living safely in the community through the next review and not be admitted to hospital Patient Goal Judy has depression and anxiety. Judy will identify coping strategies, and utilize these strategies during increased feelings of depression and anxiety. Patient Goal Judy is at risk for skin breakdown related to incontinence Skin will remain free from breakdown for 6 months. Patient Goal New Patient Care Teams Name Effective Dates (start - stop) Status Members No Information
--- NOTE | 2024-05-25 10:25 | MHC.OFFVISPS ---
Intake Intake Visit Reasons: depression Allergies risperidone [From Risperdal] Allergy (Intermediate, Verified 11/04/23 12:53) UNKNOWN Sulfa (Sulfonamide Antibiotics) Allergy (Intermediate, Verified 11/04/23 12:53) rash From BENADRYL Allergy (Intermediate, Uncoded 11/04/23 12:53) DIZZY HPI- Psychiatric Chief Complaint: depression HPI Narrative: The patient's PHQ-9 and poonam 7 are unremarkable. She is seen with her . She is noted to be somewhat more slowed moving and there is restlessness consistent with akathisia. She does can tend to get depressed in the winter Past Psychiatric History: Patient with long history of recurrent depression with multiple prior psychiatric hospitalizations. 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 no classic bipolar symptoms past depressive psychotic episodes not for a number of years Mental Status Exam Mental Status Exam Narrative: Mental Status Exam Narrative: Appearance: Casually dressed flat looking Behavior: Cooperative appropriate psychomotor: Needing to move her legs no oral facial dyskinesia Speech: Soft l volume and prosody Thought proccess logical and goal-directed some poverty of content Thought content: Future oriented focused on treatment and sleep Mood: Flat dysphoric Affect: Constricted SI:denies HI:denies VH/AH:none Delusions: None Insight/judgment: Some limits in relationship to self-care staying off the couch daily walking some ability to maintain better self-care Memory/cog: Intact Assessment and Plan Assessment & Plan (1) POONAM (generalized anxiety disorder): Status: Acute Code(s): F41.1 - Generalized anxiety disorder (2) Major depressive disorder, recurrent episode: Status: Acute Code(s): F33.9 - Major depressive disorder, recurrent, unspecified Plan Stop Rexulti secondary to continued akathisia blunted affect might benefit from modafinil off label for seasonal depressive symptoms at low dose she has had subsequent journal mixed states in the past look out for that. Has been on Trintellix consider augmentation Wellbutrin but has been mirtazapine. Patient has been on Vraylar Caplyta in the past has had ECT previously not psychotic no hallucinations no delusional material Medications: Discontinued Rexulti Discontinued Reason: Doctor's Order 1 mg PO DAILY 30 days 30 tabs 3RF NS Counseling and coordination of Care Pt. Self Management counseling: Sleep hygiene and Behavior activation Details-Self Mgmt counseling: Discussed issues related to not lying on the couch all day getting some light exposure doing daily walk trying to regulate sleep-wake cycle melatonin at bedtime did also discuss possibility of sleep study Medication management counseling: Effectiveness and Side effects Details-Med Mgmt counseling: Patient does have VNA and outreach services Diagnosis and Prognosis Counseling: Problematic behaviors secondary to diagnosis and Adequacy of current interventions Details: I spent [30] minutes reviewing the record, seeing the patient and documenting in the medical record. Counseling provided to the patient/caregiver as outlined below. Addressed patient/caregiver concerns regarding current medication regime including effective adherence. Addressed patient/caregiver concerns regarding diagnosis and prognosis including accuracy of diagnosis, prognosis over time, impact of diagnosis. Addressed patient/caregiver concerns regarding impact of recent stressors. [facility] Medical History (Updated 06/19/24 @ 19:58 by Broderick Willett MD) Dementia Nocturnal hypoxia Severe recurrent major depression w/psychotic features, mood-congruent Has daytime drowsiness Preoperative examination Elevated glucose Screening for colon cancer Screening for diabetes mellitus Obesity (BMI 30-39.9) Confused but orients easily Depression, major, severe recurrence Abnormal serum protein electrophoresis Mild recurrent major depression Anxiety and depression Encounter for Medicare annual wellness exam Removal of nell Depression with anxiety Abdominal distention Weight gain Major depression, recurrent, full remission POONAM (generalized anxiety disorder) Hypothyroidism Hyperparathyroidism Multinodular thyroid Vitamin D deficiency Osteoporosis Surgical History Hx of colonoscopy Hx of kyphoplasty Hx of section Family History Father Myocardial infarction CVD (cardiovascular disease) Mother Dementia Alzheimer disease Other Mental health disorder Social History Household Members: Spouse Housing: Apartment Do you presently have visiting nurse or other home services: No Alcohol intake: never Comment: 1:1 sitter at bedside Patient Tobacco Use Status: Never used Tobacco e-Cigarette/Vaping Use: Never Used Second Hand Smoke Exposure: No service: No Current occupational status: unemployed Sexual orientation: Straight/Heterosexual Cognitive needs: No Hearing needs: No Social History: Patient disabled has 1 son. Chronic anxiety has an intermittent difficult relationship with her mostly has not worked Substance History: Denies Trauma History: None noted Coding Level of Care Code Est Pt Level 4 (04674) Diagnoses POONAM (generalized anxiety disorder) F41.1 Major depressive disorder, recurrent episode F33.9
== END 2024-05-25 10:53 | disposition home or self-care (01) ==
LOC: HO.HOP 09:43
PROVIDERS: PCP Internal Medicine; Visit Provider Psychiatry & Neurology Psychiatry
DX: F41.1 Generalized anxiety disorder (principal); F33.9 Major depressive disorder, recurrent, unspecified
CPT/HCPCS: 99214

== ENCOUNTER → 2024-05-25 09:43 | Outpatient (BNVA) | payer MEDICARE, SELFPAY | PROVIDERS: PCP Internal Medicine; Visit Provider Psychiatry & Neurology Psychiatry | DX: F41.1 Generalized anxiety disorder (principal); F33.9 Major depressive disorder, recurrent, unspecified | CPT/HCPCS: 99212 ==

== ENCOUNTER 2024-06-03 10:07 | Outpatient (AMB) | payer MEDICARE, SELFPAY ==
--- OUTSIDE RECORDS SUMMARY | 2024-06-03 10:09 | XMS_ITS | Continuity of Care Document ---
Author Organization [employer] [facility] Address [address] [address] Phone Care Team Providers Care Veterinary Poultry Inspector Name Role Phone Ananda BYPRODUCT ENGINEER Liss Unavailable Unavailab le Allergies, Adverse Reactions, [...] Dr. Willett (psychiatry). Last filled 01/18/24 per [employer], for quantity 60 (30 day supply if [...] Yes / No Effective Date File Name IV Fluid Support Yes N/A N/A Other Directive No N/A N/A WARNING:The information contained in this section is historical and is provided for information only and does not constitute a legal document or any assurance that the information is still accurate. Please verify the information with the leos of the legal document before using it for clinical purposes. Encounters Encounter Description Practice Location Reason(s) For Visit Diagnoses Date Provider Providers Copied on Encounter [facility], [address] [address], [place], [place], [id number], tel:[phone] [place] Recurrent major depressive disorder, in partial remissionGAD (generalized anxiety disorder) [address], [place], [id number], [place]. tel:[phone] OFFICE/OUTPA TIENT VISIT [facility], [address] [address], [place], [place], [id number], [place] tel:[phone] [place] Acute Visit (chief complaint) Genitourinary syndrome of menopause May- 4 [address], [place], [id number], [place]. tel:[phone] [facility], [address] [address], [place], [place], [id number], [place] tel:[phone] [place] No Information Apr- 4 [address] [place], [place], [id number], [place]. tel:[phone] OFFICE/OUTPA TIENT VISIT EST [facility], [address] [facility], [place], [place], [id number], [place] tel:[phone] [place] Follow-up (chief complaint) Shortness of breathRecurre nt major depressive disorder, in partial remissionGAD (generalized anxiety disorder)Inso mnia, unspecified type Apr-0 [address], [place], [place], [id number], [place]. tel:[phone] OFFICE/OUTPA TIENT VISIT EST [facility], [address] [facility] [address] [facility], [place], [place], [id number], [place] tel:[phone] [place] Follow-up (chief complaint) Mixed hyperlipidemi aOsteoporosis without current pathological fracture, unspecified osteoporosis typeAdvanced directives, counseling/di scussion 7- [address] [place], [place], [id number], [place]. tel:[phone] [facility], [address] [facility], [place], [place], [id number], [place] tel:[phone] [place] Other specified personal risk factors, not elsewhere classifiedUns pecified visual disturbance Sep- 4 [address], [place], [place], [id number], [place]. tel:[phone] [facility], [address] [facility], [place], [place], [id number], [place] tel:[phone] [place] No Information Sep-06 10- 4 [address] [place], [place], [id number], [place]. tel:[phone] [facility], [address] [facility], [place], [place], [id number], [place] tel:[phone] [place] No Information Sep- 4 [address] [place], [place], [id number], [place]. tel:[phone] [facility], [address] [facility], [place], [place], [id number], [place] tel:[phone] [place] Major depressive disorder, recurrent, in partial remission Sep-1 0- 4 [address] [place], [place], [id number], [place]. tel:[phone] [facility], [address] [facility], [place], [place], [id number], [place] tel:[phone] [place] Encounter for rehabilitatio n evaluation Sep-0 4 [address]. [address] [facility] [place], [id number], [place]. tel:[phone] [facility], [address] [facility], [place], [place], [id number], [place] tel:[phone] [place] Encounter for rehabilitatio n evaluation Feb-0 4 [address] [place], [address]. tel:[phone] [facility], [address] [facility], [place], [place], [id number], [place] tel:[phone] [place] Encounter for nutritional assessmentCla ss 1 obesity with serious comorbidity and body mass index (BMI) of 32.0 to 32.9 in adult, unspecified obesity typeBody mass index [BMI] 32.0-32.9, adult Feb-0 4 [address], [place], [id number], [place]. tel:[phone] OFFICE/OUTPA TIENT VISIT EST [facility], [address] [facility], [place], [place], [id number], [place] tel:[phone] [place] Post Enrollment Evaluation (chief complaint) History of mammogramStag e 3a chronic kidney diseasePredia betesRecurren t major depressive disorder, in partial remissionHypo thyroidism, unspecified typeVitamin D deficiencyHyp erparathyroid ismHistory of UTIGAD (generalized anxiety disorder)Mixe d hyperlipidemi aObesity, Class I, BMI 30.0-34.9 (see actual BMI)BMI 32.0-32.9,dave ltLumbar spondylosisMi ld dementia with other behavioral disturbance, unspecified dementia typeOsteoporo sis without current pathological fracture, unspecified osteoporosis type Feb-0 4 [address], [place], [id number], [place]. tel:[phone] [facility], [address] [facility], [place], [place], [id number], tel:[phone] [place] No Information Frantz [address]. [address], [place], [place], [id number], . tel:[phone] Family History Family Member Type Diagnosis Age [...] Insurance type Covered constitution party ID Tremaine bluntbayron(s) [employer] 16 [id number] [employer] 16 [id number] [employer] 16 [id number] Social History Type Description Quantity Date Captured Comments Alcohol Use Details Unknown Caffeine Use Details Unknown Tobacco Use Status No Information Smoking Status No Information Sex Female Chief Complaint And Reason For Visit No Information Reason For Referral Reason For Referral No Information Plan Of Treatment Date Type Action Status Referral Ordered: Dentistry (related to Need for dental care) ordered Referral Ordered: Head Orthopedic Team Physician (related to Visual changes) ordered Referral Ordered: Referrals: Dentistry. Evaluate and treat ordered Referral Ordered: Referrals: Head Orthopedic Team Physician. Evaluate and treat ordered Referral Referred To: Dr. Willett Ordered: Referrals: Psychiatry. Dr. Willett Appointment date/timeframe: 02/16/2024 ordered Appointment Judy Rodrigues BOOKED Future Order: Lab Order Urinalys is, Macroscopic ([id number]), Ordered on: Ordered History Of Present Illness [...] today.History of ER visits/Falls/SNF/Hospitalizations:-05/25/23 -06/14/23: Inpatient at [facility]. No other hospitalizations, ER visits since then. -Before COVID, was on 5th floor x 1.5 years at [place] on their psychiatric unit. Then was for a few months on 1st floor in a unit x few months for psychiatric concerns. Specialists:-Dr. Fausto Willett at [facility]. Seeing him tomorrow. He is a [...] Social: Judy lives in the community in [place] with her , just the 2 of them. They have always lived in the area. They have family in [place] and [place]. Herve has a son and daughter from a previous relationship and they also have one son together. No alcohol or smoking now or in the past. Mammogram: Per pre-enrollment documents, last performed 05/22/2022 with results stating, t he breasts are extremely dense, which lowers the sensitivity of mammography . No significant abnormalities seen. Will discuss at follow up visit if she would like to continue these screenings. Colonoscopy: Judy and her are unsure when her last colonoscopy was; they think possibly 1 year ago at [facility]. Bone density: Unclear when her last DEXA was. Not seen in pre-enrollment records from [place]. Osteoporosis listed in her problem list with [...] t No Information Instructions Date Instruction Additional Infor steven -Per pre-enrollment (01/31/22 page 24) described as generalized anxiety disorder. She has a complicated psychiatric history and follows closely with her psychiatrist Dr. Willett. Per pre-enrollment, has been treated in the past with ECT, Trintellix, Doxepin, Caplyta. Admitted in early 2023 to [place] with ???anxiety, racing thoughts, insomnia???. Underwent ECT while there. She was then transferred to medical service for medical concerns after refusing her medications for several days.-She reports more recent treatment with TMS, supposed to be every 6 months, finished around January 2024.-Continue following with Dr. Willett given complex psychiatric history. Last seen 02/2024; note received, no medication changes. -Continue PRN lorazepam, mirtazapine 30mg daily, Seroquel [...] Doxepin, Caplyta. Admitted in early 2023 to [place] with ???anxiety, racing thoughts, insomnia???. Underwent ECT [...] with Dr. Willett given complex psychiatric history. Last seen 02/2024; note received and no medication changes made. -Continue PRN lorazepam, mirtazapine 30mg daily, Seroquel 50mg at bedtime, trazodone 50mg at bedtime, Trintellix 20mg daily. Related to Recurrent major depressive disorder, in partial remission -2 weeks of worsenin g vulvovaginal itching, [...] is possible however the history in the [facility] records suggests possible FARNAZ. Will explore possibility [...] Doxepin, Caplyta. Admitted in early 2023 to [place] with ???anxiety, racing thoughts, insomnia???. Underwent ECT while there. She was then transferred to medical service for medical concerns after refusing her medications for several days.-She reports more recent treatment with TMS, supposed to be every 6 months, finished around January 2024.-Continue following with Dr. Willett given complex psychiatric history. Next appt scheduled for 04/21 per patient. SW assisted with signing of new release today [...] Doxepin, Caplyta. Admitted in early 2023 to [place] with ???anxiety, racing thoughts, insomnia???. Underwent ECT [...] Next appt scheduled for 04/21 per patient. SW assisted with having them sign another release [...] medications, hypothyroidism. -Routine screening labs. Periodic weights. Masonry Teacher to see her for screening and counseling if indicated. Related to BMI 32.0-32.9,adult -Per pre-enrollment (01/31/22 pg 30).-BMI 32.2 today. -Routine screening labs. Periodic weights. Masonry Teacher to see her for screening and counseling [...] Doxepin, Caplyta. Admitted in early 2023 to [place] with ???anxiety, racing thoughts, insomnia???. Underwent ECT [...] Related to POONAM (generalized anxiety disorder) -At [facility] appt, patien t and spouse report she had a [...] She did have parathyroid imaging in 03/2019 ([facility]) with results stating There is homogeneous uptake [...] Doxepin, Caplyta. Admitted in early 2023 to [place] with ???anxiety, racing thoughts, insomnia???. Underwent ECT [...] History of mammogram Assessments Type Assessment Date assessment Recurrent major depressive disor adriana, in partial remission assessment POONAM (generalized anxiety disorde r) Goals Health Concern Goal Type Priority Status Date Judy is at risk for hospitalization related to depression, mental health issues Judy will remain living safely in the community through the next review and not be admitted to hospital Patient Goal New uJdy has depression and anxiety. Judy will identify coping strategies, and utilize these strategies during increased feelings of depression and anxiety. Patient Goal New Judy is at risk for skin breakdown related to incontinence Skin will remain free from breakdown for 6 months. Patient Goal New Patient Care Teams Name Effective Dates (start - stop) Status Members No Information
--- NOTE | 2024-06-03 10:57 | A.OFFPSYCH_ITS ---
Intake Intake Visit Reasons: depression Allergies risperidone [From Risperdal] Allergy (Intermediate, Verified 11/04/23 12:53) UNKNOWN Sulfa (Sulfonamide Antibiotics) Allergy (Intermediate, Verified 11/04/23 12:53) rash From BENADRYL Allergy (Intermediate, Uncoded 11/04/23 12:53) DIZZY Medication List - Last Reconciled 06/03/24 by Broderick Willett MD donepezil 10 mg PO BEDTIME 30 days folic acid 1 mg PO DAILY ibuprofen 200 mg PO Q6H PRN lorazepam 0.5 mg PO BID 30 days melatonin 5 mg PO BEDTIME memantine 10 mg PO BID 90 days mirtazapine 30 mg PO BEDTIME 30 days propranolol 10 mg See Protocol PO TID 90 days quetiapine 50 mg PO BEDTIME 30 days Rexulti (brexpiprazole) 0.5 mg PO DAILY 30 days NS thiamine mononitrate (vit B1) 100 mg PO BID trazodone 50 mg PO BEDTIME PRN 90 days vortioxetine (Trintellix) 20 mg PO DAILY@1730 90 days HPI- Psychiatric Chief Complaint: depression HPI Narrative: Patient seen psychiatric follow-up with her . Patient is depressed a motivational flat limited functioning at home. No psychotic symptoms appetite okay. Patient does have restlessness consistent with akathisia. She is unfortunately also lethargic limited engagement with things no psychotic symptoms Past Psychiatric History: Patient with long history of recurrent depression with multiple prior psychiatric hospitalizations. 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 no classic bipolar symptoms past depressive psychotic episodes not for a number of years Mental Status Exam Mental Status Exam Narrative: Mental Status Exam Narrative: Appearance: Casually dressed Behavior: Cooperative appropriate psychomotor: Needing to move her legs no oral facial dyskinesia Speech: Normal volume and prosody Thought proccess logical and goal-directed Thought content: Future oriented no self-harming thoughts Mood: Flat dysphoric Affect: Constricted SI:denies HI:denies VH/AH:none Delusions: None Insight/judgment: Good insight and judgment Memory/cog: Intact Assessment and Plan Assessment & Plan (1) Major depressive disorder, recurrent episode: Status: Acute Code(s): F33.9 - Major depressive disorder, recurrent, unspecified (2) POONAM (generalized anxiety disorder): Status: Acute Code(s): F41.1 - Generalized anxiety disorder Plan Discussed the use of modafinil off-label for bipolar depression at 50 mg if adverse reaction to immediately stop discontinue Rexulti secondary to akathisia. Continue Seroquel 50 at bedtime consider lowering mirtazapine consider Caplyta. Patient also was noted to sleep hypoxia when inpatient has not been evaluated outpatient referral to Sleep Lab Medications: New modafinil (Provigil) 50 mg (1/2 x 100 mg) PO DAILY 30 tabs 1RF Discontinued Rexulti (brexpiprazole) Discontinued Reason: Doctor's Order 0.5 mg PO DAILY 30 days 30 tabs 3RF NS Orders: Referrals Sleep Medicine Referral G47.00 - Insomnia, unspecified, G47.34 - Idiopathic sleep related nonobstructive alveolar hypoventilation Counseling and coordination of Care Details-Self Mgmt counseling: Encourage light exposure daily walks Medication management counseling: Effectiveness and Side effects Diagnosis and Prognosis Counseling: Problematic behaviors secondary to diagnosis and Adequacy of current interventions Details: I spent [40] minutes reviewing the record, seeing the patient and documenting in the medical record. Counseling provided to the patient/caregiver as outlined below. Addressed patient/caregiver concerns regarding current medication regime including effective adherence. Addressed patient/caregiver concerns regarding diagnosis and prognosis including accuracy of diagnosis, prognosis over time, impact of diagnosis. Addressed patient/caregiver concerns regarding impact of recent stressors. [facility] Medical History (Updated 06/06/24 @ 13:16 by Broderick Willett MD) Dementia Nocturnal hypoxia Severe recurrent major depression w/psychotic features, mood-congruent Has daytime drowsiness Preoperative examination Elevated glucose Screening for colon cancer Screening for diabetes mellitus Obesity (BMI 30-39.9) Confused but orients easily Depression, major, severe recurrence Abnormal serum protein electrophoresis Mild recurrent major depression Anxiety and depression Encounter for Medicare annual wellness exam Removal of nell Depression with anxiety Abdominal distention Weight gain Major depression, recurrent, full remission POONAM (generalized anxiety disorder) Hypothyroidism Hyperparathyroidism Multinodular thyroid Vitamin D deficiency Osteoporosis Surgical History Hx of colonoscopy Hx of kyphoplasty Hx of section Family History Father Myocardial infarction CVD (cardiovascular disease) Mother Dementia Alzheimer disease Other Mental health disorder Social History Household Members: Spouse Housing: Apartment Do you presently have visiting nurse or other home services: No Alcohol intake: never Comment: 1:1 sitter at bedside Patient Tobacco Use Status: Never used Tobacco e-Cigarette/Vaping Use: Never Used Second Hand Smoke Exposure: No service: No Current occupational status: unemployed Sexual orientation: Straight/Heterosexual Cognitive needs: No Hearing needs: No Social History: Patient disabled has 1 son. Chronic anxiety has an intermittent difficult relationship with her mostly has not worked Substance History: Denies Trauma History: None noted Coding Level of Care Code Est Pt Level 3 (78145) Therapy 30m w/E&M (06855) Diagnoses Major depressive disorder, recurrent episode F33.9 POONAM (generalized anxiety disorder) F41.1
== END 2024-06-03 10:54 | disposition home or self-care (01) ==
LOC: HO.HOP 10:07
PROVIDERS: PCP Internal Medicine; Visit Provider Psychiatry & Neurology Psychiatry
DX: F33.9 Major depressive disorder, recurrent, unspecified (principal); F41.1 Generalized anxiety disorder
CPT/HCPCS: 90833; 99213

== ENCOUNTER → 2024-06-03 10:07 | Outpatient (BNVA) | payer MEDICARE, SELFPAY | PROVIDERS: PCP Internal Medicine; Visit Provider Psychiatry & Neurology Psychiatry | DX: F33.9 Major depressive disorder, recurrent, unspecified (principal); F41.1 Generalized anxiety disorder; Z71.89 Other specified counseling | CPT/HCPCS: 99212 ==

== ENCOUNTER 2024-06-10 10:46 | Outpatient (AMB) | payer MEDICARE, SELFPAY ==
--- OUTSIDE RECORDS SUMMARY | 2024-06-10 12:25 | XMS_ITS | Continuity of Care Document ---
Author Organization [facility] Address [address] [address] Phone Care Team Providers Care Wrapper Opener Name Role Phone Ananda STIPPLER Liss Unavailable Unavailab le Allergies, Adverse Reactions, [...] Dr. Willett (psychiatry). Last filled 01/18/24 per [employer], for quantity 60 (30 day supply if [...] Diagnoses Date Provider Providers Copied on Encounter Critical access hospital, [address] [address], [place], [place], [id number], tel:[phone] [place] Recurrent major depressive disorder, in partial remissionGAD (generalized anxiety disorder) [address] [place], [place], [id number], [place]. tel:[phone] OFFICE/OUTPA TIENT VISIT [facility], [address] [address], [place], [place], [id number], [place] tel:[phone] [place] Acute Visit (chief complaint) Genitourinary syndrome of menopause May- 4 [address] [place], [place], [id number], [place]. tel:[phone] Critical access hospital, [address] [address], [place], [place], [id number], [place] tel:[phone] [place] No Information Apr- 4 [address] [place], [place], [id number], [place]. tel:[phone] OFFICE/OUTPA TIENT VISIT EST Critical access hospital, 1 [facility], [place], [place], [id number], [place] tel:[phone] [place] Follow-up (chief complaint) Shortness of breathRecurre nt major depressive disorder, in partial remissionGAD (generalized anxiety disorder)Inso mnia, unspecified type Apr-0 [address], [place], [place], [id number], [place]. tel:[phone] OFFICE/OUTPA TIENT VISIT EST [facility] [address] [facility] [place], [place], [id number], [place] tel:[phone] [place] Follow-up (chief complaint) Mixed hyperlipidemi aOsteoporosis without current pathological fracture, unspecified osteoporosis typeAdvanced directives, counseling/di scussion 7- 4 [address] [place], [place], [id number], [place]. tel:[phone] [facility] hospital[facility] [address] [facility] [place], [place], [id number], [place] tel:[phone] [place] Other specified personal risk factors, not elsewhere classifiedUns pecified visual disturbance Sep- 4 [address], [place], [place], [id number], [place]. tel:[phone] Critical access hospital, 1 [facility], [place], [place], [id number], [place] tel:[phone] [place] No Information Sep-06 10- 4 [address] [place], [place], [id number], [place]. tel:[phone] Critical access hospital, 1 [facility], [place], [place], [id number], [place] tel:[phone] [place] No Information Sep- 4 [address] [place], [place], [id number], [place]. tel:[phone] Critical access hospital, [facility] [place], [place], [id number], [place] tel:[phone] [place] Major depressive disorder, recurrent, in partial remission Sep-1 0- 4 [address] [place], [place], [id number], [place]. tel:[phone] Critical access hospital, 1 [facility], [place], [place], [id number], [place] tel:[phone] [place] Encounter for rehabilitatio n evaluation Sep-0 4 [address] [facility] [place], [id number], [place]. tel:[phone] Critical access hospital, 1 [facility], [place], [place], [id number], [place] tel:[phone] [place] Encounter for rehabilitatio n evaluation Feb-0 4 Gerardo Wilson. [address] [place], [address]. tel:[phone] Critical access hospital, 1 [facility], [place], [place], [id number], [place] tel:[phone] [place] Encounter for nutritional assessmentCla ss 1 obesity with serious comorbidity and body mass index (BMI) of 32.0 to 32.9 in adult, unspecified obesity typeBody mass index [BMI] 32.0-32.9, adult Feb-0 4 [address] [place], [place], [id number], [place]. tel:[phone] OFFICE/OUTPA TIENT VISIT EST Critical access hospital, 1 [facility], [place], [place], [id number], [place] tel:[phone] [place] Post Enrollment Evaluation (chief complaint) History of [...] type Feb-0 4 [address] [place], [place], [id number], [place]. tel:[phone] Critical access hospital, 1 [facility], [place], [place], [id number], tel:[phone] [place] No Information Frantz Brink. [address], [place], [place], [id number], . tel:[phone] Family History Family Member Type Diagnosis Age [...] Registry Payers Payer name Insurance type Covered republican ID Tremaine bluntbayron(s) [employer] 16 [id number] [employer] 16 [id number] [employer] 16 [id number] Social History Type Description Quantity Date Captured Comments Alcohol Use Details Unknown Caffeine Use Details Unknown Tobacco Use Status No Information Smoking Status No Information Sex Female Chief Complaint And Reason For Visit No Information Reason For Referral Reason For Referral No Information Plan Of Treatment Date Type Action Status Referral Ordered: Mold Tooling Technician (related to Visual changes) ordered Referral Ordered: Dentistry (related to Need for dental care) ordered Referral Ordered: Referrals: Dentistry. Evaluate and treat ordered Referral Ordered: Referrals: Mold Tooling Technician. Evaluate and treat ordered Referral Referred To: Dr. Willett Ordered: Referrals: Psychiatry. Dr. Willett Appointment date/timeframe: 02/16/2024 ordered Appointment Judy Rodrigues BOOKED Future Order: Lab Order Urinalys is, Macroscopic ([id number]), Ordered on: Ordered History Of Present Illness [...] today.History of ER visits/Falls/SNF/Hospitalizations:-05/25/23 -06/14/23: Inpatient at [facility]. No other hospitalizations, ER visits since then. -Before COVID, was on 5th floor x 1.5 years at [facility] on their psychiatric unit. Then was for a few months on 1st floor in a unit x few months for psychiatric concerns. Specialists:-Dr. Fausto Willett at [facility]. Seeing him tomorrow. He is a [...] Social: Judy lives in the community in [place] with her , just the 2 of them. They have always lived in the area. They have family in [place] and [place]. Herve has a son and daughter from [...] they think possibly 1 year ago at [facility]. Bone density: Unclear when her last DEXA was. Not seen in pre-enrollment records from [facility]. Osteoporosis listed in her problem list with [...] D[place]ep[place], Caplyta. Admitted in early 2023 to [facility] with ???anxiety, racing thoughts, insomnia???. Underwent ECT [...] Doxepin, Caplyta. Admitted in early 2023 to [facility] with ???anxiety, racing thoughts, insomnia???. Underwent ECT [...] is possible however the history in the [facility] records suggests possible FARNAZ. Will explore [...] Doxepin, Caplyta. Admitted in early 2023 to [facility] with ???anxiety, racing thoughts, insomnia???. Underwent ECT [...] Doxepin, Caplyta. Admitted in early 2023 to [facility] with ???anxiety, racing thoughts, insomnia???. Underwent ECT [...] medications, hypothyroidism. -Routine screening labs. Periodic weights. Die Maker Stamping to see her for screening and counseling if indicated. Related to BMI 32.0-32.9,adult -Per pre-enrollment (01/31/22 pg 30).-BMI 32.2 today. -Routine screening labs. Periodic weights. Die Maker Stamping to see her for screening and counseling [...] Doxepin, Caplyta. Admitted in early 2023 to [facility] with ???anxiety, racing thoughts, insomnia???. Underwent ECT [...] Related to POONAM (generalized anxiety disorder) -At [facility] appt, patien t and spouse report [...] She did have parathyroid imaging in 03/2019 ([facility]) with results stating There is homogeneous uptake [...] Doxepin, Caplyta. Admitted in early 2023 to [facility] with ???anxiety, racing thoughts, insomnia???. Underwent ECT [...] be admitted to hospital Patient Goal New Judy has depression and anxiety. Judy will [...]
--- OUTSIDE RECORDS SUMMARY | 2024-06-10 12:25 | XMS_ITS | Clinical Summary ---
Author Organization Unknown Care Team Providers Care [facility] Name Role Phone TAMEKA RODRIGUEZ, VITALY Unavailable Unavailable USMAN DONOHUE, FABIANO Unavailable Unavailable Payers Payer Name Policy Type Policy Number Effective Date Expira tion Date [facility] - [facility] [id number] MEDICAID [facility] [id number] MEDICARE - [facility]/DC - PD [id number] Problems Condition Name Condition Details Condition Category Status Onset Date Resolution Date Last Treatment Date Treating Clinician Comments MAJOR DEPRESSV DISORDER, RECURRENT SEVERE W/O PSYCH FEATURES Active 11-18 00:00: 00 GENERALIZED ANXIETY DISORDER Active 11-18 00:00: 00 Allergies, Adverse Reactions, Alerts Allergy Name Allergy Type Status Severity Reaction(s) Onset Date Inactive Date Treating Clinician Comments NKA Propensity to adverse reactions Active 2023-11 09:09:4 5 Medications Ordered Medication Name Filled Medication Name Start Date Stop Date Current Medication? Ordering Clinician Indication Dosage Frequency Signature (SIG) Comments Components donepezil 10 mg tablet 11-19 00:00: 00 Yes [id number] 10 mg BEDTIME 10 mg BEDTIME (route: oral) Med Classific ation: Cognitive Disorder Therapy folic acid 1 mg tablet 11-19 00:00: 00 Yes [id number] 1 mg DAILY 1 mg BECK Y (route: oral) Med Classific ation: Electroly te Balance-N utritiona l Products lorazepam 0.5 mg tablet 11-19 00:00: 00 Yes [id number] 0.5 mg 2 TIMES DAILY 0.5 mg 2 TIMES DAILY (route: oral) Med Classific ation: Central Nervous System Agents melatonin 5 mg capsule 11-19 00:00: 00 Yes [id number] 5 mg BEDTIME 5 mg BEDTIME (route: oral) Med Classific ation: Central Nervous System Agents memantine 10 mg tablet 11-19 00:00: 00 Yes [id number] 10 mg 2 TIMES DAILY 10 mg 2 TIMES DAILY (route: oral) Med Classific ation: Cognitive Disorder Therapy propranolol 10 mg tablet 11-19 00:00: 00 Yes [id number] 10 mg 3 TIMES DAILY 10 mg 3 TIMES DAILY (route: oral) Med Classific ation: Cardiovas cular Therapy Agents quetiapine 25 mg tablet 09-03 00:00: 00 11-19 00:00 :00 No [id number] 25 mg BEDTIME 25 mg BEDTIME (route: oral) Med Classific ation: Central Nervous System Agents quetiapine 25 mg tablet 09-03 00:00: 00 11-19 00:00 :00 No [id number] 25 mg BEDTIME 25 mg BEDTIME (route: oral) Med Classific ation: Central Nervous System Agents thiamine HCl (vitamin B1) 100 mg tablet 11-19 00:00: 00 Yes [id number] 100 mg DAILY 100 mg DAILY (route: oral) Med Classific ation: Electroly te Balance-N utritiona l Products trazodone 50 mg tablet 11-19 00:00: 00 Yes [id number] 50 mg BEDTIME 50 mg BEDTIME (route: oral) Med Classific ation: Central Nervous System Agents Trintellix 20 mg tablet 11-19 00:00: 00 Yes [id number] 20 mg DAILY 20 mg DAILY (route: oral) Med Classific ation: Central Nervous System Agents mirtazapine 15 mg tablet 10-22 00:00: 00 11-19 00:00 :00 No [id number] 1 tablet BEDTIME 1 tablet BEDTIME (route: oral) Med Classific ation: Central Nervous System Agents Rexulti 0.5 mg tablet 10-22 00:00: 00 11-19 00:00 :00 No [id number] 1 tablet DAILY 1 tablet DAILY (route: oral) Med Classific ation: Central Nervous System Agents ibuprofen 200 mg tablet 11-19 00:00: 00 Yes [id number] 1 tablet EVERY 6 HOURS 1 tablet EVERY 6 HOURS (route: oral) Med Classific ation: Analgesic , Anti-infl ammatory or Antipyret ic mirtazapine 30 mg tablet 11-19 00:00: 00 Yes [id number] 1 tablet BEDTIME 1 tablet BEDTIME (route: oral) Med Classific ation: Central Nervous System Agents quetiapine 50 mg tablet 11-19 00:00: 00 Yes [id number] 1 tablet BEDTIME 1 tablet BEDTIME (route: oral) Med Classific ation: Central Nervous System Agents Rexulti 1 mg tablet 11-19 00:00: 00 05-26 23:59 :00 No [id number] 1 tablet EVERY AM 1 tablet EVERY AM (route: oral) Med Classific ation: Central Nervous System Agents Rexulti 1 mg tablet 11-19 00:00: 00 Yes [id number] 0.5 tablet BEDTIME 0.5 tablet BEDTIME (route: oral) Med Classific ation: Central Nervous System Agents MELATONIN ORAL 01-01 00:00: 00 01-31 00:00 :00 No 5 mg2 TABLETS AT BEDTIME 5 mg2 TABLETS AT BEDTIME (route: ) Med Classific ation: ALTERNATI VE THERAPY VITAMIN B-12 ORAL 11-25 00:00: 00 12-25 00:00 :00 No 500 mcg1 TABLET EVERY DAY 500 mcg1 TABLET EVERY DAY (route: ) Alternate Route: BY MOUTH . Med Classific ation: ELECTROLY TE BALANCE-N UTRITIONA L PRODUCTS VITAMIN B-12 ORAL 2017-06 00:00: 00 06-16 00:00 :00 No 1,000 mcg1 TABLET EVERY DAY 1,000 mcg1 TABLET EVERY DAY (route: ) Med Classific ation: ELECTROLY TE BALANCE-N UTRITIONA L PRODUCTS VITAMIN B-12 ORAL 02-10 00:00: 00 03-12 00:00 :00 No 1,000 mcg1 TABLET EVERY DAY 1,000 mcg1 TABLET EVERY DAY (route: ) Med Classific ation: ELECTROLY TE BALANCE-N UTRITIONA L PRODUCTS MELOXICAM ORAL 2-15 00:00: 00 08-22 00:00 :00 No 15 mg1 TABLET EVERY DAY 15 mg1 TABLET EVERY DAY (route: ) Alternate Route: BY MOUTH . Med Classific ation: ANALGESIC , ANTI-INFL AMMATORY OR ANTIPYRET IC CYANOCOBALA MIN (VITAMIN B-12) ORAL 07-16 00:00: 08-15 00:00 :00 No 1,000 mcg1 TABLET EVERY DAY 1,000 mcg1 TABLET EVERY DAY (route: ) Med Classific ation: ELECTROLY TE BALANCE-N UTRITIONA L PRODUCTS ALENDRONATE ORAL 07-16 00:00: 08-13 00:00 :00 No 70 mg1 TABLET ONCE A WEEK WITH 6 TO 8 OZ OF WATER 30 MIN BEFORE FIRST FOOD OF DAY DO NOT LIE DOWN FOR 30 MINUTES O 70 mg1 TABLET ONCE A WEEK WITH 6 TO 8 OZ OF WATER 30 MIN BEFORE FIRST FOOD OF DAY DO NOT LIE DOWN FOR 30 MINUTES O (route: ) Med Classific ation: ENDOCRINE VITAMIN B-1 ORAL 07-16 00:00: 00 08-15 00:00 :00 No 100 mg1 TABLET TWICE DAILY 100 mg1 TABLET TWICE DAILY (route: ) Med Classific ation: ELECTROLY TE BALANCE-N UTRITIONA L PRODUCTS VITAMIN B-1 ORAL 2017-06 0 00:00: 00 04-09 00:00 :00 No 100 mg1 TABLET TWICE DAILY 100 mg1 TABLET TWICE DAILY (route: ) Med Classific ation: ELECTROLY TE BALANCE-N UTRITIONA L PRODUCTS OLANZAPINE ORAL 01-01 00:00: 00 01-31 00:00 :00 No 10 mg1 TABLET EVERY DAY AT BEDTIME 10 mg1 TABLET EVERY DAY AT BEDTIME (route: ) Alternate Route: BY MOUTH . Med Classific ation: CENTRAL NERVOUS SYSTEM AGENTS OMEPRAZOLE ORAL 07-16 00:00: 00 07-31 00:00 :00 No 20 mg1 CAPSULE TWICE DAILY AT 630AM AND AT 20 mg1 CAPSULE TWICE DAILY AT 630AM AND AT (route: ) Med Classific ation: GASTROINT ESTINAL THERAPY AGENTS QUETIAPINE ORAL 2017-06 00:00: 05-12 00:00 :00 No 100 mg1 TABLET 1/2 TABLET AT BEDTIME NEEDED 100 mg1 TABLET 1/2 TABLET AT BEDTIME NEEDED (route: ) Med Classific ation: CENTRAL NERVOUS SYSTEM AGENTS QUETIAPINE ORAL 2017-0 9-05 00:00: 00 03-12 00:00 :00 No 50 mg1 TABLET AT BEDTIME 50 mg1 TABLET AT BEDTIME (route: ) Med Classific ation: CENTRAL NERVOUS SYSTEM AGENTS VENLAFAXINE ORAL 7-27 00:00: 00 01-31 00:00 :00 No 150 mg1 CAPSULE EVERY 150 mg1 CAPSULE EVERY (route: ) Alternate Route: BY MOUTH . Med Classific ation: CENTRAL NERVOUS SYSTEM AGENTS LIOTHYRONIN E ORAL 2017-06- 00:00: 00 06-16 00:00 :00 No 25 mcg1/2 TABLET EVERY DAY FOR ONE WEEK LET EVERY 25 mcg1/2 TABLET EVERY DAY FOR ONE WEEK LET EVERY (route: ) Alternate Route: BY MOUTH . Med Classific ation: ENDOCRINE LIDOCAINE TOPICAL 2-08 00:00: 00 08-15 00:00 :00 No 5 %1 PATCH LEAVE ON FOR 12 HOURS AND OFF FOR 12 HOURS 5 %1 PATCH LEAVE ON FOR 12 HOURS AND OFF FOR 12 HOURS (route: ) Alternate Route: TO SKIN . Med Classific ation: ANESTHETI CS DOXEPIN ORAL 2017-06 2-28 00:00: 00 07-04 00:00 :00 No 25 mg1 CAPSULE EVERYDAY AT BEDTIME 25 mg1 CAPSULE EVERYDAY AT BEDTIME (route: ) Alternate Route: BY MOUTH . Med Classific ation: CENTRAL NERVOUS SYSTEM AGENTS TEMAZEPAM ORAL 3-22 00:00: 00 09-06 00:00 :00 No 15 mg1 CAPSULE AT BEDTIME NEEDED 15 mg1 CAPSULE AT BEDTIME NEEDED (route: ) Alternate Route: BY MOUTH . Med Classific ation: CENTRAL NERVOUS SYSTEM AGENTS ZOLPIDEM ORAL 3-11 00:00: 00 09-15 00:00 :00 No 10 mg1 TABLET AT BEDTIME 10 mg1 TABLET AT BEDTIME (route: ) Alternate Route: BY MOUTH . Med Classific ation: CENTRAL NERVOUS SYSTEM AGENTS ZOLPIDEM ORAL 0 2-08 00:00: 08-15 00:00 :00 No FOR SLEEP 5 mg1 TABLET AT BEDTIME NEEDED 5 mg1 TABLET AT BEDTIME NEEDED (route: ) Alternate Route: BY MOUTH . Med Classific ation: CENTRAL NERVOUS SYSTEM AGENTS LORAZEPAM ORAL 2-08 00:00: 00 08-15 00:00 :00 No 0.5 mg1 TABLET THREE TIMES DAILY 0.5 mg1 TABLET THREE TIMES DAILY (route: ) Alternate Route: BY MOUTH . Med Classific ation: CENTRAL NERVOUS SYSTEM AGENTS LORAZEPAM ORAL 0 9-17 00:00: 00 03-24 00:00 :00 No 0.5 mg1 TABLET TWICE DAILY 0.5 mg1 TABLET TWICE DAILY (route: ) Med Classific ation: CENTRAL NERVOUS SYSTEM AGENTS LORAZEPAM ORAL 7 00:00: 00 01-31 00:00 :00 No 0.5 mg1 TABLET TWICE DAILY 0.5 mg1 TABLET TWICE DAILY (route: ) Med Classific ation: CENTRAL NERVOUS SYSTEM AGENTS LORAZEPAM ORAL 2017-06 0-31 00:00: 00 05-07 00:00 :00 No 1 mg1/2 TO 1 TABLET TWICE DAILY 1 mg1/2 TO 1 TABLET TWICE DAILY (route: ) Med Classific ation: CENTRAL NERVOUS SYSTEM AGENTS LORAZEPAM ORAL 8- 00:00: 00 03-03 00:00 :00 No 1 mg2 TABLETS AT BEDTIME 1 mg2 TABLETS AT BEDTIME (route: ) Med Classific ation: CENTRAL NERVOUS SYSTEM AGENTS MEGESTROL ORAL 2-08 00:00: 00 07-28 00:00 :00 No 400 mg/10 mL (40 mg/mL)1 0 ML EVERY DAY 400 mg/10 mL (40 mg/mL)10 ML EVERY DAY (route: ) Alternate Route: BY MOUTH . Med Classific ation: ANTINEOPL ASTICS VITAMIN D3 ORAL 2-08 00:00: 00 08-15 00:00 :00 No 1,000 unit2 TABLETS EVERY DAY 1,000 unit2 TABLETS EVERY DAY (route: ) Med Classific ation: ELECTROLY TE BALANCE-N UTRITIONA L PRODUCTS VITAMIN D3 ORAL 2017-06 00:00: 00 05-14 00:00 :00 No 1,000 unit2 TABLETS EVERY 1,000 unit2 TABLETS EVERY (route: ) Med Classific ation: ELECTROLY TE BALANCE-N UTRITIONA L PRODUCTS NORTRIPTYLI NE ORAL 2017-06 2-10 00:00: 00 06-16 00:00 :00 No 10 mg1 CAPSULE AT BEDTIME 10 mg1 CAPSULE AT BEDTIME (route: ) Alternate Route: BY MOUTH . Med Classific ation: CENTRAL NERVOUS SYSTEM AGENTS NORTRIPTYLI NE ORAL 2017-06 2-12 00:00: 00 06-18 00:00 :00 No 25 mg1 TO 2 CAPSULE (S) AT BEDTIME FOR 1 WEEK THEN INCREASE TO 2 CAPSU LE (S) AT BEDTIME 25 mg1 TO 2 CAPSULE (S) AT BEDTIME FOR 1 WEEK THEN INCREASE TO 2 CAPSU LE (S) AT BEDTIME (route: ) Med Classific ation: CENTRAL NERVOUS SYSTEM AGENTS BUPROPION HCL ORAL 2017-06 0-31 00:00: 00 05-07 00:00 :00 No 100 mg2 TABLETS 8AM AND 1 TABLET EVERY DAY AT AT 100 mg2 TABLETS 8AM AND 1 TABLET EVERY DAY AT AT (route: ) Alternate Route: BY MOUTH . Med Classific ation: CENTRAL NERVOUS SYSTEM AGENTS BUPROPION HCL ORAL 9-18 00:00: 00 03-10 00:00 :00 No 100 mg2 TABLETS EVERY DAY AT 100 mg2 TABLETS EVERY DAY AT (route: ) Med Classific ation: CENTRAL NERVOUS SYSTEM AGENTS BUPROPION HCL ORAL 7-27 00:00: 00 01-31 00:00 :00 No 75 mg1 TABLET TWICE DAILY 75 mg1 TABLET TWICE DAILY (route: ) Alternate Route: BY MOUTH . Med Classific ation: CENTRAL NERVOUS SYSTEM AGENTS BUPROPION HCL ORAL 2017-06 1-05 00:00: 00 05-12 00:00 :00 No 300 mg1 TABLET ONCE DAILY 300 mg1 TABLET ONCE DAILY (route: ) Alternate Route: BY MOUTH . Med Classific ation: CENTRAL NERVOUS SYSTEM AGENTS GABAPENTIN ORAL 3-05 00:00: 00 09-09 00:00 :00 No 100 mg1 CAPSULE MORNING AND 1 - 3 CAPSULE S T EVERY AT BEDTIME 100 mg1 CAPSULE MORNING AND 1 - 3 CAPSULES T EVERY AT BEDTIME (route: ) Alternate Route: BY MOUTH . Med Classific ation: CENTRAL NERVOUS SYSTEM AGENTS DONEPEZIL ORAL 0 2-08 00:00: 00 08-15 00:00 :00 No 5 mg1 TABLET AT BEDTIME 5 mg1 TABLET AT BEDTIME (route: ) Med Classific ation: COGNITIVE DISORDER THERAPY DONEPEZIL ORAL 2017-06 2-10 00:00: 00 06-16 00:00 :00 No 5 mg1 TABLET AT BEDTIME 5 mg1 TABLET AT BEDTIME (route: ) Med Classific ation: COGNITIVE DISORDER THERAPY REXULTI ORAL 2017-06 0- 00:00: 00 05-07 00:00 :00 No 2 mg1 TABLET ONCE DAILY 2 mg1 TABLET ONCE DAILY (route: ) Alternate Route: BY MOUTH . Med Classific ation: CENTRAL NERVOUS SYSTEM AGENTS REXULTI ORAL 2017-06 0- 00:00: 00 04-09 00:00 :00 No 1 mg1 TABLET EVERY DAY AT 1 mg1 TABLET EVERY DAY AT (route: ) Med Classific ation: CENTRAL NERVOUS SYSTEM AGENTS VRAYLAR ORAL 208 00:00: 00 08-15 00:00 :00 No 1.5 mg1 CAPSULE EVERY DAY 1.5 mg1 CAPSULE EVERY DAY (route: ) Med Classific ation: CENTRAL NERVOUS SYSTEM AGENTS Vital Signs Vital Name Observation Time Observation Value Commen ts Temperature 2024-05-31 16:10:00.000 97.8 [degF] Pulse 2024-05-31 16:10:00.000 72 /min Respirations 2024-05-31 16:10:00.000 18 /min Systolic Blood Pressure 2024-05-31 16:10:00.000 119 mm [Hg] Diastolic Blood Pressure 2024-05-31 16:10:00.000 79 mm [Hg] Plan of Treatment Planned Activity Planned Date Details Comments Future Scheduled Test SKILLED NU RSE TO EVALUATE PATIENT, IDENTIFY PRIMARY AND CO-MORBID CONDITIONS CODED PER CODING GUIDELINES, AND DEVELOP PATIENT SPECIFIC PLAN OF CARE THAT INCLUDES PATIENT GOAL FOR HOME HEALTH. [code = SKILLED NURSE TO EVALUATE PATIENT, IDENTIFY PRIMARY AND CO-MORBID CONDITIONS CODED PER CODING GUIDELINES, AND DEVELOP PATIENT SPECIFIC PLAN OF CARE THAT INCLUDES PATIENT GOAL FOR HOME HEALTH.] Future Scheduled Test SKILLED NU RSE WILL MAINTAIN SITUATIONAL AWARENESS FOR SAFETY AND WILL NOTIFY CLINICAL RULING MACHINE SET UP OPERATOR AND PHYSICIAN/PROVIDER WITH ANY CHANGE IN CONDITION. [code = SKILLED NURSE WILL MAINTAIN SITUATIONAL AWARENESS FOR SAFETY AND WILL NOTIFY CLINICAL RULING MACHINE SET UP OPERATOR AND PHYSICIAN/PROVIDER WITH ANY CHANGE IN CONDITION.] Future Scheduled Test SKILLED NU RSE TO ASSESS PATIENTS PSYCHOSOCIAL STATUS TO IDENTIFY POTENTIAL ISSUES THAT MAY COMPLICATE THE PROVISION OF THE PLAN OF CARE INCLUDING THE PATIENTS ABILITY TO ACCESS COMMUNITY RESOURCES AND PSYCHOSOCIAL SUPPORT SERVICES. [code = SKILLED NURSE TO ASSESS PATIENTS PSYCHOSOCIAL STATUS TO IDENTIFY POTENTIAL ISSUES THAT MAY COMPLICATE THE PROVISION OF THE PLAN OF CARE INCLUDING THE PATIENTS ABILITY TO ACCESS COMMUNITY RESOURCES AND PSYCHOSOCIAL SUPPORT SERVICES.] Future Scheduled Test SKILLED NU RSE FOR O/A AND SKILLED TEACHING RELATED TO MANAGEMENT OF DEPRESSIVE SYMPTOMS AND/OR DEPRESSION. SN TO REPORT SIGNIFICANT CHANGE IN DEPRESSIVE SYMPTOMS TO CLINICAL PROVIDER FOR EARLY INTERVENTION. [code = SKILLED NURSE FOR O/A AND SKILLED TEACHING RELATED TO MANAGEMENT OF DEPRESSIVE SYMPTOMS AND/OR DEPRESSION. SN TO REPORT SIGNIFICANT CHANGE IN DEPRESSIVE SYMPTOMS TO CLINICAL PROVIDER FOR EARLY INTERVENTION.] Future Scheduled Test SKILLED NU RSE FOR O/A AND SKILLED TEACHING OF COPING SKILLS TO MANAGE ANXIETY AND MAINTAIN SAFETY. [code = SKILLED NURSE FOR O/A AND SKILLED TEACHING OF COPING SKILLS TO MANAGE ANXIETY AND MAINTAIN SAFETY.] Future Scheduled Test SKILLED NU RSE FOR OBSERVATION AND ASSESSMENT TO IDENTIFY CHANGES ASSOCIATED WITH DEMENTIA AND TEACHING RELATED TO SAFETY MEASURES TO PREVENT INJURY, ELOPEMENT RISKS, BEHAVIOR CHANGES, ACTIVITIES, AND ENVIRONMENTAL CHANGES ALL SECONDARY TO IMPAIRED COGNITIVE STATUS. [code = SKILLED NURSE FOR OBSERVATION AND ASSESSMENT TO IDENTIFY CHANGES ASSOCIATED WITH DEMENTIA AND TEACHING RELATED TO SAFETY MEASURES TO PREVENT INJURY, ELOPEMENT RISKS, BEHAVIOR CHANGES, ACTIVITIES, AND ENVIRONMENTAL CHANGES ALL SECONDARY TO IMPAIRED COGNITIVE STATUS.] Future Scheduled Test SKILLED NU RSE TO O/A OF PATIENTS MENTAL/BEHAVIORAL STATUS, ASSESS VITAL SIGNS EACH VISIT, ALLOW 2 PRNS FOR MEDICATION MANAGEMENT. [code = SKILLED NURSE TO O/A OF PATIENTS MENTAL/BEHAVIORAL STATUS, ASSESS VITAL SIGNS EACH VISIT, ALLOW 2 PRNS FOR MEDICATION MANAGEMENT.] Future Scheduled Test SKILLED NU RSE TO ADMINISTER MEDICATIONS EACH VISIT AND PRE-POUR MEDICATIONS EACH VISIT PER MEDICATION LIST. [code = SKILLED NURSE TO ADMINISTER MEDICATIONS EACH VISIT AND PRE-POUR MEDICATIONS EACH VISIT PER MEDICATION LIST.] Future Scheduled Test SKILLED NU RSE TO REVIEW PATIENT MEDICATIONS. INSTRUCT PATIENT/CAREGIVER ON MONITORING OF EFFECTIVENESS, ADVERSE DRUG REACTIONS, SIDE EFFECTS OF ALL MEDICATIONS (PRESCRIPTION/-OTC), AND HOW AND WHEN TO REPORT PROBLEMS. [code = SKILLED NURSE TO REVIEW PATIENT MEDICATIONS. INSTRUCT PATIENT/CAREGIVER ON MONITORING OF EFFECTIVENESS, ADVERSE DRUG REACTIONS, SIDE EFFECTS OF ALL MEDICATIONS (PRESCRIPTION/-OTC), AND HOW AND WHEN TO REPORT PROBLEMS.] Goal 2024-05-17 Patient Goal - NO MORE HOSPI TALIZATION Goal 2024-01-14 Patient Goal - NO MORE HOSPI TALIZATION Goal 2024-03-15 Patient Goal - NO MORE HOSPI TALIZATION Goal Patient Goal - NO MORE HOSPI TALIZATION Goal Provider Goal - A PLAN OF CARE WILL BE ESTABLISHED THAT MEETS PATIENT'S RETIREMENT NEEDS AND INCLUDES PATIENT GOAL FOR HOME HEALTH. Goal Provider Goal - PATIENT WILL REMAIN SAFE IN THE COMMUNITY AND WILL BE FREE OF DANGER TO SELF AND OTHERS THROUGHOUT THE CERTIFICATION PERIOD. Goal Provider Goal - PSYCHOSOCIAL NEEDS WILL BE IDENTIFIED AND PLAN IMPLEMENTED TO MINIMIZE RISK THROUGHOUT CERTIFICATION PERIOD. Goal Provider Goal - PATIENT WILL REMAIN SAFE WITHOUT DECOMPENSATION IN DEPRESSIVE CONDITION, WHILE MAINTAINING OPTIMAL LEVEL OF MENTAL HEALTH AND WELL BEING THROUGHOUT CERTIFICATION PERIOD. Goal Provider Goal - PATIENT WILL BE ABLE TO PERFORM DAILY FUNCTIONS AND HAVE OPTIMAL IMPROVEMENT IN LEVEL OF ANXIETY THROUGHOUT CERTIFICATION PERIOD. Goal Provider Goal - PATIENT/CAREGIVER WILL VERBALIZE /DEMONSTRATE APPROPRIATE ENVIRONMENTAL/SAFETY MODIFICATIONS IN RESPONSE TO BEHAVIOR/COGNITIVE CHANGES ASSOCIATED WITH DEMENTIA DIAGNOSIS THROUGHOUT THE CERTIFICATION PERIOD. Goal Provider Goal - ALTERED MENTAL/BEHAVIORAL STATUS WILL BE IDENTIFIED PROMPTLY AND INTERVENTION INITIATED QUICKLY TO MINIMIZE ASSOCIATED RISKS THROUGHOUT CERTIFICATION PERIOD. Goal Provider Goal - PATIENT WILL COMPLY WITH MEDICATION WHEN SKILLED NURSE ADMINISTERS AND PRE-POURS MEDICATION THROUGHOUT CERTIFICATION PERIOD. Goal Provider Goal - PATIENT/CAREGIVER WILL VERBALIZE UNDERSTANDING OF EDUCATION PROVIDED ON MEDICATIONS BY THE END OF THE CERTIFICATION PERIOD. Encounters Start Date/Time End Date/Time Encounter Type Admission Type Attending [facility] Care Department Encounter ID Discharge Date Discharge Status Discharge Condition Discharge Reason Percent Goals Met 2023-11-20 00:00:00 2024-07-16 00:00:00 Outpatient RECERTIFIC FABIANO [facility] [id number] 37.50
--- NOTE | 2024-06-12 16:07 | MHC.OFFVISPS ---
Intake Intake Visit Reasons: depression Allergies risperidone [From Risperdal] Allergy (Intermediate, Verified 11/04/23 12:53) UNKNOWN Sulfa (Sulfonamide Antibiotics) Allergy (Intermediate, Verified 11/04/23 12:53) rash From BENADRYL Allergy (Intermediate, Uncoded 11/04/23 12:53) DIZZY HPI- Psychiatric Chief Complaint: depression HPI Narrative: Patient seen with her . She reports feeling depressed withdrawn poor appetite and poor sleep in spite of Seroquel 100 bedtime 25 mg in the morning. She is also on mirtazapine at bedtime. Difficulty falling and staying asleep somewhat lethargic a motivational during the day denies SI Past Psychiatric History: Patient with long history of recurrent depression with multiple prior psychiatric hospitalizations. 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 no classic bipolar symptoms past depressive psychotic episodes not for a number of years Mental Status Exam Mental Status Exam Narrative: Mental Status Exam Narrative: Appearance: Casually dressed Behavior: Cooperative appropriate psychomotor: Mild akathisia Speech: Normal volume and prosody Thought proccess logical and goal-directed poverty of content Thought content: Patient focused on treatment focused on insomnia feeling depressed Mood: Flat dysphoric Affect: Constricted SI:denies HI:denies VH/AH:none denies command hallucination Delusions: None Insight/judgment: Asking for help Memory/cog: Intact regarding medications some executive functioning and episodic memory difficulties Assessment and Plan Assessment & Plan (1) Major depressive disorder, recurrent severe without psychotic features: Status: Acute Code(s): F33.2 - Major depressive disorder, recurrent severe without psychotic features (2) POONAM (generalized anxiety disorder): Status: Acute Code(s): F41.1 - Generalized anxiety disorder (3) Psychotic depression: Status: Acute Code(s): F32.3 - Major depressive disorder, single episode, severe with psychotic features Plan Patient with significant insomnia will try gabapentin 200 mg bedtime warned regarding sedation fall risk patient also given light box to use 1/2 hour in the morning reviewed instructions warning regarding anxiety agitation. Need to be more active. Question restart Rexulti 0.5 mg difficulty with akathisia question restless leg at night gabapentin should be helpful Does have a history of seasonal depression Medications: New gabapentin 200 mg (2 x 100 mg) PO BEDTIME 60 caps 2RF 30 days Counseling and coordination of Care Pt. Self Management counseling: Sleep hygiene and Behavior activation Medication management counseling: Effectiveness, Side effects and Dosing range Diagnosis and Prognosis Counseling: Adequacy of current interventions Details-Diagnosis/Prognosis counseling: Consider ECT needed Details: I spent [30] minutes reviewing the record, seeing the patient and documenting in the medical record. Counseling provided to the patient/caregiver as outlined below. Addressed patient/caregiver concerns regarding current medication regime including effective adherence. Addressed patient/caregiver concerns regarding diagnosis and prognosis including accuracy of diagnosis, prognosis over time, impact of diagnosis. Addressed patient/caregiver concerns regarding impact of recent stressors. [facility] Medical History (Updated 06/06/24 @ 13:16 by Broderick Willett MD) Dementia Nocturnal hypoxia Severe recurrent major depression w/psychotic features, mood-congruent Has daytime drowsiness Preoperative examination Elevated glucose Screening for colon cancer Screening for diabetes mellitus Obesity (BMI 30-39.9) Confused but orients easily Depression, major, severe recurrence Abnormal serum protein electrophoresis Mild recurrent major depression Anxiety and depression Encounter for Medicare annual wellness exam Removal of nell Depression with anxiety Abdominal distention Weight gain Major depression, recurrent, full remission POONAM (generalized anxiety disorder) Hypothyroidism Hyperparathyroidism Multinodular thyroid Vitamin D deficiency Osteoporosis Surgical History Hx of colonoscopy Hx of kyphoplasty Hx of section Family History Father Myocardial infarction CVD (cardiovascular disease) Mother Dementia Alzheimer disease Other Mental health disorder Social History Household Members: Spouse Housing: Apartment Do you presently have visiting nurse or other home services: No Alcohol intake: never Comment: 1:1 sitter at bedside Patient Tobacco Use Status: Never used Tobacco e-Cigarette/Vaping Use: Never Used Second Hand Smoke Exposure: No service: No Current occupational status: unemployed Sexual orientation: Straight/Heterosexual Cognitive needs: No Hearing needs: No Social History: Patient disabled has 1 son. Chronic anxiety has an intermittent difficult relationship with her mostly has not worked Substance History: Denies Trauma History: None noted Coding Level of Care Code Est Pt Level 4 (56872) Diagnoses Major depressive disorder, recurrent severe without psychotic features F33.2 POONAM (generalized anxiety disorder) F41.1 Psychotic depression F32.3
== END 2024-06-10 14:19 | disposition home or self-care (01) ==
LOC: HO.HOP 10:46
PROVIDERS: PCP Internal Medicine; Visit Provider Psychiatry & Neurology Psychiatry
DX: F33.2 Major depressive disorder, recurrent severe without psychotic features (principal); F41.1 Generalized anxiety disorder
CPT/HCPCS: 99214

== ENCOUNTER → 2024-06-10 10:46 | Outpatient (BNVA) | payer MEDICARE, SELFPAY | PROVIDERS: PCP Internal Medicine; Visit Provider Psychiatry & Neurology Psychiatry | DX: F33.2 Major depressive disorder, recurrent severe without psychotic features (principal); F41.1 Generalized anxiety disorder; F32.3 Major depressive disorder, single episode, severe with psychotic features | CPT/HCPCS: 99212 ==

== ENCOUNTER 2024-06-16 13:20 | Outpatient (AMB) | payer MEDICARE, SELFPAY ==
--- NOTE | 2024-06-16 14:02 | MHC.OFFVISPS ---
Intake Intake Visit Reasons: depression Allergies risperidone [From Risperdal] Allergy (Intermediate, Verified 11/04/23 12:53) UNKNOWN Sulfa (Sulfonamide Antibiotics) Allergy (Intermediate, Verified 11/04/23 12:53) rash From BENADRYL Allergy (Intermediate, Uncoded 11/04/23 12:53) DIZZY HPI- Psychiatric Chief Complaint: depression HPI Narrative: Patient seen psychiatric follow-up with her . Unfortunately the patient did not try using the light box despite much encouragement she has been lethargic a motivational during the day and complaining of poor sleep at night. Reportedly the patient has been taking Seroquel up to 200 mg bedtime mirtazapine had been lowered to 15 mg at bedtime. She denies experiencing thoughts of suicide but is quite depressed lethargic a motivational slowed mentation. She has been anxious and ruminating. Denies that she has been experiencing any auditory hallucinations or restorationist preoccupations since last seen. She on Rexulti had significant akathisia. She continues on Trintellix 20 mg she has been taking 300 mg gabapentin which was not effective in helping her sleep but again has been lying in bed much of the day not active not using light box. She does have a history of seasonal depression and was hospitalized about this time last year.. Past Psychiatric History: Patient with long history of recurrent depression with multiple prior psychiatric hospitalizations. 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 no classic bipolar symptoms past depressive psychotic episodes not for a number of years Mental Status Exam Mental Status Exam Narrative: Mental Status Exam Narrative: Appearance: Casually dressed somewhat disheveled Behavior: Cooperative appropriate psychomotor: Mild akathisia improved Speech: Normal volume and prosody Thought proccess logical and poverty of content Thought content: Patient focused on treatment focused on insomnia feeling depressed difficulty taking in information regarding light box Mood: Flat dysphoric Affect: Constricted SI:denies HI:denies VH/AH:none denies command hallucination Delusions: None Insight/judgment: Asking for help Memory/cog: Intact generally knows her medication brought outlines what she is taking that she suffers from depression some executive functioning and episodic memory difficulties ongoing Assessment and Plan Assessment & Plan (1) Major depressive disorder, recurrent severe without psychotic features: Status: Acute Code(s): F33.2 - Major depressive disorder, recurrent severe without psychotic features Plan Lower mirtazapine to 15 mg 30 mg were not effective for depression or helping with sleep gabapentin 300 mg at bedtime continue trazodone 50 mg at bedtime will try lorazepam 1 mg at bedtime patient does have cognitive impairment would try to limit use of benzodiazepines however despite quetiapine has not been able to sleep encourage light exposure and increase activity during the day. Discussed use of Vraylar 1.5 mg patient does seem to require over time despite cognitive impairment that does put her in higher category of side effects family aware patient aware patient has required antipsychotic augmentation for treatment depression. Could end up needing psychiatric hospitalization. She was much more alert and less cognitively slowed on Namenda in previous months. Would urge light exposure start Vraylar 1.5 mg daily monitor for akathisia and response. May need beta-theresa increased if needed. Consider ECT however patient has much harder time tolerating ECT than she has in the past. Did have TMS previously. Patient know to come to the emergency room patient has significant worsening. She does have VNA Medications: New Vraylar (cariprazine) 1.5 mg PO DAILY 30 caps 1RF NS Changed From mirtazapine 30 mg PO BEDTIME 30 days 30 tabs 2RF To mirtazapine 15 mg PO BEDTIME 30 tabs 1RF From gabapentin 200 mg (2 x 100 mg) PO BEDTIME 30 days 60 caps 2RF To gabapentin 300 mg (3 x 100 mg) PO BEDTIME 30 days 90 caps 2RF From trazodone 50 mg PO BEDTIME 90 days PRN 90 tabs 1RF Insomnia To trazodone 50 mg PO BEDTIME 90 days 90 tabs 1RF Insomnia From lorazepam 0.5 mg PO BID 30 days 60 tabs 2RF Anxiety To lorazepam 1 mg (2 x 0.5 mg) PO BEDTIME 30 days 60 tabs 2RF Anxiety Counseling and coordination of Care Details-Self Mgmt counseling: Urge behavioral activation light exposure Medication management counseling: Effectiveness, Side effects and Dosing range Diagnosis and Prognosis Counseling: Problematic behaviors secondary to diagnosis and Adequacy of current interventions Details: I spent [39] minutes reviewing the record, seeing the patient and documenting in the medical record. Counseling provided to the patient/caregiver as outlined below. Addressed patient/caregiver concerns regarding current medication regime including effective adherence. Addressed patient/caregiver concerns regarding diagnosis and prognosis including accuracy of diagnosis, prognosis over time, impact of diagnosis. Addressed patient/caregiver concerns regarding impact of recent stressors. [facility] Medical History (Updated 06/19/24 @ 19:58 by Broderick Willett MD) Dementia Nocturnal hypoxia Severe recurrent major depression w/psychotic features, mood-congruent Has daytime drowsiness Preoperative examination Elevated glucose Screening for colon cancer Screening for diabetes mellitus Obesity (BMI 30-39.9) Confused but orients easily Depression, major, severe recurrence Abnormal serum protein electrophoresis Mild recurrent major depression Anxiety and depression Encounter for Medicare annual wellness exam Removal of nell Depression with anxiety Abdominal distention Weight gain Major depression, recurrent, full remission POONAM (generalized anxiety disorder) Hypothyroidism Hyperparathyroidism Multinodular thyroid Vitamin D deficiency Osteoporosis Surgical History Hx of colonoscopy Hx of kyphoplasty Hx of section Family History Father Myocardial infarction CVD (cardiovascular disease) Mother Dementia Alzheimer disease Other Mental health disorder Social History Household Members: Spouse Housing: Apartment Do you presently have visiting nurse or other home services: No Alcohol intake: never Comment: 1:1 sitter at bedside Patient Tobacco Use Status: Never used Tobacco e-Cigarette/Vaping Use: Never Used Second Hand Smoke Exposure: No service: No Current occupational status: unemployed Sexual orientation: Straight/Heterosexual Cognitive needs: No Hearing needs: No Social History: Patient disabled has 1 son. Chronic anxiety has an intermittent difficult relationship with her mostly has not worked Substance History: Denies Trauma History: None noted Coding Level of Care Code Est Pt Level 3 (75088) Therapy 30m w/E&M (36524) Diagnoses Major depressive disorder, recurrent severe without psychotic features F33.2
--- OUTSIDE RECORDS SUMMARY | 2024-06-16 14:39 | XMS_ITS | Continuity of Care Document ---
Author Organization [place] [employer] [facility] Address [address] [address] Phone Care Team Providers Care Linotypist Name Role Phone Ananda SILO ERECTOR Liss Unavailable Unavailab le Allergies, Adverse Reactions, [...] Dr. Willett (psychiatry). Last filled 01/18/24 per [place], for quantity 60 (30 day supply if [...] - Active Per pre-enrollment, script per Dr. iWllett (psychiatry). Rexulti 0.5 mg tablet Take 1 [...] Diagnoses Date Provider Providers Copied on Encounter [facility], [address] [address], [place], [place], [id number], tel:[phone] [place] Recurrent major depressive disorder, in partial remissionGAD (generalized anxiety disorder) [address] [place], [place], [id number], [place]. tel:[phone] OFFICE/OUTPA TIENT VISIT [facility] [place], [address] [address], [place], [place], [id number], [place] tel:[phone] [place] Acute Visit (chief complaint) Genitourinary syndrome of menopause May- 4 [address] [place], [id number], [place]. tel:[phone] [facility], [address] [address], [place], [place], [id number], [place] tel:[phone] [place] No Information Apr- 4 [address] [place], [place], [id number], [place]. tel:[phone] OFFICE/OUTPA TIENT VISIT EST [facility], 1 [facility], [place], [place], [id number], [place] tel:[phone] [place] Follow-up (chief complaint) Shortness of breathRecurre nt major depressive disorder, in partial remissionGAD (generalized anxiety disorder)Inso mnia, unspecified type Apr-0 [address], [place], [place], [id number], [place]. tel:[phone] OFFICE/OUTPA TIENT VISIT EST [facility], [address] [facility], [place], [place], [id number], [place] tel:[phone] [place] Follow-up (chief complaint) Mixed hyperlipidemi aOsteoporosis without current pathological fracture, unspecified osteoporosis typeAdvanced directives, counseling/di scussion 7- 4 [address] [place], [place], [id number], [place]. tel:[phone] [facility], [address] [facility] [address] [facility], [place], [place], [id number], [place] tel:[phone] [place] Other specified personal risk factors, not elsewhere classifiedUns pecified visual disturbance Sep- 4 [address], [place], [place], [id number], [place]. tel:[phone] [facility], 1 [facility], [place], [place], [id number], [place] tel:[phone] [place] No Information Sep-06 10- 4 [address] [place], [place], [id number], [place]. tel:[phone] [facility], 1 [facility], [place], [place], [id number], [place] tel:[phone] [place] No Information Sep- 4 [address] [place], [place], [id number], [place]. tel:[phone] [facility], [address] [facility] [address] [facility], [place], [place], [id number], [place] tel:[phone] [place] Major depressive disorder, recurrent, in partial remission Sep-1 0- 4 [address] [place], [place], [id number], [place]. tel:[phone] [facility], 1 [facility], [place], [place], [id number], [place] tel:[phone] [place] Encounter for rehabilitatio n evaluation Sep-0 [address] [facility] [place], [id number], [place]. tel:[phone] [facility], 1 [facility], [place], [place], [id number], [place] tel:[phone] [place] Encounter for rehabilitatio n evaluation Feb-0 4 Gerardo Wilson. [address] [place], [address]. tel:[phone] [facility], 1 [facility], [place], [place], [id number], [place] tel:[phone] [place] Encounter for nutritional assessmentCla ss 1 obesity with serious comorbidity and body mass index (BMI) of 32.0 to 32.9 in adult, unspecified obesity typeBody mass index [BMI] 32.0-32.9, adult Feb-0 4 Normile [address]ena[address] [place], [place], [id number], [place]. tel:[phone] OFFICE/OUTPA TIENT VISIT EST [facility], 1 [facility], [place], [place], [id number], [place] tel:[phone] [place] Post Enrollment Evaluation (chief complaint) History of [...] type Feb-0 4 [address] [place], [place], [id number], [place]. tel:[phone] [facility], 1 [facility], [place], [place], [id number], tel:[phone] [place] No Information Frantz Brink. [address], [place], [place], [id number], . tel:[phone] Family History Family Member Type Diagnosis Age [...] Registry Payers Payer name Insurance type Covered democrat ID Tremaine stokes(s) [employer] 16 [id number] [employer] 16 [id number] [employer] 16 [id number] Social History Type Description Quantity Date Captured Comments Alcohol Use Details Unknown Caffeine Use Details Unknown Tobacco Use Status No Information Smoking Status No Information Sex Female Chief Complaint And Reason For Visit No Information Reason For Referral Reason For Referral No Information Plan Of Treatment Date Type Action Status Referral Ordered: Dentistry (related to Need for dental care) ordered Referral Ordered: Railroad Supervisor [employer] Engines (related to Visual changes) ordered Referral Ordered: Referrals: Dentistry. Evaluate and treat ordered Referral Ordered: Referrals: Railroad [employer]. Evaluate and treat ordered Referral Referred To: Dr. Willett Ordered: Referrals: Psychiatry. Dr. Willett Appointment date/timeframe: 02/16/2024 ordered Future Order: Lab Order Urinalys is, Macroscopic ([id number]), Ordered on: Ordered History Of Present Illness [...] today.History of ER visits/Falls/SNF/Hospitalizations:-05/25/23 -06/14/23: Inpatient at [facility]. No other hospitalizations, ER visits since then. -Before [facility], was on 5th floor x 1.5 years at [place] on their psychiatric unit. Then was for a few months on 1st floor in a unit x few months for psychiatric concerns. Specialists:-Dr. Fausto Willett at [facility]. Seeing him tomorrow. He is a [...] discussed with plan to complete form at [facility] follow up visit in 1 month. Social: Judy lives in the community in [place] with her , just the 2 of them. They have always lived in the area. They have family in [place] and [place]. Herve has a son and daughter from [...] they think possibly 1 year ago at [facility]. Bone density: Unclear when her last DEXA was. Not seen in pre-enrollment records from [facility]. Osteoporosis listed in her problem list with [...] [place], [place]. Admitted in early 2023 to [facility] with ???anxiety, racing thoughts, insomnia???. Underwent ECT [...] [place], [place]. Admitted in early 2023 to [place] with ???anxiety, racing thoughts, insomnia???. Underwent ECT [...] is possible however the history in the [facility] records suggests possible FARNAZ. Will explore [...] [place], [place]. Admitted in early 2023 to [place] with ???anxiety, racing thoughts, insomnia???. Underwent ECT [...] [place], [place]. Admitted in early 2023 to [facility] with ???anxiety, racing thoughts, insomnia???. Underwent ECT [...] medications, hypothyroidism. -Routine screening labs. Periodic weights. Manager Compliance to see her for screening and counseling if indicated. Related to BMI 32.0-32.9,adult -Per pre-enrollment (01/31/22 pg 30).-BMI 32.2 today. -Routine screening labs. Periodic weights. Manager Compliance to see her for screening and counseling [...] [place], [place]. Admitted in early 2023 to [facility] with ???anxiety, racing thoughts, insomnia???. Underwent ECT [...] Related to POONAM (generalized anxiety disorder) -At [facility] appt, patien t and spouse report [...] She did have parathyroid imaging in 03/2019 ([facility]) with results stating There is homogeneous [...] [place], [place]. Admitted in early 2023 to [place] with ???anxiety, racing thoughts, insomnia???. Underwent ECT [...] from breakdown for 6 months. Patient Goal Patient Care Teams Name Effective Dates (start - stop) Status Members No Information
--- OUTSIDE RECORDS SUMMARY | 2024-06-16 14:39 | XMS_ITS | Clinical Summary ---
Author Organization Unknown Care Team Providers Care Livestock Speculator Name Role Phone TAMEKA RODRIGUEZ, VITALY Unavailable Unavailable USMAN DONOHUE, FABIANO Unavailable Unavailable Payers Payer Name Policy Type Policy Number Effective Date Expira tion Date [facility] - [facility] [id number] MEDICAID [facility] [id number] MEDICARE - [facility] - [place] [id number] Problems Condition Name Condition Details Condition Category [...] 10 mg tablet 11-19 00:00: 00 Yes [id number] 10 mg BEDTIME 10 mg BEDTIME (route: oral) Med Classific ation: Cognitive Disorder Therapy folic acid 1 mg tablet 11-19 00:00: 00 Yes [id number] 1 mg DAILY 1 mg BECK Y (route: oral) Med Classific ation: Electroly te Balance-N utritiona l Products lorazepam 0.5 mg tablet 11-19 00:00: 00 Yes [id number] 0.5 mg 2 TIMES DAILY 0.5 mg 2 TIMES DAILY (route: oral) Med Classific ation: Central Nervous System Agents melatonin 5 mg capsule 11-19 00:00: 00 Yes [id number] 5 mg BEDTIME 5 mg BEDTIME (route: oral) Med Classific ation: Central Nervous System Agents memantine 10 mg tablet 11-19 00:00: 00 Yes [id number] 10 mg 2 TIMES DAILY 10 mg 2 TIMES DAILY (route: oral) Med Classific ation: Cognitive Disorder Therapy propranolol 10 mg tablet 11-19 00:00: 00 Yes [id number] 10 mg 3 TIMES DAILY 10 mg 3 TIMES DAILY (route: oral) Med Classific ation: Cardiovas cular Therapy Agents quetiapine 25 mg tablet 09-03 00:00: 00 11-19 00:00 :00 No [id number] 25 mg BEDTIME 25 mg BEDTIME (route: oral) Med Classific ation: Central Nervous System Agents quetiapine 25 mg tablet 09-03 00:00: 00 11-19 00:00 :00 No [id number] 25 mg BEDTIME 25 mg BEDTIME (route: oral) Med Classific ation: Central Nervous System Agents thiamine HCl (vitamin B1) 100 mg tablet 11-19 00:00: 00 Yes [id number] 100 mg DAILY 100 mg DAILY (route: oral) Med Classific ation: Electroly te Balance-N utritiona l Products trazodone 50 mg tablet 11-19 00:00: 00 Yes [id number] 50 mg BEDTIME 50 mg BEDTIME (route: oral) Med Classific ation: Central Nervous System Agents Trintellix 20 mg tablet 11-19 00:00: 00 Yes [id number] 20 mg DAILY 20 mg DAILY (route: oral) Med Classific ation: Central Nervous System Agents mirtazapine 15 mg tablet 10-22 00:00: 00 11-19 00:00 :00 No [id number] 1 tablet BEDTIME 1 tablet BEDTIME (route: oral) Med Classific ation: Central Nervous System Agents Rexulti 0.5 mg tablet 10-22 00:00: 00 11-19 00:00 :00 No [id number] 1 tablet DAILY 1 tablet DAILY (route: oral) Med Classific ation: Central Nervous System Agents ibuprofen 200 mg tablet 11-19 00:00: 00 Yes [id number] 1 tablet EVERY 6 HOURS 1 tablet EVERY 6 HOURS (route: oral) Med Classific ation: Analgesic , Anti-infl ammatory or Antipyret ic mirtazapine 30 mg tablet 11-19 00:00: 00 Yes [id number] 1 tablet BEDTIME 1 tablet BEDTIME (route: oral) Med Classific ation: Central Nervous System Agents quetiapine 50 mg tablet 11-19 00:00: 00 Yes [id number] 1 tablet BEDTIME 1 tablet BEDTIME (route: oral) Med Classific ation: Central Nervous System Agents Rexulti 1 mg tablet 11-19 00:00: 00 05-26 23:59 :00 No [id number] 1 tablet EVERY AM 1 tablet EVERY AM (route: oral) Med Classific ation: Central Nervous System Agents Rexulti 1 mg tablet 11-19 00:00: 00 Yes [id number] 0.5 tablet BEDTIME 0.5 tablet BEDTIME (route: [...] ation: COGNITIVE DISORDER THERAPY DONEPEZIL ORAL 2017-06 2- 00:00: 00 06-16 00:00 :00 No 5 [...] ation: CENTRAL NERVOUS SYSTEM AGENTS VRAYLAR ORAL 2 00:00: 00 08-15 00:00 :00 No 1.5 mg1 CAPSULE EVERY DAY 1.5 mg1 CAPSULE EVERY DAY (route: ) Med Classific ation: CENTRAL NERVOUS SYSTEM AGENTS Vital Signs Vital Name Observation Time Observation Value Commen ts Temperature 2024-06-12 21:56:00.000 97.6 [degF] Temperature 2024-05-31 16:10:00.000 97.8 [degF] Pulse 2024-06-12 21:56:00.000 84 /min Pulse 2024-05-31 16:10:00.000 72 /min Respirations 2024-06-12 21:56:00.000 18 /min Respirations 2024-05-31 16:10:00.000 18 /min Systolic Blood Pressure 2024-06-12 21:56:00.000 112 mm [Hg] Systolic Blood Pressure 2024-05-31 16:10:00.000 119 mm [Hg] Diastolic Blood Pressure 2024-06-12 21:56:00.000 68 mm [Hg] Diastolic Blood Pressure 2024-05-31 16:10:00.000 [...] AWARENESS FOR SAFETY AND WILL NOTIFY CLINICAL SERVOMECHANISM ASSEMBLER AND PHYSICIAN/PROVIDER WITH ANY CHANGE IN CONDITION. [code = SKILLED NURSE WILL MAINTAIN SITUATIONAL AWARENESS FOR SAFETY AND WILL NOTIFY CLINICAL SERVOMECHANISM ASSEMBLER AND PHYSICIAN/PROVIDER WITH ANY CHANGE IN CONDITION.] [...] CARE WILL BE ESTABLISHED THAT MEETS PATIENT'S HALF-WAY NEEDS AND INCLUDES PATIENT GOAL FOR HOME [...] End Date/Time Encounter Type Admission Type Attending [facility] Facility Care Department Encounter ID Discharge Date Discharge Status Discharge Condition Discharge Reason Percent Goals Met 2023-11-20 00:00:00 2024-07-16 00:00:00 Outpatient RECERTIFIC ATION [facility] [id number] 56.25
== END 2024-06-16 14:04 | disposition home or self-care (01) ==
LOC: HO.HOP 13:20
PROVIDERS: PCP Internal Medicine; Visit Provider Psychiatry & Neurology Psychiatry
DX: F33.2 Major depressive disorder, recurrent severe without psychotic features (principal)
CPT/HCPCS: 90833; 99213

== ENCOUNTER → 2024-06-16 13:20 | Outpatient (BNVA) | payer MEDICARE, SELFPAY | PROVIDERS: PCP Internal Medicine; Visit Provider Psychiatry & Neurology Psychiatry | DX: F33.2 Major depressive disorder, recurrent severe without psychotic features (principal) | CPT/HCPCS: 99212 ==

== ENCOUNTER 2024-07-04 14:01 | Inpatient (IN) | payer MEDICARE, SELFPAY ==
[2024-07-04 14:14] VITALS: BP 105/58; PULSE 84; RESP 18; TEMP 36.3; O2SAT 94; BMI 35.3
--- NOTE | 2024-07-04 14:15 | ED_ITS ---
HPI - General Adult General Chief complaint: Psychiatric Symptoms Stated complaint: crisis Time Seen by Provider: 07/04/24 14:54 Related Data Previous Rx's ?Medication ?Instructions ?Recorded memantine 10 mg tablet 10 mg PO BID 90 days #180 tabs 09/01/23 donepezil 10 mg tablet 10 mg PO BEDTIME 30 days #30 tabs 01/05/24 propranolol 10 mg tablet 10 mg PO TID 90 days #270 tabs 03/30/24 thiamine mononitrate (vit B1) 100 100 mg PO BID #60 tabs 04/26/24 mg tablet quetiapine 25 mg tablet (Seroquel) 25 mg PO DAILY PRN anxiety #30 tabs 06/06/24 Vraylar 1.5 mg capsule 1.5 mg PO DAILY #30 caps 06/16/24 (cariprazine) gabapentin 100 mg capsule 300 mg (3 x 100 mg) PO BEDTIME 30 06/16/24 days #90 caps lorazepam 0.5 mg tablet 1 mg (2 x 0.5 mg) PO BEDTIME 06/16/24 Anxiety 30 days #60 tabs mirtazapine 15 mg tablet 15 mg PO BEDTIME #30 tabs 06/16/24 trazodone 50 mg tablet 50 mg PO BEDTIME Insomnia 90 days 06/16/24 #90 tabs Allergies Allergy/AdvReac Type Severity Reaction Status Date / Time risperidone [From Risperdal] Allergy Intermediate UNKNOWN Verified 07/04/24 14:15 Sulfa (Sulfonamide Allergy Intermediate rash Verified 07/04/24 14:15 Antibiotics) From BENADRYL Allergy Intermediate DIZZY Uncoded 11/04/23 12:53 PMFSH Past Medical History Medical History Dementia Nocturnal hypoxia Severe recurrent major depression w/psychotic features, mood-congruent Has daytime drowsiness Preoperative examination Elevated glucose Screening for colon cancer Screening for diabetes mellitus Obesity (BMI 30-39.9) Confused but orients easily Depression, major, severe recurrence Abnormal serum protein electrophoresis Mild recurrent major depression Anxiety and depression Encounter for Medicare annual wellness exam Removal of nell Depression with anxiety Abdominal distention Weight gain Major depression, recurrent, full remission POONAM (generalized anxiety disorder) Hypothyroidism Hyperparathyroidism Multinodular thyroid Vitamin D deficiency Osteoporosis Surgical History Hx of colonoscopy Hx of kyphoplasty Hx of section Family History Family History Father Myocardial infarction CVD (cardiovascular disease) Mother Dementia Alzheimer disease Other Mental health disorder Social History Social History Household Members: Spouse Housing: House Do you presently have visiting nurse or other home services: Yes (come once a week to fill medication) Alcohol intake: never Comment: 1:1 sitter at bedside Patient Tobacco Use Status: Never used Tobacco Smoked in Last 30 Days: No e-Cigarette/Vaping Use: Never Used Second Hand Smoke Exposure: No Use of substances other than those prescribed or required for medical reasons: No Currently Displaying Signs/Symptoms of Drug Intoxication Withdrawal: No Any prior treatment program specific to substance use: No Have you been hit, kicked, punched, or otherwise hurt by someone within the past year? If so, by whom?: No Do you feel safe in your current relationship?: Yes Is there a partner from a previous relationship who is making you feel unsafe now?: No Are you made to feel afraid or neglected: No Advance Directives: Yes Advance Directives on File: Yes Advance Directives Date on File: 09/04/23 Do you have thoughts of harming others: None Do you have a plan to hurt others: No Plan Recently lost weight without trying: No How much weight loss: Not applicable Eating poorly because of decreased appetite: Yes Nutrition screen score: 1 Nutrition Risks: No Nutritional Risk Patient : No : No Poor oral hygiene: No service: No Current occupational status: unemployed Sexual orientation: Straight/Heterosexual Cognitive needs: No Hearing needs: No Physical Exam ED Vital Signs: Vital Signs - 24 hr 07/04/24 14:14 07/04/24 17:54 Temperature 97.4 F 98.2 F Pulse Rate 84 70 Respiratory Rate 18 13 Blood Pressure 105/58 L 107/56 L Pulse Oximetry 94 96 Oxygen Delivery Method Room Air Room Air BMI result Body Mass Index 35.3 Course Course Course Narrative: RME performed by Homa Pompa PA-C. Patient is a 73 year old assigned female at presenting to the emergency department for direct admission by Dr. Willett. Patient states she spoke to the psychiatrist today and she was told to come here to be admitted to the unit. Detailed physical exam and review of systems are deferred to the stripper black and white. EKG and labs ordered for clearance. director of sports medicine aware. Patient seen and dispositioned by Dr. Gresham. Please refer to his note from 07/04/2024. Medications Administered Generic Name Dose Route Start Last Admin Trade Name Freq PRN Reason Stop Dose Admin Cariprazine 1.5 mg 07/05/24 09:00 07/05/24 08:56 Cariprazine Hcl 1.5 Mg Capsule PO 1.5 mg DAILY BARRY Administration Donepezil HCl 10 mg 07/04/24 21:00 07/04/24 22:41 Donepezil Hcl 10 Mg Tablet PO 10 mg BEDTIME BARRY Administration Gabapentin 300 mg 07/04/24 21:00 07/04/24 22:39 Gabapentin 300 Mg Capsule PO 300 mg BEDTIME BARRY Administration Lorazepam 1 mg 07/04/24 21:00 07/04/24 22:40 Lorazepam 1 Mg Tablet PO 1 mg BEDTIME BARRY Administration Memantine 10 mg 07/04/24 21:00 07/05/24 08:56 Memantine Hcl 10 Mg Tablet PO 10 mg BID BARRY Administration Mirtazapine 15 mg 07/04/24 21:00 07/04/24 22:40 Mirtazapine 15 Mg Tablet PO 15 mg BEDTIME BARRY Administration Propranolol HCl 10 mg 07/04/24 21:00 07/05/24 08:57 Propranolol Hcl 10 Mg Tablet PO Not Given TID BARRY Protocol Quetiapine Fumarate 25 mg 07/04/24 16:25 07/04/24 22:40 Quetiapine Fumarate 25 Mg Tablet PO 25 mg DAILY PRN Administration anxiety Thiamine HCl 100 mg 07/04/24 21:00 07/05/24 08:56 Thiamine Hcl 100 Mg Tablet PO 100 mg BID BARRY Administration Trazodone HCl 50 mg 07/04/24 21:00 07/05/24 01:34 Trazodone Hcl 50 Mg Tablet PO 50 mg BEDTIME BARRY Administration Medical Decision Making Lab Data 07/04/24 15:45 07/04/24 21:59 Labs: Lab Results 07/04/24 Range/Units 15:45 WBC 8.3 (4.8-10.8) X10*3/uL RBC 4.73 (4.20-5.50) X10*6/uL Hgb 14.2 (12.0-16.0) g/dl Hct 44.5 (37.0-47.0) % MCV 94.1 (80.0-98.0) fL MCH 30.0 (27.0-33.0) pg MCHC 31.9 (31.0-35.0) g/dl RDW 14.6 (11.0-16.0) % Plt Count 248 (160-400) X10*3/uL MPV 10.7 (9.4-12.3) fL Immature Gran % (Auto) 0.4 (0.0-0.4) % Neut % (Auto) 74.1 H (45-73) % Lymph % (Auto) 16.7 L (20-40) % [place] % (Auto) 7.0 (2-11) % Eos % (Auto) 1.2 (0-4) % Baso % (Auto) 0.6 (0-2) % Lymph # (Auto) 1.4 (1.2-4.9) X10*3/uL [place] # (Auto) 0.6 (0.1-1.2) X10*3/uL Eos # (Auto) 0.1 (0.0-0.4) X10*3/uL Baso # (Auto) 0.1 (0.0-0.2) X10*3/uL Abs Immat Gran (auto) 0.03 (0.00-0.03) X10*3/uL Absolute Neuts (auto) 6.2 (2.0-8.3) x10*3/uL Absolute Nucleated RBC 0.000 (0.0-0.012) X10*3/uL Nucleated RBC % (auto) 0.0 (0.0-0.2) /100WBC Sodium 141 (135-145) mmol/L Potassium 4.4 (3.3-5.1) mmol/L Chloride 107 (96-108) mmol/L Carbon Dioxide 28 (22-29) mmol/L Anion Gap 10 L (12-20) BUN 12 (9-16) mg/dL Creatinine 0.99 (0.5-1.4) mg/dL Estim Creat Clear Calc 46.8 Estimated GFR 55 Random Glucose 100 (60-115) mg/dL Calcium 9.5 D (8.4-10.2) mg/dL Total Bilirubin 0.6 (0.0-1.0) mg/dL AST 25 (5-31) U/L ALT 23 (0-31) U/L Alkaline Phosphatase 83 (39-117) U/L Total Protein 7.1 (6.5-8.0) g/dL Albumin 3.5 (3.5-5.0) g/dL Salicylates < 5.0 L (15-30) mg/dL Acetaminophen < 3 (<30) mcg/mL Ethyl Alcohol < 10 mg/dL COVID-19 (EMILIANA) Positive A (Negative) COVID-19 Clin Com See Note Discharge Plan Discharge Clinical Impression: Depression Patient Disposition: Admitted As Inpatient Interventions: Admission Worksheet (ED) Last Done: 07/04/24 21:25 Discharge Date/Time: 07/04/24 21:27
--- NOTE | 2024-07-04 14:15 | ECG_ITS ---
Test Reason : MEDICAL CLEARANCE Blood Pressure : */* mmHG Vent. Rate : 68 BPM Atrial Rate : 68 BPM P-R Int : 152 ms QRS Dur : 72 ms QT Int : 382 ms P-R-T Axes : 37 23 39 degrees QTcB Int : 406 ms Normal sinus rhythm Normal ECG When compared with ECG of 04-Nov-2023 14:13, T wave inversion no longer evident in Anterior leads Referred By: Homa Pompa Electronically Signed By: ELISE WEI
--- NOTE | 2024-07-04 14:58 | ED.PSYCH ---
HPI - Psych General Chief Complaint: Psychiatric Symptoms Stated Complaint: crisis Time Seen by Provider: 07/04/24 14:54 Source: EMS Limitations: no limitations History of Present Illness HPI Narrative: This is a 73 years old patient with history of depression history of prior psychiatric hospitalization history of some dementia presented to the emergency department because she is decompensating at home she is now sleeping more depressed. Family spoke with the psychiatric and she was told to come to the emergency room department for psychiatric evaluation. Patient is followed by Dr. Fausto Willett. complaint: feels depressed Onset (ago): week(s) Duration: constant History of same: Yes Relieving factors: none Exacerbating factors: none Associated psychiatric symptoms: depression and racing thoughts Related Data Previous Rx's ?Medication ?Instructions ?Recorded folic acid 1 mg tablet 1 mg PO DAILY #90 tabs 09/01/23 ibuprofen 200 mg tablet 200 mg PO Q6H PRN Pain, 09/01/23 Moderate(Pain Scale 4-6) #90 tabs memantine 10 mg tablet 10 mg PO BID 90 days #180 tabs 09/01/23 mirtazapine 30 mg tablet 30 mg PO BEDTIME 30 days #30 tabs 11/19/23 vortioxetine 20 mg tablet 20 mg PO DAILY@1730 90 days #90 11/19/23 (Trintellix) tabs donepezil 10 mg tablet 10 mg PO BEDTIME 30 days #30 tabs 01/05/24 melatonin 5 mg capsule 5 mg PO BEDTIME #30 caps 01/05/24 propranolol 10 mg tablet 10 mg PO TID 90 days #270 tabs 03/30/24 thiamine mononitrate (vit B1) 100 100 mg PO BID #60 tabs 04/26/24 mg tablet quetiapine 25 mg tablet (Seroquel) 25 mg PO DAILY PRN anxiety #30 tabs 06/06/24 quetiapine 50 mg tablet 100 mg (2 x 50 mg) PO BEDTIME 30 06/06/24 days #60 tabs Vraylar 1.5 mg capsule 1.5 mg PO DAILY #30 caps 06/16/24 (cariprazine) gabapentin 100 mg capsule 300 mg (3 x 100 mg) PO BEDTIME 30 06/16/24 days #90 caps lorazepam 0.5 mg tablet 1 mg (2 x 0.5 mg) PO BEDTIME 06/16/24 Anxiety 30 days #60 tabs mirtazapine 15 mg tablet 15 mg PO BEDTIME #30 tabs 06/16/24 trazodone 50 mg tablet 50 mg PO BEDTIME Insomnia 90 days 06/16/24 #90 tabs Allergies Allergy/AdvReac Type Severity Reaction Status Date / Time risperidone [From Risperdal] Allergy Intermediate UNKNOWN Verified 07/04/24 14:15 Sulfa (Sulfonamide Allergy Intermediate rash Verified 07/04/24 14:15 Antibiotics) From BENADRYL Allergy Intermediate DIZZY Uncoded 11/04/23 12:53 Review of Systems Constitutional: Constitutional: Denies fever(s) Cardiovascular: Cardiovascular: Reports no additional cardiovascular complaints Gastrointestinal: Gastrointestinal: Denies diarrhea and Denies vomiting PMFSH Past Medical History Attestation statement: The following information was validated with the patient. Source: unable to obtain Medical History Dementia Nocturnal hypoxia Severe recurrent major depression w/psychotic features, mood-congruent Has daytime drowsiness Preoperative examination Elevated glucose Screening for colon cancer Screening for diabetes mellitus Obesity (BMI 30-39.9) Confused but orients easily Depression, major, severe recurrence Abnormal serum protein electrophoresis Mild recurrent major depression Anxiety and depression Encounter for Medicare annual wellness exam Removal of nell Depression with anxiety Abdominal distention Weight gain Major depression, recurrent, full remission POONAM (generalized anxiety disorder) Hypothyroidism Hyperparathyroidism Multinodular thyroid Vitamin D deficiency Osteoporosis Surgical History Hx of colonoscopy Hx of kyphoplasty Hx of section Family History Family History Father Myocardial infarction CVD (cardiovascular disease) Mother Dementia Alzheimer disease Other Mental health disorder Social History Social History Household Members: Spouse Housing: Apartment Do you presently have visiting nurse or other home services: No Alcohol intake: never Comment: 1:1 sitter at bedside Patient Tobacco Use Status: Never used Tobacco e-Cigarette/Vaping Use: Never Used Second Hand Smoke Exposure: No Advance Directives: Yes Advance Directives on File: Yes Advance Directives Date on File: 09/04/23 Do you have a plan to hurt others: No Plan service: No Current occupational status: unemployed Sexual orientation: Straight/Heterosexual Cognitive needs: No Hearing needs: No Physical Exam Vital Signs: Vital Signs: Last Vital Signs Temp 97.4 F 07/04/24 14:14 Pulse 84 07/04/24 14:14 Resp 18 07/04/24 14:14 BP 105/58 L 07/04/24 14:14 Pulse Ox 94 07/04/24 14:14 O2 Del Method Room Air 07/04/24 14:14 BMI result Body Mass Index 35.3 She looks well she is not toxic she is afebrile Const: General: cooperative Nutritional Appearance: average body habitus Orientation/consciousness: patient oriented x3 Limitations: no limitations HEENT: Head: Yes normal to inspection General nose exam: Normal external nose present Face and sinus: Yes normal facial exam Mouth: Normal oral and palatal mucosa present Throat: Yes posterior oropharynx normal Neck: Neck: Yes normal visual inspection and Yes full ROM Chest: Chest palpation & inspection: normal inspection of the chest Resp: Effort & Inspection: normal respiratory effort Auscultation: clear to auscultation bilaterally Cardio: Jugular venous distension: no JVD Rate: regular rate Rhythm: regular rhythm GI: Inspection: Yes normal to inspection Palpation (GI): Soft to palpation, not firm and nontender Skin: General skin exam: no rashes or lesions noted, elasticity normal and turgor normal Neuro: General: patient oriented x3 Cranial nerves: Yes CN's II-XII intact bilaterally Course Reevaluation(s) Reevaluation #1: Signed out to Dr Rivera Time: 16:27 Medical Decision Making Medical Decision Making [facility] Narrative: Patient here for psychiatric decompensation we consult care team check labs/UA Differential Diagnosis Differential Diagnoses: The differential diagnosis associated with the presentation includes Major depression/anxiety Admission/Observation Consideration of admission/observation: Escalation of care including admission/observation considered Lab Data 07/04/24 15:45 07/04/24 15:45 Labs: Lab Results 07/04/24 Range/Units 15:45 WBC 8.3 (4.8-10.8) X10*3/uL RBC 4.73 (4.20-5.50) X10*6/uL Hgb 14.2 (12.0-16.0) g/dl Hct 44.5 (37.0-47.0) % MCV 94.1 (80.0-98.0) fL MCH 30.0 (27.0-33.0) pg MCHC 31.9 (31.0-35.0) g/dl RDW 14.6 (11.0-16.0) % Plt Count 248 (160-400) X10*3/uL MPV 10.7 (9.4-12.3) fL Immature Gran % (Auto) 0.4 (0.0-0.4) % Neut % (Auto) 74.1 H (45-73) % Lymph % (Auto) 16.7 L (20-40) % [place] % (Auto) 7.0 (2-11) % Eos % (Auto) 1.2 (0-4) % Baso % (Auto) 0.6 (0-2) % Lymph # (Auto) 1.4 (1.2-4.9) X10*3/uL [place] # (Auto) 0.6 (0.1-1.2) X10*3/uL Eos # (Auto) 0.1 (0.0-0.4) X10*3/uL Baso # (Auto) 0.1 (0.0-0.2) X10*3/uL Abs Immat Gran (auto) 0.03 (0.00-0.03) X10*3/uL Absolute Neuts (auto) 6.2 (2.0-8.3) x10*3/uL Absolute Nucleated RBC 0.000 (0.0-0.012) X10*3/uL Nucleated RBC % (auto) 0.0 (0.0-0.2) /100WBC Sodium 141 (135-145) mmol/L Potassium 4.4 (3.3-5.1) mmol/L Chloride 107 (96-108) mmol/L Carbon Dioxide 28 (22-29) mmol/L Anion Gap 10 L (12-20) BUN 12 (9-16) mg/dL Creatinine 0.99 (0.5-1.4) mg/dL Estim Creat Clear Calc 46.8 Estimated GFR 55 Random Glucose 100 (60-115) mg/dL Calcium 9.5 D (8.4-10.2) mg/dL Total Bilirubin 0.6 (0.0-1.0) mg/dL AST 25 (5-31) U/L ALT 23 (0-31) U/L Alkaline Phosphatase 83 (39-117) U/L Total Protein 7.1 (6.5-8.0) g/dL Albumin 3.5 (3.5-5.0) g/dL Salicylates < 5.0 L (15-30) mg/dL Acetaminophen < 3 (<30) mcg/mL Ethyl Alcohol < 10 mg/dL COVID-19 (EMILIANA) Positive A (Negative) COVID-19 Clin Com See Note Discharge Plan Discharge Clinical Impression: Depression Qualifiers: Depression Type: unspecified Qualified Code(s): F32.A - Depression, unspecified Patient Disposition: Still a Patient Prescriptions: No Action donepezil 10 mg tablet 10 mg PO BEDTIME 30 Days Qty: 30 5RF melatonin 5 mg capsule 5 mg PO BEDTIME Qty: 30 5RF propranolol 10 mg tablet 10 mg PO TID 90 Days Qty: 270 1RF Protocol: Hold for SBP/HR < HOLD for SBP < : 90 HOLD for HR < : 60 thiamine mononitrate (vit B1) 100 mg tablet 100 mg PO BID Qty: 60 3RF quetiapine 50 mg tablet 100 mg PO BEDTIME 30 Days Qty: 60 3RF quetiapine [Seroquel] 25 mg tablet 25 mg PO DAILY PRN (Reason: anxiety) Qty: 30 1RF ibuprofen 200 mg Tablet 200 mg PO Q6H PRN (Reason: Pain, Moderate(Pain Scale 4-6)) Qty: 90 2RF memantine 10 mg Tablet 10 mg PO BID 90 Days Qty: 180 1RF folic acid 1 mg tablet 1 mg PO DAILY Qty: 90 1RF mirtazapine 30 mg Tablet 30 mg PO BEDTIME 30 Days Qty: 30 2RF Trintellix 20 mg Tablet 20 mg PO DAILY@1730 90 Days Qty: 90 1RF mirtazapine 15 mg tablet 15 mg PO BEDTIME Qty: 30 1RF Vraylar 1.5 mg capsule 1.5 mg PO DAILY Qty: 30 1RF trazodone 50 mg tablet 50 mg PO BEDTIME 90 Days Qty: 90 1RF gabapentin 100 mg capsule 300 mg PO BEDTIME 30 Days Qty: 90 2RF lorazepam 0.5 mg tablet 1 mg PO BEDTIME 30 Days Qty: 60 2RF Print Language: [place]
[2024-07-04 15:51] LABS: MANUAL DIFF FLAG NO
[2024-07-04 15:54] LABS: Basophils Absolute Auto 0.1 X10*3/uL (0.0-0.2); Basophils Percent Auto 0.6 % (0-2); Eosinophils Absolute Auto 0.1 X10*3/uL (0.0-0.4); Eosinophils Percent Auto 1.2 % (0-4); Hematocrit 44.5 % (37.0-47.0); Hemoglobin 14.2 g/dl (12.0-16.0); Imm Gran Abs Auto 0.03 X10*3/uL (0.00-0.03); Imm Gran Pct Auto 0.4 % (0.0-0.4); Lymphocytes Absolute Auto 1.4 X10*3/uL (1.2-4.9); Lymphocytes Percent Auto 16.7 % (20-40); Mean Corpuscular HGB Conc 31.9 g/dl (31.0-35.0); Mean Corpuscular Volume 94.1 fL (80.0-98.0); Mean Platelet Volume 10.7 fL (9.4-12.3); Monocytes Absolute Auto 0.6 X10*3/uL (0.1-1.2); Neutrophils Absolute Auto 6.2 x10*3/uL (2.0-8.3); Neutrophils Percent Auto 74.1 % (45-73); Platelet Count 248 X10*3/uL (160-400); Red Blood Count 4.73 X10*6/uL (4.20-5.50); Red Cell Distribution Width 14.6 % (11.0-16.0); White Blood Count 8.3 X10*3/uL (4.8-10.8)
[2024-07-04 16:06] LABS: IDNOW Serial# 58CA691E
[2024-07-04 16:07] LABS: Alanine Aminotransferase 23 U/L (0-31); Albumin Level 3.5 g/dL (3.5-5.0); Alkaline Phosphatase 83 U/L (39-117); Anion Gap 10 (12-20); Aspartate Amino Transferase 25 U/L (5-31); Bilirubin Total 0.6 mg/dL (0.0-1.0); Blood Urea Nitrogen 12 mg/dL (9-16); COVID-19 Test Positive (Negative); Calcium 9.5 mg/dL (8.4-10.2); Carbon Dioxide 28 mmol/L (22-29); Chloride 107 mmol/L (96-108); Creatinine Clr Calc Pharmacy 46.8; Estimated Glomerular Filt Rate 55; Ethanol < 10 mg/dL; Glucose Random 100 mg/dL (60-115); Potassium 4.4 mmol/L (3.3-5.1); Sodium 141 mmol/L (135-145); Total Protein 7.1 g/dL (6.5-8.0)
[2024-07-04 16:10] LABS: Acetaminophen LAB < 3 mcg/mL (<30); Salicylate < 5.0 mg/dL (15-30)
[2024-07-04 17:54] VITALS: BP 107/56; PULSE 70; RESP 13; TEMP 36.8; O2SAT 96
--- OUTSIDE RECORDS SUMMARY | 2024-07-04 19:05 | XMS_ITS | Clinical Summary ---
Author Organization Unknown Care Team Providers Care Marketing Research Intern Name Role Phone TAMEKA RODRIGUEZ, VITALY Unavailable Unavailable USMAN DONOHUE, FABIANO Unavailable Unavailable Payers Payer Name Policy Type Policy Number Effective Date Expira tion Date [facility] C[facility] PL[facility] - [facility] [id number] MEDICAID [facility] [id number] MEDICARE - [facility] - [facility] [id number] Problems Condition Name Condition Details Condition Category [...] 10 mg tablet 11-19 00:00: 00 Yes [id number] 10 mg BEDTIME 10 mg BEDTIME (route: oral) Med Classific ation: Cognitive Disorder Therapy folic acid 1 mg tablet 11-19 00:00: 00 Yes [id number] 1 mg DAILY 1 mg BECK Y (route: oral) Med Classific ation: Electroly te Balance-N utritiona l Products lorazepam 0.5 mg tablet 11-19 00:00: 00 06-21 23:59 :00 No [id number] 0.5 mg 2 TIMES DAILY 0.5 mg 2 TIMES DAILY (route: oral) Med Classific ation: Central Nervous System Agents melatonin 5 mg capsule 11-19 00:00: 00 Yes [id number] 5 mg BEDTIME 5 mg BEDTIME (route: oral) Med Classific ation: Central Nervous System Agents memantine 10 mg tablet 11-19 00:00: 00 Yes [id number] 10 mg 2 TIMES DAILY 10 mg 2 TIMES DAILY (route: oral) Med Classific ation: Cognitive Disorder Therapy propranolol 10 mg tablet 11-19 00:00: 00 Yes [id number] 10 mg 3 TIMES DAILY 10 mg 3 TIMES DAILY (route: oral) Med Classific ation: Cardiovas cular Therapy Agents quetiapine 25 mg tablet 09-03 00:00: 00 11-19 00:00 :00 No [id number] 25 mg BEDTIME 25 mg BEDTIME (route: oral) Med Classific ation: Central Nervous System Agents quetiapine 25 mg tablet 09-03 00:00: 00 11-19 00:00 :00 No [id number] 25 mg BEDTIME 25 mg BEDTIME (route: oral) Med Classific ation: Central Nervous System Agents thiamine HCl (vitamin B1) 100 mg tablet 11-19 00:00: 00 Yes [id number] 100 mg DAILY 100 mg DAILY (route: oral) Med Classific ation: Electroly te Balance-N utritiona l Products trazodone 50 mg tablet 11-19 00:00: 00 Yes [id number] 50 mg BEDTIME 50 mg BEDTIME (route: oral) Med Classific ation: Central Nervous System Agents Trintellix 20 mg tablet 11-19 00:00: 00 06-21 23:59 :00 No [id number] 20 mg DAILY 20 mg DAILY (route: oral) Med Classific ation: Central Nervous System Agents mirtazapine 15 mg tablet 10-22 00:00: 00 11-19 00:00 :00 No [id number] 1 tablet BEDTIME 1 tablet BEDTIME (route: oral) Med Classific ation: Central Nervous System Agents Rexulti 0.5 mg tablet 10-22 00:00: 00 11-19 00:00 :00 No [id number] 1 tablet DAILY 1 tablet DAILY (route: oral) Med Classific ation: Central Nervous System Agents ibuprofen 200 mg tablet 11-19 00:00: 00 06-21 23:59 :00 No [id number] 1 tablet EVERY 6 HOURS 1 tablet EVERY 6 HOURS (route: oral) Med Classific ation: Analgesic , Anti-infl ammatory or Antipyret ic mirtazapine 30 mg tablet 11-19 00:00: 00 Yes [id number] 1 tablet BEDTIME 1 tablet BEDTIME (route: oral) Med Classific ation: Central Nervous System Agents quetiapine 50 mg tablet 11-19 00:00: 00 06-21 23:59 :00 No [id number] 1 tablet BEDTIME 1 tablet BEDTIME (route: oral) Med Classific ation: Central Nervous System Agents Rexulti 1 mg tablet 11-19 00:00: 00 05-26 23:59 :00 No [id number] 1 tablet EVERY AM 1 tablet EVERY AM (route: oral) Med Classific ation: Central Nervous System Agents Rexulti 1 mg tablet 11-19 00:00: 00 06-21 23:59 :00 No [id number] 0.5 tablet BEDTIME 0.5 tablet BEDTIME (route: oral) Med Classific ation: Central Nervous System Agents atorvastati n 20 mg tablet 06-21 00:00: 00 Yes [id number] 1 tablet BEDTIME 1 tablet BEDTIME (route: oral) Med Classific ation: Cardiovas cular Therapy Agents lorazepam 1 mg tablet 06-21 00:00: 00 Yes [id number] 1 mg BEDTIME 1 mg BEDTIME (route: oral) Med Classific ation: Central Nervous System Agents quetiapine 200 mg tablet 06-21 00:00: 00 Yes [id number] 200 mg BEDTIME 200 mg BEDTIME (route: oral) Med Classific ation: Central Nervous System Agents Trintellix 20 mg tablet 06-21 00:00: 00 Yes [id number] 1 tablet EVERY AM 1 tablet EVERY AM (route: oral) Med Classific ation: Central Nervous System Agents gabapentin 300 mg capsule 06-21 00:00: 00 Yes [id number] 1 capsule BEDTIME 1 capsule BEDTIME (route: oral) Med Classific ation: Central Nervous System Agents ondansetron HCl 4 mg tablet 1-14 00:00: 00 Yes [id number] 1 tablet EVERY 8 HOURS 1 tablet EVERY 8 HOURS (route: oral) Med Classific ation: Gastroint estinal Therapy Agents MELATONIN ORAL 01-01 00:00: 00 01-31 [...] BALANCE-N UTRITIONA L PRODUCTS VITAMIN B-12 ORAL 9-05 00:00: 00 03-12 00:00 :00 No 1,000 [...] ANTIPYRET IC CYANOCOBALA MIN (VITAMIN B-12) ORAL 08 00:00: 00 08-15 00:00 :00 No 1,000 mcg1 TABLET EVERY DAY 1,000 mcg1 TABLET EVERY DAY (route: ) Med Classific ation: ELECTROLY TE BALANCE-N UTRITIONA L PRODUCTS ALENDRONATE ORAL 2-08 00:00: 00 08-13 00:00 :00 No 70 mg1 TABLET [...] UTRITIONA L PRODUCTS VITAMIN B-1 ORAL 2017-06 00:00: 04-09 00:00 :00 No 100 mg1 TABLET [...] ation: CENTRAL NERVOUS SYSTEM AGENTS QUETIAPINE ORAL 02-10 00:00: 03-12 00:00 :00 No 50 mg1 TABLET AT BEDTIME 50 mg1 TABLET AT BEDTIME (route: ) Med Classific ation: CENTRAL NERVOUS SYSTEM AGENTS VENLAFAXINE ORAL 01-01 00:00: 00 01-31 00:00 :00 No 150 mg1 CAPSULE EVERY 150 mg1 CAPSULE EVERY (route: ) Alternate Route: BY MOUTH . Med Classific ation: CENTRAL NERVOUS SYSTEM AGENTS LIOTHYRONIN E ORAL 2017-06 00:00: 00 06-16 00:00 :00 No 25 mcg1/2 TABLET EVERY DAY FOR ONE WEEK LET EVERY 25 mcg1/2 TABLET EVERY DAY FOR ONE WEEK LET EVERY (route: ) Alternate Route: BY MOUTH . Med Classific ation: ENDOCRINE LIDOCAINE TOPICAL 208 00:00: 08-15 00:00 :00 No 5 %1 PATCH LEAVE ON FOR 12 HOURS AND OFF FOR 12 HOURS 5 %1 PATCH LEAVE ON FOR 12 HOURS AND OFF FOR 12 HOURS (route: ) Alternate Route: TO SKIN . Med Classific ation: ANESTHETI CS DOXEPIN ORAL 2017-06 00:00: 00 07-04 00:00 :00 No 25 mg1 CAPSULE EVERYDAY AT BEDTIME 25 mg1 CAPSULE EVERYDAY AT BEDTIME (route: ) Alternate Route: BY MOUTH . Med Classific ation: CENTRAL NERVOUS SYSTEM AGENTS TEMAZEPAM ORAL 22 00:00: 00 09-06 00:00 :00 No 15 [...] ation: CENTRAL NERVOUS SYSTEM AGENTS ZOLPIDEM ORAL 07-16 00:00: 00 08-15 00:00 :00 No FOR SLEEP 5 mg1 TABLET AT BEDTIME NEEDED 5 mg1 TABLET AT BEDTIME NEEDED (route: ) Alternate Route: BY MOUTH . Med Classific ation: CENTRAL NERVOUS SYSTEM AGENTS LORAZEPAM ORAL 07-16 00:00: 00 08-15 00:00 :00 No 0.5 mg1 TABLET THREE TIMES DAILY 0.5 mg1 TABLET THREE TIMES DAILY (route: ) Alternate Route: BY MOUTH . Med Classific ation: CENTRAL NERVOUS SYSTEM AGENTS LORAZEPAM ORAL 02-22 00:00: 00 03-24 00:00 :00 No 0.5 mg1 TABLET TWICE DAILY 0.5 mg1 TABLET TWICE DAILY (route: ) Med Classific ation: CENTRAL NERVOUS SYSTEM AGENTS LORAZEPAM ORAL 01-01 00:00: 00 01-31 00:00 :00 No 0.5 mg1 TABLET TWICE DAILY 0.5 mg1 TABLET TWICE DAILY (route: ) Med Classific ation: CENTRAL NERVOUS SYSTEM AGENTS LORAZEPAM ORAL 2017-06 0- 00:00: 00 05-07 00:00 :00 No 1 mg1/2 TO 1 TABLET TWICE DAILY 1 mg1/2 TO 1 TABLET TWICE DAILY (route: ) Med Classific ation: CENTRAL NERVOUS SYSTEM AGENTS LORAZEPAM ORAL 8 00:00: 00 03-03 00:00 :00 No 1 mg2 TABLETS AT BEDTIME 1 mg2 TABLETS AT BEDTIME (route: ) Med Classific ation: CENTRAL NERVOUS SYSTEM AGENTS MEGESTROL ORAL 07-16 00:00: 00 07-28 00:00 :00 No 400 mg/10 mL (40 mg/mL)1 0 ML EVERY DAY 400 mg/10 mL (40 mg/mL)10 ML EVERY DAY (route: ) Alternate Route: BY MOUTH . Med Classific ation: ANTINEOPL ASTICS VITAMIN D3 ORAL 07-16 00:00: 00 08-15 00:00 :00 No 1,000 unit2 TABLETS EVERY DAY 1,000 unit2 TABLETS EVERY DAY (route: ) Med Classific ation: ELECTROLY TE BALANCE-N UTRITIONA L PRODUCTS VITAMIN D3 ORAL 2017-06 00:00: 00 05-14 00:00 :00 No 1,000 unit2 TABLETS EVERY 1,000 unit2 TABLETS EVERY (route: ) Med Classific ation: ELECTROLY TE BALANCE-N UTRITIONA L PRODUCTS NORTRIPTYLI NE ORAL 2017-06 00:00: 00 06-16 00:00 :00 No 10 mg1 CAPSULE AT BEDTIME 10 mg1 CAPSULE AT BEDTIME (route: ) Alternate Route: BY MOUTH . Med Classific ation: CENTRAL NERVOUS SYSTEM AGENTS NORTRIPTYLI NE ORAL 2017-06 00:00: 00 06-18 00:00 :00 No 25 mg1 TO 2 CAPSULE (S) AT BEDTIME FOR 1 WEEK THEN INCREASE TO 2 CAPSU LE (S) AT BEDTIME 25 mg1 TO 2 CAPSULE (S) AT BEDTIME FOR 1 WEEK THEN INCREASE TO 2 CAPSU LE (S) AT BEDTIME (route: ) Med Classific ation: CENTRAL NERVOUS SYSTEM AGENTS BUPROPION HCL ORAL 2017-06 0- 00:00: 00 05-07 00:00 :00 No 100 [...] ation: CENTRAL NERVOUS SYSTEM AGENTS DONEPEZIL ORAL 2-08 00:00: 00 08-15 00:00 :00 [...] CENTRAL NERVOUS SYSTEM AGENTS REXULTI ORAL 2017-06 0-03 00:00: 00 04-09 00:00 :00 No 1 mg1 TABLET EVERY DAY AT 1 mg1 TABLET EVERY DAY AT (route: ) Med Classific ation: CENTRAL NERVOUS SYSTEM AGENTS JOELLE ORAL 2018-0 08 00:00: 00 08-15 00:00 :00 No 1.5 mg1 CAPSULE EVERY DAY 1.5 mg1 CAPSULE EVERY DAY (route: ) Med Classific ation: CENTRAL NERVOUS SYSTEM AGENTS Vital Signs Vital Name Observation Time Observation Value Commen ts Temperature 2024-06-21 14:58:00.000 97.6 [degF] Temperature 2024-06-16 10:01:00.000 97.5 [degF] Temperature 2024-06-12 21:56:00.000 97.6 [degF] Temperature 2024-05-31 16:10:00.000 97.8 [degF] Pulse 2024-06-21 14:58:00.000 71 /min Pulse 2024-06-16 10:01:00.000 82 /min Pulse 2024-06-12 21:56:00.000 84 /min Pulse 2024-05-31 16:10:00.000 72 /min Respirations 2024-06-21 14:58:00.000 18 /min Respirations 2024-06-16 10:01:00.000 18 /min Respirations 2024-06-12 21:56:00.000 18 /min Respirations 2024-05-31 16:10:00.000 18 /min Systolic Blood Pressure 2024-06-21 14:58:00.000 110 mm [Hg] Systolic Blood Pressure 2024-06-16 10:01:00.000 109 mm [Hg] Systolic Blood Pressure 2024-06-12 21:56:00.000 112 mm [Hg] Systolic Blood Pressure 2024-05-31 16:10:00.000 119 mm [Hg] Diastolic Blood Pressure 2024-06-21 14:58:00.000 77 mm [Hg] Diastolic Blood Pressure 2024-06-16 10:01:00.000 69 mm [Hg] Diastolic Blood Pressure 2024-06-12 21:56:00.000 [...] AWARENESS FOR SAFETY AND WILL NOTIFY CLINICAL BOX STAMPER AND PHYSICIAN/PROVIDER WITH ANY CHANGE IN CONDITION. [code = SKILLED NURSE WILL MAINTAIN SITUATIONAL AWARENESS FOR SAFETY AND WILL NOTIFY CLINICAL BOX STAMPER AND PHYSICIAN/PROVIDER WITH ANY CHANGE IN CONDITION.] [...] CARE WILL BE ESTABLISHED THAT MEETS PATIENT'S ALF NEEDS AND INCLUDES PATIENT GOAL FOR HOME [...] BY THE END OF THE CERTIFICATION PERIOD. Progress Notes Progress Notes <paragraph>[Visit Date: 2024 by FABIANO MARY RN]:</paragraph><paragraph>PATIENT CONTINUES NOT FEELING GOOD DUE TO COLD. SN EDUCATED PATIENT TO AVOID SLEEPING ALL DAY BUT SHOULD MOVE AROUND, DRINK PLENTY OF FLUIDS AND SHE VERBALIZED UNDERSTANDING</paragraph> Encounters Start Date/Time End Date/Time Encounter Type Admission Type Attending [facility] Facility Care Department Encounter ID Discharge Date Discharge Status Discharge Condition Discharge Reason Percent Goals Met 2023-11-20 00:00:00 2024-07-16 00:00:00 Outpatient RECERTIFIC FABIANO HUDSON [facility] [id number] 62.50
--- OUTSIDE RECORDS SUMMARY | 2024-07-04 19:05 | XMS_ITS | Clinical Summary ---
Author Organization Unknown Care Team Providers Care Utility Porter Name Role Phone TAMEKA RODRIGUEZ, VITALY Unavailable Unavailable USMAN DONOHUE, FABIANO Unavailable Unavailable Payers Payer Name Policy Type Policy Number Effective Date Expira tion Date [facility] ELDER CARE PLAN - [facility] [id number] MEDICAID [facility] [id number] MEDICARE - [facility] [facility] [id number] Problems Condition Name Condition Details Condition Category [...] 10 mg tablet 11-19 00:00: 00 Yes [id number] 10 mg BEDTIME 10 mg BEDTIME (route: oral) Med Classific ation: Cognitive Disorder Therapy folic acid 1 mg tablet 11-19 00:00: 00 Yes [id number] 1 mg DAILY 1 mg BECK Y (route: oral) Med Classific ation: Electroly te Balance-N utritiona l Products lorazepam 0.5 mg tablet 11-19 00:00: 00 06-21 23:59 :00 No [id number] 0.5 mg 2 TIMES DAILY 0.5 mg 2 TIMES DAILY (route: oral) Med Classific ation: Central Nervous System Agents melatonin 5 mg capsule 11-19 00:00: 00 Yes [id number] 5 mg BEDTIME 5 mg BEDTIME (route: oral) Med Classific ation: Central Nervous System Agents memantine 10 mg tablet 11-19 00:00: 00 Yes [id number] 10 mg 2 TIMES DAILY 10 mg 2 TIMES DAILY (route: oral) Med Classific ation: Cognitive Disorder Therapy propranolol 10 mg tablet 11-19 00:00: 00 Yes [id number] 10 mg 3 TIMES DAILY 10 mg 3 TIMES DAILY (route: oral) Med Classific ation: Cardiovas cular Therapy Agents quetiapine 25 mg tablet 09-03 00:00: 00 11-19 00:00 :00 No [id number] 25 mg BEDTIME 25 mg BEDTIME (route: oral) Med Classific ation: Central Nervous System Agents quetiapine 25 mg tablet 09-03 00:00: 00 11-19 00:00 :00 No [id number] 25 mg BEDTIME 25 mg BEDTIME (route: oral) Med Classific ation: Central Nervous System Agents thiamine HCl (vitamin B1) 100 mg tablet 11-19 00:00: 00 Yes [id number] 100 mg DAILY 100 mg DAILY (route: oral) Med Classific ation: Electroly te Balance-N utritiona l Products trazodone 50 mg tablet 11-19 00:00: 00 Yes [id number] 50 mg BEDTIME 50 mg BEDTIME (route: oral) Med Classific ation: Central Nervous System Agents Trintellix 20 mg tablet 11-19 00:00: 00 06-21 23:59 :00 No [id number] 20 mg DAILY 20 mg DAILY (route: oral) Med Classific ation: Central Nervous System Agents mirtazapine 15 mg tablet 10-22 00:00: 00 11-19 00:00 :00 No [id number] 1 tablet BEDTIME 1 tablet BEDTIME (route: oral) Med Classific ation: Central Nervous System Agents Rexulti 0.5 mg tablet 10-22 00:00: 00 11-19 00:00 :00 No [id number] 1 tablet DAILY 1 tablet DAILY (route: oral) Med Classific ation: Central Nervous System Agents ibuprofen 200 mg tablet 11-19 00:00: 00 06-21 23:59 :00 No [id number] 1 tablet EVERY 6 HOURS 1 tablet EVERY 6 HOURS (route: oral) Med Classific ation: Analgesic , Anti-infl ammatory or Antipyret ic mirtazapine 30 mg tablet 11-19 00:00: 00 Yes [id number] 1 tablet BEDTIME 1 tablet BEDTIME (route: oral) Med Classific ation: Central Nervous System Agents quetiapine 50 mg tablet 11-19 00:00: 00 06-21 23:59 :00 No [id number] 1 tablet BEDTIME 1 tablet BEDTIME (route: oral) Med Classific ation: Central Nervous System Agents Rexulti 1 mg tablet 11-19 00:00: 00 05-26 23:59 :00 No [id number] 1 tablet EVERY AM 1 tablet EVERY AM (route: oral) Med Classific ation: Central Nervous System Agents Rexulti 1 mg tablet 11-19 00:00: 00 06-21 23:59 :00 No [id number] 0.5 tablet BEDTIME 0.5 tablet BEDTIME (route: oral) Med Classific ation: Central Nervous System Agents atorvastati n 20 mg tablet 06-21 00:00: 00 Yes [id number] 1 tablet BEDTIME 1 tablet BEDTIME (route: oral) Med Classific ation: Cardiovas cular Therapy Agents lorazepam 1 mg tablet 06-21 00:00: 00 Yes [id number] 1 mg BEDTIME 1 mg BEDTIME (route: oral) Med Classific ation: Central Nervous System Agents quetiapine 200 mg tablet 06-21 00:00: 00 Yes [id number] 200 mg BEDTIME 200 mg BEDTIME (route: oral) Med Classific ation: Central Nervous System Agents Trintellix 20 mg tablet 06-21 00:00: 00 Yes [id number] 1 tablet EVERY AM 1 tablet EVERY AM (route: oral) Med Classific ation: Central Nervous System Agents gabapentin 300 mg capsule 06-21 00:00: 00 Yes [id number] 1 capsule BEDTIME 1 capsule BEDTIME (route: oral) Med Classific ation: Central Nervous System Agents ondansetron HCl 4 mg tablet 1-14 00:00: 00 Yes [id number] 1 tablet EVERY 8 HOURS 1 tablet [...] AWARENESS FOR SAFETY AND WILL NOTIFY CLINICAL BIOCHEMISTRY TECHNOLOGIST AND PHYSICIAN/PROVIDER WITH ANY CHANGE IN CONDITION. [code = SKILLED NURSE WILL MAINTAIN SITUATIONAL AWARENESS FOR SAFETY AND WILL NOTIFY CLINICAL BIOCHEMISTRY TECHNOLOGIST AND PHYSICIAN/PROVIDER WITH ANY CHANGE IN CONDITION.] [...] CARE WILL BE ESTABLISHED THAT MEETS PATIENT'S RESIDENTIAL NEEDS AND INCLUDES PATIENT GOAL FOR HOME [...] End Date/Time Encounter Type Admission Type Attending [facility] [place] Facility Care Department Encounter ID Discharge Date Discharge Status Discharge Condition Discharge Reason Percent Goals Met 2023-11-20 00:00:00 2024-07-16 00:00:00 Outpatient RECERTIFIC FABIANO HUDSON [facility] [id number] 62.50
--- OUTSIDE RECORDS SUMMARY | 2024-07-04 19:06 | XMS_ITS | Continuity of Care Document ---
Author Organization [facility] Address [address] [address] Phone Care Team Providers Care Straddle Bug Operator Name Role Phone Anai Alvarez NP Unavailable Unavailable Allergies, Adverse Reactions, Alerts Substance Reaction Status Criticality risperidone Active No Information Sulfa (Sulfonamide Antibiotics) Rash Active No Information DIPHENHYDRAMINE HCL Dizziness Active Unable t o Assess Medications Medication Instructions Dosage Effective Dates (start - stop) Status Comments loperamide 2 mg tablet Take 2 tablets by mouth after 1st episode of diarrhea and 1 tablet (2 mg) after each next episode of diarrhea; do not exceed more than 8 tablets in 24 hours. - Active acetaminophen 325 mg tablet Take 2 tablets by mouth every 6 hours NEEDED for pain/body aches. - Active donepezil 10 mg tablet Take 1 tablet [...] Dr. Willett (psychiatry). Last filled 01/18/24 per [employer], for quantity 60 (30 day supply if [...] Diagnoses Date Provider Providers Copied on Encounter [facility], [facility], [place], [place], [id number], [place] tel:[phone] [place] No Information 5 Alvarez Anai. [address] [place], [place], [id number], [place]. tel:[phone] [facility], [facility], [place], [place], [id number], [place] tel:[phone] [place] [facility] Evaluation (chief complaint) No Information 5 Pitsiladis Liss. [address], [place], [place], [id number], [place]. tel:[phone] [facility], 1 [facility], [place], [place], [id number], [place] tel:[phone] [place] Recurrent major depressive disorder, in partial remissionGAD (generalized anxiety disorder) 4 [address], [place], [id number], [place]. tel:[phone] OFFICE/OUTPA TIENT VISIT EST [facility], 1 [facility] [employer] [employer], [place], [place], [id number], [place] tel:[phone] [place] Acute Visit (chief complaint) Genitourinary syndrome of menopause 3 4 [address], [place], [id number], [place]. tel:[phone] [facility], 1 [facility], [place], [place], [id number], [place] tel:[phone] [place] No Information 4 [address] [place], [place], [id number], [place]. tel:[phone] OFFICE/OUTPA TIENT VISIT EST [facility], [facility], [place], [place], [id number], [place] tel:[phone] [place] Follow-up (chief complaint) Shortness of breathRecurre nt major depressive disorder, in partial remissionGAD (generalized anxiety disorder)Inso mnia, unspecified type 4 [address] [place], [place], [id number], [place]. tel:[phone] OFFICE/OUTPA TIENT VISIT EST [facility], 1 [facility], [place], [place], [id number], [place] tel:[phone] [place] Follow-up (chief complaint) Mixed hyperlipidemi aOsteoporosis without current pathological fracture, unspecified osteoporosis typeAdvanced directives, counseling/di scussion 4 P[address]is Liss[address] [place], [place], [id number], [place]. tel:[phone] [facility], 1 [facility], [place], [place], [id number], [place] tel:[phone] [place] Other specified personal risk factors, not elsewhere classifiedUns pecified visual disturbance 4 [address] [place], [place], [id number], [place]. tel:[phone] [facility], 1 [facility], [place], [place], [id number], [place] tel:[phone] [place] No Information 4 [address] [place], [place], [id number], [place]. tel:[phone] [facility], 1 [facility], [place], [place], [id number], [place] tel:[phone] [place] No Information Sep-1 4 Pitsjosé miguel Leija. [address] [place], [place], [id number], [place]. tel:[phone] [facility], 1 [facility], [place], [place], [id number], [place] tel:[phone] [place] Major depressive disorder, recurrent, in partial remission Sep- 4 Pitsiladis Liss. [address] [place], [place], [id number], [place]. tel:[phone] [facility], 1 [facility], [place], [place], [id number], [place] tel:[phone] [place] Encounter for rehabilitatio n evaluation Sep-0 4 Javier Romano. [address], [place], [place], [id number], [place]. tel:[phone] [facility], 1 [facility], [place], [place], [id number], [place] tel:[phone] [place] Encounter for rehabilitatio n evaluation Sep-0 4 Gerardo Wilson. [address], [place], [address]. tel:[phone] [facility], [facility], [place], [place], [id number], [place] tel:[phone] [place] Encounter for nutritional assessmentCla ss 1 obesity with serious comorbidity and body mass index (BMI) of 32.0 to 32.9 in adult, unspecified obesity typeBody mass index [BMI] 32.0-32.9, adult Sep-0 4 Normile Keena. [address], [place], [id number], [place]. tel:[phone] OFFICE/OUTPA TIENT VISIT EST [facility], [facility] [address], [place], [place], [id number], [place] tel:[phone] [place] Post Enrollment Evaluation (chief complaint) History of [...] osteoporosis type Sep-0 4 Pitsiladis Liss. [address] [employer] [place], [place], [id number], [place]. tel:[phone] [facility], [address] [address], [place], [place], [id number], [place] tel:[phone] [place] No Information Sep-0 4 Normile Keena. [address] [employer], [place], [place], [id number], [place]. tel:[phone] Family History Family Member Type Diagnosis Age At Onset No Information Immunizations Vaccine Date Status Comments Zoster recombinant subunit administered S ource: New Immunization Record Fluzone High Dose administered So urce: New Immunization Record PCV20 administered Source: Other R egistry COVID-19 Pfizer administered Source: Other Registry COVID-19 Pfizer administered Source: [place]the r Registry Tdap administered Source: Other R egistry COVID-19 Pfizer administered Source: [place] r Registry COVID-19 Pfizer administered Source: [place] r Registry Payers Payer name Insurance type Covered green party ID Authoriza tibayron(s) [employer] 16 [id number] [employer] [id number] [employer] [id number] Social History Type Description Quantity Date Captured Comments Sex Female Smoking Status No Information Vital Signs Date / Time: Height Weight BMI Pulse Rate Blood Pressure Temperature Respiratory Rate Body Surface Area Head Circumference Head Circ. Percentile Wt./Luca. Percentile BMI percentile Pulse Ox Inhaled Ox 9:33 AM 80 /min 108/60 mm[Hg] 97.70 F 16 /min 94 % 21 % Chief Complaint And Reason For Visit No Information Reason For Referral Reason For Referral No Information Plan Of Treatment Date Type Action Status Referral Ordered: Dentistry (related to Need for dental care) ordered Referral Ordered: Manager Inventory Management (related to Visual changes) ordered Referral Ordered: Referrals: Dentistry. Evaluate and treat ordered Referral Ordered: Referrals: Manager Inventory Management. Evaluate and treat ordered Referral Referred To: Dr. Willett Ordered: Referrals: Psychiatry. Dr. Willett Appointment date/timeframe: 02/16/2024 ordered Future Order: Lab Order Urinalys is, Macroscopic ([id number]), Ordered on: Ordered History Of Present Illness Encounter Date Complaint History Of Prese nt Illness Post Hospital Evaluation Judy loco s a 73 year old female who is seen today for a post-hospital evaluation. She is accompanied by her .In review of recent events, Judy was seen at [facility] on 06/18/24 with vomiting and LLQ abdominal pain x 06/17/24. She was given Zofran and morphine and able to tolerate PO intake. UA negative, CT reassuring. She was discharged home. Incidental finding on CT of 7 mm pulmonary nodule at the left lung base without prior studies for comparison. In the setting of risk factors for primary pulmonary malignancy, dedicated chest CT should be obtained on a nonemergent basis. Follow-up chest CT in 3-12 months is recommended for a low risk patient . We will plan to get a chest CT between September 2024-June 2025.Judy was seen by nursing on 06/21/24 and noted to still have nausea and dry-heaving. They had not yet picked up the Zofran prescription but were able to do so and it resolved Judy's vomiting. She did then have diarrhea on 06/22 x1 and again this morning 116 AM. She's had one thing to drink this morning, a juice, otherwise has not eaten or had anything to drink since yesterday. She has body aches, intermittent dry cough and significant dizziness. No runny nose, no dysuria, no SOB/CP. On exam, her lips and mucus membranes are dry, she is pale, weak and has trouble walking from chair to bed with increased dizziness on standing. LSCTAB, unlabored, no cough during visit, RRR, mild diffuse upper abdominal pain but improving recently per Judy. No lower abdominal pain, denies frequency/dysuria. Weigh tis down 5lbs in the last 4-6 weeks. We provided oral rehydration in the office and given 1000mg Tylenol. She was able to tolerate over 32oz water and crackers. BP afterwards was unchanged, HR has come down into the 60s. Slightly improved dizziness. Color improved. No nausea, vomiting or diarrhea in the office. Urine obtained with moderate leukocytes, negative nitrites, pH 5.0, no blood, large ketones, no glucose. Sent out for formal UA and culture. She has no dysuria, frequency, hesitancy, no fevers. The large ketones suggest she is dehydrated. We were unfortunately unable to get labs today. Acute Visit Judy is a 73 ye [...] today.History of ER visits/Falls/SNF/Hospitalizations:-05/25/23 -06/14/23: Inpatient at [facility]. No other hospitalizations, ER visits since then. -Before COVID, was on 5th floor x 1.5 years at [place] on their psychiatric unit. Then was for a few months on 1st floor in a unit x few months for psychiatric concerns. Specialists:-Dr. Fausto Willett at [facility]. Seeing him tomorrow. He is a psychiatrist. [...] Social: Judy lives in the community in [place] with her , just the 2 of them. They have always lived in the area. They have family in [place] and [place]. Herve has a son and daughter from [...] they think possibly 1 year ago at [facility]. Bone density: Unclear when her last DEXA was. Not seen in pre-enrollment records from [place]. Osteoporosis listed in her problem list with [...] [place], [place]. Admitted in early 2023 to [place] with ???anxiety, racing thoughts, insomnia???. Underwent ECT [...] [place], [place]. Admitted in early 2023 to [place] with ???anxiety, racing thoughts, insomnia???. Underwent ECT [...] is possible however the history in the [facility] records suggests possible FARNAZ. Will explore possibility [...] [place], [place]. Admitted in early 2023 to [place] with ???anxiety, racing thoughts, insomnia???. Underwent ECT [...] [place]ox[place], [place]. Admitted in early 2023 to [place] with ???anxiety, racing thoughts, insomnia???. Underwent ECT [...] medications, hypothyroidism. -Routine screening labs. Periodic weights. Gasket Former to see her for screening and counseling if indicated. Related to BMI 32.0-32.9,adult -Per pre-enrollment (01/31/22 pg 30).-BMI 32.2 today. -Routine screening labs. Periodic weights. Gasket Former to see her for screening and counseling [...] [place]ox[place], [place]. Admitted in early 2023 to [place] with ???anxiety, racing thoughts, insomnia???. Underwent ECT [...] Related to POONAM (generalized anxiety disorder) -At [facility] appt, patidorota t and spouse report she had a [...] She did have parathyroid imaging in 03/2019 ([facility]) with results stating There is homogeneous [...] [place]ep[place], [place]. Admitted in early 2023 to [place] with ???anxiety, racing thoughts, insomnia???. Underwent ECT [...]
--- NOTE | 2024-07-04 19:31 | PC.NURSE ---
patient appears to remain at rest at present respirations are even and unlabored patient appears in no distress
[2024-07-04 21:25] VITALS: BP 146/68; PULSE 72; RESP 18; TEMP 36.1; O2SAT 93
[2024-07-04 22:00] VITALS: BMI 29.0
[2024-07-04 22:30] LABS: Alanine Aminotransferase 25 U/L (0-31); Albumin Level 3.5 g/dL (3.5-5.0); Alkaline Phosphatase 84 U/L (39-117); Anion Gap 11 (12-20); Aspartate Amino Transferase 26 U/L (5-31); Bilirubin Total 0.5 mg/dL (0.0-1.0); Blood Urea Nitrogen 12 mg/dL (9-16); Calcium 9.4 mg/dL (8.4-10.2); Carbon Dioxide 27 mmol/L (22-29); Chloride 108 mmol/L (96-108); Creatinine Clr Calc Pharmacy 50.3; Estimated Glomerular Filt Rate > 60; Glucose Random 69 mg/dL (60-115); Potassium 3.8 mmol/L (3.3-5.1); Sodium 142 mmol/L (135-145); Total Protein 7.1 g/dL (6.5-8.0)
[2024-07-04] MEDS: Thiamine HCL 100 MG TABLET PO (22:39)
[2024-07-04] MEDS: Gabapentin 300 MG CAPSULE PO (22:39)
[2024-07-04] MEDS: LORazepam 1 MG TABLET PO (22:40)
[2024-07-04] MEDS: Memantine HCl 10 MG TABLET PO (22:40)
[2024-07-04] MEDS: QUEtiapine Fumarate 25 MG TABLET PO (22:40)
[2024-07-04] MEDS: Mirtazapine 15 MG TABLET PO (22:40)
[2024-07-04 22:41] VITALS: BP 146/68; PULSE 72
[2024-07-04] MEDS: Propranolol HCL 10 MG TABLET PO (22:41)
[2024-07-04] MEDS: Donepezil HCl 10 MG TABLET PO (22:41)
--- NOTE | 2024-07-04 23:44 | PC.ADMIT ---
2135 07-04-24 pt arrived via wheel chair from emergency dept. security installation technician accompanied myself and pt to the unit. pts legal status is CV. at this time, pt declines interpreter for the deaf. pt states that she has been experiencing worsening depression which she quantifies as 8/10. pt states that she is not taking any antidepressants. pt states that dr cardenas was contacted earlier in the day about worsening depression and pt was instructed to report to ED. pt lives with and states that she had a GI virus recently with nausea/vomiting/diarrhea. she was not admitted to the hospital. unfortunately, a resp panel obtained today in the ED is +covid. pt is recumbent in semifowlers position. she has a disheveled appearance. her sensorium is intact. although her affect is flat and withdrawn. she denies SI/HI. entire skin surfaces inspected and are intact. pt does not utilize any assist device for mobility. pt states that she lives at a home with her . she states that she has assistance once a week with filling pills for the week. pt does have repetitive facial movements. she wears upper dentures which are at the bedside. resp effort is regular unlabored. sao2 93%. hemodynamically stable. abdominal assessment benign. pt denies incontinence and any urological issues.
[2024-07-05] MEDS: traZODone HCL 50 MG TABLET PO ×2 (01:34→20:26)
[2024-07-05 05:56] LABS: Appearance Urine Clear; Color Urine Yellow; Glucose Urine UA Negative (Negative); Leukocyte Esterase Urine Moderate (2+) (Negative); Nitrite Urine Negative (Negative); PH 7.5 (5.0-9.0); Specific Gravity - Urine <= 1.005 (1.005-1.025); UMIC TRIGGER UACC YES; Urine Blood Negative (Negative); Urine Ketones Negative (Negative); Urine Protein Negative (Neg-Trace)
[2024-07-05 06:01] LABS: Bacteria Urine None Seen (None Seen); Hyaline Casts Urine 0-2 /LPF (0-2); RBC Urine 0-2 /HPF (0-2); Squamous Epithelial Cell Urine 0-2 /HPF (0-2); UACC Culture Trigger YES
[2024-07-05 08:00] VITALS: BP 99/67; PULSE 96; RESP 18; TEMP 36.3; O2SAT 96
[2024-07-05] MEDS: Thiamine HCL 100 MG TABLET PO ×2 (08:56→20:26)
[2024-07-05] MEDS: Memantine HCl 10 MG TABLET PO ×2 (08:56→20:26)
[2024-07-05] MEDS: Cariprazine HCl 1.5 MG CAPSULE PO (08:56)
[2024-07-05 09:23] LABS: Cholesterol 140 mg/dL (<200); HDL Cholesterol 44 mg/dL (>40); LDL Cholesterol Calculated 78 mg/dL (<100); Triglycerides 90 mg/dL (<150)
--- NOTE | 2024-07-05 11:17 | HO.PSYADMNOT ---
HPI Date of Service: 07/05/24 Chief Complaint: Severe Depression poor self care Sources of Information: patient interviewed, chart reviewed and crisis/core team assessment reviewed HPI Subjective Notes: Qureshi Warning and Conditional Voluntary Narrative: The patient is a 73-year-old descendant female, , with a long history of major depressive disorder, dementia, several medical comorbidities, followed by Dr. Broderick Willett's as an outpatient. The patient had been admitted several times into this facility for similar presentations of exacerbation of depression with eating ability to take care of herself. According to Dr. Willett, the patient's functionality has worsened in the last weeks with severe self neglect, unable to take care of herself and poor compliance into her treatment. She was advised to go to the emergency room, she was assessed by crisis and transferring to this facility for psychiatric stabilization. On the intake interview, the patient reported that she had been more depressed with depressed mood, anhedonia, lack of energy, feelings of hopelessness and anxiety. She stated that she had been taking Vraylar recently. During the intake interview, the patient looks slightly confused, she was unable to remember when was the last time that she took her medications. At this moment, the patient adamantly denies psychotic symptoms me, adam or any other safety concerns but it is obvious that she can not take care of herself. We will restart her regular medications and reassess. Past Psychiatric History: Patient with long history of recurrent depression with multiple prior psychiatric hospitalizations. 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 no classic bipolar symptoms past depressive psychotic episodes not for a number of years Medical Evaluation Reviewed: Yes REPLACED BY [facility] Medical History Dementia Nocturnal hypoxia Severe recurrent major depression w/psychotic features, mood-congruent Has daytime drowsiness Preoperative examination Elevated glucose Screening for colon cancer Screening for diabetes mellitus Obesity (BMI 30-39.9) Confused but orients easily Depression, major, severe recurrence Abnormal serum protein electrophoresis Mild recurrent major depression Anxiety and depression Encounter for Medicare annual wellness exam Removal of nell Depression with anxiety Abdominal distention Weight gain Major depression, recurrent, full remission POONAM (generalized anxiety disorder) Hypothyroidism Hyperparathyroidism Multinodular thyroid Vitamin D deficiency Osteoporosis Surgical History Hx of colonoscopy Hx of kyphoplasty Hx of section Family History: Depression Social History: Patient disabled has 1 son. Chronic anxiety has an intermittent difficult relationship with her mostly has not worked Trauma History: None noted Diagnostics Vital Signs (24Hr): Vital Signs - 24 hr 07/04/24 14:14 07/04/24 17:54 07/04/24 21:25 Temperature 97.4 F 98.2 F 97 F Pulse Rate 84 70 72 Respiratory Rate 18 13 18 Blood Pressure 105/58 L 107/56 L 146/68 H Pulse Oximetry 94 96 93 Oxygen Delivery Method Room Air Room Air Room Air 07/04/24 22:41 07/05/24 08:00 Temperature 97.3 F Pulse Rate 72 96 Respiratory Rate 18 Blood Pressure 146/68 H 99/67 Pulse Oximetry 96 Oxygen Delivery Method Room Air BMI result Body Mass Index 29.0 Labs 07/04/24 15:45 07/04/24 21:59 Labs: Laboratory Results - last 48 hr 07/04/24 07/04/24 07/05/24 15:45 21:59 05:35 WBC 8.3 RBC 4.73 Hgb 14.2 Hct 44.5 MCV 94.1 MCH 30.0 MCHC 31.9 RDW 14.6 Plt Count 248 MPV 10.7 Immature Gran % (Auto) 0.4 Neut % (Auto) 74.1 H Lymph % (Auto) 16.7 L Rooks % (Auto) 7.0 Eos % (Auto) 1.2 Baso % (Auto) 0.6 Lymph # (Auto) 1.4 Rooks # (Auto) 0.6 Eos # (Auto) 0.1 Baso # (Auto) 0.1 Abs Immat Gran (auto) 0.03 Absolute Neuts (auto) 6.2 Absolute Nucleated RBC 0.000 Nucleated RBC % (auto) 0.0 Hold Purple Top Sodium 141 142 Potassium 4.4 3.8 Chloride 107 108 Carbon Dioxide 28 27 Anion Gap 10 L 11 L BUN 12 12 Creatinine 0.99 0.92 Estim Creat Clear Calc 46.8 50.3 Estimated GFR 55 > 60 Random Glucose 100 69 Calcium 9.5 D 9.4 Total Bilirubin 0.6 0.5 AST 25 26 ALT 23 25 Alkaline Phosphatase 83 84 Total Protein 7.1 7.1 Albumin 3.5 3.5 Triglycerides Cholesterol LDL Cholesterol, Calc HDL Cholesterol Urine Color Yellow Urine Appearance Clear Urine pH 7.5 Ur Specific Ames <= 1.005 Urine Protein Negative Urine Glucose (UA) Negative Urine Ketones Negative Urine Blood Negative Urine Nitrite Negative Ur Leukocyte Esterase Moderate (2+) H Urine RBC 0-2 Urine WBC 6-10 H Ur Squamous Epith Cells 0-2 Urine Bacteria None Seen Hyaline Casts 0-2 Salicylates < 5.0 L Acetaminophen < 3 Ethyl Alcohol < 10 COVID-19 (EMILIANA) Positive A COVID-19 Clin Com See Note 07/05/24 07/05/24 08:48 08:56 WBC RBC Hgb Hct MCV MCH MCHC RDW Plt Count MPV Immature Gran % (Auto) Neut % (Auto) Lymph % (Auto) Rooks % (Auto) Eos % (Auto) Baso % (Auto) Lymph # (Auto) Rooks # (Auto) Eos # (Auto) Baso # (Auto) Abs Immat Gran (auto) Absolute Neuts (auto) Absolute Nucleated RBC Nucleated RBC % (auto) Hold Purple Top SEE NOTE Sodium Potassium Chloride Carbon Dioxide Anion Gap BUN Creatinine Estim Creat Clear Calc Estimated GFR Random Glucose Calcium Total Bilirubin AST ALT Alkaline Phosphatase Total Protein Albumin Triglycerides 90 Cholesterol 140 LDL Cholesterol, Calc 78 HDL Cholesterol 44 Urine Color Urine Appearance Urine pH Ur Specific Ames Urine Protein Urine Glucose (UA) Urine Ketones Urine Blood Urine Nitrite Ur Leukocyte Esterase Urine RBC Urine WBC Ur Squamous Epith Cells Urine Bacteria Hyaline Casts Salicylates Acetaminophen Ethyl Alcohol COVID-19 ([facility]) COVID-19 Clin Com Meds/Allergies Allergies Allergies Allergy/AdvReac Type Severity Reaction Status Date / Time risperidone [From Risperdal] Allergy Intermediate UNKNOWN Verified 07/04/24 14:15 Sulfa (Sulfonamide Allergy Intermediate rash Verified 07/04/24 14:15 Antibiotics) From BENADRYL Allergy Intermediate DIZZY Uncoded 11/04/23 12:53 Mental Status Exam Mental Status Exam Patient Appearance: Unkempt Patient Orientation: Person and Situation Level of Consciousness: Awake Patient Behavior: Guarded and Passive Mood Description: Withdrawn Affect Description: Constricted Patient Cognition Impaired: Yes Ability to Follow Directions: Good Speech Pattern: Clear Hallucinations: None Delusions: Ideas of Reference Thought Process: Distracted and Slowed Thinking Thought Content: positive for [place] and positive for Poverty of Content Judgement: Poor Assessment & Plan Assessment & Plan (1) Major depressive disorder, recurrent episode: Status: Acute Code(s): F33.9 - Major depressive disorder, recurrent, unspecified (2) Dementia: Status: Acute Qualifiers: Dementia type: unspecified type Dementia severity: mild Dementia behavioral or psychological symptom: unspecified whether behavioral, psychotic, or mood disturbance or anxiety Qualified Code(s): F03.A0 - Unspecified dementia, mild, without behavioral disturbance, psychotic disturbance, mood disturbance, and anxiety Code(s): F03.90 - Unspecified dementia, unspecified severity, without behavioral disturbance, psychotic disturbance, mood disturbance, and anxiety Plan The patient is an elderly descent female with a long history of major depressive disorder recurrent episode and dementia who was readmitted for exacerbation of depression and self neglect, unable to take care of herself in the community. She was advised to go back to the emergency room and she was assessed by crisis and transferring to this facility for psychiatric stabilization since her symptoms worsen it. Plan 1. Gather collateral information. We are going to arrange a family meeting with her to get more information all treatment plan. 2. Continue with medical workout. 3. 15 minute checks since the patient is able to contract for safety. 4. Restart antidepressants. Patient educated on: diagnosis and therapeutic strategies Informed Consent: further education needed Reason for continued inpatient stay Substantial Risk for: inability to function, rapid decompensation and med/psych decompensation Statement Statement: I have reviewed the history and physical and performed a pertinent examination on my patient. No changes have occurred unless specified. If the History and Physical was not performed prior to admission, the Hospitalist's service will be consulted for completing the admission physical. Time Spent With Patient Time: Total time managing care of this patient today __45__ minutes.
[2024-07-05 14:20] VITALS: BP 121/74; PULSE 66; RESP 18
[2024-07-05] MEDS: QUEtiapine Fumarate 25 MG TABLET PO (14:34)
[2024-07-05] MEDS: Propranolol HCL 10 MG TABLET PO ×2 (14:34→20:26)
[2024-07-05 20:00] VITALS: BP 121/59; PULSE 66; RESP 18; TEMP 36.4; O2SAT 95
[2024-07-05] MEDS: Gabapentin 300 MG CAPSULE PO (20:26)
[2024-07-05] MEDS: Donepezil HCl 10 MG TABLET PO (20:26)
[2024-07-05] MEDS: LORazepam 1 MG TABLET PO (20:26)
[2024-07-05] MEDS: Mirtazapine 15 MG TABLET PO (20:26)
[2024-07-06 08:00] VITALS: BP 117/61; PULSE 67; RESP 18; TEMP 36.3; O2SAT 90
[2024-07-06] MEDS: Thiamine HCL 100 MG TABLET PO ×2 (09:06→22:04)
[2024-07-06] MEDS: Cariprazine HCl 1.5 MG CAPSULE PO (09:07)
[2024-07-06] MEDS: Propranolol HCL 10 MG TABLET PO ×3 (09:07→20:58)
[2024-07-06] MEDS: Memantine HCl 10 MG TABLET PO ×2 (09:08→20:57)
--- NOTE | 2024-07-06 14:34 | P.PNPSI_ITS ---
Subjective Subjective Date of Service: 07/06/24 Reason For Visit: Severe Depression poor self care Subjective Notes: Conditional Voluntary Interim History: The nursing staff reported the patient had been flat depressed with some symptoms of COVID-19 such as staff Frederic. The occupational therapist reported on her last admission she scored 3.4 on the Marco test. On interview the patient reports that she is feeling better, she looks with a brighter affect most likely her mood was impaired due to COVID-19. She complains of poor sleep so we are increasing Remeron to 30 mg p.o. q.h.s. Mental Status Exam Mental Status Exam Patient Appearance: Appropriate Patient Orientation: Person and Situation Level of Consciousness: Awake and Appropriate Patient Behavior: Guarded and Passive Mood Description: Calm Affect Description: Constricted Patient Cognition Impaired: Yes Ability to Follow Directions: Good Speech Pattern: Clear Hallucinations: None Delusions: Not Present Thought Process: Distracted and Slowed Thinking Thought Content: positive for [place] and positive for Poverty of Content Judgement: Fair Diagnostics Vital Signs (24Hr): Vital Signs - 24 hr 07/05/24 20:00 07/06/24 08:00 Temperature 97.6 F 97.3 F Pulse Rate 66 67 Respiratory Rate 18 18 Blood Pressure 121/59 L 117/61 Pulse Oximetry 95 90 L Oxygen Delivery Method Room Air Room Air BMI result Body Mass Index 29.0 Labs 07/04/24 15:45 07/04/24 21:59 Labs: Laboratory Results - last 48 hr 07/04/24 07/04/24 07/05/24 15:45 21:59 05:35 WBC 8.3 RBC 4.73 Hgb 14.2 Hct 44.5 MCV 94.1 MCH 30.0 MCHC 31.9 RDW 14.6 Plt Count 248 MPV 10.7 Immature Gran % (Auto) 0.4 Neut % (Auto) 74.1 H Lymph % (Auto) 16.7 L [place] % (Auto) 7.0 Eos % (Auto) 1.2 Baso % (Auto) 0.6 Lymph # (Auto) 1.4 [place] # (Auto) 0.6 Eos # (Auto) 0.1 Baso # (Auto) 0.1 Abs Immat Gran (auto) 0.03 Absolute Neuts (auto) 6.2 Absolute Nucleated RBC 0.000 Nucleated RBC % (auto) 0.0 Hold Purple Top Sodium 141 142 Potassium 4.4 3.8 Chloride 107 108 Carbon Dioxide 28 27 Anion Gap 10 L 11 L BUN 12 12 Creatinine 0.99 0.92 Estim Creat Clear Calc 46.8 50.3 Estimated GFR 55 > 60 Random Glucose 100 69 Calcium 9.5 D 9.4 Total Bilirubin 0.6 0.5 AST 25 26 ALT 23 25 Alkaline Phosphatase 83 84 Total Protein 7.1 7.1 Albumin 3.5 3.5 Triglycerides Cholesterol LDL Cholesterol, Calc HDL Cholesterol Urine Color Yellow Urine Appearance Clear Urine pH 7.5 Ur Specific [place] <= 1.005 Urine Protein Negative Urine Glucose (UA) Negative Urine Ketones Negative Urine Blood Negative Urine Nitrite Negative Ur Leukocyte Esterase Moderate (2+) H Urine RBC 0-2 Urine WBC 6-10 H Ur Squamous Epith Cells 0-2 Urine Bacteria None Seen Hyaline Casts 0-2 Salicylates < 5.0 L Acetaminophen < 3 Ethyl Alcohol < 10 COVID-19 ([facility]ILIANA) Positive A COVID-19 Powered by Peak See Note 07/05/24 07/05/24 08:48 08:56 WBC RBC Hgb Hct MCV MCH MCHC RDW Plt Count MPV Immature Gran % (Auto) Neut % (Auto) Lymph % (Auto) [place] % (Auto) Eos % (Auto) Baso % (Auto) Lymph # (Auto) [place] # (Auto) Eos # (Auto) Baso # (Auto) Abs Immat Gran (auto) Absolute Neuts (auto) Absolute Nucleated RBC Nucleated RBC % (auto) Hold Purple Top SEE NOTE Sodium Potassium Chloride Carbon Dioxide Anion Gap BUN Creatinine Estim Creat Clear Calc Estimated GFR Random Glucose Calcium Total Bilirubin AST ALT Alkaline Phosphatase Total Protein Albumin Triglycerides 90 Cholesterol 140 LDL Cholesterol, Calc 78 HDL Cholesterol 44 Urine Color Urine Appearance Urine pH Ur Specific [place] Urine Protein Urine Glucose (UA) Urine Ketones Urine Blood Urine Nitrite Ur Leukocyte Esterase Urine RBC Urine WBC Ur Squamous Epith Cells Urine Bacteria Hyaline Casts Salicylates Acetaminophen Ethyl Alcohol COVID-19 (EMILIANA) COVID-19 [facility] Com Medications Medications Current Medications Acetaminophen (Acetaminophen 325 Mg Tablet) 650 mg PO Q6H PRN PRN Reason: Headache/Pain Mild Scale (1-3) Al Hydroxide/Mg Hydroxide (Magnesium Hydrox/Alum Hydrox 30 Ml Oral.Susp) 30 ml PO Q6H PRN PRN Reason: Heartburn/Nausea Cariprazine (Cariprazine Hcl 1.5 Mg Capsule) 1.5 mg PO DAILY [facility] Last Admin: 07/06/24 09:07 Dose: 1.5 mg Donepezil HCl (Donepezil Hcl 10 Mg Tablet) 10 mg PO BEDTIME [facility] Last Admin: 07/05/24 20:26 Dose: 10 mg Gabapentin (Gabapentin 300 Mg Capsule) 300 mg PO BEDTIME [facility] Last Admin: 07/05/24 20:26 Dose: 300 mg Lorazepam (Lorazepam 1 Mg Tablet) 1 mg PO BEDTIME [facility] Last Admin: 07/05/24 20:26 Dose: 1 mg Magnesium Hydroxide (Milk Of Magnesia 30 Ml Oral.Susp) 30 ml PO DAILY PRN PRN Reason: Constipation Memantine (Memantine Hcl 10 Mg Tablet) 10 mg PO BID [facility] Last Admin: 07/06/24 09:08 Dose: 10 mg Propranolol HCl (Propranolol Hcl 10 Mg Tablet) 10 mg PO TID [facility]; Protocol Last Admin: 07/06/24 09:07 Dose: 10 mg Quetiapine Fumarate (Quetiapine Fumarate 25 Mg Tablet) 25 mg PO DAILY PRN PRN Reason: anxiety Last Admin: 07/05/24 14:34 Dose: 25 mg Thiamine HCl (Thiamine Hcl 100 Mg Tablet) 100 mg PO BID [facility] Last Admin: 07/06/24 09:06 Dose: 100 mg Trazodone HCl (Trazodone Hcl 50 Mg Tablet) 50 mg PO BEDTIME [facility] Last Admin: 07/05/24 20:26 Dose: 50 mg Allergies Allergies Allergy/AdvReac Type Severity Reaction Status Date / Time risperidone [From Risperdal] Allergy Intermediate UNKNOWN Verified 07/04/24 14:15 Sulfa (Sulfonamide Allergy Intermediate rash Verified 07/04/24 14:15 Antibiotics) From BENADRYL Allergy Intermediate DIZZY Uncoded 11/04/23 12:53 Assessment & Plan Assessment & Plan (1) Major depressive disorder, recurrent episode: Status: Acute Code(s): F33.9 - Major depressive disorder, recurrent, unspecified (2) Dementia: Qualifiers: Dementia type: unspecified type Dementia severity: mild Dementia behavioral or psychological symptom: unspecified whether behavioral, psychotic, or mood disturbance or anxiety Qualified Code(s): F03.A0 - Unspecified dementia, mild, without behavioral disturbance, psychotic disturbance, mood disturbance, and anxiety Status: Acute Code(s): F03.90 - Unspecified dementia, unspecified severity, without behavioral disturbance, psychotic disturbance, mood disturbance, and anxiety Plan The patient is an elderly descent female with a long history of major depressive disorder recurrent episode and dementia who was readmitted for exacerbation of depression and self neglect, unable to take care of herself in the community. She was advised to go back to the emergency room and she was assessed by crisis and transferring to this facility for psychiatric stabilization since her symptoms worsen it. Plan 1. Gather collateral information. We are going to arrange a family meeting with her to get more information all treatment plan. 2. Continue with medical workout. 3. 15 minute checks since the patient is able to contract for safety. 4. Restart antidepressants. 5. Remeron increased up to 30 mg p.o. q.h.s. on July 06 Reason for continued inpatient stay Substantial Risk for: inability to function, rapid decompensation and med/psych decompensation Time Spent With Patient Time: Total time managing care of this patient today __20__ minutes.
[2024-07-06 20:00] VITALS: BP 139/72; PULSE 79; RESP 18; TEMP 36.6; O2SAT 95
[2024-07-06] MEDS: Donepezil HCl 10 MG TABLET PO (20:57)
[2024-07-06] MEDS: Gabapentin 300 MG CAPSULE PO (20:57)
[2024-07-06] MEDS: traZODone HCL 50 MG TABLET PO (20:58)
[2024-07-06] MEDS: LORazepam 1 MG TABLET PO (20:58)
[2024-07-06] MEDS: Mirtazapine 30 MG TABLET PO (20:58)
[2024-07-06] MEDS: Acetaminophen 325 MG TABLET 650 MG PO (20:58)
[2024-07-07 08:00] VITALS: BP 116/72; PULSE 87; RESP 18; TEMP 36; O2SAT 93
[2024-07-07] MEDS: Thiamine HCL 100 MG TABLET PO ×2 (08:44→21:33)
[2024-07-07] MEDS: Propranolol HCL 10 MG TABLET PO ×3 (08:44→21:33)
[2024-07-07] MEDS: Cariprazine HCl 1.5 MG CAPSULE PO (08:45)
[2024-07-07] MEDS: Memantine HCl 10 MG TABLET PO ×2 (08:45→21:33)
[2024-07-07 14:41] VITALS: BP 110/71; PULSE 70; RESP 18; O2SAT 92
[2024-07-07 20:00] VITALS: BP 118/68; PULSE 72; RESP 17; TEMP 36.6; O2SAT 93
[2024-07-07 20:46] LABS: Influenza A PCR NEGATIVE (Negative); Influenza B PCR NEGATIVE (Negative); Resp Syncy Virus RNA Qual PCR NEGATIVE (Negative); SARS COV2 PCR INHOUSE POSITIVE (Negative)
--- NOTE | 2024-07-07 21:24 | HO.PSYCHPN ---
Subjective Subjective Date of Service: 07/07/24 Reason For Visit: Severe Depression poor self care Subjective Notes: Conditional Voluntary Healthcare Proxy: Yes Guardianship: No Medical Problems Affecting Mental Status: Yes Interim History: The patient has been on precautions in her room and has been cooperative. She remains COVID positive. Patient is depressed dulled difficulty with attention in memory processing and encoding are definitely more impaired at this point. She is akathetic still. Not responded to current treatment for akathisia. Mirtazapine at been increased to 30 mg Medication Compliance: Yes Side effects from medications: Yes (Akathisia) Attending Groups: No Review of Systems COVID positive Mental Status Exam Mental Status Exam Patient Appearance: Appropriate and Unkempt Patient Orientation: Person, Place and Situation Level of Consciousness: Awake Patient Behavior: Guarded and Passive Behavior Comments: Legs frequently moving in bed Mood Description: Depressed Affect Description: Constricted Patient Cognition Impaired: Yes Ability to Follow Directions: Good Speech Pattern: Clear Memory Description: Immediate Impaired, Episodic Impaired and Working Impaired Hallucinations: None Delusions: Not Present Thought Process: Distracted and Slowed Thinking Thought Content: positive for [place] and positive for Poverty of Content Abnormal Motor Activity Signs and Symptoms: Restlessness Judgement: Fair Judgement and Insight: No psychosis or SI Diagnostics Vital Signs (24Hr): Vital Signs - 24 hr 07/07/24 08:00 07/07/24 14:41 Temperature 96.8 F Pulse Rate 87 70 Respiratory Rate 18 18 Blood Pressure 116/72 110/71 Pulse Oximetry 93 92 Oxygen Delivery Method Room Air Room Air BMI result Body Mass Index 29.0 Labs 07/04/24 15:45 07/04/24 21:59 Labs: Laboratory Results - last 48 hr 07/07/24 19:40 COVID-19 (EMILIANA) Cancelled COVID-19 Clin Com Cancelled Influenza Type A (PCR) NEGATIVE Influenza Type B (PCR) NEGATIVE RSV RNA Qual (PCR) NEGATIVE SARS-CoV-2 RNA (RT-PCR) POSITIVE A Medications Medications Current Medications Acetaminophen (Acetaminophen 325 Mg Tablet) 650 mg PO Q6H PRN PRN Reason: Headache/Pain Mild Scale (1-3) Last Admin: 07/06/24 20:58 Dose: 650 mg Al Hydroxide/Mg Hydroxide (Magnesium Hydrox/Alum Hydrox 30 Ml Oral.Susp) 30 ml PO Q6H PRN PRN Reason: Heartburn/Nausea Cariprazine (Cariprazine Hcl 1.5 Mg Capsule) 1.5 mg PO DAILY [facility] Last Admin: 07/07/24 08:45 Dose: 1.5 mg Donepezil HCl (Donepezil Hcl 10 Mg Tablet) 10 mg PO BEDTIME [facility] Last Admin: 07/06/24 20:57 Dose: 10 mg Gabapentin (Gabapentin 300 Mg Capsule) 300 mg PO BEDTIME [facility] Last Admin: 07/06/24 20:57 Dose: 300 mg Lorazepam (Lorazepam 1 Mg Tablet) 1 mg PO BEDTIME [facility] Last Admin: 07/06/24 20:58 Dose: 1 mg Magnesium Hydroxide (Milk Of Magnesia 30 Ml Oral.Susp) 30 ml PO DAILY PRN PRN Reason: Constipation Memantine (Memantine Hcl 10 Mg Tablet) 10 mg PO BID [facility] Last Admin: 07/07/24 08:45 Dose: 10 mg Mirtazapine (Mirtazapine 30 Mg Tablet) 30 mg PO BEDTIME [facility] Last Admin: 07/06/24 20:58 Dose: 30 mg Propranolol HCl (Propranolol Hcl 10 Mg Tablet) 10 mg PO TID [facility]; Protocol Last Admin: 07/07/24 14:40 Dose: 10 mg Quetiapine Fumarate (Quetiapine Fumarate 25 Mg Tablet) 25 mg PO DAILY PRN PRN Reason: anxiety Last Admin: 07/05/24 14:34 Dose: 25 mg Thiamine HCl (Thiamine Hcl 100 Mg Tablet) 100 mg PO BID [facility] Last Admin: 07/07/24 08:44 Dose: 100 mg Trazodone HCl (Trazodone Hcl 50 Mg Tablet) 50 mg PO BEDTIME [facility] Last Admin: 07/06/24 20:58 Dose: 50 mg Allergies Allergies Allergy/AdvReac Type Severity Reaction Status Date / Time risperidone [From Risperdal] Allergy Intermediate UNKNOWN Verified 07/04/24 14:15 Sulfa (Sulfonamide Allergy Intermediate rash Verified 07/04/24 14:15 Antibiotics) From BENADRYL Allergy Intermediate DIZZY Uncoded 11/04/23 12:53 Assessment & Plan Assessment & Plan (1) Major depressive disorder, recurrent episode: Status: Acute Code(s): F33.9 - Major depressive disorder, recurrent, unspecified Assessment and Plan: ? bipolar 2 (2) Dementia: Qualifiers: Dementia behavioral or psychological symptom: unspecified whether behavioral, psychotic, or mood disturbance or anxiety Dementia severity: mild Dementia type: unspecified type Qualified Code(s): F03.A0 - Unspecified dementia, mild, without behavioral disturbance, psychotic disturbance, mood disturbance, and anxiety Status: Acute Code(s): F03.90 - Unspecified dementia, unspecified severity, without behavioral disturbance, psychotic disturbance, mood disturbance, and anxiety Plan The patient is an elderly descent female with a long history of major depressive disorder recurrent episode and dementia who was readmitted for exacerbation of depression and self neglect, unable to take care of herself in the community. She was advised to go back to the emergency room and she was assessed by crisis and transferring to this facility for psychiatric stabilization since her symptoms worsen it. Plan 1. Gather collateral information. We are going to arrange a family meeting with her to get more information all treatment plan. 2. Continue with medical workout. 3. 15 minute checks since the patient is able to contract for safety. 4. Restart antidepressants. 5. Remeron increased up to 30 mg p.o. q.h.s. on July 06 07/07/2024 Continue precautions. Urine moderate leukocytes no bacteria mirtazapine increase to 30 mg patient not psychotic remains depressed withdrawn with significant akathisia. For bipolar depression has generally done best [facility] but has developed significant akathisia try and increase propranolol as tolerated recheck COVID Patient educated on: diagnosis, medication risk/benefits and medical condition Informed Consent: further education needed Reason for continued inpatient stay Substantial Risk for: inability to function, rapid decompensation and med/psych decompensation Time Spent With Patient Time: Total time managing care of this patient today _30___ minutes.
[2024-07-07] MEDS: Mirtazapine 30 MG TABLET PO (21:32)
[2024-07-07] MEDS: LORazepam 1 MG TABLET PO (21:33)
[2024-07-07] MEDS: Donepezil HCl 10 MG TABLET PO (21:34)
[2024-07-07] MEDS: Gabapentin 300 MG CAPSULE PO (21:34)
[2024-07-07] MEDS: traZODone HCL 50 MG TABLET PO (21:34)
[2024-07-08 08:00] VITALS: BP 155/73; PULSE 81; TEMP 36.3; O2SAT 98
[2024-07-08] MEDS: Memantine HCl 10 MG TABLET PO ×2 (09:13→21:04)
[2024-07-08] MEDS: Cariprazine HCl 1.5 MG CAPSULE PO (09:13)
[2024-07-08 09:14] VITALS: BP 155/73; PULSE 81
[2024-07-08] MEDS: Propranolol HCL 10 MG TABLET PO ×3 (09:14→21:05)
[2024-07-08] MEDS: Thiamine HCL 100 MG TABLET PO ×2 (09:14→21:04)
[2024-07-08 14:09] VITALS: BP 132/70; PULSE 71
[2024-07-08] MEDS: QUEtiapine Fumarate 25 MG TABLET PO (17:23)
[2024-07-08] MEDS: Acetaminophen 325 MG TABLET 650 MG PO (17:29)
--- NOTE | 2024-07-08 17:33 | HO.PHPPROGNO ---
Subjective Subjective Reason For Visit: Severe Depression poor self care Diagnostics Vital Signs (24Hr): Vital Signs - 24 hr 07/07/24 20:00 07/08/24 08:00 07/08/24 09:14 Temperature 97.8 F 97.3 F Pulse Rate 72 81 81 Respiratory Rate 17 Blood Pressure 118/68 155/73 H 155/73 H Pulse Oximetry 93 98 Oxygen Delivery Method Room Air Room Air 07/08/24 14:09 Temperature Pulse Rate 71 Respiratory Rate Blood Pressure 132/70 Pulse Oximetry Oxygen Delivery Method BMI result Body Mass Index 29.0 Labs 07/04/24 15:45 07/04/24 21:59 Labs: Laboratory Results - last 48 hr 07/07/24 19:40 COVID-19 ([facility]IL[facility]NA) Cancelled COVID-19 Clin Com Cancelled Influenza Type A (PCR) NEGATIVE Influenza Type B (PCR) NEGATIVE RSV RNA Qual (PCR) NEGATIVE SARS-CoV-2 RNA (RT-PCR) POSITIVE A Assessment & Plan Certification I certify that partial hospital treatment is medically necessary due to the symptoms and problems resulting from the patient's mental illness and the failure to treat the patient at the partial hospital level of care would likely result in the patient requiring inpatient psychiatric care which could not be prevented at a less intensive level of care. Total time managing care of this patient today ____ minutes. Discharge Plan Discharge Referrals: Physician,Sai J [Primary Care Provider] - 1 Week Discharge Medications: No Action donepezil 10 mg tablet 10 mg PO BEDTIME 30 Days Qty: 30 5RF propranolol 10 mg tablet 10 mg PO TID 90 Days Qty: 270 1RF Protocol: Hold for SBP/HR < HOLD for SBP < : 90 HOLD for HR < : 60 thiamine mononitrate (vit B1) 100 mg tablet 100 mg PO BID Qty: 60 3RF quetiapine [Seroquel] 25 mg tablet 25 mg PO DAILY PRN (Reason: anxiety) Qty: 30 1RF memantine 10 mg Tablet 10 mg PO BID 90 Days Qty: 180 1RF mirtazapine 15 mg tablet 15 mg PO BEDTIME Qty: 30 1RF Vraylar 1.5 mg capsule 1.5 mg PO DAILY Qty: 30 1RF trazodone 50 mg tablet 50 mg PO BEDTIME 90 Days Qty: 90 1RF gabapentin 100 mg capsule 300 mg PO BEDTIME 30 Days Qty: 90 2RF lorazepam 0.5 mg tablet 1 mg PO BEDTIME 30 Days Qty: 60 2RF Print Language: Liberian
--- NOTE | 2024-07-08 17:51 | HO.PSYCHPN ---
Subjective Subjective Date of Service: 07/08/24 Reason For Visit: Severe Depression poor self care Subjective Notes: Conditional Voluntary Healthcare Proxy: Yes Guardianship: No Interim History: Pt is depressed with significant akathesia limited covid sx .Did previously respond to vraylar.cooperative with isolation. Needs cueing for adl care Medication Compliance: Yes Mental Status Exam Mental Status Exam Patient Appearance: Unkempt Patient Orientation: Person, Place and Situation Level of Consciousness: Awake Patient Behavior: Guarded and Passive Behavior Comments: Legs frequently moving in bed in bicycycle motion Mood Description: Withdrawn and Depressed Affect Description: Constricted Patient Cognition Impaired: Yes Ability to Follow Directions: Good Speech Pattern: Clear Memory Description: Immediate Impaired, Episodic Impaired and Working Impaired Hallucinations: None Delusions: Not Present Thought Process: Distracted and Slowed Thinking Thought Content: positive for [place] and positive for Poverty of Content Abnormal Motor Activity Signs and Symptoms: Restlessness Judgement: Fair Judgement and Insight: No psychosis or SI Diagnostics Vital Signs (24Hr): Vital Signs - 24 hr 07/07/24 20:00 07/08/24 08:00 07/08/24 09:14 Temperature 97.8 F 97.3 F Pulse Rate 72 81 81 Respiratory Rate 17 Blood Pressure 118/68 155/73 H 155/73 H Pulse Oximetry 93 98 Oxygen Delivery Method Room Air Room Air 07/08/24 14:09 Temperature Pulse Rate 71 Respiratory Rate Blood Pressure 132/70 Pulse Oximetry Oxygen Delivery Method BMI result Body Mass Index 29.0 Labs 07/04/24 15:45 07/04/24 21:59 Labs: Laboratory Results - last 48 hr 07/07/24 19:40 COVID-19 (EMILIANA) Cancelled COVID-19 Clin Com Cancelled Influenza Type A (PCR) NEGATIVE Influenza Type B (PCR) NEGATIVE RSV RNA Qual (PCR) NEGATIVE SARS-CoV-2 RNA (RT-PCR) POSITIVE A Medications Medications Current Medications Acetaminophen (Acetaminophen 325 Mg Tablet) 650 mg PO Q6H PRN PRN Reason: Headache/Pain Mild Scale (1-3) Last Admin: 07/08/24 17:29 Dose: 650 mg Al Hydroxide/Mg Hydroxide (Magnesium Hydrox/Alum Hydrox 30 Ml Oral.Susp) 30 ml PO Q6H PRN PRN Reason: Heartburn/Nausea Cariprazine (Cariprazine Hcl 1.5 Mg Capsule) 1.5 mg PO DAILY [facility] Last Admin: 07/08/24 09:13 Dose: 1.5 mg Donepezil HCl (Donepezil Hcl 10 Mg Tablet) 10 mg PO BEDTIME [facility] Last Admin: 07/07/24 21:34 Dose: 10 mg Gabapentin (Gabapentin 300 Mg Capsule) 300 mg PO BEDTIME [facility] Last Admin: 07/07/24 21:34 Dose: 300 mg Lorazepam (Lorazepam 0.5 Mg Tablet) 0.5 mg PO TID [facility] Magnesium Hydroxide (Milk Of Magnesia 30 Ml Oral.Susp) 30 ml PO DAILY PRN PRN Reason: Constipation Memantine (Memantine Hcl 10 Mg Tablet) 10 mg PO BID [facility] Last Admin: 07/08/24 09:13 Dose: 10 mg Mirtazapine (Mirtazapine 30 Mg Tablet) 30 mg PO BEDTIME [facility] Last Admin: 07/07/24 21:32 Dose: 30 mg Pramipexole Dihydrochloride (Pramipexole Di-Hcl 0.125 Mg Tablet) 0.125 mg PO TID [facility] Propranolol HCl (Propranolol Hcl 10 Mg Tablet) 10 mg PO TID [facility]; Protocol Last Admin: 07/08/24 14:09 Dose: 10 mg Quetiapine Fumarate (Quetiapine Fumarate 25 Mg Tablet) 25 mg PO DAILY PRN PRN Reason: anxiety Last Admin: 07/08/24 17:23 Dose: 25 mg Thiamine HCl (Thiamine Hcl 100 Mg Tablet) 100 mg PO BID [facility] Last Admin: 07/08/24 09:14 Dose: 100 mg Trazodone HCl (Trazodone Hcl 50 Mg Tablet) 50 mg PO BEDTIME [facility] Last Admin: 07/07/24 21:34 Dose: 50 mg Allergies Allergies Allergy/AdvReac Type Severity Reaction Status Date / Time risperidone [From Risperdal] Allergy Intermediate UNKNOWN Verified 07/04/24 14:15 Sulfa (Sulfonamide Allergy Intermediate rash Verified 07/04/24 14:15 Antibiotics) From BENADRYL Allergy Intermediate DIZZY Uncoded 11/04/23 12:53 Assessment & Plan Assessment & Plan (1) Major depressive disorder, recurrent episode: Status: Acute Code(s): F33.9 - Major depressive disorder, recurrent, unspecified Assessment and Plan: ? bipolar 2 (2) Dementia: Qualifiers: Dementia behavioral or psychological symptom: unspecified whether behavioral, psychotic, or mood disturbance or anxiety Dementia severity: mild Dementia type: unspecified type Qualified Code(s): F03.A0 - Unspecified dementia, mild, without behavioral disturbance, psychotic disturbance, mood disturbance, and anxiety Status: Acute Code(s): F03.90 - Unspecified dementia, unspecified severity, without behavioral disturbance, psychotic disturbance, mood disturbance, and anxiety Plan The patient is an elderly descent female with a long history of major depressive disorder recurrent episode and dementia who was readmitted for exacerbation of depression and self neglect, unable to take care of herself in the community. She was advised to go back to the emergency room and she was assessed by crisis and transferring to this facility for psychiatric stabilization since her symptoms worsen it. Plan 1. Gather collateral information. We are going to arrange a family meeting with her to get more information all treatment plan. 2. Continue with medical workout. 3. 15 minute checks since the patient is able to contract for safety. 4. Restart antidepressants. 5. Remeron increased up to 30 mg p.o. q.h.s. on July 06 07/07/2024 Continue precautions. Urine moderate leukocytes no bacteria mirtazapine increase to 30 mg patient not psychotic remains depressed withdrawn with significant akathisia. For bipolar depression has generally done best Latdonell Davis but has developed significant akathisia try and increase propranolol as tolerated recheck VJID Patient educated on: diagnosis, medication risk/benefits and medical condition Informed Consent: further education needed Reason for continued inpatient stay Substantial Risk for: inability to function, rapid decompensation and med/psych decompensation Time Spent With Patient Time: Total time managing care of this patient today ____ minutes.
[2024-07-08] MEDS: LORazepam 0.5 MG TABLET PO ×2 (18:14→21:04)
[2024-07-08 20:00] VITALS: BP 120/86; PULSE 83; RESP 20; TEMP 36.4; O2SAT 96
[2024-07-08] MEDS: Pramipexole Di-HCL 0.125 MG TABLET PO (21:04)
[2024-07-08] MEDS: Donepezil HCl 10 MG TABLET PO (21:04)
[2024-07-08] MEDS: traZODone HCL 50 MG TABLET PO (21:04)
[2024-07-08 21:05] VITALS: BP 120/86; PULSE 83
[2024-07-08] MEDS: Gabapentin 300 MG CAPSULE PO (21:05)
[2024-07-08] MEDS: Mirtazapine 30 MG TABLET PO (21:05)
[2024-07-09 08:00] VITALS: BP 140/71; PULSE 70; RESP 16; TEMP 36.5; O2SAT 93
[2024-07-09] MEDS: Propranolol HCL 10 MG TABLET PO ×3 (09:06→21:20)
[2024-07-09] MEDS: Cariprazine HCl 1.5 MG CAPSULE PO (09:06)
[2024-07-09] MEDS: LORazepam 0.5 MG TABLET PO ×3 (09:06→21:20)
[2024-07-09] MEDS: Thiamine HCL 100 MG TABLET PO ×2 (09:06→21:20)
[2024-07-09] MEDS: Pramipexole Di-HCL 0.125 MG TABLET PO ×3 (09:06→21:20)
[2024-07-09] MEDS: Memantine HCl 10 MG TABLET PO ×2 (09:06→21:20)
[2024-07-09 13:13] LABS: Influenza A PCR NEGATIVE (Negative); Influenza B PCR NEGATIVE (Negative); Resp Syncy Virus RNA Qual PCR NEGATIVE (Negative); SARS COV2 PCR INHOUSE POSITIVE (Negative)
[2024-07-09 15:44] VITALS: BP 135/65; PULSE 74; O2SAT 95
--- NOTE | 2024-07-09 17:48 | P.PNPSI_ITS ---
Subjective Subjective Date of Service: 07/09/24 Reason For Visit: Severe Depression poor self care Subjective Notes: Conditional Voluntary Interim History: Patient seen in isolation. The patient is somewhat less depressed remains disheveled less noted akathisia. Remains COVID positive. Significantly less akathisia noted Mental Status Exam Mental Status Exam Patient Appearance: Unkempt Patient Orientation: Person, Place and Situation Level of Consciousness: Awake Patient Behavior: Guarded and Passive Behavior Comments: Legs frequently moving in bed in bicycycle motion Mood Description: Constricted and Depressed Affect Description: Constricted Patient Cognition Impaired: Yes Ability to Follow Directions: Good Speech Pattern: Clear Memory Description: Immediate Impaired, Episodic Impaired and Working Impaired Hallucinations: None Delusions: Not Present Thought Process: Distracted and Slowed Thinking Thought Content: positive for [place] and positive for Poverty of Content Abnormal Motor Activity Signs and Symptoms: Restlessness Judgement: Fair Judgement and Insight: No psychosis or SI Diagnostics Vital Signs (24Hr): Vital Signs - 24 hr 07/08/24 20:00 07/08/24 21:05 07/09/24 08:00 Temperature 97.6 F 97.7 F Pulse Rate 83 83 70 Respiratory Rate 20 16 Blood Pressure 120/86 120/86 140/71 H Pulse Oximetry 96 93 Oxygen Delivery Method Room Air Room Air 07/09/24 15:44 Temperature Pulse Rate 74 Respiratory Rate Blood Pressure 135/65 Pulse Oximetry 95 Oxygen Delivery Method Room Air BMI result Body Mass Index 29.0 Labs 07/04/24 15:45 07/04/24 21:59 Labs: Laboratory Results - last 48 hr 07/07/24 07/09/24 19:40 12:16 COVID-19 ([facility]) Cancelled COVID-19 Clin Com Cancelled Influenza Type A (PCR) NEGATIVE NEGATIVE Influenza Type B (PCR) NEGATIVE NEGATIVE RSV RNA Qual (PCR) NEGATIVE NEGATIVE SARS-CoV-2 RNA (RT-PCR) POSITIVE A POSITIVE A Medications Medications Current Medications Acetaminophen (Acetaminophen 325 Mg Tablet) 650 mg PO Q6H PRN PRN Reason: Headache/Pain Mild Scale (1-3) Last Admin: 07/08/24 17:29 Dose: 650 mg Al Hydroxide/Mg Hydroxide (Magnesium Hydrox/Alum Hydrox 30 Ml Oral.Susp) 30 ml PO Q6H PRN PRN Reason: Heartburn/Nausea Cariprazine (Cariprazine Hcl 1.5 Mg Capsule) 1.5 mg PO DAILY [facility] Last Admin: 07/09/24 09:06 Dose: 1.5 mg Donepezil HCl (Donepezil Hcl 10 Mg Tablet) 10 mg PO BEDTIME [facility] Last Admin: 07/08/24 21:04 Dose: 10 mg Gabapentin (Gabapentin 300 Mg Capsule) 300 mg PO BEDTIME [facility] Last Admin: 07/08/24 21:05 Dose: 300 mg Lorazepam (Lorazepam 0.5 Mg Tablet) 0.5 mg PO TID [facility] Last Admin: 07/09/24 15:22 Dose: 0.5 mg Magnesium Hydroxide (Milk Of Magnesia 30 Ml Oral.Susp) 30 ml PO DAILY PRN PRN Reason: Constipation Memantine (Memantine Hcl 10 Mg Tablet) 10 mg PO BID [facility] Last Admin: 07/09/24 09:06 Dose: 10 mg Mirtazapine (Mirtazapine 30 Mg Tablet) 30 mg PO BEDTIME [facility] Last Admin: 07/08/24 21:05 Dose: 30 mg Pramipexole Dihydrochloride (Pramipexole Di-Hcl 0.125 Mg Tablet) 0.125 mg PO TID [facility] Last Admin: 07/09/24 15:22 Dose: 0.125 mg Propranolol HCl (Propranolol Hcl 10 Mg Tablet) 10 mg PO TID [facility]; Protocol Last Admin: 07/09/24 15:22 Dose: 10 mg Quetiapine Fumarate (Quetiapine Fumarate 25 Mg Tablet) 25 mg PO DAILY PRN PRN Reason: anxiety Last Admin: 07/08/24 17:23 Dose: 25 mg Thiamine HCl (Thiamine Hcl 100 Mg Tablet) 100 mg PO BID [facility] Last Admin: 07/09/24 09:06 Dose: 100 mg Trazodone HCl (Trazodone Hcl 50 Mg Tablet) 50 mg PO BEDTIME [facility] Last Admin: 07/08/24 21:04 Dose: 50 mg Allergies Allergies Allergy/AdvReac Type Severity Reaction Status Date / Time risperidone [From Risperdal] Allergy Intermediate UNKNOWN Verified 07/04/24 14:15 Sulfa (Sulfonamide Allergy Intermediate rash Verified 07/04/24 14:15 Antibiotics) From BENADRYL Allergy Intermediate DIZZY Uncoded 11/04/23 12:53 Assessment & Plan Assessment & Plan (1) Major depressive disorder, recurrent episode: Status: Acute Code(s): F33.9 - Major depressive disorder, recurrent, unspecified Assessment and Plan: ? bipolar 2 (2) Dementia: Qualifiers: Dementia behavioral or psychological symptom: unspecified whether behavioral, psychotic, or mood disturbance or anxiety Dementia severity: mild Dementia type: unspecified type Qualified Code(s): F03.A0 - Unspecified dementia, mild, without behavioral disturbance, psychotic disturbance, mood disturbance, and anxiety Status: Acute Code(s): F03.90 - Unspecified dementia, unspecified severity, without behavioral disturbance, psychotic disturbance, mood disturbance, and anxiety Plan The patient is an elderly descent female with a long history of major depressive disorder recurrent episode and dementia who was readmitted for exacerbation of depression and self neglect, unable to take care of herself in the community. She was advised to go back to the emergency room and she was assessed by crisis and transferring to this facility for psychiatric stabilization since her symptoms worsen it. Plan 1. Gather collateral information. We are going to arrange a family meeting with her to get more information all treatment plan. 2. Continue with medical workout. 3. 15 minute checks since the patient is able to contract for safety. 4. Restart antidepressants. 5. Remeron increased up to 30 mg p.o. q.h.s. on July 06 07/07/2024 Continue precautions. Urine moderate leukocytes no bacteria mirtazapine increase to 30 mg patient not psychotic remains depressed withdrawn with significant akathisia. For bipolar depression has generally done best Latuda Vraylar Rexulti but has developed significant akathisia try and increase propranolol as tolerated recheck COVID 07/09/2024 Continue Vraylar Trintellix monitor response to Mirapex lorazepam mirtazapine Monitor COVID response Patient educated on: diagnosis and medication risk/benefits Informed Consent: further education needed Reason for continued inpatient stay Substantial Risk for: harm to self, inability to function, rapid decompensation and med/psych decompensation Time Spent With Patient Time: Total time managing care of this patient today ____ minutes.
[2024-07-09 20:00] VITALS: BP 132/70; PULSE 76; RESP 16; TEMP 36.6; O2SAT 95
[2024-07-09] MEDS: traZODone HCL 50 MG TABLET PO (21:19)
[2024-07-09] MEDS: Donepezil HCl 10 MG TABLET PO (21:19)
[2024-07-09] MEDS: Mirtazapine 30 MG TABLET PO (21:20)
[2024-07-09] MEDS: Gabapentin 300 MG CAPSULE PO (21:20)
[2024-07-10 08:00] VITALS: BP 89/59; PULSE 82; RESP 18; TEMP 36.1; O2SAT 93
[2024-07-10] MEDS: Cariprazine HCl 1.5 MG CAPSULE PO (08:45)
[2024-07-10] MEDS: Thiamine HCL 100 MG TABLET PO ×2 (08:45→21:09)
[2024-07-10] MEDS: Memantine HCl 10 MG TABLET PO ×2 (08:45→21:09)
[2024-07-10] MEDS: LORazepam 0.5 MG TABLET PO ×3 (08:45→21:10)
[2024-07-10] MEDS: Pramipexole Di-HCL 0.125 MG TABLET PO ×3 (08:45→21:09)
[2024-07-10] MEDS: Propranolol HCL 10 MG TABLET PO ×2 (15:10→21:10)
--- NOTE | 2024-07-10 15:14 | P.PNPSI_ITS ---
Subjective Subjective Date of Service: 07/10/24 Reason For Visit: Severe Depression poor self care Subjective Notes: Conditional Voluntary Interim History: Patient seems gradually improving somewhat less depressed remains isolated tolerating pramipexole Medication Compliance: Yes Attending Groups: No Mental Status Exam Mental Status Exam Patient Appearance: Unkempt Patient Orientation: Person, Place and Situation Level of Consciousness: Awake Patient Behavior: Passive Behavior Comments: Legs frequently moving in bed in bicycycle motion Mood Description: Depressed (Improving) Affect Description: Blunted Patient Cognition Impaired: Yes Ability to Follow Directions: Good Speech Pattern: Clear Memory Description: Immediate Impaired, Episodic Impaired and Working Impaired Hallucinations: None Delusions: Not Present Thought Process: Distracted and Slowed Thinking Thought Content: positive for [place] and positive for Poverty of Content Judgement: Fair Judgement and Insight: No psychosis or SI improving alertness less restlessness and akathisia Diagnostics Vital Signs (24Hr): Vital Signs - 24 hr 07/09/24 15:44 07/09/24 20:00 07/10/24 08:00 Temperature 97.8 F 96.9 F Pulse Rate 74 16 L 82 Respiratory Rate 16 18 Blood Pressure 135/65 132/70 89/59 L Pulse Oximetry 95 95 93 Oxygen Delivery Method Room Air Room Air Room Air BMI result Body Mass Index 29.0 Labs 07/04/24 15:45 07/04/24 21:59 Labs: Laboratory Results - last 48 hr 07/09/24 12:16 Influenza Type A (PCR) NEGATIVE Influenza Type B (PCR) NEGATIVE RSV RNA Qual (PCR) NEGATIVE SARS-CoV-2 RNA (RT-PCR) POSITIVE A Medications Medications Current Medications Acetaminophen (Acetaminophen 325 Mg Tablet) 650 mg PO Q6H PRN PRN Reason: Headache/Pain Mild Scale (1-3) Last Admin: 07/08/24 17:29 Dose: 650 mg Al Hydroxide/Mg Hydroxide (Magnesium Hydrox/Alum Hydrox 30 Ml Oral.Susp) 30 ml PO Q6H PRN PRN Reason: Heartburn/Nausea Cariprazine (Cariprazine Hcl 1.5 Mg Capsule) 1.5 mg PO DAILY [facility] Last Admin: 07/10/24 08:45 Dose: 1.5 mg Donepezil HCl (Donepezil Hcl 10 Mg Tablet) 10 mg PO BEDTIME [facility] Last Admin: 07/09/24 21:19 Dose: 10 mg Gabapentin (Gabapentin 300 Mg Capsule) 300 mg PO BEDTIME [facility] Last Admin: 07/09/24 21:20 Dose: 300 mg Lorazepam (Lorazepam 0.5 Mg Tablet) 0.5 mg PO TID [facility] Last Admin: 07/10/24 15:10 Dose: 0.5 mg Magnesium Hydroxide (Milk Of Magnesia 30 Ml Oral.Susp) 30 ml PO DAILY PRN PRN Reason: Constipation Memantine (Memantine Hcl 10 Mg Tablet) 10 mg PO BID [facility] Last Admin: 07/10/24 08:45 Dose: 10 mg Mirtazapine (Mirtazapine 30 Mg Tablet) 30 mg PO BEDTIME [facility] Last Admin: 07/09/24 21:20 Dose: 30 mg Pramipexole Dihydrochloride (Pramipexole Di-Hcl 0.125 Mg Tablet) 0.125 mg PO TID [facility] Last Admin: 07/10/24 15:10 Dose: 0.125 mg Propranolol HCl (Propranolol Hcl 10 Mg Tablet) 10 mg PO TID [facility]; Protocol Last Admin: 07/10/24 15:10 Dose: 10 mg Quetiapine Fumarate (Quetiapine Fumarate 25 Mg Tablet) 25 mg PO DAILY PRN PRN Reason: anxiety Last Admin: 07/08/24 17:23 Dose: 25 mg Thiamine HCl (Thiamine Hcl 100 Mg Tablet) 100 mg PO BID [facility] Last Admin: 07/10/24 08:45 Dose: 100 mg Trazodone HCl (Trazodone Hcl 50 Mg Tablet) 50 mg PO BEDTIME [facility] Last Admin: 07/09/24 21:19 Dose: 50 mg Allergies Allergies Allergy/AdvReac Type Severity Reaction Status Date / Time risperidone [From Risperdal] Allergy Intermediate UNKNOWN Verified 07/04/24 14:15 Sulfa (Sulfonamide Allergy Intermediate rash Verified 07/04/24 14:15 Antibiotics) From BENADRYL Allergy Intermediate DIZZY Uncoded 11/04/23 12:53 Assessment & Plan Assessment & Plan (1) Major depressive disorder, recurrent episode: Status: Acute Code(s): F33.9 - Major depressive disorder, recurrent, unspecified Assessment and Plan: ? bipolar 2 (2) Dementia: Qualifiers: Dementia behavioral or psychological symptom: unspecified whether behavioral, psychotic, or mood disturbance or anxiety Dementia severity: mild Dementia type: unspecified type Qualified Code(s): F03.A0 - Unspecified dementia, mild, without behavioral disturbance, psychotic disturbance, mood disturbance, and anxiety Status: Acute Code(s): F03.90 - Unspecified dementia, unspecified severity, without behavioral disturbance, psychotic disturbance, mood disturbance, and anxiety Plan The patient is an elderly descent female with a long history of major depressive disorder recurrent episode and dementia who was readmitted for exacerbation of depression and self neglect, unable to take care of herself in the community. She was advised to go back to the emergency room and she was assessed by crisis and transferring to this facility for psychiatric stabilization since her symptoms worsen it. Plan 1. Gather collateral information. We are going to arrange a family meeting with her to get more information all treatment plan. 2. Continue with medical workout. 3. 15 minute checks since the patient is able to contract for safety. 4. Restart antidepressants. 5. Remeron increased up to 30 mg p.o. q.h.s. on July 06 07/07/2024 Continue precautions. Urine moderate leukocytes no bacteria mirtazapine increase to 30 mg patient not psychotic remains depressed withdrawn with significant akathisia. For bipolar depression has generally done best Latuda Vraylar Rexulti but has developed significant akathisia try and increase propranolol as tolerated recheck COVID 07/09/2024 Continue Vraylar Trintellix monitor response to Mirapex lorazepam mirtazapine Monitor COVID response 07/10/2024 Continue plan of care check COVID for tomorrow discharge planning will better be able to check patient's gait Patient educated on: diagnosis and medication risk/benefits Informed Consent: further education needed Reason for continued inpatient stay Substantial Risk for: inability to function, rapid decompensation and med/psych decompensation Time Spent With Patient Time: Total time managing care of this patient today ____ minutes.
--- NOTE | 2024-07-10 17:27 | PC.NURSE ---
Patient BP was 89/[address] Willett notified Propranolol held.
[2024-07-10 17:35] VITALS: BP 92/55; PULSE 78
[2024-07-10 20:00] VITALS: BP 122/58; PULSE 108; RESP 16; TEMP 36; O2SAT 98
[2024-07-10] MEDS: Gabapentin 300 MG CAPSULE PO (21:09)
[2024-07-10] MEDS: traZODone HCL 50 MG TABLET PO (21:10)
[2024-07-10] MEDS: Donepezil HCl 10 MG TABLET PO (21:10)
[2024-07-10] MEDS: Mirtazapine 30 MG TABLET PO (21:23)
[2024-07-11 08:10] VITALS: BP 118/71; PULSE 100; RESP 16; TEMP 36.3; O2SAT 96
[2024-07-11 08:41] VITALS: BP 118/71; PULSE 100
[2024-07-11] MEDS: Thiamine HCL 100 MG TABLET PO ×2 (08:41→19:49)
[2024-07-11] MEDS: LORazepam 0.5 MG TABLET PO ×3 (08:41→19:49)
[2024-07-11] MEDS: Propranolol HCL 10 MG TABLET PO ×3 (08:41→19:48)
[2024-07-11] MEDS: Memantine HCl 10 MG TABLET PO ×2 (08:41→19:49)
[2024-07-11] MEDS: Cariprazine HCl 1.5 MG CAPSULE PO (08:41)
[2024-07-11] MEDS: Pramipexole Di-HCL 0.125 MG TABLET PO ×3 (08:41→19:49)
[2024-07-11 10:11] LABS: COVID-19 Test Positive (Negative); IDNOW Serial# 58CA691E
[2024-07-11 14:12] VITALS: BP 122/65; PULSE 83; O2SAT 95
[2024-07-11 19:48] VITALS: BP 155/79; PULSE 85
[2024-07-11] MEDS: Gabapentin 300 MG CAPSULE PO (19:48)
[2024-07-11] MEDS: traZODone HCL 50 MG TABLET PO (19:48)
[2024-07-11] MEDS: Donepezil HCl 10 MG TABLET PO (19:49)
[2024-07-11] MEDS: Mirtazapine 30 MG TABLET PO (19:49)
[2024-07-11 20:00] VITALS: BP 155/79; PULSE 85; TEMP 36.1; O2SAT 95
[2024-07-12 08:00] VITALS: BP 155/79; PULSE 85; RESP 18; TEMP 36.6; O2SAT 95
[2024-07-12] MEDS: Pramipexole Di-HCL 0.125 MG TABLET PO (09:03)
[2024-07-12] MEDS: LORazepam 0.5 MG TABLET PO ×3 (09:03→20:47)
[2024-07-12] MEDS: Propranolol HCL 10 MG TABLET PO ×3 (09:03→20:47)
[2024-07-12] MEDS: Memantine HCl 10 MG TABLET PO ×2 (09:03→20:47)
[2024-07-12] MEDS: Cariprazine HCl 1.5 MG CAPSULE PO (09:03)
[2024-07-12] MEDS: Thiamine HCL 100 MG TABLET PO ×2 (09:03→20:48)
--- NOTE | 2024-07-12 12:10 | P.PNPSI_ITS ---
Subjective Subjective Date of Service: 07/12/24 Reason For Visit: Severe Depression poor self care Subjective Notes: Conditional Voluntary Healthcare Proxy: Yes Interim History: The pt is showing improvement akathesia is less with lorazepam 0.5 tid pramipexole much less agitated not in resp distress has been cooperative with isolation Medication Compliance: Yes Attending Groups: No Review of Systems Acute medical concerns: Yes covid pos Mental Status Exam Mental Status Exam Patient Appearance: Disheveled and Appropriate Patient Orientation: Person, Place and Situation Level of Consciousness: Awake Patient Behavior: Passive Behavior Comments: Legs frequently moving in bed in bicycycle motion Mood Description: Depressed (much improved) Affect Description: Blunted Patient Cognition Impaired: Yes Ability to Follow Directions: Good Speech Pattern: Clear Memory Description: Episodic Impaired and Working Impaired Hallucinations: None Delusions: Not Present Thought Process: Distracted Thought Content: positive for [place] and positive for Poverty of Content Judgement: Fair Judgement and Insight: No psychosis or SI improving alertness less restlessness and akathisia ongoing more alert Diagnostics Vital Signs (24Hr): Vital Signs - 24 hr 07/11/24 14:12 07/11/24 19:48 07/11/24 20:00 Temperature 96.9 F Pulse Rate 83 85 85 Respiratory Rate Blood Pressure 122/65 155/79 H 155/79 H Pulse Oximetry 95 95 Oxygen Delivery Method Room Air Room Air 07/12/24 08:00 Temperature 97.8 F Pulse Rate 85 Respiratory Rate 18 Blood Pressure 155/79 H Pulse Oximetry 95 Oxygen Delivery Method Room Air BMI result Body Mass Index 29.0 Labs 07/04/24 15:45 07/04/24 21:59 Labs: Laboratory Results - last 48 hr 07/11/24 09:56 COVID-19 ([facility]) Positive A COVID-19 Clin Com See Note Medications Medications Current Medications Acetaminophen (Acetaminophen 325 Mg Tablet) 650 mg PO Q6H PRN PRN Reason: Headache/Pain Mild Scale (1-3) Last Admin: 07/08/24 17:29 Dose: 650 mg Al Hydroxide/Mg Hydroxide (Magnesium Hydrox/Alum Hydrox 30 Ml Oral.Susp) 30 ml PO Q6H PRN PRN Reason: Heartburn/Nausea Cariprazine (Cariprazine Hcl 1.5 Mg Capsule) 1.5 mg PO DAILY [facility] Last Admin: 07/12/24 09:03 Dose: 1.5 mg Donepezil HCl (Donepezil Hcl 10 Mg Tablet) 10 mg PO BEDTIME [facility] Last Admin: 07/11/24 19:49 Dose: 10 mg Gabapentin (Gabapentin 300 Mg Capsule) 300 mg PO BEDTIME [facility] Last Admin: 07/11/24 19:48 Dose: 300 mg Lorazepam (Lorazepam 0.5 Mg Tablet) 0.5 mg PO TID [facility] Last Admin: 07/12/24 09:03 Dose: 0.5 mg Magnesium Hydroxide (Milk Of Magnesia 30 Ml Oral.Susp) 30 ml PO DAILY PRN PRN Reason: Constipation Memantine (Memantine Hcl 10 Mg Tablet) 10 mg PO BID [facility] Last Admin: 07/12/24 09:03 Dose: 10 mg Mirtazapine (Mirtazapine 30 Mg Tablet) 30 mg PO BEDTIME [facility] Last Admin: 07/11/24 19:49 Dose: 30 mg Pramipexole Dihydrochloride (Pramipexole Di-Hcl 0.25 Mg Tablet) 0.25 mg PO TID [facility] Propranolol HCl (Propranolol Hcl 10 Mg Tablet) 10 mg PO TID [facility]; Protocol Last Admin: 07/12/24 09:03 Dose: 10 mg Quetiapine Fumarate (Quetiapine Fumarate 25 Mg Tablet) 25 mg PO DAILY PRN PRN Reason: anxiety Last Admin: 07/08/24 17:23 Dose: 25 mg Thiamine HCl (Thiamine Hcl 100 Mg Tablet) 100 mg PO BID [facility] Last Admin: 07/12/24 09:03 Dose: 100 mg Trazodone HCl (Trazodone Hcl 50 Mg Tablet) 50 mg PO BEDTIME [facility] Last Admin: 07/11/24 19:48 Dose: 50 mg Allergies Allergies Allergy/AdvReac Type Severity Reaction Status Date / Time risperidone [From Risperdal] Allergy Intermediate UNKNOWN Verified 07/04/24 14:15 Sulfa (Sulfonamide Allergy Intermediate rash Verified 07/04/24 14:15 Antibiotics) From BENADRYL Allergy Intermediate DIZZY Uncoded 11/04/23 12:53 Assessment & Plan Assessment & Plan (1) Major depressive disorder, recurrent episode: Status: Acute Code(s): F33.9 - Major depressive disorder, recurrent, unspecified Assessment and Plan: ? bipolar 2 (2) Dementia: Qualifiers: Dementia behavioral or psychological symptom: unspecified whether behavioral, psychotic, or mood disturbance or anxiety Dementia severity: mild Dementia type: unspecified type Qualified Code(s): F03.A0 - Unspecified dementia, mild, without behavioral disturbance, psychotic disturbance, mood disturbance, and anxiety Status: Acute Code(s): F03.90 - Unspecified dementia, unspecified severity, without behavioral disturbance, psychotic disturbance, mood disturbance, and anxiety (3) POONAM (generalized anxiety disorder): Status: Acute Code(s): F41.1 - Generalized anxiety disorder (4) Akathisia: Status: Acute Code(s): G25.71 - Drug induced akathisia Plan The patient is an elderly descent female with a long history of major depressive disorder recurrent episode and dementia who was readmitted for exacerbation of depression and self neglect, unable to take care of herself in the community. She was advised to go back to the emergency room and she was assessed by crisis and transferring to this facility for psychiatric stabilization since her symptoms worsen it. Plan 1. Gather collateral information. We are going to arrange a family meeting with her to get more information all treatment plan. 2. Continue with medical workout. 3. 15 minute checks since the patient is able to contract for safety. 4. Restart antidepressants. 5. Remeron increased up to 30 mg p.o. q.h.s. on July 06 07/07/2024 Continue precautions. Urine moderate leukocytes no bacteria mirtazapine increase to 30 mg patient not psychotic remains depressed withdrawn with significant akathisia. For bipolar depression has generally done best Latuda Vraylar Rexulti but has developed significant akathisia try and increase propranolol as tolerated recheck COVID 07/09/2024 Continue Vraylar Trintellix monitor response to Mirapex lorazepam mirtazapine Monitor COVID response 07/10/2024 Continue plan of care check COVID for tomorrow discharge planning will better be able to check patient's gait 07/12/23 pt improving ok for d/c in am if stable inc pramipexole .25 tid monitor for adverse effects The patient does appear to require augmentation with antipsychotics to remain stable from depression despite potential side effects. Has not been able to be stabilized without some form of antipsychotic augmentation question of atypical bipolar Patient educated on: medication risk/benefits and medical condition Informed Consent: further education needed Reason for continued inpatient stay Substantial Risk for: inability to function and rapid decompensation Time Spent With Patient Time: Total time managing care of this patient today _28___ minutes.
[2024-07-12] MEDS: Pramipexole Di-HCL 0.25 MG TABLET PO ×2 (14:29→20:48)
[2024-07-12 20:00] VITALS: BP 145/72; PULSE 88; RESP 18; TEMP 36.6; O2SAT 95
[2024-07-12 20:47] VITALS: BP 145/72; PULSE 88
[2024-07-12] MEDS: Donepezil HCl 10 MG TABLET PO (20:47)
[2024-07-12] MEDS: Gabapentin 300 MG CAPSULE PO (20:48)
[2024-07-12] MEDS: traZODone HCL 50 MG TABLET PO (20:48)
[2024-07-12] MEDS: Mirtazapine 30 MG TABLET PO (20:51)
[2024-07-13] MEDS: Acetaminophen 325 MG TABLET 650 MG PO (05:15)
--- NOTE | 2024-07-13 08:28 | PM.PSYDC ---
DS: Providers Provider Date of Service: 07/13/24 Date of admission: 07/04/24 18:33 Date of discharge: 07/13/24 Primary care physician: Sai Physician Admitting clinician: Noé Aly Attending physician on discharge: Broderick Willett Discharging clinician: Broderick Willett DS: Diagnosis Discharge Diagnosis (1) Major depressive disorder, recurrent episode: Status: Acute (2) POONAM (generalized anxiety disorder): Status: Acute (3) Dementia: Status: Acute (4) Akathisia: Status: Acute DS: Medications Discharge Medications Home Medications: Previous Rx's ?Medication ?Instructions ?Recorded quetiapine 25 mg tablet (Seroquel) 25 mg PO DAILY PRN anxiety #30 tabs 06/06/24 gabapentin 100 mg capsule 300 mg (3 x 100 mg) PO BEDTIME 30 06/16/24 days #90 caps Vraylar 1.5 mg capsule 1.5 mg PO DAILY #30 caps 07/12/24 (cariprazine) donepezil 10 mg tablet 10 mg PO BEDTIME 30 days #30 tabs 07/12/24 lorazepam 0.5 mg tablet 0.5 mg PO TID 30 days #90 tabs 07/12/24 memantine 10 mg tablet 10 mg PO BID 90 days #180 tabs 07/12/24 mirtazapine 30 mg tablet 30 mg PO BEDTIME 30 days #30 tabs 07/12/24 pramipexole 0.25 mg tablet 0.25 mg PO TID 30 days #90 tabs 07/12/24 propranolol 10 mg tablet 10 mg PO TID 90 days #270 tabs 07/12/24 thiamine mononitrate (vit B1) 100 100 mg PO BID #60 tabs 07/12/24 mg tablet trazodone 50 mg tablet 50 mg PO BEDTIME Insomnia 90 days 07/12/24 #90 tabs Mental Status Exam Mental Status Exam Patient Appearance: Appropriate Patient Orientation: Person, Place and Situation Level of Consciousness: Awake Patient Behavior: Passive Behavior Comments: Legs frequently moving in bed in bicycycle motion Mood Description: Appropriate and Constricted Affect Description: Blunted Patient Cognition Impaired: Yes Ability to Follow Directions: Good Speech Pattern: Clear Memory Description: Episodic Impaired and Working Impaired Hallucinations: None Delusions: Not Present Thought Process: Distracted Thought Content: positive for [place] and positive for Poverty of Content Judgement: Fair Judgement and Insight: No psychosis or SI improving alertness less restlessness and akathisia ongoing more alert Data Data Completed and Pending Completed studies during hospitalization [Text1]: 07/07/24 07/09/24 07/11/24 19:40 12:16 09:56 COVID-19 (EMILIANA) Cancelled Positive A COVID-19 Clin Com Cancelled See Note Influenza Type A (PCR) NEGATIVE NEGATIVE Influenza Type B (PCR) NEGATIVE NEGATIVE RSV RNA Qual (PCR) NEGATIVE NEGATIVE SARS-CoV-2 RNA (RT-PCR) POSITIVE A POSITIVE A 07/05/24 Unknown Urine clean catch - Clean Catch Midstream Urine Culture - Final DS: Summary Hospital Course Hospital Course: [address] [place] [address] Psychiatry Admission Note (In) Signed Patient: Judy Rodrigues MR#: [id number] : 1950 Acct:[id number] Age/Sex: 73 / F Loc: .[facility] 178-[address]: Broderick Willett MD cc: Noé Aly MD~ HPI Date of Service: 07/05/24 Chief Complaint: Severe Depression poor self care Sources of Information: patient interviewed, chart reviewed and crisis/core team assessment reviewed HPI Subjective Notes: Qureshi Warning and Conditional Voluntary Narrative: The patient is a 73-year-old descendant female, , with a long history of major depressive disorder, dementia, several medical comorbidities, followed by Dr. Broderick Willett's as an outpatient. The patient had been admitted several times into this facility for similar presentations of exacerbation of depression with eating ability to take care of herself. According to Dr. Willett, the patient's functionality has worsened in the last weeks with severe self neglect, unable to take care of herself and poor compliance into her treatment. She was advised to go to the emergency room, she was assessed by crisis and transferring to this facility for psychiatric stabilization. On the intake interview, the patient reported that she had been more depressed with depressed mood, anhedonia, lack of energy, feelings of hopelessness and anxiety. She stated that she had been taking Vraylar recently. During the intake interview, the patient looks slightly confused, she was unable to remember when was the last time that she took her medications. At this moment, the patient adamantly denies psychotic symptoms me, adam or any other safety concerns but it is obvious that she can not take care of herself. We will restart her regular medications and reassess. Past Psychiatric History: Patient with long history of recurrent depression with multiple prior psychiatric hospitalizations. 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 no classic bipolar symptoms past depressive psychotic episodes not for a number of years Medical Evaluation Reviewed: Yes [facility] Medical History Dementia Nocturnal hypoxia Severe recurrent major depression w/psychotic features, mood-congruent Has daytime drowsiness Preoperative examination Elevated glucose Screening for colon cancer Screening for diabetes mellitus Obesity (BMI 30-39.9) Confused but orients easily Depression, major, severe recurrence Abnormal serum protein electrophoresis Mild recurrent major depression Anxiety and depression Encounter for Medicare annual wellness exam Removal of nell Depression with anxiety Abdominal distention Weight gain Major depression, recurrent, full remission POONAM (generalized anxiety disorder) Hypothyroidism Hyperparathyroidism Multinodular thyroid Vitamin D deficiency Osteoporosis Surgical History Hx of colonoscopy Hx of kyphoplasty Hx of section Family History: Depression Social History: Patient disabled has 1 son. Chronic anxiety has an intermittent difficult relationship with her mostly has not worked Trauma History: None noted Diagnostics Vital Signs (24Hr): Vital Signs - 24 hr 07/04/24 14:14 07/04/24 17:54 07/04/24 21:25 Temperature 97.4 F 98.2 F 97 F Pulse Rate 84 70 72 Respiratory Rate 18 13 18 Blood Pressure 105/58 L 107/56 L 146/68 H Pulse Oximetry 94 96 93 Oxygen Delivery Method Room Air Room Air Room Air 07/04/24 22:41 07/05/24 08:00 Temperature 97.3 F Pulse Rate 72 96 Respiratory Rate 18 Blood Pressure 146/68 H 99/67 Pulse Oximetry 96 Oxygen Delivery Method Room Air BMI result Body Mass Index 29.0 Labs 07/04/24 15:45 document embedded image 07/04/24 21:59 document embedded image Labs: Laboratory Results - last 48 hr 07/04/24 07/04/24 07/05/24 15:45 21:59 05:35 WBC 8.3 RBC 4.73 Hgb 14.2 Hct 44.5 MCV 94.1 MCH 30.0 MCHC 31.9 RDW 14.6 Plt Count 248 MPV 10.7 Immature Gran % (Auto) 0.4 Neut % (Auto) 74.1 H Lymph % (Auto) 16.7 L [place] % (Auto) 7.0 Eos % (Auto) 1.2 Baso % (Auto) 0.6 Lymph # (Auto) 1.4 Knox # (Auto) 0.6 Eos # (Auto) 0.1 Baso # (Auto) 0.1 Abs Immat Gran (auto) 0.03 Absolute Neuts (auto) 6.2 Absolute Nucleated RBC 0.000 Nucleated RBC % (auto) 0.0 Hold Purple Top Sodium 141 142 Potassium 4.4 3.8 Chloride 107 108 Carbon Dioxide 28 27 Anion Gap 10 L 11 L BUN 12 12 Creatinine 0.99 0.92 Estim Creat Clear Calc 46.8 50.3 Estimated GFR 55 > 60 Random Glucose 100 69 Calcium 9.5 D 9.4 Total Bilirubin 0.6 0.5 AST 25 26 ALT 23 25 Alkaline Phosphatase 83 84 Total Protein 7.1 7.1 Albumin 3.5 3.5 Triglycerides Cholesterol LDL Cholesterol, Calc HDL Cholesterol Urine Color Yellow Urine Appearance Clear Urine pH 7.5 Ur Specific [place] <= 1.005 Urine Protein Negative Urine Glucose (UA) Negative Urine Ketones Negative Urine Blood Negative Urine Nitrite Negative Ur Leukocyte Esterase Moderate (2+) H Urine RBC 0-2 Urine WBC 6-10 H Ur Squamous Epith Cells 0-2 Urine Bacteria None Seen Hyaline Casts 0-2 Salicylates < 5.0 L Acetaminophen < 3 Ethyl Alcohol < 10 COVID-19 (EMILIANA) Positive A COVID-19 Clin Com See Note 07/05/24 07/05/24 08:48 08:56 WBC RBC Hgb Hct MCV MCH MCHC RDW Plt Count MPV Immature Gran % (Auto) Neut % (Auto) Lymph % (Auto) Knox % (Auto) Eos % (Auto) Baso % (Auto) Lymph # (Auto) Knox # (Auto) Eos # (Auto) Baso # (Auto) Abs Immat Gran (auto) Absolute Neuts (auto) Absolute Nucleated RBC Nucleated RBC % (auto) Hold Purple Top SEE NOTE Sodium Potassium Chloride Carbon Dioxide Anion Gap BUN Creatinine Estim Creat Clear Calc Estimated GFR Random Glucose Calcium Total Bilirubin AST ALT Alkaline Phosphatase Total Protein Albumin Triglycerides 90 Cholesterol 140 LDL Cholesterol, Calc 78 HDL Cholesterol 44 Urine Color Urine Appearance Urine pH Ur Specific [place] Urine Protein Urine Glucose (UA) Urine Ketones Urine Blood Urine Nitrite Ur Leukocyte Esterase Urine RBC Urine WBC Ur Squamous Epith Cells Urine Bacteria Hyaline Casts Salicylates Acetaminophen Ethyl Alcohol COVID-19 ([facility]IL[facility]NA) COVID-19 Clin Com Meds/Allergies Allergies Allergies Allergy/AdvReac Type Severity Reaction Status Date / Time risperidone [From Risperdal] Allergy Intermediate UNKNOWN Verified 07/04/24 14:15 Sulfa (Sulfonamide Allergy Intermediate rash Verified 07/04/24 14:15 Antibiotics) From BENADRYL Allergy Intermediate DIZZY Uncoded 11/04/23 12:53 Mental Status Exam Mental Status Exam Patient Appearance: Unkempt Patient Orientation: Person and Situation Level of Consciousness: Awake Patient Behavior: Guarded and Passive Mood Description: Withdrawn Affect Description: Constricted Patient Cognition Impaired: Yes Ability to Follow Directions: Good Speech Pattern: Clear Hallucinations: None Delusions: Ideas of Reference Thought Process: Distracted and Slowed Thinking Thought Content: positive for [place] and positive for Poverty of Content Judgement: Poor Assessment & Plan Assessment & Plan (1) Major depressive disorder, recurrent episode: Status: Acute Code(s): F33.9 - Major depressive disorder, recurrent, unspecified (2) Dementia: Status: Acute Qualifiers: Dementia type: unspecified type Dementia severity: mild Dementia behavioral or psychological symptom: unspecified whether behavioral, psychotic, or mood disturbance or anxiety Qualified Code(s): F03.A0 - Unspecified dementia, mild, without behavioral disturbance, psychotic disturbance, mood disturbance, and anxiety Code(s): F03.90 - Unspecified dementia, unspecified severity, without behavioral disturbance, psychotic disturbance, mood disturbance, and anxiety Plan The patient is an elderly descent female with a long history of major depressive disorder recurrent episode and dementia who was readmitted for exacerbation of depression and self neglect, unable to take care of herself in the community. She was advised to go back to the emergency room and she was assessed by crisis and transferring to this facility for psychiatric stabilization since her symptoms worsen it. Plan 1. Gather collateral information. We are going to arrange a family meeting with her to get more information all treatment plan. 2. Continue with medical workout. 3. 15 minute checks since the patient is able to contract for safety. 4. Restart antidepressants. Patient educated on: diagnosis and therapeutic strategies Informed Consent: further education needed Reason for continued inpatient stay Substantial Risk for: inability to function, rapid decompensation and med/psych decompensation Statement Statement: I have reviewed the history and physical and performed a pertinent examination on my patient. No changes have occurred unless specified. If the History and Physical was not performed prior to admission, the Hospitalist's service will be consulted for completing the admission physical. Time Spent With Patient Time: Total time managing care of this patient today __45__ minutes. Dictated By: oNé Aly MD Signed By: <Electronically signed by Noé Aly MD> 07/05/24 1526 Hospital Course Pt was adm and unfortunately found covid pos she had been quite depressed with inability to fx slowed mentation difficulty with adl for over 6 wks. Was bradykinetic and significantly akathetic. She had been on rexulti now chanfed back to [facility]. She was cooperative with isolation. Like at home the patient had significant akathisia that made things very difficult for her to function. Ativan was changed to 0.5 t.i.d. and she was started on pramipexole 0.1 t.i.d. for depression and off-label for akathisia and she did show significant improvement. She was also on propranolol 10 t.i.d. also for akathisia Mirtazapine was increased to 30 mg at bedtime. The patient's mood was improved functioning is better her thinking was clear by the time of discharge in 07/13/2024. She was not psychotic some difficulty with episodic memory attention and working attention had improved appetite and improved patient was [facility] and the pace program recommended OT and PT Time Spent with Patient Time attestation: Total time managing care of this patient today ____ minutes. Discharge Plan Discharge Anticipated Discharge Date/Time: 07/13/24 07:56 Patient Disposition: Home Health Service Discharge Diagnosis: major depression recurrent generalized anxiety vascular dementia Referrals: [facility] [Other] - 07/13/24 (Your manager social services Grace will follow up with you after discharge. Your Pace team will contact you once you are home and schedule your primary care follow up. Your appointment will be within 48 hours of discharge. Your Pace services will resume at time of discharge. ) Broderick Willett MD [Other] - 07/20/24 10:30 am (Your next appointment with Dr Willett is 07/20/14 at 10:30.) Nicolas ARRIOLAA [Other] - 07/14/24 (Your VNA services for medication management with [facility] will resume on 07/14/24.) Discharge Medications: New lorazepam 0.5 mg Tablet 0.5 mg PO TID 30 Days Qty: 90 2RF mirtazapine 30 mg Tablet 30 mg PO BEDTIME 30 Days Qty: 30 2RF pramipexole 0.25 mg Tablet 0.25 mg PO TID 30 Days Qty: 90 2RF Continued quetiapine [Seroquel] 25 mg tablet 25 mg PO DAILY PRN (Reason: anxiety) Qty: 30 1RF trazodone 50 mg tablet 50 mg PO BEDTIME 90 Days Qty: 90 1RF donepezil 10 mg tablet 10 mg PO BEDTIME 30 Days Qty: 30 5RF propranolol 10 mg tablet 10 mg PO TID 90 Days Qty: 270 1RF Protocol: Hold for SBP/HR < HOLD for SBP < : 90 HOLD for HR < : 60 memantine 10 mg Tablet 10 mg PO BID 90 Days Qty: 180 1RF thiamine mononitrate (vit B1) 100 mg tablet 100 mg PO BID Qty: 60 3RF Vraylar 1.5 mg capsule 1.5 mg PO DAILY Qty: 30 2RF gabapentin 100 mg capsule 300 mg PO BEDTIME 30 Days Qty: 90 2RF Discontinued mirtazapine 15 mg tablet 15 mg PO BEDTIME Qty: 30 1RF lorazepam 0.5 mg tablet 1 mg PO BEDTIME 30 Days Qty: 60 2RF Discharge Orders: Discharge Order (Routine); Ordered 07/13/24 Ordered By: Broderick Willett Diet: Advance to usual diet Activity on Discharge: As tolerated Stand Alone Forms: Patient Portal Discharge page, Community Support Print Language: French Care Plan Goals: stabilize mood increase physical activity maintain nutrition improve ambulation decrease restlessness Health Concerns: recent covid memory disorder chronic back pain spondylosis osteoporosis Plan of Treatment: pace program management vna for maintaining med managent mental status moitoring pt/ot eval in the home new medication pramipexole for restlessness/ depression vraylar for depression trintellix mirtazapine for depression donepizil memantine for memory and behavior Assessment: calm shuffling gait mood imroved pleasant eating improved alert not sob less confusion Discharge Date/Time: 07/13/24 10:50
[2024-07-13] MEDS: Pramipexole Di-HCL 0.25 MG TABLET PO (08:50)
[2024-07-13] MEDS: Thiamine HCL 100 MG TABLET PO (08:50)
[2024-07-13] MEDS: Cariprazine HCl 1.5 MG CAPSULE PO (08:50)
[2024-07-13] MEDS: Memantine HCl 10 MG TABLET PO (08:50)
[2024-07-13] MEDS: Propranolol HCL 10 MG TABLET PO (08:50)
[2024-07-13] MEDS: LORazepam 0.5 MG TABLET PO (08:50)
== END 2024-07-13 10:50 | disposition home health service (06) | DRG 885 ==
LOC: HO.ED 15:03 → HO.PGERI 19:00
PROVIDERS: Physician Assistant Medical; Admitting Provider Psychiatry & Neurology Psychiatry; Emergency Provider Emergency Medicine; Visit Provider Psychiatry & Neurology Psychiatry
DX: F33.9 Major depressive disorder, recurrent, unspecified (principal); U07.1 COVID-19; F41.1 Generalized anxiety disorder
CPT/HCPCS: 0241U; 36415; 80053; 80061; 80143; 80179; 80307; 81001; 85025; 87086; 87635; 93005; 99285; S9485

== ENCOUNTER → 2024-07-04 14:15 | Outpatient (BNV) | payer OTHER, SELFPAY | PROVIDERS: Admitting Provider Psychiatry & Neurology Psychiatry; Emergency Provider Emergency Medicine; Visit Provider Internal Medicine | DX: F03.A0 Unspecified dementia, mild, without behavioral disturbance, psychotic disturbance, mood disturbance, and anxiety (principal); F33.9 Major depressive disorder, recurrent, unspecified | CPT/HCPCS: 93010 ==

== ENCOUNTER → 2024-07-04 18:33 | Outpatient (BNV) | payer OTHER, SELFPAY | PROVIDERS: Admitting Provider Psychiatry & Neurology Psychiatry; Emergency Provider Emergency Medicine; Visit Provider Psychiatry & Neurology Psychiatry | DX: F33.2 Major depressive disorder, recurrent severe without psychotic features (principal); F03.A0 Unspecified dementia, mild, without behavioral disturbance, psychotic disturbance, mood disturbance, and anxiety | CPT/HCPCS: 99231; 99232 ==

== ENCOUNTER → 2024-07-04 18:33 | Outpatient (BNV) | payer OTHER, SELFPAY | PROVIDERS: Admitting Provider Psychiatry & Neurology Psychiatry; Emergency Provider Emergency Medicine; Visit Provider Psychiatry & Neurology Psychiatry | DX: F33.9 Major depressive disorder, recurrent, unspecified (principal); F03.A0 Unspecified dementia, mild, without behavioral disturbance, psychotic disturbance, mood disturbance, and anxiety | CPT/HCPCS: 90792; 99232 ==

== ENCOUNTER 2024-07-20 10:10 | Outpatient (AMB) | payer OTHER, SELFPAY ==
--- NOTE | 2024-07-20 10:51 | A.OFFPSYCH_ITS ---
Intake Intake Visit Reasons: depression Allergies risperidone [From Risperdal] Allergy (Intermediate, Verified 07/04/24 14:15) UNKNOWN Sulfa (Sulfonamide Antibiotics) Allergy (Intermediate, Verified 07/04/24 14:15) rash From BENADRYL Allergy (Intermediate, Uncoded 11/04/23 12:53) DIZZY HPI- Psychiatric Chief Complaint: depression HPI Narrative: Patient seen in psychiatric follow-up. Patient's mood has improved she is having problems sleep seems to be tolerating low-dose Vraylar with much less EPS much less akathisia. Seroquel at bedtime Namenda 10 b.i.d. gabapentin at HS giovana azepam 0.5 t.i.d. and Mirapex 0.25 t.i.d. seems to be helpful for mood and restlessness Past Psychiatric History: Patient with long history of recurrent depression with multiple prior psychiatric hospitalizations. 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 no classic bipolar symptoms past depressive psychotic episodes not for a number of years Mental Status Exam Mental Status Exam Patient Appearance: Appropriate Patient Orientation: Person, Place and Situation Level of Consciousness: Awake Patient Behavior: Passive Behavior Comments: Legs frequently moving in bed in bicycycle motion Mood Description: Appropriate and Constricted Affect Description: Calm and Blunted Patient Cognition Impaired: Yes Ability to Follow Directions: Good Speech Pattern: Clear Memory Description: Episodic Impaired and Working Impaired Hallucinations: None Delusions: Not Present Thought Process: Distracted Thought Content: positive for [place] and positive for Poverty of Content Judgement: Fair Judgement and Insight: No psychosis or SI improving alertness less restlessness and akathisia ongoing more alert sleep improved Assessment and Plan Assessment & Plan (1) Major depressive disorder, recurrent episode: Status: Acute Code(s): F33.9 - Major depressive disorder, recurrent, unspecified (2) POONAM (generalized anxiety disorder): Status: Acute Code(s): F41.1 - Generalized anxiety disorder (3) Dementia: Status: Acute Qualifiers: Dementia type: unspecified type Dementia severity: mild Dementia behavioral or psychological symptom: unspecified whether behavioral, psychotic, or mood disturbance or anxiety Qualified Code(s): F03.A0 - Unspecified dementia, mild, without behavioral disturbance, psychotic disturbance, mood disturbance, and anxiety Code(s): F03.90 - Unspecified dementia, unspecified severity, without behavioral disturbance, psychotic disturbance, mood disturbance, and anxiety (4) Akathisia: Status: Acute Code(s): G25.71 - Drug induced akathisia (5) Insomnia: Status: Acute Qualifiers: Insomnia type: unspecified Qualified Code(s): G47.00 - Insomnia, unspecified Code(s): G47.00 - Insomnia, unspecified Plan Continue plan of care increase Seroquel to 50 mg at bedtime for insomnia. Patient appears to require antipsychotic treatment for her severe depressions psychosis and mixed states. Consider retreatment with TMS strongly urged daily walks light exposure perhaps adult day health Medications: New quetiapine (Seroquel) 50 mg PO BEDTIME 30 tabs 4RF Counseling and coordination of Care Pt. Self Management counseling: Behavior activation Details: I spent [30] minutes reviewing the record, seeing the patient and documenting in the medical record. Counseling provided to the patient/caregiver as outlined below. Addressed patient/caregiver concerns regarding current medication regime including effective adherence. Addressed patient/caregiver concerns regarding diagnosis and prognosis including accuracy of diagnosis, prognosis over time, impact of diagnosis. Addressed patient/caregiver concerns regarding impact of recent stressors. [facility] Medical History Dementia Nocturnal hypoxia Severe recurrent major depression w/psychotic features, mood-congruent Has daytime drowsiness Preoperative examination Elevated glucose Screening for colon cancer Screening for diabetes mellitus Obesity (BMI 30-39.9) Confused but orients easily Depression, major, severe recurrence Abnormal serum protein electrophoresis Mild recurrent major depression Anxiety and depression Encounter for Medicare annual wellness exam Removal of nell Depression with anxiety Abdominal distention Weight gain Major depression, recurrent, full remission POONAM (generalized anxiety disorder) Hypothyroidism Hyperparathyroidism Multinodular thyroid Vitamin D deficiency Osteoporosis Surgical History Hx of colonoscopy Hx of kyphoplasty Hx of section Family History Father Myocardial infarction CVD (cardiovascular disease) Mother Dementia Alzheimer disease Other Mental health disorder Social History Household Members: Spouse Housing: House Do you presently have visiting nurse or other home services: Yes (come once a week to fill medication) Alcohol intake: never Comment: 1:1 sitter at bedside Patient Tobacco Use Status: Never used Tobacco e-Cigarette/Vaping Use: Never Used Second Hand Smoke Exposure: No Advance Directives Date on File: 09/04/23 service: No Current occupational status: unemployed Sexual orientation: Straight/Heterosexual Cognitive needs: No Hearing needs: No Social History: Patient disabled has 1 son. Chronic anxiety has an intermittent difficult relationship with her mostly has not worked Substance History: Denies Trauma History: None noted Coding Level of Care Code Est Pt Level 4 (37740) Diagnoses Major depressive disorder, recurrent episode F33.9 POONAM (generalized anxiety disorder) F41.1 Mild dementia, unspecified dementia type, unspecified whether behavioral, psychotic, or mood disturbance or anxiety F03.A0 Dementia type: unspecified type Dementia severity: mild Dementia behavioral or psychological symptom: unspecified whether behavioral, psychotic, or mood disturbance or anxiety Akathisia G25.71 Insomnia, unspecified type G47.00 Insomnia type: unspecified
--- OUTSIDE RECORDS SUMMARY | 2024-07-20 12:03 | XMS_ITS | Continuity of Care Document ---
[facility] Organization [facility] Address [address] [address] Phone Care Team Providers Care Property Insurance Inspector Name Role Phone Ananda FAST BRIM POUNCERLiss Unavailable Unavailab le Allergies, Adverse Reactions, Alerts Substance Reaction Status Criticality risperidone Active No Information Sulfa (Sulfonamide Antibiotics) Rash Active No Information DIPHENHYDRAMINE HCL Dizziness Active Unable t o Assess Medications Medication Instructions Dosage Effective Dates (start - stop) Status Comments lorazepam 0.5 mg tablet Take 1 tablet by mouth twice daily as needed for anxiety. - Active Per pre-enrollment, script per Dr. Willett (psychiatry). Last filled 01/18/24 per [facility], for quantity 60 (30 day supply if used BID). Vraylar 1.5 mg capsule Script per psychiatry: Take one capsule by mouth once daily. - Active 07/04/24: Scrip t per psychiatry Dr. Willett at discharge from [facility]. pramipexole 0.25 mg tablet Script per psychiatry: Take 1 tablet by mouth 3 times daily. - Active 07/04/24: Script per psychiatry sent at discharge from [facility]. Calcium 500 + D 500 mg-5 mcg (200 unit) tablet Take 1 tablet by mouth twice daily. - Active 07/06/24: New medication; okay with next packs. loperamide 2 mg tablet Take 2 tablets [...] mouth once daily. - Active Per pre-enrollment. melatonin 5 mg tablet Take 1 tablet [...] Per pre-enrollment, script per Dr. Willett (psychiatry). lorazepam 0.5 mg tablet Take 1 tablet by mouth twice daily as needed for anxiety. - No Longer Active Per pre-enrollment, script per Dr. Willett (psychiatry). Last filled 01/18/24 per [facility], for quantity 60 (30 day supply if used BID). Rexulti 0.5 mg tablet Take 1 tablet by mouth once daily. - No Longer Active Per pre-enrollment, script per Dr. Willett (psychiatry). Rexulti 1 mg tablet Take 1 tablet by mouth once daily. - No Longer Active Per pre-enrollment, script per Dr. Willett (psychiatry). Procedures Procedure Date OFFICE/OUTPATIENT VISIT EST OFFICE/OUTPATIENT VISIT EST IMMUNIZATION ADMIN HZV VACC [...] Diagnoses Date Provider Providers Copied on Encounter [facility], [address] [place] [address], [place], [place], [id number], tel:[phone] [place] No Information [address] P[address]is Liss. [address] [place], [place], [id number], [place]. tel:[phone] [facility], [address] [address], [place], [place], [id number], tel:[phone] [place] No Information 5 Pitsiladis Liss. [address] [facility] [place], [id number], [place]. tel:[phone] OFFICE/OUTPA TIENT VISIT EST [facility], [address] [facility], [place], [place], [id number], [place] tel:[phone] [place] Post Hospital Evaluation (chief complaint) History of UTIMixed hyperlipidemi aHypothyroidi sm, unspecified typeOsteoporo sis without current pathological fracture, unspecified osteoporosis typeHyperpara thyroidismVir al gastroenterit isStage 3a chronic kidney diseaseMild dementia with other behavioral disturbance, unspecified dementia typeRecurrent major depressive disorder, in full remissionGAD (generalized anxiety disorder) 5 [address] Liss[address] [place], [id number], [place]. tel:[phone] [facility], 1 [facility], [place], [place], [id number], [place] tel:[phone] [place] Recurrent major depressive disorder, in partial remissionGAD (generalized anxiety disorder) [address], [place], [place], [id number], [place]. tel:[phone] OFFICE/OUTPA TIENT VISIT [facility], 1 [facility], [place], [place], [id number], [place] tel:[phone] [place] Acute Visit (chief complaint) Genitourinary syndrome of menopause 4 [address]is Liss[address] [place], [place], [id number], [place]. tel:[phone] [facility], [address] [facility], [place], [place], [id number], [place] tel:[phone] [place] No Information [address], [place], [place], [id number], [place]. tel:[phone] OFFICE/OUTPA TIENT VISIT [facility], 1 [facility], [place], [place], [id number], [place] tel:[phone] [place] Follow-up (chief complaint) Shortness of breathRecurre nt major depressive disorder, in partial remissionGAD (generalized anxiety disorder)Inso mnia, unspecified type 4 [address] [place], [place], [id number], [place]. tel:[phone] OFFICE/OUTPA TIENT VISIT EST [facility], [address], [place], [place], [id number], [place] tel:[phone] [place] Follow-up (chief complaint) Mixed hyperlipidemi aOsteoporosis without current pathological fracture, unspecified osteoporosis typeAdvanced directives, counseling/di scussion 4 [address] Liss[address] [place], [place], [id number], [place]. tel:[phone] [facility], [address] [facility], [place], [place], [id number], [place] tel:[phone] [place] Other specified personal risk factors, not elsewhere classifiedUns pecified visual disturbance Sep- 4 P[address]iladis Liss. [address] [place], [place], [id number], [place]. tel:[phone] [facility], [address] [facility], [place], [place], [id number], [place] tel:[phone] [place] No Information Sep- 4 [address]is Liss[address] [place], [place], [id number], [place]. tel:[phone] [facility], [address] [facility] [address], [place], [place], [id number], [place] tel:[phone] [place] No Information Sep-1 4 [address] [place], [place], [id number], [place]. tel:[phone] [facility], [address] [facility] [address], [place], [place], [id number], [place] tel:[phone] [place] Major depressive disorder, recurrent, in partial remission Sep-1 4 P[place] Leija. [address] [place], [place], [id number], [place]. tel:[phone] [facility], 1 [facility], [place], [place], [id number], [place] tel:[phone] [place] Encounter for rehabilitatio n evaluation Sep-0 4 Javier Rosalina. [address], [place], [place], [id number], [place]. tel:[phone] [facility], 1 [facility], [place], [place], [id number], [place] tel:[phone] [place] Encounter for rehabilitatio n evaluation Sep-0 4 Gerardo Wilson. 101 [facility], [place], [address]. tel:[phone] [facility], [address] [facility], [place], [place], [id number], [place] tel:[phone] [place] Encounter for nutritional assessmentCla ss 1 obesity with serious comorbidity and body mass index (BMI) of 32.0 to 32.9 in adult, unspecified obesity typeBody mass index [BMI] 32.0-32.9, adult Sep-0 4 Normile Keena. [address] [place], [place], [id number], [place]. tel:[phone] OFFICE/OUTPA TIENT VISIT EST [facility], [address] [facility] [address], [place], [place], [id number], [place] tel:[phone] [place] Post Enrollment Evaluation (chief complaint) History of [...] osteoporosis type Sep-0 4 [address] Liss[address] [facility] [place], [id number], [place]. tel:[phone] [facility], [address] [facility], [place], [place], [id number], [place] tel:[phone] [place] No Information Sep-0 4 Normile Keena. [address] [facility] [address], [place], [place], [id number], [place]. tel:[phone] Family History Family Member Type Diagnosis Age [...] name Insurance type Covered green party ID Authorcandicea divya(s) [facility] 16 [id number] [facility] 16 [id number] [facility] 16 [id number] Social History Type Description Quantity Date Captured Comments Sex Female Smoking Status No Information Chief Complaint And Reason For Visit No Information Reason For Referral Reason For Referral No Information Plan Of Treatment Date Type Action Status Referral Ordered: Dentistry (related to Need for dental care) ordered Referral Ordered: [facility] (related to Visual changes) ordered Referral Ordered: Referrals: Dentistry. Evaluate and treat ordered Referral Ordered: Referrals: [facility]. Evaluate and treat ordered Referral Referred To: Dr. Willett Ordered: Referrals: Psychiatry. Dr. Willett Appointment date/timeframe: 02/16/2024 ordered Appointment RodriguesLeonardo harveyith BOOKED Appointment Rodrigues, Judy BOOKED Future Order: Lab Order Urinalys is, Macroscopic ([id number]), Ordered on: Ordered History Of Present Illness Encounter Date Complaint History Of Prese nt Illness Post Hospital Evaluation Judy i s a 73 year old female who is seen today for a post-hospital evaluation. She is accompanied by her .In review of recent events, Judy was seen at [facility] on 06/18/24 with vomiting and LLQ abdominal [...] on 06/22 x1 and again this morning 06/23 AM. She's had one thing to drink [...] frequency, hesitancy, no fevers. The large ketones on urine dip suggest she is dehydrated. We were unfortunately unable to get labs today.Plan for today involves the following: -Do not take propanolol medicine today () or tomorrow (Thursday). If you are feeling better Thursday, take it that day.-Medicine loperamide sent to pharmacy for diarrhea. -Medicine acetaminophen sent to pharmacy for pain.-Drink lots of water. -Call us at [phone] if you feel you are getting worse or think you may need to go to the hospital.-Follow up with Dr. Willett 07/04/24. Acute Visit Judy is a 73 ye [...] today.History of ER visits/Falls/SNF/Hospitalizations:-05/25/23 -06/14/23: Inpatient at [facility]. No other hospitalizations, ER visits since then. -Before COVID, was on 5th floor x 1.5 years at [place] on their psychiatric unit. Then was for a few months on 1st floor in a unit x few months for psychiatric concerns. Specialists:-Dr. Fausto Willett at [facility]. Seeing him tomorrow. He is a [...] Social: Judy lives in the community in [place] with her , just the 2 of them. They have always lived in the area. They have family in [place] and [place]. Herve has a son and daughter from [...] they think possibly 1 year ago at [facility]. Bone density: Unclear when her last DEXA was. Not seen in pre-enrollment records from [place]. Osteoporosis listed in her problem list with [...] Doxepin, [place]. Admitted in early 2023 to [place] with ???anxiety, racing thoughts, insomnia???. Underwent ECT while there. She was then transferred to medical service for medical concerns after refusing her medications for several days.-She reports more recent treatment with TMS, supposed to be every 6 months, finished around January 2024.-Continue following with Dr. Willett given complex psychiatric history. Pending most recent note and she has next follow up 07/04/24. -Continue PRN lorazepam, mirtazapine 30mg daily, Seroquel [...] Doxepin, [place]. Admitted in early 2023 to [place] with ???anxiety, racing thoughts, insomnia???. Underwent ECT [...] to be every 6 months, finished around January. -Continue following with Dr. Willett given complex psychiatric history. Pending most recent notes. -Continue PRN lorazepam, mirtazapine 30mg daily, Seroquel 50mg at bedtime, trazodone 50mg at bedtime, Trintellix 20mg daily. Pending updated psych note with any medication changes. Related to Recurrent major depressive disorder, in full remission -Per pre-enrollment (01/31/22 page 38) states ???dementia??? as a discharge diagnosis and further in the record (page 44) states ???mild vascular dementia??? however I do not have access to any imaging to support cause of this. -Significant psychiatric history with behaviors documented in pre-enrollment [...] disturbance, unspecified dementia type -Per pre-enrollment (01/31/22 page 2); labs show eGFR 54, creatinine 1.01. 04/11/22 eGFR 49, creatinine 1.11. 11/2022 eGFR 46, creatinine 1.17. -02/2024 eGFR 58, creatinine 1.02. -Avoid nephrotoxins, encourage hydrations, BP management. Related to Stage 3a chronic kidney disease -Vomiting 06/17- resolved with Zofran use x 2. Diarrhea on 06/22 and 06/23. Poor PO intake. BP soft, lips very dry, cracking, pallor to face, lips, hands. -Oral rehydration in the office and Tylenol 1000mg PO for body aches. Repeat BP still soft; advised to hold propanolol x 2-3 days. Continue liberal fluid intake. report worsening or new improvement in the next few days. Related to Viral gastroenteritis -Per pre-enrollment (01/31/22 page 24), noted in problem list. -She has co-existing CKD3A on labs today. PTH 02/15/24 at 60, Ca 9.5. -Continue routine labs. Consider [facility] consult as needed for treatment recommendations. Related to Hyperparathyroidism -Per pre-enrollment (01/31/22 page 24), on problem list and patient reports this history as well. -Fractures when younger and not noted as fragility fractures. Doesn't appear to be currently receiving treatment. She believes she had an IV infusion a long time ago. We have limited records. -She is on some medications that increase her risk for fragility fractures including Trintellix.-Unclear to me when her last DEXA scan was. Order placed for updated DEXA.-Add Calcium-Vitamin D supplement. Script sent. Related to Osteoporosis without current pathological fracture, unspecified osteoporosis type -Per pre-enrollment (01/31/22 page 24), history of hypothyroidism on problem list. Unclear etiology. -04/11/22 TSH 2.65.-I do not see that she is on levothyroxine. Unclear if she was ever on it in the past.-Labs 02/2024 TSH 3.15.-Repeat labs ordered. Related to Hypothyroidism, unspecified type -02/2024 TC 224, HDL 67, LDL 131, TG 151 (non-fasting).-HLD not listed on pre-enrollment records. She is on some psychiatric medications that increase her risk of HLD including Seroquel, Rexulti. her believes she has been told before that her cholesterol is high but says she has never been on medication because of it. They are agreeable to starting one.-Started atorvastatin 20mg once daily in the evening in March 2024.-Recheck labs in 3-6 months. Related to Mixed hyperlipidemia -At [facility] appt, jinny t and spouse report she had a UTI not too long ago and it was ???very bad??? per pt/spouse. They say she was treated with antibiotics and improved. -Sent urine for U/A and cx today. -Encouraged fluids. Related to History of UTI -Per pre-enrollment (01/31/22 page 24) described as generalized anxiety disorder. She has a complicated psychiatric history and follows closely with her psychiatrist Dr. Willett. Per pre-enrollment, has been treated in the past with ECT, Trintellix, Doxepin, [place]. Admitted in early 2023 to [facility] with ???anxiety, racing thoughts, insomnia???. Underwent ECT [...] Doxepin, [place]. Admitted in early 2023 to [place] with ???anxiety, racing thoughts, insomnia???. Underwent ECT [...] is possible however the history in the [facility] records suggests possible FARNAZ. Will explore [...] Doxepin, [place]. Admitted in early 2023 to [place] with ???anxiety, racing thoughts, insomnia???. Underwent ECT [...] Doxepin, [place]. Admitted in early 2023 to [place] with ???anxiety, racing thoughts, insomnia???. Underwent ECT [...] medications, hypothyroidism. -Routine screening labs. Periodic weights. Light Cleaner to see her for screening and counseling if indicated. Related to BMI 32.0-32.9,adult -Per pre-enrollment (01/31/22 pg 30).-BMI 32.2 today. -Routine screening labs. Periodic weights. Light Cleaner to see her for screening and counseling [...] Doxepin, [place]. Admitted in early 2023 to [place] with ???anxiety, racing thoughts, insomnia???. Underwent ECT [...] Related to POONAM (generalized anxiety disorder) -At [facility] appt, jinny t and spouse report she [...] She did have parathyroid imaging in 03/2019 ([facility]) with results stating There is [...] Doxepin, [place]. Admitted in early 2023 to [place] with ???anxiety, racing thoughts, insomnia???. Underwent ECT [...]
--- OUTSIDE RECORDS SUMMARY | 2024-07-20 12:03 | XMS_ITS | Clinical Summary ---
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 [id number] Problems Condition Name Condition Details Condition Category [...] 10 mg tablet 11-19 00:00: 00 Yes [id number] 10 mg BEDTIME 10 mg BEDTIME (route: oral) Med Classific ation: Cognitive Disorder Therapy folic acid 1 mg tablet 11-19 00:00: 00 Yes [id number] 1 mg DAILY 1 mg BCEK Y (route: oral) Med Classific ation: Electroly te Balance-N utritiona l Products lorazepam 0.5 mg tablet 11-19 00:00: 00 06-21 23:59 :00 No [id number] 0.5 mg 2 TIMES DAILY 0.5 mg 2 TIMES DAILY (route: oral) Med Classific ation: Central Nervous System Agents melatonin 5 mg capsule 11-19 00:00: 00 07-17 23:59 :00 No [id number] 5 mg BEDTIME 5 mg BEDTIME (route: oral) Med Classific ation: Central Nervous System Agents memantine 10 mg tablet 11-19 00:00: 00 Yes [id number] 10 mg 2 TIMES DAILY 10 mg 2 TIMES DAILY (route: oral) Med Classific ation: Cognitive Disorder Therapy propranolol 10 mg tablet 11-19 00:00: 00 Yes [id number] 10 mg 3 TIMES DAILY 10 mg 3 TIMES DAILY (route: oral) Med Classific ation: Cardiovas cular Therapy Agents quetiapine 25 mg tablet 09-03 00:00: 00 11-19 00:00 :00 No [id number] 25 mg BEDTIME 25 mg BEDTIME (route: oral) Med Classific ation: Central Nervous System Agents quetiapine 25 mg tablet 09-03 00:00: 00 11-19 00:00 :00 No [id number] 25 mg BEDTIME 25 mg BEDTIME (route: oral) Med Classific ation: Central Nervous System Agents thiamine HCl (vitamin B1) 100 mg tablet 11-19 00:00: 00 07-17 23:59 :00 No [id number] 100 mg DAILY 100 mg DAILY (route: oral) Med Classific ation: Electroly te Balance-N utritiona l Products trazodone 50 mg tablet 11-19 00:00: 00 Yes [id number] 50 mg BEDTIME 50 mg BEDTIME (route: oral) Med Classific ation: Central Nervous System Agents Trintellix 20 mg tablet 11-19 00:00: 00 06-21 23:59 :00 No [id number] 20 mg DAILY 20 mg DAILY (route: oral) Med Classific ation: Central Nervous System Agents mirtazapine 15 mg tablet 10-22 00:00: 00 11-19 00:00 :00 No [id number] 1 tablet BEDTIME 1 tablet BEDTIME (route: oral) Med Classific ation: Central Nervous System Agents Rexulti 0.5 mg tablet 10-22 00:00: 00 11-19 00:00 :00 No [id number] 1 tablet DAILY 1 tablet DAILY (route: oral) Med Classific ation: Central Nervous System Agents ibuprofen 200 mg tablet 11-19 00:00: 00 06-21 23:59 :00 No [id number] 1 tablet EVERY 6 HOURS 1 tablet EVERY 6 HOURS (route: oral) Med Classific ation: Analgesic , Anti-infl ammatory or Antipyret ic mirtazapine 30 mg tablet 11-19 00:00: 00 Yes [id number] 1 tablet BEDTIME 1 tablet BEDTIME (route: oral) Med Classific ation: Central Nervous System Agents quetiapine 50 mg tablet 11-19 00:00: 00 06-21 23:59 :00 No [id number] 1 tablet BEDTIME 1 tablet BEDTIME (route: oral) Med Classific ation: Central Nervous System Agents Rexulti 1 mg tablet 11-19 00:00: 00 05-26 23:59 :00 No [id number] 1 tablet EVERY AM 1 tablet EVERY AM (route: oral) Med Classific ation: Central Nervous System Agents Rexulti 1 mg tablet 11-19 00:00: 00 06-21 23:59 :00 No [id number] 0.5 tablet BEDTIME 0.5 tablet BEDTIME (route: oral) Med Classific ation: Central Nervous System Agents atorvastati n 20 mg tablet 06-21 00:00: 00 Yes [id number] 1 tablet BEDTIME 1 tablet BEDTIME (route: oral) Med Classific ation: Cardiovas cular Therapy Agents lorazepam 1 mg tablet 06-21 00:00: 00 07-15 23:59 :00 No [id number] 1 mg BEDTIME 1 mg BEDTIME (route: oral) Med Classific ation: Central Nervous System Agents quetiapine 200 mg tablet 06-21 00:00: 00 07-17 23:59 :00 No [id number] 200 mg BEDTIME 200 mg BEDTIME (route: oral) Med Classific ation: Central Nervous System Agents Trintellix 20 mg tablet 06-21 00:00: 00 07-17 23:59 :00 No [id number] 1 tablet EVERY AM 1 tablet EVERY AM (route: oral) Med Classific ation: Central Nervous System Agents gabapentin 300 mg capsule 1-14 00:00: 00 Yes [id number] 1 capsule BEDTIME 1 capsule BEDTIME (route: oral) Med Classific ation: Central Nervous System Agents ondansetron HCl 4 mg tablet -14 00:00: 00 07-17 23:59 :00 No [id number] 1 tablet EVERY 8 HOURS 1 tablet EVERY 8 HOURS (route: oral) Med Classific ation: Gastroint estinal Therapy Agents lorazepam 0.5 mg tablet 2- 00:00: 00 Yes [id number] 1 tablet 3 TIMES DAILY 1 tablet 3 TIMES DAILY (route: oral) Med Classific ation: Central Nervous System Agents pramipexole 0.25 mg tablet - 00:00: 00 Yes [id number] 1 tablet 3 TIMES DAILY 1 tablet 3 TIMES DAILY (route: oral) Med Classific ation: Central Nervous System Agents quetiapine 25 mg tablet - 00:00: 00 Yes [id number] 1 tablet BEDTIME 1 tablet BEDTIME (route: oral) Med Classific ation: Central Nervous System Agents thiamine HCl (vitamin B1) 100 mg tablet - 00:00: 00 Yes [id number] 1 tablet 2 TIMES DAILY 1 tablet 2 TIMES DAILY (route: oral) Med Classific ation: Electroly te Balance-N utritiona l Products Vraylar 1.5 mg capsule - 00:00: 00 Yes [id number] 1 capsule DAILY 1 capsule DAILY (route: oral) Med Classific ation: Central [...] UTRITIONA L PRODUCTS VITAMIN B-12 ORAL 2017-06 2-10 00:00: 00 06-16 00:00 :00 No 1,000 [...] ANTIPYRET IC CYANOCOBALA MIN (VITAMIN B-12) ORAL 2-08 00:00: 00 08-15 00:00 :00 [...] Med Classific ation: ENDOCRINE VITAMIN B-1 ORAL 2-08 00:00: 00 08-15 00:00 :00 No 100 mg1 TABLET TWICE DAILY 100 mg1 TABLET TWICE DAILY (route: ) Med Classific ation: ELECTROLY TE BALANCE-N UTRITIONA L PRODUCTS VITAMIN B-1 ORAL 2017-06 0-03 00:00: 00 04-09 00:00 :00 No 100 mg1 TABLET TWICE DAILY 100 mg1 TABLET TWICE DAILY (route: ) Med Classific ation: ELECTROLY TE BALANCE-N UTRITIONA L PRODUCTS OLANZAPINE ORAL 7-27 00:00: 00 01-31 00:00 :00 No 10 [...] ESTINAL THERAPY AGENTS QUETIAPINE ORAL 2017-06 00:00: 00 05-12 00:00 :00 No 100 mg1 TABLET 1/2 TABLET AT BEDTIME NEEDED 100 mg1 TABLET 1/2 TABLET AT BEDTIME NEEDED (route: ) Med Classific ation: CENTRAL NERVOUS SYSTEM AGENTS QUETIAPINE ORAL 02-10 00:00: 00 03-12 00:00 :00 No 50 [...] . Med Classific ation: ENDOCRINE LIDOCAINE TOPICAL 07-16 00:00: 00 08-15 00:00 :00 No 5 %1 PATCH LEAVE ON FOR 12 HOURS AND OFF FOR 12 HOURS 5 %1 PATCH LEAVE ON FOR 12 HOURS AND OFF FOR 12 HOURS (route: ) Alternate Route: TO SKIN . Med Classific ation: ANORECTAL PREPARATI ONS DOXEPIN ORAL 2017-06 00:00: 00 07-04 00:00 :00 No 25 mg1 CAPSULE EVERYDAY AT BEDTIME 25 mg1 CAPSULE EVERYDAY AT BEDTIME (route: ) Alternate Route: BY MOUTH . Med Classific ation: CENTRAL NERVOUS SYSTEM AGENTS TEMAZEPAM ORAL -22 00:00: 09-06 00:00 :00 No 15 mg1 CAPSULE AT BEDTIME NEEDED 15 mg1 CAPSULE AT BEDTIME NEEDED (route: ) Alternate Route: BY MOUTH . Med Classific ation: CENTRAL NERVOUS SYSTEM AGENTS ZOLPIDEM ORAL 3-11 00:00: 09-15 00:00 :00 No 10 mg1 TABLET AT BEDTIME 10 mg1 TABLET AT BEDTIME (route: ) Alternate Route: BY MOUTH . Med Classific ation: CENTRAL NERVOUS SYSTEM AGENTS ZOLPIDEM ORAL 2-08 00:00: 08-15 00:00 :00 No FOR SLEEP 5 mg1 TABLET AT BEDTIME NEEDED 5 mg1 TABLET AT BEDTIME NEEDED (route: ) Alternate Route: BY MOUTH . Med Classific ation: CENTRAL NERVOUS SYSTEM AGENTS LORAZEPAM ORAL 208 00:00: 00 08-15 00:00 :00 No 0.5 mg1 TABLET THREE TIMES DAILY 0.5 mg1 TABLET THREE TIMES DAILY (route: ) Alternate Route: BY MOUTH . Med Classific ation: CENTRAL NERVOUS SYSTEM AGENTS LORAZEPAM ORAL 9-17 00:00: 00 03-24 00:00 :00 No 0.5 mg1 TABLET TWICE DAILY 0.5 mg1 TABLET TWICE DAILY (route: ) Med Classific ation: CENTRAL NERVOUS SYSTEM AGENTS LORAZEPAM ORAL 7- 00:00: 00 01-31 00:00 :00 No 0.5 mg1 TABLET TWICE DAILY 0.5 mg1 TABLET TWICE DAILY (route: ) Med Classific ation: CENTRAL NERVOUS SYSTEM AGENTS LORAZEPAM ORAL 2017-06 0-31 00:00: 00 05-07 00:00 :00 No 1 mg1/2 TO 1 TABLET TWICE DAILY 1 mg1/2 TO 1 TABLET TWICE DAILY (route: ) Med Classific ation: CENTRAL NERVOUS SYSTEM AGENTS LORAZEPAM ORAL 8-27 00:00: 00 03-03 00:00 :00 No 1 [...] ation: COGNITIVE DISORDER THERAPY REXULTI ORAL 2017-06 0-31 00:00: 00 05-07 00:00 :00 No 2 mg1 TABLET ONCE DAILY 2 mg1 TABLET ONCE DAILY (route: ) Alternate Route: BY MOUTH . Med Classific ation: CENTRAL NERVOUS SYSTEM AGENTS REXULTI ORAL 2017-06 0-03 00:00: 00 04-09 00:00 :00 No 1 mg1 TABLET EVERY DAY AT 1 mg1 TABLET EVERY DAY AT (route: ) Med Classific ation: CENTRAL NERVOUS SYSTEM AGENTS VRAYLAR ORAL 2-08 00:00: 00 08-15 00:00 :00 No 1.5 mg1 CAPSULE EVERY DAY 1.5 mg1 CAPSULE EVERY DAY (route: ) Med Classific ation: CENTRAL NERVOUS SYSTEM AGENTS Plan of Treatment Planned Activity Planned Date [...] AWARENESS FOR SAFETY AND WILL NOTIFY CLINICAL MANAGER CORE AND PHYSICIAN/PROVIDER WITH ANY CHANGE IN CONDITION. [code = SKILLED NURSE WILL MAINTAIN SITUATIONAL AWARENESS FOR SAFETY AND WILL NOTIFY CLINICAL MANAGER CORE AND PHYSICIAN/PROVIDER WITH ANY CHANGE IN CONDITION.] [...] SERVICES.] Future Scheduled Test SKILLED NU RSE TO O/A OF PATIENTS MENTAL/BEHAVIORAL STATUS, ASSESS VITAL SIGNS EACH VISIT, ALLOW 2 PRNS FOR MEDICATION MANAGEMENT. [code = SKILLED NURSE TO O/A OF PATIENTS MENTAL/BEHAVIORAL STATUS, ASSESS VITAL SIGNS EACH VISIT, ALLOW 2 PRNS FOR MEDICATION MANAGEMENT.] Future Scheduled Test SKILLED NU RSE FOR [...] INTERVENTION.] Future Scheduled Test SKILLED NU RSE TO PRE-POUR MEDICATION PER MEDICATION LIST WEEKLY [code = SKILLED NURSE TO PRE-POUR MEDICATION PER MEDICATION LIST WEEKLY ] Future Scheduled Test SKILLED NU RSE TO REVIEW PATIENT MEDICATIONS. INSTRUCT PATIENT/CAREGIVER ON MONITORING OF EFFECTIVENESS, ADVERSE DRUG REACTIONS, SIDE EFFECTS OF ALL MEDICATIONS (PRESCRIPTION/-OTC), AND HOW AND WHEN TO REPORT PROBLEMS. [code = SKILLED NURSE TO REVIEW PATIENT MEDICATIONS. INSTRUCT PATIENT/CAREGIVER ON MONITORING OF EFFECTIVENESS, ADVERSE DRUG REACTIONS, SIDE EFFECTS OF ALL MEDICATIONS (PRESCRIPTION/-OTC), AND HOW AND WHEN TO REPORT PROBLEMS.] Future Scheduled Test SKILLED NU RSE FOR OBSERVATION AND ASSESSMENT TO IDENTIFY CHANGES ASSOCIATED WITH ( DEMENTIA DX) DEMENTIA AND TEACHING RELATED TO SAFETY MEASURES TO PREVENT INJURY, ELOPEMENT RISKS, BEHAVIOR CHANGES, ACTIVITIES, AND ENVIRONMENTAL CHANGES ALL SECONDARY TO IMPAIRED COGNITIVE STATUS. [code = SKILLED NURSE FOR OBSERVATION AND ASSESSMENT TO IDENTIFY CHANGES ASSOCIATED WITH ( DEMENTIA DX) DEMENTIA AND TEACHING RELATED TO SAFETY MEASURES TO PREVENT INJURY, ELOPEMENT RISKS, BEHAVIOR CHANGES, ACTIVITIES, AND ENVIRONMENTAL CHANGES ALL SECONDARY TO IMPAIRED COGNITIVE STATUS.] Goal 2024-05-17 Patient Goal - NO MORE HOSPI TALIZATION Goal 2024-01-14 Patient Goal - NO MORE HOSPI TALIZATION Goal 2024-03-15 Patient Goal - NO MORE HOSPI TALIZATION Goal 2024-07-14 Patient Goal - NO MORE HOSPI TALIZATION [...] THROUGHOUT CERTIFICATION PERIOD. Goal Provider Goal - ALTERED MENTAL/BEHAVIORAL STATUS WILL BE IDENTIFIED PROMPTLY AND INTERVENTION INITIATED QUICKLY TO MINIMIZE ASSOCIATED RISKS THROUGHOUT CERTIFICATION PERIOD. Goal Provider Goal - PATIENT WILL REMAIN SAFE WITHOUT DECOMPENSATION IN DEPRESSIVE CONDITION, WHILE MAINTAINING OPTIMAL LEVEL OF MENTAL HEALTH AND WELL BEING THROUGHOUT CERTIFICATION PERIOD. Goal Provider Goal - PATIENT WILL COMPLY WITH MEDICATION WHEN SKILLED NURSE PRE-POURS MEDICATION THROUGHOUT CERTIFICATION PERIOD. Goal Provider Goal - PATIENT/CAREGIVER WILL VERBALIZE UNDERSTANDING OF EDUCATION PROVIDED ON MEDICATIONS BY THE END OF THE CERTIFICATION PERIOD. Goal Provider Goal - PATIENT/CAREGIVER WILL VERBALIZE /DEMONSTRATE APPROPRIATE ENVIRONMENTAL/SAFETY MODIFICATIONS IN RESPONSE TO BEHAVIOR/COGNITIVE CHANGES ASSOCIATED WITH DEMENTIA DIAGNOSIS THROUGHOUT THE CERTIFICATION PERIOD. Progress Notes Progress Notes <paragraph>[Visit Date: 2024 by FABIANO MARY RN]:</paragraph><paragraph>PATIENT DOES NOT HAVE VRAYLAR. PHARMACY DOES NOT HAVE A SCRIPT. SN CALLED PSYCHIATRIST OFFICE AND LEFT A VOICEMAIL. PATIENT REPORTED HAS APPOINTMENT WITH PSYCHIATRIST TOMORROW. PATIENT REPORTED IS TO TAKE SEROQUEL 50MG. SN WAITING FOR A CALL BACK FROM PROVIDER TO CONFIRM DOSE INCREASE</paragraph> Encounters Start Date/Time End Date/Time Encounter Type Admission Type Attending [facility] Care Department Encounter ID Discharge Date Discharge Status Discharge Condition Discharge Reason Percent Goals Met 2023-11-20 00:00:00 2024-09-14 00:00:00 Outpatient RECERTIFIC FABIANO HUDSON [facility] [id number] 50.00
--- OUTSIDE RECORDS SUMMARY | 2024-07-20 12:03 | XMS_ITS | Clinical Summary ---
Author Organization Unknown Care Team Providers Care Pilates Coordinator Name Role Phone TAMEKA RODRIGUEZ, VITALY Unavailable Unavailable USMAN DONOHUE, FABIANO Unavailable Unavailable Payers Payer Name Policy Type Policy Number Effective Date Expira tion Date [facility] [place] [id number] MEDICAID [facility] [id number] MEDICARE - [facility] [id number] Problems Condition Name Condition Details Condition Category [...] 10 mg tablet 11-19 00:00: 00 Yes [id number] 10 mg BEDTIME 10 mg BEDTIME (route: oral) Med Classific ation: Cognitive Disorder Therapy folic acid 1 mg tablet 11-19 00:00: 00 Yes [id number] 1 mg DAILY 1 mg BECK Y (route: oral) Med Classific ation: Electroly te Balance-N utritiona l Products lorazepam 0.5 mg tablet 11-19 00:00: 00 06-21 23:59 :00 No [id number] 0.5 mg 2 TIMES DAILY 0.5 mg 2 TIMES DAILY (route: oral) Med Classific ation: Central Nervous System Agents melatonin 5 mg capsule 11-19 00:00: 00 07-17 23:59 :00 No [id number] 5 mg BEDTIME 5 mg BEDTIME (route: oral) Med Classific ation: Central Nervous System Agents memantine 10 mg tablet 11-19 00:00: 00 Yes [id number] 10 mg 2 TIMES DAILY 10 mg 2 TIMES DAILY (route: oral) Med Classific ation: Cognitive Disorder Therapy propranolol 10 mg tablet 11-19 00:00: 00 Yes [id number] 10 mg 3 TIMES DAILY 10 mg 3 TIMES DAILY (route: oral) Med Classific ation: Cardiovas cular Therapy Agents quetiapine 25 mg tablet 09-03 00:00: 00 11-19 00:00 :00 No [id number] 25 mg BEDTIME 25 mg BEDTIME (route: oral) Med Classific ation: Central Nervous System Agents quetiapine 25 mg tablet 09-03 00:00: 00 11-19 00:00 :00 No [id number] 25 mg BEDTIME 25 mg BEDTIME (route: oral) Med Classific ation: Central Nervous System Agents thiamine HCl (vitamin B1) 100 mg tablet 11-19 00:00: 00 07-17 23:59 :00 No [id number] 100 mg DAILY 100 mg DAILY (route: oral) Med Classific ation: Electroly te Balance-N utritiona l Products trazodone 50 mg tablet 11-19 00:00: 00 Yes [id number] 50 mg BEDTIME 50 mg BEDTIME (route: oral) Med Classific ation: Central Nervous System Agents Trintellix 20 mg tablet 11-19 00:00: 00 06-21 23:59 :00 No [id number] 20 mg DAILY 20 mg DAILY (route: oral) Med Classific ation: Central Nervous System Agents mirtazapine 15 mg tablet 10-22 00:00: 00 11-19 00:00 :00 No [id number] 1 tablet BEDTIME 1 tablet BEDTIME (route: oral) Med Classific ation: Central Nervous System Agents Rexulti 0.5 mg tablet 10-22 00:00: 00 11-19 00:00 :00 No [id number] 1 tablet DAILY 1 tablet DAILY (route: oral) Med Classific ation: Central Nervous System Agents ibuprofen 200 mg tablet 11-19 00:00: 00 06-21 23:59 :00 No [id number] 1 tablet EVERY 6 HOURS 1 tablet EVERY 6 HOURS (route: oral) Med Classific ation: Analgesic , Anti-infl ammatory or Antipyret ic mirtazapine 30 mg tablet 11-19 00:00: 00 Yes [id number] 1 tablet BEDTIME 1 tablet BEDTIME (route: oral) Med Classific ation: Central Nervous System Agents quetiapine 50 mg tablet 11-19 00:00: 00 06-21 23:59 :00 No [id number] 1 tablet BEDTIME 1 tablet BEDTIME (route: oral) Med Classific ation: Central Nervous System Agents Rexulti 1 mg tablet 11-19 00:00: 00 05-26 23:59 :00 No [id number] 1 tablet EVERY AM 1 tablet EVERY AM (route: oral) Med Classific ation: Central Nervous System Agents Rexulti 1 mg tablet 11-19 00:00: 00 06-21 23:59 :00 No [id number] 0.5 tablet BEDTIME 0.5 tablet BEDTIME (route: oral) Med Classific ation: Central Nervous System Agents atorvastati n 20 mg tablet 06-21 00:00: 00 Yes [id number] 1 tablet BEDTIME 1 tablet BEDTIME (route: oral) Med Classific ation: Cardiovas cular Therapy Agents lorazepam 1 mg tablet 06-21 00:00: 00 07-15 23:59 :00 No [id number] 1 mg BEDTIME 1 mg BEDTIME (route: oral) Med Classific ation: Central Nervous System Agents quetiapine 200 mg tablet 06-21 00:00: 00 07-17 23:59 :00 No [id number] 200 mg BEDTIME 200 mg BEDTIME (route: oral) Med Classific ation: Central Nervous System Agents Trintellix 20 mg tablet 06-21 00:00: 00 07-17 23:59 :00 No [id number] 1 tablet EVERY AM 1 tablet EVERY AM (route: oral) Med Classific ation: Central Nervous System Agents gabapentin 300 mg capsule 1-14 00:00: 00 Yes [id number] 1 capsule BEDTIME 1 capsule BEDTIME (route: oral) Med Classific ation: Central Nervous System Agents ondansetron HCl 4 mg tablet -14 00:00: 00 07-17 23:59 :00 No [id number] 1 tablet EVERY 8 HOURS 1 tablet EVERY 8 HOURS (route: oral) Med Classific ation: Gastroint estinal Therapy Agents lorazepam 0.5 mg tablet 2- 00:00: 00 Yes [id number] 1 tablet 3 TIMES DAILY 1 tablet 3 TIMES DAILY (route: oral) Med Classific ation: Central Nervous System Agents pramipexole 0.25 mg tablet - 00:00: 00 Yes [id number] 1 tablet 3 TIMES DAILY 1 tablet 3 TIMES DAILY (route: oral) Med Classific ation: Central Nervous System Agents quetiapine 25 mg tablet - 00:00: 00 Yes [id number] 1 tablet BEDTIME 1 tablet BEDTIME (route: oral) Med Classific ation: Central Nervous System Agents thiamine HCl (vitamin B1) 100 mg tablet - 00:00: 00 Yes [id number] 1 tablet 2 TIMES DAILY 1 tablet 2 TIMES DAILY (route: oral) Med Classific ation: Electroly te Balance-N utritiona l Products Vraylar 1.5 mg capsule - 00:00: 00 Yes [id number] 1 capsule DAILY 1 capsule DAILY (route: [...] AWARENESS FOR SAFETY AND WILL NOTIFY CLINICAL PRODUCT SUPPORT ENGINEER AND PHYSICIAN/PROVIDER WITH ANY CHANGE IN CONDITION. [code = SKILLED NURSE WILL MAINTAIN SITUATIONAL AWARENESS FOR SAFETY AND WILL NOTIFY CLINICAL PRODUCT SUPPORT ENGINEER AND PHYSICIAN/PROVIDER WITH ANY CHANGE IN CONDITION.] [...] End Date/Time Encounter Type Admission Type Attending [facility] Care Department Encounter ID Discharge Date Discharge Status Discharge Condition Discharge Reason Percent Goals Met 2023-11-20 00:00:00 2024-09-14 00:00:00 Outpatient RECERTIFIC FABIANO HUDSON [facility] [id number] 50.00
== END 2024-07-20 10:56 | disposition home or self-care (01) ==
LOC: HO.HOP 10:10
PROVIDERS: Visit Provider Psychiatry & Neurology Psychiatry
DX: F33.9 Major depressive disorder, recurrent, unspecified (principal); F41.1 Generalized anxiety disorder; F03.A0 Unspecified dementia, mild, without behavioral disturbance, psychotic disturbance, mood disturbance, and anxiety; G25.71 Drug induced akathisia; G47.00 Insomnia, unspecified
CPT/HCPCS: 99214

== ENCOUNTER 2024-08-10 14:09 | Outpatient (AMB) | payer OTHER, SELFPAY ==
--- NOTE | 2024-08-10 15:01 | MHC.OFFVISPS ---
Intake Intake Visit Reasons: depression Allergies risperidone [From Risperdal] Allergy (Intermediate, Verified 07/04/24 14:15) UNKNOWN Sulfa (Sulfonamide Antibiotics) Allergy (Intermediate, Verified 07/04/24 14:15) rash From BENADRYL Allergy (Intermediate, Uncoded 11/04/23 12:53) DIZZY HPI- Psychiatric Chief Complaint: depression HPI Narrative: Patient seen in psychiatric follow-up. The patient states she has been feeling significantly better improved appetite and sleep. She has been on mirtazapine 30 mg Vraylar 1.5 mg she still has some degree of akathisia she is on dopamine agonist 3 times a day lorazepam 3 times a day Seroquel at bedtime. She states she and her are getting along well. PHQ-9 improved she states that she and her will be going to the [facility] on a regular basis as per previous recommendations Past Psychiatric History: Patient with long history of recurrent depression with multiple prior psychiatric hospitalizations. 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 no classic bipolar symptoms past depressive psychotic episodes not for a number of years Mental Status Exam Mental Status Exam Patient Appearance: Appropriate Patient Orientation: Person, Place and Situation Level of Consciousness: Awake Patient Behavior: Passive Behavior Comments: Some movement of her legs at times back and forth lower extremities patient's smiling stating she is feeling much better alert cooperative Mood Description: Appropriate and Relaxed Affect Description: Calm Patient Cognition Impaired: Yes Ability to Follow Directions: Good Speech Pattern: Clear Memory Description: Episodic Impaired and Working Impaired Hallucinations: None Delusions: Not Present Thought Process: Linear Thought Content: positive for [place] Judgement: Fair Judgement and Insight: No psychosis or SI improving mood restless leg noted to moderate degree Assessment and Plan Assessment & Plan (1) POONAM (generalized anxiety disorder): Status: Acute Code(s): F41.1 - Generalized anxiety disorder (2) Major depressive disorder, recurrent episode: Status: Acute Code(s): F33.9 - Major depressive disorder, recurrent, unspecified Plan Patient seems more stable on a combination Vraylar 1.5 mg mirtazapine 30 mg dopamine agonist lorazepam 0.5 t.i.d. alert cognitively improved Counseling and coordination of Care Pt. Self Management counseling: Behavior activation Medication management counseling: Effectiveness and Side effects Details: I spent [30] minutes reviewing the record, seeing the patient and documenting in the medical record. Counseling provided to the patient/caregiver as outlined below. Addressed patient/caregiver concerns regarding current medication regime including effective adherence. Addressed patient/caregiver concerns regarding diagnosis and prognosis including accuracy of diagnosis, prognosis over time, impact of diagnosis. Addressed patient/caregiver concerns regarding impact of recent stressors. [facility] Medical History Dementia Nocturnal hypoxia Severe recurrent major depression w/psychotic features, mood-congruent Has daytime drowsiness Preoperative examination Elevated glucose Screening for colon cancer Screening for diabetes mellitus Obesity (BMI 30-39.9) Confused but orients easily Depression, major, severe recurrence Abnormal serum protein electrophoresis Mild recurrent major depression Anxiety and depression Encounter for Medicare annual wellness exam Removal of nell Depression with anxiety Abdominal distention Weight gain Major depression, recurrent, full remission POONAM (generalized anxiety disorder) Hypothyroidism Hyperparathyroidism Multinodular thyroid Vitamin D deficiency Osteoporosis Surgical History Hx of colonoscopy Hx of kyphoplasty Hx of section Family History Father Myocardial infarction CVD (cardiovascular disease) Mother Dementia Alzheimer disease Other Mental health disorder Social History Household Members: Spouse Housing: House Do you presently have visiting nurse or other home services: Yes (come once a week to fill medication) Alcohol intake: never Comment: 1:1 sitter at bedside Patient Tobacco Use Status: Never used Tobacco e-Cigarette/Vaping Use: Never Used Second Hand Smoke Exposure: No Advance Directives Date on File: 09/04/23 service: No Current occupational status: unemployed Sexual orientation: Straight/Heterosexual Cognitive needs: No Hearing needs: No Social History: Patient disabled has 1 son. Chronic anxiety has an intermittent difficult relationship with her mostly has not worked Substance History: Denies Trauma History: None noted Coding Level of Care Code Est Pt Level 4 (28891) Diagnoses POONAM (generalized anxiety disorder) F41.1 Major depressive disorder, recurrent episode F33.9
--- OUTSIDE RECORDS SUMMARY | 2024-08-10 17:04 | XMS_ITS | Clinical Summary ---
Author Organization Unknown Care Team Providers Care Oil Field Operator Name Role Phone TAMEKA RODRIGUEZ, VITALY Unavailable Unavailable USMAN DONOHUE, FABIANO Unavailable Unavailable Payers Payer Name Policy Type Policy Number Effective Date Expira tion Date [facility] [place] [id number] MEDICAID [facility] [id number] MEDICARE - [facility] [id number] Problems Condition Name Condition Details Condition Category [...] 10 mg tablet 11-19 00:00: 00 Yes [id number] 10 mg BEDTIME 10 mg BEDTIME (route: oral) Med Classific ation: Cognitive Disorder Therapy folic acid 1 mg tablet 11-19 00:00: 00 Yes [id number] 1 mg DAILY 1 mg BECK Y (route: oral) Med Classific ation: Electroly te Balance-N utritiona l Products lorazepam 0.5 mg tablet 11-19 00:00: 00 06-21 23:59 :00 No [id number] 0.5 mg 2 TIMES DAILY 0.5 mg 2 TIMES DAILY (route: oral) Med Classific ation: Central Nervous System Agents melatonin 5 mg capsule 11-19 00:00: 00 07-17 23:59 :00 No [id number] 5 mg BEDTIME 5 mg BEDTIME (route: oral) Med Classific ation: Central Nervous System Agents memantine 10 mg tablet 11-19 00:00: 00 Yes [id number] 10 mg 2 TIMES DAILY 10 mg 2 TIMES DAILY (route: oral) Med Classific ation: Cognitive Disorder Therapy propranolol 10 mg tablet 11-19 00:00: 00 Yes [id number] 10 mg 3 TIMES DAILY 10 mg 3 TIMES DAILY (route: oral) Med Classific ation: Cardiovas cular Therapy Agents quetiapine 25 mg tablet 09-03 00:00: 00 11-19 00:00 :00 No [id number] 25 mg BEDTIME 25 mg BEDTIME (route: oral) Med Classific ation: Central Nervous System Agents quetiapine 25 mg tablet 09-03 00:00: 00 11-19 00:00 :00 No [id number] 25 mg BEDTIME 25 mg BEDTIME (route: oral) Med Classific ation: Central Nervous System Agents thiamine HCl (vitamin B1) 100 mg tablet 11-19 00:00: 00 07-17 23:59 :00 No [id number] 100 mg DAILY 100 mg DAILY (route: oral) Med Classific ation: Electroly te Balance-N utritiona l Products trazodone 50 mg tablet 11-19 00:00: 00 Yes [id number] 50 mg BEDTIME 50 mg BEDTIME (route: oral) Med Classific ation: Central Nervous System Agents Trintellix 20 mg tablet 11-19 00:00: 00 06-21 23:59 :00 No [id number] 20 mg DAILY 20 mg DAILY (route: oral) Med Classific ation: Central Nervous System Agents mirtazapine 15 mg tablet 10-22 00:00: 00 11-19 00:00 :00 No [id number] 1 tablet BEDTIME 1 tablet BEDTIME (route: oral) Med Classific ation: Central Nervous System Agents Rexulti 0.5 mg tablet 10-22 00:00: 00 11-19 00:00 :00 No [id number] 1 tablet DAILY 1 tablet DAILY (route: oral) Med Classific ation: Central Nervous System Agents ibuprofen 200 mg tablet 11-19 00:00: 00 06-21 23:59 :00 No [id number] 1 tablet EVERY 6 HOURS 1 tablet EVERY 6 HOURS (route: oral) Med Classific ation: Analgesic , Anti-infl ammatory or Antipyret ic mirtazapine 30 mg tablet 11-19 00:00: 00 Yes [id number] 1 tablet BEDTIME 1 tablet BEDTIME (route: oral) Med Classific ation: Central Nervous System Agents quetiapine 50 mg tablet 11-19 00:00: 00 06-21 23:59 :00 No [id number] 1 tablet BEDTIME 1 tablet BEDTIME (route: oral) Med Classific ation: Central Nervous System Agents Rexulti 1 mg tablet 11-19 00:00: 00 05-26 23:59 :00 No [id number] 1 tablet EVERY AM 1 tablet EVERY AM (route: oral) Med Classific ation: Central Nervous System Agents Rexulti 1 mg tablet 11-19 00:00: 00 06-21 23:59 :00 No [id number] 0.5 tablet BEDTIME 0.5 tablet BEDTIME (route: oral) Med Classific ation: Central Nervous System Agents atorvastati n 20 mg tablet 06-21 00:00: 00 Yes [id number] 1 tablet BEDTIME 1 tablet BEDTIME (route: oral) Med Classific ation: Cardiovas cular Therapy Agents lorazepam 1 mg tablet 06-21 00:00: 00 07-15 23:59 :00 No [id number] 1 mg BEDTIME 1 mg BEDTIME (route: oral) Med Classific ation: Central Nervous System Agents quetiapine 200 mg tablet 06-21 00:00: 00 07-17 23:59 :00 No [id number] 200 mg BEDTIME 200 mg BEDTIME (route: oral) Med Classific ation: Central Nervous System Agents Trintellix 20 mg tablet 06-21 00:00: 00 07-17 23:59 :00 No [id number] 1 tablet EVERY AM 1 tablet EVERY AM (route: oral) Med Classific ation: Central Nervous System Agents gabapentin 300 mg capsule 1-14 00:00: 00 Yes [id number] 1 capsule BEDTIME 1 capsule BEDTIME (route: oral) Med Classific ation: Central Nervous System Agents ondansetron HCl 4 mg tablet 1-14 00:00: 00 07-17 23:59 :00 No [id number] 1 tablet EVERY 8 HOURS 1 tablet EVERY 8 HOURS (route: oral) Med Classific ation: Gastroint estinal Therapy Agents lorazepam 0.5 mg tablet 2-09 00:00: 00 Yes [id number] 1 tablet 3 TIMES DAILY 1 tablet 3 TIMES DAILY (route: oral) Med Classific ation: Central Nervous System Agents pramipexole 0.25 mg tablet - 00:00: 00 Yes [id number] 1 tablet 3 TIMES DAILY 1 tablet 3 TIMES DAILY (route: oral) Med Classific ation: Central Nervous System Agents quetiapine 25 mg tablet 09 00:00: 00 07-26 23:59 :00 No [id number] 1 tablet BEDTIME 1 tablet BEDTIME (route: oral) Med Classific ation: Central Nervous System Agents thiamine HCl (vitamin B1) 100 mg tablet - 00:00: 00 Yes [id number] 1 tablet 2 TIMES DAILY 1 tablet 2 TIMES DAILY (route: oral) Med Classific ation: Electroly te Balance-N utritiona l Products Vraylar 1.5 mg capsule - 00:00: 00 Yes [id number] 1 capsule DAILY 1 capsule DAILY (route: oral) Med Classific ation: Central Nervous System Agents quetiapine 100 mg tablet 18 00:00: 00 Yes [id number] 1 tablet BEDTIME 1 tablet BEDTIME (route: oral) Med Classific ation: Central Nervous System Agents MELATONIN ORAL 01-01 00:00: 00 01-31 00:00 :00 No 5 mg2 TABLETS AT BEDTIME 5 mg2 TABLETS AT BEDTIME (route: ) Med Classific ation: ALTERNATI VE THERAPY VITAMIN B-12 ORAL 2018-0 6-20 00:00: 00 12-25 00:00 :00 No 500 [...] BALANCE-N UTRITIONA L PRODUCTS VITAMIN B-12 ORAL 905 00:00: 00 03-12 00:00 :00 No 1,000 [...] CYANOCOBALA MIN (VITAMIN B-12) ORAL 07-16 00:00: 00 08-15 00:00 :00 No 1,000 mcg1 TABLET EVERY DAY 1,000 mcg1 TABLET EVERY DAY (route: ) Med Classific ation: ELECTROLY TE BALANCE-N UTRITIONA L PRODUCTS ALENDRONATE ORAL 07-16 00:00: 00 08-13 00:00 :00 No 70 [...] UTRITIONA L PRODUCTS VITAMIN B-1 ORAL 2017-06 0- 00:00: 00 04-09 00:00 :00 No 100 [...] ation: CENTRAL NERVOUS SYSTEM AGENTS TEMAZEPAM ORAL 0 3-22 00:00: 09-06 00:00 :00 No 15 mg1 [...] CENTRAL NERVOUS SYSTEM AGENTS LORAZEPAM ORAL 0 7- 00:00: 00 01-31 00:00 :00 No 0.5 mg1 TABLET TWICE DAILY 0.5 mg1 TABLET TWICE DAILY (route: ) Med Classific ation: CENTRAL NERVOUS SYSTEM AGENTS LORAZEPAM ORAL 2017-06 0-31 00:00: 00 05-07 00:00 :00 No 1 mg1/2 TO 1 TABLET TWICE DAILY 1 mg1/2 TO 1 TABLET TWICE DAILY (route: ) Med Classific ation: CENTRAL NERVOUS SYSTEM AGENTS LORAZEPAM ORAL 0 8-27 00:00: 00 03-03 00:00 :00 No [...] NERVOUS SYSTEM AGENTS BUPROPION HCL ORAL 2017-06 0 00:00: 00 05-07 00:00 :00 No 100 mg2 TABLETS 8AM AND 1 TABLET EVERY DAY AT AT 100 mg2 TABLETS 8AM AND 1 TABLET EVERY DAY AT AT (route: ) Alternate Route: BY MOUTH . Med Classific ation: CENTRAL NERVOUS SYSTEM AGENTS BUPROPION HCL ORAL 918 00:00: 00 03-10 00:00 :00 No 100 [...] ation: CENTRAL NERVOUS SYSTEM AGENTS DONEPEZIL ORAL -08 00:00: 00 08-15 00:00 :00 No 5 mg1 TABLET AT BEDTIME 5 mg1 TABLET AT BEDTIME (route: ) Med Classific ation: COGNITIVE DISORDER THERAPY DONEPEZIL ORAL 2017-06- 00:00: 00 06-16 00:00 :00 No 5 [...] Observation Time Observation Value Commen ts Temperature 2024-08-09 16:08:00.000 97.8 [degF] Temperature 2024-08-02 15:41:00.000 97.4 [degF] Temperature 2024-07-26 16:18:00.000 97.7 [degF] Pulse 2024-08-09 16:08:00.000 94 /min Pulse 2024-08-02 15:41:00.000 86 /min Pulse 2024-07-26 16:18:00.000 98 /min Respirations 2024-08-09 16:08:00.000 18 /min Respirations 2024-08-02 15:41:00.000 18 /min Respirations 2024-07-26 16:18:00.000 18 /min Systolic Blood Pressure 2024-08-09 16:08:00.000 130 mm [Hg] Systolic Blood Pressure 2024-08-02 15:41:00.000 119 mm [Hg] Systolic Blood Pressure 2024-07-26 16:18:00.000 119 mm [Hg] Diastolic Blood Pressure 2024-08-09 16:08:00.000 90 mm [Hg] Diastolic Blood Pressure 2024-08-02 15:41:00.000 76 mm [Hg] Diastolic Blood Pressure 2024-07-26 16:18:00.000 87 mm [Hg] Plan of Treatment Planned Activity [...] AWARENESS FOR SAFETY AND WILL NOTIFY CLINICAL FIELD ACCOUNT MANAGER AND PHYSICIAN/PROVIDER WITH ANY CHANGE IN CONDITION. [code = SKILLED NURSE WILL MAINTAIN SITUATIONAL AWARENESS FOR SAFETY AND WILL NOTIFY CLINICAL FIELD ACCOUNT MANAGER AND PHYSICIAN/PROVIDER WITH ANY CHANGE IN CONDITION.] [...] <paragraph>[Visit Date: 2024 by FABIANO MARY RN]:</paragraph><paragraph>PATIENT FORGET ALL OF HER AFTERNOON MEDS FOR THE WEEK AND DID NOT TAKE ANY. SN EDUCATED PATIENT AND CG TO SET REMINDER ON HER PHONE. SN CALLED [facility] FOR REFILLS ON PRAMIPRAXOLE AND MIRTAZIPINE AND [facility] FOR REFILLS ON LORAZEPAM WHICH WILL KILN REPAIRER TOMORROW. PATIENT HAS APPOINTMENT WITH DR ENGLISH TOMORROW</paragraph> Encounters Start Date/Time End Date/Time Encounter Type Admission Type Attending [facility] Care Facility Care Department Encounter ID Discharge Date Discharge Status Discharge Condition Discharge Reason Percent Goals Met 2023-11-20 00:00:00 2024-09-14 00:00:00 Outpatient RECERTIFIC ATFABIANO [facility] [id number] 71.43
--- OUTSIDE RECORDS SUMMARY | 2024-08-10 17:04 | XMS_ITS | Clinical Summary ---
Author Organization Unknown Care Team Providers Care Research Center Director Name Role Phone TAMEKA RODRIGUEZ, VITALY Unavailable Unavailable USMAN DONOHUE, FABIANO Unavailable Unavailable Payers Payer Name Policy Type Policy Number Effective Date Expira tion Date [facility] [place] [id number] MEDICAID [facility] [id number] MEDICARE - [facility] [id number] Problems Condition Name Condition Details Condition Category [...] 10 mg tablet 11-19 00:00: 00 Yes [id number] 10 mg BEDTIME 10 mg BEDTIME (route: oral) Med Classific ation: Cognitive Disorder Therapy folic acid 1 mg tablet 11-19 00:00: 00 Yes [id number] 1 mg DAILY 1 mg BECK Y (route: oral) Med Classific ation: Electroly te Balance-N utritiona l Products lorazepam 0.5 mg tablet 11-19 00:00: 00 06-21 23:59 :00 No [id number] 0.5 mg 2 TIMES DAILY 0.5 mg 2 TIMES DAILY (route: oral) Med Classific ation: Central Nervous System Agents melatonin 5 mg capsule 11-19 00:00: 00 07-17 23:59 :00 No [id number] 5 mg BEDTIME 5 mg BEDTIME (route: oral) Med Classific ation: Central Nervous System Agents memantine 10 mg tablet 11-19 00:00: 00 Yes [id number] 10 mg 2 TIMES DAILY 10 mg 2 TIMES DAILY (route: oral) Med Classific ation: Cognitive Disorder Therapy propranolol 10 mg tablet 11-19 00:00: 00 Yes [id number] 10 mg 3 TIMES DAILY 10 mg 3 TIMES DAILY (route: oral) Med Classific ation: Cardiovas cular Therapy Agents quetiapine 25 mg tablet 09-03 00:00: 00 11-19 00:00 :00 No [id number] 25 mg BEDTIME 25 mg BEDTIME (route: oral) Med Classific ation: Central Nervous System Agents quetiapine 25 mg tablet 09-03 00:00: 00 11-19 00:00 :00 No [id number] 25 mg BEDTIME 25 mg BEDTIME (route: oral) Med Classific ation: Central Nervous System Agents thiamine HCl (vitamin B1) 100 mg tablet 11-19 00:00: 00 07-17 23:59 :00 No [id number] 100 mg DAILY 100 mg DAILY (route: oral) Med Classific ation: Electroly te Balance-N utritiona l Products trazodone 50 mg tablet 11-19 00:00: 00 Yes [id number] 50 mg BEDTIME 50 mg BEDTIME (route: oral) Med Classific ation: Central Nervous System Agents Trintellix 20 mg tablet 11-19 00:00: 00 06-21 23:59 :00 No [id number] 20 mg DAILY 20 mg DAILY (route: oral) Med Classific ation: Central Nervous System Agents mirtazapine 15 mg tablet 10-22 00:00: 00 11-19 00:00 :00 No [id number] 1 tablet BEDTIME 1 tablet BEDTIME (route: oral) Med Classific ation: Central Nervous System Agents Rexulti 0.5 mg tablet 10-22 00:00: 00 11-19 00:00 :00 No [id number] 1 tablet DAILY 1 tablet DAILY (route: oral) Med Classific ation: Central Nervous System Agents ibuprofen 200 mg tablet 11-19 00:00: 00 06-21 23:59 :00 No [id number] 1 tablet EVERY 6 HOURS 1 tablet EVERY 6 HOURS (route: oral) Med Classific ation: Analgesic , Anti-infl ammatory or Antipyret ic mirtazapine 30 mg tablet 11-19 00:00: 00 Yes [id number] 1 tablet BEDTIME 1 tablet BEDTIME (route: oral) Med Classific ation: Central Nervous System Agents quetiapine 50 mg tablet 11-19 00:00: 00 06-21 23:59 :00 No [id number] 1 tablet BEDTIME 1 tablet BEDTIME (route: oral) Med Classific ation: Central Nervous System Agents Rexulti 1 mg tablet 11-19 00:00: 00 05-26 23:59 :00 No [id number] 1 tablet EVERY AM 1 tablet EVERY AM (route: oral) Med Classific ation: Central Nervous System Agents Rexulti 1 mg tablet 11-19 00:00: 00 06-21 23:59 :00 No [id number] 0.5 tablet BEDTIME 0.5 tablet BEDTIME (route: oral) Med Classific ation: Central Nervous System Agents atorvastati n 20 mg tablet 06-21 00:00: 00 Yes [id number] 1 tablet BEDTIME 1 tablet BEDTIME (route: oral) Med Classific ation: Cardiovas cular Therapy Agents lorazepam 1 mg tablet 06-21 00:00: 00 07-15 23:59 :00 No [id number] 1 mg BEDTIME 1 mg BEDTIME (route: oral) Med Classific ation: Central Nervous System Agents quetiapine 200 mg tablet 06-21 00:00: 00 07-17 23:59 :00 No [id number] 200 mg BEDTIME 200 mg BEDTIME (route: oral) Med Classific ation: Central Nervous System Agents Trintellix 20 mg tablet 06-21 00:00: 00 07-17 23:59 :00 No [id number] 1 tablet EVERY AM 1 tablet EVERY AM (route: oral) Med Classific ation: Central Nervous System Agents gabapentin 300 mg capsule 1-14 00:00: 00 Yes [id number] 1 capsule BEDTIME 1 capsule BEDTIME (route: oral) Med Classific ation: Central Nervous System Agents ondansetron HCl 4 mg tablet 1-14 00:00: 00 07-17 23:59 :00 No [id number] 1 tablet EVERY 8 HOURS 1 tablet EVERY 8 HOURS (route: oral) Med Classific ation: Gastroint estinal Therapy Agents lorazepam 0.5 mg tablet 2-09 00:00: 00 Yes [id number] 1 tablet 3 TIMES DAILY 1 tablet 3 TIMES DAILY (route: oral) Med Classific ation: Central Nervous System Agents pramipexole 0.25 mg tablet - 00:00: 00 Yes [id number] 1 tablet 3 TIMES DAILY 1 tablet 3 TIMES DAILY (route: oral) Med Classific ation: Central Nervous System Agents quetiapine 25 mg tablet 09 00:00: 00 07-26 23:59 :00 No [id number] 1 tablet BEDTIME 1 tablet BEDTIME (route: oral) Med Classific ation: Central Nervous System Agents thiamine HCl (vitamin B1) 100 mg tablet - 00:00: 00 Yes [id number] 1 tablet 2 TIMES DAILY 1 tablet 2 TIMES DAILY (route: oral) Med Classific ation: Electroly te Balance-N utritiona l Products Vraylar 1.5 mg capsule - 00:00: 00 Yes [id number] 1 capsule DAILY 1 capsule DAILY (route: oral) Med Classific ation: Central Nervous System Agents quetiapine 100 mg tablet 18 00:00: 00 Yes [id number] 1 tablet BEDTIME 1 tablet BEDTIME (route: [...] AWARENESS FOR SAFETY AND WILL NOTIFY CLINICAL WET SUIT GLUER AND PHYSICIAN/PROVIDER WITH ANY CHANGE IN CONDITION. [code = SKILLED NURSE WILL MAINTAIN SITUATIONAL AWARENESS FOR SAFETY AND WILL NOTIFY CLINICAL WET SUIT GLUER AND PHYSICIAN/PROVIDER WITH ANY CHANGE IN CONDITION.] [...] CARE WILL BE ESTABLISHED THAT MEETS PATIENT'S FPC NEEDS AND INCLUDES PATIENT GOAL FOR HOME [...] SET REMINDER ON HER PHONE. SN CALLED [facility] FOR REFILLS ON PRAMIPRAXOLE AND MIRTAZIPINE AND [facility] FOR REFILLS ON LORAZEPAM WHICH WILL MANAGING PARTNER TOMORROW. PATIENT HAS APPOINTMENT WITH DR ENGLISH TOMORROW</paragraph> Encounters Start Date/Time End Date/Time Encounter Type Admission Type Attending [facility] Care Facility Care Department Encounter ID Discharge Date Discharge Status Discharge Condition Discharge Reason Percent Goals Met 2023-11-20 00:00:00 2024-09-14 00:00:00 Outpatient RECERTIFIC ATFABIANO [facility] [id number] 71.43
--- OUTSIDE RECORDS SUMMARY | 2024-08-10 17:04 | XMS_ITS | Continuity of Care Document ---
Author Organization [facility] [employer] [facility] Address [address] [address] Phone Care Team Providers Care Cutter Operator Name Role Phone Ananda JUNIOR BUYER, Liss Unavailable Unavailab le Allergies, Adverse Reactions, [...] Dr. Willett (psychiatry). Last filled 01/18/24 per [employer], for quantity 60 (30 day supply if used BID). Vraylar 1.5 mg capsule Script per psychiatry: Take one capsule by mouth once daily. - Active 07/04/24: Script per psychiatry Dr. Willett at discharge from [facility]. pramipexole 0.25 mg tablet Script per psychiatry: Take 1 tablet by mouth 3 times daily. - Active 07/04/24: Script per psychiatry sent at discharge from [facility]. Calcium 500 + D 500 mg-5 [...] Per pre-enrollment, script per Dr. Willett (psychiatry). Advance Directives Directive Yes / No Effective Date File Name No Information Encounters Encounter Description Practice Location Reason(s) For Visit Diagnoses Date Provider [facility], [address], [id number], tel:[phone] [place] No Information Aug-0 5 [address] Liss. [address] [place], [place], [id number], [place]. tel:[phone] [facility], [address] [address], [place], [place], [id number], tel:[phone] [place] Semi-Annual (chief complaint) No Information Aug-0 5 Pitsiladis Ilss. [address] [place], [place], [id number], [place]. tel:[phone] [facility], [address] [place] [address], [id number], tel:[phone] [place] No Information 5 P[address] Liss. [address] [place], [place], [id number], [place]. tel:[phone] [facility], [address] [address], [place], [place], [id number], tel:[phone] [place] No Information 5 [address] Liss[address] [place], [place], [id number], [place]. tel:[phone] [facility], [address], [id number], [place] tel:[phone] [place] [facility] Evaluation (chief complaint) History of UTIMixed hyperlipidemiaHypothyro idism, unspecified typeOsteoporosis without current pathological fracture, unspecified osteoporosis typeHyperparathyroidism Viral gastroenteritisStage 3a chronic kidney diseaseMild dementia with other behavioral disturbance, unspecified dementia typeRecurrent major depressive disorder, in full remissionGAD (generalized anxiety disorder) 5 P[address] Liss. [address] [place], [place], [id number], [place]. tel:[phone] [facility], 1 [facility], [place], [place], [id number], [place] tel:[phone] [place] Recurrent major depressive disorder, in partial remissionGAD (generalized anxiety disorder) 4 [address] Liss. [address] [place], [place], [id number], [place]. tel:[phone] [facility], 1 [facility], [place], [place], [id number], [place] tel:[phone] [place] Acute Visit (chief complaint) Genitourinary syndrome of menopause 4 [address] Liss. [address] [place], [place], [id number], [place]. tel:[phone] [facility], [address] [address], [place], [place], [id number], [place] tel:[phone] [place] No Information 4 [address] Liss[address] [place], [place], [id number], [place]. tel:[phone] [facility], 1 [facility], [place], [place], [id number], [place] tel:[phone] [place] Follow-up (chief complaint) Shortness of breathRecurrent major depressive disorder, in partial remissionGAD (generalized anxiety disorder)Insomnia, unspecified type 4 [address] Liss[address] [place], [place], [id number], [place]. tel:[phone] [facility], 1 [facility], [place], [place], [id number], [place] tel:[phone] [place] Follow-up (chief complaint) Mixed hyperlipidemiaOsteoporo sis without current pathological fracture, unspecified osteoporosis typeAdvanced directives, counseling/discussion 4 [address] Liss[address] [place], [place], [id number], [place]. tel:[phone] [facility], [address] [facility] [address], [place], [place], [id number], [place] tel:[phone] [place] Other specified personal risk factors, not elsewhere classifiedUnspecified visual disturbance Sep-1 4 [address] Liss[address] [facility] [place], [id number], [place]. tel:[phone] [facility], [address] [facility], [place], [place], [id number], [place] tel:[phone] [phone] [phone] No Information Sep-1 4 P[address] Liss. [address] [facility] [place], [id number], [place]. tel:[phone] [facility], [address] [facility] [address], [place], [place], [id number], [place] tel:[phone] [place] No Information Sep-1 4 Pitsiladis Liss. [address], [place], [place], [id number], [place]. tel:[phone] [facility], [address] [facility] [address], [place], [place], [id number], [place] tel:[phone] [place] Major depressive disorder, recurrent, in partial remission Sep-1 4 [address]. [address] [place], [place], [id number], [place]. tel:[phone] [facility], 1 [facility] [address] [facility], [place], [place], [id number], [place] tel:[phone] [place] Encounter for rehabilitation evaluation Sep-0 4 Javier Romano. [address] [facility] [place], [place], [id number], [place]. tel:[phone] [facility], 1 [facility] [address], [place], [place], [id number], [place] tel:[phone] [place] Encounter for rehabilitation evaluation Sep-0 4 Gerardo Steve. [address], [place], [address]. tel:[phone] [facility], [address], [id number], tel:[phone] [place] Encounter for nutritional assessmentClass 1 obesity with serious comorbidity and body mass index (BMI) of 32.0 to 32.9 in adult, unspecified obesity typeBody mass index [BMI] 32.0-32.9, adult Sep-0 4 Normile Keena. [address] [place], [place], [id number], [place]. tel:[phone] [facility], [address], [id number], tel:[phone] [place] Post Enrollment Evaluation (chief complaint) History of mammogramStage 3a chronic kidney diseasePrediabetesRecur rent major depressive disorder, in partial remissionHypothyroidism , unspecified typeVitamin D deficiencyHyperparathyr oidismHistory of UTIGAD (generalized anxiety disorder)Mixed hyperlipidemiaObesity, Class I, BMI 30.0-34.9 (see actual BMI)BMI 32.0-32.9,adultLumbar spondylosisMild dementia with other behavioral disturbance, unspecified dementia typeOsteoporosis without current pathological fracture, unspecified osteoporosis type Sep-0 4 [address] Liss[address] [place], [place], [id number], [place]. tel:[phone] [facility], [address] [address], [place], [place], [id number], [place] tel:[phone] [place] No Information Sep-0 4 Normile Keena. [address] [place], [place], [id number], [place]. tel:[phone] Family History Family Member Type Diagnosis Age At Onset No Information Immunizations Vaccine Date Status Comments Zoster recombinant subunit administered S ource: New Immunization Record Zoster recombinant subunit administered S ource: New [...] name Insurance type Covered republican ID Tremaine stokes(s) Helveta 16 [id number] Helv[employer] 16 [id number] Helv[employer] 16 [id number] Helv[employer] 16 [id number] Social History Type Description Quantity Date Captured Comments Sex Female Smoking Status No Information Chief Complaint And Reason For Visit No Information Plan Of Treatment Date Type Action Status Referral Ordered: Dentistry (related to Need for dental care) ordered Referral Ordered: Psychiatric Aide Instructor (related to Visual changes) ordered Referral Ordered: Referrals: Dentistry. Evaluate and treat ordered Referral Ordered: Referrals: Psychiatric Aide Instructor. Evaluate and treat ordered Referral Referred To: Dr. Willett Ordered: Referrals: Psychiatry. Dr. Willett Appointment date/timeframe: 02/16/2024 ordered Future Order: Lab Order Urinalys is, Macroscopic ([id number]), Ordered on: Ordered History Of Present Illness Encounter Date Complaint History Of Prese nt Illness Semi-Annual Post Hospital Evaluation Judy loco s a 73 year old female who is seen today for a post-hospital evaluation. She is accompanied by her .In review of recent events, Jduy was seen at [facility] on 06/18/24 with vomiting and LLQ [...] pain.-Drink lots of water. -Call us at [phone] if you feel you are getting worse [...] today.History of ER visits/Falls/SNF/Hospitalizations:-05/25/23 -06/14/23: Inpatient at [facility]. No other hospitalizations, ER visits since then. -Before COVID, was on 5th floor x 1.5 years at [place] on their psychiatric unit. Then was for a few months on 1st floor in a unit x few months for psychiatric concerns. Specialists:-Dr. Fausto Willett at [facility]. Seeing him tomorrow. He is a [...] Social: Judy lives in the community in [place] with her , just the 2 of them. They have always lived in the area. They have family in [place] and [place]. Herve has a son and daughter from [...] they think possibly 1 year ago at [facility]. Bone density: Unclear when her last DEXA was. Not seen in pre-enrollment records from [place]. Osteoporosis listed in her problem list with [...] as needed. She is seeing him tomorrow. Instructions Date Instruction Additional Infor steven -Per pre-enrollment (01/31/22 page 24) described as generalized anxiety disorder. She has a complicated psychiatric history and follows closely with her psychiatrist Dr. Willett. Per pre-enrollment, has been treated in the past with ECT, Trintellix, Doxepin, Caplyta. Admitted in early 2023 to [facility] with ???anxiety, racing thoughts, insomnia???. Underwent ECT [...] Doxepin, Caplyta. Admitted in early 2023 to [place] with ???anxiety, racing thoughts, insomnia???. Underwent ECT [...] Viral gastroenteritis -Per pre-enrollment (01/31/22 page 24), on problem [...] osteoporosis type -Per pre-enrollment (01/31/22 page 24), noted in problem list. -She has co-existing CKD3A on labs today. PTH 02/15/24 at 60, Ca 9.5. -Continue routine labs. Consider [facility] consult as needed for treatment recommendations. Related to Hyperparathyroidism -Per pre-enrollment (01/31/22 page 24), history of [...] 3-6 months. Related to Mixed hyperlipidemia -At [facility] appt, jinny t and spouse report [...] Doxepin, [place]. Admitted in early 2023 to [place] with ???anxiety, racing thoughts, insomnia???. Underwent ECT [...] Doxepin, [place]. Admitted in early 2023 to [place] with ???anxiety, racing thoughts, insomnia???. Underwent ECT [...] is possible however the history in the [facility] records suggests possible FARNAZ. Will explore [...] Doxepin, [place]. Admitted in early 2023 to [place] with ???anxiety, racing thoughts, insomnia???. Underwent ECT [...] Doxepin, [place]. Admitted in early 2023 to [place] with ???anxiety, racing thoughts, insomnia???. Underwent ECT [...] medications, hypothyroidism. -Routine screening labs. Periodic weights. Music Worker to see her for screening and counseling if indicated. Related to BMI 32.0-32.9,adult -Per pre-enrollment (01/31/22 pg 30).-BMI 32.2 today. -Routine screening labs. Periodic weights. Music Worker to see her for screening and counseling [...] Doxepin, Cap[place]ta. Admitted in early 2023 to [place] with ???anxiety, racing thoughts, insomnia???. Underwent ECT [...] Related to POONAM (generalized anxiety disorder) -At [facility] appt, jinny t and spouse report [...] She did have parathyroid imaging in 03/2019 ([facility]) with results stating There is homogeneous [...] Doxepin, Cap[place]ta. Admitted in early 2023 to [place] with ???anxiety, racing thoughts, insomnia???. Underwent ECT [...] from breakdown for 6 months. Patient Goal Continued
== END 2024-08-10 16:17 | disposition home or self-care (01) ==
LOC: HO.HOP 14:09
PROVIDERS: Visit Provider Psychiatry & Neurology Psychiatry
DX: F41.1 Generalized anxiety disorder (principal); F33.9 Major depressive disorder, recurrent, unspecified
CPT/HCPCS: 99214

== ENCOUNTER 2024-09-20 13:43 | Outpatient (AMB) | payer OTHER, SELFPAY ==
--- OUTSIDE RECORDS SUMMARY | 2024-09-20 16:51 | XMS_ITS | Continuity of Care Document ---
Author Organization [facility] Address [address] [address] Phone Care Team Providers Care Wall Steamer Name Role Phone Gerardo PT, Steve Unavailable Unavailable Allergies, Adverse Reactions, Alerts Substance Reaction Status Criticality risperidone Active No Information Sulfa (Sulfonamide Antibiotics) Rash Active No Information DIPHENHYDRAMINE HCL Dizziness Active Unable t o Assess Medications Medication Instructions Dosage Effective Dates (start - stop) Status Comments acetaminophen 325 mg tablet Take 2 tablets by mouth every 6 hours NEEDED for pain/body aches. - Active atorvastatin 20 mg tablet Take 1 tablet by mouth once daily at night. - Active Calcium 500 + D 500 mg-5 mcg (200 unit) tablet Take 1 tablet by mouth twice daily. - Active donepezil 10 mg tablet Take 1 tablet by mouth once daily at bedtime. - Active Per pre-enrollment, script per Dr. Willett (psychiatry). folic acid 1 mg tablet Take 1 tablet by mouth once daily. - Active Per pre-enrollment. lidocaine 4 % topical patch Apply 1 patch topically NEEDED, leave on for 12 hours and off for 12 hours. - Active loperamide 2 mg tablet Take 2 tablets by mouth after 1st episode of diarrhea and 1 tablet (2 mg) after each next episode of diarrhea; do not exceed more than 8 tablets in 24 hours. - Active melatonin 5 mg tablet Take 1 tablet by mouth once daily at bedtime. - Active Per pre-enrollment, Dr. Willett (psychiatry). lorazepam 0.5 mg tablet Take 1 tablet by mouth 3 times daily as needed for anxiety. - Active Per pre-enrollment, script per Dr. Willett (psychiatry). 08/12/24: Adjusted from BID to TID PRN by Dr. Willett. gabapentin 300 mg capsule Script per Dr. Willett (psych): Take 1 capsule by mouth once daily at bedtime. - Active 08/12/24: Per Dr. Willett, added gabapentin. Script sent by him. Vraylar 1.5 mg capsule Script per psychiatry: Take one capsule by mouth once daily. - Active 07/04/24: Scrip t per psychiatry Dr. Willett at discharge from [facility]. pramipexole 0.25 mg tablet Script per psychiatry: Take 1 tablet by mouth 3 times daily. - Active 07/04/24: Script per psychiatry sent at discharge from [facility]. trazodone 50 mg tablet Take 1 tablet by mouth once daily at bedtime for sleep. - Active Per pre-enrollment, script per Dr. Willett (psychiatry). memantine 10 mg tablet [...] Location Reason(s) For Visit Diagnoses Date Provider Critical access hospital, [address] [place] [address], [place], [place], [id number], [place] tel:[phone] [place] [address] No Information Aug-2 5 Gerardo Steve. [address] [facility] [place], [address]. tel:[phone] Critical access hospital, 1 [facility], [address] [place] [address], [id number], [place] tel:[phone] [place] No Information Aug-1 5 Pitsiladis Liss. [address] [facility] [place], [id number], [place]. tel:[phone] Critical access hospital, 1 [facility], [facility], [place], [place], [id number], [place] tel:[phone] [place] [address] No Information 5 Pitsiladis Liss. [address], [place], [place], [id number], [place]. tel:[phone] Critical access hospital, [address] [place] [address], [place], [place], [id number], [place] tel:[phone] [place] Encounter for nutritional assessment Aug-0 5 Normile Keena. [address] [facility] [place], [id number], [place]. tel:[phone] Critical access hospital, [address] [address], [place], [place], [id number], [place] tel:[phone] [place] Semi-Annual (chief complaint) Pulmonary noduleMixed hyperlipidemiaPrediabet esHypothyroidism, unspecified typeStage 3a chronic kidney diseaseMild dementia with other behavioral disturbance, unspecified dementia typeOsteoporosis, unspecified osteoporosis type, unspecified pathological fracture presenceOther specified personal risk factors, not elsewhere classifiedRecurrent major depressive disorder, in partial remissionGAD (generalized anxiety disorder)Hyperparathyro idismVitamin D deficiency Aug-0 5 Pitsiladis Liss. [address], [place], [place], [id number], [place]. tel:[phone] Critical access hospital, [address], [id number], [place] tel:[phone] [place] No Information 5 Pitsiladis Liss. [address] [place], [place], [id number], [place]. tel:[phone] Critical access hospital, [address] [address], [place], [place], [id number], [place] tel:[phone] [place] [facility] Evaluation (chief complaint) History of UTIMixed hyperlipidemiaHypothyro idism, unspecified typeOsteoporosis without current pathological fracture, unspecified osteoporosis typeHyperparathyroidism Viral gastroenteritisStage 3a chronic kidney diseaseMild dementia with other behavioral disturbance, unspecified dementia typeRecurrent major depressive disorder, in full remissionGAD (generalized anxiety disorder) 5 Pitsiladis Liss. [address] [place], [place], [id number], [place]. tel:[phone] Critical access hospital, [address] [address], [place], [place], [id number], [place] tel:[phone] [place] Recurrent major depressive disorder, in partial remissionGAD (generalized anxiety disorder) 4 Pitsiladis Liss. [address] [place], [id number], [place]. tel:[phone] Critical access hospital, [address] [address], [place], [place], [id number], [place] tel:[phone] [place] Acute Visit (chief complaint) Genitourinary syndrome of menopause 4 Pitsiladis Liss. [address] [place], [place], [id number], [place]. tel:[phone] Critical access hospital, [address] [address], [place], [place], [id number], [place] tel:[phone] [place] Follow-up (chief complaint) Shortness of breathRecurrent major depressive disorder, in partial remissionGAD (generalized anxiety disorder)Insomnia, unspecified type 4 Pitsiladis Liss. [address] [place], [place], [id number], [place]. tel:[phone] [facility] [address] [facility] [place], [place], [id number], [place] tel:[phone] [place] Follow-up (chief complaint) Mixed hyperlipidemiaOsteoporo sis without current pathological fracture, unspecified osteoporosis typeAdvanced directives, counseling/discussion 4 Pitsiladis Liss. [address] [place], [place], [id number], [place]. tel:[phone] Critical access hospital, 1 [facility], [facility], [place], [place], [id number], [place] tel:[phone] [place] Other specified personal risk factors, not elsewhere classifiedUnspecified visual disturbance Sep- 4 Pitsiladis Liss. [address], [place], [place], [id number], [place]. tel:[phone] Critical access hospital, 1 [facility], [facility], [place], [place], [id number], [place] tel:[phone] [place] No Information Sep- 4 Pitsiladis Liss. [address] [place], [place], [id number], [place]. tel:[phone] Critical access hospital, 1 [facility], [facility], [place], [place], [id number], [place] tel:[phone] [place] No Information Sep- 4 Pitsiladis Liss. [address] [place], [place], [id number], [place]. tel:[phone] [facility] hospital, [address], [place], [place], [id number], [place] tel:[phone] [place] Major depressive disorder, recurrent, in partial remission Sep- 4 Pitsiladis Liss. [address] [place], [place], [id number], [place]. tel:[phone] Critical access hospital, 1 [facility], [facility], [place], [place], [id number], [place] tel:[phone] [place] Encounter for rehabilitation evaluation Sep-0 4 Javier Rosalina. [address] [place], [id number], [place]. tel:[phone] Critical access hospital, [address] [address], [place], [place], [id number], [place] tel:[phone] [place] Encounter for rehabilitation evaluation Sep-0 4 Gerardo Steve. [address] [facility], [place], [address]. tel:[phone] Critical access hospital, [address] [address], [place], [place], [id number], [place] tel:[phone] [place] Encounter for nutritional assessmentClass 1 obesity with serious comorbidity and body mass index (BMI) of 32.0 to 32.9 in adult, unspecified obesity typeBody mass index [BMI] 32.0-32.9, adult Sep-0 4 Normile Keena. [address] [place], [id number], [place]. tel:[phone] Critical access hospital, [address] [address], [place], [place], [id number], [place] tel:[phone] [place] Post Enrollment Evaluation (chief complaint) History of mammogramStage 3a chronic kidney diseasePrediabetesRecur rent major depressive disorder, in partial remissionHypothyroidism , unspecified typeVitamin D deficiencyHyperparathyr oidismHistory of UTIGAD (generalized anxiety disorder)Mixed hyperlipidemiaObesity, Class I, BMI 30.0-34.9 (see actual BMI)BMI 32.0-32.9,adultLumbar spondylosisMild dementia with other behavioral disturbance, unspecified dementia typeOsteoporosis without current pathological fracture, unspecified osteoporosis type Sep-0 4 Pitsiladis Liss. [address] [place], [id number], [place]. tel:[phone] Critical access hospital, [address] [address], [place], [place], [id number], [place] tel:[phone] [place] No Information Sep-0 4 Normile Keena. [address], [place], [place], [id number], . tel:[phone] Family History Family Member Type Diagnosis Age [...] Payer name Insurance type Covered republican ID Authoriza divya(s) Yoics 16 [id number] [employer] 16 [id number] [employer] 16 [id number] [employer] 16 [id number] Social History Type Description Quantity Date Captured Comments Sex Female Smoking Status No Information Chief Complaint And Reason For Visit No Information Plan Of Treatment Date Type Action Status Referral Ordered: Dentistry (related to Need for dental care) ordered Referral Ordered: Gill Box Operator (related to Visual changes) ordered Referral Ordered: Referrals: Dentistry. Evaluate and treat ordered Referral Ordered: Referrals: Gill Box Operator. Evaluate and treat ordered Referral Referred To: Dr. Willett Ordered: Referrals: Psychiatry. Dr. Willett Appointment date/timeframe: 02/16/2024 ordered Future Order: Lab Order Urinalys is, Macroscopic ([id number]), Ordered on: Ordered History Of Present Illness Encounter Date Complaint History Of Prese nt Illness Semi-Annual Judy is a 73-ye ar-old female who presents today for a semi-annual visit. She is accompanied by her (Rahul). Judy enrolled in the PACE program on 02/07/24. Prior to this, she was following with Dr. Brittany Milan as her PCP. Allergies: Benadryl; gets dizzy. No anaphylaxis. She has never been advised to carry an Epi pen. Discussed that this is likely not a true allergy. Immunizations: UTD. History of ER visits/Falls/SNF/Hospitalizations:-Admitted to [facility] Psych from 07/04-07/13/24 with severe depression. -06/18/24 To [facility] ER with vomiting, treated for viral GI illness. -Before COVID, was on 5th floor x 1.5 years at [place] on their psychiatric unit. Then was for a few months on 1st floor in a unit x few months for psychiatric concerns. Specialists:-Dr. Fausto Willett at [facility], psychiatrist. Judy has been with Dr. Willett for 20 years and given her complex psychiatric history she will continue to see him. -No other specialists. Advanced directives:-HCP on file dated 08/07/2023 indicating her primary HCP is Boris Rodrigues (spouse and secondary is Cristela Rodrigues (son). HCP not invoked as far as patient and spouse are aware.-MOLST: MOLST on file dated 03/14/24 indicating she is a full code, yes to intubation (short-term only), yes to non-invasive ventilation, yes transfer to hospital, yes to dialysis, yes to short-term artificial nutrition, yes to artificial hydration. Confirmed wishes today. Social: Judy lives in the community in [place] with her , just the 2 of them. They have always lived in the area. They have family in [place] and [place]. Rahul has a son and daughter from a previous relationship and they also have one son together. No alcohol or smoking present or past. Mammogram: Per pre-enrollment documents, last performed 05/22/2022 with results stating, t he breasts are extremely dense, which lowers the sensitivity of mammography . No significant abnormalities seen. She would like to continue screening; order was entered in 02/2024. Message sent to follow up on scheduling. Diet: No specific diet. She reports she is eating well. Colonoscopy: Judy and her are unsure when her last colonoscopy was; they think possibly 1 year ago at [facility]. Bone density: Unclear when her last DEXA was. She has osteoporosis listed in her history with unclear treatment history. Records (dated 03/03/24 page 47) notes history of m ultiple old compression fractures of the lumbar spine. There is tenderness on palpation in the projection of L1-L2 and L3 vertebras. She denies radiation of the pain. Most likely her pain is secondary to spondylosis and facet joint arthropathy . DEXA ordered at [facility]; message sent to follow up. Mobility: Walks independently. During exam, she tends to shuffle when walking. Dental: Judy has upper dentures. They are very old and not fitting well. She has some teeth left on the bottom. She would like to see a dentist. I have entered a referral for [facility]. Hearing: No concerns. No hearing aids. Vision: Uses glasses for reading only, working okay. Skin: No concerns. No history of wounds.Sleep: Judy reports she has been seeing better lately. Dr. Willett adjusts her medications as needed and she is seeing him this week. Post Hospital Evaluation Judy loco s a 73 year old female who is seen today for a post-hospital evaluation. She is accompanied by her .In review of recent events, Judy was seen at [facility] on 06/18/24 with vomiting and LLQ abdominal [...] pain.-Drink lots of water. -Call us at [phone] if you feel you are getting worse [...] exam. She is accompanied by her (Rahul). Jduy enrolled in the PACE program as of [...] today.History of ER visits/Falls/SNF/Hospitalizations:-05/25/23 -06/14/23: Inpatient at [facility]. No other hospitalizations, ER visits since then. -Before COVID, was on 5th floor x 1.5 years at [place] on their psychiatric unit. Then was for a few months on 1st floor in a unit x few months for psychiatric concerns. Specialists:-Dr. Fausto Willett at [facility]. Seeing him tomorrow. He is a [...] discussed with plan to complete form at [facility] follow up visit in 1 month. Social: Judy lives in the community in [place] with her , just the 2 of them. They have always lived in the area. They have family in [place] and [place]. Herve has a son and daughter from [...] they think possibly 1 year ago at [facility]. Bone density: Unclear when her last DEXA was. Not seen in pre-enrollment records from [place]. Osteoporosis listed in her problem list with [...] Additional Infor steven -Per pre-enrollment (01/31/22 page 24), noted in problem list. -Goal Vitamin D level >30. -08/2024 Vit D 52. 02/2024 Vit D 47.-She is on supplement given history of osteoporosis.-Continue periodic labs. Related to Vitamin D deficiency -Per pre-enrollment (01/31/22 page 24), noted in problem list. -She has co-existing CKD3A on labs today. PTH 02/15/24 at 60, Ca 9.5. Repeated labs 08/2024 showing PTH 24, Ca 10.1, Vit D 52. -Pending DEXA. -Continue routine labs. Consider [facility] consult as needed for treatment recommendations. Related to Hyperparathyroidism -Per pre-enrollment (01/31/22 page 24) described as generalized anxiety disorder. She has a complicated psychiatric history and follows closely with her psychiatrist Dr. Willett. Per pre-enrollment, has been treated in the past with ECT, Trintellix, Doxepin, Caplyta. Admitted in early 2023 to [place] with ???anxiety, racing thoughts, insomnia???. Underwent ECT while there. She was then transferred to medical service for medical concerns after refusing her medications for several days.-She reports more recent treatment with TMS, supposed to be every 6 months, finished around January 2024.-Continue following with Dr. Willett given complex psychiatric history. Pending most recent note from 07/04/24. -Continue PRN TID lorazepam, mirtazapine 30mg daily, Seroquel 50mg at bedtime, trazodone 50mg at bedtime, Vraylar 1.5mg daily, pramipexole 0.25mg TID, propranolol 10mg TID. Related to POONAM (generalized anxiety disorder) -Per pre-enrollment (01/31/22 page 16) described as MDD, recurrent severe without psychotic features. Per pre-enrollment, has been treated in the past with ECT, Trintellix, Doxepin, Caplyta. Admitted in early 2023 to [place] with ???anxiety, racing thoughts, insomnia???. Underwent ECT while there. She was then transferred to medical service for medical concerns after refusing her medications for several days. -Says she was having ECT 3x/week for months. Doesn't want to do anymore due to age. She feels mood is stable, feels anxious ???not every day???. No SI/HI.-She reports more recent treatment with TMS, supposed to be every 6 months, finished around January. -Continue following with Dr. Willett given complex psychiatric history. -Continue PRN TID lorazepam, mirtazapine 30mg daily, Seroquel 50mg at bedtime, trazodone 50mg at bedtime, Vraylar 1.5mg daily, pramipexole 0.25mg TID, propranolol 10mg TID. -Pending updated psych note. Message sent to get copy. Related to Recurrent major depressive disorder, in partial remission -Per pre-enrollment (01/31/22 page 24), on problem [...] DEXA scan was. Order placed for updated DEXA.-Vit D 52, Calcium 10.1. Continue Calcium-Vitamin D supplement (started in early 2024). Related to Osteoporosis, unspecified osteoporosis type, unspecified pathological fracture presence -Per pre-enrollment (01/31/22 page 38) states ???dementia??? [...] spouse. Last inpatient psychiatric stay was early 2024 at recommendation of her psychiatrist. Stable since then. -HCP is not currently invoked but will [...] creatinine 1.11. 11/2022 eGFR 46, creatinine 1.17. -08/2024 eGFR 64, creatinine 0.94. 06/2024 eGFR 48, creatinine 1.21. 02/2024 eGFR 58, creatinine 1.02. -More recent improvements. Will continue to assess labs periodically to see if this is sustained. -Avoid nephrotoxins, encourage hydrations, BP management, continue periodic labs. Related to Stage 3a chronic kidney disease -Per pre-enrollment (01/31/22 page 24), history of hypothyroidism on problem list. Unclear etiology. Not on levothyroxine. -08/2024 TSH 1.63. 02/2024 TSH 3.15. 04/11/22 TSH 2.65. -Continue periodic labs. Related to Hypothyroidism, unspecified type -Per pre-enrollment (01/31/22 page 3); labs show HbA1c 5.7%. Never been diagnosed with diabetes.-08/2024 HbA1c 5.9%. 02/2024 HbA1c 6.1%, glucose 80 (non-fasting). -Continue routine screening. Lifestyle management. Related to Prediabetes -02/2024 TC 224, HDL 67, LDL 131, [...] once daily in the evening in March 2024.-Repeat labs 08/2024 TC 166, HDL 58, LDL 87, TG 110. No changes today. Related to Mixed hyperlipidemia -CT abd/pelvis with IV contrast 06/2024 showed 7 mm pulmonary nodule at the left lung base without prior studies for comparison. In the setting of risk factors for primary pulmonary malignancy, dedicated chest CT should be obtained on a nonemergent basis. Follow-up chest CT in 3-12 months is recommended for a low risk patient .-She is a non-smoker. -Will discuss at next visit and order CT this year if indicated and in line with goals of care. Related to Pulmonary nodule -Per pre-enrollment (01/31/22 page 24) described as generalized anxiety disorder. She has a complicated psychiatric history and follows closely with her psychiatrist Dr. Willett. Per pre-enrollment, has been treated in the past with ECT, Trintellix, Doxepin, Caplyta. Admitted in early 2023 to [place] with ???anxiety, racing thoughts, insomnia???. Underwent ECT [...] Doxepin, Caplyta. Admitted in early 2023 to [place] with ???anxiety, racing thoughts, insomnia???. Underwent ECT [...] 3-6 months. Related to Mixed hyperlipidemia -At E appt, jinny t and spouse report she [...] Doxepin, Caplyta. Admitted in early 2023 to [place] with ???anxiety, racing thoughts, insomnia???. Underwent ECT [...] Doxepin, Caplyta. Admitted in early 2023 to [place] with ???anxiety, racing thoughts, insomnia???. Underwent ECT [...] is possible however the history in the [facility] records suggests possible FARNAZ. Will explore [...] Doxepin, Caplyta. Admitted in early 2023 to [place] with ???anxiety, racing thoughts, insomnia???. Underwent ECT [...] Doxepin, Caplyta. Admitted in early 2023 to [place] with ???anxiety, racing thoughts, insomnia???. Underwent ECT [...] Related to Advanced directives, counseling/discussion -Per pre-enrollment (8/26/22 page 24), on problem list and patient [...] medications, hypothyroidism. -Routine screening labs. Periodic weights. Switch House Operator to see her for screening and counseling if indicated. Related to BMI 32.0-32.9,adult -Per pre-enrollment (01/31/22 pg 30).-BMI 32.2 today. -Routine screening labs. Periodic weights. Switch House Operator to see her for screening and counseling [...] Doxepin, Caplyta. Admitted in early 2023 to [place] with ???anxiety, racing thoughts, insomnia???. Underwent ECT [...] Related to POONAM (generalized anxiety disorder) -At [facility] appt, jinny t and spouse report [...] She did have parathyroid imaging in 03/2019 ([facility]) with results stating There is homogeneous uptake [...] Doxepin, Caplyta. Admitted in early 2023 to [place] with ???anxiety, racing thoughts, insomnia???. Underwent ECT [...] not be admitted to hospital Patient Goal Continued Judy has depression and anxiety she is at risk for hospitalization due to the mental health issues. Judy will identify coping strategies, and utilize these strategies during increased feelings of depression and anxiety. Patient Goal Continued Judy is at risk for skin breakdown related to incontinence Skin will remain free from breakdown for 6 months. Patient Goal Continued
--- NOTE | 2024-09-22 17:42 | A.OFFPSYCH_ITS ---
Intake Intake Visit Reasons: depression Allergies risperidone [From Risperdal] Allergy (Intermediate, Verified 07/04/24 14:15) UNKNOWN Sulfa (Sulfonamide Antibiotics) Allergy (Intermediate, Verified 07/04/24 14:15) rash From BENADRYL Allergy (Intermediate, Uncoded 11/04/23 12:53) DIZZY HPI- Psychiatric Chief Complaint: depression HPI Narrative: Patient seen psychiatric follow-up with her . Patient's mood has improved she has changed her medical care to an all-inclusive product. The patient has been going for walks walking her dog visiting friends which is quite different for her Past Psychiatric History: Patient with long history of recurrent depression with multiple prior psychiatric hospitalizations. 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 no classic bipolar symptoms past depressive psychotic episodes not for a number of years Mental Status Exam Mental Status Exam Patient Appearance: Appropriate Patient Orientation: Person, Place and Situation Level of Consciousness: Awake Patient Behavior: Passive Behavior Comments: Some movement of her legs at times back and forth lower extremities patient's smiling stating she is feeling much better alert cooperative Mood Description: Appropriate and Relaxed Affect Description: Calm Patient Cognition Impaired: Yes Ability to Follow Directions: Good Speech Pattern: Clear Memory Description: Episodic Impaired and Working Impaired Hallucinations: None Delusions: Not Present Thought Process: Linear Thought Content: positive for [place] Judgement: Fair Judgement and Insight: No psychosis or SI improving mood restless leg noted to moderate degree Assessment and Plan Assessment & Plan (1) POONAM (generalized anxiety disorder): Status: Acute Code(s): F41.1 - Generalized anxiety disorder (2) Major depressive disorder, recurrent episode: Status: Acute Code(s): F33.9 - Major depressive disorder, recurrent, unspecified Plan Continue current medication patient appears stable she does have akathisia despite Ativan and propranolol but appears much improved patient not complaining of this. Trade off appears maintaining Vraylar which patient wishes to do as does her appears to be achieving some degree of significant stability again socialization improved energy no oral facial dyskinesia risks benefits alternatives reviewed Mood much improved question of bipolar 2 versus agitated depression Counseling and coordination of Care Medication management counseling: Effectiveness, Side effects and Dosing range Diagnosis and Prognosis Counseling: Impact of diagnosis on life functions and Adequacy of current interventions Details: I spent [30] minutes reviewing the record, seeing the patient and documenting in the medical record. Counseling provided to the patient/caregiver as outlined below. Addressed patient/caregiver concerns regarding current medication regime including effective adherence. Addressed patient/caregiver concerns regarding diagnosis and prognosis including accuracy of diagnosis, prognosis over time, impact of diagnosis. Addressed patient/caregiver concerns regarding impact of recent stressors. [facility] Medical History Dementia Nocturnal hypoxia Severe recurrent major depression w/psychotic features, mood-congruent Has daytime drowsiness Preoperative examination Elevated glucose Screening for colon cancer Screening for diabetes mellitus Obesity (BMI 30-39.9) Confused but orients easily Depression, major, severe recurrence Abnormal serum protein electrophoresis Mild recurrent major depression Anxiety and depression Encounter for Medicare annual wellness exam Removal of nell Depression with anxiety Abdominal distention Weight gain Major depression, recurrent, full remission POONAM (generalized anxiety disorder) Hypothyroidism Hyperparathyroidism Multinodular thyroid Vitamin D deficiency Osteoporosis Surgical History Hx of colonoscopy Hx of kyphoplasty Hx of section Family History Father Myocardial infarction CVD (cardiovascular disease) Mother Dementia Alzheimer disease Other Mental health disorder Social History Household Members: Spouse Housing: House Do you presently have visiting nurse or other home services: Yes (come once a week to fill medication) Alcohol intake: never Comment: 1:1 sitter at bedside Patient Tobacco Use Status: Never used Tobacco e-Cigarette/Vaping Use: Never Used Second Hand Smoke Exposure: No Advance Directives Date on File: 09/04/23 service: No Current occupational status: unemployed Sexual orientation: Straight/Heterosexual Cognitive needs: No Hearing needs: No Social History: Patient disabled has 1 son. Chronic anxiety has an intermittent difficult relationship with her mostly has not worked Substance History: Denies Trauma History: None noted Coding Level of Care Code Est Pt Level 4 (63481) Diagnoses POONAM (generalized anxiety disorder) F41.1 Major depressive disorder, recurrent episode F33.9
== END 2024-09-20 14:25 | disposition home or self-care (01) ==
LOC: HO.HOP 13:43
PROVIDERS: PCP Nurse Practitioner Family; Visit Provider Psychiatry & Neurology Psychiatry
DX: F41.1 Generalized anxiety disorder (principal); F33.9 Major depressive disorder, recurrent, unspecified
CPT/HCPCS: 99214

== ENCOUNTER → 2024-11-07 15:41 | Outpatient (REF) | payer MEDICARE, SELFPAY ==
--- NOTE | 2024-11-07 15:47 | ECG_ITS ---
Test Reason : PALPITATIONS Blood Pressure : */* mmHG Vent. Rate : 80 BPM Atrial Rate : 80 BPM P-R Int : 144 ms QRS Dur : 72 ms QT Int : 388 ms P-R-T Axes : 36 -3 25 degrees QTcB Int : 447 ms Normal sinus rhythm Inferior infarct , age undetermined Abnormal ECG When compared with ECG of 04-Jul-2024 15:06, Inferior infarct is now Present Referred By: Broderick Willett Electronically Signed By: ELISE WEI
--- OUTSIDE RECORDS SUMMARY | 2024-11-07 16:50 | XMS_ITS | Clinical Summary ---
Author Organization Unknown Care Team Providers Care Pre Press Manager Name Role Phone TAMEKA RODRIGUEZ, VITALY Unavailable Unavailable USMAN DONOHUE, FABIANO Unavailable Unavailable Payers Payer Name Policy Type Policy Number Effective Date Expira tion Date [facility] [facility] [place] [id number] MEDICAID [facility] [id number] MEDICARE - [facility] [id number] Problems Condition Name Condition Details Condition Category [...] 10 mg tablet 11-19 00:00: 00 Yes [id number] 10 mg BEDTIME 10 mg BEDTIME (route: oral) Med Classific ation: Cognitive Disorder Therapy folic acid 1 mg tablet 11-19 00:00: 00 Yes [id number] 1 mg DAILY 1 mg BECK Y (route: oral) Med Classific ation: Electroly te Balance-N utritiona l Products lorazepam 0.5 mg tablet 11-19 00:00: 00 06-21 23:59 :00 No [id number] 0.5 mg 2 TIMES DAILY 0.5 mg 2 TIMES DAILY (route: oral) Med Classific ation: Central Nervous System Agents melatonin 5 mg capsule 11-19 00:00: 00 07-17 23:59 :00 No [id number] 5 mg BEDTIME 5 mg BEDTIME (route: oral) Med Classific ation: Central Nervous System Agents memantine 10 mg tablet 11-19 00:00: 00 09-27 23:59 :00 No [id number] 10 mg 2 TIMES DAILY 10 mg 2 TIMES DAILY (route: oral) Med Classific ation: Cognitive Disorder Therapy propranolol 10 mg tablet 11-19 00:00: 00 Yes [id number] 10 mg 3 TIMES DAILY 10 mg 3 TIMES DAILY (route: oral) Med Classific ation: Cardiovas cular Therapy Agents quetiapine 25 mg tablet 09-03 00:00: 00 11-19 00:00 :00 No [id number] 25 mg BEDTIME 25 mg BEDTIME (route: oral) Med Classific ation: Central Nervous System Agents quetiapine 25 mg tablet 09-03 00:00: 00 11-19 00:00 :00 No [id number] 25 mg BEDTIME 25 mg BEDTIME (route: oral) Med Classific ation: Central Nervous System Agents thiamine HCl (vitamin B1) 100 mg tablet 11-19 00:00: 00 07-17 23:59 :00 No [id number] 100 mg DAILY 100 mg DAILY (route: oral) Med Classific ation: Electroly te Balance-N utritiona l Products trazodone 50 mg tablet 11-19 00:00: 00 Yes [id number] 50 mg BEDTIME 50 mg BEDTIME (route: oral) Med Classific ation: Central Nervous System Agents Trintellix 20 mg tablet 11-19 00:00: 00 06-21 23:59 :00 No [id number] 20 mg DAILY 20 mg DAILY (route: oral) Med Classific ation: Central Nervous System Agents mirtazapine 15 mg tablet 10-22 00:00: 00 11-19 00:00 :00 No [id number] 1 tablet BEDTIME 1 tablet BEDTIME (route: oral) Med Classific ation: Central Nervous System Agents Rexulti 0.5 mg tablet 10-22 00:00: 00 11-19 00:00 :00 No [id number] 1 tablet DAILY 1 tablet DAILY (route: oral) Med Classific ation: Central Nervous System Agents ibuprofen 200 mg tablet 11-19 00:00: 00 06-21 23:59 :00 No [id number] 1 tablet EVERY 6 HOURS 1 tablet EVERY 6 HOURS (route: oral) Med Classific ation: Analgesic , Anti-infl ammatory or Antipyret ic mirtazapine 30 mg tablet 11-19 00:00: 00 Yes [id number] 1 tablet BEDTIME 1 tablet BEDTIME (route: oral) Med Classific ation: Central Nervous System Agents quetiapine 50 mg tablet 11-19 00:00: 00 06-21 23:59 :00 No [id number] 1 tablet BEDTIME 1 tablet BEDTIME (route: oral) Med Classific ation: Central Nervous System Agents Rexulti 1 mg tablet 11-19 00:00: 00 05-26 23:59 :00 No [id number] 1 tablet EVERY AM 1 tablet EVERY AM (route: oral) Med Classific ation: Central Nervous System Agents Rexulti 1 mg tablet 11-19 00:00: 00 06-21 23:59 :00 No [id number] 0.5 tablet BEDTIME 0.5 tablet BEDTIME (route: oral) Med Classific ation: Central Nervous System Agents atorvastati n 20 mg tablet 06-21 00:00: 00 Yes [id number] 1 tablet BEDTIME 1 tablet BEDTIME (route: oral) Med Classific ation: Cardiovas cular Therapy Agents lorazepam 1 mg tablet 06-21 00:00: 00 07-15 23:59 :00 No [id number] 1 mg BEDTIME 1 mg BEDTIME (route: oral) Med Classific ation: Central Nervous System Agents quetiapine 200 mg tablet 06-21 00:00: 00 07-17 23:59 :00 No [id number] 200 mg BEDTIME 200 mg BEDTIME (route: oral) Med Classific ation: Central Nervous System Agents Trintellix 20 mg tablet 06-21 00:00: 00 07-17 23:59 :00 No [id number] 1 tablet EVERY AM 1 tablet EVERY AM (route: oral) Med Classific ation: Central Nervous System Agents gabapentin 300 mg capsule 1-14 00:00: 00 Yes [id number] 1 capsule BEDTIME 1 capsule BEDTIME (route: oral) Med Classific ation: Central Nervous System Agents ondansetron HCl 4 mg tablet 1-14 00:00: 00 07-17 23:59 :00 No [id number] 1 tablet EVERY 8 HOURS 1 tablet EVERY 8 HOURS (route: oral) Med Classific ation: Gastroint estinal Therapy Agents lorazepam 0.5 mg tablet 2-09 00:00: 00 Yes [id number] 1 tablet 3 TIMES DAILY 1 tablet 3 TIMES DAILY (route: oral) Med Classific ation: Central Nervous System Agents pramipexole 0.25 mg tablet 2-09 00:00: 00 Yes [id number] 1 tablet 3 TIMES DAILY 1 tablet 3 TIMES DAILY (route: oral) Med Classific ation: Central Nervous System Agents quetiapine 25 mg tablet -09 00:00: 00 07-26 23:59 :00 No [id number] 1 tablet BEDTIME 1 tablet BEDTIME (route: oral) Med Classific ation: Central Nervous System Agents thiamine HCl (vitamin B1) 100 mg tablet -09 00:00: 00 Yes [id number] 1 tablet 2 TIMES DAILY 1 tablet 2 TIMES DAILY (route: oral) Med Classific ation: Electroly te Balance-N utritiona l Products Vraylar 1.5 mg capsule -09 00:00: 00 Yes [id number] 1 capsule DAILY 1 capsule DAILY (route: oral) Med Classific ation: Central Nervous System Agents quetiapine 100 mg tablet -18 00:00: 00 08-23 23:59 :00 No [id number] 1 tablet BEDTIME 1 tablet BEDTIME (route: oral) Med Classific ation: Central Nervous System Agents Seroquel XR 150 mg tablet,exte nded release 3-18 00:00: 00 Yes [id number] 1 tablet BEDTIME 1 tablet BEDTIME (route: oral) Med Classific ation: Central Nervous System Agents gabapentin 300 mg capsule 09-27 00:00: 00 Yes [id number] 1 capsule BEDTIME 1 capsule BEDTIME (route: oral) Med Classific ation: Central Nervous System Agents melatonin 5 mg capsule 09-27 00:00: 00 Yes [id number] 1 capsule BEDTIME 1 capsule BEDTIME (route: oral) Med Classific ation: Central Nervous System Agents memantine 10 mg tablet 09-27 00:00: 00 Yes [id number] 1 tablet EVERY AM 1 tablet EVERY AM (route: oral) Med Classific ation: Cognitive Disorder Therapy MELATONIN ORAL 01-01 00:00: 00 01-31 00:00 [...] CYANOCOBALA MIN (VITAMIN B-12) ORAL 08 00:00: 08-15 00:00 :00 No 1,000 mcg1 [...] L PRODUCTS VITAMIN B-1 ORAL 2017-06 00:00: 00 04-09 00:00 :00 No 100 [...] NERVOUS SYSTEM AGENTS TEMAZEPAM ORAL -22 00:00: 00 09-06 00:00 :00 No 15 [...] NERVOUS SYSTEM AGENTS ZOLPIDEM ORAL 2-08 00:00: 00 08-15 00:00 :00 No FOR [...] ation: CENTRAL NERVOUS SYSTEM AGENTS LORAZEPAM ORAL 917 00:00: 00 03-24 00:00 :00 No 0.5 mg1 TABLET TWICE DAILY 0.5 mg1 TABLET TWICE DAILY (route: ) Med Classific ation: CENTRAL NERVOUS SYSTEM AGENTS LORAZEPAM ORAL 01-01 00:00: 00 01-31 00:00 :00 No 0.5 mg1 TABLET TWICE DAILY 0.5 mg1 TABLET TWICE DAILY (route: ) Med Classific ation: CENTRAL NERVOUS SYSTEM AGENTS LORAZEPAM ORAL 2017-06 0 00:00: 00 05-07 00:00 :00 No 1 mg1/2 TO 1 TABLET TWICE DAILY 1 mg1/2 TO 1 TABLET TWICE DAILY (route: ) Med Classific ation: CENTRAL NERVOUS SYSTEM AGENTS LORAZEPAM ORAL 02-01 00:00: 00 03-03 00:00 :00 No 1 [...] SYSTEM AGENTS NORTRIPTYLI NE ORAL 2017-06 00:00: 06-18 00:00 :00 No 25 mg1 TO [...] ation: CENTRAL NERVOUS SYSTEM AGENTS GABAPENTIN ORAL 0 3-05 00:00: 00 09-09 00:00 :00 No [...] Observation Time Observation Value Commen ts Temperature 2024-10-18 10:13:00.000 97.2 [degF] Temperature 2024-09-27 15:38:00.000 97.7 [degF] Temperature 2024-09-20 08:44:00.000 97.4 [degF] Pulse 2024-10-18 10:13:00.000 91 /min Pulse 2024-09-27 15:38:00.000 83 /min Pulse 2024-09-20 08:44:00.000 93 /min Respirations 2024-10-18 10:13:00.000 16 /min Respirations 2024-09-27 15:38:00.000 18 /min Respirations 2024-09-20 08:44:00.000 18 /min Systolic Blood Pressure 2024-10-18 10:13:00.000 107 mm [Hg] Systolic Blood Pressure 2024-09-27 15:38:00.000 125 mm [Hg] Systolic Blood Pressure 2024-09-20 08:44:00.000 101 mm [Hg] Diastolic Blood Pressure 2024-10-18 10:13:00.000 64 mm [Hg] Diastolic Blood Pressure 2024-09-27 15:38:00.000 76 mm [Hg] Diastolic Blood Pressure 2024-09-20 08:44:00.000 76 mm [Hg] Plan of Treatment Planned Activity [...] HEALTH.] Future Scheduled Test SKILLED NU RSE TO PRE-POUR MEDICATION PER MEDICATION LIST EACH VISIT [code = SKILLED NURSE TO PRE-POUR MEDICATION PER MEDICATION LIST EACH VISIT ] Future Scheduled Test PATIENT MA Y HAVE ONE SET OF EMERGENCY MEDICATION NOT TO BE PRE-POURED ANY SOONER THAN 24 HOURS BEFORE SEVERE INCLEMENT WEATHER OR EMERGENT EVENT AND FOLLOWING SKILLED NURSE EVALUATION OF PATIENT SAFETY. [code = PATIENT MAY HAVE ONE SET OF EMERGENCY MEDICATION NOT TO BE PRE-POURED ANY SOONER THAN 24 HOURS BEFORE SEVERE INCLEMENT WEATHER OR EMERGENT EVENT AND FOLLOWING SKILLED NURSE EVALUATION OF PATIENT SAFETY.] Future Scheduled Test SKILLED NU RSE TO O/A OF PATIENTS MENTAL/BEHAVIORAL STATUS, ASSESS VITAL SIGNS EACH VISIT ALLOW 2 PRNS FOR MEDICATION MANAGEMENT. [code = SKILLED NURSE TO O/A OF PATIENTS MENTAL/BEHAVIORAL STATUS, ASSESS VITAL SIGNS EACH VISIT ALLOW 2 PRNS FOR MEDICATION MANAGEMENT.] Future Scheduled Test SKILLED NU RSE FOR O/A OF GENERAL HEALTH STATUS OF PAIN, CARDIAC, RESPIRATORY, GASTROINTESTINAL, GENITOURINARY, SKIN, NEUROLOGIC, ENDOCRINE SYSTEMS TO IDENTIFY CHANGES ASSOCIATED WITH EXACERBATION FOR EARLY INTERVENTION OF COMPLICATIONS [code = SKILLED NURSE FOR O/A OF GENERAL HEALTH STATUS OF PAIN, CARDIAC, RESPIRATORY, GASTROINTESTINAL, GENITOURINARY, SKIN, NEUROLOGIC, ENDOCRINE SYSTEMS TO IDENTIFY CHANGES ASSOCIATED WITH EXACERBATION FOR EARLY INTERVENTION OF COMPLICATIONS] Future Scheduled Test SKILLED NU RSE FOR [...] Future Scheduled Test SKILLED NU RSE TO PERFORM HOME SAFETY AND FALL ASSESSMENT AND PROVIDE INSTRUCTION TO IMPLEMENT HOME SAFETY AND FALL PREVENTION STRATEGIES. [code = SKILLED NURSE TO PERFORM HOME SAFETY AND FALL ASSESSMENT AND PROVIDE INSTRUCTION TO IMPLEMENT HOME SAFETY AND FALL PREVENTION STRATEGIES.] Future Scheduled Test SKILLED NU RSE FOR OBSERVATION AND ASSESSMENT OF PATIENTS PAIN LEVEL AND EFFECTIVENESS OF PAIN MANAGEMENT REGIMEN. SKILLED NURSE TO INSTRUCT PATIENT/CAREGIVER REGARDING PHARMACOLOGIC AND NON-PHARMACOLOGIC PAIN CONTROL MEASURES. SKILLED NURSE TO REPORT TO PHYSICIAN IF PAIN IS UNCONTROLLED WITH CURRENT PAIN MANAGEMENT REGIMEN. [code = SKILLED NURSE FOR OBSERVATION AND ASSESSMENT OF PATIENTS PAIN LEVEL AND EFFECTIVENESS OF PAIN MANAGEMENT REGIMEN. SKILLED NURSE TO INSTRUCT PATIENT/CAREGIVER REGARDING PHARMACOLOGIC AND NON-PHARMACOLOGIC PAIN CONTROL MEASURES. SKILLED NURSE TO REPORT TO PHYSICIAN IF PAIN IS UNCONTROLLED WITH CURRENT PAIN MANAGEMENT REGIMEN.] Future Scheduled Test PATIENT GRIJALVA S A RISK OF HOSPITALIZATION AND ED USE. SKILLED NURSE TO ESTABLISH SUPPORT MEASURES TO MINIMIZE RISK OF HOSPITALIZATION AND ED USE, AND INSTRUCT PATIENT/CAREGIVER ON METHODS TO REDUCE AVOIDABLE HOSPITALIZATION AND ED USE. [code = PATIENT HAS A RISK OF HOSPITALIZATION AND ED USE. SKILLED NURSE TO ESTABLISH SUPPORT MEASURES TO MINIMIZE RISK OF HOSPITALIZATION AND ED USE, AND INSTRUCT PATIENT/CAREGIVER ON METHODS TO REDUCE AVOIDABLE HOSPITALIZATION AND ED USE.] Future Scheduled Test SKILLED NU RSE TO [...] SERVICES.] Future Scheduled Test SKILLED NU RSE WILL MAINTAIN SITUATIONAL AWARENESS FOR SAFETY AND WILL NOTIFY CLINICAL COLOR DIPPER AND PHYSICIAN/PROVIDER WITH ANY CHANGE IN CONDITION. [code = SKILLED NURSE WILL MAINTAIN SITUATIONAL AWARENESS FOR SAFETY AND WILL NOTIFY CLINICAL COLOR DIPPER AND PHYSICIAN/PROVIDER WITH ANY CHANGE IN CONDITION.] Goal 2024-05-17 Patient Goal - NO MORE HOSPI TALIZATION Goal 2024-01-14 Patient Goal - NO MORE HOSPI TALIZATION Goal 2024-03-15 Patient Goal - NO MORE HOSPI TALIZATION Goal 2024-07-14 Patient Goal - NO MORE HOSPI TALIZATION Goal 2024-09-13 Patient Goal - NO MORE HOSPI TALIZATION Goal Patient Goal - NO MORE HOSPI TALIZATION Goal Provider Goal - A PLAN OF CARE WILL BE ESTABLISHED THAT MEETS PATIENT'S ASSISTED NEEDS AND INCLUDES PATIENT GOAL FOR HOME HEALTH. Goal Provider Goal - PATIENT WILL COMPLY WITH MEDICATION WHEN SKILLED NURSE PRE-POURS MEDICATION THROUGHOUT CERTIFICATION PERIOD. Goal Provider Goal - MEDICATION WILL BE AVAILABLE DURING INCLEMENT WEATHER OR EMERGENT EVENT THROUGHOUT CERTIFICATION PERIOD. Goal Provider Goal - ALTERED MENTAL/BEHAVIORAL STATUS WILL BE IDENTIFIED PROMPTLY AND INTERVENTION INITIATED QUICKLY TO MINIMIZE ASSOCIATED RISKS THROUGHOUT CERTIFICATION PERIOD. Goal Provider Goal - CHANGE IN GENERAL HEALTH STATUS WILL BE IDENTIFIED AND REPORTED TO PHYSICIAN FOR PROMPT INTERVENTION TO MINIMIZE ASSOCIATED RISKS THROUGHOUT CERTIFICATION PERIOD. [...] PERIOD. Goal Provider Goal - PATIENT/CAREGIVER WILL VERBALIZE/DEMONSTRATE EFFECTIVE HOME SAFETY AND FALL PREVENTION STRATEGIES THROUGHOUT CERTIFICATION PERIOD. Goal Provider Goal - PATIENT/CAREGIVER WILL DEMONSTRATE UNDERSTANDING OF PHARMACOLOGIC AND NONPHARMACOLOGIC PAIN CONTROL MEASURES AND PATIENT WILL HAVE IMPROVEMENT IN PAIN INTERFERING WITH ACTIVITY EVIDENCED BY PAIN CONTROLLED AT LEVEL OF 5 OR LESS BY END OF CERTIFICATION PERIOD. Goal Provider Goal - PATIENT WILL HAVE SUPPORT MEASURES ESTABLISHED TO PREVENT HOSPITALIZATION AND ED USE AND PATIENT/CAREGIVER WILL VERBALIZE/DEMONSTRATE METHODS TO REDUCE AVOIDABLE HOSPITALIZATION AND ED USE BY END OF EPISODE. Goal Provider Goal - PSYCHOSOCIAL NEEDS WILL BE IDENTIFIED AND PLAN IMPLEMENTED TO MINIMIZE RISK THROUGHOUT CERTIFICATION PERIOD. Goal Provider Goal - PATIENT WILL REMAIN SAFE IN THE COMMUNITY AND WILL BE FREE OF DANGER TO SELF AND OTHERS THROUGHOUT THE CERTIFICATION PERIOD. Encounters Start Date/Time End Date/Time Encounter Type Admission Type Attending [facility] Care Facility Care Department Encounter ID Discharge Date Discharge Status Discharge Condition Discharge Reason Percent Goals Met 2024-09-15 00:00:00 2024-11-13 00:00:00 Outpatient RECERTIFIC ATION [facility] [id number] 46.43
== END ==
LOC: HO.CARD 15:41
PROVIDERS: Visit Provider Psychiatry & Neurology Psychiatry
DX: R00.2 Palpitations (principal); F41.1 Generalized anxiety disorder; F33.9 Major depressive disorder, recurrent, unspecified; G47.00 Insomnia, unspecified
CPT/HCPCS: 93005; 99212

== ENCOUNTER → 2024-11-07 15:47 | Outpatient (BNV) | payer MEDICARE, SELFPAY | PROVIDERS: Visit Provider Internal Medicine | DX: R94.31 Abnormal electrocardiogram [ECG] [EKG] (principal); R00.2 Palpitations | CPT/HCPCS: 93010 ==

== ENCOUNTER 2024-11-07 15:54 | Outpatient (AMB) | payer MEDICARE, SELFPAY ==
--- NOTE | 2024-11-07 16:15 | MHC.OFFVISPS ---
Intake Intake Visit Reasons: depression Allergies risperidone (From Risperdal) Allergy (Intermediate, Verified 11/08/24 13:12) UNKNOWN Sulfa (Sulfonamide Antibiotics) Allergy (Intermediate, Verified 11/08/24 13:12) rash From BENADRYL Allergy (Intermediate, Uncoded 11/08/24 13:12) DIZZY HPI- Psychiatric Chief Complaint: depression HPI Narrative: Patient seen with her . She does seem more depressed hopeless concerned about insomnia repeatedly. Sometimes this seems like something of a mixed state Seroquel has been helpful in the past. Pt patient ruminating dysphoric states she has not been sleeping has not been doing anything to activate herself during the day. Her medications are laid out by [facility] she states she has been taking them properly . Melatonin at HS Seroquel and HS mirtazapine Vraylar in the morning. Patient denies restlessness when lying down she does show that during the day. Denies she has been experiencing hallucinations or thoughts of suicide Past Psychiatric History: Patient with long history of recurrent depression with multiple prior psychiatric hospitalizations. 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 no classic bipolar symptoms past depressive psychotic episodes not for a number of years Mental Status Exam Mental Status Exam Patient Appearance: Appropriate Patient Orientation: Person and Place Level of Consciousness: Awake and Alert Patient Behavior: Appropriate, Talkative and Cooperative Mood Description: Appropriate, Depressed and Apprehensive Affect Description: Withdrawn, Constricted and Apprehensive Patient Cognition Impaired: Yes Ability to Follow Directions: Fair Speech Pattern: Spontaneous Speech Memory Description: Immediate Impaired, Episodic Impaired and Working Impaired Hallucinations: None Delusions: Not Present Thought Process: Rumination Thought Content: positive for [place], positive for Preoccupation, negative for Suicidal Ideation or negative for Homicidal Ideation Depressive Symptoms: Increased Anxiety, Insomnia, Unhappiness, Loss of Energy and Difficulty Concentrating Judgement: Fair Judgement and Insight: Patient increasingly depressed associated with insomnia no clear adam reactivity pacing hyperactivity not noted Assessment and Plan Assessment & Plan (1) POONAM (generalized anxiety disorder): Status: Acute Code(s): F41.1 - Generalized anxiety disorder (2) Major depressive disorder, recurrent episode: Status: Acute Code(s): F33.9 - Major depressive disorder, recurrent, unspecified Plan Quetiapine at h.s. gabapentin at HS continue mirtazapine Vraylar during the day patient often has insomnia as a trigger for depressive episodes or has a main part of her depressive episodes has been quite difficult to treat in the past. Have avoided Ambien Lunesta generally have not wanted to worsening confusion Medications: Discontinued quetiapine Discontinued Reason: Doctor's Order 300 mg PO BEDTIME 90 tabs 1RF Orders: Orders ECG 12 lead EKG 11/07/24 R00.2 - Palpitations Counseling and coordination of Care Details-Self Mgmt counseling: Urge behavioral activation during the day sleep hygiene Diagnosis and Prognosis Counseling: Impact of family relationship and Adequacy of current interventions Details-Diagnosis/Prognosis counseling: Patient's may be getting more stressed when patient becomes ill frustrated at patient's lack of behavioral activation during the day not following suggestions again reviewed with patient and Details: I spent [30] minutes reviewing the record, seeing the patient and documenting in the medical record. Counseling provided to the patient/caregiver as outlined below. Addressed patient/caregiver concerns regarding current medication regime including effective adherence. Addressed patient/caregiver concerns regarding diagnosis and prognosis including accuracy of diagnosis, prognosis over time, impact of diagnosis. Addressed patient/caregiver concerns regarding impact of recent stressors. [facility] Medical History (Updated 12/09/24 @ 00:02 by Tasha Loyola) Vascular dementia with anxiety Dementia Nocturnal hypoxia Severe recurrent major depression w/psychotic features, mood-congruent Has daytime drowsiness Preoperative examination Elevated glucose Screening for colon cancer Screening for diabetes mellitus Obesity (BMI 30-39.9) Confused but orients easily Depression, major, severe recurrence Abnormal serum protein electrophoresis Mild recurrent major depression Anxiety and depression Encounter for Medicare annual wellness exam Removal of nell Depression with anxiety Abdominal distention Weight gain Major depression, recurrent, full remission POONAM (generalized anxiety disorder) Hypothyroidism Hyperparathyroidism Multinodular thyroid Vitamin D deficiency Osteoporosis Surgical History Hx of colonoscopy Hx of kyphoplasty Hx of section Family History Father Myocardial infarction CVD (cardiovascular disease) Mother Dementia Alzheimer disease Other Mental health disorder Social History Household Members: Spouse Housing: House Do you presently have visiting nurse or other home services: Yes (Visiting nurse to fill medications) Alcohol intake: never Comment: 1:1 sitter at bedside Patient Tobacco Use Status: Never used Tobacco e-Cigarette/Vaping Use: Never Used Second Hand Smoke Exposure: No Advance Directives Date on File: 09/04/23 service: No Current occupational status: unemployed Sexual orientation: Straight/Heterosexual Cognitive needs: No Hearing needs: No Social History: Patient disabled has 1 son. Chronic anxiety has an intermittent difficult relationship with her mostly has not worked Substance History: Denies Trauma History: None noted Coding Level of Care Code Est Pt Level 4 (81797) Diagnoses POONAM (generalized anxiety disorder) F41.1 Major depressive disorder, recurrent episode F33.9
== END 2024-11-07 16:19 | disposition home or self-care (01) ==
LOC: HO.HOP 15:54
PROVIDERS: PCP Nurse Practitioner Family; Visit Provider Psychiatry & Neurology Psychiatry
DX: F41.1 Generalized anxiety disorder (principal); F33.9 Major depressive disorder, recurrent, unspecified
CPT/HCPCS: 99214

== ENCOUNTER 2024-11-08 12:57 | Inpatient (IN) | payer OTHER, SELFPAY ==
[2024-11-08 13:06] VITALS: BP 144/79; PULSE 92; RESP 16; TEMP 36.1; O2SAT 99; BMI 28.8
--- NOTE | 2024-11-08 13:11 | ECG_ITS ---
Test Reason : qtc check Blood Pressure : */* mmHG Vent. 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
--- NOTE | 2024-11-08 13:11 | ED.GENADULT ---
HPI - General Adult General Chief complaint: Psychiatric Symptoms Stated complaint: crisis Time Seen by Provider: 11/08/24 14:12 Source: patient, family (patient's ) and manager of sustainability (all interactions with this patient were facilitated with an [facility] hand shaper) Mode of arrival: ambulatory Limitations: language barrier (all interactions with this patient were facilitated with an [facility] hand shaper) History of Present Illness ED Provider: Homa Pompa PA-C HPI narrative: Patient is a 74 year old assigned female at with a history of dementia, MDD, and POONAM presenting to the emergency department today with increased anxiety and requesting inpatient psychiatric care. Patient states that she spoke with the psychiatrist, Dr. Willett, who told her to come back in to the ER to be admitted to the psychiatric floor. Patient denies any dizziness, lightheadedness, abdominal pain, nausea, vomiting, fever, chills, blurry vision, double vision, loss of vision, chest pain, difficulty breathing, shortness of breath, back pain, night sweats, pain with urination, increased urinary frequency, increased urinary urgency, blood in her urine or stool, syncope or a near syncopal episode, recent trauma or falls, bowel incontinence, bladder incontinence, or any other complaints at this time. Relieving factors: none Exacerbating factors: none Associated symptoms: denies other symptoms Treatments prior to arrival: none Related Data Previous Rx's ?Medication ?Instructions ?Recorded Vraylar 1.5 mg capsule 1.5 mg PO DAILY #30 caps 08/19/24 (cariprazine) donepezil 10 mg tablet 10 mg PO BEDTIME 30 days #30 tabs 08/19/24 pramipexole 0.25 mg tablet 0.25 mg PO TID 30 days #90 tabs 08/19/24 propranolol 10 mg tablet 10 mg PO TID 90 days #270 tabs 08/19/24 quetiapine 25 mg tablet 25 mg PO DAILY PRN for anxiety #30 08/19/24 tabs thiamine mononitrate (vit B1) 100 100 mg PO BID #60 tabs 08/19/24 mg tablet lorazepam 0.5 mg tablet 0.5 mg PO DIRECTED 30 days #30 08/24/24 tabs trazodone 50 mg tablet 100 mg (2 x 50 mg) PO BEDTIME 08/24/24 Insomnia 90 days #180 tabs melatonin 5 mg capsule 5 mg PO BEDTIME #90 caps 09/22/24 mirtazapine 30 mg tablet 30 mg PO BEDTIME 30 days #30 tabs 09/23/24 gabapentin 300 mg capsule 600 mg (2 x 300 mg) PO BEDTIME 30 11/03/24 days #60 caps memantine 10 mg tablet 10 mg PO QAM 90 days #90 tabs 11/07/24 Allergies Allergy/AdvReac Type Severity Reaction Status Date / Time risperidone [From Risperdal] Allergy Intermediate UNKNOWN Verified 11/08/24 13:12 Sulfa (Sulfonamide Allergy Intermediate rash Verified 11/08/24 13:12 Antibiotics) From BENADRYL Allergy Intermediate DIZZY Uncoded 11/08/24 13:12 Review of Systems Constitutional: Constitutional: Reports no additional constitutional complaints, Denies chills, Denies fever(s) and Denies night sweats Eyes: Eyes: Reports no additional eye complaints, Denies blurry vision, Denies change in vision, Denies diplopia, Denies eye discharge, Denies loss of vision and Denies eye pain ENT: Denies dizziness Cardiovascular: Cardiovascular: Reports no additional cardiovascular complaints, Denies chest pain, Denies lightheadedness, Denies Loss of Consciousness and Denies dyspnea Respiratory: Respiratory: Reports no additional respiratory complaints and Denies dyspnea Gastrointestinal: Gastrointestinal: Reports no additional gastrointestinal complaints, Denies abdominal pain, Denies melena, Denies hematochezia, Denies change in bowel habits and Denies change in stool character Genitourinary: Genitourinary: Denies hematuria, Denies urinary frequency, Denies dysuria, Denies urinary incontinence, Denies urinary hesitancy and Denies urinary urgency Musculoskeletal: Musculoskeletal: Reports no additional musculoskeletal complaints, Denies numbness and Denies tingling Neurologic: Denies dizziness, Denies loss of vision, Denies numbness and Denies tingling Psychiatric: Psychiatric: Reports no additional psychiatric complaints Endocrine: Endocrine: Reports no additional endocrine complaints Hematologic/Lymphatic: Hematologic/Lymphatic: Reports no additional hematologic/lymphatic complaints Allergic/Immunologic: Allergic/Immunologic: Reports no additional allergic/immunologic complaints PMFSH Past Medical History Attestation statement: The following information was validated with the patient. Source: old records reviewed and nursing notes reviewed Medical History Dementia Nocturnal hypoxia Severe recurrent major depression w/psychotic features, mood-congruent Has daytime drowsiness Preoperative examination Elevated glucose Screening for colon cancer Screening for diabetes mellitus Obesity (BMI 30-39.9) Confused but orients easily Depression, major, severe recurrence Abnormal serum protein electrophoresis Mild recurrent major depression Anxiety and depression Encounter for Medicare annual wellness exam Removal of nell Depression with anxiety Abdominal distention Weight gain Major depression, recurrent, full remission POONAM (generalized anxiety disorder) Hypothyroidism Hyperparathyroidism Multinodular thyroid Vitamin D deficiency Osteoporosis Surgical History Hx of colonoscopy Hx of kyphoplasty Hx of section Family History Family History Father Myocardial infarction CVD (cardiovascular disease) Mother Dementia Alzheimer disease Other Mental health disorder Social History Social History Household Members: Spouse Housing: House Do you presently have visiting nurse or other home services: Yes (come once a week to fill medication) Alcohol intake: never Comment: 1:1 sitter at bedside Patient Tobacco Use Status: Never used Tobacco e-Cigarette/Vaping Use: Never Used Second Hand Smoke Exposure: No Advance Directives: Yes Advance Directives on File: Yes Advance Directives Date on File: 09/04/23 service: No Current occupational status: unemployed Sexual orientation: Straight/Heterosexual Cognitive needs: No Hearing needs: No Physical Exam ED Vital Signs: Vital Signs - 24 hr 11/08/24 13:06 Temperature 96.9 F Pulse Rate 92 Respiratory Rate 16 Blood Pressure 144/79 H Pulse Oximetry 99 Oxygen Delivery Method Room Air BMI result Body Mass Index 28.8 Const General: cooperative, no acute distress, alert and awake Nutritional Appearance: well nourished Orientation/consciousness: patient oriented x3 HENMT Head: Yes normal to inspection and Yes atraumatic Ears: hearing grossly normal bilaterally and external ears normal General nose exam: Normal external nose present, no nasal discharge noted and no epistaxis Face and sinus: Yes normal facial exam, No abrasion and No laceration Mouth: Normal oral and palatal mucosa present, no drooling and no muffled voice Eyes General: appearance normal, both eyes and all related structures Periorbital: periorbital findings normal Eyelids: Yes eyelids normal Conjunctivae: conjunctivae normal Pupils: Equal, round and reactive pupils present EOM: EOMs intact bilaterally Neck Neck: Yes normal visual inspection, Yes full ROM and Yes no lymphadenopathy Resp Effort & Inspection: normal respiratory effort and able to speak in complete sentences Neuro General: patient oriented x3, moves all extremities and CN's II-XI intact bilaterally Cranial nerves: Yes Equal, round and reactive pupils present Cognition (Neuro): normal cognition Extrem General: Yes normal to inspection, Yes full ROM and Yes capillary refill normal Psych Appearance: grossly normal Mental Status: mental status grossly normal Affect: normal affect Attitude: cooperative Thought process: Normal thought process present Thought content: Normal thought content present Insight: Good insight present (Psych) Course Course Course Narrative: RME, this is a rapid medical exam performed by Jose Martinez please refer to primary provider for complete H&P- 74-year-old female presents for evaluation of insomnia. She is a patient of Dr. Prather and was instructed to come to the hospital for inpatient admission and medication adjustment. She is not suicidal. Plan for medical clearance Medical Decision Making Medical Decision Making MDM Narrative: Patient is a 74 year old assigned female at with a history of dementia, MDD, and POONAM presenting to the emergency department today with increased anxiety and requesting inpatient psychiatric care. Patient's physical exam was as noted in the physical exam portion of this note. Patient's blood work was unremarkable. Patient's urine showed no acute process. Patient's EKG was unremarkable. I explained my physical exam findings as well as all test results to the patient. I answered all questions asked by the patient. Patient remains in observation pending CARE team evaluation. 1800 Homa Pompa PA-C: Patient evaluated by the CARE team and the patient admitted to our psychiatric inpatient service. Differential Diagnosis Differential Diagnoses: The differential diagnosis associated with the presentation includes Depression Admission/Observation Consideration of admission/observation: Escalation of care including admission/observation considered Patient admitted to our inpatient psychiatric unit. Lab Data [facility] Lab Attestation statement: I reviewed the patient's lab results. My interpretation of these results are in the MDM Rationale portion of this note. 11/08/24 13:33 11/08/24 13:33 Labs: Lab Results 11/08/24 11/08/24 Range/Units 13:33 16:16 WBC 7.7 (4.8-10.8) X10*3/uL RBC 5.04 (4.20-5.50) X10*6/uL Hgb 15.6 (12.0-16.0) g/dl Hct 46.7 (37.0-47.0) % MCV 92.7 (80.0-98.0) fL MCH 31.0 (27.0-33.0) pg MCHC 33.4 (31.0-35.0) g/dl RDW 13.5 (11.0-16.0) % Plt Count 174 D (160-400) X10*3/uL MPV 11.4 (9.4-12.3) fL Immature Gran % (Auto) 0.3 (0.0-0.4) % Neut % (Auto) 75.2 H (45-73) % Lymph % (Auto) 17.7 L (20-40) % [place] % (Auto) 6.0 (2-11) % Eos % (Auto) 0.4 (0-4) % Baso % (Auto) 0.4 (0-2) % Lymph # (Auto) 1.4 (1.2-4.9) X10*3/uL [place] # (Auto) 0.5 (0.1-1.2) X10*3/uL Eos # (Auto) 0.0 (0.0-0.4) X10*3/uL Baso # (Auto) 0.0 (0.0-0.2) X10*3/uL Abs Immat Gran (auto) 0.02 (0.00-0.03) X10*3/uL Absolute Neuts (auto) 5.8 (2.0-8.3) x10*3/uL Absolute Nucleated RBC 0.000 (0.0-0.012) X10*3/uL Nucleated RBC % (auto) 0.0 (0.0-0.2) /100WBC Sodium 143 (135-145) mmol/L Potassium 3.9 (3.3-5.1) mmol/L Chloride 107 (96-108) mmol/L Carbon Dioxide 24 (22-29) mmol/L Anion Gap 16 (12-20) BUN 17 H (9-16) mg/dL Creatinine 0.94 (0.5-1.4) mg/dL Estim Creat Clear Calc 41.7 Estimated GFR 58 Random Glucose 111 (60-115) mg/dL Calcium 10.1 D (8.4-10.2) mg/dL Total Bilirubin 0.6 (0.0-1.0) mg/dL AST 27 (5-31) U/L ALT 22 (0-31) U/L Alkaline Phosphatase 84 (39-117) U/L Total Protein 8.0 (6.5-8.0) g/dL Albumin 4.5 (3.5-5.0) g/dL Urine Color Yellow Urine Appearance Clear Urine pH 5.5 (5.0-9.0) Ur Specific [place] 1.015 (1.005-1.025) Urine Protein Negative (Neg-Trace) mg/dL Urine Glucose (UA) Negative (Negative) mg/dL Urine Ketones Trace (Negative) mg/dL Urine Blood Negative (Negative) Urine Nitrite Negative (Negative) Ur Leukocyte Esterase Trace H (Negative) Urine RBC 0-2 (0-2) /HPF Urine WBC 0-5 (0-5) /HPF Ur Squamous Epith Cells 0-2 (0-2) /HPF Urine Bacteria None Seen (None Seen) Hyaline Casts 0-2 (0-2) /LPF Salicylates < 5.0 L (15-30) mg/dL Urine Opiates Screen Not Detected (Not Detect) Ur Buprenorphine Scrn Not Detected (Not Detect) ng/mL Ur Oxycodone Screen Not Detected (Not Detect) ng/mL Urine Methadone Screen Not Detected (Not Detect) ng/mL Urine Fentanyl Screen Not Detected (Not Detect) Acetaminophen < 3 (<30) mcg/mL Ur Barbiturates Screen Not Detected (Not Detect) Ur Phencyclidine Scrn Not Detected (Not Detect) Ur Amphetamines Screen Not Detected (Not Detect) U Benzodiazepines Scrn Not Detected (Not Detect) Urine Cocaine Screen Not Detected (Not Detect) U Marijuana (THC) Screen Not Detected (Not Detect) Ethyl Alcohol < 10 mg/dL Independent Interpretation I performed an independent interpretation of an: Plain X-Ray Interpretation: I independently interpreted this EKG and am in agreement with the below findings: Vent. Rate: 74 BPM Atrial Rate: 74 BPM P-R Int: 154 ms QRS Dur: 72 ms QT Int: 400 ms P-R-T Axes: 28 -9 0 degrees QTcB Int: 444 ms Normal sinus rhythm Inferior infarct (cited on or before 07-Nov-2024) When compared with ECG of 07-Nov-2024 15:50, No significant change was found Independent Historian Clinical information obtained from an independent historian. History obtained from or confirmed by: Spouse (Patient's provided additional history and confirmed the history provided by the patient. ) Discharge Plan Discharge Clinical Impression: Major depressive disorder, recurrent severe without psychotic features Patient Disposition: Admitted As Inpatient Interventions: [place]-Suicide Risk Severity Scale Last Done: 11/08/24 14:08
[2024-11-08 13:50] LABS: MANUAL DIFF FLAG NO
[2024-11-08 13:52] LABS: Basophils Percent Auto 0.4 % (0-2); Eosinophils Percent Auto 0.4 % (0-4); Hematocrit 46.7 % (37.0-47.0); Hemoglobin 15.6 g/dl (12.0-16.0); Imm Gran Abs Auto 0.02 X10*3/uL (0.00-0.03); Imm Gran Pct Auto 0.3 % (0.0-0.4); Lymphocytes Absolute Auto 1.4 X10*3/uL (1.2-4.9); Lymphocytes Percent Auto 17.7 % (20-40); Mean Corpuscular HGB Conc 33.4 g/dl (31.0-35.0); Mean Corpuscular Volume 92.7 fL (80.0-98.0); Mean Platelet Volume 11.4 fL (9.4-12.3); Monocytes Absolute Auto 0.5 X10*3/uL (0.1-1.2); Neutrophils Absolute Auto 5.8 x10*3/uL (2.0-8.3); Neutrophils Percent Auto 75.2 % (45-73); Platelet Count 174 X10*3/uL (160-400); Red Blood Count 5.04 X10*6/uL (4.20-5.50); Red Cell Distribution Width 13.5 % (11.0-16.0); White Blood Count 7.7 X10*3/uL (4.8-10.8)
--- NOTE | 2024-11-08 13:54 | PC.NURSE ---
PMH: Major depressive disorder, recurrent episode: ? bipolar 2 Unspecified dementia, unspecified severity, without behavioral disturbance, psychotic disturbance, mood disturbance, and anxiety POONAM (generalized anxiety disorder): Akathisia: Drug induced akathisia
--- NOTE | 2024-11-08 13:59 | PC.NURSE ---
Addendum entered by Debora Wright RN 11/08/24 14:01: Patient is a 74 yo female who presents with c/o of insomnia, patient states she needs her medication changed and is supposed to be admitted to . Patient has a long history of major depressive disorder recurrent, dementia and self neglect, unable to take care of herself in the community. Flat affect noted with some rocking back/forth and side to side. Respirations even and non-labored. Food provided. Care team eval pending. Original Note: PMH: Dementia Nocturnal hypoxia Severe recurrent major depression w/psychotic features, mood-congruent Has daytime drowsiness Preoperative examination Elevated glucose Screening for colon cancer Screening for diabetes mellitus Obesity (BMI 30-39.9) Confused but orients easily Depression, major, severe recurrence Abnormal serum protein electrophoresis Mild recurrent major depression Anxiety and depression Encounter for Medicare annual wellness exam Removal of nell Depression with anxiety Abdominal distention Weight gain Major depression, recurrent, full remission POONAM (generalized anxiety disorder) Hypothyroidism Hyperparathyroidism Multinodular thyroid Vitamin D deficiency Osteoporosis
[2024-11-08 14:14] LABS: Acetaminophen LAB < 3 mcg/mL (<30); Salicylate < 5.0 mg/dL (15-30)
[2024-11-08 14:16] LABS: Alanine Aminotransferase 22 U/L (0-31); Albumin Level 4.5 g/dL (3.5-5.0); Alkaline Phosphatase 84 U/L (39-117); Anion Gap 16 (12-20); Aspartate Amino Transferase 27 U/L (5-31); Bilirubin Total 0.6 mg/dL (0.0-1.0); Blood Urea Nitrogen 17 mg/dL (9-16); Calcium 10.1 mg/dL (8.4-10.2); Carbon Dioxide 24 mmol/L (22-29); Chloride 107 mmol/L (96-108); Creatinine Clr Calc Pharmacy 41.7; Estimated Glomerular Filt Rate 58; Ethanol < 10 mg/dL; Glucose Random 111 mg/dL (60-115); Potassium 3.9 mmol/L (3.3-5.1); Sodium 143 mmol/L (135-145)
--- NOTE | 2024-11-08 14:30 | PC.NURSE ---
Care team into evaluate and plan in-patient admission to [facility]
[2024-11-08 16:25] LABS: Appearance Urine Clear; Color Urine Yellow; Glucose Urine UA Negative (Negative); Leukocyte Esterase Urine Trace (Negative); Nitrite Urine Negative (Negative); PH 5.5 (5.0-9.0); Specific Gravity - Urine 1.015 (1.005-1.025); UMIC TRIGGER UA YES; Urine Blood Negative (Negative); Urine Ketones Trace mg/dL (Negative); Urine Protein Negative (Neg-Trace)
[2024-11-08 16:28] LABS: Bacteria Urine None Seen (None Seen); Hyaline Casts Urine 0-2 /LPF (0-2); RBC Urine 0-2 /HPF (0-2); Squamous Epithelial Cell Urine 0-2 /HPF (0-2); WBC Urine 0-5 /HPF (0-5)
[2024-11-08 16:34] LABS: Amphetamine Screen Urine Not Detected (Not Detect); Barbiturates, Urine Not Detected (Not Detect); Benzodiazepines Screen Urine Not Detected (Not Detect); Buprenorphine Scr Not Detected (Not Detect); Cannabinoid Screen Urine Not Detected (Not Detect); Cocaine Screen Urine Not Detected (Not Detect); Fentanyl, urine Not Detected (Not Detect); Methadone Screen, Urine Not Detected (Not Detect); Opiate Screen Urine Not Detected (Not Detect); Oxycodone Screen Urine Not Detected (Not Detect); Phencyclidine Screen Urine Not Detected (Not Detect)
--- OUTSIDE RECORDS SUMMARY | 2024-11-08 17:22 | XMS_ITS | Clinical Summary ---
Author Organization Unknown Care Team Providers Care Ball Machine Operator Name Role Phone TAMEKA RODRIGUEZ, VITALY Unavailable Unavailable USMAN DONOHUE, FABIANO Unavailable Unavailable Payers Payer Name Policy Type Policy Number Effective Date Expira tion Date [employer] S[employer] TO [facility] [employer] - [place] [id number] MEDICAID [facility] [id number] MEDICARE - [facility] [id number] Problems Condition Name Condition Details Condition Category [...] 10 mg tablet 11-19 00:00: 00 Yes [id number] 10 mg BEDTIME 10 mg BEDTIME (route: oral) Med Classific ation: Cognitive Disorder Therapy folic acid 1 mg tablet 11-19 00:00: 00 Yes [id number] 1 mg DAILY 1 mg BECK Y (route: oral) Med Classific ation: Electroly te Balance-N utritiona l Products lorazepam 0.5 mg tablet 11-19 00:00: 00 06-21 23:59 :00 No [id number] 0.5 mg 2 TIMES DAILY 0.5 mg 2 TIMES DAILY (route: oral) Med Classific ation: Central Nervous System Agents melatonin 5 mg capsule 11-19 00:00: 00 07-17 23:59 :00 No [id number] 5 mg BEDTIME 5 mg BEDTIME (route: oral) Med Classific ation: Central Nervous System Agents memantine 10 mg tablet 11-19 00:00: 00 09-27 23:59 :00 No [id number] 10 mg 2 TIMES DAILY 10 mg 2 TIMES DAILY (route: oral) Med Classific ation: Cognitive Disorder Therapy propranolol 10 mg tablet 11-19 00:00: 00 Yes [id number] 10 mg 3 TIMES DAILY 10 mg 3 TIMES DAILY (route: oral) Med Classific ation: Cardiovas cular Therapy Agents quetiapine 25 mg tablet 09-03 00:00: 00 11-19 00:00 :00 No [id number] 25 mg BEDTIME 25 mg BEDTIME (route: oral) Med Classific ation: Central Nervous System Agents quetiapine 25 mg tablet 09-03 00:00: 00 11-19 00:00 :00 No [id number] 25 mg BEDTIME 25 mg BEDTIME (route: oral) Med Classific ation: Central Nervous System Agents thiamine HCl (vitamin B1) 100 mg tablet 11-19 00:00: 00 07-17 23:59 :00 No [id number] 100 mg DAILY 100 mg DAILY (route: oral) Med Classific ation: Electroly te Balance-N utritiona l Products trazodone 50 mg tablet 11-19 00:00: 00 Yes [id number] 50 mg BEDTIME 50 mg BEDTIME (route: oral) Med Classific ation: Central Nervous System Agents Trintellix 20 mg tablet 11-19 00:00: 00 06-21 23:59 :00 No [id number] 20 mg DAILY 20 mg DAILY (route: oral) Med Classific ation: Central Nervous System Agents mirtazapine 15 mg tablet 10-22 00:00: 00 11-19 00:00 :00 No [id number] 1 tablet BEDTIME 1 tablet BEDTIME (route: oral) Med Classific ation: Central Nervous System Agents Rexulti 0.5 mg tablet 10-22 00:00: 00 11-19 00:00 :00 No [id number] 1 tablet DAILY 1 tablet DAILY (route: oral) Med Classific ation: Central Nervous System Agents ibuprofen 200 mg tablet 11-19 00:00: 00 06-21 23:59 :00 No [id number] 1 tablet EVERY 6 HOURS 1 tablet EVERY 6 HOURS (route: oral) Med Classific ation: Analgesic , Anti-infl ammatory or Antipyret ic mirtazapine 30 mg tablet 11-19 00:00: 00 Yes [id number] 1 tablet BEDTIME 1 tablet BEDTIME (route: oral) Med Classific ation: Central Nervous System Agents quetiapine 50 mg tablet 11-19 00:00: 00 06-21 23:59 :00 No [id number] 1 tablet BEDTIME 1 tablet BEDTIME (route: oral) Med Classific ation: Central Nervous System Agents Rexulti 1 mg tablet 11-19 00:00: 00 05-26 23:59 :00 No [id number] 1 tablet EVERY AM 1 tablet EVERY AM (route: oral) Med Classific ation: Central Nervous System Agents Rexulti 1 mg tablet 11-19 00:00: 00 06-21 23:59 :00 No [id number] 0.5 tablet BEDTIME 0.5 tablet BEDTIME (route: oral) Med Classific ation: Central Nervous System Agents atorvastati n 20 mg tablet 06-21 00:00: 00 Yes [id number] 1 tablet BEDTIME 1 tablet BEDTIME (route: oral) Med Classific ation: Cardiovas cular Therapy Agents lorazepam 1 mg tablet 06-21 00:00: 00 07-15 23:59 :00 No [id number] 1 mg BEDTIME 1 mg BEDTIME (route: oral) Med Classific ation: Central Nervous System Agents quetiapine 200 mg tablet 06-21 00:00: 00 07-17 23:59 :00 No [id number] 200 mg BEDTIME 200 mg BEDTIME (route: oral) Med Classific ation: Central Nervous System Agents Trintellix 20 mg tablet 06-21 00:00: 00 07-17 23:59 :00 No [id number] 1 tablet EVERY AM 1 tablet EVERY AM (route: oral) Med Classific ation: Central Nervous System Agents gabapentin 300 mg capsule 1-14 00:00: 00 11-08 23:59 :00 No [id number] 1 capsule BEDTIME 1 capsule BEDTIME (route: oral) Med Classific ation: Central Nervous System Agents ondansetron HCl 4 mg tablet 1-14 00:00: 00 07-17 23:59 :00 No [id number] 1 tablet EVERY 8 HOURS 1 tablet EVERY 8 HOURS (route: oral) Med Classific ation: Gastroint estinal Therapy Agents lorazepam 0.5 mg tablet - 00:00: 00 11-08 23:59 :00 No [id number] 1 tablet 3 TIMES DAILY 1 tablet 3 TIMES DAILY (route: oral) Med Classific ation: Central Nervous System Agents pramipexole 0.25 mg tablet - 00:00: 00 Yes [id number] 1 tablet 3 TIMES DAILY 1 tablet 3 TIMES DAILY (route: oral) Med Classific ation: Central Nervous System Agents quetiapine 25 mg tablet - 00:00: 00 07-26 23:59 :00 No [id number] 1 tablet BEDTIME 1 tablet BEDTIME (route: oral) Med Classific ation: Central Nervous System Agents thiamine HCl (vitamin B1) 100 mg tablet - 00:00: 00 Yes [id number] 1 tablet 2 TIMES DAILY 1 tablet 2 TIMES DAILY (route: oral) Med Classific ation: Electroly te Balance-N utritiona l Products Vraylar 1.5 mg capsule - 00:00: 00 Yes [id number] 1 capsule DAILY 1 capsule DAILY (route: oral) Med Classific ation: Central Nervous System Agents quetiapine 100 mg tablet - 00:00: 00 08-23 23:59 :00 No [id number] 1 tablet BEDTIME 1 tablet BEDTIME (route: oral) Med Classific ation: Central Nervous System Agents Seroquel XR 150 mg tablet,exte nded release 3-18 00:00: 00 11-08 23:59 :00 No [id number] 1 tablet BEDTIME 1 tablet BEDTIME (route: oral) Med Classific ation: Central Nervous System Agents gabapentin 300 mg capsule 22 00:00: 00 11-08 23:59 :00 No [id number] 1 capsule BEDTIME 1 capsule BEDTIME (route: oral) Med Classific ation: Central Nervous System Agents melatonin 5 mg capsule 09-27 00:00: 00 Yes [id number] 1 capsule BEDTIME 1 capsule BEDTIME (route: oral) Med Classific ation: Central Nervous System Agents memantine 10 mg tablet 09-27 00:00: 00 Yes [id number] 1 tablet EVERY AM 1 tablet EVERY AM (route: oral) Med Classific ation: Cognitive Disorder Therapy lorazepam 0.5 mg tablet 11-08 00:00: 00 Yes [id number] 1 tablet EVERY AM 1 tablet EVERY AM (route: oral) Med Classific ation: Central Nervous System Agents lorazepam 0.5 mg tablet 11-08 00:00: 00 Yes [id number] 2 tablet BEDTIME 2 tablet BEDTIME (route: oral) Med Classific ation: [...] UTRITIONA L PRODUCTS VITAMIN B-12 ORAL 2017-06 2- 00:00: 00 06-16 00:00 :00 No 1,000 [...] ation: CENTRAL NERVOUS SYSTEM AGENTS OMEPRAZOLE ORAL 2-08 00:00: 00 07-31 00:00 :00 No 20 [...] ation: CENTRAL NERVOUS SYSTEM AGENTS QUETIAPINE ORAL 9-05 00:00: 03-12 00:00 :00 No 50 mg1 [...] Classific ation: ANORECTAL PREPARATI ONS DOXEPIN ORAL 2017-06-28 00:00: 00 07-04 00:00 :00 No 25 [...] ation: CENTRAL NERVOUS SYSTEM AGENTS ZOLPIDEM ORAL 2018-0 3-11 00:00: 00 09-15 00:00 :00 No 10 mg1 TABLET AT BEDTIME 10 mg1 TABLET AT BEDTIME (route: ) Alternate Route: BY MOUTH . Med Classific ation: CENTRAL NERVOUS SYSTEM AGENTS ZOLPIDEM ORAL 2 00:00: 00 08-15 00:00 :00 No FOR [...] ation: CENTRAL NERVOUS SYSTEM AGENTS MEGESTROL ORAL 08 00:00: 00 07-28 00:00 :00 No 400 [...] CENTRAL NERVOUS SYSTEM AGENTS NORTRIPTYLI NE ORAL 2017-06-12 00:00: 00 06-18 00:00 :00 No 25 [...] Observation Time Observation Value Commen ts Temperature 2024-11-01 09:16:00.000 98.3 [degF] Temperature 2024-10-18 10:13:00.000 97.2 [degF] Temperature 2024-09-27 15:38:00.000 97.7 [degF] Temperature 2024-09-20 08:44:00.000 97.4 [degF] Pulse 2024-11-01 09:16:00.000 91 /min Pulse 2024-10-18 10:13:00.000 91 /min Pulse 2024-09-27 15:38:00.000 83 /min Pulse 2024-09-20 08:44:00.000 93 /min Respirations 2024-11-01 09:16:00.000 16 /min Respirations 2024-10-18 10:13:00.000 16 /min Respirations 2024-09-27 15:38:00.000 18 /min Respirations 2024-09-20 08:44:00.000 18 /min Systolic Blood Pressure 2024-11-01 09:16:00.000 113 mm [Hg] Systolic Blood Pressure 2024-10-18 10:13:00.000 107 mm [Hg] Systolic Blood Pressure 2024-09-27 15:38:00.000 125 mm [Hg] Systolic Blood Pressure 2024-09-20 08:44:00.000 101 mm [Hg] Diastolic Blood Pressure 2024-11-01 09:16:00.000 71 mm [Hg] Diastolic Blood Pressure 2024-10-18 10:13:00.000 [...] AWARENESS FOR SAFETY AND WILL NOTIFY CLINICAL FENCE POST CUTTER AND PHYSICIAN/PROVIDER WITH ANY CHANGE IN CONDITION. [code = SKILLED NURSE WILL MAINTAIN SITUATIONAL AWARENESS FOR SAFETY AND WILL NOTIFY CLINICAL FENCE POST CUTTER AND PHYSICIAN/PROVIDER WITH ANY CHANGE IN CONDITION.] [...] CARE WILL BE ESTABLISHED THAT MEETS PATIENT'S [facility] NEEDS AND INCLUDES PATIENT GOAL FOR HOME [...] End Date/Time Encounter Type Admission Type Attending [facility] Care Department Encounter ID Discharge Date Discharge Status Discharge Condition Discharge Reason Percent Goals Met 2024-09-15 00:00:00 2024-11-13 00:00:00 Outpatient RECERTIFIC FABIANO [facility] [id number] 46.43
--- NOTE | 2024-11-08 19:16 | PC.NURSE ---
Report given to Annel DONOHUE. Patient will transition to [facility].
[2024-11-08 20:00] VITALS: BP 145/85; PULSE 79; RESP 16; TEMP 37.1; O2SAT 99
[2024-11-08] MEDS: LORazepam 1 MG TABLET PO (22:02)
[2024-11-08] MEDS: Melatonin 3 MG TABLET 6 MG PO (22:02)
[2024-11-08] MEDS: Mirtazapine 30 MG TABLET PO (22:03)
[2024-11-08 22:19] VITALS: BMI 28.0
[2024-11-08 22:32] VITALS: BP 149/61; PULSE 63
[2024-11-08] MEDS: Propranolol HCL 10 MG TABLET PO (22:32)
[2024-11-08] MEDS: Thiamine HCL 100 MG TABLET PO (22:32)
[2024-11-08] MEDS: traZODone HCL 100 MG TABLET PO (22:32)
[2024-11-08] MEDS: Donepezil HCl 10 MG TABLET PO (22:32)
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
[2024-11-09 07:54] VITALS: BP 114/63; PULSE 70; RESP 14; TEMP 36.6; O2SAT 96
[2024-11-09] MEDS: Thiamine HCL 100 MG TABLET PO ×2 (08:27→21:08)
[2024-11-09] MEDS: Memantine HCl 10 MG TABLET PO (08:27)
[2024-11-09] MEDS: LORazepam 0.5 MG TABLET PO (08:27)
[2024-11-09] MEDS: Cariprazine HCl 1.5 MG CAPSULE PO (08:28)
[2024-11-09] MEDS: Propranolol HCL 10 MG TABLET PO ×3 (08:28→21:08)
[2024-11-09] MEDS: Folic Acid 1 MG TABLET PO (08:28)
[2024-11-09 08:56] LABS: Estimated Average Glucose 120 mg/dL; Hemoglobin A1c % 5.8 % (<6.0)
[2024-11-09 09:17] LABS: Alanine Aminotransferase 22 U/L (0-31); Anion Gap 15 (12-20); Aspartate Amino Transferase 26 U/L (5-31); Bilirubin Total 0.7 mg/dL (0.0-1.0); Blood Urea Nitrogen 17 mg/dL (9-16); Carbon Dioxide 27 mmol/L (22-29); Chloride 106 mmol/L (96-108); Cholesterol 151 mg/dL (<200); Creatinine Clr Calc Pharmacy 39.4; Estimated Glomerular Filt Rate 56; Glucose Random 93 mg/dL (60-115); HDL Cholesterol 56 mg/dL (>40); LDL Cholesterol Calculated 83 mg/dL (<100); Potassium 4.1 mmol/L (3.3-5.1); Sodium 144 mmol/L (135-145); Total Protein 7.1 g/dL (6.5-8.0); Triglycerides 61 mg/dL (<150)
--- NOTE | 2024-11-09 10:23 | P.HPPS_ITS ---
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 Patient had been going for walks visiting friends and over the past week or so had been having significant insomnia. She does have chronic akathisia/restless leg worsened by Vraylar. She does intermittently develop chronic insomnia which causes more confusion agitation dysphoria. After number of days insomnia not responsive to multiple medication changes including increased Seroquel increase melatonin and unclear if patient was taking medication as prescribed the patient was sent to the emergency room. She did not have UTI or any other obvious trigger patient has had ECT in the past and team months in the past with some benefit. We have tried to avoid ECT most recently secondary to her developing dementia appears to be slowly progressive and patient has been Aricept and Namenda Namenda may have been contributing to insomnia she has been on mirtazapine 30 mg Seroquel at HS Vraylar 1.5 mg in the morning. 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 no classic bipolar symptoms past depressive psychotic episodes not for a number of years Medical Evaluation Reviewed: Yes [facility] Medical History (Updated 11/09/24 @ 23:52 by Broderick Willett MD) Vascular dementia with anxiety Dementia Nocturnal hypoxia Severe recurrent major depression w/psychotic features, mood-congruent Has daytime drowsiness Preoperative examination Elevated glucose Screening for colon cancer Screening for diabetes mellitus Obesity (BMI 30-39.9) Confused but orients easily Depression, major, severe recurrence Abnormal serum protein electrophoresis Mild recurrent major depression Anxiety and depression Encounter for Medicare annual wellness exam Removal of nell Depression with anxiety Abdominal distention Weight gain Major depression, recurrent, full remission POONAM (generalized anxiety disorder) Hypothyroidism Hyperparathyroidism Multinodular thyroid Vitamin D deficiency Osteoporosis Surgical History Hx of colonoscopy Hx of kyphoplasty Hx of section Family History: Depression Social History: Patient disabled has 1 son. Chronic anxiety has stable relationship with her mostly has not worked Substance History: none Trauma History: None noted Diagnostics Vital Signs (24Hr): Vital Signs - 24 hr 11/08/24 13:06 11/08/24 20:00 11/08/24 22:32 Temperature 96.9 F 98.7 F Pulse Rate 92 79 63 Respiratory Rate 16 16 Blood Pressure 144/79 H 145/85 H 149/61 H Pulse Oximetry 99 99 Oxygen Delivery Method Room Air Room Air 11/09/24 07:54 Temperature 97.8 F Pulse Rate 70 Respiratory Rate 14 Blood Pressure 114/63 Pulse Oximetry 96 Oxygen Delivery Method Room Air BMI result Body Mass Index 28.0 Labs 11/08/24 13:33 11/09/24 07:59 Labs: Laboratory Results - last 48 hr 11/08/24 11/08/24 11/09/24 13:33 16:16 07:59 WBC 7.7 RBC 5.04 Hgb 15.6 Hct 46.7 MCV 92.7 MCH 31.0 MCHC 33.4 RDW 13.5 Plt Count 174 D MPV 11.4 Immature Gran % (Auto) 0.3 Neut % (Auto) 75.2 H Lymph % (Auto) 17.7 L [place] % (Auto) 6.0 Eos % (Auto) 0.4 Baso % (Auto) 0.4 Lymph # (Auto) 1.4 [place] # (Auto) 0.5 Eos # (Auto) 0.0 Baso # (Auto) 0.0 Abs Immat Gran (auto) 0.02 Absolute Neuts (auto) 5.8 Absolute Nucleated RBC 0.000 Nucleated RBC % (auto) 0.0 Sodium 143 144 Potassium 3.9 4.1 Chloride 107 106 Carbon Dioxide 24 27 Anion Gap 16 15 BUN 17 H 17 H Creatinine 0.94 0.98 Estim Creat Clear Calc 41.7 39.4 Estimated GFR 58 56 Random Glucose 111 93 Estimat Average Glucose 120 Hemoglobin A1c % 5.8 Calcium 10.1 D 10.0 Total Bilirubin 0.6 0.7 AST 27 26 ALT 22 22 Alkaline Phosphatase 84 Total Protein 8.0 7.1 Albumin 4.5 4.0 Triglycerides 61 Cholesterol 151 LDL Cholesterol, Calc 83 HDL Cholesterol 56 Urine Color Yellow Urine Appearance Clear Urine pH 5.5 Ur Specific Newcomb 1.015 Urine Protein Negative Urine Glucose (UA) Negative Urine Ketones Trace Urine Blood Negative Urine Nitrite Negative Ur Leukocyte Esterase Trace H Urine RBC 0-2 Urine WBC 0-5 Ur Squamous Epith Cells 0-2 Urine Bacteria None Seen Hyaline Casts 0-2 Salicylates < 5.0 L Urine Opiates Screen Not Detected Ur Buprenorphine Scrn Not Detected Ur Oxycodone Screen Not Detected Urine Methadone Screen Not Detected Urine Fentanyl Screen Not Detected Acetaminophen < 3 Ur Barbiturates Screen Not Detected Ur Phencyclidine Scrn Not Detected Ur Amphetamines Screen Not Detected U Benzodiazepines Scrn Not Detected Urine Cocaine Screen Not Detected U Marijuana (THC) Screen Not Detected Ethyl Alcohol < 10 EKG EKG: reviewed EKG Comment: Did have recent palpitation Meds/Allergies Meds Home Medications ?Medication ?Instructions ?Recorded ?Confirmed ?Type atorvastatin 20 mg tablet 20 mg PO BEDTIME 11/08/24 11/08/24 History calcium 500 mg (as 1 tab PO BID 11/08/24 11/08/24 History carbonate)-vitamin D3 5 mcg (200 unit) tablet (Oyster Shell Calcium-Vitamin D3) cariprazine 1.5 mg capsule 1.5 mg PO DAILY 11/08/24 11/08/24 History (Vraylar) folic acid 1 mg tablet 1 mg PO DAILY 11/08/24 11/08/24 History gabapentin 300 mg capsule 300 mg PO BEDTIME 11/08/24 11/08/24 History lorazepam 0.5 mg tablet 0.5 mg PO DAILY anxiety 11/08/24 11/08/24 History lorazepam 0.5 mg tablet 1 mg PO BEDTIME anxiety 11/08/24 11/08/24 History memantine 10 mg tablet 10 mg PO BID 11/08/24 11/08/24 History quetiapine 300 mg tablet 300 mg PO BEDTIME 11/08/24 11/08/24 History Allergies Allergies Allergy/AdvReac Type Severity Reaction Status Date / Time risperidone [From Risperdal] Allergy Intermediate UNKNOWN Verified 11/08/24 13:12 Sulfa (Sulfonamide Allergy Intermediate rash Verified 11/08/24 13:12 Antibiotics) From BENADRYL Allergy Intermediate DIZZY Uncoded 11/08/24 13:12 Mental Status Exam Mental Status Exam Patient Appearance: Disheveled Patient Orientation: Person, Place and Situation Level of Consciousness: Awake Patient Behavior: Passive, Anxious and Fatigued Behavior Comments: Some movement of of her legs much of the time Mood Description: Depressed and Apprehensive Affect Description: Apprehensive Patient Cognition Impaired: Yes Ability to Follow Directions: Fair Speech Pattern: Clear and Impoverished Memory Description: Episodic Impaired and Working Impaired Hallucinations: None Delusions: Not Present Thought Process: Rumination and Slowed Thinking Thought Content: positive for [place], positive for Poverty of Content and positive for Slowed Thinking Depressive Symptoms: Increased Anxiety and Difficulty Sleeping Judgement: Fair Judgement and Insight: Patient cognitively slowed in distress has not slept significantly for a number of days no racing thoughts pressured speech no adam irritability reactivity Assessment & Plan Assessment & Plan (1) Major depressive disorder, recurrent severe without psychotic features: Status: Acute Code(s): F33.2 - Major depressive disorder, recurrent severe without psychotic features (2) POONAM (generalized anxiety disorder): Status: Acute Code(s): F41.1 - Generalized anxiety disorder (3) Vascular dementia with anxiety: Status: Acute Code(s): F01.54 - Vascular dementia, unspecified severity, with anxiety Plan Patient admitted depressed anxious with significant insomnia. Unclear if the patient has been taking medication as prescribed does have VNA we have tried to make some recent changes increase Seroquel at bedtime to not appear to be helpful will lower Namenda lower mirtazapine consider restarting doxepin which had been helpful in the past try and see if any medical issues or contributing factor transfer to Geriatric unit when possible patient admitted on a conditional voluntary Patient educated on: diagnosis and medication risk/benefits Informed Consent: further education needed Reason for continued inpatient stay Substantial Risk for: inability to function, rapid decompensation and med/psych decompensation Statement Statement: I have reviewed the history and physical and performed a pertinent examination on my patient. No changes have occurred unless specified. If the History and Physical was not performed prior to admission, the Hospitalist's service will be consulted for completing the admission physical. This was reviewed at 16:00 Time Spent With Patient Time: Total time managing care of this patient today ____ minutes.
[2024-11-09 13:07] LABS: Alkaline Phosphatase 74 U/L (39-117)
[2024-11-09 15:16] VITALS: BP 116/65; PULSE 79
[2024-11-09 17:10] VITALS: BP 143/81; PULSE 76; RESP 14; TEMP 36.4; O2SAT 97
[2024-11-09 20:00] VITALS: BP 112/65; PULSE 72; RESP 16; TEMP 36.5; O2SAT 99
[2024-11-09] MEDS: Donepezil HCl 10 MG TABLET PO (21:03)
[2024-11-09] MEDS: traZODone HCL 100 MG TABLET PO (21:03)
[2024-11-09] MEDS: Mirtazapine 15 MG TABLET PO (21:04)
[2024-11-09] MEDS: LORazepam 1 MG TABLET PO (21:05)
[2024-11-09 21:08] VITALS: BP 112/65; PULSE 72
[2024-11-09] MEDS: Melatonin 3 MG TABLET 6 MG PO (21:08)
[2024-11-10 07:00] VITALS: BMI 28.0
[2024-11-10 08:00] VITALS: BP 129/62; PULSE 78; RESP 18; TEMP 36.3; O2SAT 97
[2024-11-10] MEDS: Folic Acid 1 MG TABLET PO (08:55)
[2024-11-10] MEDS: LORazepam 0.5 MG TABLET PO (08:55)
[2024-11-10] MEDS: Thiamine HCL 100 MG TABLET PO ×2 (08:55→20:51)
[2024-11-10] MEDS: Cariprazine HCl 1.5 MG CAPSULE PO (08:55)
[2024-11-10] MEDS: Propranolol HCL 10 MG TABLET PO ×2 (08:55→15:54)
[2024-11-10] MEDS: Memantine HCl 10 MG TABLET PO (08:56)
[2024-11-10] MEDS: Pramipexole Di-HCL 0.25 MG TABLET PO ×2 (08:56→15:54)
[2024-11-10 15:54] VITALS: BP 140/81; PULSE 76
--- NOTE | 2024-11-10 18:38 | PC.ADMIT ---
Patient arrived in w/c from [facility] accompanied by Michelle DONOHUE at 13:20. She has Dx of Dementia, Anxiety, Depression, Insomnia. Resides with her with whom she has a stable relationship. Her drove her to ER at [facility] after talking to her medical provider. Judy stated she couldn't sleep for days while at home and her depression was getting worse. Upon arrival Judy appears flat, reports being tired. VS: 97.8, 69, 119/70, O2sat 93% on RA. Denies pain. Skin check completed and wnl. Oriented to her room and surrounding. On a Conditional Voluntary Basis.
[2024-11-10] MEDS: Donepezil HCl 10 MG TABLET PO (20:47)
[2024-11-10] MEDS: Melatonin 3 MG TABLET 6 MG PO (20:49)
[2024-11-10] MEDS: LORazepam 1 MG TABLET PO (20:49)
[2024-11-10] MEDS: Gabapentin 300 MG CAPSULE 600 MG PO (20:49)
[2024-11-10] MEDS: Pramipexole Di-HCL 0.125 MG TABLET 0.375 MG PO (20:50)
[2024-11-10] MEDS: Mirtazapine 15 MG TABLET PO (20:50)
--- NOTE | 2024-11-10 23:21 | P.PNPSI_ITS ---
Subjective Subjective Date of Service: 11/10/24 Reason For Visit: crisis Guardianship: No Medical Problems Affecting Mental Status: Yes Interim History: dementia history Medication Compliance: Intermittent Side effects from medications: Yes Attending Groups: No Mental Status Exam Mental Status Exam Patient Appearance: Unkempt Patient Orientation: Person, Place and Situation Level of Consciousness: Awake Patient Behavior: Restless, Anxious and Fatigued Behavior Comments: Some movement of of her legs much of the time rocking Mood Description: Depressed and Apprehensive Affect Description: Apprehensive Patient Cognition Impaired: Yes Ability to Follow Directions: Fair Speech Pattern: Clear and Impoverished Memory Description: Episodic Impaired and Working Impaired Hallucinations: None Delusions: Not Present Thought Process: Rumination and Slowed Thinking Thought Content: positive for [place], positive for Poverty of Content and positive for Slowed Thinking Depressive Symptoms: Increased Anxiety and Difficulty Sleeping Judgement: Fair Judgement and Insight: Patient cognitively slowed in distress has not slept significantly for a number of days no racing thoughts pressured speech no adam irritability reactivity ruminating poor sleep rocking Diagnostics Vital Signs (24Hr): Vital Signs - 24 hr 11/10/24 08:00 11/10/24 15:54 Temperature 97.3 F Pulse Rate 78 76 Respiratory Rate 18 Blood Pressure 129/62 140/81 H Pulse Oximetry 97 Oxygen Delivery Method Room Air BMI result Body Mass Index 28.0 Labs 11/08/24 13:33 11/09/24 07:59 Labs: Laboratory Results - last 48 hr 11/09/24 07:59 Sodium 144 Potassium 4.1 Chloride 106 Carbon Dioxide 27 Anion Gap 15 BUN 17 H Creatinine 0.98 Estim Creat Clear Calc 39.4 Estimated GFR 56 Random Glucose 93 Estimat Average Glucose 120 Hemoglobin A1c % 5.8 Calcium 10.0 Total Bilirubin 0.7 AST 26 ALT 22 Alkaline Phosphatase 74 Total Protein 7.1 Albumin 4.0 Triglycerides 61 Cholesterol 151 LDL Cholesterol, Calc 83 HDL Cholesterol 56 Medications Medications Current Medications Acetaminophen (Acetaminophen 325 Mg Tablet) 650 mg PO Q6H PRN PRN Reason: Headache/Pain, Scale 1-10 Al Hydroxide/Mg Hydroxide (Magnesium Hydrox/Alum Hydrox 30 Ml Oral.Susp) 30 ml PO Q6H PRN PRN Reason: Heartburn/Nausea Calcium Carbonate (Calcium Oyster Shell Elemental 500 Mg Tablet) 500 mg PO BID BARRY Last Admin: 11/10/24 20:47 Dose: Not Given Cariprazine (Cariprazine Hcl 1.5 Mg Capsule) 1.5 mg PO DAILY [facility] Last Admin: 11/10/24 08:55 Dose: 1.5 mg Donepezil HCl (Donepezil Hcl 10 Mg Tablet) 10 mg PO BEDTIME [facility] Last Admin: 11/10/24 20:47 Dose: 10 mg Folic Acid (Folic Acid 1 Mg Tablet) 1 mg PO DAILY [facility] Last Admin: 11/10/24 08:55 Dose: 1 mg Gabapentin (Gabapentin 300 Mg Capsule) 600 mg PO BEDTIME BARRY Last Admin: 11/10/24 20:49 Dose: 600 mg Hydroxyzine HCl (Hydroxyzine Hcl 25 Mg Tablet) 25 mg PO Q6H PRN PRN Reason: mild anxiety Lorazepam (Lorazepam 1 Mg Tablet) 1 mg PO BEDTIME [facility] Last Admin: 11/10/24 20:49 Dose: 1 mg Lorazepam (Lorazepam 0.5 Mg Tablet) 0.5 mg PO DAILY [facility] Last Admin: 11/10/24 08:55 Dose: 0.5 mg Magnesium Hydroxide (Milk Of Magnesia 30 Ml Oral.Susp) 30 ml PO DAILY PRN PRN Reason: Constipation Melatonin (Melatonin 3 Mg Tablet) 6 mg PO BEDTIME [facility] Last Admin: 11/10/24 20:49 Dose: 6 mg Memantine (Memantine Hcl 10 Mg Tablet) 10 mg PO DAILY [facility] Last Admin: 11/10/24 08:56 Dose: 10 mg Mirtazapine (Mirtazapine 15 Mg Tablet) 15 mg PO BEDTIME [facility] Last Admin: 11/10/24 20:50 Dose: 15 mg Pramipexole Dihydrochloride (Pramipexole Di-Hcl 0.125 Mg Tablet) 0.375 mg PO TID [facility] Last Admin: 11/10/24 20:50 Dose: 0.375 mg Propranolol HCl (Propranolol Hcl 20 Mg Tablet) 20 mg PO TID [facility]; Protocol Quetiapine Fumarate (Quetiapine Fumarate 25 Mg Tablet) 25 mg PO DAILY PRN PRN Reason: for anxiety Quetiapine Fumarate (Quetiapine Fumarate 100 Mg Tablet) 100 mg PO BEDTIME [facility] Last Admin: 11/10/24 20:51 Dose: Not Given Thiamine HCl (Thiamine Hcl 100 Mg Tablet) 100 mg PO BID [facility] Last Admin: 11/10/24 20:51 Dose: 100 mg Allergies Allergies Allergy/AdvReac Type Severity Reaction Status Date / Time risperidone [From Risperdal] Allergy Intermediate UNKNOWN Verified 11/08/24 13:12 Sulfa (Sulfonamide Allergy Intermediate rash Verified 11/08/24 13:12 Antibiotics) From BENADRYL Allergy Intermediate DIZZY Uncoded 11/08/24 13:12 Assessment & Plan Assessment & Plan (1) Major depressive disorder, recurrent severe without psychotic features: Status: Acute Code(s): F33.2 - Major depressive disorder, recurrent severe without psychotic features (2) POONAM (generalized anxiety disorder): Status: Acute Code(s): F41.1 - Generalized anxiety disorder (3) Vascular dementia with anxiety: Status: Acute Code(s): F01.54 - Vascular dementia, unspecified severity, with anxiety Plan Patient admitted depressed anxious with significant insomnia. Unclear if the patient has been taking medication as prescribed does have VNA we have tried to make some recent changes increase Seroquel at bedtime to not appear to be helpful will lower Namenda lower mirtazapine consider restarting doxepin which had been helpful in the past try and see if any medical issues or contributing factor transfer to Geriatric unit when possible patient admitted on a conditional voluntary 11/10/24 Pt depressed irritable hopeless helpless insomnia restless leg / akathesia / TD lower namenda lower seroquel ua neg has cycled down Patient educated on: diagnosis and medication risk/benefits Informed Consent: further education needed Reason for continued inpatient stay Substantial Risk for: inability to function, rapid decompensation and med/psych decompensation Time Spent With Patient Time: Total time managing care of this patient today ____ minutes.
[2024-11-10 23:29] VITALS: BP 109/58; PULSE 78; RESP 18; TEMP 36.4; O2SAT 93
[2024-11-11 08:00] VITALS: BP 114/79; PULSE 87; RESP 18; TEMP 36.4; O2SAT 95
[2024-11-11] MEDS: Cariprazine HCl 1.5 MG CAPSULE PO (08:41)
[2024-11-11 08:42] VITALS: BP 114/79; PULSE 87
[2024-11-11] MEDS: Thiamine HCL 100 MG TABLET PO ×2 (08:42→20:23)
[2024-11-11] MEDS: Propranolol HCL 20 MG TABLET PO ×3 (08:42→20:22)
[2024-11-11] MEDS: LORazepam 0.5 MG TABLET PO (08:42)
[2024-11-11] MEDS: Folic Acid 1 MG TABLET PO (08:42)
[2024-11-11] MEDS: Memantine HCl 10 MG TABLET PO (08:43)
[2024-11-11] MEDS: Pramipexole Di-HCL 0.125 MG TABLET 0.375 MG PO ×3 (08:43→20:22)
--- NOTE | 2024-11-11 11:51 | HO.PM.IMCN ---
History of Present Illness Data of Consult Service Date: 11/11/24 Primary Care Provider: Liss Holland NP HPI Reason for consult: Medical evaluation 74-year-old female with a past medical history of vascular dementia with anxiety, major depressive disorder, hypothyroidism, osteoporosis and history of lumbar spondylosis. She presented to the ED with increased anxiety requesting inpatient psychiatric care. She was admitted here on the geripsych unit for further evaluation and treatment. On exam she is awake and alert, she denies any shortness of breath, chest pain, dizziness or any other concerning symptoms. In the ED she was medically cleared, UA was negative, blood work was unremarkable, EKG was within normal limits. Review of her vitals indicates that her blood pressure is well controlled. Her A1c is noted to be 5.8 she is prediabetic range, recommend monitoring every 6 months, no other abnormalities noted. Review of Systems Review of Systems: Denies any shortness of breath, chest pain, dizziness, lightheadedness, abdominal pain or discomfort, nausea vomiting or diarrhea. She reports feeling tired and wants to nap PMFSH Medical History (Updated 11/09/24 @ 23:52 by Broderick Willett MD) Vascular dementia with anxiety Dementia Nocturnal hypoxia Severe recurrent major depression w/psychotic features, mood-congruent Has daytime drowsiness Preoperative examination Elevated glucose Screening for colon cancer Screening for diabetes mellitus Obesity (BMI 30-39.9) Confused but orients easily Depression, major, severe recurrence Abnormal serum protein electrophoresis Mild recurrent major depression Anxiety and depression Encounter for Medicare annual wellness exam Removal of nell Depression with anxiety Abdominal distention Weight gain Major depression, recurrent, full remission POONAM (generalized anxiety disorder) Hypothyroidism Hyperparathyroidism Multinodular thyroid Vitamin D deficiency Osteoporosis Family History Father Myocardial infarction CVD (cardiovascular disease) Mother Dementia Alzheimer disease Other Mental health disorder Surgical History Hx of colonoscopy Hx of kyphoplasty Hx of section Social History Household Members: Spouse Housing: House Do you presently have visiting nurse or other home services: Yes (Visiting nurse to fill medications) Alcohol intake: never Comment: 1:1 sitter at bedside Patient Tobacco Use Status: Never used Tobacco Smoked in Last 30 Days: No e-Cigarette/Vaping Use: Never Used Second Hand Smoke Exposure: No Currently Displaying Signs/Symptoms of Drug Intoxication Withdrawal: No Have you been hit, kicked, punched, or otherwise hurt by someone within the past year? If so, by whom?: No Do you feel safe in your current relationship?: Yes Is there a partner from a previous relationship who is making you feel unsafe now?: No Are you made to feel afraid or neglected: No Advance Directives: Yes Advance Directives on File: Yes Advance Directives Date on File: 09/04/23 Do you have thoughts of harming others: None Do you have a plan to hurt others: No Plan Recently lost weight without trying: No How much weight loss: Not applicable Eating poorly because of decreased appetite: No Nutrition screen score: 0 Nutrition Risks: No Nutritional Risk Patient : No : No Poor oral hygiene: No service: No Current occupational status: unemployed Sexual orientation: Straight/Heterosexual Cognitive needs: No Hearing needs: No Meds Allergies Allergy/AdvReac Type Severity Reaction Status Date / Time risperidone [From Risperdal] Allergy Intermediate UNKNOWN Verified 11/08/24 13:12 Sulfa (Sulfonamide Allergy Intermediate rash Verified 11/08/24 13:12 Antibiotics) From BENADRYL Allergy Intermediate DIZZY Uncoded 11/08/24 13:12 Active Medications: Current Medications Acetaminophen (Acetaminophen 325 Mg Tablet) 650 mg PO Q6H PRN PRN Reason: Headache/Pain, Scale 1-10 Al Hydroxide/Mg Hydroxide (Magnesium Hydrox/Alum Hydrox 30 Ml Oral.Susp) 30 ml PO Q6H PRN PRN Reason: Heartburn/Nausea Calcium Carbonate (Calcium Oyster Shell Elemental 500 Mg Tablet) 500 mg PO BID [facility] Last Admin: 11/11/24 08:45 Dose: Not Given Cariprazine (Cariprazine Hcl 1.5 Mg Capsule) 1.5 mg PO DAILY [facility] Last Admin: 11/11/24 08:41 Dose: 1.5 mg Donepezil HCl (Donepezil Hcl 10 Mg Tablet) 10 mg PO BEDTIME [facility] Last Admin: 11/10/24 20:47 Dose: 10 mg Folic Acid (Folic Acid 1 Mg Tablet) 1 mg PO DAILY [facility] Last Admin: 11/11/24 08:42 Dose: 1 mg Gabapentin (Gabapentin 300 Mg Capsule) 600 mg PO BEDTIME [facility] Last Admin: 11/10/24 20:49 Dose: 600 mg Hydroxyzine HCl (Hydroxyzine Hcl 25 Mg Tablet) 25 mg PO Q6H PRN PRN Reason: mild anxiety Lorazepam (Lorazepam 1 Mg Tablet) 1 mg PO BEDTIME [facility] Last Admin: 11/10/24 20:49 Dose: 1 mg Lorazepam (Lorazepam 0.5 Mg Tablet) 0.5 mg PO DAILY [facility] Last Admin: 11/11/24 08:42 Dose: 0.5 mg Magnesium Hydroxide (Milk Of Magnesia 30 Ml Oral.Susp) 30 ml PO DAILY PRN PRN Reason: Constipation Melatonin (Melatonin 3 Mg Tablet) 6 mg PO BEDTIME [facility] Last Admin: 11/10/24 20:49 Dose: 6 mg Memantine (Memantine Hcl 10 Mg Tablet) 10 mg PO DAILY [facility] Last Admin: 11/11/24 08:43 Dose: 10 mg Mirtazapine (Mirtazapine 15 Mg Tablet) 15 mg PO BEDTIME [facility] Last Admin: 11/10/24 20:50 Dose: 15 mg Pramipexole Dihydrochloride (Pramipexole Di-Hcl 0.125 Mg Tablet) 0.375 mg PO TID [facility] Last Admin: 11/11/24 08:43 Dose: 0.375 mg Propranolol HCl (Propranolol Hcl 20 Mg Tablet) 20 mg PO TID [facility]; Protocol Last Admin: 11/11/24 08:42 Dose: 20 mg Quetiapine Fumarate (Quetiapine Fumarate 25 Mg Tablet) 25 mg PO DAILY PRN PRN Reason: for anxiety Quetiapine Fumarate (Quetiapine Fumarate 100 Mg Tablet) 100 mg PO BEDTIME [facility] Last Admin: 11/10/24 20:51 Dose: Not Given Thiamine HCl (Thiamine Hcl 100 Mg Tablet) 100 mg PO BID [facility] Last Admin: 11/11/24 08:42 Dose: 100 mg Home Medications ?Medication ?Instructions ?Recorded ?Confirmed ?Last Taken ?Type atorvastatin 20 mg tablet 20 mg PO BEDTIME 11/08/24 11/08/24 Unknown History calcium 500 mg (as 1 tab PO BID 11/08/24 11/08/24 Unknown History carbonate)-vitamin D3 5 mcg (200 unit) tablet (Oyster Shell Calcium-Vitamin D3) cariprazine 1.5 mg capsule 1.5 mg PO DAILY 11/08/24 11/08/24 Unknown History (Vraylar) folic acid 1 mg tablet 1 mg PO DAILY 11/08/24 11/08/24 Unknown History gabapentin 300 mg capsule 300 mg PO BEDTIME 11/08/24 11/08/24 Unknown History lorazepam 0.5 mg tablet 0.5 mg PO DAILY anxiety 11/08/24 11/08/24 Unknown History lorazepam 0.5 mg tablet 1 mg PO BEDTIME anxiety 11/08/24 11/08/24 Unknown History memantine 10 mg tablet 10 mg PO BID 11/08/24 11/08/24 Unknown History quetiapine 300 mg tablet 300 mg PO BEDTIME 11/08/24 11/08/24 Unknown History Physical Exam Vital Signs and Narrative: Vital Signs: Last Vital Signs Temp 97.5 F 11/11/24 08:00 Pulse 87 11/11/24 08:42 Resp 18 11/11/24 08:00 BP 114/79 11/11/24 08:42 Pulse Ox 95 11/11/24 08:00 O2 Del Method Room Air 11/11/24 08:00 BMI result Body Mass Index 28.0 CONST: Alert in NAD. Well nourished, quiet and cooperative HEENT: Normocephalic, atraumatic, MMM, Eyes clear, Neck supple RESP: Lungs clear, RRR even and regular HEART:,RRR, S1, S2. No murmur, no edema GI:Abdomen Soft NT, ND. + BS times four :Deferred SKIN: Warm dry and intact, no visible lesions or rashes NEURO:CN II-XII Intact bilaterally, Sensation intact. Speech clear Results Labs 11/08/24 13:33 11/09/24 07:59 Assessment and Plan (1) Vascular dementia with anxiety: Status: Acute Plan Major depressive disorder/anxiety/dementia Continue with treatment per psychiatric team. Lumbar spondylosis, osteoarthritis Treatment with pramipexole t.i.d. Calcium carbonate b.i.d. Gabapentin 600 at bedtime for pain control Tylenol as needed History of hyperlipidemia Not on medications at this point, her recent blood work indicates values within normal limits Follow up with PCP History of hypothyroidism Not on medication at this point Recent TSH 2.18. Free T4 0.93 Thank you for allowing me to participate in the care of this patient. We will follow as needed, Please reconsult of any acute complaints or issues arise
[2024-11-11 15:02] VITALS: BP 110/59; PULSE 70
[2024-11-11 20:00] VITALS: BP 123/73; PULSE 81; RESP 16; TEMP 36.8; O2SAT 94
[2024-11-11] MEDS: Donepezil HCl 10 MG TABLET PO (20:21)
[2024-11-11] MEDS: LORazepam 1 MG TABLET PO (20:21)
[2024-11-11] MEDS: Gabapentin 300 MG CAPSULE 600 MG PO (20:21)
[2024-11-11] MEDS: Melatonin 3 MG TABLET 6 MG PO (20:22)
[2024-11-11] MEDS: Mirtazapine 15 MG TABLET PO (20:22)
--- NOTE | 2024-11-11 22:22 | HO.PSYCHPN ---
Subjective Subjective Date of Service: 11/11/24 Reason For Visit: crisis Subjective Notes: Conditional Voluntary Interim History: Patient seen psychiatric follow-up. Patient's mood anxious dysphoric but improved from the day before. Seems better with higher dopamine agonist and decrease Namenda Patient cooperative sleep was somewhat improved ambulating Mental Status Exam Mental Status Exam Patient Appearance: Unkempt Patient Orientation: Person, Place and Situation Level of Consciousness: Awake Patient Behavior: Restless, Anxious and Fatigued Behavior Comments: Some movement of of her legs much of the time rocking Mood Description: Depressed and Apprehensive Affect Description: Apprehensive Patient Cognition Impaired: Yes Ability to Follow Directions: Fair Speech Pattern: Clear and Impoverished Memory Description: Episodic Impaired and Working Impaired Hallucinations: None Delusions: Not Present Thought Process: Rumination and Slowed Thinking Thought Content: positive for [place], positive for Poverty of Content and positive for Slowed Thinking Depressive Symptoms: Increased Anxiety and Difficulty Sleeping Judgement: Fair Judgement and Insight: Patient cognitively slowed in distress has not slept significantly for a number of days no racing thoughts pressured speech no adam irritability reactivity ruminating poor sleep rocking Diagnostics Vital Signs (24Hr): Vital Signs - 24 hr 11/10/24 23:29 11/11/24 08:00 11/11/24 08:42 Temperature 97.5 F 97.5 F Pulse Rate 78 87 87 Respiratory Rate 18 18 Blood Pressure 109/58 L 114/79 114/79 Pulse Oximetry 93 95 Oxygen Delivery Method Room Air Room Air 11/11/24 15:02 Temperature Pulse Rate 70 Respiratory Rate Blood Pressure 110/59 L Pulse Oximetry Oxygen Delivery Method BMI result Body Mass Index 28.0 Labs 11/08/24 13:33 11/09/24 07:59 Medications Medications Current Medications Acetaminophen (Acetaminophen 325 Mg Tablet) 650 mg PO Q6H PRN PRN Reason: Headache/Pain, Scale 1-10 Al Hydroxide/Mg Hydroxide (Magnesium Hydrox/Alum Hydrox 30 Ml Oral.Susp) 30 ml PO Q6H PRN PRN Reason: Heartburn/Nausea Calcium Carbonate (Calcium Oyster Shell Elemental 500 Mg Tablet) 500 mg PO BID [facility] Last Admin: 11/11/24 20:21 Dose: Not Given Cariprazine (Cariprazine Hcl 1.5 Mg Capsule) 1.5 mg PO DAILY [facility] Last Admin: 11/11/24 08:41 Dose: 1.5 mg Donepezil HCl (Donepezil Hcl 10 Mg Tablet) 10 mg PO BEDTIME [facility] Last Admin: 11/11/24 20:21 Dose: 10 mg Folic Acid (Folic Acid 1 Mg Tablet) 1 mg PO DAILY [facility] Last Admin: 11/11/24 08:42 Dose: 1 mg Gabapentin (Gabapentin 300 Mg Capsule) 600 mg PO BEDTIME [facility] Last Admin: 11/11/24 20:21 Dose: 600 mg Hydroxyzine HCl (Hydroxyzine Hcl 25 Mg Tablet) 25 mg PO Q6H PRN PRN Reason: mild anxiety Lorazepam (Lorazepam 1 Mg Tablet) 1 mg PO BEDTIME [facility] Last Admin: 11/11/24 20:21 Dose: 1 mg Lorazepam (Lorazepam 0.5 Mg Tablet) 0.5 mg PO DAILY [facility] Last Admin: 11/11/24 08:42 Dose: 0.5 mg Magnesium Hydroxide (Milk Of Magnesia 30 Ml Oral.Susp) 30 ml PO DAILY PRN PRN Reason: Constipation Melatonin (Melatonin 3 Mg Tablet) 6 mg PO BEDTIME [facility] Last Admin: 11/11/24 20:22 Dose: 6 mg Memantine (Memantine Hcl 10 Mg Tablet) 10 mg PO DAILY [facility] Last Admin: 11/11/24 08:43 Dose: 10 mg Mirtazapine (Mirtazapine 15 Mg Tablet) 15 mg PO BEDTIME [facility] Last Admin: 11/11/24 20:22 Dose: 15 mg Pramipexole Dihydrochloride (Pramipexole Di-Hcl 0.125 Mg Tablet) 0.375 mg PO TID [facility] Last Admin: 11/11/24 20:22 Dose: 0.375 mg Propranolol HCl (Propranolol Hcl 20 Mg Tablet) 20 mg PO TID [facility]; Protocol Last Admin: 11/11/24 20:22 Dose: 20 mg Quetiapine Fumarate (Quetiapine Fumarate 25 Mg Tablet) 25 mg PO DAILY PRN PRN Reason: for anxiety Quetiapine Fumarate (Quetiapine Fumarate 100 Mg Tablet) 100 mg PO BEDTIME [facility] Last Admin: 11/11/24 20:23 Dose: Not Given Thiamine HCl (Thiamine Hcl 100 Mg Tablet) 100 mg PO BID [facility] Last Admin: 11/11/24 20:23 Dose: 100 mg Allergies Allergies Allergy/AdvReac Type Severity Reaction Status Date / Time risperidone [From Risperdal] Allergy Intermediate UNKNOWN Verified 11/08/24 13:12 Sulfa (Sulfonamide Allergy Intermediate rash Verified 11/08/24 13:12 Antibiotics) From BENADRYL Allergy Intermediate DIZZY Uncoded 11/08/24 13:12 Assessment & Plan Assessment & Plan (1) Vascular dementia with anxiety: Status: Acute Code(s): F01.54 - Vascular dementia, unspecified severity, with anxiety (2) Major depressive disorder, recurrent severe without psychotic features: Status: Acute Code(s): F33.2 - Major depressive disorder, recurrent severe without psychotic features (3) POONAM (generalized anxiety disorder): Status: Acute Code(s): F41.1 - Generalized anxiety disorder Plan Major depressive disorder/anxiety/dementia Continue with treatment per psychiatric team. Lumbar spondylosis, osteoarthritis Treatment with pramipexole t.i.d. Calcium carbonate b.i.d. Gabapentin 600 at bedtime for pain control Tylenol as needed History of hyperlipidemia Not on medications at this point, her recent blood work indicates values within normal limits Follow up with PCP History of hypothyroidism Not on medication at this point Recent TSH 2.18. Free T4 0.93 Thank you for allowing me to participate in the care of this patient. We will follow as needed, Please reconsult of any acute complaints or issues arise 11/11/2024 Continue lower dose mirtazapine gabapentin Seroquel tapered Vraylar 1.5 mg. Patient less depressed less anxious and agitated. Restlessness improved as combination of akathisia question restless leg question tardive dyskinesia. Dopamine agonist increased monitor mood monitor confusion Reason for continued inpatient stay Substantial Risk for: inability to function, rapid decompensation and med/psych decompensation Time Spent With Patient Time: Total time managing care of this patient today ____ minutes.
[2024-11-12 08:00] VITALS: BP 98/69; PULSE 79; RESP 16; TEMP 35.9; O2SAT 96
[2024-11-12] MEDS: Pramipexole Di-HCL 0.125 MG TABLET 0.375 MG PO ×3 (08:39→20:49)
[2024-11-12] MEDS: Thiamine HCL 100 MG TABLET PO ×2 (08:40→20:50)
[2024-11-12] MEDS: Folic Acid 1 MG TABLET PO (08:40)
[2024-11-12] MEDS: LORazepam 0.5 MG TABLET PO (08:40)
[2024-11-12] MEDS: Propranolol HCL 20 MG TABLET PO ×3 (08:41→20:50)
[2024-11-12] MEDS: Cariprazine HCl 1.5 MG CAPSULE PO (08:41)
[2024-11-12] MEDS: Memantine HCl 10 MG TABLET PO (08:41)
[2024-11-12 15:12] VITALS: BP 117/65
[2024-11-12 20:00] VITALS: BP 131/67; PULSE 75; RESP 18; TEMP 36.6; O2SAT 97
[2024-11-12] MEDS: Donepezil HCl 10 MG TABLET PO (20:48)
[2024-11-12] MEDS: Gabapentin 300 MG CAPSULE 600 MG PO (20:49)
[2024-11-12] MEDS: Melatonin 3 MG TABLET 6 MG PO (20:49)
[2024-11-12] MEDS: LORazepam 1 MG TABLET PO (20:49)
[2024-11-12] MEDS: Mirtazapine 15 MG TABLET PO (20:49)
--- NOTE | 2024-11-12 21:00 | HO.PSYCHPN ---
Subjective Subjective Date of Service: 11/12/24 Reason For Visit: crisis Subjective Notes: Conditional Voluntary Interim History: Patient seen in psychiatric follow-up patient depressed complaints of insomnia difficulty with akathisia versus tardive dyskinesia Patient alert isolated much of the time Mental Status Exam Mental Status Exam Patient Appearance: Unkempt Patient Orientation: Person, Place and Situation Level of Consciousness: Awake Patient Behavior: Restless, Anxious and Fatigued Behavior Comments: Some movement of of her legs much of the time rocking Mood Description: Depressed and Apprehensive Affect Description: Apprehensive Patient Cognition Impaired: Yes Ability to Follow Directions: Fair Speech Pattern: Clear and Impoverished Memory Description: Episodic Impaired and Working Impaired Diagnostics Vital Signs (24Hr): Vital Signs - 24 hr 11/12/24 08:00 11/12/24 15:12 Temperature 96.6 F L Pulse Rate 79 Respiratory Rate 16 Blood Pressure 98/69 117/65 Pulse Oximetry 96 Oxygen Delivery Method Room Air BMI result Body Mass Index 28.0 Labs 11/08/24 13:33 11/09/24 07:59 Medications Medications Current Medications Acetaminophen (Acetaminophen 325 Mg Tablet) 650 mg PO Q6H PRN PRN Reason: Headache/Pain, Scale 1-10 Al Hydroxide/Mg Hydroxide (Magnesium Hydrox/Alum Hydrox 30 Ml Oral.Susp) 30 ml PO Q6H PRN PRN Reason: Heartburn/Nausea Calcium Carbonate (Calcium Oyster Shell Elemental 500 Mg Tablet) 500 mg PO BID [facility] Last Admin: 11/12/24 20:48 Dose: Not Given Cariprazine (Cariprazine Hcl 1.5 Mg Capsule) 1.5 mg PO DAILY [facility] Last Admin: 11/12/24 08:41 Dose: 1.5 mg Donepezil HCl (Donepezil Hcl 10 Mg Tablet) 10 mg PO BEDTIME [facility] Last Admin: 11/12/24 20:48 Dose: 10 mg Folic Acid (Folic Acid 1 Mg Tablet) 1 mg PO DAILY [facility] Last Admin: 11/12/24 08:40 Dose: 1 mg Gabapentin (Gabapentin 300 Mg Capsule) 600 mg PO BEDTIME [facility] Last Admin: 11/12/24 20:49 Dose: 600 mg Hydroxyzine HCl (Hydroxyzine Hcl 25 Mg Tablet) 25 mg PO Q6H PRN PRN Reason: mild anxiety Lorazepam (Lorazepam 1 Mg Tablet) 1 mg PO BEDTIME [facility] Last Admin: 11/12/24 20:49 Dose: 1 mg Lorazepam (Lorazepam 0.5 Mg Tablet) 0.5 mg PO DAILY [facility] Last Admin: 11/12/24 08:40 Dose: 0.5 mg Magnesium Hydroxide (Milk Of Magnesia 30 Ml Oral.Susp) 30 ml PO DAILY PRN PRN Reason: Constipation Melatonin (Melatonin 3 Mg Tablet) 6 mg PO BEDTIME [facility] Last Admin: 11/12/24 20:49 Dose: 6 mg Memantine (Memantine Hcl 10 Mg Tablet) 10 mg PO DAILY [facility] Last Admin: 11/12/24 08:41 Dose: 10 mg Mirtazapine (Mirtazapine 15 Mg Tablet) 15 mg PO BEDTIME [facility] Last Admin: 11/12/24 20:49 Dose: 15 mg Pramipexole Dihydrochloride (Pramipexole Di-Hcl 0.125 Mg Tablet) 0.375 mg PO TID [facility] Last Admin: 11/12/24 20:49 Dose: 0.375 mg Propranolol HCl (Propranolol Hcl 20 Mg Tablet) 20 mg PO TID [facility]; Protocol Last Admin: 11/12/24 20:50 Dose: 20 mg Quetiapine Fumarate (Quetiapine Fumarate 25 Mg Tablet) 25 mg PO DAILY PRN PRN Reason: for anxiety Quetiapine Fumarate (Quetiapine Fumarate 100 Mg Tablet) 100 mg PO BEDTIME [facility] Last Admin: 11/11/24 20:23 Dose: Not Given Thiamine HCl (Thiamine Hcl 100 Mg Tablet) 100 mg PO BID [facility] Last Admin: 11/12/24 20:50 Dose: 100 mg Allergies Allergies Allergy/AdvReac Type Severity Reaction Status Date / Time risperidone [From Risperdal] Allergy Intermediate UNKNOWN Verified 11/08/24 13:12 Sulfa (Sulfonamide Allergy Intermediate rash Verified 11/08/24 13:12 Antibiotics) From BENADRYL Allergy Intermediate DIZZY Uncoded 11/08/24 13:12 Assessment & Plan Assessment & Plan (1) Vascular dementia with anxiety: Status: Acute Code(s): F01.54 - Vascular dementia, unspecified severity, with anxiety (2) Major depressive disorder, recurrent severe without psychotic features: Status: Acute Code(s): F33.2 - Major depressive disorder, recurrent severe without psychotic features (3) POONAM (generalized anxiety disorder): Status: Acute Code(s): F41.1 - Generalized anxiety disorder Plan Major depressive disorder/anxiety/dementia Continue with treatment per psychiatric team. Lumbar spondylosis, osteoarthritis Treatment with pramipexole t.i.d. Calcium carbonate b.i.d. Gabapentin 600 at bedtime for pain control Tylenol as needed History of hyperlipidemia Not on medications at this point, her recent blood work indicates values within normal limits Follow up with PCP History of hypothyroidism Not on medication at this point Recent TSH 2.18. Free T4 0.93 Thank you for allowing me to participate in the care of this patient. We will follow as needed, Please reconsult of any acute complaints or issues arise 11/11/2024 Continue lower dose mirtazapine gabapentin Seroquel tapered Vraylar 1.5 mg. Patient less depressed less anxious and agitated. Restlessness improved as combination of akathisia question restless leg question tardive dyskinesia. Dopamine agonist increased monitor mood monitor confusion 11/12/2024 Continue plan of care increase dopamine agonist as tolerated increased propranolol as tolerated Informed Consent: further education needed Reason for continued inpatient stay Substantial Risk for: rapid decompensation Time Spent With Patient Time: Total time managing care of this patient today ____ minutes.
[2024-11-13 07:47] VITALS: BP 111/66; PULSE 64; RESP 16; TEMP 36.4; O2SAT 98
[2024-11-13] MEDS: Folic Acid 1 MG TABLET PO (08:24)
[2024-11-13] MEDS: Thiamine HCL 100 MG TABLET PO ×2 (08:24→20:31)
[2024-11-13] MEDS: Memantine HCl 10 MG TABLET PO (08:24)
[2024-11-13] MEDS: Pramipexole Di-HCL 0.125 MG TABLET 0.375 MG PO ×3 (08:24→20:29)
[2024-11-13] MEDS: LORazepam 0.5 MG TABLET PO (08:24)
[2024-11-13] MEDS: Cariprazine HCl 1.5 MG CAPSULE PO (08:24)
[2024-11-13] MEDS: Propranolol HCL 20 MG TABLET PO ×3 (08:24→20:30)
[2024-11-13 14:44] VITALS: BP 106/60; PULSE 71; RESP 18; TEMP 36.3; O2SAT 95
[2024-11-13 19:26] VITALS: BP 105/70; PULSE 78; TEMP 36.7; O2SAT 93
[2024-11-13] MEDS: Melatonin 3 MG TABLET 6 MG PO (20:29)
[2024-11-13] MEDS: Gabapentin 300 MG CAPSULE 600 MG PO (20:30)
[2024-11-13] MEDS: Mirtazapine 15 MG TABLET PO (20:30)
[2024-11-13] MEDS: LORazepam 1 MG TABLET PO (20:30)
[2024-11-13] MEDS: Donepezil HCl 10 MG TABLET PO (20:31)
--- NOTE | 2024-11-13 20:53 | HO.PSYCHPN ---
Subjective Subjective Date of Service: 11/13/24 Reason For Visit: crisis Interim History: Patient seen psychiatric follow-up. Seen in hallway, approached handbook writer. Appeared anxious, marching in place. Some delay in responses, flat affect. Reports mood: not too bad . Preoccupied with questioning around Dr. Willett and when he will be returning. Report eating well, no complaints around sleep. Denies any pain or active health problems. Per staff, patient has been more pleasant, on milieu. Med compliant. No behaviors. Review of Systems Review of Systems Denies any shortness of breath, chest pain, dizziness, lightheadedness, abdominal pain or discomfort, nausea vomiting or diarrhea. She reports feeling tired and wants to nap Mental Status Exam Mental Status Exam Patient Appearance: Unkempt Patient Orientation: Person, Place and Situation Level of Consciousness: Awake Patient Behavior: Restless, Anxious and Fatigued Behavior Comments: Some movement of of her legs much of the time rocking Mood Description: Depressed and Apprehensive Affect Description: Apprehensive Patient Cognition Impaired: Yes Ability to Follow Directions: Fair Speech Pattern: Clear and Impoverished Memory Description: Episodic Impaired and Working Impaired Diagnostics Vital Signs (24Hr): Vital Signs - 24 hr 11/13/24 07:47 11/13/24 14:44 11/13/24 19:26 Temperature 97.6 F 97.3 F 98.0 F Pulse Rate 64 71 78 Respiratory Rate 16 18 Blood Pressure 111/66 106/60 105/70 Pulse Oximetry 98 95 93 Oxygen Delivery Method Room Air Room Air Room Air BMI result Body Mass Index 28.0 Labs 11/08/24 13:33 11/09/24 07:59 Medications Medications Current Medications Acetaminophen (Acetaminophen 325 Mg Tablet) 650 mg PO Q6H PRN PRN Reason: Headache/Pain, Scale 1-10 Al Hydroxide/Mg Hydroxide (Magnesium Hydrox/Alum Hydrox 30 Ml Oral.Susp) 30 ml PO Q6H PRN PRN Reason: Heartburn/Nausea Calcium Carbonate (Calcium Oyster Shell Elemental 500 Mg Tablet) 500 mg PO BID [facility] Last Admin: 11/13/24 20:31 Dose: Not Given Cariprazine (Cariprazine Hcl 1.5 Mg Capsule) 1.5 mg PO DAILY [facility] Last Admin: 11/13/24 08:24 Dose: 1.5 mg Donepezil HCl (Donepezil Hcl 10 Mg Tablet) 10 mg PO BEDTIME [facility] Last Admin: 11/13/24 20:31 Dose: 10 mg Folic Acid (Folic Acid 1 Mg Tablet) 1 mg PO DAILY [facility] Last Admin: 11/13/24 08:24 Dose: 1 mg Gabapentin (Gabapentin 300 Mg Capsule) 600 mg PO BEDTIME [facility] Last Admin: 11/13/24 20:30 Dose: 600 mg Hydroxyzine HCl (Hydroxyzine Hcl 25 Mg Tablet) 25 mg PO Q6H PRN PRN Reason: mild anxiety Lorazepam (Lorazepam 1 Mg Tablet) 1 mg PO BEDTIME [facility] Last Admin: 11/13/24 20:30 Dose: 1 mg Lorazepam (Lorazepam 0.5 Mg Tablet) 0.5 mg PO DAILY [facility] Last Admin: 11/13/24 08:24 Dose: 0.5 mg Magnesium Hydroxide (Milk Of Magnesia 30 Ml Oral.Susp) 30 ml PO DAILY PRN PRN Reason: Constipation Melatonin (Melatonin 3 Mg Tablet) 6 mg PO BEDTIME [facility] Last Admin: 11/13/24 20:29 Dose: 6 mg Memantine (Memantine Hcl 10 Mg Tablet) 10 mg PO DAILY [facility] Last Admin: 11/13/24 08:24 Dose: 10 mg Mirtazapine (Mirtazapine 15 Mg Tablet) 15 mg PO BEDTIME [facility] Last Admin: 11/13/24 20:30 Dose: 15 mg Pramipexole Dihydrochloride (Pramipexole Di-Hcl 0.125 Mg Tablet) 0.375 mg PO TID [facility] Last Admin: 11/13/24 20:29 Dose: 0.375 mg Propranolol HCl (Propranolol Hcl 20 Mg Tablet) 20 mg PO TID [facility]; Protocol Last Admin: 11/13/24 20:30 Dose: 20 mg Quetiapine Fumarate (Quetiapine Fumarate 25 Mg Tablet) 25 mg PO DAILY PRN PRN Reason: for anxiety Quetiapine Fumarate (Quetiapine Fumarate 100 Mg Tablet) 100 mg PO BEDTIME [facility] Last Admin: 11/13/24 20:31 Dose: Not Given Thiamine HCl (Thiamine Hcl 100 Mg Tablet) 100 mg PO BID [facility] Last Admin: 11/13/24 20:31 Dose: 100 mg Allergies Allergies Allergy/AdvReac Type Severity Reaction Status Date / Time risperidone [From Risperdal] Allergy Intermediate UNKNOWN Verified 11/08/24 13:12 Sulfa (Sulfonamide Allergy Intermediate rash Verified 11/08/24 13:12 Antibiotics) From BENADRYL Allergy Intermediate DIZZY Uncoded 11/08/24 13:12 Assessment & Plan Assessment & Plan (1) Vascular dementia with anxiety: Status: Acute Code(s): F01.54 - Vascular dementia, unspecified severity, with anxiety (2) Major depressive disorder, recurrent severe without psychotic features: Status: Acute Code(s): F33.2 - Major depressive disorder, recurrent severe without psychotic features (3) POONAM (generalized anxiety disorder): Status: Acute Code(s): F41.1 - Generalized anxiety disorder Plan Major depressive disorder/anxiety/dementia Continue with treatment per psychiatric team. Lumbar spondylosis, osteoarthritis Treatment with pramipexole t.i.d. Calcium carbonate b.i.d. Gabapentin 600 at bedtime for pain control Tylenol as needed History of hyperlipidemia Not on medications at this point, her recent blood work indicates values within normal limits Follow up with PCP History of hypothyroidism Not on medication at this point Recent TSH 2.18. Free T4 0.93 Thank you for allowing me to participate in the care of this patient. We will follow as needed, Please reconsult of any acute complaints or issues arise 11/11/2024 Continue lower dose mirtazapine gabapentin Seroquel tapered Vraylar 1.5 mg. Patient less depressed less anxious and agitated. Restlessness improved as combination of akathisia question restless leg question tardive dyskinesia. Dopamine agonist increased monitor mood monitor confusion 11/13/24 continue treatment Reason for continued inpatient stay Substantial Risk for: inability to function and rapid decompensation Time Spent With Patient Time: Total time managing care of this patient today ____ minutes.
[2024-11-14 08:00] VITALS: BP 108/69; PULSE 75; RESP 16; TEMP 36.2; O2SAT 98
[2024-11-14 08:13] VITALS: BP 108/69; PULSE 75
[2024-11-14] MEDS: Thiamine HCL 100 MG TABLET PO ×2 (08:13→20:29)
[2024-11-14] MEDS: Pramipexole Di-HCL 0.125 MG TABLET 0.375 MG PO ×3 (08:13→20:28)
[2024-11-14] MEDS: LORazepam 0.5 MG TABLET PO (08:13)
[2024-11-14] MEDS: Folic Acid 1 MG TABLET PO (08:13)
[2024-11-14] MEDS: Memantine HCl 10 MG TABLET PO (08:13)
[2024-11-14] MEDS: Propranolol HCL 20 MG TABLET PO (08:13)
[2024-11-14] MEDS: Cariprazine HCl 1.5 MG CAPSULE PO (08:14)
--- NOTE | 2024-11-14 14:02 | HO.PSYCHPN ---
Subjective Subjective Date of Service: 11/14/24 Reason For Visit: crisis Subjective Notes: Conditional Voluntary Interim History: Patient seen psychiatric follow-up patient's mood flat some anxiety. Patient ambulating okay restlessness noted neuro consult reviewed. Complains of difficulty falling and staying asleep not responding to Seroquel Medication Compliance: Yes Side effects from medications: Yes Mental Status Exam Mental Status Exam Patient Appearance: Unkempt Patient Orientation: Person, Place and Situation Level of Consciousness: Awake Patient Behavior: Restless, Anxious and Fatigued Behavior Comments: Some movement of of her legs much of the time rocking Mood Description: Depressed and Apprehensive Affect Description: Apprehensive Patient Cognition Impaired: Yes Ability to Follow Directions: Fair Speech Pattern: Clear and Impoverished Memory Description: Episodic Impaired and Working Impaired Diagnostics Vital Signs (24Hr): Vital Signs - 24 hr 11/13/24 14:44 11/13/24 19:26 11/14/24 08:00 Temperature 97.3 F 98.0 F 97.2 F Pulse Rate 71 78 75 Respiratory Rate 18 16 Blood Pressure 106/60 105/70 108/69 Pulse Oximetry 95 93 98 Oxygen Delivery Method Room Air Room Air Room Air 11/14/24 08:13 Temperature Pulse Rate 75 Respiratory Rate Blood Pressure 108/69 Pulse Oximetry Oxygen Delivery Method BMI result Body Mass Index 28.0 Labs 11/08/24 13:33 11/09/24 07:59 Medications Medications Current Medications Acetaminophen (Acetaminophen 325 Mg Tablet) 650 mg PO Q6H PRN PRN Reason: Headache/Pain, Scale 1-10 Al Hydroxide/Mg Hydroxide (Magnesium Hydrox/Alum Hydrox 30 Ml Oral.Susp) 30 ml PO Q6H PRN PRN Reason: Heartburn/Nausea Calcium Carbonate (Calcium Oyster Shell Elemental 500 Mg Tablet) 500 mg PO BID [facility] Last Admin: 11/14/24 08:18 Dose: Not Given Cariprazine (Cariprazine Hcl 1.5 Mg Capsule) 1.5 mg PO DAILY [facility] Last Admin: 11/14/24 08:14 Dose: 1.5 mg Donepezil HCl (Donepezil Hcl 10 Mg Tablet) 10 mg PO BEDTIME [facility] Last Admin: 11/13/24 20:31 Dose: 10 mg Folic Acid (Folic Acid 1 Mg Tablet) 1 mg PO DAILY [facility] Last Admin: 11/14/24 08:13 Dose: 1 mg Gabapentin (Gabapentin 300 Mg Capsule) 600 mg PO BEDTIME [facility] Last Admin: 11/13/24 20:30 Dose: 600 mg Hydroxyzine HCl (Hydroxyzine Hcl 25 Mg Tablet) 25 mg PO Q6H PRN PRN Reason: mild anxiety Lorazepam (Lorazepam 1 Mg Tablet) 1 mg PO BEDTIME [facility] Last Admin: 11/13/24 20:30 Dose: 1 mg Lorazepam (Lorazepam 0.5 Mg Tablet) 0.5 mg PO DAILY [facility] Last Admin: 11/14/24 08:13 Dose: 0.5 mg Magnesium Hydroxide (Milk Of Magnesia 30 Ml Oral.Susp) 30 ml PO DAILY PRN PRN Reason: Constipation Melatonin (Melatonin 3 Mg Tablet) 6 mg PO BEDTIME [facility] Last Admin: 11/13/24 20:29 Dose: 6 mg Memantine (Memantine Hcl 10 Mg Tablet) 10 mg PO DAILY [facility] Last Admin: 11/14/24 08:13 Dose: 10 mg Mirtazapine (Mirtazapine 15 Mg Tablet) 15 mg PO BEDTIME [facility] Last Admin: 11/13/24 20:30 Dose: 15 mg Pramipexole Dihydrochloride (Pramipexole Di-Hcl 0.125 Mg Tablet) 0.375 mg PO TID [facility] Last Admin: 11/14/24 08:13 Dose: 0.375 mg Propranolol HCl (Propranolol Hcl 10 Mg Tablet) 10 mg PO TID [facility]; Protocol Quetiapine Fumarate (Quetiapine Fumarate 25 Mg Tablet) 25 mg PO DAILY PRN PRN Reason: for anxiety Quetiapine Fumarate (Quetiapine Fumarate 100 Mg Tablet) 100 mg PO BEDTIME [facility] Last Admin: 11/13/24 20:31 Dose: Not Given Thiamine HCl (Thiamine Hcl 100 Mg Tablet) 100 mg PO BID [facility] Last Admin: 11/14/24 08:13 Dose: 100 mg Allergies Allergies Allergy/AdvReac Type Severity Reaction Status Date / Time risperidone [From Risperdal] Allergy Intermediate UNKNOWN Verified 11/08/24 13:12 Sulfa (Sulfonamide Allergy Intermediate rash Verified 11/08/24 13:12 Antibiotics) From BENADRYL Allergy Intermediate DIZZY Uncoded 11/08/24 13:12 Assessment & Plan Assessment & Plan (1) Vascular dementia with anxiety: Status: Acute Code(s): F01.54 - Vascular dementia, unspecified severity, with anxiety (2) Major depressive disorder, recurrent severe without psychotic features: Status: Acute Code(s): F33.2 - Major depressive disorder, recurrent severe without psychotic features (3) POONAM (generalized anxiety disorder): Status: Acute Code(s): F41.1 - Generalized anxiety disorder Plan Major depressive disorder/anxiety/dementia Continue with treatment per psychiatric team. Lumbar spondylosis, osteoarthritis Treatment with pramipexole t.i.d. Calcium carbonate b.i.d. Gabapentin 600 at bedtime for pain control Tylenol as needed History of hyperlipidemia Not on medications at this point, her recent blood work indicates values within normal limits Follow up with PCP History of hypothyroidism Not on medication at this point Recent TSH 2.18. Free T4 0.93 Thank you for allowing me to participate in the care of this patient. We will follow as needed, Please reconsult of any acute complaints or issues arise 11/11/2024 Continue lower dose mirtazapine gabapentin Seroquel tapered Vraylar 1.5 mg. Patient less depressed less anxious and agitated. Restlessness improved as combination of akathisia question restless leg question tardive dyskinesia. Dopamine agonist increased monitor mood monitor confusion 11/12/2024 Continue plan of care increase dopamine agonist as tolerated increased propranolol as tolerated 11/14/24 Pt with akathesia lower dopamine agonist hydoxyzine 25 hs mirtazapine 15 hs Reason for continued inpatient stay Substantial Risk for: inability to function, rapid decompensation and med/psych decompensation Time Spent With Patient Time: Total time managing care of this patient today ____ minutes.
[2024-11-14 14:36] VITALS: BP 127/60; PULSE 63
[2024-11-14] MEDS: Propranolol HCL 10 MG TABLET PO ×2 (14:36→20:29)
--- NOTE | 2024-11-14 15:23 | PM.NEUROCN ---
History of Present Illness Data of Consult Service Date: 11/14/24 Primary Care Provider: Liss Holland NP HPI Reason for consult: Movement disorder 74 years old woman with exposure to antidepressants and antipsychotics I was asked to see for a movement disorder. I saw her when she was standing in the hallway and then walked with her. Apparently this was going on for a while and also was her outpatient diagnosis. There was no complaint of any pain related to this movement. It has mostly affected her legs. Leg movements were noted all the time. I would noted that she was on propranolol and pramipexole. [facility] Past Medical History Medical History (Updated 11/14/24 @ 15:28 by Son Pollock MD) Vascular dementia with anxiety Dementia Nocturnal hypoxia Severe recurrent major depression w/psychotic features, mood-congruent Has daytime drowsiness Preoperative examination Elevated glucose Screening for colon cancer Screening for diabetes mellitus Obesity (BMI 30-39.9) Confused but orients easily Depression, major, severe recurrence Abnormal serum protein electrophoresis Mild recurrent major depression Anxiety and depression Encounter for Medicare annual wellness exam Removal of nell Depression with anxiety Abdominal distention Weight gain Major depression, recurrent, full remission POONAM (generalized anxiety disorder) Hypothyroidism Hyperparathyroidism Multinodular thyroid Vitamin D deficiency Osteoporosis Family History Family History Father Myocardial infarction CVD (cardiovascular disease) Mother Dementia Alzheimer disease Other Mental health disorder Surgical History Surgical History Hx of colonoscopy Hx of kyphoplasty Hx of section Social History Social History Household Members: Spouse Housing: House Do you presently have visiting nurse or other home services: Yes (Visiting nurse to fill medications) Alcohol intake: never Comment: 1:1 sitter at bedside Patient Tobacco Use Status: Never used Tobacco Smoked in Last 30 Days: No e-Cigarette/Vaping Use: Never Used Second Hand Smoke Exposure: No Currently Displaying Signs/Symptoms of Drug Intoxication Withdrawal: No Have you been hit, kicked, punched, or otherwise hurt by someone within the past year? If so, by whom?: No Do you feel safe in your current relationship?: Yes Is there a partner from a previous relationship who is making you feel unsafe now?: No Are you made to feel afraid or neglected: No Advance Directives: Yes Advance Directives on File: Yes Advance Directives Date on File: 09/04/23 Do you have thoughts of harming others: None Do you have a plan to hurt others: No Plan Recently lost weight without trying: No How much weight loss: Not applicable Eating poorly because of decreased appetite: No Nutrition screen score: 0 Nutrition Risks: No Nutritional Risk Patient : No : No Poor oral hygiene: No service: No Current occupational status: unemployed Sexual orientation: Straight/Heterosexual Cognitive needs: No Hearing needs: No Meds Allergies Allergy/AdvReac Type Severity Reaction Status Date / Time risperidone [From Risperdal] Allergy Intermediate UNKNOWN Verified 11/08/24 13:12 Sulfa (Sulfonamide Allergy Intermediate rash Verified 11/08/24 13:12 Antibiotics) From BENADRYL Allergy Intermediate DIZZY Uncoded 11/08/24 13:12 Active Medications: Current Medications Acetaminophen (Acetaminophen 325 Mg Tablet) 650 mg PO Q6H PRN PRN Reason: Headache/Pain, Scale 1-10 Al Hydroxide/Mg Hydroxide (Magnesium Hydrox/Alum Hydrox 30 Ml Oral.Susp) 30 ml PO Q6H PRN PRN Reason: Heartburn/Nausea Calcium Carbonate (Calcium Oyster Shell Elemental 500 Mg Tablet) 500 mg PO BID [facility] Last Admin: 11/14/24 08:18 Dose: Not Given Cariprazine (Cariprazine Hcl 1.5 Mg Capsule) 1.5 mg PO DAILY [facility] Last Admin: 11/14/24 08:14 Dose: 1.5 mg Donepezil HCl (Donepezil Hcl 10 Mg Tablet) 10 mg PO BEDTIME [facility] Last Admin: 11/13/24 20:31 Dose: 10 mg Folic Acid (Folic Acid 1 Mg Tablet) 1 mg PO DAILY [facility] Last Admin: 11/14/24 08:13 Dose: 1 mg Gabapentin (Gabapentin 300 Mg Capsule) 600 mg PO BEDTIME [facility] Last Admin: 11/13/24 20:30 Dose: 600 mg Hydroxyzine HCl (Hydroxyzine Hcl 25 Mg Tablet) 25 mg PO Q6H PRN PRN Reason: mild anxiety Lorazepam (Lorazepam 1 Mg Tablet) 1 mg PO BEDTIME [facility] Last Admin: 11/13/24 20:30 Dose: 1 mg Lorazepam (Lorazepam 0.5 Mg Tablet) 0.5 mg PO DAILY [facility] Last Admin: 11/14/24 08:13 Dose: 0.5 mg Magnesium Hydroxide (Milk Of Magnesia 30 Ml Oral.Susp) 30 ml PO DAILY PRN PRN Reason: Constipation Melatonin (Melatonin 3 Mg Tablet) 6 mg PO BEDTIME [facility] Last Admin: 11/13/24 20:29 Dose: 6 mg Memantine (Memantine Hcl 10 Mg Tablet) 10 mg PO DAILY [facility] Last Admin: 11/14/24 08:13 Dose: 10 mg Mirtazapine (Mirtazapine 15 Mg Tablet) 15 mg PO BEDTIME [facility] Last Admin: 11/13/24 20:30 Dose: 15 mg Pramipexole Dihydrochloride (Pramipexole Di-Hcl 0.125 Mg Tablet) 0.375 mg PO TID [facility] Last Admin: 11/14/24 14:35 Dose: 0.375 mg Propranolol HCl (Propranolol Hcl 10 Mg Tablet) 10 mg PO TID [facility]; Protocol Last Admin: 11/14/24 14:36 Dose: 10 mg Quetiapine Fumarate (Quetiapine Fumarate 25 Mg Tablet) 25 mg PO DAILY PRN PRN Reason: for anxiety Quetiapine Fumarate (Quetiapine Fumarate 100 Mg Tablet) 100 mg PO BEDTIME [facility] Last Admin: 11/13/24 20:31 Dose: Not Given Thiamine HCl (Thiamine Hcl 100 Mg Tablet) 100 mg PO BID [facility] Last Admin: 11/14/24 08:13 Dose: 100 mg Home Medications ?Medication ?Instructions ?Recorded ?Confirmed ?Last Taken ?Type atorvastatin 20 mg tablet 20 mg PO BEDTIME 11/08/24 11/08/24 Unknown History calcium 500 mg (as 1 tab PO BID 11/08/24 11/08/24 Unknown History carbonate)-vitamin D3 5 mcg (200 unit) tablet (Oyster Shell Calcium-Vitamin D3) cariprazine 1.5 mg capsule 1.5 mg PO DAILY 11/08/24 11/08/24 Unknown History (Vraylar) folic acid 1 mg tablet 1 mg PO DAILY 11/08/24 11/08/24 Unknown History gabapentin 300 mg capsule 300 mg PO BEDTIME 11/08/24 11/08/24 Unknown History lorazepam 0.5 mg tablet 0.5 mg PO DAILY anxiety 11/08/24 11/08/24 Unknown History lorazepam 0.5 mg tablet 1 mg PO BEDTIME anxiety 11/08/24 11/08/24 Unknown History memantine 10 mg tablet 10 mg PO BID 11/08/24 11/08/24 Unknown History quetiapine 300 mg tablet 300 mg PO BEDTIME 11/08/24 11/08/24 Unknown History Physical Exam Vital Signs: Vital Signs: Last Vital Signs Temp 97.2 F 11/14/24 08:00 Pulse 63 11/14/24 14:36 Resp 16 11/14/24 08:00 BP 127/60 11/14/24 14:36 Pulse Ox 98 11/14/24 08:00 O2 Del Method Room Air 11/14/24 08:00 BMI result Body Mass Index 28.0 Neuro: Other: She is alert and awake with normal spontaneity and fluency of speech. When distracted, I saw her standing in the hallway constantly moving her legs in body like she was dancing. When I came close to her and started talking these movements stopped and also stopped when she started walking. Deep tendon reflexes were trace to absent. Speech was normal. Results Labs 11/08/24 13:33 11/09/24 07:59 Labs: Head CT revealed mild atrophy and microvascular ischemic changes. Assessment and Plan (1) Tardive akathisia: Status: Acute Sometime it is not an easy symptom to treat and as much as possible should be ignored unless patient is distraught or somehow physically impacted by it. I had noticed that she is already taking propranolol and pramipexole. Pramipexole probably would not make any difference in can be stopped. If propranolol as also not made any difference, it can also be stopped. I would only continue medicines if there would provide meaningful relief. Despite her age, I would suggest trying small dose of benztropine. If that would not work, try amantadine. Procedures Date of Service Date of Service: 11/14/24
[2024-11-14 20:00] VITALS: BP 131/60; PULSE 74; TEMP 36.3; O2SAT 96
[2024-11-14] MEDS: Gabapentin 300 MG CAPSULE 600 MG PO (20:27)
[2024-11-14] MEDS: Mirtazapine 15 MG TABLET PO (20:28)
[2024-11-14] MEDS: Melatonin 3 MG TABLET 6 MG PO (20:28)
[2024-11-14] MEDS: LORazepam 1 MG TABLET PO (20:28)
[2024-11-14] MEDS: hydrOXYzine HCL 25 MG TABLET PO (20:28)
[2024-11-15 08:00] VITALS: BP 109/67; PULSE 82; RESP 18; TEMP 36.3; O2SAT 99
[2024-11-15 08:25] VITALS: BP 109/67; PULSE 82
[2024-11-15] MEDS: Propranolol HCL 10 MG TABLET PO ×3 (08:25→20:49)
[2024-11-15] MEDS: Memantine HCl 10 MG TABLET PO (08:26)
[2024-11-15] MEDS: Cariprazine HCl 1.5 MG CAPSULE PO (08:26)
[2024-11-15] MEDS: Pramipexole Di-HCL 0.125 MG TABLET PO (08:26)
[2024-11-15] MEDS: Thiamine HCL 100 MG TABLET PO ×2 (08:26→20:50)
[2024-11-15] MEDS: Donepezil HCl 10 MG TABLET PO (08:26)
[2024-11-15] MEDS: Folic Acid 1 MG TABLET PO (08:27)
[2024-11-15] MEDS: LORazepam 0.5 MG TABLET PO (08:27)
--- NOTE | 2024-11-15 13:31 | P.PNPSI_ITS ---
Subjective Subjective Date of Service: 11/15/24 Reason For Visit: crisis Subjective Notes: Conditional Voluntary Interim History: pt has been less depressed case reviewed again with neurology consideration of amantadine. Some improvement in sleep Medication Compliance: Yes Mental Status Exam Mental Status Exam Patient Appearance: Appropriate Patient Orientation: Person, Place and Situation Level of Consciousness: Awake Patient Behavior: Talkative, Restless and Anxious Behavior Comments: Some movement of of her legs much of the time rocking Mood Description: Depressed and Apprehensive Affect Description: Apprehensive Patient Cognition Impaired: Yes Ability to Follow Directions: Fair Speech Pattern: Clear and Impoverished Memory Description: Episodic Impaired and Working Impaired Thought Content: positive for [place] Depressive Symptoms: Increased Anxiety and Increased Fatigue Diagnostics Vital Signs (24Hr): Vital Signs - 24 hr 11/14/24 14:36 11/14/24 20:00 11/15/24 08:00 Temperature 97.3 F 97.3 F Pulse Rate 63 74 82 Respiratory Rate 18 Blood Pressure 127/60 131/60 109/67 Pulse Oximetry 96 99 Oxygen Delivery Method Room Air Room Air 11/15/24 08:25 Temperature Pulse Rate 82 Respiratory Rate Blood Pressure 109/67 Pulse Oximetry Oxygen Delivery Method BMI result Body Mass Index 28.0 Labs 11/08/24 13:33 11/09/24 07:59 Medications Medications Current Medications Acetaminophen (Acetaminophen 325 Mg Tablet) 650 mg PO Q6H PRN PRN Reason: Headache/Pain, Scale 1-10 Al Hydroxide/Mg Hydroxide (Magnesium Hydrox/Alum Hydrox 30 Ml Oral.Susp) 30 ml PO Q6H PRN PRN Reason: Heartburn/Nausea Calcium Carbonate (Calcium Oyster Shell Elemental 500 Mg Tablet) 500 mg PO BID [facility] Last Admin: 11/15/24 08:30 Dose: Not Given Cariprazine (Cariprazine Hcl 1.5 Mg Capsule) 1.5 mg PO DAILY [facility] Last Admin: 11/15/24 08:26 Dose: 1.5 mg Donepezil HCl (Donepezil Hcl 10 Mg Tablet) 10 mg PO DAILY [facility] Last Admin: 11/15/24 08:26 Dose: 10 mg Folic Acid (Folic Acid 1 Mg Tablet) 1 mg PO DAILY [facility] Last Admin: 11/15/24 08:27 Dose: 1 mg Gabapentin (Gabapentin 300 Mg Capsule) 600 mg PO BEDTIME [facility] Last Admin: 11/14/24 20:27 Dose: 600 mg Hydroxyzine HCl (Hydroxyzine Hcl 25 Mg Tablet) 25 mg PO Q6H PRN PRN Reason: mild anxiety Hydroxyzine HCl (Hydroxyzine Hcl 25 Mg Tablet) 25 mg PO BEDTIME [facility] Last Admin: 11/14/24 20:28 Dose: 25 mg Lorazepam (Lorazepam 1 Mg Tablet) 1 mg PO BEDTIME [facility] Last Admin: 11/14/24 20:28 Dose: 1 mg Lorazepam (Lorazepam 0.5 Mg Tablet) 0.5 mg PO DAILY [facility] Last Admin: 11/15/24 08:27 Dose: 0.5 mg Magnesium Hydroxide (Milk Of Magnesia 30 Ml Oral.Susp) 30 ml PO DAILY PRN PRN Reason: Constipation Melatonin (Melatonin 3 Mg Tablet) 6 mg PO BEDTIME [facility] Last Admin: 11/14/24 20:28 Dose: 6 mg Memantine (Memantine Hcl 10 Mg Tablet) 10 mg PO DAILY [facility] Last Admin: 11/15/24 08:26 Dose: 10 mg Mirtazapine (Mirtazapine 15 Mg Tablet) 15 mg PO BEDTIME [facility] Last Admin: 11/14/24 20:28 Dose: 15 mg Pramipexole Dihydrochloride (Pramipexole Di-Hcl 0.125 Mg Tablet) 0.125 mg PO TID [facility] Last Admin: 11/15/24 08:26 Dose: 0.125 mg Propranolol HCl (Propranolol Hcl 10 Mg Tablet) 10 mg PO TID [facility]; Protocol Last Admin: 11/15/24 08:25 Dose: 10 mg Quetiapine Fumarate (Quetiapine Fumarate 25 Mg Tablet) 25 mg PO DAILY PRN PRN Reason: for anxiety Quetiapine Fumarate (Quetiapine Fumarate 100 Mg Tablet) 100 mg PO BEDTIME [facility] Last Admin: 11/15/24 00:34 Dose: Not Given Thiamine HCl (Thiamine Hcl 100 Mg Tablet) 100 mg PO BID [facility] Last Admin: 11/15/24 08:26 Dose: 100 mg Allergies Allergies Allergy/AdvReac Type Severity Reaction Status Date / Time risperidone [From Risperdal] Allergy Intermediate UNKNOWN Verified 11/08/24 13:12 Sulfa (Sulfonamide Allergy Intermediate rash Verified 11/08/24 13:12 Antibiotics) From BENADRYL Allergy Intermediate DIZZY Uncoded 11/08/24 13:12 Assessment & Plan Assessment & Plan (1) Major depressive disorder, recurrent severe without psychotic features: Status: Acute Code(s): F33.2 - Major depressive disorder, recurrent severe without psychotic features (2) Vascular dementia with anxiety: Status: Acute Code(s): F01.54 - Vascular dementia, unspecified severity, with anxiety (3) POONAM (generalized anxiety disorder): Status: Acute Code(s): F41.1 - Generalized anxiety disorder Plan Major depressive disorder/anxiety/dementia Continue with treatment per psychiatric team. Lumbar spondylosis, osteoarthritis Treatment with pramipexole t.i.d. Calcium carbonate b.i.d. Gabapentin 600 at bedtime for pain control Tylenol as needed History of hyperlipidemia Not on medications at this point, her recent blood work indicates values within normal limits Follow up with PCP History of hypothyroidism Not on medication at this point Recent TSH 2.18. Free T4 0.93 Thank you for allowing me to participate in the care of this patient. We will follow as needed, Please reconsult of any acute complaints or issues arise 11/11/2024 Continue lower dose mirtazapine gabapentin Seroquel tapered Vraylar 1.5 mg. Patient less depressed less anxious and agitated. Restlessness improved as combination of akathisia question restless leg question tardive dyskinesia. Dopamine agonist increased monitor mood monitor confusion 11/12/2024 Continue plan of care increase dopamine agonist as tolerated increased propranolol as tolerated 11/14/24 Pt with akathesia lower dopamine agonist hydoxyzine 25 hs mirtazapine 15 hs 11/15/24 seems better with hydrxyzine consider clonidine at hs for sleep akathesia did not tolerate inderal 20 tid lower seroquel 50 hs Reason for continued inpatient stay Substantial Risk for: inability to function and med/psych decompensation Time Spent With Patient Time: Total time managing care of this patient today ____ minutes.
[2024-11-15 15:25] VITALS: BP 121/62; PULSE 79
[2024-11-15] MEDS: LORazepam 1 MG TABLET PO (20:48)
[2024-11-15] MEDS: Gabapentin 300 MG CAPSULE 600 MG PO (20:48)
[2024-11-15] MEDS: hydrOXYzine HCL 25 MG TABLET PO (20:48)
[2024-11-15] MEDS: Melatonin 3 MG TABLET 6 MG PO (20:49)
[2024-11-15] MEDS: Mirtazapine 15 MG TABLET PO (20:49)
[2024-11-15 21:56] VITALS: BP 139/72; PULSE 75; RESP 18; TEMP 36.8; O2SAT 96
[2024-11-16 08:00] VITALS: BP 126/78; PULSE 85; TEMP 37.3; O2SAT 98
[2024-11-16 08:34] VITALS: BP 109/72; PULSE 85
[2024-11-16] MEDS: Thiamine HCL 100 MG TABLET PO ×2 (08:34→20:07)
[2024-11-16] MEDS: Propranolol HCL 10 MG TABLET PO ×3 (08:34→20:04)
[2024-11-16] MEDS: Memantine HCl 10 MG TABLET PO (08:34)
[2024-11-16] MEDS: Cariprazine HCl 1.5 MG CAPSULE PO (08:34)
[2024-11-16] MEDS: Donepezil HCl 10 MG TABLET PO (08:35)
[2024-11-16] MEDS: Folic Acid 1 MG TABLET PO (08:35)
[2024-11-16] MEDS: LORazepam 0.5 MG TABLET PO (08:35)
[2024-11-16] MEDS: Benztropine Mesylate 0.5 MG TABLET PO ×3 (12:22→20:06)
[2024-11-16 14:41] VITALS: BP 134/79; PULSE 80
[2024-11-16 20:00] VITALS: BP 130/71; PULSE 78; RESP 18; TEMP 36.1; O2SAT 96
[2024-11-16 20:04] VITALS: BP 130/71; PULSE 78
[2024-11-16] MEDS: Melatonin 3 MG TABLET 6 MG PO (20:04)
[2024-11-16] MEDS: hydrOXYzine HCL 25 MG TABLET PO (20:05)
[2024-11-16] MEDS: Gabapentin 300 MG CAPSULE 600 MG PO (20:05)
[2024-11-16] MEDS: LORazepam 1 MG TABLET PO (20:06)
[2024-11-16] MEDS: Mirtazapine 15 MG TABLET PO (20:06)
--- NOTE | 2024-11-16 21:40 | P.PNPSI_ITS ---
Subjective Subjective Date of Service: 11/16/24 Reason For Visit: crisis Subjective Notes: Conditional Voluntary Interim History: Patient seen psychiatric follow-up. Patient restless dysphoric complains of insomnia ongoing akathisia Mental Status Exam Mental Status Exam Patient Appearance: Appropriate Patient Orientation: Person, Place and Situation Level of Consciousness: Awake Patient Behavior: Talkative, Restless and Anxious Behavior Comments: Some movement of of her legs Mood Description: Depressed and Apprehensive Affect Description: Apprehensive Patient Cognition Impaired: Yes Ability to Follow Directions: Fair Speech Pattern: Clear and Impoverished Memory Description: Episodic Impaired and Working Impaired Thought Content: positive for [place] Depressive Symptoms: Increased Anxiety and Increased Fatigue Diagnostics Vital Signs (24Hr): Vital Signs - 24 hr 11/15/24 21:56 11/16/24 08:00 11/16/24 08:34 Temperature 98.2 F 99.1 F Pulse Rate 75 85 85 Respiratory Rate 18 Blood Pressure 139/72 126/78 109/72 Pulse Oximetry 96 98 Oxygen Delivery Method Room Air Room Air 11/16/24 14:41 11/16/24 20:00 11/16/24 20:04 Temperature 97.0 F Pulse Rate 80 78 78 Respiratory Rate 18 Blood Pressure 134/79 130/71 130/71 Pulse Oximetry 96 Oxygen Delivery Method Room Air BMI result Body Mass Index 28.0 Labs 11/08/24 13:33 11/09/24 07:59 Medications Medications Current Medications Acetaminophen (Acetaminophen 325 Mg Tablet) 650 mg PO Q6H PRN PRN Reason: Headache/Pain, Scale 1-10 Al Hydroxide/Mg Hydroxide (Magnesium Hydrox/Alum Hydrox 30 Ml Oral.Susp) 30 ml PO Q6H PRN PRN Reason: Heartburn/Nausea Benztropine Mesylate (Benztropine Mesylate 0.5 Mg Tablet) 0.5 mg PO TID [facility] Last Admin: 11/16/24 20:06 Dose: 0.5 mg Calcium Carbonate (Calcium Oyster Shell Elemental 500 Mg Tablet) 500 mg PO BID [facility] Last Admin: 11/16/24 20:02 Dose: Not Given Cariprazine (Cariprazine Hcl 1.5 Mg Capsule) 1.5 mg PO DAILY [facility] Last Admin: 11/16/24 08:34 Dose: 1.5 mg Donepezil HCl (Donepezil Hcl 10 Mg Tablet) 10 mg PO DAILY [facility] Last Admin: 11/16/24 08:35 Dose: 10 mg Folic Acid (Folic Acid 1 Mg Tablet) 1 mg PO DAILY [facility] Last Admin: 11/16/24 08:35 Dose: 1 mg Gabapentin (Gabapentin 300 Mg Capsule) 600 mg PO BEDTIME [facility] Last Admin: 11/16/24 20:05 Dose: 600 mg Hydroxyzine HCl (Hydroxyzine Hcl 25 Mg Tablet) 25 mg PO Q6H PRN PRN Reason: mild anxiety Hydroxyzine HCl (Hydroxyzine Hcl 25 Mg Tablet) 25 mg PO BEDTIME [facility] Last Admin: 11/16/24 20:05 Dose: 25 mg Lorazepam (Lorazepam 1 Mg Tablet) 1 mg PO BEDTIME [facility] Last Admin: 11/16/24 20:06 Dose: 1 mg Lorazepam (Lorazepam 0.5 Mg Tablet) 0.5 mg PO DAILY [facility] Last Admin: 11/16/24 08:35 Dose: 0.5 mg Magnesium Hydroxide (Milk Of Magnesia 30 Ml Oral.Susp) 30 ml PO DAILY PRN PRN Reason: Constipation Melatonin (Melatonin 3 Mg Tablet) 6 mg PO BEDTIME [facility] Last Admin: 11/16/24 20:04 Dose: 6 mg Memantine (Memantine Hcl 10 Mg Tablet) 10 mg PO DAILY [facility] Last Admin: 11/16/24 08:34 Dose: 10 mg Mirtazapine (Mirtazapine 15 Mg Tablet) 15 mg PO BEDTIME [facility] Last Admin: 11/16/24 20:06 Dose: 15 mg Propranolol HCl (Propranolol Hcl 10 Mg Tablet) 10 mg PO TID [facility]; Protocol Last Admin: 11/16/24 20:04 Dose: 10 mg Quetiapine Fumarate (Quetiapine Fumarate 25 Mg Tablet) 25 mg PO DAILY PRN PRN Reason: for anxiety Quetiapine Fumarate (Quetiapine Fumarate 100 Mg Tablet) 100 mg PO BEDTIME [facility] Last Admin: 11/16/24 20:03 Dose: Not Given Thiamine HCl (Thiamine Hcl 100 Mg Tablet) 100 mg PO BID [facility] Last Admin: 11/16/24 20:07 Dose: 100 mg Allergies Allergies Allergy/AdvReac Type Severity Reaction Status Date / Time risperidone [From Risperdal] Allergy Intermediate UNKNOWN Verified 11/08/24 13:12 Sulfa (Sulfonamide Allergy Intermediate rash Verified 11/08/24 13:12 Antibiotics) From BENADRYL Allergy Intermediate DIZZY Uncoded 11/08/24 13:12 Assessment & Plan Assessment & Plan (1) Major depressive disorder, recurrent severe without psychotic features: Status: Acute Code(s): F33.2 - Major depressive disorder, recurrent severe without psychotic features (2) Vascular dementia with anxiety: Status: Acute Code(s): F01.54 - Vascular dementia, unspecified severity, with anxiety (3) POONAM (generalized anxiety disorder): Status: Acute Code(s): F41.1 - Generalized anxiety disorder Plan Major depressive disorder/anxiety/dementia Continue with treatment per psychiatric team. Lumbar spondylosis, osteoarthritis Treatment with pramipexole t.i.d. Calcium carbonate b.i.d. Gabapentin 600 at bedtime for pain control Tylenol as needed History of hyperlipidemia Not on medications at this point, her recent blood work indicates values within normal limits Follow up with PCP History of hypothyroidism Not on medication at this point Recent TSH 2.18. Free T4 0.93 Thank you for allowing me to participate in the care of this patient. We will follow as needed, Please reconsult of any acute complaints or issues arise 11/11/2024 Continue lower dose mirtazapine gabapentin Seroquel tapered Vraylar 1.5 mg. Patient less depressed less anxious and agitated. Restlessness improved as combination of akathisia question restless leg question tardive dyskinesia. Dopamine agonist increased monitor mood monitor confusion 11/12/2024 Continue plan of care increase dopamine agonist as tolerated increased propranolol as tolerated 11/14/24 Pt with akathesia lower dopamine agonist hydoxyzine 25 hs mirtazapine 15 hs 11/15/24 seems better with hydrxyzine consider clonidine at hs for sleep akathesia did not tolerate inderal 20 tid lower seroquel 50 hs 11/16/2024 Start Latuda Cogentin for akathisia doxepin HS Reason for continued inpatient stay Substantial Risk for: inability to function and rapid decompensation Time Spent With Patient Time: Total time managing care of this patient today ____ minutes.
[2024-11-17 08:13] VITALS: BP 109/65; PULSE 83; RESP 20; TEMP 36.8; O2SAT 97
[2024-11-17] MEDS: Donepezil HCl 10 MG TABLET PO (08:19)
[2024-11-17] MEDS: Thiamine HCL 100 MG TABLET PO ×2 (08:20→19:37)
[2024-11-17] MEDS: Memantine HCl 10 MG TABLET PO (08:20)
[2024-11-17] MEDS: Folic Acid 1 MG TABLET PO (08:21)
[2024-11-17] MEDS: Propranolol HCL 10 MG TABLET PO ×3 (08:22→19:36)
[2024-11-17] MEDS: Benztropine Mesylate 0.5 MG TABLET PO ×3 (08:22→19:37)
[2024-11-17] MEDS: LORazepam 0.5 MG TABLET PO (08:22)
[2024-11-17] MEDS: Lurasidone HCl 20 MG TABLET PO (10:15)
[2024-11-17 11:18] VITALS: BMI 27.9
[2024-11-17 14:25] VITALS: BP 108/70; PULSE 91; RESP 16; O2SAT 95
[2024-11-17 19:35] VITALS: BP 118/57; PULSE 76; RESP 14; TEMP 36.7; O2SAT 93
[2024-11-17 19:36] VITALS: BP 118/57; PULSE 76
[2024-11-17] MEDS: Melatonin 3 MG TABLET 6 MG PO (19:37)
[2024-11-17] MEDS: Doxepin HCl 10 MG CAPSULE PO (19:37)
[2024-11-17] MEDS: Gabapentin 300 MG CAPSULE 600 MG PO (19:37)
[2024-11-17] MEDS: LORazepam 1 MG TABLET PO (19:37)
[2024-11-17] MEDS: hydrOXYzine HCL 25 MG TABLET PO (19:37)
[2024-11-17] MEDS: Mirtazapine 15 MG TABLET PO (19:38)
--- NOTE | 2024-11-18 00:02 | P.PNPSI_ITS ---
Subjective Subjective Date of Service: 11/17/24 Reason For Visit: crisis Subjective Notes: Conditional Voluntary Interim History: pt with dec restlessness c/o insomnia anxious and withdrawn Mental Status Exam Mental Status Exam Patient Appearance: Appropriate Patient Orientation: Person, Place and Situation Level of Consciousness: Awake Patient Behavior: Talkative, Restless and Anxious Behavior Comments: Some movement of of her legs much of the time rocking Mood Description: Depressed and Apprehensive Affect Description: Apprehensive Patient Cognition Impaired: Yes Ability to Follow Directions: Fair Speech Pattern: Clear and Impoverished Memory Description: Episodic Impaired and Working Impaired Thought Content: positive for [place] Depressive Symptoms: Increased Anxiety and Increased Fatigue Diagnostics Vital Signs (24Hr): Vital Signs - 24 hr 11/17/24 08:13 11/17/24 14:25 11/17/24 19:35 Temperature 98.2 F 98.1 F Pulse Rate 83 91 76 Respiratory Rate 20 16 14 Blood Pressure 109/65 108/70 118/57 L Pulse Oximetry 97 95 93 Oxygen Delivery Method Room Air Room Air Room Air 11/17/24 19:36 Temperature Pulse Rate 76 Respiratory Rate Blood Pressure 118/57 L Pulse Oximetry Oxygen Delivery Method BMI result Body Mass Index 27.9 Labs 11/08/24 13:33 11/09/24 07:59 Medications Medications Current Medications Acetaminophen (Acetaminophen 325 Mg Tablet) 650 mg PO Q6H PRN PRN Reason: Headache/Pain, Scale 1-10 Al Hydroxide/Mg Hydroxide (Magnesium Hydrox/Alum Hydrox 30 Ml Oral.Susp) 30 ml PO Q6H PRN PRN Reason: Heartburn/Nausea Benztropine Mesylate (Benztropine Mesylate 0.5 Mg Tablet) 0.5 mg PO TID [facility] Last Admin: 11/17/24 19:37 Dose: 0.5 mg Cariprazine (Cariprazine Hcl 1.5 Mg Capsule) 1.5 mg PO DAILY [facility] Last Admin: 11/17/24 08:21 Dose: Not Given Donepezil HCl (Donepezil Hcl 10 Mg Tablet) 10 mg PO DAILY [facility] Last Admin: 11/17/24 08:19 Dose: 10 mg Doxepin HCl (Doxepin Hcl 10 Mg Capsule) 10 mg PO BEDTIME [facility] Last Admin: 11/17/24 19:37 Dose: 10 mg Folic Acid (Folic Acid 1 Mg Tablet) 1 mg PO DAILY [facility] Last Admin: 11/17/24 08:21 Dose: 1 mg Gabapentin (Gabapentin 300 Mg Capsule) 600 mg PO BEDTIME [facility] Last Admin: 11/17/24 19:37 Dose: 600 mg Hydroxyzine HCl (Hydroxyzine Hcl 25 Mg Tablet) 25 mg PO Q6H PRN PRN Reason: mild anxiety Hydroxyzine HCl (Hydroxyzine Hcl 25 Mg Tablet) 25 mg PO BEDTIME [facility] Last Admin: 11/17/24 19:37 Dose: 25 mg Lorazepam (Lorazepam 1 Mg Tablet) 1 mg PO BEDTIME [facility] Last Admin: 11/17/24 19:37 Dose: 1 mg Lorazepam (Lorazepam 0.5 Mg Tablet) 0.5 mg PO DAILY [facility] Last Admin: 11/17/24 08:22 Dose: 0.5 mg Lurasidone HCl (Lurasidone Hcl 20 Mg Tablet) 20 mg PO DAILY [facility] Last Admin: 11/17/24 10:15 Dose: 20 mg Magnesium Hydroxide (Milk Of Magnesia 30 Ml Oral.Susp) 30 ml PO DAILY PRN PRN Reason: Constipation Melatonin (Melatonin 3 Mg Tablet) 6 mg PO BEDTIME [facility] Last Admin: 11/17/24 19:37 Dose: 6 mg Memantine (Memantine Hcl 10 Mg Tablet) 10 mg PO DAILY [facility] Last Admin: 11/17/24 08:20 Dose: 10 mg Mirtazapine (Mirtazapine 15 Mg Tablet) 15 mg PO BEDTIME [facility] Last Admin: 11/17/24 19:38 Dose: 15 mg Propranolol HCl (Propranolol Hcl 10 Mg Tablet) 10 mg PO TID [facility]; Protocol Last Admin: 11/17/24 19:36 Dose: 10 mg Quetiapine Fumarate (Quetiapine Fumarate 25 Mg Tablet) 25 mg PO DAILY PRN PRN Reason: for anxiety Thiamine HCl (Thiamine Hcl 100 Mg Tablet) 100 mg PO BID [facility] Last Admin: 11/17/24 19:37 Dose: 100 mg Allergies Allergies Allergy/AdvReac Type Severity Reaction Status Date / Time risperidone [From Risperdal] Allergy Intermediate UNKNOWN Verified 11/08/24 13:12 Sulfa (Sulfonamide Allergy Intermediate rash Verified 11/08/24 13:12 Antibiotics) From BENADRYL Allergy Intermediate DIZZY Uncoded 11/08/24 13:12 Assessment & Plan Assessment & Plan (1) Major depressive disorder, recurrent severe without psychotic features: Status: Acute Code(s): F33.2 - Major depressive disorder, recurrent severe without psychotic features (2) Vascular dementia with anxiety: Status: Acute Code(s): F01.54 - Vascular dementia, unspecified severity, with anxiety (3) POONAM (generalized anxiety disorder): Status: Acute Code(s): F41.1 - Generalized anxiety disorder Plan Major depressive disorder/anxiety/dementia Continue with treatment per psychiatric team. Lumbar spondylosis, osteoarthritis Treatment with pramipexole t.i.d. Calcium carbonate b.i.d. Gabapentin 600 at bedtime for pain control Tylenol as needed History of hyperlipidemia Not on medications at this point, her recent blood work indicates values within normal limits Follow up with PCP History of hypothyroidism Not on medication at this point Recent TSH 2.18. Free T4 0.93 Thank you for allowing me to participate in the care of this patient. We will follow as needed, Please reconsult of any acute complaints or issues arise 11/11/2024 Continue lower dose mirtazapine gabapentin Seroquel tapered Vraylar 1.5 mg. Patient less depressed less anxious and agitated. Restlessness improved as combination of akathisia question restless leg question tardive dyskinesia. Dopamine agonist increased monitor mood monitor confusion 11/12/2024 Continue plan of care increase dopamine agonist as tolerated increased propranolol as tolerated 11/14/24 Pt with akathesia lower dopamine agonist hydoxyzine 25 hs mirtazapine 15 hs 11/15/24 seems better with hydrxyzine consider clonidine at hs for sleep akathesia did not tolerate inderal 20 tid lower seroquel 50 hs 11/17/24 doxepin 10 hs stop scheduled seroquel stop vraylar latuda 20 am Reason for continued inpatient stay Substantial Risk for: inability to function, stable for discharge and rapid decompensation Time Spent With Patient Time: Total time managing care of this patient today ____ minutes.
[2024-11-18 08:00] VITALS: BP 120/60; PULSE 83; RESP 16; TEMP 36.3; O2SAT 92
[2024-11-18] MEDS: Benztropine Mesylate 0.5 MG TABLET PO ×3 (08:32→19:44)
[2024-11-18] MEDS: Thiamine HCL 100 MG TABLET PO ×2 (08:33→19:45)
[2024-11-18] MEDS: LORazepam 0.5 MG TABLET PO (08:33)
[2024-11-18] MEDS: Cariprazine HCl 1.5 MG CAPSULE PO (08:33)
[2024-11-18] MEDS: Memantine HCl 10 MG TABLET PO (08:33)
[2024-11-18] MEDS: Lurasidone HCl 20 MG TABLET PO (08:33)
[2024-11-18] MEDS: Propranolol HCL 10 MG TABLET PO ×2 (08:33→19:45)
[2024-11-18] MEDS: Folic Acid 1 MG TABLET PO (10:04)
[2024-11-18] MEDS: Donepezil HCl 10 MG TABLET PO (10:05)
--- NOTE | 2024-11-18 11:46 | HO.PSYCHPN ---
Subjective Subjective Date of Service: 11/18/24 Reason For Visit: crisis Interim History: convinced she is not sleeping well despite staff observation that she is in fact sleeping. chart reviewed, strategy of clonidine supplementation reviewed with pt. pt elects for trial. per staff, crying for theresa. says not sleeping, but appears to be sleeping. Mental Status Exam Mental Status Exam Patient Appearance: Appropriate Patient Orientation: Person, Place and Situation Level of Consciousness: Awake Patient Behavior: Talkative, Restless and Anxious Behavior Comments: Some movement of of her legs much of the time rocking Mood Description: Depressed and Apprehensive Affect Description: Apprehensive Patient Cognition Impaired: Yes Ability to Follow Directions: Fair Speech Pattern: Clear and Impoverished Memory Description: Episodic Impaired and Working Impaired Thought Content: positive for [place] Depressive Symptoms: Increased Anxiety and Increased Fatigue Diagnostics Vital Signs (24Hr): Vital Signs - 24 hr 11/17/24 14:25 11/17/24 19:35 11/17/24 19:36 Temperature 98.1 F Pulse Rate 91 76 76 Respiratory Rate 16 14 Blood Pressure 108/70 118/57 L 118/57 L Pulse Oximetry 95 93 Oxygen Delivery Method Room Air Room Air 11/18/24 08:00 Temperature 97.3 F Pulse Rate 83 Respiratory Rate 16 Blood Pressure 120/60 Pulse Oximetry 92 Oxygen Delivery Method Room Air BMI result Body Mass Index 27.9 Labs 11/08/24 13:33 11/09/24 07:59 Medications Medications Current Medications Acetaminophen (Acetaminophen 325 Mg Tablet) 650 mg PO Q6H PRN PRN Reason: Headache/Pain, Scale 1-10 Al Hydroxide/Mg Hydroxide (Magnesium Hydrox/Alum Hydrox 30 Ml Oral.Susp) 30 ml PO Q6H PRN PRN Reason: Heartburn/Nausea Benztropine Mesylate (Benztropine Mesylate 0.5 Mg Tablet) 0.5 mg PO TID [facility] Last Admin: 11/18/24 08:32 Dose: 0.5 mg Cariprazine (Cariprazine Hcl 1.5 Mg Capsule) 1.5 mg PO DAILY [facility] Last Admin: 11/18/24 08:33 Dose: 1.5 mg Clonidine HCl (Clonidine Hcl 0.1 Mg Tablet) 0.1 mg PO BEDTIME [facility]; Protocol Donepezil HCl (Donepezil Hcl 10 Mg Tablet) 10 mg PO DAILY [facility] Last Admin: 11/18/24 10:05 Dose: 10 mg Doxepin HCl (Doxepin Hcl 10 Mg Capsule) 10 mg PO BEDTIME [facility] Last Admin: 11/17/24 19:37 Dose: 10 mg Folic Acid (Folic Acid 1 Mg Tablet) 1 mg PO DAILY [facility] Last Admin: 11/18/24 10:04 Dose: 1 mg Gabapentin (Gabapentin 300 Mg Capsule) 600 mg PO BEDTIME [facility] Last Admin: 11/17/24 19:37 Dose: 600 mg Hydroxyzine HCl (Hydroxyzine Hcl 25 Mg Tablet) 25 mg PO Q6H PRN PRN Reason: mild anxiety Hydroxyzine HCl (Hydroxyzine Hcl 25 Mg Tablet) 25 mg PO BEDTIME [facility] Last Admin: 11/17/24 19:37 Dose: 25 mg Lorazepam (Lorazepam 1 Mg Tablet) 1 mg PO BEDTIME [facility] Last Admin: 11/17/24 19:37 Dose: 1 mg Lorazepam (Lorazepam 0.5 Mg Tablet) 0.5 mg PO DAILY [facility] Last Admin: 11/18/24 08:33 Dose: 0.5 mg Lurasidone HCl (Lurasidone Hcl 20 Mg Tablet) 20 mg PO DAILY [facility] Last Admin: 11/18/24 08:33 Dose: 20 mg Magnesium Hydroxide (Milk Of Magnesia 30 Ml Oral.Susp) 30 ml PO DAILY PRN PRN Reason: Constipation Melatonin (Melatonin 3 Mg Tablet) 6 mg PO BEDTIME [facility] Last Admin: 11/17/24 19:37 Dose: 6 mg Memantine (Memantine Hcl 10 Mg Tablet) 10 mg PO DAILY [facility] Last Admin: 11/18/24 08:33 Dose: 10 mg Mirtazapine (Mirtazapine 15 Mg Tablet) 15 mg PO BEDTIME [facility] Last Admin: 11/17/24 19:38 Dose: 15 mg Propranolol HCl (Propranolol Hcl 10 Mg Tablet) 10 mg PO TID [facility]; Protocol Last Admin: 11/18/24 08:33 Dose: 10 mg Quetiapine Fumarate (Quetiapine Fumarate 25 Mg Tablet) 25 mg PO DAILY PRN PRN Reason: for anxiety Thiamine HCl (Thiamine Hcl 100 Mg Tablet) 100 mg PO BID [facility] Last Admin: 11/18/24 08:33 Dose: 100 mg Allergies Allergies Allergy/AdvReac Type Severity Reaction Status Date / Time risperidone [From Risperdal] Allergy Intermediate UNKNOWN Verified 11/08/24 13:12 Sulfa (Sulfonamide Allergy Intermediate rash Verified 11/08/24 13:12 Antibiotics) From BENADRYL Allergy Intermediate DIZZY Uncoded 11/08/24 13:12 Assessment & Plan Assessment & Plan (1) Major depressive disorder, recurrent severe without psychotic features: Status: Acute Code(s): F33.2 - Major depressive disorder, recurrent severe without psychotic features (2) Vascular dementia with anxiety: Status: Acute Code(s): F01.54 - Vascular dementia, unspecified severity, with anxiety (3) POONAM (generalized anxiety disorder): Status: Acute Code(s): F41.1 - Generalized anxiety disorder Plan Major depressive disorder/anxiety/dementia Continue with treatment per psychiatric team. Lumbar spondylosis, osteoarthritis Treatment with pramipexole t.i.d. Calcium carbonate b.i.d. Gabapentin 600 at bedtime for pain control Tylenol as needed History of hyperlipidemia Not on medications at this point, her recent blood work indicates values within normal limits Follow up with PCP History of hypothyroidism Not on medication at this point Recent TSH 2.18. Free T4 0.93 Thank you for allowing me to participate in the care of this patient. We will follow as needed, Please reconsult of any acute complaints or issues arise 11/11/2024 Continue lower dose mirtazapine gabapentin Seroquel tapered Vraylar 1.5 mg. Patient less depressed less anxious and agitated. Restlessness improved as combination of akathisia question restless leg question tardive dyskinesia. Dopamine agonist increased monitor mood monitor confusion 11/12/2024 Continue plan of care increase dopamine agonist as tolerated increased propranolol as tolerated 11/14/24 Pt with akathesia lower dopamine agonist hydoxyzine 25 hs mirtazapine 15 hs 11/15/24 seems better with hydrxyzine consider clonidine at hs for sleep akathesia did not tolerate inderal 20 tid lower seroquel 50 hs 11/17/24 doxepin 10 hs stop scheduled seroquel stop vraylar latuda 20 am 11/18 per staff appears to be sleeping, pt reports she is NOT sleeping. as per 11/15 note, will initiate trial of clonidine 0.1 mg at HS. Reason for continued inpatient stay Substantial Risk for: inability to function Time Spent With Patient Time: Total time managing care of this patient today __25__ minutes.
[2024-11-18 15:24] VITALS: BP 91/67; PULSE 72
[2024-11-18 19:42] VITALS: BP 117/58; PULSE 68; RESP 16; TEMP 36.3; O2SAT 96
[2024-11-18 19:44] VITALS: BP 117/58
[2024-11-18] MEDS: Gabapentin 300 MG CAPSULE 600 MG PO (19:44)
[2024-11-18] MEDS: Mirtazapine 15 MG TABLET PO (19:44)
[2024-11-18] MEDS: Doxepin HCl 10 MG CAPSULE PO (19:44)
[2024-11-18] MEDS: hydrOXYzine HCL 25 MG TABLET PO (19:44)
[2024-11-18] MEDS: Melatonin 3 MG TABLET 6 MG PO (19:44)
[2024-11-18] MEDS: cloNIDine HCL 0.1 MG TABLET PO (19:44)
[2024-11-18 19:45] VITALS: BP 117/58; PULSE 68
[2024-11-18] MEDS: LORazepam 1 MG TABLET PO (19:45)
[2024-11-19 08:00] VITALS: BP 101/56; PULSE 80; RESP 16; TEMP 36.4; O2SAT 98
[2024-11-19 08:10] VITALS: BP 101/56; PULSE 80
[2024-11-19] MEDS: Benztropine Mesylate 0.5 MG TABLET PO ×3 (08:10→21:15)
[2024-11-19] MEDS: LORazepam 0.5 MG TABLET PO (08:10)
[2024-11-19] MEDS: Memantine HCl 10 MG TABLET PO (08:10)
[2024-11-19] MEDS: Propranolol HCL 10 MG TABLET PO ×3 (08:10→21:12)
[2024-11-19] MEDS: Lurasidone HCl 20 MG TABLET PO (08:10)
[2024-11-19] MEDS: Thiamine HCL 100 MG TABLET PO ×2 (08:10→21:11)
[2024-11-19] MEDS: Folic Acid 1 MG TABLET PO (08:11)
[2024-11-19] MEDS: Cariprazine HCl 1.5 MG CAPSULE PO (09:22)
[2024-11-19 15:09] VITALS: BP 117/64; PULSE 77
[2024-11-19 20:00] VITALS: BP 111/56; PULSE 64; RESP 16; TEMP 37.2; O2SAT 95
[2024-11-19] MEDS: hydrOXYzine HCL 25 MG TABLET PO (21:12)
[2024-11-19] MEDS: Doxepin HCl 10 MG CAPSULE PO (21:12)
[2024-11-19] MEDS: Donepezil HCl 10 MG TABLET PO (21:13)
[2024-11-19] MEDS: LORazepam 1 MG TABLET PO (21:13)
[2024-11-19] MEDS: Gabapentin 300 MG CAPSULE 600 MG PO (21:14)
[2024-11-19 21:15] VITALS: BP 130/77
[2024-11-19] MEDS: cloNIDine HCL 0.1 MG TABLET PO (21:15)
[2024-11-19] MEDS: Mirtazapine 15 MG TABLET PO (21:16)
[2024-11-19] MEDS: Melatonin 3 MG TABLET 6 MG PO (21:16)
--- NOTE | 2024-11-19 23:32 | HO.PSYCHPN ---
Subjective Subjective Date of Service: 11/19/24 Reason For Visit: crisis Interim History: met with pt; discussed with team pt says she is having trouble sleeping and needs to sleep to get better; wants medication to help. Otherwise says alright Mental Status Exam Mental Status Exam Patient Appearance: Appropriate Patient Orientation: Person, Place and Situation Level of Consciousness: Awake Patient Behavior: Talkative, Restless and Anxious Behavior Comments: Some movement of of her legs much of the time rocking Mood Description: Depressed and Apprehensive Affect Description: Apprehensive Patient Cognition Impaired: Yes Ability to Follow Directions: Fair Speech Pattern: Clear and Impoverished Memory Description: Episodic Impaired and Working Impaired Thought Content: positive for [place] Depressive Symptoms: Increased Anxiety and Increased Fatigue Diagnostics Vital Signs (24Hr): Vital Signs - 24 hr 11/19/24 08:00 11/19/24 08:10 11/19/24 15:09 Temperature 97.5 F Pulse Rate 80 80 77 Respiratory Rate 16 Blood Pressure 101/56 L 101/56 L 117/64 Pulse Oximetry 98 Oxygen Delivery Method Room Air 11/19/24 20:00 11/19/24 21:15 Temperature 98.9 F Pulse Rate 64 Respiratory Rate 16 Blood Pressure 111/56 L 130/77 Pulse Oximetry 95 Oxygen Delivery Method Room Air BMI result Body Mass Index 27.9 Labs 11/08/24 13:33 11/09/24 07:59 Medications Medications Current Medications Acetaminophen (Acetaminophen 325 Mg Tablet) 650 mg PO Q6H PRN PRN Reason: Headache/Pain, Scale 1-10 Al Hydroxide/Mg Hydroxide (Magnesium Hydrox/Alum Hydrox 30 Ml Oral.Susp) 30 ml PO Q6H PRN PRN Reason: Heartburn/Nausea Benztropine Mesylate (Benztropine Mesylate 0.5 Mg Tablet) 0.5 mg PO TID [facility] Last Admin: 11/19/24 21:15 Dose: 0.5 mg Cariprazine (Cariprazine Hcl 1.5 Mg Capsule) 1.5 mg PO DAILY [facility] Last Admin: 11/19/24 09:22 Dose: 1.5 mg Clonidine HCl (Clonidine Hcl 0.1 Mg Tablet) 0.1 mg PO BEDTIME [facility]; Protocol Last Admin: 11/19/24 21:15 Dose: 0.1 mg Donepezil HCl (Donepezil Hcl 10 Mg Tablet) 10 mg PO BEDTIME [facility] Last Admin: 11/19/24 21:13 Dose: 10 mg Doxepin HCl (Doxepin Hcl 10 Mg Capsule) 10 mg PO BEDTIME [facility] Last Admin: 11/19/24 21:12 Dose: 10 mg Folic Acid (Folic Acid 1 Mg Tablet) 1 mg PO DAILY [facility] Last Admin: 11/19/24 08:11 Dose: 1 mg Gabapentin (Gabapentin 300 Mg Capsule) 600 mg PO BEDTIME [facility] Last Admin: 11/19/24 21:14 Dose: 600 mg Hydroxyzine HCl (Hydroxyzine Hcl 25 Mg Tablet) 25 mg PO Q6H PRN PRN Reason: mild anxiety Hydroxyzine HCl (Hydroxyzine Hcl 25 Mg Tablet) 25 mg PO BEDTIME [facility] Last Admin: 11/19/24 21:12 Dose: 25 mg Lorazepam (Lorazepam 1 Mg Tablet) 1 mg PO BEDTIME [facility] Last Admin: 11/19/24 21:13 Dose: 1 mg Lorazepam (Lorazepam 0.5 Mg Tablet) 0.5 mg PO DAILY [facility] Last Admin: 11/19/24 08:10 Dose: 0.5 mg Lurasidone HCl (Lurasidone Hcl 20 Mg Tablet) 20 mg PO DAILY [facility] Last Admin: 11/19/24 08:10 Dose: 20 mg Magnesium Hydroxide (Milk Of Magnesia 30 Ml Oral.Susp) 30 ml PO DAILY PRN PRN Reason: Constipation Melatonin (Melatonin 3 Mg Tablet) 6 mg PO BEDTIME [facility] Last Admin: 11/19/24 21:16 Dose: 6 mg Memantine (Memantine Hcl 10 Mg Tablet) 10 mg PO DAILY [facility] Last Admin: 11/19/24 08:10 Dose: 10 mg Mirtazapine (Mirtazapine 15 Mg Tablet) 15 mg PO BEDTIME [facility] Last Admin: 11/19/24 21:16 Dose: 15 mg Propranolol HCl (Propranolol Hcl 10 Mg Tablet) 10 mg PO TID [facility]; Protocol Last Admin: 11/19/24 21:12 Dose: 10 mg Quetiapine Fumarate (Quetiapine Fumarate 25 Mg Tablet) 25 mg PO DAILY PRN PRN Reason: for anxiety Thiamine HCl (Thiamine Hcl 100 Mg Tablet) 100 mg PO BID [facility] Last Admin: 11/19/24 21:11 Dose: 100 mg Allergies Allergies Allergy/AdvReac Type Severity Reaction Status Date / Time risperidone [From Risperdal] Allergy Intermediate UNKNOWN Verified 11/08/24 13:12 Sulfa (Sulfonamide Allergy Intermediate rash Verified 11/08/24 13:12 Antibiotics) From BENADRYL Allergy Intermediate DIZZY Uncoded 11/08/24 13:12 Assessment & Plan Assessment & Plan (1) Major depressive disorder, recurrent severe without psychotic features: Status: Acute Code(s): F33.2 - Major depressive disorder, recurrent severe without psychotic features (2) Vascular dementia with anxiety: Status: Acute Code(s): F01.54 - Vascular dementia, unspecified severity, with anxiety (3) POONAM (generalized anxiety disorder): Status: Acute Code(s): F41.1 - Generalized anxiety disorder Plan Major depressive disorder/anxiety/dementia Continue with treatment per psychiatric team. Lumbar spondylosis, osteoarthritis Treatment with pramipexole t.i.d. Calcium carbonate b.i.d. Gabapentin 600 at bedtime for pain control Tylenol as needed History of hyperlipidemia Not on medications at this point, her recent blood work indicates values within normal limits Follow up with PCP History of hypothyroidism Not on medication at this point Recent TSH 2.18. Free T4 0.93 Thank you for allowing me to participate in the care of this patient. We will follow as needed, Please reconsult of any acute complaints or issues arise 11/11/2024 Continue lower dose mirtazapine gabapentin Seroquel tapered Vraylar 1.5 mg. Patient less depressed less anxious and agitated. Restlessness improved as combination of akathisia question restless leg question tardive dyskinesia. Dopamine agonist increased monitor mood monitor confusion 11/12/2024 Continue plan of care increase dopamine agonist as tolerated increased propranolol as tolerated 11/14/24 Pt with akathesia lower dopamine agonist hydoxyzine 25 hs mirtazapine 15 hs 11/15/24 seems better with hydrxyzine consider clonidine at hs for sleep akathesia did not tolerate inderal 20 tid lower seroquel 50 hs 11/17/24 doxepin 10 hs stop scheduled seroquel stop vraylar latuda 20 am 11/18 per staff appears to be sleeping, pt reports she is NOT sleeping. as per 11/15 note, will initiate trial of clonidine 0.1 mg at HS. 11/19 still can't sleep; will increase doxepin Patient educated on: diagnosis and medication risk/benefits Informed Consent: understands Reason for continued inpatient stay Substantial Risk for: rapid decompensation Time Spent With Patient Time: Total time managing care of this patient today ____ minutes.
[2024-11-20 08:35] VITALS: BP 110/56; PULSE 90; RESP 18; TEMP 36.7; O2SAT 97
[2024-11-20] MEDS: Propranolol HCL 10 MG TABLET PO ×3 (08:36→21:03)
[2024-11-20] MEDS: Cariprazine HCl 1.5 MG CAPSULE PO (08:37)
[2024-11-20] MEDS: Lurasidone HCl 20 MG TABLET PO (08:37)
[2024-11-20] MEDS: Memantine HCl 10 MG TABLET PO (08:37)
[2024-11-20] MEDS: Benztropine Mesylate 0.5 MG TABLET PO ×3 (08:37→21:02)
[2024-11-20] MEDS: LORazepam 0.5 MG TABLET PO (08:37)
[2024-11-20] MEDS: Folic Acid 1 MG TABLET PO (08:37)
[2024-11-20] MEDS: Thiamine HCL 100 MG TABLET PO ×2 (08:37→21:02)
--- NOTE | 2024-11-20 13:53 | P.PNPSI_ITS ---
Subjective Subjective Date of Service: 11/20/24 Reason For Visit: crisis Interim History: Met with patient; discussed with team Patient continues to say that she struggles with sleeping. Discussed medications and she agrees to increasing doxepin Mental Status Exam Mental Status Exam Patient Appearance: Appropriate Patient Orientation: Person, Place and Situation Level of Consciousness: Awake Patient Behavior: Talkative, Restless and Anxious Mood Description: Depressed and Apprehensive Affect Description: Apprehensive Patient Cognition Impaired: Yes Ability to Follow Directions: Fair Speech Pattern: Clear and Impoverished Memory Description: Episodic Impaired and Working Impaired Thought Content: positive for [place] Depressive Symptoms: Increased Anxiety and Increased Fatigue Judgement and Insight: Impaired Diagnostics Vital Signs (24Hr): Vital Signs - 24 hr 11/19/24 15:09 11/19/24 20:00 11/19/24 21:15 Temperature 98.9 F Pulse Rate 77 64 Respiratory Rate 16 Blood Pressure 117/64 111/56 L 130/77 Pulse Oximetry 95 Oxygen Delivery Method Room Air 11/20/24 08:35 Temperature 98.1 F Pulse Rate 90 Respiratory Rate 18 Blood Pressure 110/56 L Pulse Oximetry 97 Oxygen Delivery Method Room Air BMI result Body Mass Index 27.9 Labs 11/08/24 13:33 11/09/24 07:59 Medications Medications Current Medications Acetaminophen (Acetaminophen 325 Mg Tablet) 650 mg PO Q6H PRN PRN Reason: Headache/Pain, Scale 1-10 Al Hydroxide/Mg Hydroxide (Magnesium Hydrox/Alum Hydrox 30 Ml Oral.Susp) 30 ml PO Q6H PRN PRN Reason: Heartburn/Nausea Benztropine Mesylate (Benztropine Mesylate 0.5 Mg Tablet) 0.5 mg PO TID [facility] Last Admin: 11/20/24 08:37 Dose: 0.5 mg Cariprazine (Cariprazine Hcl 1.5 Mg Capsule) 1.5 mg PO DAILY [facility] Last Admin: 11/20/24 08:37 Dose: 1.5 mg Clonidine HCl (Clonidine Hcl 0.1 Mg Tablet) 0.1 mg PO BEDTIME [facility]; Protocol Last Admin: 11/19/24 21:15 Dose: 0.1 mg Donepezil HCl (Donepezil Hcl 10 Mg Tablet) 10 mg PO BEDTIME [facility] Last Admin: 11/19/24 21:13 Dose: 10 mg Doxepin HCl (Doxepin Hcl 10 Mg Capsule) 20 mg PO BEDTIME [facility] Folic Acid (Folic Acid 1 Mg Tablet) 1 mg PO DAILY [facility] Last Admin: 11/20/24 08:37 Dose: 1 mg Gabapentin (Gabapentin 300 Mg Capsule) 600 mg PO BEDTIME [facility] Last Admin: 11/19/24 21:14 Dose: 600 mg Hydroxyzine HCl (Hydroxyzine Hcl 25 Mg Tablet) 25 mg PO Q6H PRN PRN Reason: mild anxiety Hydroxyzine HCl (Hydroxyzine Hcl 25 Mg Tablet) 25 mg PO BEDTIME [facility] Last Admin: 11/19/24 21:12 Dose: 25 mg Lorazepam (Lorazepam 1 Mg Tablet) 1 mg PO BEDTIME [facility] Last Admin: 11/19/24 21:13 Dose: 1 mg Lorazepam (Lorazepam 0.5 Mg Tablet) 0.5 mg PO DAILY [facility] Last Admin: 11/20/24 08:37 Dose: 0.5 mg Lurasidone HCl (Lurasidone Hcl 20 Mg Tablet) 20 mg PO DAILY [facility] Last Admin: 11/20/24 08:37 Dose: 20 mg Magnesium Hydroxide (Milk Of Magnesia 30 Ml Oral.Susp) 30 ml PO DAILY PRN PRN Reason: Constipation Melatonin (Melatonin 3 Mg Tablet) 6 mg PO BEDTIME [facility] Last Admin: 11/19/24 21:16 Dose: 6 mg Memantine (Memantine Hcl 10 Mg Tablet) 10 mg PO DAILY [facility] Last Admin: 11/20/24 08:37 Dose: 10 mg Mirtazapine (Mirtazapine 15 Mg Tablet) 15 mg PO BEDTIME [facility] Last Admin: 11/19/24 21:16 Dose: 15 mg Propranolol HCl (Propranolol Hcl 10 Mg Tablet) 10 mg PO TID [facility]; Protocol Last Admin: 11/20/24 08:36 Dose: 10 mg Quetiapine Fumarate (Quetiapine Fumarate 25 Mg Tablet) 25 mg PO DAILY PRN PRN Reason: for anxiety Thiamine HCl (Thiamine Hcl 100 Mg Tablet) 100 mg PO BID [facility] Last Admin: 11/20/24 08:37 Dose: 100 mg Allergies Allergies Allergy/AdvReac Type Severity Reaction Status Date / Time risperidone [From Risperdal] Allergy Intermediate UNKNOWN Verified 11/08/24 13:12 Sulfa (Sulfonamide Allergy Intermediate rash Verified 11/08/24 13:12 Antibiotics) From BENADRYL Allergy Intermediate DIZZY Uncoded 11/08/24 13:12 Assessment & Plan Assessment & Plan (1) Major depressive disorder, recurrent severe without psychotic features: Status: Acute Code(s): F33.2 - Major depressive disorder, recurrent severe without psychotic features (2) Vascular dementia with anxiety: Status: Acute Code(s): F01.54 - Vascular dementia, unspecified severity, with anxiety (3) POONAM (generalized anxiety disorder): Status: Acute Code(s): F41.1 - Generalized anxiety disorder Plan Major depressive disorder/anxiety/dementia Continue with treatment per psychiatric team. Lumbar spondylosis, osteoarthritis Treatment with pramipexole t.i.d. Calcium carbonate b.i.d. Gabapentin 600 at bedtime for pain control Tylenol as needed History of hyperlipidemia Not on medications at this point, her recent blood work indicates values within normal limits Follow up with PCP History of hypothyroidism Not on medication at this point Recent TSH 2.18. Free T4 0.93 Thank you for allowing me to participate in the care of this patient. We will follow as needed, Please reconsult of any acute complaints or issues arise 11/11/2024 Continue lower dose mirtazapine gabapentin Seroquel tapered Vraylar 1.5 mg. Patient less depressed less anxious and agitated. Restlessness improved as combination of akathisia question restless leg question tardive dyskinesia. Dopamine agonist increased monitor mood monitor confusion 11/12/2024 Continue plan of care increase dopamine agonist as tolerated increased propranolol as tolerated 11/14/24 Pt with akathesia lower dopamine agonist hydoxyzine 25 hs mirtazapine 15 hs 11/15/24 seems better with hydrxyzine consider clonidine at hs for sleep akathesia did not tolerate inderal 20 tid lower seroquel 50 hs 11/17/24 doxepin 10 hs stop scheduled seroquel stop vraylar latuda 20 am 11/18 per staff appears to be sleeping, pt reports she is NOT sleeping. as per 11/15 note, will initiate trial of clonidine 0.1 mg at HS. 11/19 still can't sleep; will likely increase doxepin 11/20 Patient continues to say that she struggles with sleeping. Discussed medications and she agrees to increasing doxepin -increased to doxepin 20 mg q.h.s. Patient educated on: diagnosis and medication risk/benefits Informed Consent: understands Reason for continued inpatient stay Substantial Risk for: rapid decompensation Time Spent With Patient Time: Total time managing care of this patient today ____ minutes.
[2024-11-20 15:20] VITALS: BP 111/79; PULSE 71
[2024-11-20 20:00] VITALS: BP 118/60; PULSE 70; RESP 17; TEMP 36.3; O2SAT 96
[2024-11-20] MEDS: Donepezil HCl 10 MG TABLET PO (21:01)
[2024-11-20] MEDS: Melatonin 3 MG TABLET 6 MG PO (21:01)
[2024-11-20] MEDS: Gabapentin 300 MG CAPSULE 600 MG PO (21:02)
[2024-11-20] MEDS: LORazepam 1 MG TABLET PO (21:02)
[2024-11-20 21:03] VITALS: BP 117/56; PULSE 70
[2024-11-20] MEDS: Doxepin HCl 10 MG CAPSULE 20 MG PO (21:03)
[2024-11-20] MEDS: cloNIDine HCL 0.1 MG TABLET PO (21:05)
[2024-11-20] MEDS: hydrOXYzine HCL 25 MG TABLET PO (21:05)
[2024-11-20] MEDS: Mirtazapine 15 MG TABLET PO (21:06)
[2024-11-21 08:00] VITALS: BP 99/60; PULSE 79; RESP 16; TEMP 36.2; O2SAT 98
[2024-11-21] MEDS: Folic Acid 1 MG TABLET PO (09:14)
[2024-11-21] MEDS: LORazepam 0.5 MG TABLET PO (09:14)
[2024-11-21] MEDS: Memantine HCl 10 MG TABLET PO (09:14)
[2024-11-21] MEDS: Cariprazine HCl 1.5 MG CAPSULE PO (09:14)
[2024-11-21 09:15] VITALS: BP 99/60; PULSE 79
[2024-11-21] MEDS: Benztropine Mesylate 0.5 MG TABLET PO ×3 (09:15→19:57)
[2024-11-21] MEDS: Propranolol HCL 10 MG TABLET PO ×3 (09:15→19:57)
[2024-11-21] MEDS: Thiamine HCL 100 MG TABLET PO ×2 (09:16→19:57)
[2024-11-21] MEDS: Lurasidone HCl 20 MG TABLET PO (09:52)
[2024-11-21] MEDS: Acetaminophen 325 MG TABLET 650 MG PO (13:23)
--- NOTE | 2024-11-21 13:50 | HO.PSYCHPN ---
Subjective Subjective Date of Service: 11/21/24 Reason For Visit: crisis Interim History: anxious, says she isn't sleeping well at all. informed by MD we have done what we can do for her and to wait until Tamie returns tomorrow to discuss further interventions. pt is in agreement with this plan. per staff, reports lack of sleep but nursing reports 8hrs... Mental Status Exam Mental Status Exam Patient Appearance: Appropriate Patient Orientation: Person, Place and Situation Level of Consciousness: Awake Patient Behavior: Talkative, Restless and Anxious Behavior Comments: Some movement of of her legs Mood Description: Depressed and Apprehensive Affect Description: Apprehensive Patient Cognition Impaired: Yes Ability to Follow Directions: Fair Speech Pattern: Clear and Impoverished Memory Description: Episodic Impaired and Working Impaired Thought Content: positive for [place] Depressive Symptoms: Increased Anxiety and Increased Fatigue Diagnostics Vital Signs (24Hr): Vital Signs - 24 hr 11/20/24 15:20 11/20/24 20:00 11/20/24 21:03 Temperature 97.3 F Pulse Rate 71 70 70 Respiratory Rate 17 Blood Pressure 111/79 118/60 117/56 L Pulse Oximetry 96 Oxygen Delivery Method Room Air 11/21/24 08:00 11/21/24 09:15 Temperature 97.2 F Pulse Rate 79 79 Respiratory Rate 16 Blood Pressure 99/60 99/60 Pulse Oximetry 98 Oxygen Delivery Method Room Air BMI result Body Mass Index 27.9 Labs 11/08/24 13:33 11/09/24 07:59 Medications Medications Current Medications Acetaminophen (Acetaminophen 325 Mg Tablet) 650 mg PO Q6H PRN PRN Reason: Headache/Pain, Scale 1-10 Last Admin: 11/21/24 13:23 Dose: 650 mg Al Hydroxide/Mg Hydroxide (Magnesium Hydrox/Alum Hydrox 30 Ml Oral.Susp) 30 ml PO Q6H PRN PRN Reason: Heartburn/Nausea Benztropine Mesylate (Benztropine Mesylate 0.5 Mg Tablet) 0.5 mg PO TID [facility] Last Admin: 11/21/24 09:15 Dose: 0.5 mg Cariprazine (Cariprazine Hcl 1.5 Mg Capsule) 1.5 mg PO DAILY [facility] Last Admin: 11/21/24 09:14 Dose: 1.5 mg Clonidine HCl (Clonidine Hcl 0.1 Mg Tablet) 0.1 mg PO BEDTIME [facility]; Protocol Last Admin: 11/20/24 21:05 Dose: 0.1 mg Donepezil HCl (Donepezil Hcl 10 Mg Tablet) 10 mg PO BEDTIME [facility] Last Admin: 11/20/24 21:01 Dose: 10 mg Doxepin HCl (Doxepin Hcl 10 Mg Capsule) 20 mg PO BEDTIME [facility] Last Admin: 11/20/24 21:03 Dose: 20 mg Folic Acid (Folic Acid 1 Mg Tablet) 1 mg PO DAILY [facility] Last Admin: 11/21/24 09:14 Dose: 1 mg Gabapentin (Gabapentin 300 Mg Capsule) 600 mg PO BEDTIME [facility] Last Admin: 11/20/24 21:02 Dose: 600 mg Hydroxyzine HCl (Hydroxyzine Hcl 25 Mg Tablet) 25 mg PO Q6H PRN PRN Reason: mild anxiety Hydroxyzine HCl (Hydroxyzine Hcl 25 Mg Tablet) 25 mg PO BEDTIME [facility] Last Admin: 11/20/24 21:05 Dose: 25 mg Lorazepam (Lorazepam 1 Mg Tablet) 1 mg PO BEDTIME [facility] Last Admin: 11/20/24 21:02 Dose: 1 mg Lorazepam (Lorazepam 0.5 Mg Tablet) 0.5 mg PO DAILY [facility] Last Admin: 11/21/24 09:14 Dose: 0.5 mg Lurasidone HCl (Lurasidone Hcl 20 Mg Tablet) 20 mg PO DAILY [facility] Last Admin: 11/21/24 09:52 Dose: 20 mg Magnesium Hydroxide (Milk Of Magnesia 30 Ml Oral.Susp) 30 ml PO DAILY PRN PRN Reason: Constipation Melatonin (Melatonin 3 Mg Tablet) 6 mg PO BEDTIME [facility] Last Admin: 11/20/24 21:01 Dose: 6 mg Memantine (Memantine Hcl 10 Mg Tablet) 10 mg PO DAILY [facility] Last Admin: 11/21/24 09:14 Dose: 10 mg Mirtazapine (Mirtazapine 15 Mg Tablet) 15 mg PO BEDTIME [facility] Last Admin: 11/20/24 21:06 Dose: 15 mg Propranolol HCl (Propranolol Hcl 10 Mg Tablet) 10 mg PO TID [facility]; Protocol Last Admin: 11/21/24 09:15 Dose: 10 mg Quetiapine Fumarate (Quetiapine Fumarate 25 Mg Tablet) 25 mg PO DAILY PRN PRN Reason: for anxiety Thiamine HCl (Thiamine Hcl 100 Mg Tablet) 100 mg PO BID [facility] Last Admin: 11/21/24 09:16 Dose: 100 mg Allergies Allergies Allergy/AdvReac Type Severity Reaction Status Date / Time risperidone [From Risperdal] Allergy Intermediate UNKNOWN Verified 11/08/24 13:12 Sulfa (Sulfonamide Allergy Intermediate rash Verified 11/08/24 13:12 Antibiotics) From BENADRYL Allergy Intermediate DIZZY Uncoded 11/08/24 13:12 Assessment & Plan Assessment & Plan (1) Major depressive disorder, recurrent severe without psychotic features: Status: Acute Code(s): F33.2 - Major depressive disorder, recurrent severe without psychotic features (2) Vascular dementia with anxiety: Status: Acute Code(s): F01.54 - Vascular dementia, unspecified severity, with anxiety (3) POONAM (generalized anxiety disorder): Status: Acute Code(s): F41.1 - Generalized anxiety disorder Plan Major depressive disorder/anxiety/dementia Continue with treatment per psychiatric team. Lumbar spondylosis, osteoarthritis Treatment with pramipexole t.i.d. Calcium carbonate b.i.d. Gabapentin 600 at bedtime for pain control Tylenol as needed History of hyperlipidemia Not on medications at this point, her recent blood work indicates values within normal limits Follow up with PCP History of hypothyroidism Not on medication at this point Recent TSH 2.18. Free T4 0.93 Thank you for allowing me to participate in the care of this patient. We will follow as needed, Please reconsult of any acute complaints or issues arise 11/11/2024 Continue lower dose mirtazapine gabapentin Seroquel tapered Vraylar 1.5 mg. Patient less depressed less anxious and agitated. Restlessness improved as combination of akathisia question restless leg question tardive dyskinesia. Dopamine agonist increased monitor mood monitor confusion 11/12/2024 Continue plan of care increase dopamine agonist as tolerated increased propranolol as tolerated 11/14/24 Pt with akathesia lower dopamine agonist hydoxyzine 25 hs mirtazapine 15 hs 11/15/24 seems better with hydrxyzine consider clonidine at hs for sleep akathesia did not tolerate inderal 20 tid lower seroquel 50 hs 11/17/24 doxepin 10 hs stop scheduled seroquel stop vraylar latuda 20 am 11/18 per staff appears to be sleeping, pt reports she is NOT sleeping. as per 11/15 note, will initiate trial of clonidine 0.1 mg at HS. 11/19 still can't sleep; will likely increase doxepin 11/20 Patient continues to say that she struggles with sleeping. Discussed medications and she agrees to increasing doxepin -increased to doxepin 20 mg q.h.s. 11/21: c/o insomnia despite numerous and varied interventions. staff reporting pt appears to be sleeping 8 hours. no further changes today. continue current mgmt. Reason for continued inpatient stay Substantial Risk for: inability to function and rapid decompensation Time Spent With Patient Time: Total time managing care of this patient today ____ minutes.
[2024-11-21 15:58] VITALS: BP 156/68; PULSE 59
[2024-11-21 19:55] VITALS: BP 115/56; PULSE 60; RESP 16; TEMP 36.4; O2SAT 94
[2024-11-21 19:57] VITALS: BP 115/56; PULSE 60
[2024-11-21] MEDS: hydrOXYzine HCL 25 MG TABLET PO (19:57)
[2024-11-21] MEDS: cloNIDine HCL 0.1 MG TABLET PO (19:57)
[2024-11-21] MEDS: LORazepam 1 MG TABLET PO (19:58)
[2024-11-21] MEDS: Doxepin HCl 10 MG CAPSULE 20 MG PO (19:58)
[2024-11-21] MEDS: Melatonin 3 MG TABLET 6 MG PO (19:58)
[2024-11-21] MEDS: Gabapentin 300 MG CAPSULE 600 MG PO (20:03)
[2024-11-21] MEDS: Mirtazapine 15 MG TABLET PO (20:03)
[2024-11-21] MEDS: Donepezil HCl 10 MG TABLET PO (20:03)
[2024-11-22 08:00] VITALS: BP 96/60; PULSE 76; RESP 16; TEMP 36.9; O2SAT 96
[2024-11-22] MEDS: Thiamine HCL 100 MG TABLET PO ×2 (09:00→20:50)
[2024-11-22 09:01] VITALS: BP 96/60; PULSE 76
[2024-11-22] MEDS: Memantine HCl 10 MG TABLET PO (09:01)
[2024-11-22] MEDS: Lurasidone HCl 20 MG TABLET PO (09:01)
[2024-11-22] MEDS: LORazepam 0.5 MG TABLET PO (09:01)
[2024-11-22] MEDS: Cariprazine HCl 1.5 MG CAPSULE PO (09:01)
[2024-11-22] MEDS: Folic Acid 1 MG TABLET PO (09:01)
[2024-11-22] MEDS: Benztropine Mesylate 0.5 MG TABLET PO ×3 (09:01→20:50)
[2024-11-22] MEDS: Propranolol HCL 10 MG TABLET PO ×3 (09:01→20:49)
[2024-11-22] MEDS: hydrOXYzine HCL 25 MG TABLET PO ×2 (10:17→20:51)
[2024-11-22] MEDS: QUEtiapine Fumarate 25 MG TABLET PO (13:39)
--- NOTE | 2024-11-22 13:59 | P.PNPSI_ITS ---
Subjective Subjective Date of Service: 11/22/24 Reason For Visit: crisis Subjective Notes: Conditional Voluntary Interim History: Patient increasingly depressed at it anxious and distraught Medication Compliance: Intermittent Mental Status Exam Mental Status Exam Patient Appearance: Unkempt Patient Orientation: Person, Place and Situation Level of Consciousness: Awake Patient Behavior: Talkative, Restless and Anxious Behavior Comments: Pacing restless tearful agitated Mood Description: Depressed and Apprehensive Affect Description: Apprehensive Patient Cognition Impaired: Yes Ability to Follow Directions: Fair Speech Pattern: Clear and Impoverished Memory Description: Episodic Impaired and Working Impaired Thought Content: positive for [place] Depressive Symptoms: Increased Anxiety and Increased Fatigue Diagnostics Vital Signs (24Hr): Vital Signs - 24 hr 11/21/24 15:58 11/21/24 19:55 11/21/24 19:57 Temperature 97.5 F Pulse Rate 59 60 Respiratory Rate 16 Blood Pressure 156/68 H 115/56 L 115/56 L Pulse Oximetry 94 Oxygen Delivery Method Room Air 11/21/24 19:57 11/22/24 08:00 11/22/24 09:01 Temperature 98.4 F Pulse Rate 60 76 76 Respiratory Rate 16 Blood Pressure 115/56 L 96/60 96/60 Pulse Oximetry 96 Oxygen Delivery Method Room Air BMI result Body Mass Index 27.9 Labs 11/08/24 13:33 11/09/24 07:59 Medications Medications Current Medications Acetaminophen (Acetaminophen 325 Mg Tablet) 650 mg PO Q6H PRN PRN Reason: Headache/Pain, Scale 1-10 Last Admin: 11/21/24 13:23 Dose: 650 mg Al Hydroxide/Mg Hydroxide (Magnesium Hydrox/Alum Hydrox 30 Ml Oral.Susp) 30 ml PO Q6H PRN PRN Reason: Heartburn/Nausea Benztropine Mesylate (Benztropine Mesylate 0.5 Mg Tablet) 0.5 mg PO TID [facility]ARRY Last Admin: 11/22/24 09:01 Dose: 0.5 mg Cariprazine (Cariprazine Hcl 1.5 Mg Capsule) 1.5 mg PO DAILY [facility] Last Admin: 11/22/24 09:01 Dose: 1.5 mg Clonazepam (Clonazepam 0.5 Mg Tablet) 0.5 mg PO BID [facility] Clonidine HCl (Clonidine Hcl 0.1 Mg Tablet) 0.1 mg PO BEDTIME [facility]; Protocol Last Admin: 11/21/24 19:57 Dose: 0.1 mg Donepezil HCl (Donepezil Hcl 10 Mg Tablet) 10 mg PO BEDTIME [facility] Last Admin: 11/21/24 20:03 Dose: 10 mg Doxepin HCl (Doxepin Hcl 10 Mg Capsule) 20 mg PO BEDTIME [facility] Last Admin: 11/21/24 19:58 Dose: 20 mg Folic Acid (Folic Acid 1 Mg Tablet) 1 mg PO DAILY [facility] Last Admin: 11/22/24 09:01 Dose: 1 mg Gabapentin (Gabapentin 300 Mg Capsule) 600 mg PO BEDTIME [facility] Last Admin: 11/21/24 20:03 Dose: 600 mg Hydroxyzine HCl (Hydroxyzine Hcl 25 Mg Tablet) 25 mg PO Q6H PRN PRN Reason: mild anxiety Last Admin: 11/22/24 10:17 Dose: 25 mg Hydroxyzine HCl (Hydroxyzine Hcl 25 Mg Tablet) 25 mg PO BEDTIME [facility] Last Admin: 11/21/24 19:57 Dose: 25 mg Lorazepam (Lorazepam 1 Mg Tablet) 1 mg PO BEDTIME [facility] Last Admin: 11/21/24 19:58 Dose: 1 mg Lorazepam (Lorazepam 0.5 Mg Tablet) 0.5 mg PO DAILY [facility] Last Admin: 11/22/24 09:01 Dose: 0.5 mg Lurasidone HCl (Lurasidone Hcl 20 Mg Tablet) 20 mg PO DAILY [facility] Last Admin: 11/22/24 09:01 Dose: 20 mg Magnesium Hydroxide (Milk Of Magnesia 30 Ml Oral.Susp) 30 ml PO DAILY PRN PRN Reason: Constipation Melatonin (Melatonin 3 Mg Tablet) 6 mg PO BEDTIME [facility] Last Admin: 11/21/24 19:58 Dose: 6 mg Memantine (Memantine Hcl 10 Mg Tablet) 10 mg PO DAILY [facility] Last Admin: 11/22/24 09:01 Dose: 10 mg Mirtazapine (Mirtazapine 15 Mg Tablet) 15 mg PO BEDTIME [facility] Last Admin: 11/21/24 20:03 Dose: 15 mg Propranolol HCl (Propranolol Hcl 10 Mg Tablet) 10 mg PO TID [facility]; Protocol Last Admin: 11/22/24 09:01 Dose: 10 mg Quetiapine Fumarate (Quetiapine Fumarate 25 Mg Tablet) 25 mg PO DAILY PRN PRN Reason: for anxiety Last Admin: 11/22/24 13:39 Dose: 25 mg Thiamine HCl (Thiamine Hcl 100 Mg Tablet) 100 mg PO BID [facility] Last Admin: 11/22/24 09:00 Dose: 100 mg Allergies Allergies Allergy/AdvReac Type Severity Reaction Status Date / Time risperidone [From Risperdal] Allergy Intermediate UNKNOWN Verified 11/08/24 13:12 Sulfa (Sulfonamide Allergy Intermediate rash Verified 11/08/24 13:12 Antibiotics) From BENADRYL Allergy Intermediate DIZZY Uncoded 11/08/24 13:12 Assessment & Plan Assessment & Plan (1) Major depressive disorder, recurrent severe without psychotic features: Status: Acute Code(s): F33.2 - Major depressive disorder, recurrent severe without psychotic features (2) Vascular dementia with anxiety: Status: Acute Code(s): F01.54 - Vascular dementia, unspecified severity, with anxiety (3) POONAM (generalized anxiety disorder): Status: Acute Code(s): F41.1 - Generalized anxiety disorder Plan Major depressive disorder/anxiety/dementia Continue with treatment per psychiatric team. Lumbar spondylosis, osteoarthritis Treatment with pramipexole t.i.d. Calcium carbonate b.i.d. Gabapentin 600 at bedtime for pain control Tylenol as needed History of hyperlipidemia Not on medications at this point, her recent blood work indicates values within normal limits Follow up with PCP History of hypothyroidism Not on medication at this point Recent TSH 2.18. Free T4 0.93 Thank you for allowing me to participate in the care of this patient. We will follow as needed, Please reconsult of any acute complaints or issues arise 11/11/2024 Continue lower dose mirtazapine gabapentin Seroquel tapered Vraylar 1.5 mg. Patient less depressed less anxious and agitated. Restlessness improved as combination of akathisia question restless leg question tardive dyskinesia. Dopamine agonist increased monitor mood monitor confusion 11/12/2024 Continue plan of care increase dopamine agonist as tolerated increased propranolol as tolerated 11/14/24 Pt with akathesia lower dopamine agonist hydoxyzine 25 hs mirtazapine 15 hs 11/15/24 seems better with hydrxyzine consider clonidine at hs for sleep akathesia did not tolerate inderal 20 tid lower seroquel 50 hs 11/17/24 doxepin 10 hs stop scheduled seroquel stop vraylar latuda 20 am 11/18 per staff appears to be sleeping, pt reports she is NOT sleeping. as per 11/15 note, will initiate trial of clonidine 0.1 mg at HS. 11/19 still can't sleep; will likely increase doxepin 11/20 Patient continues to say that she struggles with sleeping. Discussed medications and she agrees to increasing doxepin -increased to doxepin 20 mg q.h.s. 11/21: c/o insomnia despite numerous and varied interventions. staff reporting pt appears to be sleeping 8 hours. no further changes today. continue current mgmt. 11/22/2024 Patient agitated careful distraught and restless. Stop Vraylar Latuda 20 mg. Lorazepam Klonopin 0.5 mg b.i.d. Reason for continued inpatient stay Substantial Risk for: inability to function and rapid decompensation Time Spent With Patient Time: Total time managing care of this patient today ____ minutes.
[2024-11-22 14:12] VITALS: BP 118/71; PULSE 70
[2024-11-22] MEDS: clonazePAM 0.5 MG TABLET PO ×2 (14:13→20:49)
[2024-11-22 20:00] VITALS: BP 114/56; PULSE 61; RESP 18; TEMP 36.3; O2SAT 98
[2024-11-22 20:48] VITALS: BP 114/56
[2024-11-22] MEDS: cloNIDine HCL 0.1 MG TABLET PO (20:48)
[2024-11-22 20:49] VITALS: BP 114/56; PULSE 61
[2024-11-22] MEDS: Donepezil HCl 10 MG TABLET PO (20:49)
[2024-11-22] MEDS: Gabapentin 300 MG CAPSULE 600 MG PO (20:49)
[2024-11-22] MEDS: Mirtazapine 15 MG TABLET PO (20:49)
[2024-11-22] MEDS: Doxepin HCl 10 MG CAPSULE 20 MG PO (20:49)
[2024-11-22] MEDS: Melatonin 3 MG TABLET 6 MG PO (20:51)
[2024-11-23 07:50] VITALS: BP 96/58; PULSE 70; RESP 20; TEMP 36.2; O2SAT 98
[2024-11-23] MEDS: Propranolol HCL 10 MG TABLET PO ×3 (07:52→21:14)
[2024-11-23] MEDS: Folic Acid 1 MG TABLET PO (07:52)
[2024-11-23] MEDS: Thiamine HCL 100 MG TABLET PO ×2 (07:52→21:15)
[2024-11-23] MEDS: Benztropine Mesylate 0.5 MG TABLET PO ×3 (07:53→21:15)
[2024-11-23] MEDS: Lurasidone HCl 20 MG TABLET PO (07:53)
[2024-11-23] MEDS: Memantine HCl 10 MG TABLET PO (07:53)
[2024-11-23] MEDS: clonazePAM 0.5 MG TABLET PO ×2 (07:53→21:15)
--- NOTE | 2024-11-23 09:31 | P.PNPSI_ITS ---
Subjective Subjective Date of Service: 11/23/24 Reason For Visit: Severe depression agitation Subjective Notes: Conditional Voluntary Interim History: Patient seen psychiatric follow-up. Patient anxious dysphoric easily agitated still complains of difficulty with insomnia. Remains depressed anxious difficulty with integration attention Mental Status Exam Mental Status Exam Patient Appearance: Unkempt Patient Orientation: Person, Place and Situation Level of Consciousness: Awake Patient Behavior: Talkative, Restless and Anxious Behavior Comments: Pacing restless tearful agitated Mood Description: Depressed and Apprehensive Affect Description: Apprehensive Patient Cognition Impaired: Yes Ability to Follow Directions: Fair Speech Pattern: Clear and Impoverished Memory Description: Episodic Impaired and Working Impaired Thought Content: positive for [place] Depressive Symptoms: Increased Anxiety and Increased Fatigue Diagnostics Vital Signs (24Hr): Vital Signs - 24 hr 11/22/24 14:12 11/22/24 20:00 11/22/24 20:48 Temperature 97.3 F Pulse Rate 70 61 Respiratory Rate 18 Blood Pressure 118/71 114/56 L 114/56 L Pulse Oximetry 98 Oxygen Delivery Method Room Air 11/22/24 20:49 11/23/24 07:50 Temperature 97.2 F Pulse Rate 61 70 Respiratory Rate 20 Blood Pressure 114/56 L 96/58 L Pulse Oximetry 98 Oxygen Delivery Method Room Air BMI result Body Mass Index 27.9 Labs 11/08/24 13:33 11/09/24 07:59 Medications Medications Current Medications Acetaminophen (Acetaminophen 325 Mg Tablet) 650 mg PO Q6H PRN PRN Reason: Headache/Pain, Scale 1-10 Last Admin: 11/21/24 13:23 Dose: 650 mg Al Hydroxide/Mg Hydroxide (Magnesium Hydrox/Alum Hydrox 30 Ml Oral.Susp) 30 ml PO Q6H PRN PRN Reason: Heartburn/Nausea Benztropine Mesylate (Benztropine Mesylate 0.5 Mg Tablet) 0.5 mg PO TID [facility]ARRY Last Admin: 11/23/24 07:53 Dose: 0.5 mg Clonazepam (Clonazepam 0.5 Mg Tablet) 0.5 mg PO BID [facility] Last Admin: 11/23/24 07:53 Dose: 0.5 mg Clonidine HCl (Clonidine Hcl 0.1 Mg Tablet) 0.1 mg PO BEDTIME [facility]; Protocol Last Admin: 11/22/24 20:48 Dose: 0.1 mg Donepezil HCl (Donepezil Hcl 10 Mg Tablet) 10 mg PO BEDTIME [facility] Last Admin: 11/22/24 20:49 Dose: 10 mg Doxepin HCl (Doxepin Hcl 10 Mg Capsule) 20 mg PO BEDTIME [facility] Last Admin: 11/22/24 20:49 Dose: 20 mg Folic Acid (Folic Acid 1 Mg Tablet) 1 mg PO DAILY [facility] Last Admin: 11/23/24 07:52 Dose: 1 mg Gabapentin (Gabapentin 300 Mg Capsule) 600 mg PO BEDTIME [facility] Last Admin: 11/22/24 20:49 Dose: 600 mg Hydroxyzine HCl (Hydroxyzine Hcl 25 Mg Tablet) 25 mg PO Q6H PRN PRN Reason: mild anxiety Last Admin: 11/22/24 10:17 Dose: 25 mg Hydroxyzine HCl (Hydroxyzine Hcl 25 Mg Tablet) 25 mg PO BEDTIME [facility] Last Admin: 11/22/24 20:51 Dose: 25 mg Lurasidone HCl (Lurasidone Hcl 20 Mg Tablet) 20 mg PO DAILY [facility] Last Admin: 11/23/24 07:53 Dose: 20 mg Magnesium Hydroxide (Milk Of Magnesia 30 Ml Oral.Susp) 30 ml PO DAILY PRN PRN Reason: Constipation Melatonin (Melatonin 3 Mg Tablet) 6 mg PO BEDTIME [facility] Last Admin: 11/22/24 20:51 Dose: 6 mg Memantine (Memantine Hcl 10 Mg Tablet) 10 mg PO DAILY [facility] Last Admin: 11/23/24 07:53 Dose: 10 mg Mirtazapine (Mirtazapine 15 Mg Tablet) 15 mg PO BEDTIME [facility] Last Admin: 11/22/24 20:49 Dose: 15 mg Propranolol HCl (Propranolol Hcl 10 Mg Tablet) 10 mg PO TID [facility]; Protocol Last Admin: 11/23/24 07:52 Dose: 10 mg Quetiapine Fumarate (Quetiapine Fumarate 25 Mg Tablet) 25 mg PO DAILY PRN PRN Reason: for anxiety Last Admin: 11/22/24 13:39 Dose: 25 mg Thiamine HCl (Thiamine Hcl 100 Mg Tablet) 100 mg PO BID [facility] Last Admin: 11/23/24 07:52 Dose: 100 mg Allergies Allergies Allergy/AdvReac Type Severity Reaction Status Date / Time risperidone (From Risperdal) Allergy Intermediate UNKNOWN Verified 11/08/24 13:12 Sulfa (Sulfonamide Allergy Intermediate rash Verified 11/08/24 13:12 Antibiotics) From BENADRYL Allergy Intermediate DIZZY Uncoded 11/08/24 13:12 Assessment & Plan Assessment & Plan (1) Major depressive disorder, recurrent severe without psychotic features: Status: Acute Code(s): F33.2 - Major depressive disorder, recurrent severe without psychotic features (2) Vascular dementia with anxiety: Status: Acute Code(s): F01.54 - Vascular dementia, unspecified severity, with anxiety (3) POONAM (generalized anxiety disorder): Status: Acute Code(s): F41.1 - Generalized anxiety disorder Plan Major depressive disorder/anxiety/dementia Continue with treatment per psychiatric team. Lumbar spondylosis, osteoarthritis Treatment with pramipexole t.i.d. Calcium carbonate b.i.d. Gabapentin 600 at bedtime for pain control Tylenol as needed History of hyperlipidemia Not on medications at this point, her recent blood work indicates values within normal limits Follow up with PCP History of hypothyroidism Not on medication at this point Recent TSH 2.18. Free T4 0.93 Thank you for allowing me to participate in the care of this patient. We will follow as needed, Please reconsult of any acute complaints or issues arise 11/11/2024 Continue lower dose mirtazapine gabapentin Seroquel tapered Vraylar 1.5 mg. Patient less depressed less anxious and agitated. Restlessness improved as combination of akathisia question restless leg question tardive dyskinesia. Dopamine agonist increased monitor mood monitor confusion 11/12/2024 Continue plan of care increase dopamine agonist as tolerated increased propranolol as tolerated 11/14/24 Pt with akathesia lower dopamine agonist hydoxyzine 25 hs mirtazapine 15 hs 11/15/24 seems better with hydrxyzine consider clonidine at hs for sleep akathesia did not tolerate inderal 20 tid lower seroquel 50 hs 11/17/24 doxepin 10 hs stop scheduled seroquel stop vraylar latuda 20 am 11/18 per staff appears to be sleeping, pt reports she is NOT sleeping. as per 11/15 note, will initiate trial of clonidine 0.1 mg at HS. 11/19 still can't sleep; will likely increase doxepin 11/20 Patient continues to say that she struggles with sleeping. Discussed medications and she agrees to increasing doxepin -increased to doxepin 20 mg q.h.s. 11/21: c/o insomnia despite numerous and varied interventions. staff reporting pt appears to be sleeping 8 hours. no further changes today. continue current mgmt. 11/22/2024 Patient agitated careful distraught and restless. Stop Vraylar Latuda 20 mg. Lorazepam Klonopin 0.5 mg b.i.d. 11/23/2024 Vraylar discontinued patient on Latuda reportedly sleeping but complains of difficulty with sleep Patient educated on: medication risk/benefits Informed Consent: further education needed Reason for continued inpatient stay Substantial Risk for: inability to function, rapid decompensation and med/psych decompensation Time Spent With Patient Time: Total time managing care of this patient today ____ minutes.
[2024-11-23 14:16] LABS: Appearance Urine Clear; Color Urine Yellow; Glucose Urine UA Negative (Negative); Leukocyte Esterase Urine Large (3+) (Negative); Nitrite Urine Negative (Negative); PH 6.5 (5.0-9.0); Specific Gravity - Urine <= 1.005 (1.005-1.025); UMIC TRIGGER UACC YES; Urine Blood Negative (Negative); Urine Ketones Negative (Negative); Urine Protein Negative (Neg-Trace)
[2024-11-23 14:18] LABS: Bacteria Urine None Seen (None Seen); Hyaline Casts Urine 0-2 /LPF (0-2); RBC Urine 0-2 /HPF (0-2); Squamous Epithelial Cell Urine 0-2 /HPF (0-2); UACC Culture Trigger YES; WBC Urine 21-50 /HPF (0-5)
[2024-11-23 14:31] VITALS: BP 121/53; PULSE 64
[2024-11-23 20:00] VITALS: BP 107/59; PULSE 61; RESP 18; TEMP 36.3; O2SAT 97
[2024-11-23] MEDS: Melatonin 3 MG TABLET 6 MG PO (21:14)
[2024-11-23] MEDS: Doxepin HCl 10 MG CAPSULE 20 MG PO (21:14)
[2024-11-23] MEDS: Mirtazapine 15 MG TABLET PO (21:15)
[2024-11-23] MEDS: Donepezil HCl 10 MG TABLET PO (21:15)
[2024-11-23] MEDS: cloNIDine HCL 0.1 MG TABLET PO (21:15)
[2024-11-23] MEDS: hydrOXYzine HCL 25 MG TABLET PO (21:15)
[2024-11-23] MEDS: Gabapentin 300 MG CAPSULE 600 MG PO (21:20)
[2024-11-24 08:00] VITALS: BP 95/51; PULSE 71; RESP 18; TEMP 36.6; O2SAT 98
[2024-11-24] MEDS: Benztropine Mesylate 0.5 MG TABLET PO ×3 (08:52→20:19)
[2024-11-24] MEDS: Thiamine HCL 100 MG TABLET PO ×2 (08:52→20:20)
[2024-11-24] MEDS: clonazePAM 0.5 MG TABLET PO (08:53)
[2024-11-24] MEDS: Folic Acid 1 MG TABLET PO (08:53)
[2024-11-24] MEDS: Lurasidone HCl 20 MG TABLET PO (08:53)
[2024-11-24] MEDS: Memantine HCl 10 MG TABLET PO (08:53)
[2024-11-24 09:25] VITALS: BP 90/51; PULSE 56
--- NOTE | 2024-11-24 09:33 | PC.NURSE ---
Propranolol held d/t decreased BP. Pt denies dizziness. Fluids encouraged and given. Dr Willett notified in person.
[2024-11-24 13:47] VITALS: BMI 28.8
[2024-11-24] MEDS: Pramipexole Di-HCL 0.25 MG TABLET PO (15:18)
[2024-11-24] MEDS: Propranolol HCL 10 MG TABLET PO ×2 (15:19→21:06)
[2024-11-24 15:21] VITALS: BP 127/70; PULSE 70; RESP 18; O2SAT 99
[2024-11-24 19:58] VITALS: BP 115/58; PULSE 66; RESP 16; TEMP 2.4; TEMP 36.4; O2SAT 96
[2024-11-24] MEDS: Melatonin 3 MG TABLET 6 MG PO (20:17)
[2024-11-24] MEDS: Doxepin HCl 10 MG CAPSULE 20 MG PO (20:18)
[2024-11-24] MEDS: clonazePAM 0.5 MG TABLET 0.75 MG PO (20:18)
[2024-11-24] MEDS: Donepezil HCl 10 MG TABLET PO (20:20)
[2024-11-24] MEDS: Mirtazapine 15 MG TABLET PO (20:20)
[2024-11-24] MEDS: hydrOXYzine HCL 25 MG TABLET PO (20:20)
[2024-11-24] MEDS: Gabapentin 300 MG CAPSULE PO (20:20)
[2024-11-24 21:06] VITALS: BP 100/50; PULSE 74
--- NOTE | 2024-11-24 23:26 | HO.PSYCHPN ---
Subjective Subjective Date of Service: 11/24/24 Reason For Visit: Severe depression agitation Subjective Notes: Conditional Voluntary Interim History: Patient depressed withdrawn still complains of insomnia and fatigue when encouraged the lease her room and more alert Medication Compliance: Yes Mental Status Exam Mental Status Exam Patient Appearance: Unkempt Patient Orientation: Person, Place and Situation Level of Consciousness: Awake Patient Behavior: Talkative, Restless and Anxious Behavior Comments: Cooperative somewhat isolated Mood Description: Depressed and Apprehensive Affect Description: Apprehensive Patient Cognition Impaired: Yes Ability to Follow Directions: Fair Speech Pattern: Clear and Impoverished Memory Description: Episodic Impaired and Working Impaired Thought Content: positive for [place] Depressive Symptoms: Increased Anxiety and Increased Fatigue Judgement and Insight: No hallucinations or delusional material cooperative Diagnostics Vital Signs (24Hr): Vital Signs - 24 hr 11/24/24 08:00 11/24/24 09:25 11/24/24 15:21 Temperature 97.9 F Pulse Rate 71 56 70 Respiratory Rate 18 18 Blood Pressure 95/51 L 90/51 L 127/70 Pulse Oximetry 98 99 Oxygen Delivery Method Room Air Room Air 11/24/24 19:58 11/24/24 21:06 Temperature 36.4 F L Pulse Rate 66 74 Respiratory Rate 16 Blood Pressure 115/58 L 100/50 L Pulse Oximetry 96 Oxygen Delivery Method Room Air BMI result Body Mass Index 28.8 Labs 11/08/24 13:33 11/09/24 07:59 Labs: Laboratory Results - last 48 hr 11/23/24 14:08 Urine Color Yellow Urine Appearance Clear Urine pH 6.5 Ur Specific [place] <= 1.005 Urine Protein Negative Urine Glucose (UA) Negative Urine Ketones Negative Urine Blood Negative Urine Nitrite Negative Ur Leukocyte Esterase Large (3+) H Urine RBC 0-2 Urine WBC 21-50 H Ur Squamous Epith Cells 0-2 Urine Bacteria None Seen Hyaline Casts 0-2 Medications Medications Current Medications Acetaminophen (Acetaminophen 325 Mg Tablet) 650 mg PO Q6H PRN PRN Reason: Headache/Pain, Scale 1-10 Last Admin: 11/21/24 13:23 Dose: 650 mg Al Hydroxide/Mg Hydroxide (Magnesium Hydrox/Alum Hydrox 30 Ml Oral.Susp) 30 ml PO Q6H PRN PRN Reason: Heartburn/Nausea Benztropine Mesylate (Benztropine Mesylate 0.5 Mg Tablet) 0.5 mg PO TID BARRY Last Admin: 11/24/24 20:19 Dose: 0.5 mg Clonazepam (Clonazepam 0.5 Mg Tablet) 0.75 mg PO BEDTIME B[facility]Y Last Admin: 11/24/24 20:18 Dose: 0.75 mg Donepezil HCl (Donepezil Hcl 10 Mg Tablet) 10 mg PO BEDTIME [facility] Last Admin: 11/24/24 20:20 Dose: 10 mg Doxepin HCl (Doxepin Hcl 10 Mg Capsule) 20 mg PO BEDTIME [facility] Last Admin: 11/24/24 20:18 Dose: 20 mg Folic Acid (Folic Acid 1 Mg Tablet) 1 mg PO DAILY [facility] Last Admin: 11/24/24 08:53 Dose: 1 mg Gabapentin (Gabapentin 300 Mg Capsule) 300 mg PO BEDTIME [facility]Y Last Admin: 11/24/24 20:20 Dose: 300 mg Hydroxyzine HCl (Hydroxyzine Hcl 25 Mg Tablet) 25 mg PO Q6H PRN PRN Reason: mild anxiety Last Admin: 11/22/24 10:17 Dose: 25 mg Hydroxyzine HCl (Hydroxyzine Hcl 25 Mg Tablet) 25 mg PO BEDTIME [facility]Y Last Admin: 11/24/24 20:20 Dose: 25 mg Lurasidone HCl (Lurasidone Hcl 20 Mg Tablet) 20 mg PO DAILY [facility] Last Admin: 11/24/24 08:53 Dose: 20 mg Magnesium Hydroxide (Milk Of Magnesia 30 Ml Oral.Susp) 30 ml PO DAILY PRN PRN Reason: Constipation Melatonin (Melatonin 3 Mg Tablet) 6 mg PO BEDTIME BARRY Last Admin: 11/24/24 20:17 Dose: 6 mg Memantine (Memantine Hcl 10 Mg Tablet) 10 mg PO DAILY [facility] Last Admin: 11/24/24 08:53 Dose: 10 mg Mirtazapine (Mirtazapine 15 Mg Tablet) 15 mg PO BEDTIME BARRY Last Admin: 11/24/24 20:20 Dose: 15 mg Propranolol HCl (Propranolol Hcl 10 Mg Tablet) 10 mg PO TID [facility]; Protocol Last Admin: 11/24/24 21:06 Dose: 10 mg Quetiapine Fumarate (Quetiapine Fumarate 25 Mg Tablet) 25 mg PO DAILY PRN PRN Reason: for anxiety Last Admin: 11/22/24 13:39 Dose: 25 mg Thiamine HCl (Thiamine Hcl 100 Mg Tablet) 100 mg PO BID [facility] Last Admin: 11/24/24 20:20 Dose: 100 mg Vortioxetine (Vortioxetine Hydrobromide 5 Mg Tablet) 5 mg PO DAILY B[facility]Y Allergies Allergies Allergy/AdvReac Type Severity Reaction Status Date / Time risperidone (From Risperdal) Allergy Intermediate UNKNOWN Verified 11/08/24 13:12 Sulfa (Sulfonamide Allergy Intermediate rash Verified 11/08/24 13:12 Antibiotics) From BENADRYL Allergy Intermediate DIZZY Uncoded 11/08/24 13:12 Assessment & Plan Assessment & Plan (1) Major depressive disorder, recurrent severe without psychotic features: Status: Acute Code(s): F33.2 - Major depressive disorder, recurrent severe without psychotic features (2) Vascular dementia with anxiety: Status: Acute Code(s): F01.54 - Vascular dementia, unspecified severity, with anxiety (3) POONAM (generalized anxiety disorder): Status: Acute Code(s): F41.1 - Generalized anxiety disorder Plan Major depressive disorder/anxiety/dementia Continue with treatment per psychiatric team. Lumbar spondylosis, osteoarthritis Treatment with pramipexole t.i.d. Calcium carbonate b.i.d. Gabapentin 600 at bedtime for pain control Tylenol as needed History of hyperlipidemia Not on medications at this point, her recent blood work indicates values within normal limits Follow up with PCP History of hypothyroidism Not on medication at this point Recent TSH 2.18. Free T4 0.93 Thank you for allowing me to participate in the care of this patient. We will follow as needed, Please reconsult of any acute complaints or issues arise 11/11/2024 Continue lower dose mirtazapine gabapentin Seroquel tapered Vraylar 1.5 mg. Patient less depressed less anxious and agitated. Restlessness improved as combination of akathisia question restless leg question tardive dyskinesia. Dopamine agonist increased monitor mood monitor confusion 11/12/2024 Continue plan of care increase dopamine agonist as tolerated increased propranolol as tolerated 11/14/24 Pt with akathesia lower dopamine agonist hydoxyzine 25 hs mirtazapine 15 hs 11/15/24 seems better with hydrxyzine consider clonidine at hs for sleep akathesia did not tolerate inderal 20 tid lower seroquel 50 hs 11/17/24 doxepin 10 hs stop scheduled seroquel stop vraylar latuda 20 am 11/18 per staff appears to be sleeping, pt reports she is NOT sleeping. as per 11/15 note, will initiate trial of clonidine 0.1 mg at HS. 11/19 still can't sleep; will likely increase doxepin 11/20 Patient continues to say that she struggles with sleeping. Discussed medications and she agrees to increasing doxepin -increased to doxepin 20 mg q.h.s. 11/21: c/o insomnia despite numerous and varied interventions. staff reporting pt appears to be sleeping 8 hours. no further changes today. continue current mgmt. 11/22/2024 Patient agitated careful distraught and restless. Stop Vraylar Latuda 20 mg. Lorazepam Klonopin 0.5 mg b.i.d. 11/23/2024 Vraylar discontinued patient on Latuda reportedly sleeping but complains of difficulty with sleep 11/24/2024 Consider Rexulti if Latuda not effective or Trintellix 5 mg in the morning for depressive symptoms lower gabapentin from 600 mg 300 mg at bedtime secondary to lack of efficacy efficacy for insomnia morning sedation. Discontinue A.m. clonazepam Reason for continued inpatient stay Substantial Risk for: inability to function, rapid decompensation and med/psych decompensation Time Spent With Patient Time: Total time managing care of this patient today ____ minutes.
[2024-11-25 08:00] VITALS: BP 127/58; PULSE 75; RESP 18; TEMP 36.4; O2SAT 97
[2024-11-25 08:19] VITALS: BP 127/58; PULSE 75
[2024-11-25] MEDS: Propranolol HCL 10 MG TABLET PO ×3 (08:19→21:02)
[2024-11-25] MEDS: Vortioxetine Hydrobromide 5 MG TABLET PO (08:19)
[2024-11-25] MEDS: Thiamine HCL 100 MG TABLET PO ×2 (08:20→21:03)
[2024-11-25] MEDS: Memantine HCl 10 MG TABLET PO (08:20)
[2024-11-25] MEDS: Folic Acid 1 MG TABLET PO (08:20)
[2024-11-25] MEDS: Lurasidone HCl 20 MG TABLET PO (08:20)
[2024-11-25] MEDS: Benztropine Mesylate 0.5 MG TABLET PO ×3 (08:20→21:01)
[2024-11-25] MEDS: hydrOXYzine HCL 25 MG TABLET PO ×2 (13:24→21:03)
--- NOTE | 2024-11-25 14:52 | HO.PSYCHPN ---
Subjective Subjective Date of Service: 11/25/24 Reason For Visit: Severe depression agitation Subjective Notes: Conditional Voluntary Interim History: Patient with ongoing irritability dysphoria restlessness and anxiety. Complains of difficulty with sleep yet when seen seems to be asleep. Patient depressed anxious difficulty processing information UA pending Mental Status Exam Mental Status Exam Patient Appearance: Appropriate Patient Orientation: Person, Place and Situation Level of Consciousness: Alert Patient Behavior: Appropriate, Talkative, Cooperative and Good Eye Contact Mood Description: Calm Affect Description: Calm Patient Cognition Impaired: Yes Ability to Follow Directions: Good Speech Pattern: Spontaneous Speech Memory Description: Remote Impaired Hallucinations: None Delusions: Not Present Thought Process: Confusion Thought Content: positive for [place] and positive for Circumstantial Judgement: Fair Diagnostics Vital Signs (24Hr): Vital Signs - 24 hr 11/24/24 15:21 11/24/24 19:58 11/24/24 21:06 Temperature 36.4 F L Pulse Rate 70 66 74 Respiratory Rate 18 16 Blood Pressure 127/70 115/58 L 100/50 L Pulse Oximetry 99 96 Oxygen Delivery Method Room Air Room Air 11/25/24 08:00 11/25/24 08:19 Temperature 97.5 F Pulse Rate 75 75 Respiratory Rate 18 Blood Pressure 127/58 L 127/58 L Pulse Oximetry 97 Oxygen Delivery Method Room Air BMI result Body Mass Index 28.8 Labs 11/08/24 13:33 11/09/24 07:59 Medications Medications Current Medications Acetaminophen (Acetaminophen 325 Mg Tablet) 650 mg PO Q6H PRN PRN Reason: Headache/Pain, Scale 1-10 Last Admin: 11/21/24 13:23 Dose: 650 mg Al Hydroxide/Mg Hydroxide (Magnesium Hydrox/Alum Hydrox 30 Ml Oral.Susp) 30 ml PO Q6H PRN PRN Reason: Heartburn/Nausea Benztropine Mesylate (Benztropine Mesylate 0.5 Mg Tablet) 0.5 mg PO TID BARRY Last Admin: 11/25/24 08:20 Dose: 0.5 mg Clonazepam (Clonazepam 0.5 Mg Tablet) 0.75 mg PO BEDTIME BARRY Last Admin: 11/24/24 20:18 Dose: 0.75 mg Donepezil HCl (Donepezil Hcl 10 Mg Tablet) 10 mg PO BEDTIME BARRY Last Admin: 11/24/24 20:20 Dose: 10 mg Doxepin HCl (Doxepin Hcl 10 Mg Capsule) 20 mg PO BEDTIME COUNTS INCLUDE 234 BEDS AT [facility] Last Admin: 11/24/24 20:18 Dose: 20 mg Folic Acid (Folic Acid 1 Mg Tablet) 1 mg PO DAILY COUNTS INCLUDE 234 BEDS AT [facility] Last Admin: 11/25/24 08:20 Dose: 1 mg Gabapentin (Gabapentin 300 Mg Capsule) 300 mg PO BEDTIME BARRY Last Admin: 11/24/24 20:20 Dose: 300 mg Hydroxyzine HCl (Hydroxyzine Hcl 25 Mg Tablet) 25 mg PO Q6H PRN PRN Reason: mild anxiety Last Admin: 11/25/24 13:24 Dose: 25 mg Hydroxyzine HCl (Hydroxyzine Hcl 25 Mg Tablet) 25 mg PO BEDTIME BARRY Last Admin: 11/24/24 20:20 Dose: 25 mg Lurasidone HCl (Lurasidone Hcl 20 Mg Tablet) 20 mg PO DAILY COUNTS INCLUDE 234 BEDS AT [facility] Last Admin: 11/25/24 08:20 Dose: 20 mg Magnesium Hydroxide (Milk Of Magnesia 30 Ml Oral.Susp) 30 ml PO DAILY PRN PRN Reason: Constipation Melatonin (Melatonin 3 Mg Tablet) 6 mg PO BEDTIME BARRY Last Admin: 11/24/24 20:17 Dose: 6 mg Memantine (Memantine Hcl 10 Mg Tablet) 10 mg PO DAILY COUNTS [facility]CLUDE 234 BEDS AT [facility] Last Admin: 11/25/24 08:20 Dose: 10 mg Mirtazapine (Mirtazapine 15 Mg Tablet) 15 mg PO BEDTIME BARRY Last Admin: 11/24/24 20:20 Dose: 15 mg Propranolol HCl (Propranolol Hcl 10 Mg Tablet) 10 mg PO TID COUNTS [facility]CLUDE 234 BEDS AT [facility]; Protocol Last Admin: 11/25/24 08:19 Dose: 10 mg Quetiapine Fumarate (Quetiapine Fumarate 25 Mg Tablet) 25 mg PO DAILY PRN PRN Reason: for anxiety Last Admin: 11/22/24 13:39 Dose: 25 mg Thiamine HCl (Thiamine Hcl 100 Mg Tablet) 100 mg PO BID COUNTS [facility]CLUDE 234 BEDS AT [facility] Last Admin: 11/25/24 08:20 Dose: 100 mg Vortioxetine (Vortioxetine Hydrobromide 5 Mg Tablet) 5 mg PO DAILY COUNTS INCLUDE 234 BEDS AT [facility] Last Admin: 11/25/24 08:19 Dose: 5 mg Allergies Allergies Allergy/AdvReac Type Severity Reaction Status Date / Time risperidone (From Risperdal) Allergy Intermediate UNKNOWN Verified 11/08/24 13:12 Sulfa (Sulfonamide Allergy Intermediate rash Verified 11/08/24 13:12 Antibiotics) From BENADRYL Allergy Intermediate DIZZY Uncoded 11/08/24 13:12 Assessment & Plan Assessment & Plan (1) Major depressive disorder, recurrent severe without psychotic features: Status: Acute Code(s): F33.2 - Major depressive disorder, recurrent severe without psychotic features (2) Vascular dementia with anxiety: Status: Acute Code(s): F01.54 - Vascular dementia, unspecified severity, with anxiety (3) POONAM (generalized anxiety disorder): Status: Acute Code(s): F41.1 - Generalized anxiety disorder Plan Major depressive disorder/anxiety/dementia Continue with treatment per psychiatric team. Lumbar spondylosis, osteoarthritis Treatment with pramipexole t.i.d. Calcium carbonate b.i.d. Gabapentin 600 at bedtime for pain control Tylenol as needed History of hyperlipidemia Not on medications at this point, her recent blood work indicates values within normal limits Follow up with PCP History of hypothyroidism Not on medication at this point Recent TSH 2.18. Free T4 0.93 Thank you for allowing me to participate in the care of this patient. We will follow as needed, Please reconsult of any acute complaints or issues arise 11/11/2024 Continue lower dose mirtazapine gabapentin Seroquel tapered Vraylar 1.5 mg. Patient less depressed less anxious and agitated. Restlessness improved as combination of akathisia question restless leg question tardive dyskinesia. Dopamine agonist increased monitor mood monitor confusion 11/12/2024 Continue plan of care increase dopamine agonist as tolerated increased propranolol as tolerated 11/14/24 Pt with akathesia lower dopamine agonist hydoxyzine 25 hs mirtazapine 15 hs 11/15/24 seems better with hydrxyzine consider clonidine at hs for sleep akathesia did not tolerate inderal 20 tid lower seroquel 50 hs 11/17/24 doxepin 10 hs stop scheduled seroquel stop vraylar latuda 20 am 11/18 per staff appears to be sleeping, pt reports she is NOT sleeping. as per 11/15 note, will initiate trial of clonidine 0.1 mg at HS. 11/19 still can't sleep; will likely increase doxepin 11/20 Patient continues to say that she struggles with sleeping. Discussed medications and she agrees to increasing doxepin -increased to doxepin 20 mg q.h.s. 11/21: c/o insomnia despite numerous and varied interventions. staff reporting pt appears to be sleeping 8 hours. no further changes today. continue current mgmt. 11/22/2024 Patient agitated careful distraught and restless. Stop Vraylar Latuda 20 mg. Lorazepam Klonopin 0.5 mg b.i.d. 11/23/2024 Vraylar discontinued patient on Latuda reportedly sleeping but complains of difficulty with sleep 11/24/2024 Consider Rexulti if Latuda not effective or Trintellix 5 mg in the morning for depressive symptoms lower gabapentin from 600 mg 300 mg at bedtime secondary to lack of efficacy efficacy for insomnia morning sedation. Discontinue A.m. clonazepam 11/2024 Patient depressed irritable anxious worsening confusion Reason for continued inpatient stay Substantial Risk for: inability to function, rapid decompensation and med/psych decompensation Time Spent With Patient Time: Total time managing care of this patient today ____ minutes.
[2024-11-25 15:18] VITALS: BP 113/70; PULSE 72
[2024-11-25 20:00] VITALS: BP 117/62; PULSE 61; RESP 18; TEMP 36.3; O2SAT 95
[2024-11-25] MEDS: Doxepin HCl 10 MG CAPSULE 20 MG PO (21:01)
[2024-11-25] MEDS: Melatonin 3 MG TABLET 6 MG PO (21:01)
[2024-11-25] MEDS: clonazePAM 0.5 MG TABLET 0.75 MG PO (21:02)
[2024-11-25] MEDS: Donepezil HCl 10 MG TABLET PO (21:03)
[2024-11-25] MEDS: Mirtazapine 15 MG TABLET PO (21:03)
[2024-11-25] MEDS: Gabapentin 300 MG CAPSULE PO (21:03)
[2024-11-26 08:13] VITALS: BP 102/68; PULSE 86; RESP 18; TEMP 36.3; O2SAT 96
[2024-11-26] MEDS: Memantine HCl 10 MG TABLET PO (08:37)
[2024-11-26] MEDS: Lurasidone HCl 20 MG TABLET PO (08:37)
[2024-11-26] MEDS: Benztropine Mesylate 0.5 MG TABLET PO ×3 (08:37→20:18)
[2024-11-26] MEDS: Vortioxetine Hydrobromide 5 MG TABLET PO (08:38)
[2024-11-26] MEDS: Propranolol HCL 10 MG TABLET PO ×2 (08:38→20:22)
[2024-11-26] MEDS: Folic Acid 1 MG TABLET PO (08:38)
[2024-11-26] MEDS: Thiamine HCL 100 MG TABLET PO ×2 (08:38→20:22)
[2024-11-26 14:29] VITALS: BP 106/59; PULSE 57
[2024-11-26 20:00] VITALS: BP 129/60; PULSE 63; RESP 18; TEMP 37; O2SAT 95
[2024-11-26] MEDS: Donepezil HCl 10 MG TABLET PO (20:19)
[2024-11-26] MEDS: Melatonin 3 MG TABLET 6 MG PO (20:19)
[2024-11-26] MEDS: Doxepin HCl 10 MG CAPSULE 20 MG PO (20:19)
[2024-11-26] MEDS: Gabapentin 300 MG CAPSULE PO (20:20)
[2024-11-26] MEDS: hydrOXYzine HCL 25 MG TABLET PO (20:20)
[2024-11-26] MEDS: Mirtazapine 15 MG TABLET PO (20:20)
[2024-11-26] MEDS: clonazePAM 0.5 MG TABLET 0.75 MG PO (20:22)
--- NOTE | 2024-11-27 05:22 | P.PNPSI_ITS ---
Subjective Subjective Date of Service: 11/26/24 Reason For Visit: Severe depression agitation Interim History: Pt seen, discussed with team. Pt is bright, engaged, interactive, yet reports depressive sx are 10/10. Reports sleep is improving Well engaged in milieu and with her peers. Medication Compliance: Yes Side effects from medications: No Attending Groups: Yes Review of Systems Acute medical concerns: No Medical Review of Systems: unchanged Review of Systems Review of Systems Denies Mental Status Exam Mental Status Exam Patient Appearance: Appropriate Patient Orientation: Person, Place and Situation Level of Consciousness: Alert Patient Behavior: Appropriate, Talkative, Cooperative and Good Eye Contact Mood Description: Calm Affect Description: Calm Patient Cognition Impaired: Yes Ability to Follow Directions: Good Speech Pattern: Spontaneous Speech Memory Description: Remote Impaired Hallucinations: None Delusions: Not Present Thought Process: Confusion Thought Content: positive for [place] and positive for Circumstantial Judgement: Fair Diagnostics Vital Signs (24Hr): Vital Signs - 24 hr 11/26/24 08:13 11/26/24 14:29 11/26/24 20:00 Temperature 97.3 F 98.6 F Pulse Rate 86 57 63 Respiratory Rate 18 18 Blood Pressure 102/68 106/59 L 129/60 Pulse Oximetry 96 95 Oxygen Delivery Method Room Air Room Air BMI result Body Mass Index 28.8 Labs 11/08/24 13:33 11/09/24 07:59 Medications Medications Current Medications Acetaminophen (Acetaminophen 325 Mg Tablet) 650 mg PO Q6H PRN PRN Reason: Headache/Pain, Scale 1-10 Last Admin: 11/21/24 13:23 Dose: 650 mg Al Hydroxide/Mg Hydroxide (Magnesium Hydrox/Alum Hydrox 30 Ml Oral.Susp) 30 ml PO Q6H PRN PRN Reason: Heartburn/Nausea Benztropine Mesylate (Benztropine Mesylate 0.5 Mg Tablet) 0.5 mg PO TID BARRY Last Admin: 11/26/24 20:18 Dose: 0.5 mg Clonazepam (Clonazepam 0.5 Mg Tablet) 0.75 mg PO BEDTIME BARRY Last Admin: 11/26/24 20:22 Dose: 0.75 mg Donepezil HCl (Donepezil Hcl 10 Mg Tablet) 10 mg PO BEDTIME [facility]ARRY Last Admin: 11/26/24 20:19 Dose: 10 mg Doxepin HCl (Doxepin Hcl 10 Mg Capsule) 20 mg PO BEDTIME [facility]ARRY Last Admin: 11/26/24 20:19 Dose: 20 mg Folic Acid (Folic Acid 1 Mg Tablet) 1 mg PO DAILY [facility] Last Admin: 11/26/24 08:38 Dose: 1 mg Gabapentin (Gabapentin 300 Mg Capsule) 300 mg PO BEDTIME [facility]ARRY Last Admin: 11/26/24 20:20 Dose: 300 mg Hydroxyzine HCl (Hydroxyzine Hcl 25 Mg Tablet) 25 mg PO Q6H PRN PRN Reason: mild anxiety Last Admin: 11/25/24 13:24 Dose: 25 mg Hydroxyzine HCl (Hydroxyzine Hcl 25 Mg Tablet) 25 mg PO BEDTIME [facility] Last Admin: 11/26/24 20:20 Dose: 25 mg Lurasidone HCl (Lurasidone Hcl 20 Mg Tablet) 20 mg PO DAILY [facility] Last Admin: 11/26/24 08:37 Dose: 20 mg Magnesium Hydroxide (Milk Of Magnesia 30 Ml Oral.Susp) 30 ml PO DAILY PRN PRN Reason: Constipation Melatonin (Melatonin 3 Mg Tablet) 6 mg PO BEDTIME [facility] Last Admin: 11/26/24 20:19 Dose: 6 mg Memantine (Memantine Hcl 10 Mg Tablet) 10 mg PO DAILY [facility] Last Admin: 11/26/24 08:37 Dose: 10 mg Mirtazapine (Mirtazapine 15 Mg Tablet) 15 mg PO BEDTIME [facility] Last Admin: 11/26/24 20:20 Dose: 15 mg Propranolol HCl (Propranolol Hcl 10 Mg Tablet) 10 mg PO TID [facility]; Protocol Last Admin: 11/26/24 20:22 Dose: 10 mg Quetiapine Fumarate (Quetiapine Fumarate 25 Mg Tablet) 25 mg PO DAILY PRN PRN Reason: for anxiety Last Admin: 11/22/24 13:39 Dose: 25 mg Thiamine HCl (Thiamine Hcl 100 Mg Tablet) 100 mg PO BID [facility] Last Admin: 11/26/24 20:22 Dose: 100 mg Vortioxetine (Vortioxetine Hydrobromide 5 Mg Tablet) 5 mg PO DAILY [facility] Last Admin: 11/26/24 08:38 Dose: 5 mg Allergies Allergies Allergy/AdvReac Type Severity Reaction Status Date / Time risperidone (From Risperdal) Allergy Intermediate UNKNOWN Verified 11/08/24 13:12 Sulfa (Sulfonamide Allergy Intermediate rash Verified 11/08/24 13:12 Antibiotics) From BENADRYL Allergy Intermediate DIZZY Uncoded 11/08/24 13:12 Assessment & Plan Assessment & Plan (1) Major depressive disorder, recurrent severe without psychotic features: Status: Acute Code(s): F33.2 - Major depressive disorder, recurrent severe without psychotic features (2) Vascular dementia with anxiety: Status: Acute Code(s): F01.54 - Vascular dementia, unspecified severity, with anxiety (3) POONAM (generalized anxiety disorder): Status: Acute Code(s): F41.1 - Generalized anxiety disorder Plan Major depressive disorder/anxiety/dementia Continue with treatment per psychiatric team. Lumbar spondylosis, osteoarthritis Treatment with pramipexole t.i.d. Calcium carbonate b.i.d. Gabapentin 600 at bedtime for pain control Tylenol as needed History of hyperlipidemia Not on medications at this point, her recent blood work indicates values within normal limits Follow up with PCP History of hypothyroidism Not on medication at this point Recent TSH 2.18. Free T4 0.93 Thank you for allowing me to participate in the care of this patient. We will follow as needed, Please reconsult of any acute complaints or issues arise 11/11/2024 Continue lower dose mirtazapine gabapentin Seroquel tapered Vraylar 1.5 mg. Patient less depressed less anxious and agitated. Restlessness improved as combination of akathisia question restless leg question tardive dyskinesia. Dopamine agonist increased monitor mood monitor confusion 11/12/2024 Continue plan of care increase dopamine agonist as tolerated increased propranolol as tolerated 11/14/24 Pt with akathesia lower dopamine agonist hydoxyzine 25 hs mirtazapine 15 hs 11/15/24 seems better with hydrxyzine consider clonidine at hs for sleep akathesia did not tolerate inderal 20 tid lower seroquel 50 hs 11/17/24 doxepin 10 hs stop scheduled seroquel stop vraylar latuda 20 am 11/18 per staff appears to be sleeping, pt reports she is NOT sleeping. as per 11/15 note, will initiate trial of clonidine 0.1 mg at HS. 11/19 still can't sleep; will likely increase doxepin 11/20 Patient continues to say that she struggles with sleeping. Discussed medications and she agrees to increasing doxepin -increased to doxepin 20 mg q.h.s. 11/21: c/o insomnia despite numerous and varied interventions. staff reporting pt appears to be sleeping 8 hours. no further changes today. continue current mgmt. 11/22/2024 Patient agitated careful distraught and restless. Stop Vraylar Latuda 20 mg. Lorazepam Klonopin 0.5 mg b.i.d. 11/23/2024 Vraylar discontinued patient on Latuda reportedly sleeping but complains of difficulty with sleep 11/24/2024 Consider Rexulti if Latuda not effective or Trintellix 5 mg in the morning for depressive symptoms lower gabapentin from 600 mg 300 mg at bedtime secondary to lack of efficacy efficacy for insomnia morning sedation. Discontinue A.m. clonazepam 11/26: Continue tx Reason for continued inpatient stay Substantial Risk for: rapid decompensation Time Spent With Patient Time: Total time managing care of this patient today ____ minutes.
--- NOTE | 2024-11-27 05:27 | HO.PSYCHPN ---
Subjective Subjective Date of Service: 11/27/24 Reason For Visit: Severe depression agitation Interim History: Pt seen and discussed with her team. Pt reports feeling well, yet continues to rate depressive sx 10/10. Denies SI,HI, AH, VH, smiling, I feel good, I am happy you are with me today. Talked of her sisters in [place] and how appreciative she is that she has a supportive family. Medication Compliance: Yes Side effects from medications: No Attending Groups: Yes Review of Systems Acute medical concerns: No Review of Systems Review of Systems Denies Mental Status Exam Mental Status Exam Patient Appearance: Appropriate Patient Orientation: Person, Place and Situation Level of Consciousness: Alert Patient Behavior: Appropriate, Talkative, Cooperative and Good Eye Contact Mood Description: Calm Affect Description: Calm Patient Cognition Impaired: Yes Ability to Follow Directions: Good Speech Pattern: Spontaneous Speech Memory Description: Remote Impaired Hallucinations: None Delusions: Not Present Thought Process: Confusion Thought Content: positive for [place] and positive for Circumstantial Judgement: Fair Diagnostics Vital Signs (24Hr): Vital Signs - 24 hr 11/26/24 08:13 11/26/24 14:29 11/26/24 20:00 Temperature 97.3 F 98.6 F Pulse Rate 86 57 63 Respiratory Rate 18 18 Blood Pressure 102/68 106/59 L 129/60 Pulse Oximetry 96 95 Oxygen Delivery Method Room Air Room Air BMI result Body Mass Index 28.8 Labs 11/08/24 13:33 11/09/24 07:59 Medications Medications Current Medications Acetaminophen (Acetaminophen 325 Mg Tablet) 650 mg PO Q6H PRN PRN Reason: Headache/Pain, Scale 1-10 Last Admin: 11/21/24 13:23 Dose: 650 mg Al Hydroxide/Mg Hydroxide (Magnesium Hydrox/Alum Hydrox 30 Ml Oral.Susp) 30 ml PO Q6H PRN PRN Reason: Heartburn/Nausea Benztropine Mesylate (Benztropine Mesylate 0.5 Mg Tablet) 0.5 mg PO TID [facility] Last Admin: 11/26/24 20:18 Dose: 0.5 mg Clonazepam (Clonazepam 0.5 Mg Tablet) 0.75 mg PO BEDTIME [facility] Last Admin: 11/26/24 20:22 Dose: 0.75 mg Donepezil HCl (Donepezil Hcl 10 Mg Tablet) 10 mg PO BEDTIME [facility] Last Admin: 11/26/24 20:19 Dose: 10 mg Doxepin HCl (Doxepin Hcl 10 Mg Capsule) 20 mg PO BEDTIME [facility] Last Admin: 11/26/24 20:19 Dose: 20 mg Folic Acid (Folic Acid 1 Mg Tablet) 1 mg PO DAILY [facility] Last Admin: 11/26/24 08:38 Dose: 1 mg Gabapentin (Gabapentin 300 Mg Capsule) 300 mg PO BEDTIME [facility] Last Admin: 11/26/24 20:20 Dose: 300 mg Hydroxyzine HCl (Hydroxyzine Hcl 25 Mg Tablet) 25 mg PO Q6H PRN PRN Reason: mild anxiety Last Admin: 11/25/24 13:24 Dose: 25 mg Hydroxyzine HCl (Hydroxyzine Hcl 25 Mg Tablet) 25 mg PO BEDTIME [facility] Last Admin: 11/26/24 20:20 Dose: 25 mg Lurasidone HCl (Lurasidone Hcl 20 Mg Tablet) 20 mg PO DAILY [facility] Last Admin: 11/26/24 08:37 Dose: 20 mg Magnesium Hydroxide (Milk Of Magnesia 30 Ml Oral.Susp) 30 ml PO DAILY PRN PRN Reason: Constipation Melatonin (Melatonin 3 Mg Tablet) 6 mg PO BEDTIME [facility] Last Admin: 11/26/24 20:19 Dose: 6 mg Memantine (Memantine Hcl 10 Mg Tablet) 10 mg PO DAILY [facility] Last Admin: 11/26/24 08:37 Dose: 10 mg Mirtazapine (Mirtazapine 15 Mg Tablet) 15 mg PO BEDTIME [facility] Last Admin: 11/26/24 20:20 Dose: 15 mg Propranolol HCl (Propranolol Hcl 10 Mg Tablet) 10 mg PO TID [facility]; Protocol Last Admin: 11/26/24 20:22 Dose: 10 mg Quetiapine Fumarate (Quetiapine Fumarate 25 Mg Tablet) 25 mg PO DAILY PRN PRN Reason: for anxiety Last Admin: 11/22/24 13:39 Dose: 25 mg Thiamine HCl (Thiamine Hcl 100 Mg Tablet) 100 mg PO BID [facility] Last Admin: 11/26/24 20:22 Dose: 100 mg Vortioxetine (Vortioxetine Hydrobromide 5 Mg Tablet) 5 mg PO DAILY [facility] Last Admin: 11/26/24 08:38 Dose: 5 mg Allergies Allergies Allergy/AdvReac Type Severity Reaction Status Date / Time risperidone (From Risperdal) Allergy Intermediate UNKNOWN Verified 11/08/24 13:12 Sulfa (Sulfonamide Allergy Intermediate rash Verified 11/08/24 13:12 Antibiotics) From BENADRYL Allergy Intermediate DIZZY Uncoded 11/08/24 13:12 Assessment & Plan Assessment & Plan (1) Major depressive disorder, recurrent severe without psychotic features: Status: Acute Code(s): F33.2 - Major depressive disorder, recurrent severe without psychotic features (2) Vascular dementia with anxiety: Status: Acute Code(s): F01.54 - Vascular dementia, unspecified severity, with anxiety (3) POONAM (generalized anxiety disorder): Status: Acute Code(s): F41.1 - Generalized anxiety disorder Plan Major depressive disorder/anxiety/dementia Continue with treatment per psychiatric team. Lumbar spondylosis, osteoarthritis Treatment with pramipexole t.i.d. Calcium carbonate b.i.d. Gabapentin 600 at bedtime for pain control Tylenol as needed History of hyperlipidemia Not on medications at this point, her recent blood work indicates values within normal limits Follow up with PCP History of hypothyroidism Not on medication at this point Recent TSH 2.18. Free T4 0.93 Thank you for allowing me to participate in the care of this patient. We will follow as needed, Please reconsult of any acute complaints or issues arise 11/11/2024 Continue lower dose mirtazapine gabapentin Seroquel tapered Vraylar 1.5 mg. Patient less depressed less anxious and agitated. Restlessness improved as combination of akathisia question restless leg question tardive dyskinesia. Dopamine agonist increased monitor mood monitor confusion 11/12/2024 Continue plan of care increase dopamine agonist as tolerated increased propranolol as tolerated 11/14/24 Pt with akathesia lower dopamine agonist hydoxyzine 25 hs mirtazapine 15 hs 11/15/24 seems better with hydrxyzine consider clonidine at hs for sleep akathesia did not tolerate inderal 20 tid lower seroquel 50 hs 11/17/24 doxepin 10 hs stop scheduled seroquel stop vraylar latuda 20 am 11/18 per staff appears to be sleeping, pt reports she is NOT sleeping. as per 11/15 note, will initiate trial of clonidine 0.1 mg at HS. 11/19 still can't sleep; will likely increase doxepin 11/20 Patient continues to say that she struggles with sleeping. Discussed medications and she agrees to increasing doxepin -increased to doxepin 20 mg q.h.s. 11/21: c/o insomnia despite numerous and varied interventions. staff reporting pt appears to be sleeping 8 hours. no further changes today. continue current mgmt. 11/22/2024 Patient agitated careful distraught and restless. Stop Vraylar Latuda 20 mg. Lorazepam Klonopin 0.5 mg b.i.d. 11/23/2024 Vraylar discontinued patient on Latuda reportedly sleeping but complains of difficulty with sleep 11/24/2024 Consider Rexulti if Latuda not effective or Trintellix 5 mg in the morning for depressive symptoms lower gabapentin from 600 mg 300 mg at bedtime secondary to lack of efficacy efficacy for insomnia morning sedation. Discontinue A.m. clonazepam 11/26/24 Continue tx Reason for continued inpatient stay Substantial Risk for: rapid decompensation Time Spent With Patient Time: Total time managing care of this patient today ____ minutes.
[2024-11-27 08:50] VITALS: BP 102/55; PULSE 61; RESP 18; TEMP 36.3; O2SAT 95
[2024-11-27] MEDS: Benztropine Mesylate 0.5 MG TABLET PO ×3 (08:51→19:48)
[2024-11-27] MEDS: Memantine HCl 10 MG TABLET PO (08:51)
[2024-11-27] MEDS: Folic Acid 1 MG TABLET PO (08:52)
[2024-11-27] MEDS: Lurasidone HCl 20 MG TABLET PO (08:52)
[2024-11-27] MEDS: Vortioxetine Hydrobromide 5 MG TABLET PO (08:52)
[2024-11-27] MEDS: Propranolol HCL 10 MG TABLET PO ×3 (08:52→19:49)
[2024-11-27] MEDS: Thiamine HCL 100 MG TABLET PO ×2 (08:52→19:49)
[2024-11-27 14:30] VITALS: BP 129/62; PULSE 61
[2024-11-27 19:45] VITALS: BP 115/62; PULSE 63; RESP 16; TEMP 36; O2SAT 97
[2024-11-27] MEDS: Donepezil HCl 10 MG TABLET PO (19:48)
[2024-11-27] MEDS: hydrOXYzine HCL 25 MG TABLET PO (19:48)
[2024-11-27] MEDS: Doxepin HCl 10 MG CAPSULE 20 MG PO (19:48)
[2024-11-27] MEDS: Gabapentin 300 MG CAPSULE PO (19:48)
[2024-11-27 19:49] VITALS: BP 115/63; PULSE 63
[2024-11-27] MEDS: Melatonin 3 MG TABLET 6 MG PO (19:49)
[2024-11-27] MEDS: clonazePAM 0.5 MG TABLET 0.75 MG PO (19:49)
[2024-11-27] MEDS: Mirtazapine 15 MG TABLET PO (19:49)
[2024-11-28 08:00] VITALS: BP 134/79; PULSE 72; RESP 20; TEMP 36.8; O2SAT 98
--- NOTE | 2024-11-28 09:16 | P.PNPSI_ITS ---
Subjective Subjective Date of Service: 11/28/24 Reason For Visit: Severe depression agitation Subjective Notes: Conditional Voluntary Interim History: Pt has changed from ruth to gina in hope of dec akathesia Medication Compliance: Yes Side effects from medications: Yes Attending Groups: Intermittent Review of Systems Acute medical concerns: No Review of Systems: some back pain Mental Status Exam Mental Status Exam Patient Appearance: Appropriate Patient Orientation: Person, Place and Situation Level of Consciousness: Alert Patient Behavior: Appropriate, Talkative, Cooperative and Good Eye Contact Mood Description: Calm Affect Description: Calm Patient Cognition Impaired: Yes Ability to Follow Directions: Good Speech Pattern: Spontaneous Speech Memory Description: Remote Impaired Hallucinations: None Delusions: Not Present Thought Process: Confusion Thought Content: positive for [place] and positive for Circumstantial Judgement: Fair Judgement and Insight: Improving akathisia Diagnostics Vital Signs (24Hr): Vital Signs - 24 hr 11/27/24 14:30 11/27/24 19:45 11/27/24 19:49 Temperature 96.8 F Pulse Rate 61 63 63 Respiratory Rate 16 Blood Pressure 129/62 115/62 115/63 Pulse Oximetry 97 Oxygen Delivery Method Room Air BMI result Body Mass Index 28.8 Labs 11/08/24 13:33 11/09/24 07:59 Medications Medications Current Medications Acetaminophen (Acetaminophen 325 Mg Tablet) 650 mg PO Q6H PRN PRN Reason: Headache/Pain, Scale 1-10 Last Admin: 11/21/24 13:23 Dose: 650 mg Al Hydroxide/Mg Hydroxide (Magnesium Hydrox/Alum Hydrox 30 Ml Oral.Susp) 30 ml PO Q6H PRN PRN Reason: Heartburn/Nausea Benztropine Mesylate (Benztropine Mesylate 0.5 Mg Tablet) 0.5 mg PO TID [facility] Last Admin: 11/27/24 19:48 Dose: 0.5 mg Clonazepam (Clonazepam 0.5 Mg Tablet) 0.75 mg PO BEDTIME [facility] Last Admin: 11/27/24 19:49 Dose: 0.75 mg Donepezil HCl (Donepezil Hcl 10 Mg Tablet) 10 mg PO BEDTIME [facility] Last Admin: 11/27/24 19:48 Dose: 10 mg Doxepin HCl (Doxepin Hcl 10 Mg Capsule) 20 mg PO BEDTIME [facility] Last Admin: 11/27/24 19:48 Dose: 20 mg Folic Acid (Folic Acid 1 Mg Tablet) 1 mg PO DAILY [facility] Last Admin: 11/27/24 08:52 Dose: 1 mg Gabapentin (Gabapentin 300 Mg Capsule) 300 mg PO BEDTIME [facility] Last Admin: 11/27/24 19:48 Dose: 300 mg Hydroxyzine HCl (Hydroxyzine Hcl 25 Mg Tablet) 25 mg PO Q6H PRN PRN Reason: mild anxiety Last Admin: 11/25/24 13:24 Dose: 25 mg Hydroxyzine HCl (Hydroxyzine Hcl 25 Mg Tablet) 25 mg PO BEDTIME [facility] Last Admin: 11/27/24 19:48 Dose: 25 mg Lurasidone HCl (Lurasidone Hcl 20 Mg Tablet) 20 mg PO DAILY [facility] Last Admin: 11/27/24 08:52 Dose: 20 mg Magnesium Hydroxide (Milk Of Magnesia 30 Ml Oral.Susp) 30 ml PO DAILY PRN PRN Reason: Constipation Melatonin (Melatonin 3 Mg Tablet) 6 mg PO BEDTIME [facility] Last Admin: 11/27/24 19:49 Dose: 6 mg Memantine (Memantine Hcl 10 Mg Tablet) 10 mg PO DAILY [facility] Last Admin: 11/27/24 08:51 Dose: 10 mg Mirtazapine (Mirtazapine 15 Mg Tablet) 15 mg PO BEDTIME [facility] Last Admin: 11/27/24 19:49 Dose: 15 mg Propranolol HCl (Propranolol Hcl 10 Mg Tablet) 10 mg PO TID [facility]; Protocol Last Admin: 11/27/24 19:49 Dose: 10 mg Quetiapine Fumarate (Quetiapine Fumarate 25 Mg Tablet) 25 mg PO DAILY PRN PRN Reason: for anxiety Last Admin: 11/22/24 13:39 Dose: 25 mg Thiamine HCl (Thiamine Hcl 100 Mg Tablet) 100 mg PO BID [facility] Last Admin: 11/27/24 19:49 Dose: 100 mg Vortioxetine (Vortioxetine Hydrobromide 5 Mg Tablet) 5 mg PO DAILY [facility] Last Admin: 11/27/24 08:52 Dose: 5 mg Allergies Allergies Allergy/AdvReac Type Severity Reaction Status Date / Time risperidone (From Risperdal) Allergy Intermediate UNKNOWN Verified 11/08/24 13:12 Sulfa (Sulfonamide Allergy Intermediate rash Verified 11/08/24 13:12 Antibiotics) From BENADRYL Allergy Intermediate DIZZY Uncoded 11/08/24 13:12 Assessment & Plan Assessment & Plan (1) Major depressive disorder, recurrent severe without psychotic features: Status: Acute Code(s): F33.2 - Major depressive disorder, recurrent severe without psychotic features (2) Vascular dementia with anxiety: Status: Acute Code(s): F01.54 - Vascular dementia, unspecified severity, with anxiety (3) POONAM (generalized anxiety disorder): Status: Acute Code(s): F41.1 - Generalized anxiety disorder Plan Major depressive disorder/anxiety/dementia Continue with treatment per psychiatric team. Lumbar spondylosis, osteoarthritis Treatment with pramipexole t.i.d. Calcium carbonate b.i.d. Gabapentin 600 at bedtime for pain control Tylenol as needed History of hyperlipidemia Not on medications at this point, her recent blood work indicates values within normal limits Follow up with PCP History of hypothyroidism Not on medication at this point Recent TSH 2.18. Free T4 0.93 Thank you for allowing me to participate in the care of this patient. We will follow as needed, Please reconsult of any acute complaints or issues arise 11/11/2024 Continue lower dose mirtazapine gabapentin Seroquel tapered Vraylar 1.5 mg. Patient less depressed less anxious and agitated. Restlessness improved as combination of akathisia question restless leg question tardive dyskinesia. Dopamine agonist increased monitor mood monitor confusion 11/12/2024 Continue plan of care increase dopamine agonist as tolerated increased propranolol as tolerated 11/14/24 Pt with akathesia lower dopamine agonist hydoxyzine 25 hs mirtazapine 15 hs 11/15/24 seems better with hydrxyzine consider clonidine at hs for sleep akathesia did not tolerate inderal 20 tid lower seroquel 50 hs 11/17/24 doxepin 10 hs stop scheduled seroquel stop vraylar latuda 20 am 11/18 per staff appears to be sleeping, pt reports she is NOT sleeping. as per 11/15 note, will initiate trial of clonidine 0.1 mg at HS. 11/19 still can't sleep; will likely increase doxepin 11/20 Patient continues to say that she struggles with sleeping. Discussed medications and she agrees to increasing doxepin -increased to doxepin 20 mg q.h.s. 11/21: c/o insomnia despite numerous and varied interventions. staff reporting pt appears to be sleeping 8 hours. no further changes today. continue current mgmt. 11/22/2024 Patient agitated careful distraught and restless. Stop Vraylar Latuda 20 mg. Lorazepam Klonopin 0.5 mg b.i.d. 11/23/2024 Vraylar discontinued patient on Latuda reportedly sleeping but complains of difficulty with sleep 11/24/2024 Consider Rexulti if Latuda not effective or Trintellix 5 mg in the morning for depressive symptoms lower gabapentin from 600 mg 300 mg at bedtime secondary to lack of efficacy efficacy for insomnia morning sedation. Discontinue A.m. clonazepam 11/2024 Patient depressed irritable anxious worsening confusion 11/28/2024 Benztropine added for restlessness Trintellix for depression doxepin for sleep periods of restlessness anxiety Patient educated on: diagnosis and medication risk/benefits Informed Consent: further education needed Reason for continued inpatient stay Substantial Risk for: inability to function, rapid decompensation and med/psych decompensation Time Spent With Patient Time: Total time managing care of this patient today ____ minutes.
[2024-11-28 09:38] VITALS: BP 134/79; PULSE 74
[2024-11-28] MEDS: Thiamine HCL 100 MG TABLET PO ×2 (09:38→21:27)
[2024-11-28] MEDS: Memantine HCl 10 MG TABLET PO (09:38)
[2024-11-28] MEDS: Lurasidone HCl 20 MG TABLET PO (09:38)
[2024-11-28] MEDS: Benztropine Mesylate 0.5 MG TABLET PO ×3 (09:38→21:26)
[2024-11-28] MEDS: Vortioxetine Hydrobromide 5 MG TABLET PO (09:38)
[2024-11-28] MEDS: Folic Acid 1 MG TABLET PO (09:38)
[2024-11-28] MEDS: Propranolol HCL 10 MG TABLET PO ×3 (09:38→21:24)
[2024-11-28 20:00] VITALS: BP 115/60; PULSE 61; RESP 18; TEMP 36.8; O2SAT 95
[2024-11-28] MEDS: Gabapentin 300 MG CAPSULE PO (21:21)
[2024-11-28] MEDS: clonazePAM 1 MG TABLET PO (21:22)
[2024-11-28] MEDS: Mirtazapine 15 MG TABLET PO (21:23)
[2024-11-28] MEDS: Melatonin 3 MG TABLET 6 MG PO (21:23)
[2024-11-28] MEDS: Doxepin HCl 10 MG CAPSULE 20 MG PO (21:23)
[2024-11-28 21:24] VITALS: BP 115/50
[2024-11-28] MEDS: hydrOXYzine HCL 25 MG TABLET PO (21:24)
[2024-11-28] MEDS: Donepezil HCl 10 MG TABLET PO (21:26)
[2024-11-29 08:00] VITALS: BP 115/58; PULSE 93; RESP 16; TEMP 36.4; O2SAT 96
[2024-11-29] MEDS: Thiamine HCL 100 MG TABLET PO ×2 (08:10→20:40)
[2024-11-29] MEDS: Memantine HCl 10 MG TABLET PO (08:10)
[2024-11-29] MEDS: Benztropine Mesylate 0.5 MG TABLET PO ×3 (08:10→20:41)
[2024-11-29] MEDS: Propranolol HCL 10 MG TABLET PO ×3 (08:10→20:41)
[2024-11-29] MEDS: Vortioxetine Hydrobromide 5 MG TABLET PO (08:10)
[2024-11-29] MEDS: Folic Acid 1 MG TABLET PO (08:10)
[2024-11-29] MEDS: Lurasidone HCl 20 MG TABLET PO (08:10)
[2024-11-29] MEDS: Gabapentin 100 MG CAPSULE PO ×2 (09:24→20:39)
[2024-11-29 14:38] VITALS: BP 109/67; PULSE 79
[2024-11-29 20:00] VITALS: BP 123/63; PULSE 64; RESP 18; TEMP 36.4; O2SAT 99
[2024-11-29] MEDS: Doxepin HCl 10 MG CAPSULE 20 MG PO (20:40)
[2024-11-29] MEDS: hydrOXYzine HCL 25 MG TABLET PO (20:40)
[2024-11-29] MEDS: Melatonin 3 MG TABLET 6 MG PO (20:40)
[2024-11-29] MEDS: Gabapentin 300 MG CAPSULE PO (20:40)
[2024-11-29] MEDS: clonazePAM 1 MG TABLET PO (20:41)
[2024-11-29] MEDS: Donepezil HCl 10 MG TABLET PO (20:41)
[2024-11-29] MEDS: Mirtazapine 15 MG TABLET PO (20:41)
--- NOTE | 2024-11-29 23:18 | HO.PSYCHPN ---
Subjective Subjective Date of Service: 11/29/24 Reason For Visit: Severe depression agitation Subjective Notes: Conditional Voluntary Interim History: Patient on Latuda seems to be tolerating better than vraylar less confused pacing restlessness remains depressed and anxious but improving Mental Status Exam Mental Status Exam Patient Appearance: Appropriate Patient Orientation: Person, Place and Situation Level of Consciousness: Alert Patient Behavior: Appropriate, Talkative, Cooperative and Good Eye Contact Mood Description: Appropriate and Apprehensive Affect Description: Anxious and Apprehensive Patient Cognition Impaired: Yes Ability to Follow Directions: Good Speech Pattern: Spontaneous Speech Memory Description: Remote Impaired Hallucinations: None Delusions: Not Present Thought Process: Confusion Thought Content: positive for [place] and positive for Circumstantial Judgement: Fair Judgement and Insight: Improving akathisia improving mood and sleep do some degree Diagnostics Vital Signs (24Hr): Vital Signs - 24 hr 11/29/24 08:00 11/29/24 14:38 11/29/24 20:00 Temperature 97.5 F 97.5 F Pulse Rate 93 79 64 Respiratory Rate 16 18 Blood Pressure 115/58 L 109/67 123/63 Pulse Oximetry 96 99 Oxygen Delivery Method Room Air Room Air BMI result Body Mass Index 28.8 Labs 11/08/24 13:33 11/09/24 07:59 Medications Medications Current Medications Acetaminophen (Acetaminophen 325 Mg Tablet) 650 mg PO Q6H PRN PRN Reason: Headache/Pain, Scale 1-10 Last Admin: 11/21/24 13:23 Dose: 650 mg Al Hydroxide/Mg Hydroxide (Magnesium Hydrox/Alum Hydrox 30 Ml Oral.Susp) 30 ml PO Q6H PRN PRN Reason: Heartburn/Nausea Benztropine Mesylate (Benztropine Mesylate 0.5 Mg Tablet) 0.5 mg PO TID [facility] Last Admin: 11/29/24 20:41 Dose: 0.5 mg Clonazepam (Clonazepam 1 Mg Tablet) 1 mg PO BEDTIME [facility] Last Admin: 11/29/24 20:41 Dose: 1 mg Donepezil HCl (Donepezil Hcl 10 Mg Tablet) 10 mg PO BEDTIME [facility] Last Admin: 11/29/24 20:41 Dose: 10 mg Doxepin HCl (Doxepin Hcl 10 Mg Capsule) 20 mg PO BEDTIME [facility] Last Admin: 11/29/24 20:40 Dose: 20 mg Folic Acid (Folic Acid 1 Mg Tablet) 1 mg PO DAILY [facility] Last Admin: 11/29/24 08:10 Dose: 1 mg Gabapentin (Gabapentin 300 Mg Capsule) 300 mg PO BEDTIME [facility] Last Admin: 11/29/24 20:40 Dose: 300 mg Gabapentin (Gabapentin 100 Mg Capsule) 100 mg PO BID [facility] Last Admin: 11/29/24 20:39 Dose: 100 mg Hydroxyzine HCl (Hydroxyzine Hcl 25 Mg Tablet) 25 mg PO Q6H PRN PRN Reason: mild anxiety Last Admin: 11/25/24 13:24 Dose: 25 mg Hydroxyzine HCl (Hydroxyzine Hcl 25 Mg Tablet) 25 mg PO BEDTIME [facility] Last Admin: 11/29/24 20:40 Dose: 25 mg Lurasidone HCl (Lurasidone Hcl 20 Mg Tablet) 20 mg PO DAILY [facility] Last Admin: 11/29/24 08:10 Dose: 20 mg Magnesium Hydroxide (Milk Of Magnesia 30 Ml Oral.Susp) 30 ml PO DAILY PRN PRN Reason: Constipation Melatonin (Melatonin 3 Mg Tablet) 6 mg PO BEDTIME [facility] Last Admin: 11/29/24 20:40 Dose: 6 mg Memantine (Memantine Hcl 10 Mg Tablet) 10 mg PO DAILY [facility] Last Admin: 11/29/24 08:10 Dose: 10 mg Mirtazapine (Mirtazapine 15 Mg Tablet) 15 mg PO BEDTIME [facility] Last Admin: 11/29/24 20:41 Dose: 15 mg Propranolol HCl (Propranolol Hcl 10 Mg Tablet) 10 mg PO TID [facility]; Protocol Last Admin: 11/29/24 20:41 Dose: 10 mg Quetiapine Fumarate (Quetiapine Fumarate 25 Mg Tablet) 25 mg PO DAILY PRN PRN Reason: for anxiety Last Admin: 11/22/24 13:39 Dose: 25 mg Thiamine HCl (Thiamine Hcl 100 Mg Tablet) 100 mg PO BID [facility] Last Admin: 11/29/24 20:40 Dose: 100 mg Vortioxetine (Vortioxetine Hydrobromide 5 Mg Tablet) 5 mg PO DAILY [facility] Last Admin: 11/29/24 08:10 Dose: 5 mg Allergies Allergies Allergy/AdvReac Type Severity Reaction Status Date / Time risperidone (From Risperdal) Allergy Intermediate UNKNOWN Verified 11/08/24 13:12 Sulfa (Sulfonamide Allergy Intermediate rash Verified 11/08/24 13:12 Antibiotics) From BENADRYL Allergy Intermediate DIZZY Uncoded 11/08/24 13:12 Assessment & Plan Assessment & Plan (1) Major depressive disorder, recurrent severe without psychotic features: Status: Acute Code(s): F33.2 - Major depressive disorder, recurrent severe without psychotic features (2) Vascular dementia with anxiety: Status: Acute Code(s): F01.54 - Vascular dementia, unspecified severity, with anxiety (3) POONAM (generalized anxiety disorder): Status: Acute Code(s): F41.1 - Generalized anxiety disorder Plan Major depressive disorder/anxiety/dementia Continue with treatment per psychiatric team. Lumbar spondylosis, osteoarthritis Treatment with pramipexole t.i.d. Calcium carbonate b.i.d. Gabapentin 600 at bedtime for pain control Tylenol as needed History of hyperlipidemia Not on medications at this point, her recent blood work indicates values within normal limits Follow up with PCP History of hypothyroidism Not on medication at this point Recent TSH 2.18. Free T4 0.93 Thank you for allowing me to participate in the care of this patient. We will follow as needed, Please reconsult of any acute complaints or issues arise 11/11/2024 Continue lower dose mirtazapine gabapentin Seroquel tapered Vraylar 1.5 mg. Patient less depressed less anxious and agitated. Restlessness improved as combination of akathisia question restless leg question tardive dyskinesia. Dopamine agonist increased monitor mood monitor confusion 11/12/2024 Continue plan of care increase dopamine agonist as tolerated increased propranolol as tolerated 11/14/24 Pt with akathesia lower dopamine agonist hydoxyzine 25 hs mirtazapine 15 hs 11/15/24 seems better with hydrxyzine consider clonidine at hs for sleep akathesia did not tolerate inderal 20 tid lower seroquel 50 hs 11/17/24 doxepin 10 hs stop scheduled seroquel stop vraylar latuda 20 am 11/18 per staff appears to be sleeping, pt reports she is NOT sleeping. as per 11/15 note, will initiate trial of clonidine 0.1 mg at HS. 11/19 still can't sleep; will likely increase doxepin 11/20 Patient continues to say that she struggles with sleeping. Discussed medications and she agrees to increasing doxepin -increased to doxepin 20 mg q.h.s. 11/21: c/o insomnia despite numerous and varied interventions. staff reporting pt appears to be sleeping 8 hours. no further changes today. continue current mgmt. 11/22/2024 Patient agitated careful distraught and restless. Stop Vraylar Latuda 20 mg. Lorazepam Klonopin 0.5 mg b.i.d. 11/23/2024 Vraylar discontinued patient on Latuda reportedly sleeping but complains of difficulty with sleep 11/24/2024 Consider Rexulti if Latuda not effective or Trintellix 5 mg in the morning for depressive symptoms lower gabapentin from 600 mg 300 mg at bedtime secondary to lack of efficacy efficacy for insomnia morning sedation. Discontinue A.m. clonazepam 11/2024 Patient depressed irritable anxious worsening confusion 11/29/2024 latuda appears helpful for dep tolerating cogentin for akathesia / dystonia klonapin hs appears effective for insomnia akathesia Reason for continued inpatient stay Substantial Risk for: inability to function and rapid decompensation Time Spent With Patient Time: Total time managing care of this patient today ____ minutes.
[2024-11-30 08:00] VITALS: BP 114/66; PULSE 70; RESP 18; TEMP 36.3; O2SAT 96
[2024-11-30] MEDS: Lurasidone HCl 20 MG TABLET PO (08:25)
[2024-11-30] MEDS: Benztropine Mesylate 0.5 MG TABLET PO ×3 (08:25→20:14)
[2024-11-30] MEDS: Propranolol HCL 10 MG TABLET PO ×2 (08:25→20:16)
[2024-11-30] MEDS: Thiamine HCL 100 MG TABLET PO ×2 (08:26→20:15)
[2024-11-30] MEDS: Vortioxetine Hydrobromide 5 MG TABLET PO (08:26)
[2024-11-30] MEDS: Memantine HCl 10 MG TABLET PO (08:26)
[2024-11-30] MEDS: Folic Acid 1 MG TABLET PO (08:26)
[2024-11-30] MEDS: Gabapentin 100 MG CAPSULE PO ×2 (08:26→20:14)
[2024-11-30 14:10] VITALS: BP 118/67; PULSE 55
[2024-11-30 20:00] VITALS: BP 107/56; PULSE 67; RESP 18; TEMP 36.3; O2SAT 93
[2024-11-30] MEDS: Mirtazapine 15 MG TABLET PO (20:14)
[2024-11-30] MEDS: clonazePAM 1 MG TABLET PO (20:14)
[2024-11-30] MEDS: hydrOXYzine HCL 25 MG TABLET PO (20:14)
[2024-11-30] MEDS: Donepezil HCl 10 MG TABLET PO (20:15)
[2024-11-30] MEDS: Melatonin 3 MG TABLET 6 MG PO (20:15)
[2024-11-30] MEDS: Gabapentin 300 MG CAPSULE PO (20:16)
[2024-11-30] MEDS: Doxepin HCl 10 MG CAPSULE 20 MG PO (20:16)
[2024-12-01 08:00] VITALS: BP 118/82; PULSE 77; RESP 14; TEMP 2.3; TEMP 36.2; O2SAT 98
[2024-12-01] MEDS: Folic Acid 1 MG TABLET PO (08:06)
[2024-12-01] MEDS: Propranolol HCL 10 MG TABLET PO ×2 (08:06→14:40)
[2024-12-01] MEDS: Thiamine HCL 100 MG TABLET PO (08:06)
[2024-12-01] MEDS: Lurasidone HCl 20 MG TABLET PO (08:06)
[2024-12-01] MEDS: Benztropine Mesylate 0.5 MG TABLET PO ×2 (08:07→14:40)
[2024-12-01] MEDS: Memantine HCl 10 MG TABLET PO (08:07)
[2024-12-01] MEDS: Vortioxetine Hydrobromide 5 MG TABLET PO (08:08)
[2024-12-01] MEDS: Gabapentin 100 MG CAPSULE PO (08:10)
[2024-12-01 10:00] VITALS: BMI 28.8
[2024-12-01 14:40] VITALS: BP 132/77; PULSE 66
--- NOTE | 2024-12-01 23:53 | HO.PSYCHPN ---
Subjective Subjective Date of Service: 11/30/24 Reason For Visit: Severe depression agitation Subjective Notes: Conditional Voluntary Interim History: Patient feeling somewhat better less restless less anxious. Staying out of bed more tolerating Latuda better clonazepam at bedtime low-dose gabapentin during the day. Thoughts more organized Mental Status Exam Mental Status Exam Patient Appearance: Appropriate Patient Orientation: Person, Place and Situation Level of Consciousness: Awake and Alert Patient Behavior: Appropriate, Talkative, Cooperative and Good Eye Contact Mood Description: Appropriate and Apprehensive Affect Description: Constricted Patient Cognition Impaired: Yes Ability to Follow Directions: Good Speech Pattern: Spontaneous Speech Memory Description: Episodic Impaired Hallucinations: None Delusions: Not Present Thought Process: Rumination Thought Content: positive for [place], positive for Preoccupation, negative for Suicidal Ideation or negative for Homicidal Ideation Depressive Symptoms: Increased Anxiety and Insomnia Judgement: Fair Judgement and Insight: Improving akathisia improving mood and sleep patient alert not overly agitated Diagnostics Vital Signs (24Hr): Vital Signs - 24 hr 12/01/24 08:00 12/01/24 14:40 Temperature 36.2 F L Pulse Rate 77 66 Respiratory Rate 14 Blood Pressure 118/82 132/77 Pulse Oximetry 98 Oxygen Delivery Method Room Air BMI result Body Mass Index 28.8 Labs 11/08/24 13:33 11/09/24 07:59 Medications Allergies Allergies Allergy/AdvReac Type Severity Reaction Status Date / Time risperidone (From Risperdal) Allergy Intermediate UNKNOWN Verified 11/08/24 13:12 Sulfa (Sulfonamide Allergy Intermediate rash Verified 11/08/24 13:12 Antibiotics) From BENADRYL Allergy Intermediate DIZZY Uncoded 11/08/24 13:12 Assessment & Plan Assessment & Plan (1) Major depressive disorder, recurrent severe without psychotic features: Status: Acute Code(s): F33.2 - Major depressive disorder, recurrent severe without psychotic features (2) Vascular dementia with anxiety: Status: Acute Code(s): F01.54 - Vascular dementia, unspecified severity, with anxiety (3) POONAM (generalized anxiety disorder): Status: Acute Code(s): F41.1 - Generalized anxiety disorder Plan Major depressive disorder/anxiety/dementia Continue with treatment per psychiatric team. Lumbar spondylosis, osteoarthritis Treatment with pramipexole t.i.d. Calcium carbonate b.i.d. Gabapentin 600 at bedtime for pain control Tylenol as needed History of hyperlipidemia Not on medications at this point, her recent blood work indicates values within normal limits Follow up with PCP History of hypothyroidism Not on medication at this point Recent TSH 2.18. Free T4 0.93 Thank you for allowing me to participate in the care of this patient. We will follow as needed, Please reconsult of any acute complaints or issues arise 11/11/2024 Continue lower dose mirtazapine gabapentin Seroquel tapered Vraylar 1.5 mg. Patient less depressed less anxious and agitated. Restlessness improved as combination of akathisia question restless leg question tardive dyskinesia. Dopamine agonist increased monitor mood monitor confusion 11/12/2024 Continue plan of care increase dopamine agonist as tolerated increased propranolol as tolerated 11/14/24 Pt with akathesia lower dopamine agonist hydoxyzine 25 hs mirtazapine 15 hs 11/15/24 seems better with hydrxyzine consider clonidine at hs for sleep akathesia did not tolerate inderal 20 tid lower seroquel 50 hs 11/17/24 doxepin 10 hs stop scheduled seroquel stop vraylar latuda 20 am 11/18 per staff appears to be sleeping, pt reports she is NOT sleeping. as per 11/15 note, will initiate trial of clonidine 0.1 mg at HS. 11/19 still can't sleep; will likely increase doxepin 11/20 Patient continues to say that she struggles with sleeping. Discussed medications and she agrees to increasing doxepin -increased to doxepin 20 mg q.h.s. 11/21: c/o insomnia despite numerous and varied interventions. staff reporting pt appears to be sleeping 8 hours. no further changes today. continue current mgmt. 11/22/2024 Patient agitated careful distraught and restless. Stop Vraylar Latuda 20 mg. Lorazepam Klonopin 0.5 mg b.i.d. 11/23/2024 Vraylar discontinued patient on Latuda reportedly sleeping but complains of difficulty with sleep 11/24/2024 Consider Rexulti if Latuda not effective or Trintellix 5 mg in the morning for depressive symptoms lower gabapentin from 600 mg 300 mg at bedtime secondary to lack of efficacy efficacy for insomnia morning sedation. Discontinue A.m. clonazepam 11/2024 Patient depressed irritable anxious worsening confusion 11/29/2024 latuda appears helpful for dep tolerating cogentin for akathesia / dystonia klonapin hs appears effective for insomnia akathesia Reason for continued inpatient stay Substantial Risk for: inability to function Time Spent With Patient Time: Total time managing care of this patient today ____ minutes.
--- NOTE | 2024-12-01 23:53 | PM.PSYDC ---
DS: Providers Provider Date of Service: 12/01/24 Date of admission: 11/08/24 17:42 Date of discharge: 12/01/24 Primary care physician: Liss Holland NP Admitting clinician: Broderick Willett Attending physician on admission: Broderick Willett Consults: 11/14/24 09:31 Consult to Neurology Routine Consulting Provider: [facility] Reason for consultation: akathesia vs td vs restless leg ? recommendations Has provider been notified: No Attending physician on discharge: Broderick Willett DS: Diagnosis Discharge Diagnosis (1) Major depressive disorder, recurrent severe without psychotic features: Status: Acute (2) Vascular dementia with anxiety: Status: Acute (3) POONAM (generalized anxiety disorder): Status: Acute DS: Medications Discharge Medications Home Medications: Home Medications ?Medication ?Instructions ?Recorded ?Confirmed calcium 500 mg (as 1 tab PO BID 11/08/24 11/08/24 carbonate)-vitamin D3 5 mcg (200 unit) tablet (Oyster Shell Calcium-Vitamin D3) Previous Rx's ?Medication ?Instructions ?Recorded quetiapine 25 mg tablet 25 mg PO DAILY PRN for anxiety #30 08/19/24 tabs atorvastatin 20 mg tablet 20 mg PO BEDTIME 30 days #30 tabs 12/01/24 benztropine 0.5 mg tablet 0.5 mg PO TID 30 days #90 tabs 12/01/24 clonazepam 1 mg tablet 1 mg PO BEDTIME 30 days #30 tabs 12/01/24 donepezil 10 mg tablet 10 mg PO BEDTIME 30 days #30 tabs 12/01/24 doxepin 10 mg capsule 20 mg (2 x 10 mg) PO BEDTIME 30 12/01/24 days #60 caps folic acid 1 mg tablet 1 mg PO DAILY 30 days #30 tabs 12/01/24 gabapentin 100 mg capsule 100 mg PO BID 30 days #60 caps 12/01/24 gabapentin 300 mg capsule 300 mg PO BEDTIME 30 days #30 caps 12/01/24 hydroxyzine HCl 25 mg tablet 25 mg PO BEDTIME 30 days #30 tabs 12/01/24 lurasidone 20 mg tablet (Latuda) 20 mg PO DAILY 30 days #30 tabs 12/01/24 melatonin 5 mg capsule 5 mg PO BEDTIME 90 days #90 caps 12/01/24 memantine 10 mg tablet 10 mg PO DAILY 30 days #30 tabs 12/01/24 mirtazapine 15 mg tablet 15 mg PO BEDTIME 30 days #30 tabs 12/01/24 propranolol 10 mg tablet 10 mg PO TID 90 days #270 tabs 12/01/24 thiamine mononitrate (vit B1) 100 100 mg PO BID 30 days #60 tabs 12/01/24 mg tablet vortioxetine 5 mg tablet 5 mg PO DAILY #30 tabs 12/01/24 (Trintellix) Mental Status Exam Mental Status Exam Patient Appearance: Appropriate Patient Orientation: Person, Place and Situation Level of Consciousness: Awake and Alert Patient Behavior: Appropriate, Talkative, Cooperative and Good Eye Contact Mood Description: Appropriate and Apprehensive Affect Description: Constricted Patient Cognition Impaired: Yes Ability to Follow Directions: Good Speech Pattern: Spontaneous Speech Memory Description: Episodic Impaired Hallucinations: None Delusions: Not Present Thought Process: Rumination Thought Content: positive for [place], positive for Preoccupation, negative for Suicidal Ideation or negative for Homicidal Ideation Depressive Symptoms: Increased Anxiety and Insomnia Judgement: Fair Judgement and Insight: Improving akathisia improving mood and sleep patient alert not overly agitated Data Data Completed and Pending Completed studies during hospitalization [Text1]: 11/23/24 Unknown Urine clean catch - Clean Catch Midstream Urine Culture - Final Additional Comments Additional comments: CBC electrolytes unremarkable UA was negative for bacteria DS: Summary Hospital Course Hospital Course: [facility] Psychiatry Admission Note (In) Signed Patient: Judy Rodrigues MR#: [id number] : 1950 Acct:[id number] Age/Sex: 74 / F Loc: .[id number] 306-[address]: Broderick Willett MD cc: Broderick Willett MD~ HPI Date of Service: 11/09/24 Chief Complaint: crisis Sources of Information: patient interviewed, chart reviewed and crisis/core team assessment reviewed Additional Sources of Information: Patient seen evaluated evaluated at 16:00 6 for 25 ear note reviewed crisis evaluation reviewed HPI Subjective Notes: Qureshi Warning and Conditional Voluntary Narrative: Patient is a 74-year-old female with cognitive impairment who lives with her is an outpatient 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 Patient had been going for walks visiting friends and over the past week or so had been having significant insomnia. She does have chronic akathisia/restless leg worsened by Vraylar. She does intermittently develop chronic insomnia which causes more confusion agitation dysphoria. After number of days insomnia not responsive to multiple medication changes including increased Seroquel increase melatonin and unclear if patient was taking medication as prescribed the patient was sent to the emergency room. She did not have UTI or any other obvious trigger patient has had ECT in the past and team months in the past with some benefit. We have tried to avoid ECT most recently secondary to her developing dementia appears to be slowly progressive and patient has been Aricept and Namenda Namenda may have been contributing to insomnia she has been on mirtazapine 30 mg Seroquel at HS Vraylar 1.5 mg in the morning. 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 no classic bipolar symptoms past depressive psychotic episodes not for a number of years Medical Evaluation Reviewed: Yes [facility] Medical History (Updated 11/09/24 @ 23:52 by Broderick Willett MD) Vascular dementia with anxiety Dementia Nocturnal hypoxia Severe recurrent major depression w/psychotic features, mood-congruent Has daytime drowsiness Preoperative examination Elevated glucose Screening for colon cancer Screening for diabetes mellitus Obesity (BMI 30-39.9) Confused but orients easily Depression, major, severe recurrence Abnormal serum protein electrophoresis Mild recurrent major depression Anxiety and depression Encounter for Medicare annual wellness exam Removal of nell Depression with anxiety Abdominal distention Weight gain Major depression, recurrent, full remission POONAM (generalized anxiety disorder) Hypothyroidism Hyperparathyroidism Multinodular thyroid Vitamin D deficiency Osteoporosis Surgical History Hx of colonoscopy Hx of kyphoplasty Hx of section Family History: Depression Social History: Patient disabled has 1 son. Chronic anxiety has stable relationship with her mostly has not worked Substance History: none Trauma History: None noted Diagnostics Vital Signs (24Hr): Vital Signs - 24 hr 11/08/24 13:06 11/08/24 20:00 11/08/24 22:32 Temperature 96.9 F 98.7 F Pulse Rate 92 79 63 Respiratory Rate 16 16 Blood Pressure 144/79 H 145/85 H 149/61 H Pulse Oximetry 99 99 Oxygen Delivery Method Room Air Room Air 11/09/24 07:54 Temperature 97.8 F Pulse Rate 70 Respiratory Rate 14 Blood Pressure 114/63 Pulse Oximetry 96 Oxygen Delivery Method Room Air BMI result Body Mass Index 28.0 Labs 11/08/24 13:33 document embedded image 11/09/24 07:59 document embedded image Labs: Laboratory Results - last 48 hr 11/08/24 11/08/24 11/09/24 13:33 16:16 07:59 WBC 7.7 RBC 5.04 Hgb 15.6 Hct 46.7 MCV 92.7 MCH 31.0 MCHC 33.4 RDW 13.5 Plt Count 174 D MPV 11.4 Immature Gran % (Auto) 0.3 Neut % (Auto) 75.2 H Lymph % (Auto) 17.7 L Person % (Auto) 6.0 Eos % (Auto) 0.4 Baso % (Auto) 0.4 Lymph # (Auto) 1.4 Person # (Auto) 0.5 Eos # (Auto) 0.0 Baso # (Auto) 0.0 Abs Immat Gran (auto) 0.02 Absolute Neuts (auto) 5.8 Absolute Nucleated RBC 0.000 Nucleated RBC % (auto) 0.0 Sodium 143 144 Potassium 3.9 4.1 Chloride 107 106 Carbon Dioxide 24 27 Anion Gap 16 15 BUN 17 H 17 H Creatinine 0.94 0.98 Estim Creat Clear Calc 41.7 39.4 Estimated GFR 58 56 Random Glucose 111 93 Estimat Average Glucose 120 Hemoglobin A1c % 5.8 Calcium 10.1 D 10.0 Total Bilirubin 0.6 0.7 AST 27 26 ALT 22 22 Alkaline Phosphatase 84 Total Protein 8.0 7.1 Albumin 4.5 4.0 Triglycerides 61 Cholesterol 151 LDL Cholesterol, Calc 83 HDL Cholesterol 56 Urine Color Yellow Urine Appearance Clear Urine pH 5.5 Ur Specific [place] 1.015 Urine Protein Negative Urine Glucose (UA) Negative Urine Ketones Trace Urine Blood Negative Urine Nitrite Negative Ur Leukocyte Esterase Trace H Urine RBC 0-2 Urine WBC 0-5 Ur Squamous Epith Cells 0-2 Urine Bacteria None Seen Hyaline Casts 0-2 Salicylates < 5.0 L Urine Opiates Screen Not Detected Ur Buprenorphine Scrn Not Detected Ur Oxycodone Screen Not Detected Urine Methadone Screen Not Detected Urine Fentanyl Screen Not Detected Acetaminophen < 3 Ur Barbiturates Screen Not Detected Ur Phencyclidine Scrn Not Detected Ur Amphetamines Screen Not Detected U Benzodiazepines Scrn Not Detected Urine Cocaine Screen Not Detected U Marijuana (THC) Screen Not Detected Ethyl Alcohol < 10 EKG EKG: reviewed EKG Comment: Did have recent palpitation Meds/Allergies Meds Home Medications Medication Instructions Recorded Confirmed Type atorvastatin 20 mg tablet 20 mg PO BEDTIME 11/08/24 11/08/24 History calcium 500 mg (as 1 tab PO BID 11/08/24 11/08/24 History carbonate)-vitamin D3 5 mcg (200 unit) tablet (Oyster Shell Calcium-Vitamin D3) cariprazine 1.5 mg capsule 1.5 mg PO DAILY 11/08/24 11/08/24 History (Vraylar) folic acid 1 mg tablet 1 mg PO DAILY 11/08/24 11/08/24 History gabapentin 300 mg capsule 300 mg PO BEDTIME 11/08/24 11/08/24 History lorazepam 0.5 mg tablet 0.5 mg PO DAILY anxiety 11/08/24 11/08/24 History lorazepam 0.5 mg tablet 1 mg PO BEDTIME anxiety 11/08/24 11/08/24 History memantine 10 mg tablet 10 mg PO BID 11/08/24 11/08/24 History quetiapine 300 mg tablet 300 mg PO BEDTIME 11/08/24 11/08/24 History Allergies Allergies Allergy/AdvReac Type Severity Reaction Status Date / Time risperidone [From Risperdal] Allergy Intermediate UNKNOWN Verified 11/08/24 13:12 Sulfa (Sulfonamide Allergy Intermediate rash Verified 11/08/24 13:12 Antibiotics) From BENADRYL Allergy Intermediate DIZZY Uncoded 11/08/24 13:12 Mental Status Exam Mental Status Exam Patient Appearance: Disheveled Patient Orientation: Person, Place and Situation Level of Consciousness: Awake Patient Behavior: Passive, Anxious and Fatigued Behavior Comments: Some movement of of her legs much of the time Mood Description: Depressed and Apprehensive Affect Description: Apprehensive Patient Cognition Impaired: Yes Ability to Follow Directions: Fair Speech Pattern: Clear and Impoverished Memory Description: Episodic Impaired and Working Impaired Hallucinations: None Delusions: Not Present Thought Process: Rumination and Slowed Thinking Thought Content: positive for [place], positive for Poverty of Content and positive for Slowed Thinking Depressive Symptoms: Increased Anxiety and Difficulty Sleeping Judgement: Fair Judgement and Insight: Patient cognitively slowed in distress has not slept significantly for a number of days no racing thoughts pressured speech no adam irritability reactivity Assessment & Plan Assessment & Plan (1) Major depressive disorder, recurrent severe without psychotic features: Status: Acute Code(s): F33.2 - Major depressive disorder, recurrent severe without psychotic features (2) POONAM (generalized anxiety disorder): Status: Acute Code(s): F41.1 - Generalized anxiety disorder (3) Vascular dementia with anxiety: Status: Acute Code(s): F01.54 - Vascular dementia, unspecified severity, with anxiety Plan Patient admitted depressed anxious with significant insomnia. Unclear if the patient has been taking medication as prescribed does have VNA we have tried to make some recent changes increase Seroquel at bedtime to not appear to be helpful will lower Namenda lower mirtazapine consider restarting doxepin which had been helpful in the past try and see if any medical issues or contributing factor transfer to Geriatric unit when possible patient admitted on a conditional voluntary Patient educated on: diagnosis and medication risk/benefits Informed Consent: further education needed Reason for continued inpatient stay Substantial Risk for: inability to function, rapid decompensation and med/psych decompensation Statement Statement: I have reviewed the history and physical and performed a pertinent examination on my patient. No changes have occurred unless specified. If the History and Physical was not performed prior to admission, the Hospitalist's service will be consulted for completing the admission physical. This was reviewed at 16:00 Time Spent With Patient Time: Total time managing care of this patient today ____ minutes. Dictated By: Broderick Willett MD Signed By: <Electronically signed by Broderick Willett MD> HOSPITAL COURSE [facility] voluntary. Patient was quite anxious ruminating had significant what appeared to be akathisia question tardive akathisia and complained of ongoing difficulty sleeping. She was frequently quite distraught she was not psychotic no hallucinations or delusional material. It appeared that higher doses of gabapentin Seroquel were not effective in might have been contributing to confusion. Vraylar 1.5 mg seem to be causing significant akathisia unfortunately had work for depression in the past but seem to be a contributing factor to her difficulty functioning sleeping and I would not increase the dose further secondary to side effects. Patient was seen by Neurology felt patient had akathisia and despite her age recommended a trial of Cogentin which was initiated 0.5 mg PO TID. Beta-blockers were discontinued appeared not to be helpful. Propranolol was continued at 10 mg p.o. t.i.d. Patient was given a trial of Latuda which did seem to be helpful and caused significantly less akathisia and patient seemed more stable on clonazepam 1 mg at bedtime in addition to gabapentin 100 mg b.i.d. Trintellix 5 mg was started for agitated depression in addition to the Latuda and mirtazapine at bedtime. Doxepin 20 mg at bedtime appeared to be useful to help with insomnia and anxiety. Patient does have a long history of agitated depression has responded to TMS outpatient in the past. This will be considered post discharge patient also has significant cognitive impairment she was on memantine and Aricept. Her is quite supported she does have VNA Status at Discharge Cognitive/behavioral status at discharge: Patient was alert with a full affect future oriented seen with her at discharge mood much improved calm Functional status at discharge: independent ambulation Overall status at discharge: patient is progressing back to baseline Time Spent with Patient Time attestation: Total time managing care of this patient today _45___ minutes. Time spent: Greater than 30 minutes Discharge Plan Discharge Anticipated Discharge Date/Time: 12/01/24 16:30 Patient Disposition: Home Health Service Discharge Diagnosis: major depression recurrent vascular dementia tardive akathesia spondylosis insomnia osteoporosis Referrals: [facility] [Outside] - 1 Day Referral Note: Your [facility] will be restarting tomorrow at there usual time. Broderick Willett MD [Physician, Psychiatry] - 12/08/24 2:30 pm Referral Note: You will see on 12/08/24 at 2:30p,. If you need to reschedule or cancel the appointment please call the number listed. Liss Tenorio NP [Primary Care Provider, Endocrinology] - 3-5 Days Referral Note: Your [facility] will be contacting you for your after care appointment with Liss Discharge Medications: New benztropine 0.5 mg Tablet 0.5 mg PO TID 30 Days Qty: 90 2RF clonazepam 1 mg Tablet 1 mg PO BEDTIME 30 Days Qty: 30 1RF doxepin 10 mg Capsule 20 mg PO BEDTIME 30 Days Qty: 60 1RF hydroxyzine HCl 25 mg Tablet 25 mg PO BEDTIME 30 Days Qty: 30 1RF gabapentin 100 mg Capsule 100 mg PO BID 30 Days Qty: 60 1RF mirtazapine 15 mg Tablet 15 mg PO BEDTIME 30 Days Qty: 30 1RF memantine 10 mg Tablet 10 mg PO DAILY 30 Days Qty: 30 1RF lurasidone [Latuda] 20 mg Tablet 20 mg PO DAILY 30 Days Qty: 30 1RF Trintellix 5 mg Tablet 5 mg PO DAILY Qty: 30 1RF Continued quetiapine 25 mg tablet 25 mg PO DAILY PRN (Reason: for anxiety) Qty: 30 3RF calcium carbonate-vitamin D3 [Oyster Shell Calcium-Vit D3] 500 mg-5 mcg (200 unit) tablet 1 tab PO BID atorvastatin 20 mg tablet 20 mg PO BEDTIME 30 Days Qty: 30 1RF donepezil 10 mg tablet 10 mg PO BEDTIME 30 Days Qty: 30 5RF propranolol 10 mg tablet 10 mg PO TID 90 Days Qty: 270 1RF Protocol: Hold for SBP/HR < HOLD for SBP < : 90 HOLD for HR < : 60 folic acid 1 mg tablet 1 mg PO DAILY 30 Days Qty: 30 1RF melatonin 5 mg capsule 5 mg PO BEDTIME 90 Days Qty: 90 1RF thiamine mononitrate (vit B1) 100 mg tablet 100 mg PO BID 30 Days Qty: 60 3RF Changed gabapentin 300 mg capsule 300 mg PO BEDTIME 30 Days Qty: 30 1RF Discontinued pramipexole 0.25 mg tablet 0.25 mg PO TID 30 Days Qty: 90 2RF trazodone 50 mg tablet 100 mg PO BEDTIME 90 Days Qty: 180 1RF lorazepam 0.5 mg tablet 0.5 mg PO DIRECTED 30 Days Qty: 30 3RF Rx Instructions: 1 tab in the am 2 tabs bedtime mirtazapine 30 mg tablet 30 mg PO BEDTIME 30 Days Qty: 30 1RF quetiapine 300 mg tablet 300 mg PO BEDTIME Vraylar 1.5 mg capsule 1.5 mg PO DAILY memantine 10 mg tablet 10 mg PO BID lorazepam 0.5 mg tablet 1 mg PO BEDTIME lorazepam 0.5 mg tablet 0.5 mg PO DAILY Discharge Orders: Discharge Order (Routine); Ordered 12/01/24 Ordered By: Broderick Willett Diet: Advance to usual diet Activity on Discharge: As tolerated Stand Alone Forms: Patient Portal Discharge page, Community Support Print Language: Filipino Care Plan Goals: stable mood less depressed improved sleep improved energy improved functioning Health Concerns: back pain spondylisthesis vascular dementia osteoporosis recurrent depression severe hx of psychosis Plan of Treatment: vna f/u dr willett trintellix mirtazapine doxepin gabapenin klonapin at bedtime call [phone] go to er if feeling unsafe or call [phone] Assessment: smiling pleasant future oriented improved mood and sleep Discharge Date/Time: 12/01/24 16:10
== END 2024-12-01 16:10 | disposition home health service (06) | DRG 751 ==
LOC: HO.ED 17:16 → HO.PADLT16 17:58 → HO.PGERI 11-10 12:59
PROVIDERS: Physician Assistant; Physician Assistant Medical; Admitting Provider Registered Nurse; Emergency Provider Emergency Medicine Emergency Medical Services; PCP Nurse Practitioner Family; Visit Provider Psychiatry & Neurology Psychiatry
DX: F33.2 Major depressive disorder, recurrent severe without psychotic features (principal); G25.71 Drug induced akathisia; F01.54 Vascular dementia, unspecified severity, with anxiety; F41.1 Generalized anxiety disorder; M81.0 Age-related osteoporosis without current pathological fracture; G47.00 Insomnia, unspecified; M47.816 Spondylosis without myelopathy or radiculopathy, lumbar region; T43.595A Adverse effect of other antipsychotics and neuroleptics, initial encounter; Z79.899 Other long term (current) drug therapy
CPT/HCPCS: 36415; 80053; 80061; 80143; 80179; 80307; 81001; 83036; 85025; 87086; 93005; 99285; S9485

== ENCOUNTER → 2024-11-08 13:11 | Outpatient (BNV) | payer MEDICARE, SELFPAY | PROVIDERS: Admitting Provider Registered Nurse; Emergency Provider Emergency Medicine Emergency Medical Services; PCP Nurse Practitioner Family; Visit Provider Internal Medicine | DX: I25.2 Old myocardial infarction (principal) | CPT/HCPCS: 93010 ==

== ENCOUNTER → 2024-11-08 17:42 | Outpatient (BNV) | payer OTHER, SELFPAY | PROVIDERS: Admitting Provider Registered Nurse; Emergency Provider Emergency Medicine Emergency Medical Services; PCP Nurse Practitioner Family; Visit Provider Psychiatry & Neurology Psychiatry | DX: F33.2 Major depressive disorder, recurrent severe without psychotic features (principal); F01.54 Vascular dementia, unspecified severity, with anxiety; F41.1 Generalized anxiety disorder | CPT/HCPCS: 99231; 99232 ==

== ENCOUNTER → 2024-11-08 17:42 | Outpatient (BNV) | payer MEDICARE, SELFPAY | PROVIDERS: Admitting Provider Registered Nurse; Emergency Provider Emergency Medicine Emergency Medical Services; PCP Nurse Practitioner Family; Visit Provider Nurse Practitioner Family | DX: F01.54 Vascular dementia, unspecified severity, with anxiety (principal) | CPT/HCPCS: 99221 ==

== ENCOUNTER → 2024-11-08 17:42 | Outpatient (BNV) | payer OTHER, SELFPAY | PROVIDERS: Admitting Provider Registered Nurse; Emergency Provider Emergency Medicine Emergency Medical Services; PCP Nurse Practitioner Family; Visit Provider Psychiatry & Neurology Psychiatry | DX: F33.2 Major depressive disorder, recurrent severe without psychotic features (principal); F41.1 Generalized anxiety disorder; F01.54 Vascular dementia, unspecified severity, with anxiety | CPT/HCPCS: 90792 ==

== ENCOUNTER → 2024-11-08 17:42 | Outpatient (BNV) | payer OTHER, SELFPAY | PROVIDERS: Admitting Provider Registered Nurse; Emergency Provider Emergency Medicine Emergency Medical Services; PCP Nurse Practitioner Family; Visit Provider Psychiatry & Neurology Neurology | DX: G25.71 Drug induced akathisia (principal) | CPT/HCPCS: 99222 ==

== ENCOUNTER 2024-12-08 14:23 | Outpatient (AMB) | payer OTHER, SELFPAY ==
--- OUTSIDE RECORDS SUMMARY | 2024-12-05 11:02 | XMS_ITS | Continuity of Care Document ---
Author Organization [facility] Address [address] [address] Phone Care Team Providers Care Anode Builder Name Role Phone Ananda PRESCHOOL PROGRAM DIRECTOR, Liss Unavailable Unavailab le Allergies, Adverse Reactions, Alerts Substance Reaction Status Criticality risperidone Active No Information Sulfa (Sulfonamide Antibiotics) Rash Active No Information DIPHENHYDRAMINE HCL Dizziness Active Unable t o Assess Medications Medication Instructions Dosage Effective Dates (start - stop) Status Comments benztropine 0.5 mg tablet Script per psychiatry: Take 1 tablet by mouth 3 times daily. - Active 12/05/24: Per inpatient psychiatry discharge clonazepam 1 mg tablet Script per psychiatry: Take 1 tablet by mouth once daily at bedtime. - Active 12/05/24: Per inpatient psychiatry discharge doxepin 10 mg capsule Script per psychiatry: Take 2 capsules (20mg) by mouth once daily at bedtime. - Active 12/05/24: Per inpatient psychiatry discharge. gabapentin 100 mg capsule Script per psychiatry: Take 1 capsule by mouth twice daily (separate script for bedtime dosing). - Active hydroxyzine HCl 25 mg tablet Script per psychiatry: Take 1 tablet by mouth once daily at bedtime. - Active 12/05/24: Per inpatient psychiatry discharge lurasidone 20 mg tablet Script per psychiatry: Take 1 tablet by mouth once daily. - Active 12/05/24: Per inpatient psychiatry discharge memantine 10 mg tablet Script per psychiatry: Take 1 tablet by mouth once daily. - Active 12/05/24: Per inpatient psychiatry discharge, frequency changed to once daily mirtazapine 15 mg tablet Script per psychiatry: Take 1 tablet by mouth once daily at bedtime. - Active 12/05/24: Per inpatient psychiatry discharge: Dose decreased from 30mg to 15mg. Vitamin B-1 100 mg tablet Take 1 tablet by mouth twice daily. - Active Per pre-enrollment. acetaminophen 325 mg tablet Take 2 tablets [...] - Active Per pre-enrollment, Dr. Willett (psychiatry). gabapentin 300 mg capsule Script per Dr. Willett (psych): Take 1 capsule by mouth once daily at bedtime. - Active 08/12/24: Per Dr. Willett, added gabapentin. Script sent by him. propranolol 10 mg tablet Take 1 tablet by mouth 3 times daily. - Active Per pre-enrollment, Dr. Willett (psychiatry). Advance Directives Directive Yes / No Effective Date File Name No Information Encounters Encounter Description Practice Location Reason(s) For Visit Diagnoses Date Provider [facility], [address] [place] [address], [place], [place], [id number], [place] tel:[phone] [place] No Information [address] [place], [place], [id number], [place]. tel:[phone] [facility], [facility], [place], [place], [id number], [place] tel:[phone] [place] [facility] Evaluation (chief complaint) Moderate episode of recurrent major depressive disorderAkathisiaInsomn ia, unspecified type 0- 5 [address]. [address] [place], [id number], [place]. tel:[phone] [facility], [facility], [place], [place], [id number], [place] tel:[phone] [place] Acute Visit (chief complaint) Recurrent major depressive disorder, in partial remissionGAD (generalized anxiety disorder) 5 [address] [place], [id number], [place]. tel:[phone] [facility], [facility], [place], [place], [id number], [place] tel:[phone] [place] No Information Mar-1 2- 5 [address] [place], [id number], [place]. tel:[phone] [facility], [facility], [place], [place], [id number], [place] tel:[phone] [place] No Information Mar-1 - 5 [address]. [address] [place], [id number], [place]. tel:[phone] [facility], [facility], [place], [place], [id number], [place] tel:[phone] [place] Encounter for nutritional assessment Mar-0 3-202 5 Normile Keena. [address] [place], [id number], [place]. tel:[phone] [facility], [facility], [place], [place], [id number], [place] tel:[phone] [place] Semi-Annual (chief complaint) Pulmonary noduleMixed hyperlipidemiaPrediabet esHypothyroidism, unspecified typeStage 3a chronic kidney diseaseMild dementia with other behavioral disturbance, unspecified dementia typeOsteoporosis, unspecified osteoporosis type, unspecified pathological fracture presenceOther specified personal risk factors, not elsewhere classifiedRecurrent major depressive disorder, in partial remissionGAD (generalized anxiety disorder)Hyperparathyro idismVitamin D deficiency Aug- 5 [address], [place], [place], [id number], [place]. tel:[phone] [facility], [facility], [place], [place], [id number], [place] tel:[phone] [place] No Information 5 [address], [id number], [place]. tel:[phone] [facility], [facility], [place], [place], [id number], [place] tel:[phone] [place] [facility] Evaluation (chief complaint) History of UTIMixed hyperlipidemiaHypothyro idism, unspecified typeOsteoporosis without current pathological fracture, unspecified osteoporosis typeHyperparathyroidism Viral gastroenteritisStage 3a chronic kidney diseaseMild dementia with other behavioral disturbance, unspecified dementia typeRecurrent major depressive disorder, in full remissionGAD (generalized anxiety disorder) 5 [address], [place], [place], [id number], [place]. tel:[phone] [facility], [facility], [place], [place], [id number], [place] tel:[phone] [place] Recurrent major depressive disorder, in partial remissionGAD (generalized anxiety disorder) 4 [address], [place], [place], [id number], [place]. tel:[phone] [facility], [facility], [place], [place], [id number], [place] tel:[phone] [place] Acute Visit (chief complaint) Genitourinary syndrome of menopause 4 [address] Liss. [address] [place], [place], [id number], [place]. tel:[phone] [facility], [facility], [place], [place], [id number], [place] tel:[phone] [place] Follow-up (chief complaint) Shortness of breathRecurrent major depressive disorder, in partial remissionGAD (generalized anxiety disorder)Insomnia, unspecified type 4 [address] [place], [place], [id number], [place]. tel:[phone] [facility], [facility], [place], [place], [id number], [place] tel:[phone] [place] Follow-up (chief complaint) Mixed hyperlipidemiaOsteoporo sis without current pathological fracture, unspecified osteoporosis typeAdvanced directives, counseling/discussion 4 [address] [place], [place], [id number], [place]. tel:[phone] [facility], [facility], [place], [place], [id number], [place] tel:[phone] [place] Other specified personal risk factors, not elsewhere classifiedUnspecified visual disturbance Feb- 4 [address] Liss. [address] [place], [place], [id number], [place]. tel:[phone] [facility], [facility], [place], [place], [id number], [place] tel:[phone] [place] No Information Feb- 4 [address] Liss. [address] [place], [place], [id number], [place]. tel:[phone] [facility], [facility], [place], [place], [id number], [place] tel:[phone] [place] No Information Sep-1 4 [address] [place], [id number], [place]. tel:[phone] [facility], [address], [place], [place], [id number], [place] tel:[phone] [place] Major depressive disorder, recurrent, in partial remission Sep- 4 [address] Liss. [address], [place], [place], [id number], [place]. tel:[phone] [facility], [address] [facility], [place], [place], [id number], [place] tel:[phone] [place] Encounter for rehabilitation evaluation Sep-0 4 [address]. [address] [facility] [address], [place], [place], [id number], [place]. tel:[phone] [facility], [address] [facility], [place], [place], [id number], [place] tel:[phone] [place] Encounter for rehabilitation evaluation Sep-0 4 Gerardo Wilson. [address], [place], [address]. tel:[phone] [facility], [address], [place], [place], [id number], [place] tel:[phone] [place] Encounter for nutritional assessmentClass 1 obesity with serious comorbidity and body mass index (BMI) of 32.0 to 32.9 in adult, unspecified obesity typeBody mass index [BMI] 32.0-32.9, adult Sep-0 4 Normile Keena. [address] [facility] [place], [id number], [place]. tel:[phone] [facility], [address], [place], [place], [id number], [place] tel:[phone] [place] [facility] Evaluation (chief complaint) History of mammogramStage 3a chronic kidney diseasePrediabetesRecur rent major depressive disorder, in partial remissionHypothyroidism , unspecified typeVitamin D deficiencyHyperparathyr oidismHistory of UTIGAD (generalized anxiety disorder)Mixed hyperlipidemiaObesity, Class I, BMI 30.0-34.9 (see actual BMI)BMI 32.0-32.9,adultLumbar spondylosisMild dementia with other behavioral disturbance, unspecified dementia typeOsteoporosis without current pathological fracture, unspecified osteoporosis type Feb- 4 [address], [id number], [place]. tel:[phone] [facility], [address] [address], [place], [place], [id number], [place] tel:[phone] [place] No Information 4 Normile Keena. [address], [place], [place], [id number], [place]. tel:[phone] Family History Family Member Type Diagnosis Age [...] name Insurance type Covered constitution party ID Authorcandicea tibayron(s) PFI Acquisition 16 [id number] PFI Acquisition 16 [id number] PFI Acquisition 16 [id number] PFI Acquisition 16 [id number] Social History Type Description Quantity Date Captured Comments Sex Female Smoking Status No Information Chief Complaint And Reason For Visit No Information Plan Of Treatment Date Type Action Status Referral Ordered: Dentistry (related to Need for dental care) ordered Referral Ordered: Import Clerk (related to Visual changes) ordered Referral Ordered: Referrals: Dentistry. Evaluate and treat ordered Referral Ordered: Referrals: Import Clerk. Evaluate and treat ordered Referral Referred To: Dr. Willett Ordered: Referrals: Psychiatry. Dr. Willett Appointment date/timeframe: 02/16/2024 ordered Future Order: Lab Order Urinalys casey, Macroscopic ([id number]), Ordered on: Ordered History Of Present Illness Encounter Date Complaint History Of Prese nt Illness Post Hospital Evaluation Judy loco s a 74 year old female who is seen today for a post-hospital evaluation. She is accompanied today by her . In review of recent events, [facility] with worsening depression symptoms. Multiple medication changes were made with notable improvement and she was thus discharged. Judy will have a follow up visit with Dr. Willett on 12/08/24.Today, in the office, Judy is tearful and anxious. She tells me she has not slept for the past 2 nights and they are ignoring me , they don't care about me". She is aware that she has an appointment with Dr. Willett on 12/08 but asks that I call his office while she is here today urgently to ask for help. I left a message with their office. I let her know I would call her if I hear from their office. Judy denies suicidal ideation, reports she is safe at home and does not want to go to the hospital. In speaking separately to her , he states this has been a chronic report of her saying she is not sleeping though she is witnessed to be sleeping. Inpatient recently, she was seen by nursing and other staff to be sleeping in the night but she reported she was not sleeping; similar to what is happening at home. However, her cannot say with 100% certainty of her sleep in the last 2 days, though he says she has been seen napping the couch intermittently. He says she has very little daytime activity and typically just goes from the couch during the day to the bed at night. He says he has encouraged her to walk during the day or do other activities but she declines. We discussed if he feels like additional help in the home would help, or attendance at the day program; he does not feel either would help.Dr. Willett called back about 4PM. We discussed Judy's presentation today and Dr. Willett advised this appears to be akathisia which Judy has experienced in the past. He advised to hold the Trintellix which was the last medication to be added to her regimen. Message sent to nursing to pull med; nursing will contact family about this and med will be pulled in the morning. Dr. Willett also mentioned sleep apnea had been a concern in the past and we may consider a sleep study; I will enter order for this. I am also checking a urine to rule out UTI. Acute Visit Judy is a 74 ye ar old female who is seen today for a follow up visit. She is accompanied by her however he waits in the common area, did not wish to come into the visit. Judy reports her has been struggling with his own health at times. Judy has no specific complaints today and tells me she has been doing well. Mood is reported as stable, sleeping well. No SOB/cough, no N/V/D/constipation. No pain. No dizziness. No recent falls. Her exam is reassuring with the exception of appearing pale in her face only. No other findings to suggest illness.Judy continues to follow with her psychiatrist Dr. Willett closely. She says she saw him last month and will see him again in November. I do not yet have updated note, requested. Semi-Annual Judy is a 73-ye ar-old female [...] Immunizations: UTD. History of ER visits/Falls/SNF/Hospitalizations:-Admitted to [facility] from 07/04-07/13/24 with severe depression. -06/18/24 To [facility] with vomiting, treated for viral GI illness. -Before COVID, was on 5th floor x 1.5 years at [place] on their psychiatric unit. Then was for a few months on 1st floor in a unit x few months for psychiatric concerns. Specialists:-Dr. Fausto Willett at [facility], psychiatrist. Judy has been with Dr. Willett for 20 years and given her complex psychiatric history she will continue to see him. -No other specialists. Advanced directives:-HCP on file dated 08/07/2023 indicating her primary HCP is Boris Rodrigues (spouse and secondary is Cristela Ravi (son). HCP not invoked as far as patient and spouse are aware.-MOLST: MOLST on file dated 03/14/24 indicating she is a full code, yes to intubation (short-term only), yes to non-invasive ventilation, yes transfer to hospital, yes to dialysis, yes to short-term artificial nutrition, yes to artificial hydration. Confirmed wishes today. Social: Judy lives in the community in [place] with her , just the 2 of them. They have always lived in the area. They have family in [place] and [place]. Rahul has a son and daughter from [...] they think possibly 1 year ago at [facility]. Bone density: Unclear when her last [...] facet joint arthropathy . DEXA ordered at [facility]; message sent to follow up. Mobility: Walks [...] him this week. Post Hospital Evaluation Judy i s a 73 year old female who is seen today for a post-hospital evaluation. She is accompanied by her .In review of recent events, Judy was seen at [facility] on 06/18/24 with vomiting and LLQ [...] pain.-Drink lots of water. -Call us at [phone] if you feel you are getting worse [...] today.History of ER visits/Falls/SNF/Hospitalizations:-05/25/23 -06/14/23: Inpatient at [facility]. No other hospitalizations, ER visits since then. -Before COVID, was on 5th floor x 1.5 years at [place] on their psychiatric unit. Then was for a few months on 1st floor in a unit x few months for psychiatric concerns. Specialists:-Dr. Fausto Willett at [facility]. Seeing him tomorrow. He [...] discussed with plan to complete form at [facility] follow up visit in 1 month. Social: Judy lives in the community in [place] with her , just the 2 of them. They have always lived in the area. They have family in [place] and [place]. Herve has a son and daughter from [...] they think possibly 1 year ago at [facility]. Bone density: Unclear when her last DEXA was. Not seen in pre-enrollment records from [place]. Osteoporosis listed in her problem list with [...] tomorrow. Instructions Date Instruction Additional Infor steven -Continued difficult y sleeping of unknown etiology. -Per pre-enrollment (01/31/22 page 23) states i ndeed the patient may have some underlying untreated sleep apnea. Likely, that the home sleep study was not adequate enough to make a diagnosis . It was recommended by pulmonary inpatient that she use oxygen overnight given hypoxia however patient declined. It was mentioned that she should have another sleep study outpatient. -Judy and her feel her difficulty sleeping is r/t her psychiatric medications which is possible however the history in the [facility] records suggests possible FARNAZ. Will explore possibility of repeat sleep study. Related to Insomnia, unspecified type -Judy is intermitte ntly admitted to [facility] psychiatric inpatient unit for worsening depression. She was last discharged on 12/01/24. Last 2 days she reports inability to sleep, and significant restlessness, anxiety, pacing. In the office, notably fidgeting, pacing, anxious, tapping feet. Dr. Willett feels this is akathisia and recommended stopping Trintellix which was recently added and may be the causative agent. -Continue other psychiatric medications as ordered. -She will follow with Dr. Willett on 12/08. Related to Akathisia -Per pre-enrollment (01/31/22 page 16) described as MDD, recurrent severe without psychotic features. Per pre-enrollment, has been treated in the past with ECT, Trintellix, Doxepin, Caplyta. -She is intermittently admitted to [facility] psychiatric inpatient unit for worsening depression. She was last discharged on 12/01/24. Last 2 days she reports inability to sleep, and significant restlessness, anxiety, pacing. Dr. Willett feels this is akathisia and recommended stopping Trintellix which was recently added and may be the causative agent. -Continue other psychiatric medications as ordered. -She will follow with Dr. Willett on 12/08. Related to Moderate episode of recurrent major depressive disorder -Per pre-enrollment (01/31/22 page 16) described as MDD, recurrent severe without psychotic features. Per pre-enrollment, has been treated in the past with ECT, Trintellix, Doxepin, Caplyta. Admitted in early 2023 to [place] with a nxiety, racing thoughts, insomnia . Underwent ECT while there. She was then transferred to medical service for medical concerns after refusing her medications for several days. -Says she was having ECT 3x/week for months. Doesn't want to do anymore due to age. She feels mood is stable, feels anxious n ot every day . No SI/HI.-She reports more recent treatment with [...] in partial remission -Per pre-enrollment (01/31/22 page 24) described as generalized anxiety disorder. She has a complicated psychiatric history and follows closely with her psychiatrist Dr. Willett. Per pre-enrollment, has been treated in the past with ECT, Trintellix, Doxepin, Caplyta. Admitted in early 2023 to [facility] with a nxiety, racing thoughts, insomnia . Underwent ECT while there. She was then [...] (generalized anxiety disorder) -Per pre-enrollment (01/31/22 page 24), noted in [...] Doxepin, Caplyta. Admitted in early 2023 to [place] with a nxiety, racing thoughts, insomnia . Underwent ECT while there. She was then [...] Doxepin, Caplyta. Admitted in early 2023 to [place] with a nxiety, racing thoughts, insomnia . Underwent ECT while there. She was then transferred to medical service for medical concerns after refusing her medications for several days. -Says she was having ECT 3x/week for months. Doesn't want to do anymore due to age. She feels mood is stable, feels anxious n ot every day . No SI/HI.-She reports more recent treatment with [...] presence -Per pre-enrollment (01/31/22 page 38) states d ementia as a discharge diagnosis and further in the record (page 44) states m ild vascular dementia however I do not have access to [...] periodic labs. Related to Hypothyroidism, unspecified type -02/2024 TC [...] No changes today. Related to Mixed hyperlipidemia -Per pre-enrollment (01/31/22 page 3); labs show HbA1c 5.7%. Never been diagnosed with diabetes.-08/2024 HbA1c 5.9%. 02/2024 HbA1c 6.1%, glucose 80 (non-fasting). -Continue routine screening. Lifestyle management. Related to Prediabetes -CT abd/pelvis with IV contrast 06/2024 showed [...] Doxepin, Caplyta. Admitted in early 2023 to [place] with a nxiety, racing thoughts, insomnia . Underwent ECT while there. She was then [...] Doxepin, Caplyta. Admitted in early 2023 to [place] with a nxiety, racing thoughts, insomnia . Underwent ECT while there. She was then transferred to medical service for medical concerns after refusing her medications for several days. -Says she got ECT 3x/week for months. Don't want to do anymore due to age. She feels mood is stable, feels anxious n ot every day . No SI/HI; no history of SI. -She [...] remission -Per pre-enrollment (01/31/22 page 38) states d ementia as a discharge diagnosis and further in the record (page 44) states m ild vascular dementia however I do not have access to [...] 3-6 months. Related to Mixed hyperlipidemia [facility] report she had a UTI not too long ago and it was v shandra bad per pt/spouse. They say she was treated [...] Doxepin, Caplyta. Admitted in early 2023 to [facility] with a nxiety, racing thoughts, insomnia . Underwent ECT while there. She was then [...] Doxepin, Caplyta. Admitted in early 2023 to [facility] with a nxiety, racing thoughts, insomnia . Underwent ECT while there. She was then transferred to medical service for medical concerns after refusing her medications for several days. -Says she got ECT 3x/week for months. Don't want to do anymore due to age. She feels mood is stable, feels anxious n ot every day . No SI/HI; no history of SI. -She [...] etiology. -Per pre-enrollment (01/31/22 page 23) states i ndeed the patient may have some underlying untreated sleep apnea. Likely, that the home sleep study was not adequate enough to make a diagnosis . It was recommended by pulmonary inpatient that [...] is possible however the history in the [facility] records suggests possible FARNAZ. Will explore possibility [...] Doxepin, Caplyta. Admitted in early 2023 to [place] with a nxiety, racing thoughts, insomnia . Underwent ECT while there. She was then [...] Doxepin, Caplyta. Admitted in early 2023 to [place] with a nxiety, racing thoughts, insomnia . Underwent ECT while there. She was then transferred to medical service for medical concerns after refusing her medications for several days. -Says she got ECT 3x/week for months. Don't want to do anymore due to age. She feels mood is stable, feels anxious n ot every day . No SI/HI; no history of SI. -She [...] type -Per pre-enrollment (01/31/22 page 38) states d ementia as a discharge diagnosis and further in the record (page 44) states m ild vascular dementia however I do not have access to [...] (01/31/22 pg 38), listed as discharge diagnosis s pondylosis without myelopathy or radiculopathy, lumbar region . Lumbar spine xray 07/2023 in pre-enrollment records states there is loss of L2 vertebral height with remote cement augmentation, loss of L1, T12 and T11 vertebral heights, likely old. -Patient reports a s urgery or procedure years ago, not sure exactly what it [...] medications, hypothyroidism. -Routine screening labs. Periodic weights. Production Assistant to see her for screening and counseling if indicated. Related to BMI 32.0-32.9,adult -Per pre-enrollment (01/31/22 pg 30).-BMI 32.2 today. -Routine screening labs. Periodic weights. Production Assistant to see her for screening and counseling [...] Doxepin, Caplyta. Admitted in early 2023 to [facility] with a nxiety, racing thoughts, insomnia . Underwent ECT while there. She was then [...] Related to POONAM (generalized anxiety disorder) -At [facility] appt, jinny gonsalves and spouse report she had a UTI not too long ago and it was v shandra bad per pt/spouse. They say she was treated with antibiotics and improved. She has no symptoms now aside from urinary incontinence overnight which has been going on for some time. Related to History of UTI -Per pre-enrollment (01/31/22 page 24), noted in problem list. Unclear if primary versus secondary. She did have parathyroid imaging in 03/2019 ([facility]) with results stating There is homogeneous [...] Doxepin, Caplyta. Admitted in early 2023 to [facility] with a nxiety, racing thoughts, insomnia . Underwent ECT while there. She was then transferred to medical service for medical concerns after refusing her medications for several days. -Says she got ECT 3x/week for months. Don't want to do anymore due to age. She feels mood is stable, feels anxious n ot every day . No SI/HI; no history of SI. -She [...] pre-enrollment, last performed 05/22/2022 with results stating t he breasts are extremely dense, with lowers the sensitivity of mammography . No significant abnormalities seen. Related to History [...]
--- NOTE | 2024-12-08 18:14 | MHC.OFFVISPS ---
Intake Intake Visit Reasons: depression Intake Note: Patient seen psychiatric follow-up with her status post discharge from the psychiatric unit. Unfortunately the patient is depressed anxious and ruminating about insomnia. Patient does have VNA clonazepam 1 mg doxepin 20 30 mg have not been helpful in the past she did do better with up to 100 mg of doxepin but given anticholinergic effects and possible conduction effects trying not to increase that dose. Patient had recently been changed from Vraylar to Latuda hopefully causing less in the way of akathisia she is on Cogentin 0.5 mg t.i.d. propranolol 10 mg t.i.d. to help with EPS and akathisia. We have been trying to avoid ECT given the fact that she does have vascular cognitive impairment. PATIENT'S IS ALSO GETTING SOMEWHAT FRUSTRATED AND DOES HAVE ANXIETY HIMSELF Allergies risperidone (From Risperdal) Allergy (Intermediate, Verified 11/08/24 13:12) UNKNOWN Sulfa (Sulfonamide Antibiotics) Allergy (Intermediate, Verified 11/08/24 13:12) rash From BENADRYL Allergy (Intermediate, Uncoded 11/08/24 13:12) DIZZY HPI- Psychiatric Chief Complaint: depression HPI Past Psychiatric History: Patient with long history of recurrent depression with multiple prior psychiatric hospitalizations. 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 no classic bipolar symptoms past depressive psychotic episodes not for a number of years Mental Status Exam Mental Status Exam Patient Appearance: Appropriate Patient Orientation: Person, Place and Situation Level of Consciousness: Awake and Alert Patient Behavior: Appropriate, Talkative, Cooperative and Good Eye Contact Mood Description: Appropriate and Apprehensive Affect Description: Withdrawn, Constricted and Apprehensive Patient Cognition Impaired: Yes Ability to Follow Directions: Good Speech Pattern: Spontaneous Speech Memory Description: Episodic Impaired Hallucinations: None Delusions: Not Present Thought Process: Rumination Thought Content: positive for [place], positive for Preoccupation, negative for Suicidal Ideation or negative for Homicidal Ideation Depressive Symptoms: Increased Anxiety, Insomnia, Unhappiness, Loss of Energy and Difficulty Concentrating Judgement: Fair Judgement and Insight: Improving akathisia patient denies SI denies hallucinations however irritable dysphoric Assessment and Plan Assessment & Plan (1) Major depressive disorder, recurrent severe without psychotic features: Status: Acute Code(s): F33.2 - Major depressive disorder, recurrent severe without psychotic features (2) POONAM (generalized anxiety disorder): Status: Acute Code(s): F41.1 - Generalized anxiety disorder (3) Vascular dementia with anxiety: Status: Acute Code(s): F01.54 - Vascular dementia, unspecified severity, with anxiety Plan Will try Belsomra for insomnia Rx inhibitors seem to be safe or with the elderly may not have the same propensity to promote dementia and may actually help with tau clearing. The patient's mood is somewhat dysphoric strongly encourage patient out of bed during the day some until light take a daily walk to retrain sleeps cycle she was doing that inpatient. Consider increase Latuda to 40 mg would consider escitalopram 5 mg. TMS has been somewhat helpful in the past. Stop hydroxyzine can also contribute to lethargy confusion. Patient's case also reviewed with her nurse practitioner through the pace program and also with her visiting nurse Medications: New suvorexant 10 mg PO BEDTIME 30 tabs 1RF 30 days Changed From clonazepam 1 mg PO BEDTIME 30 days 30 tabs 1RF To clonazepam 0.5 mg (1/2 x 1 mg) PO BEDTIME 15 tabs 1RF 30 days Discontinued hydroxyzine HCl Discontinued Reason: Doctor's Order 25 mg PO BEDTIME 30 days 30 tabs 1RF Counseling and coordination of Care Medication management counseling: Effectiveness, Side effects, Dosing range and Duration Diagnosis and Prognosis Counseling: Impact of diagnosis on life functions, Problematic behaviors secondary to diagnosis and Adequacy of current interventions Details-Diagnosis/Prognosis counseling: Strongly encourage sleep hygiene encourage behavioral activation total time 45 minutes patient seen with her Details: I spent [45] minutes reviewing the record, seeing the patient and documenting in the medical record. Counseling provided to the patient/caregiver as outlined below. Addressed patient/caregiver concerns regarding current medication regime including effective adherence. Addressed patient/caregiver concerns regarding diagnosis and prognosis including accuracy of diagnosis, prognosis over time, impact of diagnosis. Addressed patient/caregiver concerns regarding impact of recent stressors. [facility] Medical History (Updated 12/09/24 @ 00:02 by Background Daemon) Vascular dementia with anxiety Dementia Nocturnal hypoxia Severe recurrent major depression w/psychotic features, mood-congruent Has daytime drowsiness Preoperative examination Elevated glucose Screening for colon cancer Screening for diabetes mellitus Obesity (BMI 30-39.9) Confused but orients easily Depression, major, severe recurrence Abnormal serum protein electrophoresis Mild recurrent major depression Anxiety and depression Encounter for Medicare annual wellness exam Removal of nell Depression with anxiety Abdominal distention Weight gain Major depression, recurrent, full remission POONAM (generalized anxiety disorder) Hypothyroidism Hyperparathyroidism Multinodular thyroid Vitamin D deficiency Osteoporosis Surgical History Hx of colonoscopy Hx of kyphoplasty Hx of section Family History Father Myocardial infarction CVD (cardiovascular disease) Mother Dementia Alzheimer disease Other Mental health disorder Social History Household Members: Spouse Housing: House Do you presently have visiting nurse or other home services: Yes (Visiting nurse to fill medications) Alcohol intake: never Comment: 1:1 sitter at bedside Patient Tobacco Use Status: Never used Tobacco e-Cigarette/Vaping Use: Never Used Second Hand Smoke Exposure: No Advance Directives Date on File: 09/04/23 service: No Current occupational status: unemployed Sexual orientation: Straight/Heterosexual Cognitive needs: No Hearing needs: No Social History: Patient disabled has 1 son. Chronic anxiety has stable relationship with her mostly has not worked Substance History: none Trauma History: None noted Coding Level of Care Code Est Pt Level 4 (67983) Diagnoses Major depressive disorder, recurrent severe without psychotic features F33.2 POONAM (generalized anxiety disorder) F41.1 Vascular dementia with anxiety F01.54
== END 2024-12-08 15:17 | disposition home or self-care (01) ==
LOC: HO.HOP 14:23
PROVIDERS: PCP Nurse Practitioner Family; Visit Provider Psychiatry & Neurology Psychiatry
DX: F33.2 Major depressive disorder, recurrent severe without psychotic features (principal); F41.1 Generalized anxiety disorder; F01.54 Vascular dementia, unspecified severity, with anxiety
CPT/HCPCS: 99214

== ENCOUNTER 2024-12-26 14:22 | Outpatient (AMB) | payer OTHER, SELFPAY ==
--- OUTSIDE RECORDS SUMMARY | 2024-12-22 04:10 | XMS_ITS | Continuity of Care Document ---
Author Organization [facility] Address [address] [address] Phone Care Team Providers Care Advertising Assistant Name Role Phone Ananda SLOT ROUTER, Liss Unavailable Unavailab le Allergies, Adverse Reactions, [...] Location Reason(s) For Visit Diagnoses Date Provider [facility], [address] [place] [address], [place], [place], [id number], [place] tel:[phone] [place] No Information [address] [place], [place], [id number], [place]. tel:[phone] [facility], [facility], [place], [place], [id number], [place] tel:[phone] [place] [facility] Evaluation (chief complaint) Moderate episode of recurrent major depressive disorderAkathisiaInsomn ia, unspecified type 0- 5 [address]iss. [address] [place], [place], [id number], [place]. tel:[phone] [facility], [facility], [place], [place], [id number], [place] tel:[phone] [place] Acute Visit (chief complaint) Recurrent major depressive disorder, in partial remissionGAD (generalized anxiety disorder) 5 [address] [place], [place], [id number], [place]. tel:[phone] [facility], [facility], [place], [place], [id number], [place] tel:[phone] [place] No Information Mar-1 2- 5 [address], [id number], [place]. tel:[phone] [facility], [facility], [place], [place], [id number], [place] tel:[phone] [place] No Information Mar-1 - 5 [address]. [address], [id number], [place]. tel:[phone] [facility], [facility], [place], [place], [id number], [place] tel:[phone] [place] Encounter for nutritional assessment Mar-0 3-202 5 Normile Keena. [address], [id number], [place]. tel:[phone] [facility], [facility], [place], [place], [id number], [place] tel:[phone] [place] Semi-Annual (chief complaint) Pulmonary noduleMixed hyperlipidemiaPrediabet esHypothyroidism, unspecified typeStage 3a chronic kidney diseaseMild dementia with other behavioral disturbance, unspecified dementia typeOsteoporosis, unspecified osteoporosis type, unspecified pathological fracture presenceOther specified personal risk factors, not elsewhere classifiedRecurrent major depressive disorder, in partial remissionGAD (generalized anxiety disorder)Hyperparathyro idismVitamin D deficiency - 5 [address]. [address], [place], [place], [id number], [place]. tel:[phone] [facility], [address] [address], [place], [place], [id number], [place] tel:[phone] [place] [facility] Evaluation (chief complaint) History of UTIMixed hyperlipidemiaHypothyro idism, unspecified typeOsteoporosis without current pathological fracture, unspecified osteoporosis typeHyperparathyroidism Viral gastroenteritisStage 3a chronic kidney diseaseMild dementia with other behavioral disturbance, unspecified dementia typeRecurrent major depressive disorder, in full remissionGAD (generalized anxiety disorder) 5 [address], [place], [place], [id number], [place]. tel:[phone] [facility], [facility], [place], [place], [id number], [place] tel:[phone] [place] Recurrent major depressive disorder, in partial remissionGAD (generalized anxiety disorder) 4 [address] [place], [place], [id number], [place]. tel:[phone] [facility], [address] [address], [place], [place], [id number], [place] tel:[phone] [place] Acute Visit (chief complaint) Genitourinary syndrome of menopause 4 [address] Liss[address] [place], [place], [id number], [place]. tel:[phone] [facility], [address], [place], [place], [id number], [place] tel:[phone] [place] Follow-up (chief complaint) Shortness of breathRecurrent major depressive disorder, in partial remissionGAD (generalized anxiety disorder)Insomnia, unspecified type 4 [address] [place], [place], [id number], [place]. tel:[phone] [facility], 1 [facility] [address], [place], [place], [id number], [place] tel:[phone] [place] Follow-up (chief complaint) Mixed hyperlipidemiaOsteoporo sis without current pathological fracture, unspecified osteoporosis typeAdvanced directives, counseling/discussion 4 [address], [place], [id number], [place]. tel:[phone] [facility], [facility], [place], [place], [id number], [place] tel:[phone] [place] Other specified personal risk factors, not elsewhere classifiedUnspecified visual disturbance Sep- 4 [address], [id number], [place]. tel:[phone] [facility], [address] [facility] [address], [place], [place], [id number], [place] tel:[phone] [place] No Information Sep- 4 [address] Liss. [address] [place], [place], [id number], [place]. tel:[phone] [facility], [address] [facility] [address], [place], [place], [id number], [place] tel:[phone] [place] Major depressive disorder, recurrent, in partial remission Sep-- 4 [address] Liss. [address] [place], [place], [id number], [place]. tel:[phone] [facility], [address] [facility], [place], [place], [id number], [place] tel:[phone] [place] Encounter for rehabilitation evaluation Sep-0 4 Javier Romano. [address] [place], [place], [id number], [place]. tel:[phone] [facility], 1 [facility] [address], [place], [place], [id number], [place] tel:[phone] [place] Encounter for rehabilitation evaluation Sep- 4 Gerardo Steve. [address] [place], [address]. tel:[phone] [facility], [address] [facility] [address], [place], [place], [id number], [place] tel:[phone] [place] Encounter for nutritional assessmentClass 1 obesity with serious comorbidity and body mass index (BMI) of 32.0 to 32.9 in adult, unspecified obesity typeBody mass index [BMI] 32.0-32.9, adult Sep-0 4 Normile Keena. [address] [facility] [place] [place], [id number], [place]. tel:[phone] [facility], [address] [facility] [address], [place], [place], [id number], [place] tel:[phone] [place] Post Enrollment Evaluation (chief complaint) History of mammogramStage 3a chronic kidney diseasePrediabetesRecur rent major depressive disorder, in partial remissionHypothyroidism , unspecified typeVitamin D deficiencyHyperparathyr oidismHistory of UTIGAD (generalized anxiety disorder)Mixed hyperlipidemiaObesity, Class I, BMI 30.0-34.9 (see actual BMI)BMI 32.0-32.9,adultLumbar spondylosisMild dementia with other behavioral disturbance, unspecified dementia typeOsteoporosis without current pathological fracture, unspecified osteoporosis type Sep-0 4 [address] [facility] [place], [id number], [place]. tel:[phone] [facility], [address] [facility] [address], [place], [place], [id number], [place] tel:[phone] [place] No Information Feb- 4 Frantz Brink. [address], [place], [place], [id number], . tel:[phone] Family History Family Member Type Diagnosis Age [...] Registry Payers Payer name Insurance type Covered alliance party ID Authorcandicea divya(s) [employer] 16 [id number] [employer] 16 [id number] Pun[employer] 16 [id number] Pun[employer] 16 [id number] Social History Type Description Quantity Date Captured Comments Sex Female Smoking Status No Information Chief Complaint And Reason For Visit No Information Plan Of Treatment Date Type Action Status Referral Ordered: Big Data Platform Architect (related to Visual changes) ordered Referral Ordered: Referrals: Dentistry. Evaluate and treat ordered Referral Ordered: Referrals: Big Data Platform Architect. Evaluate and treat ordered Referral Referred To: Dr. Willett Ordered: Referrals: Psychiatry. Dr. Willett Appointment date/timeframe: 02/16/2024 ordered Future Order: Lab Order Urinalys is, Macroscopic ([id number]), Ordered on: Ordered History Of Present Illness Encounter Date Complaint History Of Prese nt Illness Post Hospital Evaluation Judy loco s a 74 year old female who is seen today for a post-hospital evaluation. She is accompanied today by her . In review of recent events, Judy was admitted to [facility] from 11/08-12/01 with worsening depression symptoms. [...] We discussed Judy's presentation today and Dr. Wileltt advised this appears to be akathisia which [...] Immunizations: UTD. History of ER visits/Falls/SNF/Hospitalizations:-Admitted to [facility] from 07/04-07/13/24 with severe depression. -06/18/24 To [facility] ER with vomiting, treated for viral GI illness. -Before COVID, was on 5th floor x 1.5 years at [place] on their psychiatric unit. Then was for a few months on 1st floor in a unit x few months for psychiatric concerns. Specialists:-Dr. Fausto Willett at [facility], psychiatrist. Judy has been with Dr. Willett for 20 years and given her complex psychiatric history she will continue to see him. -No other specialists. Advanced directives:-HCP on file dated 08/07/2023 indicating her primary HCP is Boris Rodrigues (spouse and secondary is Irmaberonica Rodrigues (son). HCP not invoked as far as patient and spouse are aware.-MOLST: MOLST on file dated 03/14/24 indicating she is a full code, yes to intubation (short-term only), yes to non-invasive ventilation, yes transfer to hospital, yes to dialysis, yes to short-term artificial nutrition, yes to artificial hydration. Confirmed wishes today. Social: Judy lives in the community in [place] with her , just the 2 of them. They have always lived in the area. They have family in [place] and [place]. Rahul has a son and daughter from [...] think possibly 1 year ago at [facility]. Bone density: Unclear when her last [...] facet joint arthropathy . DEXA ordered at [facility]; message sent to follow up. Mobility: [...] of recent events, Judy was seen at [facility] on 06/18/24 with vomiting and LLQ [...] pain.-Drink lots of water. -Call us at [phone] if you feel you are getting worse [...] today.History of ER visits/Falls/SNF/Hospitalizations:-05/25/23 -06/14/23: Inpatient at [facility]. No other hospitalizations, ER visits since then. -Before COVID, was on 5th floor x 1.5 years at [place] on their psychiatric unit. Then was for a few months on 1st floor in a unit x few months for psychiatric concerns. Specialists:-Dr. Fausto Willett at [facility]. Seeing him tomorrow. He is a [...] Social: Judy lives in the community in [place] with her , just the 2 of them. They have always lived in the area. They have family in [place] and [place]. Rahul's has a son and daughter from [...] think possibly 1 year ago at [facility]. Bone density: Unclear when her last DEXA was. Not seen in pre-enrollment records from [place]. Osteoporosis listed in her problem list with [...] is possible however the history in the [facility] records suggests possible FARNAZ. Will explore possibility of repeat sleep study. Related to Insomnia, unspecified type -Judy is intermitte ntly admitted to [place] psychiatric inpatient unit for worsening depression. She [...] Doxepin, [place]. -She is intermittently admitted to [place] psychiatric inpatient unit for worsening depression. She [...] Doxepin, [place]. Admitted in early 2023 to [place] with a nxiety, racing thoughts, insomnia . [...] Doxepin, [place]. Admitted in early 2023 to [place] with a nxiety, racing thoughts, insomnia . [...] Doxepin, [place]. Admitted in early 2023 to [place] with a nxiety, racing thoughts, insomnia . [...] Doxepin, [place]. Admitted in early 2023 to [place] with a nxiety, racing thoughts, insomnia . [...] Doxepin, [place]. Admitted in early 2023 to [place] with a nxiety, racing thoughts, insomnia . [...] Doxepin, [place]. Admitted in early 2023 to [place] with a nxiety, racing thoughts, insomnia . [...] 3-6 months. Related to Mixed hyperlipidemia -[facility] jinny t and spouse report she had [...] Doxepin, [place]. Admitted in early 2023 to [place] with a nxiety, racing thoughts, insomnia . [...] Doxepin, [place]. Admitted in early 2023 to [place] with a nxiety, racing thoughts, insomnia . [...] is possible however the history in the [facility] records suggests possible FARNAZ. Will explore [...] Doxepin, [place]. Admitted in early 2023 to [place] with a nxiety, racing thoughts, insomnia . [...] Doxepin, [place]. Admitted in early 2023 to [facility] with a nxiety, racing thoughts, insomnia . [...] medications, hypothyroidism. -Routine screening labs. Periodic weights. Head Of Housekeeping to see her for screening and counseling if indicated. Related to BMI 32.0-32.9,adult -Per pre-enrollment (01/31/22 pg 30).-BMI 32.2 today. -Routine screening labs. Periodic weights. Head Of Housekeeping to see her for screening and counseling [...] Doxepin, [place]. Admitted in early 2023 to [place] with a nxiety, racing thoughts, insomnia . [...] Related to POONAM (generalized anxiety disorder) -At [facility] appt, jinny t and spouse report [...] She did have parathyroid imaging in 03/2019 ([facility]) with results stating There is homogeneous [...] Doxepin, [place]. Admitted in early 2023 to [place] with a nxiety, racing thoughts, insomnia . [...]
--- NOTE | 2024-12-27 16:27 | A.OFFPSYCH_ITS ---
Intake Intake Visit Reasons: depression Allergies risperidone (From Risperdal) Allergy (Intermediate, Verified 11/08/24 13:12) UNKNOWN Sulfa (Sulfonamide Antibiotics) Allergy (Intermediate, Verified 11/08/24 13:12) rash From BENADRYL Allergy (Intermediate, Uncoded 11/08/24 13:12) DIZZY HPI- Psychiatric Chief Complaint: depression HPI Narrative: Pt somewhat improved still apathetic not going to the senior center not taking walks during the day. No SI her has also been having problems with his mood. Patient continues to have VNA support Past Psychiatric History: Patient with long history of recurrent depression with multiple prior psychiatric hospitalizations. 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 no classic bipolar symptoms past depressive psychotic episodes not for a number of years Mental Status Exam Mental Status Exam Patient Appearance: Appropriate Patient Orientation: Person, Place and Situation Level of Consciousness: Awake and Alert Patient Behavior: Appropriate, Talkative, Cooperative and Good Eye Contact Mood Description: Depressed Affect Description: Withdrawn and Constricted Patient Cognition Impaired: Yes Ability to Follow Directions: Good Speech Pattern: Spontaneous Speech Memory Description: Episodic Impaired Hallucinations: None Delusions: Not Present Thought Process: Rumination Thought Content: positive for [place], positive for Preoccupation, negative for Suicidal Ideation or negative for Homicidal Ideation Depressive Symptoms: Increased Anxiety, Unhappiness and Loss of Energy Judgement: Fair Judgement and Insight: Improving akathisia patient denies SI denies hallucinations much less anxious and agitated Assessment and Plan Assessment & Plan (1) POONAM (generalized anxiety disorder): Status: Acute Code(s): F41.1 - Generalized anxiety disorder (2) Major depressive disorder, recurrent severe without psychotic features: Status: Acute Code(s): F33.2 - Major depressive disorder, recurrent severe without psychotic features Plan Patient with some improvement on Latuda 20 mg does have some degree of akathisia but improved mood increase Latuda to 40 mg daily increase doxepin to 30 mg at bedtime mirtazapine 30 mg gabapentin has been discontinued. Patient was more organized flat dysphoric but less confused and she sometimes gets with severe depression combined with vascular dementia Medications: Changed From lurasidone 20 mg PO DAILY 30 days 30 tabs 1RF To lurasidone must administer with food (at least 350 calories) 40 mg PO DAILY 30 tabs 2RF From doxepin 20 mg (2 x 10 mg) PO BEDTIME 30 days 60 caps 1RF To doxepin 30 mg (3 x 10 mg) PO BEDTIME 90 caps 1RF 30 days From mirtazapine 15 mg PO BEDTIME 30 days 30 tabs 1RF To mirtazapine 30 mg (2 x 15 mg) PO BEDTIME 60 tabs 1RF 30 days Discontinued gabapentin Discontinued Reason: Doctor's Order 100 mg PO BID 30 days 60 caps 1RF gabapentin Discontinued Reason: Doctor's Order 300 mg PO BEDTIME 30 days 30 caps 1RF Counseling and coordination of Care Medication management counseling: Effectiveness, Side effects and Dosing range Diagnosis and Prognosis Counseling: Impact of diagnosis on life functions and Adequacy of current interventions Details: I spent [30] minutes reviewing the record, seeing the patient and documenting in the medical record. Counseling provided to the patient/caregiver as outlined below. Addressed patient/caregiver concerns regarding current medication regime including effective adherence. Addressed patient/caregiver concerns regarding diagnosis and prognosis including accuracy of diagnosis, prognosis over time, impact of diagnosis. Addressed patient/caregiver concerns regarding impact of recent stressors. [facility] Medical History (Updated 12/09/24 @ 00:02 by Tasha Loyola) Vascular dementia with anxiety Dementia Nocturnal hypoxia Severe recurrent major depression w/psychotic features, mood-congruent Has daytime drowsiness Preoperative examination Elevated glucose Screening for colon cancer Screening for diabetes mellitus Obesity (BMI 30-39.9) Confused but orients easily Depression, major, severe recurrence Abnormal serum protein electrophoresis Mild recurrent major depression Anxiety and depression Encounter for Medicare annual wellness exam Removal of nell Depression with anxiety Abdominal distention Weight gain Major depression, recurrent, full remission POONAM (generalized anxiety disorder) Hypothyroidism Hyperparathyroidism Multinodular thyroid Vitamin D deficiency Osteoporosis Surgical History Hx of colonoscopy Hx of kyphoplasty Hx of section Family History Father Myocardial infarction CVD (cardiovascular disease) Mother Dementia Alzheimer disease Other Mental health disorder Social History Household Members: Spouse Housing: House Do you presently have visiting nurse or other home services: Yes (Visiting nurse to fill medications) Alcohol intake: never Comment: 1:1 sitter at bedside Patient Tobacco Use Status: Never used Tobacco e-Cigarette/Vaping Use: Never Used Second Hand Smoke Exposure: No Advance Directives Date on File: 09/04/23 service: No Current occupational status: unemployed Sexual orientation: Straight/Heterosexual Cognitive needs: No Hearing needs: No Social History: Patient disabled has 1 son. Chronic anxiety has stable relationship with her mostly has not worked Substance History: none Trauma History: None noted Coding Level of Care Code Est Pt Level 4 (73743) Diagnoses POONAM (generalized anxiety disorder) F41.1 Major depressive disorder, recurrent severe without psychotic features F33.2
== END 2024-12-26 15:02 | disposition home or self-care (01) ==
LOC: HO.HOP 14:22
PROVIDERS: PCP Nurse Practitioner Family; Visit Provider Psychiatry & Neurology Psychiatry
DX: F41.1 Generalized anxiety disorder (principal); F33.2 Major depressive disorder, recurrent severe without psychotic features
CPT/HCPCS: 99214

== ENCOUNTER 2025-01-18 13:10 | Outpatient (AMB) | payer OTHER, SELFPAY ==
--- OUTSIDE RECORDS SUMMARY | 2024-12-22 04:10 | XMS_ITS | Continuity of Care Document ---
[facility] [place] Address [address] [address] Phone Care Team Providers Care Obstetrics Specialist Name Role Phone Ananda MEN'S CUSTOM HAIR PIECE CONSULTANT, Liss Unavailable Unavailab le Allergies, Adverse Reactions, [...] Location Reason(s) For Visit Diagnoses Date Provider [facility], [address] [place] [address], [place], [place], [id number], [place] tel:[phone] [place] No Information [address] [place], [place], [id number], [place]. tel:[phone] [facility], [address] [facility], [place], [place], [id number], [place] tel:[phone] [place] [facility] Evaluation (chief complaint) Moderate episode of recurrent major depressive disorderAkathisiaInsomn ia, unspecified type 0- 5 [address] [place], [place], [id number], [place]. tel:[phone] [facility], [address] [facility], [place], [place], [id number], [place] tel:[phone] [place] Acute Visit (chief complaint) Recurrent major depressive disorder, in partial remissionGAD (generalized anxiety disorder) [address], [place], [id number], [place]. tel:[phone] [facility], [address] [facility], [place], [place], [id number], [place] tel:[phone] [place] No Information Mar-1 2- 5 [address], [place], [id number], [place]. tel:[phone] [facility], [address] [facility], [place], [place], [id number], [place] tel:[phone] [place] No Information Mar-1 - 5 [address], [place], [id number], [place]. tel:[phone] [facility], [address] [facility], [place], [place], [id number], [place] tel:[phone] [place] Encounter for nutritional assessment Mar-0 3-202 5 [address], [place], [id number], [place]. tel:[phone] [facility], [address] [facility], [place], [place], [id number], [place] tel:[phone] [place] Semi-Annual (chief complaint) Pulmonary noduleMixed hyperlipidemiaPrediabet esHypothyroidism, unspecified typeStage 3a chronic kidney diseaseMild dementia with other behavioral disturbance, unspecified dementia typeOsteoporosis, unspecified osteoporosis type, unspecified pathological fracture presenceOther specified personal risk factors, not elsewhere classifiedRecurrent major depressive disorder, in partial remissionGAD (generalized anxiety disorder)Hyperparathyro idismVitamin D deficiency - 5 [address], [place], [place], [id number], [place]. tel:[phone] [facility], [address] [address], [place], [place], [id number], [place] tel:[phone] [place] [facility] Evaluation (chief complaint) History of UTIMixed hyperlipidemiaHypothyro idism, unspecified typeOsteoporosis without current pathological fracture, unspecified osteoporosis typeHyperparathyroidism Viral gastroenteritisStage 3a chronic kidney diseaseMild dementia with other behavioral disturbance, unspecified dementia typeRecurrent major depressive disorder, in full remissionGAD (generalized anxiety disorder) [address], [place], [place], [id number], [place]. tel:[phone] [facility], [address] [facility], [place], [place], [id number], [place] tel:[phone] [place] Recurrent major depressive disorder, in partial remissionGAD (generalized anxiety disorder) [address] [place], [place], [id number], [place]. tel:[phone] [facility], [address] [address], [place], [place], [id number], [place] tel:[phone] [place] Acute Visit (chief complaint) Genitourinary syndrome of menopause 4 [address] [place], [place], [id number], [place]. tel:[phone] [facility], [address], [place], [place], [id number], [place] tel:[phone] [place] Follow-up (chief complaint) Shortness of breathRecurrent major depressive disorder, in partial remissionGAD (generalized anxiety disorder)Insomnia, unspecified type 4 [address] [place], [place], [id number], [place]. tel:[phone] [facility], [address], [place], [place], [id number], [place] tel:[phone] [place] Follow-up (chief complaint) Mixed hyperlipidemiaOsteoporo sis without current pathological fracture, unspecified osteoporosis typeAdvanced directives, counseling/discussion 4 [address], [place], [id number], [place]. tel:[phone] [facility], [address] [facility], [place], [place], [id number], [place] tel:[phone] [place] Other specified personal risk factors, not elsewhere classifiedUnspecified visual disturbance Sep- 4 [address], [place], [id number], [place]. tel:[phone] [facility], [address] [facility] [address] [facility], [place], [place], [id number], [place] tel:[phone] [place] No Information Sep- 4 [address] [place], [place], [id number], [place]. tel:[phone] [facility], [address] [facility] [address] [facility], [place], [place], [id number], [place] tel:[phone] [place] Major depressive disorder, recurrent, in partial remission Sep-- 4 [address] [place], [place], [id number], [place]. tel:[phone] [facility], [address] [facility], [place], [place], [id number], [place] tel:[phone] [place] Encounter for rehabilitation evaluation Sep-0 4 Javier [address]mano. [address] [place], [place], [id number], [place]. tel:[phone] [facility], [address] [facility], [place], [place], [id number], [place] tel:[phone] [place] Encounter for rehabilitation evaluation Sep- 4 Gerardo Steve. [address] [place], [address]. tel:[phone] [facility], [address] [facility] [address] [facility], [place], [place], [id number], [place] tel:[phone] [place] Encounter for nutritional assessmentClass 1 obesity with serious comorbidity and body mass index (BMI) of 32.0 to 32.9 in adult, unspecified obesity typeBody mass index [BMI] 32.0-32.9, adult Sep-0 4 [address]ena. [address] [facility] [place], [id number], [place]. tel:[phone] [facility], [address] [facility] [address] [facility], [place], [place], [id number], [place] tel:[phone] [place] Post Enrollment Evaluation (chief complaint) History of mammogramStage 3a chronic kidney diseasePrediabetesRecur rent major depressive disorder, in partial remissionHypothyroidism , unspecified typeVitamin D deficiencyHyperparathyr oidismHistory of UTIGAD (generalized anxiety disorder)Mixed hyperlipidemiaObesity, Class I, BMI 30.0-34.9 (see actual BMI)BMI 32.0-32.9,adultLumbar spondylosisMild dementia with other behavioral disturbance, unspecified dementia typeOsteoporosis without current pathological fracture, unspecified osteoporosis type Sep-0 4 [address] [facility], [id number], [place]. tel:[phone] [facility], [address] [facility] [address] [facility], [place], [place], [id number], [place] tel:[phone] [place] No Information Feb- Frantz Brink. [address], [place], [place], [id number], . tel:[phone] Family History Family Member Type Diagnosis Age [...] Insurance type Covered constitution party ID Authorcandicea jose raulbayron(s) Tagged 16 [id number] Tagged 16 [id number] Tagged 16 [id number] Tagged 16 [id number] Social History Type Description Quantity Date Captured Comments Sex Female Smoking Status No Information Chief Complaint And Reason For Visit No Information Plan Of Treatment Date Type Action Status Referral Ordered: Hotel Or Motel Cleaning Supervisor (related to Visual changes) ordered Referral Ordered: Referrals: Dentistry. Evaluate and treat ordered Referral Ordered: Referrals: Hotel Or Motel Cleaning Supervisor. Evaluate and treat ordered Referral Referred To: Dr. Willett Ordered: Referrals: Psychiatry. Dr. Willett Appointment date/timeframe: 02/16/2024 ordered Appointment Judy Rodrigues BOOKED* Appointment Judy Rodrigues BOOKED Future Order: Lab Order Urinalys is, Macroscopic ([id number]), Ordered on: Ordered History Of Present Illness Encounter Date Complaint History Of Prese nt Illness Post Hospital Evaluation Judy loco s a 74 year old female who is seen today for a post-hospital evaluation. She is accompanied today by her . In review of recent events, Judy was admitted to [facility] psych from 11/08-12/01 with worsening depression symptoms. [...] struggling with his own health at times. uJdy has no specific complaints today and tells [...] Immunizations: UTD. History of ER visits/Falls/SNF/Hospitalizations:-Admitted to [facility] from 07/04-07/13/24 with severe depression. -06/18/24 To [facility] ER with vomiting, treated for viral GI illness. -Before COVID, was on 5th floor x 1.5 years at [place] on their psychiatric unit. Then was for a few months on 1st floor in a unit x few months for psychiatric concerns. Specialists:-Dr. Fausto Willett at [facility], psychiatrist. Judy has been with Dr. [...] Social: Judy lives in the community in [place] with her , just the 2 of them. They have always lived in the area. They have family in [place] and [place]. Rahul has a son and daughter from [...] they think possibly 1 year ago at [facility]. Bone density: Unclear when her last [...] facet joint arthropathy . DEXA ordered at [facility]; message sent to follow up. Mobility: Walks [...] of recent events, Judy was seen at [facility] on 06/18/24 with vomiting and LLQ abdominal [...] pain.-Drink lots of water. -Call us at [phone] if you feel you are getting worse [...] today.History of ER visits/Falls/SNF/Hospitalizations:-05/25/23 -06/14/23: Inpatient at [facility]. No other hospitalizations, ER visits since then. -Before COVID, was on 5th floor x 1.5 years at [place] on their psychiatric unit. Then was for a few months on 1st floor in a unit x few months for psychiatric concerns. Specialists:-Dr. Fausto Willett at [facility]. Seeing him tomorrow. He is a [...] Social: Judy lives in the community in [place] with her , just the 2 of them. They have always lived in the area. They have family in [place] and [place]. Rahul's has a son and daughter from a [...] they think possibly 1 year ago at [facility]. Bone density: Unclear when her last DEXA was. Not seen in pre-enrollment records from [place]. Osteoporosis listed in her problem list with [...] is possible however the history in the [facility] records suggests possible FRANAZ. Will explore possibility of repeat sleep study. Related to Insomnia, unspecified type -Judy is intermitte ntly admitted to [place] psychiatric inpatient unit for worsening depression. She [...] Doxepin, Caplyta. -She is intermittently admitted to [place] psychiatric inpatient unit for worsening depression. She [...] major depressive disorder -Per pre-enrollment (01/31/22 page 24) described as generalized anxiety disorder. She has a complicated psychiatric history and follows closely with her psychiatrist Dr. Willett. Per pre-enrollment, has been treated in the past with ECT, Trintellix, Doxepin, Caplyta. Admitted in early 2023 to [place] with a nxiety, racing thoughts, insomnia . [...] Doxepin, Caplyta. Admitted in early 2023 to [place] with a nxiety, racing thoughts, insomnia . [...] partial remission -Per pre-enrollment (01/31/22 page 24), noted in [...] Doxepin, Caplyta. Admitted in early 2023 to [place] with a nxiety, racing thoughts, insomnia . [...] Doxepin, Cap[place]ta. Admitted in early 2023 to [place] with a nxiety, racing thoughts, insomnia . [...] Doxepin, Caplyta. Admitted in early 2023 to [place] with a nxiety, racing thoughts, insomnia . [...] Doxepin, Caplyta. Admitted in early 2023 to [place] with a nxiety, racing thoughts, insomnia . [...] 3-6 months. Related to Mixed hyperlipidemia -At [facility] appt, jinny gonsalves and spouse report she [...] Doxepin, Caplyta. Admitted in early 2023 to [place] with a nxiety, racing thoughts, insomnia . [...] Doxepin, Caplyta. Admitted in early 2023 to [place] with a nxiety, racing thoughts, insomnia . [...] is possible however the history in the E records suggests possible FARNAZ. Will explore possibility [...] Doxepin, Caplyta. Admitted in early 2023 to [place] with a nxiety, racing thoughts, insomnia . [...] Doxepin, Cap[place]ta. Admitted in early 2023 to [place] with a nxiety, racing thoughts, insomnia . [...] medications, hypothyroidism. -Routine screening labs. Periodic weights. Strategic Sourcing Manager to see her for screening and counseling if indicated. Related to BMI 32.0-32.9,adult Feb- -Per pre-enrollment (01/31/22 pg 30).-BMI 32.2 today. -Routine screening labs. Periodic weights. Strategic Sourcing Manager to see her for screening and counseling [...] Doxepin, Caplyta. Admitted in early 2023 to [place] with a nxiety, racing thoughts, insomnia . [...] Related to POONAM (generalized anxiety disorder) -At [facility] appt, jinny t and spouse report she [...] She did have parathyroid imaging in 03/2019 ([facility]) with results stating There is homogeneous uptake [...] Doxepin, Caplyta. Admitted in early 2023 to [place] with a nxiety, racing thoughts, insomnia . [...]
--- NOTE | 2025-01-18 14:10 | A.OFFPSYCH_ITS ---
Intake Intake Visit Reasons: depression Allergies risperidone (From Risperdal) Allergy (Intermediate, Verified 11/08/24 13:12) UNKNOWN Sulfa (Sulfonamide Antibiotics) Allergy (Intermediate, Verified 11/08/24 13:12) rash From BENADRYL Allergy (Intermediate, Uncoded 11/08/24 13:12) DIZZY Medication List - Last Reconciled 01/18/25 by Broderick Willett MD atorvastatin 20 mg PO BEDTIME 30 days benztropine 0.5 mg PO TID 30 days calcium carbonate-vitamin D3 500 mg-5 mcg (200 unit) (Oyster Shell Calcium- Vitamin D3) 1 tab PO BID clonazepam 0.5 mg (1/2 x 1 mg) PO BEDTIME 30 days donepezil 10 mg PO BEDTIME 30 days doxepin 30 mg (3 x 10 mg) PO BEDTIME 30 days folic acid 1 mg PO DAILY 30 days lurasidone 40 mg PO DAILY melatonin 10 mg (2 x 5 mg) PO BEDTIME 90 days memantine 10 mg PO DAILY 30 days mirtazapine 30 mg (2 x 15 mg) PO BEDTIME 30 days multivitamin 1 tab PO DAILY propranolol 10 mg See Protocol PO TID 90 days quetiapine 25 mg PO DAILY PRN suvorexant 15 mg PO BEDTIME 30 days thiamine mononitrate (vit B1) 100 mg PO BID 30 days HPI- Psychiatric Chief Complaint: depression HPI Narrative: There is some improvement in sleep Patient has continued to be depressed and ruminating. She has difficulty following recommendations of daily walks light exposure going to the [facility]. She continues to have some degree of akathisia but less than previously her unfortunately has also been having something of a hard time and this may be a contributing factor. Past Psychiatric History: Patient with long history of recurrent depression with multiple prior psychiatric hospitalizations. 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 no classic bipolar symptoms past depre ssive psychotic episodes not for a number of years Mental Status Exam Mental Status Exam Narrative: Patient casually dressed some rocking movements consistent with question TD but complicated by akathisia somewhat sad look Patient Appearance: Appropriate Patient Orientation: Person, Place and Situation Level of Consciousness: Awake and Alert Patient Behavior: Appropriate, Talkative, Cooperative and Good Eye Contact Mood Description: Depressed Affect Description: Withdrawn and Constricted Patient Cognition Impaired: Yes Ability to Follow Directions: Good Speech Pattern: Spontaneous Speech Memory Description: Episodic Impaired Hallucinations: None Delusions: Not Present Thought Process: Rumination and Linear Thought Content: positive for [place], positive for Preoccupation, negative for Suicidal Ideation or negative for Homicidal Ideation Depressive Symptoms: Increased Anxiety, Unhappiness, Loss of Energy and Difficulty Concentrating Judgement: Fair Judgement and Insight: Improving akathisia patient denies SI denies hallucinations much less anxious and agitated but remains depressed limited insight into the role of how her behaviors will affect her mood and sleep encourage daytime activation impulse control intact no SI Assessment and Plan Assessment & Plan (1) Major depressive disorder, recurrent severe without psychotic features: Status: Acute Code(s): F33.2 - Major depressive disorder, recurrent severe without psychotic features (2) POONAM (generalized anxiety disorder): Status: Acute Code(s): F41.1 - Generalized anxiety disorder Plan Patient has ongoing cognitive disorder but when less depressed more alert his a better history in in able to relate what medication she is taking. She continues to have some difficulty falling and staying asleep that is often 1 of her biggest complaints we have discussed the need to stay active exposure. Thiamine refilled discussed with patient and her trying to set a schedule for the [facility] patient might do better with adult day health and structure but doubt she would she would be willing to do this. Some improvement with Belsomra 10 mg remains with significant complains about sleeplessness and fatigue during the day will try 15 mg monitor for over-sedation warned regarding fall risk continue mirtazapine doxepin 40 mg 30 mg at bedtime Latuda 40 mg. 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 Needs encouragement for behavioral activation might benefit from retreatment with TMS which has been somewhat helpful in the past follow-up 4 weeks Medications: New multivitamin 1 tab PO DAILY 90 tabs 1RF Changed From suvorexant 10 mg PO BEDTIME 30 days 30 tabs 1RF To suvorexant 15 mg PO BEDTIME 30 tabs 2RF 30 days Refilled thiamine mononitrate (vit B1) 100 mg PO BID 60 tabs 3RF 30 days Counseling and coordination of Care Details: I spent [] minutes reviewing the record, seeing the patient and documenting in the medical record. Counseling provided to the patient/caregiver as outlined below. Addressed patient/caregiver concerns regarding current medication regime including effective adherence. Addressed patient/caregiver concerns regarding diagnosis and prognosis including accuracy of diagnosis, prognosis over time, impact of diagnosis. Addressed patient/caregiver concerns regarding impact of recent stressors. [facility] Medical History (Updated 12/09/24 @ 00:02 by Tasha Loyola) Vascular dementia with anxiety Dementia Nocturnal hypoxia Severe recurrent major depression w/psychotic features, mood-congruent Has daytime drowsiness Preoperative examination Elevated glucose Screening for colon cancer Screening for diabetes mellitus Obesity (BMI 30-39.9) Confused but orients easily Depression, major, severe recurrence Abnormal serum protein electrophoresis Mild recurrent major depression Anxiety and depression Encounter for Medicare annual wellness exam Removal of nell Depression with anxiety Abdominal distention Weight gain Major depression, recurrent, full remission POONAM (generalized anxiety disorder) Hypothyroidism Hyperparathyroidism Multinodular thyroid Vitamin D deficiency Osteoporosis Surgical History Hx of colonoscopy Hx of kyphoplasty Hx of section Family History Father Myocardial infarction CVD (cardiovascular disease) Mother Dementia Alzheimer disease Other Mental health disorder Social History Household Members: Spouse Housing: House Do you presently have visiting nurse or other home services: Yes (Visiting nurse to fill medications) Alcohol intake: never Comment: 1:1 sitter at bedside Patient Tobacco Use Status: Never used Tobacco e-Cigarette/Vaping Use: Never Used Second Hand Smoke Exposure: No Advance Directives Date on File: 09/04/23 service: No Current occupational status: unemployed Sexual orientation: Straight/Heterosexual Cognitive needs: No Hearing needs: No Social History: Patient disabled has 1 son. Chronic anxiety has stable relationship with her mostly has not worked Substance History: none Trauma History: None noted Coding Level of Care Code Est Pt Level 4 (81439) Diagnoses Major depressive disorder, recurrent severe without psychotic features F33.2 POONAM (generalized anxiety disorder) F41.1
--- OUTSIDE RECORDS SUMMARY | 2025-01-30 20:00 | XMS_ITS | Clinical Summary ---
Author Organization Unknown Care Team Providers Care Algebraist Name Role Phone [employer] [employer], WADE Unavailable Unavailab tamika MARY RN, FABIANO Unavailable Unavailable Payers Payer Name Policy Type Policy Number Effective Date Expira tion Date [facility] [place] [id number] [place] [id number] ON DEMAND MEDICARE - NGS OR BILLING - ABN [id number] Problems Condition Name Condition Details Condition Category Status Onset Date Resolution Date Last Treatment Date Treating Clinician Comments MAJOR DEPRESSV DISORDER, RECURRENT SEVERE W/O PSYCH FEATURES Active 11-08 00:00: 00 VASCULAR DEMENTIA, UNSP SEVERITY, WITHOUT BEH/PSYCH/MO OD/ANX Active 12-03 00:00: 00 DRUG INDUCED SUBACUTE DYSKINESIA Active 12-03 00:00: 00 INSOMNIA, UNSPECIFIED Active 12-03 00:00: 00 Allergies, Adverse Reactions, Alerts Allergy Name Allergy Type Status Severity Reaction(s) Onset Date Inactive Date Treating Clinician Comments SULFA (SULFONAMIDE ANTIBIOTICS) Propensity to adverse reactions Active 12-03 15:58: 48 BENADRYL Propensity to adverse reactions Active 12-03 15:59: 01 RISPERIDONE Propensity to adverse reactions Active 12-05 08:23: 34 Medications Ordered Medication Name Filled Medication Name Start Date Stop Date Current Medication? Ordering Clinician Indication Dosage Frequency Signature (SIG) Comments Components donepezil 10 mg tablet 11-19 00:00: 00 Yes [id number] 10 mg BEDTIME 10 mg BEDTIME (route: oral) Med Classific ation: Cognitive Disorder Therapy folic acid 1 mg tablet 11-19 00:00: 00 Yes [id number] 1 mg DAILY 1 mg BECK Y (route: oral) Med Classific ation: Electroly te Balance-N utritiona l Products lorazepam 0.5 mg tablet 11-19 00:00: 00 06-21 23:59 :00 No [id number] 0.5 mg 2 TIMES DAILY 0.5 mg 2 TIMES DAILY (route: oral) Med Classific ation: Central Nervous System Agents melatonin 5 mg capsule 14 00:00: 00 07-17 23:59 :00 No [id number] 5 mg BEDTIME 5 mg BEDTIME (route: oral) Med Classific ation: Central Nervous System Agents memantine 10 mg tablet 14 00:00: 00 09-27 23:59 :00 No [id number] 10 mg 2 TIMES DAILY 10 mg 2 TIMES DAILY (route: oral) Med Classific ation: Cognitive Disorder Therapy propranolol 10 mg tablet 11-19 00:00: 00 Yes [id number] 10 mg 3 TIMES DAILY 10 mg 3 TIMES DAILY (route: oral) Med Classific ation: Cardiovas cular Therapy Agents quetiapine 25 mg tablet 3-29 00:00: 00 11-19 00:00 :00 No [id number] 25 mg BEDTIME 25 mg BEDTIME (route: oral) Med Classific ation: Central Nervous System Agents quetiapine 25 mg tablet 3-29 00:00: 00 11-19 00:00 :00 No [id number] 25 mg BEDTIME 25 mg BEDTIME (route: oral) Med Classific ation: Central Nervous System Agents thiamine HCl (vitamin B1) 100 mg tablet 11-19 00:00: 00 07-17 23:59 :00 No [id number] 100 mg DAILY 100 mg DAILY (route: oral) Med Classific ation: Electroly te Balance-N utritiona l Products trazodone 50 mg tablet 11-19 00:00: 00 11-08 23:59 :00 No [id number] 50 mg BEDTIME 50 mg BEDTIME (route: oral) Med Classific ation: Central Nervous System Agents Trintellix 20 mg tablet 14 00:00: 00 06-21 23:59 :00 No [id number] 20 mg DAILY 20 mg DAILY (route: oral) Med Classific ation: Central Nervous System Agents mirtazapine 15 mg tablet 10-22 00:00: 00 11-19 00:00 :00 No [id number] 1 tablet BEDTIME 1 tablet BEDTIME (route: oral) Med Classific ation: Central Nervous System Agents Rexulti 0.5 mg tablet 10-22 00:00: 00 11-19 00:00 :00 No [id number] 1 tablet DAILY 1 tablet DAILY (route: oral) Med Classific ation: Central Nervous System Agents ibuprofen 200 mg tablet 11-19 00:00: 00 06-21 23:59 :00 No [id number] 1 tablet EVERY 6 HOURS 1 tablet EVERY 6 HOURS (route: oral) Med Classific ation: Analgesic , Anti-infl ammatory or Antipyret ic mirtazapine 30 mg tablet 11-19 00:00: 00 12-03 23:59 :00 No [id number] 1 tablet BEDTIME 1 tablet BEDTIME (route: oral) Med Classific ation: Central Nervous System Agents quetiapine 50 mg tablet 11-19 00:00: 00 06-21 23:59 :00 No [id number] 1 tablet BEDTIME 1 tablet BEDTIME (route: oral) Med Classific ation: Central Nervous System Agents Rexulti 1 mg tablet 11-19 00:00: 00 05-26 23:59 :00 No [id number] 1 tablet EVERY AM 1 tablet EVERY AM (route: oral) Med Classific ation: Central Nervous System Agents Rexulti 1 mg tablet 11-19 00:00: 00 06-21 23:59 :00 No [id number] 0.5 tablet BEDTIME 0.5 tablet BEDTIME (route: oral) Med Classific ation: Central Nervous System Agents atorvastati n 20 mg tablet 06-21 00:00: 00 Yes [id number] 1 tablet BEDTIME 1 tablet BEDTIME (route: oral) Med Classific ation: Cardiovas cular Therapy Agents lorazepam 1 mg tablet 06-21 00:00: 00 07-15 23:59 :00 No [id number] 1 mg BEDTIME 1 mg BEDTIME (route: oral) Med Classific ation: Central Nervous System Agents quetiapine 200 mg tablet -14 00:00: 00 07-17 23:59 :00 No [id number] 200 mg BEDTIME 200 mg BEDTIME (route: oral) Med Classific ation: Central Nervous System Agents Trintellix 20 mg tablet 06-21 00:00: 00 07-17 23:59 :00 No [id number] 1 tablet EVERY AM 1 tablet EVERY AM (route: oral) Med Classific ation: Central Nervous System Agents gabapentin 300 mg capsule 06-21 00:00: 00 11-08 23:59 :00 No [id number] 1 capsule BEDTIME 1 capsule BEDTIME (route: oral) Med Classific ation: Central Nervous System Agents ondansetron HCl 4 mg tablet 06-21 00:00: 00 07-17 23:59 :00 No [id number] 1 tablet EVERY 8 HOURS 1 tablet EVERY 8 HOURS (route: oral) Med Classific ation: Gastroint estinal Therapy Agents lorazepam 0.5 mg tablet 07-17 00:00: 00 11-08 23:59 :00 No [id number] 1 tablet 3 TIMES DAILY 1 tablet 3 TIMES DAILY (route: oral) Med Classific ation: Central Nervous System Agents pramipexole 0.25 mg tablet 07-17 00:00: 00 12-03 23:59 :00 No [id number] 1 tablet 3 TIMES DAILY 1 tablet 3 TIMES DAILY (route: oral) Med Classific ation: Central Nervous System Agents quetiapine 25 mg tablet 07-17 00:00: 00 07-26 23:59 :00 No [id number] 1 tablet BEDTIME 1 tablet BEDTIME (route: oral) Med Classific ation: Central Nervous System Agents thiamine HCl (vitamin B1) 100 mg tablet - 00:00: 00 Yes [id number] 1 tablet 2 TIMES DAILY 1 tablet 2 TIMES DAILY (route: oral) Med Classific ation: Electroly te Balance-N utritiona l Products Vraylar 1.5 mg capsule 2-09 00:00: 00 12-03 23:59 :00 No [id number] 1 capsule DAILY 1 capsule DAILY (route: oral) Med Classific ation: Central Nervous System Agents quetiapine 100 mg tablet 2-18 00:00: 00 08-23 23:59 :00 No [id number] 1 tablet BEDTIME 1 tablet BEDTIME (route: oral) Med Classific ation: Central Nervous System Agents Seroquel XR 150 mg tablet,exte nded release 3-18 00:00: 00 11-08 23:59 :00 No [id number] 1 tablet BEDTIME 1 tablet BEDTIME (route: oral) Med Classific ation: Central Nervous System Agents gabapentin 300 mg capsule -22 00:00: 00 11-08 23:59 :00 No [id number] 1 capsule BEDTIME 1 capsule BEDTIME (route: oral) Med Classific ation: Central Nervous System Agents melatonin 5 mg capsule 09-27 00:00: 00 Yes [id number] 1 capsule BEDTIME 1 capsule BEDTIME (route: oral) Med Classific ation: Central Nervous System Agents memantine 10 mg tablet 09-27 00:00: 00 12-03 23:59 :00 No [id number] 1 tablet EVERY AM 1 tablet EVERY AM (route: oral) Med Classific ation: Cognitive Disorder Therapy lorazepam 0.5 mg tablet - 00:00: 00 12-07 23:59 :00 No [id number] 1 tablet EVERY AM 1 tablet EVERY AM (route: oral) Med Classific ation: Central Nervous System Agents lorazepam 0.5 mg tablet 6- 00:00: 00 12-03 23:59 :00 No [id number] 2 tablet BEDTIME 2 tablet BEDTIME (route: oral) Med Classific ation: Central Nervous System Agents lorazepam 0.5 mg tablet 2024- 6-03 00:00: 00 12-03 23:59 :00 No [id number] 1 tablet EVERY AM 1 tablet EVERY AM (route: oral) Med Classific ation: Central Nervous System Agents lorazepam 0.5 mg tablet 11-08 00:00: 00 12-07 23:59 :00 No [id number] 2 tablet BEDTIME 2 tablet BEDTIME (route: oral) Med Classific ation: Central Nervous System Agents trazodone 50 mg tablet 11-08 00:00: 00 12-03 23:59 :00 No [id number] 2 tablet BEDTIME 2 tablet BEDTIME (route: oral) Med Classific ation: Central Nervous System Agents gabapentin 100 mg capsule 12-03 00:00: 00 12-27 23:59 :00 No [id number] 100 mg 2 TIMES DAILY 100 mg 2 TIMES DAILY (route: oral) Med Classific ation: Central Nervous System Agents gabapentin 300 mg capsule 12-03 00:00: 00 12-27 23:59 :00 No [id number] 300 capsule BEDTIME 300 capsule BEDTIME (route: oral) Med Classific ation: Central Nervous System Agents hydroxyzine HCl 25 mg tablet 12-03 00:00: 00 Yes [id number] 25 mg BEDTIME 25 mg BEDTIME (route: oral) Med Classific ation: Central Nervous System Agents lurasidone 20 mg tablet 12-03 00:00: 00 12-27 23:59 :00 No [id number] 20 mg DAILY 20 mg DAILY (route: oral) Med Classific ation: Central Nervous System Agents memantine 10 mg tablet 12-03 00:00: 00 12-07 23:59 :00 No [id number] 10 mg DAILY 10 mg DAILY (route: oral) Med Classific ation: Cognitive Disorder Therapy mirtazapine 15 mg tablet 12-03 00:00: 00 12-09 23:59 :00 No [id number] 15 mg BEDTIME 15 mg BEDTIME (route: oral) Med Classific ation: Central Nervous System Agents Oyster Shell + D3 250 mg-3.125 mcg (125 unit) tablet 12-03 00:00: 00 Yes [id number] 125 tablet 2 TIMES DAILY 125 tablet 2 TIMES DAILY (route: oral) Med Classific ation: Electroly te Balance-N utritiona l Products Trintellix 5 mg tablet 12-03 00:00: 00 12-27 23:59 :00 No [id number] 5 mg DAILY 5 mg DAILY (route: oral) Med Classific ation: Central Nervous System Agents clonazepam 0.5 mg tablet 12-09 00:00: 00 Yes [id number] 1 tablet BEDTIME 1 tablet BEDTIME (route: oral) Med Classific ation: Central Nervous System Agents mirtazapine 30 mg tablet 12-09 00:00: 00 Yes [id number] 1 tablet BEDTIME 1 tablet BEDTIME (route: oral) Med Classific ation: Central Nervous System Agents doxepin 10 mg capsule 12-27 00:00: 00 Yes [id number] 3 capsule BEDTIME 3 capsule BEDTIME (route: oral) Med Classific ation: Central Nervous System Agents lurasidone 40 mg tablet 12-27 00:00: 00 Yes [id number] 1 tablet DAILY 1 tablet DAILY (route: oral) Med Classific ation: Central Nervous System Agents Belsomra 10 mg tablet 12-27 00:00: 00 Yes [id number] 1 tablet BEDTIME 1 tablet BEDTIME (route: [...] BALANCE-N UTRITIONA L PRODUCTS VITAMIN B-12 ORAL 2017-06- 00:00: 00 06-16 00:00 :00 No 1,000 [...] TE BALANCE-N U[employer]ITIONA [employer]ODUCTS ALENDRONATE ORAL 2- 00:00: 00 08-13 00:00 :00 No 70 [...] NERVOUS SYSTEM AGENTS QUETIAPINE ORAL 9-05 00:00: 00 03-12 00:00 :00 No 50 mg1 TABLET AT BEDTIME 50 mg1 TABLET AT BEDTIME (route: ) Med Classific ation: CENTRAL NERVOUS SYSTEM AGENTS VENLAFAXINE ORAL - 00:00: 00 01-31 00:00 :00 No 150 [...] . Med Classific ation: ENDOCRINE LIDOCAINE TOPICAL 08 00:00: 00 08-15 00:00 :00 No 5 %1 PATCH LEAVE ON FOR 12 HOURS AND OFF FOR 12 HOURS 5 %1 PATCH LEAVE ON FOR 12 HOURS AND OFF FOR 12 HOURS (route: ) Alternate Route: TO SKIN . Med Classific ation: ANORECTAL PREPARATI ONS DOXEPIN ORAL 2017-06- 00:00: 00 07-04 00:00 :00 No 25 [...] ation: CENTRAL NERVOUS SYSTEM AGENTS LORAZEPAM ORAL 7-27 00:00: 00 01-31 00:00 :00 No 0.5 [...] ation: CENTRAL NERVOUS SYSTEM AGENTS DONEPEZIL ORAL 2 00:00: 00 08-15 00:00 :00 No 5 mg1 TABLET AT BEDTIME 5 mg1 TABLET AT BEDTIME (route: ) Med Classific ation: COGNITIVE DISORDER THERAPY DONEPEZIL ORAL 2017-06 00:00: 00 06-16 00:00 :00 No 5 mg1 TABLET AT BEDTIME 5 mg1 TABLET AT BEDTIME (route: ) Med Classific ation: COGNITIVE DISORDER THERAPY REXULTI ORAL 2017-06 00:00: 00 05-07 00:00 :00 No 2 mg1 TABLET ONCE DAILY 2 mg1 TABLET ONCE DAILY (route: ) Alternate Route: BY MOUTH . Med Classific ation: CENTRAL NERVOUS SYSTEM AGENTS REXULTI ORAL 2017-06 00:00: 00 04-09 00:00 :00 No 1 mg1 TABLET EVERY DAY AT 1 mg1 TABLET EVERY DAY AT (route: ) Med Classific ation: CENTRAL NERVOUS SYSTEM AGENTS VRAYLAR ORAL 07-16 00:00: 00 08-15 00:00 :00 No 1.5 mg1 CAPSULE EVERY DAY 1.5 mg1 CAPSULE EVERY DAY (route: ) Med Classific ation: CENTRAL NERVOUS SYSTEM AGENTS Vital Signs Vital Name Observation Time Observation Value Commen ts Temperature 2024-12-27 16:12:00.000 97.6 [degF] Temperature 2024-12-08 16:18:00.000 97.8 [degF] Pulse 2024-12-27 16:12:00.000 77 /min Pulse 2024-12-08 16:18:00.000 78 /min Pulse 2024-12-03 15:55:00.000 84 /min Respirations 2025-01-10 17:05:00.000 18 /min Respirations 2024-12-27 16:12:00.000 18 /min Systolic Blood Pressure 2025-01-10 17:05:00.000 110 mm [Hg] Systolic Blood Pressure 2024-12-27 16:12:00.000 102 mm [Hg] Systolic Blood Pressure 2024-12-03 15:55:00.000 116 mm [Hg] Diastolic Blood Pressure 2025-01-10 17:05:00.000 66 mm [Hg] Diastolic Blood Pressure 2024-12-27 16:12:00.000 67 mm [Hg] Diastolic Blood Pressure 2024-12-03 15:55:00.000 84 mm [Hg] Plan of Treatment Planned Activity [...] MEDICATION LIST WEEKLY ] Future Scheduled Test PATIENT MA Y [...] OF PATIENTS MENTAL/BEHAVIORAL STATUS, ASSESS VITAL SIGNS WEEKLY. ALLOW 2 PRNS FOR MEDICATION MANAGEMENT. [code = SKILLED NURSE TO O/A OF PATIENTS MENTAL/BEHAVIORAL STATUS, ASSESS VITAL SIGNS WEEKLY. ALLOW 2 PRNS FOR MEDICATION MANAGEMENT.] Future Scheduled Test SKILLED NU RSE FOR O/A OF PATIENT'S RISK FOR VIOLENCE TOWARD SELF AND TO PROVIDE INTERVENTION TECHNIQUES TO PROMOTE SAFETY TO PATIENT AND OTHERS [code = SKILLED NURSE FOR O/A OF PATIENT'S RISK FOR VIOLENCE TOWARD SELF AND TO PROVIDE INTERVENTION TECHNIQUES TO PROMOTE SAFETY TO PATIENT AND OTHERS] Future Scheduled Test SKILLED NU RSE MAY PICKUP AND TRANSPORT MEDICATIONS [code = SKILLED NURSE MAY PICKUP AND TRANSPORT MEDICATIONS] Future Scheduled Test MEDICATION S WILL BE HELD AND STORED IN LOCKBOX [code = MEDICATIONS WILL BE HELD AND STORED IN LOCKBOX] Future Scheduled Test SKILLED NU RSE FOR O/A OF GENERAL HEALTH STATUS OF PAIN, CARDIAC, RESPIRATORY, GASTROINTESTINAL, GENITOURINARY, SKIN, NEUROLOGIC, ENDOCRINE SYSTEMS TO IDENTIFY CHANGES ASSOCIATED WITH EXACERBATION FOR EARLY INTERVENTION OF COMPLICATIONS WEEKLY [code = SKILLED NURSE FOR O/A OF GENERAL HEALTH STATUS OF PAIN, CARDIAC, RESPIRATORY, GASTROINTESTINAL, GENITOURINARY, SKIN, NEUROLOGIC, ENDOCRINE SYSTEMS TO IDENTIFY CHANGES ASSOCIATED WITH EXACERBATION FOR EARLY INTERVENTION OF COMPLICATIONS WEEKLY] Future Scheduled Test SKILLED NU RSE FOR [...] AND ASSESSMENT TO IDENTIFY CHANGES ASSOCIATED WITH VASCULAR DEMENTIA AND TEACHING RELATED TO SAFETY MEASURES TO PREVENT INJURY, ELOPEMENT RISKS, BEHAVIOR CHANGES, ACTIVITIES, AND ENVIRONMENTAL CHANGES ALL SECONDARY TO IMPAIRED COGNITIVE STATUS. [code = SKILLED NURSE FOR OBSERVATION AND ASSESSMENT TO IDENTIFY CHANGES ASSOCIATED WITH VASCULAR DEMENTIA AND TEACHING RELATED TO SAFETY MEASURES [...] AWARENESS FOR SAFETY AND WILL NOTIFY CLINICAL COUNTY COURT JUDGE AND PHYSICIAN/PROVIDER WITH ANY CHANGE IN CONDITION. [code = SKILLED NURSE WILL MAINTAIN SITUATIONAL AWARENESS FOR SAFETY AND WILL NOTIFY CLINICAL COUNTY COURT JUDGE AND PHYSICIAN/PROVIDER WITH ANY CHANGE IN CONDITION.] Goal Patient Goal - S PETTY OUT OF THE HOSPITAL AND BE ABLE TO SLEEP BETTER Goal Provider Goal - A PLAN OF [...] Goal - PATIENT WILL REMAIN SAFE IN COMMUNITY WITHOUT EVIDENCE OF INJURY/HARM TO SELF OR OTHERS THROUGHOUT CERTIFICATION PERIOD. Goal Provider Goal - SKILLED NURSE PICKED UP AND TRANSPORTED MEDICATIONS FOR SAFETY. Goal Provider Goal - MEDICATION WILL BE STORED IN LOCKBOX FOR SAFETY. Goal Provider Goal - CHANGE IN GENERAL [...] PAIN INTERFERING WITH ACTIVITY EVIDENCED BY PAIN AT A LEVEL THAT IS ACCEPTABLE TO THE PATIENT AND PAIN LEVEL WITHIN ESTABLISHED PARAMETERS BY END OF CERTIFICATION PERIOD. Goal Provider [...] End Date/Time Encounter Type Admission Type Attending [facility] Care Department Encounter ID Discharge Date Discharge Status Discharge Condition Discharge Reason Percent Goals Met 2024-12-03 00:00:00 2025-01-31 00:00:00 Outpatient FABIANO [facility] [id number] 42.42
== END 2025-01-18 14:12 | disposition home or self-care (01) ==
LOC: HO.HOP 13:10
PROVIDERS: PCP Nurse Practitioner Family; Visit Provider Psychiatry & Neurology Psychiatry
DX: F33.2 Major depressive disorder, recurrent severe without psychotic features (principal); F41.1 Generalized anxiety disorder
CPT/HCPCS: 99214

== ENCOUNTER → 2025-02-14 10:29 | Outpatient (REF) | payer MEDICARE, SELFPAY ==
--- OUTSIDE RECORDS SUMMARY | 2025-02-14 04:57 | XMS_ITS | Continuity of Care Document ---
Author Organization [facility] Address [address] [address] Phone Care Team Providers Care Breaker Hand Name Role Phone Anai Alvarez NP Unavailable Unavailable Allergies, Adverse Reactions, Alerts Substance Reaction Status Criticality risperidone Active No Information Sulfa (Sulfonamide Antibiotics) Rash Active No Information DIPHENHYDRAMINE HCL Dizziness Active Unable t o Assess Medications Medication Instructions Dosage Effective Dates (start - stop) Status Comments lurasidone 20 mg tablet Script per psychiatry: Take 2 tablets by mouth once daily. - Active 02/01/25: Dose was increased by psychiatry. Rx per Dr. Willett. doxepin 10 mg capsule Script per psychiatry: Take 3 capsules (30mg) by mouth once daily at bedtime. - Active 02/01/25: Rx per Dr. Willett, dose increase. mirtazapine 30 mg tablet Rx per psychiatry. Take 1 tablet by mouth once daily. - Active 02/01/25: Dosin g increased by Dr. Willett. Belsomra 15 mg tablet Rx per Dr. Willett. Take 1 tablet by oral route once per night within 30 minutes of bedtime. (Only if at least 7 hrs remain before time of waking). - Active 02/01/25: Rx per Dr. Willett. benztropine 0.5 mg tablet Script per psychiatry: Take 1 tablet by mouth 3 times daily. - Active 12/05/24: Per inpatient psychiatry discharge clonazepam 1 mg tablet Script per psychiatry: Take 1 tablet by mouth once daily at bedtime. - Active 12/05/24: Per inpatient psychiatry discharge gabapentin 100 mg capsule Script per psychiatry: [...] psychiatry discharge, frequency changed to once daily Vitamin B-1 100 mg tablet Take 1 [...] For Visit Diagnoses Date Provider [facility], [address] [facility], [place], [place], [id number], tel:[phone] [place] No Information Feb-0 5 Kim Ospina. [address], [place], [place], [id number], [place]. tel:[phone] [facility], [facility], [place], [place], [id number], [place] tel:[phone] [place] Encounter for rehabilitation evaluation 5 Javier Romano. [address], [place], [place], [id number], [place]. tel:[phone] [facility], [facility], [place], [place], [id number], [place] tel:[phone] [place] No Information 5 Pitsiladis Liss. [address], [place], [place], [id number], [place]. tel:[phone] [facility], [facility], [place], [place], [id number], [place] tel:[phone] [place] Encounter for nutritional assessmentAt risk for inadequate oral intakeAbnormal weight loss 5 Anna Owens. [address] [place], [place], [id number], [place]. tel:[phone] [facility], [address] [facility], [place], [place], [id number], [place] tel:[phone] [place] Semi-Annual (chief complaint)S thai-Annual (chief complaint) Recurrent major depressive disorder, in partial remissionGAD (generalized anxiety disorder)Mixed hyperlipidemiaStage 3a chronic kidney diseasePrediabetesHypot hyroidism, unspecified typeOsteoporosis without current pathological fracture, unspecified osteoporosis typeHyperparathyroidism Mild dementia with other behavioral disturbance, unspecified dementia type 5 Pitsiladis Liss. [address], [place], [place], [id number], [place]. tel:[phone] [facility], [address] [facility], [place], [place], [id number], [place] tel:[phone] [place] Post Hospital Evaluation (chief complaint) Moderate episode of recurrent major depressive disorderAkathisiaInsomn ia, unspecified type Armando-3 0- 5 Pits[address]adis Liss. [address] [place] [place], [place], [id number], [place]. tel:[phone] [facility], [address] [facility], [place], [place], [id number], [place] tel:[phone] [place] Acute Visit (chief complaint) Recurrent major depressive disorder, in partial remissionGAD (generalized anxiety disorder) 5 Pits[address]adis Liss. [address] [place] [place], [place], [id number], [place]. tel:[phone] [facility], [facility], [place], [place], [id number], [place] tel:[phone] [place] No Information Mar-1 2- 5 Pitsiladis Liss. [address] [place], [place], [id number], [place]. tel:[phone] [facility], [address] [facility], [place], [place], [id number], [place] tel:[phone] [place] No Information Aug-1 - 5 Pitsiladis Liss. [address] [place], [place], [id number], [place]. tel:[phone] [facility], [address] [facility], [place], [place], [id number], [place] tel:[phone] [place] Encounter for nutritional assessment Mar-0 3- 5 Normile Keena. [address] [place], [place], [id number], [place]. tel:[phone] [facility], [address] [facility], [place], [place], [id number], [place] tel:[phone] [place] Semi-Annual (chief complaint) Pulmonary noduleMixed hyperlipidemiaPrediabet esHypothyroidism, unspecified typeStage 3a chronic kidney diseaseMild dementia with other behavioral disturbance, unspecified dementia typeOsteoporosis, unspecified osteoporosis type, unspecified pathological fracture presenceOther specified personal risk factors, not elsewhere classifiedRecurrent major depressive disorder, in partial remissionGAD (generalized anxiety disorder)Hyperparathyro idismVitamin D deficiency 5 Pitsiladis Liss. [address], [place], [place], [id number], [place]. tel:[phone] [facility], [address] [facility], [place], [place], [id number], [place] tel:[phone] [place] Post Hospital Evaluation (chief complaint) History of UTIMixed hyperlipidemiaHypothyro idism, unspecified typeOsteoporosis without current pathological fracture, unspecified osteoporosis typeHyperparathyroidism Viral gastroenteritisStage 3a chronic kidney diseaseMild dementia with other behavioral disturbance, unspecified dementia typeRecurrent major depressive disorder, in full remissionGAD (generalized anxiety disorder) 5 Pitsiladis Liss. [address], [place], [place], [id number], [place]. tel:[phone] [facility], [address] [facility], [place], [place], [id number], [place] tel:[phone] [place] Recurrent major depressive disorder, in partial remissionGAD (generalized anxiety disorder) 4 Pitsiladis Liss. [address], [place], [place], [id number], [place]. tel:[phone] [facility], [address] [facility], [place], [place], [id number], [place] tel:[phone] [place] Acute Visit (chief complaint) Genitourinary syndrome of menopause 4 Pitsiladis Liss. [address], [place], [place], [id number], [place]. tel:[phone] [facility], [address] [facility] [address] [place] [address], [id number], [place] tel:[phone] [place] Follow-up (chief complaint) Shortness of breathRecurrent major depressive disorder, in partial remissionGAD (generalized anxiety disorder)Insomnia, unspecified type 4 Pitsiladis Liss. [address] [place], [place], [id number], [place]. tel:[phone] [facility], [address] [facility], [place], [place], [id number], [place] tel:[phone] [place] Follow-up (chief complaint) Mixed hyperlipidemiaOsteoporo sis without current pathological fracture, unspecified osteoporosis typeAdvanced directives, counseling/discussion 4 Pitsiladis Liss. [address], [place], [place], [id number], [place]. tel:[phone] [facility], [address] [facility], [place], [place], [id number], [place] tel:[phone] [place] Other specified personal risk factors, not elsewhere classifiedUnspecified visual disturbance Sep- 4 Pitsiladis Liss. [address] [place], [place], [id number], [place]. tel:[phone] [facility], [address] [facility], [place], [place], [id number], [place] tel:[phone] [place] No Information Sep- 4 Pitsiladis Liss. [address] [place], [place], [id number], [place]. tel:[phone] [facility], [address] [facility], [place], [place], [id number], [place] tel:[phone] [place] Major depressive disorder, recurrent, in partial remission Sep- 4 Pitsiladis Liss. [address] [place], [place], [id number], [place]. tel:[phone] [facility], [address] [facility], [place], [place], [id number], [place] tel:[phone] [place] Encounter for rehabilitation evaluation Sep-0 4 Javier Romano. [address] [place], [place], [id number], [place]. tel:[phone] [facility], [address] [facility], [place], [place], [id number], [place] tel:[phone] [place] Encounter for rehabilitation evaluation Feb-0 4 Gerardo Steve. [address] [place], [address]. tel:[phone] [facility], [address] [facility], [place], [place], [id number], [place] tel:[phone] [place] Encounter for nutritional assessmentClass 1 obesity with serious comorbidity and body mass index (BMI) of 32.0 to 32.9 in adult, unspecified obesity typeBody mass index [BMI] 32.0-32.9, adult Sep-0 4 Normile Keena. [address] [facility] [place], [id number], [place]. tel:[phone] [facility], [address] [facility], [place], [place], [id number], [place] tel:[phone] [place] Post Enrollment Evaluation (chief complaint) History of mammogramStage 3a chronic kidney diseasePrediabetesRecur rent major depressive disorder, in partial remissionHypothyroidism , unspecified typeVitamin D deficiencyHyperparathyr oidismHistory of UTIGAD (generalized anxiety disorder)Mixed hyperlipidemiaObesity, Class I, BMI 30.0-34.9 (see actual BMI)BMI 32.0-32.9,adultLumbar spondylosisMild dementia with other behavioral disturbance, unspecified dementia typeOsteoporosis without current pathological fracture, unspecified osteoporosis type Sep-0 4 [address]is Liss. [address] [place], [place], [id number], [place]. tel:[phone] [facility], [address] [facility], [place], [place], [id number], [place] tel:[phone] [place] No Information Feb- Frantz Brikn. [address], [place], [place], [id number], [place]. tel:[phone] Family History Family Member Type Diagnosis Age [...] Registry Payers Payer name Insurance type Covered libertarian ID Tremaine lbuntbayron(s) [employer] 16 [id number] [employer] 16 [id number] [employer] 16 [id number] [employer] 16 [id number] Social History Type Description Quantity Date Captured Comments Sex Female Smoking Status No Information Chief Complaint And Reason For Visit No Information Plan Of Treatment Date Type Action Status Referral Ordered: Health And Wellness Coordinator (related to Visual changes) ordered Referral Ordered: Referrals: Dentistry. Evaluate and treat ordered Referral Ordered: Referrals: Health And Wellness Coordinator. Evaluate and treat ordered Referral Referred To: Dr. Willett Ordered: Referrals: Psychiatry. Dr. Willett Appointment date/timeframe: 02/16/2024 ordered Future Order: Lab Order Urinalys is, Macroscopic ([id number]), Ordered on: Ordered History Of Present Illness Encounter Date Complaint History Of Prese nt Illness Semi-Annual Semi-Annual Judy is a 74-ye ar-old female who presents today for a semi-annual visit. She is accompanied by her (Rahul) who waits in the waiting area. Judy enrolled in the [facility] program on 02/07/24. Allergies: Benadryl; gets dizzy. No anaphylaxis. She has never been advised to carry an Epi pen. Immunizations: UTD. History of ER visits/Falls/SNF/Hospitalizations:-Admitted to [facility] from 07/04-07/13/24 with severe depression. -Admitted to [facility] 11/08/24-12/01/24 with severe depression episode. Specialists:-Dr. Fausto Willett at [facility], psychiatrist. Judy has been with Dr. Willett for over 20 years and given her complex psychiatric history she will continue to see him. Advanced directives:-HCP on file dated 08/07/2023 indicating her primary HCP is Boris Rodrigues (spouse and secondary is Cristela Rodrigues (son). HCP not invoked.-MOLST: MOLST on file dated 03/14/24 indicating she is a full code, yes to intubation (short-term only), yes to non-invasive ventilation, yes transfer to hospital, yes to dialysis, yes to short-term artificial nutrition, yes to artificial hydration. Confirmed wishes today. Social: Judy lives in the community in [place] with her , just the 2 of them. They have always lived in the area. They have family in [place] and [place]. Rahul has a son and daughter from a previous relationship, and they also have one son together. No alcohol or smoking present or past. Mammogram: Mammogram completed 10/2024 showing a symmetry in the LEFT breast just medial of midline (probably upper inner) approximately 8.7 cm from the nipple, only seen on CC view, for which additional imaging including spot CT tomosynthesis compression CC and full-field ML view as well as possible ultrasound is recommended . She will be having a diagnostic left breast ultrasound and possible biopsy later today. Diet: No specific diet. She reports she is eating okay, though reports decreased appetite. Endorses having 1-2 Boost drinks per day. Colonoscopy: Judy and her are unsure when her last colonoscopy was; they think possibly 1 year ago at [facility]. Bone density: Records (dated 03/03/24 page 47) notes history of m ultiple old compression fractures of the lumbar spine. DEXA completed 10/2024 showing osteoporosis of the femoral neck, osteopenia of the total hip, normal AP spine. Mobility: Walks independently. Denies recent falls. Dental: Judy has upper dentures. They are very old and not fitting well. She has some teeth left on the bottom which are in poor condition. Pending follow up with [facility] (last visit was 12/05, needs follow up for extraction, debridement and enameloplasty). Hearing: No concerns. No hearing aids. Vision: Uses glasses for reading only, working okay. Skin: No concerns. No history of wounds. Toenails thickened, trimmed in the office today. Sleep: Judy reports she has been sleeping better lately. Dr. Willett adjusts her medications as needed. Post Hospital Evaluation Judy loco s a 74 year old female who is seen today for a post-hospital evaluation. She is accompanied today by her . In review of recent events, Judy was admitted to [facility] from 11/08-12/01 with worsening depression [...] Immunizations: UTD. History of ER visits/Falls/SNF/Hospitalizations:-Admitted to [facility] from 07/04-07/13/24 with severe depression. -06/18/24 To [facility] ER with vomiting, treated for viral GI illness. -Before COVID, was on 5th floor x 1.5 years at [place] on their psychiatric unit. Then was for a few months on 1st floor in a unit x few months for psychiatric concerns. Specialists:-Dr. Fausto Willett at [facility], psychiatrist. Judy has been with Dr. [...] Social: Judy lives in the community in [place] with her , just the 2 of them. They have always lived in the area. They have family in [place] and [place]. Rahul has a son and daughter from [...] they think possibly 1 year ago at [facility]. Bone density: Unclear when her last DEXA [...] facet joint arthropathy . DEXA ordered at [facility]; message sent to follow up. [...] pain.-Drink lots of water. -Call us at [phone] if you feel you are getting worse [...] today.History of ER visits/Falls/SNF/Hospitalizations:-05/25/23 -06/14/23: Inpatient at [facility]. No other hospitalizations, ER visits since then. -Before COVID, was on 5th floor x 1.5 years at [place] on their psychiatric unit. Then was for a few months on 1st floor in a unit x few months for psychiatric concerns. Specialists:-Dr. Fausto Willett at [facility]. Seeing him tomorrow. He is a [...] discussed with plan to complete form at [facility] follow up visit in 1 month. Social: Judy lives in the community in [place] with her , just the 2 of them. They have always lived in the area. They have family in [place] and [place]. Herve has a son and daughter from [...] they think possibly 1 year ago at [facility]. Bone density: Unclear when her last DEXA was. Not seen in pre-enrollment records from [place]. Osteoporosis listed in her problem list with [...] is seeing him tomorrow. Instructions Date Instruction Rupesh harris -Per pre-enrollment (01/31/22 page 38) states d [...] per spouse. Last inpatient psychiatric stay was 11/2024 at recommendation of her psychiatrist. Stable since then. -HCP is not currently invoked but will likely need to be at some point.-Continue donepezil 10mg daily, memantine 10mg twice daily, as well as psychiatric medications per psychiatry. Related to Mild dementia with other behavioral disturbance, unspecified dementia type -Per pre-enrollment (01/31/22 page 24), noted in problem list. -She has co-existing CKD on labs. 08/2024 showing PTH 24, Ca 10.1, Vit D 52. DEXA showing osteoporosis of the femoral neck; unclear prior results or treatment history. -Labs ordered. Related to Hyperparathyroidism -Per pre-enrollment (01/31/22 page 24), on problem list and patient reports this history as well. -Fractures when younger and not noted as fragility fractures. Doesn't appear to be currently receiving treatment. She believes she had an IV infusion a long time ago. We have limited records. -She has been on some medications that increase her risk for fragility fractures including Trintellix. This was discontinued earlier 2024 r/t side effect. -DEXA 10/2024 showed osteoporosis of the femoral neck. -Labs ordered. Continue weight-bearing activity as tolerated. Report all falls. Related to Osteoporosis without current pathological fracture, unspecified osteoporosis type -Per pre-enrollment (01/31/22 page 24), history of hypothyroidism on problem list. Unclear etiology. Not on levothyroxine. -08/2024 TSH 1.63. -Repeat labs ordered. Related to Hypothyroidism, unspecified type -Per pre-enrollment (01/31/22 page 3); labs show HbA1c 5.7%. Never been diagnosed with diabetes.-08/2024 HbA1c 5.9%. -Continue routine screening. Lifestyle management. Related to Prediabetes -Per pre-enrollment (01/31/22 page 2) labs as far back as 2021 show CKD, typically stage 3.-08/2024 eGFR 64, creatinine 0.94. Will continue to assess labs periodically to see if this is sustained improvement.-Avoid nephrotoxins when possible, encourage hydration, BP management, continue periodic labs. Related to Stage 3a chronic kidney disease -08/2024 TC 166, HDL 58, LDL 87, TG 110. Statin had been started in March 2024.-She is on some psychiatric medications that increase her risk of HLD including Seroquel, Rexulti. -Continue atorvastatin 20mg once daily in the evening. Related to Mixed hyperlipidemia -Per pre-enrollment (01/31/22 page 24) described as generalized anxiety disorder. She has a complicated psychiatric history and follows closely with her psychiatrist Dr. Willett. Per pre-enrollment, has been treated in the past with ECT, Trintellix, Doxepin, Caplyta. Admitted in early 2023 to [place] with a nxiety, racing thoughts, insomnia . Underwent ECT while there. She was then transferred to medical service for medical concerns after refusing her medications for several days.-She reports more recent treatment with TMS, supposed to be every 6 months, finished around January 2024.-Continue following with Dr. Willett given complex psychiatric history. -Continue current regimen as ordered and managed by Dr. Willett. We will request updated note. Related to POONAM (generalized anxiety disorder) -Per pre-enrollment (01/31/22 page 16) described as MDD, recurrent severe without psychotic features. Per pre-enrollment, has been treated in the past with ECT, Trintellix, Doxepin, Caplyta. -She is intermittently admitted to [place] psychiatric inpatient unit for worsening depression. She was last discharged on 12/01/24. Following discharge, experienced akathisia, I spoke to Dr. Willett and he stopped Trintellix which was recently added.-Continue psychiatric medications as ordered and managed by Dr. Willett. We will request updated notes. Related to Recurrent major depressive disorder, in partial remission -Continued difficult y sleeping of unknown etiology. [...] is possible however the history in the [facility] records suggests possible FARNAZ. Will explore possibility of repeat sleep study. Related to Insomnia, unspecified type -Judy is intermitte ntly admitted to [facility] psychiatric inpatient unit for worsening depression. She [...] Doxepin, Caplyta. -She is intermittently admitted to [place] psychiatric inpatient unit for worsening depression. She [...] Doxepin, Caplyta. Admitted in early 2023 to [place] with a nxiety, racing thoughts, insomnia . [...] Doxepin, Caplyta. Admitted in early 2023 to [place] with a nxiety, racing thoughts, insomnia . [...] Doxepin, Caplyta. Admitted in early 2023 to [place] with a nxiety, racing thoughts, insomnia . [...] Doxepin, Caplyta. Admitted in early 2023 to [place] with a nxiety, racing thoughts, insomnia . [...] Doxepin, Caplyta. Admitted in early 2023 to [place] with a nxiety, racing thoughts, insomnia . [...] Doxepin, Caplyta. Admitted in early 2023 to [place] with a nxiety, racing thoughts, insomnia . [...] 3-6 months. Related to Mixed hyper[facility] spouse report she had [...] Doxepin, Caplyta. Admitted in early 2023 to [place] with a nxiety, racing thoughts, insomnia . [...] Doxepin, Caplyta. Admitted in early 2023 to [place] with a nxiety, racing thoughts, insomnia . [...] she should have another sleep study outpatient. -11/4/24: Discussed this history with patient and family [...] Doxepin, Caplyta. Admitted in early 2023 to [place] with a nxiety, racing thoughts, insomnia . [...] Doxepin, Caplyta. Admitted in early 2023 to [place] with a nxiety, racing thoughts, insomnia . [...] medications, hypothyroidism. -Routine screening labs. Periodic weights. Physical Therapy Teacher to see her for screening and counseling if indicated. Related to BMI 32.0-32.9,adult -Per pre-enrollment (01/31/22 pg 30).-BMI 32.2 today. -Routine screening labs. Periodic weights. Physical Therapy Teacher to see her for screening and [...] Doxepin, Caplyta. Admitted in early 2023 to [place] with a nxiety, racing thoughts, insomnia . [...] Related to POONAM (generalized anxiety disorder) -At [facility] appt, patidorota t and spouse [...] Doxepin, Caplyta. Admitted in early 2023 to [facility] with a nxiety, racing thoughts, insomnia . [...] Status Date Judy is at risk for weight loss due to variable meal intakes, ill-fitting dentures, weight loss trend. Edit will have stable weight through next review. Patient Goal New Judy is at risk for hospitalization related [...]
--- NOTE | 2025-02-14 10:42 | ECG_ITS ---
Test Reason : MAJOR DEPRESSION Blood Pressure : */* mmHG Vent. Rate : 77 BPM Atrial Rate : 77 BPM P-R Int : 142 ms QRS Dur : 74 ms QT Int : 396 ms P-R-T Axes : 48 14 29 degrees QTcB Int : 448 ms Normal sinus rhythm Normal ECG When compared with ECG of 08-Nov-2024 13:22, Criteria for Inferior infarct are no longer Present Nonspecific T wave abnormality has replaced inverted T waves in Inferior leads Referred By: Broderick Willett Electronically Signed By: NIK ALBRIGHT MD
== END ==
LOC: HO.CARD 10:29
PROVIDERS: PCP Nurse Practitioner Family; Visit Provider Psychiatry & Neurology Psychiatry
DX: F33.2 Major depressive disorder, recurrent severe without psychotic features (principal); F41.1 Generalized anxiety disorder; F01.54 Vascular dementia, unspecified severity, with anxiety
CPT/HCPCS: 93005

== ENCOUNTER → 2025-02-14 10:42 | Outpatient (BNV) | payer MEDICARE, SELFPAY | PROVIDERS: PCP Nurse Practitioner Family; Visit Provider Internal Medicine Cardiovascular Disease | DX: F32.9 Major depressive disorder, single episode, unspecified (principal) | CPT/HCPCS: 93010 ==

== ENCOUNTER 2025-02-14 13:25 | Outpatient (AMB) | payer OTHER, SELFPAY ==
--- NOTE | 2025-02-14 13:51 | A.OFFPSYCH_ITS ---
Intake Intake Visit Reasons: Depression Allergies risperidone (From Risperdal) Allergy (Intermediate, Verified 03/06/25 11:22) UNKNOWN Sulfa (Sulfonamide Antibiotics) Allergy (Intermediate, Verified 03/06/25 11:22) rash From BENADRYL Allergy (Intermediate, Uncoded 11/08/24 13:12) DIZZY Medication List - Last Reconciled 02/14/25 by Broderick Willett MD atorvastatin 20 mg PO BEDTIME 30 days benztropine 0.5 mg PO TID 30 days calcium carbonate-vitamin D3 500 mg-5 mcg (200 unit) (Oyster Shell Calcium- Vitamin D3) 1 tab PO BID clonazepam 0.5 mg (1/2 x 1 mg) PO BEDTIME 30 days donepezil 10 mg PO BEDTIME 30 days doxepin 30 mg (3 x 10 mg) PO BEDTIME 30 days folic acid 1 mg PO DAILY 30 days hydroxyzine HCl 25 mg PO BEDTIME PRN 30 days lurasidone 40 mg PO DAILY melatonin 10 mg (2 x 5 mg) PO BEDTIME 90 days memantine 10 mg PO DAILY 30 days mirtazapine 30 mg (2 x 15 mg) PO BEDTIME 30 days multivitamin 1 tab PO DAILY propranolol 10 mg See Protocol PO TID 90 days quetiapine 25 mg PO DAILY PRN suvorexant 15 mg PO BEDTIME 30 days thiamine mononitrate (vit B1) 100 mg PO BID 30 days HPI- Psychiatric Chief Complaint: Depression HPI Narrative: Patient continues to be withdrawn mostly lying on the couch much of the day. Not engaged in daily walk light exposure which has been recommended multiple times. Patient complains of difficulty falling and staying asleep although her states she sleeps through the night. Patient is on Latuda mirtazapine Past Psychiatric History: Patient with long history of recurrent depression with multiple prior psychiatric hospitalizations. 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 no classic bipolar symptoms past depressive psychotic episodes not for a number of years Mental Status Exam Mental Status Exam Narrative: Patient casually dressed some rocking movements consistent with question TD but complicated by akathisia somewhat sad look Patient Appearance: Appropriate Patient Orientation: Person, Place and Situation Level of Consciousness: Awake and Alert Patient Behavior: Appropriate, Talkative, Cooperative and Good Eye Contact Mood Description: Depressed Affect Description: Withdrawn and Constricted Patient Cognition Impaired: Yes Ability to Follow Directions: Good Speech Pattern: Spontaneous Speech Memory Description: Episodic Impaired Hallucinations: None Delusions: Not Present Thought Process: Rumination and Linear Thought Content: positive for [place], positive for Preoccupation, negative for Suicidal Ideation or negative for Homicidal Ideation Depressive Symptoms: Increased Anxiety, Unhappiness, Loss of Energy and Difficulty Concentrating Judgement: Fair Judgement and Insight: Improving akathisia patient denies SI denies hallucinations much less anxious and agitated but remains depressed limited insight into the role of how her behaviors will affect her mood and sleep encourage daytime activation impulse control intact no SI Assessment and Plan Assessment & Plan (1) Major depressive disorder, recurrent severe without psychotic features: Status: Acute Code(s): F33.2 - Major depressive disorder, recurrent severe without psychotic features (2) POONAM (generalized anxiety disorder): Status: Acute Code(s): F41.1 - Generalized anxiety disorder (3) Vascular dementia with anxiety: Status: Acute Code(s): F01.54 - Vascular dementia, unspecified severity, with anxiety Plan Patient with some degree of chronic dysphoria refusal to go along with behavioral activation light exposure sleep hygiene. Would benefit from adult day health but has also refused that. Have tried to taper down on sleep medication patient somewhat chronically demoralized history of severe depression requiring ECT and in the past TMS. Continue Belsomra seems to be somewhat helpful Again encourage sleep hygiene has failed multiple medication trials Counseling and coordination of Care Details-Self Mgmt counseling: Strongly encourage behavioral activation adult day health Details: I spent [] minutes reviewing the record, seeing the patient and documenting in the medical record. Counseling provided to the patient/caregiver as outlined below. Addressed patient/caregiver concerns regarding current medication regime including effective adherence. Addressed patient/caregiver concerns regarding diagnosis and prognosis including accuracy of diagnosis, prognosis over time, impact of diagnosis. Addressed patient/caregiver concerns regarding impact of recent stressors. [facility] Medical History Vascular dementia with anxiety Dementia Nocturnal hypoxia Severe recurrent major depression w/psychotic features, mood-congruent Has daytime drowsiness Preoperative examination Elevated glucose Screening for colon cancer Screening for diabetes mellitus Obesity (BMI 30-39.9) Confused but orients easily Depression, major, severe recurrence Abnormal serum protein electrophoresis Mild recurrent major depression Anxiety and depression Encounter for Medicare annual wellness exam Removal of nell Depression with anxiety Abdominal distention Weight gain Major depression, recurrent, full remission POONAM (generalized anxiety disorder) Hypothyroidism Hyperparathyroidism Multinodular thyroid Vitamin D deficiency Osteoporosis Surgical History Hx of colonoscopy Hx of kyphoplasty Hx of section Family History Father Myocardial infarction CVD (cardiovascular disease) Mother Dementia Alzheimer disease Other Mental health disorder Social History Household Members: Spouse Housing: House Do you presently have visiting nurse or other home services: Yes (Visiting nurse to fill medications) Alcohol intake: never Comment: 1:1 sitter at bedside Patient Tobacco Use Status: Never used Tobacco e-Cigarette/Vaping Use: Never Used Second Hand Smoke Exposure: No Currently Displaying Signs/Symptoms of Drug Intoxication Withdrawal: No Have you been hit, kicked, punched, or otherwise hurt by someone within the past year? If so, by whom?: No Do you feel safe in your current relationship?: Yes Is there a partner from a previous relationship who is making you feel unsafe now?: No Are you made to feel afraid or neglected: No Advance Directives: Yes Advance Directives on File: Yes Advance Directives Date on File: 09/04/23 Do you have thoughts of harming others: None Do you have a plan to hurt others: No Plan Recently lost weight without trying: Unsure Nutrition Risks: No Nutritional Risk Patient : No : No Poor oral hygiene: No service: No Current occupational status: unemployed Sexual orientation: Straight/Heterosexual Cognitive needs: No Hearing needs: No Social History: Patient disabled has 1 son. Chronic anxiety has stable relationship with her mostly has not worked Substance History: none Trauma History: None noted Coding Level of Care Code Est Pt Level 4 (53352) Diagnoses Major depressive disorder, recurrent severe without psychotic features F33.2 POONAM (generalized anxiety disorder) F41.1 Vascular dementia with anxiety F01.54
--- OUTSIDE RECORDS SUMMARY | 2025-03-31 20:00 | XMS_ITS | Clinical Summary ---
Author Organization Unknown Care Team Providers Care [employer] Network Architect Name Role Phone GOLDIE WAFER FABRICATOR, WADE Unavailable Unavailab tamika MARY RN, FABIANO Unavailable Unavailable Payers Payer Name Policy Type Policy Number Effective Date Expira tion Date [facility] [place] [id number] [place] [id number] [place]AND [place]IC[place] - [place] [id number] Problems Condition Name Condition Details Condition Category [...] Onset Date Inactive Date Treating Clinician Comments BENADRYL Propensity to adverse reactions Active 12-03 15:59: 01 SULFA (SULFONAMIDE ANTIBIOTICS) Propensity to adverse reactions Active 12-03 15:58: 48 RISPERIDONE Propensity to adverse reactions Active 12-05 08:23: 34 Medications Ordered Medication Name Filled Medication Name Start Date Stop Date Current Medication? Ordering Clinician Indication Dosage Frequency Signature (SIG) Comments Components donepezil 10 mg tablet 11-19 00:00: 00 Yes [id number] 10 mg BEDTIME 10 mg BEDTIME (route: oral) Med Classific ation: Cognitive Disorder Therapy folic acid 1 mg tablet 11-19 00:00: 00 Yes [id number] 1 mg DAILY 1 mg BECK Y (route: oral) Med Classific ation: Electroly te Balance-N utritiona l Products lorazepam 0.5 mg tablet 11-19 00:00: 00 06-21 23:59 :00 No [id number] 0.5 mg 2 TIMES DAILY 0.5 mg 2 TIMES DAILY (route: oral) Med Classific ation: Central Nervous System Agents melatonin 5 mg capsule 14 00:00: 00 07-17 23:59 :00 No [id number] 5 mg BEDTIME 5 mg BEDTIME (route: oral) Med Classific ation: Central Nervous System Agents memantine 10 mg tablet 14 00:00: 00 09-27 23:59 :00 No [id number] 10 mg 2 TIMES DAILY 10 mg 2 TIMES DAILY (route: oral) Med Classific ation: Cognitive Disorder Therapy propranolol 10 mg tablet 11-19 00:00: 00 Yes [id number] 10 mg 3 TIMES DAILY 10 mg 3 TIMES DAILY (route: oral) Med Classific ation: Cardiovas cular Therapy Agents quetiapine 25 mg tablet 3-29 00:00: 00 11-19 00:00 :00 No [id number] 25 mg BEDTIME 25 mg BEDTIME (route: oral) Med Classific ation: Central Nervous System Agents quetiapine 25 mg tablet 3-29 00:00: 00 11-19 00:00 :00 No [id number] 25 mg BEDTIME 25 mg BEDTIME (route: oral) Med Classific ation: Central Nervous System Agents thiamine HCl (vitamin B1) 100 mg tablet 11-19 00:00: 00 07-17 23:59 :00 No [id number] 100 mg DAILY 100 mg DAILY (route: oral) Med Classific ation: Electroly te Balance-N utritiona l Products trazodone 50 mg tablet 11-19 00:00: 00 11-08 23:59 :00 No [id number] 50 mg BEDTIME 50 mg BEDTIME (route: oral) Med Classific ation: Central Nervous System Agents Trintellix 20 mg tablet 14 00:00: 00 06-21 23:59 :00 No [id number] 20 mg DAILY 20 mg DAILY (route: oral) Med Classific ation: Central Nervous System Agents mirtazapine 15 mg tablet 10-22 00:00: 00 11-19 00:00 :00 No [id number] 1 tablet BEDTIME 1 tablet BEDTIME (route: oral) Med Classific ation: Central Nervous System Agents Rexulti 0.5 mg tablet 10-22 00:00: 00 11-19 00:00 :00 No [id number] 1 tablet DAILY 1 tablet DAILY (route: oral) Med Classific ation: Central Nervous System Agents ibuprofen 200 mg tablet 11-19 00:00: 00 06-21 23:59 :00 No [id number] 1 tablet EVERY 6 HOURS 1 tablet EVERY 6 HOURS (route: oral) Med Classific ation: Analgesic , Anti-infl ammatory or Antipyret ic mirtazapine 30 mg tablet 11-19 00:00: 00 12-03 23:59 :00 No [id number] 1 tablet BEDTIME 1 tablet BEDTIME (route: oral) Med Classific ation: Central Nervous System Agents quetiapine 50 mg tablet 11-19 00:00: 00 06-21 23:59 :00 No [id number] 1 tablet BEDTIME 1 tablet BEDTIME (route: oral) Med Classific ation: Central Nervous System Agents Rexulti 1 mg tablet 11-19 00:00: 00 05-26 23:59 :00 No [id number] 1 tablet EVERY AM 1 tablet EVERY AM (route: oral) Med Classific ation: Central Nervous System Agents Rexulti 1 mg tablet 11-19 00:00: 00 06-21 23:59 :00 No [id number] 0.5 tablet BEDTIME 0.5 tablet BEDTIME (route: oral) Med Classific ation: Central Nervous System Agents atorvastati n 20 mg tablet 06-21 00:00: 00 Yes [id number] 1 tablet BEDTIME 1 tablet BEDTIME (route: oral) Med Classific ation: Cardiovas cular Therapy Agents lorazepam 1 mg tablet 06-21 00:00: 00 07-15 23:59 :00 No [id number] 1 mg BEDTIME 1 mg BEDTIME (route: oral) Med Classific ation: Central Nervous System Agents quetiapine 200 mg tablet -14 00:00: 00 07-17 23:59 :00 No [id number] 200 mg BEDTIME 200 mg BEDTIME (route: oral) Med Classific ation: Central Nervous System Agents Trintellix 20 mg tablet 06-21 00:00: 00 07-17 23:59 :00 No [id number] 1 tablet EVERY AM 1 tablet EVERY AM (route: oral) Med Classific ation: Central Nervous System Agents gabapentin 300 mg capsule 06-21 00:00: 00 11-08 23:59 :00 No [id number] 1 capsule BEDTIME 1 capsule BEDTIME (route: oral) Med Classific ation: Central Nervous System Agents ondansetron HCl 4 mg tablet 06-21 00:00: 00 07-17 23:59 :00 No [id number] 1 tablet EVERY 8 HOURS 1 tablet EVERY 8 HOURS (route: oral) Med Classific ation: Gastroint estinal Therapy Agents lorazepam 0.5 mg tablet 07-17 00:00: 00 11-08 23:59 :00 No [id number] 1 tablet 3 TIMES DAILY 1 tablet 3 TIMES DAILY (route: oral) Med Classific ation: Central Nervous System Agents pramipexole 0.25 mg tablet 07-17 00:00: 00 12-03 23:59 :00 No [id number] 1 tablet 3 TIMES DAILY 1 tablet 3 TIMES DAILY (route: oral) Med Classific ation: Central Nervous System Agents quetiapine 25 mg tablet 07-17 00:00: 00 07-26 23:59 :00 No [id number] 1 tablet BEDTIME 1 tablet BEDTIME (route: oral) Med Classific ation: Central Nervous System Agents thiamine HCl (vitamin B1) 100 mg tablet - 00:00: 00 Yes [id number] 1 tablet 2 TIMES DAILY 1 tablet 2 TIMES DAILY (route: oral) Med Classific ation: Electroly te Balance-N utritiona l Products Vraylar 1.5 mg capsule 2-09 00:00: 00 12-03 23:59 :00 No [id number] 1 capsule DAILY 1 capsule DAILY (route: oral) Med Classific ation: Central Nervous System Agents quetiapine 100 mg tablet 2-18 00:00: 00 08-23 23:59 :00 No [id number] 1 tablet BEDTIME 1 tablet BEDTIME (route: oral) Med Classific ation: Central Nervous System Agents Seroquel XR 150 mg tablet,exte nded release 3-18 00:00: 00 11-08 23:59 :00 No [id number] 1 tablet BEDTIME 1 tablet BEDTIME (route: oral) Med Classific ation: Central Nervous System Agents gabapentin 300 mg capsule -22 00:00: 00 11-08 23:59 :00 No [id number] 1 capsule BEDTIME 1 capsule BEDTIME (route: oral) Med Classific ation: Central Nervous System Agents melatonin 5 mg capsule 09-27 00:00: 00 Yes [id number] 1 capsule BEDTIME 1 capsule BEDTIME (route: oral) Med Classific ation: Central Nervous System Agents memantine 10 mg tablet 09-27 00:00: 00 12-03 23:59 :00 No [id number] 1 tablet EVERY AM 1 tablet EVERY AM (route: oral) Med Classific ation: Cognitive Disorder Therapy lorazepam 0.5 mg tablet - 00:00: 00 12-07 23:59 :00 No [id number] 1 tablet EVERY AM 1 tablet EVERY AM (route: oral) Med Classific ation: Central Nervous System Agents lorazepam 0.5 mg tablet 6- 00:00: 00 12-03 23:59 :00 No [id number] 2 tablet BEDTIME 2 tablet BEDTIME (route: oral) Med Classific ation: Central Nervous System Agents lorazepam 0.5 mg tablet 2024- 6-03 00:00: 00 12-03 23:59 :00 No [id number] 1 tablet EVERY AM 1 tablet EVERY AM (route: oral) Med Classific ation: Central Nervous System Agents lorazepam 0.5 mg tablet 11-08 00:00: 00 12-07 23:59 :00 No [id number] 2 tablet BEDTIME 2 tablet BEDTIME (route: oral) Med Classific ation: Central Nervous System Agents trazodone 50 mg tablet 11-08 00:00: 00 12-03 23:59 :00 No [id number] 2 tablet BEDTIME 2 tablet BEDTIME (route: oral) Med Classific ation: Central Nervous System Agents gabapentin 100 mg capsule 12-03 00:00: 00 12-27 23:59 :00 No [id number] 100 mg 2 TIMES DAILY 100 mg 2 TIMES DAILY (route: oral) Med Classific ation: Central Nervous System Agents gabapentin 300 mg capsule 12-03 00:00: 00 12-27 23:59 :00 No [id number] 300 capsule BEDTIME 300 capsule BEDTIME (route: oral) Med Classific ation: Central Nervous System Agents hydroxyzine HCl 25 mg tablet 12-03 00:00: 00 Yes [id number] 25 mg BEDTIME 25 mg BEDTIME (route: oral) Med Classific ation: Central Nervous System Agents lurasidone 20 mg tablet 12-03 00:00: 00 12-27 23:59 :00 No [id number] 20 mg DAILY 20 mg DAILY (route: oral) Med Classific ation: Central Nervous System Agents memantine 10 mg tablet 12-03 00:00: 00 12-07 23:59 :00 No [id number] 10 mg DAILY 10 mg DAILY (route: oral) Med Classific ation: Cognitive Disorder Therapy mirtazapine 15 mg tablet 12-03 00:00: 00 12-09 23:59 :00 No [id number] 15 mg BEDTIME 15 mg BEDTIME (route: oral) Med Classific ation: Central Nervous System Agents Oyster Shell + D3 250 mg-3.125 mcg (125 unit) tablet 12-03 00:00: 00 Yes [id number] 125 tablet 2 TIMES DAILY 125 tablet 2 TIMES DAILY (route: oral) Med Classific ation: Electroly te Balance-N utritiona l Products Trintellix 5 mg tablet 12-03 00:00: 00 12-27 23:59 :00 No [id number] 5 mg DAILY 5 mg DAILY (route: oral) Med Classific ation: Central Nervous System Agents clonazepam 0.5 mg tablet 12-09 00:00: 00 Yes [id number] 1 tablet BEDTIME 1 tablet BEDTIME (route: oral) Med Classific ation: Central Nervous System Agents mirtazapine 30 mg tablet 12-09 00:00: 00 Yes [id number] 1 tablet BEDTIME 1 tablet BEDTIME (route: oral) Med Classific ation: Central Nervous System Agents doxepin 10 mg capsule 12-27 00:00: 00 Yes [id number] 3 capsule BEDTIME 3 capsule BEDTIME (route: oral) Med Classific ation: Central Nervous System Agents lurasidone 40 mg tablet 12-27 00:00: 00 Yes [id number] 1 tablet DAILY 1 tablet DAILY (route: oral) Med Classific ation: Central Nervous System Agents Belsomra 10 mg tablet 12-27 00:00: 00 Yes [id number] 1 tablet BEDTIME 1 tablet BEDTIME (route: [...] NERVOUS SYSTEM AGENTS LORAZEPAM ORAL 2-08 00:00: 08-15 00:00 :00 No 0.5 mg1 TABLET [...] ANTINEOPL ASTICS VITAMIN D3 ORAL 2-08 00:00: 08-15 00:00 :00 No 1,000 unit2 TABLETS [...] CENTRAL NERVOUS SYSTEM AGENTS NORTRIPTYLI NE ORAL 2017-06- 00:00: 00 06-18 00:00 :00 No 25 [...] NERVOUS SYSTEM AGENTS DONEPEZIL ORAL 2-08 00:00: 08-15 00:00 :00 No 5 mg1 TABLET [...] NU RSE FOR OBSERVATION AND ASSESSMENT OF PATIENT S PAIN LEVEL AND EFFECTIVENESS OF PAIN MANAGEMENT REGIMEN. SKILLED NURSE TO INSTRUCT PATIENT/CAREGIVER REGARDING PHARMACOLOGIC AND NON-PHARMACOLOGIC PAIN CONTROL MEASURES. SKILLED NURSE TO REPORT TO PHYSICIAN IF PAIN IS UNCONTROLLED WITH CURRENT PAIN MANAGEMENT REGIMEN. [code = SKILLED NURSE FOR OBSERVATION AND ASSESSMENT OF PATIENT S PAIN LEVEL AND EFFECTIVENESS OF PAIN MANAGEMENT REGIMEN. SKILLED NURSE TO INSTRUCT PATIENT/CAREGIVER REGARDING PHARMACOLOGIC AND NON-PHARMACOLOGIC PAIN CONTROL MEASURES. SKILLED NURSE TO REPORT TO PHYSICIAN IF PAIN IS UNCONTROLLED WITH CURRENT PAIN MANAGEMENT REGIMEN.] Future Scheduled Test SKILLED NU RSE TO ASSESS PATIENT'S SKIN INTEGRITY AND INSTRUCT PATIENT/CAREGIVER ON MEASURES TO PREVENT PRESSURE ULCERS. [code = SKILLED NURSE TO ASSESS PATIENT'S SKIN INTEGRITY AND INSTRUCT PATIENT/CAREGIVER ON MEASURES TO PREVENT PRESSURE ULCERS.] Future Scheduled Test SKILLED NU RSE TO O/A OF PATIENTS MENTAL/BEHAVIORAL STATUS, ASSESS VITAL SIGNS WEEKLY ALLOW 2 PRNS FOR MEDICATION MANAGEMENT. [code = SKILLED NURSE TO O/A OF PATIENTS MENTAL/BEHAVIORAL STATUS, ASSESS VITAL SIGNS WEEKLY ALLOW 2 PRNS FOR MEDICATION MANAGEMENT.] Future Scheduled Test SKILLED NU RSE WILL MAINTAIN SITUATIONAL AWARENESS FOR SAFETY AND WILL NOTIFY CLINICAL PIPE PROCESSOR AND PHYSICIAN/PROVIDER WITH ANY CHANGE IN CONDITION. [code = SKILLED NURSE WILL MAINTAIN SITUATIONAL AWARENESS FOR SAFETY AND WILL NOTIFY CLINICAL PIPE PROCESSOR AND PHYSICIAN/PROVIDER WITH ANY CHANGE IN CONDITION.] [...] PROBLEMS.] Future Scheduled Test SKILLED NU RSE TO PRE-POUR MEDICATION PER MEDICATION LIST WEEKLY [code = SKILLED NURSE TO PRE-POUR MEDICATION PER MEDICATION LIST WEEKLY] Future Scheduled Test SKILLED NU RSE [...] Scheduled Test SKILLED NU RSE TO ASSESS PATIENT S PSYCHOSOCIAL STATUS TO IDENTIFY POTENTIAL ISSUES THAT MAY COMPLICATE THE PROVISION OF THE PLAN OF CARE INCLUDING THE PATIENT S ABILITY TO ACCESS COMMUNITY RESOURCES AND PSYCHOSOCIAL SUPPORT SERVICES. [code = SKILLED NURSE TO ASSESS PATIENT S PSYCHOSOCIAL STATUS TO IDENTIFY POTENTIAL ISSUES THAT MAY COMPLICATE THE PROVISION OF THE PLAN OF CARE INCLUDING THE PATIENT S ABILITY TO ACCESS COMMUNITY RESOURCES AND PSYCHOSOCIAL SUPPORT SERVICES.] Future Scheduled Test SKILLED NU RSE FOR O/A OF CLIENT'S SOCIAL ISOLATION AND PROVIDE ASSISTANCE TO CLIENT IN DEVELOPMENT OF PLANNED ACTIVITIES [code = SKILLED NURSE FOR O/A OF CLIENT'S SOCIAL ISOLATION AND PROVIDE ASSISTANCE TO CLIENT IN DEVELOPMENT OF PLANNED ACTIVITIES] Future Scheduled Test SKILLED NU RSE FOR O/A OF CLIENT'S CURRENT DEGREE OF HOPELESSNESS AND PROVIDE THERAPEUTIC INTERVENTIONS AND TEACHING DESIGNED TO ENHANCE THE CLIENT'S WELL BEING. [code = SKILLED NURSE FOR O/A OF CLIENT'S CURRENT DEGREE OF HOPELESSNESS AND PROVIDE THERAPEUTIC INTERVENTIONS AND TEACHING DESIGNED TO ENHANCE THE CLIENT'S WELL BEING.] Future Scheduled Test SKILLED NU RSE FOR [...] ALL SECONDARY TO IMPAIRED COGNITIVE STATUS.] Goal 2025-01-31 Patient Goal - S [facility] OUT OF THE HOSPITAL AND BE ABLE TO SLEEP BETTER Goal Patient Goal - S [facility] OUT OF THE HOSPITAL AND BE ABLE TO SLEEP BETTER Goal Provider Goal - A PLAN OF CARE WILL BE ESTABLISHED THAT MEETS PATIENT'S LONG-TERM NEEDS AND INCLUDES PATIENT GOAL FOR HOME HEALTH. Goal Provider Goal - PATIENT/CAREGIVER WILL VERBALIZE/DEMONSTRATE [...] OF CERTIFICATION PERIOD. Goal Provider Goal - PATIENT/CAREGIVER WILL VERBALIZE UNDERSTANDING OF PRESSURE ULCER PREVENTION BY END OF THE EPISODE. Goal Provider Goal - ALTERED MENTAL/BEHAVIORAL STATUS [...] THE CERTIFICATION PERIOD. Goal Provider Goal - PATIENT [...] THROUGHOUT CERTIFICATION PERIOD. Goal Provider Goal - PSYCHOSOCIAL NEEDS WILL BE IDENTIFIED AND PLAN IMPLEMENTED TO MINIMIZE RISK THROUGHOUT CERTIFICATION PERIOD. Goal Provider Goal - PATIENT WILL DEMONSTRATE AN INCREASED INTEREST IN SOCIALIZATION AND ACTIVITIES BY THE END OF THE CERTIFICATION PERIOD. Goal Provider Goal - PATIENT WILL VERBALIZE OWN ASSOCIATION OF FEELINGS OF HOPELESSNESS, AND 3 THERAPEUTIC TECHNIQUES TO DECREASE THESE FEELINGS BY THE END OF THIS CERTIFICATION. Goal Provider Goal - PATIENT/CAREGIVER WILL VERBALIZE /DEMONSTRATE APPROPRIATE ENVIRONMENTAL/SAFETY MODIFICATIONS IN RESPONSE TO BEHAVIOR/COGNITIVE CHANGES ASSOCIATED WITH DEMENTIA DIAGNOSIS THROUGHOUT THE CERTIFICATION PERIOD. Encounters Start Date/Time End Date/Time Encounter Type Admission Type Attending [facility] Care [facility] Care Department Encounter ID Discharge Date Discharge Status Discharge Condition Discharge Reason Percent Goals Met 2025-02-01 00:00:00 2025-04-01 00:00:00 Outpatient RECERTIFIC ATION FABIANO MARY [facility] [id number] 05.19
== END 2025-02-14 13:50 | disposition home or self-care (01) ==
LOC: HO.HOP 13:25
PROVIDERS: PCP Nurse Practitioner Family; Visit Provider Psychiatry & Neurology Psychiatry
DX: F33.2 Major depressive disorder, recurrent severe without psychotic features (principal); F41.1 Generalized anxiety disorder; F01.54 Vascular dementia, unspecified severity, with anxiety
CPT/HCPCS: 99214

== ENCOUNTER 2025-03-06 11:06 | Inpatient (IN) | payer MEDICARE, SELFPAY ==
--- OUTSIDE RECORDS SUMMARY | 2025-02-20 04:17 | XMS_ITS | Continuity of Care Document ---
Author Organization [place] [employer] [facility] Address [address] [address] Phone Care Team Providers Care Exploration Geologist Name Role Phone Ananda APPELLATE LAW CLERK, Liss Unavailable Unavailab le Allergies, Adverse Reactions, [...] For Visit Diagnoses Date Provider [facility], [address] [address], [place], [place], [id number], tel:[phone] [place] No Information 5 Pitsiladis Liss. [address] [place], [place], [id number], [place]. tel:[phone] [facility], [address] [address], [place], [place], [id number], [place] tel:[phone] [place] Encounter for rehabilitation evaluation 5 Javier Romano. [address] [facility] [place], [id number], [place]. tel:[phone] [facility], [address] [address], [place], [place], [id number], [place] tel:[phone] [place] No Information 5 Pitsiladis Liss. [address], [place], [place], [id number], [place]. tel:[phone] [facility], [address] [address], [place], [place], [id number], [place] tel:[phone] [place] Encounter for nutritional assessmentAt risk for inadequate oral intakeAbnormal weight loss 5 Anna Owens. [address] [place], [id number], [place]. tel:[phone] [facility], 1 [facility], [place], [place], [id number], [place] tel:[phone] [place] Semi-Annual (chief complaint)S thai-Annual (chief complaint) Recurrent major depressive disorder, in partial remissionGAD (generalized anxiety disorder)Mixed hyperlipidemiaStage 3a chronic kidney diseasePrediabetesHypot hyroidism, unspecified typeOsteoporosis without current pathological fracture, unspecified osteoporosis typeHyperparathyroidism Mild dementia with other behavioral disturbance, unspecified dementia type 5 Pitsiladis Liss. [address] [place], [place], [id number], [place]. tel:[phone] [facility], 1 [facility], [place], [place], [id number], [place] tel:[phone] [place] [facility] Evaluation (chief complaint) Moderate episode of recurrent major depressive disorderAkathisiaInsomn ia, unspecified type Armando-3 0- 5 Pitsiladis Liss. [address] [place], [place], [id number], [place]. tel:[phone] [facility], [address] [address], [place], [place], [id number], [place] tel:[phone] [place] Acute Visit (chief complaint) Recurrent major depressive disorder, in partial remissionGAD (generalized anxiety disorder) 5 Pitsiladis Liss. [address] [place], [place], [id number], [place]. tel:[phone] [facility], [address] [address], [place], [place], [id number], [place] tel:[phone] [place] No Information Mar-1 2- 5 Pitsiladis Liss. [address] [place], [place], [id number], [place]. tel:[phone] [facility], [address], [id number], [place] tel:[phone] [place] No Information Mar-1 -202 5 Pitsiladis Liss. [address] [place], [place], [id number], [place]. tel:[phone] [facility], [address], [id number], [place] tel:[phone] [place] Encounter for nutritional assessment Mar-0 3-202 5 Normile Keena. [address] [place], [place], [id number], [place]. tel:[phone] [facility], [address] [address], [place], [place], [id number], [place] tel:[phone] [place] Semi-Annual (chief complaint) Pulmonary noduleMixed hyperlipidemiaPrediabet esHypothyroidism, unspecified typeStage 3a chronic kidney diseaseMild dementia with other behavioral disturbance, unspecified dementia typeOsteoporosis, unspecified osteoporosis type, unspecified pathological fracture presenceOther specified personal risk factors, not elsewhere classifiedRecurrent major depressive disorder, in partial remissionGAD (generalized anxiety disorder)Hyperparathyro idismVitamin D deficiency 5 Pitsiladis Liss. [address] [place], [place], [id number], [place]. tel:[phone] [facility], [facility], [place], [place], [id number], [place] tel:[phone] [place] [facility] Evaluation (chief complaint) History of UTIMixed hyperlipidemiaHypothyro idism, unspecified typeOsteoporosis without current pathological fracture, unspecified osteoporosis typeHyperparathyroidism Viral gastroenteritisStage 3a chronic kidney diseaseMild dementia with other behavioral disturbance, unspecified dementia typeRecurrent major depressive disorder, in full remissionGAD (generalized anxiety disorder) 5 Pitsiladis Liss. [address], [place], [place], [id number], [place]. tel:[phone] [facility], [facility], [place], [place], [id number], [place] tel:[phone] [place] Recurrent major depressive disorder, in partial remissionGAD (generalized anxiety disorder) 4 Pitsiladis Liss. [address] [place], [place], [id number], [place]. tel:[phone] [facility], [facility], [place], [place], [id number], [place] tel:[phone] [place] Acute Visit (chief complaint) Genitourinary syndrome of menopause 4 Pitsiladis Liss. [address] [place], [place], [id number], [place]. tel:[phone] [facility], [address] [facility], [place], [place], [id number], [place] tel:[phone] [place] Follow-up (chief complaint) Shortness of breathRecurrent major depressive disorder, in partial remissionGAD (generalized anxiety disorder)Insomnia, unspecified type 4 Pitsiladis Liss. [address] [place], [place], [id number], [place]. tel:[phone] [facility], [facility], [place], [place], [id number], [place] tel:[phone] [place] Follow-up (chief complaint) Mixed hyperlipidemiaOsteoporo sis without current pathological fracture, unspecified osteoporosis typeAdvanced directives, counseling/discussion 4 Pitsiladis Liss. [address] [place], [place], [id number], [place]. tel:[phone] [facility], 1 [facility], [place], [place], [id number], [place] tel:[phone] [place] Other specified personal risk factors, not elsewhere classifiedUnspecified visual disturbance Sep- 4 Pitsiladis Liss. [address] [place], [place], [id number], [place]. tel:[phone] [facility], 1 [facility], [place], [place], [id number], [place] tel:[phone] [place] No Information Feb- 4 Pitsiladis Liss. [address] [place], [place], [id number], [place]. tel:[phone] [facility], 1 [facility], [place], [place], [id number], [place] tel:[phone] [place] Major depressive disorder, recurrent, in partial remission Sep- 4 Pitsiladis Liss. [address] [place], [place], [id number], [place]. tel:[phone] [facility], 1 [facility], [place], [place], [id number], [place] tel:[phone] [place] Encounter for rehabilitation evaluation Sep-0 4 Javier Romano. [address] [facility] [place], [id number], [place]. tel:[phone] [facility], [facility], [place], [place], [id number], [place] tel:[phone] [place] Encounter for rehabilitation evaluation Sep- 4 Gerardo Steve. [address] [facility] [place], [address]. tel:[phone] [facility], [facility], [place], [place], [id number], [place] tel:[phone] [place] Encounter for nutritional assessmentClass 1 obesity with serious comorbidity and body mass index (BMI) of 32.0 to 32.9 in adult, unspecified obesity typeBody mass index [BMI] 32.0-32.9, adult Sep-0 4 Normile Keena. [address] [place], [place], [id number], [place]. tel:[phone] [facility], [facility], [place], [place], [id number], [place] tel:[phone] [place] Post Enrollment Evaluation (chief complaint) History of mammogramStage 3a chronic kidney diseasePrediabetesRecur rent major depressive disorder, in partial remissionHypothyroidism , unspecified typeVitamin D deficiencyHyperparathyr oidismHistory of UTIGAD (generalized anxiety disorder)Mixed hyperlipidemiaObesity, Class I, BMI 30.0-34.9 (see actual BMI)BMI 32.0-32.9,adultLumbar spondylosisMild dementia with other behavioral disturbance, unspecified dementia typeOsteoporosis without current pathological fracture, unspecified osteoporosis type Sep-0 4 Pitsiladis Liss. [address] [place], [place], [id number], [place]. tel:[phone] [facility], 1 [facility], [place], [place], [id number], [place] tel:[phone] [place] No Information Feb- 4 Frantz Brink. [address], [place], [place], [id number], . tel:[phone] Family History Family Member Type Diagnosis Age [...] Covered constitution party ID Authorcandicea jose raulbayron(s) [employer] [id number] [employer] [id number] [employer] [id number] [employer] [id number] Social History Type Description Quantity Date Captured Comments Sex Female Smoking Status No Information Chief Complaint And Reason For Visit No Information Plan Of Treatment Date Type Action Status Referral Ordered: Therapeutic Dietitian (related to Visual changes) ordered Referral Ordered: Referrals: Dentistry. Evaluate and treat ordered Referral Ordered: Referrals: Therapeutic Dietitian. Evaluate and treat ordered Referral Referred To: Dr. Willett Ordered: Referrals: Psychiatry. Dr. Willett Appointment date/timeframe: 02/16/2024 ordered Future Order: Lab Order Urinalys is, Macroscopic ([id number]), Ordered on: Ordered History Of Present Illness [...] Immunizations: UTD. History of ER visits/Falls/SNF/Hospitalizations:-Admitted to [facility] from 07/04-07/13/24 with severe depression. -Admitted to [facility] 11/08/24-12/01/24 with severe depression episode. Specialists:-Dr. Fausto Willett at [facility], psychiatrist. Judy has been with Dr. Willett for over 20 years and given her complex psychiatric history she will continue to see him. Advanced directives:-HCP on file dated 08/07/2023 indicating her primary HCP is Boris Rodrigues (spouse and secondary is Irmaberonica Rodrigues (son). HCP not invoked.-MOLST: MOLST on file dated 03/14/24 indicating she is a full code, yes to intubation (short-term only), yes to non-invasive ventilation, yes transfer to hospital, yes to dialysis, yes to short-term artificial nutrition, yes to artificial hydration. Confirmed wishes today. Social: Judy lives in the community in [place] with her , just the 2 of them. They have always lived in the area. They have family in [place] and [place]. Rahul has a son and daughter from [...] think possibly 1 year ago at [facility]. Bone density: Records (dated 03/03/24 page 47) [...] of recent events, Judy was admitted to [facility] psych from 11/08-12/01 with worsening depression symptoms. [...] Immunizations: UTD. History of ER visits/Falls/SNF/Hospitalizations:-Admitted to [facility] Psych from 07/04-07/13/24 with severe depression. -06/18/24 To [facility] ER with vomiting, treated for viral GI illness. -Before COVID, was on 5th floor x 1.5 years at [place] on their psychiatric unit. Then was for a few months on 1st floor in a unit x few months for psychiatric concerns. Specialists:-Dr. Fausto Willett at [facility], psychiatrist. Judy has been with Dr. [...] Social: Judy lives in the community in [place] with her , just the 2 of them. They have always lived in the area. They have family in [place] and [place]. Rahul has a son and daughter from [...] think possibly 1 year ago at [facility]. Bone density: Unclear when her [...] facet joint arthropathy . DEXA ordered at [facility]; message sent to follow up. Mobility: [...] of recent events, Judy was seen at [facility] on 06/18/24 with vomiting and LLQ [...] pain.-Drink lots of water. -Call us at [phone] if you feel you are getting worse [...] today.History of ER visits/Falls/SNF/Hospitalizations:-05/25/23 -06/14/23: Inpatient at [facility]. No other hospitalizations, ER visits since then. -Before COVID, was on 5th floor x 1.5 years at [place] on their psychiatric unit. Then was for a few months on 1st floor in a unit x few months for psychiatric concerns. Specialists:-Dr. Fausto Willett at [facility]. Seeing him tomorrow. He is a [...] discussed with plan to complete form at [facility] follow up visit in 1 month. Social: Judy lives in the community in [place] with her , just the 2 of them. They have always lived in the area. They have family in [place] and [place]. Herve has a son and daughter from [...] think possibly 1 year ago at [facility]. Bone density: Unclear when her last DEXA was. Not seen in pre-enrollment records from [place]. Osteoporosis listed in her problem list with [...] seeing him tomorrow. Instructions Date Instruction Rupesh Montiel steven -Per pre-enrollment (01/31/22 page 38) states d [...] unspecified osteoporosis type -Per pre-enrollment (01/31/22 page 3); labs show HbA1c 5.7%. Never been diagnosed with diabetes.-08/2024 HbA1c 5.9%. -Continue routine screening. Lifestyle management. Related to Prediabetes -Per pre-enrollment (01/31/22 page 24), history of hypothyroidism on problem list. Unclear etiology. Not on levothyroxine. -08/2024 TSH 1.63. -Repeat labs ordered. Related to Hypothyroidism, unspecified type -Per pre-enrollment (01/31/22 page 2) labs as [...] [place], [place]. Admitted in early 2023 to [place] with a nxiety, racing thoughts, insomnia . [...] [place]ox[place], [place]. -She is intermittently admitted to [place] psychiatric inpatient unit for worsening depression. She [...] is possible however the history in the [facility] records suggests possible FARNAZ. Will explore possibility of repeat sleep study. Related to Insomnia, unspecified type -Judy is intermitte ntly admitted to [place] psychiatric inpatient unit for worsening depression. She [...] [place]oxep[place], [place]. -She is intermittently admitted to [place] psychiatric inpatient unit for worsening depression. She [...] [place]ox[place], [place]. Admitted in early 2023 to [place] with a nxiety, racing thoughts, insomnia . [...] [place], [place]. Admitted in early 2023 to [place] with a nxiety, racing thoughts, insomnia . [...] [place], [place]. Admitted in early 2023 to [place] with a nxiety, racing thoughts, insomnia . [...] [place], [place]. Admitted in early 2023 to [place] with a nxiety, racing thoughts, insomnia . [...] [place], [place]. Admitted in early 2023 to [place] with a nxiety, racing thoughts, insomnia . [...] [place], [place]. Admitted in early 2023 to [place] with a nxiety, racing thoughts, insomnia . [...] 3-6 months. Related to Mixed hyperlipidemia -At [facility] appt, jinny gonsalves and spouse report she [...] Doxep[place], [place]. Admitted in early 2023 to [place] with a nxiety, racing thoughts, insomnia . [...] [place]ox[place], [place]. Admitted in early 2023 to [place] with a nxiety, racing thoughts, insomnia . [...] [place], [place]. Admitted in early 2023 to [place] with a nxiety, racing thoughts, insomnia . [...] [place]ox[place], [place]. Admitted in early 2023 to [place] with a nxiety, racing thoughts, insomnia . [...] medications, hypothyroidism. -Routine screening labs. Periodic weights. Food Mixer Assembler to see her for screening and counseling if indicated. Related to BMI 32.0-32.9,adult -Per pre-enrollment (01/31/22 pg 30).-BMI 32.2 today. -Routine screening labs. Periodic weights. Food Mixer Assembler to see her for screening and counseling [...] Doxepin, [place]. Admitted in early 2023 to [place] with a nxiety, racing thoughts, insomnia . [...] Related to POONAM (generalized anxiety disorder) -At [facility] appt, jinny t and spouse report [...] She did have parathyroid imaging in 03/2019 ([facility]) with results stating There is homogeneous [...] Doxepin, [place]. Admitted in early 2023 to [place] with a nxiety, racing thoughts, insomnia . [...]
[2025-03-06 11:19] VITALS: BP 146/78; PULSE 89; RESP 16; TEMP 36.1; O2SAT 96; BMI 24.8
--- NOTE | 2025-03-06 11:19 | ED.GENADULT ---
HPI - General Adult General Chief complaint: General Medical Stated complaint: no sleep for a week Time Seen by Provider: 03/06/25 12:26 Source: patient and old records reviewed Mode of arrival: ambulatory Limitations: no limitations History of Present Illness ED Provider: FERNANDO JIN narrative: 74 yo female with PMH Of POONAM, hypothyroidism, cognitive impairment, dementia, psychotic depression, who lives at home with her . She states she has not slept all and has been hearing voices for 1 week. No trauma, no infections. She states she doesn't know what meds she is on but she takes them. She denies SI/HI. She denies visual hallucinations. She denies event preceding this. MD complaint: insomnia Onset (ago): week(s) (1) Relieving factors: none Exacerbating factors: none Associated symptoms: denies other symptoms Treatments prior to arrival: none Related Data Home Medications ?Medication ?Instructions ?Recorded ?Confirmed calcium 500 mg (as 1 tab PO BID 11/08/24 03/06/25 carbonate)-vitamin D3 5 mcg (200 unit) tablet (Oyster Shell Calcium-Vitamin D3) atorvastatin 20 mg tablet 20 mg PO DAILY 03/06/25 03/06/25 benztropine 0.5 mg tablet 0.5 mg PO TID 03/06/25 03/06/25 clonazepam 1 mg tablet 0.5 mg PO BEDTIME 03/06/25 03/06/25 donepezil 10 mg tablet 10 mg PO DAILY 03/06/25 03/06/25 doxepin 10 mg capsule 30 mg PO BEDTIME 03/06/25 03/06/25 folic acid 1 mg tablet 1 mg PO DAILY 03/06/25 03/06/25 hydroxyzine HCl 25 mg tablet 25 mg PO BEDTIME PRN Anxiety 03/06/25 03/06/25 lurasidone 40 mg tablet 40 mg PO DAILY 03/06/25 03/06/25 melatonin 5 mg capsule 10 mg PO BEDTIME 03/06/25 03/06/25 mirtazapine 15 mg tablet 30 mg PO BEDTIME 03/06/25 03/06/25 multivitamin 1 tab PO DAILY 03/06/25 03/06/25 propranolol 10 mg tablet 10 mg PO TID 03/06/25 03/06/25 suvorexant 15 mg tablet (Belsomra) 15 mg PO BEDTIME PRN Insomnia 03/06/25 03/06/25 Previous Rx's ?Medication ?Instructions ?Recorded thiamine mononitrate (vit B1) 100 100 mg PO BID 30 days #60 tabs 01/18/25 mg tablet Allergies Allergy/AdvReac Type Severity Reaction Status Date / Time risperidone (From Risperdal) Allergy Intermediate UNKNOWN Verified 03/06/25 11:22 Sulfa (Sulfonamide Allergy Intermediate rash Verified 03/06/25 11:22 Antibiotics) From BENADRYL Allergy Intermediate DIZZY Uncoded 11/08/24 13:12 Review of Systems Review of Systems: Constitutional : No Fever, No Chills ENT/Mouth : No Ear Pain, No Nasal Congestion, No sore throat Eyes: No Eye Pain, No Swelling, No Redness Cardiovascular : No Chest Pain, No SOB Respiratory : No Cough, No Sputum, No Dyspnea Gastrointestinal : No Nausea, No Vomiting, No Diarrhea, No Hematochezia, No Melena Genitourinary : No Dysuria, No Urinary Frequency, No Hematuria Musculoskeletal : No Myalgias Skin : No Skin Lesions, No rash Neuro : No Weakness, No Numbness, No Paresthesias, No Dizziness, No Headache Psych : positive Anxiety, positive Depression, no SI/HI, pos AH All other systems reviewed and are negative PMFSH Past Medical History Attestation statement: The following information was validated with the patient. Source: old records reviewed Medical History Vascular dementia with anxiety Dementia Nocturnal hypoxia Severe recurrent major depression w/psychotic features, mood-congruent Has daytime drowsiness Preoperative examination Elevated glucose Screening for colon cancer Screening for diabetes mellitus Obesity (BMI 30-39.9) Confused but orients easily Depression, major, severe recurrence Abnormal serum protein electrophoresis Mild recurrent major depression Anxiety and depression Encounter for Medicare annual wellness exam Removal of nell Depression with anxiety Abdominal distention Weight gain Major depression, recurrent, full remission POONAM (generalized anxiety disorder) Hypothyroidism Hyperparathyroidism Multinodular thyroid Vitamin D deficiency Osteoporosis Surgical History Hx of colonoscopy Hx of kyphoplasty Hx of section Family History Family History Father Myocardial infarction CVD (cardiovascular disease) Mother Dementia Alzheimer disease Other Mental health disorder Social History Social History Household Members: Spouse Housing: House Do you presently have visiting nurse or other home services: Yes (Visiting nurse to fill medications) Alcohol intake: never Comment: 1:1 sitter at bedside Patient Tobacco Use Status: Never used Tobacco e-Cigarette/Vaping Use: Never Used Second Hand Smoke Exposure: No Have you been hit, kicked, punched, or otherwise hurt by someone within the past year? If so, by whom?: No Do you feel safe in your current relationship?: Yes Is there a partner from a previous relationship who is making you feel unsafe now?: No Are you made to feel afraid or neglected: No Advance Directives: Yes Advance Directives on File: Yes Advance Directives Date on File: 09/04/23 Do you have thoughts of harming others: None Do you have a plan to hurt others: No Plan Recently lost weight without trying: Unsure Nutrition Risks: No Nutritional Risk Patient : No : No Poor oral hygiene: No service: No Current occupational status: unemployed Sexual orientation: Straight/Heterosexual Cognitive needs: No Hearing needs: No Physical Exam ED Vital Signs: Vital Signs - 24 hr 03/06/25 17:46 Temperature 98.4 F Pulse Rate 86 Respiratory Rate 18 Blood Pressure 131/76 Pulse Oximetry 99 Oxygen Delivery Method Room Air BMI result Body Mass Index 24.8 Appearance: Alert. Oriented X3. No acute distress. Eyes: Pupils equal, round and reactive to light. ENT: Pharynx normal. Neck: Normal inspection. Neck supple. CVS: Normal heart rate and rhythm. Pulses normal. Respiratory: No respiratory distress. Breath sounds normal. Abdomen: Soft and nontender. Skin: Skin warm and dry. Normal skin color. Extremities: No lower extremity edema. Neuro: Oriented X 3. No motor deficit. No sensory deficit. cranial nerve exam not applicable Course Course Course Narrative: Rapid medical examination performed in triage by Homa Pompa PA-C. Patient is a 74 year old assigned female at presenting to the emergency department with difficulty sleeping. Patient states that she has been having trouble sleeping and attempted to call her psychiatrist but didn't have any luck getting ahold of him. Detailed physical exam and review of systems are deferred to the canal lock tender chief operator. EKG, labs ordered. Patient placed back in the waiting room pending room availability and results. Reevaluation(s) Reevaluation #1: Time: 19:00Date: 03/06/25 Provider: Sarah Mendoza DO Physician observation ended at 1900. Patient to be admitted as inpatient to psychiatry. Medications Administered Generic Name Dose Route Start Last Admin Trade Name Juan PRN Reason Stop Dose Admin Atorvastatin Calcium 20 mg 03/07/25 09:00 03/07/25 08:19 Atorvastatin Calcium 20 Mg Tablet PO 20 mg DAILY BARRY Administration Benztropine Mesylate 0.5 mg 03/06/25 21:00 03/07/25 08:19 Benztropine Mesylate 0.5 Mg Tablet PO 0.5 mg TID BARRY Administration Calcium Carbonate/Cholecalciferol 250 mg 03/06/25 21:00 03/07/25 08:19 Calcium + Vitamin D 250 Mg Tablet PO 250 mg BID BARRY Administration Clonazepam 0.5 mg 03/06/25 21:00 03/06/25 21:03 Clonazepam 0.5 Mg Tablet PO 0.5 mg BEDTIME BARRY Administration Donepezil HCl 10 mg 03/07/25 09:00 03/07/25 08:19 Donepezil Hcl 10 Mg Tablet PO 10 mg DAILY BARRY Administration Doxepin HCl 30 mg 03/06/25 21:00 03/06/25 21:20 Doxepin Hcl 10 Mg Capsule PO 30 mg BEDTIME BARRY Administration Folic Acid 1 mg 03/07/25 09:00 03/07/25 08:19 Folic Acid 1 Mg Tablet PO 1 mg DAILY BARRY Administration Lurasidone HCl 40 mg 03/07/25 09:00 03/07/25 08:19 Lurasidone Hcl 40 Mg Tablet PO 40 mg DAILY BARRY Administration Melatonin 9 mg 03/06/25 21:00 03/06/25 21:02 Melatonin 3 Mg Tablet PO 9 mg BEDTIME BARRY Administration Multivitamins/Vitamin C 1 tab 03/07/25 09:00 03/07/25 08:18 Multivitamin Tablet PO 1 tab DAILY BARRY Administration Propranolol HCl 10 mg 03/06/25 21:00 03/07/25 08:18 Propranolol Hcl 10 Mg Tablet PO 10 mg TID BARRY Administration Protocol Thiamine HCl 100 mg 03/06/25 21:00 03/07/25 08:19 Thiamine Hcl 100 Mg Tablet PO 100 mg BID BARRY Administration Trazodone HCl 50 mg 03/06/25 17:59 03/06/25 21:02 Trazodone Hcl 50 Mg Tablet PO 50 mg BEDTIME [id number] PRN Administration Insomnia Discontinued Medications Generic Name Dose Route Start Last Admin Trade Name Juan PRN Reason Stop Dose Admin Mirtazapine 30 mg 03/06/25 21:00 03/06/25 21:02 Mirtazapine 30 Mg Tablet PO 30 mg BEDTIME BARRY Administration Medical Decision Making Medical Decision Making [facility] Narrative: 74 yo female with PMH Of POONAM, hypothyroidism, cognitive impairment, dementia, psychotic depression now here with insomnia, she denies SI/HI. She denies medical issues or complaints. will obtain basic labs and refer to CARE team. Differential Diagnosis Differential Diagnoses: The differential diagnosis associated with the presentation includes dementia, depression, psychosis Admission/Observation Consideration of admission/observation: Escalation of care including admission/observation considered physician observation started at 105pm pending CARE team Consult Healthcare Provider Management of the patient was discussed with: Scale Shooter Lab Data [facility] Lab Attestation statement: I reviewed the patient's lab results. while she has wbc cell in urine there are not nitrates or bacteria she denies urinary symptoms would wait on culture 03/06/25 11:38 03/07/25 07:33 Labs: Lab Results 03/06/25 03/06/25 Range/Units 11:38 11:44 WBC 8.8 (4.8-10.8) X10*3/uL RBC 4.99 (4.20-5.50) X10*6/uL Hgb 15.1 (12.0-16.0) g/dl Hct 45.6 (37.0-47.0) % MCV 91.4 (80.0-98.0) fL MCH 30.3 (27.0-33.0) pg MCHC 33.1 (31.0-35.0) g/dl RDW 14.0 (11.0-16.0) % Plt Count 157 L (160-400) X10*3/uL MPV 11.5 (9.4-12.3) fL Immature Gran % (Auto) 0.3 (0.0-0.4) % Neut % (Auto) 78.1 H (45-73) % Lymph % (Auto) 14.8 L (20-40) % [place] % (Auto) 5.4 (2-11) % Eos % (Auto) 0.8 (0-4) % Baso % (Auto) 0.6 (0-2) % Lymph # (Auto) 1.3 (1.2-4.9) X10*3/uL [place] # (Auto) 0.5 (0.1-1.2) X10*3/uL Eos # (Auto) 0.1 (0.0-0.4) X10*3/uL Baso # (Auto) 0.1 (0.0-0.2) X10*3/uL Abs Immat Gran (auto) 0.03 (0.00-0.03) X10*3/uL Absolute Neuts (auto) 6.9 (2.0-8.3) x10*3/uL Absolute Nucleated RBC 0.000 (0.0-0.012) X10*3/uL Nucleated RBC % (auto) 0.0 (0.0-0.2) /100WBC Sodium 141 (135-145) mmol/L Potassium 4.0 (3.3-5.1) mmol/L Chloride 107 (96-108) mmol/L Carbon Dioxide 25 (22-29) mmol/L Anion Gap 13 (12-20) BUN 24 H (9-16) mg/dL Creatinine 0.97 (0.5-1.4) mg/dL Estim Creat Clear Calc 46.3 Estimated GFR 56 Random Glucose 138 H (60-115) mg/dL Calcium 9.7 (8.4-10.2) mg/dL Total Bilirubin 0.6 (0.0-1.0) mg/dL AST 30 (5-31) U/L ALT 44 H (0-31) U/L Alkaline Phosphatase 90 (39-117) U/L Total Protein 7.4 (6.5-8.0) g/dL Albumin 4.0 (3.5-5.0) g/dL TSH 2.71 (0.32-4.0) uIU/mL Urine Color Dark Yellow Urine Appearance Clear Urine pH 6.0 (5.0-9.0) Ur Specific [place] 1.020 (1.005-1.025) Urine Protein Trace (Neg-Trace) mg/dL Urine Glucose (UA) Negative (Negative) mg/dL Urine Ketones Negative (Negative) mg/dL Urine Blood Negative (Negative) Urine Nitrite Negative (Negative) Ur Leukocyte Esterase Large (3+) H (Negative) Urine RBC 0-2 (0-2) /HPF Urine WBC >50 H (0-5) /HPF Ur Squamous Epith Cells 0-2 (0-2) /HPF Urine Bacteria None Seen (None Seen) Hyaline Casts 0-2 (0-2) /LPF Salicylates < 5.0 L (15-30) mg/dL Urine Opiates Screen Not Detected (Not Detect) Ur Buprenorphine Scrn Not Detected (Not Detect) ng/mL Ur Oxycodone Screen Not Detected (Not Detect) ng/mL Urine Methadone Screen Not Detected (Not Detect) ng/mL Urine Fentanyl Screen Not Detected (Not Detect) Acetaminophen < 3 (<30) mcg/mL Ur Barbiturates Screen Not Detected (Not Detect) Ur Phencyclidine Scrn Not Detected (Not Detect) Ur Amphetamines Screen Not Detected (Not Detect) U Benzodiazepines Scrn Not Detected (Not Detect) Urine Cocaine Screen Not Detected (Not Detect) U Marijuana (THC) Screen Not Detected (Not Detect) Ethyl Alcohol < 10 mg/dL COVID-19 (EMILIANA) Negative (Negative) COVID-19 Clin Com See Note Independent Interpretation I performed an independent interpretation of an: EKG Interpretation: Rate: 77 Rhythm: NSR [place]: left Normal P waves. Normal JOY. Normal QRS complex. ST T wave : inverted t waves V1, no KARRIE qTC: 423 prior studies: no change from prior The study has been interpreted contemporaneously by me. . External Record Review External record reviewed: Inpatient record and Outpatient record Discharge Plan Discharge Clinical Impression: Dementia Qualifiers: Dementia type: unspecified type Dementia severity: mild Dementia behavioral or psychological symptom: unspecified whether behavioral, psychotic, or mood disturbance or anxiety Qualified Code(s): F03.A0 - Unspecified dementia, mild, without behavioral disturbance, psychotic disturbance, mood disturbance, and anxiety Patient Disposition: Admitted As Inpatient Discharge Date/Time: 03/06/25 19:51
--- NOTE | 2025-03-06 11:22 | ECG_ITS ---
Test Reason : MEDICLAL CLEARANCE Blood Pressure : */* mmHG Vent. Rate : 77 BPM Atrial Rate : 77 BPM P-R Int : 160 ms QRS Dur : 70 ms QT Int : 374 ms P-R-T Axes : 34 -5 18 degrees QTcB Int : 423 ms Normal sinus rhythm cannot exclude old Inferior infarct , age undetermined Abnormal ECG When compared with ECG of 14-Feb-2025 10:46, Inferior infarct is now Present Referred By: Homa Pompa Electronically Signed By: ELISE WEI
[2025-03-06 11:54] LABS: MANUAL DIFF FLAG NO
[2025-03-06 11:56] LABS: Hematocrit 45.6 % (37.0-47.0); Hemoglobin 15.1 g/dl (12.0-16.0); Imm Gran Abs Auto 0.03 X10*3/uL (0.00-0.03); Imm Gran Pct Auto 0.3 % (0.0-0.4); Lymphocytes Absolute Auto 1.3 X10*3/uL (1.2-4.9); Mean Corpuscular HGB Conc 33.1 g/dl (31.0-35.0); Mean Corpuscular Hemoglobin 30.3 pg (27.0-33.0); Mean Corpuscular Volume 91.4 fL (80.0-98.0); NRBC Abs Auto 0.000 X10*3/uL (0.0-0.012); NRBC Pct Auto 0.0 /100WBC (0.0-0.2); Platelet Count 157 X10*3/uL (160-400); Red Blood Count 4.99 X10*6/uL (4.20-5.50); White Blood Count 8.8 X10*3/uL (4.8-10.8)
[2025-03-06 11:56] LABS: Appearance Urine Clear; Glucose Urine UA Negative (Negative); PH 6.0 (5.0-9.0); Specific Gravity - Urine 1.020 (1.005-1.025); UMIC TRIGGER UA YES
[2025-03-06 12:06] LABS: Cannabinoid Screen Urine Not Detected (Not Detect)
[2025-03-06 12:11] LABS: Alanine Aminotransferase 44 U/L (0-31); Albumin Level 4.0 g/dL (3.5-5.0); Alkaline Phosphatase 90 U/L (39-117); Anion Gap 13 (12-20); Aspartate Amino Transferase 30 U/L (5-31); Blood Urea Nitrogen 24 mg/dL (9-16); Calcium 9.7 mg/dL (8.4-10.2); Carbon Dioxide 25 mmol/L (22-29); Chloride 107 mmol/L (96-108); Creatinine Clr Calc Pharmacy 46.3; Estimated Glomerular Filt Rate 56; Potassium 4.0 mmol/L (3.3-5.1); Sodium 141 mmol/L (135-145); Total Protein 7.4 g/dL (6.5-8.0)
[2025-03-06 12:12] LABS: COVID-19 Test Negative (Negative); IDNOW Serial# 55D5AD1C
[2025-03-06 12:17] LABS: Acetaminophen LAB < 3 mcg/mL (<30); Salicylate < 5.0 mg/dL (15-30)
[2025-03-06 17:46] VITALS: BP 131/76; PULSE 86; RESP 18; TEMP 36.9; O2SAT 99
--- NOTE | 2025-03-06 18:17 | PC.NURSE ---
Called to ask about her home medications got voicemail left telephone number and name. Hopefully he knows medications or who the VNA service is that goes to her house. Patient does not know her medications at all.
--- NOTE | 2025-03-06 18:44 | MHC.EDTECH ---
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 [address] Camera room stated they are full and called clinic sup/ Rn Meghan & charge Michelle are aware.
[2025-03-06 19:32] VITALS: BP 115/62; PULSE 80; RESP 18; TEMP 36.9; O2SAT 93
[2025-03-06 19:52] VITALS: BP 121/66; PULSE 88; RESP 17; TEMP 36.6; O2SAT 96
[2025-03-06 19:53] VITALS: BMI 24.6
[2025-03-06] MEDS: Calcium + Vitamin D 250 MG TABLET PO (21:02)
[2025-03-06 21:03] VITALS: BP 119/66; PULSE 78
--- NOTE | 2025-03-06 23:26 | PC.NURSE ---
Admission Note Judy Rodrigues, a 74-year-old woman, self presented to [facility] with chief complaints of increased depression and insomnia for over a week. The patient has a medical and psychiatric history of? Hypothyroidism, Anxiety and Depression.? Judy arrived in our unit in a wheelchair? at 1950 on 03/06/25, signed CV/approved by the provider, with an admitting diagnosis of? Major Depressive Disorder. Judy is full-code. She is alert and oriented, times four. She is calm and pleasant. Thought content logical/clear, thought process clear. Mood depressed. Affect flat. Denied SI/HI/AVH. Med reconciliation was completed based on a pharmacy claim history/provider approved/ she took her meds whole with water. She takes Belsorma 15 mg HS for insomnia which she needs to bring from home. The patient was made aware. Skin assessed no issues observed.? She ambulates independently and she is independent with ADL care. Labs unremarkable. Utox negative. UA shows +3 Leukocyte Esterase. 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 She signed her treatment plan, safety tool, and release paper. Zhou searched. Judy is on for 5-minutes for a safety check.
[2025-03-07 08:00] VITALS: BP 113/67; PULSE 84; RESP 17; TEMP 36.3; O2SAT 96
[2025-03-07 08:18] VITALS: BP 113/67; PULSE 84
[2025-03-07] MEDS: Calcium + Vitamin D 250 MG TABLET PO ×2 (08:19→20:10)
[2025-03-07 08:21] LABS: Alanine Aminotransferase 46 U/L (0-31); Albumin Level 4.1 g/dL (3.5-5.0); Alkaline Phosphatase 97 U/L (39-117); Anion Gap 12 (12-20); Aspartate Amino Transferase 29 U/L (5-31); Blood Urea Nitrogen 21 mg/dL (9-16); Calcium 10.2 mg/dL (8.4-10.2); Carbon Dioxide 27 mmol/L (22-29); Chloride 106 mmol/L (96-108); Cholesterol 148 mg/dL (<200); Creatinine Clr Calc Pharmacy 46.6; Estimated Glomerular Filt Rate 57; HDL Cholesterol 52 mg/dL (>40); Potassium 4.3 mmol/L (3.3-5.1); Sodium 141 mmol/L (135-145); Total Protein 7.4 g/dL (6.5-8.0); Triglycerides 73 mg/dL (<150)
[2025-03-07 08:36] LABS: Free T4 (Free Thyroxine) 1.04 ng/dL (0.71-1.85); Thyroid Stimulating Hormone 3.72 uIU/mL (0.32-4.0)
--- NOTE | 2025-03-07 09:08 | HO.PM.IMCN ---
History of Present Illness Data of Consult Service Date: 03/07/25 Primary Care Provider: Unknown Physician HPI Reason for consult: Medical management 74-year-old female with a past medical history of vascular dementia, POONAM, major depressive disorder recurrent without psychotic features Insomnia, akathisia hypothyroidism, osteoporosis and history of lumbar spondylosis. She presented to the ED with auditory hallucinations and reporting that she has not slept in 1 week. She was admitted here on the geripsych unit for further evaluation and treatment. On exam she is awake and alert, she denies any shortness of breath, chest pain, dizziness or any other concerning symptoms. In the ED she was medically cleared, UA was negative, blood work was unremarkable, EKG demonstrated normal sinus rhythm, no changes from previous EKGs. Negative COVID, no EtOH. Review of her vitals indicates that her blood pressure is well controlled. Her cholesterol is within normal limits, her TSH is within normal limits. Her A1c is noted to be 5.8 she is prediabetic range, recommend monitoring every 6 months, no other abnormalities noted. On exam she is ambulatory. She has no complaints other than not eating well and not sleeping well. She reports that her does not understand her. Denies any shortness of breath, dizziness, lightheadedness or any other concerning symptoms. No abdominal pain. Denies any constipation or dysuria. Review of Systems Review of Systems: Denies any shortness of breath, chest pain, dizziness, lightheadedness, abdominal pain or discomfort, nausea vomiting or diarrhea PMFSH Medical History Vascular dementia with anxiety Dementia Nocturnal hypoxia Severe recurrent major depression w/psychotic features, mood-congruent Has daytime drowsiness Preoperative examination Elevated glucose Screening for colon cancer Screening for diabetes mellitus Obesity (BMI 30-39.9) Confused but orients easily Depression, major, severe recurrence Abnormal serum protein electrophoresis Mild recurrent major depression Anxiety and depression Encounter for Medicare annual wellness exam Removal of nell Depression with anxiety Abdominal distention Weight gain Major depression, recurrent, full remission POONAM (generalized anxiety disorder) Hypothyroidism Hyperparathyroidism Multinodular thyroid Vitamin D deficiency Osteoporosis Family History Father Myocardial infarction CVD (cardiovascular disease) Mother Dementia Alzheimer disease Other Mental health disorder Surgical History Hx of colonoscopy Hx of kyphoplasty Hx of section Social History Household Members: Spouse Housing: House Do you presently have visiting nurse or other home services: Yes (Visiting nurse to fill medications) Alcohol intake: never Comment: 1:1 sitter at bedside Patient Tobacco Use Status: Never used Tobacco e-Cigarette/Vaping Use: Never Used Second Hand Smoke Exposure: No Have you been hit, kicked, punched, or otherwise hurt by someone within the past year? If so, by whom?: No Do you feel safe in your current relationship?: Yes Is there a partner from a previous relationship who is making you feel unsafe now?: No Are you made to feel afraid or neglected: No Advance Directives: Yes Advance Directives on File: Yes Advance Directives Date on File: 09/04/23 Do you have thoughts of harming others: None Do you have a plan to hurt others: No Plan Recently lost weight without trying: Unsure Nutrition Risks: No Nutritional Risk Patient : No : No Poor oral hygiene: No service: No Current occupational status: unemployed Sexual orientation: Straight/Heterosexual Cognitive needs: No Hearing needs: No Meds Allergies Allergy/AdvReac Type Severity Reaction Status Date / Time risperidone (From Risperdal) Allergy Intermediate UNKNOWN Verified 03/06/25 11:22 Sulfa (Sulfonamide Allergy Intermediate rash Verified 03/06/25 11:22 Antibiotics) From BENADRYL Allergy Intermediate DIZZY Uncoded 11/08/24 13:12 Active Medications: Current Medications Acetaminophen (Acetaminophen 325 Mg Tablet) 650 mg PO Q6H PRN PRN Reason: Headache/Pain, Scale 1-10 Al Hydroxide/Mg Hydroxide (Magnesium Hydrox/Alum Hydrox 30 Ml Oral.Susp) 30 ml PO Q6H PRN PRN Reason: Heartburn/Nausea Atorvastatin Calcium (Atorvastatin Calcium 20 Mg Tablet) 20 mg PO DAILY [facility] Last Admin: 03/07/25 08:19 Dose: 20 mg Benztropine Mesylate (Benztropine Mesylate 0.5 Mg Tablet) 0.5 mg PO TID [facility] Last Admin: 03/07/25 08:19 Dose: 0.5 mg Calcium Carbonate/Cholecalciferol (Calcium + Vitamin D 250 Mg Tablet) 250 mg PO BID [facility] Last Admin: 03/07/25 08:19 Dose: 250 mg Clonazepam (Clonazepam 0.5 Mg Tablet) 0.5 mg PO BEDTIME [facility] Last Admin: 03/06/25 21:03 Dose: 0.5 mg Donepezil HCl (Donepezil Hcl 10 Mg Tablet) 10 mg PO DAILY [facility] Last Admin: 03/07/25 08:19 Dose: 10 mg Doxepin HCl (Doxepin Hcl 10 Mg Capsule) 30 mg PO BEDTIME [facility] Last Admin: 03/06/25 21:20 Dose: 30 mg Folic Acid (Folic Acid 1 Mg Tablet) 1 mg PO DAILY [facility] Last Admin: 03/07/25 08:19 Dose: 1 mg Hydroxyzine HCl (Hydroxyzine Hcl 25 Mg Tablet) 25 mg PO Q6H PRN PRN Reason: mild anxiety Hydroxyzine HCl (Hydroxyzine Hcl 25 Mg Tablet) 25 mg PO BEDTIME PRN PRN Reason: Anxiety Lurasidone HCl (Lurasidone Hcl 40 Mg Tablet) 40 mg PO DAILY [facility] Last Admin: 03/07/25 08:19 Dose: 40 mg Magnesium Hydroxide (Milk Of Magnesia 30 Ml Oral.Susp) 30 ml PO DAILY PRN PRN Reason: Constipation Melatonin (Melatonin 3 Mg Tablet) 9 mg PO BEDTIME [facility] Last Admin: 03/06/25 21:02 Dose: 9 mg Mirtazapine (Mirtazapine 30 Mg Tablet) 30 mg PO BEDTIME [facility] Last Admin: 03/06/25 21:02 Dose: 30 mg Multivitamins/Vitamin C (Multivitamin Tablet) 1 tab PO DAILY [facility] Last Admin: 03/07/25 08:18 Dose: 1 tab Nicotine (Nicotine 21 Mg Patch.Td24) 21 mg TRANSDERMA DAILY PRN PRN Reason: nicotine craving Nicotine Polacrilex (Nicotine Polacrilex 2 Mg Gum) 2 mg BUCCAL Q2H PRN PRN Reason: Nicotine Cravings Non-Formulary Medication (Suvorexant [Belsomra]) 15 mg PO BEDTIME PRN PRN Reason: Insomnia Olanzapine (Olanzapine 5 Mg Tablet) 5 mg PO BID PRN PRN Reason: agitation Propranolol HCl (Propranolol Hcl 10 Mg Tablet) 10 mg PO TID [facility]; Protocol Last Admin: 03/07/25 08:18 Dose: 10 mg Thiamine HCl (Thiamine Hcl 100 Mg Tablet) 100 mg PO BID [facility] Last Admin: 03/07/25 08:19 Dose: 100 mg Trazodone HCl (Trazodone Hcl 50 Mg Tablet) 50 mg PO BEDTIME MRX1 PRN PRN Reason: Insomnia Last Admin: 03/06/25 21:02 Dose: 50 mg Home Medications ?Medication ?Instructions ?Recorded ?Confirmed ?Last Taken ?Type calcium 500 mg (as 1 tab PO BID 11/08/24 03/06/25 Unknown History carbonate)-vitamin D3 5 mcg (200 unit) tablet (Oyster Shell Calcium-Vitamin D3) atorvastatin 20 mg tablet 20 mg PO DAILY 03/06/25 03/06/25 Unknown History benztropine 0.5 mg tablet 0.5 mg PO TID 03/06/25 03/06/25 Unknown History clonazepam 1 mg tablet 0.5 mg PO BEDTIME 03/06/25 03/06/25 Unknown History donepezil 10 mg tablet 10 mg PO DAILY 03/06/25 03/06/25 Unknown History doxepin 10 mg capsule 30 mg PO BEDTIME 03/06/25 03/06/25 Unknown History folic acid 1 mg tablet 1 mg PO DAILY 03/06/25 03/06/25 Unknown History hydroxyzine HCl 25 mg tablet 25 mg PO BEDTIME PRN Anxiety 03/06/25 03/06/25 Unknown History lurasidone 40 mg tablet 40 mg PO DAILY 03/06/25 03/06/25 Unknown History melatonin 5 mg capsule 10 mg PO BEDTIME 03/06/25 03/06/25 Unknown History mirtazapine 15 mg tablet 30 mg PO BEDTIME 03/06/25 03/06/25 Unknown History multivitamin 1 tab PO DAILY 03/06/25 03/06/25 Unknown History propranolol 10 mg tablet 10 mg PO TID 03/06/25 03/06/25 Unknown History suvorexant 15 mg tablet (Belsomra) 15 mg PO BEDTIME PRN Insomnia 03/06/25 03/06/25 Unknown History Physical Exam Vital Signs and Narrative: Vital Signs: Last Vital Signs Temp 98 F 03/06/25 19:52 Pulse 84 03/07/25 08:18 Resp 17 03/06/25 19:52 BP 113/67 03/07/25 08:18 Pulse Ox 96 03/06/25 19:52 O2 Del Method Room Air 03/06/25 19:52 BMI result Body Mass Index 24.6 CONST: Alert in NAD. Well nourished, quiet and cooperative HEENT: Normocephalic, atraumatic, MMM, Eyes clear, Neck supple RESP: Lungs clear, RRR even and regular HEART:,RRR, S1, S2. No edema GI:Abdomen Soft NT, ND. + BS times four :Deferred SKIN: Warm dry and intact, no visible lesions or rashes NEURO:CN II-XII Intact bilaterally, Sensation intact. Speech clear. Gait steady Results Labs 03/06/25 11:38 03/07/25 07:33 Labs: Laboratory Results - last 24 hr 03/06/25 03/06/25 03/07/25 11:38 11:44 07:33 MCV 91.4 MCH 30.3 MCHC 33.1 RDW 14.0 Plt Count 157 L MPV 11.5 Immature Gran % (Auto) 0.3 Neut % (Auto) 78.1 H Lymph % (Auto) 14.8 L Hanson % (Auto) 5.4 Eos % (Auto) 0.8 Baso % (Auto) 0.6 Lymph # (Auto) 1.3 Hans[place] # (Auto) 0.5 Eos # (Auto) 0.1 Baso # (Auto) 0.1 Abs Immat Gran (auto) 0.03 Absolute Neuts (auto) 6.9 Absolute Nucleated RBC 0.000 Nucleated RBC % (auto) 0.0 Anion Gap 13 12 Estim Creat Clear Calc 46.3 46.6 Estimated GFR 56 57 Random Glucose 138 H 102 Calcium 9.7 10.2 Total Bilirubin 0.6 0.6 AST 30 29 ALT 44 H 46 H Alkaline Phosphatase 90 97 Total Protein 7.4 7.4 Albumin 4.0 4.1 Triglycerides 73 Cholesterol 148 LDL Cholesterol, Calc 82 HDL Cholesterol 52 TSH 2.71 3.72 Free T4 1.04 Urine Color Dark Yellow Urine Appearance Clear Urine pH 6.0 Ur Specific [place] 1.020 Urine Protein Trace Urine Glucose (UA) Negative Urine Ketones Negative Urine Blood Negative Urine Nitrite Negative Ur Leukocyte Esterase Large (3+) H Urine RBC 0-2 Urine WBC >50 H Ur Squamous Epith Cells 0-2 Urine Bacteria None Seen Hyaline Casts 0-2 Salicylates < 5.0 L Urine Opiates Screen Not Detected Ur Buprenorphine Scrn Not Detected Ur Oxycodone Screen Not Detected Urine Methadone Screen Not Detected Urine Fentanyl Screen Not Detected Acetaminophen < 3 Ur Barbiturates Screen Not Detected Ur Phencyclidine Scrn Not Detected Ur Amphetamines Screen Not Detected U Benzodiazepines Scrn Not Detected Urine Cocaine Screen Not Detected U Marijuana (THC) Screen Not Detected Ethyl Alcohol < 10 COVID-19 (EMILIANA) Negative COVID-19 Clin Com See Note Assessment and Plan (1) Vascular dementia with anxiety: Status: Acute (2) Insomnia: Qualifiers: Insomnia type: unspecified Qualified Code(s): G47.00 - Insomnia, unspecified Status: Acute Plan 74-year-old with vascular dementia, POONAM, major depressive disorder recurrent without psychotic features Insomnia, akathisia hypothyroidism, osteoporosis and history of lumbar spondylosis presented to the ED with auditory hallucinations and insomnia, admitted to [facility] for mood stabilization. Major depressive disorder/POONAM/vascular dementia/Insomnia/[place] Continue with treatment per psychiatric team. Patient is on several medications in the evening with associated documented diagnosis of nocturnal hypoxia as well as daytime somnolence. May be contributory. Lumbar spondylosis, osteoarthritis Calcium carbonate b.i.d. Tylenol as needed Hyperlipidemia Continues on Lipitor, lipid panel within normal limits Follow up with PCP History of hypothyroidism Not on medication at this point Recent TSH 3.72. Free T4 1.04 Thank you for allowing me to participate in the care of this patient. We will follow as needed, Please reconsult of any acute complaints or issues arise
[2025-03-07 09:33] LABS: Hemoglobin A1C 167.3631 umol/L; Total Hemoglobin (HGBA1C) 3968.4660 umol/L
--- NOTE | 2025-03-07 11:23 | HO.PSYADMNOT ---
HPI Date of Service: 03/07/25 Chief Complaint: Decom, not sleeping. Sources of Information: patient interviewed, chart reviewed and crisis/core team assessment reviewed HPI Subjective Notes: Qureshi Warning and Conditional Voluntary Narrative: Ms. Rodrigues is a 74 year-old woman with hx of depression, cognitive impairments who self presented to [facility] reporting increase difficulty sleeping which in turn she reports affect her mood, anxiety levels along with feeling very tired and without much energy. Pertinent labs completed in the ED include CBC grossly intact. CMP without electrolyte abnormalities, BUN 21, Cr 0.96, creatinine clearance 46.6. Utox is negative. UA without signs of UTI. On the unit, pt reports she has not been able to sleep for about a week. She describes her mood as terrible. She endorses depressed mood, low energy, anxious mood. She also reports decreased appetite. She denies SI/HI. No psychosis or delusions. She is not sure what medications she is on. She reports gives them to her and she takes them. Last night, per nursing, she slept trhough the night. However, pt reports she was not able to sleep. She does present as tired. Past Psychiatric History: Patient with long history of recurrent depression with multiple prior psychiatric hospitalizations. 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 no classic bipolar symptoms past depressive psychotic episodes not for a number of years Past medication trials: remeron, doxapine, vraylar, seroquel, latuda, belsomra, propanolol, clonazepam Medical Evaluation Reviewed: Yes PMFSH Medical History Vascular dementia with anxiety Dementia Nocturnal hypoxia Severe recurrent major depression w/psychotic features, mood-congruent Has daytime drowsiness Preoperative examination Elevated glucose Screening for colon cancer Screening for diabetes mellitus Obesity (BMI 30-39.9) Confused but orients easily Depression, major, severe recurrence Abnormal serum protein electrophoresis Mild recurrent major depression Anxiety and depression Encounter for Medicare annual wellness exam Removal of nell Depression with anxiety Abdominal distention Weight gain Major depression, recurrent, full remission POONAM (generalized anxiety disorder) Hypothyroidism Hyperparathyroidism Multinodular thyroid Vitamin D deficiency Osteoporosis Surgical History Hx of colonoscopy Hx of kyphoplasty Hx of section Family History: Depression Social History: Patient disabled has 1 son. Chronic anxiety has stable relationship with her mostly has not worked Trauma History: None noted Diagnostics Vital Signs (24Hr): Vital Signs - 24 hr 03/06/25 17:46 03/06/25 19:32 03/06/25 19:52 Temperature 98.4 F 98.4 F 98 F Pulse Rate 86 80 88 Respiratory Rate 18 18 17 Blood Pressure 131/76 115/62 121/66 Pulse Oximetry 99 93 96 Oxygen Delivery Method Room Air Room Air Room Air 03/06/25 21:03 03/07/25 08:00 03/07/25 08:18 Temperature 97.3 F Pulse Rate 78 84 84 Respiratory Rate 17 Blood Pressure 119/66 113/67 113/67 Pulse Oximetry 96 Oxygen Delivery Method Room Air BMI result Body Mass Index 24.6 Labs 03/06/25 11:38 03/07/25 07:33 Labs: Laboratory Results - last 48 hr 03/06/25 03/06/25 03/07/25 11:38 11:44 07:33 WBC 8.8 RBC 4.99 Hgb 15.1 Hct 45.6 MCV 91.4 MCH 30.3 MCHC 33.1 RDW 14.0 Plt Count 157 L MPV 11.5 Immature Gran % (Auto) 0.3 Neut % (Auto) 78.1 H Lymph % (Auto) 14.8 L E[place] % (Auto) 5.4 Eos % (Auto) 0.8 Baso % (Auto) 0.6 Lymph # (Auto) 1.3 Emanuel # (Auto) 0.5 Eos # (Auto) 0.1 Baso # (Auto) 0.1 Abs Immat Gran (auto) 0.03 Absolute Neuts (auto) 6.9 Absolute Nucleated RBC 0.000 Nucleated RBC % (auto) 0.0 Sodium 141 141 Potassium 4.0 4.3 Chloride 107 106 Carbon Dioxide 25 27 Anion Gap 13 12 BUN 24 H 21 H Creatinine 0.97 0.96 Estim Creat Clear Calc 46.3 46.6 Estimated GFR 56 57 Random Glucose 138 H 102 Estimat Average Glucose 126 Hemoglobin A1c % 6.0 Calcium 9.7 10.2 Total Bilirubin 0.6 0.6 AST 30 29 ALT 44 H 46 H Alkaline Phosphatase 90 97 Total Protein 7.4 7.4 Albumin 4.0 4.1 Triglycerides 73 Cholesterol 148 LDL Cholesterol, Calc 82 HDL Cholesterol 52 TSH 2.71 3.72 Free T4 1.04 Urine Color Dark Yellow Urine Appearance Clear Urine pH 6.0 Ur Specific [place] 1.020 Urine Protein Trace Urine Glucose (UA) Negative Urine Ketones Negative Urine Blood Negative Urine Nitrite Negative Ur Leukocyte Esterase Large (3+) H Urine RBC 0-2 Urine WBC >50 H Ur Squamous Epith Cells 0-2 Urine Bacteria None Seen Hyaline Casts 0-2 Salicylates < 5.0 L Urine Opiates Screen Not Detected Ur Buprenorphine Scrn Not Detected Ur Oxycodone Screen Not Detected Urine Methadone Screen Not Detected Urine Fentanyl Screen Not Detected Acetaminophen < 3 Ur Barbiturates Screen Not Detected Ur Phencyclidine Scrn Not Detected Ur Amphetamines Screen Not Detected U Benzodiazepines Scrn Not Detected Urine Cocaine Screen Not Detected U Marijuana (THC) Screen Not Detected Ethyl Alcohol < 10 COVID-19 ([facility]IL[facility]NA) Negative COVID-19 Clin Com See Note Meds/Allergies Meds Home Medications ?Medication ?Instructions ?Recorded ?Confirmed ?Type calcium 500 mg (as 1 tab PO BID 11/08/24 03/06/25 History carbonate)-vitamin D3 5 mcg (200 unit) tablet (Oyster Shell Calcium-Vitamin D3) atorvastatin 20 mg tablet 20 mg PO DAILY 03/06/25 03/06/25 History benztropine 0.5 mg tablet 0.5 mg PO TID 03/06/25 03/06/25 History clonazepam 1 mg tablet 0.5 mg PO BEDTIME 03/06/25 03/06/25 History donepezil 10 mg tablet 10 mg PO DAILY 03/06/25 03/06/25 History doxepin 10 mg capsule 30 mg PO BEDTIME 03/06/25 03/06/25 History folic acid 1 mg tablet 1 mg PO DAILY 03/06/25 03/06/25 History hydroxyzine HCl 25 mg tablet 25 mg PO BEDTIME PRN Anxiety 03/06/25 03/06/25 History lurasidone 40 mg tablet 40 mg PO DAILY 03/06/25 03/06/25 History melatonin 5 mg capsule 10 mg PO BEDTIME 03/06/25 03/06/25 History mirtazapine 15 mg tablet 30 mg PO BEDTIME 03/06/25 03/06/25 History multivitamin 1 tab PO DAILY 03/06/25 03/06/25 History propranolol 10 mg tablet 10 mg PO TID 03/06/25 03/06/25 History suvorexant 15 mg tablet (Belsomra) 15 mg PO BEDTIME PRN Insomnia 03/06/25 03/06/25 History Allergies Allergies Allergy/AdvReac Type Severity Reaction Status Date / Time risperidone (From Risperdal) Allergy Intermediate UNKNOWN Verified 03/06/25 11:22 Sulfa (Sulfonamide Allergy Intermediate rash Verified 03/06/25 11:22 Antibiotics) From BENADRYL Allergy Intermediate DIZZY Uncoded 11/08/24 13:12 Mental Status Exam Mental Status Exam Narrative: Appearance: wearing hospital gown, fair hygiene, in NAD Behavior: cooperative and friendly Psychomotor: no agitation or retardation, tapping feet intermittently. Speech: clear, normal rate/rhythm/volume, spontaneous TP: linear TC: focused on lack of sleep. Mood: terrible Affect: tired, anxious SI: denies HI: denies VH/AH: none Delusions: none Insight/judgment: fair x 2. Memory/cog: alert, oriented x 3. Assessment & Plan Assessment & Plan (1) POONAM (generalized anxiety disorder): Status: Acute Code(s): F41.1 - Generalized anxiety disorder (2) Major depressive disorder, recurrent severe without psychotic features: Status: Acute Code(s): F33.2 - Major depressive disorder, recurrent severe without psychotic features Plan Mrs. Rodrigues is 74 year-old woman with hx of MDD, cognitive impairments who was brought by due to difficulty sleeping, affecting her mood including depression and anxious mood. She also reports poor appetite. This is her usual presentation focused on lack of sleep, feeling anxious and depressed. No SI/HI. She had home sleep study back in 05/2024 which was suggestive of needing oxygen at night and possible sleep apnea but patient had declined o2 at night. PLAN 1. Admit to S1, CV, 15 minutes checks for safety 2. continue latuda, continue doxapine, stop remeron, add gabapentin for sleep. 3. check iron profile, b12/folate. 4. obtain collateral information 5. aftercare planning. Patient educated on: diagnosis and medication risk/benefits Reason for continued inpatient stay Substantial Risk for: inability to function Statement Statement: I have reviewed the history and physical and performed a pertinent examination on my patient. No changes have occurred unless specified. If the History and Physical was not performed prior to admission, the Hospitalist's service will be consulted for completing the admission physical. Time Spent With Patient Time: Total time managing care of this patient today ____ minutes.
[2025-03-07 14:46] VITALS: BP 135/72; PULSE 77
[2025-03-07 16:25] LABS: Iron 39 mcg/dL (30-160); Percent Iron Saturation 14 % (15-50); Total Iron Binding Capacity 285 mcg/dL (228-428); Unsaturated Iron Binding 246 ug/dL
[2025-03-07 16:53] LABS: Folate > 20.0 ng/mL (> or = 4.0); Vitamin B12 1335 pg/mL (200-900)
[2025-03-07 20:00] VITALS: BP 124/65; PULSE 85; RESP 16; TEMP 36.8; O2SAT 96
[2025-03-07] MEDS: SUVOREXANT 15 MG 15 EACH PO (21:48)
--- NOTE | 2025-03-08 01:59 | PC.RT ---
Started NOC Oximetry @ 0120; pt RA
[2025-03-08 08:00] VITALS: BP 108/68; PULSE 78; RESP 14; TEMP 35.8; O2SAT 97
[2025-03-08] MEDS: Calcium + Vitamin D 250 MG TABLET PO ×2 (08:39→21:00)
[2025-03-08 17:53] LABS: Anti Nuclear Antibody Screen NEGATIVE (NEGATIVE)
[2025-03-08 20:00] VITALS: BP 148/62; PULSE 81; RESP 18; TEMP 36.2; O2SAT 98
--- NOTE | 2025-03-08 23:28 | PC.RT ---
Pt placed on overnight SaO2, floor informed, told to check probe as well
[2025-03-09 08:35] VITALS: BP 116/65; PULSE 71; RESP 16; TEMP 36.2; O2SAT 95
[2025-03-09] MEDS: Calcium + Vitamin D 250 MG TABLET PO ×2 (09:20→21:31)
[2025-03-09 10:12] VITALS: BMI 24.8
--- NOTE | 2025-03-09 10:55 | HO.PSYCHPN ---
Subjective Subjective Date of Service: 03/08/25 Reason For Visit: Decom, not sleeping. Subjective Notes: Conditional Voluntary Interim History: Pt reports she was able to sleep better. She had oxymetry completed, awaiting results. She reports she feels a little bit better today. She continues to denied SI/HI. visible on the unit. Vs stable. Medication Compliance: Yes Review of Systems Review of Systems Denies any shortness of breath, chest pain, dizziness, lightheadedness, abdominal pain or discomfort, nausea vomiting or diarrhea Mental Status Exam Mental Status Exam Narrative: Appearance: wearing hospital gown, fair hygiene, in NAD Behavior: cooperative and friendly Psychomotor: no agitation or retardation, tapping feet intermittently. Speech: clear, normal rate/rhythm/volume, spontaneous TP: linear TC: focused on lack of sleep. Mood: terrible Affect: tired, anxious SI: denies HI: denies VH/AH: none Delusions: none Insight/judgment: fair x 2. Memory/cog: alert, oriented x 3. Diagnostics Vital Signs (24Hr): Vital Signs - 24 hr 03/08/25 20:00 03/09/25 08:35 Temperature 97.2 F 97.2 F Pulse Rate 81 71 Respiratory Rate 18 16 Blood Pressure 148/62 H 116/65 Pulse Oximetry 98 95 Oxygen Delivery Method Room Air Room Air BMI result Body Mass Index 24.8 Labs 03/06/25 11:38 03/07/25 07:33 Labs: Laboratory Results - last 48 hr 03/07/25 15:56 ESR 27 H Iron 39 TIBC 285 % Saturation 14 L Unsat Iron Binding 246 C-Reactive Protein 0.58 H Vitamin B12 1335 H 25-OH Vitamin D Total 57.2 Folate > 20.0 ITZEL Screen NEGATIVE Medications Medications Current Medications Acetaminophen (Acetaminophen 325 Mg Tablet) 650 mg PO Q6H PRN PRN Reason: Headache/Pain, Scale 1-10 Last Admin: 03/08/25 11:35 Dose: 650 mg Al Hydroxide/Mg Hydroxide (Magnesium Hydrox/Alum Hydrox 30 Ml Oral.Susp) 30 ml PO Q6H PRN PRN Reason: Heartburn/Nausea Atorvastatin Calcium (Atorvastatin Calcium 20 Mg Tablet) 20 mg PO DAILY [facility] Last Admin: 03/09/25 09:21 Dose: 20 mg Benztropine Mesylate (Benztropine Mesylate 0.5 Mg Tablet) 0.5 mg PO TID [facility] Last Admin: 03/09/25 09:21 Dose: 0.5 mg Calcium Carbonate/Cholecalciferol (Calcium + Vitamin D 250 Mg Tablet) 250 mg PO BID [facility] Last Admin: 03/09/25 09:20 Dose: 250 mg Clonazepam (Clonazepam 0.5 Mg Tablet) 0.5 mg PO BEDTIME [facility] Last Admin: 03/08/25 21:00 Dose: 0.5 mg Donepezil HCl (Donepezil Hcl 10 Mg Tablet) 10 mg PO DAILY [facility] Last Admin: 03/09/25 09:21 Dose: 10 mg Doxepin HCl (Doxepin Hcl 10 Mg Capsule) 30 mg PO BEDTIME [facility] Last Admin: 03/08/25 20:59 Dose: 30 mg Folic Acid (Folic Acid 1 Mg Tablet) 1 mg PO DAILY [facility] Last Admin: 03/09/25 09:21 Dose: 1 mg Gabapentin (Gabapentin 100 Mg Capsule) 100 mg PO BEDTIME [facility] Last Admin: 03/08/25 21:00 Dose: 100 mg Hydroxyzine HCl (Hydroxyzine Hcl 25 Mg Tablet) 25 mg PO Q6H PRN PRN Reason: mild anxiety Last Admin: 03/07/25 17:29 Dose: 25 mg Hydroxyzine HCl (Hydroxyzine Hcl 25 Mg Tablet) 25 mg PO BEDTIME PRN PRN Reason: Anxiety Lurasidone HCl (Lurasidone Hcl 40 Mg Tablet) 40 mg PO DAILY [facility] Last Admin: 03/09/25 09:20 Dose: 40 mg Magnesium Hydroxide (Milk Of Magnesia 30 Ml Oral.Susp) 30 ml PO DAILY PRN PRN Reason: Constipation Melatonin (Melatonin 3 Mg Tablet) 9 mg PO BEDTIME [facility] Last Admin: 03/08/25 21:01 Dose: 9 mg Multivitamins/Vitamin C (Multivitamin Tablet) 1 tab PO DAILY [facility] Last Admin: 03/09/25 09:23 Dose: 1 tab Nicotine (Nicotine 21 Mg Patch.Td24) 21 mg TRANSDERMA DAILY PRN PRN Reason: nicotine craving Nicotine Polacrilex (Nicotine Polacrilex 2 Mg Gum) 2 mg BUCCAL Q2H PRN PRN Reason: Nicotine Cravings Patient Own Medication ( Suvorexant [Belsomra ] 15 Mg Tablet) 15 mg PO BEDTIME PRN PRN Reason: Insomnia Last Admin: 03/07/25 21:48 Dose: 15 mg Olanzapine (Olanzapine 5 Mg Tablet) 5 mg PO BID PRN PRN Reason: agitation Propranolol HCl (Propranolol Hcl 10 Mg Tablet) 10 mg PO TID [facility]; Protocol Last Admin: 03/09/25 09:29 Dose: 10 mg Thiamine HCl (Thiamine Hcl 100 Mg Tablet) 100 mg PO BID [facility] Last Admin: 03/09/25 09:22 Dose: 100 mg Trazodone HCl (Trazodone Hcl 50 Mg Tablet) 50 mg PO BEDTIME MRX1 PRN PRN Reason: Insomnia Last Admin: 03/08/25 21:00 Dose: 50 mg Allergies Allergies Allergy/AdvReac Type Severity Reaction Status Date / Time risperidone (From Risperdal) Allergy Intermediate UNKNOWN Verified 03/06/25 11:22 Sulfa (Sulfonamide Allergy Intermediate rash Verified 03/06/25 11:22 Antibiotics) From BENADRYL Allergy Intermediate DIZZY Uncoded 11/08/24 13:12 Assessment & Plan Assessment & Plan (1) POONAM (generalized anxiety disorder): Status: Acute Code(s): F41.1 - Generalized anxiety disorder (2) Major depressive disorder, recurrent severe without psychotic features: Status: Acute Code(s): F33.2 - Major depressive disorder, recurrent severe without psychotic features Plan Mrs. Rodrigues is 74 year-old woman with hx of MDD, cognitive impairments who was brought by due to difficulty sleeping, affecting her mood including depression and anxious mood. She also reports poor appetite. This is her usual presentation focused on lack of sleep, feeling anxious and depressed. No SI/HI. She had home sleep study back in 05/2024 which was suggestive of needing oxygen at night and possible sleep apnea but patient had declined o2 at night. PLAN 03/08 continue gabapentin 100mg po qhs. add iron with vit c. Reason for continued inpatient stay Substantial Risk for: inability to function Time Spent With Patient Time: Total time managing care of this patient today ____ minutes.
[2025-03-09] MEDS: Ferrous Sulfate 324 MG TABLET.DR PO (11:43)
--- NOTE | 2025-03-09 13:10 | P.PNPSI_ITS ---
Subjective Subjective Date of Service: 03/09/25 Reason For Visit: Decom, not sleeping. Subjective Notes: Conditional Voluntary Interim History: Pt reports she was not able to sleep and that she feels terrible. She asks this copy writer to give her something to sleep. However, per nursing, pt is sleeping through the night. She presents as anxious, repetitive in that she is anxious about possibility of not sleep once again tonight. She also reports overall pain which she reports is new. She was given a one time dose of gabapentin for anxious mood and she reported it seemed to help. Report from oxymetry does not show that she needs oxygen at night. Medication Compliance: Yes Review of Systems Review of Systems Denies any shortness of breath, chest pain, dizziness, lightheadedness, abdominal pain or discomfort, nausea vomiting or diarrhea Mental Status Exam Mental Status Exam Narrative: Appearance: wearing hospital gown, fair hygiene, in NAD Behavior: cooperative and friendly Psychomotor: no agitation or retardation, tapping feet intermittently. Speech: clear, normal rate/rhythm/volume, spontaneous TP: linear TC: focused on lack of sleep. Mood: terrible Affect: tired, anxious SI: denies HI: denies VH/AH: none Delusions: none Insight/judgment: fair x 2. Memory/cog: alert, oriented x 3. Diagnostics Vital Signs (24Hr): Vital Signs - 24 hr 03/08/25 20:00 03/09/25 08:35 Temperature 97.2 F 97.2 F Pulse Rate 81 71 Respiratory Rate 18 16 Blood Pressure 148/62 H 116/65 Pulse Oximetry 98 95 Oxygen Delivery Method Room Air Room Air BMI result Body Mass Index 24.8 Labs 03/06/25 11:38 03/07/25 07:33 Labs: Laboratory Results - last 48 hr 03/07/25 15:56 ESR 27 H Iron 39 TIBC 285 % Saturation 14 L Unsat Iron Binding 246 C-Reactive Protein 0.58 H Vitamin B12 1335 H 25-OH Vitamin D Total 57.2 Folate > 20.0 ITZEL Screen NEGATIVE ITZEL Titer TNP ITZEL Titer 2 TNP ITZEL Titer 3 TNP ITZEL Pattern TNP ITZEL Pattern 2 TNP ITZEL Pattern 3 TNP Medications Medications Current Medications Acetaminophen (Acetaminophen 325 Mg Tablet) 650 mg PO Q6H PRN PRN Reason: Headache/Pain, Scale 1-10 Last Admin: 03/08/25 11:35 Dose: 650 mg Al Hydroxide/Mg Hydroxide (Magnesium Hydrox/Alum Hydrox 30 Ml Oral.Susp) 30 ml PO Q6H PRN PRN Reason: Heartburn/Nausea Ascorbic Acid (Ascorbic Acid 500 Mg Tablet) 500 mg PO DAILY [facility] Last Admin: 03/09/25 11:43 Dose: 500 mg Atorvastatin Calcium (Atorvastatin Calcium 20 Mg Tablet) 20 mg PO DAILY [facility] Last Admin: 03/09/25 09:21 Dose: 20 mg Benztropine Mesylate (Benztropine Mesylate 0.5 Mg Tablet) 0.5 mg PO TID [facility] Last Admin: 03/09/25 09:21 Dose: 0.5 mg Calcium Carbonate/Cholecalciferol (Calcium + Vitamin D 250 Mg Tablet) 250 mg PO BID [facility] Last Admin: 03/09/25 09:20 Dose: 250 mg Clonazepam (Clonazepam 0.5 Mg Tablet) 0.5 mg PO BEDTIME [facility] Last Admin: 03/08/25 21:00 Dose: 0.5 mg Donepezil HCl (Donepezil Hcl 10 Mg Tablet) 10 mg PO BEDTIME [facility] Doxepin HCl (Doxepin Hcl 10 Mg Capsule) 30 mg PO BEDTIME [facility] Last Admin: 03/08/25 20:59 Dose: 30 mg Ferrous Sulfate (Ferrous Sulfate 324 Mg Tablet.Dr) 324 mg PO DAILY [facility] Last Admin: 03/09/25 11:43 Dose: 324 mg Folic Acid (Folic Acid 1 Mg Tablet) 1 mg PO DAILY [facility] Last Admin: 03/09/25 09:21 Dose: 1 mg Gabapentin (Gabapentin 100 Mg Capsule) 200 mg PO BEDTIME [facility] Hydroxyzine HCl (Hydroxyzine Hcl 25 Mg Tablet) 25 mg PO BEDTIME PRN PRN Reason: Anxiety Lurasidone HCl (Lurasidone Hcl 40 Mg Tablet) 40 mg PO DAILY@1700 [facility] Magnesium Hydroxide (Milk Of Magnesia 30 Ml Oral.Susp) 30 ml PO DAILY PRN PRN Reason: Constipation Melatonin (Melatonin 3 Mg Tablet) 9 mg PO BEDTIME [facility] Last Admin: 03/08/25 21:01 Dose: 9 mg Multivitamins/Vitamin C (Multivitamin Tablet) 1 tab PO DAILY [facility] Last Admin: 03/09/25 09:23 Dose: 1 tab Nicotine (Nicotine 21 Mg Patch.Td24) 21 mg TRANSDERMA DAILY PRN PRN Reason: nicotine craving Nicotine Polacrilex (Nicotine Polacrilex 2 Mg Gum) 2 mg BUCCAL Q2H PRN PRN Reason: Nicotine Cravings Patient Own Medication ( Suvorexant [Belsomra ] 15 Mg Tablet) 15 mg PO BEDTIME PRN PRN Reason: Insomnia Last Admin: 03/07/25 21:48 Dose: 15 mg Olanzapine (Olanzapine 5 Mg Tablet) 5 mg PO BID PRN PRN Reason: agitation Propranolol HCl (Propranolol Hcl 10 Mg Tablet) 10 mg PO TID [facility]; Protocol Last Admin: 03/09/25 09:29 Dose: 10 mg Thiamine HCl (Thiamine Hcl 100 Mg Tablet) 100 mg PO BID [facility] Last Admin: 03/09/25 09:22 Dose: 100 mg Trazodone HCl (Trazodone Hcl 50 Mg Tablet) 50 mg PO BEDTIME MRX1 PRN PRN Reason: Insomnia Last Admin: 03/08/25 21:00 Dose: 50 mg Allergies Allergies Allergy/AdvReac Type Severity Reaction Status Date / Time risperidone (From Risperdal) Allergy Intermediate UNKNOWN Verified 03/06/25 11:22 Sulfa (Sulfonamide Allergy Intermediate rash Verified 03/06/25 11:22 Antibiotics) From BENADRYL Allergy Intermediate DIZZY Uncoded 11/08/24 13:12 Assessment & Plan Assessment & Plan (1) POONAM (generalized anxiety disorder): Status: Acute Code(s): F41.1 - Generalized anxiety disorder (2) Major depressive disorder, recurrent severe without psychotic features: Status: Acute Code(s): F33.2 - Major depressive disorder, recurrent severe without psychotic features Plan Mrs. Rodrigues is 74 year-old woman with hx of MDD, cognitive impairments who was brought by due to difficulty sleeping, affecting her mood including depression and anxious mood. She also reports poor appetite. This is her usual presentation focused on lack of sleep, feeling anxious and depressed. No SI/HI. She had home sleep study back in 05/2024 which was suggestive of needing oxygen at night and possible sleep apnea but patient had declined o2 at night. PLAN 03/08 continue gabapentin 100mg po qhs. add iron with vit c. 03/09 increase night time dose of gabapentin to 200mg po qhs. will add morning dose of gabapentin 100mg po daily. continue latuda- but will change to dinner time. Will also change aricept to night time. Reason for continued inpatient stay Substantial Risk for: inability to function Time Spent With Patient Time: Total time managing care of this patient today ____ minutes.
[2025-03-09 15:18] VITALS: BP 117/72; PULSE 80
--- NOTE | 2025-03-09 17:07 | HO.PSYCHPN ---
Subjective Subjective Date of Service: 03/10/25 Reason For Visit: Decom, not sleeping. Subjective Notes: Conditional Voluntary Interim History: Pt slept through the night per nursing. However, pt reports she did not sleep. reminded to let staff know if not sleeping. She presented as anxious, worried that tonight she may not sleep. She denies SI/HI. She reports feeling tired. Asks this global technical writer if I will give her something for sleep. We discussed adding gabapentin in the morning as pt was reporting also feeling overall pain in her body and tiredness. Medication Compliance: Yes Review of Systems Review of Systems Denies any shortness of breath, chest pain, dizziness, lightheadedness, abdominal pain or discomfort, nausea vomiting or diarrhea Mental Status Exam Mental Status Exam Narrative: Appearance: wearing hospital gown, fair hygiene, in NAD Behavior: cooperative and friendly Psychomotor: no agitation or retardation, tapping feet intermittently. Speech: clear, normal rate/rhythm/volume, spontaneous TP: linear TC: focused on lack of sleep. Mood: terrible Affect: tired, anxious SI: denies HI: denies VH/AH: none Delusions: none Insight/judgment: fair x 2. Memory/cog: alert, oriented x 3. Diagnostics Vital Signs (24Hr): Vital Signs - 24 hr 03/08/25 20:00 03/09/25 08:35 03/09/25 15:18 Temperature 97.2 F 97.2 F Pulse Rate 81 71 80 Respiratory Rate 18 16 Blood Pressure 148/62 H 116/65 117/72 Pulse Oximetry 98 95 Oxygen Delivery Method Room Air Room Air BMI result Body Mass Index 24.8 Labs 03/06/25 11:38 03/07/25 07:33 Labs: Laboratory Results - last 48 hr 03/07/25 15:56 ESR 27 H ITZEL Screen NEGATIVE ITZEL Titer TNP ITZEL Titer 2 TNP ITZEL Titer 3 TNP ITZEL Pattern TNP ITZEL Pattern 2 TNP ITZEL Pattern 3 TNP Medications Medications Current Medications Acetaminophen (Acetaminophen 325 Mg Tablet) 650 mg PO Q6H PRN PRN Reason: Headache/Pain, Scale 1-10 Last Admin: 03/08/25 11:35 Dose: 650 mg Al Hydroxide/Mg Hydroxide (Magnesium Hydrox/Alum Hydrox 30 Ml Oral.Susp) 30 ml PO Q6H PRN PRN Reason: Heartburn/Nausea Ascorbic Acid (Ascorbic Acid 500 Mg Tablet) 500 mg PO DAILY [facility] Last Admin: 03/09/25 11:43 Dose: 500 mg Atorvastatin Calcium (Atorvastatin Calcium 20 Mg Tablet) 20 mg PO DAILY [facility] Last Admin: 03/09/25 09:21 Dose: 20 mg Benztropine Mesylate (Benztropine Mesylate 0.5 Mg Tablet) 0.5 mg PO TID [facility] Last Admin: 03/09/25 15:27 Dose: 0.5 mg Calcium Carbonate/Cholecalciferol (Calcium + Vitamin D 250 Mg Tablet) 250 mg PO BID [facility] Last Admin: 03/09/25 09:20 Dose: 250 mg Clonazepam (Clonazepam 0.5 Mg Tablet) 0.5 mg PO BEDTIME [facility] Last Admin: 03/08/25 21:00 Dose: 0.5 mg Donepezil HCl (Donepezil Hcl 10 Mg Tablet) 10 mg PO BEDTIME [facility] Doxepin HCl (Doxepin Hcl 10 Mg Capsule) 30 mg PO BEDTIME [facility] Last Admin: 03/08/25 20:59 Dose: 30 mg Ferrous Sulfate (Ferrous Sulfate 324 Mg Tablet.) 324 mg PO DAILY [facility] Last Admin: 03/09/25 11:43 Dose: 324 mg Folic Acid (Folic Acid 1 Mg Tablet) 1 mg PO DAILY [facility] Last Admin: 03/09/25 09:21 Dose: 1 mg Gabapentin (Gabapentin 100 Mg Capsule) 200 mg PO BEDTIME [facility] Gabapentin (Gabapentin 100 Mg Capsule) 100 mg PO DAILY [facility] Hydroxyzine HCl (Hydroxyzine Hcl 25 Mg Tablet) 25 mg PO BEDTIME PRN PRN Reason: Anxiety Lurasidone HCl (Lurasidone Hcl 40 Mg Tablet) 40 mg PO DAILY@1700 [facility] Magnesium Hydroxide (Milk Of Magnesia 30 Ml Oral.Susp) 30 ml PO DAILY PRN PRN Reason: Constipation Melatonin (Melatonin 3 Mg Tablet) 9 mg PO BEDTIME [facility] Last Admin: 03/08/25 21:01 Dose: 9 mg Multivitamins/Vitamin C (Multivitamin Tablet) 1 tab PO DAILY [facility] Last Admin: 03/09/25 09:23 Dose: 1 tab Nicotine (Nicotine 21 Mg Patch.Td24) 21 mg TRANSDERMA DAILY PRN PRN Reason: nicotine craving Nicotine Polacrilex (Nicotine Polacrilex 2 Mg Gum) 2 mg BUCCAL Q2H PRN PRN Reason: Nicotine Cravings Patient Own Medication ( Suvorexant [Belsomra ] 15 Mg Tablet) 15 mg PO BEDTIME PRN PRN Reason: Insomnia Last Admin: 03/07/25 21:48 Dose: 15 mg Olanzapine (Olanzapine 5 Mg Tablet) 5 mg PO BID PRN PRN Reason: agitation Propranolol HCl (Propranolol Hcl 10 Mg Tablet) 10 mg PO TID [facility]; Protocol Last Admin: 03/09/25 15:27 Dose: 10 mg Thiamine HCl (Thiamine Hcl 100 Mg Tablet) 100 mg PO BID [facility] Last Admin: 03/09/25 09:22 Dose: 100 mg Trazodone HCl (Trazodone Hcl 50 Mg Tablet) 50 mg PO BEDTIME MRX1 PRN PRN Reason: Insomnia Last Admin: 03/08/25 21:00 Dose: 50 mg Allergies Allergies Allergy/AdvReac Type Severity Reaction Status Date / Time risperidone (From Risperdal) Allergy Intermediate UNKNOWN Verified 03/06/25 11:22 Sulfa (Sulfonamide Allergy Intermediate rash Verified 03/06/25 11:22 Antibiotics) From BENADRYL Allergy Intermediate DIZZY Uncoded 11/08/24 13:12 Assessment & Plan Assessment & Plan (1) POONAM (generalized anxiety disorder): Status: Acute Code(s): F41.1 - Generalized anxiety disorder (2) Major depressive disorder, recurrent severe without psychotic features: Status: Acute Code(s): F33.2 - Major depressive disorder, recurrent severe without psychotic features Plan Mrs. Rodrigues is 74 year-old woman with hx of MDD, cognitive impairments who was brought by due to difficulty sleeping, affecting her mood including depression and anxious mood. She also reports poor appetite. This is her usual presentation focused on lack of sleep, feeling anxious and depressed. No SI/HI. She had home sleep study back in 05/2024 which was suggestive of needing oxygen at night and possible sleep apnea but patient had declined o2 at night. PLAN 03/08 continue gabapentin 100mg po qhs. add iron with vit c. 03/09 increase night time dose of gabapentin to 200mg po qhs. will add morning dose of gabapentin 100mg po daily. continue latuda- but will change to dinner time. Will also change aricept to night time. Reason for continued inpatient stay Substantial Risk for: inability to function Time Spent With Patient Time: Total time managing care of this patient today ____ minutes.
[2025-03-09 19:51] VITALS: BP 119/58; PULSE 78; RESP 16; TEMP 36.2; O2SAT 98
[2025-03-09 21:28] VITALS: BP 121/62; PULSE 76
[2025-03-10 08:40] VITALS: BP 103/65; PULSE 74; RESP 16; TEMP 36.6; O2SAT 95
[2025-03-10] MEDS: Ferrous Sulfate 324 MG TABLET.DR PO (09:35)
[2025-03-10] MEDS: Calcium + Vitamin D 250 MG TABLET PO ×2 (09:35→20:10)
--- NOTE | 2025-03-10 10:24 | PC.RT ---
overnight oximetry done on pt. she did not qualify for nocturnal oxygen based on her study that was done on 03/09/2025
[2025-03-10 14:40] VITALS: BP 117/56; PULSE 71
--- NOTE | 2025-03-10 16:03 | HO.PSYCHPN ---
Subjective Subjective Date of Service: 03/10/25 Reason For Visit: Decom, not sleeping. Subjective Notes: Conditional Voluntary Interim History: Per nursing, pt slept through the night. However, pt reports she was not able to sleep. She reports she feels depressed and terrible. She denies SI/HI. She is taking medications as prescribed. We discussed changing clonazepam to ativan. continue gabapetin 100mg po daily and 200mg po qhs. Review of Systems Review of Systems Unremarkable Mental Status Exam Mental Status Exam Narrative: Appearance: wearing hospital gown, fair hygiene, in NAD Behavior: cooperative and friendly Psychomotor: no agitation or retardation, Speech: slightly fast, normal rate/rhythm/volume, spontaneous TP: linear TC: focused on lack of sleep. Mood: good Affect: congruent SI: denies HI: denies VH/AH: none Delusions: none Insight/judgment: fair x 2. Memory/cog: alert, oriented to month, place, situation. Diagnostics Vital Signs (24Hr): Vital Signs - 24 hr 03/09/25 19:51 03/09/25 21:28 03/10/25 08:40 Temperature 97.2 F 97.9 F Pulse Rate 78 76 74 Respiratory Rate 16 16 Blood Pressure 119/58 L 121/62 103/65 Pulse Oximetry 98 95 Oxygen Delivery Method Room Air Room Air 03/10/25 14:40 Temperature Pulse Rate 71 Respiratory Rate Blood Pressure 117/56 L Pulse Oximetry Oxygen Delivery Method BMI result Body Mass Index 24.8 Labs 03/06/25 11:38 03/07/25 07:33 Labs: Laboratory Results - last 48 hr 03/07/25 15:56 ITZEL Screen NEGATIVE ITZEL Titer TNP ITZEL Titer 2 TNP ITZEL Titer 3 TNP ITZEL Pattern TNP ITZEL Pattern 2 TNP ITZEL Pattern 3 TNP Medications Medications Current Medications Acetaminophen (Acetaminophen 325 Mg Tablet) 650 mg PO Q6H PRN PRN Reason: Headache/Pain, Scale 1-10 Last Admin: 03/08/25 11:35 Dose: 650 mg Al Hydroxide/Mg Hydroxide (Magnesium Hydrox/Alum Hydrox 30 Ml Oral.Susp) 30 ml PO Q6H PRN PRN Reason: Heartburn/Nausea Ascorbic Acid (Ascorbic Acid 500 Mg Tablet) 500 mg PO DAILY [facility] Last Admin: 03/10/25 09:34 Dose: 500 mg Atorvastatin Calcium (Atorvastatin Calcium 20 Mg Tablet) 20 mg PO DAILY [facility] Last Admin: 03/10/25 09:33 Dose: 20 mg Benztropine Mesylate (Benztropine Mesylate 0.5 Mg Tablet) 0.5 mg PO TID [facility] Last Admin: 03/10/25 14:46 Dose: 0.5 mg Calcium Carbonate/Cholecalciferol (Calcium + Vitamin D 250 Mg Tablet) 250 mg PO BID [facility] Last Admin: 03/10/25 09:35 Dose: 250 mg Clonazepam (Clonazepam 0.5 Mg Tablet) 0.5 mg PO BEDTIME [facility] Last Admin: 03/09/25 21:30 Dose: 0.5 mg Donepezil HCl (Donepezil Hcl 10 Mg Tablet) 10 mg PO BEDTIME [facility] Doxepin HCl (Doxepin Hcl 10 Mg Capsule) 30 mg PO BEDTIME [facility] Last Admin: 03/09/25 21:31 Dose: 30 mg Ferrous Sulfate (Ferrous Sulfate 324 Mg Tablet.Dr) 324 mg PO DAILY [facility] Last Admin: 03/10/25 09:35 Dose: 324 mg Folic Acid (Folic Acid 1 Mg Tablet) 1 mg PO DAILY [facility] Last Admin: 03/10/25 09:34 Dose: 1 mg Gabapentin (Gabapentin 100 Mg Capsule) 200 mg PO BEDTIME [facility] Last Admin: 03/09/25 21:28 Dose: 200 mg Gabapentin (Gabapentin 100 Mg Capsule) 100 mg PO DAILY [facility] Last Admin: 03/10/25 09:33 Dose: 100 mg Hydroxyzine HCl (Hydroxyzine Hcl 25 Mg Tablet) 25 mg PO BEDTIME PRN PRN Reason: Anxiety Lurasidone HCl (Lurasidone Hcl 40 Mg Tablet) 40 mg PO DAILY@1700 [facility] Magnesium Hydroxide (Milk Of Magnesia 30 Ml Oral.Susp) 30 ml PO DAILY PRN PRN Reason: Constipation Melatonin (Melatonin 3 Mg Tablet) 9 mg PO BEDTIME [facility] Last Admin: 03/09/25 21:30 Dose: 9 mg Multivitamins/Vitamin C (Multivitamin Tablet) 1 tab PO DAILY [facility] Last Admin: 03/10/25 09:35 Dose: 1 tab Nicotine (Nicotine 21 Mg Patch.Td24) 21 mg TRANSDERMA DAILY PRN PRN Reason: nicotine craving Nicotine Polacrilex (Nicotine Polacrilex 2 Mg Gum) 2 mg BUCCAL Q2H PRN PRN Reason: Nicotine Cravings Patient Own Medication ( Suvorexant [Belsomra ] 15 Mg Tablet) 15 mg PO BEDTIME PRN PRN Reason: Insomnia Last Admin: 03/07/25 21:48 Dose: 15 mg Olanzapine (Olanzapine 5 Mg Tablet) 5 mg PO BID PRN PRN Reason: agitation Propranolol HCl (Propranolol Hcl 10 Mg Tablet) 10 mg PO TID [facility]; Protocol Last Admin: 03/10/25 14:46 Dose: 10 mg Thiamine HCl (Thiamine Hcl 100 Mg Tablet) 100 mg PO BID [facility] Last Admin: 03/10/25 09:34 Dose: 100 mg Trazodone HCl (Trazodone Hcl 50 Mg Tablet) 50 mg PO BEDTIME MRX1 PRN PRN Reason: Insomnia Last Admin: 03/10/25 01:31 Dose: 50 mg Allergies Allergies Allergy/AdvReac Type Severity Reaction Status Date / Time risperidone (From Risperdal) Allergy Intermediate UNKNOWN Verified 03/06/25 11:22 Sulfa (Sulfonamide Allergy Intermediate rash Verified 03/06/25 11:22 Antibiotics) From BENADRYL Allergy Intermediate DIZZY Uncoded 11/08/24 13:12 Assessment & Plan Assessment & Plan (1) POONAM (generalized anxiety disorder): Status: Acute Code(s): F41.1 - Generalized anxiety disorder (2) Major depressive disorder, recurrent severe without psychotic features: Status: Acute Code(s): F33.2 - Major depressive disorder, recurrent severe without psychotic features Plan Mrs. Rodrigues is 74 year-old woman with hx of MDD, cognitive impairments who was brought by due to difficulty sleeping, affecting her mood including depression and anxious mood. She also reports poor appetite. This is her usual presentation focused on lack of sleep, feeling anxious and depressed. No SI/HI. She had home sleep study back in 05/2024 which was suggestive of needing oxygen at night and possible sleep apnea but patient had declined o2 at night. PLAN 03/08 continue gabapentin 100mg po qhs. add iron with vit c. 03/09 increase night time dose of gabapentin to 200mg po qhs. will add morning dose of gabapentin 100mg po daily. continue latuda- but will change to dinner time. Will also change aricept to night time. 03/10 d/c clonazepam, ativan 1mg po qhs. added iron and vit c for low iron. Reason for continued inpatient stay Substantial Risk for: inability to function Time Spent With Patient Time: Total time managing care of this patient today ____ minutes.
[2025-03-10 20:07] VITALS: BP 106/53; PULSE 66; RESP 16; TEMP 36.4; O2SAT 96
[2025-03-10 20:10] VITALS: BP 106/53; PULSE 66
--- NOTE | 2025-03-11 07:25 | P.PNPSI_ITS ---
Subjective Subjective Date of Service: 03/11/25 Reason For Visit: Decom, not sleeping. Subjective Notes: Conditional Voluntary Interim History: no met with patient. Discussed with Nursing. Patient reports feeling a little bit better because her sleep is improving. Not depressed. Enjoying spending time in the day area and attending some groups. No SI. No agitation or psychosis. No med concerns Medication Compliance: Yes Side effects from medications: No Attending Groups: Yes Review of Systems Acute medical concerns: No Review of Systems Review of Systems Unremarkable Mental Status Exam Mental Status Exam Narrative: Appearance: wearing hospital gown, fair hygiene, in NAD Behavior: cooperative and friendly Psychomotor: no agitation or retardation, Speech: slightly fast, normal rate/rhythm/volume, spontaneous TP: linear TC: focused on lack of sleep. Mood: getting better Affect: congruent SI: denies HI: denies VH/AH: none Delusions: none Insight/judgment: fair x 2. Memory/cog: alert, oriented x 3. Diagnostics Vital Signs (24Hr): Vital Signs - 24 hr 03/10/25 08:40 03/10/25 14:40 03/10/25 20:07 Temperature 97.9 F 97.5 F Pulse Rate 74 71 66 Respiratory Rate 16 16 Blood Pressure 103/65 117/56 L 106/53 L Pulse Oximetry 95 96 Oxygen Delivery Method Room Air Room Air 03/10/25 20:10 Temperature Pulse Rate 66 Respiratory Rate Blood Pressure 106/53 L Pulse Oximetry Oxygen Delivery Method BMI result Body Mass Index 24.8 Labs 03/06/25 11:38 03/07/25 07:33 Labs: Laboratory Results - last 48 hr 03/07/25 15:56 ITZEL Titer TNP ITZEL Titer 2 TNP ITZEL Titer 3 TNP ITZEL Pattern TNP ITZEL Pattern 2 TNP ITZEL Pattern 3 TNP Medications Medications Current Medications Acetaminophen (Acetaminophen 325 Mg Tablet) 650 mg PO Q6H PRN PRN Reason: Headache/Pain, Scale 1-10 Last Admin: 03/08/25 11:35 Dose: 650 mg Al Hydroxide/Mg Hydroxide (Magnesium Hydrox/Alum Hydrox 30 Ml Oral.Susp) 30 ml PO Q6H PRN PRN Reason: Heartburn/Nausea Ascorbic Acid (Ascorbic Acid 500 Mg Tablet) 500 mg PO DAILY [facility] Last Admin: 03/10/25 09:34 Dose: 500 mg Atorvastatin Calcium (Atorvastatin Calcium 20 Mg Tablet) 20 mg PO DAILY [facility] Last Admin: 03/10/25 09:33 Dose: 20 mg Benztropine Mesylate (Benztropine Mesylate 0.5 Mg Tablet) 0.5 mg PO TID [facility] Last Admin: 03/10/25 20:11 Dose: 0.5 mg Calcium Carbonate/Cholecalciferol (Calcium + Vitamin D 250 Mg Tablet) 250 mg PO BID [facility] Last Admin: 03/10/25 20:10 Dose: 250 mg Donepezil HCl (Donepezil Hcl 10 Mg Tablet) 10 mg PO BEDTIME [facility] Last Admin: 03/10/25 20:11 Dose: 10 mg Doxepin HCl (Doxepin Hcl 10 Mg Capsule) 30 mg PO BEDTIME [facility] Last Admin: 03/10/25 20:11 Dose: 30 mg Ferrous Sulfate (Ferrous Sulfate 324 Mg Tablet.Dr) 324 mg PO DAILY [facility] Last Admin: 03/10/25 09:35 Dose: 324 mg Folic Acid (Folic Acid 1 Mg Tablet) 1 mg PO DAILY [facility] Last Admin: 03/10/25 09:34 Dose: 1 mg Gabapentin (Gabapentin 100 Mg Capsule) 200 mg PO BEDTIME [facility] Last Admin: 03/10/25 20:10 Dose: 200 mg Gabapentin (Gabapentin 100 Mg Capsule) 100 mg PO DAILY [facility] Last Admin: 03/10/25 09:33 Dose: 100 mg Hydroxyzine HCl (Hydroxyzine Hcl 25 Mg Tablet) 25 mg PO BEDTIME PRN PRN Reason: Anxiety Lorazepam (Lorazepam 1 Mg Tablet) 1 mg PO BEDTIME [facility] Last Admin: 03/10/25 20:10 Dose: 1 mg Lurasidone HCl (Lurasidone Hcl 40 Mg Tablet) 40 mg PO DAILY@1700 [facility] Last Admin: 03/10/25 16:43 Dose: 40 mg Magnesium Hydroxide (Milk Of Magnesia 30 Ml Oral.Susp) 30 ml PO DAILY PRN PRN Reason: Constipation Multivitamins/Vitamin C (Multivitamin Tablet) 1 tab PO DAILY [facility] Last Admin: 03/10/25 09:35 Dose: 1 tab Nicotine (Nicotine 21 Mg Patch.Td24) 21 mg TRANSDERMA DAILY PRN PRN Reason: nicotine craving Nicotine Polacrilex (Nicotine Polacrilex 2 Mg Gum) 2 mg BUCCAL Q2H PRN PRN Reason: Nicotine Cravings Pt Own (Suvorexant [ (Belsomra] 15 Mg)) 15 mg PO BEDTIME [facility] Last Admin: 03/10/25 20:15 Dose: Not Given Olanzapine (Olanzapine 5 Mg Tablet) 5 mg PO BID PRN PRN Reason: agitation Last Admin: 03/10/25 21:45 Dose: 5 mg Propranolol HCl (Propranolol Hcl 10 Mg Tablet) 10 mg PO TID [facility]; Protocol Last Admin: 03/10/25 20:10 Dose: 10 mg Thiamine HCl (Thiamine Hcl 100 Mg Tablet) 100 mg PO BID [facility] Last Admin: 03/10/25 20:11 Dose: 100 mg Trazodone HCl (Trazodone Hcl 50 Mg Tablet) 50 mg PO BEDTIME MRX1 PRN PRN Reason: Insomnia Last Admin: 03/10/25 21:45 Dose: 50 mg Allergies Allergies Allergy/AdvReac Type Severity Reaction Status Date / Time risperidone (From Risperdal) Allergy Intermediate UNKNOWN Verified 03/06/25 11:22 Sulfa (Sulfonamide Allergy Intermediate rash Verified 03/06/25 11:22 Antibiotics) From BENADRYL Allergy Intermediate DIZZY Uncoded 11/08/24 13:12 Assessment & Plan Assessment & Plan (1) POONAM (generalized anxiety disorder): Status: Acute Code(s): F41.1 - Generalized anxiety disorder (2) Major depressive disorder, recurrent severe without psychotic features: Status: Acute Code(s): F33.2 - Major depressive disorder, recurrent severe without psychotic features Plan Mrs. Rodrigues is 74 year-old woman with hx of MDD, cognitive impairments who was brought by due to difficulty sleeping, affecting her mood including depression and anxious mood. She also reports poor appetite. This is her usual presentation focused on lack of sleep, feeling anxious and depressed. No SI/HI. She had home sleep study back in 05/2024 which was suggestive of needing oxygen at night and possible sleep apnea but patient had declined o2 at night. PLAN 03/08 continue gabapentin 100mg po qhs. add iron with vit c. 03/09 increase night time dose of gabapentin to 200mg po qhs. will add morning dose of gabapentin 100mg po daily. continue latuda- but will change to dinner time. Will also change aricept to night time. 03/11/2025: No changes and gradually improving Reason for continued inpatient stay Substantial Risk for: rapid decompensation Time Spent With Patient Time: Total time managing care of this patient today ____ minutes.
[2025-03-11 08:00] VITALS: BP 111/58; PULSE 84; RESP 16; TEMP 36.2; O2SAT 96
[2025-03-11] MEDS: Calcium + Vitamin D 250 MG TABLET PO ×2 (08:50→19:58)
[2025-03-11] MEDS: Ferrous Sulfate 324 MG TABLET.DR PO (08:51)
[2025-03-11 16:09] VITALS: BP 114/87; PULSE 89
[2025-03-11 19:56] VITALS: BP 117/63; PULSE 73; RESP 16; TEMP 36.3; O2SAT 95
[2025-03-11 19:58] VITALS: BP 117/63; PULSE 73
[2025-03-12 08:00] VITALS: BP 110/61; PULSE 82; RESP 16; TEMP 36.3; O2SAT 96
[2025-03-12] MEDS: Ferrous Sulfate 324 MG TABLET.DR PO (08:49)
[2025-03-12] MEDS: Calcium + Vitamin D 250 MG TABLET PO ×2 (08:49→20:34)
--- NOTE | 2025-03-12 11:10 | P.PNPSI_ITS ---
Subjective Subjective Date of Service: 03/12/25 Reason For Visit: Decom, not sleeping. Interim History: no met with patient. Discussed with Nursing. patient reports today she did not sleep at all last night. This is contrary to staff observation and documentation which was slept for 8 hours. Otherwise denies feeling depressed. No suicidal thoughts. No voices. Medication Compliance: Yes Side effects from medications: No Attending Groups: Yes Review of Systems Acute medical concerns: No Review of Systems Review of Systems Unremarkable Mental Status Exam Mental Status Exam Narrative: Appearance: wearing hospital gown, fair hygiene, in NAD Behavior: cooperative and friendly Psychomotor: no agitation or retardation, Speech: slightly fast, normal rate/rhythm/volume, spontaneous TP: linear TC: focused on lack of sleep. Mood: good Affect: congruent SI: denies HI: denies VH/AH: none Delusions: none Insight/judgment: fair x 2. Memory/cog: alert, oriented x 3. Diagnostics Vital Signs (24Hr): Vital Signs - 24 hr 03/11/25 16:09 03/11/25 19:56 03/11/25 19:58 Temperature 97.3 F Pulse Rate 89 73 73 Respiratory Rate 16 Blood Pressure 114/87 117/63 117/63 Pulse Oximetry 95 Oxygen Delivery Method Room Air BMI result Body Mass Index 24.8 Labs 03/06/25 11:38 03/07/25 07:33 Medications Medications Current Medications Acetaminophen (Acetaminophen 325 Mg Tablet) 650 mg PO Q6H PRN PRN Reason: Headache/Pain, Scale 1-10 Last Admin: 03/08/25 11:35 Dose: 650 mg Al Hydroxide/Mg Hydroxide (Magnesium Hydrox/Alum Hydrox 30 Ml Oral.Susp) 30 ml PO Q6H PRN PRN Reason: Heartburn/Nausea Ascorbic Acid (Ascorbic Acid 500 Mg Tablet) 500 mg PO DAILY [facility] Last Admin: 03/12/25 08:50 Dose: 500 mg Atorvastatin Calcium (Atorvastatin Calcium 20 Mg Tablet) 20 mg PO DAILY [facility] Last Admin: 03/12/25 08:50 Dose: 20 mg Benztropine Mesylate (Benztropine Mesylate 0.5 Mg Tablet) 0.5 mg PO TID [facility] Last Admin: 03/12/25 08:50 Dose: 0.5 mg Calcium Carbonate/Cholecalciferol (Calcium + Vitamin D 250 Mg Tablet) 250 mg PO BID [facility] Last Admin: 03/12/25 08:49 Dose: 250 mg Donepezil HCl (Donepezil Hcl 10 Mg Tablet) 10 mg PO BEDTIME [facility] Last Admin: 03/11/25 19:58 Dose: 10 mg Doxepin HCl (Doxepin Hcl 10 Mg Capsule) 30 mg PO BEDTIME [facility] Last Admin: 03/11/25 19:58 Dose: 30 mg Ferrous Sulfate (Ferrous Sulfate 324 Mg Tablet.Dr) 324 mg PO DAILY [facility] Last Admin: 03/12/25 08:49 Dose: 324 mg Folic Acid (Folic Acid 1 Mg Tablet) 1 mg PO DAILY [facility] Last Admin: 03/12/25 08:50 Dose: 1 mg Gabapentin (Gabapentin 100 Mg Capsule) 200 mg PO BEDTIME [facility] Last Admin: 03/11/25 19:57 Dose: 200 mg Gabapentin (Gabapentin 100 Mg Capsule) 100 mg PO DAILY [facility] Last Admin: 03/12/25 08:50 Dose: 100 mg Hydroxyzine HCl (Hydroxyzine Hcl 25 Mg Tablet) 25 mg PO BEDTIME PRN PRN Reason: Anxiety Lorazepam (Lorazepam 1 Mg Tablet) 1 mg PO BEDTIME [facility] Last Admin: 03/11/25 19:58 Dose: 1 mg Lurasidone HCl (Lurasidone Hcl 40 Mg Tablet) 40 mg PO DAILY@1700 [facility] Last Admin: 03/11/25 16:10 Dose: 40 mg Magnesium Hydroxide (Milk Of Magnesia 30 Ml Oral.Susp) 30 ml PO DAILY PRN PRN Reason: Constipation Multivitamins/Vitamin C (Multivitamin Tablet) 1 tab PO DAILY [facility] Last Admin: 03/12/25 08:47 Dose: 1 tab Nicotine (Nicotine 21 Mg Patch.Td24) 21 mg TRANSDERMA DAILY PRN PRN Reason: nicotine craving Nicotine Polacrilex (Nicotine Polacrilex 2 Mg Gum) 2 mg BUCCAL Q2H PRN PRN Reason: Nicotine Cravings Pt Own (Suvorexant [ (Belsomra] 15 Mg)) 15 mg PO BEDTIME [facility] Last Admin: 03/11/25 20:01 Dose: Not Given Olanzapine (Olanzapine 5 Mg Tablet) 5 mg PO BID PRN PRN Reason: agitation Last Admin: 03/11/25 20:47 Dose: 5 mg Propranolol HCl (Propranolol Hcl 10 Mg Tablet) 10 mg PO TID [facility]; Protocol Last Admin: 03/12/25 08:49 Dose: 10 mg Thiamine HCl (Thiamine Hcl 100 Mg Tablet) 100 mg PO BID [facility] Last Admin: 03/12/25 08:47 Dose: 100 mg Trazodone HCl (Trazodone Hcl 50 Mg Tablet) 50 mg PO BEDTIME MRX1 PRN PRN Reason: Insomnia Last Admin: 03/11/25 20:47 Dose: 50 mg Allergies Allergies Allergy/AdvReac Type Severity Reaction Status Date / Time risperidone (From Risperdal) Allergy Intermediate UNKNOWN Verified 03/06/25 11:22 Sulfa (Sulfonamide Allergy Intermediate rash Verified 03/06/25 11:22 Antibiotics) From BENADRYL Allergy Intermediate DIZZY Uncoded 11/08/24 13:12 Assessment & Plan Assessment & Plan (1) POONAM (generalized anxiety disorder): Status: Acute Code(s): F41.1 - Generalized anxiety disorder (2) Major depressive disorder, recurrent severe without psychotic features: Status: Acute Code(s): F33.2 - Major depressive disorder, recurrent severe without psychotic features Plan Mrs. Rodrigues is 74 year-old woman with hx of MDD, cognitive impairments who was brought by due to difficulty sleeping, affecting her mood including depression and anxious mood. She also reports poor appetite. This is her usual presentation focused on lack of sleep, feeling anxious and depressed. No SI/HI. She had home sleep study back in 05/2024 which was suggestive of needing oxygen at night and possible sleep apnea but patient had declined o2 at night. PLAN 03/08 continue gabapentin 100mg po qhs. add iron with vit c. 03/09 increase night time dose of gabapentin to 200mg po qhs. will add morning dose of gabapentin 100mg po daily. continue latuda- but will change to dinner time. Will also change aricept to night time. 03/11/2025: No changes and gradually improving 03/12/2025: No changes Reason for continued inpatient stay Substantial Risk for: rapid decompensation Time Spent With Patient Time: Total time managing care of this patient today ____ minutes.
[2025-03-12 15:17] VITALS: BP 120/67; PULSE 84
[2025-03-12 20:00] VITALS: BP 113/60; PULSE 73; RESP 16; TEMP 36.3; O2SAT 96
--- NOTE | 2025-03-13 | ECG_ITS ---
Test Reason : QTC Blood Pressure : */* mmHG Vent. Rate : 66 BPM Atrial Rate : 66 BPM P-R Int : 152 ms QRS Dur : 70 ms QT Int : 390 ms P-R-T Axes : 33 27 50 degrees QTcB Int : 408 ms Normal sinus rhythm Normal ECG When compared with ECG of 06-Mar-2025 11:30, Criteria for Inferior infarct are no longer Present Referred By: Judith Leo Electronically Signed By: NIK ALBRIGHT MD
[2025-03-13 08:30] VITALS: BP 119/70; PULSE 75; RESP 18; TEMP 36.4; O2SAT 97
[2025-03-13] MEDS: Calcium + Vitamin D 250 MG TABLET PO ×2 (08:34→20:20)
[2025-03-13] MEDS: Ferrous Sulfate 324 MG TABLET.DR PO (08:35)
--- NOTE | 2025-03-13 14:01 | P.PNPSI_ITS ---
Subjective Subjective Date of Service: 03/13/25 Reason For Visit: Decom, not sleeping. Subjective Notes: Conditional Voluntary Interim History: Per nursing, pt slept through the night. Today pt reports she slept and describes mood as good. She denies SI/HI. She has been visible on the unit and social with select peers. taking medications as prescribed. we had discussed to try clomipramine for generalized anxiety- EKG done. Medication Compliance: Yes Review of Systems Review of Systems Unremarkable Mental Status Exam Mental Status Exam Narrative: Appearance: wearing hospital gown, fair hygiene, in NAD Behavior: cooperative and friendly Psychomotor: no agitation or retardation, Speech: slightly fast, normal rate/rhythm/volume, spontaneous TP: linear TC: focused on lack of sleep. Mood: good Affect: congruent SI: denies HI: denies VH/AH: none Delusions: none Insight/judgment: fair x 2. Memory/cog: alert, oriented to month, place, situation. Diagnostics Vital Signs (24Hr): Vital Signs - 24 hr 03/12/25 15:17 03/12/25 20:00 03/13/25 08:30 Temperature 97.3 F 97.5 F Pulse Rate 84 73 75 Respiratory Rate 16 18 Blood Pressure 120/67 113/60 119/70 Pulse Oximetry 96 97 Oxygen Delivery Method Room Air Room Air BMI result Body Mass Index 24.8 Labs 03/06/25 11:38 03/07/25 07:33 Medications Medications Current Medications Acetaminophen (Acetaminophen 325 Mg Tablet) 650 mg PO Q6H PRN PRN Reason: Headache/Pain, Scale 1-10 Last Admin: 03/08/25 11:35 Dose: 650 mg Al Hydroxide/Mg Hydroxide (Magnesium Hydrox/Alum Hydrox 30 Ml Oral.Susp) 30 ml PO Q6H PRN PRN Reason: Heartburn/Nausea Ascorbic Acid (Ascorbic Acid 500 Mg Tablet) 500 mg PO DAILY [facility] Last Admin: 03/13/25 08:34 Dose: 500 mg Atorvastatin Calcium (Atorvastatin Calcium 20 Mg Tablet) 20 mg PO DAILY [facility] Last Admin: 03/13/25 08:34 Dose: 20 mg Benztropine Mesylate (Benztropine Mesylate 0.5 Mg Tablet) 0.5 mg PO TID [facility] Last Admin: 03/13/25 08:35 Dose: 0.5 mg Calcium Carbonate/Cholecalciferol (Calcium + Vitamin D 250 Mg Tablet) 250 mg PO BID [facility] Last Admin: 03/13/25 08:34 Dose: 250 mg Clomipramine HCl (Clomipramine Hcl 25 Mg Capsule) 25 mg PO BEDTIME [facility] Donepezil HCl (Donepezil Hcl 10 Mg Tablet) 10 mg PO BEDTIME [facility] Last Admin: 03/12/25 20:35 Dose: 10 mg Doxepin HCl (Doxepin Hcl 25 Mg Capsule) 25 mg PO BEDTIME [facility] Ferrous Sulfate (Ferrous Sulfate 324 Mg Tablet.Dr) 324 mg PO DAILY [facility] Last Admin: 03/13/25 08:35 Dose: 324 mg Folic Acid (Folic Acid 1 Mg Tablet) 1 mg PO DAILY [facility] Last Admin: 03/13/25 08:34 Dose: 1 mg Gabapentin (Gabapentin 100 Mg Capsule) 200 mg PO BEDTIME [facility] Last Admin: 03/12/25 20:34 Dose: 200 mg Gabapentin (Gabapentin 100 Mg Capsule) 100 mg PO DAILY [facility] Last Admin: 03/13/25 08:34 Dose: 100 mg Hydroxyzine HCl (Hydroxyzine Hcl 25 Mg Tablet) 25 mg PO BEDTIME PRN PRN Reason: Anxiety Lorazepam (Lorazepam 1 Mg Tablet) 1 mg PO BEDTIME [facility] Last Admin: 03/12/25 20:35 Dose: 1 mg Lurasidone HCl (Lurasidone Hcl 20 Mg Tablet) 20 mg PO DAILY@1700 [facility] Magnesium Hydroxide (Milk Of Magnesia 30 Ml Oral.Susp) 30 ml PO DAILY PRN PRN Reason: Constipation Multivitamins/Vitamin C (Multivitamin Tablet) 1 tab PO DAILY [facility] Last Admin: 03/13/25 08:34 Dose: 1 tab Nicotine (Nicotine 21 Mg Patch.Td24) 21 mg TRANSDERMA DAILY PRN PRN Reason: nicotine craving Nicotine Polacrilex (Nicotine Polacrilex 2 Mg Gum) 2 mg BUCCAL Q2H PRN PRN Reason: Nicotine Cravings Pt Own (Suvorexant [ (Belsomra] 15 Mg)) 15 mg PO BEDTIME [facility] Last Admin: 03/12/25 20:35 Dose: Not Given Olanzapine (Olanzapine 5 Mg Tablet) 5 mg PO BID PRN PRN Reason: agitation Last Admin: 03/11/25 20:47 Dose: 5 mg Propranolol HCl (Propranolol Hcl 10 Mg Tablet) 10 mg PO TID [facility]; Protocol Last Admin: 03/13/25 08:34 Dose: 10 mg Thiamine HCl (Thiamine Hcl 100 Mg Tablet) 100 mg PO BID [facility] Last Admin: 03/13/25 08:34 Dose: 100 mg Trazodone HCl (Trazodone Hcl 50 Mg Tablet) 50 mg PO BEDTIME MRX1 PRN PRN Reason: Insomnia Last Admin: 03/11/25 20:47 Dose: 50 mg Allergies Allergies Allergy/AdvReac Type Severity Reaction Status Date / Time risperidone (From Risperdal) Allergy Intermediate UNKNOWN Verified 03/06/25 11:22 Sulfa (Sulfonamide Allergy Intermediate rash Verified 03/06/25 11:22 Antibiotics) From BENADRYL Allergy Intermediate DIZZY Uncoded 11/08/24 13:12 Assessment & Plan Assessment & Plan (1) POONAM (generalized anxiety disorder): Status: Acute Code(s): F41.1 - Generalized anxiety disorder (2) Major depressive disorder, recurrent severe without psychotic features: Status: Acute Code(s): F33.2 - Major depressive disorder, recurrent severe without psychotic features Plan Mrs. Rodrigues is 74 year-old woman with hx of MDD, cognitive impairments who was brought by due to difficulty sleeping, affecting her mood including depression and anxious mood. She also reports poor appetite. This is her usual presentation focused on lack of sleep, feeling anxious and depressed. No SI/HI. She had home sleep study back in 05/2024 which was suggestive of needing oxygen at night and possible sleep apnea but patient had declined o2 at night. PLAN 03/08 continue gabapentin 100mg po qhs. add iron with vit c. 03/09 increase night time dose of gabapentin to 200mg po qhs. will add morning dose of gabapentin 100mg po daily. continue latuda- but will change to dinner time. Will also change aricept to night time. 03/10 d/c clonazepam, ativan 1mg po qhs. added iron and vit c for low iron. 03/13 lower doxepin to 25mg po qhs, start clomipramine 25mg po qhs. continue gabapentin. lower latuda to 20mg po at dinner time. Reason for continued inpatient stay Substantial Risk for: inability to function Time Spent With Patient Time: Total time managing care of this patient today ____ minutes.
[2025-03-13 14:29] VITALS: BP 117/65
[2025-03-13 20:00] VITALS: BP 108/60; PULSE 70; RESP 16; TEMP 36.4; O2SAT 98
[2025-03-14 08:51] VITALS: BP 90/61; PULSE 90; RESP 18; TEMP 36.6; O2SAT 93
[2025-03-14] MEDS: Ferrous Sulfate 324 MG TABLET.DR PO (08:59)
[2025-03-14] MEDS: Calcium + Vitamin D 250 MG TABLET PO ×2 (08:59→21:05)
--- NOTE | 2025-03-14 09:01 | MHC.CLN ---
NUTRITION USUAL PO INTAKE 100% AT MEALS. DISCONTINUE ENSURE TID DUE TO GOOD PO INTAKE. PATIENT MAY HAVE SUPPLEMENT ON UNIT IF DESIRED.
[2025-03-14 14:38] VITALS: BP 117/62
--- NOTE | 2025-03-14 17:45 | MHC.SL.SWA ---
Speech Pathologist Impression: Risk of Aspiration Due to: Dysphasia Diet Status: Liquid Consistency and Strategies for Safe Swallow: Liquid Intake Recommendation: Thin Liquid Intake Strategies: Solid Food Consistency: Dietary Recommendations: Regular Additional Modifications to Solid Foods: Oral Medication Intake: Whole with Puree Please contact the pharmacy regarding appropriate crushable or liquid drug formulations that are available whenever modified delivery is recommended. Compensatory Strategies and Precautions to be Taken for Safe Swallow: Supervision While Eating and Drinking for Safe Swallow: None Needed Foods to Avoid: Tough, difficult to chew solids. Swallowing Recommended Treatments: Recommendation for Speech: NA:Typical Evaluation Comment: Patient presents with a mild oral phase dysphagia secondary to some loose dental appliances. Patient's swallow otherwise WFL. Recommend continue on Regular diet with thin liquids. Recommend administration of pills in puree to avoid repeat of noted choking behavior. Patient advised to continue to elect softer foods from regular, which she was already doing. No further PATTERN DEVELOPER service indicated at this time, PATTERN DEVELOPER will complete order. STEVEN RODRIGUEZ notified of recommendations by secure text, RN in person. Frequency/Duration: Date Range for Service Req: Timeline to reassess: Salesman/Owner Clinican/Clinical Fellow: No Supervisory Statement: I have reviewed and agree with the student/clinical fellow's documentation: N/A Speech Language Pathologist: Rosalina Duque M.A., CCC-PATTERN DEVELOPER
--- NOTE | 2025-03-14 19:50 | HO.PSYCHPN ---
Subjective Subjective Date of Service: 03/14/25 Reason For Visit: Decom, not sleeping. Subjective Notes: Conditional Voluntary Interim History: Pt continues to report that she is sleeping and that her mood is improving. She has been visible on the unit, social with peers and staff. denies any concerns. Review of Systems Review of Systems Unremarkable Mental Status Exam Mental Status Exam Narrative: Appearance: wearing hospital gown, fair hygiene, in NAD Behavior: cooperative and friendly Psychomotor: no agitation or retardation, Speech: slightly fast, normal rate/rhythm/volume, spontaneous TP: linear TC: focused on lack of sleep. Mood: good Affect: congruent SI: denies HI: denies VH/AH: none Delusions: none Insight/judgment: fair x 2. Memory/cog: alert, oriented to month, place, situation. Diagnostics Vital Signs (24Hr): Vital Signs - 24 hr 03/13/25 20:00 03/14/25 08:51 03/14/25 14:38 Temperature 97.6 F 97.9 F Pulse Rate 70 90 Respiratory Rate 16 18 Blood Pressure 108/60 90/61 117/62 Pulse Oximetry 98 93 Oxygen Delivery Method Room Air Room Air BMI result Body Mass Index 24.8 Labs 03/06/25 11:38 03/07/25 07:33 Medications Medications Current Medications Acetaminophen (Acetaminophen 325 Mg Tablet) 650 mg PO Q6H PRN PRN Reason: Headache/Pain, Scale 1-10 Last Admin: 03/08/25 11:35 Dose: 650 mg Al Hydroxide/Mg Hydroxide (Magnesium Hydrox/Alum Hydrox 30 Ml Oral.Susp) 30 ml PO Q6H PRN PRN Reason: Heartburn/Nausea Ascorbic Acid (Ascorbic Acid 500 Mg Tablet) 500 mg PO DAILY [facility] Last Admin: 03/14/25 09:01 Dose: 500 mg Atorvastatin Calcium (Atorvastatin Calcium 20 Mg Tablet) 20 mg PO DAILY [facility] Last Admin: 03/14/25 08:59 Dose: 20 mg Benztropine Mesylate (Benztropine Mesylate 0.5 Mg Tablet) 0.5 mg PO BID [facility] Last Admin: 03/14/25 08:59 Dose: 0.5 mg Calcium Carbonate/Cholecalciferol (Calcium + Vitamin D 250 Mg Tablet) 250 mg PO BID [facility] Last Admin: 03/14/25 08:59 Dose: 250 mg Clomipramine HCl (Clomipramine Hcl 25 Mg Capsule) 50 mg PO BEDTIME [facility] Donepezil HCl (Donepezil Hcl 10 Mg Tablet) 10 mg PO BEDTIME [facility] Last Admin: 03/13/25 20:21 Dose: 10 mg Doxepin HCl (Doxepin Hcl 25 Mg Capsule) 25 mg PO BEDTIME [facility] Last Admin: 03/13/25 20:20 Dose: 25 mg Ferrous Sulfate (Ferrous Sulfate 324 Mg Tablet.Dr) 324 mg PO DAILY [facility] Last Admin: 03/14/25 08:59 Dose: 324 mg Folic Acid (Folic Acid 1 Mg Tablet) 1 mg PO DAILY [facility] Last Admin: 03/14/25 08:59 Dose: 1 mg Gabapentin (Gabapentin 100 Mg Capsule) 200 mg PO BEDTIME [facility] Last Admin: 03/13/25 20:20 Dose: 200 mg Gabapentin (Gabapentin 100 Mg Capsule) 100 mg PO DAILY [facility] Last Admin: 03/14/25 09:00 Dose: 100 mg Hydroxyzine HCl (Hydroxyzine Hcl 25 Mg Tablet) 25 mg PO BEDTIME PRN PRN Reason: Anxiety Last Admin: 03/13/25 20:21 Dose: 25 mg Lorazepam (Lorazepam 1 Mg Tablet) 1 mg PO BEDTIME [facility] Last Admin: 03/13/25 20:20 Dose: 1 mg Lurasidone HCl (Lurasidone Hcl 20 Mg Tablet) 20 mg PO DAILY@1700 [facility] Last Admin: 03/14/25 16:43 Dose: 20 mg Magnesium Hydroxide (Milk Of Magnesia 30 Ml Oral.Susp) 30 ml PO DAILY PRN PRN Reason: Constipation Multivitamins/Vitamin C (Multivitamin Tablet) 1 tab PO DAILY [facility] Last Admin: 03/14/25 08:59 Dose: 1 tab Nicotine (Nicotine 21 Mg Patch.Td24) 21 mg TRANSDERMA DAILY PRN PRN Reason: nicotine craving Nicotine Polacrilex (Nicotine Polacrilex 2 Mg Gum) 2 mg BUCCAL Q2H PRN PRN Reason: Nicotine Cravings Pt Own (Suvorexant [ (Belsomra] 15 Mg)) 15 mg PO BEDTIME [facility] Last Admin: 03/13/25 20:25 Dose: Not Given Olanzapine (Olanzapine 5 Mg Tablet) 5 mg PO BID PRN PRN Reason: agitation Last Admin: 03/11/25 20:47 Dose: 5 mg Propranolol HCl (Propranolol Hcl 10 Mg Tablet) 10 mg PO TID [facility]; Protocol Last Admin: 03/14/25 14:38 Dose: 10 mg Thiamine HCl (Thiamine Hcl 100 Mg Tablet) 100 mg PO BID [facility] Last Admin: 03/14/25 08:59 Dose: 100 mg Trazodone HCl (Trazodone Hcl 50 Mg Tablet) 50 mg PO BEDTIME MRX1 PRN PRN Reason: Insomnia Last Admin: 03/13/25 20:21 Dose: 50 mg Allergies Allergies Allergy/AdvReac Type Severity Reaction Status Date / Time risperidone (From Risperdal) Allergy Intermediate UNKNOWN Verified 03/06/25 11:22 Sulfa (Sulfonamide Allergy Intermediate rash Verified 03/06/25 11:22 Antibiotics) From BENADRYL Allergy Intermediate DIZZY Uncoded 11/08/24 13:12 Assessment & Plan Assessment & Plan (1) POONAM (generalized anxiety disorder): Status: Acute Code(s): F41.1 - Generalized anxiety disorder (2) Major depressive disorder, recurrent severe without psychotic features: Status: Acute Code(s): F33.2 - Major depressive disorder, recurrent severe without psychotic features Plan Mrs. Rodrigues is 74 year-old woman with hx of MDD, cognitive impairments who was brought by due to difficulty sleeping, affecting her mood including depression and anxious mood. She also reports poor appetite. This is her usual presentation focused on lack of sleep, feeling anxious and depressed. No SI/HI. She had home sleep study back in 05/2024 which was suggestive of needing oxygen at night and possible sleep apnea but patient had declined o2 at night. PLAN 03/08 continue gabapentin 100mg po qhs. add iron with vit c. 03/09 increase night time dose of gabapentin to 200mg po qhs. will add morning dose of gabapentin 100mg po daily. continue latuda- but will change to dinner time. Will also change aricept to night time. 03/10 d/c clonazepam, ativan 1mg po qhs. added iron and vit c for low iron. 03/13 lower doxepin to 25mg po qhs, start clomipramine 25mg po qhs. continue gabapentin. lower latuda to 20mg po at dinner time. 03/14 continue tx. Reason for continued inpatient stay Substantial Risk for: inability to function Time Spent With Patient Time: Total time managing care of this patient today ____ minutes.
[2025-03-14 20:00] VITALS: BP 112/64; PULSE 74; RESP 16; TEMP 36.4; O2SAT 95
[2025-03-15 08:00] VITALS: BP 104/66; PULSE 81; RESP 14; TEMP 36.5; O2SAT 95
[2025-03-15] MEDS: Calcium + Vitamin D 250 MG TABLET PO ×2 (09:08→20:42)
[2025-03-15] MEDS: Ferrous Sulfate 324 MG TABLET.DR PO (09:09)
[2025-03-15 15:53] VITALS: BP 113/64; PULSE 70
--- NOTE | 2025-03-15 16:51 | P.PNPSI_ITS ---
Subjective Subjective Date of Service: 03/15/25 Reason For Visit: Decom, not sleeping. Subjective Notes: Conditional Voluntary Interim History: Pt continues to report that she is sleeping and that her mood is improving. She has been visible on the unit, social with peers and staff. denies any concerns. reports mild dry mouth. Review of Systems Review of Systems Unremarkable Mental Status Exam Mental Status Exam Narrative: Appearance: wearing hospital gown, fair hygiene, in NAD Behavior: cooperative and friendly Psychomotor: no agitation or retardation, Speech: slightly fast, normal rate/rhythm/volume, spontaneous TP: linear TC: focused on lack of sleep. Mood: good Affect: congruent SI: denies HI: denies VH/AH: none Delusions: none Insight/judgment: fair x 2. Memory/cog: alert, oriented to month, place, situation. Diagnostics Vital Signs (24Hr): Vital Signs - 24 hr 03/14/25 20:00 03/15/25 08:00 03/15/25 15:53 Temperature 97.6 F 97.7 F Pulse Rate 74 81 70 Respiratory Rate 16 14 Blood Pressure 112/64 104/66 113/64 Pulse Oximetry 95 95 Oxygen Delivery Method Room Air Room Air BMI result Body Mass Index 24.8 Labs 03/06/25 11:38 03/07/25 07:33 Medications Medications Current Medications Acetaminophen (Acetaminophen 325 Mg Tablet) 650 mg PO Q6H PRN PRN Reason: Headache/Pain, Scale 1-10 Last Admin: 03/08/25 11:35 Dose: 650 mg Al Hydroxide/Mg Hydroxide (Magnesium Hydrox/Alum Hydrox 30 Ml Oral.Susp) 30 ml PO Q6H PRN PRN Reason: Heartburn/Nausea Ascorbic Acid (Ascorbic Acid 500 Mg Tablet) 500 mg PO DAILY [facility] Last Admin: 03/15/25 09:09 Dose: 500 mg Atorvastatin Calcium (Atorvastatin Calcium 20 Mg Tablet) 20 mg PO DAILY [facility] Last Admin: 03/15/25 09:09 Dose: 20 mg Benztropine Mesylate (Benztropine Mesylate 0.5 Mg Tablet) 0.5 mg PO BID [facility] Last Admin: 03/15/25 09:09 Dose: 0.5 mg Calcium Carbonate/Cholecalciferol (Calcium + Vitamin D 250 Mg Tablet) 250 mg PO BID [facility] Last Admin: 03/15/25 09:08 Dose: 250 mg Clomipramine HCl (Clomipramine Hcl 25 Mg Capsule) 50 mg PO BEDTIME [facility] Last Admin: 03/14/25 21:05 Dose: 50 mg Donepezil HCl (Donepezil Hcl 10 Mg Tablet) 10 mg PO BEDTIME [facility] Last Admin: 03/14/25 21:05 Dose: 10 mg Doxepin HCl (Doxepin Hcl 25 Mg Capsule) 25 mg PO BEDTIME [facility] Last Admin: 03/14/25 21:05 Dose: 25 mg Ferrous Sulfate (Ferrous Sulfate 324 Mg Tablet.Dr) 324 mg PO DAILY [facility] Last Admin: 03/15/25 09:09 Dose: 324 mg Folic Acid (Folic Acid 1 Mg Tablet) 1 mg PO DAILY [facility] Last Admin: 03/15/25 09:09 Dose: 1 mg Gabapentin (Gabapentin 100 Mg Capsule) 200 mg PO BEDTIME [facility] Last Admin: 03/14/25 21:05 Dose: 200 mg Gabapentin (Gabapentin 100 Mg Capsule) 100 mg PO DAILY [facility] Last Admin: 03/15/25 09:09 Dose: 100 mg Hydroxyzine HCl (Hydroxyzine Hcl 25 Mg Tablet) 25 mg PO BEDTIME PRN PRN Reason: Anxiety Last Admin: 03/14/25 21:05 Dose: 25 mg Lorazepam (Lorazepam 1 Mg Tablet) 1 mg PO BEDTIME [facility] Last Admin: 03/14/25 21:05 Dose: 1 mg Lurasidone HCl (Lurasidone Hcl 20 Mg Tablet) 20 mg PO DAILY@1700 [facility] Last Admin: 03/15/25 15:54 Dose: 20 mg Magnesium Hydroxide (Milk Of Magnesia 30 Ml Oral.Susp) 30 ml PO DAILY PRN PRN Reason: Constipation Multivitamins/Vitamin C (Multivitamin Tablet) 1 tab PO DAILY [facility] Last Admin: 03/15/25 09:09 Dose: 1 tab Nicotine (Nicotine 21 Mg Patch.Td24) 21 mg TRANSDERMA DAILY PRN PRN Reason: nicotine craving Nicotine Polacrilex (Nicotine Polacrilex 2 Mg Gum) 2 mg BUCCAL Q2H PRN PRN Reason: Nicotine Cravings Pt Own (Suvorexant [ (Belsomra] 15 Mg)) 15 mg PO BEDTIME [facility] Last Admin: 03/14/25 21:10 Dose: Not Given Olanzapine (Olanzapine 5 Mg Tablet) 5 mg PO BID PRN PRN Reason: agitation Last Admin: 03/11/25 20:47 Dose: 5 mg Propranolol HCl (Propranolol Hcl 10 Mg Tablet) 10 mg PO TID [facility]; Protocol Last Admin: 03/15/25 15:53 Dose: 10 mg Thiamine HCl (Thiamine Hcl 100 Mg Tablet) 100 mg PO BID [facility] Last Admin: 03/15/25 09:08 Dose: 100 mg Trazodone HCl (Trazodone Hcl 50 Mg Tablet) 50 mg PO BEDTIME MRX1 PRN PRN Reason: Insomnia Last Admin: 03/14/25 21:05 Dose: 50 mg Allergies Allergies Allergy/AdvReac Type Severity Reaction Status Date / Time risperidone (From Risperdal) Allergy Intermediate UNKNOWN Verified 03/06/25 11:22 Sulfa (Sulfonamide Allergy Intermediate rash Verified 03/06/25 11:22 Antibiotics) From BENADRYL Allergy Intermediate DIZZY Uncoded 11/08/24 13:12 Assessment & Plan Assessment & Plan (1) POONAM (generalized anxiety disorder): Status: Acute Code(s): F41.1 - Generalized anxiety disorder (2) Major depressive disorder, recurrent severe without psychotic features: Status: Acute Code(s): F33.2 - Major depressive disorder, recurrent severe without psychotic features Plan Mrs. Rodrigues is 74 year-old woman with hx of MDD, cognitive impairments who was brought by due to difficulty sleeping, affecting her mood including depression and anxious mood. She also reports poor appetite. This is her usual presentation focused on lack of sleep, feeling anxious and depressed. No SI/HI. She had home sleep study back in 05/2024 which was suggestive of needing oxygen at night and possible sleep apnea but patient had declined o2 at night. PLAN 03/08 continue gabapentin 100mg po qhs. add iron with vit c. 03/09 increase night time dose of gabapentin to 200mg po qhs. will add morning dose of gabapentin 100mg po daily. continue latuda- but will change to dinner time. Will also change aricept to night time. 03/10 d/c clonazepam, ativan 1mg po qhs. added iron and vit c for low iron. 03/13 lower doxepin to 25mg po qhs, start clomipramine 25mg po qhs. continue gabapentin. lower latuda to 20mg po at dinner time. 03/14 continue tx. 03/15 increase clomipramine to 50mg po qhs. decrease cogenting for akathisia as clomipramine has anticholinergic properties. continue latuda. Reason for continued inpatient stay Substantial Risk for: inability to function Time Spent With Patient Time: Total time managing care of this patient today ____ minutes.
[2025-03-15 20:00] VITALS: BP 116/57; PULSE 66; RESP 20; TEMP 36.3; O2SAT 95
[2025-03-16 08:00] VITALS: BP 114/61; PULSE 70; RESP 15; TEMP 36.8; O2SAT 93
[2025-03-16 09:12] VITALS: BP 114/61; PULSE 73
[2025-03-16] MEDS: Calcium + Vitamin D 250 MG TABLET PO ×2 (09:14→20:25)
[2025-03-16] MEDS: Ferrous Sulfate 324 MG TABLET.DR PO (09:14)
[2025-03-16 13:43] VITALS: BMI 26.0
[2025-03-16 15:30] VITALS: BP 113/62; PULSE 69
[2025-03-16 20:00] VITALS: BP 118/68; PULSE 68; RESP 16; TEMP 36.6; O2SAT 95
--- NOTE | 2025-03-16 21:58 | HO.PSYCHPN ---
Subjective Subjective Date of Service: 03/16/25 Reason For Visit: Decom, not sleeping. Subjective Notes: Conditional Voluntary Interim History: Patient seen psychiatric follow-up case reviewed in treatment planning. Patient's case was reviewed with the [facility] encourage day treatment. Patient has been out of her room or more participatory sleep improved Mental Status Exam Mental Status Exam Narrative: Appearance: wearing hospital gown, fair hygiene, in NAD Behavior: cooperative and friendly Psychomotor: no agitation or retardation, Speech: slightly fast, normal rate/rhythm/volume, spontaneous TP: linear TC: Mood: I am still somewhat depressed Affect: congruent SI: denies HI: denies VH/AH: none Delusions: none Insight/judgment: fair x 2. Memory/cog: alert, oriented to month, place, situation. Diagnostics Vital Signs (24Hr): Vital Signs - 24 hr 03/16/25 08:00 03/16/25 09:12 03/16/25 15:30 Temperature 98.2 F Pulse Rate 70 73 69 Respiratory Rate 15 Blood Pressure 114/61 114/61 113/62 Pulse Oximetry 93 Oxygen Delivery Method Room Air BMI result Body Mass Index 26.0 Labs 03/06/25 11:38 03/07/25 07:33 Medications Medications Current Medications Acetaminophen (Acetaminophen 325 Mg Tablet) 650 mg PO Q6H PRN PRN Reason: Headache/Pain, Scale 1-10 Last Admin: 03/08/25 11:35 Dose: 650 mg Al Hydroxide/Mg Hydroxide (Magnesium Hydrox/Alum Hydrox 30 Ml Oral.Susp) 30 ml PO Q6H PRN PRN Reason: Heartburn/Nausea Ascorbic Acid (Ascorbic Acid 500 Mg Tablet) 500 mg PO DAILY [facility] Last Admin: 03/16/25 09:14 Dose: 500 mg Atorvastatin Calcium (Atorvastatin Calcium 20 Mg Tablet) 20 mg PO DAILY [facility] Last Admin: 03/16/25 09:14 Dose: 20 mg Benztropine Mesylate (Benztropine Mesylate 0.5 Mg Tablet) 0.5 mg PO BID [facility] Last Admin: 03/16/25 20:25 Dose: 0.5 mg Calcium Carbonate/Cholecalciferol (Calcium + Vitamin D 250 Mg Tablet) 250 mg PO BID [facility] Last Admin: 03/16/25 20:25 Dose: 250 mg Clomipramine HCl (Clomipramine Hcl 25 Mg Capsule) 50 mg PO BEDTIME [facility] Last Admin: 03/16/25 20:24 Dose: 50 mg Donepezil HCl (Donepezil Hcl 10 Mg Tablet) 10 mg PO BEDTIME [facility] Last Admin: 03/16/25 20:25 Dose: 10 mg Ferrous Sulfate (Ferrous Sulfate 324 Mg Tablet.Dr) 324 mg PO DAILY [facility] Last Admin: 03/16/25 09:14 Dose: 324 mg Folic Acid (Folic Acid 1 Mg Tablet) 1 mg PO DAILY [facility] Last Admin: 03/16/25 09:14 Dose: 1 mg Gabapentin (Gabapentin 100 Mg Capsule) 200 mg PO BEDTIME [facility] Last Admin: 03/16/25 20:25 Dose: 200 mg Gabapentin (Gabapentin 100 Mg Capsule) 100 mg PO DAILY [facility] Last Admin: 03/16/25 09:14 Dose: 100 mg Hydroxyzine HCl (Hydroxyzine Hcl 25 Mg Tablet) 25 mg PO BEDTIME PRN PRN Reason: Anxiety Last Admin: 03/16/25 20:24 Dose: 25 mg Lorazepam (Lorazepam 1 Mg Tablet) 1 mg PO BEDTIME [facility] Last Admin: 03/16/25 20:24 Dose: 1 mg Lurasidone HCl (Lurasidone Hcl 20 Mg Tablet) 20 mg PO DAILY@1700 [facility] Last Admin: 03/16/25 18:36 Dose: 20 mg Magnesium Hydroxide (Milk Of Magnesia 30 Ml Oral.Susp) 30 ml PO DAILY PRN PRN Reason: Constipation Multivitamins/Vitamin C (Multivitamin Tablet) 1 tab PO DAILY [facility] Last Admin: 03/16/25 09:14 Dose: 1 tab Nicotine (Nicotine 21 Mg Patch.Td24) 21 mg TRANSDERMA DAILY PRN PRN Reason: nicotine craving Nicotine Polacrilex (Nicotine Polacrilex 2 Mg Gum) 2 mg BUCCAL Q2H PRN PRN Reason: Nicotine Cravings Pt Own (Suvorexant [ (Belsomra] 15 Mg)) 15 mg PO BEDTIME [facility] Last Admin: 03/16/25 20:26 Dose: Not Given Olanzapine (Olanzapine 5 Mg Tablet) 5 mg PO BID PRN PRN Reason: agitation Last Admin: 03/11/25 20:47 Dose: 5 mg Propranolol HCl (Propranolol Hcl 10 Mg Tablet) 10 mg PO TID [facility]; Protocol Last Admin: 03/16/25 20:25 Dose: 10 mg Thiamine HCl (Thiamine Hcl 100 Mg Tablet) 100 mg PO BID [facility] Last Admin: 03/16/25 20:25 Dose: 100 mg Trazodone HCl (Trazodone Hcl 50 Mg Tablet) 50 mg PO BEDTIME MRX1 PRN PRN Reason: Insomnia Last Admin: 03/16/25 20:24 Dose: 50 mg Allergies Allergies Allergy/AdvReac Type Severity Reaction Status Date / Time risperidone (From Risperdal) Allergy Intermediate UNKNOWN Verified 03/06/25 11:22 Sulfa (Sulfonamide Allergy Intermediate rash Verified 03/06/25 11:22 Antibiotics) From BENADRYL Allergy Intermediate DIZZY Uncoded 11/08/24 13:12 Assessment & Plan Assessment & Plan (1) POONAM (generalized anxiety disorder): Status: Acute Code(s): F41.1 - Generalized anxiety disorder (2) Major depressive disorder, recurrent severe without psychotic features: Status: Acute Code(s): F33.2 - Major depressive disorder, recurrent severe without psychotic features Plan Mrs. Rodrigues is 74 year-old woman with hx of MDD, cognitive impairments who was brought by due to difficulty sleeping, affecting her mood including depression and anxious mood. She also reports poor appetite. This is her usual presentation focused on lack of sleep, feeling anxious and depressed. No SI/HI. She had home sleep study back in 05/2024 which was suggestive of needing oxygen at night and possible sleep apnea but patient had declined o2 at night. PLAN 03/08 continue gabapentin 100mg po qhs. add iron with vit c. 03/09 increase night time dose of gabapentin to 200mg po qhs. will add morning dose of gabapentin 100mg po daily. continue latuda- but will change to dinner time. Will also change aricept to night time. 03/10 d/c clonazepam, ativan 1mg po qhs. added iron and vit c for low iron. 03/13 lower doxepin to 25mg po qhs, start clomipramine 25mg po qhs. continue gabapentin. lower latuda to 20mg po at dinner time. 03/14 continue tx. 03/16/2025 Patient referred to day treatment continue Anafranil Latuda Extensive discussion the patient regarding ways to manage her feelings states as an outpatient mobilizing herself daily basis Patient educated on: medication risk/benefits and therapeutic strategies Reason for continued inpatient stay Substantial Risk for: inability to function and rapid decompensation Time Spent With Patient Time: Total time managing care of this patient today _25___ minutes.
[2025-03-17 08:00] VITALS: BP 113/67; PULSE 72; RESP 14; TEMP 36.2; O2SAT 96
[2025-03-17] MEDS: Ferrous Sulfate 324 MG TABLET.DR PO (09:14)
[2025-03-17] MEDS: Calcium + Vitamin D 250 MG TABLET PO ×2 (09:15→20:57)
--- NOTE | 2025-03-17 09:43 | HO.PSYCHPN ---
Subjective Subjective Date of Service: 03/17/25 Reason For Visit: Decom, not sleeping. Subjective Notes: Conditional Voluntary Interim History: Pt continues to report that she is sleeping and that her mood is improving. She has been visible on the unit, social with peers and staff. denies any concerns. reports mild dry mouth. She had meeting yesterday- plan to d/c Thursday and continue care with [facility]. Review of Systems Review of Systems Unremarkable Mental Status Exam Mental Status Exam Narrative: Appearance: wearing hospital gown, fair hygiene, in NAD Behavior: cooperative and friendly Psychomotor: no agitation or retardation, Speech: slightly fast, normal rate/rhythm/volume, spontaneous TP: linear TC: Mood: I am still somewhat depressed Affect: congruent SI: denies HI: denies VH/AH: none Delusions: none Insight/judgment: fair x 2. Memory/cog: alert, oriented to month, place, situation. Diagnostics Vital Signs (24Hr): Vital Signs - 24 hr 03/16/25 15:30 03/16/25 20:00 03/17/25 08:00 Temperature 98 F 97.2 F Pulse Rate 69 68 72 Respiratory Rate 16 14 Blood Pressure 113/62 118/68 113/67 Pulse Oximetry 95 96 Oxygen Delivery Method Room Air Room Air BMI result Body Mass Index 26.0 Labs 03/06/25 11:38 03/07/25 07:33 Medications Medications Current Medications Acetaminophen (Acetaminophen 325 Mg Tablet) 650 mg PO Q6H PRN PRN Reason: Headache/Pain, Scale 1-10 Last Admin: 03/08/25 11:35 Dose: 650 mg Al Hydroxide/Mg Hydroxide (Magnesium Hydrox/Alum Hydrox 30 Ml Oral.Susp) 30 ml PO Q6H PRN PRN Reason: Heartburn/Nausea Ascorbic Acid (Ascorbic Acid 500 Mg Tablet) 500 mg PO DAILY [facility] Last Admin: 03/17/25 09:15 Dose: 500 mg Atorvastatin Calcium (Atorvastatin Calcium 20 Mg Tablet) 20 mg PO DAILY [facility] Last Admin: 03/17/25 09:14 Dose: 20 mg Benztropine Mesylate (Benztropine Mesylate 0.5 Mg Tablet) 0.5 mg PO BID [facility] Last Admin: 03/17/25 09:15 Dose: 0.5 mg Calcium Carbonate/Cholecalciferol (Calcium + Vitamin D 250 Mg Tablet) 250 mg PO BID [facility] Last Admin: 03/17/25 09:15 Dose: 250 mg Clomipramine HCl (Clomipramine Hcl 25 Mg Capsule) 50 mg PO BEDTIME [facility] Last Admin: 03/16/25 20:24 Dose: 50 mg Donepezil HCl (Donepezil Hcl 10 Mg Tablet) 10 mg PO BEDTIME [facility] Last Admin: 03/16/25 20:25 Dose: 10 mg Ferrous Sulfate (Ferrous Sulfate 324 Mg Tablet.Dr) 324 mg PO DAILY [facility] Last Admin: 03/17/25 09:14 Dose: 324 mg Folic Acid (Folic Acid 1 Mg Tablet) 1 mg PO DAILY [facility] Last Admin: 03/17/25 09:14 Dose: 1 mg Gabapentin (Gabapentin 100 Mg Capsule) 200 mg PO BEDTIME [facility] Last Admin: 03/16/25 20:25 Dose: 200 mg Gabapentin (Gabapentin 100 Mg Capsule) 100 mg PO DAILY [facility] Last Admin: 03/17/25 09:15 Dose: 100 mg Hydroxyzine HCl (Hydroxyzine Hcl 25 Mg Tablet) 25 mg PO BEDTIME PRN PRN Reason: Anxiety Last Admin: 03/16/25 20:24 Dose: 25 mg Lorazepam (Lorazepam 1 Mg Tablet) 1 mg PO BEDTIME [facility] Last Admin: 03/16/25 20:24 Dose: 1 mg Lurasidone HCl (Lurasidone Hcl 20 Mg Tablet) 20 mg PO DAILY@1700 [facility] Last Admin: 03/16/25 18:36 Dose: 20 mg Magnesium Hydroxide (Milk Of Magnesia 30 Ml Oral.Susp) 30 ml PO DAILY PRN PRN Reason: Constipation Multivitamins/Vitamin C (Multivitamin Tablet) 1 tab PO DAILY [facility] Last Admin: 03/17/25 09:14 Dose: 1 tab Nicotine (Nicotine 21 Mg Patch.Td24) 21 mg TRANSDERMA DAILY PRN PRN Reason: nicotine craving Nicotine Polacrilex (Nicotine Polacrilex 2 Mg Gum) 2 mg BUCCAL Q2H PRN PRN Reason: Nicotine Cravings Pt Own (Suvorexant [ (Belsomra] 15 Mg)) 15 mg PO BEDTIME [facility] Last Admin: 03/16/25 20:26 Dose: Not Given Olanzapine (Olanzapine 5 Mg Tablet) 5 mg PO BID PRN PRN Reason: agitation Last Admin: 03/11/25 20:47 Dose: 5 mg Propranolol HCl (Propranolol Hcl 10 Mg Tablet) 10 mg PO TID [facility]; Protocol Last Admin: 03/17/25 09:14 Dose: 10 mg Thiamine HCl (Thiamine Hcl 100 Mg Tablet) 100 mg PO BID [facility] Last Admin: 03/17/25 09:14 Dose: 100 mg Trazodone HCl (Trazodone Hcl 50 Mg Tablet) 50 mg PO BEDTIME MRX1 PRN PRN Reason: Insomnia Last Admin: 03/16/25 20:24 Dose: 50 mg Allergies Allergies Allergy/AdvReac Type Severity Reaction Status Date / Time risperidone (From Risperdal) Allergy Intermediate UNKNOWN Verified 03/06/25 11:22 Sulfa (Sulfonamide Allergy Intermediate rash Verified 03/06/25 11:22 Antibiotics) From BENADRYL Allergy Intermediate DIZZY Uncoded 11/08/24 13:12 Assessment & Plan Assessment & Plan (1) POONAM (generalized anxiety disorder): Status: Acute Code(s): F41.1 - Generalized anxiety disorder (2) Major depressive disorder, recurrent severe without psychotic features: Status: Acute Code(s): F33.2 - Major depressive disorder, recurrent severe without psychotic features Plan Mrs. Rodrigues is 74 year-old woman with hx of MDD, cognitive impairments who was brought by due to difficulty sleeping, affecting her mood including depression and anxious mood. She also reports poor appetite. This is her usual presentation focused on lack of sleep, feeling anxious and depressed. No SI/HI. She had home sleep study back in 05/2024 which was suggestive of needing oxygen at night and possible sleep apnea but patient had declined o2 at night. PLAN 03/08 continue gabapentin 100mg po qhs. add iron with vit c. 03/09 increase night time dose of gabapentin to 200mg po qhs. will add morning dose of gabapentin 100mg po daily. continue latuda- but will change to dinner time. Will also change aricept to night time. 03/10 d/c clonazepam, ativan 1mg po qhs. added iron and vit c for low iron. 03/13 lower doxepin to 25mg po qhs, start clomipramine 25mg po qhs. continue gabapentin. lower latuda to 20mg po at dinner time. 03/14 continue tx. 03/15 increase clomipramine to 50mg po qhs. decrease cogenting for akathisia as clomipramine has anticholinergic properties. continue latuda. 03/17 continue tx. d/c latuda. continue clomipramine 50mg po qhs. we can try to d/c cogentin and see if akathisia does not worsen. Reason for continued inpatient stay Substantial Risk for: inability to function Time Spent With Patient Time: Total time managing care of this patient today ____ minutes.
[2025-03-17 15:34] VITALS: BP 104/62
[2025-03-17 20:00] VITALS: BP 105/62; PULSE 62; RESP 16; TEMP 36.6; O2SAT 94
[2025-03-18 08:20] VITALS: BP 107/55; PULSE 79; RESP 14; TEMP 36.2; O2SAT 94
[2025-03-18] MEDS: Calcium + Vitamin D 250 MG TABLET PO ×2 (08:21→21:46)
[2025-03-18] MEDS: Ferrous Sulfate 324 MG TABLET.DR PO (08:21)
[2025-03-18 15:52] VITALS: BP 105/58; PULSE 75
[2025-03-18 20:00] VITALS: BP 103/60; PULSE 65; RESP 16; TEMP 36.3; O2SAT 93
[2025-03-19 08:02] VITALS: BP 89/54; PULSE 82; RESP 14; TEMP 36.3; O2SAT 97
[2025-03-19] MEDS: Ferrous Sulfate 324 MG TABLET.DR PO (08:04)
[2025-03-19] MEDS: Calcium + Vitamin D 250 MG TABLET PO ×2 (08:04→20:41)
--- NOTE | 2025-03-19 12:47 | HO.PSYCHPN ---
Subjective Subjective Date of Service: 03/19/25 Reason For Visit: Decom, not sleeping. Subjective Notes: Conditional Voluntary Interim History: Pt continues to report that she is sleeping and that her mood is improving. She has been stable and is doing well and is looking forward to discharge next Thursday. Eating and sleeping adequately. No complaints or side effects. No SI. No changes were made today Review of Systems Review of Systems Yes all other systems are reviewed and are negative Mental Status Exam Mental Status Exam Narrative: In today's visit she is alert, pleasant and interactive. Affect is appropriate and varied. No acute signs of psychosis. No gross cognitive deficits. No SI. Diagnostics Vital Signs (24Hr): Vital Signs - 24 hr 03/18/25 15:52 03/18/25 20:00 03/19/25 08:02 Temperature 97.3 F 97.3 F Pulse Rate 75 65 82 Respiratory Rate 16 14 Blood Pressure 105/58 L 103/60 89/54 L Pulse Oximetry 93 97 Oxygen Delivery Method Room Air Room Air BMI result Body Mass Index 26.0 Labs 03/06/25 11:38 03/07/25 07:33 Medications Medications Current Medications Acetaminophen (Acetaminophen 325 Mg Tablet) 650 mg PO Q6H PRN PRN Reason: Headache/Pain, Scale 1-10 Last Admin: 03/08/25 11:35 Dose: 650 mg Al Hydroxide/Mg Hydroxide (Magnesium Hydrox/Alum Hydrox 30 Ml Oral.Susp) 30 ml PO Q6H PRN PRN Reason: Heartburn/Nausea Ascorbic Acid (Ascorbic Acid 500 Mg Tablet) 500 mg PO DAILY [facility] Last Admin: 03/19/25 08:04 Dose: 500 mg Atorvastatin Calcium (Atorvastatin Calcium 20 Mg Tablet) 20 mg PO DAILY [facility] Last Admin: 03/19/25 08:04 Dose: 20 mg Calcium Carbonate/Cholecalciferol (Calcium + Vitamin D 250 Mg Tablet) 250 mg PO BID [facility] Last Admin: 03/19/25 08:04 Dose: 250 mg Clomipramine HCl (Clomipramine Hcl 25 Mg Capsule) 50 mg PO BEDTIME [facility] Last Admin: 03/18/25 21:46 Dose: 50 mg Donepezil HCl (Donepezil Hcl 10 Mg Tablet) 10 mg PO BEDTIME [facility] Last Admin: 03/18/25 21:46 Dose: 10 mg Ferrous Sulfate (Ferrous Sulfate 324 Mg Tablet.) 324 mg PO DAILY [facility] Last Admin: 03/19/25 08:04 Dose: 324 mg Folic Acid (Folic Acid 1 Mg Tablet) 1 mg PO DAILY [facility] Last Admin: 03/19/25 08:04 Dose: 1 mg Gabapentin (Gabapentin 100 Mg Capsule) 200 mg PO BEDTIME [facility] Last Admin: 03/18/25 21:42 Dose: 200 mg Gabapentin (Gabapentin 100 Mg Capsule) 100 mg PO DAILY [facility] Last Admin: 03/19/25 08:04 Dose: 100 mg Hydroxyzine HCl (Hydroxyzine Hcl 25 Mg Tablet) 25 mg PO BEDTIME PRN PRN Reason: Anxiety Last Admin: 03/18/25 21:42 Dose: 25 mg Magnesium Hydroxide (Milk Of Magnesia 30 Ml Oral.Susp) 30 ml PO DAILY PRN PRN Reason: Constipation Multivitamins/Vitamin C (Multivitamin Tablet) 1 tab PO DAILY [facility] Last Admin: 03/19/25 08:04 Dose: 1 tab Nicotine (Nicotine 21 Mg Patch.Td24) 21 mg TRANSDERMA DAILY PRN PRN Reason: nicotine craving Nicotine Polacrilex (Nicotine Polacrilex 2 Mg Gum) 2 mg BUCCAL Q2H PRN PRN Reason: Nicotine Cravings Pt Own (Suvorexant [ (Belsomra] 15 Mg)) 15 mg PO BEDTIME [facility] Last Admin: 03/18/25 19:15 Dose: Not Given Olanzapine (Olanzapine 5 Mg Tablet) 5 mg PO BID PRN PRN Reason: agitation Last Admin: 03/11/25 20:47 Dose: 5 mg Propranolol HCl (Propranolol Hcl 10 Mg Tablet) 10 mg PO TID [facility]; Protocol Last Admin: 03/19/25 10:06 Dose: Not Given Thiamine HCl (Thiamine Hcl 100 Mg Tablet) 100 mg PO BID [facility] Last Admin: 03/19/25 08:04 Dose: 100 mg Trazodone HCl (Trazodone Hcl 50 Mg Tablet) 50 mg PO BEDTIME MRX1 PRN PRN Reason: Insomnia Last Admin: 03/18/25 21:46 Dose: 50 mg Allergies Allergies Allergy/AdvReac Type Severity Reaction Status Date / Time risperidone (From Risperdal) Allergy Intermediate UNKNOWN Verified 03/06/25 11:22 Sulfa (Sulfonamide Allergy Intermediate rash Verified 03/06/25 11:22 Antibiotics) From BENADRYL Allergy Intermediate DIZZY Uncoded 11/08/24 13:12 Assessment & Plan Assessment & Plan (1) POONAM (generalized anxiety disorder): Status: Acute Code(s): F41.1 - Generalized anxiety disorder (2) Major depressive disorder, recurrent severe without psychotic features: Status: Acute Code(s): F33.2 - Major depressive disorder, recurrent severe without psychotic features Plan Mrs. Rodrigues is 74 year-old woman with hx of MDD, cognitive impairments who was brought by due to difficulty sleeping, affecting her mood including depression and anxious mood. She also reports poor appetite. This is her usual presentation focused on lack of sleep, feeling anxious and depressed. No SI/HI. She had home sleep study back in 05/2024 which was suggestive of needing oxygen at night and possible sleep apnea but patient had declined o2 at night. PLAN 03/08 continue gabapentin 100mg po qhs. add iron with vit c. 03/09 increase night time dose of gabapentin to 200mg po qhs. will add morning dose of gabapentin 100mg po daily. continue latuda- but will change to dinner time. Will also change aricept to night time. 03/10 d/c clonazepam, ativan 1mg po qhs. added iron and vit c for low iron. 03/13 lower doxepin to 25mg po qhs, start clomipramine 25mg po qhs. continue gabapentin. lower latuda to 20mg po at dinner time. 03/14 continue tx. 03/15 increase clomipramine to 50mg po qhs. decrease cogenting for akathisia as clomipramine has anticholinergic properties. continue latuda. 03/17 continue tx. d/c latuda. continue clomipramine 50mg po qhs. we can try to d/c cogentin and see if akathisia does not worsen. 03/19: Continue current regimen and plans Reason for continued inpatient stay Substantial Risk for: med/psych decompensation Time Spent With Patient Time: Total time managing care of this patient today ____ minutes.
[2025-03-19 16:47] VITALS: BP 120/70; PULSE 83
[2025-03-19 20:00] VITALS: BP 117/68; PULSE 70; RESP 18; TEMP 36.4; O2SAT 96
[2025-03-20 08:00] VITALS: BP 125/83; PULSE 73; RESP 18; TEMP 36.2; O2SAT 97
[2025-03-20] MEDS: Calcium + Vitamin D 250 MG TABLET PO ×2 (09:15→21:15)
[2025-03-20 09:16] VITALS: BP 125/83; PULSE 73
[2025-03-20] MEDS: Ferrous Sulfate 324 MG TABLET.DR PO (09:16)
--- NOTE | 2025-03-20 10:28 | HO.PSYCHPN ---
Subjective Subjective Date of Service: 03/20/25 Reason For Visit: Decom, not sleeping. Subjective Notes: Conditional Voluntary Interim History: Pt continues to report that she is sleeping and that her mood is improving. She states that she has not been sleeping though observed otherwise. She is looking forward to discharge tomorrow. No behavioral issues. No other complaints. No changes were made today. Review of Systems Review of Systems Yes all other systems are reviewed and are negative Mental Status Exam Mental Status Exam Narrative: In today's visit she is alert, pleasant and interactive. Affect is appropriate and varied. No acute signs of psychosis. No gross cognitive deficits. No SI. Diagnostics Vital Signs (24Hr): Vital Signs - 24 hr 03/19/25 16:47 03/19/25 20:00 03/20/25 09:16 Temperature 97.5 F Pulse Rate 83 70 73 Respiratory Rate 18 Blood Pressure 120/70 117/68 125/83 Pulse Oximetry 96 Oxygen Delivery Method Room Air BMI result Body Mass Index 26.0 Labs 03/06/25 11:38 03/07/25 07:33 Medications Medications Current Medications Acetaminophen (Acetaminophen 325 Mg Tablet) 650 mg PO Q6H PRN PRN Reason: Headache/Pain, Scale 1-10 Last Admin: 03/08/25 11:35 Dose: 650 mg Al Hydroxide/Mg Hydroxide (Magnesium Hydrox/Alum Hydrox 30 Ml Oral.Susp) 30 ml PO Q6H PRN PRN Reason: Heartburn/Nausea Ascorbic Acid (Ascorbic Acid 500 Mg Tablet) 500 mg PO DAILY [facility] Last Admin: 03/20/25 09:15 Dose: 500 mg Atorvastatin Calcium (Atorvastatin Calcium 20 Mg Tablet) 20 mg PO DAILY [facility] Last Admin: 03/20/25 09:15 Dose: 20 mg Calcium Carbonate/Cholecalciferol (Calcium + Vitamin D 250 Mg Tablet) 250 mg PO BID [facility] Last Admin: 03/20/25 09:15 Dose: 250 mg Clomipramine HCl (Clomipramine Hcl 25 Mg Capsule) 50 mg PO BEDTIME [facility] Last Admin: 03/19/25 20:40 Dose: 50 mg Donepezil HCl (Donepezil Hcl 10 Mg Tablet) 10 mg PO BEDTIME [facility] Last Admin: 03/19/25 20:41 Dose: 10 mg Ferrous Sulfate (Ferrous Sulfate 324 Mg Tablet.) 324 mg PO DAILY [facility] Last Admin: 03/20/25 09:16 Dose: 324 mg Folic Acid (Folic Acid 1 Mg Tablet) 1 mg PO DAILY [facility] Last Admin: 03/20/25 09:16 Dose: 1 mg Gabapentin (Gabapentin 100 Mg Capsule) 200 mg PO BEDTIME [facility] Last Admin: 03/19/25 20:41 Dose: 200 mg Gabapentin (Gabapentin 100 Mg Capsule) 100 mg PO DAILY [facility] Last Admin: 03/20/25 09:15 Dose: 100 mg Hydroxyzine HCl (Hydroxyzine Hcl 25 Mg Tablet) 25 mg PO BEDTIME PRN PRN Reason: Anxiety Last Admin: 03/18/25 21:42 Dose: 25 mg Lorazepam (Lorazepam 1 Mg Tablet) 1 mg PO BEDTIME [facility] Last Admin: 03/19/25 20:42 Dose: 1 mg Magnesium Hydroxide (Milk Of Magnesia 30 Ml Oral.Susp) 30 ml PO DAILY PRN PRN Reason: Constipation Multivitamins/Vitamin C (Multivitamin Tablet) 1 tab PO DAILY [facility] Last Admin: 03/20/25 09:15 Dose: 1 tab Nicotine (Nicotine 21 Mg Patch.Td24) 21 mg TRANSDERMA DAILY PRN PRN Reason: nicotine craving Nicotine Polacrilex (Nicotine Polacrilex 2 Mg Gum) 2 mg BUCCAL Q2H PRN PRN Reason: Nicotine Cravings Pt Own (Suvorexant [ (Belsomra] 15 Mg)) 15 mg PO BEDTIME [facility] Last Admin: 03/19/25 23:22 Dose: Not Given Olanzapine (Olanzapine 5 Mg Tablet) 5 mg PO BID PRN PRN Reason: agitation Last Admin: 03/11/25 20:47 Dose: 5 mg Propranolol HCl (Propranolol Hcl 10 Mg Tablet) 10 mg PO TID [facility]; Protocol Last Admin: 03/20/25 09:16 Dose: 10 mg Thiamine HCl (Thiamine Hcl 100 Mg Tablet) 100 mg PO BID [facility] Last Admin: 03/20/25 09:15 Dose: 100 mg Trazodone HCl (Trazodone Hcl 50 Mg Tablet) 50 mg PO BEDTIME MRX1 PRN PRN Reason: Insomnia Last Admin: 03/18/25 21:46 Dose: 50 mg Allergies Allergies Allergy/AdvReac Type Severity Reaction Status Date / Time risperidone (From Risperdal) Allergy Intermediate UNKNOWN Verified 03/06/25 11:22 Sulfa (Sulfonamide Allergy Intermediate rash Verified 03/06/25 11:22 Antibiotics) From BENADRYL Allergy Intermediate DIZZY Uncoded 11/08/24 13:12 Assessment & Plan Assessment & Plan (1) POONAM (generalized anxiety disorder): Status: Acute Code(s): F41.1 - Generalized anxiety disorder (2) Major depressive disorder, recurrent severe without psychotic features: Status: Acute Code(s): F33.2 - Major depressive disorder, recurrent severe without psychotic features Plan Mrs. Rodrigues is 74 year-old woman with hx of MDD, cognitive impairments who was brought by due to difficulty sleeping, affecting her mood including depression and anxious mood. She also reports poor appetite. This is her usual presentation focused on lack of sleep, feeling anxious and depressed. No SI/HI. She had home sleep study back in 05/2024 which was suggestive of needing oxygen at night and possible sleep apnea but patient had declined o2 at night. PLAN 03/08 continue gabapentin 100mg po qhs. add iron with vit c. 03/09 increase night time dose of gabapentin to 200mg po qhs. will add morning dose of gabapentin 100mg po daily. continue latuda- but will change to dinner time. Will also change aricept to night time. 03/10 d/c clonazepam, ativan 1mg po qhs. added iron and vit c for low iron. 03/13 lower doxepin to 25mg po qhs, start clomipramine 25mg po qhs. continue gabapentin. lower latuda to 20mg po at dinner time. 03/14 continue tx. 03/15 increase clomipramine to 50mg po qhs. decrease cogenting for akathisia as clomipramine has anticholinergic properties. continue latuda. 03/17 continue tx. d/c latuda. continue clomipramine 50mg po qhs. we can try to d/c cogentin and see if akathisia does not worsen. 03/19: Continue current regimen and plans 03/20: Continue current regimen and plans. Patient educated on: medication risk/benefits Reason for continued inpatient stay Substantial Risk for: med/psych decompensation Time Spent With Patient Time: Total time managing care of this patient today ____ minutes.
[2025-03-20 15:34] VITALS: BP 119/71; PULSE 73
[2025-03-20 20:00] VITALS: BP 107/62; PULSE 70; RESP 16; TEMP 36.4; O2SAT 96
[2025-03-21] MEDS: Ferrous Sulfate 324 MG TABLET.DR PO (08:22)
[2025-03-21] MEDS: Calcium + Vitamin D 250 MG TABLET PO (08:22)
--- NOTE | 2025-03-21 08:24 | PM.PSYDC ---
DS: Providers Provider Date of Service: 03/21/25 Date of admission: 03/06/25 17:59 Date of discharge: 03/21/25 Primary care physician: Unknown Physician DS: Diagnosis Discharge Diagnosis (1) POONAM (generalized anxiety disorder): Status: Acute (2) Major depressive disorder, recurrent severe without psychotic features: Status: Acute DS: Medications Discharge Medications Home Medications: Home Medications ?Medication ?Instructions ?Recorded ?Confirmed calcium 500 mg (as 1 tab PO BID 11/08/24 03/06/25 carbonate)-vitamin D3 5 mcg (200 unit) tablet (Oyster Shell Calcium-Vitamin D3) atorvastatin 20 mg tablet 20 mg PO DAILY 03/06/25 03/06/25 benztropine 0.5 mg tablet 0.5 mg PO TID 03/06/25 03/06/25 clonazepam 1 mg tablet 0.5 mg PO BEDTIME 03/06/25 03/06/25 donepezil 10 mg tablet 10 mg PO DAILY 03/06/25 03/06/25 doxepin 10 mg capsule 30 mg PO BEDTIME 03/06/25 03/06/25 folic acid 1 mg tablet 1 mg PO DAILY 03/06/25 03/06/25 hydroxyzine HCl 25 mg tablet 25 mg PO BEDTIME PRN Anxiety 03/06/25 03/06/25 lurasidone 40 mg tablet 40 mg PO DAILY 03/06/25 03/06/25 melatonin 5 mg capsule 10 mg PO BEDTIME 03/06/25 03/06/25 mirtazapine 15 mg tablet 30 mg PO BEDTIME 03/06/25 03/06/25 multivitamin 1 tab PO DAILY 03/06/25 03/06/25 propranolol 10 mg tablet 10 mg PO TID 03/06/25 03/06/25 suvorexant 15 mg tablet (Belsomra) 15 mg PO BEDTIME PRN Insomnia 03/06/25 03/06/25 Previous Rx's ?Medication ?Instructions ?Recorded thiamine mononitrate (vit B1) 100 100 mg PO BID 30 days #60 tabs 01/18/25 mg tablet Mental Status Exam Mental Status Exam Narrative: Appearance: wearing hospital gown, fair hygiene, in NAD Behavior: cooperative and friendly Psychomotor: no agitation or retardation, Speech: slightly fast, normal rate/rhythm/volume, spontaneous TP: linear TC: Mood: I am still somewhat depressed Affect: congruent SI: denies HI: denies VH/AH: none Delusions: none Insight/judgment: fair x 2. Memory/cog: alert, oriented to month, place, situation. DS: Summary Hospital Course Hospital Course: Ms. Rodrigues is a 74 year-old woman with hx of depression, cognitive impairments who self presented to [facility] ED reporting increase difficulty sleeping which in turn she reports affect her mood, anxiety levels along with feeling very tired and without much energy. Pertinent labs completed in the ED include CBC grossly intact. CMP without electrolyte abnormalities, BUN 21, Cr 0.96, creatinine clearance 46.6. Utox is negative. UA without signs of UTI. On the unit, pt reports she has not been able to sleep for about a week. She describes her mood as terrible. She endorses depressed mood, low energy, anxious mood. She also reports decreased appetite. She denies SI/HI. No psychosis or delusions. She is not sure what medications she is on. She reports gives them to her and she takes them. Last night, per nursing, she slept trhough the night. However, pt reports she was not able to sleep. She does present as tired. Past Psychiatric History: Patient with long history of recurrent depression with multiple prior psychiatric hospitalizations. 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 no classic bipolar symptoms past depressive psychotic episodes not for a number of years Past medication trials: remeron, doxapine, vraylar, seroquel, latuda, belsomra, propanolol, clonazepam Medical Evaluation Reviewed: Yes HOSPITAL COURSE On the unit, pt was admitted on CV and placed on 15 minutes checks for safety. She present with usual presentation which is anxious mood, worried about her sleep, ruminating about sleep and how it affects her mood. Given that there was concern in terms of underlying medical condition affecting her sleep (based on prior home study that had suggested she needed O2 at night), we were able to complete oxygen assessment at night with respiratory therapy. Such study did not show that she needs O2 at night anymore. It was documented by nursing that she slept all night most of the night. She did appear tired some morning. She reported she was sleeping for several days prior to discharge except for the two night prior to discharge that she reported not sleeping well although again, nursing report is that she slept all night. We coordinated care with her long time psychiatrist, Dr. Willett. She has had multiple medication trials for sleep and depression and they have a partial benefit or effect is not sustained at times. She did seem to feel better even before major medication changes were done. She came on remeron 30mg po qhs, doxepine 30mg po qhs, latuda 40mg po daily, cogentin 0.5mg po TID for akathisia, clonazepam 1mg po qhs and belsomra. In an effort to simplified her med list, remeron was d/lexie, doxepine was gradually d/lexie and instead she was trialed on low dose of clomipramine for anxious mood/POONAM and some sleep. Clonazepam was switched to ativan 1mg po qhs. She was started on low dose gabapentin 100mg po daily and 200mg po qhs. Latuda was lowered to 20mg po daily. It can be decided if it needs to be discontinued OP. Given that clomipramine has significant anticholigernic properties, she was taken of cogentin. Her akathisia/ RLS did not worsen without it. She was visible on the unit. Social with peers. She attended assigned groups. She had low iron saturation, and although no anemia, it is also possible that she has some RLS which is more closely related with iron deficiency. She was started on iron supplements and vit c for absoption. Status at Discharge Cognitive/behavioral status at discharge: Pt with brighter affect. No SI/HI. Sleeping well, despite sometimes her subjective report. No depressed mood. social with peers. Functional status at discharge: independent ambulation Overall status at discharge: patient is back to baseline Time Spent with Patient Time attestation: Total time managing care of this patient today __35__ minutes. Time spent: Greater than 30 minutes Discharge Plan Discharge Anticipated Discharge Date/Time: 03/21/25 08:24 Patient Disposition: Home, Self-Care Discharge Diagnosis: MDD POONAM Vascular Dementia Referrals: [facility] [Other] - 1 Day Referral Note: You will be leaving today at 12:30 and be picked up by your Rahul. Your [facility] program will handle all of your discharge appointments. If you have any questions please call your clinical coordinator Shelley at [phone] Discharge Medications: New atorvastatin 20 mg Tablet 20 mg PO DAILY Qty: 30 0RF donepezil 10 mg Tablet 10 mg PO BEDTIME Qty: 30 0RF propranolol 10 mg Tablet 10 mg PO TID Qty: 90 0RF Protocol: Hold for SBP/HR < HOLD for SBP < : 90 HOLD for HR < : 60 gabapentin 100 mg Capsule 200 mg PO BEDTIME Qty: 60 0RF gabapentin 100 mg Capsule 100 mg PO DAILY Qty: 30 0RF lorazepam 1 mg Tablet 1 mg PO BEDTIME Qty: 30 0RF clomipramine 25 mg Capsule 50 mg PO BEDTIME Qty: 30 0RF ferrous sulfate 324 mg (65 mg iron) Tablet,Delayed Release (Dr/Ec) 324 mg PO DAILY Qty: 30 0RF ascorbic acid (vitamin C) [Vitamin C] 500 mg Tablet 500 mg PO DAILY Qty: 30 0RF Continued calcium carbonate-vitamin D3 [Oyster Shell Calcium-Vit D3] 500 mg-5 mcg (200 unit) tablet 1 tab PO BID folic acid 1 mg tablet 1 mg PO DAILY multivitamin Tablet 1 tab PO DAILY melatonin 5 mg capsule 10 mg PO BEDTIME Belsomra 15 mg tablet 15 mg PO BEDTIME PRN (Reason: Insomnia) thiamine mononitrate (vit B1) 100 mg tablet 100 mg PO BID 30 Days Qty: 60 3RF Discontinued atorvastatin 20 mg tablet 20 mg PO DAILY benztropine 0.5 mg tablet 0.5 mg PO TID donepezil 10 mg tablet 10 mg PO DAILY clonazepam 1 mg tablet 0.5 mg PO BEDTIME doxepin 10 mg capsule 30 mg PO BEDTIME propranolol 10 mg tablet 10 mg PO TID hydroxyzine HCl 25 mg tablet 25 mg PO BEDTIME PRN (Reason: Anxiety) mirtazapine 15 mg tablet 30 mg PO BEDTIME lurasidone 40 mg tablet 40 mg PO DAILY Discharge Orders: Discharge Order (Routine); Ordered 03/21/25 Ordered By: Judith Leo Diet: Low fat, low cholesterol Activity on Discharge: As tolerated Stand Alone Forms: Patient Portal Discharge page Print Language: Vietnamese Care Plan Goals: maintain mood No SI/HI less anxious Health Concerns: Follow up with PCP for routine care Plan of Treatment: 1. Take medications as prescribed. 2. Go to nearest ED or call 911 in event of emergency Assessment: Pt with brighter affect. No SI/HI. anxious at times about her sleep. however, documented that she is sleeping over night. No aggression towards self or others.
== END 2025-03-21 12:23 | disposition home or self-care (01) | DRG 885 ==
LOC: HO.ED 12:26 → HO.PGERI 19:07
PROVIDERS: Physician Assistant Medical; Social Worker; Admitting Provider Nurse Practitioner Psychiatric/Mental Health; Emergency Provider Emergency Medicine; Visit Provider Nurse Practitioner Psychiatric/Mental Health
DX: F33.2 Major depressive disorder, recurrent severe without psychotic features (principal); F01.54 Vascular dementia, unspecified severity, with anxiety; E78.5 Hyperlipidemia, unspecified; G47.00 Insomnia, unspecified; M47.816 Spondylosis without myelopathy or radiculopathy, lumbar region; F41.1 Generalized anxiety disorder; G25.81 Restless legs syndrome; Z20.822 Contact with and (suspected) exposure to COVID-19; Z79.899 Other long term (current) drug therapy
CPT/HCPCS: 36415; 80053; 80061; 80143; 80179; 80307; 81001; 82306; 82607; 82746; 83036; 83540; 84439; 84443; 85025; 85652; 86038; 86140; 87635; 92610; 93005; 99284; S9485

== ENCOUNTER → 2025-03-06 11:22 | Outpatient (BNV) | payer MEDICARE, SELFPAY | PROVIDERS: Admitting Provider Nurse Practitioner Psychiatric/Mental Health; Emergency Provider Emergency Medicine; Visit Provider Internal Medicine | DX: R94.31 Abnormal electrocardiogram [ECG] [EKG] (principal); Z13.6 Encounter for screening for cardiovascular disorders | CPT/HCPCS: 93010 ==

== ENCOUNTER 2025-03-06 17:59 | Outpatient (BNV) | payer MEDICARE, SELFPAY | END 2025-03-13 09:44 | PROVIDERS: Admitting Provider Nurse Practitioner Psychiatric/Mental Health; Emergency Provider Emergency Medicine; Visit Provider Internal Medicine Cardiovascular Disease | DX: Z13.6 Encounter for screening for cardiovascular disorders (principal) | CPT/HCPCS: 93010 ==

== ENCOUNTER → 2025-03-06 17:59 | Outpatient (BNV) | payer MEDICARE, SELFPAY | PROVIDERS: Admitting Provider Nurse Practitioner Psychiatric/Mental Health; Emergency Provider Emergency Medicine; Visit Provider Nurse Practitioner Family | DX: F01.54 Vascular dementia, unspecified severity, with anxiety (principal); G47.00 Insomnia, unspecified | CPT/HCPCS: 99221 ==

== ENCOUNTER → 2025-03-06 17:59 | Outpatient (BNV) | payer MEDICARE, SELFPAY | PROVIDERS: Admitting Provider Nurse Practitioner Psychiatric/Mental Health; Emergency Provider Emergency Medicine; Visit Provider Psychiatry & Neurology Psychiatry | DX: F41.1 Generalized anxiety disorder (principal); F33.2 Major depressive disorder, recurrent severe without psychotic features | CPT/HCPCS: 99232 ==

== ENCOUNTER → 2025-03-06 17:59 | Outpatient (BNV) | payer MEDICARE, SELFPAY | PROVIDERS: Admitting Provider Nurse Practitioner Psychiatric/Mental Health; Emergency Provider Emergency Medicine; Visit Provider Social Worker | DX: F33.2 Major depressive disorder, recurrent severe without psychotic features (principal); F41.1 Generalized anxiety disorder | CPT/HCPCS: 90792; 99231; 99232; 99499 ==

== ENCOUNTER 2025-03-29 13:22 | Outpatient (AMB) | payer MEDICARE, SELFPAY ==
--- NOTE | 2025-03-29 14:26 | A.OFFPSYCH_ITS ---
Intake Intake Visit Reasons: depression Allergies risperidone (From Risperdal) Allergy (Intermediate, Verified 03/06/25 11:22) UNKNOWN Sulfa (Sulfonamide Antibiotics) Allergy (Intermediate, Verified 03/06/25 11:22) rash From BENADRYL Allergy (Intermediate, Uncoded 11/08/24 13:12) DIZZY Medication List - Last Reconciled 03/29/25 by Broderick Willett MD ascorbic acid (vitamin C) (Vitamin C) 500 mg PO DAILY atorvastatin 20 mg PO DAILY calcium carbonate-vitamin D3 500 mg-5 mcg (200 unit) (Oyster Shell Calcium- Vitamin D3) 1 tab PO BID clomipramine 25 mg PO BEDTIME 30 days donepezil 10 mg PO BEDTIME ferrous sulfate 324 mg PO DAILY folic acid 1 mg PO DAILY gabapentin 100 mg PO DAILY gabapentin 300 mg (3 x 100 mg) PO BEDTIME lorazepam 1 mg PO BEDTIME lorazepam 0.5 mg PO DAILY 30 days melatonin 10 mg PO BEDTIME multivitamin 1 tab PO DAILY olanzapine 2.5 mg PO BID propranolol 10 mg See Protocol PO TID suvorexant (Belsomra) 15 mg PO BEDTIME PRN thiamine mononitrate (vit B1) 100 mg PO BID 30 days HPI- Psychiatric Chief Complaint: depression HPI Narrative: Patient seen psychiatric follow-up with her . Patient continues to complain of lack of sleep she has not yet participated in adult day health are programming through the [facility] program. Patient's mood has been anxious and dysphoric denies any active self-harm denies hallucinations. Patient denies restlessness or movement at night interfering with her sleep although displays involuntary movements during the day Past Psychiatric History: Patient with long history of recurrent depression with multiple prior psychiatric hospitalizations. 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 no classic bipolar symptoms past depressive psychotic episodes not for a number of years Past medication trials: remeron, doxapine, vraylar, seroquel, latuda, belsomra, propanolol, clonazepam Mental Status Exam Mental Status Exam Narrative: Appearance: Casually dressed anxious looking constant motion of feet and rocking Behavior: cooperative sad looking Psychomotor: Restless easily agitated Speech: slightly fast, normal rate/rhythm/volume, spontaneous TP: linear concrete perseverative TC: Focused over and over again on inability to sleep Mood: I am depressed Affect: congruent SI: denies HI: denies VH/AH: none Delusions: none Insight/judgment: fair x 2. Memory/cog: alert, oriented to month, place, situation. Assessment and Plan Assessment & Plan (1) POONAM (generalized anxiety disorder): Status: Acute Code(s): F41.1 - Generalized anxiety disorder (2) Major depressive disorder, recurrent severe without psychotic features: Status: Acute Code(s): F33.2 - Major depressive disorder, recurrent severe without psychotic features (3) Vascular dementia with anxiety: Status: Acute Code(s): F01.54 - Vascular dementia, unspecified severity, with anxiety (4) Akathisia: Status: Acute Code(s): G25.71 - Drug induced akathisia Plan Lower clomipramine to 25 mg at bedtime increase clomipramine at 50 may be causing restlessness and agitation increase gabapentin to 300 mg patient may benefit from referral for psychiatric management to her clinic in [place] where she is now getting her medical care question combination of akathisia and question tardive dyskinesia Medications: New lorazepam 0.5 mg PO DAILY 30 tabs 1RF anxiety 30 days olanzapine 2.5 mg PO BID 60 tabs 1RF lorazepam 0.5 mg PO DAILY PRN 30 tabs 0RF anxiety 30 days Changed From clomipramine 50 mg (2 x 25 mg) PO BEDTIME 30 caps 0RF To clomipramine 25 mg PO BEDTIME 30 caps 1RF 30 days From gabapentin 200 mg (2 x 100 mg) PO BEDTIME 60 caps 0RF To gabapentin 300 mg (3 x 100 mg) PO BEDTIME 90 caps 1RF Refilled donepezil 10 mg PO BEDTIME 30 tabs 1RF Counseling and coordination of Care Details-Self Mgmt counseling: Discussed issues related to sleep hygiene light explore exposure daily walks Medication management counseling: Effectiveness and Side effects Diagnosis and Prognosis Counseling: Accuracy of diagnosis, Impact of diagnosis on life functions, Problematic behaviors secondary to diagnosis and Adequacy of current interventions Details: I spent [32] minutes reviewing the record, seeing the patient and documenting in the medical record. Counseling provided to the patient/caregiver as outlined below. Addressed patient/caregiver concerns regarding current medication regime including effective adherence. Addressed patient/caregiver concerns regarding diagnosis and prognosis including accuracy of diagnosis, prognosis over time, impact of diagnosis. Addressed patient/caregiver concerns regarding impact of recent stressors. [facility] Medical History Vascular dementia with anxiety Dementia Nocturnal hypoxia Severe recurrent major depression w/psychotic features, mood-congruent Has daytime drowsiness Preoperative examination Elevated glucose Screening for colon cancer Screening for diabetes mellitus Obesity (BMI 30-39.9) Confused but orients easily Depression, major, severe recurrence Abnormal serum protein electrophoresis Mild recurrent major depression Anxiety and depression Encounter for Medicare annual wellness exam Removal of nell Depression with anxiety Abdominal distention Weight gain Major depression, recurrent, full remission POONAM (generalized anxiety disorder) Hypothyroidism Hyperparathyroidism Multinodular thyroid Vitamin D deficiency Osteoporosis Surgical History Hx of colonoscopy Hx of kyphoplasty Hx of section Family History Father Myocardial infarction CVD (cardiovascular disease) Mother Dementia Alzheimer disease Other Mental health disorder Social History Household Members: Spouse Housing: House Do you presently have visiting nurse or other home services: Yes (Visiting nurse to fill medications) Alcohol intake: never Comment: 1:1 sitter at bedside Patient Tobacco Use Status: Never used Tobacco e-Cigarette/Vaping Use: Never Used Second Hand Smoke Exposure: No Advance Directives Date on File: 09/04/23 service: No Current occupational status: unemployed Sexual orientation: Straight/Heterosexual Cognitive needs: No Hearing needs: No Social History: Patient disabled has 1 son. Chronic anxiety has stable relationship with her mostly has not worked Substance History: none Trauma History: None noted Coding Level of Care Code Est Pt Level 4 (18516) Diagnoses POONAM (generalized anxiety disorder) F41.1 Major depressive disorder, recurrent severe without psychotic features F33.2 Vascular dementia with anxiety F01.54 Akathisia G25.71
== END 2025-03-29 14:54 | disposition home or self-care (01) ==
LOC: HO.HOP 13:22
PROVIDERS: PCP Nurse Practitioner Family; Visit Provider Psychiatry & Neurology Psychiatry
DX: F41.1 Generalized anxiety disorder (principal); F33.2 Major depressive disorder, recurrent severe without psychotic features; F01.54 Vascular dementia, unspecified severity, with anxiety; G25.71 Drug induced akathisia
CPT/HCPCS: 99214

== ENCOUNTER → 2025-03-29 13:22 | Outpatient (BNVA) | payer MEDICARE, SELFPAY | PROVIDERS: PCP Nurse Practitioner Family; Visit Provider Psychiatry & Neurology Psychiatry | DX: F41.1 Generalized anxiety disorder (principal); F33.2 Major depressive disorder, recurrent severe without psychotic features; F01.54 Vascular dementia, unspecified severity, with anxiety; G25.71 Drug induced akathisia | CPT/HCPCS: 99212 ==

== ENCOUNTER 2025-04-06 11:32 | Outpatient (AMB) | payer MEDICARE, SELFPAY ==
--- OUTSIDE RECORDS SUMMARY | 2025-04-05 09:32 | XMS_ITS | Continuity of Care Document ---
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 - Active Rx per psychiatry. gabapentin 100 mg capsule Rx per psychiatry: Take 1 capsule by mouth daily in the morning and 2 capsules (200mg) by mouth daily at bedtime. - Active Rx per psychiatry lurasidone 20 mg tablet Script per psychiatry: Take 1 tablet by mouth once daily. - Active Decrease per psych clomipramine 50 mg capsule Rx per psychiatry: Take 1 capsule by mouth once daily at bedtime. - Active Rx per psychiatry ferrous sulfate 324 mg (65 mg iron) tablet,delayed release Take 1 tablet by mouth once daily. - Active Rx per psych Vitamin C 500 mg tablet Take 1 tablet by mouth once daily. - Active Rx per psych hydroxyzine HCl 25 mg tablet Script per psychiatry: Take 1 tablet by mouth once daily at bedtime NEEDED for anxiety. - Active 03/2025: Per inpatient psychiatry discharge Calcium 500 + D 500 mg-5 mcg (200 unit) tablet Take 1 tablet by mouth twice daily. - Active Vitamin B-1 100 mg tablet Take 1 tablet by mouth twice daily. - Active Per pre-enrollment. One Daily Plus Minerals tablet Take 1 tablet by mouth once daily. - Active Belsomra 15 mg tablet Rx per Dr. Willett. Take 1 tablet by oral route once per night within 30 minutes of bedtime. (Only if at least 7 hrs remain before time of waking). - Active 02/01/25: Rx per Dr. Willett. acetaminophen 325 mg tablet Take 2 tablets by mouth every 6 hours NEEDED for pain/body aches. - Active atorvastatin 20 mg tablet Take 1 tablet by mouth once daily at night. - Active donepezil 10 mg tablet Take 1 tablet by mouth once daily at bedtime. - Active Per pre-enrollment, script per Dr. Willett (psychiatry). folic acid 1 mg tablet Take 1 tablet by mouth once daily. - Active Per pre-enrollment. melatonin 5 mg tablet Take 1 tablet by mouth once daily at bedtime. - Active Per pre-enrollment, Dr. Willett (psychiatry). propranolol 10 mg tablet Take 1 tablet by mouth 3 times daily. - Active Per pre-enrollment, Dr. Willett (psychiatry). Advance Directives Directive Yes / No Effective Date File Name No Information Encounters Encounter Description Practice Location Reason(s) For Visit Diagnoses Date Provider [facility] [address] [facility], [id number], tel:[phone] [place] No Information 5 Pitsiladis Liss. [address] [place], [place], [id number], [place]. tel:[phone] [facility], [address] [facility] [address] [place] [address], [id number], [place] tel:[phone] [place] No Information 5 Pitsiladis Liss. [address] [place], [place], [id number], [place]. tel:[phone] [facility], [facility], [place], [place], [id number], [place] tel:[phone] [place] [facility] Evaluation (chief complaint) POONAM (generalized anxiety disorder)Severe episode of recurrent major depressive disorder, without psychotic features 5 Pitsiladis Liss. [address] [place], [place], [id number], [place]. tel:[phone] [facility], [address] [facility], [place], [place], [id number], [place] tel:[phone] [place] [facility] Evaluation (chief complaint) No Information 5 Pitsiladis Liss. [address] [place], [place], [id number], [place]. tel:[phone] [facility], [address] [facility], [place], [place], [id number], [place] tel:[phone] [place] No Information 5 Pitsiladis Liss. [address] [place], [place], [id number], [place]. tel:[phone] [facility], [address] [facility], [place], [place], [id number], [place] tel:[phone] [place] Encounter for rehabilitation evaluation 5 Javier Romano. [address] [place], [place], [id number], [place]. tel:[phone] [facility], [address] [facility] [address], [place], [place], [id number], [place] tel:[phone] [place] No Information 5 Pitsiladis Liss. [address] [place], [place], [id number], [place]. tel:[phone] [facility], [address] [facility], [place], [place], [id number], [place] tel:[phone] [place] Encounter for nutritional assessmentAt risk for inadequate oral intakeAbnormal weight loss 5 Anna Owens. [address], [place], [id number], [place]. tel:[phone] [facility], [address] [facility], [place], [place], [id number], [place] tel:[phone] [place] Semi-Annual (chief complaint)S thai-Annual (chief complaint) Recurrent major depressive disorder, in partial remissionGAD (generalized anxiety disorder)Mixed hyperlipidemiaStage 3a chronic kidney diseasePrediabetesHypot hyroidism, unspecified typeOsteoporosis without current pathological fracture, unspecified osteoporosis typeHyperparathyroidism Mild dementia with other behavioral disturbance, unspecified dementia type 5 Pitsiladis Liss. [address] [place], [place], [id number], [place]. tel:[phone] [facility], [facility], [place], [place], [id number], [place] tel:[phone] [place] [facility] Evaluation (chief complaint) Moderate episode of recurrent major depressive disorderAkathisiaInsomn ia, unspecified type 5 Pitsiladis Liss. [address], [place], [place], [id number], [place]. tel:[phone] [facility], [facility], [place], [place], [id number], [place] tel:[phone] [place] Acute Visit (chief complaint) Recurrent major depressive disorder, in partial remissionGAD (generalized anxiety disorder) 5 Pitsiladis Liss. [address] [place], [place], [id number], [place]. tel:[phone] [facility], [facility], [place], [place], [id number], [place] tel:[phone] [place] No Information Aug-06 09- 5 Pitsiladis Liss. [address] [place], [place], [id number], [place]. tel:[phone] [facility], [facility], [place], [place], [id number], [place] tel:[phone] [place] Encounter for nutritional assessment Mar-0 3-202 5 Normile Keena. [address], [place], [place], [id number], [place]. tel:[phone] [facility], [address], [id number], [place] tel:[phone] [place] Semi-Annual (chief complaint) Pulmonary noduleMixed hyperlipidemiaPrediabet esHypothyroidism, unspecified typeStage 3a chronic kidney diseaseMild dementia with other behavioral disturbance, unspecified dementia typeOsteoporosis, unspecified osteoporosis type, unspecified pathological fracture presenceOther specified personal risk factors, not elsewhere classifiedRecurrent major depressive disorder, in partial remissionGAD (generalized anxiety disorder)Hyperparathyro idismVitamin D deficiency Aug- 5 Pitsiladis Liss. [address], [place], [place], [id number], [place]. tel:[phone] [facility], [address] [address], [place], [place], [id number], [place] tel:[phone] [place] [facility] Evaluation (chief complaint) History of UTIMixed hyperlipidemiaHypothyro idism, unspecified typeOsteoporosis without current pathological fracture, unspecified osteoporosis typeHyperparathyroidism Viral gastroenteritisStage 3a chronic kidney diseaseMild dementia with other behavioral disturbance, unspecified dementia typeRecurrent major depressive disorder, in full remissionGAD (generalized anxiety disorder) 5 Pitsiladis Liss. [address] [place], [place], [id number], [place]. tel:[phone] [facility], [address], [id number], [place] tel:[phone] [place] Recurrent major depressive disorder, in partial remissionGAD (generalized anxiety disorder) 4 Pitsiladis Liss. [address], [place], [place], [id number], [place]. tel:[phone] [facility], [address], [id number], [place] tel:[phone] [place] Acute Visit (chief complaint) Genitourinary syndrome of menopause 4 Pitsiladis Liss. [address] [place], [place], [id number], [place]. tel:[phone] [facility], [address] [facility] [address], [place], [place], [id number], [place] tel:[phone] [place] Follow-up (chief complaint) Shortness of breathRecurrent major depressive disorder, in partial remissionGAD (generalized anxiety disorder)Insomnia, unspecified type 4 Pitsiladis Liss. [address] [place], [place], [id number], [place]. tel:[phone] [facility], [facility], [place], [place], [id number], [place] tel:[phone] [place] Follow-up (chief complaint) Mixed hyperlipidemiaOsteoporo sis without current pathological fracture, unspecified osteoporosis typeAdvanced directives, counseling/discussion 4 Pitsiladis Liss. [address] [place], [place], [id number], [place]. tel:[phone] [facility], [facility] [address] [place] [address], [id number], [place] tel:[phone] [place] Other specified personal risk factors, not elsewhere classifiedUnspecified visual disturbance Feb- 4 Pitsiladis Liss. [address] [place], [place], [id number], [place]. tel:[phone] [facility], [address] [facility] [address], [place], [place], [id number], [place] tel:[phone] [place] No Information Feb- 4 Pitsiladis Liss. [address] [place], [place], [id number], [place]. tel:[phone] [facility], [facility] [address] [place] [address], [id number], [place] tel:[phone] [place] Major depressive disorder, recurrent, in partial remission Sep- 4 Pitsiladis Liss. [address], [place], [id number], [place]. tel:[phone] [facility], [address] [facility], [place], [place], [id number], [place] tel:[phone] [place] Encounter for rehabilitation evaluation Sep-0 4 Javier Romano. [address] [place], [place], [id number], [place]. tel:[phone] [facility], [address] [facility], [place], [place], [id number], [place] tel:[phone] [place] Encounter for rehabilitation evaluation Sep-0 4 Gerardo Steve. 101 [facility], [place], [address]. tel:[phone] [facility], [address] [facility] [address], [place], [place], [id number], [place] tel:[phone] [place] Encounter for nutritional assessmentClass 1 obesity with serious comorbidity and body mass index (BMI) of 32.0 to 32.9 in adult, unspecified obesity typeBody mass index [BMI] 32.0-32.9, adult Sep-0 4 Normile Keena. [address], [place], [place], [id number], [place]. tel:[phone] [facility], [address] [facility], [place], [place], [id number], [place] tel:[phone] [place] Post Enrollment Evaluation (chief complaint) History of mammogramStage 3a chronic kidney diseasePrediabetesRecur rent major depressive disorder, in partial remissionHypothyroidism , unspecified typeVitamin D deficiencyHyperparathyr oidismHistory of UTIGAD (generalized anxiety disorder)Mixed hyperlipidemiaObesity, Class I, BMI 30.0-34.9 (see actual BMI)BMI 32.0-32.9,adultLumbar spondylosisMild dementia with other behavioral disturbance, unspecified dementia typeOsteoporosis without current pathological fracture, unspecified osteoporosis type Sep-0 4 Pitsiladis Liss. [address] [place], [place], [id number], [place]. tel:[phone] [facility], [address] [address], [place], [place], [id number], [place] tel:[phone] [place] No Information Sep-0 4 Frantz Brink. [address] [place], [place], [id number], [place]. tel:[phone] Family History Family Member Type Diagnosis Age At Onset No Information Immunizations Vaccine Date Status Comments Fluzone High Dose administered Source: New Immunization Record Zoster recombinant subunit administered [...] Insurance type Covered green party ID Authoriza tion(s) [facility] 16 [id number] [facility] 16 [id number] [facility] 16 [id number] [facility] 16 [id number] [facility] 16 [id number] Social History Type Description Quantity Date Captured Comments Sex Female Smoking Status No Information Chief Complaint And Reason For Visit No Information Plan Of Treatment Date Type Action Status Referral Ordered: Supply Cataloguer (related to Visual changes) ordered Referral Ordered: Referrals: Dentistry. Evaluate and treat ordered Referral Ordered: Referrals: Supply Cataloguer. Evaluate and treat ordered Referral Referred To: Dr. Willett Ordered: Referrals: Psychiatry. Dr. Willett Appointment date/timeframe: 02/16/2024 ordered Future Order: Lab Order Urinalys Nomi peña ([id number]), Ordered on: Ordered History Of Present Illness Encounter Date Complaint History Of Prese nt Illness Post Hospital Evaluation Judy loco s a 74 year old female who is seen today for a post-hospital evaluation. In review of recent events, Judy was inpatient at [facility] psychiatric unit from 03/06/25-03/21/25 with reports of being unable to sleep at home resulting in worsening of her depression and anxiety symptoms, fatigue. She gradually had some improvements inpatient and was seen by staff to be sleeping through the night though she continued to report she was not sleeping at all. During her admission, she was seen by respiratory therapy and evaluation showed she does not need oxygen at night. Today in the clinic she is accompanied by her Rahul. Judy is anxious and approaches me closely when I enter the room. She is tearful and tells me she has not slept and she needs me to call Dr. Willett. Rahul reports Judy did in fact sleep overnight and she frequently rests on the couch but she continues to feel as though she has not slept at all. I reassured Judy that we will arrange her follow up with Dr. Willett and that we would like her to rest when she gets home. Discussed recent medication changes which [facility] nursing is assisting with to make sure they are given correctly. Judy was able to calm down with reassurance and felt comfortable going home. Post Hospital Evaluation Semi-Annual Judy is a 74-ye ar-old female who presents today for a semi-annual visit. She is accompanied by her (Rahul) who waits in the waiting area. Judy enrolled in the [facility] program on 02/07/24. Allergies: Benadryl; gets dizzy. No anaphylaxis. She has never been advised to carry an Epi pen. Immunizations: UTD. History of ER visits/Falls/SNF/Hospitalizations:-Admitted to [facility] from 07/04-07/13/24 with severe depression. -Admitted to [facility] Psych 11/08/24-12/01/24 with severe depression episode. Specialists:-Dr. Fausto Willett at [facility], psychiatrist. Judy has been with Dr. [...] Social: Judy lives in the community in [place] with her , just the 2 of them. They have always lived in the area. They have family in [place] and [place]. Rahul has a son and daughter from [...] they think possibly 1 year ago at [facility]. Bone density: Records (dated 03/03/24 page 47) [...] Dr. Willett adjusts her medications as needed. Semi-Annual Post Hospital Evaluation Judy loco s a 74 year old female who is seen today for a post-hospital evaluation. She is accompanied today by her . In review of recent events, Judy was admitted to [facility] psych from 11/08-12/01 with worsening depression symptoms. [...] Immunizations: UTD. History of ER visits/Falls/SNF/Hospitalizations:-Admitted to [facility] Psych from 07/04-07/13/24 with severe depression. -06/18/24 To [facility] ER with vomiting, treated for viral GI illness. -Before COVID, was on 5th floor x 1.5 years at [place] on their psychiatric unit. Then was for a few months on 1st floor in a unit x few months for psychiatric concerns. Specialists:-Dr. Fausto Willett at [facility], psychiatrist. Judy has been with Dr. [...] Social: Judy lives in the community in [place] with her , just the 2 of them. They have always lived in the area. They have family in [place] and [place]. Rahul has a son and daughter from [...] they think possibly 1 year ago at [facility]. Bone density: Unclear when her last [...] facet joint arthropathy . DEXA ordered at [facility]; message sent to follow up. Mobility: Walks [...] of recent events, Judy was seen at [facility] on 06/18/24 with vomiting and LLQ [...] pain.-Drink lots of water. -Call us at [phone] if you feel you are getting worse [...] today.History of ER visits/Falls/SNF/Hospitalizations:-05/25/23 -06/14/23: Inpatient at [facility]. No other hospitalizations, ER visits since then. -Before COVID, was on 5th floor x 1.5 years at [place] on their psychiatric unit. Then was for a few months on 1st floor in a unit x few months for psychiatric concerns. Specialists:-Dr. Fausto Willett at [facility]. Seeing him tomorrow. He is a [...] Boris Rodrigues (spouse and secondary is Cristela Grantiz (son). HCP not invoked as far as patient and spouse are aware.-MOLST: No MOLST on file at this time. Briefly discussed with plan to complete form at [facility] follow up visit in 1 month. Social: Judy lives in the community in [place] with her , just the 2 of them. They have always lived in the area. They have family in [place] and [place]. Fugi's has a son and daughter from a [...] they think possibly 1 year ago at [facility]. Bone density: Unclear when her last DEXA was. Not seen in pre-enrollment records from [place]. Osteoporosis listed in her problem list with [...] Instruction Rupesh harris -Per pre-enrollment (01/31/22 page 16) described as MDD, recurrent severe without psychotic features. Per pre-enrollment, has been treated in the past with ECT, TMS, multiple medication regimens.-She is intermittently admitted to [place] psychiatric inpatient unit for worsening depression and anxiety, lack of sleep. -Continue psychiatric medications as ordered and managed by Dr. Willett. We will request updated notes. Related to Severe episode of recurrent major depressive disorder, without psychotic features -Per pre-enrollment (01/31/22 page 24) described as generalized anxiety disorder. She has a complicated psychiatric history and follows closely with her psychiatrist Dr. Willett. Per pre-enrollment, has been treated in the past with ECT, TMS, multiple different medication regimens/adjustments.-Ongoing rumination about not sleeping at night despite being witnessed to have slept. -Continue following with Dr. Willett given complex psychiatric history. We will also keep in close contact with him and request notes following their appointments. -Encouraged her to report changes in symptoms early on so that we can attempt to support her in the community rather than resorting to inpatient hospitalization. Related to POONAM (generalized anxiety disorder) -Per pre-enrollment (01/31/22 page 38) states d [...] [place], [place]. Admitted in early 2023 to [place] with a nxiety, racing thoughts, insomnia . [...] [place]ox[place], [place]. -She is intermittently admitted to [place] psychiatric inpatient unit for worsening depression. She [...] type -Judy is intermitte ntly admitted to [place] psychiatric inpatient unit for worsening depression. She [...] [place]ox[place], [place]. -She is intermittently admitted to [place] psychiatric inpatient unit for worsening depression. She [...] [place], [place]. Admitted in early 2023 to [place] with a nxiety, racing thoughts, insomnia . [...] [place], [place]. Admitted in early 2023 to [place] with a nxiety, racing thoughts, insomnia . [...] [place], [place]. Admitted in early 2023 to [place] with a nxiety, racing thoughts, insomnia . [...] [place], [place]. Admitted in early 2023 to [place] with a nxiety, racing thoughts, insomnia . [...] [place], [place]. Admitted in early 2023 to [place] with a nxiety, racing thoughts, insomnia . [...] [place], [place]. Admitted in early 2023 to [place] with a nxiety, racing thoughts, insomnia . [...] [place], [place]. Admitted in early 2023 to [place] with a nxiety, racing thoughts, insomnia . [...] [place], [place]. Admitted in early 2023 to [place] with a nxiety, racing thoughts, insomnia . [...] is possible however the history in the [facility] records suggests possible FARNAZ. Will explore possibility [...] [place]ox[place], [place]. Admitted in early 2023 to [place] with a nxiety, racing thoughts, insomnia . [...] [place]ox[place], [place]. Admitted in early 2023 to [place] with a nxiety, racing thoughts, insomnia . [...] medications, hypothyroidism. -Routine screening labs. Periodic weights. Landscaper Helper to see her for screening and counseling if indicated. Related to BMI 32.0-32.9,adult -Per pre-enrollment (01/31/22 pg 30).-BMI 32.2 today. -Routine screening labs. Periodic weights. Landscaper Helper to see her for screening and counseling [...] Doxepin, [place]. Admitted in early 2023 to [place] with a nxiety, racing thoughts, insomnia . [...] Related to POONAM (generalized anxiety disorder) -At [facility] appt, jinny t and spouse report she [...] She did have parathyroid imaging in 03/2019 ([facility]) with results stating There is homogeneous [...] Doxepin, [place]. Admitted in early 2023 to [place] with a nxiety, racing thoughts, insomnia . [...] meal intakes, ill-fitting dentures, weight loss trend. Edailyn will have stable weight through next review. [...]
--- NOTE | 2025-04-06 12:27 | A.OFFPSYCH_ITS ---
Intake Intake Visit Reasons: depression Allergies risperidone (From Risperdal) Allergy (Intermediate, Verified 03/06/25 11:22) UNKNOWN Sulfa (Sulfonamide Antibiotics) Allergy (Intermediate, Verified 03/06/25 11:22) rash From BENADRYL Allergy (Intermediate, Uncoded 11/08/24 13:12) DIZZY Medication List - Last Reconciled 04/09/25 by Broderick Willett MD ascorbic acid (vitamin C) (Vitamin C) 500 mg PO DAILY atorvastatin 20 mg PO DAILY calcium carbonate-vitamin D3 500 mg-5 mcg (200 unit) (Oyster Shell Calcium- Vitamin D3) 1 tab PO BID clomipramine 50 mg (2 x 25 mg) PO BEDTIME 30 days donepezil 10 mg PO BEDTIME ferrous sulfate 324 mg PO DAILY folic acid 1 mg PO DAILY gabapentin 100 mg PO DAILY gabapentin 300 mg (3 x 100 mg) PO BEDTIME lorazepam 1 mg PO BEDTIME lorazepam 0.5 mg PO DAILY 30 days melatonin 10 mg PO BEDTIME multivitamin 1 tab PO DAILY olanzapine 2.5 mg PO BID propranolol 10 mg See Protocol PO TID ropinirole 0.25 mg PO BEDTIME suvorexant (Belsomra) 15 mg PO BEDTIME PRN thiamine mononitrate (vit B1) 100 mg PO BID 30 days HPI- Psychiatric Chief Complaint: depression HPI Narrative: Patient seen in psychiatric follow-up with her . Patient is a 74-year-old female with a history of chronic depression aspects of bipolar 2 mixed states with recurrent vascular dementia. Patient has required ECT in the past. Patient currently has not been going to [place] but according to her has been taking some walks. Patient herself complains of ongoing severe depression and continues to complain of difficulty with sleep although that is very hard to differentiate she has been complaining of that ongoing for a number of months and at times has a appeared to be sleeping but has been irritable and dysphoric during the day. Patient does have what appears to be tardive akathisia versus TD. Past Psychiatric History: Patient with long history of recurrent depression with multiple prior psychiatric hospitalizations. 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 no classic bipolar symptoms past d epressive psychotic episodes not for a number of years Past medication trials: remeron, doxapine, vraylar, seroquel, latuda, belsomra, propanolol, clonazepam Mental Status Exam Mental Status Exam Narrative: Appearance: Casually dressed anxious looking constant motion of feet and rocking Behavior: cooperative and friendly Psychomotor: no agitation or retardation, Speech: slightly fast, normal rate/rhythm/volume, spontaneous TP: linear TC: Focused over and over again on inability to sleep Mood: I am depressed Affect: congruent SI: denies HI: denies VH/AH: none Delusions: none Insight/judgment: fair x 2. Memory/cog: alert, oriented to month, place, situation. Assessment and Plan Assessment & Plan (1) Major depressive disorder, recurrent episode: Status: Acute Code(s): F33.9 - Major depressive disorder, recurrent, unspecified (2) Insomnia: Status: Acute Qualifiers: Insomnia type: unspecified Qualified Code(s): G47.00 - Insomnia, unspecified Code(s): G47.00 - Insomnia, unspecified (3) Vascular dementia with anxiety: Status: Acute Code(s): F01.54 - Vascular dementia, unspecified severity, with anxiety Plan Increase clomipramine to 50 mg daily ropinirole 0.25 mg at bedtime. Monitor response to increase clomipramine see if helpful for depression or if discusses increased irritability agitation. Medications: New ropinirole administer 1-3 hours before bedtime 0.25 mg PO BEDTIME 30 tabs 2RF Changed From clomipramine 25 mg PO BEDTIME 30 days 30 caps 1RF To clomipramine 50 mg (2 x 25 mg) PO BEDTIME 60 caps 2RF 30 days Counseling and coordination of Care Medication management counseling: Effectiveness, Side effects and Dosing range Diagnosis and Prognosis Counseling: Adequacy of current interventions Details: I spent [35] minutes reviewing the record, seeing the patient and documenting in the medical record. Counseling provided to the patient/caregiver as outlined below. Addressed patient/caregiver concerns regarding current medication regime including effective adherence. Addressed patient/caregiver concerns regarding diagnosis and prognosis including accuracy of diagnosis, prognosis over time, impact of diagnosis. Addressed patient/caregiver concerns regarding impact of recent stressors. [facility] Medical History Vascular dementia with anxiety Dementia Nocturnal hypoxia Severe recurrent major depression w/psychotic features, mood-congruent Has daytime drowsiness Preoperative examination Elevated glucose Screening for colon cancer Screening for diabetes mellitus Obesity (BMI 30-39.9) Confused but orients easily Depression, major, severe recurrence Abnormal serum protein electrophoresis Mild recurrent major depression Anxiety and depression Encounter for Medicare annual wellness exam Removal of nell Depression with anxiety Abdominal distention Weight gain Major depression, recurrent, full remission POONAM (generalized anxiety disorder) Hypothyroidism Hyperparathyroidism Multinodular thyroid Vitamin D deficiency Osteoporosis Surgical History Hx of colonoscopy Hx of kyphoplasty Hx of section Family History Father Myocardial infarction CVD (cardiovascular disease) Mother Dementia Alzheimer disease Other Mental health disorder Social History Household Members: Spouse Housing: House Do you presently have visiting nurse or other home services: Yes (Visiting nurse to fill medications) Alcohol intake: never Comment: 1:1 sitter at bedside Patient Tobacco Use Status: Never used Tobacco e-Cigarette/Vaping Use: Never Used Second Hand Smoke Exposure: No Advance Directives Date on File: 09/04/23 service: No Current occupational status: unemployed Sexual orientation: Straight/Heterosexual Cognitive needs: No Hearing needs: No Social History: Patient disabled has 1 son. Chronic anxiety has stable relationship with her mostly has not worked Substance History: none Trauma History: None noted Coding Level of Care Code Est Pt Level 3 (10187) Therapy 30m w/E&M (33613) Diagnoses Major depressive disorder, recurrent episode F33.9 Insomnia, unspecified type G47.00 Insomnia type: unspecified Vascular dementia with anxiety F01.54
== END 2025-04-06 14:20 | disposition home or self-care (01) ==
LOC: HO.HOP 11:32
PROVIDERS: PCP Nurse Practitioner Family; Visit Provider Psychiatry & Neurology Psychiatry
DX: F33.9 Major depressive disorder, recurrent, unspecified (principal); G47.00 Insomnia, unspecified; F01.54 Vascular dementia, unspecified severity, with anxiety
CPT/HCPCS: 90833; 99213

== ENCOUNTER → 2025-04-06 11:32 | Outpatient (BNVA) | payer MEDICARE, SELFPAY | PROVIDERS: PCP Nurse Practitioner Family; Visit Provider Psychiatry & Neurology Psychiatry | DX: F33.9 Major depressive disorder, recurrent, unspecified (principal); G47.00 Insomnia, unspecified; F01.54 Vascular dementia, unspecified severity, with anxiety | CPT/HCPCS: 99212 ==

== ENCOUNTER 2025-05-12 12:18 | Outpatient (AMB) | payer MEDICARE, SELFPAY ==
--- NOTE | 2025-05-12 13:39 | MHC.OFFVISPS ---
Intake Intake Visit Reasons: depression Intake Note: Patient here for management of mood disorder with chronic in insomnia She is here with her [employer] Service Advisor Required: No Allergies risperidone (From Risperdal) Allergy (Intermediate, Verified 03/06/25 11:22) UNKNOWN Sulfa (Sulfonamide Antibiotics) Allergy (Intermediate, Verified 03/06/25 11:22) rash From BENADRYL Allergy (Intermediate, Uncoded 11/08/24 13:12) DIZZY Medication List - Last Reconciled 05/12/25 by Broderick Willett MD ascorbic acid (vitamin C) (Vitamin C) 500 mg PO DAILY atorvastatin 20 mg PO DAILY calcium carbonate-vitamin D3 500 mg-5 mcg (200 unit) (Oyster Shell Calcium-Vitamin D3) 1 tab PO BID clomipramine 50 mg (2 x 25 mg) PO BEDTIME 30 days donepezil 10 mg PO BEDTIME ferrous sulfate 324 mg PO DAILY folic acid 1 mg PO DAILY gabapentin 300 mg PO BEDTIME 90 days gabapentin 100 mg PO DAILY 90 days lorazepam 0.5 mg PO DAILY 30 days lorazepam 1 mg PO BEDTIME melatonin 10 mg PO BEDTIME multivitamin 1 tab PO DAILY olanzapine 2.5 mg PO BID propranolol 10 mg See Protocol PO TID ropinirole 0.25 mg PO BEDTIME suvorexant (Belsomra) 15 mg PO BEDTIME PRN thiamine mononitrate (vit B1) 100 mg PO BID 30 days HPI- Psychiatric Chief Complaint: depression HPI Narrative: The patient is a 74-year-old female who has a history of recurrent depression, at times psychotic depression at times mixed states complicated by vascular dementia. Patient has felt significantly improved over the past few weeks her sleep has improved she is more alert awake outgoing and engaged with her . She is going to an adult day health program once a week on and this appears to have been very beneficial. She continues to have VNA. Last time she was seen clomipramine was increased to 50 mg she has continued on olanzapine 2.5 mg b.i.d. she is having less restlessness and movements of her legs and torso. Obsessional anxiety has significantly improved. Denies being overmedicated during the day and her also states that she has had significant improvement in mood which shows up on her PHQ-9 and POONAM Past Psychiatric History: Patient with long history of recurrent depression with multiple prior psychiatric hospitalizations. 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 Grooming adequate smiling good eye contact some rocking motion occasionally noted. No orofacial dyskinesia. Mood good with a full affect. No hallucinations or delusional material future oriented content positive for feeling better sleeping better happy about going to program once a week on . Impulse control adequate knows place day understands she is here for treatment of depression insomnia form of thought linear somewhat concrete Assessment and Plan Assessment & Plan (1) POONAM (generalized anxiety disorder): Status: Acute Code(s): F41.1 - Generalized anxiety disorder (2) Major depression, recurrent, full remission: Status: Acute Code(s): F33.42 - Major depressive disorder, recurrent, in full remission (3) Vascular dementia with anxiety: Status: Acute Code(s): F01.54 - Vascular dementia, unspecified severity, with anxiety (4) Akathisia: Status: Acute Code(s): G25.71 - Drug induced akathisia Plan Improved mood continue olanzapine Anafranil dopamine agonist at bedtime denies feeling overmedicated does not appear delirious or sedated. Improved functioning in mood getting well with her both quite happy with how things are going Counseling and coordination of Care Details-Self Mgmt counseling: Issues related to behavioral activation light exposure Medication management counseling: Effectiveness, Side effects and Dosing range Diagnosis and Prognosis Counseling: Impact of diagnosis on life functions and Adequacy of current interventions Details: I spent [30] minutes reviewing the record, seeing the patient and documenting in the medical record. Counseling provided to the patient/caregiver as outlined below. Addressed patient/caregiver concerns regarding current medication regime including effective adherence. Addressed patient/caregiver concerns regarding diagnosis and prognosis including accuracy of diagnosis, prognosis over time, impact of diagnosis. Addressed patient/caregiver concerns regarding impact of recent stressors. [facility] Medical History Vascular dementia with anxiety Dementia Nocturnal hypoxia Severe recurrent major depression w/psychotic features, mood-congruent Has daytime drowsiness Preoperative examination Elevated glucose Screening for colon cancer Screening for diabetes mellitus Obesity (BMI 30-39.9) Confused but orients easily Depression, major, severe recurrence Abnormal serum protein electrophoresis Mild recurrent major depression Anxiety and depression Encounter for Medicare annual wellness exam Removal of [place] Depression with anxiety Abdominal distention Weight gain Major depression, recurrent, full remission POONAM (generalized anxiety disorder) Hypothyroidism Hyperparathyroidism Multinodular thyroid Vitamin D deficiency Osteoporosis Surgical History Hx of colonoscopy Hx of kyphoplasty Hx of section Family History Father Myocardial infarction CVD (cardiovascular disease) Mother Dementia Alzheimer disease Other Mental health disorder Social History Household Members: Spouse Housing: House Do you presently have visiting nurse or other home services: Yes (Visiting nurse to fill medications) Alcohol intake: never Comment: 1:1 sitter at bedside Patient Tobacco Use Status: Never used Tobacco e-Cigarette/Vaping Use: Never Used Second Hand Smoke Exposure: No Advance Directives Date on File: 09/04/23 service: No Current occupational status: unemployed Sexual orientation: Straight/Heterosexual Cognitive needs: No Hearing needs: No Social History: Patient disabled has 1 son. Chronic anxiety has stable relationship with her mostly has not worked Substance History: none Trauma History: None noted Coding Level of Care Code Est Pt Level 4 (11226) Diagnoses POONAM (generalized anxiety disorder) F41.1 Major depression, recurrent, full remission F33.42 Vascular dementia with anxiety F01.54 Akathisia G25.71
== END 2025-05-12 16:07 | disposition home or self-care (01) ==
LOC: HO.HOP 12:18
PROVIDERS: PCP Nurse Practitioner Family; Visit Provider Psychiatry & Neurology Psychiatry
DX: F41.1 Generalized anxiety disorder (principal); F33.42 Major depressive disorder, recurrent, in full remission; F01.54 Vascular dementia, unspecified severity, with anxiety; G25.71 Drug induced akathisia
CPT/HCPCS: 99214

== ENCOUNTER → 2025-05-12 12:18 | Outpatient (BNVA) | payer MEDICARE, SELFPAY | PROVIDERS: PCP Nurse Practitioner Family; Visit Provider Psychiatry & Neurology Psychiatry | DX: F41.1 Generalized anxiety disorder (principal); F33.42 Major depressive disorder, recurrent, in full remission; F01.54 Vascular dementia, unspecified severity, with anxiety; G25.71 Drug induced akathisia | CPT/HCPCS: 99212 ==